=== PATIENT | female | born 1955 | race Caucasian/White ===

== ENCOUNTER 2016-06-28 21:20 | Emergency (ER) | payer OTHER ==
[2016-06-28 21:29] VITALS: BP 135/83; PULSE 83; TEMP 98; BMI 25.6
--- NOTE | 2016-06-28 21:31 | PDOC ---
Rapid Medical Evaluation Chief Complaint: Respiratory Time Seen by Provider: 06/28/16 21:30 Medical Evaluation: Allergies Allergy/AdvReac Type Severity Reaction Status Date / Time levofloxacin [From Levaquin] Allergy Mild Itching Verified 06/28/16 21:28 Vital Signs Temp Pulse Resp BP Pulse Ox 98 F 83 18 135/83 94 L 06/28/16 21:28 06/28/16 21:28 06/28/16 21:28 06/28/16 21:28 06/28/16 21:28 06/28/16 21:30 I have performed a brief in-person evaluation of this patient. The patient presents with a chief complaint of: copd exacerbation, back pain Pertinent physical exam findings: + wheezing diffusely I have ordered the following: cxr, cbc, cmp, troponin The patient will proceed to the ED for further evaluation.
[2016-06-28 21:56] LABS: BASOPHIL 0.7 % (0-2.0); EOSINOPHIL 2.4 % (0-4.5); MCH 29.9 pg (25.7-33.7); MCHC 33.8 g/dl (32.0-36.0); MEAN CELL VOLUME 88.5 fl (80-96); MEAN PLT VOLUME 7.5 fl (7.5-11.1); NEUTROPHILS 70.7 % (42.8-82.8); PLATELET COUNT 314 K/MM3 (134-434); RDW 18.2 % (11.6-15.6)
[2016-06-28] MEDS ORDERED: ALBUTEROL SO4 2.5/IPRATROPIUM 0.5 INH SOL 3 ML VIAL.NEB. NEB STA ×3 (22:27→23:26)
--- NOTE | 2016-06-28 22:27 | PDOC ---
History of Present Illness - General History Source: Patient Exam Limitations: No Limitations - History of Present Illness Initial Comments: 06/28/16 22:34 The patient is a 61 year old female with significant past medical history of multiple visits emergency department secondary to drug seeking behavior, COPD, asthma, hypertension, hyperlipidemia, CAD, hypothyroidism, renal colic, renal insufficiency, anemia, ovarian CA, anxiety, and depression who presents to the ED with copd exacerbation secondary to continuation of smoking. Patient reports having worsening SOB and right upper thoracic pain. The patient denies fever, chills, cough, diaphoresis, and chest pain. The patient denies abdominal pain, nausea, vomiting, and diarrhea. Allergies: levofloxacin Social History: Current smoker (PPD for 30+ years) Past Surgical History: B/L hip replacement PCP: Dr. Callie Landry <Mame Barahona - Last Filed: 06/28/16 22:34> - General History Source: Patient <Denis De Paz - Last Filed: 06/29/16 01:56> - General Chief Complaint: Respiratory Stated Complaint: SHORTNESS OF BREATH Time Seen by Provider: 06/28/16 21:30 Past History <Mame Barahona - Last Filed: 06/28/16 22:34> - Past Medical History Anemia: Yes Asthma: Yes Cancer: Yes (ovarian) Cardiac Disorders: Yes CVA: No COPD: Yes (chronic bronchitis) CHF: No Dementia: No Diabetes: No GI Disorders: Yes (bleeding ulcer) Disorders: Yes (KIDNEY STONE;) HTN: Yes Hypercholesterolemia: Yes Kidney Stones: Yes Liver Disease: No Psychiatric Problems: Yes (ANXIETY, DEPRESSION) Suicide Attempt (Hx): No Seizures: No Thyroid Disease: Yes (hypothyroid) - Surgical History Abdominal Surgery: No Appendectomy: No Cardiac Surgery: No Cholecystectomy: No Lung Surgery: No Neurologic Surgery: No Orthopedic Surgery: Yes (B/L hip replacement) - Immunization History Td Vaccination: Yes TDAP Vaccination: No Immunization Up to Date: Yes - Psycho/Social/Smoking Cessation Hx Anxiety: Yes Suicidal Ideation: No Smoking Status: Yes Smoking History: Current every day smoker Years of Tobacco Use: 30 Have you smoked in the past 12 months: Yes Number of Cigarettes Smoked Daily: 5 If you are a former smoker, when did you quit?: refused booklet 07/21/14 Cigars Per Day: 0 Information on smoking cessation initiated: Yes 'Breaking Loose' booklet given: 06/28/16 Hx Alcohol Use: No Drug/Substance Use Hx: No Substance Use Type: None Hx Substance Use Treatment: No <BaldevDenis - Last Filed: 06/29/16 01:56> - Past Medical History Allergies/Adverse Reactions: Allergies Allergy/AdvReac Type Severity Reaction Status Date / Time levofloxacin [From Levaquin] Allergy Mild Itching Verified 06/28/16 21:28 Home Medications: Ambulatory Orders Diltiazem [Cardizem -] 30 mg PO TID 01/14/16 Fluticasone/Salmeterol [Advair 250-50 Diskus] 1 puff PO BID 01/14/16 Simvastatin [Zocor -] 20 mg PO HS 01/14/16 Aspirin Coated [Ecotrin -] 81 mg PO DAILY tablet.ec 01/16/16 Albuterol Sulfate Inhaler - [Ventolin HFA Inhaler -] 2 inh PO Q4H PRN #2 inhaler MDD 6 03/28/16 Oxycodone HCl/Acetaminophen [Percocet 5-325 mg Tablet] 1 tab PO Q4H PRN #11 tablet MDD 4 03/28/16 Review of Systems - Review of Systems Able to Perform ROS?: Yes Comments:: 06/28/16 22:34 CONSTITUTIONAL: Absent: fever, chills, diaphoresis, generalized weakness, malaise, loss of appetite HEENT: Absent: rhinorrhea, nasal congestion, throat pain, throat swelling, difficulty swallowing, mouth swelling, ear pain, eye pain, visual Changes CARDIOVASCULAR: Absent: chest pain, syncope, palpitations, irregular heart rate, lightheadedness , peripheral edema RESPIRATORY: +SOB Absent: cough, orthopnea, wheezing, stridor, hemoptysis GASTROINTESTINAL: Absent: abdominal pain, abdominal distension, nausea, vomiting, diarrhea, constipation, melena, hematochezia GENITOURINARY: Absent: dysuria, frequency, urgency, hesitancy, hematuria, flank pain, genital pain MUSCULOSKELETAL: +right upper thoracic pain Absent: joint swelling SKIN: Absent: rash, itching, pallor NEUROLOGIC: Absent: headache, focal weakness or paresthesias, dizziness, unsteady gait, seizure, mental status changes, bladder or bowel incontinence PSYCHIATRIC: Absent: anxiety, depression, suicidal or homicidal ideation, hallucinations. <Mame Barahona - Last Filed: 06/28/16 22:34> *Physical Exam - Vital Signs Last Vital Signs Temp Pulse Resp BP Pulse Ox 98 F 83 18 135/83 94 L 06/28/16 21:28 06/28/16 21:28 06/28/16 21:28 06/28/16 21:28 06/28/16 21:28 - Physical Exam Comments: 06/28/16 22:34 GENERAL: Well developed, well nourished. Awake and alert. No acute distress. HEENT: Normocephalic, atraumatic. PERRLA, EOMI. No conjunctival pallor. Sclera are non- icteric. Moist mucous membranes. Oropharynx is clear. NECK: Supple. Full ROM. No JVD. Carotid pulses 2+ and symmetric, without bruits. No thyromegaly. No lymphadenopathy. CARDIOVASCULAR: Regular rate and rhythm. No murmurs, rubs, or gallops. Distal pulses are 2+ and symmetric. PULMONARY: Mild respiratory distress. Decreased breath sounds. Diffuse wheezing. No conversational dyspnea. ABDOMINAL: Soft. Non-tender. Non-distended. No rebound or guarding. No organomegaly. Normoactive bowel sounds. MUSCULOSKELETAL Normal range of motion at all joints. No bony deformities or tenderness. No CVA tenderness. EXTREMITIES: No cyanosis. No clubbing. No edema. No calf tenderness. SKIN: Warm and dry. Normal capillary refill. No rashes. No jaundice. NEUROLOGICAL: Alert, awake, appropriate. Cranial nerves 2-12 intact. Moving all extremities. No gross focal neurological deficits. PSYCHIATRIC: Cooperative. Good eye contact. Appropriate mood and affect. <Mame Barahona - Last Filed: 06/28/16 22:34> - Vital Signs Last Vital Signs Temp Pulse Resp BP Pulse Ox 98 F 83 18 135/83 94 L 06/28/16 21:28 06/28/16 21:28 06/28/16 21:28 06/28/16 21:28 06/28/16 21:28 <Denis De Paz - Last Filed: 06/29/16 01:56> Heart Score/ECG Review - ECG Impressions Comment:: 06/28/16 22:35 NSR @78bpm Septal infarct, age undetermined Abnormal ECG <Mame Barahona - Last Filed: 06/28/16 22:34> ED Treatment Course - LABORATORY CBC & Chemistry Diagram: 06/28/16 21:43 06/28/16 21:43 - ADDITIONAL ORDERS Additional order review: 06/28/16 21:43 RBC 4.17 D MCV 88.5 MCHC 33.8 RDW 18.2 H MPV 7.5 Neutrophils % 70.7 Lymphocytes % 19.3 D Monocytes % 6.9 Eosinophils % 2.4 D Basophils % 0.7 <Mame Barahona - Last Filed: 06/28/16 22:34> - LABORATORY CBC & Chemistry Diagram: 06/28/16 21:43 06/28/16 21:43 - ADDITIONAL ORDERS Additional order review: 06/28/16 21:43 RBC 4.17 D MCV 88.5 MCHC 33.8 RDW 18.2 H MPV 7.5 Neutrophils % 70.7 Lymphocytes % 19.3 D Monocytes % 6.9 Eosinophils % 2.4 D Basophils % 0.7 <Denis De Paz - Last Filed: 06/29/16 01:56> Medical Decision Making - Medical Decision Making 06/29/16 01:56 Dr. De Paz: The scribe's documentation has been prepared under my direction and personally reviewed by me in its entirery. I confirm that the note above accurately reflects all work, treatment, procedures, and medical decision making performed by me. <Denis De Paz - Last Filed: 06/29/16 01:56> *DC/Admit/Observation/Transfer - Attestations Scribe Attestion: 06/28/16 22:35 Documentation prepared by Mame Barahona, acting as medical office administrator for Denis De Paz MD <Mame Barahona - Last Filed: 06/28/16 22:34> - Discharge Dispostion Admit: No <Denis De Paz - Last Filed: 06/29/16 01:56> Diagnosis at time of Disposition: Asthma exacerbation - Discharge Dispostion Disposition: HOME Condition at time of disposition: Stable - Referrals Referrals: Callie Landry [Primary Care Provider] - - Patient Instructions Printed Discharge Instructions: DI for Chronic Bronchitis
[2016-06-28] MEDS ORDERED: predniSONE 20 MG TABLET (UD) PO ONE (22:28)
[2016-06-28] MEDS ORDERED: OXYCODONE/APAP 5/325MG COMBO TABLET PO ONE (22:28)
[2016-06-28 22:31] LABS: ALBUMIN 3.9 g/dl (3.4-5.0); ANION GAP 11 (8-16); BILIRUBIN,TOTAL 0.6 mg/dL (0.2-1.0); CALCIUM 9.1 mg/dL (8.5-10.1); CO2 23 mmol/L (21-32); CREATININE 3.3 mg/dL (0.55-1.02); GLUCOSE,RANDOM 96 mg/dL (74-106); SGOT/AST 14 U/L (15-37); SGPT/ALT 19 U/L (12-78)
[2016-06-28 22:33] LABS: ALK PHOS 157 U/L (45-117); TROPONIN I < 0.02 ng/ml (0.00-0.05)
[2016-06-29] MEDS ORDERED: OXYCODONE/APAP 5/325MG COMBO TABLET PO ONE (01:13)
[2016-06-29] MEDS ORDERED: ALBUTEROL SO4 2.5/IPRATROPIUM 0.5 INH SOL 3 ML VIAL.NEB. NEB STA (01:13)
--- NOTE | 2016-06-29 09:56 | EKG ---
Test Reason : Blood Pressure : / mmHG Vent. Rate : 078 BPM Atrial Rate : 078 BPM P-R Int : 184 ms QRS Dur : 078 ms QT Int : 388 ms P-R-T Axes : 048 016 092 degrees QTc Int : 442 ms NORMAL SINUS RHYTHM SEPTAL INFARCT (CITED ON OR BEFORE 13-JAN-2016) NONSPECIFIC T WAVE ABNORMALITY WHEN COMPARED WITH ECG OF 13-JAN-2016 07:47, NO SIGNIFICANT CHANGE WAS FOUND Confirmed by JAKY LU MD ([id number]) on 06/29/2016 9:56:09 AM Referred By: Confirmed By:JAKY LU MD
== END 2016-06-29 02:14 | disposition home or self-care (01) ==
LOC: JER 21:20
PROC: 3E0F7GC Introduction of Other Therapeutic Substance into Respiratory Tract, Via Natural or Artificial Opening (ICD-10-PCS; principal; 2016-06-28)
PROC: 3E0F7GC Introduction of Other Therapeutic Substance into Respiratory Tract, Via Natural or Artificial Opening (ICD-10-PCS; 2016-06-28)
PROC: 3E0F7GC Introduction of Other Therapeutic Substance into Respiratory Tract, Via Natural or Artificial Opening (ICD-10-PCS; 2016-06-28)
DX: J44.1 Chronic obstructive pulmonary disease with (acute) exacerbation (principal); F17.210 Nicotine dependence, cigarettes, uncomplicated; I25.10 Atherosclerotic heart disease of native coronary artery without angina pectoris; I10 Essential (primary) hypertension; E78.00 Pure hypercholesterolemia, unspecified; E78.5 Hyperlipidemia, unspecified; E03.9 Hypothyroidism, unspecified; F41.9 Anxiety disorder, unspecified
CPT/HCPCS: 36415; 71020-TC; 80053; 82550; 83605; 84484; 85025; 93005; 93010; 99282-25

== ENCOUNTER 2016-07-18 19:29 | Emergency (ER) | payer OTHER ==
[2016-07-18 19:53] VITALS: BP 111/77; PULSE 89; TEMP 98; BMI 23.8
[2016-07-18] MEDS ORDERED: KETOROLAC TROMETHAMINE 60 MG/2 ML VIAL IM ONE (20:16)
[2016-07-18] MEDS ORDERED: traMADol HCL 50 MG TABLET PO ONE (20:17)
--- NOTE | 2016-07-18 20:22 | PDOC ---
History of Present Illness - General Chief Complaint: Chronic pain Stated Complaint: BACK PAIN Time Seen by Provider: 07/18/16 20:10 History Source: Patient - History of Present Illness Occurred: reports: yesterday Pain Location: reports: back Past History - Past Medical History Allergies/Adverse Reactions: Allergies Allergy/AdvReac Type Severity Reaction Status Date / Time levofloxacin [From Levaquin] Allergy Mild Itching Verified 07/18/16 19:50 Home Medications: Ambulatory Orders Diltiazem [Cardizem -] 30 mg PO TID 01/14/16 Fluticasone/Salmeterol [Advair 250-50 Diskus] 1 puff PO BID 01/14/16 Simvastatin [Zocor -] 20 mg PO HS 01/14/16 Aspirin Coated [Ecotrin -] 81 mg PO DAILY tablet.ec 01/16/16 Albuterol Sulfate Inhaler - [Ventolin HFA Inhaler -] 2 inh PO Q4H PRN #2 inhaler MDD 6 03/28/16 Cyclobenzaprine HCl [Flexeril 10 mg] 10 mg PO TID PRN #9 tablet 07/18/16 Ibuprofen [Motrin -] 800 mg PO Q6H #30 tablet 07/18/16 Lidocaine 5% Patch [Lidoderm Patch -] 1 patch TP DAILY #30 patch 07/18/16 Anemia: Yes Asthma: Yes Cancer: Yes (ovarian) Cardiac Disorders: Yes CVA: No COPD: Yes (chronic bronchitis) CHF: No Dementia: No Diabetes: No GI Disorders: Yes (bleeding ulcer) Disorders: Yes (KIDNEY STONE;) HTN: Yes Hypercholesterolemia: Yes Kidney Stones: Yes Liver Disease: No Psychiatric Problems: Yes (ANXIETY, DEPRESSION) Suicide Attempt (Hx): No Seizures: No Thyroid Disease: Yes (hypothyroid) - Surgical History Abdominal Surgery: No Appendectomy: No Cardiac Surgery: No Cholecystectomy: No Lung Surgery: No Neurologic Surgery: No Orthopedic Surgery: Yes (B/L hip replacement) - Immunization History Td Vaccination: Yes TDAP Vaccination: No Immunization Up to Date: Yes - Psycho/Social/Smoking Cessation Hx Anxiety: Yes Suicidal Ideation: No Smoking Status: Yes Smoking History: Current every day smoker Years of Tobacco Use: 30 Have you smoked in the past 12 months: Yes Number of Cigarettes Smoked Daily: 5 If you are a former smoker, when did you quit?: refused booklet 07/21/14 Cigars Per Day: 0 Information on smoking cessation initiated: No 'Breaking Loose' booklet given: 06/28/16 Hx Alcohol Use: No Drug/Substance Use Hx: No Substance Use Type: None Hx Substance Use Treatment: No Trauma Specific PMHX - Complaint Specific PMHX Arthritis: Yes Back Injury: No Review of Systems - Review of Systems Constitutional: No: Chills, Fever ABD/GI: No: Nausea, Vomiting : Yes: Frequency. No: Burning, Dysuria, Flank Pain, Hematuria Musculoskeletal: Yes: Back Pain Neurological: No: Numbness, Tingling, Weakness *Physical Exam - Vital Signs Last Vital Signs Temp Pulse Resp BP Pulse Ox 98 F 89 16 111/77 95 07/18/16 19:52 07/18/16 19:52 07/18/16 19:52 07/18/16 19:52 07/18/16 19:52 - Physical Exam General Appearance: Yes: Appropriately Dressed, Moderate Distress HEENT: positive: Normal Voice Neck: positive: Supple Respiratory/Chest: negative: Respiratory Distress Gastrointestinal/Abdominal: positive: Soft. negative: Tender Musculoskeletal: positive: Vertebral Tenderness (to lower back diffusely). negative: CVA Tenderness Integumentary: positive: Dry, Warm Neurologic: positive: Fully Oriented, Alert, Normal Mood/Affect Medical Decision Making - Medical Decision Making 60-year-old female history of asthma, chronic back pain, herniated disc to lumbar spine on MRI as per pt, follows up with pain management at [facility], numerous ED visits for back pain, presents with worsening of her usual back pain since last night. Pain located to lower back, sharp in nature with an intensity of 10 out of 10 and does not radiate. No lower extremity weakness, saddle anesthesia or bowel or bladder incontinence. States she does not have any pain medication at home. Has been on Percocet in the past. Patient also complaining of ? urinary frequency times several days. No dysuria oherwise and no hematuria, nausea, vomiting, fever or chills. See exam Acute on chronic back pain Numerous ED visits for same Herniated disc on prior MRI F/u pain management at [facility] Ran out of pain meds No e/o cauda equina on exam -pain control -reassess ?urinary freq, no dysuria, flank pain, n/v/f/c and no e/o pyelo on exam -r/o uti 07/18/16 21:06 Pt reports improvement w/ meds. Will dc to f/u with pain management doc. +trace le on ua. Will hold off on abx and wait for ucx *DC/Admit/Observation/Transfer Diagnosis at time of Disposition: Low back pain - Discharge Dispostion Disposition: HOME Condition at time of disposition: Improved - Prescriptions Prescriptions: Cyclobenzaprine HCl [Flexeril 10 mg] 10 mg PO TID PRN #9 tablet PRN Reason: Back Pain Lidocaine 5% Patch [Lidoderm Patch -] 1 patch TP DAILY #30 patch Ibuprofen [Motrin -] 800 mg PO Q6H #30 tablet - Referrals Referrals: Callie Landry [Primary Care Provider] - - Patient Instructions Printed Discharge Instructions: Low Back Pain Additional Instructions: Take medications as directed and please follow-up with your pain management doctor at [facility]
[2016-07-18] MEDS ORDERED: KETOROLAC TROMETHAMINE 60 MG/2 ML VIAL ONE (20:26)
[2016-07-18] MEDS ORDERED: traMADol HCL 50 MG TABLET ONE (20:26)
[2016-07-18 20:54] LABS: URINE APPEARANCE CLEAR; URINE BILIRUBIN NEGATIVE (NEGATIVE); URINE BLOOD NEGATIVE (NEGATIVE); URINE COLOR STRAW; URINE GLUCOSE (UA) NEGATIVE (NEGATIVE); URINE KETONE NEGATIVE (NEGATIVE); URINE NITRITE NEGATIVE (NEGATIVE); URINE UROBILINOGEN NEGATIVE E.U./dl (0.2-1.0)
[2016-07-18 20:58] LABS: URINE LEUK ESTERASE TRACE (NEGATIVE); URINE PROTEIN 2+ (NEGATIVE)
[2016-07-18 20:59] LABS: URINE MUCUS RARE; URINE RBC 1 /hpf (0-3); URINE WBC 12 /hpf (3-5)
== END 2016-07-18 21:17 | disposition home or self-care (01) ==
LOC: JER 19:29 → JERFT 19:29
PROC: 3E0233Z Introduction of Anti-inflammatory into Muscle, Percutaneous Approach (ICD-10-PCS; principal; 2016-07-18)
DX: M54.5 Low back pain (principal); G89.29 Other chronic pain; I10 Essential (primary) hypertension; E78.00 Pure hypercholesterolemia, unspecified; E03.9 Hypothyroidism, unspecified; J45.909 Unspecified asthma, uncomplicated; J42 Unspecified chronic bronchitis; F17.210 Nicotine dependence, cigarettes, uncomplicated; F41.8 Other specified anxiety disorders
CPT/HCPCS: 81003; 81015; 87086; 99281-25

== ENCOUNTER 2016-08-29 10:08 | Emergency (ER) | payer OTHER ==
[2016-08-29 10:15] VITALS: BP 127/80; PULSE 87; TEMP 99.6; BMI 21.6
--- NOTE | 2016-08-29 11:35 | PDOC ---
History of Present Illness - General Chief Complaint: Back Pain Stated Complaint: BACK PAIN Time Seen by Provider: 08/29/16 10:31 History Source: Patient Exam Limitations: No Limitations - History of Present Illness Initial Comments: 08/29/16 11:35 She well-known to this emergency department comes in with home health attendant with complaints of chronic back pain. Patient is involved in a pain management program but does not remember name of physician, states has not seen him for some time and has run out of her pain medications. Patient states has used Percocet in the past. Is not taking any medications currently. Has not tried to alleviate this current exacerbation and did not contact her private physician' s. Denies fever, ear or throat pain, no cough or URI. Denies nausea vomiting diarrhea or constipation, denies urinary complaints. Denies any recent trauma or exercise changes. States this back pain is her classic chronic back pain without any changes or worsening. Severity: reports: mild, moderate Pain Location: reports: back Method of Injury: Yes: unknown Associated Symptoms (Fall): denies symptoms Past History - Travel Traveled outside of the country in the last 30 days: No Close contact w/someone who was outside of country & ill: No - Past Medical History Allergies/Adverse Reactions: Allergies Allergy/AdvReac Type Severity Reaction Status Date / Time levofloxacin [From Levaquin] Allergy Mild Itching Verified 08/29/16 10:13 Home Medications: Ambulatory Orders Diltiazem [Cardizem -] 30 mg PO TID 01/14/16 Fluticasone/Salmeterol [Advair 250-50 Diskus] 1 puff PO BID 01/14/16 Simvastatin [Zocor -] 20 mg PO HS 01/14/16 Aspirin Coated [Ecotrin -] 81 mg PO DAILY tablet.ec 01/16/16 Albuterol Sulfate Inhaler - [Ventolin HFA Inhaler -] 2 inh PO Q4H PRN #2 inhaler MDD 6 03/28/16 Cyclobenzaprine HCl [Flexeril 10 mg] 10 mg PO TID PRN #9 tablet 07/18/16 Ibuprofen [Motrin -] 800 mg PO Q6H #30 tablet 07/18/16 Lidocaine 5% Patch [Lidoderm Patch -] 1 patch TP DAILY #30 patch 07/18/16 Anemia: Yes Asthma: Yes Cancer: Yes (ovarian) Cardiac Disorders: Yes CVA: No COPD: Yes (chronic bronchitis) CHF: No Dementia: No Diabetes: No GI Disorders: Yes (bleeding ulcer) Disorders: Yes (KIDNEY STONE;) HTN: Yes Hypercholesterolemia: Yes Kidney Stones: Yes Liver Disease: No Psychiatric Problems: Yes (ANXIETY, DEPRESSION) Suicide Attempt (Hx): No Seizures: No Thyroid Disease: Yes (hypothyroid) - Surgical History Abdominal Surgery: No Appendectomy: No Cardiac Surgery: No Cholecystectomy: No Lung Surgery: No Neurologic Surgery: No Orthopedic Surgery: Yes (B/L hip replacement) - Immunization History Td Vaccination: Yes TDAP Vaccination: No Immunization Up to Date: Yes - Psycho/Social/Smoking Cessation Hx Anxiety: Yes Suicidal Ideation: No Smoking Status: Yes Smoking History: Current every day smoker Years of Tobacco Use: 30 Have you smoked in the past 12 months: Yes Number of Cigarettes Smoked Daily: 6 If you are a former smoker, when did you quit?: refused booklet 07/21/14 Cigars Per Day: 0 Information on smoking cessation initiated: No 'Breaking Loose' booklet given: 06/28/16 Hx Alcohol Use: No Drug/Substance Use Hx: No Substance Use Type: None Hx Substance Use Treatment: No Trauma Specific PMHX - Complaint Specific PMHX Arthritis: Yes Back Injury: No Review of Systems - Review of Systems Able to Perform ROS?: Yes Is the patient limited Mongolian proficient: Yes Constitutional: Yes: Symptoms Reported, See HPI, Malaise. No: Chills, Fever HEENTM: Yes: See HPI. No: Symptoms Reported Respiratory: Yes: Symptoms reported, See HPI. No: Cough Musculoskeletal: Yes: Symptoms Reported, See HPI, Back Pain, Muscle Weakness Neurological: Yes: Symptoms reported, See HPI. No: Numbness, Paresthesia All Other Systems: Reviewed and Negative *Physical Exam - Vital Signs Last Vital Signs Temp Pulse Resp BP Pulse Ox 99.6 F 87 20 127/80 95 08/29/16 10:13 08/29/16 10:13 08/29/16 10:13 08/29/16 10:13 08/29/16 10:13 - Physical Exam General Appearance: Yes: Appropriately Dressed, Apparent Distress, Mild Distress HEENT: positive: TEO, Normal ENT Inspection, TMs Normal, Pharynx Normal Neck: positive: Supple. negative: Tender, Lymphadenopathy (R), Lymphadenopathy (L) Gastrointestinal/Abdominal: positive: Normal Bowel Sounds, Soft. negative: Tender Musculoskeletal: positive: Decreased Range of Motion, Vertebral Tenderness ( lumbar spine. ). negative: CVA Tenderness, CVA Tenderness (R) Extremity: positive: Normal Inspection. 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 And understands no narcotic medications will be dispensed today. *DC/Admit/Observation/Transfer Diagnosis at time of Disposition: Chronic back pain Qualifiers: Back pain location: low back pain Back pain laterality: unspecified Sciatica presence: without sciatica Qualified Code(s): M54.5 - Low back pain - Discharge Dispostion Disposition: HOME Condition at time of disposition: Stable Admit: No - Referrals Referrals: Callie Landry [Primary Care Provider] - - Patient Instructions Printed Discharge Instructions: Managing Chronic Low Back Pain Additional Instructions: You need to be seen by her pain management physician for reevaluation, possible further testing, and treatment. Do not come to the emergency department for refills of pain medications as the pain management program forbids this
[2016-08-29 11:56] LABS: URINE APPEARANCE CLEAR; URINE BILIRUBIN NEGATIVE (NEGATIVE); URINE BLOOD NEGATIVE (NEGATIVE); URINE COLOR STRAW; URINE GLUCOSE (UA) 1+ (NEGATIVE); URINE KETONE NEGATIVE (NEGATIVE); URINE NITRITE NEGATIVE (NEGATIVE); URINE UROBILINOGEN NEGATIVE E.U./dl (0.2-1.0)
[2016-08-29 12:18] LABS: URINE LEUK ESTERASE TRACE (NEGATIVE); URINE PROTEIN 2+ (NEGATIVE)
[2016-08-29 12:29] LABS: URINE RBC <1 /hpf (0-3); URINE WBC 3 /hpf (3-5)
== END 2016-08-29 12:51 | disposition home or self-care (01) ==
LOC: JERFT 10:08
PROC: 3E0233Z Introduction of Anti-inflammatory into Muscle, Percutaneous Approach (ICD-10-PCS; principal; 2016-08-29)
DX: M54.5 Low back pain (principal); G89.29 Other chronic pain; D64.9 Anemia, unspecified; J45.909 Unspecified asthma, uncomplicated; J44.9 Chronic obstructive pulmonary disease, unspecified; I10 Essential (primary) hypertension; E78.00 Pure hypercholesterolemia, unspecified; E03.9 Hypothyroidism, unspecified; F41.8 Other specified anxiety disorders; F17.210 Nicotine dependence, cigarettes, uncomplicated
CPT/HCPCS: 81003; 81015; 96372; 99281-25

== ENCOUNTER → 2016-09-01 | Emergency (ER) | payer OTHER ==
[~2016-09-01] MED LIST: traMADol HCL 50 MG TABLET ONE; traMADol HCL 50 MG TABLET PO ONE
[2016-09-01 13:09] VITALS: TEMP 98.7; BMI 23.3
--- NOTE | 2016-09-01 13:20 | PDOC ---
History of Present Illness - General History Source: Patient, Family Exam Limitations: No Limitations - History of Present Illness Initial Comments: 09/01/16 13:26 The patient is a 61-year-old woman with a significant past medical history of chronic obstructive pulmonary disease, asthma (not dependent on home O2) hypertension, hypercholesterolemia, coronary artery disease, hypothyroidism, kidney stones, anemia, ovarian Ca, anxiety, depression who presents to the emergency department via EMS for further evaluation of shortness of breath. En route, EMS administered 3 Duoneb and steroids with significant improvement of her shortness of breath. As per patient, she reports endorsing an intermittent productive cough with yellow sputum, approximately 2 days ago. She states her symptoms worsen, as she feels short of breath. She feels as if this is another episode of COPD exacerbation, as she reports similar symptoms in the past. She denies any associated symptoms of fever, chills, generalized weakness, chest pain, lightheadedness, dizziness, palpitations, headaches,leg pain/swelling, nausea, vomiting, diarrhea. Allergies: Levofloxacin Past Surgical History: Bilateral hip replacement Social History: Current everyday cigarette smoker. No EtOH and recreational drug use. Primary Care Physician: Dr. Callie Landry <Ellie Crouch - Last Filed: 09/01/16 15:15> <Jose Tesfaye - Last Filed: 09/01/16 15:30> - General Chief Complaint: Shortness of Breath Stated Complaint: TROUBLE BREATHING Time Seen by Provider: 09/01/16 13:04 Past History <Ellie Crouch - Last Filed: 09/01/16 15:15> - Past Medical History Anemia: Yes Asthma: Yes Cancer: Yes (ovarian) Cardiac Disorders: Yes CVA: No COPD: Yes (chronic bronchitis) CHF: No Dementia: No Diabetes: No GI Disorders: Yes (bleeding ulcer) Disorders: Yes (KIDNEY STONE;) HTN: Yes Hypercholesterolemia: Yes Kidney Stones: Yes Liver Disease: No Psychiatric Problems: Yes (ANXIETY, DEPRESSION) Suicide Attempt (Hx): No Seizures: No Thyroid Disease: Yes (hypothyroid) - Surgical History Abdominal Surgery: No Appendectomy: No Cardiac Surgery: No Cholecystectomy: No Lung Surgery: No Neurologic Surgery: No Orthopedic Surgery: Yes (B/L hip replacement) - Immunization History Td Vaccination: Yes TDAP Vaccination: No Immunization Up to Date: Yes - Psycho/Social/Smoking Cessation Hx Anxiety: Yes Suicidal Ideation: No Smoking Status: Yes Smoking History: Current every day smoker Years of Tobacco Use: 30 Have you smoked in the past 12 months: Yes Number of Cigarettes Smoked Daily: 6 If you are a former smoker, when did you quit?: refused booklet 07/21/14 Cigars Per Day: 0 Information on smoking cessation initiated: Yes 'Breaking Loose' booklet given: 06/28/16 Hx Alcohol Use: No Drug/Substance Use Hx: No Substance Use Type: None Hx Substance Use Treatment: No <Jose Tesfaye - Last Filed: 09/01/16 15:30> - Past Medical History Allergies/Adverse Reactions: Allergies Allergy/AdvReac Type Severity Reaction Status Date / Time levofloxacin [From Levaquin] Allergy Mild Itching Verified 08/29/16 10:13 Home Medications: Ambulatory Orders Diltiazem [Cardizem -] 30 mg PO TID 01/14/16 Fluticasone/Salmeterol [Advair 250-50 Diskus] 1 puff PO BID 01/14/16 Simvastatin [Zocor -] 20 mg PO HS 01/14/16 Aspirin Coated [Ecotrin -] 81 mg PO DAILY tablet.ec 01/16/16 Albuterol Sulfate Inhaler - [Ventolin HFA Inhaler -] 2 inh PO Q4H PRN #2 inhaler MDD 6 03/28/16 Cyclobenzaprine HCl [Flexeril 10 mg] 10 mg PO TID PRN #9 tablet 07/18/16 Ibuprofen [Motrin -] 800 mg PO Q6H #30 tablet 07/18/16 Lidocaine 5% Patch [Lidoderm Patch -] 1 patch TP DAILY #30 patch 07/18/16 Prednisone [Deltasone -] 40 mg PO DAILY #8 tablet 09/01/16 Respiratory Specific PMHX - Complaint Specific PMHX Angina: No Bronchitis: Yes Pneumonia: Yes <Jose Tesfaye - Last Filed: 09/01/16 15:30> Review of Systems - Review of Systems Able to Perform ROS?: Yes Comments:: 09/01/16 13:26 CONSTITUTIONAL: No reported: Fever, Chills, Diaphoresis, Generalized Weakness, Malaise, Loss of Appetite HEENT: No reported: Rhinorrhea, Nasal Congestion, Throat Pain, Throat Swelling, Difficulty Swallowing, Mouth Swelling, Ear Pain, Eye Pain, Visual Changes CARDIOVASCULAR: No reported: Chest Pain, Syncope, Palpitations, Irregular Heart Rate, Lightheadedness, Peripheral Edema RESPIRATORY: Reported: Cough. Shortness of Breath. No reported: SOB with Exertion, Orthopnea , Wheezing, Stridor, Hemoptysis GASTROINTESTINAL: No reported: Abdominal pain, Abdominal Distension, Nausea, Vomiting, Diarrhea, Constipation, Melena, Hematochezia GENITOURINARY: No reported: Dysuria, Frequency, Urgency, Hesitancy, Flank Pain, Genital Pain MUSCULOSKELETAL: No reported: Myalgia, Arthralgia, Joint Swelling, Back pain, Neck Pain SKIN: No reported: Rash, Itching, Pallor HEMEATOLOGIC/IMMUNOLOGIC: No reported: Easy Bleeding, Easy Bruising, Lymphadenopathy, Frequent infections ENDOCRINE: No reported: Unexplained Weight Gain, Unexplained Weight Loss, Heat Intolerance , Cold Intolerance NEUROLOGIC: No reported: Headache, Focal Weakness, Paresthesias, Vertigo, Lightheadedness, Unsteady Gait, Seizure, Mental Status Changes, Incontinence PSYCHIATRIC: No reported: Anxiety, Depression <Ellie Crouch - Last Filed: 09/01/16 15:15> *Physical Exam - Vital Signs Last Vital Signs Temp Pulse Resp BP Pulse Ox 98.7 F 86 20 123/87 96 09/01/16 13:03 09/01/16 13:03 09/01/16 13:03 09/01/16 13:03 09/01/16 13:03 - Physical Exam Comments: 09/01/16 13:26 GENERAL: The patient is awake, alert, and fully oriented, Nontoxic - in no acute distress. HEAD: Normocephalic, atraumatic. EYES: extraocular movements intact, sclera anicteric, conjunctiva clear. ENT: Normal voice, Moist mucous membranes. NECK: Normal range of motion, supple LUNGS: Breath sounds equal, clear to auscultation bilaterally. No wheezes, no rhonchi, no rales. HEART: Regular rate and rhythm, without murmur, rub or gallop. ABDOMEN: Soft, nontender, normoactive bowel sounds. No guarding, no rebound.No CVA tenderness EXTREMITIES: Normal range of motion, no edema. no calf tenderness NEUROLOGICAL: No facial assymetry, Normal speech, PSYCH: Normal mood, normal affect. SKIN: Warm, Dry, normal turgor. <Ellie Crouch - Last Filed: 09/01/16 15:15> - Vital Signs Last Vital Signs Temp Pulse Resp BP Pulse Ox 98.7 F 86 20 123/87 96 09/01/16 13:03 09/01/16 13:03 09/01/16 13:03 09/01/16 13:03 09/01/16 13:03 <Jose Tesfaye - Last Filed: 09/01/16 15:30> ED Treatment Course - RADIOLOGY Radiograph Interpretation: 09/01/16 15:14 EXAM: RAD/CHEST PA LAT CHEST Interpreted by Dr. Forrest Balbuena IMPRESSION: Pneumonia 2 views reveal little change since 06/28/2016. There is no sign of infiltrate or failure. There is linear scarring at the right base with old right rib trauma and blunting of the left angle. The mediastinum is not widened. There is a previous kyphoplasty procedure for a partially compressed vertebral body. <Ellie Crouch - Last Filed: 09/01/16 15:15> Medical Decision Making - Medical Decision Making 09/01/16 13:29 61y F hx of copd/asthma, anemia, thyroid disease, and other medical problems presents to [facility] with complaining of worsening cough productive of yellowish sputum for the past 2 days, w/o fever/chills, hemoptysis, leg sewlling, orthopnea, cp and rec 3 combivents enrougte and dexamethasone. on exam pt wel lappearing in no distress with clear lungs. suspect viral syndrome exacerbating her copd will obtain xray to r/o pna will give tramadol for pts chronic back pain 09/01/16 15:28 pt feeling improved will admit the pt with pmd fu will give her rx for prednisone return precautions were discussed I discussed the physical exam findings, ancillary test results and final diagnoses with the patient. I answered all of the patient's questions. The patient was satisfied with the care received and felt comfortable with the discharge plan and treatment plan. The patient will call their primary care physician within 24 hours to arrange follow-up and will return to the Emergency Department with any new, persistent or worsening symptoms. <Jose Tesfaye - Last Filed: 05/13/17 15:30> *DC/Admit/Observation/Transfer - Attestations Scribe Attestion: 09/01/16 13:26 Documentation prepared by Ellie Crouch, acting as medical radiation therapist for Jose Tesfaye MD. <Ellie Crouch - Last Filed: 09/01/16 15:15> - Discharge Dispostion Admit: No <Jose Tesfaye - Last Filed: 09/01/16 15:30> Diagnosis at time of Disposition: Asthma exacerbation - Discharge Dispostion Disposition: HOME Condition at time of disposition: Improved - Referrals Referrals: Callie Landry [Primary Care Provider] - - Patient Instructions Printed Discharge Instructions: DI for Chronic Obstructive Pulmonary Disease Additional Instructions: Return to the emergency department immediately with ANY new, persistent or worsening symptoms. You MUST call and follow up with your doctor tomorrow for further evaluation of your symptoms. Results were discussed with you. Please make sure your doctor reviews the results of your emergency evaluation. If you had any xrays during your visit, it was read preliminarily by myself, a Radiologist will review it and if there are any additional findings we will call you.
[2016-09-01 15:54] VITALS: BP 126/76; PULSE 80
== END | disposition home or self-care (01) ==
LOC: JER 12:47
DX: J44.1 Chronic obstructive pulmonary disease with (acute) exacerbation (principal); J45.901 Unspecified asthma with (acute) exacerbation; I25.10 Atherosclerotic heart disease of native coronary artery without angina pectoris; I10 Essential (primary) hypertension; E03.9 Hypothyroidism, unspecified; D64.9 Anemia, unspecified; F41.8 Other specified anxiety disorders; Z87.442 Personal history of urinary calculi
CPT/HCPCS: 71020-TC; 99282-25

== ENCOUNTER 2016-10-08 23:47 | Emergency (ER) | payer OTHER ==
[2016-10-09 00:10] VITALS: BP 121/85; PULSE 81; TEMP 98.7; BMI 27.4
[2016-10-09] MEDS ORDERED: OXYCODONE/APAP 5/325MG COMBO TABLET PO ONE (01:30)
[2016-10-09] MEDS ORDERED: ALBUTEROL SO4 2.5/IPRATROPIUM 0.5 INH SOL 3 ML VIAL.NEB. NEB STA (01:30)
--- NOTE | 2016-10-09 01:30 | PDOC ---
History of Present Illness - General History Source: Patient Exam Limitations: No Limitations - History of Present Illness Initial Comments: 10/09/16 01:53 The patient is a 61 year old female with significant past medical history of multiple visits emergency department secondary to drug seeking behavior, COPD, asthma, hypertension, hyperlipidemia, CAD, hypothyroidism, renal colic, renal insufficiency, anemia, ovarian CA, anxiety, and depression who presents to the ED for chronic back pain. Patient also reports few days of slight dysuria, but no hematuria, urgency, or frequency. She also has complaints of diffuse body aches. The patient denies fever, chills, cough, SOB, chest pain, and palpitations. The patient denies abdominal pain, nausea, vomiting, and diarrhea. Allergies: levofloxacin Social History: Current smoker (PPD for 30+ years) Past Surgical History: B/L hip replacement PCP: Dr. Callie Landry <Mame Barahona - Last Filed: 10/09/16 01:53> - General History Source: Patient <Denis De Paz - Last Filed: 10/09/16 02:43> - General Chief Complaint: Back Pain Stated Complaint: BACK PAIN Time Seen by Provider: 10/09/16 01:28 Past History <Mame Barahona - Last Filed: 10/09/16 01:53> - Past Medical History Anemia: Yes Asthma: Yes Cancer: Yes (ovarian) Cardiac Disorders: Yes CVA: No COPD: Yes (chronic bronchitis) CHF: No Dementia: No Diabetes: No GI Disorders: Yes (bleeding ulcer) Disorders: Yes (KIDNEY STONE;) HTN: Yes Hypercholesterolemia: Yes Kidney Stones: Yes Liver Disease: No Psychiatric Problems: Yes (ANXIETY, DEPRESSION) Suicide Attempt (Hx): No Seizures: No Thyroid Disease: Yes (hypothyroid) - Surgical History Abdominal Surgery: No Appendectomy: No Cardiac Surgery: No Cholecystectomy: No Lung Surgery: No Neurologic Surgery: No Orthopedic Surgery: Yes (B/L hip replacement) - Immunization History Td Vaccination: Yes TDAP Vaccination: No Immunization Up to Date: Yes - Psycho/Social/Smoking Cessation Hx Anxiety: Yes Suicidal Ideation: No Smoking Status: Yes Smoking History: Current every day smoker Years of Tobacco Use: 30 Have you smoked in the past 12 months: Yes Number of Cigarettes Smoked Daily: 5 If you are a former smoker, when did you quit?: refused booklet 07/21/14 Cigars Per Day: 0 Information on smoking cessation initiated: Yes 'Breaking Loose' booklet given: 06/28/16 Hx Alcohol Use: No Drug/Substance Use Hx: No Substance Use Type: None Hx Substance Use Treatment: No <MachogiDenis - Last Filed: 10/09/16 02:43> - Past Medical History Allergies/Adverse Reactions: Allergies Allergy/AdvReac Type Severity Reaction Status Date / Time levofloxacin [From Levaquin] Allergy Mild Itching Verified 10/09/16 00:05 Home Medications: Ambulatory Orders Diltiazem [Cardizem -] 30 mg PO TID 01/14/16 Fluticasone/Salmeterol [Advair 250-50 Diskus] 1 puff PO BID 01/14/16 Simvastatin [Zocor -] 20 mg PO HS 01/14/16 Aspirin Coated [Ecotrin -] 81 mg PO DAILY tablet.ec 01/16/16 Albuterol Sulfate Inhaler - [Ventolin HFA Inhaler -] 2 inh PO Q4H PRN #2 inhaler MDD 6 03/28/16 Cyclobenzaprine HCl [Flexeril 10 mg] 10 mg PO TID PRN #9 tablet 07/18/16 Ibuprofen [Motrin -] 800 mg PO Q6H #30 tablet 07/18/16 Lidocaine 5% Patch [Lidoderm Patch -] 1 patch TP DAILY #30 patch 07/18/16 Prednisone [Deltasone -] 40 mg PO DAILY #8 tablet 09/01/16 Ibuprofen 800 mg PO TID #30 tablet 10/09/16 Oxycodone HCl/Acetaminophen [Percocet 5-325 mg Tablet] 1 - 2 tab PO Q6H #4 tablet MDD 4 10/09/16 Sulfamethoxazole/Trimethoprim [Bactrim Ds Tablet] 1 each PO BID #14 tablet 10/09 Review of Systems - Review of Systems Able to Perform ROS?: Yes Comments:: 10/09/16 01:53 CONSTITUTIONAL: Absent: fever, no chills, no fatigue EYES: Absent: visual changes ENT: Absent: ear pain, no sore throat CARDIOVASCULAR: Absent: chest pain, no palpitations RESPIRATORY: Absent: cough, no SOB GI: Absent: abdominal pain, no nausea, no vomiting, no constipation, no diarrhea GENITOURINARY: +dysuria Absent: no frequency, no hematuria MUSCULOSKELETAL: +back pain, diffuse body aches SKIN: Absent: rash NEURO: Absent: headache <JunMame - Last Filed: 10/09/16 01:53> *Physical Exam - Vital Signs Last Vital Signs Temp Pulse Resp BP Pulse Ox 98.7 F 81 14 121/85 97 10/09/16 00:05 10/09/16 00:05 10/09/16 00:05 10/09/16 00:05 10/09/16 00:05 - Physical Exam Comments: 10/09/16 01:54 GENERAL: Well-appearing, well-nourished. No apparent distress. HEENT: Normocephalic, atraumatic. PERRL, EOM intact. CARDIOVASCULAR: Normal S1, S2. Regular rate and rhythm. PULMONARY: Mild respiratory distress. Bilateral rhonchi and mild wheezing. ABDOMEN: Soft, non-distended, non-tender. EXTREMITIES: Normal ROM in all four extremities. No gross deformities. SKIN: Warm, dry. No rash NEUROLOGICAL: No focal neurological deficits. <JunMame - Last Filed: 10/09/16 01:53> - Vital Signs Last Vital Signs Temp Pulse Resp BP Pulse Ox 98.7 F 81 14 121/85 97 10/09/16 00:05 10/09/16 00:05 10/09/16 00:05 10/09/16 00:05 10/09/16 00:05 <Denis De Paz - Last Filed: 10/09/16 02:43> ED Treatment Course - Medications Given in the ED: ED Medications Discontinued Medications Generic Name Dose Route Start Last Admin Trade Name Freq PRN Reason Stop Dose Admin Albuterol/Ipratropium 1 amp 10/09/16 01:30 10/09/16 01:50 Duoneb - NEB 10/09/16 01:31 1 amp ONCE STA Administration Oxycodone/Acetaminophen 1 combo 10/09/16 01:30 10/09/16 01:37 Percocet 5/325 - PO 10/09/16 01:31 1 combo ONCE ONE Administration <Mame Barahona - Last Filed: 10/09/16 01:53> Medical Decision Making - Medical Decision Making 10/09/16 02:43 Dr. De Paz: The scribe's documentation has been prepared under my direction and personally reviewed by me in its entirery. I confirm that the note above accurately reflects all work, treatment, procedures, and medical decision making performed by me. <Denis De Paz - Last Filed: 10/09/16 02:43> *DC/Admit/Observation/Transfer - Attestations Scribe Attestion: 10/09/16 01:54 Documentation prepared by Mame Barahona, acting as medical billing coder for Denis De Paz MD/DO. <Mame Barahona - Last Filed: 10/09/16 01:53> - Discharge Dispostion Admit: No <Denis De Paz - Last Filed: 10/09/16 02:43> Diagnosis at time of Disposition: Chronic back pain Qualifiers: Back pain location: low back pain Back pain laterality: unspecified Sciatica presence: without sciatica Qualified Code(s): M54.5 - Low back pain; G89.29 - Other chronic pain UTI (urinary tract infection) Qualifiers: Urinary tract infection type: site unspecified Hematuria presence: without hematuria Qualified Code(s): N39.0 - Urinary tract infection, site not specified - Discharge Dispostion Disposition: HOME Condition at time of disposition: Stable - Prescriptions Prescriptions: Sulfamethoxazole/Trimethoprim [Bactrim Ds Tablet] 1 each PO BID #14 tablet Ibuprofen 800 mg PO TID #30 tablet Oxycodone HCl/Acetaminophen [Percocet 5-325 mg Tablet] 1 - 2 tab PO Q6H #4 tablet MDD 4 - Referrals Referrals: Callie Landry [Primary Care Provider] - - Patient Instructions Printed Discharge Instructions: DI for Urinary Tract Infection (UTI), DI for Low Back Pain
[2016-10-09 01:58] LABS: URINE APPEARANCE CLEAR; URINE BILIRUBIN NEGATIVE (NEGATIVE); URINE COLOR STRAW; URINE GLUCOSE (UA) NEGATIVE (NEGATIVE); URINE KETONE NEGATIVE (NEGATIVE); URINE NITRITE NEGATIVE (NEGATIVE); URINE UROBILINOGEN NEGATIVE E.U./dl (0.2-1.0)
[2016-10-09 02:21] LABS: URINE BLOOD 1+ (NEGATIVE); URINE LEUK ESTERASE 3+ (NEGATIVE); URINE PROTEIN 2+ (NEGATIVE)
[2016-10-09] MEDS ORDERED: SULFAMETHOXAZOLE/TRIMETHOPRIM 800MG/160MG D.S. TABLET PO ONE (02:35)
[2016-10-09] MEDS ORDERED: SULFAMETHOXAZOLE/TRIMETHOPRIM 800MG/160MG D.S. TABLET ONE (03:14)
== END 2016-10-09 04:30 | disposition home or self-care (01) ==
LOC: JER 23:47
PROC: 3E0F7GC Introduction of Other Therapeutic Substance into Respiratory Tract, Via Natural or Artificial Opening (ICD-10-PCS; principal; 2016-10-08)
DX: N39.0 Urinary tract infection, site not specified (principal); M54.5 Low back pain; G89.29 Other chronic pain; J44.9 Chronic obstructive pulmonary disease, unspecified; J45.909 Unspecified asthma, uncomplicated; I10 Essential (primary) hypertension; E78.5 Hyperlipidemia, unspecified; E03.9 Hypothyroidism, unspecified; I25.10 Atherosclerotic heart disease of native coronary artery without angina pectoris; Z85.43 Personal history of malignant neoplasm of ovary; F41.8 Other specified anxiety disorders
CPT/HCPCS: 81003; 81015; 87086; 99282-25

== ENCOUNTER 2016-10-13 01:00 | Emergency (ER) | payer OTHER ==
[2016-10-13 01:17] VITALS: BP 123/79; PULSE 83; TEMP 98.5; BMI 23.8
[2016-10-13] MEDS ORDERED: ALBUTEROL SO4 2.5/IPRATROPIUM 0.5 INH SOL 3 ML VIAL.NEB. NEB ONE ×2 (01:32→01:37)
[2016-10-13] MEDS: methylPREDNISolone NA SUCC 125 MG/2 ML VIAL IVPB ONE ×2 (01:35→01:43)
[2016-10-13] MEDS ORDERED: predniSONE 20 MG TABLET (UD) PO ONE (01:36)
--- NOTE | 2016-10-13 01:36 | PDOC ---
History of Present Illness - General History Source: Patient, Old Records Exam Limitations: No Limitations - History of Present Illness Initial Comments: 10/13/16 01:49 The patient is a 61 year old female with a significant past medical history of multiple visits emergency department secondary to drug seeking behavior, COPD, asthma, hypertension, hyperlipidemia, CAD, hypothyroidism, renal colic, renal insufficiency, anemia, ovarian CA, anxiety, and depression, who presents to the emergency department with of shortness of breath today. The patient notes that she is a current smoker and that she has been intubated in the past. The patient states that should would like to receive treatment for her current symptoms intravenously. <Omkar Jones - Last Filed: 10/13/16 01:51> <Paulina Downey - Last Filed: 10/13/16 04:24> - General Chief Complaint: Back Pain Stated Complaint: SHORTNESS OF BREATH, BACK PAIN Time Seen by Provider: 10/13/16 01:23 Past History <Omkar Jones - Last Filed: 10/13/16 01:51> - Past Medical History Anemia: Yes Asthma: Yes Cancer: Yes (ovarian) Cardiac Disorders: Yes CVA: No COPD: Yes (chronic bronchitis) CHF: No Dementia: No Diabetes: No GI Disorders: Yes (bleeding ulcer) Disorders: Yes (KIDNEY STONE;) HTN: Yes Hypercholesterolemia: Yes Kidney Stones: Yes Liver Disease: No Psychiatric Problems: Yes (ANXIETY, DEPRESSION) Suicide Attempt (Hx): No Seizures: No Thyroid Disease: Yes (hypothyroid) - Surgical History Abdominal Surgery: No Appendectomy: No Cardiac Surgery: No Cholecystectomy: No Lung Surgery: No Neurologic Surgery: No Orthopedic Surgery: Yes (B/L hip replacement) - Immunization History Td Vaccination: Yes TDAP Vaccination: No Immunization Up to Date: Yes - Psycho/Social/Smoking Cessation Hx Anxiety: Yes Suicidal Ideation: No Smoking Status: Yes Smoking History: Current some day smoker Years of Tobacco Use: 30 Have you smoked in the past 12 months: Yes Number of Cigarettes Smoked Daily: 6 If you are a former smoker, when did you quit?: refused booklet 07/21/14 Cigars Per Day: 0 Information on smoking cessation initiated: No 'Breaking Loose' booklet given: 06/28/16 Hx Alcohol Use: No Drug/Substance Use Hx: No Substance Use Type: None Hx Substance Use Treatment: No <Paulina Downey - Last Filed: 10/13/16 04:24> - Past Medical History Allergies/Adverse Reactions: Allergies Allergy/AdvReac Type Severity Reaction Status Date / Time levofloxacin [From Levaquin] Allergy Mild Itching Verified 10/09/16 00:05 Home Medications: Ambulatory Orders Diltiazem [Cardizem -] 30 mg PO TID 01/14/16 Fluticasone/Salmeterol [Advair 250-50 Diskus] 1 puff PO BID 01/14/16 Simvastatin [Zocor -] 20 mg PO HS 01/14/16 Aspirin Coated [Ecotrin -] 81 mg PO DAILY tablet.ec 01/16/16 Albuterol Sulfate Inhaler - [Ventolin HFA Inhaler -] 2 inh PO Q4H PRN #2 inhaler MDD 6 03/28/16 Cyclobenzaprine HCl [Flexeril 10 mg] 10 mg PO TID PRN #9 tablet 07/18/16 Ibuprofen [Motrin -] 800 mg PO Q6H #30 tablet 07/18/16 Lidocaine 5% Patch [Lidoderm Patch -] 1 patch TP DAILY #30 patch 07/18/16 Ibuprofen 800 mg PO TID #30 tablet 10/09/16 Oxycodone HCl/Acetaminophen [Percocet 5-325 mg Tablet] 1 - 2 tab PO Q6H #4 tablet MDD 4 10/09/16 Sulfamethoxazole/Trimethoprim [Bactrim Ds Tablet] 1 each PO BID #14 tablet 10/09 Prednisone [Deltasone -] 40 mg PO DAILY #8 tablet MDD 1 10/13/16 Review of Systems - Review of Systems Able to Perform ROS?: Yes Comments:: 10/13/16 01:49 GENERAL/CONSTITUTIONAL: No fever or chills. No weakness. HEAD, EYES, EARS, NOSE AND THROAT: No change in vision. No ear pain or discharge. No sore throat. GASTROINTESTINAL: No nausea, vomiting, diarrhea or constipation. GENITOURINARY: No dysuria, frequency, or change in urination. CARDIOVASCULAR: No chest pain or shortness of breath. RESPIRATORY: No cough, wheezing, or hemoptysis. MUSCULOSKELETAL: No joint or muscle swelling or pain. No neck or back pain. SKIN: No rash NEUROLOGIC: No headache, vertigo, loss of consciousness, or change in strength/ sensation. ENDOCRINE: No increased thirst. No abnormal weight change. HEMATOLOGIC/LYMPHATIC: No anemia, easy bleeding, or history of blood clots. ALLERGIC/IMMUNOLOGIC: No hives or skin allergy. <Omkar Jones - Last Filed: 10/13/16 01:51> *Physical Exam - Vital Signs Last Vital Signs Temp Pulse Resp BP Pulse Ox 98.5 F 83 20 123/79 98 10/13/16 01:14 10/13/16 01:14 10/13/16 01:14 10/13/16 01:14 10/13/16 01:14 - Physical Exam Comments: 10/13/16 01:49 GENERAL: Awake, alert, and fully oriented, in no acute distress HEAD: No signs of trauma EYES: PERRLA, EOMI, sclera anicteric, conjunctiva clear ENT: Auricles normal inspection, nares patent, Moist mucosa NECK: Normal ROM, supple, no lymphadenopathy, JVD, or masses LUNGS: (+) Breath sounds equal, clear to auscultation bilaterally. No crackles. Bilateral wheezing. Normal respiratory effort. HEART: Regular rate and rhythm, normal S1 and S2, no murmurs, rubs or gallops ABDOMEN: Soft, nontender, normoactive bowel sounds. No guarding, no rebound. No masses EXTREMITIES: Normal range of motion, no edema. No clubbing or cyanosis. No cords, erythema, or tenderness NEUROLOGICAL: Normal speech SKIN: Warm, Dry, normal turgor, no rashes or lesions noted. <Omkar Jones - Last Filed: 10/13/16 01:51> - Vital Signs Last Vital Signs Temp Pulse Resp BP Pulse Ox 98.5 F 83 20 123/79 98 10/13/16 01:14 10/13/16 01:14 10/13/16 01:14 10/13/16 01:14 10/13/16 01:14 <Paulina Downey - Last Filed: 10/13/16 04:24> ED Treatment Course - Medications Given in the ED: ED Medications Discontinued Medications Generic Name Dose Route Start Last Admin Trade Name Freq PRN Reason Stop Dose Admin Albuterol/Ipratropium 1 amp 10/13/16 01:32 10/13/16 01:35 Duoneb - NEB 10/13/16 01:33 1 amp ONCE ONE Administration Methylprednisolone Sodium Succinate 125 mg 10/13/16 01:31 10/13/16 01:43 Solu-Medrol - IVPB 10/13/16 01:32 Not Given ONCE ONE Prednisone 60 mg 10/13/16 01:36 10/13/16 01:43 Deltasone - PO 10/13/16 01:37 60 mg ONCE ONE Administration <Omkar Jones - Last Filed: 10/13/16 01:51> - RADIOLOGY Radiology Studies Ordered: Category Date Time Status CHEST PA & LAT [RAD] Stat Radiology 10/13/16 01:32 Ordered <Paulina Downey - Last Filed: 10/13/16 04:24> Medical Decision Making - Medical Decision Making 10/13/16 01:33 61 yo F with h/o HTN COPD CKD polysubstance abuse, depression ( still smoking ) chronic back pain wtih multiple ed visits for back pain, her today c/o wheezing. states was given a neb by EMS. back pain is worse with coughing. has not been on steroids for awhile. was seen in ed 3 days ago for back pain. no cp no f/c no leg swelling. no new weakness or numbnes. no other complaints. pt was also seen in [facility] ed 2 days ago. on exam awake alert. lung expiratory wheezes bilatrally. nml resp effort. heart RRR no mrg. abd soft nt nd. ext no edema wwp. skin no rash. nuero awake alert CN intact . sensation intact plan treat with duonebs, steroids, reassess. 10/13/16 04:19 pt feeling better, dc home with rx for steroids x 5 days. <Paulina Downey - Last Filed: 10/13/16 04:24> *DC/Admit/Observation/Transfer - Attestations Scribe Attestion: 10/13/16 01:50 Documentation prepared by Omkar Jones, acting as caregivers non medical for Paulina Downey MD. <Omkar Jones - Last Filed: 10/13/16 01:51> <Paulina Downey - Last Filed: 10/13/16 04:24> Diagnosis at time of Disposition: Acute exacerbation of COPD with asthma - Discharge Dispostion Disposition: HOME Condition at time of disposition: Improved - Prescriptions Prescriptions: Prednisone [Deltasone -] 40 mg PO DAILY #8 tablet MDD 1 - Referrals Referrals: Callie Landry [Primary Care Provider] - - Patient Instructions Printed Discharge Instructions: Chronic Obstructive Pulmonary Disease Additional Instructions: take prednisone 40 mg daily x 8days follow up with your regular doctor. return for any problems or concerns.
[2016-10-13] MEDS ORDERED: predniSONE 20 MG TABLET (UD) ONE (01:37)
[2016-10-13] MEDS ORDERED: OXYCODONE/APAP 5/325MG COMBO TABLET PO ONE (02:00)
== END 2016-10-13 04:24 | disposition home or self-care (01) ==
LOC: JER 01:00
PROC: 3E0F7GC Introduction of Other Therapeutic Substance into Respiratory Tract, Via Natural or Artificial Opening (ICD-10-PCS; principal; 2016-10-13)
PROC: 3E0333Z Introduction of Anti-inflammatory into Peripheral Vein, Percutaneous Approach (ICD-10-PCS; 2016-10-13)
DX: J44.1 Chronic obstructive pulmonary disease with (acute) exacerbation (principal); F17.210 Nicotine dependence, cigarettes, uncomplicated; I10 Essential (primary) hypertension; E78.5 Hyperlipidemia, unspecified; E78.00 Pure hypercholesterolemia, unspecified; E03.9 Hypothyroidism, unspecified; F41.8 Other specified anxiety disorders; Z85.43 Personal history of malignant neoplasm of ovary
CPT/HCPCS: 71020-TC; 94640; 96374; 99283-25

== ENCOUNTER 2016-10-13 21:12 | Emergency (ER) | payer OTHER ==
[2016-10-13 21:28] VITALS: BMI 22.1
[2016-10-13] MEDS ORDERED: ALBUTEROL SO4 2.5/IPRATROPIUM 0.5 INH SOL 3 ML VIAL.NEB. NEB ONE (21:38)
[2016-10-13] MEDS ORDERED: KETOROLAC TROMETHAMINE 60 MG/2 ML VIAL IM ONE (21:52)
--- NOTE | 2016-10-13 22:12 | PDOC ---
History of Present Illness - General Chief Complaint: Back Pain Stated Complaint: BACK PAIN Time Seen by Provider: 10/13/16 21:17 History Source: Patient Exam Limitations: No Limitations - History of Present Illness Initial Comments: 10/13/16 23:15 61-year-old female presents to the emergency department complaining of cough x4d and chronic back pain 6 months. Patient denies any fever, chills, nausea/ vomiting, neck pain, chest pain, shortness of breath, abdominal pains, urinary symptoms, extremity numbness or tingling sensation. Patient states she was seen in the emergency department last evening and was given Percocet which subsided her cough. Timing/Duration: 4-6 hours Associated Symptoms: reports: cough. denies: chest pain Past History - Past Medical History Allergies/Adverse Reactions: Allergies Allergy/AdvReac Type Severity Reaction Status Date / Time levofloxacin [From Levaquin] Allergy Mild Itching Verified 10/09/16 00:05 Home Medications: Ambulatory Orders Diltiazem [Cardizem -] 30 mg PO TID 01/14/16 Fluticasone/Salmeterol [Advair 250-50 Diskus] 1 puff PO BID 01/14/16 Simvastatin [Zocor -] 20 mg PO HS 01/14/16 Aspirin Coated [Ecotrin -] 81 mg PO DAILY tablet.ec 01/16/16 Albuterol Sulfate Inhaler - [Ventolin HFA Inhaler -] 2 inh PO Q4H PRN #2 inhaler MDD 6 03/28/16 Cyclobenzaprine HCl [Flexeril 10 mg] 10 mg PO TID PRN #9 tablet 07/18/16 Ibuprofen [Motrin -] 800 mg PO Q6H #30 tablet 07/18/16 Lidocaine 5% Patch [Lidoderm Patch -] 1 patch TP DAILY #30 patch 07/18/16 Ibuprofen 800 mg PO TID #30 tablet 10/09/16 Oxycodone HCl/Acetaminophen [Percocet 5-325 mg Tablet] 1 - 2 tab PO Q6H #4 tablet MDD 4 10/09/16 Sulfamethoxazole/Trimethoprim [Bactrim Ds Tablet] 1 each PO BID #14 tablet 10/09 Prednisone [Deltasone -] 40 mg PO DAILY #8 tablet MDD 1 10/13/16 Anemia: Yes Asthma: Yes Cancer: Yes (ovarian) Cardiac Disorders: Yes CVA: No COPD: Yes (chronic bronchitis) CHF: No Dementia: No Diabetes: No GI Disorders: Yes (bleeding ulcer) Disorders: Yes (KIDNEY STONE;) HTN: Yes Hypercholesterolemia: Yes Kidney Stones: Yes Liver Disease: No Psychiatric Problems: Yes (ANXIETY, DEPRESSION) Suicide Attempt (Hx): No Seizures: No Thyroid Disease: Yes (hypothyroid) - Surgical History Abdominal Surgery: No Appendectomy: No Cardiac Surgery: No Cholecystectomy: No Lung Surgery: No Neurologic Surgery: No Orthopedic Surgery: Yes (B/L hip replacement) - Immunization History Td Vaccination: Yes TDAP Vaccination: No Immunization Up to Date: Yes - Psycho/Social/Smoking Cessation Hx Anxiety: Yes Suicidal Ideation: No Smoking Status: Yes Smoking History: Current some day smoker Years of Tobacco Use: 30 Have you smoked in the past 12 months: Yes Number of Cigarettes Smoked Daily: 6 If you are a former smoker, when did you quit?: refused booklet 07/21/14 Cigars Per Day: 0 Information on smoking cessation initiated: No 'Breaking Loose' booklet given: 06/28/16 Hx Alcohol Use: No Drug/Substance Use Hx: No Substance Use Type: None Hx Substance Use Treatment: No Review of Systems - Review of Systems Able to Perform ROS?: Yes Comments:: 10/13/16 23:16 CONSTITUTIONAL: Absent: fever, chills, diaphoresis, generalized weakness, malaise, loss of appetite HEENT: Absent: rhinorrhea, nasal congestion, throat pain, throat swelling, difficulty swallowing, mouth swelling, ear pain, eye pain, visual Changes CARDIOVASCULAR: Absent: chest pain, loss of consciousness, palpitations, irregular heart rate, peripheral edema RESPIRATORY: +cough Absent: shortness of breath, dyspnea with exertion, orthopnea, wheezing, stridor, hemoptysis GASTROINTESTINAL: Absent: abdominal pain, abdominal distension, nausea, vomiting, diarrhea, constipation, melena, hematochezia GENITOURINARY: Absent: dysuria, frequency, urgency, hesitancy, hematuria, flank pain, genital pain MUSCULOSKELETAL: Absent: myalgia, arthralgia, joint swelling SKIN: Absent: rash, itching, pallor HEMATOLOGIC/IMMUNOLOGIC: Absent: easy bleeding, easy bruising, lymphadenopathy, frequent infections ENDOCRINE: Absent: unexplained weight gain, unexplained weight loss, heat intolerance, cold intolerance NEUROLOGIC: Absent: headache, focal weakness or paresthesias, dizziness, unsteady gait, seizure, mental status changes, bladder or bowel incontinence PSYCHIATRIC: Absent: anxiety, depression, suicidal or homicidal ideation, hallucinations. Is the patient limited Setswana proficient: No *Physical Exam - Vital Signs Last Vital Signs Temp Pulse Resp BP Pulse Ox 98.8 F 88 18 120/88 98 10/13/16 21:24 10/13/16 21:24 10/13/16 21:24 10/13/16 21:24 10/13/16 21:24 - Physical Exam Comments: 10/13/16 23:17 GENERAL: Well developed, well nourished. Awake and alert. No acute distress. HEENT: Normocephalic, atraumatic. PERRLA, EOMI. No conjunctival pallor. Sclera are non- icteric. Moist mucous membranes. Oropharynx is clear. NECK: Supple. Full ROM. No JVD. Carotid pulses 2+ and symmetric, without bruits. No thyromegaly. No lymphadenopathy. CARDIOVASCULAR: Regular rate and rhythm. No murmurs, rubs, or gallops. Distal pulses are 2+ and symmetric. PULMONARY: RLL mild exp wheezes No evidence of respiratory distress. Lungs clear to auscultation bilaterally exc RLL. No wheezing, rales or rhonchi. ABDOMINAL: Soft. Non-tender. Non-distended. No rebound or guarding. No organomegaly. Normoactive bowel sounds. MUSCULOSKELETAL Normal range of motion at all joints. No bony deformities or tenderness. No CVA tenderness. EXTREMITIES: No cyanosis. No clubbing. No edema. No calf tenderness. SKIN: Warm and dry. Normal capillary refill. No rashes. No jaundice. NEUROLOGICAL: Alert, awake, appropriate. Cranial nerves 2-12 intact. No deficits to light touch and temperature in face, upper extremities and lower extremities. No motor deficits in the in face, upper extremities and lower extremities. Normoreflexic in the upper and lower extremities. Normal speech. Toes are down- going bilaterally. Gait is normal without ataxia. PSYCHIATRIC: Cooperative. Good eye contact. Appropriate mood and affect. ED Treatment Course - Medications Given in the ED: ED Medications Discontinued Medications Generic Name Dose Route Start Last Admin Trade Name Freq PRN Reason Stop Dose Admin Albuterol/Ipratropium 1 amp 10/13/16 21:38 10/13/16 21:44 Duoneb - NEB 10/13/16 21:39 1 amp ONCE ONE Administration Ketorolac Tromethamine 60 mg 10/13/16 21:52 10/13/16 22:01 Toradol Injection - IM 10/13/16 21:53 60 mg ONCE ONE Administration *DC/Admit/Observation/Transfer Diagnosis at time of Disposition: Cough Asthma Qualifiers: Asthma severity: mild intermittent Asthma complication type: uncomplicated Qualified Code(s): J45.20 - Mild intermittent asthma, uncomplicated - Discharge Dispostion Disposition: HOME Condition at time of disposition: Stable Admit: No - Referrals Referrals: Dominik Dow MD [Staff Physician] - Callie Landry [Primary Care Provider] - Fredo Morse MD [Staff Physician] - - Patient Instructions Printed Discharge Instructions: Cough, Asthma -- Adult Additional Instructions: Rest Continue you asthma medication Continue your pain medication Follow up with your physician and/or the orthopedic surgeon listed on your discharge. Return to the ER for severe/persistent/worsening symptoms Progress Note - Progress Note Progress Note: 0145hrs: Pt yelling/cursing /screaming and insists on beinig d/c because I advised her that I will not order her Dilaudid 2mg q4h.
[2016-10-14 02:24] VITALS: BP 120/84; PULSE 78; TEMP 98.5
== END 2016-10-14 02:00 | disposition home or self-care (01) ==
LOC: JER 21:12
PROC: 3E0F7GC Introduction of Other Therapeutic Substance into Respiratory Tract, Via Natural or Artificial Opening (ICD-10-PCS; principal; 2016-10-13)
PROC: 3E0233Z Introduction of Anti-inflammatory into Muscle, Percutaneous Approach (ICD-10-PCS; 2016-10-13)
DX: J45.20 Mild intermittent asthma, uncomplicated (principal); I10 Essential (primary) hypertension; E78.00 Pure hypercholesterolemia, unspecified; E03.9 Hypothyroidism, unspecified; F41.8 Other specified anxiety disorders; D64.9 Anemia, unspecified; Z85.43 Personal history of malignant neoplasm of ovary
CPT/HCPCS: 94640; 96372; 99284-25

== ENCOUNTER 2016-10-26 13:15 | Emergency (ER) | payer OTHER ==
--- NOTE | 2016-10-26 13:29 | PDOC ---
Attending Attestation - Resident Resident Name: Guzman Stewart - HPI HPI: 10/27/16 08:03 Pt presents to the ED complaining of acute exacerbation of her chronic back pain. Denies neurologic complaints or bowel or bladder complaints. - Physicial Exam PE: 10/27/16 08:03 exam is unremarkable. Patient is ambulatory in the ED. - Medical Decision Making 10/27/16 08:04 patient presents to the ED complaining of acute exacerbation of her chronic back pain. Patient is a frequent visitor to the ED and is requesting prescribitions for opiates. no new symptoms. Pain improved with toradol and percoset in the the ED. Will discharge home.
[2016-10-26 13:34] VITALS: BMI 26.5
--- NOTE | 2016-10-26 14:02 | PDOC ---
History of Present Illness - General Chief Complaint: Pain Stated Complaint: WEAKNESS Time Seen by Provider: 10/26/16 13:18 History Source: Patient Exam Limitations: No Limitations - History of Present Illness Initial Comments: 10/26/16 13:53 Patient is a 56F with PMH of back pain, ovarian cancer, drug-seeking behavior, COPD and asthma here today complaining of back pain. She says the pain started a couple of hours ago but is consistent with her chronic back pain problems. The pain is located all over the back. She denies fever, chills, nausea and vomiting. She denies any focal motor weakness, problems with urination or defecation, or trauma. She also states that she's been short of breath, but that it's unchanged from her baseline. She states that she hasn't been taking her medications for the past several weeks. She denies chest pain, arm pain and abdominal pain. Past History - Past Medical History Allergies/Adverse Reactions: Allergies Allergy/AdvReac Type Severity Reaction Status Date / Time levofloxacin [From Levaquin] Allergy Mild Itching Verified 10/26/16 13:17 Home Medications: Ambulatory Orders Diltiazem [Cardizem -] 30 mg PO TID 01/14/16 Fluticasone/Salmeterol [Advair 250-50 Diskus] 1 puff PO BID 01/14/16 Simvastatin [Zocor -] 20 mg PO HS 01/14/16 Aspirin Coated [Ecotrin -] 81 mg PO DAILY tablet.ec 01/16/16 Albuterol Sulfate Inhaler - [Ventolin HFA Inhaler -] 2 inh PO Q4H PRN #2 inhaler MDD 6 03/28/16 Cyclobenzaprine HCl [Flexeril 10 mg] 10 mg PO TID PRN #9 tablet 07/18/16 Ibuprofen [Motrin -] 800 mg PO Q6H #30 tablet 07/18/16 Lidocaine 5% Patch [Lidoderm Patch -] 1 patch TP DAILY #30 patch 07/18/16 Ibuprofen 800 mg PO TID #30 tablet 10/09/16 Oxycodone HCl/Acetaminophen [Percocet 5-325 mg Tablet] 1 - 2 tab PO Q6H #4 tablet MDD 4 10/09/16 Prednisone [Deltasone -] 40 mg PO DAILY #8 tablet MDD 1 10/13/16 Anemia: Yes Asthma: Yes Cancer: Yes (ovarian) Cardiac Disorders: Yes CVA: No COPD: Yes (chronic bronchitis) CHF: No Dementia: No Diabetes: No GI Disorders: Yes (bleeding ulcer) Disorders: Yes (KIDNEY STONE;) HTN: Yes Hypercholesterolemia: Yes Kidney Stones: Yes Liver Disease: No Psychiatric Problems: Yes (ANXIETY, DEPRESSION) Suicide Attempt (Hx): No Seizures: No Thyroid Disease: Yes (hypothyroid) - Surgical History Abdominal Surgery: No Appendectomy: No Cardiac Surgery: No Cholecystectomy: No Lung Surgery: No Neurologic Surgery: No Orthopedic Surgery: Yes (B/L hip replacement) - Immunization History Td Vaccination: Yes TDAP Vaccination: No Immunization Up to Date: Yes - Psycho/Social/Smoking Cessation Hx Anxiety: Yes Suicidal Ideation: No Smoking Status: Yes Smoking History: Current every day smoker Years of Tobacco Use: 30 Have you smoked in the past 12 months: Yes Number of Cigarettes Smoked Daily: 5 If you are a former smoker, when did you quit?: refused booklet 07/21/14 Cigars Per Day: 0 Information on smoking cessation initiated: No 'Breaking Loose' booklet given: 06/28/16 Hx Alcohol Use: No Drug/Substance Use Hx: No Substance Use Type: None Hx Substance Use Treatment: No *Physical Exam - Vital Signs Last Vital Signs Temp Pulse Resp BP Pulse Ox 97.5 F L 82 18 129/84 96 10/26/16 13:32 10/26/16 13:32 10/26/16 13:32 10/26/16 13:32 10/26/16 13:32 - Physical Exam Comments: 10/26/16 14:11 Gen: awake and alert, well nourished, not in acute distress CV: RRR, no m/r/g Lungs: Diffuse wheezes in all lung wagner HEENT: Atraumatic, normocephalic Abdomen: Soft, nontender, normal bowel sounds Back: Diffusely tender along both the upper and lower spine, both along and parallel to spine. Negative straight leg test. Neuro: Alert and oriented, CN 2-12 intact, 5/5 strength in all extremities Medical Decision Making - Medical Decision Making 10/26/16 14:15 The patient is 61F with history of COPD, Asthma, and Back Pain here today complaining of back pain and shortness of breath. Differential for back pain includes: muscle strain or spasm, interverterbal disk degeneration, arthritis and drug seeking behavior. Differential for shortness of breath includes: COPD exacerbation, asthma exacerbation, and PNA. 10/26/16 15:41 CXR shows no evidence of acute cardiopulmonary disease. Given duonebs, toradol and 2 percocets. Pain has improved. Shortness of breath has improved. Plan to discharge to home. *DC/Admit/Observation/Transfer Diagnosis at time of Disposition: Back pain Qualifiers: Back pain location: back pain in unspecified location Chronicity: chronic Back pain laterality: midline Qualified Code(s): M54.9 - Dorsalgia, unspecified; G89.29 - Other chronic pain - Discharge Dispostion Disposition: HOME Condition at time of disposition: Improved Admit: No - Patient Instructions Printed Discharge Instructions: Managing Chronic Low Back Pain - Attestations Physician Attestion: 10/26/16 16:01 I, Dr. Roverto Arredondo, attest that this document has been prepared under my direction and personally reviewed by me in its entirety. I further attest, that it accurately reflects all work, treatment, procedures and medical decision -making performed by me.
[2016-10-26] MEDS ORDERED: ALBUTEROL SO4 2.5/IPRATROPIUM 0.5 INH SOL 3 ML VIAL.NEB. NEB ONE (14:24)
[2016-10-26] MEDS ORDERED: SODIUM CHLORIDE 500 ML IV STA (14:25)
[2016-10-26] MEDS ORDERED: KETOROLAC TROMETHAMINE 60 MG/2 ML VIAL IM ONE (14:31)
[2016-10-26] MEDS ORDERED: OXYCODONE/APAP 5/325MG COMBO TABLET PO ONE (15:37)
[2016-10-26 16:28] VITALS: BP 122/77; PULSE 78; TEMP 98.6
== END 2016-10-26 16:28 | disposition home or self-care (01) ==
LOC: JER 13:15
PROC: 3E0F7GC Introduction of Other Therapeutic Substance into Respiratory Tract, Via Natural or Artificial Opening (ICD-10-PCS; principal; 2016-10-26)
PROC: 3E0233Z Introduction of Anti-inflammatory into Muscle, Percutaneous Approach (ICD-10-PCS; 2016-10-26)
DX: M54.89 Other dorsalgia (principal); G89.29 Other chronic pain; J44.9 Chronic obstructive pulmonary disease, unspecified; J45.909 Unspecified asthma, uncomplicated; E78.00 Pure hypercholesterolemia, unspecified; Z85.43 Personal history of malignant neoplasm of ovary; Z76.5 Malingerer [conscious simulation]
CPT/HCPCS: 71010-TC; 94640; 96372; 99283-25

== ENCOUNTER 2016-11-05 18:47 | Emergency (ER) | payer OTHER ==
[2016-11-05 18:56] VITALS: BP 134/77; PULSE 86; TEMP 97; BMI 23.0
--- NOTE | 2016-11-05 20:36 | PDOC ---
History of Present Illness - General History Source: Patient Exam Limitations: No Limitations - History of Present Illness Initial Comments: 11/05/16 20:38 Patient is a 61 year old female with a significant past medical history of drug- seeking behavior, chronic back pain, degenerative disease of L1-S1, CHF, and ovarian ca who presents today with complaint of lower back that is chronic. Patient states that she saw her pain management doctor that did not do anything for her pain. <Camelia Rodriguez - Last Filed: 11/05/16 20:37> <Mirna Layne - Last Filed: 11/05/16 20:57> - General Chief Complaint: Chronic pain Stated Complaint: PAIN Time Seen by Provider: 11/05/16 20:05 Past History <Camelia Rodriguez - Last Filed: 11/05/16 20:37> - Past Medical History Anemia: Yes Asthma: Yes Cancer: Yes (ovarian) Cardiac Disorders: Yes CVA: No COPD: Yes CHF: No Dementia: No Diabetes: No GI Disorders: Yes (bleeding ulcer) Disorders: Yes (KIDNEY STONE;) HTN: Yes Hypercholesterolemia: Yes Kidney Stones: Yes Liver Disease: No Psychiatric Problems: Yes (ANXIETY, DEPRESSION) Suicide Attempt (Hx): No Seizures: No Thyroid Disease: Yes (hypothyroid) - Surgical History Abdominal Surgery: No Appendectomy: No Cardiac Surgery: No Cholecystectomy: No Lung Surgery: No Neurologic Surgery: No Orthopedic Surgery: Yes (B/L hip replacement (rt 2009; left 2012)) - Immunization History Td Vaccination: Yes TDAP Vaccination: No Immunization Up to Date: Yes - Psycho/Social/Smoking Cessation Hx Anxiety: Yes Suicidal Ideation: No Smoking Status: Yes Smoking History: Current every day smoker Years of Tobacco Use: 30 Have you smoked in the past 12 months: No Number of Cigarettes Smoked Daily: 20 If you are a former smoker, when did you quit?: refused booklet 07/21/14 Cigars Per Day: 20 Information on smoking cessation initiated: No 'Breaking Loose' booklet given: 06/28/16 Hx Alcohol Use: No Drug/Substance Use Hx: No Substance Use Type: None, Cocaine, Marijuana Hx Substance Use Treatment: Yes ([facility] 2012 - did not complete) <Mirna Layne - Last Filed: 11/05/16 20:57> - Past Medical History Allergies/Adverse Reactions: Allergies Allergy/AdvReac Type Severity Reaction Status Date / Time levofloxacin [From Levaquin] Allergy Mild Itching Verified 11/05/16 18:56 Home Medications: Ambulatory Orders Diltiazem [Cardizem -] 30 mg PO TID 01/14/16 Fluticasone/Salmeterol [Advair 250-50 Diskus] 1 puff PO BID 01/14/16 Simvastatin [Zocor -] 20 mg PO HS 01/14/16 Albuterol Sulfate Inhaler - [Ventolin HFA Inhaler -] 2 inh PO Q4H PRN #2 inhaler MDD 6 03/28/16 Oxycodone HCl/Acetaminophen [Percocet 5-325 mg Tablet] 1 - 2 tab PO Q6H #4 tablet MDD 4 10/09/16 Prednisone [Deltasone -] 40 mg PO DAILY #8 tablet MDD 1 10/13/16 Review of Systems - Review of Systems Able to Perform ROS?: Yes Comments:: 11/05/16 20:38 CONSTITUTIONAL: Absent: fever, no chills, no fatigue EYES: Absent: visual changes ENT: Absent: ear pain, no sore throat CARDIOVASCULAR: Absent: chest pain, no palpitations RESPIRATORY: Absent: cough, no SOB GI: Absent: abdominal pain, no nausea, no vomiting, no constipation, no diarrhea GENITOURINARY: Absent: dysuria, no frequency, no hematuria MUSCULOSKELETAL: Present: back pain Absent: no arthralgia, no myalgia SKIN: Absent: rash <Camelia Rodriguez - Last Filed: 11/05/16 20:37> *Physical Exam - Vital Signs Last Vital Signs Temp Pulse Resp BP Pulse Ox 97.0 F L 86 18 134/77 95 11/05/16 18:53 11/05/16 18:53 11/05/16 18:53 11/05/16 18:53 11/05/16 18:53 - Physical Exam Comments: 11/05/16 20:39 GENERAL: Well-appearing, well-nourished. No apparent distress. HEENT: Normocephalic, atraumatic. PERRL, EOM intact. CARDIOVASCULAR: Normal S1, S2. Regular rate and rhythm. PULMONARY: (+)coarse breath sounds. Clear to auscultation bilaterally. ABDOMEN: Soft, non-distended, non-tender. EXTREMITIES: Normal ROM in all four extremities. No gross deformities. MUSCULOSKELETAL: (+) diffuse spinal tenderness. No obvious deformities. SKIN: Warm, dry. No rash NEUROLOGICAL: No focal neurological deficits. <Camelia Rodriguez - Last Filed: 11/05/16 20:37> - Vital Signs Last Vital Signs Temp Pulse Resp BP Pulse Ox 97.0 F L 86 18 134/77 95 11/05/16 18:53 11/05/16 18:53 11/05/16 18:53 11/05/16 18:53 11/05/16 18:53 <Mirna Layne - Last Filed: 11/05/16 20:57> *DC/Admit/Observation/Transfer - Attestations Scribe Attestion: 11/05/16 20:39 Documentation prepared by NICK Villegas, acting as clinical specialist medical device for Mirna Layne NP. <Camelia Rodriguez - Last Filed: 11/05/16 20:37> <Mirna Layne - Last Filed: 11/05/16 20:57> Diagnosis at time of Disposition: Low back pain - Discharge Dispostion Disposition: HOME - Patient Instructions Printed Discharge Instructions: Low Back Pain Additional Instructions: follow up with your pain management as soon as possible.
[2016-11-05] MEDS ORDERED: traMADol HCL 50 MG TABLET PO ONE (20:37)
[2016-11-05] MEDS ORDERED: traMADol HCL 50 MG TABLET ONE (20:39)
== END 2016-11-05 21:18 | disposition home or self-care (01) ==
LOC: JERFT 18:47
DX: M54.5 Low back pain (principal); G89.29 Other chronic pain; Z76.5 Malingerer [conscious simulation]; I10 Essential (primary) hypertension; J44.9 Chronic obstructive pulmonary disease, unspecified; J45.909 Unspecified asthma, uncomplicated; F41.8 Other specified anxiety disorders; E78.00 Pure hypercholesterolemia, unspecified; E03.9 Hypothyroidism, unspecified; M51.37 Other intervertebral disc degeneration, lumbosacral region; F17.210 Nicotine dependence, cigarettes, uncomplicated
CPT/HCPCS: 99281-25

== ENCOUNTER 2017-01-07 11:20 | Emergency (ER) | payer OTHER ==
[2017-01-07 11:33] VITALS: BMI 27.4
[2017-01-07] MEDS ORDERED: traMADol HCL 50 MG TABLET PO ONE (12:51)
[2017-01-07] MEDS ORDERED: traMADol HCL 50 MG TABLET ONE (12:56)
--- NOTE | 2017-01-07 13:07 | PDOC ---
Attending Attestation - HPI HPI: 01/07/17 13:31 The patient is a 61 year old female, with a significant past medical history of chronic back pain, degenerative disease of L1-S1, COPD, well known to the ED who presents to the emergency department s/p fall with R elbow pain. Patient states she tripped and fell. Patient denies any head trauma, LOC, nausea or vomiting. Patient also complaints of L hip pain. - Physicial Exam PE: 01/07/17 13:40 GENERAL: Awake, alert, and fully oriented, in no acute distress HEAD: No signs of trauma EYES: PERRLA, EOMI, sclera anicteric, conjunctiva clear ENT: Auricles normal inspection, hearing grossly normal, nares patent, oropharynx clear without exudates. Moist mucosa NECK: Normal ROM, supple, no lymphadenopathy, JVD, or masses LUNGS: Breath sounds equal, clear to auscultation bilaterally. No wheezes, and no crackles HEART: Regular rate and rhythm, normal S1 and S2, no murmurs, rubs or gallops ABDOMEN: Soft, nontender, normoactive bowel sounds. No guarding, no rebound. No masses EXTREMITIES: Normal range of motion, no edema. No clubbing or cyanosis. No cords. Abrasion and 2x2 cmm ecchymosis to R elbow. Full ROM with no palpable tenderness.No gross abnormalities. 2+ radial pulses. Sensation intact throughout. Radial, ulnar nerves intact. L5 and S1 tenderness to palpation. No step off NEUROLOGICAL: Cranial nerves II through XII grossly intact. Normal speech, normal gait SKIN: Warm, Dry, normal turgor, no rashes or lesions noted. - Medical Decision Making 01/07/17 13:40 Documentation prepared by Mirtha Brown, acting as medical technician for Bandar Alonso MD <Mirtha Brown - Last Filed: 01/07/17 13:42> - Resident Resident Name: Mindy Puri - ED Attending Attestation I have performed the following: I have examined & evaluated the patient, The case was reviewed & discussed with the resident, I agree w/resident's findings & plan, Exceptions are as noted - Medical Decision Making 01/07/17 13:05 Vital Signs Temp Pulse Resp BP Pulse Ox 98 F 90 18 129/63 93 L 01/07/17 11:30 01/07/17 11:30 01/07/17 11:30 01/07/17 11:30 01/07/17 11:30 61 year old female with past medical history of chronic back pain, degenerative disease of L1-S1, COPD presents with mechanical fall. The patient states that she had tripped and fell. Denies head injuries or LOC. Complaining of right elbow pain and lower back pain. Will r/o fracture of right elbow and lumbar spine, though low suspicion. Likely musculoskeletal. Xrays of the right elbow and lumbar spine. Pain control. If workup unremarkable and pain improved, can d/c home. 01/07/17 15:19 Xrays reviewed. No acute findings. old compression fracture of lumbar spine. <Bandar Alonso - Last Filed: 01/07/17 15:19>
--- NOTE | 2017-01-07 13:15 | PDOC ---
History of Present Illness - General Chief Complaint: Injury Stated Complaint: INJURY TO RIGHT HAND Time Seen by Provider: 01/07/17 12:13 History Source: Patient Exam Limitations: No Limitations - History of Present Illness Initial Comments: 61yo F with PMH of asthma/COPD, chronic back pain, drug-seeking behavior, presents s/p fall. Pt c/o Right elbow pain and Left hip pain. Denies hitting head, (-) LOC. Pt tripped and fell in her dining room at 9am, prompting her to come to the ER. Left hip pain rated 8/10, originates at the sacrum and radiates around Left hip to Left groin. Pt noted walking around the ER asking for her pain medication. 01/07/17 13:10 Past History - Past Medical History Allergies/Adverse Reactions: Allergies Allergy/AdvReac Type Severity Reaction Status Date / Time levofloxacin [From Levaquin] Allergy Mild Itching Verified 01/07/17 11:30 Home Medications: Ambulatory Orders Diltiazem [Cardizem -] 30 mg PO TID 01/14/16 Fluticasone/Salmeterol [Advair 250-50 Diskus] 1 puff PO BID 01/14/16 Simvastatin [Zocor -] 20 mg PO HS 01/14/16 Albuterol Sulfate Inhaler - [Ventolin HFA Inhaler -] 2 inh PO Q4H PRN #2 inhaler MDD 6 03/28/16 Oxycodone HCl/Acetaminophen [Percocet 5-325 mg Tablet] 1 - 2 tab PO Q6H #4 tablet MDD 4 10/09/16 Prednisone [Deltasone -] 40 mg PO DAILY #8 tablet MDD 1 10/13/16 Tramadol HCl 50 mg PO Q6H PRN #8 tablet MDD 4 01/07/17 Anemia: Yes Asthma: Yes Cancer: Yes (ovarian) Cardiac Disorders: Yes CVA: No COPD: Yes CHF: No Dementia: No Diabetes: No GI Disorders: Yes (bleeding ulcer) Disorders: Yes (KIDNEY STONE;) HTN: Yes Hypercholesterolemia: Yes Kidney Stones: Yes Liver Disease: No Psychiatric Problems: Yes (ANXIETY, DEPRESSION) Seizures: No Thyroid Disease: Yes (hypothyroid) - Surgical History Abdominal Surgery: No Appendectomy: No Cardiac Surgery: No Cholecystectomy: No Lung Surgery: No Neurologic Surgery: No Orthopedic Surgery: Yes (B/L hip replacement (rt 2009; left 2012)) - Immunization History Td Vaccination: Yes TDAP Vaccination: No Immunization Up to Date: Yes - Suicide/Smoking/Psychosocial Hx Smoking Status: Yes Smoking History: Current every day smoker Years of Tobacco Use: 30 Have you smoked in the past 12 months: No Number of Cigarettes Smoked Daily: 20 If you are a former smoker, when did you quit?: refused booklet 07/21/14 Information on smoking cessation initiated: No 'Breaking Loose' booklet given: 06/28/16 Hx Alcohol Use: No Drug/Substance Use Hx: No Substance Use Type: None, Cocaine, Marijuana Hx Substance Use Treatment: Yes ([facility] 2012 - did not complete) Review of Systems - Review of Systems Able to Perform ROS?: Yes Is the patient limited Wolof proficient: No Constitutional: Yes: Chills. No: Diaphoresis, Fever HEENTM: No: Recent change in vision, Ear Pain, Nose Pain, Throat Pain Respiratory: No: Cough, Shortness of Breath, Stridor, Wheezing, Hemoptysis Cardiac (ROS): No: Chest Pain, Edema, Irregular Heart Rate, Lightheadedness, Palpitations, Syncope, Chest Tightness ABD/GI: No: Abdominal Distended, Constipated, Diarrhea, Nausea, Rectal Bleeding , Vomiting, Abdominal cramping : No: Burning, Dysuria, Hematuria Musculoskeletal: Yes: Back Pain (chronic), Joint Pain (Left hip and Right elbow) . No: Neck Pain Integumentary: Yes: Lesions (excoriation to Right elbow). No: Erythema, Rash Neurological: No: Headache, Numbness, Unsteady Gait, Dizziness Psychiatric: Yes: Anxiety (hx of), Depression (hx of) *Physical Exam - Vital Signs Last Vital Signs Temp Pulse Resp BP Pulse Ox 98 F 90 18 129/63 93 L 01/07/17 11:30 01/07/17 11:30 01/07/17 11:30 01/07/17 11:30 01/07/17 11:30 - Physical Exam General Appearance: Yes: Nourished, Appropriately Dressed, Mild Distress ( sucking on pacifier, chills/shivering) HEENT: positive: EOMI, Normal Voice, Other (moist mucous membranes). negative: Pale Conjunctivae, Scleral Icterus (R), Scleral Icterus (L), Nasal Congestion, Rhinorrhea Neck: positive: Trachea midline, Supple Respiratory/Chest: positive: Lungs Clear, Normal Breath Sounds. negative: Respiratory Distress, Accessory Muscle Use Cardiovascular: positive: Regular Rhythm, Regular Rate, S1, S2. negative: Murmur Gastrointestinal/Abdominal: positive: Soft. negative: Distended, Guarding, Rebound, Tenderness Musculoskeletal: positive: Other (Left hip pain: originates in sacrum and radiates around to Left groin, no crepitus noted. Right elbow: excoriation noted, no crepitus. Both areas tender to palpation.) Extremity: negative: Swelling, Calf Tenderness, Erythema Integumentary: positive: Normal Color, Dry, Warm Neurologic: positive: Fully Oriented, Alert, Normal Mood/Affect, Normal Response , Motor Strength 08/24 ED Treatment Course - RADIOLOGY Radiology Studies Ordered: Category Date Time Status ELBOW-RIGHT [RAD] Stat Radiology 01/07/17 12:49 Ordered PELVIS [RAD] Stat Radiology 01/07/17 12:49 Ordered SPINE-LUMBAR SACRAL [RAD] Stat Radiology 01/07/17 12:49 Ordered - Medications Given in the ED: ED Medications Discontinued Medications Generic Name Dose Route Start Last Admin Trade Name Freq PRN Reason Stop Dose Admin Tramadol HCl 50 mg 01/07/17 12:51 01/07/17 12:58 Ultram - PO 01/07/17 12:52 50 mg ONCE ONE Administration Medical Decision Making - Medical Decision Making 61yo F with PMH of asthma/COPD, chronic back pain, drug-seeking behavior, presents s/p fall. Pt c/o Right elbow and Left hip pain. No crepitus noted to either location on exam. Both elbow and hip tender to palpation. Excoriation noted to Right elbow. Pt noted walking around the ER asking for her pain medication. Right elbow xray - no fracture, dislocation or joint effusion Lumbosacral xray - no acute fracture. Compression deformity of L1 with cement consistent with kyphoplasty noted. Pelvis xray - no fracture Tramadol 50mg given for pain Pt can go home. Psych referral given for anxiety. 01/07/17 17:01 *DC/Admit/Observation/Transfer Diagnosis at time of Disposition: Fall, Chronic pain - Discharge Dispostion Disposition: HOME Condition at time of disposition: Improved Admit: No - Prescriptions Prescriptions: Tramadol HCl 50 mg PO Q6H PRN #8 tablet MDD 4 PRN Reason: Pain - Referrals Referrals: Sai Mai MD [Staff Physician] - - Patient Instructions Printed Discharge Instructions: DI for Chronic Pain -- Adult Additional Instructions: Please make an appointment to see a Psychiatrist to address your anxiety (the contact information for one is attached). Please follow-up with your Pain Management Doctor for your chronic pain. Please return to the hospital for any medical emergency such as chest pain, palpitations, difficulty breathing. Print Language: KINYARWANDA
[2017-01-07 15:24] VITALS: BP 122/65; PULSE 86; TEMP 97.8
== END 2017-01-07 15:21 | disposition home or self-care (01) ==
LOC: JER 11:20
DX: M54.5 Low back pain (principal); M25.552 Pain in left hip; M25.522 Pain in left elbow; W18.39XA Other fall on same level, initial encounter; Y93.89 Activity, other specified; Y92.038 Other place in apartment as the place of occurrence of the external cause; J44.9 Chronic obstructive pulmonary disease, unspecified; J45.909 Unspecified asthma, uncomplicated; I10 Essential (primary) hypertension; E78.00 Pure hypercholesterolemia, unspecified; E03.9 Hypothyroidism, unspecified; F41.8 Other specified anxiety disorders; Z85.43 Personal history of malignant neoplasm of ovary; Z87.442 Personal history of urinary calculi
CPT/HCPCS: 72100-TC; 72170-TC; 73070-TC-RT; 99282-25

== ENCOUNTER 2017-05-05 11:50 | Emergency (ER) | payer OTHER ==
--- NOTE | 2017-05-05 11:57 | PDOC ---
History of Present Illness - General History Source: Patient, Family, Old Records Exam Limitations: No Limitations - History of Present Illness Initial Comments: 05/05/17 13:35 The patient is a 62 year old female brought via EMS and presenting with her family, with a significant past medical history of polysubstance abuse, anxiety , depression, asthma, anemia, COPD, bleeding ulcer, kidney stones, HTN, HLD and thyroid disease, who presents to the emergency department with generalized weakness and shortness of breath for the past 2 days. She reports that she has been using her home nebulizer without any relief of her symptoms. She also reports a subjective fever and nausea during this time frame. She notes that she is experiencing some mild chest pain and sore throat only when she coughs. The patient denies headache and dizziness. Denies fever, chills, vomit, diarrhea and constipation. Denies dysuria, frequency, urgency and hematuria. Allergies: Levaquin Past surgical history: (B/L hip replacement (rt 2009; left 2012)) Social history: Alcohol use, cocaine use, marijuana use and tobacco use (20 cigarettes daily) <Denis Hughes - Last Filed: 05/05/17 13:35> <Jennifer No - Last Filed: 05/05/17 15:26> - General Stated Complaint: BACK PAIN Time Seen by Provider: 05/05/17 11:56 Past History <Denis Hughes - Last Filed: 05/05/17 13:35> - Past Medical History Anemia: Yes Asthma: Yes Cancer: Yes (ovarian) Cardiac Disorders: Yes CVA: No COPD: Yes CHF: No Dementia: No Diabetes: No GI Disorders: Yes (bleeding ulcer) Disorders: Yes (KIDNEY STONE;) HTN: Yes Hypercholesterolemia: Yes Kidney Stones: Yes Liver Disease: No Psychiatric Problems: Yes (ANXIETY, DEPRESSION) Seizures: No Thyroid Disease: Yes (hypothyroid) - Surgical History Abdominal Surgery: No Appendectomy: No Cardiac Surgery: No Cholecystectomy: No Lung Surgery: No Neurologic Surgery: No Orthopedic Surgery: Yes (B/L hip replacement (rt 2009; left 2013)) - Immunization History Td Vaccination: Yes TDAP Vaccination: No Immunization Up to Date: Yes - Suicide/Smoking/Psychosocial Hx Smoking Status: Yes Smoking History: Current every day smoker Years of Tobacco Use: 30 Have you smoked in the past 12 months: No Number of Cigarettes Smoked Daily: 20 If you are a former smoker, when did you quit?: refused booklet 07/21/14 Cigars Per Day: 20 'Breaking Loose' booklet given: 06/28/16 Hx Alcohol Use: No Drug/Substance Use Hx: No Substance Use Type: None, Cocaine, Marijuana Hx Substance Use Treatment: Yes ([facility] - did not complete) <Jennifer No - Last Filed: 05/05/17 15:26> - Past Medical History Allergies/Adverse Reactions: Allergies Allergy/AdvReac Type Severity Reaction Status Date / Time levofloxacin [From Levaquin] Allergy Mild Itching Verified 05/05/17 12:07 Home Medications: Ambulatory Orders Albuterol Sulfate Inhaler - [Ventolin HFA Inhaler -] 1 - 2 inh PO Q4H PRN #1 inhaler 05/05/17 Azithromycin [Zithromax 250mg Tablets -] 250 mg PO UTDICT #6 tab 05/05/17 Prednisone [Deltasone -] 40 mg PO DAILY #8 tablet 05/05/17 Review of Systems - Review of Systems Able to Perform ROS?: Yes Comments:: 05/05/17 13:35 GENERAL/CONSTITUTIONAL: (+) Generalized weakness and fever. No chills. HEAD, EYES, EARS, NOSE AND THROAT: (+) Sore throat. No change in vision. No ear pain or discharge. CARDIOVASCULAR: (+) chest pain and shortness of breath RESPIRATORY: (+) Cough. No wheezing, or hemoptysis. GASTROINTESTINAL: (+) Nausea. No vomiting, diarrhea or constipation. GENITOURINARY: No dysuria, frequency, or change in urination. MUSCULOSKELETAL: No joint or muscle swelling or pain. No neck or back pain. SKIN: No rash NEUROLOGIC: No headache, vertigo, loss of consciousness, or change in strength/ sensation. ENDOCRINE: No increased thirst. No abnormal weight change HEMATOLOGIC/LYMPHATIC: No anemia, easy bleeding, or history of blood clots. ALLERGIC/IMMUNOLOGIC: No hives or skin allergy. <Denis Hughes - Last Filed: 05/05/17 13:35> *Physical Exam - Vital Signs Last Vital Signs Temp Pulse Resp BP Pulse Ox 98.6 F 84 22 138/92 100 05/05/17 12:04 05/05/17 12:04 05/05/17 12:04 05/05/17 12:04 05/05/17 12:04 - Physical Exam Comments: 05/05/17 13:36 GENERAL: Awake, alert, and fully oriented, in no acute distress HEAD: No signs of trauma, normocephalic, atraumatic EYES: PERRLA, EOMI, sclera anicteric, conjunctiva clear ENT: Auricles normal inspection, hearing grossly normal, nares patent, oropharynx clear without exudates. Moist mucosa NECK: Normal ROM, supple, no lymphadenopathy, JVD, or masses LUNGS: (+) Wheezing bilaterally. Rocherous throughout. No distress, speaks full sentences. HEART: Regular rate and rhythm, normal S1 and S2, no murmurs, rubs or gallops, peripheral pulses normal and equal bilaterally. ABDOMEN: (+) Mild epigastric tenderness. Soft, normoactive bowel sounds. No guarding, no rebound. No masses EXTREMITIES : Normal inspection, Normal range of motion, no edema. No clubbing or cyanosis. NEUROLOGICAL: Cranial nerves II through XII grossly intact. Normal speech, normal gait, no focal sensorimotor deficits SKIN: Warm, Dry, normal turgor, no rashes or lesions noted. <Denis Hughes - Last Filed: 05/05/17 13:35> Heart Score/ECG Review - ECG Intrepretation Comment:: 05/05/17 12:58 sinus at 82, nl axis, nl interval, no acute st/t wave findings <Jennifer No - Last Filed: 05/05/17 15:26> ED Treatment Course - LABORATORY CBC & Chemistry Diagram: 05/05/17 12:50 05/05/17 12:50 - ADDITIONAL ORDERS Additional order review: Laboratory Results 05/05/17 05/05/17 12:50 12:50 PT with INR 12.20 H INR 1.08 PTT (Actin FS) 32.1 Sodium 141 Potassium 4.7 Chloride 111 H Carbon Dioxide 20 L Anion Gap 10 BUN 78 H Creatinine 3.2 H Creat Clearance w eGFR 14.78 Random Glucose 91 Calcium 8.6 Magnesium 2.4 Total Bilirubin 0.6 AST 20 ALT 29 D Alkaline Phosphatase 256 H Creatine Kinase 53 Troponin I < 0.02 Total Protein 7.3 Albumin 3.4 Lipase 300 01/14/18 12:50 Influenza Types A,B Antigen (HERMILA) - Preliminary Nasopharyngeal Swab - Preliminary 05/05/17 12:50 RBC 3.70 MCV 85.3 MCHC 32.5 RDW 19.3 H D MPV 7.0 L D Neutrophils % 60.4 Lymphocytes % 24.9 D Monocytes % 8.5 Eosinophils % 4.9 H D Basophils % 1.3 <Denis Hughes - Last Filed: 05/05/17 13:35> - LABORATORY CBC & Chemistry Diagram: 05/05/17 12:50 05/05/17 12:50 <Jennifer No - Last Filed: 05/05/17 15:26> Medical Decision Making - Medical Decision Making 05/05/17 12:40 a/p: 62yo female with cough/sob/subjective fevers -hx of copd - suspect URI and copd exacerbation vs pna vs mucopurulent bronchitis -will check labs, ekg, cxr -will medicate for COPD exacerbation -will monitor and reassess -pt with decreased po intake and generalized weakness - will treat nausea and will give ivf hydration 05/05/17 14:16 nausea improved still with wheezing and mild resp distress will add steroids and another duo neb x 2 05/05/17 14:17 po challenge given 05/05/17 15:17 pt states feeling better still with mild wheezing, but sob improved suspect copd exacerbation will treat for copd exacerbation no pna on xray pt tolerated PO intake stable for d/c to home <Jennifer No - Last Filed: 05/05/17 15:26> *DC/Admit/Observation/Transfer - Attestations Scribe Attestion: 05/05/17 13:36 Documentation prepared by Denis Hughes, acting as electromedical equipment technician for Jennifer No DO <Denis Hughes - Last Filed: 05/05/17 13:35> - Discharge Dispostion Admit: No - Attestations Physician Attestion: 05/05/17 15:26 I, Dr. Jennifer No, DO, attest that this document has been prepared under my direction and personally reviewed by me in its entirety. I further attest, that it accurately reflects all work, treatment, procedures and medical decision -making performed by me. <Linda Noen - Last Filed: 05/05/17 15:26> Diagnosis at time of Disposition: Acute exacerbation of COPD with asthma - Discharge Dispostion Disposition: HOME Condition at time of disposition: Stable - Prescriptions Prescriptions: Albuterol Sulfate Inhaler - [Ventolin HFA Inhaler -] 1 - 2 inh PO Q4H PRN #1 inhaler PRN Reason: Wheezing Azithromycin [Zithromax 250mg Tablets -] 250 mg PO UTDICT #6 tab Prednisone [Deltasone -] 40 mg PO DAILY #8 tablet - Referrals Referrals: Callie Landry [Primary Care Provider] - - Patient Instructions Printed Discharge Instructions: DI for Acute Bronchitis Additional Instructions: Please take all meds as prescribed. Please return to the ED if your symptoms worsen. Please make an appointment to see your PMD in 2 days. - Post Discharge Activity
[2017-05-05] MEDS ORDERED: ALBUTEROL SO4 2.5/IPRATROPIUM 0.5 INH SOL 3 ML VIAL.NEB. NEB ONE ×3 (12:06→14:16)
[2017-05-05] MEDS ORDERED: FAMOTIDINE 20 MG/50 ML IVPB 20 MG/50 ML MG IVPB ONE (12:06)
[2017-05-05] MEDS ORDERED: ONDANSETRON 4 MG/2 ML VIAL IVPUSH ONE (12:06)
[2017-05-05] MEDS ORDERED: SODIUM CHLORIDE 0.9% 1000 ML INFUS.BAG IV ONE (12:06)
[2017-05-05 12:07] VITALS: BP 138/92; PULSE 84; TEMP 98.6; BMI 23.8
[2017-05-05 13:02] LABS: BASO % 1.3 % (0-2.0); EOS % 4.9 % (0-4.5); HEMATOCRIT 31.5 % (32.4-45.2); HEMOGLOBIN 10.2 GM/dL (10.7-15.3); LYMPH % 24.9 % (8-40); MCH 27.7 pg (25.7-33.7); MCHC 32.5 g/dl (32.0-36.0); MEAN CELL VOLUME 85.3 fl (80-96); MONO % 8.5 % (3.8-10.2); NEUT % 60.4 % (42.8-82.8); PLATELET COUNT 375 K/MM3 (134-434); RDW 19.3 % (11.6-15.6); WHITE BLOOD COUNT 7.5 K/mm3 (4.0-10.0)
[2017-05-05 13:17] LABS: INR 1.08 (0.82-1.09); PROTHROMBIN TIME (PATIENT) 12.2 SEC (9.98-11.88)
[2017-05-05 13:20] LABS: ACTIVATED PTT 32.1 SECONDS (26.9-34.4)
[2017-05-05 13:22] LABS: ALBUMIN 3.4 g/dl (3.4-5.0); ANION GAP 10 (8-16); BLOOD UREA NITROGEN 78 mg/dL (7-18); CALCIUM 8.6 mg/dL (8.5-10.1); CHLORIDE 111 mmol/L (98-107); CO2 20 mmol/L (21-32); GLUCOSE,RANDOM 91 mg/dL (74-106); SGPT/ALT 29 U/L (12-78); SODIUM 141 mmol/L (136-145)
[2017-05-05 13:28] LABS: ALK PHOS 256 U/L (45-117); BILIRUBIN,TOTAL 0.6 mg/dL (0.2-1.0); CREATININE 3.2 mg/dL (0.55-1.02); TOT PROT 7.3 g/dl (6.4-8.2)
[2017-05-05 13:30] LABS: LIPASE 300 U/L (73-393); MAGNESIUM 2.4 mg/dL (1.8-2.4); POTASSIUM 4.7 mmol/L (3.5-5.1); SGOT/AST 20 U/L (15-37)
[2017-05-05] MEDS ORDERED: methylPREDNISolone NA SUCC 125 MG/2 ML VIAL IVPB ONE (14:16)
[2017-05-05] MEDS ORDERED: AZITHROMYCIN 250 MG TABLET PO ONE (15:26)
[2017-05-05] MEDS ORDERED: AZITHROMYCIN 500 MG TABLET ONE (15:40)
--- NOTE | 2017-05-06 11:24 | EKG ---
Test Reason : Blood Pressure : / mmHG Vent. Rate : 082 BPM Atrial Rate : 082 BPM P-R Int : 180 ms QRS Dur : 072 ms QT Int : 378 ms P-R-T Axes : 048 007 076 degrees QTc Int : 441 ms NORMAL SINUS RHYTHM NORMAL ECG WHEN COMPARED WITH ECG OF 28-JUN-2016 22:16, CRITERIA FOR SEPTAL INFARCT ARE NO LONGER PRESENT Confirmed by DEISI VILLAR MD ([id number]) on 05/06/2017 11:24:05 AM Referred By: Confirmed By:DEISI VILLAR MD
== END 2017-05-05 15:49 | disposition home or self-care (01) ==
LOC: JER 11:50
PROC: 3E033GC Introduction of Other Therapeutic Substance into Peripheral Vein, Percutaneous Approach (ICD-10-PCS; principal; 2017-05-05)
PROC: 3E033GC Introduction of Other Therapeutic Substance into Peripheral Vein, Percutaneous Approach (ICD-10-PCS; 2017-05-05)
PROC: 3E0333Z Introduction of Anti-inflammatory into Peripheral Vein, Percutaneous Approach (ICD-10-PCS; 2017-05-05)
PROC: 3E0F7GC Introduction of Other Therapeutic Substance into Respiratory Tract, Via Natural or Artificial Opening (ICD-10-PCS; 2017-05-05)
PROC: 3E0F7GC Introduction of Other Therapeutic Substance into Respiratory Tract, Via Natural or Artificial Opening (ICD-10-PCS; 2017-05-05)
PROC: 3E0F7GC Introduction of Other Therapeutic Substance into Respiratory Tract, Via Natural or Artificial Opening (ICD-10-PCS; 2017-05-05)
DX: J44.1 Chronic obstructive pulmonary disease with (acute) exacerbation (principal); J45.909 Unspecified asthma, uncomplicated; I10 Essential (primary) hypertension; E78.00 Pure hypercholesterolemia, unspecified; F41.8 Other specified anxiety disorders; F19.10 Other psychoactive substance abuse, uncomplicated
CPT/HCPCS: 36415; 71046-TC; 80053; 82550; 83690; 83735; 84484; 85025; 85610; 85730; 87804; 93005; 93010; 94640; 96365; 96375; 99284-25

== ENCOUNTER → 2017-05-25 | Emergency (ER) | payer OTHER ==
[~2017-05-25] MED LIST changes: +ACETAMINOPHEN 325 MG TABLET (FP) ONE; +ACETAMINOPHEN 325 MG TABLET (FP) PO ONE; +ALBUTEROL SO4 2.5/IPRATROPIUM 0.5 INH SOL 3 ML VIAL.NEB. NEB ONE; +CYCLOBENZAPRINE HCL 10 MG TABLET (FP) ONE; +CYCLOBENZAPRINE HCL 10 MG TABLET (FP) PO ONE; +KETOROLAC TROMETHAMINE 60 MG/2 ML VIAL IM ONE; +KETOROLAC TROMETHAMINE 60 MG/2 ML VIAL ONE; -traMADol HCL 50 MG TABLET ONE; -traMADol HCL 50 MG TABLET PO ONE
[2017-05-25 16:29] VITALS: BP 129/73; PULSE 96; BMI 23.0
--- NOTE | 2017-05-25 17:16 | PDOC ---
History of Present Illness - General History Source: Patient Exam Limitations: No Limitations - History of Present Illness Initial Comments: 05/25/17 17:42 The patient is a 62-year-old female with a significant past medical history of polysubstance abuse, anxiety, depression, anemia, asthma, COPD, bleeding ulcer, kidney stones, HTN, HLD, thyroid disease, chronic back pain, and degenerative disease of L1-S1. Patient presents to the emergency department with increasing weakness and diffuse non-radiating low back pain for 2 days. She reports the pain started at rest and she denies any acute trauma or exacerbating incident. She complains of associated chills, cough, nausea, and urinary frequency. The patient denies chest pain, shortness of breath, headache and dizziness. The patient denies fever, chills, vomit, diarrhea and constipation. Denies numbness/ tingling, loss of sensation, and incontinence. The patient denies dysuria, urgency and hematuria. Allergies: levaquin Past Surgical History: B/L hip replacement (R 2009, L 2012) Social History: alcohol, cocaine, marijuana, and tobacco use PCP: Callie Esparza <Leticia Pantoja - Last Filed: 05/25/17 17:42> <Jennifer No - Last Filed: 05/25/17 18:56> - General Chief Complaint: Weakness Stated Complaint: BACK PAIN Time Seen by Provider: 05/25/17 17:01 Past History <Leticia Pantoja - Last Filed: 05/25/17 17:42> - Past Medical History Anemia: Yes Asthma: Yes Cancer: Yes (ovarian) Cardiac Disorders: Yes CVA: No COPD: Yes CHF: No Dementia: No Diabetes: No GI Disorders: Yes (bleeding ulcer) Disorders: Yes (KIDNEY STONE;) HTN: Yes Hypercholesterolemia: Yes Kidney Stones: Yes Liver Disease: No Psychiatric Problems: Yes (ANXIETY, DEPRESSION) Seizures: No Thyroid Disease: Yes (hypothyroid) - Surgical History Abdominal Surgery: No Appendectomy: No Cardiac Surgery: No Cholecystectomy: No Lung Surgery: No Neurologic Surgery: No Orthopedic Surgery: Yes (B/L hip replacement (rt 2009; left 2012)) - Immunization History Td Vaccination: Yes TDAP Vaccination: No Immunization Up to Date: Yes - Suicide/Smoking/Psychosocial Hx Smoking Status: Yes Smoking History: Current every day smoker Years of Tobacco Use: 30 Have you smoked in the past 12 months: No Number of Cigarettes Smoked Daily: 20 If you are a former smoker, when did you quit?: refused booklet 07/21/14 Cigars Per Day: 20 Information on smoking cessation initiated: No 'Breaking Loose' booklet given: 06/28/16 Hx Alcohol Use: No Drug/Substance Use Hx: No Substance Use Type: None, Cocaine, Marijuana Hx Substance Use Treatment: Yes ([facility] 2012 - did not complete) <Jennifer No - Last Filed: 05/25/17 18:56> - Past Medical History Allergies/Adverse Reactions: Allergies Allergy/AdvReac Type Severity Reaction Status Date / Time levofloxacin [From Levaquin] Allergy Mild Itching Verified 05/25/17 16:24 Home Medications: Ambulatory Orders Albuterol Sulfate Inhaler - [Ventolin HFA Inhaler -] 1 - 2 inh PO Q4H PRN #1 inhaler 05/05/17 Azithromycin [Zithromax 250mg Tablets -] 250 mg PO UTDICT #6 tab 05/05/17 Prednisone [Deltasone -] 40 mg PO DAILY #8 tablet 05/05/17 Review of Systems - Review of Systems Able to Perform ROS?: Yes Comments:: 05/25/17 17:42 GENERAL/CONSTITUTIONAL: (+) Chills. No fever. (+) Weakness. HEAD, EYES, EARS, NOSE AND THROAT: No change in vision. No ear pain or discharge. No sore throat. CARDIOVASCULAR: No chest pain or shortness of breath. RESPIRATORY: (+) Cough. No wheezing, or hemoptysis. GASTROINTESTINAL: (+) Nausea. No vomiting, diarrhea or constipation. GENITOURINARY: No dysuria. (+) Frequency. MUSCULOSKELETAL: No joint or muscle swelling or pain. No neck pain. (+) Low back pain. SKIN: No rash NEUROLOGIC: No headache, vertigo, loss of consciousness, or change in strength/ sensation. ENDOCRINE: No increased thirst. No abnormal weight change. HEMATOLOGIC/LYMPHATIC: No anemia, easy bleeding, or history of blood clots. ALLERGIC/IMMUNOLOGIC: No hives or skin allergy. <Leticia Pantoja - Last Filed: 05/25/17 17:42> *Physical Exam - Vital Signs Last Vital Signs Temp Pulse Resp BP Pulse Ox 98.4 F 96 H 16 129/73 97 18 16:24 05/25/17 16:24 05/25/17 16:24 05/25/17 16:24 05/25/17 16:24 - Physical Exam Comments: 05/25/17 17:42 GENERAL: Awake, alert, and fully oriented, in no acute distress HEAD: No signs of trauma EYES: PERRLA, EOMI, sclera anicteric, conjunctiva clear ENT: Auricles normal inspection, hearing grossly normal, nares patent, oropharynx clear without exudates. Moist mucosa NECK: Normal ROM, supple, no lymphadenopathy, JVD, or masses LUNGS: (+) Wheezing bilaterally on exam. No respiratory distress, tolerating secretions, speaking in full sentences. No crackles HEART: Regular rate and rhythm, normal S1 and S2, no murmurs, rubs or gallops ABDOMEN: Soft, nontender, normoactive bowel sounds. No guarding, no rebound. No masses MUSCULOSKELETAL: (+) Bilateral SI joint tenderness. (+) Paraspinal L-spine tenderness. (+) Ambulating with a limp secondary to pain, requiring assistance with ambulation. (+) Bilateral CVA ttp. No cauda equina. EXTREMITIES: Normal range of motion, no edema. No clubbing or cyanosis. No cords, erythema, or tenderness NEUROLOGICAL: Cranial nerves II through XII grossly intact. Normal speech. SKIN: Warm, Dry, normal turgor, no rashes or lesions noted. <Pantoja,Leticia - Last Filed: 05/25/17 17:42> - Vital Signs Last Vital Signs Temp Pulse Resp BP Pulse Ox 98.4 F 96 H 16 129/73 97 05/25/17 16:24 05/25/17 16:24 05/25/17 16:24 05/25/17 16:24 05/25/17 16:24 <Jennifer No - Last Filed: 05/25/17 18:56> ED Treatment Course - RADIOLOGY Radiology Studies Ordered: Category Date Time Status CHEST PA & LAT [RAD] Stat Radiology 05/25/17 17:09 Ordered SPINE-LUMBAR SACRAL [RAD] Stat Radiology 05/25/17 17:09 Ordered SPINE-THORACIC [RAD] Stat Radiology 05/25/17 17:09 Ordered <Jennifer No - Last Filed: 05/25/17 18:56> Medical Decision Making - Medical Decision Making 05/25/17 17:12 a/p: 62yo female with low back pain x 2 days and urinary freq -did not try pain control at home for back pain -still smoking pain throughout entire back, pain in paraspinal lumbar region pain with ambulation will obtain ua/ucx will obtain drug screen - hx of polysubstance abuse will obtain xrays of back toradol, tylenol, flexeril for pain will monitor and reassess 05/25/17 18:55 pt has been signed out to the [facility] ED physician pending labs and imaging <Jennifer No - Last Filed: 05/25/17 18:56> *DC/Admit/Observation/Transfer - Attestations Scribe Attestion: 05/25/17 17:43 Documentation prepared by Leticia Pantoja, acting as medical supervisor for Jennifer No DO, MD/. <Leticia Pantoja - Last Filed: 05/25/17 17:42> - Discharge Dispostion Admit: No - Attestations Physician Attestion: 05/25/17 18:56 I, Dr. Jennifer No DO, attest that this document has been prepared under my direction and personally reviewed by me in its entirety. I further attest, that it accurately reflects all work, treatment, procedures and medical decision -making performed by me. <Jennifer No - Last Filed: 05/25/17 18:56> Diagnosis at time of Disposition: Low back pain, Thoracic back pain - Referrals Referrals: Callie Landry [Primary Care Provider] - - Patient Instructions - Post Discharge Activity
[2017-05-25 19:25] VITALS: TEMP 98.2
--- NOTE | 2017-05-25 23:13 | PDOC ---
*Physical Exam - Vital Signs Last Vital Signs Temp Pulse Resp BP Pulse Ox 98.2 F 96 H 16 129/73 97 05/25/17 19:25 05/25/17 16:24 05/25/17 16:24 05/25/17 16:24 05/25/17 16:24 ED Treatment Course - Medications Given in the ED: ED Medications Discontinued Medications Generic Name Dose Route Start Last Admin Trade Name Rip PRN Reason Stop Dose Admin Acetaminophen 975 mg 05/25/17 17:11 05/25/17 18:40 Tylenol - PO 05/25/17 17:12 975 mg ONCE ONE Administration Albuterol/Ipratropium 1 amp 05/25/17 17:11 05/25/17 17:50 Duoneb - NEB 05/25/17 17:12 1 amp ONCE ONE Administration Albuterol/Ipratropium 1 amp 05/25/17 17:11 05/25/17 17:50 Duoneb - NEB 05/25/17 17:12 1 amp ONCE ONE Administration Cyclobenzaprine HCl 10 mg 05/25/17 17:11 05/25/17 17:50 Flexeril - PO 05/25/17 17:12 10 mg ONCE ONE Administration Ketorolac Tromethamine 60 mg 05/25/17 17:11 05/25/17 17:50 Toradol Injection - IM 05/25/17 17:12 60 mg ONCE ONE Administration *DC/Admit/Observation/Transfer Diagnosis at time of Disposition: Low back pain, Thoracic back pain - Referrals Referrals: Callie Landry [Primary Care Provider] - - Patient Instructions - Post Discharge Activity
== END | disposition left against medical advice (07) ==
LOC: JER 16:21
PROC: 3E0F7GC Introduction of Other Therapeutic Substance into Respiratory Tract, Via Natural or Artificial Opening (ICD-10-PCS; principal; 2017-05-25)
PROC: 3E0F7GC Introduction of Other Therapeutic Substance into Respiratory Tract, Via Natural or Artificial Opening (ICD-10-PCS; 2017-05-25)
PROC: 3E0233Z Introduction of Anti-inflammatory into Muscle, Percutaneous Approach (ICD-10-PCS; 2017-05-25)
DX: M54.5 Low back pain (principal); M54.6 Pain in thoracic spine; M51.37 Other intervertebral disc degeneration, lumbosacral region; I10 Essential (primary) hypertension; E78.00 Pure hypercholesterolemia, unspecified; F41.8 Other specified anxiety disorders; I50.9 Heart failure, unspecified; F19.10 Other psychoactive substance abuse, uncomplicated; F17.210 Nicotine dependence, cigarettes, uncomplicated; J44.9 Chronic obstructive pulmonary disease, unspecified; J45.909 Unspecified asthma, uncomplicated
CPT/HCPCS: 71046-TC-FY; 72070-TC-FY; 72100-TC-FY; 94640; 96372; 99283-25

== ENCOUNTER 2017-06-03 12:54 | Emergency (ER) | payer OTHER ==
[2017-06-03 13:22] VITALS: TEMP 98; BMI 22.1
[2017-06-03] MEDS ORDERED: CYCLOBENZAPRINE HCL 5 MG TABLET PO ONE (15:30)
--- NOTE | 2017-06-03 15:55 | PDOC ---
History of Present Illness - General Chief Complaint: Nausea Stated Complaint: NAUSEA Time Seen by Provider: 06/03/17 13:52 - History of Present Illness Initial Comments: 06/03/17 15:50 The patient is a 62-year-old female with a significant past medical history of polysubstance abuse, anxiety, depression, anemia, asthma, COPD, bleeding ulcer, kidney stones, HTN, HLD, thyroid disease, chronic back pain, and degenerative disease of L1-S1. Patient presents to the emergency department with diffuse non- radiating low back pain 2 days. She denies any acute trauma or exacerbating incident. She reports the pain is diffuse to her lower back, bilaterally, with increased pain to her sacrum. The patient states she has not been hungry but denies N/V. The patient was here for similar symptoms about 9 days ago. Pt states that the pain today is the SAME pain she has had in the past. Denies any new pain, denies incontinence, denies saddle anesthesia. is still able to ambulate unassisted. Pt admits she is forgetful and does not take her medications. The patient denies chest pain, shortness of breath, headache and dizziness. The patient denies fever, chills, vomit, diarrhea and constipation. The patient denies numbness/tingling, loss of sensation, and incontinence. The patient denies dysuria, urgency and hematuria. Allergies: levaquin Past Surgical History: B/L hip replacement (R 2009, L 2012) Social History: alcohol, cocaine, marijuana, and tobacco use PCP: Callie Esparza Past History - Past Medical History Allergies/Adverse Reactions: Allergies Allergy/AdvReac Type Severity Reaction Status Date / Time levofloxacin [From Levaquin] Allergy Mild Itching Verified 06/03/17 13:12 Home Medications: Ambulatory Orders Albuterol Sulfate Inhaler - [Ventolin HFA Inhaler -] 1 - 2 inh PO Q4H PRN #1 inhaler 05/05/17 Anemia: Yes Asthma: Yes Cancer: Yes (ovarian) Cardiac Disorders: Yes CVA: No COPD: Yes CHF: No Dementia: No Diabetes: No GI Disorders: Yes (bleeding ulcer) Disorders: Yes (KIDNEY STONE;) HTN: Yes Hypercholesterolemia: Yes Kidney Stones: Yes Liver Disease: No Psychiatric Problems: Yes (ANXIETY, DEPRESSION) Seizures: No Thyroid Disease: Yes (hypothyroid) - Surgical History Abdominal Surgery: No Appendectomy: No Cardiac Surgery: No Cholecystectomy: No Lung Surgery: No Neurologic Surgery: No Orthopedic Surgery: Yes (B/L hip replacement (rt 2009; left 2012)) - Immunization History Td Vaccination: Yes TDAP Vaccination: No Immunization Up to Date: Yes - Suicide/Smoking/Psychosocial Hx Smoking Status: Yes Smoking History: Current every day smoker Years of Tobacco Use: 30 Have you smoked in the past 12 months: No Number of Cigarettes Smoked Daily: 20 If you are a former smoker, when did you quit?: refused booklet 07/21/14 Cigars Per Day: 20 Information on smoking cessation initiated: No 'Breaking Loose' booklet given: 06/28/16 Hx Alcohol Use: No Drug/Substance Use Hx: No Substance Use Type: None, Cocaine, Marijuana Hx Substance Use Treatment: Yes ([facility] 2012 - did not complete) Review of Systems - Review of Systems Comments:: 06/03/17 15:51 """GENERAL/CONSTITUTIONAL: No fever or chills. No weakness. HEAD, EYES, EARS, NOSE AND THROAT: No change in vision. No ear pain or discharge. No sore throat. CARDIOVASCULAR: No chest pain or shortness of breath. RESPIRATORY: No cough, wheezing, or hemoptysis. GASTROINTESTINAL: No vomiting, diarrhea or constipation. GENITOURINARY: No dysuria, frequency, or change in urination. MUSCULOSKELETAL: (+) lower back pain. No joint or muscle swelling. No neck pain. SKIN: No rash NEUROLOGIC: No headache, vertigo, loss of consciousness, or change in strength/ sensation. ENDOCRINE: No increased thirst. No abnormal weight change. HEMATOLOGIC/LYMPHATIC: No anemia, easy bleeding, or history of blood clots. ALLERGIC/IMMUNOLOGIC: No hives or skin allergy. """ *Physical Exam - Vital Signs Last Vital Signs Temp Pulse Resp BP Pulse Ox 98 F 88 16 140/89 98 06/03/17 13:20 06/03/17 13:20 06/03/17 13:20 06/03/17 13:20 06/03/17 13:20 - Physical Exam Comments: 06/03/17 15:54 """GENERAL: Awake, alert, and fully oriented, in no acute distress HEAD: No signs of trauma EYES: PERRLA, EOMI, sclera anicteric, conjunctiva clear ENT: Auricles normal inspection, hearing grossly normal, nares patent, oropharynx clear without exudates. NECK: Nontender, no stepoffs, Normal ROM, supple, no lymphadenopathy, JVD, or masses LUNGS: Clear lungs, Breath sounds equal, No crackles HEART: Regular rate and rhythm, normal S1 and S2, no murmurs rubs or gallops ABDOMEN: Soft, nontender, normoactive bowel sounds. No guarding, no rebound. No masses EXTREMITIES: Normal range of motion, no edema. No clubbing or cyanosis. No cords, erythema, or tenderness NEUROLOGICAL: Cranial nerves II through XII intact. 5/5 strength and sensation in all extremities, Normal speech, normal gait SKIN: Warm, Dry, normal turgor, no rashes or lesions noted. BACK: mild paraspinal lumbar TTP, no midline tenderness, no stepoffs "" " ED Treatment Course - Medications Given in the ED: ED Medications Discontinued Medications Generic Name Dose Route Start Last Admin Trade Name Rip PRN Reason Stop Dose Admin Cyclobenzaprine HCl 5 mg 06/03/17 15:30 06/03/17 15:20 Cyclobenzaprine Hcl PO 06/03/17 15:31 5 mg ONCE ONE Administration Medical Decision Making - Medical Decision Making 06/03/17 15:55 62 F with chronic LBP, no acute changes today. Pt has not been taking her prescribed medications. - Flexeril - F/u ortho, pain Pt is well appearing, with normal vitals. Clinically stable for DC at this time. I discussed the physical exam findings, ancillary test results and final diagnoses with the patient. I answered all of the patient's questions. The patient was satisfied with the care received and felt comfortable with the discharge plan and treatment plan. The patient agrees to follow up with the primary care physician within 24-72 hours. *DC/Admit/Observation/Transfer Diagnosis at time of Disposition: Chronic pain - Discharge Dispostion Disposition: HOME - Referrals Referrals: Tez Barragan MD [Staff Physician] - - Patient Instructions Printed Discharge Instructions: DI for Low Back Pain Additional Instructions: Take your medications as prescribed to treat your pain. Call the number provided to make an appointment with our orthopedics clinic. If you experience worsening pain, weakness, numbness, difficulty controlling your bowel or bladder, or any other concerning symptoms, return to the ER immediately. - Post Discharge Activity - Attestations Physician Attestion: 06/03/17 15:57 I, Dr. Nghia Khan MD, attest that this document has been prepared under my direction and personally reviewed by me in its entirety. I further attest, that it accurately reflects all work, treatment, procedures and medical decision -making performed by me.
[2017-06-03 16:38] VITALS: BP 133/89; PULSE 92
== END 2017-06-03 17:05 | disposition home or self-care (01) ==
LOC: JER 12:54
DX: M54.5 Low back pain (principal); G89.29 Other chronic pain; M51.37 Other intervertebral disc degeneration, lumbosacral region; D64.9 Anemia, unspecified; J44.9 Chronic obstructive pulmonary disease, unspecified; J45.909 Unspecified asthma, uncomplicated; I10 Essential (primary) hypertension; E78.00 Pure hypercholesterolemia, unspecified; E03.9 Hypothyroidism, unspecified; F41.8 Other specified anxiety disorders; E11.9 Type 2 diabetes mellitus without complications
CPT/HCPCS: 99283-25

== ENCOUNTER 2017-06-08 16:09 | Emergency (ER) | payer OTHER ==
[2017-06-08 16:32] VITALS: BP 140/74; PULSE 85; TEMP 98.1; BMI 23.0
[2017-06-08 17:38] LABS: EOS % 5.7 % (0-4.5); HEMATOCRIT 30.5 % (32.4-45.2); HEMOGLOBIN 10.5 GM/dL (10.7-15.3); LYMPH % 20.8 % (8-40); MCH 29.4 pg (25.7-33.7); MCHC 34.4 g/dl (32.0-36.0); MEAN CELL VOLUME 85.5 fl (80-96); MEAN PLT VOLUME 7.2 fl (7.5-11.1); NEUT % 61.5 % (42.8-82.8); PLATELET COUNT 403 K/MM3 (134-434); RBC 3.57 M/mm3 (3.60-5.2); WHITE BLOOD COUNT 7.3 K/mm3 (4.0-10.0)
[2017-06-08 17:39] LABS: URINE APPEARANCE CLEAR; URINE BILIRUBIN NEGATIVE (NEGATIVE); URINE BLOOD NEGATIVE (NEGATIVE); URINE COLOR STRAW; URINE GLUCOSE (UA) 1+ (NEGATIVE); URINE KETONE NEGATIVE (NEGATIVE); URINE NITRITE NEGATIVE (NEGATIVE); URINE UROBILINOGEN NEGATIVE mg/dL (0.2-1.0)
[2017-06-08 17:41] LABS: URINE LEUK ESTERASE 1+ (NEGATIVE); URINE PROTEIN 2+ (NEGATIVE)
[2017-06-08 17:42] LABS: EPI CELLS RARE /HPF (FEW); URINE MUCUS RARE
[2017-06-08 17:55] LABS: ALBUMIN 3.5 g/dl (3.4-5.0); ANION GAP 12 (8-16); BILIRUBIN,TOTAL 0.5 mg/dL (0.2-1.0); BLOOD UREA NITROGEN 75 mg/dL (7-18); CALCIUM 8.4 mg/dL (8.5-10.1); CHLORIDE 101 mmol/L (98-107); CO2 24 mmol/L (21-32); CREATININE 4.2 mg/dL (0.55-1.02); GLUCOSE,RANDOM 123 mg/dL (74-106); POTASSIUM 3.3 mmol/L (3.5-5.1); SGOT/AST 12 U/L (15-37); SGPT/ALT 14 U/L (12-78); SODIUM 137 mmol/L (136-145); TOT PROT 7.2 g/dl (6.4-8.2)
[2017-06-08 17:56] LABS: ALK PHOS 190 U/L (45-117)
--- NOTE | 2017-06-08 18:07 | PDOC ---
History of Present Illness - General History Source: Patient Exam Limitations: No Limitations - History of Present Illness Initial Comments: 06/08/17 18:07 The patient is a 62 year old female, well known to the ED, with history of hypertension, hyperlipidemia, COPD, kidney stones, ovarian CA, who presents to the ED complaining of several days of left lower back pain with LLQ pain and dysuria. She states her left lower back pain radiates down her LLE with associated LLE weakness. She also complains of epigastric pain with nausea and vomiting x 3 yesterday. She also complains of productive cough with white sputum and wheezing, consistent with her COPD. No fever. No bladder or bowel incontinence. <Melissa Calles - Last Filed: 06/08/17 18:07> <Debby Chaparro - Last Filed: 06/08/17 21:43> - General Chief Complaint: Urinary Problem Stated Complaint: BACK PAIN Time Seen by Provider: 06/08/17 16:41 Past History <Melissa Calles - Last Filed: 06/08/17 18:07> - Past Medical History Anemia: Yes Asthma: Yes Cancer: Yes (ovarian) Cardiac Disorders: Yes CVA: No COPD: Yes CHF: No DVT: No Dementia: No Diabetes: No GI Disorders: Yes (bleeding ulcer) Disorders: Yes (KIDNEY STONE;) HTN: Yes Hypercholesterolemia: Yes Kidney Stones: Yes Liver Disease: No Psychiatric Problems: Yes (ANXIETY, DEPRESSION) Seizures: No Thyroid Disease: Yes (hypothyroid) - Surgical History Abdominal Surgery: No Appendectomy: No Cardiac Surgery: No Cholecystectomy: No Lung Surgery: No Neurologic Surgery: No Orthopedic Surgery: Yes (B/L hip replacement (rt 2009; left 2012)) - Immunization History Td Vaccination: Yes TDAP Vaccination: No Immunization Up to Date: Yes - Suicide/Smoking/Psychosocial Hx Smoking Status: Yes Smoking History: Never smoked Years of Tobacco Use: 30 Have you smoked in the past 12 months: No Number of Cigarettes Smoked Daily: 20 If you are a former smoker, when did you quit?: refused booklet 07/21/14 Cigars Per Day: 20 Information on smoking cessation initiated: No 'Breaking Loose' booklet given: 06/28/16 Hx Alcohol Use: No Drug/Substance Use Hx: No Substance Use Type: None, Cocaine, Marijuana Hx Substance Use Treatment: Yes ([facility] 2012 - did not complete) <Debby Chaparro - Last Filed: 06/08/17 21:43> - Past Medical History Allergies/Adverse Reactions: Allergies Allergy/AdvReac Type Severity Reaction Status Date / Time levofloxacin [From Levaquin] Allergy Mild Itching Verified 06/08/17 16:27 Home Medications: Ambulatory Orders Albuterol Sulfate Inhaler - [Ventolin HFA Inhaler -] 1 - 2 inh PO Q4H PRN #1 inhaler 05/05/17 Albuterol Sulfate Inhaler - [Ventolin HFA Inhaler -] 2 inh PO Q4H #1 inh Azithromycin [Zithromax 250mg Tablets -] 250 mg PO UTDICT #6 tab 06/08/17 Cefpodoxime Proxetil [Vantin -] 200 mg PO Q12H 5 Days #20 tablet 06/08/17 Lidocaine 5% Patch [Lidoderm Patch -] 1 patch TP DAILY PRN #30 patch 06/08/17 Methocarbamol [Robaxin -] 500 mg PO TID PRN #21 tablet 06/08/17 Review of Systems - Review of Systems Able to Perform ROS?: Yes Comments:: 06/08/17 18:20 12 point ROS is as per HPI and otherwise negative. All Other Systems: Reviewed and Negative <Melissa Calles - Last Filed: 06/08/17 18:07> *Physical Exam - Vital Signs Last Vital Signs Temp Pulse Resp BP Pulse Ox 98.1 F 85 17 140/74 95 06/08/17 16:28 06/08/17 16:28 06/08/17 16:28 06/08/17 16:28 06/08/17 16:28 - Physical Exam Comments: 06/08/17 18:20 GENERAL: The patient is awake, alert, and appropriately interactive. EYES: The pupils are equal, round, and reactive to light, with clear, conjunctiva. NOSE: The nose is clear without discharge. EARS: The ear canals and tympanic membranes are normal. THROAT: The oropharynx is clear without erythema or exudates. Themucous membranes are moist. NECK: The neck is supple without adenopathy or meningismus. CHEST: The lungs are clear without crackles, or wheezes. HEART: Heart is regular rhythm, with normal S1 and S2, no murmurs. ABDOMEN: The abdomen is soft normal bowel sounds. There is mild epigastric tenderness, no rebound or guarding. There is LLQ tenderness to palpation. There is no organomegaly and no mass. BACK: Left flank and left mid back are tender to palpation. There is no midline spinal tenderness. EXTREMITIES: Extremities are normal NEURO: Cranial nerves II through XII grossly intact. Normalspeech. No focal neurological deficits. SKIN: Skin is unremarkable without rash or swelling. There is no bruising, and there are no other signs of injury. <Melissa Calles - Last Filed: 06/08/17 18:07> - Vital Signs Last Vital Signs Temp Pulse Resp BP Pulse Ox 98.1 F 85 17 140/74 95 06/08/17 16:28 06/08/17 16:28 06/08/17 16:28 06/08/17 16:28 06/08/17 16:28 <Debby Chaparro - Last Filed: 06/08/17 21:43> ED Treatment Course - LABORATORY CBC & Chemistry Diagram: 06/08/17 17:00 06/08/17 17:00 - ADDITIONAL ORDERS Additional order review: Laboratory Results 06/08/17 06/08/17 Unknown 17:00 Sodium 137 Potassium 3.3 L Chloride 101 Carbon Dioxide 24 Anion Gap 12 BUN 75 H Creatinine 4.2 H Creat Clearance w eGFR 10.80 Random Glucose 123 H Calcium 8.4 L Total Bilirubin 0.5 AST 12 L ALT 14 Alkaline Phosphatase 190 H Total Protein 7.2 Albumin 3.5 Urine Color Straw Urine Appearance Clear Urine pH 6.0 Ur Specific Mcintyre 1.012 Urine Protein 2+ H Urine Glucose (UA) 1+ H Urine Ketones Negative Urine Blood Negative Urine Nitrite Negative Urine Bilirubin Negative Urine Urobilinogen Negative Ur Leukocyte Esterase 1+ H D Urine WBC (Auto) 12 Urine RBC (Auto) 1 Ur Epithelial Cells Rare Urine Mucus Rare 06/08/17 17:00 RBC 3.57 L MCV 85.5 MCHC 34.4 RDW 18.0 H MPV 7.2 L Neutrophils % 61.5 Lymphocytes % 20.8 Monocytes % 11.0 H Eosinophils % 5.7 H Basophils % 1.0 <Melissa Calles - Last Filed: 06/08/17 18:07> - LABORATORY CBC & Chemistry Diagram: 06/08/17 17:00 06/08/17 17:00 - ADDITIONAL ORDERS Additional order review: Laboratory Results 06/08/17 06/08/17 Unknown 17:00 Sodium 137 Potassium 3.3 L Chloride 101 Carbon Dioxide 24 Anion Gap 12 BUN 75 H Creatinine 4.2 H Creat Clearance w eGFR 10.80 Random Glucose 123 H Calcium 8.4 L Total Bilirubin 0.5 AST 12 L ALT 14 Alkaline Phosphatase 190 H Total Protein 7.2 Albumin 3.5 Urine Color Straw Urine Appearance Clear Urine pH 6.0 Ur Specific Mcintyre 1.012 Urine Protein 2+ H Urine Glucose (UA) 1+ H Urine Ketones Negative Urine Blood Negative Urine Nitrite Negative Urine Bilirubin Negative Urine Urobilinogen Negative Ur Leukocyte Esterase 1+ H D Urine WBC (Auto) 12 Urine RBC (Auto) 1 Ur Epithelial Cells Rare Urine Mucus Rare 06/08/17 17:00 RBC 3.57 L MCV 85.5 MCHC 34.4 RDW 18.0 H MPV 7.2 L Neutrophils % 61.5 Lymphocytes % 20.8 Monocytes % 11.0 H Eosinophils % 5.7 H Basophils % 1.0 <Debby Chaparro - Last Filed: 06/08/17 21:43> Medical Decision Making - Medical Decision Making 06/08/17 18:29 Mr. Be is a 62-year-old female with multiple medical problems who presents to the emergency department due to a complaint of back pain. Patient has a history of chronic back pain, currently requesting narcotic pain medications. In addition, patient states she has dysuria, left lower quadrant pain. She denies fevers or chills. She reports nausea, vomiting She also notes a cough Differential diagnosis includes and is not limited to: Pyelonephritis, kidney stone, diverticulitis, small bowel junction unlikely, chronic back pain, Will do: Labs CT Chest x-ray Patient is requesting Toradol or morphine Normal saline Laboratory Tests 04/10/15 05/05/17 05/05/17 20:37 12:50 12:50 WBC 7.5 D Hgb 10.2 L D Hct 31.5 L D Plt Count 375 Sodium 141 Potassium 4.7 Chloride 111 H Carbon Dioxide 20 L Anion Gap 10 BUN 78 H Creatinine Random Glucose 91 Urine Nitrite Negative Ur Leukocyte Esterase 1+ H Urine RBC 1 Urine WBC 25 06/08/17 06/08/17 17:00 17:00 WBC 7.3 Hgb 10.5 L Hct 30.5 L Plt Count 403 Sodium 137 Potassium 3.3 L Chloride 101 Carbon Dioxide 24 Anion Gap 12 BUN Creatinine 4.2 H Random Glucose 123 H Urine Nitrite Ur Leukocyte Esterase Urine RBC Urine WBC Will do: Tylenol IV, Robaxin Will do CT Non contrast Will do CXR Will do Neb treatment Will re assess 06/08/17 21:31 CT: Areas of peribronchial thickening with patchy opacification in both lower lobes , fibrotic changes, linear atelectasis in the middle lobe. No gallbladder wall thickening or pericholecystic fluid. Pancreas unremarkable. No splenic masses. Bilateral thickening of the adrenal glands. No hydronephrosis, stones, masses. No evidence of inflammatory changes to the bowel. Appendix is identified, no evidence of appendicitis. No cystic masses of the ovary. Compression fracture of L1, postprocedural changes in the spine consistent with prior vertebroplasty and kyphoplasty. Will discharged home. Will give azithromycin for lung findings. Will give Robaxin and Lidoderm patches for pain. Will ask patient to follow up with her primary care physician as soon as possible. Patient is due to see a roof painter on Tuesdays (3 days from now) Urinalysis consistent with urinary tract infection Pt has no leukocytosis Can treat as an outpt Clinical impression: Lower back pain, initial presentation Urinary tract infection, initial presentation 06/08/17 21:42 <Debby Chaparro - Last Filed: 06/08/17 21:43> *DC/Admit/Observation/Transfer - Attestations Scribe Attestion: 06/08/17 18:26 Documentation prepared by Melissa Calles, acting as clinical specialist medical device for Debby Chaparro MD. <Melissa Calles - Last Filed: 06/08/17 18:07> - Discharge Dispostion Admit: No <Debby Chaparro - Last Filed: 06/08/17 21:43> Diagnosis at time of Disposition: UTI (urinary tract infection) Qualifiers: Urinary tract infection type: site unspecified Hematuria presence: without hematuria Qualified Code(s): N39.0 - Urinary tract infection, site not specified - Discharge Dispostion Disposition: HOME Condition at time of disposition: Stable - Referrals Referrals: Callie Landry [Primary Care Provider] - - Patient Instructions Printed Discharge Instructions: DI for Urinary Tract Infection (UTI), DI for Back Spasm, DI for Back Strain or Sprain Additional Instructions: Ms Matamoros, Thanks for coming in to the ER today Please take medications as prescribed Please be sure to follow up with your Primary Care physician as soon as possible Please keep your appointment with your roof painter Please monitor yourself for fevers or chills Please return to the ER for any other concerns or complaints - Post Discharge Activity
[2017-06-08] MEDS ORDERED: ACETAMINOPHEN 1000 MG/100 ML VIAL (NON FORMULARY) IVPB ONE (18:11)
[2017-06-08] MEDS ORDERED: METHOCARBAMOL 500 MG TABLET PO ONE (18:11)
[2017-06-08] MEDS ORDERED: SODIUM CHLORIDE 1,000 ML IV STA (18:12)
[2017-06-08] MEDS ORDERED: ONDANSETRON 4 MG/2 ML VIAL IVPUSH ONE (18:13)
[2017-06-08] MEDS ORDERED: ALBUTEROL SO4 2.5/IPRATROPIUM 0.5 INH SOL 3 ML VIAL.NEB. NEB ONE (18:15)
--- NOTE | 2017-06-09 09:46 | PDOC ---
Patient Follow-up (Call Back) - Post ED Follow - Up Condition at time of discharge: Stable Disposition at time of original discharge: HOME Reason for Call Back: Complaint/Condition F/U (Patient was prescribed Cipro for UTI however not covered by her insurance I have called in a prescription for Keflex)
== END 2017-06-08 22:36 | disposition home or self-care (01) ==
LOC: JER 16:09
PROC: 3E0F7GC Introduction of Other Therapeutic Substance into Respiratory Tract, Via Natural or Artificial Opening (ICD-10-PCS; principal; 2017-06-08)
PROC: 3E0337Z Introduction of Electrolytic and Water Balance Substance into Peripheral Vein, Percutaneous Approach (ICD-10-PCS; 2017-06-08)
PROC: 3E033GC Introduction of Other Therapeutic Substance into Peripheral Vein, Percutaneous Approach (ICD-10-PCS; 2017-06-08)
PROC: 3E033NZ Introduction of Analgesics, Hypnotics, Sedatives into Peripheral Vein, Percutaneous Approach (ICD-10-PCS; 2017-06-08)
DX: N39.0 Urinary tract infection, site not specified (principal); F41.8 Other specified anxiety disorders; J44.9 Chronic obstructive pulmonary disease, unspecified; J45.909 Unspecified asthma, uncomplicated; I10 Essential (primary) hypertension; E78.00 Pure hypercholesterolemia, unspecified; Z87.442 Personal history of urinary calculi
CPT/HCPCS: 36415; 71045-TC-FY; 74176-TC; 80053; 81003; 81015; 85025; 87040; 87086; 99285-25

== ENCOUNTER 2017-07-31 17:48 | Emergency (ER) | payer OTHER ==
--- NOTE | 2017-07-31 17:58 | PDOC ---
Rapid Medical Evaluation Chief Complaint: Chronic pain Time Seen by Provider: 07/31/17 17:57 Medical Evaluation: Allergies Allergy/AdvReac Type Severity Reaction Status Date / Time levofloxacin [From Levaquin] Allergy Mild Itching Verified 06/08/17 16:27 07/31/17 17:57 I have performed a brief in-person evaluation of this patient. The patient presents with a chief complaint of: back pain, "finished percocet" Pertinent physical exam findings: well appearing I have ordered the following: nothing The patient will proceed to the ED for further evaluation. Discharge Disposition - Diagnosis Chronic low back pain - Referrals - Patient Instructions - Post Discharge Activity
[2017-07-31 17:59] VITALS: BP 146/76; PULSE 88; TEMP 97.5; BMI 29.2
[2017-07-31] MEDS ORDERED: KETOROLAC TROMETHAMINE 30 MG/1 ML VIAL IM ONE (19:31)
--- NOTE | 2017-07-31 19:39 | PDOC ---
History of Present Illness - General Chief Complaint: Chronic pain Stated Complaint: PAIN Time Seen by Provider: 07/31/17 17:57 History Source: Patient - History of Present Illness Occurred: reports: yesterday Severity: reports: severe Pain Location: reports: back Past History - Past Medical History Allergies/Adverse Reactions: Allergies Allergy/AdvReac Type Severity Reaction Status Date / Time levofloxacin [From Levaquin] Allergy Mild Itching Verified 07/31/17 17:59 Home Medications: Ambulatory Orders Albuterol Sulfate Inhaler - [Ventolin HFA Inhaler -] 1 - 2 inh PO Q4H PRN #1 inhaler 05/05/17 Albuterol Sulfate Inhaler - [Ventolin HFA Inhaler -] 2 inh PO Q4H #1 inh Azithromycin [Zithromax 250mg Tablets -] 250 mg PO UTDICT #6 tab 06/08/17 Cefpodoxime Proxetil [Vantin -] 200 mg PO Q12H 5 Days #20 tablet 06/08/17 Lidocaine 5% Patch [Lidoderm Patch -] 1 patch TP DAILY PRN #30 patch 06/08/17 Methocarbamol [Robaxin -] 500 mg PO TID PRN #21 tablet 06/08/17 Ibuprofen [Motrin -] 2 tab PO Q6H #30 tablet 07/31/17 Lidocaine 5% Patch [Lidoderm Patch -] 1 patch TP DAILY #9 patch 07/31/17 Anemia: Yes Asthma: Yes Cancer: Yes (ovarian) Cardiac Disorders: Yes CVA: No COPD: Yes CHF: No DVT: No Dementia: No Diabetes: No GI Disorders: Yes (bleeding ulcer) Disorders: Yes (KIDNEY STONE;) HTN: Yes Hypercholesterolemia: Yes Kidney Stones: Yes Liver Disease: No Psychiatric Problems: Yes (ANXIETY, DEPRESSION) Seizures: No Thyroid Disease: Yes (hypothyroid) - Surgical History Abdominal Surgery: No Appendectomy: No Cardiac Surgery: No Cholecystectomy: No Lung Surgery: No Neurologic Surgery: No Orthopedic Surgery: Yes (B/L hip replacement (rt 2009; left 2012)) - Immunization History Td Vaccination: Yes TDAP Vaccination: No Immunization Up to Date: Yes - Suicide/Smoking/Psychosocial Hx Smoking Status: Yes Smoking History: Current every day smoker Years of Tobacco Use: 30 Have you smoked in the past 12 months: No Number of Cigarettes Smoked Daily: 20 If you are a former smoker, when did you quit?: refused booklet 07/21/14 Cigars Per Day: 20 Information on smoking cessation initiated: No 'Breaking Loose' booklet given: 06/28/16 Hx Alcohol Use: No Drug/Substance Use Hx: No Substance Use Type: None, Cocaine, Marijuana Hx Substance Use Treatment: Yes ([facility] 2013 - did not complete) Trauma Specific PMHX - Complaint Specific PMHX Arthritis: Yes (with osteoporosis) Back Injury: No Review of Systems - Review of Systems Constitutional: No: Chills, Fever ABD/GI: No: Nausea, Vomiting, Abdominal cramping : No: Dysuria, Flank Pain, Hematuria Musculoskeletal: Yes: Back Pain Neurological: No: Numbness, Tingling, Weakness *Physical Exam - Vital Signs Last Vital Signs Temp Pulse Resp BP Pulse Ox 97.5 F L 88 16 146/76 100 07/31/17 17:56 07/31/17 17:56 07/31/17 17:56 07/31/17 17:56 07/31/17 17:56 - Physical Exam General Appearance: Yes: Appropriately Dressed, Mild Distress HEENT: positive: Normal Voice Neck: positive: Supple Respiratory/Chest: negative: Respiratory Distress Musculoskeletal: negative: CVA Tenderness, Vertebral Tenderness Extremity: positive: Normal Inspection Integumentary: positive: Dry, Warm Neurologic: positive: Fully Oriented, Alert, Normal Mood/Affect, Motor Strength 5/5, Other (neg SLR b/l, able to ambulate) Medical Decision Making - Medical Decision Making 07/31/17 19:33 62 yo female, history of asthma, chronic back pain, herniated disc to lumbar spine on MRI as per patient, takes percocet, multiple ER visits for pain control though f/u with pain management in [place], here with her usual back pain since last night. Pain located to lower back, sharp in nature with an intensity of 10 out of 10 and does not radiate. No lower extremity weakness, saddle anesthesia or bowel or bladder incontinence. Denies dysuria, flank pain , nausea, vomiting, fever or chills. States she saw her pain doctor last week but for unclear reasons did not mention that she had run out of her percocet. Due for pain injection next week per patient See exam Acute on chronic back pain Herniated disc on MRI in past Ran out of percocet, due for injection next week No red flags today, i.e cauda equina -pain control in ED and anticipate dc w/ pain f/u *DC/Admit/Observation/Transfer Diagnosis at time of Disposition: Chronic low back pain Qualifiers: Back pain laterality: unspecified Sciatica presence: without sciatica Qualified Code(s): M54.5 - Low back pain - Discharge Dispostion Disposition: HOME Condition at time of disposition: Improved - Prescriptions Prescriptions: Ibuprofen [Motrin -] 2 tab PO Q6H #30 tablet Lidocaine 5% Patch [Lidoderm Patch -] 1 patch TP DAILY #9 patch - Referrals Referrals: Callie Landry [Primary Care Provider] - - Patient Instructions Additional Instructions: Take medication as directed and follow-up with your pain doctor as scheduled next week - Post Discharge Activity
[2017-07-31] MEDS ORDERED: KETOROLAC TROMETHAMINE 30 MG/1 ML VIAL ONE (19:41)
== END 2017-07-31 19:53 | disposition home or self-care (01) ==
LOC: JER 17:48 → JERFT 17:48
PROC: 3E0233Z Introduction of Anti-inflammatory into Muscle, Percutaneous Approach (ICD-10-PCS; principal; 2017-07-31)
DX: M54.5 Low back pain (principal); G89.29 Other chronic pain; J45.909 Unspecified asthma, uncomplicated; F41.8 Other specified anxiety disorders; E03.9 Hypothyroidism, unspecified; Z85.43 Personal history of malignant neoplasm of ovary
CPT/HCPCS: 99281-25

== ENCOUNTER 2017-09-16 14:38 | Emergency (ER) | payer OTHER ==
[2017-09-16 14:53] VITALS: BP 157/81; PULSE 67; TEMP 97.8; BMI 23.8
--- NOTE | 2017-09-16 15:04 | PDOC ---
History of Present Illness - General Chief Complaint: Back Pain Stated Complaint: PAIN - History of Present Illness Initial Comments: 62 yo female, history of asthma, chronic back pain (pain management in [place] ), herniated disc to lumbar spine on MRI who presents to the emergency department complaining of another episode of chronic back pain. Pt with extensive hx of chronic back pain, seen multiple times in ED for pain control, most recent in July 2017. Pt is seen by pain management physician in [place] and normally takes percocet for pain control. Pt states her pain began last night, primarily in L lumbar region, 10 out of 10, with no radiation, exacerbated by deep breathing and movement, similar to prior episodes of pain in past. Pt also endorses cough, chills and diffuse myalgias since yesterday. Pt denies any LE weakness/numbness, urinary/bowel incontinence, saddle anesthesia. Patient denies chest pain, shortness of breath, headache or dizziness. Denies fever, nausea, vomiting, diarrhea and constipation. Denies dysuria, frequency, urgency and hematuria. Allergies: Levaquin Past surgical history: BL hip replacements Social History: current smoker 1ppd, no alcohol, marijuana and cocaine use PMD: Dr. Venecia Landry Past History - Past Medical History Allergies/Adverse Reactions: Allergies Allergy/AdvReac Type Severity Reaction Status Date / Time levofloxacin [From Levaquin] Allergy Mild Itching Verified 09/16/17 14:49 Home Medications: Ambulatory Orders Albuterol Sulfate Inhaler - [Ventolin HFA Inhaler -] 1 - 2 inh PO Q4H PRN #1 inhaler 05/05/17 Albuterol Sulfate Inhaler - [Ventolin HFA Inhaler -] 2 inh PO Q4H #1 inh Azithromycin [Zithromax 250mg Tablets -] 250 mg PO UTDICT #6 tab 06/08/17 Cefpodoxime Proxetil [Vantin -] 200 mg PO Q12H 5 Days #20 tablet 06/08/17 Lidocaine 5% Patch [Lidoderm Patch -] 1 patch TP DAILY PRN #30 patch 06/08/17 Methocarbamol [Robaxin -] 500 mg PO TID PRN #21 tablet 06/08/17 Ibuprofen [Motrin -] 2 tab PO Q6H #30 tablet 07/31/17 Lidocaine 5% Patch [Lidoderm Patch -] 1 patch TP DAILY #9 patch 07/31/17 Acetaminophen [Tylenol -] 500 mg PO Q4H #100 tablet 09/16/17 Silver Sulfadiazine 1% Top Cr [Silvadene -] 1 applic TP DAILY #1 jar 09/16/17 Anemia: Yes Asthma: Yes Cancer: Yes (ovarian) Cardiac Disorders: Yes CVA: No COPD: Yes CHF: No DVT: No Dementia: No Diabetes: No GI Disorders: Yes (bleeding ulcer) Disorders: Yes (KIDNEY STONE;) HTN: Yes Hypercholesterolemia: Yes Kidney Stones: Yes Liver Disease: No Psychiatric Problems: Yes (ANXIETY, DEPRESSION) Seizures: No Thyroid Disease: Yes (hypothyroid) - Surgical History Abdominal Surgery: No Appendectomy: No Cardiac Surgery: No Cholecystectomy: No Lung Surgery: No Neurologic Surgery: No Orthopedic Surgery: Yes (B/L hip replacement (rt 2009; left 2012)) - Immunization History Td Vaccination: Yes TDAP Vaccination: No Immunization Up to Date: Yes - Suicide/Smoking/Psychosocial Hx Smoking Status: Yes Smoking History: Current every day smoker Years of Tobacco Use: 30 Have you smoked in the past 12 months: No Number of Cigarettes Smoked Daily: 8 If you are a former smoker, when did you quit?: refused booklet 07/21/14 Cigars Per Day: 20 Information on smoking cessation initiated: No 'Breaking Loose' booklet given: 06/28/16 Hx Alcohol Use: No Drug/Substance Use Hx: No Substance Use Type: None, Cocaine, Marijuana Hx Substance Use Treatment: Yes ([facility] - did not complete) Review of Systems - Review of Systems Comments:: GENERAL/CONSTITUTIONAL: No fever or chills. No weakness. HEAD, EYES, EARS, NOSE AND THROAT: No change in vision. No ear pain or discharge. No sore throat. CARDIOVASCULAR: No chest pain or shortness of breath RESPIRATORY: +cough; no wheezing, or hemoptysis. GASTROINTESTINAL: No nausea, vomiting, diarrhea or constipation. GENITOURINARY: No dysuria, frequency, or change in urination. MUSCULOSKELETAL: + back pain; No joint or muscle swelling or pain. No neck SKIN: No rash NEUROLOGIC: No headache, vertigo, loss of consciousness, or change in strength/ sensation. ENDOCRINE: No increased thirst. No abnormal weight change HEMATOLOGIC/LYMPHATIC: No anemia, easy bleeding, or history of blood clots. ALLERGIC/IMMUNOLOGIC: No hives or skin allergy. 09/16/17 15:47 *Physical Exam - Vital Signs Last Vital Signs Temp Pulse Resp BP Pulse Ox 97.8 F 67 18 157/81 97 09/16/17 14:49 09/16/17 14:49 09/16/17 14:49 09/16/17 14:49 09/16/17 14:49 - Physical Exam Comments: GENERAL: Elderly woman, Awake, alert, and fully oriented, in mild distress HEAD: No signs of trauma, normocephalic, atraumatic EYES: PERRLA, EOMI, sclera anicteric, conjunctiva clear ENT: Auricles normal inspection, hearing grossly normal, nares patent, oropharynx clear without exudates. Moist mucosa NECK: Normal ROM, supple, no lymphadenopathy, JVD, or masses LUNGS: BL upper airway congestion, diffuse rhonchi; No distress, speaks full sentences HEART: Regular rate and rhythm, normal S1 and S2, no murmurs, rubs or gallops, peripheral pulses normal and equal bilaterally. ABDOMEN: Soft, nontender, normoactive bowel sounds. No guarding, no rebound. No masses; L CVA tender and lower back pain EXTREMITIES : Normal inspection, Normal range of motion, no edema. No clubbing or cyanosis. NEUROLOGICAL: Cranial nerves II through XII grossly intact. Normal speech, normal gait, 5/5 strength, preserved sensation in LEs SKIN: Warm, Dry, normal turgor, no rashes or lesions noted 09/16/17 15:47 Medical Decision Making - Medical Decision Making 62 yo female, history of asthma, chronic back pain (pain management in [place] ), herniated disc to lumbar spine on MRI who presents to the emergency department complaining of another episode of chronic back pain. DDX includes exacerbation of chronic back pain, URI w/ diffuse myalgias, renal stone, LS strain. Plan: - CXR, flu swab, UA, percocet for pain control 09/16/17 16:21 CXR, flu swab negative; pain improved with PO percocet; will discharge home with silvadene cream for hand burn and extra strength tylenol rx for back pain; pt counseled to f/u with her pain management doctor SHOSHANA 05/28/18 18:06 *DC/Admit/Observation/Transfer Diagnosis at time of Disposition: Chronic back pain Qualifiers: Back pain location: low back pain Back pain laterality: unspecified Sciatica presence: without sciatica Qualified Code(s): M54.5 - Low back pain - Discharge Dispostion Disposition: HOME Condition at time of disposition: Good Decision to Admit order: No - Prescriptions Prescriptions: Acetaminophen [Tylenol -] 500 mg PO Q4H #100 tablet Silver Sulfadiazine 1% Top Cr [Silvadene -] 1 applic TP DAILY #1 jar - Referrals Referrals: Callie Landry [Primary Care Provider] - 1 week - Patient Instructions Printed Discharge Instructions: Managing Chronic Low Back Pain Additional Instructions: During your visit to the [facility] ED, you were evaluated for back pain and cough. You received chest xray, flu swab and standard lab tests, which were unremarkable. You are being discharged home with outpatient follow-up with your primary care provider and oil painter. Please take tylenol 650mg every four hours if you experience pain in your back. If you experience any of the following symptoms, please return to the ED: - Persistent fevers/chills >3 days - Loss of bowel or bladder function, worsening gait - Changes in vision, numbness/weakness in any extremities, or persistent dizziness/loss of consciousness - Any new or concerning symptoms - Post Discharge Activity
--- NOTE | 2017-09-16 16:43 | PDOC ---
Attending Attestation - Resident Resident Name: Adal Morel - ED Attending Attestation I have performed the following: I have examined & evaluated the patient, The case was reviewed & discussed with the resident, I agree w/resident's findings & plan, Exceptions are as noted - HPI HPI: 09/16/17 16:37 62 F with h/o asthma, chronic lower back pain 2/2 herniated disc in L spine, presenting to ED with back pain and cough. Pt states that this is exact same pain she has had in the past. Denies LE weakness or numbness, denies incontinence, denies saddle anesthesia. Pt still ambulatory with some assistance (baseline). Pt also complains of cough, chills, and myalgias. Patient denies chest pain, shortness of breath, headache or dizziness. Denies fever, nausea, vomiting, diarrhea and constipation. Denies dysuria, frequency, urgency and hematuria. Allergies: Levaquin Past surgical history: BL hip replacements Social History: current smoker 1ppd, no alcohol, marijuana and cocaine use PMD: Dr. Venecia Landry - Physicial Exam PE: 09/16/17 16:41 "GENERAL: Awake, alert, and fully oriented, in no acute distress. HEAD: No signs of trauma EYES: PERRLA, EOMI, sclera anicteric, conjunctiva clear ENT: Auricles normal inspection, hearing grossly normal, nares patent, oropharynx clear without exudates. Moist mucosa NECK: Nontender, no stepoffs, Normal ROM, supple, no lymphadenopathy, JVD, or masses LUNGS: Diffuse rhonchi HEART: Regular rate and rhythm, normal S1 and S2, no murmurs, rubs or gallops ABDOMEN: Soft, nontender, normoactive bowel sounds. No guarding, no rebound. No masses EXTREMITIES: Normal range of motion, no edema. No clubbing or cyanosis. No cords, erythema, or tenderness NEUROLOGICAL: Cranial nerves II through XII intact. 5/5 strength and sensation in all extremities, Normal speech, normal gait, normal cerebellar function SKIN: Warm, Dry, normal turgor, no rashes or lesions noted. - Medical Decision Making 09/16/17 16:42 62 F with chronic back pain presenting with back pain and cough. Pt's pain is consistent with her usual lower back pain. Pt with rhonchi on lung exam. Will r/ o PNA. - CXR - Percocet CXR clear Pt is well appearing, with normal vitals. Clinically stable for DC at this time. I discussed the physical exam findings, ancillary test results and final diagnoses with the patient. I answered all of the patient's questions. The patient was satisfied with the care received and felt comfortable with the discharge plan and treatment plan. The patient agrees to follow up with the primary care physician within 24-72 hours.
[2017-09-16 17:24] LABS: URINE APPEARANCE CLEAR; URINE BILIRUBIN NEGATIVE (<2.0 mg/dL); URINE COLOR STRAW; URINE GLUCOSE (UA) 2+ (NEGATIVE); URINE KETONE NEGATIVE (NEGATIVE); URINE NITRITE NEGATIVE (NEGATIVE); URINE UROBILINOGEN NEGATIVE mg/dL (0.2-1.0)
[2017-09-16 17:27] LABS: URINE LEUK ESTERASE 1+ (NEGATIVE); URINE PROTEIN 3+ (NEGATIVE)
[2017-09-16 17:29] LABS: EPI CELLS RARE /HPF (FEW)
== END 2017-09-16 18:05 | disposition home or self-care (01) ==
LOC: JER 14:38
DX: M54.5 Low back pain (principal); G89.29 Other chronic pain; D64.9 Anemia, unspecified; J45.909 Unspecified asthma, uncomplicated; I10 Essential (primary) hypertension; E78.00 Pure hypercholesterolemia, unspecified; E03.9 Hypothyroidism, unspecified; J44.9 Chronic obstructive pulmonary disease, unspecified; Z96.643 Presence of artificial hip joint, bilateral; F41.8 Other specified anxiety disorders; Z85.43 Personal history of malignant neoplasm of ovary
CPT/HCPCS: 71045-TC-FY; 81003; 81015; 87804; 99281-25

== ENCOUNTER 2017-09-17 00:05 | Emergency (ER) | payer OTHER ==
[2017-09-17 00:24] VITALS: BP 142/76; PULSE 92; TEMP 98; BMI 23.8
[2017-09-17] MEDS ORDERED: KETOROLAC TROMETHAMINE 30 MG/1 ML VIAL IM ONE (00:49)
[2017-09-17] MEDS ORDERED: CEPHALEXIN MONOHYDRATE 500 MG CAPSULE (UD) PO ONE (00:49)
[2017-09-17] MEDS ORDERED: CEPHALEXIN MONOHYDRATE 500 MG CAPSULE (UD) ONE (00:54)
[2017-09-17] MEDS ORDERED: KETOROLAC TROMETHAMINE 30 MG/1 ML VIAL ONE (00:54)
--- NOTE | 2017-09-17 01:16 | PDOC ---
History of Present Illness - General Chief Complaint: Back Pain Stated Complaint: BACK PAIN Time Seen by Provider: 09/17/17 00:43 - History of Present Illness Initial Comments: 09/17/17 01:13 62-year-old female with multiple visits to this ER for chronic back pain seen earlier today complaining of lower back pain. Patient is also noted to have blister status post burn to left index middle and ring finger. With surrounding erythema patient reports that she burned her fingers while she was cooking. Previous ER visit reviewed patient was given 1 tablet of Percocet for pain. Currently, Patient is requesting a shot for pain. Past History - Past Medical History Allergies/Adverse Reactions: Allergies Allergy/AdvReac Type Severity Reaction Status Date / Time levofloxacin [From [employer]] Allergy Mild Itching Verified 09/17/17 00:23 Home Medications: Ambulatory Orders Albuterol Sulfate Inhaler - [Ventolin HFA Inhaler -] 1 - 2 inh PO Q4H PRN #1 inhaler 05/05/17 Albuterol Sulfate Inhaler - [Ventolin HFA Inhaler -] 2 inh PO Q4H #1 inh Azithromycin [Zithromax 250mg Tablets -] 250 mg PO UTDICT #6 tab 06/08/17 Cefpodoxime Proxetil [Vantin -] 200 mg PO Q12H 5 Days #20 tablet 06/08/17 Lidocaine 5% Patch [Lidoderm Patch -] 1 patch TP DAILY PRN #30 patch 06/08/17 Methocarbamol [Robaxin -] 500 mg PO TID PRN #21 tablet 06/08/17 Ibuprofen [Motrin -] 2 tab PO Q6H #30 tablet 07/31/17 Lidocaine 5% Patch [Lidoderm Patch -] 1 patch TP DAILY #9 patch 07/31/17 Acetaminophen [Tylenol -] 500 mg PO Q4H #100 tablet 09/16/17 Silver Sulfadiazine 1% Top Cr [Silvadene -] 1 applic TP DAILY #1 jar 09/16/17 Cephalexin Monohydrate [Keflex -] 500 mg PO Q8H #21 capsule 09/17/17 Anemia: Yes Asthma: Yes Cancer: Yes (ovarian) Cardiac Disorders: Yes CVA: No COPD: Yes CHF: No DVT: No Dementia: No Diabetes: No GI Disorders: Yes (bleeding ulcer) Disorders: Yes (KIDNEY STONE;) HTN: Yes Hypercholesterolemia: Yes Kidney Stones: Yes Liver Disease: No Psychiatric Problems: Yes (ANXIETY, DEPRESSION) Seizures: No Thyroid Disease: Yes (hypothyroid) - Surgical History Abdominal Surgery: No Appendectomy: No Cardiac Surgery: No Cholecystectomy: No Lung Surgery: No Neurologic Surgery: No Orthopedic Surgery: Yes (B/L hip replacement (rt 2009; left 2012)) - Immunization History Td Vaccination: Yes TDAP Vaccination: No Immunization Up to Date: Yes - Suicide/Smoking/Psychosocial Hx Smoking Status: Yes Smoking History: Current every day smoker Years of Tobacco Use: 30 Have you smoked in the past 12 months: Yes Number of Cigarettes Smoked Daily: 8 If you are a former smoker, when did you quit?: refused booklet 07/21/14 Cigars Per Day: 20 Information on smoking cessation initiated: No 'Breaking Loose' booklet given: 06/28/16 Hx Alcohol Use: Yes Drug/Substance Use Hx: No Substance Use Type: None, Cocaine, Marijuana Hx Substance Use Treatment: Yes ([facility] 2012 - did not complete) *Physical Exam - Vital Signs Last Vital Signs Temp Pulse Resp BP Pulse Ox 98.0 F 92 H 18 142/76 97 09/17/17 00:18 09/17/17 00:18 09/17/17 00:18 09/17/17 00:18 09/17/17 00:18 - Physical Exam General Appearance: Yes: Appropriately Dressed Respiratory/Chest: positive: Lungs Clear, Normal Breath Sounds Cardiovascular: positive: Regular Rate Gastrointestinal/Abdominal: positive: Normal Bowel Sounds, Soft Extremity: positive: Normal Capillary Refill, Normal Inspection, Normal Range of Motion, Other (blisters and burn to right 2nd and 3rd digit) Integumentary: positive: Normal Color, Dry, Warm Neurologic: positive: Fully Oriented, Alert, Normal Mood/Affect ED Treatment Course - Medications Given in the ED: ED Medications Discontinued Medications Generic Name Dose Route Start Last Admin Trade Name Freq PRN Reason Stop Dose Admin Cephalexin HCl 500 mg 09/17/17 00:49 09/17/17 00:52 Keflex - PO 09/17/17 00:50 500 mg ONCE ONE Administration Ketorolac Tromethamine 30 mg 09/17/17 00:49 09/17/17 00:52 Toradol Injection - IM 09/17/17 00:50 30 mg ONCE ONE Administration Medical Decision Making - Medical Decision Making chronic back pain cellulitis of hand P: pain control cephalexin *DC/Admit/Observation/Transfer Diagnosis at time of Disposition: Cellulitis of hand Burn, hands, second degree Qualifiers: Encounter type: initial encounter Burn of hand location: multiple fingers excluding thumb Laterality: left Qualified Code(s): T23.232A - Burn of second degree of multiple left fingers (nail), not including thumb, initial encounter Back pain Qualifiers: Back pain location: low back pain Chronicity: chronic Back pain laterality: bilateral Sciatica presence: without sciatica Qualified Code(s): M54.5 - Low back pain - Discharge Dispostion Disposition: HOME Condition at time of disposition: Fair - Prescriptions Prescriptions: Cephalexin Monohydrate [Keflex -] 500 mg PO Q8H #21 capsule - Referrals - Patient Instructions Printed Discharge Instructions: Low Back Pain - Post Discharge Activity
== END 2017-09-17 01:16 | disposition home or self-care (01) ==
LOC: SUPCPDRO 00:05 → JER 00:05
PROC: 3E0233Z Introduction of Anti-inflammatory into Muscle, Percutaneous Approach (ICD-10-PCS; principal; 2017-09-17)
DX: T23.232A Burn of second degree of multiple left fingers (nail), not including thumb, initial encounter (principal); L03.114 Cellulitis of left upper limb; M54.5 Low back pain; G89.29 Other chronic pain; X19.XXXA Contact with other heat and hot substances, initial encounter; Y93.G3 Activity, cooking and baking; Y92.030 Kitchen in apartment as the place of occurrence of the external cause; Y99.8 Other external cause status; D64.9 Anemia, unspecified; J45.909 Unspecified asthma, uncomplicated; J44.9 Chronic obstructive pulmonary disease, unspecified; I10 Essential (primary) hypertension; F41.8 Other specified anxiety disorders; E03.9 Hypothyroidism, unspecified; E78.00 Pure hypercholesterolemia, unspecified; Z85.43 Personal history of malignant neoplasm of ovary; Z96.643 Presence of artificial hip joint, bilateral
CPT/HCPCS: 96372; 99281-25

== ENCOUNTER 2017-11-02 16:50 | Inpatient (IN) | payer OTHER ==
--- NOTE | 2017-11-02 17:41 | PDOC ---
History of Present Illness - General History Source: Patient Exam Limitations: No Limitations - History of Present Illness Initial Comments: 11/02/17 18:03 The patient is a 62 year old female with a significant PMH of asthma, anemia, chronic kidney disease,chronic back pain, herniated disc to lumbar spine on MRI as per patient, takes percocet, frequent ER visits for back pain exacerbation presenting with fatigue, productive cough, mild shortness of breath and chest pain over the past week. The patient states she had tried albuterol at home with no relief. The patient reports her chronic pain flared up this past week. Patient describes her back pain is localized in the lower back, nonradiating, with 9/10 in severity. Patient is requesting pain medications at this time. The patient is also complaining of subjective fevers and chills. Patient states she last had prednisone months ago. The patient denies headache and dizziness. Denies nausea, vomit, diarrhea and constipation. Denies dysuria, frequency, urgency and hematuria. Allergies: levofloxacin Social history: No reported alcohol use. Cannabis use. Current everyday smoker; ppd. <Dara Leon - Last Filed: 11/02/17 18:06> <Arnav Hand - Last Filed: 11/02/17 20:31> - General Chief Complaint: Weakness Stated Complaint: FATIGUE Time Seen by Provider: 11/02/17 17:10 Past History <Dara Leon - Last Filed: 11/02/17 18:06> - Past Medical History Anemia: Yes Asthma: Yes Cancer: Yes (ovarian) Cardiac Disorders: Yes CVA: No COPD: Yes CHF: No DVT: No Dementia: No Diabetes: No GI Disorders: Yes (bleeding ulcer) Disorders: Yes (KIDNEY STONE;) HTN: Yes Hypercholesterolemia: Yes Kidney Stones: Yes Liver Disease: No Psychiatric Problems: Yes (ANXIETY, DEPRESSION) Seizures: No Thyroid Disease: Yes (hypothyroid) - Surgical History Abdominal Surgery: No Appendectomy: No Cardiac Surgery: No Cholecystectomy: No Lung Surgery: No Neurologic Surgery: No Orthopedic Surgery: Yes (B/L hip replacement (rt 2009; left 2012)) - Immunization History Td Vaccination: Yes TDAP Vaccination: No Immunization Up to Date: Yes - Suicide/Smoking/Psychosocial Hx Smoking Status: Yes Smoking History: Current every day smoker Years of Tobacco Use: 30 Have you smoked in the past 12 months: No Number of Cigarettes Smoked Daily: 8 If you are a former smoker, when did you quit?: refused booklet 07/21/14 Cigars Per Day: 20 Information on smoking cessation initiated: No 'Breaking Loose' booklet given: 06/28/16 Hx Alcohol Use: No Drug/Substance Use Hx: No Substance Use Type: None, Cocaine, Marijuana Hx Substance Use Treatment: Yes ([facility] 2013 - did not complete) <Arnav Hand - Last Filed: 11/02/17 20:31> - Past Medical History Allergies/Adverse Reactions: Allergies Allergy/AdvReac Type Severity Reaction Status Date / Time levofloxacin [From [employer]] Allergy Mild Itching Verified 11/02/17 16:54 Home Medications: Ambulatory Orders Acetaminophen 500 mg PO Q4H PRN 11/02/17 Albuterol Sulfate Inhaler - [Ventolin Hfa Inhaler -] 1 - 2 inh PO Q4H PRN Albuterol Sulfate Inhaler - [Ventolin Hfa Inhaler -] 2 inh PO Q4H 11/02/17 Lidocaine 5% Patch [Lidoderm Patch -] 1 patch TP DAILY PRN 11/02/17 Methocarbamol [Robaxin -] 500 mg PO TID PRN 11/02/17 Silver Sulfadiazine 1% Top Cr [Silvadene -] 1 applic TP DAILY 11/02/17 Review of Systems - Review of Systems Constitutional: Yes: Chills. No: Fever Respiratory: Yes: Cough, Shortness of Breath Cardiac (ROS): No: Chest Pain ABD/GI: Yes: Poor Appetite. No: Constipated, Diarrhea, Nausea, Vomiting : No: Dysuria, Frequency Neurological: No: Headache All Other Systems: Reviewed and Negative <Arnav Hand - Last Filed: 11/02/17 20:31> *Physical Exam - Vital Signs Last Vital Signs Temp Pulse Resp BP Pulse Ox 98.4 F 108 H 20 111/70 100 11/02/17 16:52 11/02/17 16:52 11/02/17 16:52 11/02/17 16:52 11/02/17 16:52 - Physical Exam Comments: 11/02/17 18:03 GENERAL: The patient is awake, alert, and fully oriented. (+) Resting but speaking clearly. ENT: Ears normal, nares patent, oropharynx clear without exudates. (+) Dry mucous membranes. NECK: Normal range of motion, supple without lymphadenopathy, JVD, or masses. LUNGS: (+) Coarse breath sounds worse at both bases, otherwise symmetric. No prolonged expiration. No obvious wheezing. No crackles. HEART: Regular rate and rhythm, normal S1 and S2 without murmur or rub. ABDOMEN: Soft/nontender/nondistended. BS wnl. No guarding or rebound. No palpable masses. No hepatosplenomegaly. EXTREMITIES: Normal range of motion, no edema. No clubbing or cyanosis. No cords, erythema, or tenderness. NEUROLOGICAL: Cranial nerves II through XII grossly intact. Normal speech. PSYCH: Normal mood, normal affect. SKIN: Warm, Dry, normal turgor, no rashes or lesions noted. <Dara Leon - Last Filed: 11/02/17 18:06> - Vital Signs Last Vital Signs Temp Pulse Resp BP Pulse Ox 98.4 F 108 H 20 111/70 100 11/02/17 16:52 11/02/17 16:52 11/02/17 16:52 11/02/17 16:52 11/02/17 16:52 <Arnav Hand - Last Filed: 11/02/17 20:31> Heart Score/ECG Review #1 ECG reviewed & interpreted by me at: 17:57 General ECG Interpretation: Sinus Rhythm, Normal Rate (94), Normal Intervals ( qtc 440), No acute ischemic changes (nonspecific T wave flattening I/AVL, V4-6) <Arnav Hand - Last Filed: 11/02/17 20:31> ED Treatment Course - LABORATORY CBC & Chemistry Diagram: 11/02/17 18:40 11/02/17 18:40 <Arnav Hand - Last Filed: 11/02/17 20:31> Medical Decision Making - Medical Decision Making 11/02/17 17:59 62-year-old female with history of asthma, chronic back pain well known to this emergency department for frequent visits secondary to pain exacerbations presents now with 1 week of progressive productive cough with shortness of breath and chills, worsening generalized weakness. No localized chest pain, shortness of breath with exertion but no chest pain with exertion, chills but no measured fevers or night sweats, no focal lung pain. Has not been on steroids for several months, denies any GI complaints. Vital signs are within normal limits, O2 sat is 100% on room air. Afebrile. Asleep but arousable, dry mucosa and chronically generally weak. Course breath sounds bilaterally worse at the bases, otherwise symmetric and good air entry bilaterally without wheezing or prolonged expiration. Abdomen benign. No edema Neuro nonfocal 62-year-old female with history of asthma presents with more productive cough over the last week, shortness of breath. Question asthma exacerbation in the setting of viral URI/bronchitis, rule out pneumonia. Atypical for ACS, slightly dehydrated so we'll check electrolytes. Labs, EKG, chest x-ray Nebulizers, steroids iv fluids reassess 11/02/17 19:15 leukocytosis of 22k, hgb stable. Chem/CXR pending, EKG with some lateral nonspecific T wave changes, otherwise unchanged. Receiving nebs. Will treat empirically for CAP with ceftriaxone/azithro. 11/02/17 20:29 On my preliminary review, chest x-ray shows right middle and right lower lobe infiltrate, chemistries notable for acute renal insufficiency with creatinine of 4.9, baseline is 3, potassium 3.4. Troponin negative. Received antibiotics, will proceed with admission given her poor pulmonary history, leukocytosis, and generalized weakness. Accepted for observation med/ surg by Dr. Valenzuela, signout given to Dr. Delacruz. <Arnav Hand - Last Filed: 11/02/17 20:31> *DC/Admit/Observation/Transfer - Attestations Scribe Attestion: 11/02/17 18:06 Documentation prepared by Dara Leon, acting as medical surgical tech for Arnav Hand MD. <Dara Leon - Last Filed: 11/02/17 18:06> - Discharge Dispostion Decision to Admit order: Yes <Arnav Hand - Last Filed: 11/02/17 20:31> Diagnosis at time of Disposition: Acute exacerbation of COPD with asthma, Cough Pneumonia Qualifiers: Pneumonia type: due to unspecified organism Laterality: right Lung location: unspecified part of lung Qualified Code(s): J18.9 - Pneumonia, unspecified organism - Discharge Dispostion Condition at time of disposition: Fair
[2017-11-02] MEDS ORDERED: SODIUM CHLORIDE 500 ML IV ONE (17:46)
[2017-11-02] MEDS ORDERED: ALBUTEROL SO4 2.5/IPRATROPIUM 0.5 INH SOL 3 ML VIAL.NEB. NEB ONE (17:47)
[2017-11-02] MEDS ORDERED: methylPREDNISolone NA SUCC 125 MG/2 ML VIAL IVPUSH ONE (17:53)
[2017-11-02 18:47] LABS: HEMATOCRIT 32.8 % (32.4-45.2); HEMOGLOBIN 10.8 GM/dL (10.7-15.3); MCH 27.9 pg (25.7-33.7); MEAN CELL VOLUME 84.5 fl (80-96); MEAN PLT VOLUME 7.5 fl (7.5-11.1); PLATELET COUNT 494 K/MM3 (134-434); RBC 3.88 M/mm3 (3.60-5.2); RDW 16.7 % (11.6-15.6); WHITE BLOOD COUNT 22.1 K/mm3 (4.0-10.0)
[2017-11-02 19:10] LABS: ALBUMIN 2.7 g/dl (3.4-5.0); ANION GAP 16 (8-16); BILIRUBIN,TOTAL 0.4 mg/dL (0.2-1.0); BLOOD UREA NITROGEN 73 mg/dL (7-18); CALCIUM 8.8 mg/dL (8.5-10.1); CHLORIDE 97 mmol/L (98-107); CO2 21 mmol/L (21-32); CREATININE 4.9 mg/dL (0.55-1.02); GLUCOSE,RANDOM 119 mg/dL (74-106); MAGNESIUM 2.5 mg/dL (1.8-2.4); POTASSIUM 3.4 mmol/L (3.5-5.1); SGOT/AST 17 U/L (15-37); SGPT/ALT 20 U/L (12-78); SODIUM 134 mmol/L (136-145); TOT PROT 7.2 g/dl (6.4-8.2)
[2017-11-02 19:13] LABS: ALK PHOS 191 U/L (45-117)
[2017-11-02] MEDS ORDERED: CEFTRIAXONE 1,000 MG in DEXTROSE 5%-WATER - 50 ML IVPB ONE (19:14)
[2017-11-02] MEDS ORDERED: AZITHROMYCIN IVPB 500 MG in DEXTROSE 5%-WATER - 250 ML IVPB ONE (19:14)
[2017-11-02] MEDS ORDERED: POTASSIUM CHLORIDE TABS 20 MEQ TABLET.ER (FP) PO ONE ×2 (20:05→21:30)
[2017-11-02 20:26] LABS: INR 1.24 (0.82-1.09)
[2017-11-02] MEDS ORDERED: cefTRIAXone SODIUM 1 GM VIAL ONE ×2 (20:28→21:05)
[2017-11-02] MEDS ORDERED: AZITHROMYCIN IVPB 250 ML IVPB ONE (20:28)
[2017-11-02 20:37] LABS: ANISOCYTOSIS 1+; MACROCYTOSIS 1+
[2017-11-02 20:39] LABS: PLATELET ESTIMATE INCREASED
[2017-11-02] MEDS ORDERED: CEFTRIAXONE 2 GM-D5W BAG 2 GM/50 ML BAG IVPB SCH (21:00)
[2017-11-02] MEDS ORDERED: ACETAMINOPHEN 325 MG TABLET (FP) ONE (21:30)
[2017-11-02] MEDS: ACETAMINOPHEN 325 MG TABLET (FP) PO SCH (21:33)
[2017-11-02] MEDS: MELATONIN 5 MG TABLETS PO SCH (22:10)
--- NOTE | 2017-11-02 23:12 | PN ---
Teaching Attending Note Name of Resident: Forrest Delacruz ATTENDING PHYSICIAN STATEMENT I saw and evaluated the patient. Chart, data, imaging reviewed. I reviewed the resident's note and discussed the case with the resident. I agree with the resident's findings and plan as documented. SUBJECTIVE: 62 year old female with a significant PMH of asthma, anemia, chronic kidney disease,chronic back pain, herniated disc c/o shortness of breath and productive cough for the past several days. Also with some back pain which is b/ l and worse with coughing. Not hospitalized recently, no recent travels, no sick contacts. OBJECTIVE: Last Vital Signs Temp Pulse Resp BP Pulse Ox 98.7 F 84 20 95/54 94 L 11/02/17 22:47 11/02/17 22:49 11/02/17 22:47 11/02/17 22:47 11/02/17 22:49 general- nad, aaox3, appears chronically ill heent- moist oral mucosa chest -bibasilar crackles appreciated, b/l diffuse expiratory wheezing appreciated cv-s1+s2+ rrr chest -cta b/l abdomen- soft, nt, bs+ ext -no pedal edema Abnormal Lab Results 11/02/17 11/02/17 11/02/17 18:40 18:40 18:40 WBC 22.1 H RDW 16.7 H Plt Count 494 H D Neutrophils % (Manual) 90.0 H Lymphocytes % (Manual) 5.0 L PT with INR 14.00 H INR 1.24 H Sodium 134 L Potassium 3.4 L Chloride 97 L BUN 73 H Creatinine 4.9 H Random Glucose 119 H Magnesium 2.5 H Alkaline Phosphatase 191 H Albumin 2.7 L cxr -reviewed by me- b/l basilar infiltrates seen ASSESSMENT AND PLAN: 62yo woman with sepsis secondary to community acquired pneumonia and acute asthma/COPD exacerbation. #community acquired pneumonia -sputum culture -blood cultures x2 -urine legionella antigen -azithromycin 500mg IV daily -ceftriaxone 2g IV q24hrs -supplement oxygen via nasal cannula -ekg #Acute asthma/COPD exacerbation -duonebs q6hrs -methylprednisone 40mg IV 8hrs -peak flow monitoring -start LABA and ICS inpatient restart home medications for chronic medical problems heparin sc for dvt ppx
--- NOTE | 2017-11-03 03:00 | HP ---
CHIEF COMPLAINT: Shortness of breath, cough HISTORY OF PRESENT ILLNESS: 62 year old female with a significant PMH of asthma, anemia, chronic kidney disease,chronic back pain, presents for 1 week of shortness of breath, cough, and weakness. Patient states that her cough was initially productive of white sputum but later in the week changed to yellow sputum. She reports subjective fevers and chills but did not measure her temperature. Has not been around any sick contacts. Denies overt chest pain, but patient complains of lower back pain that is made worse when she coughs. She reports her back pain is chronic and is due to a disc herniation found on an MRI in the past. Patient reports being on percocet. Denies current fevers, chills, nausea, vomiting, diarrhea, abdominal pain. ER course was notable for: (1) WBC 22 (2) Hgb 10 (3) PAST MEDICAL HISTORY: asthma, anemia, CKD, chronic back pain PAST SURGICAL HISTORY: Social History: Smoking: Alcohol: Drugs: Family History: Allergies levofloxacin [From [employer]] Allergy (Mild, Verified 11/02/17 16:54) Itching HOME MEDICATIONS: Home Medications Medication Instructions Recorded Acetaminophen 500 mg PO Q4H PRN 11/02/17 Albuterol Sulfate Inhaler - 1 - 2 inh PO Q4H PRN 11/02/17 [Ventolin Hfa Inhaler -] Albuterol Sulfate Inhaler - 2 inh PO Q4H 11/02/17 [Ventolin Hfa Inhaler -] Lidocaine 5% Patch [Lidoderm Patch 1 patch TP DAILY PRN 11/02/17 -] Methocarbamol [Robaxin -] 500 mg PO TID PRN 11/02/17 Silver Sulfadiazine 1% Top Cr 1 applic TP DAILY 11/02/17 [Silvadene -] REVIEW OF SYSTEMS CONSTITUTIONAL: Absent: fever, chills, diaphoresis, generalized weakness, malaise, loss of appetite, weight change HEENT: Absent: rhinorrhea, nasal congestion, throat pain, throat swelling, difficulty swallowing, mouth swelling, ear pain, eye pain, visual changes CARDIOVASCULAR: Absent: chest pain, syncope, palpitations, irregular heart rate, lightheadedness , peripheral edema RESPIRATORY: cough, shortness of breath, wheezing Absent: dyspnea with exertion, orthopnea, stridor, hemoptysis GASTROINTESTINAL: Absent: abdominal pain, abdominal distension, nausea, vomiting, diarrhea, constipation, melena, hematochezia GENITOURINARY: Absent: dysuria, frequency, urgency, hesitancy, hematuria, flank pain, genital pain MUSCULOSKELETAL: back pain Absent: myalgia, arthralgia, joint swelling, neck pain SKIN: Absent: rash, itching, pallor HEMATOLOGIC/IMMUNOLOGIC: Absent: easy bleeding, easy bruising, lymphadenopathy, frequent infections ENDOCRINE: Absent: unexplained weight gain, unexplained weight loss, heat intolerance, cold intolerance NEUROLOGIC: Absent: headache, focal weakness or paresthesias, dizziness, unsteady gait, seizure, mental status changes, bladder or bowel incontinence PSYCHIATRIC: Absent: anxiety, depression, suicidal or homicidal ideation, hallucinations. PHYSICAL EXAMINATION Vital Signs - 24 hr 11/02/17 11/02/17 11/02/17 16:52 22:47 22:49 Temperature 98.4 F 98.7 F Pulse Rate 108 H 84 Pulse Rate [ 84 Left] Respiratory 20 20 Rate Blood Pressure 111/70 Blood Pressure 95/54 [Left Arm] O2 Sat by Pulse 100 91 L 94 L Oximetry (%) 11/03/17 00:52 Temperature 98.3 F Pulse Rate Pulse Rate [ 88 Left] Respiratory 22 Rate Blood Pressure Blood Pressure 110/69 [Left Arm] O2 Sat by Pulse 94 L Oximetry (%) GENERAL: A&Ox3, no acute distress EYES: PERRLA, EOMI ENT: Moist mucus membranes NECK: No JVD LUNGS: bilateral wheezes noted on exam HEART: tachycardic, no murmurs ABDOMEN: Soft, nontender, BS present MUSCULOSKELETAL: No CVA Tenderness EXTREMITIES: 2+ pulses, no edema. NEUROLOGICAL: Cranial nerves II-XII intact Laboratory Results - last 24 hr 11/02/17 11/02/17 11/02/17 18:40 18:40 18:40 WBC 22.1 H RBC 3.88 Hgb 10.8 Hct 32.8 MCV 84.5 MCH 27.9 MCHC 33.0 RDW 16.7 H Plt Count 494 H D MPV 7.5 Absolute Neuts (auto) 20.0 Neutrophils % No Result Required. Neutrophils % (Manual) 90.0 H Lymphocytes % No Result Required. Lymphocytes % (Manual) 5.0 L Monocytes % (Manual) 4 Eosinophils % (Manual) 1.0 Nucleated RBC % 0 Hypochromia 1+ Platelet Estimate Increased Platelet Comment No clumping noted Anisocytosis 1+ Macrocytosis 1+ PT with INR 14.00 H INR 1.24 H Sodium 134 L Potassium 3.4 L Chloride 97 L Carbon Dioxide 21 Anion Gap 16 BUN 73 H Creatinine 4.9 H Creat Clearance w eGFR 9.04 Random Glucose 119 H Calcium 8.8 Magnesium 2.5 H Total Bilirubin 0.4 AST 17 ALT 20 Alkaline Phosphatase 191 H Creatine Kinase 32 Troponin I < 0.02 Total Protein 7.2 Albumin 2.7 L ASSESSMENT/PLAN: 62 year old female with a significant PMH of asthma, anemia, chronic kidney disease,chronic back pain, presents for 1 week of shortness of breath, cough, and weakness and admitted for the treatment of sepsis 2/2 pneumonia. #Sepsis 2/2 Pneumonia: patient has elevated WBC and tachycardia as well as new RLL infiltrates on CXR -ED gave ceftriaxone/azithromycin -would continue rocephin 2gm daily and azithromycin 500mg daily -patient also likely has a component of asthma/COPD exacerbation due to diffuse wheezing bilaterally -add solumedrol 40mg daily and duonebs as needed #Chronic Back Pain: would confirm opiate dose in AM before restarting dosaging #Hypokalemia: -replete K with Kdur 40meq #Chronic Kidney Disease: -not on any medications #Hypertension: not on medications -monitor BP in AM #FEN no standing fluids replete potassium and recheck BMP in AM #Prophylaxis -early ambulation #Disposition: -admit obs Visit type - Emergency Visit Emergency Visit: Yes ED Registration Date: 11/02/17 Care time: The patient presented to the Emergency Department on the above date and was hospitalized for further evaluation of their emergent condition. - New Patient This patient is new to me today: Yes Date on this admission: 11/03/17 - Critical Care Critical Care patient: No Hospitalist Screening - Colonoscopy Questionnaire Colonoscopy Questionnaire: Colonoscopy Questionnaire - Patient: 50 - 75 years old and never had a screening colonoscopy: Unknown History of colon or rectal polyps, or CA: Unknown History of IBD, Crohn's disease or UC: Unknown History of abdominal radiation therapy as a child: Unknown - Relative: 1 with colon or rectal CA, or polyps at age 60 or younger: Unknown Colon or rectal CA diagnosed at age 45 or younger: Unknown Multiple relatives with colon or rectal CA: Unknown - Outcome: Screening Result: Negative Screen
[2017-11-03] MEDS: ACETAMINOPHEN 325 MG TABLET (FP) PO SCH ×4 (03:46→21:16)
[2017-11-03 08:02] LABS: HEMATOCRIT 28.5 % (32.4-45.2); HEMOGLOBIN 9.6 GM/dL (10.7-15.3); MCH 28.4 pg (25.7-33.7); MCHC 33.7 g/dl (32.0-36.0); MEAN CELL VOLUME 84.3 fl (80-96); MEAN PLT VOLUME 7.6 fl (7.5-11.1); PLATELET COUNT 446 K/MM3 (134-434); RBC 3.38 M/mm3 (3.60-5.2); RDW 16.2 % (11.6-15.6); WHITE BLOOD COUNT 12.1 K/mm3 (4.0-10.0)
[2017-11-03 08:18] LABS: ANION GAP 13 (8-16); BLOOD UREA NITROGEN 82 mg/dL (7-18); CHLORIDE 101 mmol/L (98-107); CO2 21 mmol/L (21-32); CREATININE 4.8 mg/dL (0.55-1.02); GLUCOSE,RANDOM 129 mg/dL (74-106); MAGNESIUM 2.6 mg/dL (1.8-2.4); PHOSPHOROUS 4.9 mg/dL (2.5-4.9); POTASSIUM 4.1 mmol/L (3.5-5.1); SODIUM 135 mmol/L (136-145)
[2017-11-03] MEDS: AZITHROMYCIN IVPB 500 MG in DEXTROSE 5%-WATER - 250 ML IVPB SCH (09:46)
[2017-11-03] MEDS ORDERED: methylPREDNISolone NA SUCC 40 MG/1 ML VIAL IVPUSH SCH (10:00)
[2017-11-03] MEDS: CEFTRIAXONE 2 GM in DEXTROSE 5%-WATER - 50 ML IVPB SCH (10:44)
[2017-11-03] MEDS ORDERED: SODIUM CHLORIDE 1,000 ML IV SCH (13:30)
--- NOTE | 2017-11-03 13:47 | PN ---
Progress Note (short form) - Note Progress Note: Subjective: no fever or chills, feels better, SOB is better . denies wheezing prior to admission . dos not know her home meds Objective: Vital Signs: Last Vital Signs Temp Pulse Resp BP Pulse Ox 98.4 F 80 16 109/58 94 L 11/03/17 09:00 11/03/17 09:00 11/03/17 09:00 11/03/17 09:00 11/03/17 03:17 Laboratory Results - last 24 hr 11/02/17 11/02/17 11/02/17 18:40 18:40 18:40 WBC 22.1 H RBC 3.88 Hgb 10.8 Hct 32.8 MCV 84.5 MCH 27.9 MCHC 33.0 RDW 16.7 H Plt Count 494 H D MPV 7.5 Absolute Neuts (auto) 20.0 Neutrophils % No Result Required. Neutrophils % (Manual) 90.0 H Lymphocytes % No Result Required. Lymphocytes % (Manual) 5.0 L Monocytes % (Manual) 4 Eosinophils % (Manual) 1.0 Nucleated RBC % 0 Hypochromia 1+ Platelet Estimate Increased Platelet Comment No clumping noted Anisocytosis 1+ Macrocytosis 1+ PT with INR 14.00 H INR 1.24 H Sodium 134 L Potassium 3.4 L Chloride 97 L Carbon Dioxide 21 Anion Gap 16 BUN 73 H Creatinine 4.9 H Creat Clearance w eGFR 9.04 Random Glucose 119 H Calcium 8.8 Phosphorus Magnesium 2.5 H Total Bilirubin 0.4 AST 17 ALT 20 Alkaline Phosphatase 191 H Creatine Kinase 32 Troponin I < 0.02 Total Protein 7.2 Albumin 2.7 L 11/03/17 11/03/17 06:15 06:15 WBC 12.1 H RBC 3.38 L Hgb 9.6 L Hct 28.5 L MCV 84.3 MCH 28.4 MCHC 33.7 RDW 16.2 H Plt Count 446 H MPV 7.6 Absolute Neuts (auto) Neutrophils % Neutrophils % (Manual) Lymphocytes % Lymphocytes % (Manual) Monocytes % (Manual) Eosinophils % (Manual) Nucleated RBC % Hypochromia Platelet Estimate Platelet Comment Anisocytosis Macrocytosis PT with INR INR Sodium 135 L Potassium 4.1 Chloride 101 Carbon Dioxide 21 Anion Gap 13 BUN 82 H Creatinine 4.8 H Creat Clearance w eGFR 9.25 Random Glucose 129 H Calcium 9.0 Phosphorus 4.9 Magnesium 2.6 H Total Bilirubin AST ALT Alkaline Phosphatase Creatine Kinase Troponin I Total Protein Albumin Physical Exam: NAD CV: RRR, no mRG Lungs: crackles L lung half way down and R base. minimal wheezing anteriorly Ext : no edema Abd: soft, ND, TTP in RUQ. no rebound tenderness or guarding Assessment/Plan: 62 y/o lady with h/o ASthma , CKD , and other medical problems who presented with cough, and SOBand was found to have sepsis due to PNA 1- Sepsis : 2/2 CAP. possibly bilateral - cont azithro and ceftriaxone - obtain EKG to evaluate QTC - follow sputum cx - legionela Ag neg 2- LUCIEN on CKD : BL 3.5-4.2 . now cr is higher ,. looks volume depleted on exam - start IVF 3- RUQ tenderness on exam. NL LFTS - check US 4- h/o ASthma , doubt it is active . dc steroids and observe . if wheezxing increases or condition worsens , then will resume - cont Nebs 5- mild hyponatremia : due to volume depletion ., IVF 6- DVT PX Visit type - Emergency Visit Emergency Visit: Yes ED Registration Date: 11/02/17 Care time: The patient presented to the Emergency Department on the above date and was hospitalized for further evaluation of their emergent condition. - New Patient This patient is new to me today: Yes Date on this admission: 11/03/17 - Critical Care Critical Care patient: No
--- NOTE | 2017-11-03 14:13 | EKG ---
Test Reason : Blood Pressure : / mmHG Vent. Rate : 080 BPM Atrial Rate : 080 BPM P-R Int : 180 ms QRS Dur : 080 ms QT Int : 362 ms P-R-T Axes : 056 014 -49 degrees QTc Int : 417 ms NORMAL SINUS RHYTHM NONSPECIFIC T WAVE ABNORMALITY ABNORMAL ECG WHEN COMPARED WITH ECG OF 02-NOV-2017 17:57, NO SIGNIFICANT CHANGE WAS FOUND Confirmed by Shane Rios ([id number]) on 11/03/2017 2:13:27 PM Referred By: Kimberly ROSS Confirmed By:Shane Rios
--- NOTE | 2017-11-03 14:16 | EKG ---
Test Reason : Blood Pressure : / mmHG Vent. Rate : 094 BPM Atrial Rate : 094 BPM P-R Int : 168 ms QRS Dur : 082 ms QT Int : 352 ms P-R-T Axes : 050 010 -33 degrees QTc Int : 440 ms NORMAL SINUS RHYTHM NONSPECIFIC ST AND T WAVE ABNORMALITY ABNORMAL ECG WHEN COMPARED WITH ECG OF 05-MAY-2017 12:48, NONSPECIFIC T WAVE ABNORMALITY NOW EVIDENT IN INFERIOR LEADS Confirmed by Shane Rios ([id number]) on 11/03/2017 2:16:41 PM Referred By: Confirmed By:Shane Rios
[2017-11-03] MEDS: METHOCARBAMOL 500 MG TABLET PO PRN ×2 (14:38→21:16)
[2017-11-03] MEDS: MELATONIN 5 MG TABLETS PO SCH (21:16)
[2017-11-04] MEDS: ALBUTEROL SO4 2.5/IPRATROPIUM 0.5 INH SOL 3 ML VIAL.NEB. NEB PRN ×5 (00:33→21:03)
[2017-11-04] MEDS: ACETAMINOPHEN 325 MG TABLET (FP) PO SCH ×4 (02:03→21:25)
[2017-11-04 08:54] LABS: BASO % 0.1 % (0-2.0); HEMOGLOBIN 10.1 GM/dL (10.7-15.3); LYMPH % 5.2 % (8-40); MCH 28.5 pg (25.7-33.7); MCHC 33.6 g/dl (32.0-36.0); MEAN CELL VOLUME 84.9 fl (80-96); MEAN PLT VOLUME 7.4 fl (7.5-11.1); MONO % 3.4 % (3.8-10.2); NEUT % 91.3 % (42.8-82.8); PLATELET COUNT 565 K/MM3 (134-434); RBC 3.53 M/mm3 (3.60-5.2); RDW 16.8 % (11.6-15.6); WHITE BLOOD COUNT 17.2 K/mm3 (4.0-10.0)
[2017-11-04 09:05] LABS: ANION GAP 13 (8-16); BLOOD UREA NITROGEN 101 mg/dL (7-18); CHLORIDE 103 mmol/L (98-107); CO2 21 mmol/L (21-32); CREATININE 5.1 mg/dL (0.55-1.02); GLUCOSE,RANDOM 97 mg/dL (74-106); POTASSIUM 3.7 mmol/L (3.5-5.1); SODIUM 137 mmol/L (136-145)
[2017-11-04] MEDS: CEFTRIAXONE 2 GM in DEXTROSE 5%-WATER - 50 ML IVPB SCH (09:14)
[2017-11-04] MEDS ORDERED: DEXTROSE 5%-WATER - 50 ML IVPB ONE (10:04)
[2017-11-04] MEDS: METHOCARBAMOL 500 MG TABLET PO PRN (10:14)
[2017-11-04] MEDS: AZITHROMYCIN IVPB 500 MG in DEXTROSE 5%-WATER - 250 ML IVPB SCH (10:14)
[2017-11-04] MEDS ORDERED: SODIUM CHLORIDE 1,000 ML IV SCH (10:27)
[2017-11-04 11:12] LABS: ANISOCYTOSIS 1+; MACROCYTOSIS 0; PLATELET ESTIMATE INCREASED
[2017-11-04] MEDS ORDERED: predniSONE 20 MG TABLET (UD) PO ONE (11:30)
[2017-11-04] MEDS: oxyCODONE HCL 5 MG TABLET PO PRN ×2 (11:40→18:54)
[2017-11-04] MEDS: PANTOPRAZOLE 40 MG TABLET (FP) PO SCH (11:40)
--- NOTE | 2017-11-04 13:16 | EKG ---
Test Reason : Blood Pressure : / mmHG Vent. Rate : 086 BPM Atrial Rate : 086 BPM P-R Int : 178 ms QRS Dur : 084 ms QT Int : 330 ms P-R-T Axes : 048 015 -38 degrees QTc Int : 394 ms NORMAL SINUS RHYTHM NONSPECIFIC T WAVE ABNORMALITY ABNORMAL ECG WHEN COMPARED WITH ECG OF 03-NOV-2017 13:51, NO SIGNIFICANT CHANGE WAS FOUND Confirmed by EVARISTO ZULUAGA MD ([id number]) on 11/04/2017 1:15:40 PM Referred By: PUNEET Confirmed By:EVARISTO ZULUAGA MD
--- NOTE | 2017-11-04 13:59 | PN ---
Physical Exam: SUBJECTIVE: 62 year old female with a significant PMH of asthma, anemia, chronic kidney disease,chronic back pain, presents for pneumonia. She complains of chronic back pain and increased coughing. She denies having any trouble urinating. OBJECTIVE: Vital Signs Period Temp Pulse Resp BP Sys/Bills Pulse Ox Last 24 Hr 97.9 F-98.5 F 83-93 18-18 113-124/65-72 95 GENERAL: The patient is awake, alert, and fully oriented, tenderness to palpation diffusely EYES: PERRL, extraocular movements intact ENT: moist mucous membranes. LUNGS: bilateral wheezing HEART: Regular rate and rhythm, S1, S2 ABDOMEN: Soft, nontender, nondistended, normoactive bowel sounds EXTREMITIES: 2+ pulses, warm, well-perfused, no edema. SKIN: Warm, dry, normal turgor, no rashes or lesions noted Laboratory Results - last 24 hr 11/04/17 11/04/17 11/04/17 08:15 08:15 10:45 WBC 17.2 H RBC 3.53 L Hgb 10.1 L Hct 30.0 L MCV 84.9 MCH 28.5 MCHC 33.6 RDW 16.8 H Plt Count 565 H D MPV 7.4 L Absolute Neuts (auto) 15.7 Neutrophils % 91.3 H D Neutrophils % (Manual) 93.0 H Band Neutrophils % 0.0 Lymphocytes % 5.2 L D Lymphocytes % (Manual) 4.0 L Monocytes % 3.4 L Monocytes % (Manual) 0 L D Eosinophils % 0.0 D Eosinophils % (Manual) 0.0 D Basophils % 0.1 Basophils % (Manual) 0.0 Myelocytes % (Man) 3 H Promyelocytes % (Man) 0 Blast Cells % (Manual) 0 Nucleated RBC % 0 Metamyelocytes 0 Hypochromia 0 Platelet Estimate Increased Polychromasia 1+ Poikilocytosis 1+ Anisocytosis 1+ Microcytosis 1+ Macrocytosis 0 Sodium 137 Potassium 3.7 Chloride 103 Carbon Dioxide 21 Anion Gap 13 BUN 101 H Creatinine 5.1 H Creat Clearance w eGFR 8.63 Random Glucose 97 Calcium 9.0 Creatine Kinase 27 Cancelled Troponin I < 0.02 Cancelled Active Medications Generic Name Dose Route Start Last Admin Trade Name Freq PRN Reason Stop Dose Admin Acetaminophen 650 mg 11/02/17 21:00 11/04/17 09:13 Tylenol - PO 650 mg Q6H JACKY Administration Acetaminophen 325 mg 11/04/17 11:22 Tylenol - PO Q6H PRN PAIN LEVEL 6-10 Albuterol/Ipratropium 1 amp 11/03/17 05:39 11/04/17 09:43 Duoneb - NEB 1 amp Q6H PRN Administration WHEEZING Azithromycin 500 mg/ Dextrose 250 mls @ 250 mls/hr 11/03/17 10:00 11/04/17 10 :14 IVPB 250 mls/hr DAILY JACKY Administration Ceftriaxone Sodium 2 gm/ 50 mls @ 100 mls/hr 11/03/17 10:00 11/04/17 09:14 Dextrose IVPB 100 mls/hr DAILY JACKY Administration Protocol Sodium Chloride 1,000 mls @ 100 mls/hr 11/04/17 10:27 Normal Saline - IV ASDIR JACKY Melatonin 10 mg 11/02/17 22:00 11/03/17 21:16 Melatonin PO 10 mg HS JACKY Administration Methocarbamol 500 mg 11/03/17 05:22 11/04/17 10:14 Robaxin - PO 500 mg TID PRN Administration PAIN Oxycodone HCl 5 mg 11/04/17 11:22 11/04/17 11:40 Roxicodone - PO 5 mg Q6H PRN Administration PAIN LEVEL 6-10 Pantoprazole Sodium 40 mg 11/04/17 11:30 11/04/17 11:40 Protonix - PO 40 mg DAILY JACKY Administration Prednisone 30 mg 11/05/17 10:51 Deltasone - PO 11/05/17 10:52 ONCE ONE ASSESSMENT/PLAN: 62 year old female with a significant PMH of asthma, anemia, chronic kidney disease,chronic back pain, presents for sepsis 2/2 to pneumonia. #sepsis 2/2 to pneumonia - ceftriaxone/rocephin (day 2) - CXR showed RLL infiltrates, f/u new CXR - WBC: 17.2 - abd US: gallbladder not identified, liver no masses, pancreas normal in size - nares + MRSA, BC no growth - f/u U/S kidney, f/u UA - f/u ekg - short course steroids, prednisone 40 mg (day 1), protonix 40 mg po #chronic back pain - acetaminophen as needed - Oxycodone 5 mg PO Q6H prn #LUCIEN on CKD - BUN: 101, Cr; 5.1 - continue fluids NS @ 100 #HTN - monitor BP Dispo: Visit type - Emergency Visit Emergency Visit: No - New Patient This patient is new to me today: Yes Date on this admission: 11/04/17 - Critical Care Critical Care patient: No
--- NOTE | 2017-11-04 15:27 | PN ---
Teaching Attending Note Name of Resident: Jo Ramos ATTENDING PHYSICIAN STATEMENT I saw and evaluated the patient. I reviewed the resident's note and discussed the case with the resident. I agree with the resident's findings and plan as documented. SUBJECTIVE: seen around 11 am More SOB today. has cough . has pain in all her body. including her back , abd , extremities, and epigastric area , and below her breasts. very anxious reports chest pain and points to her epigastric area which started 2 hours prior to her eval. OBJECTIVE: anxious. tearful CV: RRR, no MRG. NO JVD Lungs: bibasilar crackles , some wheezing Ext : no edema Abd: soft, ND, TTP in all quadrants . no rebound tenderness or guarding. MS: TTP over arms , legs, head, feet ,chest wall, hands and all the body Assessment/Plan: 62 y/o lady with h/o HTN, hyperlipidemia, hypothyroidism, stage 4 CKD, iron- deficiency anemia, depression, anxiety, chronic back pain and peripheral neuropathy, and other medical problems who presented with cough, and SOB and was found to have sepsis due to PNA 1- Sepsis : 2/2 CAP. leukocytosis is worse today likely due to the steroids she received on admission More SOB today - cont Abx day 2 - repeat cxray . ? congestion with linear atelectasis - BNP > 3000. last echo in 2015 shows Diastolic dysfunction. will dC IVF and give a dose of lasix - check Echo - follow sputum cx and blood cx. - due to wheezing , short course of prednisone started. 2- CP: likely MS in etiology, TTP over chest wall. - EKG with no acute ischemic changes - trop NL . - monitor 3- LUCIEN on CKD : BL 3.5-4.2 . Cr worse today - check renal US . - Urine electrolytes - will contto assess volume status. trial of lasix as above. if cont to worsens will consult renal 4- RUQ tenderness . generalized abd tenderness and all body tenderness . nl LFTs . no suspicion for cholecystitis 5- h/o Asthma - trial of sterois as above - Nebs DVT PX
[2017-11-04 16:34] LABS: URINE APPEARANCE CLEAR; URINE BILIRUBIN NEGATIVE (<2.0 mg/dL); URINE COLOR STRAW; URINE GLUCOSE (UA) 1+ (NEGATIVE); URINE KETONE NEGATIVE (NEGATIVE); URINE LEUK ESTERASE NEGATIVE (NEGATIVE); URINE NITRITE NEGATIVE (NEGATIVE); URINE UROBILINOGEN NEGATIVE mg/dL (0.2-1.0)
[2017-11-04 16:37] LABS: URINE PROTEIN 2+ (NEGATIVE)
[2017-11-04 16:45] LABS: URINE BACTERIA RARE /hpf (NONE SEEN)
[2017-11-04] MEDS ORDERED: FUROSEMIDE 40 MG/4 ML INJECTABLE VIAL IVPUSH ONE (18:28)
[2017-11-04] MEDS: ACETAMINOPHEN 325 MG TABLET (FP) PO PRN (18:54)
[2017-11-04] MEDS: ALPRAZolam 0.25 MG TABLET PO PRN (18:54)
[2017-11-04] MEDS: MELATONIN 5 MG TABLETS PO SCH (21:04)
[2017-11-04] MEDS ORDERED: MAG HYDROX/AL HYDROX/SIMETH 30 ML UNIT-DOSE CUP PO ONE (23:14)
[2017-11-05] MEDS: ACETAMINOPHEN 325 MG TABLET (FP) PO SCH ×4 (02:51→20:54)
[2017-11-05] MEDS ORDERED: guaiFENesin 200 MG/10 ML 10 ML UNIT-DOSE CUPS PO ONE (03:47)
[2017-11-05] MEDS: ALPRAZolam 0.25 MG TABLET PO PRN ×2 (05:26→14:46)
[2017-11-05] MEDS: ALBUTEROL SO4 2.5/IPRATROPIUM 0.5 INH SOL 3 ML VIAL.NEB. NEB SCH ×4 (07:35→20:00)
[2017-11-05 07:52] LABS: BASO % 0.2 % (0-2.0); HEMATOCRIT 25.8 % (32.4-45.2); HEMOGLOBIN 8.6 GM/dL (10.7-15.3); LYMPH % 6.4 % (8-40); MCH 28.2 pg (25.7-33.7); MCHC 33.3 g/dl (32.0-36.0); MEAN CELL VOLUME 84.9 fl (80-96); MEAN PLT VOLUME 6.9 fl (7.5-11.1); NEUT % 88.4 % (42.8-82.8); PLATELET COUNT 467 K/MM3 (134-434); RBC 3.04 M/mm3 (3.60-5.2); RDW 16.8 % (11.6-15.6)
[2017-11-05 08:31] LABS: ALBUMIN 2.4 g/dl (3.4-5.0); ANION GAP 12 (8-16); CALCIUM 8.7 mg/dL (8.5-10.1); CHLORIDE 103 mmol/L (98-107); CO2 22 mmol/L (21-32); CREATININE 4.8 mg/dL (0.55-1.02); GLUCOSE,RANDOM 106 mg/dL (74-106); POTASSIUM 3.6 mmol/L (3.5-5.1); SGOT/AST 12 U/L (15-37); SGPT/ALT 20 U/L (12-78); SODIUM 137 mmol/L (136-145)
[2017-11-05 08:34] LABS: ALK PHOS 130 U/L (45-117); BILIRUBIN,TOTAL 0.3 mg/dL (0.2-1.0); TOT PROT 6.1 g/dl (6.4-8.2)
[2017-11-05 08:44] LABS: BLOOD UREA NITROGEN 116 mg/dL (7-18)
[2017-11-05] MEDS ORDERED: DEXTROSE 5%-WATER - 50 ML IVPB ONE (08:53)
[2017-11-05] MEDS: CEFTRIAXONE 2 GM in DEXTROSE 5%-WATER - 50 ML IVPB SCH (09:06)
[2017-11-05] MEDS: oxyCODONE HCL 5 MG TABLET PO PRN ×2 (09:10→18:44)
[2017-11-05] MEDS: predniSONE 10 MG TABLET (UD) PO ONE ×2 (09:10→10:51)
[2017-11-05] MEDS: PANTOPRAZOLE 40 MG TABLET (FP) PO SCH (09:10)
[2017-11-05 09:32] LABS: PLATELET ESTIMATE INCREASED
[2017-11-05] MEDS: AZITHROMYCIN IVPB 500 MG in DEXTROSE 5%-WATER - 250 ML IVPB SCH (10:49)
--- NOTE | 2017-11-05 14:19 | PN ---
Physical Exam: SUBJECTIVE: 62 year old female with a significant PMH of asthma, anemia, chronic kidney disease,chronic back pain, presents for pneumonia. She complains of chronic back pain and increased coughing. She denies having any trouble urinating. OBJECTIVE: Vital Signs Period Temp Pulse Resp BP Sys/Bills Pulse Ox Last 24 Hr 97.5 F-98.2 F 80-94 18-20 112-135/70-78 96 GENERAL: The patient is awake, alert, and fully oriented, tenderness to palpation diffusely EYES: PERRL, extraocular movements intact ENT: moist mucous membranes. LUNGS: bilateral wheezing HEART: Regular rate and rhythm, S1, S2 ABDOMEN: Soft, nontender, nondistended, normoactive bowel sounds EXTREMITIES: 2+ pulses, warm, well-perfused, no edema. SKIN: Warm, dry, normal turgor, no rashes or lesions noted Laboratory Results - last 24 hr 11/04/17 11/04/17 11/04/17 15:15 16:00 16:00 WBC RBC Hgb Hct MCV MCH MCHC RDW Plt Count MPV Absolute Neuts (auto) Neutrophils % Neutrophils % (Manual) Band Neutrophils % Lymphocytes % Lymphocytes % (Manual) Monocytes % Monocytes % (Manual) Eosinophils % Eosinophils % (Manual) Basophils % Basophils % (Manual) Myelocytes % (Man) Promyelocytes % (Man) Blast Cells % (Manual) Nucleated RBC % Metamyelocytes Platelet Estimate Polychromasia Schistocytes Sodium Potassium Chloride Carbon Dioxide Anion Gap BUN Creatinine Creat Clearance w eGFR Random Glucose Calcium Total Bilirubin AST ALT Alkaline Phosphatase B-Natriuretic Peptide 3271.32 H Total Protein Albumin Urine Color Straw Urine Appearance Clear Urine pH 6.0 Ur Specific [place] 1.012 Urine Protein 2+ H Urine Glucose (UA) 1+ H Urine Ketones Negative Urine Blood Negative Urine Nitrite Negative Urine Bilirubin Negative Urine Urobilinogen Negative Ur Leukocyte Esterase Negative Urine WBC (Auto) 4 Urine RBC (Auto) None Urine Bacteria Rare Ur Random Sodium 39 Ur Random Potassium 23.7 Ur Random Chloride 38 Urine Creatinine 11/05/17 11/05/17 11/05/17 07:30 07:30 11:52 WBC 13.0 H RBC 3.04 L Hgb 8.6 L Hct 25.8 L MCV 84.9 MCH 28.2 MCHC 33.3 RDW 16.8 H Plt Count 467 H MPV 6.9 L Absolute Neuts (auto) 11.5 Neutrophils % 88.4 H Neutrophils % (Manual) 84.0 H Band Neutrophils % 0.0 Lymphocytes % 6.4 L D Lymphocytes % (Manual) 8.0 D Monocytes % 5.0 Monocytes % (Manual) 3 L D Eosinophils % 0.0 Eosinophils % (Manual) 0.0 Basophils % 0.2 Basophils % (Manual) 1.0 D Myelocytes % (Man) 1 D Promyelocytes % (Man) 1 D Blast Cells % (Manual) 0 Nucleated RBC % 0 Metamyelocytes 2 D Platelet Estimate Increased Polychromasia 0 Schistocytes 1+ Sodium 137 Potassium 3.6 Chloride 103 Carbon Dioxide 22 Anion Gap 12 BUN 116 H* Creatinine 4.8 H Creat Clearance w eGFR 9.25 Random Glucose 106 Calcium 8.7 Total Bilirubin 0.3 AST 12 L ALT 20 Alkaline Phosphatase 130 H D B-Natriuretic Peptide Total Protein 6.1 L Albumin 2.4 L Urine Color Urine Appearance Urine pH Ur Specific [place] Urine Protein Urine Glucose (UA) Urine Ketones Urine Blood Urine Nitrite Urine Bilirubin Urine Urobilinogen Ur Leukocyte Esterase Urine WBC (Auto) Urine RBC (Auto) Urine Bacteria Ur Random Sodium Ur Random Potassium Ur Random Chloride Urine Creatinine 18.8 L 11/05/17 11:52 WBC RBC Hgb Hct MCV MCH MCHC RDW Plt Count MPV Absolute Neuts (auto) Neutrophils % Neutrophils % (Manual) Band Neutrophils % Lymphocytes % Lymphocytes % (Manual) Monocytes % Monocytes % (Manual) Eosinophils % Eosinophils % (Manual) Basophils % Basophils % (Manual) Myelocytes % (Man) Promyelocytes % (Man) Blast Cells % (Manual) Nucleated RBC % Metamyelocytes Platelet Estimate Polychromasia Schistocytes Sodium Potassium Chloride Carbon Dioxide Anion Gap BUN Creatinine Creat Clearance w eGFR Random Glucose Calcium Total Bilirubin AST ALT Alkaline Phosphatase B-Natriuretic Peptide Total Protein Albumin Urine Color Urine Appearance Urine pH Ur Specific [place] Urine Protein 127 Urine Glucose (UA) Urine Ketones Urine Blood Urine Nitrite Urine Bilirubin Urine Urobilinogen Ur Leukocyte Esterase Urine WBC (Auto) Urine RBC (Auto) Urine Bacteria Ur Random Sodium Ur Random Potassium Ur Random Chloride Urine Creatinine Active Medications Generic Name Dose Route Start Last Admin Trade Name Freq PRN Reason Stop Dose Admin Acetaminophen 650 mg 11/02/17 21:00 11/05/17 09:08 Tylenol - PO 650 mg Q6H JACKY Administration Acetaminophen 325 mg 11/04/17 11:22 11/04/17 18:54 Tylenol - PO 325 mg Q6H PRN Administration PAIN LEVEL 6-10 Albuterol/Ipratropium 1 amp 11/03/17 05:39 11/04/17 21:03 Duoneb - NEB 1 amp Q6H PRN Administration WHEEZING Albuterol/Ipratropium 1 amp 11/05/17 08:00 11/05/17 11:29 Duoneb - NEB 1 amp RQID JACKY Administration Alprazolam 0.5 mg 11/04/17 17:22 11/05/17 05:26 Xanax - PO 0.5 mg Q8H PRN Administration ANXIETY Azithromycin 500 mg/ Dextrose 250 mls @ 250 mls/hr 11/03/17 10:00 11/05/17 10 :49 IVPB 250 mls/hr DAILY JACKY Administration Ceftriaxone Sodium 2 gm/ 50 mls @ 100 mls/hr 11/03/17 10:00 11/05/17 09:06 Dextrose IVPB 100 mls/hr DAILY JACKY Administration Protocol Melatonin 10 mg 11/02/17 22:00 11/04/17 21:04 Melatonin PO 10 mg HS JACKY Administration Methocarbamol 500 mg 11/03/17 05:22 11/04/17 10:14 Robaxin - PO 500 mg TID PRN Administration PAIN Oxycodone HCl 5 mg 11/04/17 11:22 11/05/17 09:10 Roxicodone - PO 5 mg Q6H PRN Administration PAIN LEVEL 6-10 Pantoprazole Sodium 40 mg 11/04/17 11:30 11/05/17 09:10 Protonix - PO 40 mg DAILY JACKY Administration ASSESSMENT/PLAN: 62 year old female with a significant PMH of asthma, anemia, chronic kidney disease,chronic back pain, presents for sepsis 2/2 to pneumonia. #sepsis 2/2 to pneumonia - ceftriaxone/azithromycin (day 3) - CXR showed RLL infiltrates, - CXR 11/05- ateletasis R base, congestion improved - WBC: 13 - abd US: gallbladder not identified, liver no masses, pancreas normal in size - nares + MRSA, BC no growth - f/u U/S kidney, f/u UA - f/u ekg - short course steroids, prednisone 30 mg (day 2), protonix 40 mg po #acute CHF exacerbation -BNP: 3271 - 40 mg IV push lasix one time dose - f/u echo #LUCIEN on CKD - BUN: 116, Cr; 1.3 - continue fluids NS @ 100 - consulted Dr. Coe #chronic back pain - acetaminophen as needed - Oxycodone 5 mg PO Q6H prn #Anxiety -Xanax .5 mg Q8H prn #HTN - monitor BP Dispo: f/u PT, monitor LUCIEN on CKD, possibly tomorrow Visit type - Emergency Visit Emergency Visit: No - New Patient This patient is new to me today: No - Critical Care Critical Care patient: No
--- NOTE | 2017-11-05 16:22 | CON.NEP ---
Consult Consult Specialty:: Nephrology Reason for Consultation:: rising BUN/Cr - History of Present Illness Chief Complaint: back pain History of Present Illness: patient is a 62 y/o female who presented to [facility] with complaints of productive cough,weakness and back pain for about one week. On chest xray, patient was noted to have a RLL infiltrate and atelectasis at the right lung base. She is currently complaining of cough, slight dyspnea, and back pain, but denies any chest pain, nausea or vomiting and is not having any trouble or pain on urination. Patient has a history of anemia, chronic back pain, and CKD. Her most recent BUN/Cr ratio from this am was 116/4.8 whereas back in 2016 her Cr was 3.3 in review of [facility], however, she has not seen a director content marketing in quite some time. 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 Cardio/Vascular: Yes: HTN, Hyperlipdemia Pulmonary: Yes: COPD Renal/: Yes: Renal Inusuff Psych: Yes: Anxiety, Depression Musculoskeletal: Yes: Chronic low back pain - Past Surgical History Past Surgical History: Yes: Joint Replacement (hip replacement) - Alcohol/Substance Use Hx Alcohol Use: No History of Substance Use: reports: Marijuana - Smoking History Smoking history: Current every day smoker Have you smoked in the past 12 months: No Aproximately how many cigarettes per day: 8 If you are a former smoker, when did you quit?: refused booklet 07/21/14 - Social History Usual Living Arrangement: With Child ADL: Independent Occupation: not working, SSI History of Recent Travel: No Home Medications - Allergies Allergies/Adverse Reactions: Allergies Allergy/AdvReac Type Severity Reaction Status Date / Time levofloxacin [From Levaquin] Allergy Mild Itching Verified 11/02/17 16:54 - Home Medications Home Medications: Ambulatory Orders Acetaminophen 500 mg PO Q4H PRN 11/02/17 Albuterol Sulfate Inhaler - [Ventolin Hfa Inhaler -] 1 - 2 inh PO Q4H PRN Albuterol Sulfate Inhaler - [Ventolin Hfa Inhaler -] 2 inh PO Q4H 11/02/17 Lidocaine 5% Patch [Lidoderm Patch -] 1 patch TP DAILY PRN 11/02/17 Methocarbamol [Robaxin -] 500 mg PO TID PRN 11/02/17 Silver Sulfadiazine 1% Top Cr [Silvadene -] 1 applic TP DAILY 11/02/17 Amlodipine Besylate 10 mg PO DAILY 11/04/17 Atorvastatin Ca [Lipitor] 10 mg PO DAILY 11/04/17 Cyproheptadine [Periactin -] 8 mg PO DAILY 11/04/17 Donepezil HCl 5 mg PO DAILY 11/04/17 Gabapentin 600 mg PO Q8H 11/04/17 Hydrochlorothiazide 12.5 mg PO DAILY 11/04/17 Omeprazole 40 mg PO DAILY 11/04/17 Paroxetine HCl 20 mg PO DAILY 11/04/17 Quetiapine Fumarate [Seroquel -] 25 mg PO DAILY 11/04/17 Tizanidine HCl 4 mg PO DAILY 11/04/17 Family Disease History - Family Disease History Family Disease History: CA: Father (Cancer, alive ), Mother (cervix. HTN, alive) , Other: Mother, Sister (alive), Son (23 yo old - alive - healthy) Review of Systems - Review of Systems Cardiovascular: denies: Chest Pain, Palpitations Respiratory: reports: Cough (productive) Gastrointestinal: reports: Nausea. denies: Abdominal Pain, Diarrhea, Vomiting Genitourinary: denies: Burning, Hematuria Musculoskeletal: reports: Back Pain (chronic) Neurological: denies: Headache Nephrology Consult - Height Height: 1.57 m - Weight Weight: 59.888 kg - BMI Body Mass Index (BMI): 24.1 - Lab Results CBC,BMP: CBC, BMP 11/05/17 07:30 11/05/17 07:30 Anion Gap: Anion Gap Anion Gap 12 (8-16) 11/05/17 07:30 - Physical Examination Vital Signs: Vital Signs Temperature 98.8 F 11/05/17 15:53 Pulse Rate 88 11/05/17 15:53 Respiratory Rate 20 11/05/17 15:53 Blood Pressure 132/88 11/05/17 15:53 O2 Sat by Pulse Oximetry (%) 96 11/05/17 09:00 Constitutional: Yes: Calm Cardiovascular: Yes: Regular Rate and Rhythm, S1, S2. No: Murmur Respiratory: Yes: CTA Bilaterally Gastrointestinal: Yes: Soft. No: Tenderness Musculoskeletal: Yes: Back Pain Edema: No (no LE edema ) Neurological: Yes: Alert Problem List - Problems (1) Acute on chronic renal failure Code(s): N17.9 - ACUTE KIDNEY FAILURE, UNSPECIFIED; N18.9 - CHRONIC KIDNEY DISEASE, UNSPECIFIED (2) Pneumonia Code(s): J18.9 - PNEUMONIA, UNSPECIFIED ORGANISM Qualifiers: Pneumonia type: due to unspecified organism Laterality: right Lung location: unspecified part of lung Qualified Code(s): J18.9 - Pneumonia, unspecified organism (3) Back pain Code(s): M54.9 - DORSALGIA, UNSPECIFIED Qualifiers: Back pain location: low back pain Chronicity: chronic Back pain laterality: bilateral Sciatica presence: without sciatica Qualified Code(s) : M54.5 - Low back pain; G89.29 - Other chronic pain (4) Anemia Code(s): D64.9 - ANEMIA, UNSPECIFIED Qualifiers: Anemia type: unspecified cause Assessment/Plan CKD:likely worsening of CKD or possibly LUCIEN on CKD -continue to monitor patients Cr and CMP - since urine had protein present; will check protein/Cr ratio -repeat U/A Anemia: -patients most recent Hgb was 8.6; continue to trend Hgb
--- NOTE | 2017-11-05 16:28 | PN ---
Teaching Attending Note Name of Resident: Jo Ramos ATTENDING PHYSICIAN STATEMENT I saw and evaluated the patient. I reviewed the resident's note and discussed the case with the resident. I agree with the resident's findings and plan as documented. SUBJECTIVE: feels much better . No fever or chills . breathing has improved after lasix yesterday OBJECTIVE: calm , NAD CV: RRR, no MRG. NO JVD Lungs:clear lungs today Ext: no edema Assessment/Plan: 62 y/o lady with h/o HTN, hyperlipidemia, hypothyroidism, stage 4 CKD, iron- deficiency anemia, depression, anxiety, chronic back pain and peripheral neuropathy, and other medical problems who presented with cough, and SOB and was found to have sepsis due to PNA 1- Sepsis : 2/2 CAP. improved . - cont Abx day 3/5 - repeat cxray today with improved congestion. -follow cultures 2-SOB : was given IVF, her resp status worsened, then improved with lasix. - also improved wheezing with steroids - cont steroids for Copd exacerbation - Nebs - echo 3- LUCIEN on CKD: given IVF which made renal function worse ( 4.9--> 5.1 ) . renal function improved with diuresis . ? prerenal from decreased cardiac out put - hold off any further IVF and diuretics . - see cr trend. - renal US pending - Urine has protein urea, will check Protein /cr ratio - renal cnsult HLOC
--- NOTE | 2017-11-05 16:45 | ECHO ---
Name: ROJAS, AWAIS Exam:Adult Echocardiogram Study Date: 11/05/2017 10:58 AM Reason For Study: CHF Height: 62 in Weight: 132 lb BSA: 1.6 m2 MMode/2D Measurements & Calculations IVSd: 1.2 cm Ao root diam: 2.9 cm LVIDd: 4.0 cm LA dimension: 3.6 cm LVIDs: 2.9 cm LVPWd: 1.3 cm EDV(Teich): 70.7 ml ESV(Teich): 32.3 ml Doppler Measurements & Calculations MV E max indio: 64.5 cm/sec AI P1/2t: 483.4 msec MV A max indio: 114.5 cm/sec MV E/A: 0.56 MV dec time: 0.24 sec AI max indio: 433.0 cm/sec TR max indio: 254.3 cm/sec AI max P.1 mmHg TR max P.9 mmHg AI dec slope: 262.4 cm/sec2 Med Peak E' [place]: 7.6 cm/sec Med E/e': 8.5 Lat Peak E' [place]: 9.0 cm/sec Lat E/e': 7.1 Left Ventricle The left ventricular size, thickness and function are normal. LVEF = 65%. The transmitral spectral Do ppler flow pattern is suggestive of impaired LV relaxation. Right Ventricle The right ventricle is normal in size and function. Atria Normal left and right atrial size and function. Mitral Valve The mitral valve is normal in structure and function. Tricuspid Valve The tricuspid valve is normal in structure and function. No tricuspid regurgitation. There was insuff icient TR detected to calculate RV systolic pressure. Aortic Valve There is mild aortic sclerosis.;. Mild aortic regurgitation. Pulmonic Valve The pulmonic valve is not well seen, but is grossly normal. Great Vessels The aortic root is not well visualized. Pericardium/Pleura There is no pericardial effusion. Interpretation Summary The left ventricular size, thickness and function are normal. LVEF = 65%. The right ventricle is normal in size and function. Normal left and right atrial size and function. The mitral valve is normal in structure and function. There is mild aortic sclerosis.; Mild aortic regurgitation. MD Brittny Stewart 11/05/2017 04:45 PM
--- NOTE | 2017-11-05 18:01 | PN ---
Teaching Attending Note Name of Resident: Sangita Rae (Nephrology) ATTENDING PHYSICIAN STATEMENT I saw and evaluated the patient. I reviewed the resident's note and discussed the case with the resident. I agree with the resident's findings and plan as documented. Nephrology Pt is a 62 year old female with pmhx of CKD, asthma, anemia, chronic back pain and herniated disks who presents to the ER with a productive cough. She was found to be in worsening renal failure. She has history of CKD and is known to me. She has poor outpt follow up and is not compliance. Her renal function has been progressively getting worse. She was given fluids then developed shortness of breath. She was later given lasix. She currently denies shortness of breath. She denies fevers or chills. pmhx ckd back pain anemia asthma ros back pain allergies levofloxacin family hx denies Current Medications Generic Name Dose Route Start Last Admin Trade Name Freq PRN Reason Stop Dose Admin Acetaminophen 650 mg 11/02/17 21:00 11/05/17 14:45 Tylenol - PO 650 mg Q6H JACKY Administration Acetaminophen 325 mg 11/04/17 11:22 11/04/17 18:54 Tylenol - PO 325 mg Q6H PRN Administration PAIN LEVEL 6-10 Albuterol/Ipratropium 1 amp 11/03/17 05:39 11/04/17 21:03 Duoneb - NEB 1 amp Q6H PRN Administration WHEEZING Albuterol/Ipratropium 1 amp 11/05/17 08:00 11/05/17 16:20 Duoneb - NEB 1 amp RQID JACKY Administration Alprazolam 0.5 mg 11/04/17 17:22 11/05/17 14:46 Xanax - PO 0.5 mg Q8H PRN Administration ANXIETY Azithromycin 500 mg/ Dextrose 250 mls @ 250 mls/hr 11/03/17 10:00 11/05/17 10 :49 IVPB 250 mls/hr DAILY JACKY Administration Ceftriaxone Sodium 2 gm/ 50 mls @ 100 mls/hr 11/03/17 10:00 11/05/17 09:06 Dextrose IVPB 100 mls/hr DAILY JACKY Administration Protocol Melatonin 10 mg 11/02/17 22:00 11/04/17 21:04 Melatonin PO 10 mg HS JACKY Administration Methocarbamol 500 mg 11/03/17 05:22 11/04/17 10:14 Robaxin - PO 500 mg TID PRN Administration PAIN Oxycodone HCl 5 mg 11/04/17 11:22 11/05/17 09:10 Roxicodone - PO 5 mg Q6H PRN Administration PAIN LEVEL 6-10 Pantoprazole Sodium 40 mg 11/04/17 11:30 11/05/17 09:10 Protonix - PO 40 mg DAILY JACKY Administration Prednisone 30 mg 11/06/17 08:00 Deltasone - PO 11/06/17 08:01 ONCE ONE Last Vital Signs Temp Pulse Resp BP Pulse Ox 98.7 F 94 H 20 126/59 96 11/05/17 17:06 11/05/17 17:06 11/05/17 17:06 11/05/17 17:06 11/05/17 09:00 Laboratory Tests 05/05/17 06/08/17 11/02/17 12:50 17:00 18:40 WBC BUN Creatinine 3.2 H 4.2 H 4.9 H Urine Protein Urine Glucose (UA) Urine Blood 11/04/17 11/04/17 11/05/17 08:15 16:00 07:30 WBC 17.2 H 13.0 H BUN Creatinine Urine Protein 2+ H Urine Glucose (UA) 1+ H Urine Blood Negative 11/05/17 07:30 WBC BUN 116 H* Creatinine 4.8 H Urine Protein Urine Glucose (UA) Urine Blood Laboratory Tests 01/13/16 01/13/16 06/28/16 07:44 09:00 21:43 Creat Clearance w eGFR 13.42 13.87 14.31 cxr reviewed cardio s1s2 pulm wheeze GI soft ext neg edema neuro awake and alert skin neg rash circ pos pulses back pain Impression 1. CKD with acute component 2. COPD 3. chronic back pain on opioids 4. anemia 5. anxiety 6. 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
[2017-11-05] MEDS: ACETAMINOPHEN 325 MG TABLET (FP) PO PRN (18:43)
[2017-11-05] MEDS: MELATONIN 5 MG TABLETS PO SCH (21:07)
[2017-11-05] MEDS: ALBUTEROL SO4 2.5/IPRATROPIUM 0.5 INH SOL 3 ML VIAL.NEB. NEB PRN (22:45)
[2017-11-06] MEDS: ALPRAZolam 0.25 MG TABLET PO PRN (02:55)
[2017-11-06] MEDS: ACETAMINOPHEN 325 MG TABLET (FP) PO SCH ×4 (02:55→22:01)
[2017-11-06] MEDS: oxyCODONE HCL 5 MG TABLET PO PRN ×3 (02:56→20:30)
[2017-11-06] MEDS: ALBUTEROL SO4 2.5/IPRATROPIUM 0.5 INH SOL 3 ML VIAL.NEB. NEB SCH ×4 (07:59→21:07)
[2017-11-06] MEDS ORDERED: predniSONE 10 MG TABLET (UD) PO ONE (08:00)
[2017-11-06 08:28] LABS: HEMATOCRIT 25.3 % (32.4-45.2); HEMOGLOBIN 8.8 GM/dL (10.7-15.3); MCH 29.5 pg (25.7-33.7); MCHC 34.8 g/dl (32.0-36.0); MEAN CELL VOLUME 84.6 fl (80-96); PLATELET COUNT 459 K/MM3 (134-434); RBC 2.98 M/mm3 (3.60-5.2)
[2017-11-06 08:52] LABS: CALCIUM 8.8 mg/dL (8.5-10.1); CHLORIDE 102 mmol/L (98-107); POTASSIUM 3.8 mmol/L (3.5-5.1); SODIUM 138 mmol/L (136-145)
[2017-11-06 08:56] LABS: ANION GAP 12 (8-16); CO2 24 mmol/L (21-32); CREATININE 4.2 mg/dL (0.55-1.02); GLUCOSE,RANDOM 118 mg/dL (74-106)
[2017-11-06 09:06] LABS: BLOOD UREA NITROGEN 124 mg/dL (7-18)
[2017-11-06] MEDS ORDERED: PT OWN MED DRAWER 7, Y5N ONE (09:45)
[2017-11-06] MEDS ORDERED: DEXTROSE 5%-WATER - 50 ML IVPB ONE (09:46)
[2017-11-06] MEDS: PANTOPRAZOLE 40 MG TABLET (FP) PO SCH (09:49)
[2017-11-06] MEDS: AZITHROMYCIN IVPB 500 MG in DEXTROSE 5%-WATER - 250 ML IVPB SCH (09:50)
[2017-11-06] MEDS: CEFTRIAXONE 2 GM in DEXTROSE 5%-WATER - 50 ML IVPB SCH (09:50)
--- NOTE | 2017-11-06 10:13 | PN ---
Progress Note, Physician Chief Complaint: i feel ok History of Present Illness: no acute events overnight. patient states her breathing is a little bit improved and her back pain feels a little better. she is feeling slightly nauseous, however, denies any vomiting or diarrhea. She had an echo performed yesterday which showed an EF of 65%, mild aortic regurgitation, but normal right ventricular and left ventricular function. Her renal ultrasound showed no evidence of any hydronephrosis or obstruction. - Current Medication List Current Medications: Active Medications Acetaminophen (Tylenol -) 650 mg PO Q6H JACKY Last Admin: 11/06/17 09:49 Dose: 650 mg Acetaminophen (Tylenol -) 325 mg PO Q6H PRN PRN Reason: PAIN LEVEL 6-10 Last Admin: 11/05/17 18:43 Dose: 325 mg Albuterol/Ipratropium (Duoneb -) 1 amp NEB Q6H PRN PRN Reason: WHEEZING Last Admin: 11/05/17 22:45 Dose: 1 amp Albuterol/Ipratropium (Duoneb -) 1 amp NEB RQID [facility] Last Admin: 11/06/17 07:59 Dose: 1 amp Alprazolam (Xanax -) 0.5 mg PO Q8H PRN PRN Reason: ANXIETY Last Admin: 11/06/17 02:55 Dose: 0.5 mg Azithromycin 500 mg/ Dextrose 250 mls @ 250 mls/hr IVPB DAILY [facility] Last Admin: 11/06/17 09:50 Dose: 250 mls/hr Ceftriaxone Sodium 2 gm/ (Dextrose) 50 mls @ 100 mls/hr IVPB DAILY [facility]; Protocol Last Admin: 11/06/17 09:50 Dose: 100 mls/hr Melatonin (Melatonin) 10 mg PO HS [facility] Last Admin: 11/05/17 21:07 Dose: 10 mg Methocarbamol (Robaxin -) 500 mg PO TID PRN PRN Reason: PAIN Last Admin: 11/04/17 10:14 Dose: 500 mg Oxycodone HCl (Roxicodone -) 5 mg PO Q6H PRN PRN Reason: PAIN LEVEL 6-10 Last Admin: 11/06/17 09:52 Dose: 5 mg Pantoprazole Sodium (Protonix -) 40 mg PO DAILY [facility] Last Admin: 11/06/17 09:49 Dose: 40 mg - Objective Vital Signs: Vital Signs Temperature 97.7 F 11/06/17 06:44 Pulse Rate 99 H 11/06/17 06:44 Respiratory Rate 20 11/06/17 06:44 Blood Pressure 125/79 11/06/17 06:44 O2 Sat by Pulse Oximetry (%) 96 11/05/17 21:00 Constitutional: Yes: No Distress Cardiovascular: Yes: Regular Rate and Rhythm, S1, S2 Respiratory: Yes: CTA Bilaterally Gastrointestinal: Yes: Normal Bowel Sounds, Soft. No: Tenderness Musculoskeletal: Yes: Back Pain Edema: No (no LE edema) Neurological: Yes: Alert, Oriented Labs: CBC, BMP 11/06/17 06:50 11/06/17 06:50 INR, PTT INR 1.24 (0.82-1.09) H 11/02/17 18:40 - ....Imaging Ultrasound: Report Reviewed Problem List - Problems (1) Acute on chronic renal failure Code(s): N17.9 - ACUTE KIDNEY FAILURE, UNSPECIFIED; N18.9 - CHRONIC KIDNEY DISEASE, UNSPECIFIED (2) Pneumonia Code(s): J18.9 - PNEUMONIA, UNSPECIFIED ORGANISM Qualifiers: Pneumonia type: due to unspecified organism Laterality: right Lung location: unspecified part of lung Qualified Code(s): J18.9 - Pneumonia, unspecified organism (3) Back pain Code(s): M54.9 - DORSALGIA, UNSPECIFIED Qualifiers: Back pain location: low back pain Chronicity: chronic Back pain laterality: bilateral Sciatica presence: without sciatica Qualified Code(s) : M54.5 - Low back pain; G89.29 - Other chronic pain (4) Anemia Code(s): D64.9 - ANEMIA, UNSPECIFIED Qualifiers: Anemia type: unspecified cause Assessment/Plan ESRD: -patients Cr is improving is now down to 4.2 from 4.8 yesterday however, BUN is rising likely secondary to steroid use and should improve once steroids are tapered -will give fluids; 1/2 NS @42cc/hr for 10 hours -trend CMP and fluid status
[2017-11-06] MEDS ORDERED: SODIUM CHLORIDE 0.45% 1,000 ML IV SCH (11:45)
--- NOTE | 2017-11-06 12:32 | PN ---
Teaching Attending Note Name of Resident: Sangita Rae (Nephrology) ATTENDING PHYSICIAN STATEMENT I saw and evaluated the patient. I reviewed the resident's note and discussed the case with the resident. I agree with the resident's findings and plan as documented. Renal Follow up Pt seen and examined at bedside. She is awake and alert. She denies shortness of breath. Current Medications Generic Name Dose Route Start Last Admin Trade Name Freq PRN Reason Stop Dose Admin Acetaminophen 650 mg 11/02/17 21:00 11/06/17 09:49 Tylenol - PO 650 mg Q6H JACKY Administration Acetaminophen 325 mg 11/04/17 11:22 11/05/17 18:43 Tylenol - PO 325 mg Q6H PRN Administration PAIN LEVEL 6-10 Albuterol/Ipratropium 1 amp 11/03/17 05:39 11/05/17 22:45 Duoneb - NEB 1 amp Q6H PRN Administration WHEEZING Albuterol/Ipratropium 1 amp 11/05/17 08:00 11/06/17 11:55 Duoneb - NEB 1 amp RQID JACKY Administration Alprazolam 0.5 mg 11/04/17 17:22 11/06/17 02:55 Xanax - PO 0.5 mg Q8H PRN Administration ANXIETY Azithromycin 500 mg/ Dextrose 250 mls @ 250 mls/hr 11/03/17 10:00 11/06/17 09 :50 IVPB 250 mls/hr DAILY JACKY Administration Ceftriaxone Sodium 2 gm/ 50 mls @ 100 mls/hr 11/03/17 10:00 11/06/17 09:50 Dextrose IVPB 100 mls/hr DAILY JACKY Administration Protocol Sodium Chloride 1,000 mls @ 42 mls/hr 11/06/17 11:45 1/2 Normal Saline IV 11/06/17 21:45 ASDIR JACKY Melatonin 10 mg 11/02/17 22:00 11/05/17 21:07 Melatonin PO 10 mg HS JACKY Administration Methocarbamol 500 mg 11/03/17 05:22 11/04/17 10:14 Robaxin - PO 500 mg TID PRN Administration PAIN Oxycodone HCl 5 mg 11/04/17 11:22 11/06/17 09:52 Roxicodone - PO 5 mg Q6H PRN Administration PAIN LEVEL 6-10 Pantoprazole Sodium 40 mg 11/04/17 11:30 11/06/17 09:49 Protonix - PO 40 mg DAILY JACKY Administration Last Vital Signs Temp Pulse Resp BP Pulse Ox 97.3 F L 96 H 18 112/59 96 11/06/17 10:00 11/06/17 10:00 11/06/17 10:00 11/06/17 10:00 11/06/17 09:00 cardio s1s2 pulm wheeze GI soft ext neg edema neuro awake and alert skin neg rash circ pos pulses back pain Impression 1. CKD with acute component 2. COPD 3. chronic back pain on opioids 4. anemia 5. anxiety 6. PNA 7. 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
--- NOTE | 2017-11-06 13:28 | PN ---
Physical Exam: SUBJECTIVE: 62 year old female with a significant PMH of asthma, anemia, chronic kidney disease,chronic back pain, presents for pneumonia. She complains of chronic back pain. She had no acute events overnight. OBJECTIVE: Vital Signs Period Temp Pulse Resp BP Sys/Bills Pulse Ox Last 24 Hr 97.3 F-98.8 F 88-99 18-20 112-132/59-88 96-96 GENERAL: The patient is awake, alert, and fully oriented, tenderness to palpation diffusely EYES: PERRL, extraocular movements intact ENT: moist mucous membranes. LUNGS: mild expiratory wheezes HEART: Regular rate and rhythm, S1, S2 ABDOMEN: Soft, nontender, nondistended, normoactive bowel sounds EXTREMITIES: 2+ pulses, warm, well-perfused, no edema. SKIN: Warm, dry, normal turgor, no rashes or lesions noted Laboratory Results - last 24 hr 11/06/17 11/06/17 06:50 06:50 WBC 11.0 H RBC 2.98 L Hgb 8.8 L Hct 25.3 L MCV 84.6 MCH 29.5 MCHC 34.8 RDW 17.0 H Plt Count 459 H MPV 7.0 L Sodium 138 Potassium 3.8 Chloride 102 Carbon Dioxide 24 Anion Gap 12 BUN 124 H* Creatinine 4.2 H Creat Clearance w eGFR 10.80 Random Glucose 118 H Calcium 8.8 Active Medications Generic Name Dose Route Start Last Admin Trade Name Freq PRN Reason Stop Dose Admin Acetaminophen 650 mg 11/02/17 21:00 11/06/17 09:49 Tylenol - PO 650 mg Q6H JACKY Administration Acetaminophen 325 mg 11/04/17 11:22 11/05/17 18:43 Tylenol - PO 325 mg Q6H PRN Administration PAIN LEVEL 6-10 Albuterol/Ipratropium 1 amp 11/03/17 05:39 11/05/17 22:45 Duoneb - NEB 1 amp Q6H PRN Administration WHEEZING Albuterol/Ipratropium 1 amp 11/05/17 08:00 11/06/17 11:55 Duoneb - NEB 1 amp RQID JACKY Administration Alprazolam 0.5 mg 11/04/17 17:22 11/06/17 02:55 Xanax - PO 0.5 mg Q8H PRN Administration ANXIETY Azithromycin 500 mg/ Dextrose 250 mls @ 250 mls/hr 11/03/17 10:00 11/06/17 09 :50 IVPB 250 mls/hr DAILY JACKY Administration Ceftriaxone Sodium 2 gm/ 50 mls @ 100 mls/hr 11/03/17 10:00 11/06/17 09:50 Dextrose IVPB 100 mls/hr DAILY JACKY Administration Protocol Sodium Chloride 1,000 mls @ 42 mls/hr 11/06/17 11:45 1/2 Normal Saline IV 11/06/17 21:45 ASDIR JACKY Melatonin 10 mg 11/02/17 22:00 11/05/17 21:07 Melatonin PO 10 mg HS JACKY Administration Methocarbamol 500 mg 11/03/17 05:22 11/04/17 10:14 Robaxin - PO 500 mg TID PRN Administration PAIN Oxycodone HCl 5 mg 11/04/17 11:22 11/06/17 09:52 Roxicodone - PO 5 mg Q6H PRN Administration PAIN LEVEL 6-10 Pantoprazole Sodium 40 mg 11/04/17 11:30 11/06/17 09:49 Protonix - PO 40 mg DAILY JACKY Administration ASSESSMENT/PLAN: 62 year old female with a significant PMH of asthma, anemia, chronic kidney disease,chronic back pain, presents for sepsis 2/2 to pneumonia. #sepsis 2/2 to pneumonia - ceftriaxone/azithromycin (day 4) - CXR showed RLL infiltrates, - CXR 11/05- ateletasis R base, congestion improved - WBC: 11 - abd US: gallbladder not identified, liver no masses, pancreas normal in size - nares + MRSA, BC no growth - f/u ekg - short course steroids, prednisone 30 mg (day 3), protonix 40 mg po #LUCIEN on CKD - BUN: 124, Cr; 4.2 - 1/2 NS @ 42 - consulted Dr. Coe - Renal US: no hydronephrosis, chronic bilateral renal disease - PT will need outpatient treatment for CKD #acute CHF exacerbation - BNP: 3271 - 40 mg IV push lasix one time dose - echo: LEVF: 65 %, normal size and function #chronic back pain - acetaminophen as needed - Oxycodone 5 mg PO Q6H prn #Anxiety -Xanax .5 mg Q8H prn #HTN - monitor BP Dispo: f/u PT, monitor LUCIEN on CKD, possibly tomorrow Visit type - Emergency Visit Emergency Visit: No - New Patient This patient is new to me today: No - Critical Care Critical Care patient: No
--- NOTE | 2017-11-06 15:42 | PN ---
Teaching Attending Note Name of Resident: Jo Ramos ATTENDING PHYSICIAN STATEMENT I saw and evaluated the patient. I reviewed the resident's note and discussed the case with the resident. I agree with the resident's findings and plan as documented. SUBJECTIVE: Patient is comfortbale, lyin gin bed with no acute distress. OBJECTIVE: Vital Signs Temperature 98.0 F 11/06/17 14:20 Pulse Rate 76 11/06/17 14:20 Respiratory Rate 16 11/06/17 14:20 Blood Pressure 144/70 11/06/17 14:20 O2 Sat by Pulse Oximetry (%) 96 11/06/17 09:00 CBCD WBC 11.0 K/mm3 (4.0-10.0) H 11/06/17 06:50 RBC 2.98 M/mm3 (3.60-5.2) L 11/06/17 06:50 Hgb 8.8 GM/dL (10.7-15.3) L 11/06/17 06:50 Hct 25.3 % (32.4-45.2) L 11/06/17 06:50 MCV 84.6 fl (80-96) 11/06/17 06:50 MCHC 34.8 g/dl (32.0-36.0) 11/06/17 06:50 RDW 17.0 % (11.6-15.6) H 11/06/17 06:50 Plt Count 459 K/MM3 (134-434) H 11/06/17 06:50 MPV 7.0 fl (7.5-11.1) L 11/06/17 06:50 CMP Sodium 138 mmol/L (136-145) 11/06/17 06:50 Potassium 3.8 mmol/L (3.5-5.1) 11/06/17 06:50 Chloride 102 mmol/L (98-107) 11/06/17 06:50 Carbon Dioxide 24 mmol/L (21-32) 11/06/17 06:50 Anion Gap 12 (8-16) 11/06/17 06:50 BUN 124 mg/dL (7-18) H* 11/06/17 06:50 Creatinine 4.2 mg/dL (0.55-1.02) H 11/06/17 06:50 Creat Clearance w eGFR 10.80 (>60) 11/06/17 06:50 Random Glucose 118 mg/dL (74-106) H 11/06/17 06:50 Calcium 8.8 mg/dL (8.5-10.1) 11/06/17 06:50 Total Bilirubin 0.3 mg/dL (0.2-1.0) 11/05/17 07:30 AST 12 U/L (15-37) L 11/05/17 07:30 ALT 20 U/L (12-78) 11/05/17 07:30 Alkaline Phosphatase 130 U/L (45-117) H D 11/05/17 07:30 Total Protein 6.1 g/dl (6.4-8.2) L 11/05/17 07:30 Albumin 2.4 g/dl (3.4-5.0) L 11/05/17 07:30 CARDIAC ENZYMES Creatine Kinase 27 IU/L (26-192) 11/04/17 08:15 Troponin I < 0.02 ng/ml (0.00-0.05) 11/04/17 08:15 Current Medications Generic Name Dose Route Start Last Admin Trade Name Freq PRN Reason Stop Dose Admin Acetaminophen 650 mg 11/02/17 21:00 11/06/17 09:49 Tylenol - PO 650 mg Q6H JACYK Administration Acetaminophen 325 mg 11/04/17 11:22 11/05/17 18:43 Tylenol - PO 325 mg Q6H PRN Administration PAIN LEVEL 6-10 Albuterol/Ipratropium 1 amp 11/03/17 05:39 11/05/17 22:45 Duoneb - NEB 1 amp Q6H PRN Administration WHEEZING Albuterol/Ipratropium 1 amp 11/05/17 08:00 11/06/17 11:55 Duoneb - NEB 1 amp RQID JACKY Administration Alprazolam 0.5 mg 11/04/17 17:22 11/06/17 02:55 Xanax - PO 0.5 mg Q8H PRN Administration ANXIETY Azithromycin 500 mg/ Dextrose 250 mls @ 250 mls/hr 11/03/17 10:00 11/06/17 09 :50 IVPB 250 mls/hr DAILY JACKY Administration Ceftriaxone Sodium 2 gm/ 50 mls @ 100 mls/hr 11/03/17 10:00 11/06/17 09:50 Dextrose IVPB 100 mls/hr DAILY JACKY Administration Protocol Sodium Chloride 1,000 mls @ 42 mls/hr 11/06/17 11:45 1/2 Normal Saline IV 11/06/17 21:45 ASDIR JACKY Melatonin 10 mg 11/02/17 22:00 11/05/17 21:07 Melatonin PO 10 mg HS JACKY Administration Methocarbamol 500 mg 11/03/17 05:22 11/04/17 10:14 Robaxin - PO 500 mg TID PRN Administration PAIN Oxycodone HCl 5 mg 11/04/17 11:22 11/06/17 09:52 Roxicodone - PO 5 mg Q6H PRN Administration PAIN LEVEL 6-10 Pantoprazole Sodium 40 mg 11/04/17 11:30 11/06/17 09:49 Protonix - PO 40 mg DAILY JACKY Administration Prednisone 20 mg 11/07/17 08:00 Deltasone - PO 11/07/17 08:01 ONCE ONE Home Medications Medication Instructions Recorded Acetaminophen 500 mg PO Q4H PRN 11/02/17 Albuterol Sulfate Inhaler - 1 - 2 inh PO Q4H PRN 11/02/17 [Ventolin Hfa Inhaler -] Albuterol Sulfate Inhaler - 2 inh PO Q4H 11/02/17 [Ventolin Hfa Inhaler -] Lidocaine 5% Patch [Lidoderm Patch 1 patch TP DAILY PRN 11/02/17 -] Methocarbamol [Robaxin -] 500 mg PO TID PRN 11/02/17 Silver Sulfadiazine 1% Top Cr 1 applic TP DAILY 11/02/17 [Silvadene -] Amlodipine Besylate 10 mg PO DAILY 11/04/17 Atorvastatin Ca [Lipitor] 10 mg PO DAILY 11/04/17 Cyproheptadine [Periactin -] 8 mg PO DAILY 11/04/17 Donepezil HCl 5 mg PO DAILY 11/04/17 Gabapentin 600 mg PO Q8H 11/04/17 Hydrochlorothiazide 12.5 mg PO DAILY 11/04/17 Omeprazole 40 mg PO DAILY 11/04/17 Paroxetine HCl 20 mg PO DAILY 11/04/17 Quetiapine Fumarate [Seroquel -] 25 mg PO DAILY 11/04/17 Tizanidine HCl 4 mg PO DAILY 11/04/17 PE: per resident's note Microbiology 11/02/17 20:14 Blood - Peripheral Venous Blood Culture - Preliminary NO GROWTH OBTAINED AFTER 96 HOURS, INCUBATION TO CONTINUE FOR 1 DAYS. 11/02/17 20:14 Blood - Peripheral Venous Blood Culture - Preliminary NO GROWTH OBTAINED AFTER 96 HOURS, INCUBATION TO CONTINUE FOR 1 DAYS. 11/03/17 11:00 Nares - Mrsa Screen - Right MRSA Screen - Final S Aureus 11/03/17 11:00 Nares - Mrsa Screen - Left MRSA Screen - Final S Aureus 11/03/17 07:26 Urine For Antigen Detection Legionella Antigen - Final 11/03/17 07:26 Urine For Antigen Detection Streptococcus pneumoniae Antigen (M - Final Renal ultrasound Clinical information given: evaluate lucien on ckd There is no hydronephrosis. As on a previous ultrasound study of 01/13/2016 the renal cortices bilaterally demonstrate increased echogenicity consistent with medical nephropathy. There is associated partial obscuration of the corticomedullary junction bilaterally. The right kidney small in size measuring 8 cm in length. The left kidney measures 9.4 cm. No obvious mass lesion or calculus is identified within the limitations of sonography. Incidental note is made of a 1.3 cm right renal cortical cyst. Impression: No obvious interval change is noted in comparison to a previous ultrasound study of 01/13/2016. There is no hydronephrosis. Findings the noted consistent with chronic bilateral medical renal disease. Reported By: Jean Paul Dodd MD 11/05/17 [id number] ASSESSMENT AND PLAN: Patient is a 62 y/o lady with h/o HTN, hyperlipidemia, hypothyroidism, stage 4 CKD, iron-deficiency anemia, depression, anxiety, chronic back pain and peripheral neuropathy, presented with cough, and SOB and was found to have sepsis due to PNA. # Sepsis : due to CAP. completed Abx day 5/5 of rocephin and zithromax , cultures as above # Acute COPD exacerbation improved wheezing on steroids and IV antibiotic # LUCIEN on CKD: given IVF which made renal function worse ( 4.9--> 5.1-->4.2 today ) . renal function improved with diuresis . hold off any further IVF and diuretics . follow protein to creatine ratio, renal ultrasound as above, nephro on the case DVT Px: Heparin
[2017-11-06] MEDS: ACETAMINOPHEN 325 MG TABLET (FP) PO PRN (20:31)
[2017-11-06] MEDS: MELATONIN 5 MG TABLETS PO SCH (22:00)
[2017-11-07] MEDS: ALPRAZolam 0.25 MG TABLET PO PRN ×2 (01:15→10:54)
[2017-11-07] MEDS: ACETAMINOPHEN 325 MG TABLET (FP) PO SCH ×4 (02:54→20:18)
[2017-11-07] MEDS: ACETAMINOPHEN 325 MG TABLET (FP) PO PRN ×3 (05:58→20:15)
[2017-11-07] MEDS: oxyCODONE HCL 5 MG TABLET PO PRN ×3 (06:02→20:14)
[2017-11-07 08:00] LABS: HEMATOCRIT 25.6 % (32.4-45.2); HEMOGLOBIN 8.8 GM/dL (10.7-15.3); MCHC 34.5 g/dl (32.0-36.0); MEAN CELL VOLUME 84.1 fl (80-96); PLATELET COUNT 474 K/MM3 (134-434); RBC 3.04 M/mm3 (3.60-5.2); RDW 16.9 % (11.6-15.6); WHITE BLOOD COUNT 13.6 K/mm3 (4.0-10.0)
[2017-11-07] MEDS: ALBUTEROL SO4 2.5/IPRATROPIUM 0.5 INH SOL 3 ML VIAL.NEB. NEB SCH ×4 (08:00→20:11)
[2017-11-07] MEDS ORDERED: predniSONE 20 MG TABLET (UD) PO ONE (08:00)
[2017-11-07 08:25] LABS: CHLORIDE 101 mmol/L (98-107); SODIUM 137 mmol/L (136-145)
[2017-11-07 08:29] LABS: ANION GAP 11 (8-16); CO2 25 mmol/L (21-32); CREATININE 3.9 mg/dL (0.55-1.02); GLUCOSE,RANDOM 97 mg/dL (74-106)
[2017-11-07] MEDS ORDERED: DEXTROSE 5%-WATER - 50 ML IVPB ONE (08:53)
[2017-11-07 08:54] LABS: BLOOD UREA NITROGEN 121 mg/dL (7-18)
[2017-11-07] MEDS: PANTOPRAZOLE 40 MG TABLET (FP) PO SCH (09:00)
[2017-11-07] MEDS: CEFTRIAXONE 2 GM in DEXTROSE 5%-WATER - 50 ML IVPB SCH (09:00)
--- NOTE | 2017-11-07 10:31 | PN ---
Progress Note, Physician History of Present Illness: no acute events overnight. patient states that shes is feeling better- her back pain is improving and her breathing is better. she denies any CP/N/V. appears a little less dry after having some gentle hydration. - Current Medication List Current Medications: Active Medications Acetaminophen (Tylenol -) 650 mg PO Q6H JACKY Last Admin: 11/07/17 09:01 Dose: Not Given Acetaminophen (Tylenol -) 325 mg PO Q6H PRN PRN Reason: PAIN LEVEL 6-10 Last Admin: 11/07/17 05:58 Dose: 325 mg Albuterol/Ipratropium (Duoneb -) 1 amp NEB Q6H PRN PRN Reason: WHEEZING Last Admin: 11/05/17 22:45 Dose: 1 amp Albuterol/Ipratropium (Duoneb -) 1 amp NEB RQID JACKY Last Admin: 11/07/17 08:00 Dose: Not Given Alprazolam (Xanax -) 0.5 mg PO Q8H PRN PRN Reason: ANXIETY Last Admin: 11/07/17 01:15 Dose: 0.5 mg Azithromycin 500 mg/ Dextrose 250 mls @ 250 mls/hr IVPB DAILY [facility] Last Admin: 11/06/17 09:50 Dose: 250 mls/hr Ceftriaxone Sodium 2 gm/ (Dextrose) 50 mls @ 100 mls/hr IVPB DAILY [facility]; Protocol Last Admin: 11/07/17 09:00 Dose: 100 mls/hr Sodium Chloride (1/2 Normal Saline) 1,000 mls @ 42 mls/hr IV ASDIR [facility] Melatonin (Melatonin) 10 mg PO HS [facility] Last Admin: 11/06/17 22:00 Dose: 10 mg Methocarbamol (Robaxin -) 500 mg PO TID PRN PRN Reason: PAIN Last Admin: 11/04/17 10:14 Dose: 500 mg Oxycodone HCl (Roxicodone -) 5 mg PO Q6H PRN PRN Reason: PAIN LEVEL 6-10 Last Admin: 11/07/17 06:02 Dose: 5 mg Pantoprazole Sodium (Protonix -) 40 mg PO DAILY [facility] Last Admin: 11/07/17 09:00 Dose: 40 mg - Objective Vital Signs: Vital Signs Temperature 97.5 F L 11/07/17 08:10 Pulse Rate 68 11/07/17 08:10 Respiratory Rate 16 11/07/17 08:10 Blood Pressure 127/68 11/07/17 08:10 O2 Sat by Pulse Oximetry (%) 96 11/06/17 21:00 Constitutional: Yes: No Distress Cardiovascular: Yes: Regular Rate and Rhythm. No: Murmur Respiratory: Yes: CTA Bilaterally Gastrointestinal: Yes: Normal Bowel Sounds, Soft. No: Tenderness Musculoskeletal: Yes: Back Pain Edema: No (no LE edema ) Labs: CBC, BMP 11/07/17 06:20 11/07/17 06:20 INR, PTT INR 1.24 (0.82-1.09) H 11/02/17 18:40 Problem List - Problems (1) Acute on chronic renal failure Code(s): N17.9 - ACUTE KIDNEY FAILURE, UNSPECIFIED; N18.9 - CHRONIC KIDNEY DISEASE, UNSPECIFIED (2) Pneumonia Code(s): J18.9 - PNEUMONIA, UNSPECIFIED ORGANISM Qualifiers: Pneumonia type: due to unspecified organism Laterality: right Lung location: unspecified part of lung Qualified Code(s): J18.9 - Pneumonia, unspecified organism (3) Back pain Code(s): M54.9 - DORSALGIA, UNSPECIFIED Qualifiers: Back pain location: low back pain Chronicity: chronic Back pain laterality: bilateral Sciatica presence: without sciatica Qualified Code(s) : M54.5 - Low back pain; G89.29 - Other chronic pain (4) Anemia Code(s): D64.9 - ANEMIA, UNSPECIFIED Qualifiers: Anemia type: unspecified cause Assessment/Plan patients Cr is improving down from 4.2 to 3.9 -elevated BUN likely secondary from steroid use: still elevated at 121 -continue monitoring CMP and fluid status -check fecal occult blood to rule out any bleed given elevated BUN
[2017-11-07] MEDS ORDERED: PT OWN MED DRAWER 7, Y5N ONE (10:45)
[2017-11-07] MEDS: AZITHROMYCIN IVPB 500 MG in DEXTROSE 5%-WATER - 250 ML IVPB SCH (10:54)
[2017-11-07] MEDS: SODIUM CHLORIDE 0.45% 1,000 ML IV SCH ×2 (11:05→18:20)
--- NOTE | 2017-11-07 15:13 | PN ---
Physical Exam: SUBJECTIVE: 62 year old female with a significant PMH of asthma, anemia, chronic kidney disease,chronic back pain, presents for pneumonia. She complains of chronic back pain. She had no acute events overnight. OBJECTIVE: Vital Signs Period Temp Pulse Resp BP Sys/Bills Pulse Ox Last 24 Hr 97.5 F-98 F 68-96 16-20 116-152/52-68 96-96 GENERAL: The patient is awake, alert, and fully oriented, tenderness to palpation diffusely EYES: PERRL, extraocular movements intact ENT: moist mucous membranes. LUNGS: mild expiratory wheezes HEART: Regular rate and rhythm, S1, S2 ABDOMEN: Soft, nontender, nondistended, normoactive bowel sounds EXTREMITIES: 2+ pulses, warm, well-perfused, no edema. SKIN: Warm, dry, normal turgor, no rashes or lesions noted Laboratory Results - last 24 hr 11/07/17 11/07/17 06:20 06:20 WBC 13.6 H RBC 3.04 L Hgb 8.8 L Hct 25.6 L MCV 84.1 MCH 29.0 MCHC 34.5 RDW 16.9 H Plt Count 474 H MPV 7.0 L Sodium 137 Potassium 4.0 Chloride 101 Carbon Dioxide 25 Anion Gap 11 BUN 121 H* Creatinine 3.9 H Creat Clearance w eGFR 11.76 Random Glucose 97 Calcium 9.0 Active Medications Generic Name Dose Route Start Last Admin Trade Name Freq PRN Reason Stop Dose Admin Acetaminophen 650 mg 11/02/17 21:00 11/07/17 09:01 Tylenol - PO Not Given Q6H JACKY Acetaminophen 325 mg 11/04/17 11:22 11/07/17 14:01 Tylenol - PO 325 mg Q6H PRN Administration PAIN LEVEL 6-10 Albuterol/Ipratropium 1 amp 11/03/17 05:39 11/05/17 22:45 Duoneb - NEB 1 amp Q6H PRN Administration WHEEZING Albuterol/Ipratropium 1 amp 11/05/17 08:00 11/07/17 12:00 Duoneb - NEB 1 amp RQID JACKY Administration Alprazolam 0.5 mg 11/04/17 17:22 11/07/17 10:54 Xanax - PO 0.5 mg Q8H PRN Administration ANXIETY Azithromycin 500 mg/ Dextrose 250 mls @ 250 mls/hr 11/03/17 10:00 11/07/17 10 :54 IVPB 250 mls/hr DAILY JACKY Administration Ceftriaxone Sodium 2 gm/ 50 mls @ 100 mls/hr 11/03/17 10:00 11/07/17 09:00 Dextrose IVPB 100 mls/hr DAILY JACKY Administration Protocol Sodium Chloride 1,000 mls @ 42 mls/hr 11/07/17 10:30 11/07/17 11:05 1/2 Normal Saline IV Not Given ASDIR JACKY Melatonin 10 mg 11/02/17 22:00 11/06/17 22:00 Melatonin PO 10 mg HS JACKY Administration Methocarbamol 500 mg 11/03/17 05:22 11/04/17 10:14 Robaxin - PO 500 mg TID PRN Administration PAIN Oxycodone HCl 5 mg 11/07/17 12:57 11/07/17 14:02 Roxicodone - PO 5 mg Q6H PRN Administration PAIN LEVEL 6-10 Pantoprazole Sodium 40 mg 11/04/17 11:30 11/07/17 09:00 Protonix - PO 40 mg DAILY JACKY Administration ASSESSMENT/PLAN: 62 year old female with a significant PMH of asthma, anemia, chronic kidney disease,chronic back pain, presents for sepsis 2/2 to pneumonia. #sepsis 2/2 to pneumonia - ceftriaxone/azithromycin (day 5) - CXR showed RLL infiltrates, - CXR 11/05- ateletasis R base, congestion improved - WBC: 13 - abd US: gallbladder not identified, liver no masses, pancreas normal in size - nares + MRSA, BC no growth - f/u ekg - short course steroids, prednisone 20 mg (day 4), protonix 40 mg po #LUCIEN on CKD - BUN: 121, Cr; 3.9 - 1/2 NS @ 42 - consulted Dr. Coe - Renal US: no hydronephrosis, chronic bilateral renal disease - PT will need outpatient treatment for CKD #acute CHF exacerbation - BNP: 3271 - 40 mg IV push lasix one time dose - echo: LEVF: 65 %, normal size and function #chronic back pain - acetaminophen as needed - Oxycodone 5 mg PO Q6H prn #Anxiety -Xanax .5 mg Q8H prn #HTN - monitor BP Dispo: f/u PT, monitor LUCIEN on CKD, D/C tomorrow Visit type - Emergency Visit Emergency Visit: No - New Patient This patient is new to me today: No - Critical Care Critical Care patient: No
--- NOTE | 2017-11-07 16:55 | PN ---
Teaching Attending Note Name of Resident: Sangita Rae (Nephrology) ATTENDING PHYSICIAN STATEMENT I saw and evaluated the patient. I reviewed the resident's note and discussed the case with the resident. I agree with the resident's findings and plan as documented. Renal Pt seen and examined at bedside. She is awake and alert. She denies shortness of breath. Current Medications Generic Name Dose Route Start Last Admin Trade Name Freq PRN Reason Stop Dose Admin Acetaminophen 650 mg 11/02/17 21:00 11/07/17 16:37 Tylenol - PO Not Given Q6H JACKY Acetaminophen 325 mg 11/04/17 11:22 11/07/17 14:01 Tylenol - PO 325 mg Q6H PRN Administration PAIN LEVEL 6-10 Albuterol/Ipratropium 1 amp 11/03/17 05:39 11/05/17 22:45 Duoneb - NEB 1 amp Q6H PRN Administration WHEEZING Albuterol/Ipratropium 1 amp 11/05/17 08:00 11/07/17 12:00 Duoneb - NEB 1 amp RQID JACKY Administration Alprazolam 0.5 mg 11/04/17 17:22 11/07/17 10:54 Xanax - PO 0.5 mg Q8H PRN Administration ANXIETY Heparin Sodium (Porcine) 5,000 unit 11/07/17 22:00 Heparin - SQ TID JACKY Azithromycin 500 mg/ Dextrose 250 mls @ 250 mls/hr 11/03/17 10:00 11/07/17 10 :54 IVPB 250 mls/hr DAILY JACKY Administration Ceftriaxone Sodium 2 gm/ 50 mls @ 100 mls/hr 11/03/17 10:00 11/07/17 09:00 Dextrose IVPB 100 mls/hr DAILY JACKY Administration Protocol Sodium Chloride 1,000 mls @ 42 mls/hr 11/07/17 10:30 11/07/17 11:05 1/2 Normal Saline IV Not Given ASDIR JACKY Melatonin 10 mg 11/02/17 22:00 11/06/17 22:00 Melatonin PO 10 mg HS JACKY Administration Methocarbamol 500 mg 11/03/17 05:22 11/04/17 10:14 Robaxin - PO 500 mg TID PRN Administration PAIN Oxycodone HCl 5 mg 11/07/17 12:57 11/07/17 14:02 Roxicodone - PO 5 mg Q6H PRN Administration PAIN LEVEL 6-10 Pantoprazole Sodium 40 mg 11/04/17 11:30 11/07/17 09:00 Protonix - PO 40 mg DAILY JACKY Administration Prednisone 10 mg 11/08/17 08:00 Deltasone - PO 11/08/17 08:01 ONCE ONE Laboratory Tests 11/07/17 06:20 BUN 121 H* Creatinine 3.9 H Last Vital Signs Temp Pulse Resp BP Pulse Ox 98.0 F 96 H 18 116/69 96 11/07/17 15:13 11/07/17 15:13 11/07/17 15:13 11/07/17 15:13 11/07/17 09:00 cardio s1s2 pulm wheeze GI soft ext neg edema neuro awake and alert skin neg rash circ pos pulses back pain Impression 1. CKD with acute component 2. COPD 3. chronic back pain on opioids 4. anemia 5. anxiety 6. PNA 7. chf diastolic Plan - renal function is improving - cont gentle hydration - repeat labs in am - steroid taper
--- NOTE | 2017-11-07 18:46 | PN ---
Teaching Attending Note Name of Resident: Jo Ramos ATTENDING PHYSICIAN STATEMENT I saw and evaluated the patient. I reviewed the resident's note and discussed the case with the resident. I agree with the resident's findings and plan as documented. SUBJECTIVE: Patient is comfortable with no acute distress. No shortness of breath. OBJECTIVE: Vital Signs Temperature 98 F 11/07/17 16:15 Pulse Rate 95 H 11/07/17 16:15 Respiratory Rate 18 11/07/17 16:15 Blood Pressure 130/73 11/07/17 16:15 O2 Sat by Pulse Oximetry (%) 96 11/07/17 09:00 CBCD WBC 13.6 K/mm3 (4.0-10.0) H 11/07/17 06:20 RBC 3.04 M/mm3 (3.60-5.2) L 11/07/17 06:20 Hgb 8.8 GM/dL (10.7-15.3) L 11/07/17 06:20 Hct 25.6 % (32.4-45.2) L 11/07/17 06:20 MCV 84.1 fl (80-96) 11/07/17 06:20 MCHC 34.5 g/dl (32.0-36.0) 11/07/17 06:20 RDW 16.9 % (11.6-15.6) H 11/07/17 06:20 Plt Count 474 K/MM3 (134-434) H 11/07/17 06:20 MPV 7.0 fl (7.5-11.1) L 11/07/17 06:20 CMP Sodium 137 mmol/L (136-145) 11/07/17 06:20 Potassium 4.0 mmol/L (3.5-5.1) 11/07/17 06:20 Chloride 101 mmol/L (98-107) 11/07/17 06:20 Carbon Dioxide 25 mmol/L (21-32) 11/07/17 06:20 Anion Gap 11 (8-16) 11/07/17 06:20 BUN 121 mg/dL (7-18) H* 11/07/17 06:20 Creatinine 3.9 mg/dL (0.55-1.02) H 11/07/17 06:20 Creat Clearance w eGFR 11.76 (>60) 11/07/17 06:20 Random Glucose 97 mg/dL (74-106) 11/07/17 06:20 Calcium 9.0 mg/dL (8.5-10.1) 11/07/17 06:20 Total Bilirubin 0.3 mg/dL (0.2-1.0) 11/05/17 07:30 AST 12 U/L (15-37) L 11/05/17 07:30 ALT 20 U/L (12-78) 11/05/17 07:30 Alkaline Phosphatase 130 U/L (45-117) H D 11/05/17 07:30 Total Protein 6.1 g/dl (6.4-8.2) L 11/05/17 07:30 Albumin 2.4 g/dl (3.4-5.0) L 11/05/17 07:30 CARDIAC ENZYMES Creatine Kinase 27 IU/L (26-192) 11/04/17 08:15 Troponin I < 0.02 ng/ml (0.00-0.05) 11/04/17 08:15 Current Medications Generic Name Dose Route Start Last Admin Trade Name Freq PRN Reason Stop Dose Admin Acetaminophen 650 mg 11/02/17 21:00 11/07/17 16:37 Tylenol - PO Not Given Q6H JACKY Acetaminophen 325 mg 11/04/17 11:22 11/07/17 14:01 Tylenol - PO 325 mg Q6H PRN Administration PAIN LEVEL 6-10 Albuterol/Ipratropium 1 amp 11/03/17 05:39 11/05/17 22:45 Duoneb - NEB 1 amp Q6H PRN Administration WHEEZING Albuterol/Ipratropium 1 amp 11/05/17 08:00 11/07/17 12:00 Duoneb - NEB 1 amp RQID JACKY Administration Heparin Sodium (Porcine) 5,000 unit 11/07/17 22:00 Heparin - SQ TID JACKY Azithromycin 500 mg/ Dextrose 250 mls @ 250 mls/hr 11/03/17 10:00 11/07/17 10 :54 IVPB 250 mls/hr DAILY JACKY Administration Ceftriaxone Sodium 2 gm/ 50 mls @ 100 mls/hr 11/03/17 10:00 11/07/17 09:00 Dextrose IVPB 100 mls/hr DAILY JACKY Administration Protocol Sodium Chloride 1,000 mls @ 42 mls/hr 11/07/17 10:30 11/07/17 18:20 1/2 Normal Saline IV 42 mls/hr ASDIR JACKY Administration Melatonin 10 mg 11/02/17 22:00 11/06/17 22:00 Melatonin PO 10 mg HS JACKY Administration Methocarbamol 500 mg 11/03/17 05:22 11/04/17 10:14 Robaxin - PO 500 mg TID PRN Administration PAIN Oxycodone HCl 5 mg 11/07/17 12:57 11/07/17 14:02 Roxicodone - PO 5 mg Q6H PRN Administration PAIN LEVEL 6-10 Pantoprazole Sodium 40 mg 11/04/17 11:30 11/07/17 09:00 Protonix - PO 40 mg DAILY JACKY Administration Prednisone 10 mg 11/08/17 08:00 Deltasone - PO 11/08/17 08:01 ONCE ONE Home Medications Medication Instructions Recorded Acetaminophen 500 mg PO Q4H PRN 11/02/17 Albuterol Sulfate Inhaler - 1 - 2 inh PO Q4H PRN 11/02/17 [Ventolin Hfa Inhaler -] Albuterol Sulfate Inhaler - 2 inh PO Q4H 11/02/17 [Ventolin Hfa Inhaler -] Lidocaine 5% Patch [Lidoderm Patch 1 patch TP DAILY PRN 11/02/17 -] Methocarbamol [Robaxin -] 500 mg PO TID PRN 11/02/17 Silver Sulfadiazine 1% Top Cr 1 applic TP DAILY 11/02/17 [Silvadene -] Amlodipine Besylate 10 mg PO DAILY 11/04/17 Atorvastatin Ca [Lipitor] 10 mg PO DAILY 11/04/17 Cyproheptadine [Periactin -] 8 mg PO DAILY 11/04/17 Donepezil HCl 5 mg PO DAILY 11/04/17 Gabapentin 600 mg PO Q8H 11/04/17 Hydrochlorothiazide 12.5 mg PO DAILY 11/04/17 Omeprazole 40 mg PO DAILY 11/04/17 Paroxetine HCl 20 mg PO DAILY 11/04/17 Quetiapine Fumarate [Seroquel -] 25 mg PO DAILY 11/04/17 Tizanidine HCl 4 mg PO DAILY 11/04/17 PE: per resident's note Microbiology 11/02/17 20:14 Blood - Peripheral Venous Blood Culture - Preliminary NO GROWTH OBTAINED AFTER 96 HOURS, INCUBATION TO CONTINUE FOR 1 DAYS. 11/02/17 20:14 Blood - Peripheral Venous Blood Culture - Preliminary NO GROWTH OBTAINED AFTER 96 HOURS, INCUBATION TO CONTINUE FOR 1 DAYS. 11/03/17 11:00 Nares - Mrsa Screen - Right MRSA Screen - Final S Aureus 11/03/17 11:00 Nares - Mrsa Screen - Left MRSA Screen - Final S Aureus 11/03/17 07:26 Urine For Antigen Detection Legionella Antigen - Final 11/03/17 07:26 Urine For Antigen Detection Streptococcus pneumoniae Antigen (M - Final Renal ultrasound Clinical information given: evaluate lucien on ckd There is no hydronephrosis. As on a previous ultrasound study of 01/13/2016 the renal cortices bilaterally demonstrate increased echogenicity consistent with medical nephropathy. There is associated partial obscuration of the corticomedullary junction bilaterally. The right kidney small in size measuring 8 cm in length. The left kidney measures 9.4 cm. No obvious mass lesion or calculus is identified within the limitations of sonography. Incidental note is made of a 1.3 cm right renal cortical cyst. Impression: No obvious interval change is noted in comparison to a previous ultrasound study of 01/13/2016. There is no hydronephrosis. Findings the noted consistent with chronic bilateral medical renal disease. Reported By: Jean Paul Dodd MD 11/05/17 [id number] ASSESSMENT AND PLAN: Patient is a 62 y/o lady with h/o HTN, hyperlipidemia, hypothyroidism, stage 4 CKD, iron-deficiency anemia, depression, anxiety, chronic back pain and peripheral neuropathy, presented with cough, and SOB and was found to have sepsis due to PNA. # Sepsis : due to CAP. On IV rocephin, last dose in am, completed zithromax , cultures as above. Elevated WBC due to steroids, last dose in am. # Acute COPD exacerbation improved on steroids and IV antibiotic # LUCIEN on CKD due to having BL medical renal disease : given IVF which made renal function worse ( 4.9--> 5.1-->4.2-->3.9 today improving ) . will continue IVF . follow protein to creatine ratio, renal ultrasound as above, nephro on the case, will repeat bun/cre in am DVT Px: Heparin
[2017-11-07] MEDS: MELATONIN 5 MG TABLETS PO SCH (22:01)
[2017-11-07] MEDS: HEPARIN NA (PORCINE) 5,000 UNITS/ML 1ML VIAL SQ SCH (22:02)
[2017-11-08] MEDS: ACETAMINOPHEN 325 MG TABLET (FP) PO PRN ×2 (03:07→15:36)
[2017-11-08] MEDS: oxyCODONE HCL 5 MG TABLET PO PRN ×3 (03:07→21:30)
[2017-11-08] MEDS: ACETAMINOPHEN 325 MG TABLET (FP) PO SCH ×4 (03:46→21:28)
[2017-11-08] MEDS: HEPARIN NA (PORCINE) 5,000 UNITS/ML 1ML VIAL SQ SCH ×3 (07:07→21:30)
[2017-11-08] MEDS: ALBUTEROL SO4 2.5/IPRATROPIUM 0.5 INH SOL 3 ML VIAL.NEB. NEB SCH ×4 (07:36→21:15)
[2017-11-08] MEDS ORDERED: predniSONE 10 MG TABLET (UD) PO ONE (08:00)
[2017-11-08 08:04] LABS: HEMATOCRIT 26.1 % (32.4-45.2); HEMOGLOBIN 8.8 GM/dL (10.7-15.3); MCH 28.4 pg (25.7-33.7); MCHC 33.7 g/dl (32.0-36.0); MEAN CELL VOLUME 84.4 fl (80-96); PLATELET COUNT 499 K/MM3 (134-434); RBC 3.09 M/mm3 (3.60-5.2); RDW 16.9 % (11.6-15.6)
[2017-11-08 08:37] LABS: ANION GAP 12 (8-16); CALCIUM 8.6 mg/dL (8.5-10.1); CHLORIDE 104 mmol/L (98-107); CO2 23 mmol/L (21-32); CREATININE 3.8 mg/dL (0.55-1.02); GLUCOSE,RANDOM 92 mg/dL (74-106); SODIUM 139 mmol/L (136-145)
[2017-11-08 08:40] LABS: POTASSIUM 4.4 mmol/L (3.5-5.1)
[2017-11-08] MEDS ORDERED: DEXTROSE 5%-WATER - 50 ML IVPB ONE (09:05)
[2017-11-08 09:08] LABS: BLOOD UREA NITROGEN 123 mg/dL (7-18)
[2017-11-08] MEDS: CEFTRIAXONE 2 GM in DEXTROSE 5%-WATER - 50 ML IVPB SCH (09:23)
[2017-11-08] MEDS: PANTOPRAZOLE 40 MG TABLET (FP) PO SCH (09:23)
[2017-11-08] MEDS ORDERED: LIDOCAINE 5% TOPICAL PATCH TP ONE (09:31)
--- NOTE | 2017-11-08 13:32 | PN ---
Teaching Attending Note Name of Resident: Jo Ramos ATTENDING PHYSICIAN STATEMENT I saw and evaluated the patient. I reviewed the resident's note and discussed the case with the resident. I agree with the resident's findings and plan as documented. SUBJECTIVE: Patient is c/o having lower of back pain OBJECTIVE: Vital Signs Temperature 98.0 F 11/08/17 09:00 Pulse Rate 96 H 11/08/17 09:00 Respiratory Rate 20 11/08/17 09:00 Blood Pressure 128/71 11/08/17 09:00 O2 Sat by Pulse Oximetry (%) 96 11/07/17 09:00 CBCD WBC 12.0 K/mm3 (4.0-10.0) H 11/08/17 06:20 RBC 3.09 M/mm3 (3.60-5.2) L 11/08/17 06:20 Hgb 8.8 GM/dL (10.7-15.3) L 11/08/17 06:20 Hct 26.1 % (32.4-45.2) L 11/08/17 06:20 MCV 84.4 fl (80-96) 11/08/17 06:20 MCHC 33.7 g/dl (32.0-36.0) 11/08/17 06:20 RDW 16.9 % (11.6-15.6) H 11/08/17 06:20 Plt Count 499 K/MM3 (134-434) H 11/08/17 06:20 MPV 7.0 fl (7.5-11.1) L 11/08/17 06:20 CMP Sodium 139 mmol/L (136-145) 11/08/17 06:20 Potassium 4.4 mmol/L (3.5-5.1) 11/08/17 06:20 Chloride 104 mmol/L (98-107) 11/08/17 06:20 Carbon Dioxide 23 mmol/L (21-32) 11/08/17 06:20 Anion Gap 12 (8-16) 11/08/17 06:20 BUN 123 mg/dL (7-18) H* 11/08/17 06:20 Creatinine 3.8 mg/dL (0.55-1.02) H 11/08/17 06:20 Creat Clearance w eGFR 12.12 (>60) 11/08/17 06:20 Random Glucose 92 mg/dL (74-106) 11/08/17 06:20 Calcium 8.6 mg/dL (8.5-10.1) 11/08/17 06:20 Total Bilirubin 0.3 mg/dL (0.2-1.0) 11/05/17 07:30 AST 12 U/L (15-37) L 11/05/17 07:30 ALT 20 U/L (12-78) 11/05/17 07:30 Alkaline Phosphatase 130 U/L (45-117) H D 11/05/17 07:30 Total Protein 6.1 g/dl (6.4-8.2) L 11/05/17 07:30 Albumin 2.4 g/dl (3.4-5.0) L 11/05/17 07:30 CARDIAC ENZYMES Creatine Kinase 27 IU/L (26-192) 11/04/17 08:15 Troponin I < 0.02 ng/ml (0.00-0.05) 11/04/17 08:15 Current Medications Generic Name Dose Route Start Last Admin Trade Name Freq PRN Reason Stop Dose Admin Acetaminophen 650 mg 11/02/17 21:00 11/08/17 09:24 Tylenol - PO Not Given Q6H JACKY Acetaminophen 325 mg 11/04/17 11:22 11/08/17 03:07 Tylenol - PO 325 mg Q6H PRN Administration PAIN LEVEL 6-10 Albuterol/Ipratropium 1 amp 11/03/17 05:39 11/05/17 22:45 Duoneb - NEB 1 amp Q6H PRN Administration WHEEZING Albuterol/Ipratropium 1 amp 11/05/17 08:00 11/08/17 11:59 Duoneb - NEB 1 amp RQID JACKY Administration Heparin Sodium (Porcine) 5,000 unit 11/07/17 22:00 11/08/17 07:07 Heparin - SQ 5,000 unit TID JACKY Administration Ceftriaxone Sodium 2 gm/ 50 mls @ 100 mls/hr 11/03/17 10:00 11/08/17 09:23 Dextrose IVPB 100 mls/hr DAILY JACKY Administration Protocol Sodium Chloride 1,000 mls @ 42 mls/hr 11/07/17 10:30 11/07/17 18:20 1/2 Normal Saline IV 42 mls/hr ASDIR JACKY Administration Melatonin 10 mg 11/02/17 22:00 11/07/17 22:01 Melatonin PO 10 mg HS JACKY Administration Methocarbamol 500 mg 11/03/17 05:22 11/04/17 10:14 Robaxin - PO 500 mg TID PRN Administration PAIN Miscellaneous 1 each 11/08/17 22:00 Lidoderm Patch Removal MC 11/08/17 22:01 ONCE ONE Oxycodone HCl 5 mg 11/07/17 12:57 11/08/17 03:07 Roxicodone - PO 5 mg Q6H PRN Administration PAIN LEVEL 6-10 Pantoprazole Sodium 40 mg 11/04/17 11:30 11/08/17 09:23 Protonix - PO 40 mg DAILY JACKY Administration Home Medications Medication Instructions Recorded Methocarbamol [Robaxin -] 500 mg PO TID PRN 11/02/17 Amlodipine Besylate 10 mg PO DAILY 11/04/17 Atorvastatin Ca [Lipitor] 10 mg PO DAILY 11/04/17 Cyproheptadine [Periactin -] 8 mg PO DAILY 11/04/17 Donepezil HCl 5 mg PO DAILY 11/04/17 Gabapentin 600 mg PO Q8H 11/04/17 Hydrochlorothiazide 12.5 mg PO DAILY 11/04/17 Omeprazole 40 mg PO DAILY 11/04/17 Paroxetine HCl 20 mg PO DAILY 11/04/17 Quetiapine Fumarate [Seroquel -] 25 mg PO DAILY 11/04/17 Tizanidine HCl 4 mg PO DAILY 11/04/17 PE: per resident's note Microbiology 11/02/17 20:14 Blood - Peripheral Venous Blood Culture - Preliminary NO GROWTH OBTAINED AFTER 96 HOURS, INCUBATION TO CONTINUE FOR 1 DAYS. 11/02/17 20:14 Blood - Peripheral Venous Blood Culture - Preliminary NO GROWTH OBTAINED AFTER 96 HOURS, INCUBATION TO CONTINUE FOR 1 DAYS. 11/03/17 11:00 Nares - Mrsa Screen - Right MRSA Screen - Final Mr S Aureus 11/03/17 11:00 Nares - Mrsa Screen - Left MRSA Screen - Final Mr S Aureus 11/03/17 07:26 Urine For Antigen Detection Legionella Antigen - Final 11/03/17 07:26 Urine For Antigen Detection Streptococcus pneumoniae Antigen (M - Final Renal ultrasound Clinical information given: evaluate lucien on ckd There is no hydronephrosis. As on a previous ultrasound study of 01/13/2016 the renal cortices bilaterally demonstrate increased echogenicity consistent with medical nephropathy. There is associated partial obscuration of the corticomedullary junction bilaterally. The right kidney small in size measuring 8 cm in length. The left kidney measures 9.4 cm. No obvious mass lesion or calculus is identified within the limitations of sonography. Incidental note is made of a 1.3 cm right renal cortical cyst. Impression: No obvious interval change is noted in comparison to a previous ultrasound study of 01/13/2016. There is no hydronephrosis. Findings the noted consistent with chronic bilateral medical renal disease. Reported By: Jean Paul Dodd MD 11/05/17 0708. ASSESSMENT AND PLAN: Patient is a 62 y/o lady with PMHx HTN, HLD, hypothyroidism, stage 4 CKD, iron- deficiency anemia, depression, anxiety, chronic back pain and peripheral neuropathy, presented with cough, and SOB and was found to have sepsis due to PNA. # Low back pain: dolores get MM w/u , Lidoderm patch, ordered, Oncology consult , Ct of low back and also ordered Skeletal survey. # s/p Sepsis : due to CAP. s/p IV rocephin completed the treatment. cultures as above. Elevated WBC due to steroids, completed the steroid. # s/p COPD exacerbation improved completed steroids and IV antibiotic. # LUCIEN on CKD due to having BL medical renal disease : given IVF which made renal function worse (4.9--> 5.1-->4.2-->3.9-->3.8 today improving) . will continue IVF . follow protein to creatine ratio, renal ultrasound as above, nephro on the case, will repeat bun/cre in am. DVT Px: Heparin
[2017-11-08] MEDS: SODIUM CHLORIDE 0.45% 1,000 ML IV SCH (14:47)
--- NOTE | 2017-11-08 14:48 | PN ---
Physical Exam: SUBJECTIVE: 62 year old female with a significant PMH of asthma, anemia, chronic kidney disease,chronic back pain, presents for pneumonia. She complains of chronic back pain. She had no acute events overnight. OBJECTIVE: Vital Signs Period Temp Pulse Resp BP Sys/Bills Pulse Ox Last 24 Hr 97.9 F-98.0 F 94-96 18-20 116-155/69-98 GENERAL: The patient is awake, alert, and fully oriented, tenderness to palpation diffusely EYES: PERRL, extraocular movements intact ENT: moist mucous membranes. LUNGS: mild expiratory wheezes HEART: Regular rate and rhythm, S1, S2 ABDOMEN: Soft, nontender, nondistended, normoactive bowel sounds EXTREMITIES: 2+ pulses, warm, well-perfused, no edema. SKIN: Warm, dry, normal turgor, no rashes or lesions noted Laboratory Results - last 24 hr 11/08/17 11/08/17 06:20 06:20 WBC 12.0 H RBC 3.09 L Hgb 8.8 L Hct 26.1 L MCV 84.4 MCH 28.4 MCHC 33.7 RDW 16.9 H Plt Count 499 H MPV 7.0 L Sodium 139 Potassium 4.4 Chloride 104 Carbon Dioxide 23 Anion Gap 12 BUN 123 H* Creatinine 3.8 H Creat Clearance w eGFR 12.12 Random Glucose 92 Calcium 8.6 Active Medications Generic Name Dose Route Start Last Admin Trade Name Freq PRN Reason Stop Dose Admin Acetaminophen 650 mg 11/02/17 21:00 11/08/17 09:24 Tylenol - PO Not Given Q6H JACKY Acetaminophen 325 mg 11/04/17 11:22 11/08/17 03:07 Tylenol - PO 325 mg Q6H PRN Administration PAIN LEVEL 6-10 Albuterol/Ipratropium 1 amp 11/03/17 05:39 11/05/17 22:45 Duoneb - NEB 1 amp Q6H PRN Administration WHEEZING Albuterol/Ipratropium 1 amp 11/05/17 08:00 11/08/17 11:59 Duoneb - NEB 1 amp RQID JACKY Administration Heparin Sodium (Porcine) 5,000 unit 11/07/17 22:00 11/08/17 07:07 Heparin - SQ 5,000 unit TID JACKY Administration Ceftriaxone Sodium 2 gm/ 50 mls @ 100 mls/hr 11/03/17 10:00 11/08/17 09:23 Dextrose IVPB 100 mls/hr DAILY JACKY Administration Protocol Sodium Chloride 1,000 mls @ 42 mls/hr 11/07/17 10:30 11/07/17 18:20 1/2 Normal Saline IV 42 mls/hr ASDIR JACKY Administration Melatonin 10 mg 11/02/17 22:00 11/07/17 22:01 Melatonin PO 10 mg HS JACKY Administration Methocarbamol 500 mg 11/03/17 05:22 11/04/17 10:14 Robaxin - PO 500 mg TID PRN Administration PAIN Miscellaneous 1 each 11/08/17 22:00 Lidoderm Patch Removal MC 11/08/17 22:01 ONCE ONE Oxycodone HCl 5 mg 11/07/17 12:57 11/08/17 03:07 Roxicodone - PO 5 mg Q6H PRN Administration PAIN LEVEL 6-10 Pantoprazole Sodium 40 mg 11/04/17 11:30 11/08/17 09:23 Protonix - PO 40 mg DAILY JACKY Administration ASSESSMENT/PLAN: 62 year old female with a significant PMH of asthma, anemia, chronic kidney disease,chronic back pain, presents for sepsis 2/2 to pneumonia. #sepsis 2/2 to pneumonia - ceftriaxone/azithromycin, finished course day 6 for community acquired pneumonia, symptomatically improved - CXR showed RLL infiltrates, - CXR 11/05- ateletasis R base, congestion improved - WBC: 12 - abd US: gallbladder not identified, liver no masses, pancreas normal in size - nares + MRSA, BC no growth - f/u ekg - short course steroids, prednisone 10 mg (Day 5, final dose), protonix 40 mg po #LUCIEN on CKD - BUN: 123, Cr; 3.8 - 1/2 NS @ 42 - consulted Dr. Coe - Renal US: no hydronephrosis, chronic bilateral renal disease - PT will need outpatient treatment for CKD #anemia, thrombocytopenia - consulted Dr. Dash - f/u bone survery - f/u SPEP, Immunoglobulin, immunofixation, serum and urine kappa and fito, - f/u bone survey scan - possible Multiple Myeloma - Hgb: 8.8 baseline ~10 #acute CHF exacerbation - BNP: 3271 - 40 mg IV push lasix one time dose - echo: LEVF: 65 %, normal size and function #chronic back pain - acetaminophen as needed - Oxycodone 5 mg PO Q6H prn - Lidoderm patch #Anxiety -Xanax .5 mg Q8H prn #HTN - monitor BP Dispo: f/u Dr. Dash, Visit type - Emergency Visit Emergency Visit: No - New Patient This patient is new to me today: No - Critical Care Critical Care patient: No
--- NOTE | 2017-11-08 15:31 | CONSULT ---
Consult Consult Specialty:: Hematology- Oncology Referred by:: Dr. 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 SPECIALIST: Yes: Peripheral Neuropathy Cardio/Vascular: Yes: HTN, Hyperlipdemia Pulmonary: Yes: COPD Gastrointestinal: Yes: Gastritis Renal/: Yes: Renal Inusuff ...LMP: 07/25/12 ...: No ...: 3 Psych: Yes: Anxiety, Depression Musculoskeletal: Yes: Chronic low back pain - Past Surgical History Past Surgical History: Yes: Joint Replacement (hip replacement) - Alcohol/Substance Use Hx Alcohol Use: No History of Substance Use: reports: Marijuana - Smoking History Smoking history: Current every day smoker Have you smoked in the past 12 months: Yes Aproximately how many cigarettes per day: 8 (began ssmoking as teenager) If you are a former smoker, when did you quit?: refused booklet 07/21/14 - Social History Usual Living Arrangement: With Child ADL: Independent Occupation: not working, SSI History of Recent Travel: No Home Medications - Allergies Allergies/Adverse Reactions: Allergies Allergy/AdvReac Type Severity Reaction Status Date / Time levofloxacin [From Levaquin] Allergy Mild Itching Verified 11/02/17 16:54 - Home Medications Home Medications: Ambulatory Orders Methocarbamol [Robaxin -] 500 mg PO TID PRN 11/02/17 Amlodipine Besylate 10 mg PO DAILY 11/04/17 Atorvastatin Ca [Lipitor] 10 mg PO DAILY 11/04/17 Cyproheptadine [Periactin -] 8 mg PO DAILY 11/04/17 Donepezil HCl 5 mg PO DAILY 11/04/17 Gabapentin 600 mg PO Q8H 11/04/17 Hydrochlorothiazide 12.5 mg PO DAILY 11/04/17 Omeprazole 40 mg PO DAILY 11/04/17 Paroxetine HCl 20 mg PO DAILY 11/04/17 Quetiapine Fumarate [Seroquel -] 25 mg PO DAILY 11/04/17 Tizanidine HCl 4 mg PO DAILY 11/04/17 Family Disease History - Family Disease History Family Disease History: Other: Father (alive), Mother (alivee), Sister (alive), Son (23 yo old - alive - healthy) Other Family History: maternal grandmother- cancer ?type Review of Systems - Review of Systems Constitutional: reports: Fever, Malaise Eyes: denies: Blurred Vision, Double Vision, Recent Change in Vision HENT: reports: Difficult Swallowing. denies: Epistaxis, Hearing Loss Neck: denies: Stiffness, Tenderness Cardiovascular: reports: Chest Pain, Palpitations, Shortness of Breath Respiratory: reports: SOB, SOB on Exertion Gastrointestinal: reports: Other (constipation states had colonoscopy in distant past) Genitourinary: reports: Other (nocturia states PAP in past unremarkable). denies: Dysuria, Frequency Breasts: reports: Other (states mammography in past- unremarkable) Neurological: reports: No Symptoms Endocrine: reports: No Symptoms Hematology/Lymphatic: reports: No Symptoms Psychiatric: reports: No Symptoms Physical Exam Vital Signs: Vital Signs Temperature 97.3 F L 11/08/17 14:38 Pulse Rate 92 H 11/08/17 14:38 Respiratory Rate 20 11/08/17 14:38 Blood Pressure 140/85 11/08/17 14:38 O2 Sat by Pulse Oximetry (%) 96 11/07/17 09:00 Constitutional: Yes: Moderate Distress Eyes: Yes: PERRL. No: Ptosis, Sclera Icterus HENT: Yes: Atraumatic, Normocephalic. No: Pharyngeal Erythema, Thrush, Tonsillar Exudate Neck: Yes: Supple, Trachea Midline. No: Lymphadenopathy, Tenderness, Thyromegaly Cardiovascular: Yes: Regular Rate and Rhythm Respiratory: Yes: Rhonchi Gastrointestinal: Yes: Normal Bowel Sounds, Soft. No: Hepatomegaly, Splenomegaly Renal/: No: CVA Tenderness - Left, CVA Tenderness - Right Breast(s): Yes: WNL, Left, Right Musculoskeletal: Yes: Back Pain Extremities: No: Calf Tenderness, Deformity Edema: No Integumentary: No: Bruising, Jaundice Neurological: Yes: WNL ...Motor Strength: WNL Psychiatric: Yes: WNL Labs: CBC, BMP 11/08/17 06:20 11/08/17 06:20 Imaging - Results Chest X-ray: Report Reviewed, Image Reviewed Problem List - Problems (1) Acute on chronic renal failure Assessment/Plan: ? worsened with recent infection, sepsis, and dehydration followed by renal Code(s): N17.9 - ACUTE KIDNEY FAILURE, UNSPECIFIED; N18.9 - CHRONIC KIDNEY DISEASE, UNSPECIFIED (2) Anemia Code(s): D64.9 - ANEMIA, UNSPECIFIED (3) Back pain Assessment/Plan: For skeletal survey-- r/o compression Code(s): M54.9 - DORSALGIA, UNSPECIFIED Qualifiers: Qualified Code(s): M54.5 - Low back pain; G89.29 - Other chronic pain (4) CKD (chronic kidney disease) stage 4, GFR 15-29 ml/min Code(s): N18.4 - CHRONIC KIDNEY DISEASE, STAGE 4 (SEVERE) (5) Pneumonia Code(s): J18.9 - PNEUMONIA, UNSPECIFIED ORGANISM Qualifiers: Qualified Code(s): J18.9 - Pneumonia, unspecified organism Assessment/Plan Reverse A/G ratio, back pain, anemia raises concern for dysproteinemia For protein studies . Leucocytosis, thrombocytosis left shift- Likely reactive. R/O underlying MPD Plan BCR-ABL by PCR AURELIA-2
--- NOTE | 2017-11-08 15:50 | PN ---
Progress Note, Physician History of Present Illness: Pt seen and examined at bedside. She denies shortness of breath. She is awake and alert. - Current Medication List Current Medications: Active Medications Acetaminophen (Tylenol -) 650 mg PO Q6H [facility] Last Admin: 11/08/17 15:05 Dose: Not Given Acetaminophen (Tylenol -) 325 mg PO Q6H PRN PRN Reason: PAIN LEVEL 6-10 Last Admin: 11/08/17 15:36 Dose: 325 mg Albuterol/Ipratropium (Duoneb -) 1 amp NEB Q6H PRN PRN Reason: WHEEZING Last Admin: 11/05/17 22:45 Dose: 1 amp Albuterol/Ipratropium (Duoneb -) 1 amp NEB RQID [facility] Last Admin: 11/08/17 11:59 Dose: 1 amp Heparin Sodium (Porcine) (Heparin -) 5,000 unit SQ TID [facility] Last Admin: 11/08/17 15:34 Dose: 5,000 unit Sodium Chloride (1/2 Normal Saline) 1,000 mls @ 42 mls/hr IV ASDIR [facility] Last Admin: 11/08/17 14:47 Dose: Not Given Melatonin (Melatonin) 10 mg PO HS [facility] Last Admin: 11/07/17 22:01 Dose: 10 mg Methocarbamol (Robaxin -) 500 mg PO TID PRN PRN Reason: PAIN Last Admin: 11/04/17 10:14 Dose: 500 mg Miscellaneous (Lidoderm Patch Removal) 1 each MC ONCE ONE Stop: 11/08/17 22:01 Oxycodone HCl (Roxicodone -) 5 mg PO Q6H PRN PRN Reason: PAIN LEVEL 6-10 Last Admin: 11/08/17 15:35 Dose: 5 mg Pantoprazole Sodium (Protonix -) 40 mg PO DAILY [facility] Last Admin: 11/08/17 09:23 Dose: 40 mg - Objective Vital Signs: Vital Signs Temperature 97.3 F L 11/08/17 14:38 Pulse Rate 92 H 11/08/17 14:38 Respiratory Rate 20 11/08/17 14:38 Blood Pressure 140/85 11/08/17 14:38 O2 Sat by Pulse Oximetry (%) 96 11/07/17 09:00 Constitutional: Yes: Calm Eyes: Yes: Conjunctiva Clear HENT: Yes: Atraumatic Neck: Yes: Supple Cardiovascular: Yes: S1, S2 Respiratory: Yes: CTA Bilaterally Gastrointestinal: Yes: Normal Bowel Sounds, Soft Genitourinary: Yes: WNL Musculoskeletal: Yes: WNL Edema: No Neurological: Yes: Oriented Psychiatric: Yes: Oriented Labs: CBC, BMP 11/08/17 06:20 11/08/17 06:20 INR, PTT INR 1.24 (0.82-1.09) H 11/02/17 18:40 Assessment/Plan Current Medications Generic Name Dose Route Start Last Admin Trade Name Freq PRN Reason Stop Dose Admin Acetaminophen 650 mg 11/02/17 21:00 11/08/17 15:05 Tylenol - PO Not Given Q6H JACKY Acetaminophen 325 mg 11/04/17 11:22 11/08/17 15:36 Tylenol - PO 325 mg Q6H PRN Administration PAIN LEVEL 6-10 Albuterol/Ipratropium 1 amp 11/03/17 05:39 11/05/17 22:45 Duoneb - NEB 1 amp Q6H PRN Administration WHEEZING Albuterol/Ipratropium 1 amp 11/05/17 08:00 11/08/17 11:59 Duoneb - NEB 1 amp RQID JACKY Administration Heparin Sodium (Porcine) 5,000 unit 11/07/17 22:00 11/08/17 15:34 Heparin - SQ 5,000 unit TID JACKY Administration Sodium Chloride 1,000 mls @ 42 mls/hr 11/07/17 10:30 11/08/17 14:47 1/2 Normal Saline IV Not Given ASDIR JACKY Melatonin 10 mg 11/02/17 22:00 11/07/17 22:01 Melatonin PO 10 mg HS JACKY Administration Methocarbamol 500 mg 11/03/17 05:22 11/04/17 10:14 Robaxin - PO 500 mg TID PRN Administration PAIN Miscellaneous 1 each 11/08/17 22:00 Lidoderm Patch Removal MC 11/08/17 22:01 ONCE ONE Oxycodone HCl 5 mg 11/07/17 12:57 11/08/17 15:35 Roxicodone - PO 5 mg Q6H PRN Administration PAIN LEVEL 6-10 Pantoprazole Sodium 40 mg 11/04/17 11:30 11/08/17 09:23 Protonix - PO 40 mg DAILY JACKY Administration Laboratory Tests 03/14/11 03/14/11 10/07/12 08:00 08:00 06:50 Serum LEISA Interpret Rheumatoid Factor < 10.0 Cold Agglutinins Negative 1:4 DARÍO Screen c-ANCA Proteinase 3 (PR3) p-ANCA Atypical p-ANCA Myeloperoxidase Ab Complement C3 144 Complement C4 53 H Free [place] LC, Quant Free Lambda LC, Quant Free [place]/Lambda Ratio 02/11/13 06/06/14 06/06/14 06:35 07:15 07:15 Serum LEISA Interpret Rheumatoid Factor Cold Agglutinins DARÍO Screen Negative c-ANCA <1:20 Proteinase 3 (PR3) <3.5 p-ANCA <1:20 Atypical p-ANCA <1:20 Myeloperoxidase Ab <9.0 Complement C3 Complement C4 Free [place] LC, Quant Free Lambda LC, Quant Free [place]/Lambda Ratio 11/08/17 15:15 Serum LEISA Interpret Rheumatoid Factor Cold Agglutinins DARÍO Screen c-ANCA Proteinase 3 (PR3) p-ANCA Atypical p-ANCA Myeloperoxidase Ab Complement C3 Complement C4 Free [place] LC, Quant Pending Free Lambda LC, Quant Pending Free [place]/Lambda Ratio Pending cardio s1s2 pulm wheeze GI soft ext neg edema neuro awake and alert skin neg rash circ pos pulses back pain Impression 1. CKD with acute component 2. COPD 3. chronic back pain on opioids 4. anemia 5. anxiety 6. PNA 7. chf diastolic Plan - follow spep - renal workup in progress - check light chains - oncology eval - cont gentle hydration - repeat labs in am
[2017-11-08] MEDS: MELATONIN 5 MG TABLETS PO SCH (21:31)
[2017-11-08] MEDS ORDERED: LIDOCAINE PATCH REMOVAL MC ONE (22:00)
[2017-11-09] MEDS: ACETAMINOPHEN 325 MG TABLET (FP) PO SCH ×4 (04:02→20:54)
[2017-11-09] MEDS: HEPARIN NA (PORCINE) 5,000 UNITS/ML 1ML VIAL SQ SCH ×3 (06:10→21:02)
[2017-11-09] MEDS: ALBUTEROL SO4 2.5/IPRATROPIUM 0.5 INH SOL 3 ML VIAL.NEB. NEB SCH ×4 (07:29→20:19)
--- NOTE | 2017-11-09 08:48 | PN ---
Progress Note (short form) - Note Progress Note: No new complains. Vital Signs Temperature 97.9 F 11/09/17 06:51 Pulse Rate 87 11/09/17 06:51 Respiratory Rate 20 11/09/17 06:51 Blood Pressure 154/88 11/09/17 06:51 O2 Sat by Pulse Oximetry (%) 98 11/08/17 21:00 GENERAL: The patient is awake, alert, and fully oriented, tenderness to palpation diffusely EYES: PERRL, extraocular movements intact ENT: moist mucous membranes. LUNGS: mild expiratory wheezes HEART: Regular rate and rhythm, S1, S2 ABDOMEN: Soft, nontender, nondistended, normoactive bowel sounds EXTREMITIES: 2+ pulses, warm, well-perfused, no edema. SKIN: Warm, dry, normal turgor, no rashes or lesions noted CBCD WBC 12.0 K/mm3 (4.0-10.0) H 11/08/17 06:20 RBC 3.09 M/mm3 (3.60-5.2) L 11/08/17 06:20 Hgb 8.8 GM/dL (10.7-15.3) L 11/08/17 06:20 Hct 26.1 % (32.4-45.2) L 11/08/17 06:20 MCV 84.4 fl (80-96) 11/08/17 06:20 MCHC 33.7 g/dl (32.0-36.0) 11/08/17 06:20 RDW 16.9 % (11.6-15.6) H 11/08/17 06:20 Plt Count 499 K/MM3 (134-434) H 11/08/17 06:20 MPV 7.0 fl (7.5-11.1) L 11/08/17 06:20 CMP Sodium 139 mmol/L (136-145) 11/08/17 06:20 Potassium 4.4 mmol/L (3.5-5.1) 11/08/17 06:20 Chloride 104 mmol/L (98-107) 11/08/17 06:20 Carbon Dioxide 23 mmol/L (21-32) 11/08/17 06:20 Anion Gap 12 (8-16) 11/08/17 06:20 BUN 123 mg/dL (7-18) H* 11/08/17 06:20 Creatinine 3.8 mg/dL (0.55-1.02) H 11/08/17 06:20 Creat Clearance w eGFR 12.12 (>60) 11/08/17 06:20 Random Glucose 92 mg/dL (74-106) 11/08/17 06:20 Calcium 8.6 mg/dL (8.5-10.1) 11/08/17 06:20 Total Bilirubin 0.3 mg/dL (0.2-1.0) 11/05/17 07:30 AST 12 U/L (15-37) L 11/05/17 07:30 ALT 20 U/L (12-78) 11/05/17 07:30 Alkaline Phosphatase 130 U/L (45-117) H D 11/05/17 07:30 Total Protein 6.1 g/dl (6.4-8.2) L 11/05/17 07:30 Albumin 2.4 g/dl (3.4-5.0) L 11/05/17 07:30 CARDIAC ENZYMES Creatine Kinase 27 IU/L (26-192) 11/04/17 08:15 Troponin I < 0.02 ng/ml (0.00-0.05) 11/04/17 08:15 Current Medications Generic Name Dose Route Start Last Admin Trade Name Freprisca PRN Reason Stop Dose Admin Acetaminophen 650 mg 11/02/17 21:00 11/09/17 04:02 Tylenol - PO Not Given Q6H JACKY Acetaminophen 325 mg 11/04/17 11:22 11/08/17 15:36 Tylenol - PO 325 mg Q6H PRN Administration PAIN LEVEL 6-10 Albuterol/Ipratropium 1 amp 11/03/17 05:39 11/05/17 22:45 Duoneb - NEB 1 amp Q6H PRN Administration WHEEZING Albuterol/Ipratropium 1 amp 11/05/17 08:00 11/09/17 07:29 Duoneb - NEB 1 amp RQID JACKY Administration Heparin Sodium (Porcine) 5,000 unit 11/07/17 22:00 11/09/17 06:10 Heparin - SQ 5,000 unit TID JACKY Administration Sodium Chloride 1,000 mls @ 42 mls/hr 11/07/17 10:30 11/08/17 14:47 1/2 Normal Saline IV Not Given ASDIR JACKY Melatonin 10 mg 11/02/17 22:00 11/08/17 21:31 Melatonin PO 10 mg HS JACKY Administration Methocarbamol 500 mg 11/03/17 05:22 11/04/17 10:14 Robaxin - PO 500 mg TID PRN Administration PAIN Oxycodone HCl 5 mg 11/07/17 12:57 11/08/17 21:30 Roxicodone - PO 5 mg Q6H PRN Administration PAIN LEVEL 6-10 Pantoprazole Sodium 40 mg 11/04/17 11:30 11/08/17 09:23 Protonix - PO 40 mg DAILY JACKY Administration Home Medications Medication Instructions Recorded Methocarbamol [Robaxin -] 500 mg PO TID PRN 11/02/17 Amlodipine Besylate 10 mg PO DAILY 11/04/17 Atorvastatin Ca [Lipitor] 10 mg PO DAILY 11/04/17 Cyproheptadine [Periactin -] 8 mg PO DAILY 11/04/17 Donepezil HCl 5 mg PO DAILY 11/04/17 Gabapentin 600 mg PO Q8H 11/04/17 Hydrochlorothiazide 12.5 mg PO DAILY 11/04/17 Omeprazole 40 mg PO DAILY 11/04/17 Paroxetine HCl 20 mg PO DAILY 11/04/17 Quetiapine Fumarate [Seroquel -] 25 mg PO DAILY 11/04/17 Tizanidine HCl 4 mg PO DAILY 11/04/17 Microbiology 11/02/17 20:14 Blood - Peripheral Venous Blood Culture - Preliminary NO GROWTH OBTAINED AFTER 96 HOURS, INCUBATION TO CONTINUE FOR 1 DAYS. 11/02/17 20:14 Blood - Peripheral Venous Blood Culture - Preliminary NO GROWTH OBTAINED AFTER 96 HOURS, INCUBATION TO CONTINUE FOR 1 DAYS. 11/03/17 11:00 Nares - Mrsa Screen - Right MRSA Screen - Final Mr S Aureus 11/03/17 11:00 Nares - Mrsa Screen - Left MRSA Screen - Final Mr S Aureus 11/03/17 07:26 Urine For Antigen Detection Legionella Antigen - Final 11/03/17 07:26 Urine For Antigen Detection Streptococcus pneumoniae Antigen (M - Final Renal ultrasound Clinical information given: evaluate lucien on ckd There is no hydronephrosis. As on a previous ultrasound study of 01/13/2016 the renal cortices bilaterally demonstrate increased echogenicity consistent with medical nephropathy. There is associated partial obscuration of the corticomedullary junction bilaterally. The right kidney small in size measuring 8 cm in length. The left kidney measures 9.4 cm. No obvious mass lesion or calculus is identified within the limitations of sonography. Incidental note is made of a 1.3 cm right renal cortical cyst. Impression: No obvious interval change is noted in comparison to a previous ultrasound study of 01/13/2016. There is no hydronephrosis. Findings the noted consistent with chronic bilateral medical renal disease. Reported By: Jean Paul Dodd MD 11/05/17 2012. ASSESSMENT AND PLAN: Patient is a 62 y/o lady with PMHx HTN, HLD, hypothyroidism, stage 4 CKD, iron- deficiency anemia, depression, anxiety, chronic back pain and peripheral neuropathy, presented with cough, and SOB and was found to have sepsis due to PNA. # Low back pain: MM w/u in process, Lidoderm patch, ordered, Oncology consult appreciated. Ct of low back is ordered Skeletal survey. # s/p Sepsis : due to CAP. s/p IV rocephin completed the treatment. cultures as above. Elevated WBC due to steroids, completed the steroid. # s/p COPD exacerbation improved completed steroids and IV antibiotic. # LUCIEN on CKD due to having BL medical renal disease : given IVF which made renal function worse (4.9--> 5.1-->4.2-->3.9-->3.8 today improving) . will continue IVF . follow protein to creatine ratio, renal ultrasound as above, nephro on the case, will repeat bun/cre in am. DVT Px: Heparin MM w/u is pending Visit type - Emergency Visit Emergency Visit: Yes ED Registration Date: 11/02/17 Care time: The patient presented to the Emergency Department on the above date and was hospitalized for further evaluation of their emergent condition. - New Patient This patient is new to me today: No - Critical Care Critical Care patient: No - Discharge Referral Referred to [facility] Med P.C.: No
[2017-11-09] MEDS: SODIUM CHLORIDE 0.45% 1,000 ML IV SCH (09:30)
[2017-11-09] MEDS: ACETAMINOPHEN 325 MG TABLET (FP) PO PRN ×2 (09:47→20:56)
[2017-11-09] MEDS: oxyCODONE HCL 5 MG TABLET PO PRN ×2 (09:47→20:56)
--- NOTE | 2017-11-09 09:47 | PN ---
Progress Note (short form) - Note Progress Note: RENAL Says she does not feel well, cant specify Last Vital Signs Temp Pulse Resp BP Pulse Ox 97.9 F 87 20 154/88 98 11/09/17 06:51 11/09/17 06:51 11/09/17 06:51 11/09/17 06:51 11/08/17 21:00 lying down comfortably lungs have some rhonchi cvs s1s2 rr abd soft ext no edema neuro a+ox3 CBC, BMP 11/08/17 06:20 11/08/17 06:20 Current Medications Generic Name Dose Route Start Last Admin Trade Name Freq PRN Reason Stop Dose Admin Acetaminophen 650 mg 11/02/17 21:00 11/09/17 04:02 Tylenol - PO Not Given Q6H JACKY Acetaminophen 325 mg 11/04/17 11:22 11/08/17 15:36 Tylenol - PO 325 mg Q6H PRN Administration PAIN LEVEL 6-10 Albuterol/Ipratropium 1 amp 11/03/17 05:39 11/05/17 22:45 Duoneb - NEB 1 amp Q6H PRN Administration WHEEZING Albuterol/Ipratropium 1 amp 11/05/17 08:00 11/09/17 07:29 Duoneb - NEB 1 amp RQID JACKY Administration Heparin Sodium (Porcine) 5,000 unit 11/07/17 22:00 11/09/17 06:10 Heparin - SQ 5,000 unit TID JACKY Administration Sodium Chloride 1,000 mls @ 42 mls/hr 11/07/17 10:30 11/09/17 09:30 1/2 Normal Saline IV Not Given ASDIR JACKY Melatonin 10 mg 11/02/17 22:00 11/08/17 21:31 Melatonin PO 10 mg HS JACKY Administration Methocarbamol 500 mg 11/03/17 05:22 11/04/17 10:14 Robaxin - PO 500 mg TID PRN Administration PAIN Oxycodone HCl 5 mg 11/07/17 12:57 11/08/17 21:30 Roxicodone - PO 5 mg Q6H PRN Administration PAIN LEVEL 6-10 Pantoprazole Sodium 40 mg 11/04/17 11:30 11/08/17 09:23 Protonix - PO 40 mg DAILY JACKY Administration Impression 1. CKD with acute component- seems to be improving- Had high PC out of proportion to urine protein. Therefore paraproteinemia is a possibility 2. COPD 3. chronic back pain on opioids 4. anemia 5. anxiety 6. PNA 7. chf diastolic Plan - follow spep - renal workup in progress - check light chains - oncology eval - cont cautious hydration - repeat labs in am MV
[2017-11-09] MEDS: PANTOPRAZOLE 40 MG TABLET (FP) PO SCH (09:48)
[2017-11-09 10:07] LABS: HEMATOCRIT 25.2 % (32.4-45.2); HEMOGLOBIN 8.5 GM/dL (10.7-15.3); MCH 28.6 pg (25.7-33.7); MCHC 33.8 g/dl (32.0-36.0); MEAN CELL VOLUME 84.6 fl (80-96); MEAN PLT VOLUME 7.1 fl (7.5-11.1); PLATELET COUNT 482 K/MM3 (134-434); RBC 2.98 M/mm3 (3.60-5.2); RDW 16.6 % (11.6-15.6); WHITE BLOOD COUNT 8.7 K/mm3 (4.0-10.0)
[2017-11-09 10:36] LABS: CALCIUM 8.7 mg/dL (8.5-10.1); CHLORIDE 106 mmol/L (98-107); POTASSIUM 4.3 mmol/L (3.5-5.1); SODIUM 140 mmol/L (136-145)
[2017-11-09 10:39] LABS: ANION GAP 11 (8-16); CO2 23 mmol/L (21-32); CREATININE 3.5 mg/dL (0.55-1.02); GLUCOSE,RANDOM 85 mg/dL (74-106)
[2017-11-09 11:53] LABS: BLOOD UREA NITROGEN 118 mg/dL (7-18)
[2017-11-09] MEDS: MELATONIN 5 MG TABLETS PO SCH (21:02)
[2017-11-10] MEDS: oxyCODONE HCL 5 MG TABLET PO PRN ×4 (02:47→23:41)
[2017-11-10] MEDS: ACETAMINOPHEN 325 MG TABLET (FP) PO PRN ×4 (02:47→23:41)
[2017-11-10] MEDS: ACETAMINOPHEN 325 MG TABLET (FP) PO SCH ×4 (02:48→21:03)
[2017-11-10] MEDS: ALBUTEROL SO4 2.5/IPRATROPIUM 0.5 INH SOL 3 ML VIAL.NEB. NEB PRN ×2 (04:00→07:40)
[2017-11-10] MEDS: HEPARIN NA (PORCINE) 5,000 UNITS/ML 1ML VIAL SQ SCH ×3 (06:53→21:03)
[2017-11-10] MEDS ORDERED: PT OWN MED DRAWER 7, Y5N ONE (09:54)
[2017-11-10] MEDS: PANTOPRAZOLE 40 MG TABLET (FP) PO SCH (10:00)
[2017-11-10] MEDS: SODIUM CHLORIDE 0.45% 1,000 ML IV SCH (10:01)
--- NOTE | 2017-11-10 11:19 | PN ---
<Forrest Delacruz - Last Filed: 11/10/17 11:22> Physical Exam: SUBJECTIVE: Patient seen and examined at bedside. No acute changes from yesterday. Mild cough continues. OBJECTIVE: Vital Signs Period Temp Pulse Resp BP Sys/Bills Pulse Ox Last 24 Hr 97.3 F-98.8 F 71-100 18-20 131-152/63-95 97 GENERAL: The patient is awake, alert, and fully oriented EYES: PERRL, extraocular movements intact ENT: moist mucous membranes. LUNGS: mild expiratory wheezes improved compared to prior evaluation. HEART: Regular rate and rhythm, S1, S2 ABDOMEN: Soft, nontender, nondistended, normoactive bowel sounds EXTREMITIES: 2+ pulses, warm, well-perfused, no edema. SKIN: Warm, dry, normal turgor, no rashes or lesions noted Laboratory Results - last 24 hr 11/09/17 09:25 Sodium 140 Potassium 4.3 Chloride 106 Carbon Dioxide 23 Anion Gap 11 BUN 118 H* Creatinine 3.5 H Creat Clearance w eGFR 13.32 Random Glucose 85 Calcium 8.7 Active Medications Generic Name Dose Route Start Last Admin Trade Name Freq PRN Reason Stop Dose Admin Acetaminophen 650 mg 11/02/17 21:00 11/10/17 10:00 Tylenol - PO Not Given Q6H JACKY Acetaminophen 325 mg 11/04/17 11:22 11/10/17 10:02 Tylenol - PO 325 mg Q6H PRN Administration PAIN LEVEL 6-10 Albuterol/Ipratropium 1 amp 11/03/17 05:39 11/10/17 07:40 Duoneb - NEB 1 amp Q6H PRN Administration WHEEZING Heparin Sodium (Porcine) 5,000 unit 11/07/17 22:00 11/10/17 06:53 Heparin - SQ 5,000 unit TID JACKY Administration Sodium Chloride 1,000 mls @ 42 mls/hr 11/07/17 10:30 11/10/17 10:01 1/2 Normal Saline IV 42 mls/hr ASDIR JACKY Administration Melatonin 10 mg 11/02/17 22:00 11/09/17 21:02 Melatonin PO 10 mg HS JACKY Administration Methocarbamol 500 mg 11/03/17 05:22 11/04/17 10:14 Robaxin - PO 500 mg TID PRN Administration PAIN Oxycodone HCl 5 mg 11/07/17 12:57 11/10/17 10:01 Roxicodone - PO 5 mg Q6H PRN Administration PAIN LEVEL 6-10 Pantoprazole Sodium 40 mg 11/04/17 11:30 11/10/17 10:00 Protonix - PO 40 mg DAILY JACKY Administration ASSESSMENT/PLAN: 62 year old female with a significant PMH of asthma, anemia, chronic kidney disease,chronic back pain, presents for sepsis 2/2 to pneumonia. #sepsis 2/2 to pneumonia - improving - finished abx, not currently on any new antibiotic regimen - abd US: gallbladder not identified, liver no masses, pancreas normal in size - nares + MRSA, BC no growth - continue protonix 40 mg po #LUCIEN on CKD - improving - continue 04/23 NS @ 42 - consulted Dr. Coe - Renal US: no hydronephrosis, chronic bilateral renal disease - PT will need outpatient treatment for CKD #anemia, thrombocytopenia - consulted Dr. Dash - f/u bone survey - f/u SPEP, Immunoglobulin, immunofixation, serum and urine kappa and fito, - f/u bone survey scan - possible Multiple Myeloma - will continue evaluation - Hgb: 8.8 baseline ~10 #acute CHF exacerbation - BNP: 3271 - improving - no need for standing lasix at this time - echo: LEVF: 65 %, normal size and function #chronic back pain - acetaminophen as needed - Oxycodone 5 mg PO Q6H prn - Lidoderm patch #Anxiety -Xanax .5 mg Q8H prn #HTN - monitor BP #Dispo: - continue to monitor on med surg - continue evaluation for multiple myeloma Visit type - Emergency Visit Emergency Visit: No - New Patient This patient is new to me today: No - Critical Care Critical Care patient: No <Donny Palm - Last Filed: 11/10/17 18:31> Physical Exam: Agree with the resident' s note. Will follow with the w/u. Vital Signs Temperature 97.7 F 11/10/17 16:20 Pulse Rate 90 11/10/17 16:20 Respiratory Rate 20 11/10/17 16:20 Blood Pressure 142/81 11/10/17 16:20 O2 Sat by Pulse Oximetry (%) 96 11/10/17 09:00 CBCD WBC 8.7 K/mm3 (4.0-10.0) 11/09/17 09:25 RBC 2.98 M/mm3 (3.60-5.2) L 11/09/17 09:25 Hgb 8.5 GM/dL (10.7-15.3) L 11/09/17 09:25 Hct 25.2 % (32.4-45.2) L 11/09/17 09:25 MCV 84.6 fl (80-96) 11/09/17 09:25 MCHC 33.8 g/dl (32.0-36.0) 11/09/17 09:25 RDW 16.6 % (11.6-15.6) H 11/09/17 09:25 Plt Count 482 K/MM3 (134-434) H 11/09/17 09:25 MPV 7.1 fl (7.5-11.1) L 11/09/17 09:25 CMP Sodium 140 mmol/L (136-145) 11/09/17 09:25 Potassium 4.3 mmol/L (3.5-5.1) 11/09/17 09:25 Chloride 106 mmol/L (98-107) 11/09/17 09:25 Carbon Dioxide 23 mmol/L (21-32) 11/09/17 09:25 Anion Gap 11 (8-16) 11/09/17 09:25 BUN 118 mg/dL (7-18) H* 11/09/17 09:25 Creatinine 3.5 mg/dL (0.55-1.02) H 11/09/17 09:25 Creat Clearance w eGFR 13.32 (>60) 11/09/17 09:25 Random Glucose 85 mg/dL (74-106) 11/09/17 09:25 Calcium 8.7 mg/dL (8.5-10.1) 11/09/17 09:25 Total Bilirubin 0.3 mg/dL (0.2-1.0) 11/05/17 07:30 AST 12 U/L (15-37) L 11/05/17 07:30 ALT 20 U/L (12-78) 11/05/17 07:30 Alkaline Phosphatase 130 U/L (45-117) H D 11/05/17 07:30 Total Protein 6.1 g/dl (6.4-8.2) L 11/05/17 07:30 Albumin 2.4 g/dl (3.4-5.0) L 11/05/17 07:30 CARDIAC ENZYMES Creatine Kinase 27 IU/L (26-192) 11/04/17 08:15 Troponin I < 0.02 ng/ml (0.00-0.05) 11/04/17 08:15 Current Medications Generic Name Dose Route Start Last Admin Trade Name Freq PRN Reason Stop Dose Admin Acetaminophen 650 mg 11/02/17 21:00 11/10/17 14:21 Tylenol - PO Not Given Q6H JACKY Acetaminophen 325 mg 11/04/17 11:22 11/10/17 17:35 Tylenol - PO 325 mg Q6H PRN Administration PAIN LEVEL 6-10 Albuterol/Ipratropium 1 amp 11/03/17 05:39 11/10/17 07:40 Duoneb - NEB 1 amp Q6H PRN Administration WHEEZING Heparin Sodium (Porcine) 5,000 unit 11/07/17 22:00 11/10/17 14:40 Heparin - SQ 5,000 unit TID JACKY Administration Sodium Chloride 1,000 mls @ 42 mls/hr 11/07/17 10:30 11/10/17 10:01 1/2 Normal Saline IV 42 mls/hr ASDIR JACKY Administration Melatonin 10 mg 11/02/17 22:00 11/09/17 21:02 Melatonin PO 10 mg HS JACKY Administration Methocarbamol 500 mg 11/03/17 05:22 11/04/17 10:14 Robaxin - PO 500 mg TID PRN Administration PAIN Oxycodone HCl 5 mg 11/07/17 12:57 11/10/17 17:33 Roxicodone - PO 5 mg Q6H PRN Administration PAIN LEVEL 6-10 Pantoprazole Sodium 40 mg 11/04/17 11:30 11/10/17 10:00 Protonix - PO 40 mg DAILY JACKY Administration Home Medications Medication Instructions Recorded Methocarbamol [Robaxin -] 500 mg PO TID PRN 11/02/17 Amlodipine Besylate 10 mg PO DAILY 11/04/17 Atorvastatin Ca [Lipitor] 10 mg PO DAILY 11/04/17 Cyproheptadine [Periactin -] 8 mg PO DAILY 11/04/17 Donepezil HCl 5 mg PO DAILY 11/04/17 Gabapentin 600 mg PO Q8H 11/04/17 Hydrochlorothiazide 12.5 mg PO DAILY 11/04/17 Omeprazole 40 mg PO DAILY 11/04/17 Paroxetine HCl 20 mg PO DAILY 11/04/17 Quetiapine Fumarate [Seroquel -] 25 mg PO DAILY 11/04/17 Tizanidine HCl 4 mg PO DAILY 11/04/17
--- NOTE | 2017-11-10 13:35 | PN ---
Progress Note (short form) - Note Progress Note: RENAL Says she feels better Last Vital Signs Temp Pulse Resp BP Pulse Ox 97.3 F L 98 H 20 152/95 97 11/10/17 06:41 11/10/17 06:41 11/10/17 06:41 11/10/17 06:41 11/09/17 22:00 lying down comfortably lungs have some rhonchi cvs s1s2 rr abd soft ext no edema neuro a+ox3 CBC, BMP 11/09/17 09:25 11/09/17 09:25 Current Medications Generic Name Dose Route Start Last Admin Trade Name Freq PRN Reason Stop Dose Admin Acetaminophen 650 mg 11/02/17 21:00 11/10/17 10:00 Tylenol - PO Not Given Q6H JACKY Acetaminophen 325 mg 11/04/17 11:22 11/10/17 10:02 Tylenol - PO 325 mg Q6H PRN Administration PAIN LEVEL 6-10 Albuterol/Ipratropium 1 amp 11/03/17 05:39 11/10/17 07:40 Duoneb - NEB 1 amp Q6H PRN Administration WHEEZING Heparin Sodium (Porcine) 5,000 unit 11/07/17 22:00 11/10/17 06:53 Heparin - SQ 5,000 unit TID JACKY Administration Sodium Chloride 1,000 mls @ 42 mls/hr 11/07/17 10:30 11/10/17 10:01 1/2 Normal Saline IV 42 mls/hr ASDIR JACKY Administration Melatonin 10 mg 11/02/17 22:00 11/09/17 21:02 Melatonin PO 10 mg HS JACKY Administration Methocarbamol 500 mg 11/03/17 05:22 11/04/17 10:14 Robaxin - PO 500 mg TID PRN Administration PAIN Oxycodone HCl 5 mg 11/07/17 12:57 11/10/17 10:01 Roxicodone - PO 5 mg Q6H PRN Administration PAIN LEVEL 6-10 Pantoprazole Sodium 40 mg 11/04/17 11:30 11/10/17 10:00 Protonix - PO 40 mg DAILY JACKY Administration Impression 1. CKD with acute component- improving- Had high PC out of proportion to urine protein. Therefore paraproteinemia is a possibility 2. COPD 3. chronic back pain on opioids 4. anemia 5. anxiety 6. PNA 7. chf diastolic Plan - follow spep - renal workup in progress - check light chains - oncology eval - cont cautious hydration - repeat labs in am MV
[2017-11-10] MEDS: MELATONIN 5 MG TABLETS PO SCH (21:02)
[2017-11-11 00:08] LABS: HBSAG SCREEN Negative (Negative); HEP B CORE AB, TOT Negative (Negative)
[2017-11-11 00:08] LABS: IGA IMMUNOGLOBULIN 392 mg/dL (87-352); IGG IMMUNOGLOBULIN 569 mg/dL (700-1600); IGM IMMUNOGLOBULIN 82 mg/dL (26-217)
[2017-11-11] MEDS: ALBUTEROL SO4 2.5/IPRATROPIUM 0.5 INH SOL 3 ML VIAL.NEB. NEB PRN ×4 (02:15→16:38)
[2017-11-11] MEDS: ACETAMINOPHEN 325 MG TABLET (FP) PO SCH ×3 (03:09→14:26)
[2017-11-11] MEDS: HEPARIN NA (PORCINE) 5,000 UNITS/ML 1ML VIAL SQ SCH ×3 (05:45→21:15)
--- NOTE | 2017-11-11 09:37 | PN ---
Progress Note, Physician History of Present Illness: no acute events overnight. patient is very anxious and wanting to leave the hospital. however, her breathing is better and her back pain seems to be a little bit improved. she denies any N/V/SOB/CP or problems urinating. Her BUN is still elevated at 118 but her Cr is improving and is down to 3.5 as of 11/09. Lumbar spine CT done on 11/08: no bony destructive changes were seen. - Current Medication List Current Medications: Active Medications Acetaminophen (Tylenol -) 650 mg PO Q6H [facility] Last Admin: 11/11/17 03:09 Dose: Not Given Acetaminophen (Tylenol -) 325 mg PO Q6H PRN PRN Reason: PAIN LEVEL 6-10 Last Admin: 11/10/17 23:41 Dose: 325 mg Albuterol/Ipratropium (Duoneb -) 1 amp NEB Q6H PRN PRN Reason: WHEEZING Last Admin: 11/11/17 02:15 Dose: 1 amp Heparin Sodium (Porcine) (Heparin -) 5,000 unit SQ TID [facility] Last Admin: 11/11/17 05:45 Dose: 5,000 unit Sodium Chloride (1/2 Normal Saline) 1,000 mls @ 42 mls/hr IV ASDIR [facility] Last Admin: 11/10/17 10:01 Dose: 42 mls/hr Melatonin (Melatonin) 10 mg PO HS [facility] Last Admin: 11/10/17 21:02 Dose: 10 mg Methocarbamol (Robaxin -) 500 mg PO TID PRN PRN Reason: PAIN Last Admin: 11/04/17 10:14 Dose: 500 mg Oxycodone HCl (Roxicodone -) 5 mg PO Q6H PRN PRN Reason: PAIN LEVEL 6-10 Last Admin: 11/10/17 23:41 Dose: 5 mg Pantoprazole Sodium (Protonix -) 40 mg PO DAILY [facility] Last Admin: 11/10/17 10:00 Dose: 40 mg - Objective Vital Signs: Vital Signs Temperature 98.1 F 11/11/17 09:31 Pulse Rate 85 11/11/17 09:31 Respiratory Rate 20 11/11/17 09:31 Blood Pressure 139/90 11/11/17 09:31 O2 Sat by Pulse Oximetry (%) 96 11/10/17 21:00 Constitutional: Yes: Anxious Cardiovascular: Yes: Regular Rate and Rhythm, S1, S2 Respiratory: Yes: CTA Bilaterally Gastrointestinal: Yes: Normal Bowel Sounds, Soft. No: Tenderness Musculoskeletal: Yes: Back Pain Edema: No (no LE edema) Labs: CBC, BMP 11/09/17 09:25 11/09/17 09:25 INR, PTT INR 1.24 (0.82-1.09) H 11/02/17 18:40 Problem List - Problems (1) Acute on chronic renal failure Code(s): N17.9 - ACUTE KIDNEY FAILURE, UNSPECIFIED; N18.9 - CHRONIC KIDNEY DISEASE, UNSPECIFIED (2) Pneumonia Code(s): J18.9 - PNEUMONIA, UNSPECIFIED ORGANISM Qualifiers: Pneumonia type: due to unspecified organism Laterality: right Lung location: unspecified part of lung Qualified Code(s): J18.9 - Pneumonia, unspecified organism (3) Back pain Code(s): M54.9 - DORSALGIA, UNSPECIFIED Qualifiers: Back pain location: low back pain Chronicity: chronic Back pain laterality: bilateral Sciatica presence: without sciatica Qualified Code(s) : M54.5 - Low back pain; G89.29 - Other chronic pain (4) Anemia Code(s): D64.9 - ANEMIA, UNSPECIFIED Qualifiers: Anemia type: unspecified cause Assessment/Plan patients Cr is improving and is now down to 3.5 -continue to monitor renal function -renal wokrup in progress -light chain studies and SPEP pending -continue fluids -Heme-Onc following
[2017-11-11 10:08] LABS: ANTIGLOMERULAR BASEMENT MEN.AB 2 units (0-20)
[2017-11-11] MEDS: PANTOPRAZOLE 40 MG TABLET (FP) PO SCH (11:18)
[2017-11-11] MEDS: oxyCODONE HCL 5 MG TABLET PO PRN ×2 (11:25→21:17)
[2017-11-11] MEDS: ACETAMINOPHEN 325 MG TABLET (FP) PO PRN (11:27)
[2017-11-11] MEDS: SODIUM CHLORIDE 0.45% 1,000 ML IV SCH ×2 (12:24→19:47)
[2017-11-11 12:44] LABS: ANION GAP 9 (8-16); CALCIUM 9.3 mg/dL (8.5-10.1); CHLORIDE 107 mmol/L (98-107); CO2 23 mmol/L (21-32); CREATININE 3.4 mg/dL (0.55-1.02); GLUCOSE,RANDOM 115 mg/dL (74-106); POTASSIUM 4.4 mmol/L (3.5-5.1); SODIUM 139 mmol/L (136-145)
[2017-11-11 12:46] LABS: BLOOD UREA NITROGEN 108 mg/dL (7-18)
--- NOTE | 2017-11-11 14:09 | PN ---
Physical Exam: SUBJECTIVE: 62 year old female with a significant PMH of asthma, anemia, chronic kidney disease,chronic back pain, presents for pneumonia. She complains of chronic back pain. She had no acute events overnight. OBJECTIVE: Vital Signs Period Temp Pulse Resp BP Sys/Bills Pulse Ox Last 24 Hr 97.6 F-98.7 F 78-90 18-20 128-145/75-90 96 GENERAL: The patient is awake, alert, and fully oriented, tenderness to palpation diffusely EYES: PERRL, extraocular movements intact ENT: moist mucous membranes. LUNGS: mild expiratory wheezes HEART: Regular rate and rhythm, S1, S2 ABDOMEN: Soft, nontender, nondistended, normoactive bowel sounds EXTREMITIES: 2+ pulses, warm, well-perfused, no edema. SKIN: Warm, dry, normal turgor, no rashes or lesions noted Laboratory Results - last 24 hr 11/08/17 11/09/17 11/11/17 15:15 09:25 11:55 Sodium 139 Potassium 4.4 Chloride 107 Carbon Dioxide 23 Anion Gap 9 BUN 108 H* Creatinine 3.4 H Creat Clearance w eGFR 13.78 Random Glucose 115 H Calcium 9.3 U Free [place] Light Ch Cancelled U Free Lambda Light Ch Cancelled U Free [place]/Lambda 24 Cancelled IgG 569 L IgA 392 H IgM 82 Glomerular Base Memb Ab 2 Hepatitis A Ab Total Negative Hep Bs Antigen Negative Hep Bs Antibody Non reactive Hep B Core Total Ab Negative HCV RNA PCR w/Genot Rflx Cancelled Active Medications Generic Name Dose Route Start Last Admin Trade Name Freq PRN Reason Stop Dose Admin Acetaminophen 650 mg 11/02/17 21:00 11/11/17 10:15 Tylenol - PO Not Given Q6H JACKY Acetaminophen 325 mg 11/04/17 11:22 11/11/17 11:27 Tylenol - PO 325 mg Q6H PRN Administration PAIN LEVEL 6-10 Albuterol/Ipratropium 1 amp 11/03/17 05:39 11/11/17 11:27 Duoneb - NEB 1 amp Q6H PRN Administration WHEEZING Heparin Sodium (Porcine) 5,000 unit 11/07/17 22:00 11/11/17 13:33 Heparin - SQ 5,000 unit TID JACKY Administration Sodium Chloride 1,000 mls @ 42 mls/hr 11/07/17 10:30 11/11/17 12:24 1/2 Normal Saline IV Not Given ASDIR JACKY Melatonin 10 mg 11/02/17 22:00 11/10/17 21:02 Melatonin PO 10 mg HS JACKY Administration Methocarbamol 500 mg 11/03/17 05:22 11/04/17 10:14 Robaxin - PO 500 mg TID PRN Administration PAIN Oxycodone HCl 5 mg 11/07/17 12:57 11/11/17 11:25 Roxicodone - PO 5 mg Q6H PRN Administration PAIN LEVEL 6-10 Pantoprazole Sodium 40 mg 11/04/17 11:30 11/11/17 11:18 Protonix - PO 40 mg DAILY JACKY Administration ASSESSMENT/PLAN: 62 year old female with a significant PMH of asthma, anemia, chronic kidney disease,chronic back pain, presents for sepsis 2/2 to pneumonia. #sepsis 2/2 to pneumonia - improving - finished abx, not currently on any new antibiotic regimen - abd US: gallbladder not identified, liver no masses, pancreas normal in size - nares + MRSA, BC no growth - continue protonix 40 mg po #LUCIEN on CKD - improving - continue 04/23 NS @ 42 - consulted Dr. Coe - Renal US: no hydronephrosis, chronic bilateral renal disease - PT will need outpatient treatment for CKD #chronic back pain - Consult neurosurgery, Dr. Olea - Lumbar CT spine: L1 vertebroplasty, L4-L5 bulging disc, central spinal stenosis - acetaminophen as needed - Oxycodone 5 mg PO Q6H prn - Lidoderm patch #anemia, thrombocytopenia - consulted Dr. Dash - Metastatic survey: no acute pathology, degenerative changes throughout - f/u SPEP, Immunoglobulin, immunofixation, serum and urine kappa and fito - IgA elevated :392 - f/u bone survey scan - possible Multiple Myeloma - will continue evaluation - Hgb: 8.8 baseline ~10 #acute CHF exacerbation - BNP: 3271 - improving - no need for standing lasix at this time - echo: LEVF: 65 %, normal size and function #Anxiety -Xanax .5 mg Q8H prn #HTN - monitor BP #Dispo: - continue to monitor on med surg - continue evaluation for multiple myeloma - f/u neurosurgery consult Visit type - Emergency Visit Emergency Visit: No - New Patient This patient is new to me today: No - Critical Care Critical Care patient: No
--- NOTE | 2017-11-11 14:18 | PN ---
Teaching Attending Note Name of Resident: Sangita Rae (Nephrology) ATTENDING PHYSICIAN STATEMENT I saw and evaluated the patient. I reviewed the resident's note and discussed the case with the resident. I agree with the resident's findings and plan as documented. Renal Follow Up Pt seen and examined at bedside. SHe denies shortness of breath. Current Medications Generic Name Dose Route Start Last Admin Trade Name Freq PRN Reason Stop Dose Admin Acetaminophen 650 mg 11/02/17 21:00 11/11/17 10:15 Tylenol - PO Not Given Q6H JACKY Acetaminophen 325 mg 11/04/17 11:22 11/11/17 11:27 Tylenol - PO 325 mg Q6H PRN Administration PAIN LEVEL 6-10 Albuterol/Ipratropium 1 amp 11/03/17 05:39 11/11/17 11:27 Duoneb - NEB 1 amp Q6H PRN Administration WHEEZING Heparin Sodium (Porcine) 5,000 unit 11/07/17 22:00 11/11/17 13:33 Heparin - SQ 5,000 unit TID JACKY Administration Sodium Chloride 1,000 mls @ 42 mls/hr 11/07/17 10:30 11/11/17 12:24 1/2 Normal Saline IV Not Given ASDIR JACKY Melatonin 10 mg 11/02/17 22:00 11/10/17 21:02 Melatonin PO 10 mg HS JACKY Administration Methocarbamol 500 mg 11/03/17 05:22 11/04/17 10:14 Robaxin - PO 500 mg TID PRN Administration PAIN Oxycodone HCl 5 mg 11/07/17 12:57 11/11/17 11:25 Roxicodone - PO 5 mg Q6H PRN Administration PAIN LEVEL 6-10 Pantoprazole Sodium 40 mg 11/04/17 11:30 11/11/17 11:18 Protonix - PO 40 mg DAILY JACKY Administration Last Vital Signs Temp Pulse Resp BP Pulse Ox 98.1 F 85 20 139/90 96 11/11/17 09:31 11/11/17 09:31 11/11/17 09:31 11/11/17 09:31 11/10/17 21:00 cardio s1s2 pulm wheeze GI soft ext neg edema neuro awake and alert skin neg rash circ pos pulses back pain Impression 1. CKD with acute component 2. COPD 3. chronic back pain on opioids 4. anemia 5. anxiety 6. PNA 7. chf diastolic Plan - renal workup in progress - renal function is improving - follow spep and light chains - pt admits to non compliance, she will likely not follow up
--- NOTE | 2017-11-11 16:33 | PN ---
Progress Note (short form) - Note Progress Note: NEUROSURGERY CONSULT DICTATED Chart reviewed Pt examined H/o asthma, anemia, chronic renal disease,chronic back pain s/p L1 vertebroplasty > 10 years ago, presented with 1 week h/o dyspnea, cough, and weakness. c/o fevers and chills. Lower back pain that is made worse when she coughs. She reports her back pain is chronic. Denies B/B incontinence, leg weakness or numbness. PE: General- decreased BS at B bases CN- intact; Motor- 5/5 except L IP 4/5 back pain limited; Sensation- intact LT/ vibration/proprioception; DTR- 2+ B Back- tender B LS junction CT LS Spine- Prior L1 vertebroplasty with sup endplate mild retropulsion,L3-4, L4-5, L5-S1 DDD and spondylosis and moderate to marked foramenal stenosis; no severe central stenosis Multilevel lumbar DDD with foramenal stenosis Pain likely worse with recent coughing/straining without new fracture No neurosurgical intervention recommended Trial of neurontin for pain Under chronic pain management by her physician in [facility] but desires to transfer her care up here 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
--- NOTE | 2017-11-11 19:06 | PN ---
Teaching Attending Note Name of Resident: Jo Ramos ATTENDING PHYSICIAN STATEMENT I saw and evaluated the patient. I reviewed the resident's note and discussed the case with the resident. I agree with the resident's findings and plan as documented. SUBJECTIVE: c/o having low back pain. Ct of Lspine reviewed. OBJECTIVE: Vital Signs Temperature 97.4 F L 11/11/17 14:19 Pulse Rate 91 H 11/11/17 14:19 Respiratory Rate 20 11/11/17 14:19 Blood Pressure 157/80 11/11/17 14:19 O2 Sat by Pulse Oximetry (%) 96 11/10/17 21:00 CBCD WBC 8.7 K/mm3 (4.0-10.0) 11/09/17 09:25 RBC 2.98 M/mm3 (3.60-5.2) L 11/09/17 09:25 Hgb 8.5 GM/dL (10.7-15.3) L 11/09/17 09:25 Hct 25.2 % (32.4-45.2) L 11/09/17 09:25 MCV 84.6 fl (80-96) 11/09/17 09:25 MCHC 33.8 g/dl (32.0-36.0) 11/09/17 09:25 RDW 16.6 % (11.6-15.6) H 11/09/17 09:25 Plt Count 482 K/MM3 (134-434) H 11/09/17 09:25 MPV 7.1 fl (7.5-11.1) L 11/09/17 09:25 CMP Sodium 139 mmol/L (136-145) 11/11/17 11:55 Potassium 4.4 mmol/L (3.5-5.1) 11/11/17 11:55 Chloride 107 mmol/L (98-107) 11/11/17 11:55 Carbon Dioxide 23 mmol/L (21-32) 11/11/17 11:55 Anion Gap 9 (8-16) 11/11/17 11:55 BUN 108 mg/dL (7-18) H* 11/11/17 11:55 Creatinine 3.4 mg/dL (0.55-1.02) H 11/11/17 11:55 Creat Clearance w eGFR 13.78 (>60) 11/11/17 11:55 Random Glucose 115 mg/dL (74-106) H 11/11/17 11:55 Calcium 9.3 mg/dL (8.5-10.1) 11/11/17 11:55 Total Bilirubin 0.3 mg/dL (0.2-1.0) 11/05/17 07:30 AST 12 U/L (15-37) L 11/05/17 07:30 ALT 20 U/L (12-78) 11/05/17 07:30 Alkaline Phosphatase 130 U/L (45-117) H D 11/05/17 07:30 Total Protein 6.1 g/dl (6.4-8.2) L 11/05/17 07:30 Albumin 2.4 g/dl (3.4-5.0) L 11/05/17 07:30 CARDIAC ENZYMES Creatine Kinase 27 IU/L (26-192) 11/04/17 08:15 Troponin I < 0.02 ng/ml (0.00-0.05) 11/04/17 08:15 Current Medications Generic Name Dose Route Start Last Admin Trade Name Freq PRN Reason Stop Dose Admin Acetaminophen 325 mg 11/04/17 11:22 11/11/17 11:27 Tylenol - PO 325 mg Q6H PRN Administration PAIN LEVEL 6-10 Albuterol/Ipratropium 1 amp 11/03/17 05:39 11/11/17 16:38 Duoneb - NEB 1 amp Q6H PRN Administration WHEEZING Alprazolam 0.5 mg 11/11/17 16:57 Xanax - PO Q8H PRN ANXIETY Gabapentin 100 mg 11/11/17 22:00 Neurontin - PO TID JACKY Heparin Sodium (Porcine) 5,000 unit 11/07/17 22:00 11/11/17 13:33 Heparin - SQ 5,000 unit TID JACKY Administration Sodium Chloride 1,000 mls @ 42 mls/hr 11/07/17 10:30 11/11/17 12:24 1/2 Normal Saline IV Not Given ASDIR JACKY Melatonin 10 mg 11/02/17 22:00 11/10/17 21:02 Melatonin PO 10 mg HS JACKY Administration Methocarbamol 500 mg 11/03/17 05:22 11/04/17 10:14 Robaxin - PO 500 mg TID PRN Administration PAIN Oxycodone HCl 5 mg 11/07/17 12:57 11/11/17 11:25 Roxicodone - PO 5 mg Q6H PRN Administration PAIN LEVEL 6-10 Pantoprazole Sodium 40 mg 11/04/17 11:30 11/11/17 11:18 Protonix - PO 40 mg DAILY JACKY Administration Home Medications Medication Instructions Recorded Methocarbamol [Robaxin -] 500 mg PO TID PRN 11/02/17 Amlodipine Besylate 10 mg PO DAILY 11/04/17 Atorvastatin Ca [Lipitor] 10 mg PO DAILY 11/04/17 Cyproheptadine [Periactin -] 8 mg PO DAILY 11/04/17 Donepezil HCl 5 mg PO DAILY 11/04/17 Gabapentin 600 mg PO Q8H 11/04/17 Hydrochlorothiazide 12.5 mg PO DAILY 11/04/17 Omeprazole 40 mg PO DAILY 11/04/17 Paroxetine HCl 20 mg PO DAILY 11/04/17 Quetiapine Fumarate [Seroquel -] 25 mg PO DAILY 11/04/17 Tizanidine HCl 4 mg PO DAILY 11/04/17 PE: per resident's note 11/02/17 20:14 Blood - Peripheral Venous Blood Culture - Preliminary NO GROWTH OBTAINED AFTER 96 HOURS, INCUBATION TO CONTINUE FOR 1 DAYS. 11/02/17 20:14 Blood - Peripheral Venous Blood Culture - Preliminary NO GROWTH OBTAINED AFTER 96 HOURS, INCUBATION TO CONTINUE FOR 1 DAYS. 11/03/17 11:00 Nares - Mrsa Screen - Right MRSA Screen - Final Mr S Aureus 11/03/17 11:00 Nares - Mrsa Screen - Left MRSA Screen - Final Mr S Aureus 11/03/17 07:26 Urine For Antigen Detection Legionella Antigen - Final 11/03/17 07:26 Urine For Antigen Detection Streptococcus pneumoniae Antigen (M - Final Renal ultrasound Clinical information given: evaluate lucien on ckd There is no hydronephrosis. As on a previous ultrasound study of 01/13/2016 the renal cortices bilaterally demonstrate increased echogenicity consistent with medical nephropathy. There is associated partial obscuration of the corticomedullary junction bilaterally. The right kidney small in size measuring 8 cm in length. The left kidney measures 9.4 cm. No obvious mass lesion or calculus is identified within the limitations of sonography. Incidental note is made of a 1.3 cm right renal cortical cyst. Impression: No obvious interval change is noted in comparison to a previous ultrasound study of 01/13/2016. There is no hydronephrosis. Findings the noted consistent with chronic bilateral medical renal disease. Reported By: Jean Paul Dodd MD 11/05/17 0615. ASSESSMENT AND PLAN: Patient is a 62 y/o lady with PMHx HTN, HLD, hypothyroidism, stage 4 CKD, iron- deficiency anemia, depression, anxiety, chronic back pain and peripheral neuropathy, presented with cough, and SOB and was found to have sepsis due to PNA. # Low back pain: MM w/u in process, Lidoderm patch, ordered, Oncology consult appreciated. Ct of low back reviewed .Skeletal survey pending.seen by neuro surgeon , no intervention is needed at this time. # s/p Sepsis : due to CAP. s/p IV rocephin completed the treatment. cultures as above. Elevated WBC due to steroids, completed the steroid. # s/p COPD exacerbation improved completed steroids and IV antibiotic. # LUCIEN on CKD due to having BL medical renal disease : given IVF which made renal function worse (4.9--> 5.1-->4.2-->3.9-->3.8--> 3.4 today improving) . will continue IVF . follow protein to creatine ratio, renal ultrasound as above , nephro on the case, will repeat bun/cre in am. DVT Px: Heparin
--- NOTE | 2017-11-11 21:11 | CONS ---
DATE OF CONSULTATION: 11/11/2017 CHIEF COMPLAINT: Exacerbated lower back pain over 1-plus-week duration. HISTORY OF PRESENT ILLNESS: The patient is a 62-year-old right-handed female with a history of anemia, asthma, chronic renal failure, and chronic lower back pain status post L1 vertebroplasty over 10 years ago, who presented to the hospital with 1- week history of increasing dyspnea, cough, and generalized weakness. She had some subjective fevers and chills. Her lower back pain has worsened for the past 10 days. She does have chronic lower back pain and remains under the care of pain management physician in [facility]. She stated that she would like to transfer her care to [place], where she lives. She currently has no bowel or bladder incontinence nor does she have any leg weakness or numbness. PAST MEDICAL HISTORY: Significant for L1 fracture status post L1 vertebroplasty , chronic renal failure, anemia, asthma, reflux. CURRENT MEDICATIONS: Include Protonix, melatonin, oxycodone, Robaxin, DuoNeb, subcutaneous heparin, Tylenol. ALLERGIES: LEVOFLOXACIN. SOCIAL HISTORY: She does not smoke or drink. She lives at home with her family. She does not work. REVIEW OF SYSTEMS: Otherwise negative for other major constitutional, head and neck, cardiovascular, pulmonary, gastrointestinal, genitourinary, endocrinological, neurological, and psychological problems except for the above. She has no history of systemic cancer. PHYSICAL EXAMINATION: Vital Signs: Temperature is 97.4. Blood pressure is 157/80 with pulse rate of 91. HEENT: Examination shows her to be normocephalic, atraumatic, anicteric. Neck: Supple with no carotid bruit. Coronary: Examination demonstrated regular rhythm. Lungs: Decreased breath sounds at the bases. Abdomen: Benign, with active bowel sounds. Extremities: Examination shows no signs of DVT. Neurologic: She is awake and alert, oriented x4. Cranial nerve examination is intact 2-12. Motor examination shows 5/5 strength except left iliopsoas which is 4/5, limited by her low back pain. Sensory examination is intact to light touch and vibratory sensation and proprioception. Deep tendon reflexes are 2+ throughout. There is no pathological long tract sign. LABORATORY: Examination shows initial white count of 17.2, and current white count is 8.7; hemoglobin is 8.5. INR is 1.24. Serum sodium is 139; potassium is 4.4. BUN is 108 and creatinine 3.4. Urinalysis shows 4 WBC and no RBCs. There is 2+ protein and 1+ glucose. A CT scan of the lumbar spine demonstrated L3-4, L4-5, and L5-S1 degenerative disk disease. There is evidence of [id number] foraminal stenosis on the right at L3-4 and marked at left L5-S1. There is [id number] bilateral L4-5 foraminal narrowing. There is chronic L1 fracture with superior endplate retropulsion which appears to be chronic in nature. There is evidence of a prior vertebroplasty with associated kyphosis over at L1. IMPRESSION: 1. Multi-level lumbar degenerative disk disease. 2. History of L1 posttraumatic fracture status post vertebroplasty over 10 years earlier. 3. Chronic obstructive pulmonary disease/asthma. 4. Chronic renal insufficiency. 5. Gastroesophageal reflux disease. RECOMMENDATIONS: The patient presents with lower back pain associated with her recent increase in coughing episodes. There are no signs of acute fracture on her lumbar spine CT scan. She does have multi-level lumbar degenerative disk disease with foraminal narrowing. The patient sees a pain management physician in [facility] and will likely see somebody in [place], whom she can see more frequently for chronic pain management. For that reason, I will recommend a baseline pain management consultation, so she can be followed up on an outpatient basis going forward. I took the liberty of putting her on gabapentin 100 mg p.o. t.i.d. for management of her chronic lower back pain. No neurosurgical intervention is recommended at this time. All the CT scan appearance is chronic in nature. If her symptoms persist we could consider an MRI though patient states that she could not tolerate a closed MRI, which is the only magnet the hospital has. All questions were answered at the bedside. AMEE ASENCIO M.D. [id number] RASHARD
[2017-11-11] MEDS: MELATONIN 5 MG TABLETS PO SCH (21:15)
[2017-11-11] MEDS: GABAPENTIN 100 MG CAPSULE (FP) PO SCH (21:16)
[2017-11-11] MEDS: ALPRAZolam 0.25 MG TABLET PO PRN (21:17)
--- NOTE | 2017-11-11 22:00 | PN ---
Progress Note (short form) - Note Progress Note: PAtient seen and examined c/o back pain, insomnia AFVSS Cor: RSR, No murmurs, No gallops Lungs: Clear to P&A Abd: Soft, Normal bowel sounds, No organomegaly Ext:No significant edema Labs/Meds reviewed A/P Impression 1. CKD with acute component 2. COPD 3. chronic back pain on opioids 4. anemia 5. anxiety 6. PNA 7. chf diastolic s/p L1 vertebroplasty CT LS Spine- Prior L1 vertebroplasty with sup endplate mild retropulsion,L3-4, L4-5, L5-S1 DDD and spondylosis and moderate to marked foramenal stenosis; no severe central stenosis Multilevel lumbar DDD with foraminal stenosis awaiting protein studies
[2017-11-12] MEDS: ALPRAZolam 0.25 MG TABLET PO PRN ×3 (04:28→21:35)
[2017-11-12] MEDS: oxyCODONE HCL 5 MG TABLET PO PRN ×3 (04:29→16:56)
[2017-11-12] MEDS: HEPARIN NA (PORCINE) 5,000 UNITS/ML 1ML VIAL SQ SCH ×3 (06:13→21:34)
[2017-11-12] MEDS: GABAPENTIN 100 MG CAPSULE (FP) PO SCH ×3 (06:13→21:35)
[2017-11-12] MEDS: ALBUTEROL SO4 2.5/IPRATROPIUM 0.5 INH SOL 3 ML VIAL.NEB. NEB PRN ×2 (07:45→20:35)
[2017-11-12 08:12] LABS: ANION GAP 13 (8-16); BLOOD UREA NITROGEN 96 mg/dL (7-18); CALCIUM 8.9 mg/dL (8.5-10.1); CHLORIDE 108 mmol/L (98-107); CO2 20 mmol/L (21-32); GLUCOSE,RANDOM 94 mg/dL (74-106); POTASSIUM 4.7 mmol/L (3.5-5.1); SODIUM 141 mmol/L (136-145)
[2017-11-12 08:14] LABS: CREATININE 3.3 mg/dL (0.55-1.02)
--- NOTE | 2017-11-12 09:51 | PN ---
Progress Note, Physician History of Present Illness: patient seen and examined at bedside. no acute events overnight. patient states she is feeling better and is very eager to leave. she is still having back pain , however, she denies any CP/SOB/N/V and she is not having any trouble urinating. her BUN/Cr continues to improve her most recent one from this am being 96/3.3. - Current Medication List Current Medications: Active Medications Acetaminophen (Tylenol -) 325 mg PO Q6H PRN PRN Reason: PAIN LEVEL 6-10 Last Admin: 11/11/17 11:27 Dose: 325 mg Albuterol/Ipratropium (Duoneb -) 1 amp NEB Q6H PRN PRN Reason: WHEEZING Last Admin: 11/11/17 16:38 Dose: 1 amp Alprazolam (Xanax -) 0.5 mg PO Q8H PRN PRN Reason: ANXIETY Last Admin: 11/12/17 04:28 Dose: 0.5 mg Gabapentin (Neurontin -) 100 mg PO TID [facility] Last Admin: 11/12/17 06:13 Dose: 100 mg Heparin Sodium (Porcine) (Heparin -) 5,000 unit SQ TID [facility] Last Admin: 11/12/17 06:13 Dose: 5,000 unit Sodium Chloride (1/2 Normal Saline) 1,000 mls @ 42 mls/hr IV ASDIR [facility] Last Admin: 11/11/17 19:47 Dose: 42 mls/hr Melatonin (Melatonin) 10 mg PO HS [facility] Last Admin: 11/11/17 21:15 Dose: 10 mg Methocarbamol (Robaxin -) 500 mg PO TID PRN PRN Reason: PAIN Last Admin: 11/04/17 10:14 Dose: 500 mg Pantoprazole Sodium (Protonix -) 40 mg PO DAILY [facility] Last Admin: 11/11/17 11:18 Dose: 40 mg - Objective Vital Signs: Vital Signs Temperature 98.1 F 11/12/17 06:55 Pulse Rate 86 11/12/17 06:55 Respiratory Rate 20 11/12/17 06:55 Blood Pressure 125/82 11/12/17 06:55 O2 Sat by Pulse Oximetry (%) 96 11/10/17 21:00 Constitutional: Yes: No Distress Cardiovascular: Yes: Regular Rate and Rhythm, S1, S2 Respiratory: Yes: CTA Bilaterally Gastrointestinal: Yes: Normal Bowel Sounds, Soft. No: Tenderness Musculoskeletal: Yes: Back Pain Edema: No (no LE edema) Neurological: Yes: Alert Psychiatric: Yes: Alert Labs: CBC, BMP 11/09/17 09:25 11/12/17 06:15 INR, PTT INR 1.24 (0.82-1.09) H 11/02/17 18:40 Problem List - Problems (1) Acute on chronic renal failure Code(s): N17.9 - ACUTE KIDNEY FAILURE, UNSPECIFIED; N18.9 - CHRONIC KIDNEY DISEASE, UNSPECIFIED (2) Pneumonia Code(s): J18.9 - PNEUMONIA, UNSPECIFIED ORGANISM Qualifiers: Pneumonia type: due to unspecified organism Laterality: right Lung location: unspecified part of lung Qualified Code(s): J18.9 - Pneumonia, unspecified organism (3) Back pain Code(s): M54.9 - DORSALGIA, UNSPECIFIED Qualifiers: Back pain location: low back pain Chronicity: chronic Back pain laterality: bilateral Sciatica presence: without sciatica Qualified Code(s) : M54.5 - Low back pain; G89.29 - Other chronic pain (4) Anemia Code(s): D64.9 - ANEMIA, UNSPECIFIED Qualifiers: Anemia type: unspecified cause Assessment/Plan -patients renal function is improving -workup is in progress -pending SPEP -pending light chain studies
[2017-11-12] MEDS: PANTOPRAZOLE 40 MG TABLET (FP) PO SCH (10:07)
[2017-11-12] MEDS: ACETAMINOPHEN 325 MG TABLET (FP) PO PRN ×2 (10:07→16:56)
[2017-11-12] MEDS: SODIUM CHLORIDE 0.45% 1,000 ML IV SCH (10:44)
--- NOTE | 2017-11-12 10:47 | PN ---
Progress Note (short form) - Note Progress Note: NEUROSURGERY Wants a salami sandwich Some LBP. Denies B/B incontinence, leg weakness or numbness. 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
[2017-11-12] MEDS ORDERED: NICOTINE 7 MG/24 HOURS TOPICAL PATCH TD ONE (13:15)
--- NOTE | 2017-11-12 14:54 | PN ---
Teaching Attending Note Name of Resident: Jo Ramos ATTENDING PHYSICIAN STATEMENT I saw and evaluated the patient. I reviewed the resident's note and discussed the case with the resident. I agree with the resident's findings and plan as documented. SUBJECTIVE: OBJECTIVE: Vital Signs Temperature 97.7 F 11/12/17 10:00 Pulse Rate 90 11/12/17 10:00 Respiratory Rate 16 11/12/17 10:00 Blood Pressure 118/87 11/12/17 10:00 O2 Sat by Pulse Oximetry (%) 96 11/10/17 21:00 CBCD WBC 8.7 K/mm3 (4.0-10.0) 11/09/17 09:25 RBC 2.98 M/mm3 (3.60-5.2) L 11/09/17 09:25 Hgb 8.5 GM/dL (10.7-15.3) L 11/09/17 09:25 Hct 25.2 % (32.4-45.2) L 11/09/17 09:25 MCV 84.6 fl (80-96) 11/09/17 09:25 MCHC 33.8 g/dl (32.0-36.0) 11/09/17 09:25 RDW 16.6 % (11.6-15.6) H 11/09/17 09:25 Plt Count 482 K/MM3 (134-434) H 11/09/17 09:25 MPV 7.1 fl (7.5-11.1) L 11/09/17 09:25 CMP Sodium 141 mmol/L (136-145) 11/12/17 06:15 Potassium 4.7 mmol/L (3.5-5.1) 11/12/17 06:15 Chloride 108 mmol/L (98-107) H 11/12/17 06:15 Carbon Dioxide 20 mmol/L (21-32) L 11/12/17 06:15 Anion Gap 13 (8-16) 11/12/17 06:15 BUN 96 mg/dL (7-18) H 11/12/17 06:15 Creatinine 3.3 mg/dL (0.55-1.02) H 11/12/17 06:15 Creat Clearance w eGFR 14.26 (>60) 11/12/17 06:15 Random Glucose 94 mg/dL (74-106) 11/12/17 06:15 Calcium 8.9 mg/dL (8.5-10.1) 11/12/17 06:15 Total Bilirubin 0.3 mg/dL (0.2-1.0) 11/05/17 07:30 AST 12 U/L (15-37) L 11/05/17 07:30 ALT 20 U/L (12-78) 11/05/17 07:30 Alkaline Phosphatase 130 U/L (45-117) H D 11/05/17 07:30 Total Protein 6.1 g/dl (6.4-8.2) L 11/05/17 07:30 Albumin 2.4 g/dl (3.4-5.0) L 11/05/17 07:30 CARDIAC ENZYMES Creatine Kinase 27 IU/L (26-192) 11/04/17 08:15 Troponin I < 0.02 ng/ml (0.00-0.05) 11/04/17 08:15 Current Medications Generic Name Dose Route Start Last Admin Trade Name Rip PRN Reason Stop Dose Admin Acetaminophen 325 mg 11/04/17 11:22 11/12/17 10:07 Tylenol - PO 325 mg Q6H PRN Administration PAIN LEVEL 6-10 Albuterol/Ipratropium 1 amp 11/03/17 05:39 11/11/17 16:38 Duoneb - NEB 1 amp Q6H PRN Administration WHEEZING Alprazolam 0.5 mg 11/11/17 16:57 11/12/17 12:17 Xanax - PO 0.5 mg Q8H PRN Administration ANXIETY Gabapentin 100 mg 11/11/17 22:00 11/12/17 14:02 Neurontin - PO 100 mg TID JACKY Administration Heparin Sodium (Porcine) 5,000 unit 11/07/17 22:00 11/12/17 14:02 Heparin - SQ 5,000 unit TID JACKY Administration Sodium Chloride 1,000 mls @ 42 mls/hr 11/07/17 10:30 11/12/17 10:44 1/2 Normal Saline IV Not Given ASDIR JACKY Melatonin 10 mg 11/02/17 22:00 11/11/17 21:15 Melatonin PO 10 mg HS JACKY Administration Methocarbamol 500 mg 11/03/17 05:22 11/04/17 10:14 Robaxin - PO 500 mg TID PRN Administration PAIN Oxycodone HCl 5 mg 11/12/17 10:39 11/12/17 10:44 Roxicodone - PO 5 mg Q6H PRN Administration PAIN LEVEL 6-10 Pantoprazole Sodium 40 mg 11/04/17 11:30 11/12/17 10:07 Protonix - PO 40 mg DAILY JACKY Administration Home Medications Medication Instructions Recorded RX: Methocarbamol [Robaxin -] 500 mg PO TID PRN 11/02/17 RX: Amlodipine Besylate 10 mg PO DAILY 11/04/17 RX: Atorvastatin Ca [Lipitor] 10 mg PO DAILY 11/04/17 RX: Cyproheptadine [Periactin -] 8 mg PO DAILY 11/04/17 RX: Donepezil HCl 5 mg PO DAILY 11/04/17 RX: Gabapentin 600 mg PO Q8H 11/04/17 RX: Hydrochlorothiazide 12.5 mg PO DAILY 11/04/17 RX: Omeprazole 40 mg PO DAILY 11/04/17 RX: Paroxetine HCl 20 mg PO DAILY 11/04/17 RX: Quetiapine Fumarate [Seroquel 25 mg PO DAILY 11/04/17 -] RX: Tizanidine HCl 4 mg PO DAILY 11/04/17 PE: per resident's note 11/02/17 20:14 Blood - Peripheral Venous Blood Culture - Preliminary NO GROWTH OBTAINED AFTER 96 HOURS, INCUBATION TO CONTINUE FOR 1 DAYS. 11/02/17 20:14 Blood - Peripheral Venous Blood Culture - Preliminary NO GROWTH OBTAINED AFTER 96 HOURS, INCUBATION TO CONTINUE FOR 1 DAYS. 11/03/17 11:00 Nares - Mrsa Screen - Right MRSA Screen - Final Mr S Aureus 11/03/17 11:00 Nares - Mrsa Screen - Left MRSA Screen - Final Mr S Aureus 11/03/17 07:26 Urine For Antigen Detection Legionella Antigen - Final 11/03/17 07:26 Urine For Antigen Detection Streptococcus pneumoniae Antigen (M - Final Renal ultrasound Clinical information given: evaluate lucien on ckd There is no hydronephrosis. As on a previous ultrasound study of 01/13/2016 the renal cortices bilaterally demonstrate increased echogenicity consistent with medical nephropathy. There is associated partial obscuration of the corticomedullary junction bilaterally. The right kidney small in size measuring 8 cm in length. The left kidney measures 9.4 cm. No obvious mass lesion or calculus is identified within the limitations of sonography. Incidental note is made of a 1.3 cm right renal cortical cyst. Impression: No obvious interval change is noted in comparison to a previous ultrasound study of 01/13/2016. There is no hydronephrosis. Findings the noted consistent with chronic bilateral medical renal disease. Reported By: Jean Paul Dodd MD 11/05/17 5037. Bone survey: Possible myeloma AP chest and RIBS: A single apical lordotic view reveals well expanded lung wagner with some platelike atelectasis or scarring at the bases, large heart, unfolded aorta and no sign of an acute process. Blastic or lytic changes are not seen. Skull: AP and lateral views of the skull reveal no sign of blastic changes. There are some faint lucencies seen which could represent small venous lakes. The orbits and sinuses appear intact. Cervical spine: AP and lateral views reveal degenerative changes with wedging. In the AP view, the trachea is midline. Blastic or lytic changes are not seen. In the lateral view is an element of straightening, vertebral wedging and slight posterior subluxation of L3 on L4 and L4 on L5. Thoracic spine: AP and lateral views reveal degenerative changes with wedging. There appears to be a kyphoplasty procedure. Pelvis and hips: Imaging reveals bilateral hip replacements, scoliosis and degenerative changes at L1. The prevertebral soft tissues and paraspinal soft tissues appear intact. Lumbar spine: AP and lateral views reveal degenerative changes with wedging. There is vacuum phenomena. There is aortic calcification. There are bilateral hip replacements. There is a kyphoplasty procedure at L1. Bilateral femurs: Imaging reveals bilateral hip replacements with no sign of loosening. There is no sign of a fracture on either side. Each knee shows arthritic changes. Right and left humerus: Each humerus appears intact with some arthritic changes by the shoulders. Overall impression: No acute pathology appreciated. Kyphoplasty procedure at L1. Degenerative changes scattered throughout. Bilateral hip replacements. Scoliosis. Basilar platelike atelectasis or scarring. Correlation recommended. Reported By: Forrest Balbuena MD 11/11/[address] scan of lumbosacral spine c-. . Direct axial images were obtained from T9- T10 through the upper sacrum. The study was supplemented with computer generated sagittal and coronal reconstruction images. The bootmaker hand images were reviewed. Findings. Demineralized osseous structures. Status post L1 vertebral body vertebroplasty with retropulsion of the superior posterior corner. Normal height the remaining vertebral bodies. L3-4, L4-L5, L5-S1. Vacuum phenomena. Loss of disc space height. Degenerative anterior osteophytes. L4-L5. Broad- based posterior disc protrusion. Anterolateral disc bulge. Central spinal canal stenosis, bilateral neural foraminal narrowing, right greater than the left. Disc osteophyte complex within the right neural foramen contacting the right L4 nerve. Facet joint arthropathy. No scoliosis observed on the coronal reconstruction images. L3-L4. Prominent right lateral degenerative osteophytes. Severe stenosis of the right neural foramen with effacement of the perineural epidural fat Bilateral lateral degenerative osteophytes at L4-L5. Left lateral degenerative osteophyte at L5-S1. L5-S1. Left facet joint arthropathy. Left lateral degenerative osteophytes. Severe stenosis of the left neural foramen with effacement of the perineural epidural fat. Symmetrical SI joints. Intact pedicles. No lytic or blastic lesions are seen within limitation of examination. Impression. Mild levoscoliosis of lumbosacral spine. Demineralized osseous structures. L1. Status post vertebroplasty, retropulsion of the superior posterior corner of L1. L4-L5. Broad-based posterior disc protrusion. Anterolateral disc bulge. Central spinal canal stenosis, bilateral neural foraminal narrowing, right greater than the left. Disc osteophyte complex within the right neural foramen contacting the right L4 nerve. Facet joint arthropathy. L5-S1. Left facet joint arthropathy. Left lateral degenerative osteophytes. Severe stenosis of the left neural foramen with effacement of the perineural epidural fat. L3-4 through L5-S1. Chronic degenerative discogenic disease with vacuum phenomena loss of intervertebral disc space height. Intact pedicles. No bony destructive changes are seen. Please refer to the CT of abdomen 11/03/2017 for additional findings. Reported By: Willam Villaseñor MD 11/11 0806 Laboratory Tests 11/08/17 11/08/17 11/09/17 15:15 15:15 09:25 IgG 569 L IgA 392 H Total Protein (LEISA) 6.5 Albumin (LEISA) 3.0 Albumin/Globulin (LEISA) 0.9 Swzkk-2-[id number] LEISA 0.3 [id number]-2-Vmhbjdmuc LEISA 1.4 H Gamma Globulins (LEISA) 0.8 ELISA M-Juan R Pending IEP IgG 573 L IEP IgA 381 H IEP IgM 83 DARÍO Screen Negative c-ANCA Pending Proteinase 3 (PR3) Pending p-ANCA Pending Atypical p-ANCA Pending Myeloperoxidase Ab Pending Double Strand DNA Ab <1 Glomerular Base Memb Ab 2 Surface [place]/Lambda Free [place] LC, Quant Pending Free Lambda LC, Quant Pending Free [place]/Lambda Ratio Pending 11/10/17 15:30 IgG IgA Total Protein (LEISA) Albumin (LEISA) Albumin/Globulin (LEISA) [id number]-[id number] LEISA Eybbo-1-Yydyxzzwg LEISA Gamma Globulins (LEISA) LEISA M-Juan R IEP IgG IEP IgA IEP IgM DARÍO Screen c-ANCA Proteinase 3 (PR3) p-ANCA Atypical p-ANCA Myeloperoxidase Ab Double Strand DNA Ab Glomerular Base Memb Ab Surface [place]/Lambda Pending Free [place] LC, Quant Free Lambda LC, Quant Free [place]/Lambda Ratio ASSESSMENT AND PLAN: Patient is a 62 y/o lady with PMHx HTN, HLD, hypothyroidism, stage 4 CKD, iron- deficiency anemia, depression, anxiety, chronic back pain and peripheral neuropathy, presented with cough, and SOB and was found to have sepsis due to PNA. # Low back pain with multilevel lumbar DDD with foramenal stenosis : MM w/u in process, Lidoderm patch, ordered, Oncology consult appreciated. Ct of low back reviewed .Skeletal survey as above . seen by neuro surgeon , no intervention is needed at this time. CT of Lspine: L1 vertebroplasty with sup endplate mild retropulsion, L3-4, L4-5 , L5-S1 DDD and spondylosis and moderate to marked foramenal stenosis; no severe central stenosis. # s/p Sepsis : due to CAP. s/p IV rocephin completed the treatment. cultures as above. Elevated WBC due to steroids, completed the steroid. # s/p COPD exacerbation improved completed steroids and IV antibiotic. # LUCIEN on CKD due to having BL medical renal disease : given IVF which made renal function worse (4.9--> 5.1-->4.2-->3.9-->3.8--> 3.4-->3.3 today improving ) . will continue IVF . follow protein to creatine ratio, renal ultrasound as above, nephro on the case, will repeat bun/cre in am. DVT Px: Heparin w/u is on process ,spep is pending. possible discharge in am
--- NOTE | 2017-11-12 15:40 | PN ---
Physical Exam: SUBJECTIVE: 62 year old female with a significant PMH of asthma, anemia, chronic kidney disease,chronic back pain, presents for pneumonia. She complains of chronic back pain. She had no acute events overnight. OBJECTIVE: Vital Signs Period Temp Pulse Resp BP Sys/Bills Pulse Ox Last 24 Hr 97.4 F-98.1 F 86-100 16-20 118-145/74-87 GENERAL: The patient is awake, alert, and fully oriented, tenderness to palpation diffusely EYES: PERRL, extraocular movements intact ENT: moist mucous membranes. LUNGS: mild expiratory wheezes HEART: Regular rate and rhythm, S1, S2 ABDOMEN: Soft, nontender, nondistended, normoactive bowel sounds EXTREMITIES: 2+ pulses, warm, well-perfused, no edema. SKIN: Warm, dry, normal turgor, no rashes or lesions noted Laboratory Results - last 24 hr 11/08/17 11/09/17 11/12/17 15:15 09:25 06:15 Sodium 141 Potassium 4.7 Chloride 108 H Carbon Dioxide 20 L Anion Gap 13 BUN 96 H Creatinine 3.3 H Creat Clearance w eGFR 14.26 Random Glucose 94 Calcium 8.9 Beta Globulins 1.0 LEISA & SPEP Interp Total Protein (LEISA) 6.5 Albumin (LEISA) 3.0 Albumin/Globulin (LEISA) 0.9 Pcffe-2-Bozbmiulw LEISA 0.3 Gbfbv-8-Hmfmjtbjy LEISA 1.4 H Gamma Globulins (LEISA) 0.8 LEISA M-Juan R Not observed LEISA Comments IEP IgG 573 L IEP IgA 381 H IEP IgM 83 DARÍO Screen Negative Double Strand DNA Ab <1 HCV RNA PCR w/Genot Rflx Cancelled Active Medications Generic Name Dose Route Start Last Admin Trade Name Freq PRN Reason Stop Dose Admin Acetaminophen 325 mg 11/04/17 11:22 11/12/17 10:07 Tylenol - PO 325 mg Q6H PRN Administration PAIN LEVEL 6-10 Albuterol/Ipratropium 1 amp 11/03/17 05:39 11/11/17 16:38 Duoneb - NEB 1 amp Q6H PRN Administration WHEEZING Alprazolam 0.5 mg 11/11/17 16:57 11/12/17 12:17 Xanax - PO 0.5 mg Q8H PRN Administration ANXIETY Gabapentin 100 mg 11/11/17 22:00 11/12/17 14:02 Neurontin - PO 100 mg TID JACKY Administration Heparin Sodium (Porcine) 5,000 unit 11/07/17 22:00 11/12/17 14:02 Heparin - SQ 5,000 unit TID JACKY Administration Sodium Chloride 1,000 mls @ 42 mls/hr 11/07/17 10:30 11/12/17 10:44 1/2 Normal Saline IV Not Given ASDIR JACKY Melatonin 10 mg 11/02/17 22:00 11/11/17 21:15 Melatonin PO 10 mg HS JACKY Administration Methocarbamol 500 mg 11/03/17 05:22 11/04/17 10:14 Robaxin - PO 500 mg TID PRN Administration PAIN Oxycodone HCl 5 mg 11/12/17 10:39 11/12/17 10:44 Roxicodone - PO 5 mg Q6H PRN Administration PAIN LEVEL 6-10 Pantoprazole Sodium 40 mg 11/04/17 11:30 11/12/17 10:07 Protonix - PO 40 mg DAILY JACKY Administration ASSESSMENT/PLAN: 62 year old female with a significant PMH of asthma, anemia, chronic kidney disease,chronic back pain, presents for sepsis 2/2 to pneumonia. #sepsis 2/2 to pneumonia - improving - finished abx, not currently on any new antibiotic regimen - abd US: gallbladder not identified, liver no masses, pancreas normal in size - nares + MRSA, BC no growth - continue protonix 40 mg po #LUCIEN on CKD - improving - continue 1/2 NS @ 42 - consulted Dr. Coe - Renal US: no hydronephrosis, chronic bilateral renal disease - PT will need outpatient treatment for CKD #chronic back pain - Consult neurosurgery, Dr. Olea - Lumbar CT spine: L1 vertebroplasty, L4-L5 bulging disc, central spinal stenosis - acetaminophen as needed - Oxycodone 5 mg PO Q6H prn - Lidoderm patch #anemia, thrombocytopenia - consulted Dr. Dash - Metastatic survey: no acute pathology, degenerative changes throughout - f/u SPEP, Immunoglobulin, immunofixation, serum and urine kappa and fito - IgA elevated :392 - f/u bone survey scan - possible Multiple Myeloma - will continue evaluation - Hgb: 8.8 baseline ~10 #acute CHF exacerbation - BNP: 3271 - improving - no need for standing lasix at this time - echo: LEVF: 65 %, normal size and function #Anxiety -Xanax .5 mg Q8H prn #HTN - monitor BP #nicotine dependence -7mg patch #Dispo: f/u SPEP results and then dispo Visit type - Emergency Visit Emergency Visit: No - New Patient This patient is new to me today: No - Critical Care Critical Care patient: No
--- NOTE | 2017-11-12 16:07 | PN ---
Teaching Attending Note Name of Resident: Sangita Rae (Nephrology) ATTENDING PHYSICIAN STATEMENT I saw and evaluated the patient. I reviewed the resident's note and discussed the case with the resident. I agree with the resident's findings and plan as documented. Renal Pt seen and examined. She has no complaints. She denies shortness of breath. Current Medications Generic Name Dose Route Start Last Admin Trade Name Freq PRN Reason Stop Dose Admin Acetaminophen 325 mg 11/04/17 11:22 11/12/17 10:07 Tylenol - PO 325 mg Q6H PRN Administration PAIN LEVEL 6-10 Albuterol/Ipratropium 1 amp 11/03/17 05:39 11/11/17 16:38 Duoneb - NEB 1 amp Q6H PRN Administration WHEEZING Alprazolam 0.5 mg 11/11/17 16:57 11/12/17 12:17 Xanax - PO 0.5 mg Q8H PRN Administration ANXIETY Gabapentin 100 mg 11/11/17 22:00 11/12/17 14:02 Neurontin - PO 100 mg TID JACKY Administration Heparin Sodium (Porcine) 5,000 unit 11/07/17 22:00 11/12/17 14:02 Heparin - SQ 5,000 unit TID JACKY Administration Sodium Chloride 1,000 mls @ 42 mls/hr 11/07/17 10:30 11/12/17 10:44 1/2 Normal Saline IV Not Given ASDIR JACKY Melatonin 10 mg 11/02/17 22:00 11/11/17 21:15 Melatonin PO 10 mg HS JACKY Administration Methocarbamol 500 mg 11/03/17 05:22 11/04/17 10:14 Robaxin - PO 500 mg TID PRN Administration PAIN Oxycodone HCl 5 mg 11/12/17 10:39 11/12/17 10:44 Roxicodone - PO 5 mg Q6H PRN Administration PAIN LEVEL 6-10 Pantoprazole Sodium 40 mg 11/04/17 11:30 11/12/17 10:07 Protonix - PO 40 mg DAILY JACKY Administration Last Vital Signs Temp Pulse Resp BP Pulse Ox 97.4 F L 100 H 18 122/74 96 11/12/17 14:56 11/12/17 14:56 11/12/17 14:56 11/12/17 14:56 11/10/17 21:00 cardio s1s2 pulm wheeze GI soft ext neg edema neuro awake and alert skin neg rash circ pos pulses back pain Impression 1. CKD with acute component 2. COPD 3. chronic back pain on opioids 4. anemia 5. anxiety 6. PNA 7. chf diastolic Plan - renal function is improving - cont current meds - follow light chains
[2017-11-12 16:50] LABS: ATYPICAL pANCA Negative titer (Neg:<1:20); C-ANCA Negative titer (Neg:<1:20); P-ANCA Negative titer (Neg:<1:20); PROTEINASE-3 ANTIBODY <3.5 U/mL (0.0-3.5)
--- NOTE | 2017-11-12 18:51 | PN ---
Progress Note (short form) - Note Progress Note: Patient seen and examined Complains of back pains States somewhat improved overall Last Vital Signs Temp Pulse Resp BP Pulse Ox 97.4 F L 100 H 18 122/74 96 11/12/17 14:56 11/12/17 14:56 11/12/17 14:56 11/12/17 14:56 11/10/17 21:00 HEENT: RYAN, EOM Intact Oropharynx: No thrush, No mucositis Cor: RSR, No murmurs, No gallops Lungs: Clear to P&A Abd: Soft, Normal bowel sounds, No organomegaly Ext:No significant edema Skin: No rashes, Integument intact CBC, BMP 11/09/17 09:25 11/12/17 06:15 Current Medications Generic Name Dose Route Start Last Admin Trade Name Freq PRN Reason Stop Dose Admin Acetaminophen 325 mg 11/04/17 11:22 11/12/17 16:56 Tylenol - PO 325 mg Q6H PRN Administration PAIN LEVEL 6-10 Albuterol/Ipratropium 1 amp 11/03/17 05:39 11/12/17 07:45 Duoneb - NEB 1 amp Q6H PRN Administration WHEEZING Alprazolam 0.5 mg 11/11/17 16:57 11/12/17 12:17 Xanax - PO 0.5 mg Q8H PRN Administration ANXIETY Gabapentin 100 mg 11/11/17 22:00 11/12/17 14:02 Neurontin - PO 100 mg TID JACKY Administration Heparin Sodium (Porcine) 5,000 unit 11/07/17 22:00 11/12/17 14:02 Heparin - SQ 5,000 unit TID JACKY Administration Sodium Chloride 1,000 mls @ 42 mls/hr 11/07/17 10:30 11/12/17 10:44 1/2 Normal Saline IV Not Given ASDIR JACKY Melatonin 10 mg 11/02/17 22:00 11/11/17 21:15 Melatonin PO 10 mg HS JACKY Administration Methocarbamol 500 mg 11/03/17 05:22 11/04/17 10:14 Robaxin - PO 500 mg TID PRN Administration PAIN Oxycodone HCl 5 mg 11/12/17 10:39 11/12/17 16:56 Roxicodone - PO 5 mg Q6H PRN Administration PAIN LEVEL 6-10 Pantoprazole Sodium 40 mg 11/04/17 11:30 11/12/17 10:07 Protonix - PO 40 mg DAILY JACKY Administration Impression: Back pain CKD/LUCIEN Anemia Lab data to date with skeletal survey for DJD - no lytic disease Quanatitative immunoglobulins- Elevated IgA with low IgG and normal IgM. Immunofixation - polyclonal gammopathy. Await free kappa/ free lambda light chain ratio and urine protein studies. Problem List - Problems (1) Acute on chronic renal failure Code(s): N17.9 - ACUTE KIDNEY FAILURE, UNSPECIFIED; N18.9 - CHRONIC KIDNEY DISEASE, UNSPECIFIED (2) Anemia Code(s): D64.9 - ANEMIA, UNSPECIFIED Qualifiers: Anemia type: unspecified cause (3) Back pain Code(s): M54.9 - DORSALGIA, UNSPECIFIED Qualifiers: Back pain location: low back pain Chronicity: chronic Back pain laterality: bilateral Sciatica presence: without sciatica Qualified Code(s) : M54.5 - Low back pain; G89.29 - Other chronic pain (4) CKD (chronic kidney disease) stage 4, GFR 15-29 ml/min Code(s): N18.4 - CHRONIC KIDNEY DISEASE, STAGE 4 (SEVERE) (5) Pneumonia Code(s): J18.9 - PNEUMONIA, UNSPECIFIED ORGANISM Qualifiers: Pneumonia type: due to unspecified organism Laterality: right Lung location: unspecified part of lung Qualified Code(s): J18.9 - Pneumonia, unspecified organism
[2017-11-12 19:58] LABS: ANION GAP 14 (8-16); BLOOD UREA NITROGEN 94 mg/dL (7-18); CALCIUM 8.7 mg/dL (8.5-10.1); CHLORIDE 108 mmol/L (98-107); CO2 18 mmol/L (21-32); CREATININE 3.3 mg/dL (0.55-1.02); GLUCOSE,RANDOM 102 mg/dL (74-106); SODIUM 140 mmol/L (136-145)
[2017-11-12] MEDS: MELATONIN 5 MG TABLETS PO SCH (21:35)
[2017-11-13 00:10] LABS: FREE KAPPA,SERUM 44.4 mg/L (3.3-19.4)
[2017-11-13 00:59] VITALS: TEMP 97.9
[2017-11-13] MEDS: ALBUTEROL SO4 2.5/IPRATROPIUM 0.5 INH SOL 3 ML VIAL.NEB. NEB PRN ×2 (01:30→07:48)
[2017-11-13] MEDS: GABAPENTIN 100 MG CAPSULE (FP) PO SCH (05:57)
[2017-11-13] MEDS: HEPARIN NA (PORCINE) 5,000 UNITS/ML 1ML VIAL SQ SCH ×2 (05:57→14:12)
[2017-11-13 06:07] LABS: KAPPA/LAMBDA RATIO, UR 6.21 (2.04-10.37)
--- NOTE | 2017-11-13 07:56 | PN ---
Progress Note (short form) - Note Progress Note: NEUROSURGERY Wants a salami sandwich Some LBP. Denies B/B incontinence, leg weakness or numbness. PE: Tmax 97.9, General- decreased BS at B bases CN- intact; Motor- 5/5 except L IP 4/5 back pain limited; Sensation- intact LT/ vibration/proprioception; DTR- 2+ B Back- tender B LS junction WBC 8.7, trending down CT LS Spine- Prior L1 vertebroplasty with sup endplate mild retropulsion, L3-4, L4-5, L5-S1 DDD and spondylosis and moderate to marked foramenal stenosis; no severe central stenosis Multilevel lumbar DDD with foramenal stenosis Oncology w/u in progress Given persistent LBP despite medications, would consider LS spine MRI, given recent pneumonia Increase neurontin
[2017-11-13] MEDS ORDERED: GABAPENTIN 300 MG CAPSULE (FP) PO SCH (08:01)
[2017-11-13] MEDS ORDERED: diazePAM 5 MG TABLET PO ONE (08:15)
[2017-11-13 09:09] LABS: ALBUMIN 2.5 g/dl (3.4-5.0); ALK PHOS 140 U/L (45-117); ANION GAP 9 (8-16); BILIRUBIN,TOTAL 0.2 mg/dL (0.2-1.0); BLOOD UREA NITROGEN 99 mg/dL (7-18); CALCIUM 8.8 mg/dL (8.5-10.1); CHLORIDE 108 mmol/L (98-107); CO2 22 mmol/L (21-32); CREATININE 3.2 mg/dL (0.55-1.02); GLUCOSE,RANDOM 96 mg/dL (74-106); POTASSIUM 4.8 mmol/L (3.5-5.1); SGOT/AST 20 U/L (15-37); SGPT/ALT 31 U/L (12-78); SODIUM 139 mmol/L (136-145); TOT PROT 5.8 g/dl (6.4-8.2)
--- NOTE | 2017-11-13 09:16 | PN ---
Progress Note, Physician History of Present Illness: patient seen and examined at beside. said her back pain is getting worse and she feels very short of breath at night. is requesting something stronger for her back pain as she doesnt feel its getting back. she denies any CP/N/V or trouble urinating. the kappa and lambda light cahin studies came back and both are elevated: free kappa light chain: 44.4, free lambda light chain: 31.9 and the ratio at 1.39 and her most recent Cr was 3.2 from this morning. - Current Medication List Current Medications: Active Medications Acetaminophen (Tylenol -) 325 mg PO Q6H PRN PRN Reason: PAIN LEVEL 6-10 Last Admin: 11/12/17 16:56 Dose: 325 mg Albuterol/Ipratropium (Duoneb -) 1 amp NEB Q6H PRN PRN Reason: WHEEZING Last Admin: 11/13/17 07:48 Dose: 1 amp Alprazolam (Xanax -) 0.5 mg PO Q8H PRN PRN Reason: ANXIETY Last Admin: 11/12/17 21:35 Dose: 0.5 mg Gabapentin (Neurontin -) 300 mg PO TID [facility] Heparin Sodium (Porcine) (Heparin -) 5,000 unit SQ TID [facility] Last Admin: 11/13/17 05:57 Dose: 5,000 unit Sodium Chloride (1/2 Normal Saline) 1,000 mls @ 42 mls/hr IV ASDIR [facility] Last Admin: 11/12/17 10:44 Dose: Not Given Melatonin (Melatonin) 10 mg PO HS [facility] Last Admin: 11/12/17 21:35 Dose: 10 mg Methocarbamol (Robaxin -) 500 mg PO TID PRN PRN Reason: PAIN Last Admin: 11/04/17 10:14 Dose: 500 mg Oxycodone HCl (Roxicodone -) 5 mg PO Q6H PRN PRN Reason: PAIN LEVEL 6-10 Last Admin: 11/12/17 16:56 Dose: 5 mg Pantoprazole Sodium (Protonix -) 40 mg PO DAILY [facility] Last Admin: 11/12/17 10:07 Dose: 40 mg - Objective Vital Signs: Vital Signs Temperature 97.9 F 11/12/17 22:00 Pulse Rate 98 H 11/13/17 06:50 Respiratory Rate 92 H 11/13/17 06:50 Blood Pressure 127/80 11/13/17 06:50 O2 Sat by Pulse Oximetry (%) 96 11/10/17 21:00 Constitutional: Yes: No Distress Cardiovascular: Yes: Regular Rate and Rhythm, S1, S2 Respiratory: Yes: CTA Bilaterally, Diminished (slightly diminished breath sounds ) Gastrointestinal: Yes: Normal Bowel Sounds, Soft. No: Tenderness Musculoskeletal: Yes: Back Pain Edema: No (no LE edema ) Neurological: Yes: Alert Labs: CBC, BMP 11/09/17 09:25 INR, PTT INR 1.24 (0.82-1.09) H 11/02/17 18:40 Problem List - Problems (1) Acute on chronic renal failure Code(s): N17.9 - ACUTE KIDNEY FAILURE, UNSPECIFIED; N18.9 - CHRONIC KIDNEY DISEASE, UNSPECIFIED (2) Pneumonia Code(s): J18.9 - PNEUMONIA, UNSPECIFIED ORGANISM Qualifiers: Pneumonia type: due to unspecified organism Laterality: right Lung location: unspecified part of lung Qualified Code(s): J18.9 - Pneumonia, unspecified organism (3) Back pain Code(s): M54.9 - DORSALGIA, UNSPECIFIED Qualifiers: Back pain location: low back pain Chronicity: chronic Back pain laterality: bilateral Sciatica presence: without sciatica Qualified Code(s) : M54.5 - Low back pain; G89.29 - Other chronic pain (4) Anemia Code(s): D64.9 - ANEMIA, UNSPECIFIED Qualifiers: Anemia type: unspecified cause Assessment/Plan patients renal function continues to improve but increased complaints of dyspnea -stop fluids -do not continue giving lasix
[2017-11-13] MEDS ORDERED: NICOTINE 7 MG/24 HOURS TOPICAL PATCH TD SCH (10:00)
[2017-11-13] MEDS: PANTOPRAZOLE 40 MG TABLET (FP) PO SCH (10:31)
[2017-11-13 11:36] VITALS: BMI 24.1
--- NOTE | 2017-11-13 13:10 | PN ---
Teaching Attending Note Name of Resident: Sangita Rae (Nephrology) ATTENDING PHYSICIAN STATEMENT I saw and evaluated the patient. I reviewed the resident's note and discussed the case with the resident. I agree with the resident's findings and plan as documented. Pt seen and examined at bedside. She says she had difficulty sleeping last night and felt short of breath. She feels better today. Current Medications Generic Name Dose Route Start Last Admin Trade Name Freq PRN Reason Stop Dose Admin Acetaminophen 325 mg 11/04/17 11:22 11/12/17 16:56 Tylenol - PO 325 mg Q6H PRN Administration PAIN LEVEL 6-10 Albuterol/Ipratropium 1 amp 11/03/17 05:39 11/13/17 07:48 Duoneb - NEB 1 amp Q6H PRN Administration WHEEZING Alprazolam 0.5 mg 11/11/17 16:57 11/12/17 21:35 Xanax - PO 0.5 mg Q8H PRN Administration ANXIETY Gabapentin 300 mg 11/13/17 08:01 Neurontin - PO TID JACKY Heparin Sodium (Porcine) 5,000 unit 11/07/17 22:00 11/13/17 05:57 Heparin - SQ 5,000 unit TID JACKY Administration Sodium Chloride 1,000 mls @ 42 mls/hr 11/07/17 10:30 11/12/17 10:44 1/2 Normal Saline IV Not Given ASDIR JACKY Melatonin 10 mg 11/02/17 22:00 11/12/17 21:35 Melatonin PO 10 mg HS JACKY Administration Methocarbamol 500 mg 11/03/17 05:22 11/04/17 10:14 Robaxin - PO 500 mg TID PRN Administration PAIN Oxycodone HCl 5 mg 11/12/17 10:39 11/12/17 16:56 Roxicodone - PO 5 mg Q6H PRN Administration PAIN LEVEL 6-10 Pantoprazole Sodium 40 mg 11/04/17 11:30 11/13/17 10:31 Protonix - PO 40 mg DAILY JACKY Administration Last Vital Signs Temp Pulse Resp BP Pulse Ox 97.9 F 98 H 92 H 127/80 96 11/12/17 22:00 11/13/17 06:50 11/13/17 06:50 11/13/17 06:50 07/22/18 21:00 Laboratory Tests 11/08/17 11/09/17 11/10/17 15:15 09:25 15:30 DARÍO Screen Negative Double Strand DNA Ab <1 Glomerular Base Memb Ab 2 Surface [place]/Lambda Laboratory Tests 11/08/17 15:15 Free [place] LC, Quant 44.4 H Free [place]ambda LC, Quant 31.9 H Free [place]/Lambda Ratio 1.39 cardio s1s2 pulm wheeze GI soft ext neg edema neuro awake and alert skin neg rash circ pos pulses back pain Impression 1. CKD with acute component 2. COPD 3. chronic back pain on opioids 4. anemia 5. anxiety 6. PNA 7. chf diastolic Plan - d/c fluids, (she takes them off most of the day) - renal function stabilizing - light chain ratio is normal - can see in office if she follows up - heme follow up - pt is poorly compliant as outpt, discussed importance of follow up with her
[2017-11-13 14:10] VITALS: BP 128/54; PULSE 91
[2017-11-13] MEDS: ALPRAZolam 0.25 MG TABLET PO PRN (14:12)
--- NOTE | 2017-11-13 14:16 | PN ---
Teaching Attending Note Name of Resident: Jo Ramos ATTENDING PHYSICIAN STATEMENT I saw and evaluated the patient. I reviewed the resident's note and discussed the case with the resident. I agree with the resident's findings and plan as documented. SUBJECTIVE: No fever or chills. has generalized pain. SOB is better . OBJECTIVE: calm , NAD CV: RRR, no MRG. NO JVD Lungs:bibasilar crackles Ext: no edema Abd: soft, bruises, TTP in all quadrants. ND. no rebound tenderness or guarding Assessment/Plan: 62 y/o lady with h/o HTN, hyperlipidemia, hypothyroidism, stage 4 CKD, iron- deficiency anemia, depression, anxiety, chronic back pain and peripheral neuropathy, and other medical problems who presented with cough, and SOB and was found to have sepsis due to PNA 1- Sepsis and PNA : resolved 2- Acute hypoxic resp failure : resolved. finished steroids 3- LUCIEN on CKD: stable cr. dc IVF as crackles today No M spike on SPEP, nl Gay/lamda. Neg skeletal survey. further w/u as out pt 4- BAck pain: CT scan reviewed. No surgical intervention as no significant stenosis per Ct scan. MRI pending to r/o epidural abscess or discitis given recent PNA. appreciate Dr. Olea input 5- failed PT. need rehab placement D/W Cm. NH placement , hopefully tomorrow pending MRI
--- NOTE | 2017-11-13 15:37 | DS ---
Physical Exam: SUBJECTIVE: 62 year old female with a significant PMH of asthma, anemia, chronic kidney disease,chronic back pain, presents for pneumonia. She complains of chronic back pain. She had no acute events overnight. OBJECTIVE: Vital Signs Period Temp Pulse Resp BP Sys/Bills Pulse Ox Last 24 Hr 97.9 F-97.9 F 91-98 18-92 121-128/54-80 PHYSICAL EXAM GENERAL: The patient is awake, alert, and fully oriented, tenderness to palpation diffusely EYES: PERRL, extraocular movements intact ENT: moist mucous membranes. LUNGS: mild expiratory wheezes HEART: Regular rate and rhythm, S1, S2 ABDOMEN: Soft, nontender, nondistended, normoactive bowel sounds EXTREMITIES: 2+ pulses, warm, well-perfused, no edema. SKIN: Warm, dry, normal turgor, no rashes or lesions noted LABS Laboratory Results - last 24 hr 11/08/17 11/09/17 11/10/17 15:15 09:25 15:30 Sodium Potassium Chloride Carbon Dioxide Anion Gap BUN Creatinine Creat Clearance w eGFR Random Glucose Calcium Total Bilirubin AST ALT Alkaline Phosphatase Total Protein Total Protein (PEP) 6.3 Albumin Albumin (PEP) 3.1 Globulin 3.2 Albumin/Globulin Ratio 1.0 Beta Globulins 1.0 U Free [place] Light Ch 131.00 H U Free Lambda Light Ch 21.10 H LEISA M-Juan R Not observed c-ANCA Negative Proteinase 3 (PR3) <3.5 p-ANCA Negative Atypical p-ANCA Negative Myeloperoxidase Ab <9.0 Surface [place]/Lambda 6.21 Free [place] LC, Quant 44.4 H Free Lambda LC, Quant 31.9 H Free [place]/Lambda Ratio 1.39 11/12/17 11/13/17 18:00 08:30 Sodium 140 139 Potassium 6.0 H 4.8 Chloride 108 H 108 H Carbon Dioxide 18 L 22 Anion Gap 14 9 BUN 94 H 99 H Creatinine 3.3 H 3.2 H Creat Clearance w eGFR 14.26 14.78 Random Glucose 102 96 Calcium 8.7 8.8 Total Bilirubin 0.2 AST 20 ALT 31 Alkaline Phosphatase 140 H D Total Protein 5.8 L Total Protein (PEP) Albumin 2.5 L Albumin (PEP) Globulin Albumin/Globulin Ratio Beta Globulins U Free [place] Light Ch U Free Lambda Light Ch LEISA M-Juan R c-ANCA Proteinase 3 (PR3) p-ANCA Atypical p-ANCA Myeloperoxidase Ab Surface [place]/Lambda Free [place] LC, Quant Free Lambda LC, Quant Free [place]/Lambda Ratio HOSPITAL COURSE: Date of Admission:11/02/17 62 year old female with a significant PMH of asthma, anemia, chronic kidney disease,chronic back pain, presented for complaints of SOB. Patient has a WBC count of 22.1 and a CXR showed possible infiltrates in the right lower lung field. Patient was started on ceftriaxone and azythromycin. Finished course of antibiotics for community acquired pneumonia. Patient was started on short course of steroids and finished 5 day course. Upon admission pts BUN was 73 and Cr 4.9. Patient was given NS and the next day her BUN/Cr had worsened. Patient had bilateral crackles and a CXR was suggestive of congestion. BNP 3271. Patient given one time dose of 40 mg lasix IV. Her crackles resolved and her shortness of breath improved. A echo was done and showed a LEVF: 65%, with normal ventricular size and function. Nephrology consult , Dr. Coe, expressed patients poor compliance outpatient and discussed with patient the need for her to follow up. NS @ 42 was given to patient, most days she refused fluids. The patients increase in BUN was attributed to the short course of steroids. Patient reports chronic back pain. In the setting of back pain, anemia and renal abnormalities, oncologist, Dr. Dash, was consulted for possible multiple myeloma. Bone scan showed no acute pathology and degenerative changes throughout. Immunology, protein electrophoresis, kappa/lambda ratios, and hepatitis serology were ordered. Patient had a high IgA but may be reactive to recent infection. Hepatitis panel negative. [place] and Lambda ratio within normal limits. Patient can continue to follow up with Dr. Dash as an outpatient. A CT spine of the lumbar spine was ordered and it showed L1 vertebroplasty, L4- L5 bulging discs and central spinal stenosis. Neurosurgery was consulted and no surgical intervention was recommended at this time. Patient started on neurontin to aid her chronic back pain. She will continue Neurontin 300 mg TID as an outpatient. Neurosurgeon, Dr. Calvin, wanted a MRI of spine to r/o possibility of abscess. Patient adamantly refused to get MRI done. Spoke with patient about necessity of this test but she continued to refuse. Patient given script to follow up as an outpatient for an open MRI and she will follow up with Dr. calvin for the results. Recommended pain specialist for future management, Dr. James. Patient unable to walk more than 15 feet. Patient will be discharged to [facility] for rehab. Abd US: study limited, galbladder not identified, liver normal, pancreas normal Renal US: right kidney small, no obvious mass or lesions, 1.3 cm right renal cortical cyst nares-positive for MRSA Date of Discharge: 11/13/17 Minutes to complete discharge: 45 Discharge Summary Reason For Visit: PNEUMONIA Current Active Problems Back pain (Chronic) CHF (congestive heart failure) (Chronic) CKD (chronic kidney disease) stage 4, GFR 15-29 ml/min (Chronic) Degenerative disc disease at L5-S1 level (Chronic) Condition: Improved - Instructions Diet, Activity, Other Instructions: You came to the hospital for shortness of breath and cough. This was because you had pneumonia. We gave you antibiotics which helped clear your pneumonia and it has resolved. Your shortness of breath was also caused by your heart failure. You were given lasix, a water pill, which removed the fluid from your lungs to help you breathe. We preformed an ECHO which looks at the function of your heart and it showed that your function is normal. You have chronic kidney disease and your kidneys were monitored by Dr. Coe during your stay here. It is very important that you follow up with him outpatient so that your kidney function does not worsen. Imaging (CT scan) of your back was done and it showed some herniation in your lower spine. Dr. Calvin evaluated you and you do not need surgery at this time. It is recommended that you have an open MRI of your lumbar spine done to follow up with any abnormalities in your spine. You have a referral for an open MRI so that you can schedule it as an outpatient. You should follow up with pain management, Dr. Medrano, to help treat your chronic back pain. You will continue to take the following medication to help your pain: Neurontin 300 mg by mouth three times a day You were also evaluated by Dr. Dash who is a oncologist, for possible multiple myeloma. Your labs were not suggestive of this disease at this time. You should follow up with Dr. Dash as an outpatient for further workup. You should continue to take your home medications as prescribed. You should follow up with your primary care physician within one week. If your symptoms worsen or you have any vomiting, diarrhea, chest pain, or headache you should return to the Emergency Department. Referrals: Catalino Lagos MD [Staff Physician] - 1 Week Som James MD [Staff Physician] - Roverto Calvin MD [Staff Physician] - 1 Week Jose Dash MD [Staff Physician] - Sofy Coe MD [Staff Physician] - 1 Week Disposition: [facility] F[facility]ILITY - Home Medications Comprehensive Discharge Medication List: Ambulatory Orders Methocarbamol [Robaxin -] 500 mg PO TID PRN 11/02/17 Amlodipine Besylate 10 mg PO DAILY 11/04/17 Atorvastatin Ca [Lipitor] 10 mg PO DAILY 11/04/17 Cyproheptadine [Periactin -] 8 mg PO DAILY 11/04/17 Donepezil HCl 5 mg PO DAILY 11/04/17 Hydrochlorothiazide 12.5 mg PO DAILY 11/04/17 Omeprazole 40 mg PO DAILY 11/04/17 Paroxetine HCl 20 mg PO DAILY 11/04/17 Quetiapine Fumarate [Seroquel -] 25 mg PO DAILY 11/04/17 Tizanidine HCl 4 mg PO DAILY 11/04/17 Gabapentin [Neurontin] 300 mg PO TID #42 capsule 11/13/17 Miscellaneous Medical Supply [Outpatient Order] 1 each ASDIR #1 misc This patient is new to me today: No Emergency Visit: No Critical Care patient: No - Discharge Referral Referred to [facility] Med P.C.: No
--- NOTE | 2017-11-14 09:40 | PATH ---
Surgical Pathology Report Patient Name: AWAIS ROJAS [facility]. Rec. #: [id number] /Age/Gender: 1955 (Age: 62) / F Account: [id number] Location: [facility] MED/SURG Taken: 11/11/2017 Received: 11/11/2017 Reported: 11/14/2017 Physicians: Jose Dash M.D. Specimen(s) Received 2 LAVENDER TOPS Clinical History Thrombocytosis Final Diagnosis JAK2 V617F MUTATION ANALYSIS BY PCR ([id number]) [facility] [place] showed the following: RESULTS: Only the Wild-type JAK2 sequence was detected. INTERPRETATION: Negative for JAK2 V617F mutation. See [facility] report for details ([id number]). Electronically Signed Awais Hughes M.D. Addendum Reported: 11/15/2017 Addendum Diagnosis BCR-ABL Gene Rearrangement (IS) Analysis performed and interpreted at [facility] [place] [place] ([id number]) shows the following: RESULTS: Negative BCR/ABL Major breakpoints (b2a2 and b3a2): Not Detected BCR/ABL Minor breakpoint (e1a2): Not Detected INTERPRETATION: No BCR-ABL translocation was detected in this sample. COMMENT: The BCR/ABL fusion gene, formed by rearrangement of the breakpoint cluster region (bcr) on chromosome 22 with the c-abl george-oncogene on chromosome 9, is present in vast majority of CML patients, and 35% of [place] chromosome-positive precursor B-ALL. The BCR/ABL rearrangement causes production of an abnormal tyrosine kinase molecule with increased activity. The major breakpoint cluster region (M-bcr), detected mainly in CML, has two junctional variants, b2a2 and b3a2. The M-bcr gives rise to the BCR/ABL1 chimeric protein p210, a deregulated tyrosine kinase. The minor breakpoint region (m-bcr), detected in a small minority of CML patients and in a majority of patients with [place] chromosome-positive precursor B-ALL, codes for the BCR/ABL1 chimeric protein p190. The quantification of BCR-ABL major breakpoints (b3a2 and b2a2) was compliant with the updated international recommendations, and contains an IS-MMR Calibrator to the International Scale (IS). The International Randomized Study of Interferon (IRIS) trial and follow up studies have demonstrated that achieving MMR, or a 3-log reduction in BCR-ABL1 expression from the standardized baseline level, is a randolph clinical outcome. See [facility] report ([id number]) for additional details. Awais Hughes M.D. Gross Description Received are 2 lavender top tubes of blood which are sent to [facility]. 11/11/201711/11/2017
== END 2017-11-13 17:02 | DRG 720 ==
LOC: JER 16:50 → JERBED 20:31 → OBSVTOIN 20:52 → J8W 11-03 03:08
PROVIDERS: ADMIT Internal Medicine; ATTEND Internal Medicine
DX: A41.9 Sepsis, unspecified organism (principal); J18.9 Pneumonia, unspecified organism; M54.9 Dorsalgia, unspecified; E87.6 Hypokalemia; M48.061 Spinal stenosis, lumbar region without neurogenic claudication; I13.0 Hypertensive heart and chronic kidney disease with heart failure and stage 1 through stage 4 chronic kidney disease, or unspecified chronic kidney disease; N18.4 Chronic kidney disease, stage 4 (severe); E78.5 Hyperlipidemia, unspecified; J96.01 Acute respiratory failure with hypoxia; N17.9 Acute kidney failure, unspecified; G62.9 Polyneuropathy, unspecified; F41.8 Other specified anxiety disorders; D64.9 Anemia, unspecified; F17.210 Nicotine dependence, cigarettes, uncomplicated; D72.829 Elevated white blood cell count, unspecified; D69.6 Thrombocytopenia, unspecified; J45.901 Unspecified asthma with (acute) exacerbation; E87.1 Hypo-osmolality and hyponatremia; J98.11 Atelectasis; M51.86 Other intervertebral disc disorders, lumbar region; N28.1 Cyst of kidney, acquired; I50.31 Acute diastolic (congestive) heart failure
CPT/HCPCS: 36415; 71045-TC-FY; 71046-TC-FY; 72131-TC; 76705-TC; 76775-TC; 77074-TC-FY; 80048; 80053; 81003; 81015; 82436; 82550; 82570; 82784; 83516; 83520; 83735; 83880; 83883; 84100; 84133; 84155; 84156; 84165; 84300; 84484; 85025; 85027; 85610; 86038; 86225; 86256; 86334; 86704; 86706; 86708; 87040; 87081; 87340; 87522; 87899; 88300-TC; 93005; 93010; 93306-TC; 94640; 97116-GP; 97161-GP; 99285-25; G0378; J1644; J7030; J7620

== ENCOUNTER 2017-11-15 19:50 | Emergency (ER) | payer OTHER ==
[2017-11-15 20:10] VITALS: BP 106/52; PULSE 86; TEMP 97.7; BMI 27.3
--- NOTE | 2017-11-15 20:18 | PDOC ---
History of Present Illness - General Chief Complaint: Revisit, Lab Variance Stated Complaint: ABNORMAL LABS Time Seen by Provider: 11/15/17 20:17 - History of Present Illness Initial Comments: 11/15/17 20:30 Ms. Matamoros is a 62 yo female w/ pmh of asthma, anemia, CKD, chronic bakc pain, herniated disc to lumbar spine, and recent admission 11/02-11/13 for pneumonia w/ subsequent discharge to rehab facility who presents for evaluation of noted elevated BUN on labs. Patient currently at baseline otherwise per daughter and has no new complaints. The patient denies chest pain, shortness of breath, headache and dizziness. Denies fever, chills, nausea, vomit, diarrhea and constipation. Denies dysuria, frequency, urgency and hematuria. Allergies: Levofloxacin Past History - Past Medical History Allergies/Adverse Reactions: Allergies Allergy/AdvReac Type Severity Reaction Status Date / Time levofloxacin [From Levaquin] Allergy Mild Itching Verified 11/15/17 20:09 Home Medications: Ambulatory Orders Methocarbamol [Robaxin -] 500 mg PO TID PRN 11/02/17 Amlodipine Besylate 10 mg PO DAILY 11/04/17 Atorvastatin Ca [Lipitor] 10 mg PO DAILY 11/04/17 Cyproheptadine [Periactin -] 8 mg PO DAILY 11/04/17 Donepezil HCl 5 mg PO DAILY 11/04/17 Hydrochlorothiazide 12.5 mg PO DAILY 11/04/17 Omeprazole 40 mg PO DAILY 11/04/17 Paroxetine HCl 20 mg PO DAILY 11/04/17 Quetiapine Fumarate [Seroquel -] 25 mg PO DAILY 11/04/17 Tizanidine HCl 4 mg PO DAILY 11/04/17 Gabapentin [Neurontin] 300 mg PO TID #42 capsule 11/13/17 Miscellaneous Medical Supply [Outpatient Order] 1 each ASDIR #1 misc Anemia: Yes Asthma: Yes Cancer: Yes (ovarian) Cardiac Disorders: Yes CVA: No COPD: Yes CHF: No DVT: No Dementia: No Diabetes: No GI Disorders: Yes (bleeding ulcer) Disorders: Yes (KIDNEY STONE;) HTN: Yes Hypercholesterolemia: Yes Kidney Stones: Yes Liver Disease: No Psychiatric Problems: Yes (ANXIETY, DEPRESSION) Seizures: No Thyroid Disease: Yes (hypothyroid) - Surgical History Abdominal Surgery: No Appendectomy: No Cardiac Surgery: No Cholecystectomy: No Lung Surgery: No Neurologic Surgery: No Orthopedic Surgery: Yes (B/L hip replacement (rt 2009; left 2012)) - Immunization History Td Vaccination: Yes TDAP Vaccination: No Immunization Up to Date: Yes - Suicide/Smoking/Psychosocial Hx Smoking Status: Yes Smoking History: Current some day smoker Years of Tobacco Use: 30 Have you smoked in the past 12 months: Yes Number of Cigarettes Smoked Daily: 8 (began ssmoking as teenager) If you are a former smoker, when did you quit?: refused booklet 07/21/14 Cigars Per Day: 20 Information on smoking cessation initiated: No 'Breaking Loose' booklet given: 06/28/16 Hx Alcohol Use: Yes Drug/Substance Use Hx: No Substance Use Type: Cocaine, Marijuana Hx Substance Use Treatment: Yes ([facility] 2012 - did not complete) Review of Systems - Review of Systems Comments:: 11/15/17 20:34 GENERAL/CONSTITUTIONAL: No fever or chills. No weakness. HEAD, EYES, EARS, NOSE AND THROAT: No change in vision. No ear pain or discharge. No sore throat. CARDIOVASCULAR: No chest pain or shortness of breath RESPIRATORY: No cough, wheezing, or hemoptysis. GASTROINTESTINAL: No nausea, vomiting, diarrhea or constipation. GENITOURINARY: No dysuria, frequency, or change in urination. MUSCULOSKELETAL: No joint or muscle swelling or pain. No neck or back pain. SKIN: No rash NEUROLOGIC: No headache, vertigo, loss of consciousness, or change in strength/ sensation. ENDOCRINE: No increased thirst. No abnormal weight change HEMATOLOGIC/LYMPHATIC: No anemia, easy bleeding, or history of blood clots. ALLERGIC/IMMUNOLOGIC: No hives or skin allergy. *Physical Exam - Vital Signs Last Vital Signs Temp Pulse Resp BP Pulse Ox 97.7 F 86 17 106/52 97 11/15/17 19:55 11/15/17 19:55 11/15/17 19:55 11/15/17 19:55 11/15/17 19:55 - Physical Exam Comments: 11/15/17 20:34 GENERAL: Awake, alert, and fully oriented, in no acute distress HEAD: No signs of trauma, normocephalic, atraumatic EYES: PERRLA, EOMI, sclera anicteric, conjunctiva clear ENT: Auricles normal inspection, hearing grossly normal, nares patent, oropharynx clear without exudates. Moist mucosa NECK: Normal ROM, supple, no lymphadenopathy, JVD, or masses LUNGS: No distress, speaks full sentences, clear to auscultation bilaterally HEART: Regular rate and rhythm, normal S1 and S2, no murmurs, rubs or gallops, peripheral pulses normal and equal bilaterally. ABDOMEN: Soft, nontender, normoactive bowel sounds. No guarding, no rebound. No masses EXTREMITIES: Normal inspection, Normal range of motion, no edema. No clubbing or cyanosis. NEUROLOGICAL: Cranial nerves II through XII grossly intact. Normal speech, normal gait, no focal sensorimotor deficits SKIN: Warm, Dry, normal turgor, no rashes or lesions noted. ED Treatment Course - LABORATORY CBC & Chemistry Diagram: 11/15/17 22:45 11/15/17 22:45 Medical Decision Making - Medical Decision Making 11/16/17 01:21 Ms. Matamoros is a 62 yo female w/ pmh as described who presents for evaluation of elevated BUN noted on SD labs. Patient evaluated and BUN found to be at patient' s baseline consistent w/ previous admission. Other labs as below. Potassium noted to be elevated to 5.4; EKG shows no signs of T-wave peaking or other concerning morphology, no concern for acute process at this time. Discharging back to SD for further outpatient evaluation. Laboratory Results - last 24 hr 11/15/17 11/15/17 22:45 22:45 WBC 10.2 H RBC 2.83 L Hgb 8.2 L Hct 24.8 L MCV 87.9 MCH 29.0 MCHC 33.0 RDW 18.1 H Plt Count 367 D MPV 8.0 D Absolute Neuts (auto) 8.0 Neutrophils % 78.7 Lymphocytes % 10.4 D Monocytes % 7.8 Eosinophils % 2.1 D Basophils % 1.0 D Nucleated RBC % 0 Sodium 141 Potassium 5.4 H Chloride 111 H Carbon Dioxide 20 L Anion Gap 10 BUN 101 H Creatinine 3.8 H Creat Clearance w eGFR 12.12 Random Glucose 104 Calcium 8.9 Total Bilirubin 0.3 AST 24 ALT 35 Alkaline Phosphatase 171 H D Total Protein 6.3 L Albumin 2.8 L *DC/Admit/Observation/Transfer Diagnosis at time of Disposition: Elevated BUN - Discharge Dispostion Disposition: HOME Condition at time of disposition: Fair - Referrals - Patient Instructions Additional Instructions: Please follow-up with primary care provider early next week for further evaluation. Return to ER if any fever, chills, change in mental status, or other concerning symptoms. - Post Discharge Activity
[2017-11-15 22:54] LABS: EOS % 2.1 % (0-4.5); HEMATOCRIT 24.8 % (32.4-45.2); HEMOGLOBIN 8.2 GM/dL (10.7-15.3); LYMPH % 10.4 % (8-40); MEAN CELL VOLUME 87.9 fl (80-96); MONO % 7.8 % (3.8-10.2); NEUT % 78.7 % (42.8-82.8); PLATELET COUNT 367 K/MM3 (134-434); RBC 2.83 M/mm3 (3.60-5.2); RDW 18.1 % (11.6-15.6); WHITE BLOOD COUNT 10.2 K/mm3 (4.0-10.0)
[2017-11-15 23:23] LABS: ALBUMIN 2.8 g/dl (3.4-5.0); ALK PHOS 171 U/L (45-117); ANION GAP 10 (8-16); BILIRUBIN,TOTAL 0.3 mg/dL (0.2-1.0); BLOOD UREA NITROGEN 101 mg/dL (7-18); CALCIUM 8.9 mg/dL (8.5-10.1); CHLORIDE 111 mmol/L (98-107); CO2 20 mmol/L (21-32); CREATININE 3.8 mg/dL (0.55-1.02); GLUCOSE,RANDOM 104 mg/dL (74-106); POTASSIUM 5.4 mmol/L (3.5-5.1); SGOT/AST 24 U/L (15-37); SGPT/ALT 35 U/L (12-78); SODIUM 141 mmol/L (136-145); TOT PROT 6.3 g/dl (6.4-8.2)
--- NOTE | 2017-11-16 01:29 | PDOC ---
Attending Attestation - Resident Resident Name: XochitlHal - ED Attending Attestation I have performed the following: I have examined & evaluated the patient, The case was reviewed & discussed with the resident, I agree w/resident's findings & plan, Exceptions are as noted - Medical Decision Making 11/16/17 01:29 A portion of this note was documented by scribe services under my direction. I have reviewed the details of the note, within reason, and agree with the documentation with the following case summary and management plan written by me. MDM: Saturnino 62 YOF p/w substance abuse, anxiety, depression, anemia, asthma, COPD , PUD, nephrolithiasis, HTN, HLD, hypothyroidism, chronic back pain and DJD presenting with abnormal BUN. otherwise no symptoms, abd pain, n/v, fevers or chills, dizziness, cp or sob. Vital signs wnl. EKG sinus rhythm at 89 bpm, normal intervals, nonischemic, no elevations and no Tented T waves or signs c/w hyperkalemia. Potassium 5.4, likely hemolyzed, no acute intervention warranted. Remainder of labs at baseline including anemia. No signs of infection, well appearing, doubt bleeding pathology as no sx and nontender abdomen exam. I discussed the physical exam findings, ancillary test results and final diagnoses with the patient. I answered all of the patient's questions. The patient was satisfied with the care received and felt comfortable with the discharge plan and treatment plan. The patient will return to the Emergency Department with any new, persistent or worsening symptoms. f/u PCP as outpatient. <Megan Sneed - Last Filed: 11/16/17 01:28> - HPI HPI: 11/16/17 01:29 Ms. Matamoros is a 62 year old female with past medical history of polysubstance abuse, anxiety, depression, anemia, asthma, COPD, bleeding ulcer, kidney stones , HTN, HLD, thyroid disease, chronic back pain, and degenerative disease of L1- S1 presents to the emergency department with abnormal lab result. The patient presents for evaluation for elevated BUN levels. The patient was recently discharged from hospital on 11/13/2017 after treatment for pneumonia. (+) Elevated BUN Allergies: Levofloxacin Social history: Current everyday smoker. Hx of cocaine and marijuana use. Reported use of alcohol. Surgical history: (B/L hip replacement (rt 2009; left 2012) PCP: Callie Esparza - Physicial Exam PE: 11/16/17 01:29 General: (+) sleeping. Well appearing, NAD. HEENT: NCAT, PERRL, EOMI, clear conjunctiva, anicteric, moist mucus membranes, clear oropharynx, no oral lesions.. Neck: neck supple, FROM Resp: CTAB, normal and even respirations, no respiratory distress CVS: RRR, no murmurs, 2+ peripheral pulses throughout, no peripheral edema Abdomen: (+) Old healing bruising on the abdomen. Obese. soft, NTND, no peritoneal signs. Back: nontender, normal inspection and ROM MSK: no edema, DRAKE x4, ROM intact. No clubbing or cyanosis. normal bulk and tone. Neuro: no focal neurologic deficits. alert Skin: warm and well perfused, cap refill <2 sec, normal color <Taniya Rivero - Last Filed: 11/16/17 01:30>
--- NOTE | 2017-11-18 10:43 | EKG ---
Test Reason : Blood Pressure : / mmHG Vent. Rate : 089 BPM Atrial Rate : 089 BPM P-R Int : 186 ms QRS Dur : 076 ms QT Int : 364 ms P-R-T Axes : 058 024 089 degrees QTc Int : 442 ms NORMAL SINUS RHYTHM SEPTAL INFARCT , AGE UNDETERMINED ABNORMAL ECG WHEN COMPARED WITH ECG OF 04-NOV-2017 10:49, T WAVE VARIATION Confirmed by JAIME ARMENTA MD ([id number]) on 11/18/2017 10:42:46 AM Referred By: Confirmed By:JAIME ARMENTA MD
== END 2017-11-16 02:25 ==
LOC: JER 19:50
DX: R94.4 Abnormal results of kidney function studies (principal); I12.9 Hypertensive chronic kidney disease with stage 1 through stage 4 chronic kidney disease, or unspecified chronic kidney disease; N18.9 Chronic kidney disease, unspecified; J45.909 Unspecified asthma, uncomplicated; D64.9 Anemia, unspecified; E03.9 Hypothyroidism, unspecified; F41.8 Other specified anxiety disorders; M54.5 Low back pain; G89.29 Other chronic pain; Z96.643 Presence of artificial hip joint, bilateral; Z85.43 Personal history of malignant neoplasm of ovary; Z87.01 Personal history of pneumonia (recurrent); Z88.8 Allergy status to other drugs, medicaments and biological substances
CPT/HCPCS: 36415; 80053; 85025; 93005; 93010; 99281-25

== ENCOUNTER 2017-11-25 11:27 | Emergency (ER) | payer OTHER ==
--- NOTE | 2017-11-25 12:06 | PDOC ---
History of Present Illness - General Chief Complaint: Nasal Bleeding Stated Complaint: Nasal Bleeding Time Seen by Provider: 11/25/17 12:05 - History of Present Illness Initial Comments: Jo Matamoros is a 62yo woman with a PMH of CKD, CHF, asthma, HTN, HLD, polysubstance abuse who presents today from a SNF with complaint of epistaxis. At the time she was examined, the bleeding had stopped. Ms Matamoros states that she does not normally get nosebleeds, but today she was just sitting at her f[facility] and her nose started bleeding "a lot" and would not stop, so she was sent to the ED. She denies taking any blood thinners currently. She denies any other unusual bruising or bleeding, fevers or chills, or bleeding to the point that she could not breath. She does complain of her chronic medical conditions including chronic cough and BLE edema but admits that these are not new. She has no other new complaints today. Past History - Past Medical History Allergies/Adverse Reactions: Allergies Allergy/AdvReac Type Severity Reaction Status Date / Time levofloxacin [From Levaquin] Allergy Mild Itching Verified 11/25/17 12:11 Home Medications: Ambulatory Orders Methocarbamol [Robaxin -] 500 mg PO TID PRN 11/02/17 Gabapentin [Neurontin] 300 mg PO TID #42 capsule 11/13/17 Acetaminophen 325 mg PO Q6H 11/19/17 Albuterol 2.5/Ipratropium 0.5 [Duoneb -] 1 neb IH QID 11/19/17 Alprazolam [Xanax] 0.5 mg PO TID 11/19/17 Heparin - 5,000 unit SQ TID 11/19/17 Melatonin 10 mg PO HS 11/19/17 Oxycodone HCl 5 mg PO QID 11/19/17 Pantoprazole Sodium 40 mg PO DAILY 11/19/17 Anemia: Yes Asthma: Yes Cancer: Yes (ovarian) Cardiac Disorders: Yes CVA: No COPD: Yes CHF: No DVT: No Dementia: No Diabetes: No GI Disorders: Yes (bleeding ulcer) Disorders: Yes (KIDNEY STONE;) HTN: Yes Hypercholesterolemia: Yes Kidney Stones: Yes Liver Disease: No Psychiatric Problems: Yes (ANXIETY, DEPRESSION) Seizures: No Thyroid Disease: Yes (hypothyroid) - Surgical History Abdominal Surgery: No Appendectomy: No Cardiac Surgery: No Cholecystectomy: No Lung Surgery: No Neurologic Surgery: No Orthopedic Surgery: Yes (B/L hip replacement (rt 2009; left 2012)) - Immunization History Td Vaccination: Yes TDAP Vaccination: No Immunization Up to Date: Yes - Suicide/Smoking/Psychosocial Hx Smoking Status: Yes Smoking History: Current some day smoker Years of Tobacco Use: 30 Have you smoked in the past 12 months: Yes Number of Cigarettes Smoked Daily: 4 If you are a former smoker, when did you quit?: refused booklet 07/21/14 Cigars Per Day: 20 'Breaking Loose' booklet given: 06/28/16 Hx Alcohol Use: No Drug/Substance Use Hx: No Substance Use Type: None Hx Substance Use Treatment: Yes ([facility] 2012 - did not complete) Review of Systems - Review of Systems Comments:: General: No fevers, no chills, no weight or appetite change, no malaise HEENT: No changes in vision, no changes in hearing, no congestion, no sore throat CV: No chest pain, no palpitations, +LE edema, +CHF Pulm: No SOB. +cough, +h/o asthma GI: No nausea or vomiting, no change in bowel habits, no melena : No frequency, no urgency, no dysuria. +CKD Musc: +BLE swelling, +chronic foot pain Skin: No rash, no lesions, no erythema Endo: No excessive thirst, no heat/cold intolerance Heme: No unusual bruising or bleeding, no swollen glands. See HPI Neuro: No syncope, no numbness/tingling, no focal weakness Vasc: No claudication Psych: No recent change in mood, no SI or HI. h/o anxiety, depression *Physical Exam - Physical Exam Comments: General: Comfortable, no acute distress HEENT: PERRL, EOMI, MMM, voice normal. Dried blood and irritation in right nare. No active bleeding. No blood noted around nose externally. Cards: RRR, no murmur appreciated Pulm: Comfortable on room air. No wheezing or crackles noted but loud upper airway noise Abd: Soft, nontender, nondistended Ext: Atraumatic. B/L pedal edema. Vasc: Extremities WWP. Neuro: A&Ox3, CN grossly intact, normal speech, motor/sensory grossly intact and symmetric Psych: Mood appropriate to situation Medical Decision Making - Medical Decision Making 11/25/17 12:38 Jo Matamoros is a 62yo woman with a PMH of CKD, CHF, asthma, HTN, HLD, polysubstance abuse who presents today from a SNF with complaint of epistaxis that had already stopped by the time she was seen in the ED. She has no additional new complaints but does note her chronic medical conditions. - Will monitor in the ED for return of bleeding - No intervention necessary for bleed that has already resolved - Will discharge back to SNF with return precautions for epistaxis. Seen and discussed with Dr Alonso. *DC/Admit/Observation/Transfer Diagnosis at time of Disposition: Anterior epistaxis - Discharge Dispostion Disposition: HOME Condition at time of disposition: Good Decision to Admit order: No - Referrals Referrals: Lisette White MD [Primary Care Provider] - - Patient Instructions Printed Discharge Instructions: DI for Nosebleed Additional Instructions: Discharge Instructions: - You were seen in the ED for a nosebleed - The bleeding stopped on its own without any need for intervention - Please return to the ED or see your doctor if you have a nose bleed that impacts your breathing or does not stop with 5-10 minutes of consistent nasal pressure. If you apply pressure, hold the soft part of your nose firmly for at least 5 minutes before releasing it. Do not release the pressure to check on the bleeding. Continue for 5 minutes without letting go. You should repeat this several times before seeking medical care. - Post Discharge Activity
--- NOTE | 2017-11-25 12:38 | PDOC ---
Attending Attestation - Resident Resident Name: BetovuKelsey - ED Attending Attestation I have performed the following: I have examined & evaluated the patient, The case was reviewed & discussed with the resident, I agree w/resident's findings & plan, Exceptions are as noted - HPI HPI: 11/25/17 12:35 62 year old female c/ hx of CKD, COPD, CHF, substance abuse p/w resolved epistaxis. The patient reported that she was sitting down and doing nothing in particular when she had a spontaneous R sided epistaxis. Pt was sent to the ED but the epistaxis resolved in the process. The patient denies any symptoms and feels well. Has no more bleeding. Does not take anticoagulants. Denies trauma to the nose. - Physicial Exam PE: 11/25/17 12:36 GENERAL: Awake, alert, and fully oriented, in no acute distress HEAD: No signs of trauma EYES: PERRLA, EOMI, sclera anicteric, conjunctiva clear ENT: Auricles normal inspection, hearing grossly normal, nares patent, Moist mucosa. Mild irritation to R medial septum, but no active bleeding. NECK: Normal ROM, supple EXTREMITIES: Normal range of motion, no edema. No clubbing or cyanosis. No cords, erythema, or tenderness NEUROLOGICAL: Cranial nerves II through XII grossly intact. Normal speech, normal gait SKIN: Warm, Dry, normal turgor, no rashes or lesions noted. - Medical Decision Making 11/25/17 12:37 Vital Signs Temp Pulse Resp BP Pulse Ox 98.4 F 88 16 133/85 94 L 11/25/17 11:27 11/25/17 11:27 11/25/17 11:27 11/25/17 11:27 11/25/17 11:27 Resolved epistaxis. Patient has been observed for approx 1 hour with no symptoms. Will discharge back to SNF. 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 The patient reports that she was at home just sitting down when her right nostril began to bleed. The patient denies any other symptoms. She denies any fever, chills, nausea, vomit, diarrhea ,constipation or urinary symptoms. The patient denies any chest pain, shortness of breath, headache and dizziness. The patient denies any other complaints PCP: Dr. Metz Documentation prepared by Veena Ornelas, acting as medical affairs director for Bandar Alonso MD. 11/25/17 12:52 <Veena Ornelas - Last Filed: 11/25/17 12:53>
[2017-11-25 12:46] VITALS: BP 133/85; PULSE 88; TEMP 98.4; BMI 29.2
== END 2017-11-25 14:28 | disposition home or self-care (01) ==
LOC: JER 11:27
DX: R04.0 Epistaxis (principal); I10 Essential (primary) hypertension; E78.5 Hyperlipidemia, unspecified; F19.10 Other psychoactive substance abuse, uncomplicated; I50.9 Heart failure, unspecified
CPT/HCPCS: 99281-25

== ENCOUNTER 2017-12-09 10:50 | Inpatient (IN) | payer OTHER ==
--- NOTE | 2017-12-09 12:03 | PDOC ---
History of Present Illness - General Chief Complaint: Nausea/Vomiting Stated Complaint: NAUSEA Time Seen by Provider: 12/09/17 12:01 History Source: Patient - History of Present Illness Initial Comments: The patient is a 62F with a history of chronic arthritic pain, CKD, and HTN who presents with 1 day of worsening LLQ abdominal pain that radiates towards her back that is associated with nausea and vomiting x3 yesterday. No emesis today. The patient reports she has not had pain like this before. She endorses chills. Denies fevers, chest pain, SOB, diarrhea, or changes in sensation. She denies sick contacts. Her PCP is at [facility] but she does not know his name 12/09/17 13:05 Past History - Past Medical History Allergies/Adverse Reactions: Allergies Allergy/AdvReac Type Severity Reaction Status Date / Time levofloxacin [From Levaquin] Allergy Mild Itching Verified 12/09/17 11:48 Home Medications: Ambulatory Orders Methocarbamol [Robaxin -] 500 mg PO TID PRN 11/02/17 Gabapentin [Neurontin] 300 mg PO TID #42 capsule 11/13/17 Acetaminophen 325 mg PO Q6H 11/19/17 Albuterol 2.5/Ipratropium 0.5 [Duoneb -] 1 neb IH QID 11/19/17 Alprazolam [Xanax] 0.5 mg PO TID PRN 11/19/17 Heparin - 5,000 unit SQ TID 11/19/17 Melatonin 10 mg PO HS 11/19/17 Oxycodone HCl 5 mg PO QID PRN 11/19/17 Pantoprazole Sodium 40 mg PO DAILY 11/19/17 Aspirin Coated [Ecotrin -] 325 mg PO DAILY 11/25/17 Anemia: Yes Asthma: Yes Cancer: Yes (ovarian) Cardiac Disorders: Yes CVA: No COPD: Yes CHF: No DVT: No Dementia: No Diabetes: No GI Disorders: Yes (bleeding ulcer) Disorders: Yes (KIDNEY STONE;) HTN: Yes Hypercholesterolemia: Yes Kidney Stones: Yes Liver Disease: No Psychiatric Problems: Yes (ANXIETY, DEPRESSION) Seizures: No Thyroid Disease: Yes (hypothyroid) - Surgical History Abdominal Surgery: No Appendectomy: No Cardiac Surgery: No Cholecystectomy: No Lung Surgery: No Neurologic Surgery: No Orthopedic Surgery: Yes (B/L hip replacement (rt 2009; left 2012)) - Immunization History Td Vaccination: Yes TDAP Vaccination: No Immunization Up to Date: Yes - Suicide/Smoking/Psychosocial Hx Smoking Status: Yes Smoking History: Current some day smoker Years of Tobacco Use: 30 Have you smoked in the past 12 months: Yes Number of Cigarettes Smoked Daily: 4 If you are a former smoker, when did you quit?: refused booklet 07/21/14 Cigars Per Day: 20 Information on smoking cessation initiated: No 'Breaking Loose' booklet given: 06/28/16 Hx Alcohol Use: No Drug/Substance Use Hx: No Substance Use Type: None Hx Substance Use Treatment: Yes ([facility] 2013 - did not complete) Review of Systems - Review of Systems Able to Perform ROS?: Yes Comments:: GENERAL/CONSTITUTIONAL: No fever or chills. No weakness HEAD, EYES, EARS, NOSE AND THROAT: No change in vision. No ear pain or discharge. No sore throat CARDIOVASCULAR: No chest pain or shortness of breath RESPIRATORY: No cough, wheezing, or hemoptysis GASTROINTESTINAL: per HPI GENITOURINARY: No dysuria, frequency, or change in urination. MUSCULOSKELETAL: +chronic back pain SKIN: No rash NEUROLOGIC: No headache, vertigo, loss of consciousness, or change in strength/ sensation ENDOCRINE: No increased thirst. No abnormal weight change HEMATOLOGIC/LYMPHATIC: No anemia, easy bleeding, or history of blood clots ALLERGIC/IMMUNOLOGIC: No hives or skin allergy 12/09/17 13:08 Is the patient limited Wallisian proficient: No *Physical Exam - Vital Signs Last Vital Signs Temp Pulse Resp BP Pulse Ox 97.5 F L 84 18 138/75 98 12/09/17 11:02 12/09/17 11:02 12/09/17 11:02 12/09/17 11:02 12/09/17 11:02 - Physical Exam Comments: GENERAL: Awake, alert, and fully oriented, in no acute distress HEAD: No signs of trauma, normocephalic, atraumatic EYES: PERRL, EOMI, sclera anicteric, conjunctiva clear ENT: Hearing grossly normal, nares patent, oropharynx clear without exudates. Moist mucosa NECK: Normal ROM, supple LUNGS: Mild diffuse b/l crackles; No distress, speaks full sentences, clear to auscultation bilaterally HEART:Regular rate and rhythm, normal S1 and S2, no murmurs appreciated, peripheral pulses normal and equal bilaterally ABDOMEN: Soft, mild diffuse TTP also with localized LLQ pain; with normoactive bowel sounds. No guarding, no rebound. No masses EXTREMITIES : Normal inspection, Normal range of motion, no edema. No clubbing or cyanosis NEUROLOGICAL: Cranial nerves II through XII grossly intact. Normal speech, no focal sensorimotor deficits SKIN: Warm, Dry 12/09/17 13:08 ED Treatment Course - LABORATORY CBC & Chemistry Diagram: 12/09/17 13:08 12/09/17 14:17 Medical Decision Making - Medical Decision Making The patient is a 62F with a history of HTN, chronic pain, and CKD who presents with LLQ abdominal pain and lower back pain associated with nausea for 1 day ED Course CMP, CBC, UA, UCx CT A&P non-con, CXR, ECG 12/09/17 13:08 CXR without acute pathology Patient with acute on chronic CKD/LUCIEN, Cr 5.4 Patient hyponatremic and hypochloremic, will give 1L NS Mild leukocytosis, otherwise no concern for infectious process 12/09/17 17:00 Plan for admission to acute on chronic CKD/LUCIEN and pain control Dispo: Admit under Dr. White 12/09/17 21:14 12/09/17 21:20 *DC/Admit/Observation/Transfer Diagnosis at time of Disposition: CKD (chronic kidney disease) stage 4, GFR 15-29 ml/min Abdominal pain Qualifiers: Abdominal location: left lower quadrant Qualified Code(s): R10.32 - Left lower quadrant pain - Discharge Dispostion Condition at time of disposition: Guarded Decision to Admit order: Yes - Referrals - Patient Instructions - Post Discharge Activity
--- NOTE | 2017-12-09 12:03 | PDOC ---
Attending Attestation - HPI HPI: 12/09/17 12:32 The patient is a 62 yo female with a past medical history of asthma, anemia, CKD, chronic back pain, L4,L5 herniated disc, and recent admission 11/02-11/13 for pneumonia w/ subsequent discharge to rehab facility who presents to the emergency department with one day of low back pain which wraps around from her bilateral lower abdominal regions, as well as, associated lesser pain all over . She also reports a few episodes of nausea and vomiting yesterday, but denies emesis today. The patient denies chest pain, shortness of breath, headache and dizziness. The patient denies fever, chills, diarrhea and constipation. The patient denies dysuria, frequency, urgency and hematuria. Allergies: levofloxacin Social history: No reported alcohol use. Cannabis use. Current everyday smoker; ppd. PCP - Dr. Lisette White - Physicial Exam PE: 12/09/17 12:33 GENERAL: Awake, alert, and fully oriented, in no acute distress HEAD: No signs of trauma EYES: PERRLA, EOMI, sclera anicteric, conjunctiva clear ENT: Auricles normal inspection, hearing grossly normal, nares patent, oropharynx clear without exudates. Moist mucosa NECK: Normal ROM, supple, no lymphadenopathy, JVD, or masses LUNGS: (+) diffuse crackles bilaterally. Good air entry. Breath sounds equal, No wheezes. HEART: Regular rate and rhythm, normal S1 and S2, no murmurs, rubs or gallops ABDOMEN: (+) diffuse abdominal tenderness with deep palpation. no rebound or guarding. Soft, nontender, normoactive bowel sounds. No masses EXTREMITIES: Normal range of motion, no edema. No clubbing or cyanosis. No cords, erythema, or tenderness NEUROLOGICAL: Cranial nerves II through XII grossly intact. Normal speech, SKIN: Warm, Dry, normal turgor, no rashes or lesions noted. - Medical Decision Making 12/09/17 12:34 Documentation prepared by Greta Almonte, acting as medical reception for Priya Akhtar MD, 12/09/17 15:30 Dr. White was called at this time to request admission of this patient.
[2017-12-09] MEDS ORDERED: ONDANSETRON 4 MG/2 ML VIAL IVPUSH ONE (12:28)
[2017-12-09] MEDS ORDERED: ACETAMINOPHEN 1000 MG/100 ML VIAL (NON FORMULARY) IVPB ONE (12:28)
[2017-12-09 13:37] LABS: HEMATOCRIT 33.9 % (32.4-45.2); HEMOGLOBIN 11.2 GM/dL (10.7-15.3); MCH 27.9 pg (25.7-33.7); MCHC 33.1 g/dl (32.0-36.0); MEAN CELL VOLUME 84.3 fl (80-96); PLATELET COUNT 497 K/MM3 (134-434); RBC 4.02 M/mm3 (3.60-5.2); RDW 17.9 % (11.6-15.6); WHITE BLOOD COUNT 11.1 K/mm3 (4.0-10.0)
[2017-12-09 14:47] LABS: ALBUMIN 3.7 g/dl (3.4-5.0); ANION GAP 16 (8-16); BLOOD UREA NITROGEN 82 mg/dL (7-18); CALCIUM 8.9 mg/dL (8.5-10.1); CHLORIDE 94 mmol/L (98-107); CO2 18 mmol/L (21-32); CREATININE 5.4 mg/dL (0.55-1.02); GLUCOSE,RANDOM 115 mg/dL (74-106); SGPT/ALT 15 U/L (12-78); SODIUM 128 mmol/L (136-145)
[2017-12-09 14:49] LABS: ALK PHOS 231 U/L (45-117); BILIRUBIN,TOTAL 0.6 mg/dL (0.2-1.0); TOT PROT 7.7 g/dl (6.4-8.2)
[2017-12-09 14:55] LABS: POTASSIUM 3.6 mmol/L (3.5-5.1); SGOT/AST 23 U/L (15-37)
[2017-12-09] MEDS ORDERED: SODIUM CHLORIDE 0.9% 500 ML INFUS.BAG IV ONE (16:20)
--- NOTE | 2017-12-09 16:36 | CONSULT ---
Consult Consult Specialty:: Nephrology Reason for Consultation:: CKD with LUCIEN - History of Present Illness Chief Complaint: low back pain History of Present Illness: Pt is a 62 year old female with pmhx of CKD, HTN, non compliance, and chronic back pain who presents to the ER with lower back pain that wraps around her back. She has not followed up with me since her last discharge. Her renal function has been worsening. She denies chest pain. She denies dysuria or hematuria. She denies shortness of breath. She did have a few episodes of vomiting yesterday. - History Source History Provided By: Patient, Medical Record - Past Medical History DYE WEIGHER: Yes: Peripheral Neuropathy Cardio/Vascular: Yes: HTN, Hyperlipdemia Pulmonary: Yes: COPD Gastrointestinal: Yes: Gastritis Renal/: Yes: Renal Inusuff ...LMP: 07/25/12 Psych: Yes: Anxiety, Depression Musculoskeletal: Yes: Chronic low back pain - Past Surgical History Past Surgical History: Yes: Joint Replacement (hip replacement) - Alcohol/Substance Use Hx Alcohol Use: No History of Substance Use: reports: Marijuana - Smoking History Smoking history: Current some day smoker Have you smoked in the past 12 months: Yes Aproximately how many cigarettes per day: 4 If you are a former smoker, when did you quit?: refused booklet 07/21/14 - Social History Usual Living Arrangement: With Child ADL: Independent Occupation: not working, SSI History of Recent Travel: No Home Medications - Allergies Allergies/Adverse Reactions: Allergies Allergy/AdvReac Type Severity Reaction Status Date / Time levofloxacin [From Levaquin] Allergy Mild Itching Verified 12/09/17 11:48 - Home Medications Home Medications: Ambulatory Orders Methocarbamol [Robaxin -] 500 mg PO TID PRN 11/02/17 Gabapentin [Neurontin] 300 mg PO TID #42 capsule 11/13/17 Acetaminophen 325 mg PO Q6H 11/19/17 Albuterol 2.5/Ipratropium 0.5 [Duoneb -] 1 neb IH QID 11/19/17 Alprazolam [Xanax] 0.5 mg PO TID PRN 11/19/17 Heparin - 5,000 unit SQ TID 11/19/17 Melatonin 10 mg PO HS 11/19/17 Oxycodone HCl 5 mg PO QID PRN 11/19/17 Pantoprazole Sodium 40 mg PO DAILY 11/19/17 Aspirin Coated [Ecotrin -] 325 mg PO DAILY 11/25/17 Family Disease History - Family Disease History Family Disease History: Other: Father (alive), Mother (alivee), Sister (alive), Son (23 yo old - alive - healthy) Review of Systems - Review of Systems Constitutional: reports: Malaise Eyes: reports: No Symptoms HENT: reports: No Symptoms Neck: reports: No Symptoms Cardiovascular: reports: No Symptoms Respiratory: reports: No Symptoms Gastrointestinal: reports: Vomiting Genitourinary: reports: No Symptoms Musculoskeletal: reports: Back Pain Neurological: reports: No Symptoms Endocrine: reports: No Symptoms Hematology/Lymphatic: reports: No Symptoms Psychiatric: reports: No Symptoms Physical Exam Vital Signs: Vital Signs Temperature 97.5 F L 12/09/17 11:02 Pulse Rate 84 12/09/17 11:02 Respiratory Rate 18 12/09/17 11:02 Blood Pressure 138/75 12/09/17 11:02 O2 Sat by Pulse Oximetry (%) 98 12/09/17 11:02 Constitutional: Yes: Calm Eyes: Yes: Conjunctiva Clear HENT: Yes: Atraumatic Neck: Yes: Supple Cardiovascular: Yes: S1, S2 Respiratory: Yes: CTA Bilaterally Gastrointestinal: Yes: Soft Renal/: Yes: WNL Musculoskeletal: Yes: WNL Edema: No Neurological: Yes: Oriented Psychiatric: Yes: Oriented Labs: CBC, BMP 12/09/17 13:08 12/09/17 14:17 Laboratory Tests 11/08/17 11/09/17 11/12/17 15:15 09:25 18:00 WBC Hgb Sodium Potassium BUN Creatinine 3.3 H Random Glucose [place] LC, Quant 44.4 H Free Lambda LC, Quant 31.9 H Free [place]/Lambda Ratio 1.39 Hep Bs Antigen Negative Hep Bs Antibody Non reactive Hep B Core Total Ab Negative 11/13/17 11/15/17 11/19/17 08:30 22:45 17:11 WBC Hgb Sodium Potassium BUN Creatinine 3.2 H 3.8 H 4.6 H Random Glucose [place] LC, Quant Free [place]ambda LC, Quant [place]/Lambda Ratio Hep Bs Antigen Hep Bs Antibody Hep B Core Total Ab 12/09/17 12/09/17 13:08 14:17 WBC 11.1 H Hgb 11.2 Sodium 128 L Potassium 3.6 BUN 82 H Creatinine 5.4 H Random Glucose 115 H [place] LC, Quant Free [place]ambda LC, Quant [place]/Lambda Ratio Hep Bs Antigen Hep Bs Antibody Hep B Core Total Ab Problem List - Problems (1) CKD (chronic kidney disease) Code(s): N18.9 - CHRONIC KIDNEY DISEASE, UNSPECIFIED Assessment/Plan Impression 1. CKD with acute component 2. COPD 3. chronic back pain on opioids 4. anemia 5. anxiety 6. PNA 7. chf diastolic 8. hyponatremia Plan - check renal ultrasound - start gently hydration - repeat labs in am - PO bicarb - no acute indication for HD - back pain workup per primary team Dr Coe
[2017-12-09] MEDS ORDERED: ONDANSETRON 4 MG/2 ML VIAL IVPUSH PRN (18:55)
[2017-12-09] MEDS: D5-1/2NS+20 MEQ KCL - 20 MEQ/1,000 ML INFUS.BAG IV SCH (20:00)
[2017-12-09] MEDS: ALBUTEROL SO4 2.5/IPRATROPIUM 0.5 INH SOL 3 ML VIAL.NEB. NEB SCH (20:30)
[2017-12-09] MEDS ORDERED: ALBUTEROL SO4 2.5/IPRATROPIUM 0.5 INH SOL 3 ML VIAL.NEB. NEB ONE (20:51)
[2017-12-09 20:53] LABS: URINE APPEARANCE CLEAR; URINE BILIRUBIN NEGATIVE (<2.0 mg/dL); URINE COLOR STRAW; URINE GLUCOSE (UA) 1+ (NEGATIVE); URINE KETONE NEGATIVE (NEGATIVE); URINE LEUK ESTERASE NEGATIVE (NEGATIVE); URINE NITRITE NEGATIVE (NEGATIVE); URINE UROBILINOGEN NEGATIVE mg/dL (0.2-1.0)
[2017-12-09 21:03] LABS: EPI CELLS RARE /HPF (FEW); URINE BACTERIA RARE /hpf (NONE SEEN); URINE MUCUS RARE; URINE PROTEIN 3+ (NEGATIVE)
[2017-12-09 21:32] LABS: AMYLASE 94 U/L (25-115)
[2017-12-09 21:33] LABS: LIPASE 468 U/L (73-393)
[2017-12-09] MEDS: MELATONIN 5 MG TABLETS PO SCH (22:30)
[2017-12-09] MEDS: HEPARIN NA (PORCINE) 5,000 UNITS/ML 1ML VIAL SQ SCH (22:30)
[2017-12-09] MEDS: PANTOPRAZOLE SODIUM 40 MG VIAL IVPUSH SCH (22:30)
[2017-12-09] MEDS: GABAPENTIN 300 MG CAPSULE (FP) PO SCH (22:30)
[2017-12-09] MEDS ORDERED: HEPARIN NA (PORCINE) 5,000 UNITS/ML 1ML VIAL ONE (23:31)
[2017-12-09] MEDS ORDERED: GABAPENTIN 100 MG CAPSULE (FP) ONE ×2 (23:31→23:51)
[2017-12-09] MEDS ORDERED: PANTOPRAZOLE SODIUM 40 MG/100 ML BAG IVPB ONE (23:31)
[2017-12-10] MEDS ORDERED: oxyCODONE HCL 5 MG TABLET ONE (05:30)
[2017-12-10] MEDS: oxyCODONE HCL 5 MG TABLET PO PRN (05:30)
[2017-12-10] MEDS: HEPARIN NA (PORCINE) 5,000 UNITS/ML 1ML VIAL SQ SCH ×2 (06:15→13:35)
[2017-12-10] MEDS: GABAPENTIN 300 MG CAPSULE (FP) PO SCH ×3 (06:15→23:59)
[2017-12-10] MEDS ORDERED: GABAPENTIN 100 MG CAPSULE (FP) ONE (06:26)
[2017-12-10] MEDS ORDERED: ALBUTEROL SO4 2.5/IPRATROPIUM 0.5 INH SOL 3 ML VIAL.NEB. NEB ONE (07:25)
[2017-12-10 07:34] LABS: BASO % 0.7 % (0-2.0); EOS % 2.1 % (0-4.5); HEMATOCRIT 29.3 % (32.4-45.2); HEMOGLOBIN 10.2 GM/dL (10.7-15.3); MCH 29.1 pg (25.7-33.7); MCHC 34.8 g/dl (32.0-36.0); MEAN CELL VOLUME 83.7 fl (80-96); MEAN PLT VOLUME 8.3 fl (7.5-11.1); MONO % 9.4 % (3.8-10.2); NEUT % 67.8 % (42.8-82.8); PLATELET COUNT 449 K/MM3 (134-434); RDW 17.3 % (11.6-15.6); WHITE BLOOD COUNT 9.3 K/mm3 (4.0-10.0)
[2017-12-10] MEDS: ALBUTEROL SO4 2.5/IPRATROPIUM 0.5 INH SOL 3 ML VIAL.NEB. NEB SCH ×4 (07:42→20:50)
[2017-12-10 08:10] LABS: ALBUMIN 3.2 g/dl (3.4-5.0); ANION GAP 14 (8-16); BILIRUBIN,TOTAL 0.5 mg/dL (0.2-1.0); BLOOD UREA NITROGEN 81 mg/dL (7-18); CALCIUM 8.9 mg/dL (8.5-10.1); CHLORIDE 102 mmol/L (98-107); CO2 20 mmol/L (21-32); CREATININE 5.8 mg/dL (0.55-1.02); GLUCOSE,RANDOM 113 mg/dL (74-106); SGOT/AST 13 U/L (15-37); SGPT/ALT 14 U/L (12-78); SODIUM 136 mmol/L (136-145); TOT PROT 6.8 g/dl (6.4-8.2)
[2017-12-10 08:11] LABS: ALK PHOS 190 U/L (45-117)
[2017-12-10 08:14] LABS: POTASSIUM 2.9 mmol/L (3.5-5.1)
--- NOTE | 2017-12-10 10:47 | HP ---
Admitting History and Physical - Primary Care Physician PCP: Lisette White - Admission Chief Complaint: Abdominal pain. Back pain. Vomiting History of Present Illness: The patient is a 62 yo female with a past medical history of asthma, anemia, CKD, chronic back pain, L4,L5 herniated disc, and recent admission 11/02-11/13 for pneumonia w/ subsequent discharge to rehab facility who presents to the emergency department with one day of low back pain which wraps around from her bilateral lower abdominal regions, as well as, associated lesser pain all over . She also reports a few episodes of nausea and vomiting yesterday, but denies emesis today. The patient denies chest pain, shortness of breath, headache and dizziness. The patient denies fever, chills, diarrhea and constipation. The patient denies dysuria, frequency, urgency and hematuria. NAD, Complaining of back pain, denies abdominal pain Mild nausea, no vomiting at this time AXOX 2, knows her name and and that she is at [facility] Walks with walker/cane at home History Source: Patient, Medical Record Limitations to Obtaining History: No Limitations - Past Medical History [employer]: Yes: Peripheral Neuropathy Cardiovascular: Yes: HTN, Hyperlipdemia Pulmonary: Yes: COPD Gastrointestinal: Yes: Gastritis Renal/: Yes: Renal Inusuff ...LMP: 07/25/12 Heme/Onc: Yes: Anemia Psych: Yes: Anxiety, Depression Musculoskeletal: Yes: Chronic low back pain - Past Surgical History Past Surgical History: Yes: Joint Replacement (hip replacement) - Smoking History Smoking history: Current some day smoker Have you smoked in the past 12 months: Yes Aproximately how many cigarettes per day: 4 If you are a former smoker, when did you quit?: refused booklet 07/21/14 - Alcohol/Substance Use Hx Alcohol Use: No History of Substance Use: reports: Marijuana - Social History ADL: Independent Occupation: not working, SSI History of Recent Travel: No Home Medications - Allergies Allergies/Adverse Reactions: Allergies Allergy/AdvReac Type Severity Reaction Status Date / Time levofloxacin [From Levaquin] Allergy Mild Itching Verified 12/09/17 11:48 - Home Medications Home Medications: Ambulatory Orders Methocarbamol [Robaxin -] 500 mg PO TID PRN 11/02/17 Gabapentin [Neurontin] 300 mg PO TID #42 capsule 11/13/17 Acetaminophen 325 mg PO Q6H 11/19/17 Albuterol 2.5/Ipratropium 0.5 [Duoneb -] 1 neb IH QID 11/19/17 Alprazolam [Xanax] 0.5 mg PO TID PRN 11/19/17 Heparin - 5,000 unit SQ TID 11/19/17 Melatonin 10 mg PO HS 11/19/17 Oxycodone HCl 5 mg PO QID PRN 11/19/17 Pantoprazole Sodium 40 mg PO DAILY 11/19/17 Aspirin Coated [Ecotrin -] 325 mg PO DAILY 11/25/17 Family Disease History - Family Disease History Family Disease History: Other: Father (alive), Mother (alivee), Sister (alive), Son (23 yo old - alive - healthy) Review of Systems - Review of Systems Constitutional: reports: No Symptoms Eyes: reports: No Symptoms HENT: reports: No Symptoms Neck: reports: No Symptoms Cardiovascular: reports: No Symptoms Respiratory: reports: No Symptoms Gastrointestinal: reports: No Symptoms Genitourinary: reports: No Symptoms Breasts: reports: No Symptoms Reported Musculoskeletal: reports: Back Pain Integumentary: reports: No Symptoms Neurological: reports: No Symptoms Endocrine: reports: No Symptoms Hematology/Lymphatic: reports: No Symptoms Psychiatric: reports: No Symptoms Physical Examination Vital Signs: Vital Signs Temperature 98.6 F 12/10/17 09:43 Pulse Rate 68 12/10/17 09:43 Respiratory Rate 18 12/10/17 09:43 Blood Pressure 122/77 12/10/17 09:43 O2 Sat by Pulse Oximetry (%) 98 12/10/17 09:43 Constitutional: Yes: Well Nourished, No Distress, Calm Cardiovascular: Yes: Regular Rate and Rhythm Respiratory: Yes: Regular Gastrointestinal: Yes: Normal Bowel Sounds, Soft, Tenderness (RLQ) Musculoskeletal: Yes: WNL Extremities: Yes: WNL Edema: No Peripheral Pulses WNL: Yes Neurological: Yes: Alert, Confusion Psychiatric: Yes: Alert Labs: CBC, BMP 12/10/17 06:50 12/10/17 06:50 Imaging - Results Cat Scan: Report Reviewed Problem List - Problems (1) Hypokalemia Assessment/Plan: -KCL 10 meq x 3 -Nephrology on board -D51/2 NS + KCL 20 meq @ 83 mls/hr -repeat labs in AM -UC pending Code(s): E87.6 - HYPOKALEMIA (2) Abdominal pain Assessment/Plan: -resolved -CT abd/pelvis reviewed -elevated lipase -Awaiting gI consult -RLQ pain only on palpation Code(s): R10.9 - UNSPECIFIED ABDOMINAL PAIN Qualifiers: Abdominal location: left lower quadrant Qualified Code(s): R10.32 - Left lower quadrant pain (3) CKD (chronic kidney disease) Assessment/Plan: -Nephrology consult -IVF -Monitor daily labs Code(s): N18.9 - CHRONIC KIDNEY DISEASE, UNSPECIFIED (4) Anemia Assessment/Plan: -hx of SATHISH,Thyroid disorder -recheck Iron, thyroid profile, B12,folate and stool OB Code(s): D64.9 - ANEMIA, UNSPECIFIED Qualifiers: Anemia type: unspecified cause (5) Anxiety and depression Assessment/Plan: -On Xanax -will start her on low dose cymbalta-to help with depression, anxiety and chronic pain Code(s): F41.8 - OTHER SPECIFIED ANXIETY DISORDERS (6) Back pain Code(s): M54.9 - DORSALGIA, UNSPECIFIED Qualifiers: Back pain location: low back pain Chronicity: chronic Back pain laterality: bilateral Sciatica presence: without sciatica Qualified Code(s) : M54.5 - Low back pain; G89.29 - Other chronic pain (7) Acute on chronic renal failure Assessment/Plan: -nephrology consult -IVF -Daily labs Code(s): N17.9 - ACUTE KIDNEY FAILURE, UNSPECIFIED; N18.9 - CHRONIC KIDNEY DISEASE, UNSPECIFIED Assessment/Plan see problem list DVT prophylaxis Physical therapy Dispo-likely SNF when ready
[2017-12-10] MEDS ORDERED: ONDANSETRON 4 MG/2 ML VIAL IVPB PRN (11:05)
[2017-12-10 11:54] LABS: LIPASE 578 U/L (73-393)
[2017-12-10] MEDS: D5-1/2NS+20 MEQ KCL - 20 MEQ/1,000 ML INFUS.BAG IV SCH (12:35)
[2017-12-10] MEDS: ASPIRIN 325 MG ENTERIC COATED TABLET (FP) PO SCH (12:37)
[2017-12-10] MEDS: PANTOPRAZOLE SODIUM 40 MG VIAL IVPUSH SCH (12:38)
[2017-12-10] MEDS: DULoxetine HCL 30 MG CAPSULE.DR (FP) PO SCH (12:38)
[2017-12-10] MEDS: KCL 10 MEQ IVPB 10 MEQ/100 ML INFUS.BAG IVPB SCH ×3 (12:44→14:54)
[2017-12-10 13:23] VITALS: BMI 24.1
--- NOTE | 2017-12-10 14:36 | CONSULT ---
Consult - text type - Consultation Consultation Note: NEUROSURGERY CONSULTATION Jo Matamoros is a 62 year old female who has a history of L1 compression fracture treated with percutaneous cement augmentation who presents with severe low back pain for one week. Her pain has a significant mechanical component and she feels that she cannot get up from bed although she is moving her legs well. There is no recent imaging. Prior CT shows significant osteopenia with L1 wedge fracture and cement. There is Lumbar degenerative scoliosis with lateral listhesis, coronal curvature and sclerosis of endplates. MRI from 2016 demonstrates the L1 compression fracture and multilevel degenerative disease. Given her severe pain and relative incapacitation with known significant spinal degenerative disease, imaging would be reasonable to develop a plan of care. Recommend MRI Lumbar (without contrast) Pain control with narcotics (consider Pain Management) Will follow
--- NOTE | 2017-12-10 20:21 | PN ---
Progress Note, Physician History of Present Illness: Pt seen and examined at bedside. She is awake and alert. She feels that the pain is improved. We discussed her renal failure and talked about dialysis. Her renal function is worsening and I encouraged at least fistula placement. She may need HD during this admission. - Current Medication List Current Medications: Active Medications Albuterol/Ipratropium (Duoneb -) 1 amp NEB RQID [facility] Last Admin: 12/10/17 15:32 Dose: 1 amp Alprazolam (Xanax -) 0.5 mg PO Q8H PRN PRN Reason: anxeity Aspirin (Ecotrin -) 325 mg PO DAILY [facility] Last Admin: 12/10/17 12:37 Dose: 325 mg Docusate Sodium (Colace -) 300 mg PO [facility] Duloxetine HCl (Cymbalta -) 30 mg PO DAILY [facility] Last Admin: 12/10/17 12:38 Dose: 30 mg Gabapentin (Neurontin -) 300 mg PO TID [facility] Last Admin: 12/10/17 13:35 Dose: 300 mg Heparin Sodium (Porcine) (Heparin -) 5,000 unit SQ TID [facility] Last Admin: 12/10/17 13:35 Dose: 5,000 unit Potassium Chloride/Dextrose/Sod Cl (D5-1/2ns+20 Meq Kcl -) 20 meq in 1,000 mls @ 83 mls/hr IV ASDIR [facility] Last Admin: 12/10/17 12:35 Dose: 83 mls/hr Melatonin (Melatonin) 10 mg PO HS [facility] Last Admin: 12/09/17 22:30 Dose: 10 mg Ondansetron HCl (Zofran Injection) 4 mg IVPB Q8H PRN PRN Reason: NAUSEA Oxycodone HCl (Roxicodone -) 5 mg PO Q6H PRN PRN Reason: PAIN 4-6 Last Admin: 12/10/17 05:30 Dose: 5 mg Pantoprazole Sodium (Protonix Iv) 40 mg IVPUSH BID [facility] Last Admin: 12/10/17 12:38 Dose: 40 mg - Objective Vital Signs: Vital Signs Temperature 97.8 F 12/10/17 16:20 Pulse Rate 88 12/10/17 16:20 Respiratory Rate 18 12/10/17 16:20 Blood Pressure 131/70 12/10/17 16:20 O2 Sat by Pulse Oximetry (%) 98 08/21/18 14:43 Constitutional: Yes: Calm Eyes: Yes: Conjunctiva Clear HENT: Yes: Atraumatic Neck: Yes: Supple Cardiovascular: Yes: S1, S2 Respiratory: Yes: CTA Bilaterally Gastrointestinal: Yes: Soft Genitourinary: Yes: WNL Musculoskeletal: Yes: Back Pain Edema: Yes Edema: LLE: Trace, RLE: Trace Neurological: Yes: Oriented Psychiatric: Yes: Oriented Labs: CBC, BMP 12/10/17 06:50 12/10/17 06:50 Problem List - Problems (1) CKD (chronic kidney disease) Code(s): N18.9 - CHRONIC KIDNEY DISEASE, UNSPECIFIED Assessment/Plan Current Medications Generic Name Dose Route Start Last Admin Trade Name Freq PRN Reason Stop Dose Admin Albuterol/Ipratropium 1 amp 12/09/17 20:00 12/10/17 15:32 Duoneb - NEB 1 amp RQID JACKY Administration Alprazolam 0.5 mg 12/09/17 18:54 Xanax - PO Q8H PRN anxeity Aspirin 325 mg 12/10/17 10:00 12/10/17 12:37 Ecotrin - PO 325 mg DAILY JACKY Administration Docusate Sodium 300 mg 12/10/17 22:00 Colace - PO HS JACKY Duloxetine HCl 30 mg 12/10/17 11:15 12/10/17 12:38 Cymbalta - PO 30 mg DAILY JACKY Administration Gabapentin 300 mg 12/09/17 22:00 12/10/17 13:35 Neurontin - PO 300 mg TID JACKY Administration Heparin Sodium (Porcine) 5,000 unit 12/09/17 22:00 12/10/17 13:35 Heparin - SQ 5,000 unit TID JACKY Administration Potassium Chloride/Dextrose/Sod Cl 20 meq in 1,000 mls @ 83 mls/hr 12/09/17 19 :00 12/10/17 12:35 D5-1/2ns+20 Meq Kcl - IV 83 mls/hr ASDIR JACKY Administration Melatonin 10 mg 12/09/17 22:00 12/09/17 22:30 Melatonin PO 10 mg HS JACKY Administration Ondansetron HCl 4 mg 12/10/17 11:05 Zofran Injection IVPB Q8H PRN NAUSEA Oxycodone HCl 5 mg 12/09/17 18:54 08/21/18 05:30 Roxicodone - PO 5 mg Q6H PRN Administration PAIN 4-6 Pantoprazole Sodium 40 mg 12/09/17 22:00 12/10/17 12:38 Protonix Iv IVPUSH 40 mg BID JACKY Administration Impression 1. CKD with acute component 2. COPD 3. chronic back pain on opioids 4. anemia 5. anxiety 6. PNA 7. chf diastolic 8. hyponatremia Plan - renal function is worse - hold IV fluids tonight and repeat labs in am - repeat potassium and check mag levels - potassium was already supplemented - discussed HD with pt, may need to start - place woodall and monitor urine output - avoid nsaids - titrate down the dose of gabapentin - back pain workup per primary team Dr Coe
[2017-12-10] MEDS: DOCUSATE SODIUM 100 MG CAPSULE (FP) PO SCH (23:58)
[2017-12-11] MEDS: HEPARIN NA (PORCINE) 5,000 UNITS/ML 1ML VIAL SQ SCH ×4 (00:01→22:15)
[2017-12-11] MEDS: oxyCODONE HCL 5 MG TABLET PO PRN ×3 (00:01→14:46)
[2017-12-11] MEDS: ALPRAZolam 0.25 MG TABLET PO PRN ×3 (00:02→22:14)
[2017-12-11] MEDS: GABAPENTIN 300 MG CAPSULE (FP) PO SCH (06:36)
[2017-12-11] MEDS: ALBUTEROL SO4 2.5/IPRATROPIUM 0.5 INH SOL 3 ML VIAL.NEB. NEB SCH ×4 (07:06→20:00)
[2017-12-11 07:22] LABS: BASO % 1.5 % (0-2.0); EOS % 3.8 % (0-4.5); HEMATOCRIT 26.1 % (32.4-45.2); LYMPH % 18.7 % (8-40); MCH 28.9 pg (25.7-33.7); MCHC 34.3 g/dl (32.0-36.0); MEAN CELL VOLUME 84.2 fl (80-96); MEAN PLT VOLUME 8.1 fl (7.5-11.1); MONO % 8.9 % (3.8-10.2); NEUT % 67.1 % (42.8-82.8); PLATELET COUNT 379 K/MM3 (134-434); RDW 17.7 % (11.6-15.6); WHITE BLOOD COUNT 9.8 K/mm3 (4.0-10.0)
[2017-12-11 08:07] LABS: SERUM IRON SATURATION 21 % (15-55); TOTAL IRON BINDING CAPACITY 359 ug/dL (250-450); UIBC 285 ug/dL (131-425)
[2017-12-11 08:12] LABS: MAGNESIUM 1.8 mg/dL (1.8-2.4)
[2017-12-11 08:26] LABS: PHOSPHOROUS 7.1 mg/dL (2.5-4.9)
[2017-12-11 08:42] LABS: CHLORIDE 101 mmol/L (98-107); SODIUM 135 mmol/L (136-145)
[2017-12-11 09:23] LABS: ALK PHOS 169 U/L (45-117); ANION GAP 14 MMOL/L (8-16); BILIRUBIN,TOTAL 0.3 mg/dL (0.2-1.0); BLOOD UREA NITROGEN 74 mg/dL (7-18); CALCIUM 8.3 mg/dL (8.5-10.1); CO2 20 mmol/L (21-32); CREATININE 5.5 mg/dL (0.55-1.02); GLUCOSE,RANDOM 103 mg/dL (74-106); SGOT/AST 10 U/L (15-37); SGPT/ALT 11 U/L (12-78); TOT PROT 6.2 g/dl (6.4-8.2)
[2017-12-11] MEDS: D5-1/2NS+20 MEQ KCL - 20 MEQ/1,000 ML INFUS.BAG IV SCH (09:38)
--- NOTE | 2017-12-11 09:44 | CONSULT ---
Consult - text type - Consultation Consultation Note: Neurology History of Present Illness: 62 yo female with a past medical history of asthma, anemia, CKD, chronic back pain, L4,L5 herniated disc, and recent admission 11/02-11/13 for pneumonia w/ subsequent discharge to rehab facility who presents to the emergency department with one day of low back pain which wraps around from her bilateral lower abdominal regions, as well as, associated lesser pain all over. Seen by Dr. Mcneal, NSGY, note reviewed. reportedly with MRI from 2016 [address] Ab/pelvis 1.8cm nodule, no stones, no hydronephrosis. Walks with walker/cane at home. Agree with repeat MRI. Diffcult to get history from her, doesn't know date, tangential in thought. Spoke to top case assembler who stated previously she was more cognitively intact. Nurse reported knowing her and that can sometimes wax and wane in mental status. 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 Cardiovascular: Yes: HTN, Hyperlipdemia Pulmonary: Yes: COPD Gastrointestinal: Yes: Gastritis Renal/: Yes: Renal Inusuff ...LMP: 07/25/12 Heme/Onc: Yes: Anemia Psych: Yes: Anxiety, Depression Musculoskeletal: Yes: Chronic low back pain - Past Surgical History Past Surgical History: Yes: Joint Replacement (hip replacement) - Smoking History Smoking history: Current some day smoker Have you smoked in the past 12 months: Yes Aproximately how many cigarettes per day: 4 If you are a former smoker, when did you quit?: refused booklet 07/21/14 - Alcohol/Substance Use Hx Alcohol Use: No History of Substance Use: reports: Marijuana - Social History ADL: Independent Occupation: not working, SSI History of Recent Travel: No Home Medications - Allergies Allergies/Adverse Reactions: Allergies Allergy/AdvReac Type Severity Reaction Status Date / Time levofloxacin [From Levaquin] Allergy Mild Itching Verified 12/09/17 11:48 - Home Medications Home Medications: Ambulatory Orders Methocarbamol [Robaxin -] 500 mg PO TID PRN 11/02/17 Gabapentin [Neurontin] 300 mg PO TID #42 capsule 11/13/17 Acetaminophen 325 mg PO Q6H 11/19/17 Albuterol 2.5/Ipratropium 0.5 [Duoneb -] 1 neb IH QID 11/19/17 Alprazolam [Xanax] 0.5 mg PO TID PRN 11/19/17 Heparin - 5,000 unit SQ TID 11/19/17 Melatonin 10 mg PO HS 11/19/17 Oxycodone HCl 5 mg PO QID PRN 11/19/17 Pantoprazole Sodium 40 mg PO DAILY 11/19/17 Aspirin Coated [Ecotrin -] 325 mg PO DAILY 11/25/17 Family Disease History - Family Disease History Family Disease History: Other: Father (alive), Mother (alivee), Sister (alive), Son (23 yo old - alive - healthy) Review of Systems - Review of Systems Constitutional: reports: No Symptoms Eyes: reports: No Symptoms HENT: reports: No Symptoms Neck: reports: No Symptoms Cardiovascular: reports: No Symptoms Respiratory: reports: No Symptoms Gastrointestinal: reports: No Symptoms Genitourinary: reports: No Symptoms Breasts: reports: No Symptoms Reported Musculoskeletal: reports: Back Pain Integumentary: reports: No Symptoms Neurological: reports: No Symptoms Endocrine: reports: No Symptoms Hematology/Lymphatic: reports: No Symptoms Psychiatric: reports: No Symptoms Physical Examination Vital Signs Period Temp Pulse Resp BP Sys/Bills Pulse Ox Last 24 Hr 97.3 F-98.6 F 68-88 18-20 110-132/62-81 95-98 Constitutional: Yes: Well Nourished, No Distress, Calm Cardiovascular: Yes: Regular Rate and Rhythm Respiratory: Yes: Regular Gastrointestinal: Yes: Normal Bowel Sounds, Soft, Tenderness (RLQ) Musculoskeletal: Yes: WNL Extremities: Yes: WNL Edema: No Peripheral Pulses WNL: Yes Neurological: CN intact, no slurred speech, no facial droop, moves lower ext 5-/ 5, UE 5/5, sensory slight dec to PP distally, gait deferred Psychiatric: Yes: Alert CBCD WBC 9.8 K/mm3 (4.0-10.0) 12/11/17 06:33 RBC 3.10 M/mm3 (3.60-5.2) L 12/11/17 06:33 Hgb 9.0 GM/dL (10.7-15.3) L 12/11/17 06:33 Hct 26.1 % (32.4-45.2) L 12/11/17 06:33 MCV 84.2 fl (80-96) 12/11/17 06:33 MCHC 34.3 g/dl (32.0-36.0) 12/11/17 06:33 RDW 17.7 % (11.6-15.6) H 12/11/17 06:33 Plt Count 379 K/MM3 (134-434) 12/11/17 06:33 MPV 8.1 fl (7.5-11.1) 12/11/17 06:33 CMP Sodium 136 mmol/L (136-145) 12/10/17 06:50 Potassium 2.9 mmol/L (3.5-5.1) L* 12/10/17 06:50 Chloride 102 mmol/L (98-107) 12/10/17 06:50 Carbon Dioxide 20 mmol/L (21-32) L 12/10/17 06:50 Anion Gap 14 (8-16) 12/10/17 06:50 BUN 81 mg/dL (7-18) H 12/10/17 06:50 Creatinine 5.8 mg/dL (0.55-1.02) H 12/10/17 06:50 Creat Clearance w eGFR 7.44 (>60) 12/10/17 06:50 Calcium 8.9 mg/dL (8.5-10.1) 12/10/17 06:50 Total Bilirubin 0.5 mg/dL (0.2-1.0) 12/10/17 06:50 AST 13 U/L (15-37) L 12/10/17 06:50 ALT 14 U/L (12-78) 12/10/17 06:50 Alkaline Phosphatase 190 U/L (45-117) H D 12/10/17 06:50 Total Protein 6.8 g/dl (6.4-8.2) 12/10/17 06:50 Albumin 3.2 g/dl (3.4-5.0) L 12/10/17 06:50 CT abd reviewed Plan: 62 yo female with a past medical history of asthma, anemia, CKD, chronic back pain, L4,L5 herniated disc, and recent admission 11/02-11/13 for pneumonia w/ subsequent discharge to rehab facility who presents to the emergency department with one day of low back pain which wraps around from her bilateral lower abdominal regions, as well as, associated lesser pain all over. Seen by Dr. Mcneal, NSGY, note reviewed. reportedly with MRI from 2016 with [address] Ab/pelvis 1.8cm nodule, no stones, no hydronephrosis. Walks with walker/cane at home. Agree with repeat MRI. Diffcult to get history from her, doesn't know date, tangential in thought. Spoke to top case assembler who stated previously she was more cognitively intact. Nurse reported knowing her and that can sometimes wax and wane in mental status. Will order CT head. Continue pain mgmt, PT as tolerated, follow up nsgy rec'd.
[2017-12-11 09:48] LABS: POTASSIUM 2.9 mmol/L (3.5-5.1)
[2017-12-11] MEDS ORDERED: POTASSIUM CHLORIDE TABS 10 MEQ TABLET.ER (FP) PO ONE (10:15)
[2017-12-11] MEDS: PANTOPRAZOLE SODIUM 40 MG VIAL IVPUSH SCH ×3 (10:18→22:17)
[2017-12-11] MEDS: ASPIRIN 325 MG ENTERIC COATED TABLET (FP) PO SCH (10:18)
[2017-12-11] MEDS: DULoxetine HCL 30 MG CAPSULE.DR (FP) PO SCH (10:18)
--- NOTE | 2017-12-11 12:48 | PN ---
Progress Note (short form) - Note Progress Note: Awaiting MRI of lumbar spine before establishing a surgical plan if warranted.
--- NOTE | 2017-12-11 13:08 | PN ---
Progress Note, Physician History of Present Illness: Pt seen and examined at bedside. She is awake and alert. She denies shortness of breath. She says that she forgot the answers to some of the questions that neurology asked her earlier. - Current Medication List Current Medications: Active Medications Albuterol/Ipratropium (Duoneb -) 1 amp NEB RQID [facility] Last Admin: 12/11/17 11:20 Dose: 1 amp Alprazolam (Xanax -) 0.5 mg PO Q8H PRN PRN Reason: anxeity Last Admin: 12/11/17 00:02 Dose: 0.5 mg Aspirin (Ecotrin -) 325 mg PO DAILY [facility] Last Admin: 12/11/17 10:18 Dose: 325 mg Docusate Sodium (Colace -) 300 mg PO HS [facility] Last Admin: 12/10/17 23:58 Dose: 300 mg Duloxetine HCl (Cymbalta -) 30 mg PO DAILY [facility] Last Admin: 12/11/17 10:18 Dose: 30 mg Gabapentin (Neurontin -) 300 mg PO TID [facility] Last Admin: 12/11/17 06:36 Dose: 300 mg Heparin Sodium (Porcine) (Heparin -) 5,000 unit SQ TID [facility] Last Admin: 12/11/17 06:35 Dose: 5,000 unit Melatonin (Melatonin) 10 mg PO HS [facility] Last Admin: 12/11/17 00:00 Dose: 10 mg Ondansetron HCl (Zofran Injection) 4 mg IVPB Q8H PRN PRN Reason: NAUSEA Oxycodone HCl (Roxicodone -) 5 mg PO Q6H PRN PRN Reason: PAIN 4-6 Last Admin: 12/11/17 06:36 Dose: 5 mg Pantoprazole Sodium (Protonix Iv) 40 mg IVPUSH BID [facility] Last Admin: 12/11/17 10:18 Dose: 40 mg - Objective Vital Signs: Vital Signs Temperature 98.5 F 12/11/17 04:00 Pulse Rate 80 12/11/17 04:00 Respiratory Rate 18 12/11/17 04:00 Blood Pressure 110/62 12/11/17 04:00 O2 Sat by Pulse Oximetry (%) 95 12/10/17 21:00 Constitutional: Yes: Calm Eyes: Yes: Conjunctiva Clear HENT: Yes: Atraumatic Cardiovascular: Yes: S1, S2 Respiratory: Yes: CTA Bilaterally Gastrointestinal: Yes: Normal Bowel Sounds, Soft Genitourinary: Yes: WNL Musculoskeletal: Yes: WNL Edema: Yes Edema: LLE: Trace, RLE: Trace Neurological: Yes: Oriented Psychiatric: Yes: Oriented Labs: CBC, BMP 12/11/17 06:33 12/11/17 06:33 Problem List - Problems (1) CKD (chronic kidney disease) Code(s): N18.9 - CHRONIC KIDNEY DISEASE, UNSPECIFIED Assessment/Plan Current Medications Generic Name Dose Route Start Last Admin Trade Name Freq PRN Reason Stop Dose Admin Albuterol/Ipratropium 1 amp 12/09/17 20:00 12/11/17 11:20 Duoneb - NEB 1 amp RQID JACKY Administration Alprazolam 0.5 mg 12/09/17 18:54 12/11/17 00:02 Xanax - PO 0.5 mg Q8H PRN Administration anxeity Aspirin 325 mg 12/10/17 10:00 12/11/17 10:18 Ecotrin - PO 325 mg DAILY JACKY Administration Docusate Sodium 300 mg 12/10/17 22:00 12/10/17 23:58 Colace - PO 300 mg HS JACKY Administration Duloxetine HCl 30 mg 12/10/17 11:15 12/11/17 10:18 Cymbalta - PO 30 mg DAILY JACKY Administration Gabapentin 300 mg 12/09/17 22:00 12/11/17 06:36 Neurontin - PO 300 mg TID JACKY Administration Heparin Sodium (Porcine) 5,000 unit 12/09/17 22:00 12/11/17 06:35 Heparin - SQ 5,000 unit TID JACKY Administration Melatonin 10 mg 12/09/17 22:00 12/11/17 00:00 Melatonin PO 10 mg HS JACKY Administration Ondansetron HCl 4 mg 12/10/17 11:05 Zofran Injection IVPB Q8H PRN NAUSEA Oxycodone HCl 5 mg 12/09/17 18:54 12/11/17 06:36 Roxicodone - PO 5 mg Q6H PRN Administration PAIN 4-6 Pantoprazole Sodium 40 mg 12/09/17 22:00 12/11/17 10:18 Protonix Iv IVPUSH 40 mg BID JACKY Administration Impression 1. CKD with acute component 2. COPD 3. chronic back pain on opioids 4. anemia 5. anxiety 6. PNA 7. chf diastolic 8. hyponatremia Plan - start phoslo - renal function improving - replace potassium - keep fluids on hold for now - avoid nsaids - titrate down the dose of gabapentin - back pain workup per primary team Dr Coe
[2017-12-11] MEDS ORDERED: POTASSIUM CHLORIDE TABS 20 MEQ TABLET.ER (FP) PO ONE (14:00)
[2017-12-11] MEDS ORDERED: PT OWN MED DRAWER 7, Y5N ONE ×2 (14:44→21:59)
[2017-12-11] MEDS: KCL 10 MEQ IVPB 10 MEQ/100 ML INFUS.BAG IVPB SCH ×2 (14:48→16:47)
--- NOTE | 2017-12-11 15:49 | CON.GI ---
Consult Consult Specialty:: GI Reason for Consultation:: abdominal pain - History of Present Illness History of Present Illness: Chart reviewed. Assesments an dconsultations noted. GI was consulted for abdoinal pain.The pt appears to be not a reliable historian. Most of the history from the chart. per initial intake: The patient is a 62 yo female with a past medical history of asthma, anemia, CKD, chronic back pain, L4,L5 herniated disc, and recent admission 11/02-11/13 for pneumonia w/ subsequent discharge to rehab facility who presents to the emergency department with one day of low back pain which wraps around from her bilateral lower abdominal regions, as well as, associated lesser pain all over. She also reports a few episodes of nausea and vomiting yesterday, but denies emesis today. The patient denies chest pain, shortness of breath, headache and dizziness. The patient denies fever, chills, diarrhea and constipation. The patient denies dysuria, frequency, urgency and hematuria. At the time of the encounter, the pr appeared comfortable, reported eating lunch w/o nausea, vomiting, or worsening abdominal pain. On exam, the abdomen was soft, the pt complained of generalized abdominal tenderness, w/o rebound, guarding, or rigidity. The pt reported no dysphagia, odynophagia, dyspepsia, acid reflux, blood in stool, or changes in stool caliper. Deneis ETOH recent URI , diarrhea, gastroenteritis. Blood work revealed elevated ALP,and mildly elevated lipase. Normocytic normochromnic anemia and renal insufficiency. CT A/P wo: Bilateral renal deformity and cortical thinning, likely scarring without evidence of hydronephrosis or gross renal stones. There may be a tiny subcentimeter right renal upper pole cyst. Significant left adrenal hyperplasia with suggestion of a 1.8 cm nodule again seen. Persistent mesenteric stranding is seen around the left adrenal gland, of uncertain etiology. Cannot rule out an infiltrative process. Correlation with MRI may be helpful for further evaluation. - History Source History Provided By: Patient, Medical Record, Caregiver - Past Medical History [employer]: Yes: Peripheral Neuropathy Cardio/Vascular: Yes: HTN, Hyperlipdemia Pulmonary: Yes: COPD Gastrointestinal: Yes: Gastritis Renal/: Yes: Renal Inusuff ...LMP: 07/25/12 ...: No Psych: Yes: Anxiety, Depression Musculoskeletal: Yes: Chronic low back pain - Past Surgical History Past Surgical History: Yes: Joint Replacement (hip replacement) - Alcohol/Substance Use Hx Alcohol Use: No History of Substance Use: reports: Marijuana - Smoking History Smoking history: Current some day smoker Have you smoked in the past 12 months: Yes Aproximately how many cigarettes per day: 4 If you are a former smoker, when did you quit?: refused booklet 07/21/14 - Social History Usual Living Arrangement: With Child ADL: Independent Occupation: not working, SSI History of Recent Travel: No Home Medications - Allergies Allergies/Adverse Reactions: Allergies Allergy/AdvReac Type Severity Reaction Status Date / Time levofloxacin [From Levaquin] Allergy Mild Itching Verified 12/09/17 11:48 - Home Medications Home Medications: Ambulatory Orders Methocarbamol [Robaxin -] 500 mg PO TID PRN 11/02/17 Gabapentin [Neurontin] 300 mg PO TID #42 capsule 11/13/17 Acetaminophen 325 mg PO Q6H 11/19/17 Albuterol 2.5/Ipratropium 0.5 [Duoneb -] 1 neb IH QID 11/19/17 Alprazolam [Xanax] 0.5 mg PO TID PRN 11/19/17 Heparin - 5,000 unit SQ TID 11/19/17 Melatonin 10 mg PO HS 11/19/17 Oxycodone HCl 5 mg PO QID PRN 11/19/17 Pantoprazole Sodium 40 mg PO DAILY 11/19/17 Aspirin Coated [Ecotrin -] 325 mg PO DAILY 11/25/17 Family Disease History - Family Disease History Family Disease History: Other: Father (alive), Mother (alivee), Sister (alive), Son (23 yo old - alive - healthy) Review of Systems Findings/Remarks: as per HPI, ED, H&P Physical Exam-GI Vital Signs: Vital Signs Temperature 98.5 F 12/11/17 04:00 Pulse Rate 80 12/11/17 04:00 Respiratory Rate 18 12/11/17 04:00 Blood Pressure 110/62 12/11/17 04:00 O2 Sat by Pulse Oximetry (%) 95 12/10/17 21:00 Constitutional: Yes: No Distress, Calm Eyes: No: Sclera Icterus HENT: Yes: Atraumatic Neck: Yes: Supple Cardiovascular: Yes: Regular Rate and Rhythm Respiratory: Yes: Regular Gastrointestinal Inspection: No: Ascites, Distention ...Auscultate: Yes: Normoactive Bowel Sounds ...Palpate: Yes: Soft, Tenderness (generalized). No: Firm/Rigid, Guarding, Mass , Tenderness, Epigastium, Tenderness, Rebound Neurological: Yes: Alert Labs: CBC, BMP 12/11/17 06:33 12/11/17 06:33 Laboratory Last Values WBC 9.8 K/mm3 (4.0-10.0) 12/11/17 06:33 RBC 3.10 M/mm3 (3.60-5.2) L 12/11/17 06:33 Hgb 9.0 GM/dL (10.7-15.3) L 12/11/17 06:33 Hct 26.1 % (32.4-45.2) L 12/11/17 06:33 MCV 84.2 fl (80-96) 12/11/17 06:33 MCH 28.9 pg (25.7-33.7) 12/11/17 06:33 MCHC 34.3 g/dl (32.0-36.0) 12/11/17 06:33 RDW 17.7 % (11.6-15.6) H 12/11/17 06:33 Plt Count 379 K/MM3 (134-434) 12/11/17 06:33 MPV 8.1 fl (7.5-11.1) 12/11/17 06:33 Absolute Neuts (auto) 6.6 K/mm3 (1.5-8.0) 12/11/17 06:33 Neutrophils % 67.1 % (42.8-82.8) 12/11/17 06:33 Lymphocytes % 18.7 % (8-40) 12/11/17 06:33 Monocytes % 8.9 % (3.8-10.2) 12/11/17 06:33 Eosinophils % 3.8 % (0-4.5) D 12/11/17 06:33 Basophils % 1.5 % (0-2.0) 12/11/17 06:33 Nucleated RBC % 0 % (0-0) 12/11/17 06:33 Sodium 135 mmol/L (136-145) L 12/11/17 06:33 Potassium 2.9 mmol/L (3.5-5.1) L* 12/11/17 06:33 Chloride 101 mmol/L (98-107) 12/11/17 06:33 Carbon Dioxide 20 mmol/L (21-32) L 12/11/17 06:33 Anion Gap 14 MMOL/L (8-16) 12/11/17 06:33 BUN 74 mg/dL (7-18) H 12/11/17 06:33 Creatinine 5.5 mg/dL (0.55-1.02) H 12/11/17 06:33 Creat Clearance w eGFR 7.91 (>60) 12/11/17 06:33 Random Glucose 103 mg/dL (74-106) 12/11/17 06:33 Hemoglobin A1c % 5.6 % (4.8-6.0) 12/10/17 11:06 Calcium 8.3 mg/dL (8.5-10.1) L 12/11/17 06:33 Phosphorus 7.1 mg/dL (2.5-4.9) H 12/11/17 06:33 Magnesium 1.8 mg/dL (1.8-2.4) 12/11/17 06:33 Iron 74 ug/dL (27-159) 12/10/17 11:06 TIBC 359 ug/dL (250-450) 12/10/17 11:06 Iron Saturation 21 % (15-55) 12/10/17 11:06 Ferritin 8.9 ng/ml (6.9-282.5) 12/10/17 11:06 Total Bilirubin 0.3 mg/dL (0.2-1.0) 12/11/17 06:33 AST 10 U/L (15-37) L 12/11/17 06:33 ALT 11 U/L (12-78) L 12/11/17 06:33 Alkaline Phosphatase 169 U/L (45-117) H D 12/11/17 06:33 Troponin I < 0.02 ng/ml (0.00-0.05) 12/09/17 14:17 Total Protein 6.2 g/dl (6.4-8.2) L 12/11/17 06:33 Albumin 3.0 g/dl (3.4-5.0) L 12/11/17 06:33 Triglycerides 89 mg/dL (35-160) 12/11/17 06:33 Cholesterol 137 mg/dL (50-200) 12/11/17 06:33 Total LDL Cholesterol 70 mg/dL (5-100) 12/11/17 06:33 HDL Cholesterol 58 mg/dL (40-60) 12/11/17 06:33 Total Amylase 94 U/L (25-115) 12/09/17 14:17 Lipase 578 U/L (73-393) H 12/10/17 11:06 Vitamin B12 1210 pg/ml (180-914) H 12/10/17 11:06 Serum Folate 6 ng/ml (3.1-17.5) 12/11/17 06:33 TSH 0.92 uIU/ml (0.358-3.74) 12/10/17 11:06 Free T4 1.13 ng/dl (0.76-1.46) 12/10/17 11:06 Urine Color Straw 12/09/17 20:30 Urine Appearance Clear 12/09/17 20:30 Urine pH 6.0 (5.0-8.0) 12/09/17 20:30 Ur Specific Halfway 1.010 (1.001-1.035) 12/09/17 20:30 Urine Protein 3+ (NEGATIVE) H 12/09/17 20:30 Urine Glucose (UA) 1+ (NEGATIVE) H 12/09/17 20:30 Urine Ketones Negative (NEGATIVE) 12/09/17 20:30 Urine Blood 1+ (NEGATIVE) H 12/09/17 20:30 Urine Nitrite Negative (NEGATIVE) 12/09/17 20:30 Urine Bilirubin Negative (<2.0 mg/dL) 12/09/17 20:30 Urine Urobilinogen Negative mg/dL (0.2-1.0) 12/09/17 20:30 Ur Leukocyte Esterase Negative (NEGATIVE) 12/09/17 20:30 Urine WBC (Auto) 13 /hpf (3-5) 12/09/17 20:30 Urine RBC (Auto) <1 /hpf (0-3) 12/09/17 20:30 Ur Epithelial Cells Rare /HPF (FEW) 12/09/17 20:30 Urine Bacteria Rare /hpf (NONE SEEN) 12/09/17 20:30 Urine Mucus Rare 12/09/17 20:30 Imaging - Results Cat Scan: Report Reviewed Problem List - Problems (1) Elevated lipase Code(s): R74.8 - ABNORMAL LEVELS OF OTHER SERUM ENZYMES (2) Alkaline phosphatase elevation Code(s): R74.8 - ABNORMAL LEVELS OF OTHER SERUM ENZYMES (3) Abdominal pain Code(s): R10.9 - UNSPECIFIED ABDOMINAL PAIN Qualifiers: Abdominal location: left lower quadrant Qualified Code(s): R10.32 - Left lower quadrant pain (4) CKD (chronic kidney disease) stage 4, GFR 15-29 ml/min Code(s): N18.4 - CHRONIC KIDNEY DISEASE, STAGE 4 (SEVERE) Assessment/Plan A 62F with chronic back pain radiating bilaterally around the back, to the abdomen. Chronic renal insuficiency. Anemia of chronic disease and elevated lipase with ALP. No reports of nausea, vomiting, stigmata of GI bleeding, diarrhea. Tolerated regular diet w/o postprandial events. The ALP and Lipase abnormality are likely related to the underlying renal disease. Recommend RUQ sonogram to rule out cholelithiais. Continue current care , diet and observe. Repeat CBC, CMP, direct bili in am.
[2017-12-11] MEDS ORDERED: KCL 10 MEQ IVPB 10 MEQ/100 ML INFUS.BAG IVPB SCH (16:30)
--- NOTE | 2017-12-11 17:18 | PN ---
Progress Note, Physician Chief Complaint: EVENTS NOTED AND REVIEWED CHRONIC BACK AND JOINT PAIN WITH NEURO SURGERY EVAL PENDING ON OPIOD NARCOTICS FOR PAIN CONTROL FOR MANY YEARS. C/O ABD PAIN, BEING EVALUATED BY GI - Current Medication List Current Medications: Active Medications Albuterol/Ipratropium (Duoneb -) 1 amp NEB RQID [facility] Last Admin: 12/11/17 15:38 Dose: Not Given Alprazolam (Xanax -) 0.5 mg PO Q8H PRN PRN Reason: anxeity Last Admin: 12/11/17 13:12 Dose: 0.5 mg Aspirin (Ecotrin -) 325 mg PO DAILY [facility] Last Admin: 12/11/17 10:18 Dose: 325 mg Docusate Sodium (Colace -) 300 mg PO [facility] Last Admin: 12/10/17 23:58 Dose: 300 mg Duloxetine HCl (Cymbalta -) 30 mg PO DAILY [facility] Last Admin: 12/11/17 10:18 Dose: 30 mg Gabapentin (Neurontin Oral Liquid -) 250 mg PO TID [facility] Heparin Sodium (Porcine) (Heparin -) 5,000 unit SQ TID [facility] Last Admin: 12/11/17 14:47 Dose: 5,000 unit Potassium Chloride (Potassium Chloride 10 Meq Premix Ivpb -) 10 meq in 100 mls @ 100 mls/hr IVPB Q60M [facility] Stop: 12/11/17 17:29 Last Admin: 12/11/17 16:49 Dose: 100 mls/hr Melatonin (Melatonin) 10 mg PO [facility] Last Admin: 12/11/17 00:00 Dose: 10 mg Ondansetron HCl (Zofran Injection) 4 mg IVPB Q8H PRN PRN Reason: NAUSEA Oxycodone HCl (Roxicodone -) 5 mg PO Q6H PRN PRN Reason: PAIN 4-6 Last Admin: 12/11/17 14:46 Dose: 5 mg Pantoprazole Sodium (Protonix Iv) 40 mg IVPUSH BID [facility] Last Admin: 12/11/17 10:18 Dose: 40 mg - Objective Vital Signs: Vital Signs Temperature 98 F 12/11/17 17:12 Pulse Rate 94 H 12/11/17 17:12 Respiratory Rate 20 12/11/17 17:12 Blood Pressure 146/80 12/11/17 17:12 O2 Sat by Pulse Oximetry (%) 95 12/10/17 21:00 Constitutional: Yes: Mild Distress Eyes: Yes: WNL HENT: Yes: WNL Neck: Yes: WNL Cardiovascular: Yes: WNL Respiratory: Yes: WNL Gastrointestinal: Yes: WNL Genitourinary: Yes: WNL Musculoskeletal: Yes: Back Pain, Muscle Pain Extremities: Yes: WNL Edema: No Peripheral Pulses WNL: Yes Integumentary: Yes: WNL Wound/Incision: Yes: Clean/Dry Neurological: Yes: Pre-Existing Deficit ...Motor Strength: LLE, RLE Psychiatric: Yes: Other Labs: CBC, BMP 12/11/17 06:33 12/11/17 06:33 Problem List - Problems (1) Abdominal pain Code(s): R10.9 - UNSPECIFIED ABDOMINAL PAIN Qualifiers: Abdominal location: left lower quadrant Qualified Code(s): R10.32 - Left lower quadrant pain (2) Hypokalemia Code(s): E87.6 - HYPOKALEMIA (3) Anxiety and depression Code(s): F41.8 - OTHER SPECIFIED ANXIETY DISORDERS (4) Back pain Code(s): M54.9 - DORSALGIA, UNSPECIFIED Qualifiers: Back pain location: low back pain Chronicity: chronic Back pain laterality: bilateral Sciatica presence: without sciatica Qualified Code(s) : M54.5 - Low back pain; G89.29 - Other chronic pain (5) H/O opioid abuse Code(s): Z87.898 - PERSONAL HISTORY OF OTHER SPECIFIED CONDITIONS (6) CKD (chronic kidney disease) Code(s): N18.9 - CHRONIC KIDNEY DISEASE, UNSPECIFIED Assessment/Plan REPLETE KCL RENAL EVAL GI WORKUP PENDING SONO ABD R/O CHOLITIASIS UNRELIABLE HISTORIAN WITH STRONG HX OF MALINGERING FOR OPIOD PAIN TX WILL CHECK SONO, REPLETE LYTES, CAN F/U OUTPATIENT WITH NEURO SURGERY
[2017-12-11] MEDS: GABAPENTIN 250 MG/5 ML ORAL SOLUTION, 470 ML BOTTLE PO SCH ×2 (17:49→22:16)
[2017-12-11 20:37] LABS: ANION GAP 15 MMOL/L (8-16); BLOOD UREA NITROGEN 67 mg/dL (7-18); CALCIUM 8.2 mg/dL (8.5-10.1); CHLORIDE 106 mmol/L (98-107); CO2 18 mmol/L (21-32); CREATININE 5.3 mg/dL (0.55-1.02); GLUCOSE,RANDOM 117 mg/dL (74-106); POTASSIUM 3.8 mmol/L (3.5-5.1); SODIUM 139 mmol/L (136-145)
[2017-12-11] MEDS: DOCUSATE SODIUM 100 MG CAPSULE (FP) PO SCH (22:14)
[2017-12-11] MEDS: MELATONIN 5 MG TABLETS PO SCH ×2 (22:14)
[2017-12-12] MEDS: HEPARIN NA (PORCINE) 5,000 UNITS/ML 1ML VIAL SQ SCH ×2 (06:52→14:01)
[2017-12-12] MEDS: GABAPENTIN 250 MG/5 ML ORAL SOLUTION, 470 ML BOTTLE PO SCH ×2 (06:54→14:09)
[2017-12-12] MEDS: ALBUTEROL SO4 2.5/IPRATROPIUM 0.5 INH SOL 3 ML VIAL.NEB. NEB SCH ×3 (07:15→15:53)
[2017-12-12 08:04] LABS: HEMATOCRIT 24.1 % (32.4-45.2); HEMOGLOBIN 8.3 GM/dL (10.7-15.3); MCHC 34.3 g/dl (32.0-36.0); MEAN CELL VOLUME 84.5 fl (80-96); MEAN PLT VOLUME 8.5 fl (7.5-11.1); PLATELET COUNT 368 K/MM3 (134-434); RBC 2.85 M/mm3 (3.60-5.2); WHITE BLOOD COUNT 11.1 K/mm3 (4.0-10.0)
[2017-12-12 08:26] LABS: ANION GAP 13 MMOL/L (8-16); BLOOD UREA NITROGEN 72 mg/dL (7-18); CALCIUM 8.6 mg/dL (8.5-10.1); CHLORIDE 107 mmol/L (98-107); CO2 22 mmol/L (21-32); GLUCOSE,RANDOM 91 mg/dL (74-106); MAGNESIUM 1.7 mg/dL (1.8-2.4); POTASSIUM 3.4 mmol/L (3.5-5.1); SODIUM 142 mmol/L (136-145)
--- NOTE | 2017-12-12 08:51 | DS ---
Physical Examination Vital Signs: Vital Signs Temperature 98.1 F 12/12/17 07:25 Pulse Rate 84 12/12/17 07:25 Respiratory Rate 20 12/12/17 07:25 Blood Pressure 132/76 12/12/17 07:25 O2 Sat by Pulse Oximetry (%) 98 12/11/17 21:00 Findings/Remarks: CLEARED BY NEUROSURGERY TO BE DISCHARGED Constitutional: Yes: No Distress Eyes: Yes: WNL HENT: Yes: WNL Neck: Yes: WNL Cardiovascular: Yes: WNL Respiratory: Yes: WNL Gastrointestinal: Yes: WNL Musculoskeletal: Yes: WNL Extremities: Yes: WNL Edema: No Peripheral Pulses WNL: Yes Wound/Incision: Yes: Clean/Dry Neurological: Yes: Pre-Existing Deficit ...Motor Strength: LLE, RLE Psychiatric: Yes: Other Labs: CBC, BMP 12/12/17 07:00 12/12/17 07:00 Discharge Summary Reason For Visit: ABDOMINAL PAIN; CHRONIC KIDNEY DISEASE Current Active Problems Abdominal pain (Acute) Alkaline phosphatase elevation (Acute) CKD (chronic kidney disease) (Acute) Elevated lipase (Acute) Hypokalemia (Acute) CKD (chronic kidney disease) stage 4, GFR 15-29 ml/min (Chronic) Procedures: Principal: MRI LSPINE Hospital Course: BACK PAIBN IS CHRONIC TREATED WITH ANALGESICS, NEUROSURGERY WOULD LIKE FOR HER TO HAVE AN OUTPATIENT EPIDURAL LUMBAR INJECTION, LSO BRACE ORDERED FOR SUPPORT. Condition: Fair - Instructions Diet, Activity, Other Instructions: OUTPATIENTPT AND PAIN MEDICINE F/U FOR EPIDURAL LUMBAR INJECTION Referrals: Lisette White MD [Primary Care Provider] - Disposition: HOME - Home Medications Comprehensive Discharge Medication List: Ambulatory Orders Methocarbamol [Robaxin -] 500 mg PO TID PRN 11/02/17 Gabapentin [Neurontin] 300 mg PO TID #42 capsule 11/13/17 Acetaminophen 325 mg PO Q6H 11/19/17 Albuterol 2.5/Ipratropium 0.5 [Duoneb -] 1 neb IH QID 11/19/17 Alprazolam [Xanax] 0.5 mg PO TID PRN 11/19/17 Heparin - 5,000 unit SQ TID 11/19/17 Melatonin 10 mg PO HS 11/19/17 Oxycodone HCl 5 mg PO QID PRN 11/19/17 Pantoprazole Sodium 40 mg PO DAILY 11/19/17 Aspirin Coated [Ecotrin -] 325 mg PO DAILY 11/25/17
[2017-12-12] MEDS ORDERED: POTASSIUM CHLORIDE TABS 20 MEQ TABLET.ER (FP) PO ONE (09:00)
[2017-12-12] MEDS ORDERED: POTASSIUM CHLORIDE TABS 10 MEQ TABLET.ER (FP) PO ONE (09:00)
--- NOTE | 2017-12-12 09:11 | PN ---
Progress Note (short form) - Note Progress Note: Neurology History of Present Illness: 62 yo female with a past medical history of asthma, anemia, CKD, chronic back pain, L4,L5 herniated disc, and recent admission 11/02-11/13 for pneumonia w/ subsequent discharge to rehab facility who presents to the emergency department with one day of low back pain which wraps around from her bilateral lower abdominal regions, as well as, associated lesser pain all over. Seen by Dr. Mcneal, NSGY, note reviewed. reportedly with MRI from [address] Ab/pelvis 1.8cm nodule, no stones, no hydronephrosis. Walks with walker/cane at home. Spoke to patient case manager who stated previously she was more cognitively intact. Nurse reported knowing her and that can sometimes wax and wane in mental status. CT head complted and without acute changes. MRI L spine reviewed and chronic L1 compression, s/p vertebroplasty, L4/L5 disc extrusion, no stenosis, no thecal sac deformity, L5/S1 mod L sided stenosis. Describes pain all over but is ambulating. Active Medications Albuterol/Ipratropium (Duoneb -) 1 amp NEB RQID [facility] Last Admin: 12/12/17 07:15 Dose: 1 amp Alprazolam (Xanax -) 0.5 mg PO Q8H PRN PRN Reason: anxeity Last Admin: 12/11/17 22:14 Dose: 0.5 mg Aspirin (Ecotrin -) 325 mg PO DAILY [facility] Last Admin: 12/11/17 10:18 Dose: 325 mg Docusate Sodium (Colace -) 300 mg PO [facility] Last Admin: 12/11/17 22:14 Dose: 300 mg Duloxetine HCl (Cymbalta -) 30 mg PO DAILY [facility] Last Admin: 12/11/17 10:18 Dose: 30 mg Gabapentin (Neurontin Oral Liquid -) 250 mg PO TID [facility] Last Admin: 12/12/17 06:54 Dose: 250 mg Heparin Sodium (Porcine) (Heparin -) 5,000 unit SQ TID [facility] Last Admin: 12/12/17 06:52 Dose: 5,000 unit Magnesium Oxide (Mag-Ox -) 400 mg PO BID [facility] Melatonin (Melatonin) 10 mg PO [facility] Last Admin: 12/11/17 22:14 Dose: 10 mg Ondansetron HCl (Zofran Injection) 4 mg IVPB Q8H PRN PRN Reason: NAUSEA Oxycodone HCl (Roxicodone -) 5 mg PO Q6H PRN PRN Reason: PAIN 4-6 Last Admin: 12/11/17 14:46 Dose: 5 mg Pantoprazole Sodium (Protonix Iv) 40 mg IVPUSH BID [facility] Last Admin: 12/11/17 22:17 Dose: 40 mg Physical Examination Vital Signs Temperature 98.1 F 12/12/17 07:25 Pulse Rate 84 12/12/17 07:25 Respiratory Rate 20 12/12/17 07:25 Blood Pressure 132/76 12/12/17 07:25 O2 Sat by Pulse Oximetry (%) 98 12/11/17 21:00 Constitutional: Yes: Well Nourished, No Distress, Calm Cardiovascular: Yes: Regular Rate and Rhythm Respiratory: Yes: Regular Gastrointestinal: Yes: Normal Bowel Sounds, Soft, Tenderness (RLQ) Musculoskeletal: Yes: WNL Extremities: Yes: WNL Edema: No Peripheral Pulses WNL: Yes Neurological: CN intact, no slurred speech, no facial droop, moves lower ext 5-/ 5, UE 5/5, sensory slight dec to PP distally, gait without ataxia Psychiatric: Yes: Alert CBCD WBC 11.1 K/mm3 (4.0-10.0) H 12/12/17 07:00 RBC 2.85 M/mm3 (3.60-5.2) L 12/12/17 07:00 Hgb 8.3 GM/dL (10.7-15.3) L 12/12/17 07:00 Hct 24.1 % (32.4-45.2) L 12/12/17 07:00 MCV 84.5 fl (80-96) 12/12/17 07:00 MCHC 34.3 g/dl (32.0-36.0) 12/12/17 07:00 RDW 18.0 % (11.6-15.6) H 12/12/17 07:00 Plt Count 368 K/MM3 (134-434) 12/12/17 07:00 MPV 8.5 fl (7.5-11.1) 12/12/17 07:00 CMP Sodium 142 mmol/L (136-145) 12/12/17 07:00 Potassium 3.4 mmol/L (3.5-5.1) L 12/12/17 07:00 Chloride 107 mmol/L (98-107) 12/12/17 07:00 Carbon Dioxide 22 mmol/L (21-32) 12/12/17 07:00 Anion Gap 13 MMOL/L (8-16) 12/12/17 07:00 BUN 72 mg/dL (7-18) H 12/12/17 07:00 Creatinine 5.0 mg/dL (0.55-1.02) H 12/12/17 07:00 Creat Clearance w eGFR 8.83 (>60) 12/12/17 07:00 Random Glucose 91 mg/dL (74-106) 12/12/17 07:00 Calcium 8.6 mg/dL (8.5-10.1) 12/12/17 07:00 Total Bilirubin 0.3 mg/dL (0.2-1.0) 12/11/17 06:33 AST 10 U/L (15-37) L 12/11/17 06:33 ALT 11 U/L (12-78) L 12/11/17 06:33 Alkaline Phosphatase 169 U/L (45-117) H D 12/11/17 06:33 Total Protein 6.2 g/dl (6.4-8.2) L 12/11/17 06:33 Albumin 3.0 g/dl (3.4-5.0) L 12/11/17 06:33 CARDIAC ENZYMES Troponin I < 0.02 ng/ml (0.00-0.05) 12/09/17 14:17 CT abd reviewed Plan: 62 yo female with a past medical history of asthma, anemia, CKD, chronic back pain, L4,L5 herniated disc, and recent admission 11/02-11/13 for pneumonia w/ subsequent discharge to rehab facility who presents to the emergency department with one day of low back pain which wraps around from her bilateral lower abdominal regions, as well as, associated lesser pain all over. Seen by Dr. Mcneal, NSGY, note reviewed. reportedly with MRI from 2016 with [address] fracture[address] Ab/pelvis 1.8cm nodule, no stones, no hydronephrosis. Walks with walker/cane at home. Agree with repeat MRI. Diffcult to get history from her, doesn't know date, tangential in thought. Spoke to patient case manager who stated previously she was more cognitively intact. CT head complted and without acute changes. MRI L spine reviewed and chronic L1 compression, s/p vertebroplasty, L4 /L5 disc extrusion, no stenosis, no thecal sac deformity, L5/S1 mod L sided stenosis. Describes pain all over but is ambulating. . Continue pain mgmt, PT as tolerated, follow up nsgy rec'd.
[2017-12-12] MEDS ORDERED: MAGNESIUM OXIDE 400 MG TABLET (FP) PO SCH (10:00)
[2017-12-12] MEDS: DULoxetine HCL 30 MG CAPSULE.DR (FP) PO SCH (10:05)
[2017-12-12] MEDS: ASPIRIN 325 MG ENTERIC COATED TABLET (FP) PO SCH (10:05)
[2017-12-12] MEDS: PANTOPRAZOLE SODIUM 40 MG VIAL IVPUSH SCH (10:06)
[2017-12-12] MEDS ORDERED: PT OWN MED DRAWER 7, Y5N ONE ×2 (13:56→18:23)
[2017-12-12] MEDS: oxyCODONE HCL 5 MG TABLET PO PRN (14:00)
[2017-12-12] MEDS: BACITRACIN 3.5 GM OPTHALMIC OINT TUBE OU SCH ×3 (14:01→18:32)
--- NOTE | 2017-12-12 14:42 | PN ---
Progress Note, Physician History of Present Illness: Pt seen and examined at bedside. SHe is awake and alert. She denies shortness of breath. - Current Medication List Current Medications: Active Medications Albuterol/Ipratropium (Duoneb -) 1 amp NEB RQID [facility] Last Admin: 12/12/17 11:11 Dose: 1 amp Alprazolam (Xanax -) 0.5 mg PO Q8H PRN PRN Reason: anxeity Last Admin: 12/11/17 22:14 Dose: 0.5 mg Aspirin (Ecotrin -) 325 mg PO DAILY [facility] Last Admin: 12/12/17 10:05 Dose: 325 mg Bacitracin (Bacitracin Ophthalmic Oint -) 1 applic OU Q4HPO [facility] Last Admin: 12/12/17 14:10 Dose: Not Given Docusate Sodium (Colace -) [address] [facility] Last Admin: 12/11/17 22:14 Dose: 300 mg Duloxetine HCl (Cymbalta -) 30 mg PO DAILY [facility] Last Admin: 12/12/17 10:05 Dose: 30 mg Gabapentin (Neurontin Oral Liquid -) 250 mg PO TID [facility] Last Admin: 12/12/17 14:09 Dose: 250 mg Heparin Sodium (Porcine) (Heparin -) 5,000 unit SQ TID [facility] Last Admin: 12/12/17 14:01 Dose: 5,000 unit Magnesium Oxide (Mag-Ox -) 400 mg PO BID [facility] Last Admin: 12/12/17 10:05 Dose: 400 mg Melatonin (Melatonin) [address] [facility] Last Admin: 12/11/17 22:14 Dose: 10 mg Ondansetron HCl (Zofran Injection) 4 mg IVPB Q8H PRN PRN Reason: NAUSEA Oxycodone HCl (Roxicodone -) 5 mg PO Q6H PRN PRN Reason: PAIN 4-6 Last Admin: 12/12/17 14:00 Dose: 5 mg Pantoprazole Sodium (Protonix Iv) 40 mg IVPUSH BID [facility] Last Admin: 12/12/17 10:06 Dose: 40 mg - Objective Vital Signs: Vital Signs Temperature 97.8 F 12/12/17 09:00 Pulse Rate 87 12/12/17 09:00 Respiratory Rate 20 12/12/17 09:00 Blood Pressure 122/63 12/12/17 09:00 O2 Sat by Pulse Oximetry (%) 98 12/11/17 21:00 Constitutional: Yes: Calm Eyes: Yes: Conjunctiva Clear HENT: Yes: Atraumatic Neck: Yes: Supple Cardiovascular: Yes: S1, S2 Respiratory: Yes: CTA Bilaterally Gastrointestinal: Yes: Soft Genitourinary: Yes: WNL Musculoskeletal: Yes: WNL Edema: No Neurological: Yes: Oriented Psychiatric: Yes: Oriented Labs: CBC, BMP 12/12/17 07:00 12/12/17 07:00 Problem List - Problems (1) CKD (chronic kidney disease) Code(s): N18.9 - CHRONIC KIDNEY DISEASE, UNSPECIFIED Assessment/Plan Current Medications Generic Name Dose Route Start Last Admin Trade Name Freq PRN Reason Stop Dose Admin Albuterol/Ipratropium 1 amp 12/09/17 20:00 12/12/17 11:11 Duoneb - NEB 1 amp RQID [facility] Administration Alprazolam 0.5 mg 12/09/17 18:54 12/11/17 22:14 Xanax - PO 0.5 mg Q8H PRN Administration anxeity Aspirin 325 mg 12/10/17 10:00 12/12/17 10:05 Ecotrin - PO 325 mg DAILY [facility] Administration Bacitracin 1 applic 12/12/17 11:45 12/12/17 14:10 Bacitracin Ophthalmic Oint - OU Not Given Q4HPO [facility] Docusate Sodium 300 mg 12/10/17 22:00 12/11/17 22:14 Colace - PO 300 mg HS [facility] Administration Duloxetine HCl 30 mg 12/10/17 11:15 12/12/17 10:05 Cymbalta - PO 30 mg DAILY [facility] Administration Gabapentin 250 mg 12/11/17 14:00 12/12/17 14:09 Neurontin Oral Liquid - PO 250 mg TID [facility] Administration Heparin Sodium (Porcine) 5,000 unit 12/09/17 22:00 12/12/17 14:01 Heparin - SQ 5,000 unit TID [facility] Administration Magnesium Oxide 400 mg 12/12/17 10:00 12/12/17 10:05 Mag-Ox - PO 400 mg BID [facility] Administration Melatonin 10 mg 12/09/17 22:00 12/11/17 22:14 Melatonin PO 10 mg HS [facility] Administration Ondansetron HCl 4 mg 12/10/17 11:05 Zofran Injection IVPB Q8H PRN NAUSEA Oxycodone HCl 5 mg 12/09/17 18:54 12/12/17 14:00 Roxicodone - PO 5 mg Q6H PRN Administration PAIN 4-6 Pantoprazole Sodium 40 mg 12/09/17 22:00 12/12/17 10:06 Protonix Iv IVPUSH 40 mg BID JACKY Administration Impression 1. CKD with acute component 2. COPD 3. chronic back pain on opioids 4. anemia 5. anxiety 6. PNA 7. chf diastolic 8. hyponatremia Plan - renal function is improving - recommend that pt get an AV fistula, spoke to her at length - volume status is stable - will need close outpt follow up - avoid nsaids - titrate down the dose of gabapentin Dr Coe
[2017-12-12 17:34] VITALS: BP 135/81; PULSE 100; TEMP 97.5
== END 2017-12-12 19:21 | disposition home or self-care (01) | DRG 460 ==
LOC: JER 10:50 → JERBED 16:43 → J8W 12-10 10:07
PROVIDERS: ADMIT Family Medicine; ATTEND Family Medicine
DX: N17.9 Acute kidney failure, unspecified (principal); I12.9 Hypertensive chronic kidney disease with stage 1 through stage 4 chronic kidney disease, or unspecified chronic kidney disease; N18.4 Chronic kidney disease, stage 4 (severe); R10.32 Left lower quadrant pain; E87.6 Hypokalemia; D64.9 Anemia, unspecified; F41.8 Other specified anxiety disorders; M54.9 Dorsalgia, unspecified; E87.1 Hypo-osmolality and hyponatremia; M51.26 Other intervertebral disc displacement, lumbar region; N28.1 Cyst of kidney, acquired; E27.8 Other specified disorders of adrenal gland; J44.9 Chronic obstructive pulmonary disease, unspecified; J18.9 Pneumonia, unspecified organism; R74.8 Abnormal levels of other serum enzymes
CPT/HCPCS: 36415; 70450-TC; 71046-TC-FY; 72148-TC; 74176-TC; 80048; 80053; 80061; 81003; 81015; 82150; 82607; 82728; 82746; 83036; 83540; 83550; 83690; 83721; 83735; 84100; 84439; 84443; 84484; 85025; 85027; 87086; 94640; 97116-GP; 97161-GP; 99285-25; J0131; J1644; J7620

== ENCOUNTER 2017-12-20 21:48 | Inpatient (IN) | payer OTHER ==
--- NOTE | 2017-12-20 22:04 | PDOC ---
History of Present Illness - General Stated Complaint: BACK PAIN Time Seen by Provider: 12/20/17 21:56 History Source: Patient Exam Limitations: No Limitations - History of Present Illness Initial Comments: This is a 62 YOF with h/o PNA (admitted 11/02-11/13 of 2017), UTI, gastritis, CKD , HTN, HLD, asthma, chronic back pain with L45 herniated disc, anxiety, depression, HTN who was BIBA c/o diffuse abdominal pain worse in the LLQ and associated with nausea and one episode of NBNB vomiting, onset 3 days ago, but acutely worsened tonight. EMS notes that she was wretching on their arrival to her residence, but vitals were stable en route and they did not administer any medications. The patient additionally notes chills, mild chest tightness, and mild headache. She denies measured fever, diarrhea, constipation, black or bloody stool, burning on urination, hematuria, vaginal bleeding or discharge, recent falls/injuries, or other symptoms. Past History - Past Medical History Allergies/Adverse Reactions: Allergies Allergy/AdvReac Type Severity Reaction Status Date / Time levofloxacin [From Levaquin] Allergy Mild Itching Verified 12/20/17 22:14 Home Medications: Ambulatory Orders Methocarbamol [Robaxin -] 500 mg PO TID PRN 11/02/17 Gabapentin [Neurontin] 300 mg PO TID #42 capsule 11/13/17 Acetaminophen 325 mg PO Q6H 11/19/17 Albuterol 2.5/Ipratropium 0.5 [Duoneb -] 1 neb IH QID 11/19/17 Alprazolam [Xanax] 0.5 mg PO TID PRN 11/19/17 Heparin - 5,000 unit SQ TID 11/19/17 Melatonin 10 mg PO HS 11/19/17 Oxycodone HCl 5 mg PO QID PRN 11/19/17 Pantoprazole Sodium 40 mg PO DAILY 11/19/17 Aspirin Coated [Ecotrin -] 325 mg PO DAILY 11/25/17 Docusate Sodium [Colace -] 300 mg PO HS #30 capsule 12/12/17 Duloxetine HCl [Cymbalta -] 30 mg PO DAILY #30 capsule. 12/12/17 Magnesium Oxide [Mag-Ox -] 400 mg PO BID #6 tablet 12/12/17 Azithromycin Ophth Soln [Azasite 1% Ophth Soln -] 2 drop OP TID 5 Days #1 bottle 12/13/17 Erythromycin 0.5% Eye Ointment [Erythromycin 0.5% Eye Ointment -] 1 applic TP BID 5 Days #1 tube 12/13/17 Anemia: Yes Asthma: Yes Cancer: Yes (ovarian) Cardiac Disorders: Yes CVA: No COPD: Yes CHF: No DVT: No Dementia: No Diabetes: No GI Disorders: Yes (bleeding ulcer) Disorders: Yes (KIDNEY STONE;) HTN: Yes Hypercholesterolemia: Yes Kidney Stones: Yes Liver Disease: No Psychiatric Problems: Yes (ANXIETY, DEPRESSION) Seizures: No Thyroid Disease: Yes (hypothyroid) - Surgical History Abdominal Surgery: No Appendectomy: No Cardiac Surgery: No Cholecystectomy: No Lung Surgery: No Neurologic Surgery: No Orthopedic Surgery: Yes (B/L hip replacement (rt 2009; left 2012)) - Immunization History Td Vaccination: Yes TDAP Vaccination: No Immunization Up to Date: Yes - Suicide/Smoking/Psychosocial Hx Smoking Status: Yes Smoking History: Current some day smoker Years of Tobacco Use: 30 Have you smoked in the past 12 months: Yes Number of Cigarettes Smoked Daily: 4 If you are a former smoker, when did you quit?: refused booklet 07/21/14 Cigars Per Day: 0 'Breaking Loose' booklet given: 06/28/16 Hx Alcohol Use: No Drug/Substance Use Hx: Yes Substance Use Type: Cocaine, Marijuana Hx Substance Use Treatment: Yes Review of Systems - Review of Systems Able to Perform ROS?: Yes Constitutional: Yes: Chills, Malaise. No: Unexplained wgt Loss HEENTM: No: Nose Congestion, Throat Pain Respiratory: Yes: Cough. No: Shortness of Breath Cardiac (ROS): Yes: Chest Tightness (mild). No: Palpitations ABD/GI: Yes: Nausea, Vomiting, Other (abdominal pain). No: Constipated, Diarrhea : No: Burning, Dysuria Musculoskeletal: No: Back Pain, Neck Pain Integumentary: No: Bruising, Rash Neurological: No: Headache, Numbness, Tingling, Weakness, Dizziness Endocrine: No: Unexplained Weight Gain, Unexplained Weight Loss *Physical Exam - Physical Exam General Appearance: Yes: Nourished, Appropriately Dressed, Mild Distress, Other (uncomfortable appearing adult female who has a very bizarre affect, twitching intermittently, confused but mother states this is per her baseline, patient does not know the year or month) HEENT: positive: EOMI, Normal Voice, Hearing Grossly Normal. negative: Scleral Icterus (R), Scleral Icterus (L), Nasal Congestion Neck: positive: Trachea midline, Supple. negative: Tender, Rigid Respiratory/Chest: positive: Lungs Clear, Normal Breath Sounds, Other ( occasional productive cough). negative: Respiratory Distress, Crackles, Rhonchi , Stridor, Wheezing Cardiovascular: positive: Regular Rhythm, Regular Rate, S1, S2. negative: Edema , Murmur Gastrointestinal/Abdominal: positive: Normal Bowel Sounds, Tender (mild diffuse a bit worse in the LLQ), Soft. negative: Organomegaly, Pulsatile Mass, Protuberent, Guarding Musculoskeletal: positive: Normal Inspection. negative: CVA Tenderness, Decreased Range of Motion, Vertebral Tenderness Extremity: positive: Normal Inspection, Normal Range of Motion, Other (cap refill is 3 seconds). negative: Tender, Cyanosis Integumentary: positive: Normal Color, Dry, Warm. negative: Erythema, Rash, Bruising Neurologic: positive: gluing crew leader II-XII NML intact (grossly), Alert, Normal Mood/Affect , Normal Response, Motor Strength 5/5, Confused, Disoriented. negative: Fully Oriented, Facial Droop, Numbness, Sensory Deficit Heart Score/ECG Review - ECG Intrepretation Comment:: Sinus rhythm rate 82 with normal axis, grossly normal QT (QT interval is ~1 box fewer than half the R-R interval), computer interp states QTc 521 which I disagree with, no ST-T changes ED Treatment Course - LABORATORY CBC & Chemistry Diagram: 12/22/17 05:30 12/22/17 05:30 Medical Decision Making - Medical Decision Making Adult female Pt p/w left-sided abdominal pain. Initial Vital Signs Temp Pulse Resp BP Pulse Ox 97.7 F 82 19 156/93 96 12/20/17 21:50 12/20/17 21:50 12/20/17 21:50 12/20/17 21:50 12/20/17 21:50 Rectal temp is 100.3. Exam: As noted in Physical Exam section. DDX IBNLT: diverticulitis wwo abscess or perforation, colitis, UTI/ pyelonephritis, ovarian torsion, PID, TOA, ovarian cyst, malignancy, hernia, AAA /AD, pancreatitis, appendicitis, gastritis, PUD, ACS, renal colic, SBO, bowel ischemia, bowel perforation, cholecystitis, musculoskeletal, constipation, etc. W/U ordered: CBCD CMP UA UCx CT Abdomen/Pelvis with IV and PO contrast TX ordered: IVF, Ofirmev, Zofran Patient is a very difficult stick. Patient's RN and charge account authorizer try for PIV and it cannot be placed. I try twice for a RUE US guided IV and it cannot be placed but BCx can be drawn. Dr. Downey is able to place a LUE PIV with US guidance, draws and flushes. 12/21/17 00:59 Repeat vitals BP 150/88, HR 84, Pulse ox 98% on RA Patient states still feels chills. Ofirmev and IVF running. Laboratory Tests 12/20/17 12/21/17 12/21/17 22:54 00:10 00:10 WBC 10.3 H RBC 3.81 Hgb 10.9 Hct 31.7 L D MCV 83.3 MCH 28.7 MCHC 34.5 RDW 16.9 H Plt Count 453 H D MPV 7.8 Absolute Neuts (auto) 7.9 Neutrophils % 76.3 Lymphocytes % 14.4 D Monocytes % 6.4 Eosinophils % 1.9 Basophils % 1.0 Nucleated RBC % 0 PT with INR INR Sodium 130 L Potassium 2.3 L* Chloride 94 L Carbon Dioxide 21 Anion Gap 15 BUN 57 H Creatinine 4.9 H Creat Clearance w eGFR 9.04 Random Glucose 95 Lactic Acid Calcium 9.0 Magnesium 2.0 Total Bilirubin 0.5 AST 13 L ALT 17 Alkaline Phosphatase 255 H D Troponin I Total Protein 7.8 Albumin 3.7 Lipase Urine Color Ltyellow Urine Appearance Clear Urine pH 6.0 Ur Specific [place] 1.011 Urine Protein 3+ H Urine Glucose (UA) 2+ H Urine Ketones Negative Urine Blood 1+ H Urine Nitrite Negative Urine Bilirubin Negative Urine Urobilinogen Negative Ur Leukocyte Esterase Negative Urine WBC (Auto) 7 Urine RBC (Auto) 3 Ur Epithelial Cells Rare Urine Mucus Rare 12/21/17 12/21/17 12/21/17 00:10 00:10 00:10 WBC RBC Hgb Hct MCV MCH MCHC RDW Plt Count MPV Absolute Neuts (auto) Neutrophils % Lymphocytes % Monocytes % Eosinophils % Basophils % Nucleated RBC % PT with INR 13.40 H INR 1.19 H Sodium Potassium Chloride Carbon Dioxide Anion Gap BUN Creatinine Creat Clearance w eGFR Random Glucose Lactic Acid 1.0 Calcium Magnesium Total Bilirubin AST ALT Alkaline Phosphatase Troponin I Total Protein Albumin Lipase 400 H Urine Color Urine Appearance Urine pH Ur Specific [place] Urine Protein Urine Glucose (UA) Urine Ketones Urine Blood Urine Nitrite Urine Bilirubin Urine Urobilinogen Ur Leukocyte Esterase Urine WBC (Auto) Urine RBC (Auto) Ur Epithelial Cells Urine Mucus 12/21/17 00:10 WBC RBC Hgb Hct MCV MCH MCHC RDW Plt Count MPV Absolute Neuts (auto) Neutrophils % Lymphocytes % Monocytes % Eosinophils % Basophils % Nucleated RBC % PT with INR INR Sodium Potassium Chloride Carbon Dioxide Anion Gap BUN Creatinine Creat Clearance w eGFR Random Glucose Lactic Acid Calcium Magnesium Total Bilirubin AST ALT Alkaline Phosphatase Troponin I 0.03 Total Protein Albumin Lipase Urine Color Urine Appearance Urine pH Ur Specific [place] Urine Protein Urine Glucose (UA) Urine Ketones Urine Blood Urine Nitrite Urine Bilirubin Urine Urobilinogen Ur Leukocyte Esterase Urine WBC (Auto) Urine RBC (Auto) Ur Epithelial Cells Urine Mucus 12/21/17 01:12 Lab called with result of potassium =2.3. 40 mg K-dur PO ordered. Placed empiric abx orders to cover for GI or PNA, Vancomycin/Zosyn. Ordered additional 1000cc IVF. Patient to get EKG then go to CT. 12/21/17 01:53 Patient's care endorsed to night team at the end of my shift pending CT and likely admission. *DC/Admit/Observation/Transfer Diagnosis at time of Disposition: Hypokalemia, Elevated lipase, Alkaline phosphatase elevation, Thrombocytosis, Chronic kidney disease, Abdominal pain, QT prolongation - Discharge Dispostion Condition at time of disposition: Guarded - Referrals - Patient Instructions - Post Discharge Activity
[2017-12-20] MEDS ORDERED: ONDANSETRON 4 MG/2 ML VIAL IVPUSH ONE (22:06)
[2017-12-20] MEDS ORDERED: SODIUM CHLORIDE 0.9% 500 ML INFUS.BAG IV ONE (22:07)
[2017-12-20] MEDS ORDERED: ACETAMINOPHEN 1000 MG/100 ML VIAL (NON FORMULARY) IVPB ONE (22:07)
[2017-12-20 23:04] LABS: URINE APPEARANCE CLEAR; URINE BILIRUBIN NEGATIVE (<2.0 mg/dL); URINE COLOR LTYELLOW; URINE GLUCOSE (UA) 2+ (NEGATIVE); URINE KETONE NEGATIVE (NEGATIVE); URINE LEUK ESTERASE NEGATIVE (NEGATIVE); URINE NITRITE NEGATIVE (NEGATIVE); URINE UROBILINOGEN NEGATIVE mg/dL (0.2-1.0)
[2017-12-20 23:08] LABS: URINE PROTEIN 3+ (NEGATIVE)
[2017-12-20 23:09] LABS: EPI CELLS RARE /HPF (FEW); URINE MUCUS RARE
--- NOTE | 2017-12-21 00:30 | PDOC ---
Attending Attestation - Resident Resident Name: Shy Rodriges - ED Attending Attestation I have performed the following: I have examined & evaluated the patient, The case was reviewed & discussed with the resident, I agree w/resident's findings & plan, Exceptions are as noted - Medical Decision Making 12/21/17 00:28 62 yo F with h/o copd, recenlty admitted 2 mo ago for pna, anemia, ckd, chronic pain , lumbar back disease here today c/o n/v and abd pain. pt states she lives at home with her son. has had cough productive of phlegm. emesis x 4 , multiple episodes of emesis en route. no f/c febrile in ed 100.2. differential: pna, copd, uti, diverticulitis, uti. <Paulina Downey - Last Filed: 12/21/17 00:27> - HPI HPI: 12/21/17 00:34 The patient is a 62 year old female with a significant past medical history of recent admission two months ago for pna, CKD, anemia, asthma, ovarian cancer, COPD, bleeding ulcer, kidney stone, HLD, hypothyroidism, lumbar back disease, and HTN who presents to the ER with diffuse abdominal pain for the past three days. Patient states the abdominal pain is worse in the left lower quadrant and is associated with nausea and multiple episodes of nonbloody, nonbilious vomit. The patient is also complaining of chills, cough productive of clear phlegm, and mild chest tightness but denies any other symptoms. The patient denies shortness of breath, headache, and dizziness. Denies fever, nausea, vomit, diarrhea, and constipation. Denies dysuria, frequency, urgency, and hematuria. Allergies: NKA Past surgical history: None reported. Social history: No reported alcohol, drug, or cigarette use. <Dara Leon - Last Filed: 12/21/17 00:34> - Resident Resident Name: Shy Rodriges - Physicial Exam PE: 12/22/17 02:51 agree with resident exam - Medical Decision Making 12/21/17 04:13 Patient Name: AWAIS ROJAS THIS IS A PRELIMINARY REPORT FROM [facility] DATE OF SERVICE: 2017-12-21 03:33:53 IMAGES: [id number] EXAM: CT abdomen without contrast and CT pelvis without contrast HISTORY: 62-year-old female with abdominal pain COMPARISON: None. FINDINGS: Mild bilateral basilar atelectasis scarring and pneumonia. Small pericardial effusion. Moderate 11.5 x 3.9 x 3.9 cm gallbladder distention. Lack of intravenous contrast limits this exam. Noncontrast evaluation liver pancreas spleen appears unremarkable. Moderate multifocal renal cortical atrophy and scarring. Nonspecific complex bilateral renal cortical cysts or masses. Bilateral adrenal nodules most likely due to benign adrenal adenomas. Moderate to severe calcified arteriosclerosis of the abdominal and pelvic vasculature. Small hiatal hernia. Lack of oral contrast in the stomach limits this exam. Mild nonspecific wall thickening of the duodenum most likely due to mild infectious or inflammatory duodenitis. Oral contrast is seen in the distal small bowel and colon. Appendix appears unremarkable. No appendicitis. Diverticulosis of the colon without diverticulitis. Bilateral total hip arthroplasties. Metal beam hardening streak artifacts obscure detail in the pelvis and the bladder and uterus are incompletely visualized. Mild nonspecific heterogeneous enlargement of the fundal uterine myometrium may be due to fibroids. Mild nonspecific bladder wall thickening of the anterior superior bladder wall may be due to infectious cystitis. Moderate left convex lumbar scoliosis. Bridging lower thoracic osteophytes. Chronic 50% CONFIDENTIALITY NOTICE: This information is intended only for the use of the recipient(s) named above. If you are not the intended recipient, or a person responsible for delivering it to the intended recipient, you are hereby notified that any disclosure, copying, distribution or use of any of the information contained in or attached to this transmission is STRICTLY PROHIBITED. If you have received this transmission in error, please immediately notify [facility] and destroy the original transmission and its attachments without saving them in any manner [address] [place] [address] [place] [address] Phone: [phone].[phone]) Fax: Email: [email or web address] Patient Information: : 1955 Name: BOB ERNANDEZ Sex: F Study Description: CT ABDOMEN AND PELVIS Modality: CT Location: [facility] Referring Physician: RUTH PITT superior endplate compression fracture of L1 with mild retropulsion of the posterior superior endplate fracture fragment and mild to moderate spinal canal stenosis with mild flattening and deformity of the ventral aspect of the conus. Moderate to severe multilevel degenerative disc disease and degenerative joint disease of the facets throughout the middle and lower lumbar levels with moderate multilevel spinal canal narrowing and moderate to severe multilevel neural foraminal narrowing throughout the middle and lower lumbar levels. IMPRESSION: Mild bilateral basilar atelectasis scarring and pneumonia. Mild nonspecific wall thickening of the duodenum most likely due to mild infectious or inflammatory duodenitis. Moderate gallbladder distention. If clinically indicated recommend correlation with Right Upper Quadrant Abdominal Ultrasound. Moderate multifocal renal cortical atrophy and scarring with nonspecific complex bilateral renal cortical cysts or masses. If there is a clinical concern for malignancy then follow-up outpatient MRI Kidneys With Contrast may be needed. Mild nonspecific heterogeneous enlargement of the fundal uterine myometrium may be due to fibroids. Mild nonspecific bladder wall thickening of the anterior superior bladder wall may be due to infectious cystitis. Moderate to severe multilevel degenerative disc disease and degenerative joint disease of the facets throughout the middle and lower lumbar levels with moderate multilevel spinal canal narrowing and moderate to severe multilevel neural foraminal narrowing throughout the middle and lower lumbar levels. Chronic 50% superior endplate compression fracture of L1 with mild retropulsion of the posterior superior endplate fracture fragment and mild to moderate spinal canal stenosis with mild flattening and deformity of the ventral aspect of the conus. If clinically indicated follow-up outpatient MRI lumbar spine may be needed. This CT exam was performed using one or more of the following dose reduction techniques: automated exposure control, adjustment of the mA and/or kV according to patient size, use of iterative reconstruction technique. THIS DOCUMENT HAS BEEN ELECTRONICALLY SIGNED <Madisyn Thao - Last Filed: 12/22/17 02:51>
[2017-12-21] MEDS ORDERED: SODIUM CHLORIDE 0.9% 500 ML INFUS.BAG IV ONE (00:39)
[2017-12-21 00:41] LABS: EOS % 1.9 % (0-4.5); HEMATOCRIT 31.7 % (32.4-45.2); HEMOGLOBIN 10.9 GM/dL (10.7-15.3); LYMPH % 14.4 % (8-40); MCH 28.7 pg (25.7-33.7); MCHC 34.5 g/dl (32.0-36.0); MEAN CELL VOLUME 83.3 fl (80-96); MEAN PLT VOLUME 7.8 fl (7.5-11.1); MONO % 6.4 % (3.8-10.2); NEUT % 76.3 % (42.8-82.8); PLATELET COUNT 453 K/MM3 (134-434); RBC 3.81 M/mm3 (3.60-5.2); RDW 16.9 % (11.6-15.6); WHITE BLOOD COUNT 10.3 K/mm3 (4.0-10.0)
[2017-12-21 00:54] LABS: INR 1.19 (0.83-1.09); PROTHROMBIN TIME (PATIENT) 13.4 SEC (9.7-13.0)
[2017-12-21 01:07] LABS: ALBUMIN 3.7 g/dl (3.4-5.0); ALK PHOS 255 U/L (45-117); ANION GAP 15 MMOL/L (8-16); BILIRUBIN,TOTAL 0.5 mg/dL (0.2-1.0); BLOOD UREA NITROGEN 57 mg/dL (7-18); CHLORIDE 94 mmol/L (98-107); CO2 21 mmol/L (21-32); CREATININE 4.9 mg/dL (0.55-1.02); GLUCOSE,RANDOM 95 mg/dL (74-106); SGOT/AST 13 U/L (15-37); SGPT/ALT 17 U/L (12-78); SODIUM 130 mmol/L (136-145); TOT PROT 7.8 g/dl (6.4-8.2)
[2017-12-21 01:08] LABS: POTASSIUM 2.3 mmol/L (3.5-5.1)
[2017-12-21] MEDS ORDERED: POTASSIUM CHLORIDE TABS 20 MEQ TABLET.ER (FP) PO ONE (01:10)
[2017-12-21] MEDS ORDERED: PIPERACILLIN/TAZOB 4.5 GM 4.5 GM in DEXTROSE 5%-WATER 100 ML IVPB ONE (01:10)
[2017-12-21] MEDS ORDERED: VANCOMYCIN 1,500 MG in DEXTROSE 5%-WATER - 500 ML IVPB ONE (01:10)
[2017-12-21] MEDS ORDERED: MAGNESIUM SULF 50% (8.12 MEQ/2 ML-1 GM VIAL) IVPB ONE (01:53)
--- NOTE | 2017-12-21 02:13 | PDOC ---
*Physical Exam - Vital Signs Last Vital Signs Temp Pulse Resp BP Pulse Ox 100.3 F H 86 22 156/91 97 12/20/17 22:00 12/20/17 22:00 12/20/17 22:00 12/20/17 22:00 12/20/17 22:00 <Eleno Manzano - Last Filed: 12/21/17 04:17> - Vital Signs Last Vital Signs Temp Pulse Resp BP Pulse Ox 100.3 F H 86 22 156/91 97 12/20/17 22:00 12/20/17 22:00 12/20/17 22:00 12/20/17 22:00 12/20/17 22:00 - Physical Exam Comments: 12/21/17 02:22 Appearance: comfortable. ambulates unassisted. HEENT: head is normocephalic, atraumatic. EOMI. PERRLA. Neck: supple. Full ROM. Heart: regular rhythm. no murmurs, rubs or gallops. No pericardial friction rub. Lungs: clear to auscultation bilaterally. no crackles, rhonchi or wheezing. no stridor. Abdomen: soft. tenderness to palpation of suprapubic area. normal bowel sounds. no rebound, guarding, masses. Extremities: Peripheral pulses intact and equal. No lower extremity edema. Neurological: Alert. Oriented x3. CN 2-12 grossly intact. Moves all four extremities. <Lena Page - Last Filed: 12/21/17 04:47> Heart Score/ECG Review - ECG Impressions Comment:: 12/21/17 02:47 EKG performed at 0232: Rate 82, regular rhythm, normal axis, no acute ST changes, prolonged QT, QTc 521. <Lena Page - Last Filed: 12/21/17 04:47> ED Treatment Course - LABORATORY CBC & Chemistry Diagram: 12/21/17 00:10 12/21/17 00:10 - ADDITIONAL ORDERS Additional order review: Laboratory Results 12/21/17 12/21/17 12/21/17 00:10 00:10 00:10 PT with INR 13.40 H INR 1.19 H Sodium Potassium Chloride Carbon Dioxide Anion Gap BUN Creatinine Creat Clearance w eGFR Random Glucose Lactic Acid Calcium Magnesium Total Bilirubin AST ALT Alkaline Phosphatase Troponin I 0.03 Total Protein Albumin Lipase Urine Color Urine Appearance Urine pH Ur Specific Dunellen Urine Protein Urine Glucose (UA) Urine Ketones Urine Blood Urine Nitrite Urine Bilirubin Urine Urobilinogen Ur Leukocyte Esterase Urine WBC (Auto) Urine RBC (Auto) Ur Epithelial Cells Urine Mucus Blood Type A POSITIVE Antibody Screen Negative 12/21/17 12/21/17 12/21/17 00:10 00:10 00:10 PT with INR INR Sodium 130 L Potassium 2.3 L* Chloride 94 L Carbon Dioxide 21 Anion Gap 15 BUN 57 H Creatinine 4.9 H Creat Clearance w eGFR 9.04 Random Glucose 95 Lactic Acid 1.0 Calcium 9.0 Magnesium 2.0 Total Bilirubin 0.5 AST 13 L ALT 17 Alkaline Phosphatase 255 H D Troponin I Total Protein 7.8 Albumin 3.7 Lipase 400 H Urine Color Urine Appearance Urine pH Ur Specific [place] Urine Protein Urine Glucose (UA) Urine Ketones Urine Blood Urine Nitrite Urine Bilirubin Urine Urobilinogen Ur Leukocyte Esterase Urine WBC (Auto) Urine RBC (Auto) Ur Epithelial Cells Urine Mucus Blood Type Antibody Screen 12/20/17 22:54 PT with INR INR Sodium Potassium Chloride Carbon Dioxide Anion Gap BUN Creatinine Creat Clearance w eGFR Random Glucose Lactic Acid Calcium Magnesium Total Bilirubin AST ALT Alkaline Phosphatase Troponin I Total Protein Albumin Lipase Urine Color Ltyellow Urine Appearance Clear Urine pH 6.0 Ur Specific Dunellen 1.011 Urine Protein 3+ H Urine Glucose (UA) 2+ H Urine Ketones Negative Urine Blood 1+ H Urine Nitrite Negative Urine Bilirubin Negative Urine Urobilinogen Negative Ur Leukocyte Esterase Negative Urine WBC (Auto) 7 Urine RBC (Auto) 3 Ur Epithelial Cells Rare Urine Mucus Rare Blood Type Antibody Screen 12/21/17 00:10 RBC 3.81 MCV 83.3 MCHC 34.5 RDW 16.9 H MPV 7.8 Neutrophils % 76.3 Lymphocytes % 14.4 D Monocytes % 6.4 Eosinophils % 1.9 Basophils % 1.0 - RADIOLOGY Radiograph Interpretation: 12/21/17 04:18 EXAM: CT abdomen without contrast and CT pelvis without contrast HISTORY: 62-year-old female with abdominal pain COMPARISON: None. FINDINGS: Mild bilateral basilar atelectasis scarring and pneumonia. Small pericardial effusion. Moderate 11.5 x 3.9 x 3.9 cm gallbladder distention. Lack of intravenous contrast limits this exam. Noncontrast evaluation liver pancreas spleen appears unremarkable. Moderate multifocal renal cortical atrophy and scarring. Nonspecific complex bilateral renal cortical cysts or masses. Bilateral adrenal nodules most likely due to benign adrenal adenomas. Moderate to severe calcified arteriosclerosis of the abdominal and pelvic vasculature. Small hiatal hernia. Lack of oral contrast in the stomach limits this exam. Mild nonspecific wall thickening of the duodenum most likely due to mild infectious or inflammatory duodenitis. Oral contrast is seen in the distal small bowel and colon. Appendix appears unremarkable. No appendicitis. Diverticulosis of the colon without diverticulitis. Bilateral total hip arthroplasties. Metal beam hardening streak artifacts obscure detail in the pelvis and the bladder and uterus are incompletely visualized. Mild nonspecific heterogeneous enlargement of the fundal uterine myometrium may be due to fibroids. Mild nonspecific bladder wall thickening of the anterior superior bladder wall may be due to infectious cystitis. Moderate left convex lumbar scoliosis. Bridging lower thoracic osteophytes. Chronic 50% superior endplate compression fracture of L1 with mild retropulsion of the posterior superior endplate fracture fragment and mild to moderate spinal canal stenosis with mild flattening and deformity of the ventral aspect of the conus. Moderate to severe multilevel degenerative disc disease and degenerative joint disease of the facets throughout the middle and lower lumbar levels with moderate multilevel spinal canal narrowing and moderate to severe multilevel neural foraminal narrowing throughout the middle and lower lumbar levels. IMPRESSION: Mild bilateral basilar atelectasis scarring and pneumonia. Mild nonspecific wall thickening of the duodenum most likely due to mild infectious or inflammatory duodenitis. Moderate gallbladder distention. If clinically indicated recommend correlation with Right Upper Quadrant Abdominal Ultrasound. Moderate multifocal renal cortical atrophy and scarring with nonspecific complex bilateral renal cortical cysts or masses. If there is a clinical concern for malignancy then follow-up outpatient MRI Kidneys With Contrast may be needed. Mild nonspecific heterogeneous enlargement of the fundal uterine myometrium may be due to fibroids. Mild nonspecific bladder wall thickening of the anterior superior bladder wall may be due to infectious cystitis. Moderate to severe multilevel degenerative disc disease and degenerative joint disease of the facets throughout the middle and lower lumbar levels with moderate multilevel spinal canal narrowing and moderate to severe multilevel neural foraminal narrowing throughout the middle and lower lumbar levels. Chronic 50% superior endplate compression fracture of L1 with mild retropulsion of the posterior superior endplate fracture fragment and mild to moderate spinal canal stenosis with mild flattening and deformity of the ventral aspect of the conus. If clinically indicated follow-up outpatient MRI lumbar spine may be needed. Mild nonspecific bladder wall thickening of the anterior superior bladder wall may be due to infectious cystitis. Moderate to severe multilevel degenerative disc disease and degenerative joint disease of the facets throughout the middle and lower lumbar levels with moderate multilevel spinal canal narrowing and moderate to severe multilevel neural foraminal narrowing throughout the middle and lower lumbar levels. Chronic 50% superior endplate compression fracture of L1 with mild retropulsion of the posterior superior endplate fracture fragment and mild to moderate spinal canal stenosis with mild flattening and deformity of the ventral aspect of the conus. If clinically indicated follow-up outpatient MRI lumbar spine may be needed Read by: Chiki Corona MD - Medications Given in the ED: ED Medications Discontinued Medications Generic Name Dose Route Start Last Admin Trade Name Freq PRN Reason Stop Dose Admin Acetaminophen 1,000 mg 12/20/17 22:07 12/20/17 22:10 Ofirmev Injection - IVPB 12/20/17 22:08 1,000 mg ONCE ONE Administration Vancomycin HCl 1,500 mg/ 500 mls @ 250 mls/hr 12/21/17 01:10 12/21/17 01:29 Dextrose IVPB 12/21/17 03:09 250 mls/hr ONCE ONE Administration Protocol Piperacillin Sod/Tazobactam 100 mls @ 200 mls/hr 12/21/17 01:10 12/21/17 01: 10 Sod 4.5 gm/ Dextrose IVPB 12/21/17 01:39 200 mls/hr ONCE ONE Administration Protocol Magnesium Sulfate 2 gm 12/21/17 01:53 12/21/17 01:55 Magnesium Sulfate IVPB 12/21/17 01:54 2 gm ONCE ONE Administration Ondansetron HCl 8 mg 12/20/17 22:06 12/20/17 22:10 Zofran Injection IVPUSH 12/20/17 22:07 8 mg NOW ONE Administration Potassium Chloride 40 meq 12/21/17 01:10 12/21/17 01:10 K-Dur - PO 12/21/17 01:11 40 meq ONCE ONE Administration Sodium Chloride 1,000 ml 12/20/17 22:07 12/20/17 22:10 Normal Saline - IV 12/20/17 22:08 1,000 ml ONCE ONE Administration Sodium Chloride 1,000 ml 12/21/17 00:39 12/21/17 01:46 Normal Saline - IV 12/21/17 00:40 1,000 ml ONCE ONE Administration <Eleno Manzano - Last Filed: 12/21/17 04:17> - LABORATORY CBC & Chemistry Diagram: 12/21/17 00:10 12/21/17 00:10 - ADDITIONAL ORDERS Additional order review: Laboratory Results 12/21/17 12/21/17 12/21/17 00:10 00:10 00:10 PT with INR 13.40 H INR 1.19 H Sodium Potassium Chloride Carbon Dioxide Anion Gap BUN Creatinine Creat Clearance w eGFR Random Glucose Lactic Acid Calcium Magnesium Total Bilirubin AST ALT Alkaline Phosphatase Troponin I 0.03 Total Protein Albumin Lipase 400 H Urine Color Urine Appearance Urine pH Ur Specific [place] Urine Protein Urine Glucose (UA) Urine Ketones Urine Blood Urine Nitrite Urine Bilirubin Urine Urobilinogen Ur Leukocyte Esterase Urine WBC (Auto) Urine RBC (Auto) Ur Epithelial Cells Urine Mucus 12/21/17 12/21/17 12/20/17 00:10 00:10 22:54 PT with INR INR Sodium 130 L Potassium 2.3 L* Chloride 94 L Carbon Dioxide 21 Anion Gap 15 BUN 57 H Creatinine 4.9 H Creat Clearance w eGFR 9.04 Random Glucose 95 Lactic Acid 1.0 Calcium 9.0 Magnesium 2.0 Total Bilirubin 0.5 AST 13 L ALT 17 Alkaline Phosphatase 255 H D Troponin I Total Protein 7.8 Albumin 3.7 Lipase Urine Color Ltyellow Urine Appearance Clear Urine pH 6.0 Ur Specific [place] 1.011 Urine Protein 3+ H Urine Glucose (UA) 2+ H Urine Ketones Negative Urine Blood 1+ H Urine Nitrite Negative Urine Bilirubin Negative Urine Urobilinogen Negative Ur Leukocyte Esterase Negative Urine WBC (Auto) 7 Urine RBC (Auto) 3 Ur Epithelial Cells Rare Urine Mucus Rare 12/21/17 00:10 RBC 3.81 MCV 83.3 MCHC 34.5 RDW 16.9 H MPV 7.8 Neutrophils % 76.3 Lymphocytes % 14.4 D Monocytes % 6.4 Eosinophils % 1.9 Basophils % 1.0 - Medications Given in the ED: ED Medications Discontinued Medications Generic Name Dose Route Start Last Admin Trade Name Freq PRN Reason Stop Dose Admin Acetaminophen 1,000 mg 12/20/17 22:07 12/20/17 22:10 Ofirmev Injection - IVPB 12/20/17 22:08 1,000 mg ONCE ONE Administration Piperacillin Sod/Tazobactam 100 mls @ 200 mls/hr 12/21/17 01:10 12/21/17 01: 10 Sod 4.5 gm/ Dextrose IVPB 12/21/17 01:39 200 mls/hr ONCE ONE Administration Protocol Ondansetron HCl 8 mg 12/20/17 22:06 12/20/17 22:10 Zofran Injection IVPUSH 12/20/17 22:07 8 mg NOW ONE Administration Potassium Chloride 40 meq 12/21/17 01:10 12/21/17 01:10 K-Dur - PO 12/21/17 01:11 40 meq ONCE ONE Administration Sodium Chloride 1,000 ml 12/20/17 22:07 12/20/17 22:10 Normal Saline - IV 12/20/17 22:08 1,000 ml ONCE ONE Administration Sodium Chloride 1,000 ml 12/21/17 00:39 12/21/17 01:46 Normal Saline - IV 12/21/17 00:40 1,000 ml ONCE ONE Administration <Lena Page - Last Filed: 12/21/17 04:47> Progress Note - Progress Note Progress Note: Pt was signed out to me by Dr. Rodriges. 62 year old female h/o PNA (admitted 11/02-11/13), UTI, gastritis, CKD, HTN, HLD, asthma, chronic back pain with L45 herniated disc, anxiety, depression , HTN, elevated lipase, elevated ALP who was BIBA c/o diffuse abdominal pain worse in the LLQ and associated with nausea and one episode of vomiting, onset 3 days ago, but acutely worsened tonight. EMS notes that she was wretching on their arrival to her residence, but vitals were stable en route and they did not administer any medications. Febrile 100.3 upon presentation. Tenderness diffusely, worse in LLQ. Leukocytosis - 10.3 Thrombocytosis - 453 Hypokalemia - 2.3 Kidney failure - Cr 4.9 ALP 255 Lipase 400 UA - 3+ protein, 2+ glucose, 1+ blood, no evidence of UTI. Troponin normal. Magnesium normal. Lactate normal. Potassium 40 PO given. EKG - NSR. Prolonged QT. CT Abdomen/Pelvis report: mild nonspecfic wall thickening of the duodenum most likely due to mild infectious or inflammatory duodenitis. Moderate gall bladder distension. Pt will be admitted for hypokalemia, EKG changes, duodenitis, abdominal pain. I spoke with the admitting team, who will assume care for the patient. Pt will be admitted to Dr. Green's service. <Lena Page - Last Filed: 12/21/17 04:47> *DC/Admit/Observation/Transfer - Attestations Scribe Attestion: 12/21/17 04:19 Documentation prepared by Eleno Manzano, acting as emergency medical tech for Madisyn Thao MD. <Eleno Manzano - Last Filed: 12/21/17 04:17> - Discharge Dispostion Decision to Admit order: Yes <Lena Page - Last Filed: 12/21/17 04:47> Diagnosis at time of Disposition: Hypokalemia, Elevated lipase, Alkaline phosphatase elevation, Thrombocytosis, Chronic kidney disease, Abdominal pain, QT prolongation - Discharge Dispostion Condition at time of disposition: Guarded
[2017-12-21] MEDS ORDERED: KCL 10 MEQ IVPB 10 MEQ/100 ML INFUS.BAG IVPB SCH (05:00)
--- NOTE | 2017-12-21 05:03 | HP ---
Admitting History and Physical - Primary Care Physician PCP: Lisette White - Admission Chief Complaint: Abdominal Pain, Back Pain, Nausea, Vomiting History of Present Illness: This is a 62 y/o woman with a significant medical history of: Asthma, COPD, Anemia, CKD, CHF, Chronic Back Pain (L4 L5 herniated discs). Who presents to the ED with right lower abdominal pain, back pain, with episodes of non-bilious , non-bloody vomiting x 1 day. Patient had a recent hospital admission 12/09- for back pain. Patient denies fever, chills, SOB, CP, palpitations, diarrhea , constipation, dysuria. 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: Peripheral Neuropathy Cardiovascular: Yes: HTN, Hyperlipdemia Pulmonary: Yes: COPD Gastrointestinal: Yes: Gastritis Renal/: Yes: Renal Inusuff ...LMP: 07/25/12 Heme/Onc: Yes: Anemia Psych: Yes: Anxiety, Depression Musculoskeletal: Yes: Chronic low back pain - Past Surgical History Past Surgical History: Yes: Joint Replacement (hip replacement) - Smoking History Smoking history: Current some day smoker Have you smoked in the past 12 months: Yes Aproximately how many cigarettes per day: 4 If you are a former smoker, when did you quit?: refused booklet 07/21/14 - Alcohol/Substance Use Hx Alcohol Use: No History of Substance Use: reports: Marijuana - Social History Usual Living Arrangement: Yes: Alone ADL: Independent Occupation: not working, SSI History of Recent Travel: No Home Medications - Allergies Allergies/Adverse Reactions: Allergies Allergy/AdvReac Type Severity Reaction Status Date / Time levofloxacin [From Levaquin] Allergy Mild Itching Verified 12/20/17 22:14 - Home Medications Home Medications: Ambulatory Orders Methocarbamol [Robaxin -] 500 mg PO TID PRN 11/02/17 Gabapentin [Neurontin] 300 mg PO TID #42 capsule 11/13/17 Acetaminophen 325 mg PO Q6H 11/19/17 Albuterol 2.5/Ipratropium 0.5 [Duoneb -] 1 neb IH QID 11/19/17 Alprazolam [Xanax] 0.5 mg PO TID PRN 11/19/17 Heparin - 5,000 unit SQ TID 11/19/17 Melatonin 10 mg PO HS 11/19/17 Oxycodone HCl 5 mg PO QID PRN 11/19/17 Pantoprazole Sodium 40 mg PO DAILY 11/19/17 Aspirin Coated [Ecotrin -] 325 mg PO DAILY 11/25/17 Docusate Sodium [Colace -] 300 mg PO HS #30 capsule 12/12/17 Duloxetine HCl [Cymbalta -] 30 mg PO DAILY #30 capsule.dr 12/12/17 Magnesium Oxide [Mag-Ox -] 400 mg PO BID #6 tablet 12/12/17 Azithromycin Ophth Soln [Azasite 1% Ophth Soln -] 2 drop OP TID 5 Days #1 bottle 12/13/17 Erythromycin 0.5% Eye Ointment [Erythromycin 0.5% Eye Ointment -] 1 applic TP BID 5 Days #1 tube 12/13/17 Family Disease History - Family Disease History Family Disease History: Other: Father (alive), Mother (alive), Sister (alive), Son (23 yo old - alive - healthy) Review of Systems - Review of Systems Constitutional: reports: No Symptoms Eyes: reports: No Symptoms HENT: reports: No Symptoms Neck: reports: No Symptoms Cardiovascular: reports: No Symptoms Respiratory: reports: No Symptoms Gastrointestinal: reports: Abdominal Pain, Nausea, Vomiting Genitourinary: reports: No Symptoms Breasts: reports: No Symptoms Reported Musculoskeletal: reports: Back Pain Integumentary: reports: No Symptoms Neurological: reports: No Symptoms Endocrine: reports: No Symptoms Hematology/Lymphatic: reports: No Symptoms Psychiatric: reports: No Symptoms Physical Examination Vital Signs: Vital Signs Temperature 100.3 F H 12/20/17 22:00 Pulse Rate 86 12/20/17 22:00 Respiratory Rate 22 12/20/17 22:00 Blood Pressure 156/91 12/20/17 22:00 O2 Sat by Pulse Oximetry (%) 97 12/20/17 22:00 Constitutional: Yes: Anxious Eyes: Yes: WNL, Conjunctiva Clear, EOM Intact, PERRL HENT: Yes: WNL, Atraumatic, Normocephalic Neck: Yes: WNL, Supple, Trachea Midline Cardiovascular: Yes: WNL, Regular Rate and Rhythm, S1, S2 Respiratory: Yes: Diminished (bases) Gastrointestinal: Yes: Soft, Hyperactive Bowel Sounds, Tenderness (right lower abdomen) ...Rectal Exam: Yes: Deferred Renal/: Yes: WNL Breast(s): Yes: WNL Musculoskeletal: Yes: Back Pain Extremities: Yes: WNL Edema: No Peripheral Pulses WNL: Yes Neurological: Yes: WNL, Alert, Oriented, Cran Nerves II-XII Intact ...Motor Strength: WNL Psychiatric: Yes: WNL, Alert, Oriented Labs: CBC, BMP 12/21/17 00:10 12/21/17 00:10 Laboratory Results - last 24 hr 12/20/17 12/21/17 12/21/17 22:54 00:10 00:10 WBC 10.3 H RBC 3.81 Hgb 10.9 Hct 31.7 L D MCV 83.3 MCH 28.7 MCHC 34.5 RDW 16.9 H Plt Count 453 H D MPV 7.8 Absolute Neuts (auto) 7.9 Neutrophils % 76.3 Lymphocytes % 14.4 D Monocytes % 6.4 Eosinophils % 1.9 Basophils % 1.0 Nucleated RBC % 0 PT with INR INR Sodium 130 L Potassium 2.3 L* Chloride 94 L Carbon Dioxide 21 Anion Gap 15 BUN 57 H Creatinine 4.9 H Creat Clearance w eGFR 9.04 Random Glucose 95 Lactic Acid Calcium 9.0 Magnesium 2.0 Total Bilirubin 0.5 AST 13 L ALT 17 Alkaline Phosphatase 255 H D Troponin I Total Protein 7.8 Albumin 3.7 Lipase Urine Color Ltyellow Urine Appearance Clear Urine pH 6.0 Ur Specific [place] 1.011 Urine Protein 3+ H Urine Glucose (UA) 2+ H Urine Ketones Negative Urine Blood 1+ H Urine Nitrite Negative Urine Bilirubin Negative Urine Urobilinogen Negative Ur Leukocyte Esterase Negative Urine WBC (Auto) 7 Urine RBC (Auto) 3 Ur Epithelial Cells Rare Urine Mucus Rare Blood Type Antibody Screen 12/21/17 12/21/17 12/21/17 00:10 00:10 00:10 WBC RBC Hgb Hct MCV MCH MCHC RDW Plt Count MPV Absolute Neuts (auto) Neutrophils % Lymphocytes % Monocytes % Eosinophils % Basophils % Nucleated RBC % PT with INR 13.40 H INR 1.19 H Sodium Potassium Chloride Carbon Dioxide Anion Gap BUN Creatinine Creat Clearance w eGFR Random Glucose Lactic Acid 1.0 Calcium Magnesium Total Bilirubin AST ALT Alkaline Phosphatase Troponin I Total Protein Albumin Lipase 400 H Urine Color Urine Appearance Urine pH Ur Specific [place] Urine Protein Urine Glucose (UA) Urine Ketones Urine Blood Urine Nitrite Urine Bilirubin Urine Urobilinogen Ur Leukocyte Esterase Urine WBC (Auto) Urine RBC (Auto) Ur Epithelial Cells Urine Mucus Blood Type Antibody Screen 12/21/17 12/21/17 00:10 00:10 WBC RBC Hgb Hct MCV MCH MCHC RDW Plt Count MPV Absolute Neuts (auto) Neutrophils % Lymphocytes % Monocytes % Eosinophils % Basophils % Nucleated RBC % PT with INR INR Sodium Potassium Chloride Carbon Dioxide Anion Gap BUN Creatinine Creat Clearance w eGFR Random Glucose Lactic Acid Calcium Magnesium Total Bilirubin AST ALT Alkaline Phosphatase Troponin I 0.03 Total Protein Albumin Lipase Urine Color Urine Appearance Urine pH Ur Specific [place] Urine Protein Urine Glucose (UA) Urine Ketones Urine Blood Urine Nitrite Urine Bilirubin Urine Urobilinogen Ur Leukocyte Esterase Urine WBC (Auto) Urine RBC (Auto) Ur Epithelial Cells Urine Mucus Blood Type A POSITIVE Antibody Screen Negative Imaging - Results Chest X-ray: Image Reviewed Cat Scan: Report Reviewed, Image Reviewed Problem List - Problems (1) Abdominal pain Code(s): R10.9 - UNSPECIFIED ABDOMINAL PAIN Qualifiers: Abdominal location: periumbilical Qualified Code(s): R10.33 - Periumbilical pain (2) Pneumonia Code(s): J18.9 - PNEUMONIA, UNSPECIFIED ORGANISM Qualifiers: Pneumonia type: due to unspecified organism Laterality: right Lung location: unspecified part of lung Qualified Code(s): J18.9 - Pneumonia, unspecified organism (3) Hypokalemia Code(s): E87.6 - HYPOKALEMIA (4) Alkaline phosphatase elevation Code(s): R74.8 - ABNORMAL LEVELS OF OTHER SERUM ENZYMES (5) Elevated lipase Code(s): R74.8 - ABNORMAL LEVELS OF OTHER SERUM ENZYMES (6) QT prolongation Code(s): R94.31 - ABNORMAL ELECTROCARDIOGRAM [ECG] [EKG] (7) Thrombocytosis Code(s): D47.3 - ESSENTIAL (HEMORRHAGIC) THROMBOCYTHEMIA (8) Acute on chronic renal failure Code(s): N17.9 - ACUTE KIDNEY FAILURE, UNSPECIFIED; N18.9 - CHRONIC KIDNEY DISEASE, UNSPECIFIED (9) Anemia Code(s): D64.9 - ANEMIA, UNSPECIFIED Qualifiers: Anemia type: unspecified cause (10) Anxiety and depression Code(s): F41.8 - OTHER SPECIFIED ANXIETY DISORDERS (11) Asthma Code(s): J45.909 - UNSPECIFIED ASTHMA, UNCOMPLICATED Qualifiers: Asthma severity: mild intermittent Asthma complication type: uncomplicated (12) Back pain Code(s): M54.9 - DORSALGIA, UNSPECIFIED Qualifiers: Back pain location: low back pain Chronicity: chronic Back pain laterality: bilateral Sciatica presence: without sciatica Qualified Code(s) : M54.5 - Low back pain; G89.29 - Other chronic pain (13) CHF (congestive heart failure) Code(s): I50.9 - HEART FAILURE, UNSPECIFIED (14) Hypertension Code(s): I10 - ESSENTIAL (PRIMARY) HYPERTENSION Qualifiers: Hypertension type: essential hypertension Qualified Code(s): I10 - Essential (primary) hypertension Assessment/Plan This is a 62 y/o woman Admitted to Telemetry for Severe Hypokalemia, Hyponatremia, Prolonged QT, Abdominal Pain, Chronic Back Pain, Nausea and Vomiting for elevation of their emergent condition. Problems: 1. Hypokalemia 2. Hyponatremia 3. Prolonged QT 4. Abdominal Pain 5. Chronic Back Pain on opioids 6. HCAP 7. CKD 8. Anxiety 9. Anemia 10. Thrombocytosis 11. Elevated Lipase Plan: 1. Cardiology: Electrolyte Abnormalities, Prolonged QT - Likely due to CKD vs medications - Admit to Tele - Cardiac monitoring for arrhythmias - Serial Enzymes - KCL 40meq po given in ED - Will order K -rider x1 - BMP this am - EKG- NSR with septal infarct age undetermined, +prolonged QT - Consider Cardiology consult if condition worsens - Avoid meds that cause QT prolongation 2. GI: Abdominal Pain, Elevated Lipase, Nausea and Vomiting - Likely secondary to gallstones - CTAP- reviewed - Appreciate GI consult - RUQ ultrasound in am - NPO - Gentle IVF - Monitor CMP - Monitor vitals 3. ID: HCAP - recent admission < 30 days ago - See CTAP - + Leukocytosis, T max 100.3, LA-wnl - Blood cultures-pending - Urine Legionella-pending - Vancomycin and Zosyn given in ED, will continue - Appreciate ID consult - Monitor CBC, vitals - Duoneb prn 4. Nephro: CKD - Cr 4.9, at baseline - Consider Nephrology consult - Monitor BMP - Avoid nephrotoxic agents 5. Heme: Anemia, Thrombocytosis - stable - Hgb 10.9 - Will transfuse Hgb if < 7.0 - Plts 453, likely due to anemia vs infection vs malignancy - f/u with Hematology outpatient - Monitor CBC 6. Musculoskeletal: Chronic Back Pain - stable - MRI done 12/11 showed chronic compression fx L1 - f/u with Ortho outpatient setting when d/c - Tylenol IV prn - Will resume Oxycodone, when able to tolerate PO 7. FEN - D51/2NS@42ml/hr - Replete Na, K, monitor lytes - NPO 8. DVT ppx - OOB - SCDs - Heparin SQ Code Status: Full Code Dispo: Requires Inpatient Care Visit type - Emergency Visit Emergency Visit: Yes ED Registration Date: 12/21/17 Care time: The patient presented to the Emergency Department on the above date and was hospitalized for further evaluation of their emergent condition. - New Patient This patient is new to me today: Yes Date on this admission: 12/21/17 - Critical Care Critical Care patient: No Hospitalist Screening - Colonoscopy Questionnaire Colonoscopy Questionnaire: Colonoscopy Questionnaire - Patient: 50 - 75 years old and never had a screening colonoscopy: No History of colon or rectal polyps, or CA: No History of IBD, Crohn's disease or UC: No History of abdominal radiation therapy as a child: No - Relative: 1 with colon or rectal CA, or polyps at age 60 or younger: No Colon or rectal CA diagnosed at age 45 or younger: No Multiple relatives with colon or rectal CA: No - Outcome: Screening Result: Negative Screen
[2017-12-21] MEDS ORDERED: DEXTROSE 5%-0.45% SALINE 1,000 ML IV SCH (05:30)
[2017-12-21] MEDS ORDERED: ACETAMINOPHEN 1000 MG/100 ML VIAL (NON FORMULARY) IVPB ONE (06:00)
[2017-12-21 08:19] LABS: BASO % 0.7 % (0-2.0); EOS % 3.9 % (0-4.5); HEMATOCRIT 29.1 % (32.4-45.2); HEMOGLOBIN 9.9 GM/dL (10.7-15.3); LYMPH % 18.9 % (8-40); MCH 28.6 pg (25.7-33.7); MCHC 34.1 g/dl (32.0-36.0); MEAN CELL VOLUME 83.7 fl (80-96); MEAN PLT VOLUME 7.5 fl (7.5-11.1); MONO % 8.6 % (3.8-10.2); NEUT % 67.9 % (42.8-82.8); PLATELET COUNT 373 K/MM3 (134-434); RBC 3.47 M/mm3 (3.60-5.2); RDW 17.2 % (11.6-15.6); WHITE BLOOD COUNT 9.2 K/mm3 (4.0-10.0)
[2017-12-21] MEDS ORDERED: ALBUTEROL SO4 2.5/IPRATROPIUM 0.5 INH SOL 3 ML VIAL.NEB. NEB PRN (08:19)
[2017-12-21 08:45] LABS: ANION GAP 16 MMOL/L (8-16); BLOOD UREA NITROGEN 51 mg/dL (7-18); CALCIUM 8.6 mg/dL (8.5-10.1); CHLORIDE 101 mmol/L (98-107); CO2 16 mmol/L (21-32); GLUCOSE,RANDOM 90 mg/dL (74-106); POTASSIUM 3.1 mmol/L (3.5-5.1); SODIUM 133 mmol/L (136-145)
[2017-12-21] MEDS ORDERED: GABAPENTIN 100 MG CAPSULE (FP) PO SCH (08:45)
[2017-12-21] MEDS ORDERED: ALPRAZolam 0.25 MG TABLET PO PRN (08:50)
[2017-12-21] MEDS ORDERED: traMADol HCL 50 MG TABLET PO PRN (08:51)
[2017-12-21] MEDS ORDERED: ACETAMINOPHEN 325 MG TABLET (FP) PO PRN (08:52)
[2017-12-21] MEDS ORDERED: D5-NS + 20 MEQ KCL - 20 MEQ/1,000 ML INFUS.BAG IV SCH ×2 (09:45→17:43)
--- NOTE | 2017-12-21 09:45 | PN ---
Progress Note, Physician Chief Complaint: hyponatremia hypokalemia abdominal pain Nausea/Vomiting LUCIEN - Current Medication List Current Medications: Active Medications Acetaminophen (Tylenol -) 650 mg PO Q6H PRN PRN Reason: PAIN OR FEVER Albuterol/Ipratropium (Duoneb -) 1 amp NEB RQID PRN PRN Reason: SHORT OF BREATH/WHEEZING Alprazolam (Xanax -) 0.5 mg PO Q8H PRN PRN Reason: ANXIETY Duloxetine HCl (Cymbalta -) 30 mg PO DAILY JACKY Gabapentin (Neurontin -) 300 mg PO TID JACKY Heparin Sodium (Porcine) (Heparin -) 5,000 unit SQ BID JACKY Dextrose/Sodium Chloride (Dextrose 5%-Normal Saline+20 Meq Kcl -) 20 meq in 1, 000 mls @ 75 mls/hr IV ASDIR JACKY Magnesium Oxide (Mag-Ox -) 400 mg PO BID JACKY Melatonin (Melatonin) 10 mg PO HS JACKY Oxycodone HCl (Roxicodone -) 5 mg PO Q6H PRN PRN Reason: PAIN LEVEL 7 - 10 Potassium Chloride (Potassium Chloride Oral Liquid) 40 meq PO ONCE ONE Stop: 12/21/17 09:39 Tramadol HCl (Ultram -) 50 mg PO Q8H PRN PRN Reason: PAIN LEVEL 4 - 6 - Objective Vital Signs: Vital Signs Temperature 99.9 F H 12/21/17 05:13 Pulse Rate 73 12/21/17 05:13 Respiratory Rate 20 12/21/17 05:13 Blood Pressure 136/74 12/21/17 05:13 O2 Sat by Pulse Oximetry (%) 98 12/21/17 05:13 Constitutional: Yes: Well Nourished, No Distress, Calm Cardiovascular: Yes: Regular Rate and Rhythm Respiratory: Yes: Regular Gastrointestinal: Yes: Normal Bowel Sounds, Soft Musculoskeletal: Yes: Back Pain Neurological: Yes: Alert, Oriented Psychiatric: Yes: Alert, Oriented Labs: CBC, BMP 12/21/17 07:40 12/21/17 07:40 INR, PTT INR 1.19 (0.83-1.09) H 12/21/17 00:10 Problem List - Problems (1) Hyponatremia Assessment/Plan: -improved -nephrology consult Code(s): E87.1 - HYPO-OSMOLALITY AND HYPONATREMIA (2) Abdominal pain Assessment/Plan: -improved -CT abd reviewed -GI consult Code(s): R10.9 - UNSPECIFIED ABDOMINAL PAIN (3) Alkaline phosphatase elevation Code(s): R74.8 - ABNORMAL LEVELS OF OTHER SERUM ENZYMES (4) CKD (chronic kidney disease) Assessment/Plan: -improvinf -IVF -Nephrology consult -monitor trend Code(s): N18.9 - CHRONIC KIDNEY DISEASE, UNSPECIFIED (5) Elevated lipase Code(s): R74.8 - ABNORMAL LEVELS OF OTHER SERUM ENZYMES (6) Hypokalemia Assessment/Plan: -improved -switch to D5NS+KCl 20 meq @ 75 cc/hr -KCl40 meq PO once -nephrology consult -monitor trend Code(s): E87.6 - HYPOKALEMIA Assessment/Plan see problem list
[2017-12-21] MEDS: DULoxetine HCL 30 MG CAPSULE.DR (FP) PO SCH (09:54)
[2017-12-21] MEDS: MAGNESIUM OXIDE 400 MG TABLET (FP) PO SCH ×2 (09:54→22:22)
[2017-12-21] MEDS: HEPARIN NA (PORCINE) 5,000 UNITS/ML 1ML VIAL SQ SCH ×2 (09:54→22:22)
[2017-12-21] MEDS: POTASSIUM CHLORIDE ORAL LIQUID 20 MEQ/15 ML PO ONE ×2 (09:56→11:40)
[2017-12-21 09:59] LABS: BILIRUBIN,DIRECT 0.2 mg/dL (0.0-0.2)
[2017-12-21] MEDS ORDERED: PANTOPRAZOLE SODIUM 40 MG in SODIUM CHLORIDE 100 ML IVPB SCH (10:00)
[2017-12-21 10:02] LABS: LIPASE 363 U/L (73-393)
--- NOTE | 2017-12-21 10:20 | CON.GI ---
Consult Consult Specialty:: GI Referred by:: Inocente Flores Reason for Consultation:: Vomiting, abdominal pain - History of Present Illness Chief Complaint: Vomiting, abdominal pain History of Present Illness: 62 y.o. woman admitted with complaint of vomiting and abdominal pain. Patient cannot give any coherent history. She even is unable to tell me what year it is , much less can she tell me what tests and procedures have been done in the past. When asked if she has ever had an endoscopy she answers "Yes", but cannot tell whether it was within the past year or twenty years ago -- simply says "I don't know." Similarly answers "I don't know" to most other questions I asked her. She says "I'm starving" and I observed her eating her clear liquid diet with gusto and without any vomiting. 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 Cardio/Vascular: Yes: HTN, Hyperlipdemia Pulmonary: Yes: COPD Gastrointestinal: Yes: Gastritis Renal/: Yes: Renal Inusuff ...LMP: 07/25/12 Psych: Yes: Anxiety, Depression Musculoskeletal: Yes: Chronic low back pain - Past Surgical History Past Surgical History: Yes: Joint Replacement (hip replacement) - Alcohol/Substance Use Hx Alcohol Use: No History of Substance Use: reports: Marijuana - Smoking History Smoking history: Current some day smoker Have you smoked in the past 12 months: Yes Aproximately how many cigarettes per day: 4 If you are a former smoker, when did you quit?: refused booklet 07/21/14 - Social History Usual Living Arrangement: With Child ADL: Independent Occupation: not working, SSI History of Recent Travel: No Home Medications - Allergies Allergies/Adverse Reactions: Allergies Allergy/AdvReac Type Severity Reaction Status Date / Time levofloxacin [From Levaquin] Allergy Mild Itching Verified 12/20/17 22:14 - Home Medications Home Medications: Ambulatory Orders Methocarbamol [Robaxin -] 500 mg PO TID PRN 11/02/17 Gabapentin [Neurontin] 300 mg PO TID #42 capsule 11/13/17 Acetaminophen 325 mg PO Q6H 11/19/17 Albuterol 2.5/Ipratropium 0.5 [Duoneb -] 1 neb IH QID 11/19/17 Alprazolam [Xanax] 0.5 mg PO TID PRN 11/19/17 Heparin - 5,000 unit SQ TID 11/19/17 Melatonin 10 mg PO HS 11/19/17 Oxycodone HCl 5 mg PO QID PRN 11/19/17 Pantoprazole Sodium 40 mg PO DAILY 11/19/17 Aspirin Coated [Ecotrin -] 325 mg PO DAILY 11/25/17 Docusate Sodium [Colace -] 300 mg PO HS #30 capsule 12/12/17 Duloxetine HCl [Cymbalta -] 30 mg PO DAILY #30 capsule. 12/12/17 Magnesium Oxide [Mag-Ox -] 400 mg PO BID #6 tablet 12/12/17 Azithromycin Ophth Soln [Azasite 1% Ophth Soln -] 2 drop OP TID 5 Days #1 bottle 12/13/17 Erythromycin 0.5% Eye Ointment [Erythromycin 0.5% Eye Ointment -] 1 applic TP BID 5 Days #1 tube 12/13/17 Family Disease History - Family Disease History Family Disease History: Other: Father (alive), Mother (alive), Sister (alive), Son (23 yo old - alive - healthy) Physical Exam-GI Vital Signs: Vital Signs Temperature 99.9 F H 12/21/17 05:13 Pulse Rate 73 12/21/17 05:13 Respiratory Rate 20 12/21/17 05:13 Blood Pressure 136/74 12/21/17 05:13 O2 Sat by Pulse Oximetry (%) 98 12/21/17 05:13 Labs: CBC, BMP 12/21/17 07:40 12/21/17 07:40 INR, PTT INR 1.19 (0.83-1.09) H 12/21/17 00:10 Imaging - Results Cat Scan: Report Reviewed, Image Reviewed Ultrasound: Report Reviewed, Image Reviewed Problem List - Problems (1) Abdominal pain Code(s): R10.9 - UNSPECIFIED ABDOMINAL PAIN Assessment/Plan Abdominal pain appears to have resolved. The distended gallbladder seen on sono and CT could be a simple consequence of use of narcotics as well as not eating. She is not jaundiced. Her alkaline phosphatase has been intermittently elevated in the past and may be a reflection of hydration and cardiac and renal disease. The lipase of 400 is insignificant in the context of her creatinine. No GI workup needed at present. She can be evaluated as an outpatient but her dementia is such that I question whether she can give consent to procedures.
[2017-12-21] MEDS: PANTOPRAZOLE SODIUM 40 MG VIAL IVPUSH SCH (11:39)
[2017-12-21 12:15] VITALS: BMI 22.8
--- NOTE | 2017-12-21 13:25 | PN ---
Progress Note (short form) - Note Progress Note: ID Consult dictated No clinical or radiographic evidence for pneumonia Observe off antibiotics
--- NOTE | 2017-12-21 13:45 | CONSULT ---
Consult Consult Specialty:: Nephrology Reason for Consultation:: CKD with LUCIEN - History of Present Illness Chief Complaint: abdominal pain and nausea History of Present Illness: Pt is a 62 year old female with pmhx of PNA, UTI, gastritis, CKD, HTN, asthma, HLD and chronic back pain who presents to the ER complaining of nausea and abdominal pain. She has also had several episodes of vomiting. She was found to have worsening of her renal function and I was called to evaluate her. She denies shortness of breath. She denies dysuria. She is opioid dependent. She is poorly compliant with outpt follow up. 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: Yes: Peripheral Neuropathy Cardio/Vascular: Yes: HTN, Hyperlipdemia Pulmonary: Yes: COPD Gastrointestinal: Yes: Gastritis Renal/: Yes: Renal Inusuff ...LMP: 07/25/12 Psych: Yes: Anxiety, Depression Musculoskeletal: Yes: Chronic low back pain - Past Surgical History Past Surgical History: Yes: Joint Replacement (hip replacement) - Alcohol/Substance Use Hx Alcohol Use: No History of Substance Use: reports: Marijuana - Smoking History Smoking history: Current some day smoker Have you smoked in the past 12 months: Yes Aproximately how many cigarettes per day: 4 If you are a former smoker, when did you quit?: refused booklet 07/21/14 - Social History Usual Living Arrangement: With Child ADL: Independent Occupation: not working, SSI History of Recent Travel: No Home Medications - Allergies Allergies/Adverse Reactions: Allergies Allergy/AdvReac Type Severity Reaction Status Date / Time levofloxacin [From Levaquin] Allergy Mild Itching Verified 12/20/17 22:14 - Home Medications Home Medications: Ambulatory Orders Methocarbamol [Robaxin -] 500 mg PO TID PRN 11/02/17 Gabapentin [Neurontin] 300 mg PO TID #42 capsule 11/13/17 Acetaminophen 325 mg PO Q6H 11/19/17 Albuterol 2.5/Ipratropium 0.5 [Duoneb -] 1 neb IH QID 11/19/17 Alprazolam [Xanax] 0.5 mg PO TID PRN 11/19/17 Heparin - 5,000 unit SQ TID 11/19/17 Melatonin 10 mg PO HS 11/19/17 Oxycodone HCl 5 mg PO QID PRN 11/19/17 Pantoprazole Sodium 40 mg PO DAILY 11/19/17 Aspirin Coated [Ecotrin -] 325 mg PO DAILY 11/25/17 Docusate Sodium [Colace -] 300 mg PO HS #30 capsule 12/12/17 Duloxetine HCl [Cymbalta -] 30 mg PO DAILY #30 capsule. 12/12/17 Magnesium Oxide [Mag-Ox -] 400 mg PO BID #6 tablet 12/12/17 Azithromycin Ophth Soln [Azasite 1% Ophth Soln -] 2 drop OP TID 5 Days #1 bottle 12/13/17 Erythromycin 0.5% Eye Ointment [Erythromycin 0.5% Eye Ointment -] 1 applic TP BID 5 Days #1 tube 12/13/17 Family Disease History - Family Disease History Family Disease History: Other: Father (alive), Mother (alive), Sister (alive), Son (23 yo old - alive - healthy) Review of Systems - Review of Systems Constitutional: reports: Malaise. denies: Chills, Fever Eyes: reports: No Symptoms HENT: reports: No Symptoms Neck: reports: No Symptoms Cardiovascular: reports: No Symptoms Respiratory: reports: No Symptoms Gastrointestinal: reports: Abdominal Pain, Vomiting Genitourinary: reports: No Symptoms Musculoskeletal: reports: Back Pain Neurological: reports: No Symptoms Endocrine: reports: No Symptoms Hematology/Lymphatic: reports: No Symptoms Psychiatric: reports: No Symptoms Physical Exam Vital Signs: Vital Signs Temperature 98.6 F 12/21/17 09:14 Pulse Rate 76 12/21/17 09:14 Respiratory Rate 20 12/21/17 09:14 Blood Pressure 130/70 12/21/17 09:14 O2 Sat by Pulse Oximetry (%) 98 12/21/17 09:14 Constitutional: Yes: Calm Eyes: Yes: Conjunctiva Clear HENT: Yes: Atraumatic Neck: Yes: Supple Cardiovascular: Yes: S1, S2 Respiratory: Yes: CTA Bilaterally Gastrointestinal: Yes: Soft Renal/: Yes: WNL Musculoskeletal: Yes: Back Pain Edema: No Neurological: Yes: Oriented Psychiatric: Yes: Oriented Labs: CBC, BMP 12/21/17 07:40 12/21/17 07:40 Laboratory Tests 12/09/17 12/21/17 12/21/17 20:30 00:10 07:40 BUN 57 H 51 H Creatinine 4.9 H 4.0 H Urine Protein 3+ H Urine Blood 1+ H Imaging - Results Chest X-ray: Report Reviewed Cat Scan: Report Reviewed Problem List - Problems (1) CKD (chronic kidney disease) Code(s): N18.9 - CHRONIC KIDNEY DISEASE, UNSPECIFIED (2) Elevated lipase Code(s): R74.8 - ABNORMAL LEVELS OF OTHER SERUM ENZYMES (3) Hypokalemia Code(s): E87.6 - HYPOKALEMIA Assessment/Plan Current Medications Generic Name Dose Route Start Last Admin Trade Name Freq PRN Reason Stop Dose Admin Acetaminophen 650 mg 12/21/17 08:52 Tylenol - PO Q6H PRN PAIN OR FEVER Albuterol/Ipratropium 1 amp 12/21/17 08:19 Duoneb - NEB RQID PRN SHORT OF BREATH/WHEEZING Alprazolam 0.5 mg 12/21/17 08:50 12/21/17 09:53 Xanax - PO 0.5 mg Q8H PRN Administration ANXIETY Duloxetine HCl 30 mg 12/21/17 10:00 12/21/17 09:54 Cymbalta - PO 30 mg DAILY JACKY Administration Gabapentin 300 mg 12/21/17 08:52 Neurontin - PO TID JACKY Heparin Sodium (Porcine) 5,000 unit 12/21/17 10:00 12/21/17 09:54 Heparin - SQ 5,000 unit BID JACKY Administration Dextrose/Sodium Chloride 20 meq in 1,000 mls @ 75 mls/hr 12/21/17 09:45 12/21 10:05 Dextrose 5%-Normal Saline+20 Meq Kcl - IV 75 mls/hr ASDIR JACKY Administration Magnesium Oxide 400 mg 12/21/17 10:00 12/21/17 09:54 Mag-Ox - PO 400 mg BID JACKY Administration Melatonin 10 mg 12/21/17 22:00 Melatonin PO HS JACKY Oxycodone HCl 5 mg 12/21/17 08:50 Roxicodone - PO Q6H PRN PAIN LEVEL 7 - 10 Pantoprazole Sodium 40 mg 12/21/17 10:00 12/21/17 11:39 Protonix Iv IVPUSH 40 mg DAILY JACKY Administration Tramadol HCl 50 mg 12/21/17 08:51 Ultram - PO Q8H PRN PAIN LEVEL 4 - 6 Impression 1. CKD with acute component 2. COPD 3. chronic back pain on opioids 4. anemia 5. anxiety 6. PNA 7. chf diastolic 8. hyponatremia 9. vomiting 10. possible complex renal cyst Plan - renal function is improving - replace potassium - cont fluids, decrease rate - repeat labs in am - no indication for acute HD - PO sodium bicarb - GI input appreciated - discussed preparation for HD, should get fistula placed soon
--- NOTE | 2017-12-21 13:49 | CONS ---
INFECTIOUS DISEASE CONSULTATION DATE OF CONSULTATION: 12/21/2017 This is a 62-year-old female evaluated for suspected pneumonia. She was readmitted to the hospital December 20, 2017, with complaints of left lower quadrant abdominal pain associated with nausea and vomiting. She also complained of cough productive of whitish sputum and chills. In the emergency room, she had a low-grade fever. She was hospitalized at [facility] from November 02 through November 13 and treated for pneumonia. At the present time, she has no complaints of chest pain or shortness of breath, has an occasional cough productive of whitish sputum. PAST MEDICAL HISTORY: Positive for hypertension, hyperlipidemia, chronic kidney disease, chronic low back pain, asthma, peptic ulcer disease, nephrolithiasis. PAST SURGICAL HISTORY: Status post bilateral total hip replacements. ALLERGIES: LEVAQUIN. MEDICATIONS: Robaxin, amlodipine, Lipitor, Periactin, hydrochlorothiazide, omeprazole, Paxil, Seroquel, Neurontin. SOCIAL HISTORY: Positive for tobacco use. LABORATORY DATA: White count 9.2, hematocrit 29.1, platelet count 373. BUN 51, creatinine 4.0. Blood and urine cultures are pending. Chest x-ray negative for acute infiltrate. CAT scan of the abdomen and pelvis shows no definite interval change compared to a CAT scan from December 09. There is mild bibasilar lung scarring associated with mild bronchiectasis as seen on previous CAT scans. Interval resolution of a right lower lobe infiltrate. PHYSICAL EXAMINATION: General: She is awake. She is in no acute distress. Breathing is non-labored. Vital Signs: Temperature 98.6, T-max 100.3; blood pressure 130/70; pulse 76, regular; respirations 20 per minute. Eyes: Sclerae are anicteric. Heart: Sounds S1, S2. Lungs: Crepitations at the bases bilaterally. Abdomen: Soft. No tenderness elicited. No mass, rebound, or rigidity. Extremities: Negative for edema. Negative Homans sign. IMPRESSION: No clinical or radiographic evidence for pneumonia. Would observe off antibiotic therapy. Thank you for the kind referral. JAKY JOHNSON M.D. [id number]
[2017-12-21] MEDS: GABAPENTIN 300 MG CAPSULE (FP) PO SCH ×2 (14:00→22:23)
--- NOTE | 2017-12-21 17:49 | PN ---
Progress Note (short form) - Note Progress Note: Pt states she is hungry and wants more food. Will advance diet. Will no longer follow unless recalled. Problem List - Problems (1) Abdominal pain Code(s): R10.9 - UNSPECIFIED ABDOMINAL PAIN
[2017-12-21] MEDS: oxyCODONE HCL 5 MG TABLET PO PRN (20:09)
--- NOTE | 2017-12-21 21:33 | CONSULT ---
Consult Consult Specialty:: General Surgery Referred by:: Lolita Flores Reason for Consultation:: distended gallbladder, abd pain - History of Present Illness Chief Complaint: lower abdominal pain, n/v (now resolved) History of Present Illness: 62yo F with multiple medical problems including HTN, COPD, CKD4, polysubstance abuse, anemia, hyperthyroidism, chronic back pain w/herniated disc(s), nephrolithiasis, PUD/GERD, and MAC pneumonia (2014), s/p tonsillectomy, EGD/ colonoscopies, L1 kyphoplasty, cystoscopy (vs bladder lift? 2013), no intraabdominal surgeries, and multiple previous admissions for chronic pain issues, COPD, and other conditions, admitted from ER with periumbilical and lower abdominal pain associated with N/V and subjective fever and chills for 1- 2 days. Initial wbc was 10.3, hydrated down to 9.2, and she was hypokalemic with acute on chronic CKD and hyponatremia that corrected with hydration. CT and US were done showing distended gallbladder with no stones, no s/s cholecystitis, no acute bowel or intraabdominal findings, and GI has also seen the patient. Her pain has resolved, and she has tolerated diet today with no further N/V. She still feels somewhat chilled, but has had no fevers. Surgery was asked to assess - she is seen and examined in bed, resting comfortably. Most of the history is obtained from her chart and [employer] review back to 2011 , as she is a poor historian, but she is pleasant and cooperative. She notes loose stools today, since oral contrast from CT scan. Antibiotics were given in ER, but not since. 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 No: O2 Dependent Gastrointestinal: Yes: Gastritis, GI Bleed (bleeding ulcer), Peptic Ulcer Disease Renal/: Yes: Renal Inusuff, Renal Calculi Reproductive: Yes: Postmenopausal, Other (?ovarian CA - pt denies) ...LMP: 07/25/12 Heme/Onc: Yes: Anemia Infectious Disease: Yes: MRSA Psych: Yes: Addictions, Anxiety, Depression Musculoskeletal: Yes: Chronic low back pain, Osteoarthritis Endocrine: Yes: Hyperthyroidism - Past Surgical History Past Surgical History: Yes: Colonoscopy, Joint Replacement (bilateral hip replacement), Tonsillectomy, Upper Endoscopy Additional Surgical History: L1 kyphoplasty; ?bladder lift vs cystoscopy 2013 ( Dr Kwasi Boykin) - she does not remember what he did - records are conflicting, may have been done at [facility] - Alcohol/Substance Use Hx Alcohol Use: Yes (occ/social) History of Substance Use: reports: Cocaine (last use 1 yr ago (snorted)), Marijuana (few times a month), Prescription (denies current use of opiates at home but historically has taken more than prescribed at times) - Smoking History Smoking history: Current every day smoker Have you smoked in the past 12 months: Yes Aproximately how many cigarettes per day: 10 (longtime heavy smoking hx) If you are a former smoker, when did you quit?: cut down few months ago from 1ppd, more before that - Social History Usual Living Arrangement: With Child (youngest son) ADL: Independent Occupation: not working, SSI History of Recent Travel: No Home Medications - Allergies Allergies/Adverse Reactions: Allergies Allergy/AdvReac Type Severity Reaction Status Date / Time levofloxacin [From Levaquin] Allergy Mild Itching Verified 12/20/17 22:14 - Home Medications Home Medications: Ambulatory Orders Methocarbamol [Robaxin -] 500 mg PO TID PRN 11/02/17 Gabapentin [Neurontin] 300 mg PO TID #42 capsule 11/13/17 Acetaminophen 325 mg PO Q6H 11/19/17 Albuterol 2.5/Ipratropium 0.5 [Duoneb -] 1 neb IH QID 11/19/17 Alprazolam [Xanax] 0.5 mg PO TID PRN 11/19/17 Heparin - 5,000 unit SQ TID 11/19/17 Melatonin 10 mg PO HS 11/19/17 Oxycodone HCl 5 mg PO QID PRN 11/19/17 Pantoprazole Sodium 40 mg PO DAILY 11/19/17 Aspirin Coated [Ecotrin -] 325 mg PO DAILY 11/25/17 Docusate Sodium [Colace -] 300 mg PO HS #30 capsule 12/12/17 Duloxetine HCl [Cymbalta -] 30 mg PO DAILY #30 capsule. 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 denies: SOB Gastrointestinal: reports: Abdominal Pain (with hpi), Nausea (with hpi), Vomiting (with hpi). denies: Constipation, Diarrhea Genitourinary: denies: Burning, Dysuria, Hematuria Musculoskeletal: reports: Back Pain (chronic), Joint Pain (knees) Integumentary: denies: Change in Color, Rash Neurological: reports: Unsteady Gait (walks with cane or walker at home). denies: Dizziness, Headache Psychiatric: reports: Anxiety, Depression Physical Exam Vital Signs: Vital Signs Temperature 98.5 F 12/21/17 17:00 Pulse Rate 84 12/21/17 17:00 Respiratory Rate 18 12/21/17 17:00 Blood Pressure 126/68 12/21/17 17:00 O2 Sat by Pulse Oximetry (%) 98 12/21/17 09:14 Constitutional: Yes: Well Nourished, No Distress, Calm Eyes: Yes: Conjunctiva Clear, EOM Intact HENT: Yes: Atraumatic, Normocephalic Neck: Yes: Supple, Trachea Midline Cardiovascular: Yes: Regular Rate and Rhythm Respiratory: Yes: Regular, Wheezes (mild expiratory bilat R>L) Gastrointestinal: Yes: Normal Bowel Sounds, Soft, Hernia (small umbilical palpable). No: Distention, Tenderness, Tenderness, Epigastrium ...Rectal Exam: Yes: Deferred Renal/: No: CVA Tenderness - Left, CVA Tenderness - Right Musculoskeletal: No: Joint Stiffness, Joint Swelling Extremities: No: Cool, Cyanosis Edema: No Peripheral Pulses WNL: Yes Integumentary: Yes: Body Piercing (old, dormant supraumbilical). No: Jaundice, Rash Neurological: Yes: Alert, Oriented (generally appropriate but poor historian) Psychiatric: Yes: Alert. No: Agitated Labs: CBC, BMP 12/21/17 07:40 12/21/17 07:40 CMP Sodium 133 mmol/L (136-145) L 12/21/17 07:40 Potassium 3.1 mmol/L (3.5-5.1) L 12/21/17 07:40 Chloride 101 mmol/L (98-107) 12/21/17 07:40 Carbon Dioxide 16 mmol/L (21-32) L 12/21/17 07:40 Anion Gap 16 MMOL/L (8-16) 12/21/17 07:40 BUN 51 mg/dL (7-18) H 12/21/17 07:40 Creatinine 4.0 mg/dL (0.55-1.02) H 12/21/17 07:40 Creat Clearance w eGFR 11.42 (>60) 12/21/17 07:40 Random Glucose 90 mg/dL (74-106) 12/21/17 07:40 Lactic Acid 1.0 mmol/L (0.0-2.0) 12/21/17 00:10 Calcium 8.6 mg/dL (8.5-10.1) 12/21/17 07:40 Magnesium 2.0 mg/dL (1.8-2.4) 12/21/17 00:10 Total Bilirubin 0.5 mg/dL (0.2-1.0) 12/21/17 00:10 Direct Bilirubin 0.2 mg/dL (0.0-0.2) 12/21/17 07:40 AST 13 U/L (15-37) L 12/21/17 00:10 ALT 17 U/L (12-78) 12/21/17 00:10 Alkaline Phosphatase 255 U/L (45-117) H D 12/21/17 00:10 Troponin I 0.04 ng/ml (0.00-0.05) 12/21/17 12:03 Total Protein 7.8 g/dl (6.4-8.2) 12/21/17 00:10 Albumin 3.7 g/dl (3.4-5.0) 12/21/17 00:10 Lipase 363 U/L (73-393) 12/21/17 07:40 INR, PTT INR 1.19 (0.83-1.09) H 12/21/17 00:10 Urine Test Results Urine Color Ltyellow 12/20/17 22:54 Urine Appearance Clear 12/20/17 22:54 Urine pH 6.0 (5.0-8.0) 12/20/17 22:54 Ur Specific [place] 1.011 (1.001-1.035) 12/20/17 22:54 Urine Protein 3+ (NEGATIVE) H 12/20/17 22:54 Urine Glucose (UA) 2+ (NEGATIVE) H 12/20/17 22:54 Urine Ketones Negative (NEGATIVE) 12/20/17 22:54 Urine Blood 1+ (NEGATIVE) H 12/20/17 22:54 Urine Nitrite Negative (NEGATIVE) 12/20/17 22:54 Urine Bilirubin Negative (<2.0 mg/dL) 12/20/17 22:54 Ur Leukocyte Esterase Negative (NEGATIVE) 12/20/17 22:54 Ur Epithelial Cells Rare /HPF (FEW) 12/20/17 22:54 Urine Mucus Rare 12/20/17 22:54 Imaging - Results Cat Scan: Report Reviewed (R renal upper pole cyst vs nodule noted), Image Reviewed (images reviewed - distended gallbladder, no signs cholecystitis, no stones visible, no obstruction, no free air or fluid, no diverticulitis or appendicitis) Ultrasound: Report Reviewed (no gallstones noted, cbd normal), Image Reviewed Problem List - Problems (1) Abdominal pain Assessment/Plan: periumbilical and lower abdominal pain, now resolved no gallstones present tolerating diet without nausea or vomiting no acute surgical issues identified, no intervention indicated Thank you for the opportunity to participate in the care of this patient. will sign off - please recall with questions or acute changes if needed Code(s): R10.9 - UNSPECIFIED ABDOMINAL PAIN Qualifiers: Abdominal location: periumbilical Qualified Code(s): R10.33 - Periumbilical pain (2) Hypokalemia Assessment/Plan: improving but still low - replete per nephrology, trend labs Code(s): E87.6 - HYPOKALEMIA (3) CKD (chronic kidney disease) stage 4, GFR 15-29 ml/min Assessment/Plan: nephrology consulted Code(s): N18.4 - CHRONIC KIDNEY DISEASE, STAGE 4 (SEVERE) (4) Hypertension Code(s): I10 - ESSENTIAL (PRIMARY) HYPERTENSION Qualifiers: Hypertension type: essential hypertension Qualified Code(s): I10 - Essential (primary) hypertension (5) Degenerative disc disease at L5-S1 level Code(s): M51.36 - OTHER INTERVERTEBRAL DISC DEGENERATION, LUMBAR REGION (6) Anxiety and depression Code(s): F41.8 - OTHER SPECIFIED ANXIETY DISORDERS (7) H/O opioid abuse Code(s): Z87.898 - PERSONAL HISTORY OF OTHER SPECIFIED CONDITIONS (8) Nicotine dependence Code(s): F17.200 - NICOTINE DEPENDENCE, UNSPECIFIED, UNCOMPLICATED Qualifiers: Nicotine product type: cigarettes Substance use status: uncomplicated Qualified Code(s): F17.210 - Nicotine dependence, cigarettes, uncomplicated (9) Cocaine abuse Assessment/Plan: pt denies using in last year Code(s): F14.10 - COCAINE ABUSE, UNCOMPLICATED (10) Marijuana abuse Code(s): F12.10 - CANNABIS ABUSE, UNCOMPLICATED (11) COPD (chronic obstructive pulmonary disease) Assessment/Plan: with h/o MAC in May 2014, unknown if treated continues to smoke defer to PMD and pulmonology Code(s): J44.9 - CHRONIC OBSTRUCTIVE PULMONARY DISEASE, UNSPECIFIED Qualifiers: COPD type: chronic bronchitis Chronic bronchitis type: unspecified Qualified Code(s): J42 - Unspecified chronic bronchitis (12) H/O Mycobacterium avium complex infection Code(s): Z86.19 - PERSONAL HISTORY OF OTHER INFECTIOUS AND PARASITIC DISEASES (13) Hyperthyroidism Assessment/Plan: history of HYPERthyroidism, not hypo not on meds for at least several years, TSH low normal in November consider rechecking thyroid function tests/panel Code(s): E05.90 - THYROTOXICOSIS, UNSP WITHOUT THYROTOXIC CRISIS OR STORM
[2017-12-21] MEDS: MELATONIN 5 MG TABLETS PO SCH (22:22)
[2017-12-22] MEDS: GABAPENTIN 300 MG CAPSULE (FP) PO SCH ×3 (06:20→21:23)
[2017-12-22 07:36] LABS: EOS % 11.4 % (0-4.5); HEMATOCRIT 25.3 % (32.4-45.2); HEMOGLOBIN 8.5 GM/dL (10.7-15.3); LYMPH % 11.9 % (8-40); MCH 28.3 pg (25.7-33.7); MCHC 33.5 g/dl (32.0-36.0); MEAN CELL VOLUME 84.7 fl (80-96); MEAN PLT VOLUME 7.7 fl (7.5-11.1); MONO % 6.3 % (3.8-10.2); NEUT % 69.4 % (42.8-82.8); PLATELET COUNT 350 K/MM3 (134-434); RBC 2.99 M/mm3 (3.60-5.2); RDW 17.3 % (11.6-15.6); WHITE BLOOD COUNT 7.9 K/mm3 (4.0-10.0)
[2017-12-22 09:03] LABS: ALBUMIN 2.7 g/dl (3.4-5.0); ALK PHOS 184 U/L (45-117); ANION GAP 12 MMOL/L (8-16); BILIRUBIN,TOTAL 0.4 mg/dL (0.2-1.0); BLOOD UREA NITROGEN 54 mg/dL (7-18); CHLORIDE 107 mmol/L (98-107); CO2 20 mmol/L (21-32); CREATININE 4.1 mg/dL (0.55-1.02); GLUCOSE,RANDOM 90 mg/dL (74-106); MAGNESIUM 2.1 mg/dL (1.8-2.4); PHOSPHOROUS 5.8 mg/dL (2.5-4.9); POTASSIUM 3.4 mmol/L (3.5-5.1); SGOT/AST 13 U/L (15-37); SGPT/ALT 10 U/L (12-78); SODIUM 139 mmol/L (136-145); TOT PROT 5.8 g/dl (6.4-8.2)
[2017-12-22] MEDS: DULoxetine HCL 30 MG CAPSULE.DR (FP) PO SCH (11:17)
[2017-12-22] MEDS: MAGNESIUM OXIDE 400 MG TABLET (FP) PO SCH ×2 (11:17→21:23)
[2017-12-22] MEDS: oxyCODONE HCL 5 MG TABLET PO PRN (11:17)
[2017-12-22] MEDS: PANTOPRAZOLE SODIUM 40 MG VIAL IVPUSH SCH (11:23)
[2017-12-22] MEDS: HEPARIN NA (PORCINE) 5,000 UNITS/ML 1ML VIAL SQ SCH ×2 (11:24→21:23)
--- NOTE | 2017-12-22 11:51 | PN ---
Progress Note, Physician Chief Complaint: hyponatremia hypokalemia abdominal pain Nausea/Vomiting LUCIEN History of Present Illness: NAD cleared as per GI no N/V/D or abdominal pain hypokalemia improved seen by nephrology - Current Medication List Current Medications: Active Medications Acetaminophen (Tylenol -) 650 mg PO Q6H PRN PRN Reason: PAIN OR FEVER Albuterol/Ipratropium (Duoneb -) 1 amp NEB RQID PRN PRN Reason: SHORT OF BREATH/WHEEZING Alprazolam (Xanax -) 0.5 mg PO Q8H PRN PRN Reason: ANXIETY Last Admin: 12/21/17 09:53 Dose: 0.5 mg Duloxetine HCl (Cymbalta -) 30 mg PO DAILY [facility] Last Admin: 12/22/17 11:17 Dose: 30 mg Gabapentin (Neurontin -) 300 mg PO TID [facility] Last Admin: 12/22/17 06:20 Dose: 300 mg Heparin Sodium (Porcine) (Heparin -) 5,000 unit SQ BID [facility] Last Admin: 12/22/17 11:24 Dose: 5,000 unit Dextrose/Sodium Chloride (Dextrose 5%-Normal Saline+20 Meq Kcl -) 20 meq in 1, 000 mls @ 50 mls/hr IV ASDIR [facility] Last Admin: 12/21/17 20:09 Dose: 50 mls/hr Magnesium Oxide (Mag-Ox -) 400 mg PO BID [facility] Last Admin: 12/22/17 11:17 Dose: 400 mg Melatonin (Melatonin) 10 mg PO HS [facility] Last Admin: 12/21/17 22:22 Dose: 10 mg Oxycodone HCl (Roxicodone -) 5 mg PO Q6H PRN PRN Reason: PAIN LEVEL 7 - 10 Last Admin: 12/22/17 11:17 Dose: 5 mg Pantoprazole Sodium (Protonix Iv) 40 mg IVPUSH DAILY [facility] Last Admin: 12/22/17 11:23 Dose: 40 mg Tramadol HCl (Ultram -) 50 mg PO Q8H PRN PRN Reason: PAIN LEVEL 4 - 6 - Objective Vital Signs: Vital Signs Temperature 97.5 F L 12/22/17 05:00 Pulse Rate 77 12/22/17 05:00 Respiratory Rate 18 12/22/17 05:00 Blood Pressure 129/67 12/22/17 05:00 O2 Sat by Pulse Oximetry (%) 97 12/21/17 21:00 Constitutional: Yes: Well Nourished, No Distress, Calm Cardiovascular: Yes: Regular Rate and Rhythm Respiratory: Yes: Regular Gastrointestinal: Yes: Normal Bowel Sounds, Soft Musculoskeletal: Yes: WNL Extremities: Yes: WNL Edema: No Peripheral Pulses WNL: Yes Neurological: Yes: Alert, Pre-Existing Deficit Psychiatric: Yes: Alert Labs: CBC, BMP 12/22/17 05:30 12/22/17 05:30 INR, PTT INR 1.19 (0.83-1.09) H 12/21/17 00:10 Problem List - Problems (1) Hyponatremia Assessment/Plan: -improved -nephrology consult Code(s): E87.1 - HYPO-OSMOLALITY AND HYPONATREMIA (2) Abdominal pain Assessment/Plan: -improved -CT abd reviewed -GI consult Code(s): R10.9 - UNSPECIFIED ABDOMINAL PAIN Qualifiers: Abdominal location: periumbilical Qualified Code(s): R10.33 - Periumbilical pain (3) Alkaline phosphatase elevation Code(s): R74.8 - ABNORMAL LEVELS OF OTHER SERUM ENZYMES (4) CKD (chronic kidney disease) Assessment/Plan: -improving -IVF -Nephrology consult -monitor trend Code(s): N18.9 - CHRONIC KIDNEY DISEASE, UNSPECIFIED (5) Elevated lipase Code(s): R74.8 - ABNORMAL LEVELS OF OTHER SERUM ENZYMES (6) Hypokalemia Assessment/Plan: -improved -D5NS+KCl 20 meq @ 75 cc/hr -KCl 40 Meq PO once -nephrology consult -monitor trend Code(s): E87.6 - HYPOKALEMIA (7) Anemia Assessment/Plan: -chronic -2/2 ckd? Code(s): D64.9 - ANEMIA, UNSPECIFIED Qualifiers: Anemia type: unspecified cause Assessment/Plan see problem list
[2017-12-22] MEDS ORDERED: POTASSIUM CHLORIDE TABS 20 MEQ TABLET.ER (FP) PO ONE (12:30)
--- NOTE | 2017-12-22 14:09 | PN ---
Progress Note, Physician History of Present Illness: Pt seen and examined at bedside. She is awake and alert. She feels better today. She feels pain is improving. - Current Medication List Current Medications: Active Medications Acetaminophen (Tylenol -) 650 mg PO Q6H PRN PRN Reason: PAIN OR FEVER Albuterol/Ipratropium (Duoneb -) 1 amp NEB RQID PRN PRN Reason: SHORT OF BREATH/WHEEZING Alprazolam (Xanax -) 0.5 mg PO Q8H PRN PRN Reason: ANXIETY Last Admin: 12/21/17 09:53 Dose: 0.5 mg Duloxetine HCl (Cymbalta -) 30 mg PO DAILY [facility] Last Admin: 12/22/17 11:17 Dose: 30 mg Gabapentin (Neurontin -) 300 mg PO TID [facility] Last Admin: 12/22/17 06:20 Dose: 300 mg Heparin Sodium (Porcine) (Heparin -) 5,000 unit SQ BID [facility] Last Admin: 12/22/17 11:24 Dose: 5,000 unit Dextrose/Sodium Chloride (Dextrose 5%-Normal Saline+20 Meq Kcl -) 20 meq in 1, 000 mls @ 50 mls/hr IV ASDIR [facility] Last Admin: 12/21/17 20:09 Dose: 50 mls/hr Magnesium Oxide (Mag-Ox -) 400 mg PO BID [facility] Last Admin: 12/22/17 11:17 Dose: 400 mg Melatonin (Melatonin) 10 mg PO HS [facility] Last Admin: 12/21/17 22:22 Dose: 10 mg Oxycodone HCl (Roxicodone -) 5 mg PO Q6H PRN PRN Reason: PAIN LEVEL 7 - 10 Last Admin: 12/22/17 11:17 Dose: 5 mg Pantoprazole Sodium (Protonix Iv) 40 mg IVPUSH DAILY [facility] Last Admin: 12/22/17 11:23 Dose: 40 mg Tramadol HCl (Ultram -) 50 mg PO Q8H PRN PRN Reason: PAIN LEVEL 4 - 6 - Objective Vital Signs: Vital Signs Temperature 97.8 F 12/22/17 10:00 Pulse Rate 86 12/22/17 10:00 Respiratory Rate 18 12/22/17 10:00 Blood Pressure 132/74 12/22/17 10:00 O2 Sat by Pulse Oximetry (%) 98 12/22/17 10:00 Constitutional: Yes: Calm Eyes: Yes: Conjunctiva Clear HENT: Yes: Atraumatic Neck: Yes: Supple Cardiovascular: Yes: S1, S2 Respiratory: Yes: CTA Bilaterally Gastrointestinal: Yes: Soft Musculoskeletal: Yes: WNL Extremities: Yes: WNL Edema: No Neurological: Yes: Oriented Psychiatric: Yes: Oriented Labs: CBC, BMP 12/22/17 05:30 12/22/17 05:30 INR, PTT INR 1.19 (0.83-1.09) H 12/21/17 00:10 Problem List - Problems (1) CKD (chronic kidney disease) Code(s): N18.9 - CHRONIC KIDNEY DISEASE, UNSPECIFIED (2) Elevated lipase Code(s): R74.8 - ABNORMAL LEVELS OF OTHER SERUM ENZYMES (3) Hypokalemia Code(s): E87.6 - HYPOKALEMIA Assessment/Plan Current Medications Generic Name Dose Route Start Last Admin Trade Name Freq PRN Reason Stop Dose Admin Acetaminophen 650 mg 12/21/17 08:52 Tylenol - PO Q6H PRN PAIN OR FEVER Albuterol/Ipratropium 1 amp 12/21/17 08:19 Duoneb - NEB RQID PRN SHORT OF BREATH/WHEEZING Alprazolam 0.5 mg 12/21/17 08:50 12/21/17 09:53 Xanax - PO 0.5 mg Q8H PRN Administration ANXIETY Duloxetine HCl 30 mg 12/21/17 10:00 12/22/17 11:17 Cymbalta - PO 30 mg DAILY [facility] Administration Gabapentin 300 mg 12/21/17 08:52 12/22/17 06:20 Neurontin - PO 300 mg TID [facility] Administration Heparin Sodium (Porcine) 5,000 unit 12/21/17 10:00 12/22/17 11:24 Heparin - SQ 5,000 unit BID [facility] Administration Dextrose/Sodium Chloride 20 meq in 1,000 mls @ 50 mls/hr 12/21/17 17:43 12/21 20:09 Dextrose 5%-Normal Saline+20 Meq Kcl - IV 50 mls/hr ASDIR [facility] Administration Magnesium Oxide 400 mg 12/21/17 10:00 12/22/17 11:17 Mag-Ox - PO 400 mg BID [facility] Administration Melatonin 10 mg 12/21/17 22:00 12/21/17 22:22 Melatonin PO 10 mg HS [facility] Administration Oxycodone HCl 5 mg 12/21/17 08:50 12/22/17 11:17 Roxicodone - PO 5 mg Q6H PRN Administration PAIN LEVEL 7 - 10 Pantoprazole Sodium 40 mg 12/21/17 10:00 12/22/17 11:23 Protonix Iv IVPUSH 40 mg DAILY [facility] Administration Tramadol HCl 50 mg 12/21/17 08:51 Ultram - PO Q8H PRN PAIN LEVEL 4 - 6 Impression 1. CKD with acute component 2. COPD 3. chronic back pain on opioids 4. anemia 5. anxiety 6. PNA 7. chf diastolic 8. hyponatremia 9. vomiting 10. possible complex renal cyst Plan - cont to monitor renal function - place fistula when stable - replace potassium - decrease fluids - will hold off po bicrab for now - will follow
[2017-12-22] MEDS ORDERED: D5-NS + 20 MEQ KCL - 20 MEQ/1,000 ML INFUS.BAG IV SCH (14:10)
[2017-12-22] MEDS: MELATONIN 5 MG TABLETS PO SCH (21:23)
[2017-12-23] MEDS: GABAPENTIN 300 MG CAPSULE (FP) PO SCH ×3 (05:46→21:55)
[2017-12-23 07:11] LABS: EOS % 11.4 % (0-4.5); HEMATOCRIT 24.3 % (32.4-45.2); HEMOGLOBIN 8.2 GM/dL (10.7-15.3); LYMPH % 19.9 % (8-40); MCH 28.8 pg (25.7-33.7); MCHC 33.7 g/dl (32.0-36.0); MEAN CELL VOLUME 85.3 fl (80-96); MEAN PLT VOLUME 7.6 fl (7.5-11.1); MONO % 5.7 % (3.8-10.2); PLATELET COUNT 321 K/MM3 (134-434); RBC 2.85 M/mm3 (3.60-5.2); RDW 18.4 % (11.6-15.6)
[2017-12-23 07:56] LABS: ALBUMIN 2.6 g/dl (3.4-5.0); ANION GAP 14 MMOL/L (8-16); BLOOD UREA NITROGEN 58 mg/dL (7-18); CALCIUM 8.2 mg/dL (8.5-10.1); CHLORIDE 109 mmol/L (98-107); CO2 19 mmol/L (21-32); CREATININE 3.9 mg/dL (0.55-1.02); GLUCOSE,RANDOM 110 mg/dL (74-106); POTASSIUM 3.5 mmol/L (3.5-5.1); SGOT/AST 11 U/L (15-37); SGPT/ALT 11 U/L (12-78); SODIUM 142 mmol/L (136-145)
[2017-12-23 07:57] LABS: ALK PHOS 172 U/L (45-117); BILIRUBIN,TOTAL 0.4 mg/dL (0.2-1.0); TOT PROT 5.6 g/dl (6.4-8.2)
[2017-12-23] MEDS: DULoxetine HCL 30 MG CAPSULE.DR (FP) PO SCH (10:25)
[2017-12-23] MEDS: PANTOPRAZOLE SODIUM 40 MG VIAL IVPUSH SCH (10:25)
[2017-12-23] MEDS: HEPARIN NA (PORCINE) 5,000 UNITS/ML 1ML VIAL SQ SCH ×2 (10:25→21:55)
[2017-12-23] MEDS: MAGNESIUM OXIDE 400 MG TABLET (FP) PO SCH ×2 (10:26→21:55)
--- NOTE | 2017-12-23 12:16 | PN ---
Progress Note, Physician History of Present Illness: Pt seen and examined at bedside. She is awake and alert. She denies shortness of breath. - Current Medication List Current Medications: Active Medications Acetaminophen (Tylenol -) 650 mg PO Q6H PRN PRN Reason: PAIN OR FEVER Albuterol/Ipratropium (Duoneb -) 1 amp NEB RQID PRN PRN Reason: SHORT OF BREATH/WHEEZING Alprazolam (Xanax -) 0.5 mg PO Q8H PRN PRN Reason: ANXIETY Last Admin: 12/21/17 09:53 Dose: 0.5 mg Duloxetine HCl (Cymbalta -) 30 mg PO DAILY [facility] Last Admin: 12/23/17 10:25 Dose: 30 mg Gabapentin (Neurontin -) 300 mg PO TID [facility] Last Admin: 12/23/17 05:46 Dose: 300 mg Heparin Sodium (Porcine) (Heparin -) 5,000 unit SQ BID [facility] Last Admin: 12/23/17 10:25 Dose: 5,000 unit Dextrose/Sodium Chloride (Dextrose 5%-Normal Saline+20 Meq Kcl -) 20 meq in 1, 000 mls @ 35 mls/hr IV ASDIR [facility] Last Admin: 12/22/17 14:50 Dose: 35 mls/hr Magnesium Oxide (Mag-Ox -) 400 mg PO BID [facility] Last Admin: 12/23/17 10:26 Dose: 400 mg Melatonin (Melatonin) 10 mg PO HS [facility] Last Admin: 12/22/17 21:23 Dose: 10 mg Oxycodone HCl (Roxicodone -) 5 mg PO Q6H PRN PRN Reason: PAIN LEVEL 7 - 10 Last Admin: 12/22/17 11:17 Dose: 5 mg Pantoprazole Sodium (Protonix Iv) 40 mg IVPUSH DAILY [facility] Last Admin: 12/23/17 10:25 Dose: 40 mg Tramadol HCl (Ultram -) 50 mg PO Q8H PRN PRN Reason: PAIN LEVEL 4 - 6 - Objective Vital Signs: Vital Signs Temperature 97.5 F L 12/23/17 06:00 Pulse Rate 79 12/23/17 06:00 Respiratory Rate 18 12/23/17 06:00 Blood Pressure 137/85 12/23/17 06:00 O2 Sat by Pulse Oximetry (%) 98 12/22/17 21:00 Constitutional: Yes: Calm Eyes: Yes: Conjunctiva Clear HENT: Yes: Atraumatic Neck: Yes: Supple Cardiovascular: Yes: S1, S2 Respiratory: Yes: CTA Bilaterally Gastrointestinal: Yes: Soft Genitourinary: Yes: WNL Musculoskeletal: Yes: WNL Edema: No Neurological: Yes: Oriented Psychiatric: Yes: Oriented Labs: CBC, BMP 12/23/17 05:30 12/23/17 05:30 INR, PTT INR 1.19 (0.83-1.09) H 12/21/17 00:10 Problem List - Problems (1) CKD (chronic kidney disease) Code(s): N18.9 - CHRONIC KIDNEY DISEASE, UNSPECIFIED (2) Elevated lipase Code(s): R74.8 - ABNORMAL LEVELS OF OTHER SERUM ENZYMES (3) Hypokalemia Code(s): E87.6 - HYPOKALEMIA Assessment/Plan Current Medications Generic Name Dose Route Start Last Admin Trade Name Freq PRN Reason Stop Dose Admin Acetaminophen 650 mg 12/21/17 08:52 Tylenol - PO Q6H PRN PAIN OR FEVER Albuterol/Ipratropium 1 amp 12/21/17 08:19 Duoneb - NEB RQID PRN SHORT OF BREATH/WHEEZING Alprazolam 0.5 mg 12/21/17 08:50 12/21/17 09:53 Xanax - PO 0.5 mg Q8H PRN Administration ANXIETY Duloxetine HCl 30 mg 12/21/17 10:00 12/23/17 10:25 Cymbalta - PO 30 mg DAILY [facility] Administration Gabapentin 300 mg 12/21/17 08:52 12/23/17 05:46 Neurontin - PO 300 mg TID [facility] Administration Heparin Sodium (Porcine) 5,000 unit 12/21/17 10:00 12/23/17 10:25 Heparin - SQ 5,000 unit BID [facility] Administration Dextrose/Sodium Chloride 20 meq in 1,000 mls @ 35 mls/hr 12/22/17 14:10 12/22 14:50 Dextrose 5%-Normal Saline+20 Meq Kcl - IV 35 mls/hr ASDIR [facility] Administration Magnesium Oxide 400 mg 12/21/17 10:00 12/23/17 10:26 Mag-Ox - PO 400 mg BID [facility] Administration Melatonin 10 mg 12/21/17 22:00 12/22/17 21:23 Melatonin PO 10 mg HS [facility] Administration Oxycodone HCl 5 mg 12/21/17 08:50 12/22/17 11:17 Roxicodone - PO 5 mg Q6H PRN Administration PAIN LEVEL 7 - 10 Pantoprazole Sodium 40 mg 12/21/17 10:00 12/23/17 10:25 Protonix Iv IVPUSH 40 mg DAILY [facility] Administration Tramadol HCl 50 mg 12/21/17 08:51 Ultram - PO Q8H PRN PAIN LEVEL 4 - 6 Impression 1. CKD with acute component 2. COPD 3. chronic back pain on opioids 4. anemia 5. anxiety 6. PNA 7. chf diastolic 8. hyponatremia 9. vomiting 10. possible complex renal cyst Plan - renal function is improving - vascular eval for fistula - repeat labs in am - can observe off of fluids - will follow
[2017-12-23] MEDS: oxyCODONE HCL 5 MG TABLET PO PRN (13:43)
--- NOTE | 2017-12-23 14:05 | EKG ---
Test Reason : Blood Pressure : / mmHG Vent. Rate : 082 BPM Atrial Rate : 082 BPM P-R Int : 196 ms QRS Dur : 090 ms QT Int : 446 ms P-R-T Axes : 057 -03 081 degrees QTc Int : 521 ms NORMAL SINUS RHYTHM SEPTAL INFARCT (CITED ON OR BEFORE 16-NOV-2017) PROLONGED QT ABNORMAL ECG WHEN COMPARED WITH ECG OF 19-NOV-2017 16:21, QT HAS LENGTHENED Confirmed by EVARISTO ZULUAGA MD ([id number]) on 12/23/2017 2:05:28 PM Referred By: Confirmed By:EVARISTO ZULUAGA MD
--- NOTE | 2017-12-23 20:30 | PN ---
Progress Note, Physician History of Present Illness: feels better tolerating diet - Current Medication List Current Medications: Active Medications Acetaminophen (Tylenol -) 650 mg PO Q6H PRN PRN Reason: PAIN OR FEVER Last Admin: 12/23/17 13:44 Dose: 325 mg Albuterol/Ipratropium (Duoneb -) 1 amp NEB RQID PRN PRN Reason: SHORT OF BREATH/WHEEZING Alprazolam (Xanax -) 0.5 mg PO Q8H PRN PRN Reason: ANXIETY Last Admin: 12/21/17 09:53 Dose: 0.5 mg Duloxetine HCl (Cymbalta -) 30 mg PO DAILY [facility] Last Admin: 12/23/17 10:25 Dose: 30 mg Gabapentin (Neurontin -) 300 mg PO TID [facility] Last Admin: 12/23/17 13:37 Dose: 300 mg Heparin Sodium (Porcine) (Heparin -) 5,000 unit SQ BID [facility] Last Admin: 12/23/17 10:25 Dose: 5,000 unit Magnesium Oxide (Mag-Ox -) 400 mg PO BID [facility] Last Admin: 12/23/17 10:26 Dose: 400 mg Melatonin (Melatonin) 10 mg PO HS [facility] Last Admin: 12/22/17 21:23 Dose: 10 mg Oxycodone HCl (Roxicodone -) 5 mg PO Q6H PRN PRN Reason: PAIN LEVEL 7 - 10 Last Admin: 12/23/17 13:43 Dose: 5 mg Pantoprazole Sodium (Protonix Iv) 40 mg IVPUSH DAILY [facility] Last Admin: 12/23/17 10:25 Dose: 40 mg Tramadol HCl (Ultram -) 50 mg PO Q8H PRN PRN Reason: PAIN LEVEL 4 - 6 - Objective Vital Signs: Vital Signs Temperature 97.6 F 12/23/17 17:25 Pulse Rate 78 12/23/17 17:25 Respiratory Rate 18 12/23/17 20:14 Blood Pressure 140/82 12/23/17 17:25 O2 Sat by Pulse Oximetry (%) 98 12/23/17 20:14 Cardiovascular: Yes: S1, S2 Respiratory: Yes: Regular, CTA Bilaterally Gastrointestinal: Yes: Normal Bowel Sounds, Soft. No: Tenderness Labs: CBC, BMP 12/23/17 05:30 12/23/17 05:30 INR, PTT INR 1.19 (0.83-1.09) H 12/21/17 00:10 Assessment/Plan - Problems (1) Hyponatremia Assessment/Plan: -improved -nephrology consult Code(s): E87.1 - HYPO-OSMOLALITY AND HYPONATREMIA (2) Abdominal pain Assessment/Plan: -improved -CT abd reviewed -GI consult Code(s): R10.9 - UNSPECIFIED ABDOMINAL PAIN Qualifiers: Abdominal location: periumbilical Qualified Code(s): R10.33 - Periumbilical pain (3) Alkaline phosphatase elevation Code(s): R74.8 - ABNORMAL LEVELS OF OTHER SERUM ENZYMES (4) CKD (chronic kidney disease) Assessment/Plan: -improving -IVF -Nephrology consult -monitor trend Code(s): N18.9 - CHRONIC KIDNEY DISEASE, UNSPECIFIED (5) Elevated lipase Code(s): R74.8 - ABNORMAL LEVELS OF OTHER SERUM ENZYMES (6) Hypokalemia Assessment/Plan: -improved -D5NS+KCl 20 meq @ 75 cc/hr -KCl 40 Meq PO once -nephrology consult -monitor trend Code(s): E87.6 - HYPOKALEMIA (7) Anemia Assessment/Plan: -chronic -2/2 ckd? Code(s): D64.9 - ANEMIA, UNSPECIFIED Qualifiers: Anemia type: unspecified cause
[2017-12-23] MEDS: MELATONIN 5 MG TABLETS PO SCH (21:55)
[2017-12-24] MEDS: GABAPENTIN 300 MG CAPSULE (FP) PO SCH ×2 (06:20→15:04)
[2017-12-24 06:54] LABS: BASO % 1.2 % (0-2.0); EOS % 10.1 % (0-4.5); HEMOGLOBIN 8.5 GM/dL (10.7-15.3); LYMPH % 23.2 % (8-40); MCH 28.8 pg (25.7-33.7); MCHC 33.8 g/dl (32.0-36.0); MEAN CELL VOLUME 85.2 fl (80-96); MEAN PLT VOLUME 7.8 fl (7.5-11.1); MONO % 5.9 % (3.8-10.2); NEUT % 59.6 % (42.8-82.8); PLATELET COUNT 350 K/MM3 (134-434); RBC 2.94 M/mm3 (3.60-5.2); RDW 18.3 % (11.6-15.6); WHITE BLOOD COUNT 8.2 K/mm3 (4.0-10.0)
[2017-12-24 07:17] LABS: CHLORIDE 106 mmol/L (98-107); SODIUM 140 mmol/L (136-145)
[2017-12-24 07:31] LABS: ALBUMIN 2.7 g/dl (3.4-5.0); ALK PHOS 187 U/L (45-117); ANION GAP 13 MMOL/L (8-16); BILIRUBIN,TOTAL 0.3 mg/dL (0.2-1.0); BLOOD UREA NITROGEN 62 mg/dL (7-18); CALCIUM 8.2 mg/dL (8.5-10.1); CO2 21 mmol/L (21-32); CREATININE 4.1 mg/dL (0.55-1.02); GLUCOSE,RANDOM 87 mg/dL (74-106); SGOT/AST 14 U/L (15-37); SGPT/ALT 11 U/L (12-78)
[2017-12-24] MEDS: DULoxetine HCL 30 MG CAPSULE.DR (FP) PO SCH (10:15)
[2017-12-24] MEDS: HEPARIN NA (PORCINE) 5,000 UNITS/ML 1ML VIAL SQ SCH (10:15)
[2017-12-24] MEDS: MAGNESIUM OXIDE 400 MG TABLET (FP) PO SCH (10:15)
[2017-12-24] MEDS: PANTOPRAZOLE SODIUM 40 MG VIAL IVPUSH SCH (10:15)
--- NOTE | 2017-12-24 11:08 | DS ---
Physical Examination Vital Signs: Vital Signs Temperature 98 F 12/24/17 09:00 Pulse Rate 78 12/24/17 09:00 Respiratory Rate 18 12/24/17 09:00 Blood Pressure 140/70 12/24/17 09:00 O2 Sat by Pulse Oximetry (%) 98 12/23/17 20:14 Findings/Remarks: Pt is a 62 year old female with pmhx of PNA, UTI, gastritis, CKD, HTN, asthma, HLD and chronic back pain who presents to the ER complaining of nausea and abdominal pain. She has also had several episodes of vomiting. She was found to have worsening of her renal function and I was called to evaluate her. She denies shortness of breath. She denies dysuria. She is opioid dependent. She is poorly compliant with outpt follow up. Constitutional: Yes: Well Nourished, No Distress, Calm Cardiovascular: Yes: Regular Rate and Rhythm Respiratory: Yes: Regular Gastrointestinal: Yes: Normal Bowel Sounds, Soft Musculoskeletal: Yes: WNL Extremities: Yes: WNL Edema: No Neurological: Yes: Alert, Oriented Psychiatric: Yes: Alert, Oriented Labs: CBC, BMP 12/24/17 05:30 12/24/17 05:30 Discharge Summary Reason For Visit: PROLONGED QT INTERVAL;ABDOMINAL PAIN;HYPOKALEMIA Current Active Problems Abdominal pain (Acute) Alkaline phosphatase elevation (Acute) CKD (chronic kidney disease) (Acute) COPD (chronic obstructive pulmonary disease) (Acute) Elevated lipase (Acute) H/O Mycobacterium avium complex infection (Acute) Hyperthyroidism (Acute) Hypokalemia (Acute) Hyponatremia (Acute) Marijuana abuse (Acute) QT prolongation (Acute) Thrombocytosis (Acute) Hospital Course: Microbiology 12/20/17 00:10 Blood - Peripheral Venous Blood Culture - Preliminary NO GROWTH OBTAINED AFTER 72 HOURS, INCUBATION TO CONTINUE FOR 2 DAYS. 12/20/17 00:10 Blood - Peripheral Venous Blood Culture - Preliminary NO GROWTH OBTAINED AFTER 72 HOURS, INCUBATION TO CONTINUE FOR 2 DAYS. 12/20/17 22:54 Urine - Urine Clean Catch Urine Culture - Final NO GROWTH OBTAINED Laboratory Results - last 24 hr 12/24/17 12/24/17 05:30 05:30 WBC 8.2 RBC 2.94 L Hgb 8.5 L Hct 25.0 L MCV 85.2 MCH 28.8 MCHC 33.8 RDW 18.3 H Plt Count 350 MPV 7.8 Absolute Neuts (auto) 4.9 Neutrophils % 59.6 Lymphocytes % 23.2 Monocytes % 5.9 Eosinophils % 10.1 H Basophils % 1.2 Nucleated RBC % 0 Sodium 140 Potassium 4.0 Chloride 106 Carbon Dioxide 21 Anion Gap 13 BUN 62 H Creatinine 4.1 H Creat Clearance w eGFR 11.10 Random Glucose 87 Calcium 8.2 L Total Bilirubin 0.3 AST 14 L ALT 11 L Alkaline Phosphatase 187 H D Total Protein 6.0 L Albumin 2.7 L Condition: Stable - Instructions Referrals: Marvin Johnson MD [Staff Physician] - Disposition: HOME - Home Medications Comprehensive Discharge Medication List: Ambulatory Orders Methocarbamol [Robaxin -] 500 mg PO TID PRN 11/02/17 Gabapentin [Neurontin] 300 mg PO TID #42 capsule 11/13/17 Acetaminophen 325 mg PO Q6H 11/19/17 Albuterol 2.5/Ipratropium 0.5 [Duoneb -] 1 neb IH QID 11/19/17 Alprazolam [Xanax] 0.5 mg PO TID PRN 11/19/17 Heparin - 5,000 unit SQ TID 11/19/17 Melatonin 10 mg PO HS 11/19/17 Oxycodone HCl 5 mg PO QID PRN 11/19/17 Pantoprazole Sodium 40 mg PO DAILY 11/19/17 Aspirin Coated [Ecotrin -] 325 mg PO DAILY 11/25/17 Docusate Sodium [Colace -] 300 mg PO HS #30 capsule 12/12/17 Duloxetine HCl [Cymbalta -] 30 mg PO DAILY #30 capsule. 12/12/17 Magnesium Oxide [Mag-Ox -] 400 mg PO BID #6 tablet 12/12/17 Azithromycin Ophth Soln [Azasite 1% Ophth Soln -] 2 drop OP TID 5 Days #1 bottle 12/13/17 Erythromycin 0.5% Eye Ointment [Erythromycin 0.5% Eye Ointment -] 1 applic TP BID 5 Days #1 tube 12/13/17
--- NOTE | 2017-12-24 12:43 | PN ---
Progress Note (short form) - Note Progress Note: PT seen today with Dr. Johnson for possible fistula formation as an outpatient versus in patient. She states that she is left handed. Will order vein mapping of right upper ext with precautions to RUE. If the patient stays can plan for fistula on of this week. Vital Signs Period Temp Pulse Resp BP Sys/Bills Pulse Ox Last 24 Hr 97.6 F-98.1 F 60-83 18-20 139-144/52-87 98 CBC, BMP 12/24/17 05:30 12/24/17 05:30 INR, PTT INR 1.19 (0.83-1.09) H 12/21/17 00:10 Problem List - Problems (1) Chronic kidney disease (CKD) Assessment/Plan: Pt seen today with Dr. Johnson Plan for possible fistula versus outpatient as per the medical and renal team Macario mapping ordered and limb preservation Code(s): N18.9 - CHRONIC KIDNEY DISEASE, UNSPECIFIED
--- NOTE | 2017-12-24 15:21 | PN ---
Progress Note, Physician History of Present Illness: Pt seen and examined at bedside. She appears comfortable. She denies shortness of breath. - Current Medication List Current Medications: Active Medications Acetaminophen (Tylenol -) 650 mg PO Q6H PRN PRN Reason: PAIN OR FEVER Last Admin: 12/23/17 13:44 Dose: 325 mg Albuterol/Ipratropium (Duoneb -) 1 amp NEB RQID PRN PRN Reason: SHORT OF BREATH/WHEEZING Alprazolam (Xanax -) 0.5 mg PO Q8H PRN PRN Reason: ANXIETY Last Admin: 12/21/17 09:53 Dose: 0.5 mg Duloxetine HCl (Cymbalta -) 30 mg PO DAILY [facility] Last Admin: 12/24/17 10:15 Dose: 30 mg Gabapentin (Neurontin -) 300 mg PO TID [facility] Last Admin: 12/24/17 15:04 Dose: 300 mg Heparin Sodium (Porcine) (Heparin -) 5,000 unit SQ BID [facility] Last Admin: 12/24/17 10:15 Dose: 5,000 unit Magnesium Oxide (Mag-Ox -) 400 mg PO BID [facility] Last Admin: 12/24/17 10:15 Dose: 400 mg Melatonin (Melatonin) 10 mg PO HS [facility] Last Admin: 12/23/17 21:55 Dose: 10 mg Oxycodone HCl (Roxicodone -) 5 mg PO Q6H PRN PRN Reason: PAIN LEVEL 7 - 10 Last Admin: 12/23/17 13:43 Dose: 5 mg Pantoprazole Sodium (Protonix Iv) 40 mg IVPUSH DAILY [facility] Last Admin: 12/24/17 10:15 Dose: 40 mg Tramadol HCl (Ultram -) 50 mg PO Q8H PRN PRN Reason: PAIN LEVEL 4 - 6 - Objective Vital Signs: Vital Signs Temperature 98 F 12/24/17 09:00 Pulse Rate 78 12/24/17 09:00 Respiratory Rate 18 12/24/17 09:00 Blood Pressure 140/70 12/24/17 09:00 O2 Sat by Pulse Oximetry (%) 98 12/23/17 20:14 Constitutional: Yes: Calm Eyes: Yes: Conjunctiva Clear HENT: Yes: Atraumatic Cardiovascular: Yes: S1, S2 Respiratory: Yes: CTA Bilaterally Gastrointestinal: Yes: Normal Bowel Sounds, Soft Genitourinary: Yes: WNL Musculoskeletal: Yes: WNL Edema: No Neurological: Yes: Oriented Psychiatric: Yes: Oriented Labs: CBC, BMP 12/24/17 05:30 12/24/17 05:30 INR, PTT INR 1.19 (0.83-1.09) H 12/21/17 00:10 Problem List - Problems (1) CKD (chronic kidney disease) Code(s): N18.9 - CHRONIC KIDNEY DISEASE, UNSPECIFIED (2) Elevated lipase Code(s): R74.8 - ABNORMAL LEVELS OF OTHER SERUM ENZYMES (3) Hypokalemia Code(s): E87.6 - HYPOKALEMIA Assessment/Plan Current Medications Generic Name Dose Route Start Last Admin Trade Name Freq PRN Reason Stop Dose Admin Acetaminophen 650 mg 12/21/17 08:52 12/23/17 13:44 Tylenol - PO 325 mg Q6H PRN Administration PAIN OR FEVER Albuterol/Ipratropium 1 amp 12/21/17 08:19 Duoneb - NEB RQID PRN SHORT OF BREATH/WHEEZING Alprazolam 0.5 mg 12/21/17 08:50 12/21/17 09:53 Xanax - PO 0.5 mg Q8H PRN Administration ANXIETY Duloxetine HCl 30 mg 12/21/17 10:00 12/24/17 10:15 Cymbalta - PO 30 mg DAILY [facility] Administration Gabapentin 300 mg 12/21/17 08:52 12/24/17 15:04 Neurontin - PO 300 mg TID [facility] Administration Heparin Sodium (Porcine) 5,000 unit 12/21/17 10:00 12/24/17 10:15 Heparin - SQ 5,000 unit BID [facility] Administration Magnesium Oxide 400 mg 12/21/17 10:00 12/24/17 10:15 Mag-Ox - PO 400 mg BID [facility] Administration Melatonin 10 mg 12/21/17 22:00 12/23/17 21:55 Melatonin PO 10 mg HS [facility] Administration Oxycodone HCl 5 mg 12/21/17 08:50 12/23/17 13:43 Roxicodone - PO 5 mg Q6H PRN Administration PAIN LEVEL 7 - 10 Pantoprazole Sodium 40 mg 12/21/17 10:00 12/24/17 10:15 Protonix Iv IVPUSH 40 mg DAILY [facility] Administration Tramadol HCl 50 mg 12/21/17 08:51 Ultram - PO Q8H PRN PAIN LEVEL 4 - 6 Impression 1. CKD with acute component 2. COPD 3. chronic back pain on opioids 4. anemia 5. anxiety 6. PNA 7. chf diastolic 8. hyponatremia 9. vomiting 10. possible complex renal cyst Plan - called pts son and left a voicemail twice today to discuss her renal care - vascular input appreciated - can keep off of fluids for now - renal function is stable however should prepare for HD - will follow
[2017-12-24 18:08] VITALS: BP 133/68; PULSE 86; TEMP 98.4
== END 2017-12-24 19:15 | disposition home or self-care (01) | DRG 460 ==
LOC: JER 21:48 → JERBED 12-21 04:14 → J4W 12-21 06:44
PROVIDERS: ADMIT Internal Medicine; ATTEND Family Medicine
DX: N17.9 Acute kidney failure, unspecified (principal); E87.1 Hypo-osmolality and hyponatremia; R10.33 Periumbilical pain; J44.9 Chronic obstructive pulmonary disease, unspecified; I13.0 Hypertensive heart and chronic kidney disease with heart failure and stage 1 through stage 4 chronic kidney disease, or unspecified chronic kidney disease; F11.20 Opioid dependence, uncomplicated; N28.1 Cyst of kidney, acquired; I50.32 Chronic diastolic (congestive) heart failure; N18.4 Chronic kidney disease, stage 4 (severe); I31.3 Pericardial effusion (noninflammatory); E78.5 Hyperlipidemia, unspecified; Z87.440 Personal history of urinary (tract) infections; K29.70 Gastritis, unspecified, without bleeding; M51.26 Other intervertebral disc displacement, lumbar region; F41.9 Anxiety disorder, unspecified; F32.9 Major depressive disorder, single episode, unspecified; E87.6 Hypokalemia; I45.81 Long QT syndrome; J98.11 Atelectasis; D47.3 Essential (hemorrhagic) thrombocythemia; K27.9 Peptic ulcer, site unspecified, unspecified as acute or chronic, without hemorrhage or perforation; K21.9 Gastro-esophageal reflux disease without esophagitis; M51.36 Other intervertebral disc degeneration, lumbar region; F17.210 Nicotine dependence, cigarettes, uncomplicated; D64.9 Anemia, unspecified; F12.10 Cannabis abuse, uncomplicated; R74.8 Abnormal levels of other serum enzymes; E05.90 Thyrotoxicosis, unspecified without thyrotoxic crisis or storm
CPT/HCPCS: 36415; 71045-TC-FY; 74176-TC; 76705-TC; 80048; 80053; 81003; 81015; 82248; 83605; 83690; 83735; 84100; 84484; 85025; 85610; 86850; 86900; 86901; 87040; 87086; 93005; 93010; 93930; 93971; 99283-25; J0131; J1644

== ENCOUNTER → 2017-12-26 | Day surgery (SDC) | payer OTHER ==
[2017-12-25 16:05] VITALS: BMI 22.8
== END | disposition home or self-care (01) ==
LOC: JASU-SURG 11:24
PROVIDERS: ATTEND Surgery Vascular Surgery
PROC: 3E033GC Introduction of Other Therapeutic Substance into Peripheral Vein, Percutaneous Approach (ICD-10-PCS; principal; 2017-12-26)
DX: Z53.8 Procedure and treatment not carried out for other reasons (principal)
CPT/HCPCS: 36415; 84132

== ENCOUNTER 2017-12-31 22:48 | Emergency (ER) | payer OTHER ==
[2017-12-31 23:15] VITALS: BP 112/60; PULSE 93; TEMP 97.9; BMI 23.0
--- NOTE | 2017-12-31 23:46 | PDOC ---
History of Present Illness - General History Source: Patient Exam Limitations: No Limitations - History of Present Illness Initial Comments: 01/01/18 00:05 The patient is a 62 year old female with a significant PMH of CKD, anemia, asthma, ovarian ca, COPD, bleeding ulcer, kidney stones hyperlipidemia, hypothyroidism, lumbar back disease, and hypertension who presents to the emergency department with abdominal pain since earlier today. The patient reports some associated vomiting and nausea with her abdominal pain. The patient was seen in the ED about [address] Prudencio Dill and [address] Feliciano with similar complaint. The patient reports having kidney problems. She denies any other symptoms. She denies any fever chills, diarrhea, constipation, or urinary symptoms. She denies any chest pain, shortness of breath, headache and dizziness. The patient denies any other complaints. <Veena Ornelas - Last Filed: 01/01/18 00:04> <Sharon Layne - Last Filed: 01/01/18 01:57> - General Chief Complaint: Pain, Acute Stated Complaint: ABDOMINAL PAIN Time Seen by Provider: 12/31/17 23:07 Past History <Veena Ornelas - Last Filed: 01/01/18 00:04> - Past Medical History Anemia: Yes Asthma: Yes Cancer: No Cardiac Disorders: Yes CVA: No COPD: Yes CHF: No DVT: No Dementia: No Diabetes: No GI Disorders: Yes (bleeding ulcer) Disorders: Yes (KIDNEY STONE;) HTN: Yes Hypercholesterolemia: Yes Kidney Stones: Yes Liver Disease: No Psychiatric Problems: Yes (ANXIETY, DEPRESSION) Seizures: No Thyroid Disease: Yes (hypothyroid) - Surgical History Abdominal Surgery: No Appendectomy: No Cardiac Surgery: No Cholecystectomy: No Lung Surgery: No Neurologic Surgery: No Orthopedic Surgery: Yes (B/L hip replacement (rt 2009; left 2012)) - Immunization History Td Vaccination: Yes TDAP Vaccination: No Immunization Up to Date: Yes - Suicide/Smoking/Psychosocial Hx Smoking Status: Yes Smoking History: Unknown if ever smoked Years of Tobacco Use: 30 Have you smoked in the past 12 months: No Number of Cigarettes Smoked Daily: 4 If you are a former smoker, when did you quit?: refused booklet 07/21/14 Cigars Per Day: 0 Information on smoking cessation initiated: No 'Breaking Loose' booklet given: 06/28/16 Hx Alcohol Use: No Drug/Substance Use Hx: No Substance Use Type: Cocaine, Marijuana Hx Substance Use Treatment: Yes <Sharon Layne - Last Filed: 01/01/18 01:57> - Past Medical History Allergies/Adverse Reactions: Allergies Allergy/AdvReac Type Severity Reaction Status Date / Time levofloxacin [From Levaquin] Allergy Mild Itching Verified 12/31/17 23:14 Home Medications: Ambulatory Orders Methocarbamol [Robaxin -] 500 mg PO TID PRN 11/02/17 Gabapentin [Neurontin] 300 mg PO TID #42 capsule 11/13/17 Acetaminophen 325 mg PO Q6H 11/19/17 Albuterol 2.5/Ipratropium 0.5 [Duoneb -] 1 neb IH QID 11/19/17 Alprazolam [Xanax] 0.5 mg PO TID PRN 11/19/17 Heparin - 5,000 unit SQ TID 11/19/17 Melatonin 10 mg PO HS 11/19/17 Oxycodone HCl 5 mg PO QID PRN 11/19/17 Pantoprazole Sodium 40 mg PO DAILY 11/19/17 Aspirin Coated [Ecotrin -] 325 mg PO DAILY 11/25/17 Docusate Sodium [Colace -] 300 mg PO HS #30 capsule 12/12/17 Duloxetine HCl [Cymbalta -] 30 mg PO DAILY #30 capsule. 12/12/17 Magnesium Oxide [Mag-Ox -] 400 mg PO BID #6 tablet 12/12/17 Azithromycin Ophth Soln [Azasite 1% Ophth Soln -] 2 drop OP TID 5 Days #1 bottle 12/13/17 Erythromycin 0.5% Eye Ointment [Erythromycin 0.5% Eye Ointment -] 1 applic TP BID 5 Days #1 tube 12/13/17 Amlodipine Besylate [Norvasc -] 10 mg PO DAILY 12/24/17 Atorvastatin Ca [Lipitor] 10 mg PO HS 12/24/17 Donepezil HCl [Aricept] 5 mg PO HS 12/24/17 Paroxetine HCl [Paxil -] 20 mg PO DAILY 12/24/17 Varenicline Tartrate [Chantix] 1 mg PO DAILY 12/24/17 Cephalexin Monohydrate [Keflex -] 250 mg PO BID #28 capsule 12/29/17 Review of Systems - Review of Systems Able to Perform ROS?: Yes Comments:: 01/01/18 00:05 CONSTITUTIONAL: Absent: fever, chills, diaphoresis, generalized weakness, malaise, loss of appetite HEENT: Absent: rhinorrhea, nasal congestion, throat pain, throat swelling, difficulty swallowing, mouth swelling, ear pain, eye pain, visual Changes CARDIOVASCULAR: Absent: chest pain, syncope, palpitations, irregular heart rate, lightheadedness , peripheral edema RESPIRATORY: Absent: cough, shortness of breath, dyspnea with exertion, orthopnea, wheezing, stridor, hemoptysis GASTROINTESTINAL:(+)abdominal pain, nausea, vomiting. Absent: abdominal distension, diarrhea, constipation, melena, hematochezia GENITOURINARY: Absent: dysuria, frequency, urgency, hesitancy, hematuria, flank pain, genital pain MUSCULOSKELETAL: Absent: myalgia, arthralgia, joint swelling SKIN: Absent: rash, itching, pallor HEMATOLOGIC/IMMUNOLOGIC: Absent: easy bleeding, easy bruising, lymphadenopathy, frequent infections ENDOCRINE: Absent: unexplained weight gain, unexplained weight loss, heat intolerance, cold intolerance NEUROLOGIC: Absent: headache, focal weakness or paresthesias, dizziness, unsteady gait, seizure, mental status changes, bladder or bowel incontinence PSYCHIATRIC: Absent: anxiety, depression, suicidal or homicidal ideation, hallucinations. <Veena Ornelas - Last Filed: 01/01/18 00:04> *Physical Exam - Vital Signs Last Vital Signs Temp Pulse Resp BP Pulse Ox 97.9 F 93 H 20 112/60 100 12/31/17 23:14 12/31/17 23:14 12/31/17 23:14 12/31/17 23:14 12/31/17 23:14 - Physical Exam Comments: 01/01/18 00:05 GENERAL: Well developed, well nourished. Awake and alert. No acute distress. HEENT: Normocephalic, atraumatic. PERRLA, EOMI. No conjunctival pallor. Sclera are non- icteric. Moist mucous membranes. Oropharynx is clear. NECK: Supple. Full ROM. No JVD. Carotid pulses 2+ and symmetric, without bruits. No thyromegaly. No lymphadenopathy. CARDIOVASCULAR: Regular rate and rhythm. No murmurs, rubs, or gallops. Distal pulses are 2+ and symmetric. PULMONARY: (+)scant scattered wheezing. No evidence of respiratory distress. No rales or rhonchi. ABDOMINAL: Soft. Non-tender. Non-distended. No rebound or guarding. No organomegaly. Normoactive bowel sounds. MUSCULOSKELETAL Normal range of motion at all joints. No bony deformities or tenderness. No CVA tenderness. EXTREMITIES: No cyanosis. No clubbing. No edema. No calf tenderness. SKIN: Warm and dry. Normal capillary refill. No rashes. No jaundice. No cellulitis NEUROLOGICAL: (+)poor historian Alert, awake, appropriate. Cranial nerves 2-12 intact. No deficits to light touch and temperature in face, upper extremities and lower extremities. No motor deficits in the in face, upper extremities and lower extremities. Normoreflexic in the upper and lower extremities. Normal speech. Toes are down- going bilaterally. Gait is normal without ataxia. PSYCHIATRIC: Cooperative. Good eye contact. Appropriate mood and affect. <Veena Ornelas - Last Filed: 01/01/18 00:04> - Vital Signs Last Vital Signs Temp Pulse Resp BP Pulse Ox 97.9 F 93 H 20 112/60 100 12/31/17 23:14 12/31/17 23:14 12/31/17 23:14 12/31/17 23:14 12/31/17 23:14 <Sharon Layne - Last Filed: 01/01/18 01:57> ED Treatment Course - LABORATORY CBC & Chemistry Diagram: 01/01/18 01:15 <Sharon Layne - Last Filed: 01/01/18 01:57> *DC/Admit/Observation/Transfer - Attestations Scribe Attestion: 01/01/18 00:05 Documentation prepared by Veena Ornelas, acting as medical legal investigator for Sharon Layne MD. <Veena Ornelas - Last Filed: 01/01/18 00:04> <Sharon Layne - Last Filed: 01/01/18 01:57> Diagnosis at time of Disposition: CKD (chronic kidney disease) Qualifiers: Chronic kidney disease stage: stage 4 (severe) Qualified Code(s): N18.4 - Chronic kidney disease, stage 4 (severe) Anemia Qualifiers: Anemia type: due to chronic kidney disease Chronic kidney disease stage: stage 4 (severe) Qualified Code(s): N18.4 - Chronic kidney disease, stage 4 (severe) Asthma Qualifiers: Asthma severity: mild Asthma persistence: unspecified Asthma complication type : uncomplicated Qualified Code(s): J45.909 - Unspecified asthma, uncomplicated Abdominal pain Qualifiers: Abdominal location: generalized Qualified Code(s): R10.84 - Generalized abdominal pain - Discharge Dispostion Disposition: HOME Condition at time of disposition: Fair - Referrals Referrals: Marvin Johnson MD [Staff Physician] - Sofy Coe MD [Staff Physician] - - Patient Instructions Printed Discharge Instructions: DI for Kidney Failure, DI for Chronic Pain -- Adult Additional Instructions: you need to follow up with the kidney doctor as soon as possible
[2018-01-01] MEDS ORDERED: ONDANSETRON *ODT* 4 MG TABLET SL ONE (00:03)
[2018-01-01] MEDS ORDERED: ONDANSETRON *ODT* 4 MG TABLET ONE ×2 (00:15→00:18)
[2018-01-01] MEDS ORDERED: ALBUTEROL SO4 2.5/IPRATROPIUM 0.5 INH SOL 3 ML VIAL.NEB. NEB ONE (00:15)
[2018-01-01 01:45] LABS: ALBUMIN 3.6 g/dl (3.4-5.0); ALK PHOS 291 U/L (45-117); ANION GAP 15 MMOL/L (8-16); BILIRUBIN,TOTAL 0.5 mg/dL (0.2-1.0); BLOOD UREA NITROGEN 71 mg/dL (7-18); CALCIUM 8.7 mg/dL (8.5-10.1); CHLORIDE 105 mmol/L (98-107); CO2 18 mmol/L (21-32); CREATININE 4.6 mg/dL (0.55-1.02); GLUCOSE,RANDOM 125 mg/dL (74-106); POTASSIUM 3.7 mmol/L (3.5-5.1); SGOT/AST 17 U/L (15-37); SGPT/ALT 16 U/L (12-78); SODIUM 138 mmol/L (136-145); TOT PROT 7.3 g/dl (6.4-8.2)
== END 2018-01-01 02:56 | disposition home or self-care (01) ==
LOC: JER 22:48
DX: R10.84 Generalized abdominal pain (principal); I12.9 Hypertensive chronic kidney disease with stage 1 through stage 4 chronic kidney disease, or unspecified chronic kidney disease; N18.9 Chronic kidney disease, unspecified; D64.9 Anemia, unspecified; J45.909 Unspecified asthma, uncomplicated; J44.9 Chronic obstructive pulmonary disease, unspecified; E78.5 Hyperlipidemia, unspecified; E03.9 Hypothyroidism, unspecified; F32.9 Major depressive disorder, single episode, unspecified; Z87.19 Personal history of other diseases of the digestive system; Z85.43 Personal history of malignant neoplasm of ovary; Z87.442 Personal history of urinary calculi; Z88.1 Allergy status to other antibiotic agents; F41.9 Anxiety disorder, unspecified
CPT/HCPCS: 36415; 80053; 99283-25; Q0162

== ENCOUNTER 2018-01-05 07:03 | Emergency (ER) | payer OTHER ==
[2018-01-05 07:20] VITALS: BMI 22.1
--- NOTE | 2018-01-05 07:52 | PDOC ---
History of Present Illness - General Chief Complaint: Pain Stated Complaint: BACK PAIN Time Seen by Provider: 01/05/18 07:52 - History of Present Illness Initial Comments: 62 year female with PMH of CKD, anemia, asthma, ovarian ca, COPD, bleeding ulcer , kidney stones hyperlipidemia, hypothyroidism, lumbar back disease, and hypertension presenting with bleeding from her left nostril suddenly this morning after waking up. After multiple rounds of question sas to the cause for the nasal bleeding, she continues to adamantly deny trauma or insuflation of substances into the nose. Of note, she has been cocaine positive multiple times in the past. Her only other complaint was back pain but she admits that it was the same back pain she has suffered chronically in the past. 01/05/18 07:53 Past History - Past Medical History Allergies/Adverse Reactions: Allergies Allergy/AdvReac Type Severity Reaction Status Date / Time levofloxacin [From Levaquin] Allergy Mild Itching Verified 01/05/18 07:17 Home Medications: Ambulatory Orders Methocarbamol [Robaxin -] 500 mg PO TID PRN 11/02/17 Gabapentin [Neurontin] 300 mg PO TID #42 capsule 11/13/17 Acetaminophen 325 mg PO Q6H 11/19/17 Albuterol 2.5/Ipratropium 0.5 [Duoneb -] 1 neb IH QID 11/19/17 Alprazolam [Xanax] 0.5 mg PO TID PRN 11/19/17 Heparin - 5,000 unit SQ TID 11/19/17 Melatonin 10 mg PO HS 11/19/17 Oxycodone HCl 5 mg PO QID PRN 11/19/17 Pantoprazole Sodium 40 mg PO DAILY 11/19/17 Aspirin Coated [Ecotrin -] 325 mg PO DAILY 11/25/17 Docusate Sodium [Colace -] 300 mg PO HS #30 capsule 12/12/17 Duloxetine HCl [Cymbalta -] 30 mg PO DAILY #30 capsule. 12/12/17 Magnesium Oxide [Mag-Ox -] 400 mg PO BID #6 tablet 12/12/17 Azithromycin Ophth Soln [Azasite 1% Ophth Soln -] 2 drop OP TID 5 Days #1 bottle 12/13/17 Erythromycin 0.5% Eye Ointment [Erythromycin 0.5% Eye Ointment -] 1 applic TP BID 5 Days #1 tube 12/13/17 Amlodipine Besylate [Norvasc -] 10 mg PO DAILY 12/24/17 Atorvastatin Ca [Lipitor] 10 mg PO HS 12/24/17 Donepezil HCl [Aricept] 5 mg PO HS 12/24/17 Paroxetine HCl [Paxil -] 20 mg PO DAILY 12/24/17 Varenicline Tartrate [Chantix] 1 mg PO DAILY 12/24/17 Cephalexin Monohydrate [Keflex -] 250 mg PO BID #28 capsule 12/29/17 Anemia: Yes Asthma: Yes Cancer: No Cardiac Disorders: Yes CVA: No COPD: Yes CHF: No DVT: No Dementia: No Diabetes: No GI Disorders: Yes (bleeding ulcer) Disorders: Yes (KIDNEY STONE;) HTN: Yes Hypercholesterolemia: Yes Kidney Stones: Yes Liver Disease: No Psychiatric Problems: Yes (ANXIETY, DEPRESSION) Seizures: No Thyroid Disease: Yes (hypothyroid) - Surgical History Abdominal Surgery: No Appendectomy: No Cardiac Surgery: No Cholecystectomy: No Lung Surgery: No Neurologic Surgery: No Orthopedic Surgery: Yes (B/L hip replacement (rt 2009; left 2012)) - Immunization History Td Vaccination: Yes TDAP Vaccination: No Immunization Up to Date: Yes - Suicide/Smoking/Psychosocial Hx Smoking Status: Yes Smoking History: Unknown if ever smoked Years of Tobacco Use: 30 Have you smoked in the past 12 months: No Number of Cigarettes Smoked Daily: 10 If you are a former smoker, when did you quit?: refused booklet 07/21/14 Cigars Per Day: 0 Information on smoking cessation initiated: No 'Breaking Loose' booklet given: 06/28/16 Hx Alcohol Use: No Drug/Substance Use Hx: No Substance Use Type: Cocaine, Marijuana Hx Substance Use Treatment: Yes Review of Systems - Review of Systems Constitutional: No: Chills, Fever, Loss of Appetite HEENTM: No: Tearing, Recent change in vision, Nose Congestion Respiratory: No: Orthopnea, Shortness of Breath Cardiac (ROS): No: Edema, Irregular Heart Rate ABD/GI: No: Diarrhea, Nausea, Vomiting : No: Discharge, Frequency Musculoskeletal: Yes: Back Pain, Joint Pain. No: Joint Swelling Integumentary: No: Lesions, Lumps Neurological: No: Headache, Numbness, Paresthesia Psychiatric: Yes: Anxiety Endocrine: No: Flushing Hematologic/Lymphatic: No: Anemia, Blood Clots *Physical Exam - Vital Signs Last Vital Signs Temp Pulse Resp BP Pulse Ox 98.3 F 89 18 142/82 01/05/18 07:13 01/05/18 07:13 01/05/18 07:13 01/05/18 07:13 - Physical Exam General Appearance: Yes: Nourished, Appropriately Dressed. No: Apparent Distress HEENT: positive: EOMI, TEO, Normal Voice. negative: Normal ENT Inspection ( Left nare with some blood at the tip.) Neck: positive: Trachea midline, Normal Thyroid, Supple. negative: Tender, Rigid Respiratory/Chest: positive: Lungs Clear. negative: Chest Tender, Respiratory Distress Cardiovascular: positive: Regular Rhythm, Regular Rate Gastrointestinal/Abdominal: positive: Normal Bowel Sounds, Flat, Soft. negative : Tender Lymphatic: negative: Adenopathy, Tenderness Musculoskeletal: positive: Normal Inspection. negative: CVA Tenderness Extremity: positive: Normal Capillary Refill, Normal Inspection. negative: Normal Range of Motion, Tender Integumentary: positive: Normal Color, Dry, Warm Neurologic: positive: Fully Oriented, Alert, Normal Mood/Affect, Normal Response , Motor Strength 5/5. negative: [employer] II-XII NML intact Medical Decision Making - Medical Decision Making 62 year old female with frequent visits here to the ED for various complaints presenting with epistaxis. No active bleeding seen but slight trickle from let nostril. Epistaxis resolved after external pressure with two tongue depressors taped together. VSS. I suspect this was due to digital trauma vs. illicit substance insuflation as she has been cocaine positive many times in the past. She would now like to go home via cab. Cab service called and patient given return precautions + follow up instructions. 01/05/18 08:44 *DC/Admit/Observation/Transfer Diagnosis at time of Disposition: Epistaxis - Discharge Dispostion Disposition: HOME Condition at time of disposition: Improved Decision to Admit order: No - Referrals Referrals: Callie Landry [Primary Care Provider] - - Patient Instructions Printed Discharge Instructions: DI for Nosebleed Additional Instructions: Please do not pick your nose. Please follow up with your primary care physician. Please return to the ED if you have any new or worsening symptoms. - Post Discharge Activity
--- NOTE | 2018-01-05 08:40 | PDOC ---
Attending Attestation - Resident Resident Name: Ki Hill - ED Attending Attestation I have performed the following: I have examined & evaluated the patient, The case was reviewed & discussed with the resident, I agree w/resident's findings & plan, Exceptions are as noted - HPI HPI: 01/05/18 08:44 62-year-old phenyl history of chronic kidney disease, anemia, asthma, brain cancer, COPD, bleeding ulcer, kidney stones, hyperlipidemia, hypothyroidism, chronic back pain, hypertension presents with spontaneous left epistaxis. Patient reported a brief episode which resolved with external pressure. Denies any lightheadedness or chest pain. Reports chronic lower back pain. - Physicial Exam PE: 01/05/18 08:44 GENERAL: Awake, alert, and fully oriented, in no acute distress HEAD: No signs of trauma EYES: EOMI, sclera anicteric, conjunctiva clear ENT: Auricles normal inspection, hearing grossly normal, nares patent, Moist mucosa. Dry blood in left nostril. No active bleeding. NECK: Normal ROM, supple, NEUROLOGICAL: Cranial nerves II through XII grossly intact. Normal speech - Medical Decision Making 01/05/18 08:45 Vital Signs Temp Pulse Resp BP Pulse Ox 98.3 F 89 18 142/82 01/05/18 07:13 01/05/18 07:13 01/05/18 07:13 01/05/18 07:13 Likely anterior epistaxis now resolved. Patient has been observed for over an hour with no recurrence of symptoms. Patient is clear for discharge home.
[2018-01-05 09:17] VITALS: BP 138/74; PULSE 78; TEMP 98
== END 2018-01-05 09:26 | disposition home or self-care (01) ==
LOC: JER 07:03
DX: R04.0 Epistaxis (principal); I10 Essential (primary) hypertension; E78.00 Pure hypercholesterolemia, unspecified; F41.8 Other specified anxiety disorders; E03.9 Hypothyroidism, unspecified; F99 Mental disorder, not otherwise specified; J45.909 Unspecified asthma, uncomplicated
CPT/HCPCS: 99282-25

== ENCOUNTER 2018-01-05 18:08 | Emergency (ER) | payer OTHER ==
[2018-01-05 18:14] VITALS: BP 111/75; PULSE 93; TEMP 98; BMI 22.1
--- NOTE | 2018-01-05 18:26 | PDOC ---
History of Present Illness - General Chief Complaint: Nasal Bleeding Stated Complaint: NASAL BLEEDING Time Seen by Provider: 01/05/18 18:18 History Source: Patient Exam Limitations: No Limitations - History of Present Illness Initial Comments: 01/05/18 18:27 62 yr female states nose bleed today stopped prior to arrival. no bleeding now. Past History - Past Medical History Allergies/Adverse Reactions: Allergies Allergy/AdvReac Type Severity Reaction Status Date / Time levofloxacin [From Levaquin] Allergy Mild Itching Verified 01/05/18 18:13 Home Medications: Ambulatory Orders Methocarbamol [Robaxin -] 500 mg PO TID PRN 11/02/17 Gabapentin [Neurontin] 300 mg PO TID #42 capsule 11/13/17 Acetaminophen 325 mg PO Q6H 11/19/17 Albuterol 2.5/Ipratropium 0.5 [Duoneb -] 1 neb IH QID 11/19/17 Alprazolam [Xanax] 0.5 mg PO TID PRN 11/19/17 Heparin - 5,000 unit SQ TID 11/19/17 Melatonin 10 mg PO HS 11/19/17 Oxycodone HCl 5 mg PO QID PRN 11/19/17 Pantoprazole Sodium 40 mg PO DAILY 11/19/17 Aspirin Coated [Ecotrin -] 325 mg PO DAILY 11/25/17 Docusate Sodium [Colace -] 300 mg PO HS #30 capsule 12/12/17 Duloxetine HCl [Cymbalta -] 30 mg PO DAILY #30 capsule. 12/12/17 Magnesium Oxide [Mag-Ox -] 400 mg PO BID #6 tablet 12/12/17 Azithromycin Ophth Soln [Azasite 1% Ophth Soln -] 2 drop OP TID 5 Days #1 bottle 12/13/17 Erythromycin 0.5% Eye Ointment [Erythromycin 0.5% Eye Ointment -] 1 applic TP BID 5 Days #1 tube 12/13/17 Amlodipine Besylate [Norvasc -] 10 mg PO DAILY 12/24/17 Atorvastatin Ca [Lipitor] 10 mg PO HS 12/24/17 Donepezil HCl [Aricept] 5 mg PO HS 12/24/17 Paroxetine HCl [Paxil -] 20 mg PO DAILY 12/24/17 Varenicline Tartrate [Chantix] 1 mg PO DAILY 12/24/17 Cephalexin Monohydrate [Keflex -] 250 mg PO BID #28 capsule 12/29/17 Sodium Chloride/Aloe Vera [[place] Saline Nasal Gel [place]] 22 ml NS TID PRN #1 bottle 01/05/18 Anemia: Yes Asthma: Yes Cancer: No Cardiac Disorders: Yes CVA: No COPD: Yes CHF: No DVT: No Dementia: No Diabetes: No GI Disorders: Yes (bleeding ulcer) Disorders: Yes (KIDNEY STONE;) HTN: Yes Hypercholesterolemia: Yes Kidney Stones: Yes Liver Disease: No Psychiatric Problems: Yes (ANXIETY, DEPRESSION) Seizures: No Thyroid Disease: Yes (hypothyroid) - Surgical History Abdominal Surgery: No Appendectomy: No Cardiac Surgery: No Cholecystectomy: No Lung Surgery: No Neurologic Surgery: No Orthopedic Surgery: Yes (B/L hip replacement (rt 2009; left 2012)) - Immunization History Td Vaccination: Yes TDAP Vaccination: No Immunization Up to Date: Yes - Suicide/Smoking/Psychosocial Hx Smoking Status: Yes Smoking History: Current every day smoker Years of Tobacco Use: 30 Have you smoked in the past 12 months: No Number of Cigarettes Smoked Daily: 4 If you are a former smoker, when did you quit?: refused booklet 07/21/14 Cigars Per Day: 0 Information on smoking cessation initiated: No 'Breaking Loose' booklet given: 06/28/16 Hx Alcohol Use: No Drug/Substance Use Hx: No Substance Use Type: Cocaine, Marijuana Hx Substance Use Treatment: Yes Review of Systems - Review of Systems Able to Perform ROS?: Yes Is the patient limited [place] proficient: No HEENTM: Yes: Symptoms Reported *Physical Exam - Vital Signs Last Vital Signs Temp Pulse Resp BP Pulse Ox 98 F 93 H 18 111/75 99 01/05/18 18:11 01/05/18 18:11 01/05/18 18:11 01/05/18 18:11 01/05/18 18:11 - Physical Exam General Appearance: Yes: Nourished, Appropriately Dressed HEENT: positive: EOMI, TEO, TMs Normal, Pharynx Normal, Other (neg nasal bleeding neg dried blood , neg swelling or drainage ) Medical Decision Making - Medical Decision Making 01/08/18 15:21 cc: c/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 *DC/Admit/Observation/Transfer Diagnosis at time of Disposition: Epistaxis - Discharge Dispostion Disposition: HOME Condition at time of disposition: Improved - Prescriptions Prescriptions: Sodium Chloride/Aloe Vera [[place] Saline Nasal Gel [place]] 22 ml NS TID PRN #1 bottle PRN Reason: nasal dryness - Referrals Referrals: Forrest Rossi MD [Staff Physician] - - Patient Instructions Additional Instructions: follow with the ENT doctor for follow up call tomorrow to make appointment use the saline spray as directed DO NOT PUT ANYTHING else in your nose but the spray as needed for dry nose - Post Discharge Activity
== END 2018-01-05 18:36 | disposition home or self-care (01) ==
LOC: JERFT 18:08
DX: R04.0 Epistaxis (principal); F17.210 Nicotine dependence, cigarettes, uncomplicated; E78.00 Pure hypercholesterolemia, unspecified; I10 Essential (primary) hypertension; F41.8 Other specified anxiety disorders; J45.909 Unspecified asthma, uncomplicated; Z87.442 Personal history of urinary calculi
CPT/HCPCS: 99281-25

== ENCOUNTER 2018-01-10 11:34 | Emergency (ER) | payer OTHER ==
[2018-01-10 11:59] VITALS: BP 111/70; PULSE 89; TEMP 98.8; BMI 21.2
--- NOTE | 2018-01-10 11:59 | PDOC ---
History of Present Illness - General Chief Complaint: Back Pain Stated Complaint: PAIN Time Seen by Provider: 01/10/18 11:56 - History of Present Illness Initial Comments: 01/10/18 11:56 Ms. Matamoros is a 62 yo female w/ pmh of CKD, anemia, asthma, prior CA, COPD, nephrolithiasis, HLD, HTN, chronic pain and well known to the department who presents for evaluation of 2 day history of exacerbation of her chronic back pain. Patient reports she has had pain like this before however elected not to take anything for it at home. Patient believes she needs "strong pain medication " for treatment. The patient denies chest pain, shortness of breath, headache and dizziness. Denies fever, chills, nausea, vomit, diarrhea and constipation. Denies dysuria, frequency, urgency and hematuria. Past History - Past Medical History Allergies/Adverse Reactions: Allergies Allergy/AdvReac Type Severity Reaction Status Date / Time levofloxacin [From Levaquin] Allergy Mild Itching Verified 01/10/18 11:59 Home Medications: Ambulatory Orders Methocarbamol [Robaxin -] 500 mg PO TID PRN 11/02/17 Gabapentin [Neurontin] 300 mg PO TID #42 capsule 11/13/17 Acetaminophen 325 mg PO Q6H 11/19/17 Albuterol 2.5/Ipratropium 0.5 [Duoneb -] 1 neb IH QID 11/19/17 Alprazolam [Xanax] 0.5 mg PO TID PRN 11/19/17 Heparin - 5,000 unit SQ TID 11/19/17 Melatonin 10 mg PO HS 11/19/17 Oxycodone HCl 5 mg PO QID PRN 11/19/17 Pantoprazole Sodium 40 mg PO DAILY 11/19/17 Aspirin Coated [Ecotrin -] 325 mg PO DAILY 11/25/17 Docusate Sodium [Colace -] 300 mg PO HS #30 capsule 12/12/17 Duloxetine HCl [Cymbalta -] 30 mg PO DAILY #30 capsule. 12/12/17 Magnesium Oxide [Mag-Ox -] 400 mg PO BID #6 tablet 12/12/17 Azithromycin Ophth Soln [Azasite 1% Ophth Soln -] 2 drop OP TID 5 Days #1 bottle 12/13/17 Erythromycin 0.5% Eye Ointment [Erythromycin 0.5% Eye Ointment -] 1 applic TP BID 5 Days #1 tube 12/13/17 Amlodipine Besylate [Norvasc -] 10 mg PO DAILY 12/24/17 Atorvastatin Ca [Lipitor] 10 mg PO HS 12/24/17 Donepezil HCl [Aricept] 5 mg PO HS 12/24/17 Paroxetine HCl [Paxil -] 20 mg PO DAILY 12/24/17 Varenicline Tartrate [Chantix] 1 mg PO DAILY 12/24/17 Cephalexin Monohydrate [Keflex -] 250 mg PO BID #28 capsule 12/29/17 Sodium Chloride/Aloe Vera [[place] Saline Nasal Gel [place]] 22 ml NS TID PRN #1 bottle 01/05/18 Anemia: Yes Asthma: Yes Cancer: No Cardiac Disorders: Yes CVA: No COPD: Yes CHF: No DVT: No Dementia: No Diabetes: No GI Disorders: Yes (bleeding ulcer) Disorders: Yes (KIDNEY STONE;) HTN: Yes Hypercholesterolemia: Yes Kidney Stones: Yes Liver Disease: No Psychiatric Problems: Yes (ANXIETY, DEPRESSION) Seizures: No Thyroid Disease: Yes (hypothyroid) - Surgical History Abdominal Surgery: No Appendectomy: No Cardiac Surgery: No Cholecystectomy: No Lung Surgery: No Neurologic Surgery: No Orthopedic Surgery: Yes (B/L hip replacement (rt 2009; left 2012)) - Immunization History Td Vaccination: Yes TDAP Vaccination: No Immunization Up to Date: Yes - Suicide/Smoking/Psychosocial Hx Smoking Status: Yes Smoking History: Current every day smoker Years of Tobacco Use: 30 Have you smoked in the past 12 months: No Number of Cigarettes Smoked Daily: 4 If you are a former smoker, when did you quit?: refused booklet 07/21/14 Cigars Per Day: 0 'Breaking Loose' booklet given: 06/28/16 Hx Alcohol Use: No Drug/Substance Use Hx: No Substance Use Type: Cocaine, Marijuana Hx Substance Use Treatment: Yes Review of Systems - Review of Systems Comments:: 01/10/18 11:58 GENERAL/CONSTITUTIONAL: No fever or chills. No weakness. HEAD, EYES, EARS, NOSE AND THROAT: No change in vision. No ear pain or discharge. No sore throat. CARDIOVASCULAR: No chest pain or shortness of breath RESPIRATORY: No cough, wheezing, or hemoptysis. GASTROINTESTINAL: No nausea, vomiting, diarrhea or constipation. GENITOURINARY: No dysuria, frequency, or change in urination. MUSCULOSKELETAL: +Diffuse low back pain, chronic onset, over 2 days SKIN: No rash NEUROLOGIC: No headache, vertigo, loss of consciousness, or change in strength/ sensation. ENDOCRINE: No increased thirst. No abnormal weight change HEMATOLOGIC/LYMPHATIC: No anemia, easy bleeding, or history of blood clots. ALLERGIC/IMMUNOLOGIC: No hives or skin allergy. *Physical Exam - Physical Exam Comments: 01/10/18 11:58 GENERAL: Awake, alert, and fully oriented, in no acute distress HEAD: No signs of trauma, normocephalic, atraumatic EYES: PERRLA, EOMI, sclera anicteric, conjunctiva clear ENT: Auricles normal inspection, hearing grossly normal, nares patent, oropharynx clear without exudates. Moist mucosa NECK: Normal ROM, supple, no lymphadenopathy, JVD, or masses LUNGS: No distress, speaks full sentences, clear to auscultation bilaterally HEART: Regular rate and rhythm, normal S1 and S2, no murmurs, rubs or gallops, peripheral pulses normal and equal bilaterally. ABDOMEN: +Patient has distractable TTP in all wagner. Soft, normoactive bowel sounds. No guarding, no rebound. No masses EXTREMITIES: +Distractable low back TTP in changing locations accross lower back. Normal inspection, Normal range of motion, no edema. No clubbing or cyanosis. NEUROLOGICAL: Cranial nerves II through XII grossly intact. Normal speech, normal gait, no focal sensorimotor deficits SKIN: Warm, Dry, normal turgor, no rashes or lesions noted. Medical Decision Making - Medical Decision Making 01/10/18 12:22 Ms. Matamoros is a 62 yo female w/ pmh as described who presents for exacerbation of chronic pain. Patient resting in bed comfortably at this time w/ unlabored breathing. Patient alert and oriented and no concern for acute process at this time. Toradol given for relief from pain and information for painter mirror given. Discharging patient to home. *DC/Admit/Observation/Transfer Diagnosis at time of Disposition: Acute exacerbation of chronic low back pain - Discharge Dispostion Disposition: HOME - Referrals Referrals: Som James MD [Staff Physician] - - Patient Instructions Printed Discharge Instructions: DI for Chronic Pain -- Adult Additional Instructions: You were evaluated today in the ER and found to have exacerbation of your chronic pain. We gave you an anti-inflammatory for assistance. We have also provided follow-up information with a painter mirror for further evaluation. Please follow-up on Saturday next week. You may take 975mg of tylenol orally every 8 hours for further pain control. Return to ER if any fevers, chills, increase in pain, or other concerning symptoms. - Post Discharge Activity
[2018-01-10] MEDS: KETOROLAC TROMETHAMINE 15 MG/ML VIAL IM ONE ×2 (12:15→12:25)
[2018-01-10] MEDS ORDERED: KETOROLAC TROMETHAMINE 15 MG/ML VIAL ONE (12:27)
--- NOTE | 2018-01-10 12:34 | PDOC ---
Attending Attestation - Resident Resident Name: Hal Leung - ED Attending Attestation I have performed the following: I have examined & evaluated the patient, The case was reviewed & discussed with the resident, I agree w/resident's findings & plan, Exceptions are as noted - HPI HPI: 01/10/18 12:30 62-year-old female with history of chronic kidney disease, anemia, asthma, COPD , nephrolithiasis, hypertension, hyperlipidemia, chronic back pain presents with acute on chronic back pain. The patient reports that she's been having this chronic lower back pain that is not new but occasionally flares up. Patient requesting a pain medication for the symptoms. Denies other symptoms. - Physicial Exam PE: 01/10/18 12:31 GENERAL: Awake, alert, and fully oriented, in no acute distress HEAD: No signs of trauma EYES: PERRLA, EOMI, sclera anicteric, conjunctiva clear ENT: Auricles normal inspection, hearing grossly normal, nares patent, Moist mucosa NECK: Normal ROM, supple EXTREMITIES: Normal range of motion, no edema. No clubbing or cyanosis. No cords, erythema, or tenderness NEUROLOGICAL: Cranial nerves II through XII grossly intact. Normal speech, SKIN: Warm, Dry, normal turgor, no rashes or lesions noted. - Medical Decision Making 01/10/18 12:33 Vital Signs Temp Pulse Resp BP Pulse Ox 98.8 F 89 16 111/70 100 01/10/18 11:34 01/10/18 11:34 01/10/18 11:34 01/10/18 11:34 01/10/18 12:00 This is acute on chronic back pain. After discussing with the patient, we believe that the patient would benefit from a painting technician. At this time, we have urged that narcotics for chronic back pain may be in the long run harmful to the patient. The patient verbalizes understands and agrees with plan for outpatient follow-up. We'll give her referral for painting technician.
== END 2018-01-10 14:00 | disposition home or self-care (01) ==
LOC: JER 11:34
PROC: 3E0233Z Introduction of Anti-inflammatory into Muscle, Percutaneous Approach (ICD-10-PCS; principal; 2018-01-10)
DX: M54.5 Low back pain (principal); F17.210 Nicotine dependence, cigarettes, uncomplicated; E03.9 Hypothyroidism, unspecified; F41.8 Other specified anxiety disorders; I10 Essential (primary) hypertension; E78.00 Pure hypercholesterolemia, unspecified
CPT/HCPCS: 96372; 99282-25

== ENCOUNTER 2018-01-12 06:12 | Emergency (ER) | payer OTHER ==
[2018-01-12 06:16] VITALS: BMI 22.8
--- NOTE | 2018-01-12 07:27 | PDOC ---
History of Present Illness - General Chief Complaint: Chronic pain Stated Complaint: LOWER BACK PAIN Time Seen by Provider: 01/12/18 07:15 History Source: Patient Exam Limitations: No Limitations - History of Present Illness Initial Comments: 01/12/18 07:16 This is a 62 YOF with h/o chronic back pain (s/p low back surgery "they placed a piece of cement"), CKD, anemia, asthma, prior CA, COPD, nephrolithiasis, HLD, HTN, who p/w exacerbation of her chronic low back pain radiating down both of her thighs in the front, unchanged from the character of her normal chronic back pain exacerbations. She has been seen in the department several times this month for the same (last visit was 01/10/18). She states she has not had an appointment with her back doctor for some time, but cannot remember exactly how long ago. She denies f/c/n/v/d/c, new n/t/w, urinary retention or incontinence, difficulty balancing or walking (other than secondary to pain), headache, neck pain, chest pain, SOB, abdominal pain, dysuria, hematuria, cough, sore throat, or other symptoms. She states she has not had her prescription for Percocet in months. Past History - Past Medical History Allergies/Adverse Reactions: Allergies Allergy/AdvReac Type Severity Reaction Status Date / Time levofloxacin [From Levaquin] Allergy Mild Itching Verified 01/12/18 06:47 Home Medications: Ambulatory Orders Albuterol 2.5/Ipratropium 0.5 [Duoneb -] 1 neb IH QID 11/19/17 Acetaminophen [Tylenol -] 1,000 mg PO Q6H PRN #100 tablet 01/12/18 Cephalexin [Keflex] 500 mg PO BID #14 capsule 01/12/18 Cephalexin [Keflex] 500 mg PO QID #40 capsule 01/12/18 Anemia: Yes Asthma: Yes Cancer: No Cardiac Disorders: Yes CVA: No COPD: Yes CHF: No DVT: No Dementia: No Diabetes: No GI Disorders: Yes (bleeding ulcer) Disorders: Yes (KIDNEY STONE;) HTN: Yes Hypercholesterolemia: Yes Kidney Stones: Yes Liver Disease: No Psychiatric Problems: Yes (ANXIETY, DEPRESSION) Seizures: No Thyroid Disease: Yes (hypothyroid) - Surgical History Abdominal Surgery: No Appendectomy: No Cardiac Surgery: No Cholecystectomy: No Lung Surgery: No Neurologic Surgery: No Orthopedic Surgery: Yes (B/L hip replacement (rt 2009; left 2012)) - Immunization History Td Vaccination: Yes TDAP Vaccination: No Immunization Up to Date: Yes - Suicide/Smoking/Psychosocial Hx Smoking Status: Yes Smoking History: Never smoked Years of Tobacco Use: 30 Have you smoked in the past 12 months: No Number of Cigarettes Smoked Daily: 4 If you are a former smoker, when did you quit?: refused booklet 07/21/14 Cigars Per Day: 0 Information on smoking cessation initiated: No 'Breaking Loose' booklet given: 06/28/16 Hx Alcohol Use: No Drug/Substance Use Hx: No Substance Use Type: None Hx Substance Use Treatment: Yes Review of Systems - Review of Systems Able to Perform ROS?: Yes Constitutional: No: Chills, Fever, Unexplained wgt Loss HEENTM: No: Nose Congestion, Throat Pain Respiratory: No: Cough, Shortness of Breath Cardiac (ROS): No: Chest Pain, Palpitations ABD/GI: No: Constipated, Diarrhea, Nausea, Vomiting : No: Burning, Dysuria Musculoskeletal: Yes: Back Pain. No: Neck Pain Integumentary: No: Bruising, Rash Neurological: No: Headache, Numbness, Tingling, Weakness, Dizziness Endocrine: No: Unexplained Weight Gain, Unexplained Weight Loss *Physical Exam - Vital Signs Last Vital Signs Temp Pulse Resp BP Pulse Ox 98.9 F 80 20 135/68 99 01/12/18 06:13 01/12/18 06:13 01/12/18 06:13 01/12/18 06:13 01/12/18 06:13 01/12/18 07:36 GENERAL: moderate distress and appears uncomfortable, sitting on edge of bed and crying, states in pain, nontoxic and well-appearing, nourished, A/Ox4, speaking in full sentences, answers questions appropriately HEENT: PERRLA, EOMI, moist mucous membranes, no posterior pharyngeal erythema, no tonsillar swelling or exudates, no cervical lymphadenopathy NECK: No midline ttp, no spinal stepoff or deformity, full ROM, supple CARDIOVASCULAR: Regular rate and rhythm, normal S1S2, MGR, radial and DP pulses 2+ and symmetric, capillary refill <2 seconds, extremities warm and well- perfused LUNGS/RESPIRATORY: No respiratory distress, normal and symmetric chest movements during respirations, lungs CTA bilaterally, equal breath sounds, no cyanosis, no nail clubbing GI/ABDOMEN: Normal symmetric appearance, normoactive bowel sounds, soft, no tenderness to palpation, no midline pulsatile masses, no palpated organomegaly BACK: Mild ttp diffusely along lumbar spine midline and paraspinous muscles without lumbar stepoff or deformity, no midline ttp or stepoff or deformity of thoracic spine EXTREMITIES: distal pulses 2+, warm and well-perfused, no LE edema SKIN: Warm and dry, no pallor, no jaundice, no bruising, no rash, no skin breakdown, no cuts, no lesions NEUROLOGICAL: GCS 15, CN II-XII grossly intact, ambulating with normal gait, moving all extremities, 5/5 strength proximally and distally including BLE, no facial droop, no decreased sensation Medical Decision Making - Medical Decision Making 01/12/18 07:31 Pt with h/o with chronic back pain p/w acute exacerbation of same chronic back pain. No new red flag symptoms (see HPI). Initial Vital Signs Temp Pulse Resp BP Pulse Ox 98.9 F 80 20 135/68 99 01/12/18 06:13 01/12/18 06:13 01/12/18 06:13 01/12/18 06:13 01/12/18 06:13 Exam: As noted in Physical Exam section. DDX IBNLT: DDD, DJD, osteophyte, compression fxr, other vertebral or spinous process fxr; much LL malignancy (i.e. multiple myeloma), spinal epidural abscess , epidural hematoma, meningitis, or other more concerning etiology. W/U ordered: Initially XR is ordered, but I subsequently review records more thoroughly and the patient does have recent imaging. TX ordered: Tylenol 975 mg as the patient has CKD. The patient has been given Toradol in the past (and recently). At times she requires admission for intractable pain and is given stronger medications on admissions. Will start with Tylenol and progress from there if needed. Patient also requesting breakfast tray and given one. 15 mg Toradol ordered as patient has received this before here in the ED. Also ordered is #1 Percocet. Ordered is UA to r/o UTI. 01/12/18 09:34 Reassessment: Patient standing in exam room in no distress after medications. Laboratory Tests 01/12/18 09:14 Urine Color Straw Urine Appearance Slcloudy Urine pH 6.0 Ur Specific Dawn 1.009 Urine Protein 3+ H Urine Glucose (UA) 2+ H Urine Ketones Negative Urine Blood Negative Urine Nitrite Negative Urine Bilirubin Negative Urine Urobilinogen Negative Ur Leukocyte Esterase 2+ H Urine WBC (Auto) 67 Urine RBC (Auto) 1 Ur Epithelial Cells Moderate Urine Bacteria Few Patient with UTI; no prior UA micro reports in our records. Will cover with empiric abx. Order placed for Keflrx and E-Rx is sent to pharmacy. Vital Signs Temperature 98.1 F 01/12/18 09:47 Pulse Rate 91 H 01/12/18 09:47 Respiratory Rate 17 01/12/18 09:47 Blood Pressure 156/86 01/12/18 09:47 O2 Sat by Pulse Oximetry (%) 98 01/12/18 09:47 The Pt has gotten significant relief of symptoms while in the ED. They are appropriate for discharge with close outpatient follow up. The Pt is comfortable with this plan and will follow up with their primary care provider in 1-3 days. They are counseled on importance of proactive pain management and neurosurgery follow up. Referral info given for neurosurgeon rehabilitation team lead. Specific return precautions are discussed and they will come back to the ER if necessary. *DC/Admit/Observation/Transfer Diagnosis at time of Disposition: Chronic low back pain Qualifiers: Back pain laterality: unspecified Sciatica presence: with sciatica Sciatica laterality: bilateral sciatica Qualified Code(s): M54.41 - Lumbago with sciatica , right side UTI (urinary tract infection) Qualifiers: Urinary tract infection type: acute cystitis Hematuria presence: without hematuria Qualified Code(s): N30.00 - Acute cystitis without hematuria - Discharge Dispostion Disposition: HOME Condition at time of disposition: Stable Decision to Admit order: No - Prescriptions Prescriptions: Acetaminophen [Tylenol -] 1,000 mg PO Q6H PRN #100 tablet PRN Reason: Pain Cephalexin [Keflex] 500 mg PO QID #40 capsule Cephalexin [Keflex] 500 mg PO BID #14 capsule - Referrals Referrals: Roverto Olea MD [Staff Physician] - - Patient Instructions Printed Discharge Instructions: Managing Chronic Low Back Pain Additional Instructions: YOU WERE SEEN IN THE ER FOR AN ACUTE FLARE-UP OF YOUR CHRONIC BACK PAIN. WE GAVE YOU AN INJECTION OF TORADOL WHICH HELPED WITH YOUR PAIN. WE ARE GIVING YOU REFERRAL INFORMATION FOR ONE OF OUR NEUROSURGEONS; PLEASE FOLLOW UP WITH THEM OR WITH YOUR OWN NEUROSURGEON. PLEASE ALSO FOLLOW UP WITH YOUR PRIMARY CARE PROVIDER IN 1-3 DAYS, AND DISCUSS CHANGING YOUR PAIN MANAGEMENT REGIMEN SO THAT YOU CAN GET ON TOP OF YOUR CHRONIC BACK PAIN BEFORE GETTING TO THE POINT WHERE YOU NEED TO COME TO THE ER. CALL THEIR CLINIC SOON POSSIBLE, TELL THEM YOU WERE SEEN IN THE ER FOR BACK PAIN, AND TELL THEM YOU NEED AN APPOINTMENT. IF YOU HAVE ANY NEW OR WORSENING SYMPTOMS PLEASE COME BACK TO THE ER AT ANY TIME (24 HOURS A DAY), ESPECIALLY FOR FEVER, NEW NUMBNESS, NEW TINGLING NEW WEAKNESS, NEW URINARY OR BOWEL INCONTINENCE OR RETENTION, OR OTHER NEW SYMPTOMS. IF YOU ARE HAVING SEVERE OR LIFE THREATENING SYMPTOMS, OR SYMPTOMS THAT MAKE IT UNSAFE TO DRIVE OR HAVE SOMEONE DRIVE YOU, PLEASE CALL 911. YOU ALSO HAVE A URINARY TRACT INFECTION AND YOU NEED TO TAKE ANTIOBIOTICS. PLEASE SWITCH BOX INSTALLER THE PRESCRIPTIONS WE ARE SENDING TO YOUR PHARMACY AND TAKE THE ENTIRE COURSE OF ANTIBIOTIC PRESCRIBED. TAKE THE TYLENOL YOU NEED IT FOR PAIN, FOLLOWING THE INSTRUCTIONS ON THE BOTTLE. Print Language: UKRAINIAN - Post Discharge Activity
[2018-01-12] MEDS ORDERED: ACETAMINOPHEN 325 MG TABLET (FP) ONE (07:38)
[2018-01-12] MEDS: ACETAMINOPHEN 500 MG TABLET (FP) PO ONE ×2 (07:38→07:52)
[2018-01-12] MEDS ORDERED: KETOROLAC TROMETHAMINE 15 MG/ML VIAL IM ONE (08:25)
[2018-01-12] MEDS ORDERED: KETOROLAC TROMETHAMINE 15 MG/ML VIAL ONE (08:27)
[2018-01-12 09:48] VITALS: BP 156/86; PULSE 91; TEMP 98.1
[2018-01-12 09:49] LABS: URINE APPEARANCE SLCLOUDY; URINE BILIRUBIN NEGATIVE (<2.0 mg/dL); URINE COLOR STRAW; URINE GLUCOSE (UA) 2+ (NEGATIVE); URINE KETONE NEGATIVE (NEGATIVE); URINE NITRITE NEGATIVE (NEGATIVE); URINE UROBILINOGEN NEGATIVE mg/dL (0.2-1.0)
[2018-01-12 09:51] LABS: URINE LEUK ESTERASE 2+ (NEGATIVE); URINE PROTEIN 3+ (NEGATIVE)
[2018-01-12 09:53] LABS: EPI CELLS MODERATE /HPF (FEW); URINE BACTERIA FEW /hpf (NONE SEEN)
[2018-01-12] MEDS ORDERED: CEPHALEXIN MONOHYDRATE 500 MG CAPSULE (UD) PO ONE (10:07)
[2018-01-12] MEDS ORDERED: CEPHALEXIN MONOHYDRATE 500 MG CAPSULE (UD) ONE (10:09)
--- NOTE | 2018-01-12 10:34 | PDOC ---
Attending Attestation - Resident Resident Name: Shy Rodriges - ED Attending Attestation I have performed the following: I have examined & evaluated the patient, The case was reviewed & discussed with the resident, I agree w/resident's findings & plan, Exceptions are as noted - HPI HPI: 01/12/18 10:24 62 yo F with h/o chronic compression fx, chronic low back pain ckd htn, hld, here with c/o worsening pain. pt has had recent mri of lumbar spine 11/2017. no f/c no urnary complaints. pain is worse with bending and walking. has seen pain management in the past, but not recently. no f/c no new numbness or tingling. - Physicial Exam PE: 01/12/18 10:34 awake alert lungs clear bilaterally heart rrr no mrg abd soft nt nd. no cva tenderess. lower paraspinal spasm and pain. lower ext strenth 5/5 bilaterally sensatio intact throughout. skin warm and dry nuero alert oriented x 3. - Medical Decision Making 01/12/18 10:35 plan likley chronic pain. no new nuero compromise. plan pain control ua r/o uti , reassess. pt given small dose of toradol IM ( per request only 15 h/o ckd), percocet. ua positive for uti. will dc on abx keflex. told to follow up with pain doctor
== END 2018-01-12 10:27 | disposition home or self-care (01) ==
LOC: JER 06:12
PROC: 3E0233Z Introduction of Anti-inflammatory into Muscle, Percutaneous Approach (ICD-10-PCS; principal; 2018-01-12)
DX: M54.41 Lumbago with sciatica, right side (principal); M54.42 Lumbago with sciatica, left side; N30.00 Acute cystitis without hematuria; I12.9 Hypertensive chronic kidney disease with stage 1 through stage 4 chronic kidney disease, or unspecified chronic kidney disease; N18.9 Chronic kidney disease, unspecified; J44.9 Chronic obstructive pulmonary disease, unspecified; J45.909 Unspecified asthma, uncomplicated; E78.5 Hyperlipidemia, unspecified; D64.9 Anemia, unspecified; E03.9 Hypothyroidism, unspecified; F41.9 Anxiety disorder, unspecified; Z96.643 Presence of artificial hip joint, bilateral
CPT/HCPCS: 72100-TC-FY; 81003; 81015; 96372; 99282-25

== ENCOUNTER 2018-01-14 14:53 | Emergency (ER) | payer OTHER ==
[2018-01-14 15:27] VITALS: BMI 23.8
--- NOTE | 2018-01-14 16:03 | PDOC ---
History of Present Illness - General History Source: Patient, Old Records Exam Limitations: No Limitations - History of Present Illness Initial Comments: 01/14/18 16:26 Patient is a 62 year old female with a significant past medical history of chronic back pain (s/p low back surgery "they placed a piece of cement"), CKD, anemia, asthma, prior CA, COPD, nephrolithiasis, HLD, HTN, who presents to the ED with complaints of left hip pain, s/p fall that occured yesterday afternoon. Patient reports walking yesterday when she tripped and fell, landing on her left side causing immediate pain to her left hip. She reports being able to get and walk shortly after incident with increased pain. Patient reports being able to bear weight to left leg but states pain gradually increased in intensity over time, prompting her to come into the ED for further evaluation. She reports experiencing associated symptoms of increased lower back pain and left ankle pain. Denies chest pain, Sob. Denies nausea,vomiting. Denies contact with sick individuals, out of state travelling. Denies loss of consciousness, head trauma. Denies any other symptoms. Allergies: Levofloxacin Social history: No alcohol. Current smoker. No illicit drugs. Surgical history: B/L hip replacem <Willam Schmidt - Last Filed: 01/14/18 16:26> <Arnav Hand - Last Filed: 01/14/18 16:48> - General Chief Complaint: Pain, Acute Stated Complaint: PAIN IN LEG Time Seen by Provider: 01/14/18 14:59 Past History <Willam Schmidt - Last Filed: 01/14/18 16:26> - Past Medical History Anemia: Yes Asthma: Yes Cancer: No Cardiac Disorders: Yes CVA: No COPD: Yes CHF: No DVT: No Dementia: No Diabetes: No GI Disorders: Yes (bleeding ulcer) Disorders: Yes (KIDNEY STONE;) HTN: Yes Hypercholesterolemia: Yes Kidney Stones: Yes Liver Disease: No Psychiatric Problems: Yes (ANXIETY, DEPRESSION) Seizures: No Thyroid Disease: Yes (hypothyroid) - Surgical History Abdominal Surgery: No Appendectomy: No Cardiac Surgery: No Cholecystectomy: No Lung Surgery: No Neurologic Surgery: No Orthopedic Surgery: Yes (B/L hip replacement (rt 2009; left 2012)) - Immunization History Td Vaccination: Yes TDAP Vaccination: No Immunization Up to Date: Yes - Suicide/Smoking/Psychosocial Hx Smoking Status: Yes Smoking History: Never smoked Years of Tobacco Use: 30 Have you smoked in the past 12 months: No Number of Cigarettes Smoked Daily: 4 If you are a former smoker, when did you quit?: refused booklet 07/21/14 Cigars Per Day: 0 Information on smoking cessation initiated: No 'Breaking Loose' booklet given: 06/28/16 Hx Alcohol Use: No Drug/Substance Use Hx: Yes Substance Use Type: Cocaine, Opiates Hx Substance Use Treatment: Yes <Arnav Hand - Last Filed: 01/14/18 16:48> - Past Medical History Allergies/Adverse Reactions: Allergies Allergy/AdvReac Type Severity Reaction Status Date / Time levofloxacin [From Levaquin] Allergy Mild Itching Verified 01/12/18 06:47 Home Medications: Ambulatory Orders Albuterol 2.5/Ipratropium 0.5 [Duoneb -] 1 neb IH QID 11/19/17 Acetaminophen [Tylenol -] 1,000 mg PO Q6H PRN #100 tablet 01/12/18 Cephalexin [Keflex] 500 mg PO QID #40 capsule 01/12/18 Review of Systems - Review of Systems Able to Perform ROS?: Yes <Willam Schmidt - Last Filed: 01/14/18 16:26> - Review of Systems Constitutional: No: Chills, Fever Respiratory: No: Shortness of Breath Cardiac (ROS): No: Chest Pain ABD/GI: No: Vomiting Musculoskeletal: Yes: See HPI Neurological: No: Headache All Other Systems: Reviewed and Negative <Arnav Hand - Last Filed: 01/14/18 16:48> *Physical Exam - Vital Signs Last Vital Signs Temp Pulse Resp BP Pulse Ox 97.8 F 76 20 128/67 100 01/14/18 14:57 01/14/18 14:57 01/14/18 14:57 01/14/18 14:57 01/14/18 14:57 - Physical Exam Comments: 01/14/18 16:26 GENERAL: Patient is alert and in no acute distress. Speech is clear and appropriate. HEAD: Atraumatic and nontender. HEENT: Pupils are equal round and reactive to light, extraocular movements are intact. The tympanic membranes are clear, no hemotympanum. No facial deformity/ tenderness, no septal hematoma. The oropharynx is clear. NECK: The trachea is midline, there is no stridor. There is no midline cervical spine tenderness, full range of motion of neck. CHEST: Nontender, no ecchymosis or abrasions. HEART: S1-S2, regular rate and rhythm. No murmurs. LUNGS: Clear to auscultation bilaterally. Symmetric chest rise. ABDOMEN: Soft/nontender/nondistended. Bowel sounds are normal. There is no abdominal or flank ecchymosis. BACK/PELVIS: There is no midline spine tenderness or step-off. Pelvis is stable and nontender. EXTREMITIES: +Tender to sensation on left hip and femur. +Full ROM over left knee and ankle with out deformity. +Healed incision scar on left hip. No soft tissue swelling or bruising. No obvious deformities. There is no extremity deformity or joint swelling. No focal deformity in the remaining joints or extremities. Throughout. 2+ distal pulses throughout. NEURO: Alert and oriented x3. Cranial nerves II through XII are intact. 5 out of 5 motor strength x4 extremities. Ebjsik-thrb-qgyfcw is intact. No pronator drift. Gait is stable. SKIN: No abrasions/hematomas/lacerations. PSYCH: Affect is appropriate. <Willam Schmidt - Last Filed: 01/14/18 16:26> - Vital Signs Last Vital Signs Temp Pulse Resp BP Pulse Ox 97.8 F 76 20 128/67 100 01/14/18 14:57 01/14/18 14:57 01/14/18 14:57 01/14/18 14:57 01/14/18 14:57 <Arnav Hand - Last Filed: 01/14/18 16:48> ED Treatment Course - Medications Given in the ED: ED Medications Discontinued Medications Generic Name Dose Route Start Last Admin Trade Name Freq PRN Reason Stop Dose Admin Oxycodone/Acetaminophen 1 combo 01/14/18 15:57 01/14/18 16:05 Percocet 5/325 - PO 01/14/18 15:58 1 combo ONCE ONE Administration <Willam Schmidt - Last Filed: 01/14/18 16:26> - RADIOLOGY Radiology Studies Ordered: Category Date Time Status FEMUR-LEFT [RAD] Stat Radiology 01/14/18 15:57 Ordered HIP & PELVIS-LEFT [RAD] Stat Radiology 01/14/18 15:57 Ordered <Arnav Hand - Last Filed: 01/14/18 16:48> Medical Decision Making - Medical Decision Making 01/14/18 16:03 62-year-old female with multiple medical problems including chronic pain syndrome/back pain well known to this institution and department last seen here for her chronic complaints on 01/12 presents now with new left hip/thigh pain status post mechanical fall yesterday. No head injury or loss of consciousness, no lightheadedness or syncope, has been able to bear weight on her left leg since the fall but presents for pain control. Vitals are normal Alert lying in stretcher complaining of left leg pain No obvious deformity or bruising, tenderness to palpation along the left pelvis/ buttock and left hip/thigh. Neurovascular intact distally, full range of motion at all joints with full strength but limited by pain, 62-year-old female with chronic back pain/lumbar radiculopathy presents with new left hip/thigh pain status post fall yesterday. Neurovascularly intact, rule out fracture. Left hip/pelvis/femur x-ray Pain control Reassess and disposition accordingly 01/14/18 16:47 on my prelim review of the L hip/femur and pelvis xray, no clear fx or dislocation. Pt received percocet but still unable to range L hip or weight bear 2/2 pain. additional percocet, check CT L hip, and reassess. Pt signout out to oncoming ED physician to f/u studies, reassess, and dispo accordingly. <Arnav Hand - Last Filed: 01/14/18 16:48> *DC/Admit/Observation/Transfer - Attestations Scribe Attestion: 01/14/18 16:27 Documentation prepared by Willam Schmidt, acting as medical billing and coding specialist for Arnav Hand MD. <Willam Schmidt - Last Filed: 01/14/18 16:26> <Arnav Hand - Last Filed: 01/14/18 16:48> Diagnosis at time of Disposition: Hip injury Qualifiers: Encounter type: initial encounter Laterality: left Qualified Code(s): S79.912A - Unspecified injury of left hip, initial encounter - Referrals Referrals: Syl Gonzalez MD [Primary Care Provider] - - Patient Instructions - Post Discharge Activity
--- NOTE | 2018-01-14 17:32 | PDOC ---
*Physical Exam - Vital Signs Last Vital Signs Temp Pulse Resp BP Pulse Ox 97.8 F 76 20 128/67 100 01/14/18 14:57 01/14/18 14:57 01/14/18 14:57 01/14/18 14:57 01/14/18 14:57 ED Treatment Course - Medications Given in the ED: ED Medications Discontinued Medications Generic Name Dose Route Start Last Admin Trade Name Freq PRN Reason Stop Dose Admin Oxycodone/Acetaminophen 1 combo 01/14/18 15:57 01/14/18 16:05 Percocet 5/325 - PO 01/14/18 15:58 1 combo ONCE ONE Administration Oxycodone/Acetaminophen 1 combo 01/14/18 16:46 01/14/18 16:55 Percocet 5/325 - PO 01/14/18 16:47 1 combo ONCE ONE Administration Medical Decision Making - Medical Decision Making 01/14/18 17:[address] White to follow the results of her ct scan of her hip 01/14/18 21:18 Patient had a CAT scan of the lower extremity and hip joint in her left leg. Status post bilateral hip replacement is beam hardening artifacts significantly limiting evaluation of the surrounding bone, mainly at the level of the hip joints acetabulum. No gross displaced fractures identified *DC/Admit/Observation/Transfer Diagnosis at time of Disposition: Hip injury Qualifiers: Encounter type: initial encounter Laterality: left Qualified Code(s): S79.912A - Unspecified injury of left hip, initial encounter - Discharge Dispostion Disposition: HOME Condition at time of disposition: Stable - Referrals Referrals: Syl Gonzalez MD [Primary Care Provider] - - Patient Instructions Printed Discharge Instructions: DI for Hip Pain Additional Instructions: please followup with your regular doctor - Post Discharge Activity
[2018-01-14 19:40] VITALS: TEMP 98
[2018-01-14 21:34] VITALS: BP 132/76; PULSE 82
== END 2018-01-14 21:50 | disposition home or self-care (01) ==
LOC: JER 14:53
DX: S79.812A Other specified injuries of left hip, initial encounter (principal); W01.0XXA Fall on same level from slipping, tripping and stumbling without subsequent striking against object, initial encounter; Y93.89 Activity, other specified; Y92.89 Other specified places as the place of occurrence of the external cause; Y99.8 Other external cause status; M54.5 Low back pain; G89.29 Other chronic pain; D64.9 Anemia, unspecified; I12.9 Hypertensive chronic kidney disease with stage 1 through stage 4 chronic kidney disease, or unspecified chronic kidney disease; N18.9 Chronic kidney disease, unspecified; J45.909 Unspecified asthma, uncomplicated; J44.9 Chronic obstructive pulmonary disease, unspecified; E78.00 Pure hypercholesterolemia, unspecified; E03.9 Hypothyroidism, unspecified; F41.8 Other specified anxiety disorders
CPT/HCPCS: 73523-TC-FY; 73552-TC-LT-FY; 73700-TC-RT; 99282-25

== ENCOUNTER 2018-01-15 10:15 | Emergency (ER) | payer OTHER ==
[2018-01-15 10:55] VITALS: BP 136/76; PULSE 83; TEMP 98.5; BMI 23.8
--- NOTE | 2018-01-15 11:18 | PDOC ---
History of Present Illness - General Chief Complaint: Back Pain Stated Complaint: BACK PAIN Time Seen by Provider: 01/15/18 11:16 History Source: Patient Exam Limitations: No Limitations - History of Present Illness Initial Comments: 01/15/18 11:34 Patient return to this emergency Department, well-known to this ER for multiple visits for same complaint of low back pain. Many years ago had a fall down stairs and suffered a Back injury including compression fractures. Has attended pain management and has used multiple medications for relief. States does not remember who her pain management doctor is, does not remember the medication she uses, states has nothing at home to help her. Lives with son, and has home health attendant who helps with her ADLs 5 hours a day. Patient denies fever, denies any changes in exercise or trauma, denies any problems with bowel or bladder. States is same pain without any worsened symptoms or neurologic deficits. Occurred: reports: just prior to arrival, this morning Severity: reports: mild Pain Location: reports: back Method of Injury: Yes: unknown (chronic ) Modifying Factors: improves with: None Loss of Consciousness: no loss of consciousness Associated Symptoms (Fall): denies symptoms Past History - Travel Traveled outside of the country in the last 30 days: No Close contact w/someone who was outside of country & ill: No - Past Medical History Allergies/Adverse Reactions: Allergies Allergy/AdvReac Type Severity Reaction Status Date / Time levofloxacin [From Levaquin] Allergy Mild Itching Verified 01/15/18 10:53 Home Medications: Ambulatory Orders Albuterol 2.5/Ipratropium 0.5 [Duoneb -] 1 neb IH QID 11/19/17 Acetaminophen [Tylenol -] 1,000 mg PO Q6H PRN #100 tablet 01/12/18 Cephalexin [Keflex] 500 mg PO QID #40 capsule 01/12/18 Anemia: Yes Asthma: Yes Cancer: No Cardiac Disorders: Yes CVA: No COPD: Yes CHF: No DVT: No Dementia: No Diabetes: No GI Disorders: Yes (bleeding ulcer) Disorders: Yes (KIDNEY STONE;) HTN: Yes Hypercholesterolemia: Yes Kidney Stones: Yes Liver Disease: No Psychiatric Problems: Yes (ANXIETY, DEPRESSION) Seizures: No Thyroid Disease: Yes (hypothyroid) - Surgical History Abdominal Surgery: No Appendectomy: No Cardiac Surgery: No Cholecystectomy: No Lung Surgery: No Neurologic Surgery: No Orthopedic Surgery: Yes (B/L hip replacement (rt 2009; left 2012)) - Immunization History Td Vaccination: Yes TDAP Vaccination: No Immunization Up to Date: Yes - Suicide/Smoking/Psychosocial Hx Smoking Status: Yes Smoking History: Current every day smoker Years of Tobacco Use: 30 Have you smoked in the past 12 months: No Number of Cigarettes Smoked Daily: 7 If you are a former smoker, when did you quit?: refused booklet 07/21/14 Cigars Per Day: 0 Information on smoking cessation initiated: Yes 'Breaking Loose' booklet given: 01/15/18 Hx Alcohol Use: No Drug/Substance Use Hx: No Substance Use Type: None Hx Substance Use Treatment: Yes Trauma Specific PMHX - Complaint Specific PMHX Arthritis: Yes (with osteoporosis) Back Injury: No Review of Systems - Review of Systems Able to Perform ROS?: Yes Is the patient limited [place] proficient: Yes Constitutional: Yes: Symptoms Reported, See HPI, Malaise. No: Chills, Fever, Loss of Appetite HEENTM: Yes: See HPI. No: Symptoms Reported Respiratory: Yes: See HPI. No: Cough Musculoskeletal: Yes: Symptoms Reported, See HPI, Back Pain, Muscle Pain. No: Joint Pain Integumentary: Yes: See HPI. No: Symptoms Reported, Bruising, Rash All Other Systems: Reviewed and Negative *Physical Exam - Vital Signs Last Vital Signs Temp Pulse Resp BP Pulse Ox 98.5 F 83 16 136/76 99 01/15/18 10:53 01/15/18 10:53 01/15/18 10:53 01/15/18 10:53 01/15/18 10:53 - Physical Exam General Appearance: Yes: Nourished, Appropriately Dressed, Apparent Distress, Mild Distress HEENT: positive: TEO, Normal ENT Inspection, Normal Voice, TMs Normal, Pharynx Normal Neck: positive: Supple. negative: Tender Respiratory/Chest: positive: Lungs Clear Musculoskeletal: positive: Decreased Range of Motion, Muscle Spasm (mild tenderness to low paravertebral muscle ). negative: Vertebral Tenderness Extremity: positive: Normal Capillary Refill, Normal Range of Motion Integumentary: positive: Dry, Warm, Pale Neurologic: positive: fruit stuffer II-XII NML intact, Fully Oriented, Alert, Normal Mood/ Affect Progress Note - Progress Note Progress Note: chronic back pain, consistent with all previous visits, no changes in neuro status. We'll treat with very small dose of Toradol per patient's request and encourage pain management follow-up. *DC/Admit/Observation/Transfer Diagnosis at time of Disposition: Chronic low back pain Qualifiers: Back pain laterality: unspecified Sciatica presence: without sciatica Qualified Code(s): M54.5 - Low back pain; G89.29 - Other chronic pain - Discharge Dispostion Disposition: HOME Condition at time of disposition: Stable Decision to Admit order: No - Referrals Referrals: Syl Gonzalez MD [Primary Care Provider] - Ivan Bo MD [Staff Physician] - - Patient Instructions Printed Discharge Instructions: DI for Low Back Pain Additional Instructions: Rest, no heavy lifting or exercise until pain is resolved Hot soaks to neck and low back as often as possible/hot showers or Jacuzzis No massage or therapy until spasm is gone If not significant improvement within 24 hours with medication and rest regime, followup with private physician for change in medications and /or therapy. Call Dr. Jacobs's office for appointment as soon as possible for chronic pain management - Post Discharge Activity Forms/Work/School Notes: Back to Work
[2018-01-15] MEDS ORDERED: KETOROLAC TROMETHAMINE 60 MG/2 ML VIAL IM ONE (11:36)
[2018-01-15] MEDS ORDERED: KETOROLAC TROMETHAMINE 15 MG/ML VIAL ONE (11:37)
== END 2018-01-15 12:02 | disposition home or self-care (01) ==
LOC: JERFT 10:15
PROC: 3E0233Z Introduction of Anti-inflammatory into Muscle, Percutaneous Approach (ICD-10-PCS; principal; 2018-01-15)
DX: M54.5 Low back pain (principal); G89.29 Other chronic pain; F17.210 Nicotine dependence, cigarettes, uncomplicated; E03.9 Hypothyroidism, unspecified; F41.8 Other specified anxiety disorders; E78.00 Pure hypercholesterolemia, unspecified; I10 Essential (primary) hypertension
CPT/HCPCS: 99281-25

== ENCOUNTER 2018-01-15 18:14 | Emergency (ER) | payer OTHER ==
[2018-01-15 18:34] VITALS: BP 129/76; PULSE 83; TEMP 99.2; BMI 23.0
[2018-01-15] MEDS ORDERED: ACETAMINOPHEN 500 MG TABLET (FP) PO ONE (19:13)
[2018-01-15] MEDS ORDERED: ACETAMINOPHEN 500 MG TABLET (FP) ONE (19:17)
--- NOTE | 2018-01-15 19:18 | PDOC ---
History of Present Illness - General Chief Complaint: Back Pain Stated Complaint: BACK PAIN Time Seen by Provider: 01/15/18 19:09 - History of Present Illness Initial Comments: 62-year-old female returns to the emergency room for ongoing lower back pain. She was seen earlier today given a shot of Toradol and told to follow-up with pain management she comes back to the emergency room. She complains of left posterior lateral leg radicular symptoms down to the level of her knee no loss of bowel bladder function or saddle paresthesia. 01/15/18 19:15 Past History - Past Medical History Allergies/Adverse Reactions: Allergies Allergy/AdvReac Type Severity Reaction Status Date / Time levofloxacin [From Levaquin] Allergy Mild Itching Verified 01/15/18 10:53 Anemia: Yes Asthma: Yes Cancer: No Cardiac Disorders: Yes CVA: No COPD: Yes CHF: No DVT: No Dementia: No Diabetes: No GI Disorders: Yes (bleeding ulcer) Disorders: Yes (KIDNEY STONE;) HTN: Yes Hypercholesterolemia: Yes Kidney Stones: Yes Liver Disease: No Psychiatric Problems: Yes (ANXIETY, DEPRESSION) Seizures: No Thyroid Disease: Yes (hypothyroid) - Surgical History Abdominal Surgery: No Appendectomy: No Cardiac Surgery: No Cholecystectomy: No Lung Surgery: No Neurologic Surgery: No Orthopedic Surgery: Yes (B/L hip replacement (rt 2009; left 2012)) - Immunization History Td Vaccination: Yes TDAP Vaccination: No Immunization Up to Date: Yes - Suicide/Smoking/Psychosocial Hx Smoking Status: Yes Smoking History: Current every day smoker Years of Tobacco Use: 30 Have you smoked in the past 12 months: No Number of Cigarettes Smoked Daily: 7 If you are a former smoker, when did you quit?: refused booklet 07/21/14 Cigars Per Day: 0 Information on smoking cessation initiated: Yes 'Breaking Loose' booklet given: 01/15/18 Hx Alcohol Use: No Drug/Substance Use Hx: No Substance Use Type: None Hx Substance Use Treatment: Yes Review of Systems - Review of Systems Musculoskeletal: Yes: See HPI, Back Pain All Other Systems: Reviewed and Negative *Physical Exam - Vital Signs Last Vital Signs Temp Pulse Resp BP Pulse Ox 99.2 F 83 18 129/76 99 01/15/18 18:32 01/15/18 18:32 01/15/18 18:32 01/15/18 18:32 01/15/18 18:32 - Physical Exam Comments: Bar spine skin color and temperature are normal range of motion is decreased. She has diffuse nonspecific tenderness that seems out of proportion to the examination. 5 out of 5 strength in bilateral lower extremities without gross sensorimotor deficits. She's neurovascular intact. 01/15/18 19:16 Medical Decision Making - Medical Decision Making 01/15/18 19:16 Patient with chronic renal failure treated with Toradol earlier today I will give her Tylenol for pain and have her follow-up with pain management *DC/Admit/Observation/Transfer Diagnosis at time of Disposition: Muscle spasm of back, Chronic low back pain - Discharge Dispostion Disposition: HOME Condition at time of disposition: Stable Decision to Admit order: No - Referrals Referrals: Syl Gonzalez MD [Primary Care Provider] - Nadine Larson MD [Non Staff, Medical] - Shayan Sen MD [Staff Physician] - Froylan Martins MD [Non Staff, Medical] - Som James MD [Staff Physician] - Deep Albrecht MD [Staff Physician] - Eren Humphrey MD [Non Staff, Medical] - Rosalva Thao MD [Non Staff, Medical] - Ruchi Null MD [Non Staff, Medical] - Bita Chiang MD [Non Staff, Medical] - Adeline Coreas MD [Non Staff, Medical] - Shelli Rogers MD, MD [Non Staff, Medical] - Meagan Rivas MD [Staff Physician] - Mame Bradley MD [Non Staff, Medical] - Irish Tomas MD [Non Staff, Medical] - Donald Zuniga MD [Non Staff, Medical] - Joni Hall MD [Staff Physician] - Chun Carney MD [Non Staff, Medical] - Travis Amaya [Non Staff, Medical] - Chester Pérez MD [Non Staff, Medical] - Melinda Ontiveros MD [Staff Physician] - Citlalli Trotter MD [Non Staff, Medical] - Sunshine Jackson MD [Non Staff, Medical] - Dominik Peña MD [Non Staff, Medical] - - Patient Instructions Printed Discharge Instructions: DI for Chronic Pain -- Adult Additional Instructions: Follow-up with pain management as directed return to the emergency room should symptoms go unresolved. He should follow-up with pain management once 2 days of given you a list of multiple doctors in the area - Post Discharge Activity
== END 2018-01-15 19:21 | disposition home or self-care (01) ==
LOC: JERFT 18:14 → JER 18:14 → JERFT 19:21
DX: M62.830 Muscle spasm of back (principal); M54.5 Low back pain; G89.29 Other chronic pain; I10 Essential (primary) hypertension; E78.00 Pure hypercholesterolemia, unspecified; F41.8 Other specified anxiety disorders; J45.909 Unspecified asthma, uncomplicated; E03.9 Hypothyroidism, unspecified; D64.9 Anemia, unspecified; Z87.19 Personal history of other diseases of the digestive system; Z96.643 Presence of artificial hip joint, bilateral
CPT/HCPCS: 99281-25

== ENCOUNTER 2018-01-31 17:51 | Emergency (ER) | payer OTHER ==
[2018-01-31 18:15] VITALS: BP 146/88; PULSE 93; TEMP 99.1; BMI 24.7
--- NOTE | 2018-01-31 18:16 | PDOC ---
Rapid Medical Evaluation Chief Complaint: Chronic pain Time Seen by Provider: 01/31/18 18:05 Medical Evaluation: Allergies Allergy/AdvReac Type Severity Reaction Status Date / Time levofloxacin [From Levaquin] Allergy Mild Itching Verified 01/31/18 18:11 01/31/18 18:12 62 year old female with lower back pain reports finishing flexeril now with pain. denies numbness or tingling . PE; patient alert ox3. A: back pain P: patient to the ER for further management of care. Discharge Disposition - Diagnosis Chronic low back pain Qualifiers: Back pain laterality: unspecified Sciatica presence: without sciatica Qualified Code(s): M54.5 - Low back pain; G89.29 - Other chronic pain - Referrals - Patient Instructions - Post Discharge Activity
[2018-01-31] MEDS ORDERED: KETOROLAC TROMETHAMINE 60 MG/2 ML VIAL IM ONE (18:39)
[2018-01-31] MEDS ORDERED: KETOROLAC TROMETHAMINE 30 MG/1 ML VIAL ONE (18:41)
--- NOTE | 2018-01-31 18:44 | PDOC ---
History of Present Illness - General Chief Complaint: Chronic pain Stated Complaint: BACK PAIN Time Seen by Provider: 01/31/18 18:05 History Source: Patient Exam Limitations: No Limitations - History of Present Illness Initial Comments: 01/31/18 18:40 Patient well known to this emergency Department comes in with complaints of acute on her chronic back, denies change in exercise, trauma,, fevers or any changes. States is same pain and has run out of her Flexeril. Is numbness or tingling to toes, denies any pain or problems with urine or bowels. ReQuests Toradol 01/31/18 18:41 01/31/18 18:49 Occurred: reports: yesterday Pain Location: reports: back Method of Injury: Yes: unknown Modifying Factors: improves with: None Loss of Consciousness: no loss of consciousness Associated Symptoms (Fall): muscle spasms Past History - Travel Traveled outside of the country in the last 30 days: No Close contact w/someone who was outside of country & ill: No - Past Medical History Allergies/Adverse Reactions: Allergies Allergy/AdvReac Type Severity Reaction Status Date / Time levofloxacin [From Levaquin] Allergy Mild Itching Verified 01/31/18 18:11 Home Medications: Ambulatory Orders Cyclobenzaprine HCl [Flexeril -] 10 mg PO HS #7 tablet 01/31/18 Anemia: Yes Asthma: Yes Cancer: No Cardiac Disorders: Yes CVA: No COPD: Yes CHF: No DVT: No Dementia: No Diabetes: No GI Disorders: Yes (bleeding ulcer) Disorders: Yes (KIDNEY STONE;) HTN: Yes Hypercholesterolemia: Yes Kidney Stones: Yes Liver Disease: No Psychiatric Problems: Yes (ANXIETY, DEPRESSION) Seizures: No Thyroid Disease: Yes (hypothyroid) - Surgical History Abdominal Surgery: No Appendectomy: No Cardiac Surgery: No Cholecystectomy: No Lung Surgery: No Neurologic Surgery: No Orthopedic Surgery: Yes (B/L hip replacement (rt 2009; left 2012)) - Immunization History Td Vaccination: Yes TDAP Vaccination: No Immunization Up to Date: Yes - Suicide/Smoking/Psychosocial Hx Smoking Status: Yes Smoking History: Current every day smoker Years of Tobacco Use: 30 Have you smoked in the past 12 months: No Number of Cigarettes Smoked Daily: 7 If you are a former smoker, when did you quit?: refused booklet 07/21/14 Cigars Per Day: 0 Information on smoking cessation initiated: No 'Breaking Loose' booklet given: 01/15/18 Hx Alcohol Use: No Drug/Substance Use Hx: No Substance Use Type: None Hx Substance Use Treatment: Yes Trauma Specific PMHX - Complaint Specific PMHX Arthritis: Yes (with osteoporosis) Back Injury: No Review of Systems - Review of Systems Able to Perform ROS?: Yes Is the patient limited Urdu proficient: Yes Constitutional: Yes: Symptoms Reported, See HPI, Malaise. No: Fever HEENTM: No: Symptoms Reported Respiratory: No: Symptoms reported Musculoskeletal: Yes: Symptoms Reported, See HPI, Back Pain Integumentary: No: Symptoms Reported Neurological: Yes: Symptoms reported, See HPI. No: Numbness, Paresthesia All Other Systems: Reviewed and Negative *Physical Exam - Vital Signs Last Vital Signs Temp Pulse Resp BP Pulse Ox 99.1 F 93 H 18 146/88 99 01/31/18 18:13 01/31/18 18:13 01/31/18 18:13 01/31/18 18:13 01/31/18 18:13 - Physical Exam General Appearance: Yes: Nourished, Appropriately Dressed, Apparent Distress HEENT: positive: TEO, Normal ENT Inspection, Normal Voice, TMs Normal, Pharynx Normal Neck: positive: Supple. negative: Tender, Lymphadenopathy (R), Lymphadenopathy (L) Respiratory/Chest: positive: Lungs Clear Gastrointestinal/Abdominal: positive: Soft. negative: Tender Musculoskeletal: positive: Normal Inspection, Decreased Range of Motion. negative: CVA Tenderness, Vertebral Tenderness Extremity: positive: Normal Capillary Refill, Normal Inspection, Normal Range of Motion Integumentary: positive: Normal Color, Dry, Warm Neurologic: positive: captain cannery tender II-XII NML intact, Fully Oriented, Alert, Normal Mood/ Affect, Normal Response, Motor Strength 5/5 Progress Note - Progress Note Progress Note: Chronic back pain, treated with Toradol *DC/Admit/Observation/Transfer Diagnosis at time of Disposition: Chronic low back pain Qualifiers: Back pain laterality: unspecified Sciatica presence: without sciatica Qualified Code(s): M54.5 - Low back pain - Discharge Dispostion Disposition: HOME Condition at time of disposition: Stable Decision to Admit order: No - Referrals - Patient Instructions Printed Discharge Instructions: DI for Chronic Pain -- Adult Additional Instructions: Rest, no heavy lifting or exercise until pain is resolved Hot soaks to neck and low back as often as possible/hot showers or Jacuzzis No massage or therapy until spasm is gone Continue Naprosyn 500 mg tablet, 1 tablet every 12 hours for the next 3 days then as needed for pain and swelling If not significant improvement within 24 hours with medication and rest regime, followup with private physician for change in medications and /or therapy. - Post Discharge Activity
== END 2018-01-31 19:05 | disposition home or self-care (01) ==
LOC: JERFT 17:51
PROC: 3E0233Z Introduction of Anti-inflammatory into Muscle, Percutaneous Approach (ICD-10-PCS; principal; 2018-01-31)
DX: M54.5 Low back pain (principal); G89.29 Other chronic pain; D64.9 Anemia, unspecified; J45.909 Unspecified asthma, uncomplicated; I10 Essential (primary) hypertension; J44.9 Chronic obstructive pulmonary disease, unspecified; E78.00 Pure hypercholesterolemia, unspecified; F41.8 Other specified anxiety disorders; F32.9 Major depressive disorder, single episode, unspecified; E03.9 Hypothyroidism, unspecified; Z96.653 Presence of artificial knee joint, bilateral
CPT/HCPCS: 96372; 99281-25

== ENCOUNTER 2018-02-06 22:30 | Emergency (ER) | payer OTHER ==
[2018-02-06 22:51] VITALS: BP 142/83; PULSE 93; TEMP 98; BMI 23.0
[2018-02-07] MEDS ORDERED: IBUPROFEN 400 MG TABLET (FP) PO ONE ×2 (04:25→04:45)
[2018-02-07] MEDS ORDERED: ALBUTEROL SO4 2.5/IPRATROPIUM 0.5 INH SOL 3 ML VIAL.NEB. NEB ONE ×2 (04:31→04:45)
--- NOTE | 2018-02-07 04:32 | PDOC ---
History of Present Illness - General History Source: Patient Exam Limitations: No Limitations - History of Present Illness Initial Comments: 02/07/18 04:22 The patient is a 62 year old female, with a significant past medical history of Asthma, COPD, Anemia, CKD, CHF, Chronic Back Pain (L4 L5 herniated discs) with multiple ED visits, bleeding ulcer, HTN, HLD, who presents to the emergency department with right great toe pain after "a book fell on it" today. Patient able to ambulate but has difficulty bending the toe due to swelling and pain. <Silvano Travis - Last Filed: 02/07/18 06:25> <Yanira Owen - Last Filed: 02/07/18 08:03> - General Chief Complaint: Pain Stated Complaint: BACK PAIN Time Seen by Provider: 02/07/18 02:28 Past History - Past Medical History Anemia: Yes Asthma: Yes Cancer: No Cardiac Disorders: Yes CVA: No COPD: Yes CHF: No DVT: No Dementia: No Diabetes: No GI Disorders: Yes (bleeding ulcer) Disorders: Yes (KIDNEY STONE;) HTN: Yes Hypercholesterolemia: Yes Kidney Stones: Yes Liver Disease: No Psychiatric Problems: Yes (ANXIETY, DEPRESSION) Seizures: No Thyroid Disease: Yes (hypothyroid) - Surgical History Abdominal Surgery: No Appendectomy: No Cardiac Surgery: No Cholecystectomy: No Lung Surgery: No Neurologic Surgery: No Orthopedic Surgery: Yes (B/L hip replacement (rt 2009; left 2012)) - Immunization History Td Vaccination: Yes TDAP Vaccination: No Immunization Up to Date: Yes - Suicide/Smoking/Psychosocial Hx Smoking Status: Yes Smoking History: Current every day smoker Years of Tobacco Use: 30 Have you smoked in the past 12 months: No Number of Cigarettes Smoked Daily: 7 If you are a former smoker, when did you quit?: refused booklet 07/21/14 Cigars Per Day: 0 Information on smoking cessation initiated: No 'Breaking Loose' booklet given: 01/15/18 Hx Alcohol Use: No Drug/Substance Use Hx: No Substance Use Type: None Hx Substance Use Treatment: Yes <Silvano Travis - Last Filed: 02/07/18 06:25> <Yanira Owen - Last Filed: 02/07/18 08:03> - Past Medical History Allergies/Adverse Reactions: Allergies Allergy/AdvReac Type Severity Reaction Status Date / Time levofloxacin [From Levaquin] Allergy Mild Itching Verified 02/06/18 22:51 Home Medications: Ambulatory Orders Cyclobenzaprine HCl [Flexeril -] 10 mg PO HS #7 tablet 01/31/18 Review of Systems - Review of Systems Constitutional: No: Chills, Fever Respiratory: Yes: Other (chest tightness). No: Wheezing, Productive cough Cardiac (ROS): No: Chest Pain <Silvano Travis - Last Filed: 02/07/18 06:25> *Physical Exam - Vital Signs Last Vital Signs Temp Pulse Resp BP Pulse Ox 98 F 93 H 18 142/83 98 02/06/18 22:48 02/06/18 22:48 02/06/18 22:48 02/06/18 22:48 02/06/18 22:48 <Silvano Travis - Last Filed: 02/07/18 06:25> - Vital Signs Last Vital Signs Temp Pulse Resp BP Pulse Ox 98 F 93 H 18 142/83 98 02/06/18 22:48 02/06/18 22:48 02/06/18 22:48 02/06/18 22:48 02/06/18 22:48 <Yanira Owen - Last Filed: 02/07/18 08:03> ED Treatment Course - RADIOLOGY Radiology Studies Ordered: Category Date Time Status FOOT-LEFT [RAD] Stat Radiology 02/07/18 03:44 Ordered <Silvano Travis - Last Filed: 02/07/18 06:25> - Medications Given in the ED: ED Medications Discontinued Medications Generic Name Dose Route Start Last Admin Trade Name Rip PRN Reason Stop Dose Admin Albuterol/Ipratropium 1 amp 02/07/18 04:31 02/07/18 04:52 Duoneb - NEB 02/07/18 04:32 1 amp ONCE ONE Administration Ibuprofen 800 mg 02/07/18 04:25 02/07/18 04:52 Motrin - PO 02/07/18 04:26 800 mg ONCE ONE Administration <Yanira Owen - Last Filed: 02/07/18 08:03> Medical Decision Making - Medical Decision Making 02/07/18 06:25 62 female with hx of chronic pain presents to ED after toe injury X ray to right foot pending. R/O fracture if negative send home with RICE and follow up with primary care doctor <Silvano Travis - Last Filed: 02/07/18 06:25> *DC/Admit/Observation/Transfer <Silvano Travis - Last Filed: 02/07/18 06:25> - Discharge Dispostion Decision to Admit order: No <Yanira Owen - Last Filed: 02/07/18 08:03> Diagnosis at time of Disposition: Toe pain Qualifiers: Laterality: unspecified laterality Qualified Code(s): M79.676 - Pain in unspecified toe(s) - Discharge Dispostion Disposition: HOME Condition at time of disposition: Stable
== END 2018-02-07 09:49 | disposition home or self-care (01) ==
LOC: JER 22:30
PROC: 3E0F7GC Introduction of Other Therapeutic Substance into Respiratory Tract, Via Natural or Artificial Opening (ICD-10-PCS; principal; 2018-02-06)
DX: M79.674 Pain in right toe(s) (principal); W20.8XXA Other cause of strike by thrown, projected or falling object, initial encounter; Y93.89 Activity, other specified; Y92.038 Other place in apartment as the place of occurrence of the external cause; Y99.8 Other external cause status; J45.909 Unspecified asthma, uncomplicated; J44.9 Chronic obstructive pulmonary disease, unspecified; I13.0 Hypertensive heart and chronic kidney disease with heart failure and stage 1 through stage 4 chronic kidney disease, or unspecified chronic kidney disease; F17.210 Nicotine dependence, cigarettes, uncomplicated; N18.9 Chronic kidney disease, unspecified; E78.00 Pure hypercholesterolemia, unspecified; E78.5 Hyperlipidemia, unspecified; F41.9 Anxiety disorder, unspecified; F32.9 Major depressive disorder, single episode, unspecified; Z96.643 Presence of artificial hip joint, bilateral
CPT/HCPCS: 73630-TC-RT-FY; 99281-25; J7620

== ENCOUNTER 2018-02-08 20:37 | Emergency (ER) | payer OTHER ==
[2018-02-08 20:44] VITALS: BP 146/83; PULSE 99; TEMP 99.2; BMI 23.0
[2018-02-08] MEDS ORDERED: KETOROLAC TROMETHAMINE 30 MG/1 ML VIAL IM ONE (21:51)
--- NOTE | 2018-02-08 21:51 | PDOC ---
History of Present Illness - General Chief Complaint: Nasal Bleeding Stated Complaint: BACK PAIN Time Seen by Provider: 02/08/18 20:45 History Source: Patient - History of Present Illness Severity: mild Past History - Past Medical History Allergies/Adverse Reactions: Allergies Allergy/AdvReac Type Severity Reaction Status Date / Time levofloxacin [From Levaquin] Allergy Mild Itching Verified 02/08/18 20:42 Home Medications: Ambulatory Orders Cyclobenzaprine HCl [Flexeril -] 10 mg PO HS #7 tablet 01/31/18 Ibuprofen [Motrin -] 400 mg PO QID #20 tablet 02/07/18 Anemia: Yes Asthma: Yes Cancer: No Cardiac Disorders: Yes CVA: No COPD: Yes CHF: No DVT: No Dementia: No Diabetes: No GI Disorders: Yes (bleeding ulcer) Disorders: Yes (KIDNEY STONE;) HTN: Yes Hypercholesterolemia: Yes Kidney Stones: Yes Liver Disease: No Psychiatric Problems: Yes (ANXIETY, DEPRESSION) Seizures: No Thyroid Disease: Yes (hypothyroid) - Surgical History Abdominal Surgery: No Appendectomy: No Cardiac Surgery: No Cholecystectomy: No Lung Surgery: No Neurologic Surgery: No Orthopedic Surgery: Yes (B/L hip replacement (rt 2009; left 2012)) - Immunization History Td Vaccination: Yes TDAP Vaccination: No Immunization Up to Date: Yes - Suicide/Smoking/Psychosocial Hx Smoking Status: Yes Smoking History: Current every day smoker Years of Tobacco Use: 30 Have you smoked in the past 12 months: No Number of Cigarettes Smoked Daily: 7 If you are a former smoker, when did you quit?: refused booklet 07/21/14 Cigars Per Day: 0 Information on smoking cessation initiated: No 'Breaking Loose' booklet given: 01/15/18 Hx Alcohol Use: No Drug/Substance Use Hx: No Substance Use Type: None Hx Substance Use Treatment: Yes Review of Systems - Review of Systems Constitutional: No: Chills, Fever, Malaise HEENTM: Yes: Nose Bleeding *Physical Exam - Vital Signs Last Vital Signs Temp Pulse Resp BP Pulse Ox 99.2 F 99 H 18 146/83 99 02/08/18 20:42 02/08/18 20:42 02/08/18 20:42 02/08/18 20:42 02/08/18 20:42 - Physical Exam General Appearance: Yes: Appropriately Dressed. No: Apparent Distress HEENT: positive: Normal Voice, TMs Normal, Pharynx Normal, Other (trace dried blood in R nares, no active bleed). negative: Scleral Icterus (R), Scleral Icterus (L) Neck: positive: Supple Respiratory/Chest: negative: Respiratory Distress Integumentary: positive: Dry, Warm Neurologic: positive: Fully Oriented, Alert, Normal Mood/Affect Medical Decision Making - Medical Decision Making 02/08/18 21:5 02/08/18 21:52 62-year-old female, history of asthma, COPD, anemia, chronic kidney disease, CHF , ache, back pain, hypertension and hyperlipidemia, here with complaint of epistaxis Patient states she started bleeding spontaneously from her right nares several hours ago that has since resolved. States bleeding lasted for 2 minutes and resolved on its own. No further bleeding. No history of trauma. No recent URI. No trauma or excessively heated apartment. Not on any blood thinners per pt. Since in ED, complaining of her lower back pain. No new symptoms. Of note, patient has had numerous ER visits for back pain See exam L epistaxis Resolved hr ago per pt No recent URI No trauma Not on blood thinners No sig BP elevation in ED Trace dried blood in L nares -dc w/ PMD f/u early next week *DC/Admit/Observation/Transfer Diagnosis at time of Disposition: Epistaxis - Discharge Dispostion Disposition: HOME Condition at time of disposition: Improved - Referrals - Patient Instructions Printed Discharge Instructions: Nosebleed Additional Instructions: If nose bleed re-occur, please place pressure on your nasal bridge for 10 minutes without interruption. Do this once or twice. If you're unable to stop the bleeding, return to ER immediately, otherwise follow-up with your primary care physician - Post Discharge Activity
[2018-02-08] MEDS ORDERED: ACETAMINOPHEN 325 MG TABLET (FP) ONE (21:55)
[2018-02-08] MEDS ORDERED: ACETAMINOPHEN 325 MG TABLET (FP) PO ONE (22:00)
== END 2018-02-08 22:04 | disposition home or self-care (01) ==
LOC: JERFT 20:37
DX: R04.0 Epistaxis (principal); M54.5 Low back pain; G89.29 Other chronic pain; D64.9 Anemia, unspecified; J44.9 Chronic obstructive pulmonary disease, unspecified; J45.909 Unspecified asthma, uncomplicated; I10 Essential (primary) hypertension; I50.9 Heart failure, unspecified; E78.00 Pure hypercholesterolemia, unspecified; F41.8 Other specified anxiety disorders; Z87.19 Personal history of other diseases of the digestive system; Z96.643 Presence of artificial hip joint, bilateral; E03.9 Hypothyroidism, unspecified
CPT/HCPCS: 99281-25

== ENCOUNTER 2018-02-13 22:08 | Emergency (ER) | payer OTHER ==
[~2018-02-13 22:08] MED LIST changes: -ACETAMINOPHEN 325 MG TABLET (FP) ONE; -ACETAMINOPHEN 325 MG TABLET (FP) PO ONE; -ALBUTEROL SO4 2.5/IPRATROPIUM 0.5 INH SOL 3 ML VIAL.NEB. NEB ONE; -CYCLOBENZAPRINE HCL 10 MG TABLET (FP) ONE; -CYCLOBENZAPRINE HCL 10 MG TABLET (FP) PO ONE; -KETOROLAC TROMETHAMINE 60 MG/2 ML VIAL IM ONE; -KETOROLAC TROMETHAMINE 60 MG/2 ML VIAL ONE; +LIDOCAINE PATCH REMOVAL MC SCH
[2018-02-13 22:17] VITALS: TEMP 98.5; BMI 23.8
--- NOTE | 2018-02-13 23:17 | PDOC ---
History of Present Illness - General Chief Complaint: Chronic pain Stated Complaint: Back PAIN Time Seen by Provider: 02/13/18 22:57 - History of Present Illness Initial Comments: 62yo F with PMH of chronic back pain, L4-L5 herniated disk, CHF, CKD, anemia, asthma, COPD, nephrolithiasis presenting with back pain. Has been seen in this ED for similar complaint multiple times. Denies recent trauma or fall. No saddle anesthesia or urinary or stool incontinence. She endorses lower back pain that radiates down her leg. Patient has not taken anything for her pain. Patient endorses shortness of breath which she associates with her asthma. No dysuria or hematuria. No fevers or chills. Past History - Past Medical History Allergies/Adverse Reactions: Allergies Allergy/AdvReac Type Severity Reaction Status Date / Time levofloxacin [From Levaquin] Allergy Mild Itching Verified 02/13/18 22:16 Home Medications: Ambulatory Orders Cyclobenzaprine HCl [Flexeril -] 10 mg PO HS #7 tablet 01/31/18 Ibuprofen [Motrin -] 400 mg PO QID #20 tablet 02/07/18 Cephalexin [Keflex] 500 mg PO TID #30 capsule 02/10/18 Anemia: Yes Asthma: Yes Cancer: No Cardiac Disorders: Yes CVA: No COPD: Yes CHF: No DVT: No Dementia: No Diabetes: No GI Disorders: Yes (bleeding ulcer) Disorders: Yes (KIDNEY STONE;) HTN: Yes Hypercholesterolemia: Yes Kidney Stones: Yes Liver Disease: No Psychiatric Problems: Yes (ANXIETY, DEPRESSION) Seizures: No Thyroid Disease: Yes (hypothyroid) - Surgical History Abdominal Surgery: No Appendectomy: No Cardiac Surgery: No Cholecystectomy: No Lung Surgery: No Neurologic Surgery: No Orthopedic Surgery: Yes (B/L hip replacement (rt 2009; left 2012)) - Immunization History Td Vaccination: Yes TDAP Vaccination: No Immunization Up to Date: Yes - Suicide/Smoking/Psychosocial Hx Smoking Status: Yes Smoking History: Current every day smoker Years of Tobacco Use: 30 Have you smoked in the past 12 months: Yes Number of Cigarettes Smoked Daily: 7 If you are a former smoker, when did you quit?: refused booklet 07/21/14 Cigars Per Day: 0 Information on smoking cessation initiated: Yes 'Breaking Loose' booklet given: 01/15/18 Hx Alcohol Use: No Drug/Substance Use Hx: No Substance Use Type: None Hx Substance Use Treatment: Yes Review of Systems - Review of Systems Comments:: Constitutional: no fever, no chills HEENT: no throat pain, no dysphagia Cardiovascular: no chest pain, no palpitations Respiratory: +cough, +shortness of breath Gastrointestinal: no abdominal pain, no nausea, no vomiting Genitourinary: no dysuria, no frequency Musculoskeletal: no myalgia, no arthralgia Skin: no rash, no itching Neurologic: no headache, no dizziness *Physical Exam - Vital Signs Last Vital Signs Temp Pulse Resp BP Pulse Ox 98.5 F 97 H 18 155/87 97 02/13/18 22:11 02/13/18 22:11 02/13/18 22:11 02/13/18 22:11 02/13/18 22:11 - Physical Exam Comments: General: Awake, alert, and fully oriented, in no acute distress Head: no signs of trauma Eyes: EOMI, sclera anicteric ENT: Moist mucus membranes Neck: Normal ROM, supple Lungs: Lungs clear, Normal breath sounds Cardio: Regular rhythm, S1 and S2 present Abdomen: Soft, nontender. No guarding, no rebound, no masses Extremities: Normal range of motion, Distal pulses present, Straight leg test positive on left Back: Tenderness to palpation all along back, most significant in sacral region ; no stepoffs or deformity; no overlying lesion or wound SKIN: Warm, Dry, normal turgor Neurologic: Cranial nerves II through XII grossly intact. Normal speech Medical Decision Making - Medical Decision Making 62yo F with PMH of chronic back pain, L4-L5 herniated disk, CHF, CKD, anemia, asthma, COPD, nephrolithiasis presenting with back pain. -DDX includes but not limited to acute on chronic back pain, nephrolithiasis, pyelonephritis, malingering -1000mg ofirmev, 500 robaxin, lidoderm patch -Will reassess 02/13/18 23:57 Patient signed out to Dr. Briggs 02/14/18 00:30 *DC/Admit/Observation/Transfer Diagnosis at time of Disposition: Chronic low back pain Qualifiers: Back pain laterality: unspecified Sciatica presence: unspecified whether sciatica present Qualified Code(s): M54.5 - Low back pain - Discharge Dispostion Disposition: HOME Condition at time of disposition: Stable - Referrals Referrals: [facility] [place] [facility] [place] [Provider Group] Ivan Bo MD [Staff Physician] - - Patient Instructions Printed Discharge Instructions: DI for Chronic Pain -- Adult Additional Instructions: You were seen in the Emergency Room today for evaluation of chronic pain. Please review the handout provided at discharge. Please follow up with your primary care physician. Return to the Emergency Department if you develop fevers, chest pain, or new/ concerning symptoms. - Post Discharge Activity
[2018-02-13] MEDS ORDERED: LIDOCAINE 5% TOPICAL PATCH TP ONE (23:48)
[2018-02-13] MEDS ORDERED: ACETAMINOPHEN 1000 MG/100 ML VIAL (NON FORMULARY) IVPB ONE (23:48)
[2018-02-13] MEDS ORDERED: METHOCARBAMOL 500 MG TABLET PO ONE (23:48)
--- NOTE | 2018-02-13 23:50 | PDOC ---
Attending Attestation - Resident Resident Name: Yanira Quiñones - ED Attending Attestation I have performed the following: I have examined & evaluated the patient, The case was reviewed & discussed with the resident, I agree w/resident's findings & plan, Exceptions are as noted - HPI HPI: 02/14/18 00:14 Ms Matamoros is a 62 yo F with multiple medical problems including asthma, COPD, Anemia, CKD, CHF, Chronic Back Pain (L4 L5 herniated discs) with multiple ED visits for her chronic back pain, HTN, HLD. She presents today for a recurrence of her back pain She did not take any pain medication for this Pt denies direct trauma, new leg weakness, incontinence, retention, sensory deficit Per chart review, renal recommends avoiding NSAIDS She denies recent dysuria, frequency, urgency or hematuria. - Physicial Exam PE: 02/14/18 00:17 On examination Pt is laying on stretcher, requesting cookies and milk RRR CTA no abd tenderness lower back tender pulp drier to palpation - Medical Decision Making 02/14/18 00:20 Labs from last admission approximately 3 weeks ago 02/14/18 03:49 Pt demanding more pain meds, Hospital admission and milk/cookies IV attempted, not successful Labs attempted with use of US, unsuccessful I have explained to her given her renal function, we should limit NSAIDS, will not treat chronic back pain with narcotic medications Pt offered Flexeril Pt will stay in the ER until the morning Will d/c in am Will ask pt to follow up with pain management as an alternative to repeat visits to the ER for chronic back pain
[2018-02-14] MEDS ORDERED: LIDOCAINE 5% TOPICAL PATCH ONE (00:25)
[2018-02-14] MEDS ORDERED: METHOCARBAMOL 500 MG TABLET ONE (00:25)
[2018-02-14] MEDS ORDERED: ACETAMINOPHEN INJECTION 100 ML IVPB ONE (00:25)
--- NOTE | 2018-02-14 03:44 | PDOC ---
*Physical Exam - Vital Signs Last Vital Signs Temp Pulse Resp BP Pulse Ox 98.5 F 97 H 18 155/87 97 02/13/18 22:11 02/13/18 22:11 02/13/18 22:11 02/13/18 22:11 02/13/18 22:11 ED Treatment Course - Medications Given in the ED: ED Medications Discontinued Medications Generic Name Dose Route Start Last Admin Trade Name Rip PRN Reason Stop Dose Admin Acetaminophen 1,000 mg 02/13/18 23:48 02/14/18 02:21 Ofirmev Injection - IVPB 02/13/18 23:49 Not Given ONCE ONE Lidocaine 1 patch 02/13/18 23:48 02/14/18 00:56 Lidoderm Patch - TP 02/13/18 23:49 1 patch ONCE ONE Administration Methocarbamol 500 mg 02/13/18 23:48 02/14/18 00:56 Robaxin - PO 02/13/18 23:49 500 mg ONCE ONE Administration Medical Decision Making - Medical Decision Making I have assumed care of the patient from Dr. Quiñones, who has discussed the clinical presentation, work-up, and ED course thus far. I have reviewed the patients medical record and ED course and agree with all aspects of care thus far. Patient's pain moderately improved after previous therapies For continued pain, will give Flexeril x1 Plan for D/C w/ PCP and pain f/u Discharge instructions and return precautions given Patient is in agreement and verbalized understanding Dispo: Home 02/14/18 06:25 *DC/Admit/Observation/Transfer Diagnosis at time of Disposition: Chronic low back pain Qualifiers: Back pain laterality: unspecified Sciatica presence: unspecified whether sciatica present Qualified Code(s): M54.5 - Low back pain - Discharge Dispostion Disposition: HOME Condition at time of disposition: Stable Decision to Admit order: No - Referrals Referrals: [facility] [place] [facility] at [place] [Provider Group] Ivan Bo MD [Staff Physician] - - Patient Instructions Printed Discharge Instructions: DI for Chronic Pain -- Adult Additional Instructions: You were seen in the Emergency Room today for evaluation of chronic pain. Please review the handout provided at discharge. Please follow up with your primary care physician. Return to the Emergency Department if you develop fevers, chest pain, or new/ concerning symptoms. - Post Discharge Activity
[2018-02-14] MEDS ORDERED: CYCLOBENZAPRINE HCL 10 MG TABLET (FP) PO ONE (03:49)
[2018-02-14] MEDS ORDERED: CYCLOBENZAPRINE HCL 10 MG TABLET (FP) ONE (03:51)
[2018-02-14 08:13] VITALS: BP 141/90; PULSE 101
== END 2018-02-14 08:33 | disposition home or self-care (01) ==
LOC: JER 22:08
DX: M51.26 Other intervertebral disc displacement, lumbar region (principal); M54.5 Low back pain; I13.0 Hypertensive heart and chronic kidney disease with heart failure and stage 1 through stage 4 chronic kidney disease, or unspecified chronic kidney disease; N18.9 Chronic kidney disease, unspecified; E78.00 Pure hypercholesterolemia, unspecified; E03.9 Hypothyroidism, unspecified; F41.8 Other specified anxiety disorders; F32.9 Major depressive disorder, single episode, unspecified; Z96.653 Presence of artificial knee joint, bilateral
CPT/HCPCS: 99281-25

== ENCOUNTER 2018-02-22 03:05 | Emergency (ER) | payer OTHER ==
[2018-02-22] MEDS ORDERED: KETOROLAC TROMETHAMINE 60 MG/2 ML VIAL IM ONE (03:38)
[2018-02-22] MEDS ORDERED: KETOROLAC TROMETHAMINE 60 MG/2 ML VIAL ONE (03:42)
--- NOTE | 2018-02-22 03:46 | PDOC ---
History of Present Illness - General History Source: Patient Exam Limitations: No Limitations - History of Present Illness Initial Comments: 02/22/18 03:41 The patient is a 62F with a PMH of asthma, COPD, Anemia, CKD, CHF, Chronic Back Pain (L4 L5 herniated discs) with multiple ED visits, HTN, HLD, who presents to the ER with complaints of back pain. The patient describes b/l paraspinal pressure, nonradiating, constant, for 1 day. She denies numbness, tingling, or weakness in her legs. She denies saddle anesthesia, bladder/bowel incontinence, IVDA, fevers, and chills. <Rip Howe - Last Filed: 02/22/18 04:14> <Madisyn Thao - Last Filed: 02/22/18 06:45> - General Stated Complaint: DIFFICULTY BREATHING Time Seen by Provider: 02/22/18 03:23 Past History - Past Medical History Anemia: Yes Asthma: Yes Cancer: No Cardiac Disorders: Yes CVA: No COPD: Yes CHF: No DVT: No Dementia: No Diabetes: No GI Disorders: Yes (bleeding ulcer) Disorders: Yes (KIDNEY STONE;) HTN: Yes Hypercholesterolemia: Yes Kidney Stones: Yes Liver Disease: No Psychiatric Problems: Yes (ANXIETY, DEPRESSION) Seizures: No Thyroid Disease: Yes (hypothyroid) - Surgical History Abdominal Surgery: No Appendectomy: No Cardiac Surgery: No Cholecystectomy: No Lung Surgery: No Neurologic Surgery: No Orthopedic Surgery: Yes (B/L hip replacement (rt 2009; left 2012)) - Immunization History Td Vaccination: Yes TDAP Vaccination: No Immunization Up to Date: Yes - Suicide/Smoking/Psychosocial Hx Smoking Status: Yes Smoking History: Current every day smoker Years of Tobacco Use: 30 Have you smoked in the past 12 months: Yes Number of Cigarettes Smoked Daily: 7 If you are a former smoker, when did you quit?: refused booklet 07/21/14 Cigars Per Day: 0 'Breaking Loose' booklet given: 01/15/18 Hx Alcohol Use: No Drug/Substance Use Hx: No Substance Use Type: None Hx Substance Use Treatment: Yes <Rip Howe - Last Filed: 02/22/18 04:14> <Madisyn Thao - Last Filed: 02/22/18 06:45> - Past Medical History Allergies/Adverse Reactions: Allergies Allergy/AdvReac Type Severity Reaction Status Date / Time levofloxacin [From Levaquin] Allergy Mild Itching Verified 02/22/18 03:47 Home Medications: Ambulatory Orders Cyclobenzaprine HCl [Flexeril -] 10 mg PO HS #7 tablet 01/31/18 Ibuprofen [Motrin -] 400 mg PO QID #20 tablet 02/07/18 Cephalexin [Keflex] 500 mg PO TID #30 capsule 02/10/18 Review of Systems - Review of Systems Able to Perform ROS?: Yes Comments:: 02/22/18 03:44 GENERAL/CONSTITUTIONAL: No fever or chills. No weakness. HEAD, EYES, EARS, NOSE AND THROAT: No change in vision. No ear pain or discharge. No sore throat. CARDIOVASCULAR: No chest pain, palpitations, or lightheadedness. RESPIRATORY: No cough, wheezing, shortness of breath, or hemoptysis. GASTROINTESTINAL: No nausea, vomiting, diarrhea, constipation, or abdominal pain. GENITOURINARY: No dysuria, frequency, hematuria, or change in urination. MUSCULOSKELETAL: Positive for back pain. No joint or muscle swelling or pain. No neck pain. SKIN: No rash or lesions. NEUROLOGIC: No headache, numbness, tingling, focal weakness, loss of consciousness, or change in strength/sensation. Is the patient limited Peruvian proficient: No <Rip Howe - Last Filed: 02/22/18 04:14> *Physical Exam - Physical Exam Comments: 02/22/18 03:44 GENERAL: Well developed, well nourished. Awake and alert. No acute distress. HEENT: Normocephalic, atraumatic. Hearing grossly normal. Moist mucous membranes. PERRLA, EOMI. No conjunctival pallor. Sclera are non-icteric. NECK: Supple. Full ROM. CARDIOVASCULAR: Regular rate and rhythm. No murmurs, rubs, or gallops. PULMONARY: No evidence of respiratory distress. Lungs clear to auscultation bilaterally. No wheezing, rales or rhonchi. ABDOMINAL: Soft. Non-tender. Non-distended. No rebound or guarding. GENITOURINARY: No CVA tenderness bilaterally. MUSCULOSKELETAL: TTP over R SI joint. Normal range of motion at all joints. No bony deformities or tenderness. EXTREMITIES: No cyanosis. No clubbing. No edema. No calf tenderness or swelling. SKIN: Warm and dry. Normal capillary refill. No rashes. No jaundice. NEUROLOGICAL: Alert, awake, appropriate. Cranial nerves 2-12 grossly intact. No deficits to light touch and temperature in face, upper extremities and lower extremities. 5/5 strength in deltoids, biceps, triceps, quadriceps, hamstrings, and gastrocnemius. Normal speech. Gait is normal without ataxia. PSYCHIATRIC: Cooperative. Good eye contact. Appropriate mood and affect. <Rip Howe - Last Filed: 02/22/18 04:14> - Vital Signs Last Vital Signs Temp Pulse Resp BP Pulse Ox 98.1 F 88 18 134/83 97 02/22/18 03:40 02/22/18 03:40 02/22/18 03:40 02/22/18 03:40 02/22/18 03:40 <Madisyn Thao - Last Filed: 02/22/18 06:45> ED Treatment Course - Medications Given in the ED: ED Medications Discontinued Medications Generic Name Dose Route Start Last Admin Trade Name Yosvanyq PRN Reason Stop Dose Admin Ketorolac Tromethamine 60 mg 02/22/18 03:38 02/22/18 03:48 Toradol Injection - IM 02/22/18 03:39 60 mg ONCE ONE Administration <Madisyn Thao - Last Filed: 02/22/18 06:45> Medical Decision Making - Medical Decision Making 02/22/18 03:46 The patient is a 62F with multiple medical problems, well known to our ER, who presents with acutely worsening back pain. The patient has no red flag signs. Will treat with toradol and reassess. 02/22/18 04:14 Pt states she feels better. WIll d/c with PCP f/u. <Rip Howe - Last Filed: 02/22/18 04:14> *DC/Admit/Observation/Transfer - Discharge Dispostion Decision to Admit order: No <Rip Howe - Last Filed: 02/22/18 04:14> <Madisyn Thao - Last Filed: 02/22/18 06:45> Diagnosis at time of Disposition: Back pain Qualifiers: Back pain location: low back pain Chronicity: chronic Back pain laterality: bilateral Sciatica presence: without sciatica Qualified Code(s): M54.5 - Low back pain - Discharge Dispostion Disposition: HOME Condition at time of disposition: Stable - Patient Instructions Printed Discharge Instructions: Back Pain (Alternative Therapy) Additional Instructions: Please follow up with your primary care physician in 2-3 days. Please return to the ER if you have any signs or symptoms of chest pain, shortness of breath, uncontrollable fever, chills, nausea, vomiting, numbness, tingling, or weakness in any part of your body, changes in vision, or slurred speech. Please take your medications as prescribed. Please return to the ER if symptoms persist, worsen, or new symptoms arise.
[2018-02-22 03:47] VITALS: BP 134/83; PULSE 88; TEMP 98.1; BMI 26.2
--- NOTE | 2018-02-22 04:16 | PDOC ---
Attending Attestation - Resident Resident Name: Rip Howe - ED Attending Attestation I have performed the following: I have examined & evaluated the patient, The case was reviewed & discussed with the resident, I agree w/resident's findings & plan - HPI HPI: 02/23/18 06:01 Pt comes with chronic back pain. - Physicial Exam PE: 02/23/18 06:01 Agree with resident exam - Medical Decision Making 02/23/18 06:02 Pt treated in the ER and she is feeling better and she will be sent home with analgesia.
== END 2018-02-22 07:04 | disposition home or self-care (01) ==
LOC: JER 03:05
DX: M62.830 Muscle spasm of back (principal); I10 Essential (primary) hypertension; E78.00 Pure hypercholesterolemia, unspecified; E03.9 Hypothyroidism, unspecified; J45.909 Unspecified asthma, uncomplicated; Z86.2 Personal history of diseases of the blood and blood-forming organs and certain disorders involving the immune mechanism; F41.9 Anxiety disorder, unspecified; Z96.643 Presence of artificial hip joint, bilateral
CPT/HCPCS: 99282-25

== ENCOUNTER 2018-02-23 01:25 | Emergency (ER) | payer OTHER ==
[2018-02-23 01:19] VITALS: BP 137/91; PULSE 91; TEMP 98; BMI 23.0
--- NOTE | 2018-02-23 04:03 | PDOC ---
History of Present Illness - General Chief Complaint: Asthma Stated Complaint: ASTHMA Time Seen by Provider: 02/23/18 03:53 History Source: Patient, Old Records Exam Limitations: No Limitations - History of Present Illness Initial Comments: 02/23/18 04:01 CHIEF COMPLAINT: Lower back pain HISTORY OF PRESENT ILLNESS: 62-year-old woman history of asthma, COPD, anemia, CAD, CHF, chronic back pain (herniated disks at L4-L5), hypertension, hyperlipidemia presents emergency Department with complaints of acute on chronic back pain. Patient states the pain is nonradiating is worse on the right compared to the left. She denies any numbness or tingling to her lower extremities, saddle anesthesia, incontinence of bladder or bowel, urinary retention, IV drug use, foot drop or history of cancer. REVIEW OF SYSTEMS: GENERAL: Afebrile, denies any weakness RESPIRATORY: No cough, wheezing, or hemoptysis. CARDIAC: No chest pain or shortness of breath MUSCULOSKELETAL: Pain to generalized lower back. No point tenderness. Pain worse on right than left. SKIN : No erythema, no bruising, no deformity. GI/: Denies any abdominal pain, no urinary difficulty, incontinence or urinary retention. RECTAL: Denies any difficulty this A.m. NEUROLOGICAL: Denies any numbness or tingling. No neurosensory deficits. PHYSICAL EXAM: GENERAL: The patient is awake, alert, and fully oriented, in no acute distress. RESPIRATORY: Lungs clear bilaterally, no rhonchi wheezes or crackles CARDIAC: S1-S2 audible, no murmur rub or gallop MUSCULOSKELETAL: Pain to generalized lower back, nonradiating, no tingling or sensory deficit. Less than 2 second cap refill, +2 pedal pulses. GI/: Abdomen soft, nontender, nondistended. No rebound tenderness. No masses palpable. MUSCULOSKELETAL: No spinal point tenderness. Normal reflexive and no deficits to sensation or strength. Right paraspinous muscle tenderness without spasm. RECTAL: Deferred patient with no neurological findings SKIN: Warm, Dry, normal turgor, no erythema, no edema no bruising. Past History - Past Medical History Allergies/Adverse Reactions: Allergies Allergy/AdvReac Type Severity Reaction Status Date / Time levofloxacin [From Levaquin] Allergy Mild Itching Verified 02/23/18 01:17 EST Home Medications: Ambulatory Orders Cyclobenzaprine HCl [Flexeril -] 10 mg PO HS #7 tablet 01/31/18 Ibuprofen [Motrin -] 400 mg PO QID #20 tablet 02/07/18 Cephalexin [Keflex] 500 mg PO TID #30 capsule 02/10/18 Anemia: Yes Asthma: Yes Cancer: No Cardiac Disorders: Yes CVA: No COPD: Yes CHF: No DVT: No Dementia: No Diabetes: No GI Disorders: Yes (bleeding ulcer) Disorders: Yes (KIDNEY STONE;) HTN: Yes Hypercholesterolemia: Yes Kidney Stones: Yes Liver Disease: No Psychiatric Problems: Yes (ANXIETY, DEPRESSION) Seizures: No Thyroid Disease: Yes (hypothyroid) - Surgical History Abdominal Surgery: No Appendectomy: No Cardiac Surgery: No Cholecystectomy: No Lung Surgery: No Neurologic Surgery: No Orthopedic Surgery: Yes (B/L hip replacement (rt 2009; left 2012)) - Immunization History Td Vaccination: Yes TDAP Vaccination: No Immunization Up to Date: Yes - Suicide/Smoking/Psychosocial Hx Smoking Status: Yes Smoking History: Unknown if ever smoked Years of Tobacco Use: 30 Have you smoked in the past 12 months: No Number of Cigarettes Smoked Daily: 7 If you are a former smoker, when did you quit?: refused booklet 07/21/14 Cigars Per Day: 0 Information on smoking cessation initiated: No 'Breaking Loose' booklet given: 01/15/18 Hx Alcohol Use: No Drug/Substance Use Hx: No Substance Use Type: None Hx Substance Use Treatment: Yes Trauma Specific PMHX - Complaint Specific PMHX Arthritis: Yes (with osteoporosis) Back Injury: No *Physical Exam - Vital Signs Last Vital Signs Temp Pulse Resp BP Pulse Ox 98.0 F 91 H 20 137/91 98 02/23/18 01:17 EST 02/23/18 01:17 EST 02/23/18 01:17 EST 02/23/18 01:17 EST 02/23/18 01:17 EST Medical Decision Making - Medical Decision Making 02/23/18 04:08 A/P: 62-year-old woman with acute on chronic back pain Naprosyn 500 mg orally now Reassess Likely discharge *DC/Admit/Observation/Transfer Diagnosis at time of Disposition: Chronic low back pain Qualifiers: Back pain laterality: right Sciatica presence: without sciatica Qualified Code( s): M54.5 - Low back pain; G89.29 - Other chronic pain - Discharge Dispostion Disposition: HOME Condition at time of disposition: Stable Decision to Admit order: No - Referrals - Patient Instructions Additional Instructions: Take Tylenol as needed for pain. Follow manufacturers instructions for appropriate dosage. Warm moist heat applied to your back may help alleviate pain. Return to emergency department for numbness or tingling to the foot, worsening pain, or any other concerns. Thank you very much for choosing us to provide your emergent healthcare needs. - Post Discharge Activity
[2018-02-23] MEDS ORDERED: NAPROXEN 500 MG TABLET (FP) PO ONE (04:08)
[2018-02-23] MEDS ORDERED: NAPROXEN 500 MG TABLET (FP) ONE (04:18)
== END 2018-02-23 05:03 | disposition home or self-care (01) ==
LOC: JER 01:25
DX: M54.5 Low back pain (principal); G89.29 Other chronic pain; I25.10 Atherosclerotic heart disease of native coronary artery without angina pectoris; I11.0 Hypertensive heart disease with heart failure; I50.9 Heart failure, unspecified; J45.909 Unspecified asthma, uncomplicated; J44.9 Chronic obstructive pulmonary disease, unspecified; F41.8 Other specified anxiety disorders; F32.9 Major depressive disorder, single episode, unspecified; Z96.643 Presence of artificial hip joint, bilateral; D64.9 Anemia, unspecified; E78.5 Hyperlipidemia, unspecified
CPT/HCPCS: 99281-25

== ENCOUNTER 2018-02-23 07:15 | Emergency (ER) | payer OTHER ==
[2018-02-23 07:28] VITALS: BP 144/95; PULSE 82; TEMP 98.3; BMI 23.8
--- NOTE | 2018-02-23 07:53 | PDOC ---
History of Present Illness - General Chief Complaint: Pain Stated Complaint: PAIN Time Seen by Provider: 02/23/18 07:53 History Source: Patient Exam Limitations: No Limitations - History of Present Illness Initial Comments: 62 yo F well known to this ED presents with low back pain. She was evaluated on prior shift, was waiting in waiting room for her medicaid cab, then asked to be triaged a second time. She is requesting percocet for pain stating that she ran out. She is asking for something for pain. No weakness, numbness. This is unchanged from her chronic pain. She does not reliably follow up with anyone for pain management. Past History - Past Medical History Allergies/Adverse Reactions: Allergies Allergy/AdvReac Type Severity Reaction Status Date / Time levofloxacin [From Levaquin] Allergy Mild Itching Verified 02/23/18 07:28 Home Medications: Ambulatory Orders Cyclobenzaprine HCl [Flexeril -] 10 mg PO HS #7 tablet 01/31/18 Ibuprofen [Motrin -] 400 mg PO QID #20 tablet 02/07/18 Ibuprofen [Motrin -] 400 mg PO QID PRN #28 tablet 02/23/18 Methocarbamol [Robaxin -] 500 mg PO BID PRN #14 tablet 02/23/18 Anemia: Yes Asthma: Yes Cancer: No Cardiac Disorders: Yes CVA: No COPD: Yes CHF: No DVT: No Dementia: No Diabetes: No GI Disorders: Yes (bleeding ulcer) Disorders: Yes (KIDNEY STONE;) HTN: Yes Hypercholesterolemia: Yes Kidney Stones: Yes Liver Disease: No Psychiatric Problems: Yes (ANXIETY, DEPRESSION) Seizures: No Thyroid Disease: Yes (hypothyroid) - Surgical History Abdominal Surgery: No Appendectomy: No Cardiac Surgery: No Cholecystectomy: No Lung Surgery: No Neurologic Surgery: No Orthopedic Surgery: Yes (B/L hip replacement (rt 2009; left 2012)) - Immunization History Td Vaccination: Yes TDAP Vaccination: No Immunization Up to Date: Yes - Suicide/Smoking/Psychosocial Hx Smoking Status: Yes Smoking History: Current every day smoker Years of Tobacco Use: 30 Have you smoked in the past 12 months: Yes Number of Cigarettes Smoked Daily: 7 If you are a former smoker, when did you quit?: refused booklet 07/21/14 Cigars Per Day: 0 Information on smoking cessation initiated: No 'Breaking Loose' booklet given: 01/15/18 Hx Alcohol Use: No Drug/Substance Use Hx: No Substance Use Type: None Hx Substance Use Treatment: Yes Review of Systems - Review of Systems Able to Perform ROS?: Yes Comments:: GENERAL/CONSTITUTIONAL: No fever or chills. No weakness. HEAD, EYES, EARS, NOSE AND THROAT: No change in vision. No ear pain or discharge. No sore throat. CARDIOVASCULAR: No chest pain or shortness of breath. RESPIRATORY: No cough, wheezing, or hemoptysis. GASTROINTESTINAL: No nausea, vomiting, diarrhea or constipation. GENITOURINARY: No dysuria, frequency, or change in urination. MUSCULOSKELETAL: No joint or muscle swelling or pain. No neck pain. +Back pain. SKIN: No rash NEUROLOGIC: No headache, vertigo, loss of consciousness, or change in strength/ sensation. ENDOCRINE: No increased thirst. No abnormal weight change. HEMATOLOGIC/LYMPHATIC: No anemia, easy bleeding, or history of blood clots. ALLERGIC/IMMUNOLOGIC: No hives or skin allergy. *Physical Exam - Vital Signs Last Vital Signs Temp Pulse Resp BP Pulse Ox 98.3 F 82 18 144/95 99 02/23/18 07:17 02/23/18 07:17 02/23/18 07:17 02/23/18 07:17 02/23/18 07:17 - Physical Exam Comments: GENERAL: Awake, alert, and fully oriented, in no acute distress HEAD: No signs of trauma EYES: PERRLA, EOMI, sclera anicteric, conjunctiva clear ENT: Auricles normal inspection, hearing grossly normal, nares patent, oropharynx clear without exudates. Moist mucosa NECK: Normal ROM, supple, no lymphadenopathy, JVD, or masses LUNGS: Breath sounds equal, clear to auscultation bilaterally. No wheezes, and no crackles HEART: Regular rate and rhythm, normal S1 and S2, no murmurs, rubs or gallops ABDOMEN: Soft, nontender, normoactive bowel sounds. No guarding, no rebound. No masses EXTREMITIES: Normal range of motion, no edema. No clubbing or cyanosis. No cords, erythema, or tenderness NEUROLOGICAL: Cranial nerves II through XII grossly intact. Normal speech, normal gait. Motor and sensation intact. SKIN: Warm, Dry, normal turgor, no rashes or lesions noted. *DC/Admit/Observation/Transfer Diagnosis at time of Disposition: Muscle spasm of back - Discharge Dispostion Disposition: HOME Condition at time of disposition: Stable Decision to Admit order: No - Prescriptions Prescriptions: Ibuprofen [Motrin -] 400 mg PO QID PRN #28 tablet PRN Reason: Pain Methocarbamol [Robaxin -] 500 mg PO BID PRN #14 tablet PRN Reason: Muscle Spasms - Referrals - Patient Instructions Printed Discharge Instructions: DI for Low Back Pain - Post Discharge Activity
[2018-02-23] MEDS ORDERED: METHOCARBAMOL 500 MG TABLET PO ONE (07:58)
== END 2018-02-23 08:37 | disposition home or self-care (01) ==
LOC: JER 07:15
DX: M62.830 Muscle spasm of back (principal); I10 Essential (primary) hypertension; E03.9 Hypothyroidism, unspecified; J45.909 Unspecified asthma, uncomplicated; J44.9 Chronic obstructive pulmonary disease, unspecified; F41.8 Other specified anxiety disorders; F32.9 Major depressive disorder, single episode, unspecified; Z86.2 Personal history of diseases of the blood and blood-forming organs and certain disorders involving the immune mechanism; Z96.643 Presence of artificial hip joint, bilateral; Z87.19 Personal history of other diseases of the digestive system; Z87.442 Personal history of urinary calculi
CPT/HCPCS: 99282-25

== ENCOUNTER 2018-02-26 21:59 | Emergency (ER) | payer OTHER ==
[2018-02-26 22:09] VITALS: TEMP 98.5; BMI 23.8
[2018-02-27] MEDS ORDERED: LIDOCAINE 5% TOPICAL PATCH TP ONE (02:32)
[2018-02-27] MEDS ORDERED: ACETAMINOPHEN 325 MG TABLET (FP) PO ONE (02:32)
[2018-02-27] MEDS ORDERED: METHOCARBAMOL 500 MG TABLET PO ONE (02:32)
[2018-02-27] MEDS ORDERED: METHOCARBAMOL 500 MG TABLET ONE (02:53)
[2018-02-27] MEDS ORDERED: ACETAMINOPHEN 325 MG TABLET (FP) ONE (02:53)
[2018-02-27] MEDS ORDERED: LIDOCAINE 5% TOPICAL PATCH ONE (02:53)
--- NOTE | 2018-02-27 03:15 | PDOC ---
History of Present Illness - General Chief Complaint: Pain Stated Complaint: PAIN Time Seen by Provider: 02/27/18 02:10 History Source: Patient Exam Limitations: No Limitations - History of Present Illness Initial Comments: 62 y/o F hx of asthma, COPD, anemia, CHF, CKD, HTN, HLD, PUD, chronic back pain (with L4-L5 herniated disc; recent lumbar MRI 11/2017 showed chronic compression fx of L1 as well) presents with acute on chronic back pain radiating down RLE x2-3 days. Patient with multiple visits to ED for similar complaints (last visit 02/23/18). Denies any falls. Patient states back pain feels similar to the past; only tried Tylenol and warm baths at home without much relief. Patient was discharged on Robaxin last time but patient is unable to recall this medication name and states she never got it. Denies fever, chills, sob, cp, abd pain, n/v/d, urinary complaints, saddle/groin paresthesia, bowel/bladder incontinence, weakness of extremities, numbness/tingling. Patient is able to walk using cane. 02/27/18 03:14 Past History - Past Medical History Allergies/Adverse Reactions: Allergies Allergy/AdvReac Type Severity Reaction Status Date / Time levofloxacin [From Levaquin] Allergy Mild Itching Verified 02/26/18 22:09 Home Medications: Ambulatory Orders Cyclobenzaprine HCl [Flexeril -] 10 mg PO HS #7 tablet 01/31/18 Ibuprofen [Motrin -] 400 mg PO QID #20 tablet 02/07/18 Ibuprofen [Motrin -] 400 mg PO QID PRN #28 tablet 02/23/18 Methocarbamol [Robaxin -] 500 mg PO BID PRN #14 tablet 02/23/18 Lidocaine 5% Patch [Lidoderm -] 1 patch TP DAILY #7 patch 02/27/18 Methocarbamol [Robaxin -] 500 mg PO BID #14 tablet 02/27/18 Anemia: Yes Asthma: Yes Cancer: No Cardiac Disorders: Yes CVA: No COPD: Yes CHF: No DVT: No Dementia: No Diabetes: No GI Disorders: Yes (bleeding ulcer) Disorders: Yes (KIDNEY STONE;) HTN: Yes Hypercholesterolemia: Yes Kidney Stones: Yes Liver Disease: No Psychiatric Problems: Yes (ANXIETY, DEPRESSION) Seizures: No Thyroid Disease: Yes (hypothyroid) - Surgical History Abdominal Surgery: No Appendectomy: No Cardiac Surgery: No Cholecystectomy: No Lung Surgery: No Neurologic Surgery: No Orthopedic Surgery: Yes (B/L hip replacement (rt 2009; left 2012)) - Immunization History Td Vaccination: Yes TDAP Vaccination: No Immunization Up to Date: Yes - Suicide/Smoking/Psychosocial Hx Smoking Status: Yes Smoking History: Current every day smoker Years of Tobacco Use: 30 Have you smoked in the past 12 months: Yes Number of Cigarettes Smoked Daily: 7 If you are a former smoker, when did you quit?: refused booklet 07/21/14 Cigars Per Day: 0 Information on smoking cessation initiated: No 'Breaking Loose' booklet given: 01/15/18 Hx Alcohol Use: No Drug/Substance Use Hx: No Substance Use Type: None Hx Substance Use Treatment: Yes Review of Systems - Review of Systems Comments:: See HPI 02/27/18 04:24 *Physical Exam - Vital Signs Last Vital Signs Temp Pulse Resp BP Pulse Ox 98.5 F 90 18 139/76 98 02/26/18 22:05 02/26/18 22:05 02/26/18 22:05 02/26/18 22:05 02/26/18 22:05 - Physical Exam General Appearance: No: Apparent Distress Neck: positive: Supple Respiratory/Chest: positive: Lungs Clear, Normal Breath Sounds. negative: Respiratory Distress Cardiovascular: positive: Regular Rhythm, Regular Rate, S1, S2. negative: Murmur Gastrointestinal/Abdominal: positive: Normal Bowel Sounds, Soft. negative: Tender, Distended, Guarding, Rebound Musculoskeletal: positive: Vertebral Tenderness, Other (+TTP along lumbar spine and paravertebral muscles). negative: CVA Tenderness Extremity: positive: Normal Inspection. negative: Pedal Edema, Calf Tenderness Neurologic: positive: diffuser operator II-XII NML intact, Fully Oriented, Alert, Normal Mood/ Affect, Motor Strength 5/5, Other (Negative SLR). negative: Numbness, Sensory Deficit ED Treatment Course - Medications Given in the ED: ED Medications Discontinued Medications Generic Name Dose Route Start Last Admin Trade Name Freq PRN Reason Stop Dose Admin Acetaminophen 650 mg 02/27/18 02:32 02/27/18 02:58 Tylenol - PO 02/27/18 02:33 650 mg ONCE ONE Administration Lidocaine 1 patch 02/27/18 02:32 02/27/18 02:58 Lidoderm Patch - TP 02/27/18 02:33 1 patch ONCE ONE Administration Methocarbamol 1,000 mg 02/27/18 02:32 02/27/18 02:58 Robaxin - PO 02/27/18 02:33 1,000 mg ONCE ONE Administration Medical Decision Making - Medical Decision Making 62 y/o F presents with acute on chronic back pain. PE reassuring with no red flags raised for cauda equina. Unlikely fracture given no recent fall/trauma. Could possibly be sciatic pain. Patient was given Tylenol (NSAIDs held due to hx of bleeding peptic ulcer), Robaxin and Lidocaine patch. She was reassessed and noted to be feeling a lot better. Rx for Robaxin and Lidocaine patch sent to pharmacy. Patient advised to f/u with her PCP. Return precautions discussed. 02/27/18 03:15 *DC/Admit/Observation/Transfer Diagnosis at time of Disposition: Acute exacerbation of chronic low back pain - Discharge Dispostion Disposition: HOME Condition at time of disposition: Improved Decision to Admit order: No - Prescriptions Prescriptions: Lidocaine 5% Patch [Lidoderm -] 1 patch TP DAILY #7 patch Methocarbamol [Robaxin -] 500 mg PO BID #14 tablet - Referrals - Patient Instructions Printed Discharge Instructions: Managing Chronic Low Back Pain, DI for Low Back Pain Additional Instructions: Thank you for choosing [facility]. It was a pleasure taking care of you. Likely your back pain could be from sciatica You may take Tylenol 650 mg every 4 hours by mouth as needed for mild to moderate pain. Do not take more than 4000 mg of Tylenol in 1 day. Use Robaxin as needed for muscle spasms. This medication can make you drowsy. Apply lidocaine patch as needed to help with pain Return to the Emergency Department if your symptoms worsen or persist, you have fever, shortness of breath, chest pain, severe abdominal pain, vomiting, dizziness, weakness of extremities (arms and/or legs), unable to walk, unable to control your bowel or bladder movements or other concerning symptoms. - Post Discharge Activity
--- NOTE | 2018-02-27 05:22 | PDOC ---
*Physical Exam - Vital Signs Last Vital Signs Temp Pulse Resp BP Pulse Ox 98.5 F 90 18 139/76 98 02/26/18 22:05 02/26/18 22:05 02/26/18 22:05 02/26/18 22:05 02/26/18 22:05 ED Treatment Course - Medications Given in the ED: ED Medications Discontinued Medications Generic Name Dose Route Start Last Admin Trade Name Rip PRN Reason Stop Dose Admin Acetaminophen 650 mg 02/27/18 02:32 02/27/18 02:58 Tylenol - PO 02/27/18 02:33 650 mg ONCE ONE Administration Lidocaine 1 patch 02/27/18 02:32 02/27/18 02:58 Lidoderm Patch - TP 02/27/18 02:33 1 patch ONCE ONE Administration Methocarbamol 1,000 mg 02/27/18 02:32 02/27/18 02:58 Robaxin - PO 02/27/18 02:33 1,000 mg ONCE ONE Administration Medical Decision Making - Medical Decision Making 02/27/18 05:21 62F with acute exacerbation of chronic back px, no concerning factors non-focal exam analgesia re-eval likely discharge *DC/Admit/Observation/Transfer Diagnosis at time of Disposition: Acute exacerbation of chronic low back pain - Discharge Dispostion Disposition: HOME Condition at time of disposition: Improved - Prescriptions Prescriptions: RX: Lidocaine 5% Patch [Lidoderm -] 1 patch TP DAILY #7 patch Methocarbamol [Robaxin -] 500 mg PO BID #14 tablet - Referrals - Patient Instructions Printed Discharge Instructions: Managing Chronic Low Back Pain, DI for Low Back Pain Additional Instructions: Thank you for choosing [facility]. It was a pleasure taking care of you. Likely your back pain could be from sciatica You may take Tylenol 650 mg every 4 hours by mouth as needed for mild to moderate pain. Do not take more than 4000 mg of Tylenol in 1 day. Use Robaxin as needed for muscle spasms. This medication can make you drowsy. Apply lidocaine patch as needed to help with pain Return to the Emergency Department if your symptoms worsen or persist, you have fever, shortness of breath, chest pain, severe abdominal pain, vomiting, dizziness, weakness of extremities (arms and/or legs), unable to walk, unable to control your bowel or bladder movements or other concerning symptoms. - Post Discharge Activity
[2018-02-27 07:12] VITALS: BP 110/78; PULSE 89
[2018-02-27] MEDS ORDERED: LIDOCAINE PATCH REMOVAL MC SCH (22:00)
== END 2018-02-27 07:11 | disposition home or self-care (01) ==
LOC: JER 21:59
DX: M54.5 Low back pain (principal); G89.29 Other chronic pain; I25.10 Atherosclerotic heart disease of native coronary artery without angina pectoris; I13.0 Hypertensive heart and chronic kidney disease with heart failure and stage 1 through stage 4 chronic kidney disease, or unspecified chronic kidney disease; N18.9 Chronic kidney disease, unspecified; I50.9 Heart failure, unspecified; J44.9 Chronic obstructive pulmonary disease, unspecified; D64.9 Anemia, unspecified; M51.26 Other intervertebral disc displacement, lumbar region; F41.8 Other specified anxiety disorders; E03.9 Hypothyroidism, unspecified; Z96.643 Presence of artificial hip joint, bilateral
CPT/HCPCS: 99281-25

== ENCOUNTER 2018-03-02 10:37 | Emergency (ER) | payer OTHER ==
[2018-03-02 10:53] VITALS: BP 145/83; PULSE 82; TEMP 98.4; BMI 22.8
[2018-03-02] MEDS ORDERED: ACETAMINOPHEN 325 MG TABLET (FP) PO ONE (11:18)
[2018-03-02] MEDS ORDERED: LIDOCAINE 5% TOPICAL PATCH TP ONE (11:18)
--- NOTE | 2018-03-02 11:19 | PDOC ---
History of Present Illness - General Chief Complaint: Back Pain Stated Complaint: BACK PAIN Time Seen by Provider: 03/02/18 11:05 History Source: Patient Exam Limitations: No Limitations - History of Present Illness Initial Comments: 03/02/18 11:19 62y F history of asthma, COPD, CHF, CAD, hypertension, lipidemia, PUD, chronic back pain ((with L4-L5 herniated disc; recent lumbar MRI 11/2017 showed chronic compression fx of L1) pw with acute on chronic back pain. She was cheer several days ago with a similar complaint as been no change patient notes some mild improvement with her muscle relaxants and Lidoderm however she states she is not using consistently. Denies any fever, chills, urinary bowel incontinence, saddle groin paresthesias, numbness tingling, weakness, dysuria/hematurai. States she has never followed up with any other specialists as the pain "has gotten better". Denies any chest pain, shortness of breath, upper back pain, headache, dizziness , palpitations Past History - Past Medical History Allergies/Adverse Reactions: Allergies Allergy/AdvReac Type Severity Reaction Status Date / Time levofloxacin [From Levaquin] Allergy Mild Itching Verified 03/02/18 10:53 Home Medications: Ambulatory Orders Cyclobenzaprine HCl [Flexeril -] 10 mg PO HS #7 tablet 01/31/18 Ibuprofen [Motrin -] 400 mg PO QID #20 tablet 02/07/18 Ibuprofen [Motrin -] 400 mg PO QID PRN #28 tablet 02/23/18 Methocarbamol [Robaxin -] 500 mg PO BID PRN #14 tablet 02/23/18 Methocarbamol [Robaxin -] 500 mg PO BID #14 tablet 02/27/18 Lidocaine 5% Patch [Lidoderm -] 1 patch TP DAILY #7 patch 03/02/18 Anemia: Yes Asthma: Yes Cancer: No Cardiac Disorders: Yes CVA: No COPD: Yes CHF: No DVT: No Dementia: No Diabetes: No GI Disorders: Yes (bleeding ulcer) Disorders: Yes (KIDNEY STONE;) HTN: Yes Hypercholesterolemia: Yes Kidney Stones: Yes Liver Disease: No Psychiatric Problems: Yes (ANXIETY, DEPRESSION) Seizures: No Thyroid Disease: Yes (hypothyroid) - Surgical History Abdominal Surgery: No Appendectomy: No Cardiac Surgery: No Cholecystectomy: No Lung Surgery: No Neurologic Surgery: No Orthopedic Surgery: Yes (B/L hip replacement (rt 2009; left 2012)) - Immunization History Td Vaccination: Yes TDAP Vaccination: No Immunization Up to Date: Yes - Suicide/Smoking/Psychosocial Hx Smoking Status: Yes Smoking History: Never smoked Years of Tobacco Use: 30 Have you smoked in the past 12 months: Yes Number of Cigarettes Smoked Daily: 7 If you are a former smoker, when did you quit?: refused booklet 07/21/14 Cigars Per Day: 0 Information on smoking cessation initiated: No 'Breaking Loose' booklet given: 01/15/18 Hx Alcohol Use: No Drug/Substance Use Hx: No Substance Use Type: None Hx Substance Use Treatment: Yes Trauma Specific PMHX - Complaint Specific PMHX Arthritis: Yes (with osteoporosis) Back Injury: No Review of Systems - Review of Systems Able to Perform ROS?: Yes Comments:: 03/02/18 11:21 Constitutional - no reported Fever, Chills, HEENT: no reported vision changes, sore throat Respiratory: no reported cough, sob, hemoptysis Cardiac: no reported chest pain, palpitations, light headedness, leg swelling Abd/GI: no reported abd pain, nausea, vomiting, blood per rectum, melena, diarrhea : no reported dysuria, frequency, discharge Musculskelatal - +back pain no reported , joint swelling skin - no reported bruising, erythema, rash neurological: no reported headache, numbness, focal weakness, tingling, ataxia, hematologic: no reported easy bruising, easy bleeding *Physical Exam - Vital Signs Last Vital Signs Temp Pulse Resp BP Pulse Ox 98.4 F 82 16 145/83 100 03/02/18 10:40 03/02/18 10:40 03/02/18 10:40 03/02/18 10:40 03/02/18 10:40 - Physical Exam Comments: 03/02/18 11:32 GENERAL: The patient is awake, alert, and fully oriented, Nontoxic - in no acute distress. HEAD: Normocephalic, atraumatic. HEART: Regular rate and rhythm, normal S1 and S2 without murmur, rub or gallop. ABDOMEN: Soft, nontender, normoactive bowel sounds. No guarding, no rebound. . No CVA tenderness EXTREMITIES: Normal range of motion, no edema. No clubbing or cyanosis. No cords, erythema, or tenderness. BACK: mild lumbar paraspinal tenderness, +hypertrophy of R lumbar parapsinal muscles NEUROLOGICAL: No facial assymetry, Normal speech, moving all 4 extremities spontaneously and symmetrically PSYCH: Normal mood, normal affect. SKIN: Warm, Dry, normal turgor, no rashes appreciated Medical Decision Making - Medical Decision Making 03/02/18 11:33 Acute on chronic back pain, no red flags for cauda equina or nerve impingement Will give Lidoderm patch and tylenol anticiptae dc with pmd fu 03/02/18 13:49 pt feeling better will dc with pmd fu return precutions were discussed I discussed the physical exam findings, ancillary test results and final diagnoses with the patient. I answered all of the patient's questions. The patient was satisfied with the care received and felt comfortable with the discharge plan and treatment plan. The patient will call their primary care physician within 24 hours to arrange follow-up and will return to the Emergency Department with any new, persistent or worsening symptoms. *DC/Admit/Observation/Transfer Diagnosis at time of Disposition: Back pain Qualifiers: Back pain location: low back pain Chronicity: chronic Back pain laterality: right Sciatica presence: without sciatica Qualified Code(s): M54.5 - Low back pain; G89.29 - Other chronic pain - Discharge Dispostion Disposition: HOME Condition at time of disposition: Improved Decision to Admit order: No - Prescriptions Prescriptions: Lidocaine 5% Patch [Lidoderm -] 1 patch TP DAILY #7 patch - Referrals [place] [facility] [place] [facility] [place] Group] - Patient Instructions Printed Discharge Instructions: DI for Low Back Pain Additional Instructions: Return to the emergency department immediately with ANY new, persistent or worsening symptoms including numbness, tingling, weakness, fevers or any other concerns. Take tylenol(650mg) every 6 hours for 2 days. Apply the lidoderm patches to your back for 12 hrs. Apply heat to your sore muscles. You MUST call and follow up with your doctor in 3-4 days for further evaluation of your symptoms. Your emergency department visit is not complete without a followup with your doctor for reevaluation.. Results were discussed with you. Please make sure your doctor reviews the results of your emergency evaluation. Print Language: FAROESE - Post Discharge Activity
[2018-03-02] MEDS ORDERED: ALBUTEROL SO4 2.5/IPRATROPIUM 0.5 INH SOL 3 ML VIAL.NEB. NEB ONE ×2 (12:46→13:16)
[2018-03-02] MEDS ORDERED: ACETAMINOPHEN 325 MG TABLET (FP) ONE (13:16)
[2018-03-02] MEDS ORDERED: LIDOCAINE 5% TOPICAL PATCH ONE (13:16)
[2018-03-02] MEDS ORDERED: LIDOCAINE PATCH REMOVAL MC SCH (22:00)
== END 2018-03-02 15:20 | disposition home or self-care (01) ==
LOC: JER 10:37
PROC: 3E0F7GC Introduction of Other Therapeutic Substance into Respiratory Tract, Via Natural or Artificial Opening (ICD-10-PCS; principal; 2018-03-02)
DX: M54.5 Low back pain (principal); I25.10 Atherosclerotic heart disease of native coronary artery without angina pectoris; I11.0 Hypertensive heart disease with heart failure; I50.9 Heart failure, unspecified; J45.909 Unspecified asthma, uncomplicated; J44.9 Chronic obstructive pulmonary disease, unspecified; E78.00 Pure hypercholesterolemia, unspecified; E03.9 Hypothyroidism, unspecified; F41.8 Other specified anxiety disorders; Z96.643 Presence of artificial hip joint, bilateral
CPT/HCPCS: 94640; 99281-25

== ENCOUNTER 2018-03-05 21:21 | Emergency (ER) | payer OTHER ==
[2018-03-05] MEDS ORDERED: ACETAMINOPHEN 500 MG TABLET (FP) PO ONE (21:28)
--- NOTE | 2018-03-05 21:29 | PDOC ---
Rapid Medical Evaluation Time Seen by Provider: 03/05/18 21:26 Medical Evaluation: Allergies Allergy/AdvReac Type Severity Reaction Status Date / Time levofloxacin [From Levaquin] Allergy Mild Itching Verified 03/02/18 10:53 03/05/18 21:27 I have performed a brief in-person evaluation of this patient. The patient presents with a chief complaint of: chronic back pain Pertinent physical exam findings: lower back tenderness I have ordered the following: Tylenol, urine The patient will proceed to the ED for further evaluation. Discharge Disposition - Diagnosis Chronic low back pain - Referrals - Patient Instructions - Post Discharge Activity
[2018-03-05 21:41] VITALS: BP 152/81; PULSE 91; TEMP 97.3; BMI 23.8
[2018-03-05] MEDS ORDERED: ACETAMINOPHEN 325 MG TABLET (FP) ONE (21:48)
--- NOTE | 2018-03-05 22:09 | PDOC ---
History of Present Illness - General Chief Complaint: Back Pain Stated Complaint: BACK PAIN Time Seen by Provider: 03/05/18 21:26 - History of Present Illness Initial Comments: 03/05/18 22:07 62-year-old female presents for evaluation of lower back pain which has been chronic for her there is no change in character no radicular symptoms no loss of bowel or bladder function Past History - Past Medical History Allergies/Adverse Reactions: Allergies Allergy/AdvReac Type Severity Reaction Status Date / Time levofloxacin [From Levaquin] Allergy Mild Itching Verified 03/05/18 21:34 Home Medications: Ambulatory Orders Cyclobenzaprine HCl [Flexeril -] 10 mg PO HS #7 tablet 01/31/18 Ibuprofen [Motrin -] 400 mg PO QID #20 tablet 02/07/18 Ibuprofen [Motrin -] 400 mg PO QID PRN #28 tablet 02/23/18 Methocarbamol [Robaxin -] 500 mg PO BID PRN #14 tablet 02/23/18 Methocarbamol [Robaxin -] 500 mg PO BID #14 tablet 02/27/18 Lidocaine 5% Patch [Lidoderm -] 1 patch TP DAILY #7 patch 03/02/18 Anemia: Yes Asthma: Yes Cancer: No Cardiac Disorders: Yes CVA: No COPD: Yes CHF: No DVT: No Dementia: No Diabetes: No GI Disorders: Yes (bleeding ulcer) Disorders: Yes (KIDNEY STONE;) HTN: Yes Hypercholesterolemia: Yes Kidney Stones: Yes Liver Disease: No Psychiatric Problems: Yes (ANXIETY, DEPRESSION) Seizures: No Thyroid Disease: Yes (hypothyroid) - Surgical History Abdominal Surgery: No Appendectomy: No Cardiac Surgery: No Cholecystectomy: No Lung Surgery: No Neurologic Surgery: No Orthopedic Surgery: Yes (B/L hip replacement (rt 2009; left 2012)) - Immunization History Td Vaccination: Yes TDAP Vaccination: No Immunization Up to Date: Yes - Suicide/Smoking/Psychosocial Hx Smoking Status: Yes Smoking History: Never smoked Years of Tobacco Use: 30 Have you smoked in the past 12 months: No Number of Cigarettes Smoked Daily: 7 If you are a former smoker, when did you quit?: refused booklet 07/21/14 Cigars Per Day: 0 Information on smoking cessation initiated: No 'Breaking Loose' booklet given: 01/15/18 Hx Alcohol Use: No Drug/Substance Use Hx: No Substance Use Type: None Hx Substance Use Treatment: Yes Review of Systems - Review of Systems Musculoskeletal: Yes: Back Pain *Physical Exam - Vital Signs Last Vital Signs Temp Pulse Resp BP Pulse Ox 97.3 F L 91 H 16 152/81 100 03/05/18 21:33 03/05/18 21:33 03/05/18 21:33 03/05/18 21:33 03/05/18 21:33 - Physical Exam Comments: 03/05/18 22:07 HEAD: NC/AT EYES: Conjuntiva clear CARDIAC: S1 S2 LUNGS: CTA Full and Equal breath sounds ABDOMEN: Soft NT ND MS: Full ROM in all joints without edema NEUROLOGIC: No gross sensory or motor deficits, NVID SKIN: Normal color and temperature no lesions or rashes There are no gross sensorimotor deficits in bilateral lower extremities 5 out of 5 strength ED Treatment Course - Medications Given in the ED: ED Medications Discontinued Medications Generic Name Dose Route Start Last Admin Trade Name Rip PRN Reason Stop Dose Admin Acetaminophen 975 mg 03/05/18 21:28 03/05/18 21:54 Tylenol - PO 03/05/18 21:29 975 mg ONCE ONE Administration *DC/Admit/Observation/Transfer Diagnosis at time of Disposition: Chronic low back pain - Discharge Dispostion Disposition: HOME Condition at time of disposition: Stable Decision to Admit order: No - Referrals Referrals: Josr Patricio MD [Staff Physician] - - Patient Instructions Printed Discharge Instructions: Low Back Pain Additional Instructions: Return to the emergency room should symptoms worsen or go unresolved. Follow-up with spine surgery in 2-3 days for further evaluation and treatment options. Male take Tylenol for pain at this point - Post Discharge Activity
== END 2018-03-05 22:16 | disposition home or self-care (01) ==
LOC: JERFT 21:21 → JER 21:21 → JERFT 22:16
DX: M54.5 Low back pain (principal); E03.9 Hypothyroidism, unspecified; F41.8 Other specified anxiety disorders; I10 Essential (primary) hypertension; J45.909 Unspecified asthma, uncomplicated
CPT/HCPCS: 99281-25

== ENCOUNTER 2018-03-08 11:24 | Emergency (ER) | payer OTHER ==
[2018-03-08 11:39] VITALS: BP 123/81; PULSE 88; TEMP 98.3; BMI 23.0
--- NOTE | 2018-03-08 11:50 | PDOC ---
History of Present Illness - General History Source: Patient Exam Limitations: No Limitations - History of Present Illness Initial Comments: 03/08/18 11:57 The patient is a 62 year old female, well known to the ED, with a significant PMH of chronic back pain (L4L5 herniated disc), asthma, COPD, anemia, CKD, CHF, ESRD, hypertension, and hyperlipidemia who presents to the emergency department with her chronic back pain. The patient was seen in the ED about 3 days ago with similar pain. She states that her pain today is slightly worsened as an 8.5 /10 in severity. She describes it as a sharp and midline and radiating to her sides. She states that it is worsened with bearing weight. The patient also reports some episodes of productive cought with sputum. She denies any other symptoms. She denies any fever, chills, nausea, vomiting, diarrhea, constipation or urinary symptoms . she denies any numbness, tingling, or loss of sensation. The patient denies any chest pain, shortness of breath, headache or dizziness. The patient denies any other complaints. <Veena Ornelas - Last Filed: 03/08/18 11:57> <Yanira Owen - Last Filed: 03/08/18 15:23> - General Chief Complaint: Back Pain Stated Complaint: BACK PAIN Time Seen by Provider: 03/08/18 11:45 Past History <Veena Ornelas - Last Filed: 03/08/18 11:57> - Past Medical History Anemia: Yes Asthma: Yes Cancer: No Cardiac Disorders: Yes CVA: No COPD: Yes CHF: No DVT: No Dementia: No Diabetes: No GI Disorders: Yes (bleeding ulcer) Disorders: Yes (KIDNEY STONE;) HTN: Yes Hypercholesterolemia: Yes Kidney Stones: Yes Liver Disease: No Psychiatric Problems: Yes (ANXIETY, DEPRESSION) Seizures: No Thyroid Disease: Yes (hypothyroid) - Surgical History Abdominal Surgery: No Appendectomy: No Cardiac Surgery: No Cholecystectomy: No Lung Surgery: No Neurologic Surgery: No Orthopedic Surgery: Yes (B/L hip replacement (rt 2009; left 2012)) - Immunization History Td Vaccination: Yes TDAP Vaccination: No Immunization Up to Date: Yes - Suicide/Smoking/Psychosocial Hx Smoking Status: Yes Smoking History: Current every day smoker Years of Tobacco Use: 30 Have you smoked in the past 12 months: Yes Number of Cigarettes Smoked Daily: 4 If you are a former smoker, when did you quit?: refused booklet 07/21/14 Cigars Per Day: 0 Information on smoking cessation initiated: Yes 'Breaking Loose' booklet given: 03/08/18 Hx Alcohol Use: No Drug/Substance Use Hx: No Substance Use Type: None Hx Substance Use Treatment: Yes <Yanira Owen - Last Filed: 03/08/18 15:23> - Past Medical History Allergies/Adverse Reactions: Allergies Allergy/AdvReac Type Severity Reaction Status Date / Time levofloxacin [From Levaquin] Allergy Mild Itching Verified 03/05/18 21:34 Home Medications: Ambulatory Orders Cyclobenzaprine HCl [Flexeril -] 10 mg PO HS #7 tablet 01/31/18 Ibuprofen [Motrin -] 400 mg PO QID PRN #28 tablet 02/23/18 Methocarbamol [Robaxin -] 500 mg PO BID PRN #14 tablet 02/23/18 Lidocaine 5% Patch [Lidoderm -] 1 patch TP DAILY #7 patch 03/02/18 Review of Systems - Review of Systems Able to Perform ROS?: Yes Comments:: 03/08/18 11:58 GENERAL/CONSTITUTIONAL: No fever or chills. No weakness. HEAD, EYES, EARS, NOSE AND THROAT: No change in vision. No ear pain or discharge. No sore throat. CARDIOVASCULAR: No chest pain or shortness of breath. RESPIRATORY: (+)cough. No wheezing, or hemoptysis. GASTROINTESTINAL: No nausea, vomiting, diarrhea or constipation. GENITOURINARY: No dysuria, frequency, or change in urination. MUSCULOSKELETAL: (+)back pain. No joint or muscle swelling or pain. No neck pain. SKIN: No rash NEUROLOGIC: No headache, vertigo, loss of consciousness, or change in strength/ sensation. ENDOCRINE: No increased thirst. No abnormal weight change. HEMATOLOGIC/LYMPHATIC: No anemia, easy bleeding, or history of blood clots. ALLERGIC/IMMUNOLOGIC: No hives or skin allergy. <Veena Ornelas - Last Filed: 03/08/18 11:57> *Physical Exam - Vital Signs Last Vital Signs Temp Pulse Resp BP Pulse Ox 98.3 F 88 18 123/81 98 03/08/18 11:24 03/08/18 11:24 03/08/18 11:24 03/08/18 11:24 03/08/18 11:24 <Veena Ornelas - Last Filed: 03/08/18 11:57> - Vital Signs Last Vital Signs Temp Pulse Resp BP Pulse Ox 98.3 F 88 18 123/81 98 03/08/18 11:24 03/08/18 11:24 18 11:24 03/08/18 11:24 03/08/18 11:24 - Physical Exam Comments: GENERAL: Awake, alert, and fully oriented, in no acute distress HEAD: No signs of trauma EYES: PERRLA, EOMI, sclera anicteric, conjunctiva clear ENT: Auricles normal inspection, hearing grossly normal, nares patent, oropharynx clear without exudates. Moist mucosa NECK: Normal ROM, supple, no lymphadenopathy, JVD, or masses LUNGS: Dec air entry B/L with rhonchi and exp wheezes. HEART: Regular rate and rhythm, normal S1 and S2, no murmurs, rubs or gallops ABDOMEN: Soft, nontender, normoactive bowel sounds. No guarding, no rebound. No masses EXTREMITIES: Normal range of motion, no edema. No clubbing or cyanosis. No cords, erythema, or tenderness NEUROLOGICAL: Cranial nerves II through XII grossly intact. Normal speech, normal gait. Normal motor and sensation. SKIN: Warm, Dry, normal turgor, no rashes or lesions noted. <Yanira Owen - Last Filed: 03/08/18 15:23> *DC/Admit/Observation/Transfer - Attestations Scribe Attestion: 03/08/18 11:59 Documentation prepared by Veena Ornelas, acting as medical technicians for Yanira Owen MD. <Veena Ornelas - Last Filed: 03/08/18 11:57> - Discharge Dispostion Decision to Admit order: No <Yanira Owen - Last Filed: 03/08/18 15:23> Diagnosis at time of Disposition: Chronic low back pain Qualifiers: Back pain laterality: unspecified Sciatica presence: without sciatica Qualified Code(s): M54.5 - Low back pain Asthma Qualifiers: Asthma severity: unspecified severity Asthma persistence: unspecified Asthma complication type: unspecified Qualified Code(s): J45.909 - Unspecified asthma, uncomplicated - Discharge Dispostion Disposition: HOME Condition at time of disposition: Stable - Referrals Referrals: Syl Gonzalez MD [Primary Care Provider] - - Patient Instructions Printed Discharge Instructions: DI for Chronic Obstructive Pulmonary Disease, DI for Low Back Pain - Post Discharge Activity
[2018-03-08] MEDS ORDERED: predniSONE 20 MG TABLET (UD) PO ONE (12:34)
[2018-03-08] MEDS ORDERED: ACETAMINOPHEN 500 MG TABLET (FP) PO ONE (12:34)
[2018-03-08] MEDS ORDERED: AZITHROMYCIN 500 MG TABLET PO ONE (12:34)
[2018-03-08] MEDS: ALBUTEROL SO4 2.5/IPRATROPIUM 0.5 INH SOL 3 ML VIAL.NEB. NEB SCH ×4 (12:45→15:00)
[2018-03-08] MEDS ORDERED: predniSONE 20 MG TABLET (UD) ONE (12:54)
[2018-03-08] MEDS ORDERED: ALBUTEROL SO4 2.5/IPRATROPIUM 0.5 INH SOL 3 ML VIAL.NEB. NEB ONE ×3 (12:54→15:49)
[2018-03-08] MEDS ORDERED: ACETAMINOPHEN 325 MG TABLET (FP) ONE (12:55)
[2018-03-08] MEDS ORDERED: AZITHROMYCIN 500 MG TABLET ONE (12:55)
== END 2018-03-08 16:18 | disposition home or self-care (01) ==
LOC: JER 11:24
PROC: 3E0F7GC Introduction of Other Therapeutic Substance into Respiratory Tract, Via Natural or Artificial Opening (ICD-10-PCS; principal; 2018-03-08)
DX: M54.5 Low back pain (principal); G89.29 Other chronic pain; J45.909 Unspecified asthma, uncomplicated; J44.9 Chronic obstructive pulmonary disease, unspecified; I10 Essential (primary) hypertension; I12.9 Hypertensive chronic kidney disease with stage 1 through stage 4 chronic kidney disease, or unspecified chronic kidney disease; N18.9 Chronic kidney disease, unspecified; E78.00 Pure hypercholesterolemia, unspecified; E03.9 Hypothyroidism, unspecified; F41.8 Other specified anxiety disorders; Z87.442 Personal history of urinary calculi; Z96.643 Presence of artificial hip joint, bilateral
CPT/HCPCS: 94640; 99282-25

== ENCOUNTER 2018-03-09 17:11 | Emergency (ER) | payer OTHER ==
[2018-03-09 17:22] VITALS: TEMP 98.9; BMI 23.0
--- NOTE | 2018-03-09 17:27 | PDOC ---
History of Present Illness - General Chief Complaint: Back Pain Stated Complaint: BACK PAIN Past History - Past Medical History Allergies/Adverse Reactions: Allergies Allergy/AdvReac Type Severity Reaction Status Date / Time levofloxacin [From Levaquin] Allergy Mild Itching Verified 03/09/18 17:22 Home Medications: Ambulatory Orders Cyclobenzaprine HCl [Flexeril -] 10 mg PO HS #7 tablet 01/31/18 Ibuprofen [Motrin -] 400 mg PO QID PRN #28 tablet 02/23/18 Methocarbamol [Robaxin -] 500 mg PO BID PRN #14 tablet 02/23/18 Lidocaine 5% Patch [Lidoderm -] 1 patch TP DAILY #7 patch 03/02/18 Anemia: Yes Asthma: Yes Cancer: No Cardiac Disorders: Yes CVA: No COPD: Yes CHF: No DVT: No Dementia: No Diabetes: No GI Disorders: Yes (bleeding ulcer) Disorders: Yes (KIDNEY STONE;) HTN: Yes Hypercholesterolemia: Yes Kidney Stones: Yes Liver Disease: No Psychiatric Problems: Yes (ANXIETY, DEPRESSION) Seizures: No Thyroid Disease: Yes (hypothyroid) - Surgical History Abdominal Surgery: No Appendectomy: No Cardiac Surgery: No Cholecystectomy: No Lung Surgery: No Neurologic Surgery: No Orthopedic Surgery: Yes (B/L hip replacement (rt 2009; left 2012)) - Immunization History Td Vaccination: Yes TDAP Vaccination: No Immunization Up to Date: Yes - Suicide/Smoking/Psychosocial Hx Smoking Status: Yes Smoking History: Current every day smoker Years of Tobacco Use: 30 Have you smoked in the past 12 months: Yes Number of Cigarettes Smoked Daily: 4 If you are a former smoker, when did you quit?: refused booklet 07/21/14 Cigars Per Day: 0 Information on smoking cessation initiated: No 'Breaking Loose' booklet given: 03/08/18 Hx Alcohol Use: No Drug/Substance Use Hx: No Substance Use Type: None Hx Substance Use Treatment: Yes *Physical Exam - Vital Signs Last Vital Signs Temp Pulse Resp BP Pulse Ox 98.9 F 91 H 18 134/72 99 03/09/18 17:15 03/09/18 17:15 03/09/18 17:15 03/09/18 17:15 03/09/18 17:15 *DC/Admit/Observation/Transfer Diagnosis at time of Disposition: Chronic back pain - Discharge Dispostion Disposition: HOME Condition at time of disposition: Stable - Referrals - Patient Instructions Printed Discharge Instructions: Managing Chronic Low Back Pain Additional Instructions: 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 Make appointment with Neurologist Dr. Vázquez. Come back to the ER for any new, worsening or concerning symptoms. - Post Discharge Activity
--- NOTE | 2018-03-09 19:22 | PDOC ---
History of Present Illness - General History Source: Patient - History of Present Illness Initial Comments: 03/09/18 19:17 62f with chronic back pain and COPD presenting to the ED for back pain. Patient seen in fast track for chronic back pain, refused care and asked to be seen in ER. Patient was seen yesterday for same symptoms and discharged with lido patches and muscle relaxers. 03/09/18 19:25 Denies incontinence, denies saddle anesthesia, denies trauma. <Guzman Stewart - Last Filed: 03/09/18 19:26> <Madisyn Thao - Last Filed: 03/10/18 02:00> - General Chief Complaint: Back Pain Stated Complaint: BACK PAIN Time Seen by Provider: 03/09/18 17:32 Attending Attestation - Resident Resident Name: Guzman Stewart - ED Attending Attestation I have performed the following: I have examined & evaluated the patient, The case was reviewed & discussed with the resident, I agree w/resident's findings & plan - HPI HPI: 03/10/18 01:59 Pt comes with chronic back pain. She is requesting narcotics. - Physicial Exam PE: 03/10/18 02:00 Agree with resident exam - Medical Decision Making 03/10/18 02:00 Home with OTC meds <Madisyn Thao - Last Filed: 03/10/18 02:00> Past History - Past Medical History Anemia: Yes Asthma: Yes Cancer: No Cardiac Disorders: Yes CVA: No COPD: Yes CHF: No DVT: No Dementia: No Diabetes: No GI Disorders: Yes (bleeding ulcer) Disorders: Yes (KIDNEY STONE;) HTN: Yes Hypercholesterolemia: Yes Kidney Stones: Yes Liver Disease: No Psychiatric Problems: Yes (ANXIETY, DEPRESSION) Seizures: No Thyroid Disease: Yes (hypothyroid) - Surgical History Abdominal Surgery: No Appendectomy: No Cardiac Surgery: No Cholecystectomy: No Lung Surgery: No Neurologic Surgery: No Orthopedic Surgery: Yes (B/L hip replacement (rt 2009; left 2012)) - Immunization History Td Vaccination: Yes TDAP Vaccination: No Immunization Up to Date: Yes - Suicide/Smoking/Psychosocial Hx Smoking Status: Yes Smoking History: Current every day smoker Years of Tobacco Use: 30 Have you smoked in the past 12 months: Yes Number of Cigarettes Smoked Daily: 4 If you are a former smoker, when did you quit?: refused booklet 07/21/14 Cigars Per Day: 0 Information on smoking cessation initiated: No 'Breaking Loose' booklet given: 03/08/18 Hx Alcohol Use: No Drug/Substance Use Hx: No Substance Use Type: None Hx Substance Use Treatment: Yes <Guzman Stewart - Last Filed: 03/09/18 19:26> <Madisyn Thao - Last Filed: 03/10/18 02:00> - Past Medical History Allergies/Adverse Reactions: Allergies Allergy/AdvReac Type Severity Reaction Status Date / Time levofloxacin [From Levaquin] Allergy Mild Itching Verified 03/09/18 17:22 Home Medications: Ambulatory Orders Cyclobenzaprine HCl [Flexeril -] 10 mg PO HS #7 tablet 01/31/18 Ibuprofen [Motrin -] 400 mg PO QID PRN #28 tablet 02/23/18 Methocarbamol [Robaxin -] 500 mg PO BID PRN #14 tablet 02/23/18 Lidocaine 5% Patch [Lidoderm -] 1 patch TP DAILY #7 patch 03/02/18 Trauma Specific PMHX - Complaint Specific PMHX Arthritis: Yes (with osteoporosis) Back Injury: No <Guzman Stewart - Last Filed: 03/09/18 19:26> *Physical Exam - Vital Signs Last Vital Signs Temp Pulse Resp BP Pulse Ox 98.9 F 91 H 18 134/72 99 03/09/18 17:15 03/09/18 17:15 03/09/18 17:15 03/09/18 17:15 03/09/18 17:15 - Physical Exam General Appearance: Yes: Nourished, Appropriately Dressed. No: Apparent Distress HEENT: positive: EOMI, Normal ENT Inspection Respiratory/Chest: positive: Crackles. negative: Respiratory Distress Cardiovascular: positive: Regular Rhythm, Regular Rate, S1, S2 Gastrointestinal/Abdominal: positive: Normal Bowel Sounds, Flat, Soft. negative : Tender Musculoskeletal: positive: Muscle Spasm, Other (no midline tenderness. ) Extremity: positive: Normal Capillary Refill, Normal Inspection, Normal Range of Motion Integumentary: positive: Normal Color, Dry, Warm Neurologic: positive: Fully Oriented, Alert, Normal Mood/Affect, Normal Response <Guzman Stewart - Last Filed: 03/09/18 19:26> - Vital Signs Last Vital Signs Temp Pulse Resp BP Pulse Ox 98.9 F 84 17 130/74 98 03/09/18 17:15 03/09/18 19:33 03/09/18 19:33 03/09/18 19:33 03/09/18 19:33 <Madisyn Thao - Last Filed: 03/10/18 02:00> Medical Decision Making - Medical Decision Making 03/09/18 19:26 Patient states she didn't chicken picker her prescription from yesterday's visit as she forgot they were sent. She was gently reminded of the pharmacy and it's location. Accepted to be discharged in order to obtain prescriptions. <Guzman Stewart - Last Filed: 03/09/18 19:26> *DC/Admit/Observation/Transfer - Discharge Dispostion Decision to Admit order: No <Guzman Stewart - Last Filed: 03/09/18 19:26> <Madisyn Thao - Last Filed: 03/10/18 02:00> Diagnosis at time of Disposition: Chronic back pain - Discharge Dispostion Disposition: HOME Condition at time of disposition: Stable - Patient Instructions Printed Discharge Instructions: Managing Chronic Low Back Pain Additional Instructions: supervisor safety deposit prescription at the pharmacy. Make appointment with Neurologist Dr. Vázquez. Come back to the ER for any new, worsening or concerning symptoms.
[2018-03-09 19:34] VITALS: BP 130/74; PULSE 84
== END 2018-03-09 19:34 | disposition home or self-care (01) ==
LOC: JERFT 17:11 → JER 17:11
DX: M54.5 Low back pain (principal); G89.29 Other chronic pain; M51.26 Other intervertebral disc displacement, lumbar region; J44.9 Chronic obstructive pulmonary disease, unspecified; J45.909 Unspecified asthma, uncomplicated; D64.9 Anemia, unspecified; I13.0 Hypertensive heart and chronic kidney disease with heart failure and stage 1 through stage 4 chronic kidney disease, or unspecified chronic kidney disease; N18.9 Chronic kidney disease, unspecified; I50.89 Other heart failure; E78.00 Pure hypercholesterolemia, unspecified; F41.8 Other specified anxiety disorders; F32.9 Major depressive disorder, single episode, unspecified; Z96.643 Presence of artificial hip joint, bilateral
CPT/HCPCS: 99282-25

== ENCOUNTER 2018-03-12 18:33 | Inpatient (IN) | payer OTHER ==
[2018-03-12] MEDS ORDERED: ACETAMINOPHEN 325 MG TABLET (FP) PO ONE (18:34)
--- NOTE | 2018-03-12 18:34 | PDOC ---
Rapid Medical Evaluation Time Seen by Provider: 03/12/18 18:33 Medical Evaluation: Allergies Allergy/AdvReac Type Severity Reaction Status Date / Time levofloxacin [From Levaquin] Allergy Mild Itching Verified 03/09/18 17:22 03/12/18 18:33 I have performed a brief in-person evaluation of this patient. The patient presents with a chief complaint of: chronic back pain Pertinent physical exam findings: paraspinous tenderness I have ordered the following: tylenol The patient will proceed to the ED for further evaluation. Discharge Disposition - Diagnosis Chronic low back pain - Referrals - Patient Instructions - Post Discharge Activity
--- NOTE | 2018-03-12 19:20 | PDOC ---
History of Present Illness - General Chief Complaint: Back Pain Stated Complaint: PAIN Time Seen by Provider: 03/12/18 18:33 Past History - Past Medical History Allergies/Adverse Reactions: Allergies Allergy/AdvReac Type Severity Reaction Status Date / Time levofloxacin [From Levaquin] Allergy Mild Itching Verified 03/12/18 18:36 Home Medications: Ambulatory Orders Cyclobenzaprine HCl [Flexeril -] 10 mg PO HS #7 tablet 01/31/18 Ibuprofen [Motrin -] 400 mg PO QID PRN #28 tablet 02/23/18 Methocarbamol [Robaxin -] 500 mg PO BID PRN #14 tablet 02/23/18 Lidocaine 5% Patch [Lidoderm -] 1 patch TP DAILY #7 patch 03/02/18 Anemia: Yes Asthma: Yes Cancer: No Cardiac Disorders: Yes CVA: No COPD: Yes CHF: No DVT: No Dementia: No Diabetes: No GI Disorders: Yes (bleeding ulcer) Disorders: Yes (KIDNEY STONE;) HTN: Yes Hypercholesterolemia: Yes Kidney Stones: Yes Liver Disease: No Psychiatric Problems: Yes (ANXIETY, DEPRESSION) Seizures: No Thyroid Disease: Yes (hypothyroid) - Surgical History Abdominal Surgery: No Appendectomy: No Cardiac Surgery: No Cholecystectomy: No Lung Surgery: No Neurologic Surgery: No Orthopedic Surgery: Yes (B/L hip replacement (rt 2009; left 2012)) - Immunization History Td Vaccination: Yes TDAP Vaccination: No Immunization Up to Date: Yes - Suicide/Smoking/Psychosocial Hx Smoking Status: Yes Smoking History: Current every day smoker Years of Tobacco Use: 30 Have you smoked in the past 12 months: Yes Number of Cigarettes Smoked Daily: 4 If you are a former smoker, when did you quit?: refused booklet 07/21/14 Cigars Per Day: 0 Information on smoking cessation initiated: Yes 'Breaking Loose' booklet given: 03/08/18 Hx Alcohol Use: No Drug/Substance Use Hx: No Substance Use Type: None Hx Substance Use Treatment: Yes *Physical Exam - Vital Signs Last Vital Signs Temp Pulse Resp BP Pulse Ox 98.3 F 98 H 18 140/88 98 03/12/18 18:34 03/12/18 18:34 03/12/18 18:34 03/12/18 18:34 03/12/18 18:34 ED Treatment Course - RADIOLOGY Radiology Studies Ordered: Category Date Time Status CHEST PA & LAT [RAD] Stat Radiology 03/12/18 19:13 Ordered *DC/Admit/Observation/Transfer Diagnosis at time of Disposition: Chronic low back pain - Referrals - Patient Instructions - Post Discharge Activity
--- NOTE | 2018-03-12 19:29 | PDOC ---
History of Present Illness - General Chief Complaint: Back Pain Stated Complaint: PAIN Time Seen by Provider: 03/12/18 18:33 - History of Present Illness Initial Comments: 62 year old female with past medical history significant for Asthma, COPD, Anemia, CKD, CHF, Chronic Back Pain (L4-L5 herniated discs) with multiple ED visits, Bleeding Ulcer, HTN, HLD presents to the emergency department with lower back pain consistent with her chronic back pain and a creatinine measured in outpatient labs to 6. She seems overall, very health illiterate and has very poor memory overall. Per ED staff, she was called in by Dr. Coe who received some outpatient labs which demonstrated a creatinine of 6. She does not personally recall when she saw him, when her labs were drawn or any other healthcare information. She denies any leg numbness/ tingling, bowel/ bladder incontinence, or decreased urine output. 03/12/18 19:27 Past History - Past Medical History Allergies/Adverse Reactions: Allergies Allergy/AdvReac Type Severity Reaction Status Date / Time levofloxacin [From Levaquin] Allergy Mild Itching Verified 03/12/18 18:36 Home Medications: Ambulatory Orders Cyclobenzaprine HCl [Flexeril -] 10 mg PO HS #7 tablet 01/31/18 Ibuprofen [Motrin -] 400 mg PO QID PRN #28 tablet 02/23/18 Methocarbamol [Robaxin -] 500 mg PO BID PRN #14 tablet 02/23/18 Lidocaine 5% Patch [Lidoderm -] 1 patch TP DAILY #7 patch 03/02/18 Anemia: Yes Asthma: Yes Cancer: No Cardiac Disorders: Yes CVA: No COPD: Yes CHF: No DVT: No Dementia: No Diabetes: No GI Disorders: Yes (bleeding ulcer) Disorders: Yes (KIDNEY STONE;) HTN: Yes Hypercholesterolemia: Yes Kidney Stones: Yes Liver Disease: No Psychiatric Problems: Yes (ANXIETY, DEPRESSION) Seizures: No Thyroid Disease: Yes (hypothyroid) - Surgical History Abdominal Surgery: No Appendectomy: No Cardiac Surgery: No Cholecystectomy: No Lung Surgery: No Neurologic Surgery: No Orthopedic Surgery: Yes (B/L hip replacement (rt 2009; left 2012)) - Immunization History Td Vaccination: Yes TDAP Vaccination: No Immunization Up to Date: Yes - Suicide/Smoking/Psychosocial Hx Smoking Status: Yes Smoking History: Current every day smoker Years of Tobacco Use: 30 Have you smoked in the past 12 months: Yes Number of Cigarettes Smoked Daily: 4 If you are a former smoker, when did you quit?: refused booklet 07/21/14 Cigars Per Day: 0 Information on smoking cessation initiated: Yes 'Breaking Loose' booklet given: 03/08/18 Hx Alcohol Use: No Drug/Substance Use Hx: No Substance Use Type: None Hx Substance Use Treatment: Yes Review of Systems - Review of Systems Constitutional: No: Chills, Diaphoresis, Fever, Loss of Appetite HEENTM: No: Eye Pain, Blurred Vision, Tearing Respiratory: No: Cough, Orthopnea, Shortness of Breath Cardiac (ROS): No: Chest Pain, Edema, Irregular Heart Rate ABD/GI: No: Diarrhea, Nausea, Vomiting : No: Dysuria, Discharge, Frequency Musculoskeletal: No: Back Pain, Gout, Joint Pain Integumentary: No: Lesions, Lumps, Pallor Neurological: No: Headache, Numbness Psychiatric: No: Anxiety, Frequent Crying Hematologic/Lymphatic: No: Anemia, Blood Clots *Physical Exam - Vital Signs Last Vital Signs Temp Pulse Resp BP Pulse Ox 98.3 F 98 H 18 140/88 98 03/12/18 18:34 03/12/18 18:34 03/12/18 18:34 03/12/18 18:34 03/12/18 18:34 - Physical Exam General Appearance: Yes: Nourished, Appropriately Dressed. No: Apparent Distress HEENT: positive: EOMI, TEO, Normal ENT Inspection, Normal Voice Neck: positive: Trachea midline, Normal Thyroid, Supple. negative: Tender, Rigid Respiratory/Chest: positive: Lungs Clear, Normal Breath Sounds. negative: Chest Tender, Respiratory Distress, Accessory Muscle Use Cardiovascular: positive: Regular Rhythm, Regular Rate Gastrointestinal/Abdominal: positive: Normal Bowel Sounds, Flat, Soft. negative : Tender Musculoskeletal: positive: Vertebral Tenderness (Sacral tenderness). negative: Normal Inspection, Decreased Range of Motion Extremity: positive: Normal Capillary Refill, Normal Inspection, Normal Range of Motion. negative: Tender Integumentary: positive: Normal Color, Dry, Warm Neurologic: positive: supervisor die casting II-XII NML intact, Alert, Normal Mood/Affect, Normal Response, Motor Strength 5/5. negative: Fully Oriented (AOx2, does not know year ut knows season/ holiday period.) ED Treatment Course - LABORATORY CBC & Chemistry Diagram: 03/12/18 20:00 03/12/18 20:00 - Medications Given in the ED: ED Medications Discontinued Medications Generic Name Dose Route Start Last Admin Trade Name Rip PRN Reason Stop Dose Admin Acetaminophen 650 mg 03/12/18 18:34 03/12/18 19:23 Tylenol - PO 03/12/18 18:35 650 mg ONCE ONE Administration Medical Decision Making - Medical Decision Making 62 year old female referred to our ED by Dr. Coe for AVF placement in the setting of worsening renal failure. Patient only complaining of back pain. Creatinine here elevated to 6.1. Preop labs sent and patient OK with admission. EKG Showing rate 85, IL interval 178, QRS 80, VNr466, normal axis, with possible biphasic t-wave in V1 that was completely inverted on 01/27/18 and overall similar. Spoke to Dr. Valenzuela and we will admit this patient for further workup. 03/12/18 20:58 *DC/Admit/Observation/Transfer Diagnosis at time of Disposition: Chronic low back pain Qualifiers: Back pain laterality: midline Sciatica presence: without sciatica Qualified Code(s): M54.5 - Low back pain; G89.29 - Other chronic pain Acute on chronic kidney failure Qualifiers: Acute renal failure type: unspecified Chronic kidney disease stage: stage 4 ( severe) Qualified Code(s): N17.9 - Acute kidney failure, unspecified; N18.4 - Chronic kidney disease, stage 4 (severe) - Discharge Dispostion Decision to Admit order: Yes - Referrals - Patient Instructions - Post Discharge Activity
[2018-03-12 19:50] LABS: URINE APPEARANCE CLEAR; URINE BILIRUBIN NEGATIVE (<2.0 mg/dL); URINE COLOR STRAW; URINE GLUCOSE (UA) 2+ (NEGATIVE); URINE KETONE NEGATIVE (NEGATIVE); URINE LEUK ESTERASE NEGATIVE (NEGATIVE); URINE NITRITE NEGATIVE (NEGATIVE); URINE PROTEIN 3+ (NEGATIVE); URINE UROBILINOGEN NEGATIVE mg/dL (0.2-1.0)
[2018-03-12 19:56] LABS: EPI CELLS RARE /HPF (FEW)
--- NOTE | 2018-03-12 20:06 | PDOC ---
Attending Attestation - HPI HPI: 03/12/18 20:36 The patient is a 62 year old female, with a significant past medical history of asthma, COPD, Anemia, CKD, CHF, Chronic Back Pain (L4 L5 herniated discs) with multiple ED visits, HTN, and HLD, who presents to the emergency department with , acute on chronic back pain and elevated creatinine of 6. Patient endorses that she has not been compliant with her lidocaine patches. As per Dr. Coe , renal, the patient is pending AV fistula implantation by Dr. Fry. Patient is a poor historian and is unaware of her last visit to Dr. Coe or when the labs were taken. Allergies: Levofloxacin. Social history: Half a pack for 40 years. Primary Care Physician: Dr. Jared White. Renal: Dr. Coe <Eleno Manzano - Last Filed: 03/12/18 20:36> - Resident Resident Name: SergioEloymadhuri - ED Attending Attestation I have performed the following: I have examined & evaluated the patient, The case was reviewed & discussed with the resident, I agree w/resident's findings & plan, Exceptions are as noted - Physicial Exam PE: 03/12/18 20:45 GENERAL: Well-appearing, well-nourished. No apparent distress. HEENT: Normocephalic, atraumatic. PERRL, EOM intact. CARDIOVASCULAR: Normal S1, S2. Regular rate and rhythm. PULMONARY: Clear to auscultation bilaterally. ABDOMEN: Soft, non-distended, non-tender. EXTREMITIES: Normal ROM in all four extremities. No gross deformities. SKIN: Warm, dry. No rash NEUROLOGICAL: No focal neurological deficits. - Medical Decision Making 03/12/18 20:47 Sent by her renal 2/2 Cr of 6.0 found on outside labs. Pt is at her baseline, no acute complaints. States that she is still having her back pain w/o complications but states that she has not tried the lido patches that were recommended during her last encounter with this institution. Will repeat labs, admit for worsening kidney function/LUCIEN <Juan Francisco Olea - Last Filed: 03/12/18 20:49> Attestations - Attestations 03/12/18 20:36 Documentation prepared by Nirvannie Goberdan, acting as senior medical transcriptionist for Juan Francisco Olea MD. <Eleno Manzano - Last Filed: 03/12/18 20:36>
[2018-03-12 20:07] LABS: BASO % 0.9 % (0-2.0); EOS % 7.3 % (0-4.5); HEMATOCRIT 26.4 % (32.4-45.2); HEMOGLOBIN 9.4 GM/dL (10.7-15.3); LYMPH % 14.7 % (8-40); MCH 30.3 pg (25.7-33.7); MCHC 35.7 g/dl (32.0-36.0); MEAN CELL VOLUME 84.8 fl (80-96); MEAN PLT VOLUME 7.2 fl (7.5-11.1); MONO % 6.2 % (3.8-10.2); NEUT % 70.9 % (42.8-82.8); PLATELET COUNT 437 K/MM3 (134-434); RBC 3.11 M/mm3 (3.60-5.2); RDW 19.3 % (11.6-15.6); WHITE BLOOD COUNT 9.1 K/mm3 (4.0-10.0)
[2018-03-12 20:36] LABS: INR 1.14 (0.83-1.09); PROTHROMBIN TIME (PATIENT) 13.5 SEC (9.7-13.0)
[2018-03-12 20:38] LABS: ALBUMIN 3.2 g/dl (3.4-5.0); ALK PHOS 274 U/L (45-117); ANION GAP 14 MMOL/L (8-16); BILIRUBIN,TOTAL 0.4 mg/dL (0.2-1); BLOOD UREA NITROGEN 72 mg/dL (7-18); CALCIUM 8.4 mg/dL (8.5-10.1); CHLORIDE 105 mmol/L (98-107); CO2 16 mmol/L (21-32); CREATININE 6.1 mg/dL (0.55-1.3); GLUCOSE,RANDOM 173 mg/dL (74-106); POTASSIUM 3.9 mmol/L (3.5-5.1); SGOT/AST 16 U/L (15-37); SGPT/ALT 19 U/L (13-61); SODIUM 136 mmol/L (136-145); TOT PROT 6.7 g/dl (6.4-8.2)
[2018-03-12 20:39] LABS: ACTIVATED PTT 33.2 SECONDS (25.2-36.5)
--- NOTE | 2018-03-12 22:57 | HP ---
CHIEF COMPLAINT: Back pain PCP: Christopher HISTORY OF PRESENT ILLNESS: 62 year old female, with a significant past medical history of asthma, COPD, Anemia, CKD, CHF, Chronic Back Pain (L4 L5 herniated discs), HTN sent to ER by her appliance assembler for creation of AV fistula. Patient c/o chronic back pain which is unchanged from her baseline. ER course was notable for: (1) CXR (2) tylenol (3) Recent Travel: no PAST MEDICAL HISTORY: asthma, COPD, Anemia, CKD, CHF, Chronic Back Pain (L4 L5 herniated discs), HLD, HTN PAST SURGICAL HISTORY: no Social History: Smoking: yes Alcohol: occasional Drugs: no Family History: no [facility] Allergy (Mild, Verified 03/12/18 18:36) Itching HOME MEDICATIONS: Home Medications Medication Instructions Recorded Cyclobenzaprine HCl [Flexeril -] 10 mg PO HS #7 tablet 01/31/18 Ibuprofen [Motrin -] 400 mg PO QID PRN #28 tablet 02/23/18 Methocarbamol [Robaxin -] 500 mg PO BID PRN #14 tablet 02/23/18 Lidocaine 5% Patch [Lidoderm -] 1 patch TP DAILY #7 patch 03/02/18 REVIEW OF SYSTEMS CONSTITUTIONAL: Absent: fever, chills, diaphoresis, generalized weakness, malaise, loss of appetite, weight change HEENT: Absent: rhinorrhea, nasal congestion, throat pain, throat swelling, difficulty swallowing, mouth swelling, ear pain, eye pain, visual changes CARDIOVASCULAR: Absent: chest pain, syncope, palpitations, irregular heart rate, lightheadedness , peripheral edema RESPIRATORY: Absent: cough, shortness of breath, dyspnea with exertion, orthopnea, wheezing, stridor, hemoptysis GASTROINTESTINAL: Absent: abdominal pain, abdominal distension, nausea, vomiting, diarrhea, constipation, melena, hematochezia GENITOURINARY: Absent: dysuria, frequency, urgency, hesitancy, hematuria, flank pain, genital pain MUSCULOSKELETAL: Absent: myalgia, arthralgia, joint swelling, neck pain Present- back pain SKIN: Absent: rash, itching, pallor HEMATOLOGIC/IMMUNOLOGIC: Absent: easy bleeding, easy bruising, lymphadenopathy, frequent infections ENDOCRINE: Absent: unexplained weight gain, unexplained weight loss, heat intolerance, cold intolerance NEUROLOGIC: Absent: headache, focal weakness or paresthesias, dizziness, unsteady gait, seizure, mental status changes, bladder or bowel incontinence PSYCHIATRIC: Absent: anxiety, depression, suicidal or homicidal ideation, hallucinations. PHYSICAL EXAMINATION Vital Signs - 24 hr 03/12/18 03/12/18 18:34 19:11 Temperature 98.3 F Pulse Rate 98 H Respiratory 18 Rate Blood Pressure 140/88 O2 Sat by Pulse 98 98 Oximetry (%) GENERAL: Awake, alert, not in acute distress, nontoxic HEAD: Normal with no signs of trauma. EYES: Pupils equal, round and reactive to light, extraocular movements intact, sclera anicteric, conjunctiva clear. No lid lag. EARS, NOSE, THROAT: Ears normal, nares patent, oropharynx clear without exudates. Moist mucous membranes. NECK: Normal range of motion, supple without lymphadenopathy, JVD, or masses. LUNGS: Breath sounds equal, clear to auscultation bilaterally. slight b/l expiratory wheezing appreciated HEART: Regular rate and rhythm, normal S1 and S2 without murmur, rub or gallop. ABDOMEN: Soft, nontender, not distended, normoactive bowel sounds, no guarding, no rebound, no masses. No hepatomegaly or splenomegaly. MUSCULOSKELETAL: Normal range of motion at all joints. No bony deformities or tenderness. No CVA tenderness. UPPER EXTREMITIES: 2+ pulses, warm, well-perfused. No cyanosis. No clubbing. No peripheral edema. LOWER EXTREMITIES: 2+ pulses, warm, well-perfused. No calf tenderness. No peripheral edema. NEUROLOGICAL: Cranial nerves II-XII intact. Normal speech. Normal gait. PSYCHIATRIC: Cooperative. Good eye contact. Appropriate mood and affect. SKIN: Warm, dry, normal turgor, no rashes or lesions noted, normal capillary refill. Laboratory Results - last 24 hr 03/12/18 03/12/18 03/12/18 19:40 20:00 20:00 WBC 9.1 RBC 3.11 L Hgb 9.4 L Hct 26.4 L MCV 84.8 MCH 30.3 MCHC 35.7 RDW 19.3 H Plt Count 437 H D MPV 7.2 L Absolute Neuts (auto) 6.5 Neutrophils % 70.9 Lymphocytes % 14.7 D Monocytes % 6.2 D Eosinophils % 7.3 H D Basophils % 0.9 D Nucleated RBC % 0 PT with INR 13.50 H INR 1.14 H PTT (Actin FS) 33.2 Sodium Potassium Chloride Carbon Dioxide Anion Gap BUN Creatinine Creat Clearance w eGFR Random Glucose Calcium Total Bilirubin AST ALT Alkaline Phosphatase Total Protein Albumin Urine Color Straw Urine Appearance Clear Urine pH 6.0 Ur Specific Helen 1.013 Urine Protein 3+ H Urine Glucose (UA) 2+ H Urine Ketones Negative Urine Blood Negative Urine Nitrite Negative Urine Bilirubin Negative Urine Urobilinogen Negative Ur Leukocyte Esterase Negative Urine WBC (Auto) 2 Urine RBC (Auto) 2 Ur Epithelial Cells Rare 03/12/18 20:00 WBC RBC Hgb Hct MCV MCH MCHC RDW Plt Count MPV Absolute Neuts (auto) Neutrophils % Lymphocytes % Monocytes % Eosinophils % Basophils % Nucleated RBC % PT with INR INR PTT (Actin FS) Sodium 136 Potassium 3.9 Chloride 105 Carbon Dioxide 16 L Anion Gap 14 BUN 72 H Creatinine 6.1 H Creat Clearance w eGFR 7.02 Random Glucose 173 H Calcium 8.4 L Total Bilirubin 0.4 AST 16 ALT 19 Alkaline Phosphatase 274 H Total Protein 6.7 Albumin 3.2 L Urine Color Urine Appearance Urine pH Ur Specific Helen Urine Protein Urine Glucose (UA) Urine Ketones Urine Blood Urine Nitrite Urine Bilirubin Urine Urobilinogen Ur Leukocyte Esterase Urine WBC (Auto) Urine RBC (Auto) Ur Epithelial Cells ASSESSMENT/PLAN: #CKD- off HD -admit to med/surg for AV fistula creation -vascular surgery consult -renal consult -type and screen -venous mapping of upper ext done previously #HTN -amlodipine 2.5mg po daily # asthma/COPD, -smoking cessation -advair 1 puff bid -duonebs q6hrs prn #Chronic Back Pain -stable -tylenol prn -robaxin, flexeril #dvt ppx - SCDs Visit type - Emergency Visit Emergency Visit: Yes ED Registration Date: 03/12/18 Care time: The patient presented to the Emergency Department on the above date and was hospitalized for further evaluation of their emergent condition. - New Patient This patient is new to me today: Yes Date on this admission: 03/13/18 - Critical Care Critical Care patient: No
[2018-03-12] MEDS ORDERED: ALBUTEROL SO4 2.5/IPRATROPIUM 0.5 INH SOL 3 ML VIAL.NEB. NEB PRN (23:48)
[2018-03-13] MEDS ORDERED: ZOLPIDEM TARTRATE 5 MG TABLET PO ONE ×2 (00:23→21:25)
[2018-03-13] MEDS ORDERED: ACETAMINOPHEN 325 MG TABLET (FP) PO ONE (00:30)
[2018-03-13] MEDS ORDERED: oxyCODONE HCL 5 MG TABLET PO ONE (00:30)
[2018-03-13 01:23] VITALS: BMI 23.6
[2018-03-13] MEDS: MORPHINE SULFATE 2 MG/ML VIAL IVPUSH PRN ×3 (03:55→20:38)
[2018-03-13 06:43] LABS: HEMATOCRIT 25.5 % (32.4-45.2); HEMOGLOBIN 8.7 GM/dL (10.7-15.3); MCH 29.2 pg (25.7-33.7); MEAN CELL VOLUME 85.7 fl (80-96); PLATELET COUNT 381 K/MM3 (134-434); RBC 2.97 M/mm3 (3.60-5.2); RDW 18.1 % (11.6-15.6); WHITE BLOOD COUNT 7.9 K/mm3 (4.0-10.0)
[2018-03-13 07:12] LABS: ANION GAP 11 MMOL/L (8-16); BLOOD UREA NITROGEN 77 mg/dL (7-18); CALCIUM 8.3 mg/dL (8.5-10.1); CHLORIDE 108 mmol/L (98-107); CO2 19 mmol/L (21-32); CREATININE 5.7 mg/dL (0.55-1.3); GLUCOSE,RANDOM 90 mg/dL (74-106); POTASSIUM 3.9 mmol/L (3.5-5.1); SODIUM 138 mmol/L (136-145)
[2018-03-13] MEDS: METHOCARBAMOL 500 MG TABLET PO SCH ×2 (10:36→22:53)
[2018-03-13] MEDS: amLODIPine BESYLATE 2.5 MG TABLET (FP) PO SCH (10:36)
[2018-03-13] MEDS: FLUTICASONE/SALMETEROL 100 MCG/50 MCG DISKUS IH SCH ×2 (10:37→22:53)
[2018-03-13] MEDS: CYCLOBENZAPRINE HCL 10 MG TABLET (FP) PO SCH (10:37)
--- NOTE | 2018-03-13 11:57 | CONSULT ---
Consult Consult Specialty:: Nephrology Reason for Consultation:: CKD - History of Present Illness Chief Complaint: I sent pt in for access to prepare for HD History of Present Illness: Pt is a 62 year old female with pmhx listed who I send in to the hospital for access for HD. She complains of weakness and generalized fatigue. She denies shortness of breath. She does have appeitite. She will need medical clearance before surgery. She denies fevers or chills. Case and plan discussed with Nadine at length who cares for her medical problems and works with dialysis. - Past Medical History [employer]: Yes: Peripheral Neuropathy Cardio/Vascular: Yes: HTN, Hyperlipdemia Pulmonary: Yes: COPD Gastrointestinal: Yes: Gastritis Renal/: Yes: Renal Inusuff ...LMP: 07/25/12 Infectious Disease: Yes: MRSA Psych: Yes: Anxiety, Depression Musculoskeletal: Yes: Chronic low back pain Endocrine: Yes: Hyperthyroidism - Past Surgical History Past Surgical History: Yes: Joint Replacement (hip replacement) - Alcohol/Substance Use Hx Alcohol Use: No History of Substance Use: reports: Marijuana - Smoking History Smoking history: Current every day smoker Have you smoked in the past 12 months: Yes Aproximately how many cigarettes per day: 4 If you are a former smoker, when did you quit?: refused booklet 07/21/14 - Social History Usual Living Arrangement: With Child (youngest son) ADL: Independent Occupation: not working, SSI History of Recent Travel: No Home Medications - Allergies Allergies/Adverse Reactions: Allergies Allergy/AdvReac Type Severity Reaction Status Date / Time levofloxacin [From Levaquin] Allergy Mild Itching Verified 03/12/18 18:36 - Home Medications Home Medications: Ambulatory Orders Cyclobenzaprine HCl [Flexeril -] 10 mg PO HS #7 tablet 01/31/18 Ibuprofen [Motrin -] 400 mg PO QID PRN #28 tablet 02/23/18 Methocarbamol [Robaxin -] 500 mg PO BID PRN #14 tablet 02/23/18 Lidocaine 5% Patch [Lidoderm -] 1 patch TP DAILY #7 patch 03/02/18 Family Disease History - Family Disease History Family Disease History: Other: Father (alive), Mother (alive), Sister (alive), Son (23 yo old - alive - healthy) Review of Systems - Review of Systems Constitutional: reports: Malaise Eyes: reports: No Symptoms HENT: reports: No Symptoms Neck: reports: No Symptoms Cardiovascular: reports: No Symptoms Respiratory: reports: No Symptoms Gastrointestinal: reports: No Symptoms Genitourinary: reports: No Symptoms Musculoskeletal: reports: Back Pain Integumentary: reports: No Symptoms Neurological: reports: No Symptoms Endocrine: reports: No Symptoms Hematology/Lymphatic: reports: No Symptoms Physical Exam Vital Signs: Vital Signs Temperature 98.3 F 03/13/18 06:19 Pulse Rate 86 03/13/18 06:19 Respiratory Rate 18 03/13/18 06:19 Blood Pressure 139/78 03/13/18 06:19 O2 Sat by Pulse Oximetry (%) 97 03/12/18 20:49 Constitutional: Yes: Calm Eyes: Yes: Conjunctiva Clear HENT: Yes: Atraumatic Cardiovascular: Yes: S1, S2 Respiratory: Yes: CTA Bilaterally Gastrointestinal: Yes: Normal Bowel Sounds, Soft Renal/: Yes: WNL Musculoskeletal: Yes: Back Pain Edema: No Neurological: Yes: Oriented Psychiatric: Yes: Oriented Labs: CBC, BMP 03/13/18 05:20 03/13/18 05:20 Laboratory Tests 03/12/18 03/12/18 03/13/18 20:00 20:00 05:20 Hgb 9.4 L 8.7 L Carbon Dioxide Creatinine 6.1 H 03/13/18 05:20 Hgb Carbon Dioxide 19 L Creatinine 5.7 H Imaging - Results Chest X-ray: Report Reviewed Problem List - Problems (1) Acute on chronic kidney failure Code(s): N17.9 - ACUTE KIDNEY FAILURE, UNSPECIFIED; N18.9 - CHRONIC KIDNEY DISEASE, UNSPECIFIED Qualifiers: Acute renal failure type: unspecified Chronic kidney disease stage: stage 4 (severe) Qualified Code(s): N17.9 - Acute kidney failure, unspecified; N18.4 - Chronic kidney disease, stage 4 (severe) Assessment/Plan Current Medications Generic Name Dose Route Start Last Admin Trade Name Freq PRN Reason Stop Dose Admin Albuterol/Ipratropium 1 amp 03/12/18 23:48 Duoneb - NEB Q6H PRN SHORTNESS OF BREATH Amlodipine Besylate 2.5 mg 03/13/18 10:00 03/13/18 10:36 Norvasc - PO 2.5 mg DAILY JACKY Administration Cyclobenzaprine HCl 10 mg 03/13/18 10:00 03/13/18 10:37 Flexeril - PO 10 mg DAILY JACKY Administration Methocarbamol 500 mg 03/13/18 10:00 03/13/18 10:36 Robaxin - PO 500 mg BID JACKY Administration Morphine Sulfate 2 mg 03/13/18 03:49 03/13/18 03:55 Morphine Sulfate IVPUSH 2 mg Q4H PRN Administration PAIN LEVEL 4 - 6 Fluticasone/Salmeterol 1 puff 03/13/18 10:00 03/13/18 10:37 Advair 100mcg/50mcg - IH 1 puff BID JACKY Administration Impression 1. CKD 2. COPD 3. chronic back pain on opioids 4. anemia 5. anxiety 6. hx of nsaid use 7. chf diastolic 8. possible complex renal cyst Plan - avoid nsaids - perop for OR - check iron studies - repeat hg in am - procrit for anemia - avoid nsaids - will follow
[2018-03-13] MEDS ORDERED: EPOETIN ALFA 10,000 UNIT/1 ML VIAL SQ ONE (12:59)
--- NOTE | 2018-03-13 13:26 | PN ---
Progress Note, Physician - Current Medication List Current Medications: Active Medications Albuterol/Ipratropium (Duoneb -) 1 amp NEB Q6H PRN PRN Reason: SHORTNESS OF BREATH Amlodipine Besylate (Norvasc -) 2.5 mg PO DAILY [facility] Last Admin: 03/13/18 10:36 Dose: 2.5 mg Cyclobenzaprine HCl (Flexeril -) 10 mg PO DAILY [facility] Last Admin: 03/13/18 10:37 Dose: 10 mg Epoetin Zachery (Epogen -) 10,000 unit SQ ONCE ONE Stop: 03/13/18 13:00 Methocarbamol (Robaxin -) 500 mg PO BID [facility] Last Admin: 03/13/18 10:36 Dose: 500 mg Morphine Sulfate (Morphine Sulfate) 2 mg IVPUSH Q4H PRN PRN Reason: PAIN LEVEL 4 - 6 Last Admin: 03/13/18 13:00 Dose: 2 mg Fluticasone/Salmeterol (Advair 100mcg/50mcg -) 1 puff IH BID [facility] Last Admin: 03/13/18 10:37 Dose: 1 puff - Objective Vital Signs: Vital Signs Temperature 98.3 F 03/13/18 06:19 Pulse Rate 86 03/13/18 06:19 Respiratory Rate 18 03/13/18 06:19 Blood Pressure 139/78 03/13/18 06:19 O2 Sat by Pulse Oximetry (%) 97 03/12/18 20:49 Labs: CBC, BMP 03/13/18 05:20 03/13/18 05:20 INR, PTT INR 1.14 (0.83-1.09) H 03/12/18 20:00 Problem List - Problems (1) Chronic kidney disease (CKD) Assessment/Plan: -admit to med/surg for AV fistula creation -vascular surgery consult -renal consult -cardio consult -type and screen -venous mapping of upper ext done previously Code(s): N18.9 - CHRONIC KIDNEY DISEASE, UNSPECIFIED Qualifiers: Chronic kidney disease stage: stage 4 (severe) Qualified Code(s): N18.4 - Chronic kidney disease, stage 4 (severe) (2) Chronic low back pain Assessment/Plan: -tylenol prn -robaxin, flexeril Code(s): M54.5 - LOW BACK PAIN; G89.29 - OTHER CHRONIC PAIN Qualifiers: Back pain laterality: midline Sciatica presence: without sciatica Qualified Code(s): M54.5 - Low back pain; G89.29 - Other chronic pain (3) COPD (chronic obstructive pulmonary disease) Assessment/Plan: -smoking cessation -advair 1 puff bid -duonebs q6hrs prn Code(s): J44.9 - CHRONIC OBSTRUCTIVE PULMONARY DISEASE, UNSPECIFIED Qualifiers: COPD type: chronic bronchitis Chronic bronchitis type: unspecified Qualified Code(s): J42 - Unspecified chronic bronchitis (4) Hyperthyroidism Code(s): E05.90 - THYROTOXICOSIS, UNSP WITHOUT THYROTOXIC CRISIS OR STORM (5) CHF (congestive heart failure) Assessment/Plan: -stable Code(s): I50.9 - HEART FAILURE, UNSPECIFIED (6) Hypertension Assessment/Plan: -amlodipine 2.5mg po daily Code(s): I10 - ESSENTIAL (PRIMARY) HYPERTENSION Qualifiers: Hypertension type: essential hypertension Qualified Code(s): I10 - Essential (primary) hypertension
[2018-03-13] MEDS ORDERED: diphenhydrAMINE HCL 25 MG CAPSULE (FP) PO PRN (19:41)
[2018-03-14] MEDS ORDERED: PT OWN MED DRAWER 7, Y5N ONE (09:30)
[2018-03-14] MEDS ORDERED: MIDAZOLAM HCL 2 MG/2 ML SINGLE DOSE VIAL ONE (09:42)
[2018-03-14] MEDS: FLUTICASONE/SALMETEROL 100 MCG/50 MCG DISKUS IH SCH (09:50)
[2018-03-14] MEDS: METHOCARBAMOL 500 MG TABLET PO SCH (09:51)
[2018-03-14] MEDS: amLODIPine BESYLATE 2.5 MG TABLET (FP) PO SCH (09:51)
[2018-03-14] MEDS: CYCLOBENZAPRINE HCL 10 MG TABLET (FP) PO SCH (09:51)
--- NOTE | 2018-03-14 10:01 | EKG ---
Test Reason : Blood Pressure : / mmHG Vent. Rate : 084 BPM Atrial Rate : 084 BPM P-R Int : 182 ms QRS Dur : 076 ms QT Int : 368 ms P-R-T Axes : 050 004 105 degrees QTc Int : 434 ms NORMAL SINUS RHYTHM NONSPECIFIC T WAVE ABNORMALITY ABNORMAL ECG WHEN COMPARED WITH ECG OF 12-MAR-2018 19:44, NO SIGNIFICANT CHANGE WAS FOUND Confirmed by JAKY LU MD ([id number]) on 03/14/2018 10:01:27 AM Referred By: EDILBERTO Confirmed By:JAKY LU MD
[2018-03-14] MEDS ORDERED: POVIDONE-IODINE OINTMENT 10% - 28.4 GM TUBE ONE (10:12)
[2018-03-14] MEDS ORDERED: LIDOCAINE HCL 1%, 10 MG/ML (20ML VIAL) ONE (10:12)
[2018-03-14] MEDS ORDERED: HEPARIN NA (PORCINE) 5,000 UNITS/ML 1ML VIAL ONE (10:12)
--- NOTE | 2018-03-14 10:14 | EKG ---
Test Reason : Blood Pressure : / mmHG Vent. Rate : 085 BPM Atrial Rate : 085 BPM P-R Int : 178 ms QRS Dur : 080 ms QT Int : 364 ms P-R-T Axes : 047 017 079 degrees QTc Int : 433 ms NORMAL SINUS RHYTHM SEPTAL INFARCT (CITED ON OR BEFORE 16-NOV-2017) ABNORMAL ECG Confirmed by JAKY LU MD ([id number]) on 03/14/2018 10:14:20 AM Referred By: Confirmed By:JAKY LU MD
[2018-03-14] MEDS ORDERED: PAPAVERINE HCL 30 MG/1 ML 10 ML VIAL NR ONE (10:31)
[2018-03-14] MEDS ORDERED: PROPOFOL 20 ML ONE ×3 (10:46→11:46)
[2018-03-14] MEDS ORDERED: ceFAZolin SODIUM 1 GM VIAL ONE (10:56)
[2018-03-14] MEDS ORDERED: ceFAZolin SODIUM 1 GM VIAL IVPB ONE (11:00)
--- NOTE | 2018-03-14 11:26 | PN ---
Progress Note, Physician - Current Medication List Current Medications: Active Medications Albuterol/Ipratropium (Duoneb -) 1 amp NEB Q6H PRN PRN Reason: SHORTNESS OF BREATH Amlodipine Besylate (Norvasc -) 2.5 mg PO DAILY [facility] Last Admin: 03/14/18 09:51 Dose: 2.5 mg Cyclobenzaprine HCl (Flexeril -) 10 mg PO DAILY [facility] Last Admin: 03/14/18 09:51 Dose: 10 mg Diphenhydramine HCl (Benadryl -) 25 mg PO Q12H PRN PRN Reason: ITCHING Last Admin: 03/13/18 20:54 Dose: 25 mg Methocarbamol (Robaxin -) 500 mg PO BID [facility] Last Admin: 03/14/18 09:51 Dose: 500 mg Morphine Sulfate (Morphine Sulfate) 2 mg IVPUSH Q4H PRN PRN Reason: PAIN LEVEL 4 - 6 Last Admin: 03/13/18 20:38 Dose: 2 mg Fluticasone/Salmeterol (Advair 100mcg/50mcg -) 1 puff IH BID [facility] Last Admin: 03/14/18 09:50 Dose: 1 puff - Objective Vital Signs: Vital Signs Temperature 97.8 F 03/14/18 09:00 Pulse Rate 89 03/14/18 09:00 Respiratory Rate 18 03/14/18 09:00 Blood Pressure 149/80 03/14/18 09:00 O2 Sat by Pulse Oximetry (%) 97 03/14/18 09:00 Cardiovascular: Yes: S1, S2 Respiratory: Yes: Regular, CTA Bilaterally Gastrointestinal: Yes: Normal Bowel Sounds, Soft. No: Tenderness Labs: CBC, BMP 03/13/18 05:20 03/13/18 05:20 INR, PTT INR 1.14 (0.83-1.09) H 03/12/18 20:00 Problem List - Problems (1) Chronic kidney disease (CKD) Assessment/Plan: -admit to med/surg for AV fistula creation -vascular surgery consult -renal consult -cardio consult -type and screen -ekg nsr -venous mapping of upper ext done previously -Patient medically optimized for procedure Code(s): N18.9 - CHRONIC KIDNEY DISEASE, UNSPECIFIED Qualifiers: Chronic kidney disease stage: stage 4 (severe) Qualified Code(s): N18.4 - Chronic kidney disease, stage 4 (severe) (2) Chronic low back pain Assessment/Plan: -tylenol prn -robaxin, flexeril Code(s): M54.5 - LOW BACK PAIN; G89.29 - OTHER CHRONIC PAIN Qualifiers: Back pain laterality: midline Sciatica presence: without sciatica Qualified Code(s): M54.5 - Low back pain; G89.29 - Other chronic pain (3) COPD (chronic obstructive pulmonary disease) Assessment/Plan: -smoking cessation -advair 1 puff bid -duonebs q6hrs prn Code(s): J44.9 - CHRONIC OBSTRUCTIVE PULMONARY DISEASE, UNSPECIFIED Qualifiers: COPD type: chronic bronchitis Chronic bronchitis type: unspecified Qualified Code(s): J42 - Unspecified chronic bronchitis (4) Hyperthyroidism Code(s): E05.90 - THYROTOXICOSIS, UNSP WITHOUT THYROTOXIC CRISIS OR STORM (5) CHF (congestive heart failure) Assessment/Plan: -stable Code(s): I50.9 - HEART FAILURE, UNSPECIFIED (6) Hypertension Assessment/Plan: -amlodipine 2.5mg po daily Code(s): I10 - ESSENTIAL (PRIMARY) HYPERTENSION Qualifiers: Hypertension type: essential hypertension Qualified Code(s): I10 - Essential (primary) hypertension
--- NOTE | 2018-03-14 12:43 | CONSULT ---
Consult Reason for Consultation:: 62 year old woman with CKD stage 5 who needs AV access for planned hemodialysis. SHe is left handed. Previous w/u showed no vein available for fistula. 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: Yes: Dementia, Peripheral Neuropathy Cardio/Vascular: Yes: HTN, Hyperlipdemia Pulmonary: Yes: COPD Gastrointestinal: Yes: Gastritis Renal/: Yes: Renal Inusuff ...LMP: 07/25/12 Infectious Disease: Yes: MRSA Psych: Yes: Anxiety, Depression Musculoskeletal: Yes: Chronic low back pain Endocrine: Yes: Hyperthyroidism - Past Surgical History Past Surgical History: Yes: Joint Replacement (hip replacement) - Alcohol/Substance Use Hx Alcohol Use: No History of Substance Use: reports: Marijuana - Smoking History Smoking history: Current every day smoker Have you smoked in the past 12 months: Yes Aproximately how many cigarettes per day: 4 If you are a former smoker, when did you quit?: refused booklet 07/21/14 - Social History Usual Living Arrangement: With Child (youngest son) ADL: Independent Occupation: not working, SSI History of Recent Travel: No Home Medications - Allergies Allergies/Adverse Reactions: Allergies Allergy/AdvReac Type Severity Reaction Status Date / Time levofloxacin [From Levaquin] Allergy Mild Itching Verified 03/12/18 18:36 - Home Medications Home Medications: Ambulatory Orders Cyclobenzaprine HCl [Flexeril -] 10 mg PO HS #7 tablet 01/31/18 Ibuprofen [Motrin -] 400 mg PO QID PRN #28 tablet 02/23/18 Methocarbamol [Robaxin -] 500 mg PO BID PRN #14 tablet 02/23/18 Lidocaine 5% Patch [Lidoderm -] 1 patch TP DAILY #7 patch 03/02/18 Family Disease History - Family Disease History Family Disease History: Other: Father (alive), Mother (alive), Sister (alive), Son (23 yo old - alive - healthy) Physical Exam Vital Signs: Vital Signs Temperature 97.8 F 03/14/18 09:00 Pulse Rate 89 03/14/18 09:00 Respiratory Rate 18 03/14/18 09:00 Blood Pressure 149/80 03/14/18 09:00 O2 Sat by Pulse Oximetry (%) 97 03/14/18 09:00 Constitutional: Yes: No Distress Eyes: Yes: Conjunctiva Clear HENT: Yes: WNL Neck: Yes: Supple Cardiovascular: Yes: Regular Rate and Rhythm Respiratory: Yes: WNL Gastrointestinal: Yes: Soft Extremities: Yes: Other (no edema. 2+ Right brachial and radial pulses) Labs: CBC, BMP 03/13/18 05:20 03/13/18 05:20 Problem List - Problems (1) Chronic kidney disease (CKD) Assessment/Plan: Will proceed with placement of AV graft right arm Code(s): N18.9 - CHRONIC KIDNEY DISEASE, UNSPECIFIED Qualifiers: Chronic kidney disease stage: stage 4 (severe) Qualified Code(s): N18.4 - Chronic kidney disease, stage 4 (severe)
--- NOTE | 2018-03-14 12:45 | OP ---
Operative Note - Note: Operative Date: 03/14/18 Pre-Operative Diagnosis: CKD Operation: Placement AV graft right arm Implants: 4-7 mm Propaten graft Post-Operative Diagnosis: Same as Pre-op Surgeon: Jr Fry Anesthesiologist/COOK JELLY: Tobias Rios Anesthesia: General Estimated Blood Loss (mls): 30
[2018-03-14] MEDS ORDERED: ALBUTEROL SO4 2.5/IPRATROPIUM 0.5 INH SOL 3 ML VIAL.NEB. NEB PRN (12:58)
[2018-03-14] MEDS ORDERED: MORPHINE SULFATE 2 MG/ML VIAL IVPUSH PRN (12:58)
[2018-03-14] MEDS: MORPHINE SULFATE 2 MG/ML VIAL IVPUSH PRN (12:58)
[2018-03-14] MEDS ORDERED: diphenhydrAMINE HCL 25 MG CAPSULE (FP) PO PRN (12:58)
[2018-03-14] MEDS ORDERED: morphine SULFATE 4 MG/ML VIAL ONE (13:01)
[2018-03-14] MEDS ORDERED: oxyCODONE HCL 5 MG TABLET PO PRN ×2 (13:10→13:11)
[2018-03-14] MEDS ORDERED: ACETAMINOPHEN 325 MG TABLET (FP) PO PRN ×2 (13:10→13:11)
--- NOTE | 2018-03-14 14:28 | OP ---
DATE OF OPERATION: 03/14/2018 SURGEON: Jr Reyna MD PROCEDURE: Placement arteriovenous graft, right arm. PREOPERATIVE DIAGNOSIS: Chronic renal disease. POSTOPERATIVE DIAGNOSIS: Chronic renal disease. ANESTHESIA: General. ANESTHESIOLOGIST: YARA Marvin OPERATIVE FINDINGS: The right axillary artery and vein were adequate size for placement of AV graft. OPERATIVE PROCEDURE: Following routine patient identification with side and site verification, general anesthesia was induced. The right arm and axilla were prepped with ChloraPrep. Xylocaine 1% was infiltrated in the axilla, and a longitudinal incision made. Subcutaneous tissues were divided using cautery for hemostasis. The axillary vein was identified, was mobilized form the surrounding tissues. Side branches were ligated with silk ties and divided. The vein was encircled with a vessel loop. The adjacent axillary artery was then exposed and dissected free and encircled with vessel loops. A counter incision was made in the skin on the anterior aspect of the arm proximal to the antecubital crease. A curved metal tunnel passed in the subcutaneous plane between the 2 incisions, and a 4-7 mm Propaten graft was passed through the tunnel with the small end lying next to the artery. The tunneler was then passed along the anterior aspect of the arm, and the remainder of the graft tunneled in a loop configuration. The artery was then occluded with vascular clamps and opened on exposed surface with a 6-mm arteriotomy. The small end of the graft was beveled and anastomosed to the side of the artery using running sutures of 6-0 Prolene. Prior to completion of the suture line, the artery was allowed to back-bleed and flush. The graft was occluded with a vascular clamp. Suture line was completed, and the artery was released. Bleeding from the suture line was controlled with Surgicel. The graft was pulled taut in its tunnel. The vein was occluded with bulldog clamp and vessel loop and opened with a longitudinal venotomy measuring approximately 12 mm. The end of the graft was beveled and anastomosed to the side of the vein with running suture of 6-0 Prolene. Prior to completion of the suture line, the vein was allowed to back-bleed and flush, and the graft was flushed. Suture line was completed, and all vessels were released. There was good flow through both anastomoses with a good pulse in the graft. Bleeding from the suture line was controlled with Surgicel. When hemostasis was adequate, the wounds were closed with interrupted suture of 3-0 Vicryl subcutaneous tissues and skin alla. Sterile dressings were applied, and the patient was taken to the recovery room in stable condition. JR REYNA M.D. [id number]
--- NOTE | 2018-03-14 14:54 | DS ---
Physical Examination Vital Signs: Vital Signs Temperature 98.0 F 03/14/18 13:33 Pulse Rate 76 03/14/18 13:33 Respiratory Rate 16 03/14/18 13:33 Blood Pressure 104/63 03/14/18 13:33 O2 Sat by Pulse Oximetry (%) 95 03/14/18 13:20 Labs: CBC, BMP 03/13/18 05:20 03/13/18 05:20 Discharge Summary Reason For Visit: BACK PAIN/END-STAGE RENAL DISEASE Current Active Problems Acute on chronic kidney failure (Acute) Chronic low back pain (Acute) Condition: Improved - Instructions Disposition: HOME - Home Medications Comprehensive Discharge Medication List: Ambulatory Orders Cyclobenzaprine HCl [Flexeril -] 10 mg PO HS #7 tablet 01/31/18 Ibuprofen [Motrin -] 400 mg PO QID PRN #28 tablet 02/23/18 Methocarbamol [Robaxin -] 500 mg PO BID PRN #14 tablet 02/23/18 Lidocaine 5% Patch [Lidoderm -] 1 patch TP DAILY #7 patch 03/02/18 Albuterol 2.5/Ipratropium 0.5 [Duoneb -] 1 amp NEB Q6H PRN amp 03/14/18 Salmeterol/Fluticasone [Advair 100Mcg/50Mcg -] 1 puff IH BID inhaler 03/14/18
[2018-03-14 15:22] VITALS: PULSE 81; TEMP 97.2
[2018-03-14 15:26] VITALS: BP 95/68
--- NOTE | 2018-03-14 16:20 | PN ---
Progress Note, Physician History of Present Illness: Pt seen and examined at bedside. She had the graft placed earlier today. She is awake and appears comfortable. She completed her dinner. Her family are bedside. - Objective Vital Signs: Vital Signs Temperature 97.2 F L 03/14/18 15:09 Pulse Rate 81 03/14/18 15:09 Respiratory Rate 20 03/14/18 15:09 Blood Pressure 95/68 03/14/18 15:09 O2 Sat by Pulse Oximetry (%) 95 03/14/18 13:20 Constitutional: Yes: Calm Eyes: Yes: Conjunctiva Clear HENT: Yes: Atraumatic Cardiovascular: Yes: S1, S2 Respiratory: Yes: CTA Bilaterally Gastrointestinal: Yes: Normal Bowel Sounds, Soft Genitourinary: Yes: WNL Extremities: Yes: Other (graft with thrill and bruit) Edema: No Neurological: Yes: Confusion Labs: CBC, BMP 03/13/18 05:20 03/13/18 05:20 INR, PTT INR 1.14 (0.83-1.09) H 03/12/18 20:00 Problem List - Problems (1) Acute on chronic kidney failure Code(s): N17.9 - ACUTE KIDNEY FAILURE, UNSPECIFIED; N18.9 - CHRONIC KIDNEY DISEASE, UNSPECIFIED Qualifiers: Acute renal failure type: unspecified Chronic kidney disease stage: stage 4 (severe) Qualified Code(s): N17.9 - Acute kidney failure, unspecified; N18.4 - Chronic kidney disease, stage 4 (severe) Assessment/Plan Current Medications Generic Name Dose Route Start Last Admin Trade Name Freq PRN Reason Stop Dose Admin Albuterol/Ipratropium 1 amp 03/12/18 23:48 Duoneb - NEB Q6H PRN SHORTNESS OF BREATH Amlodipine Besylate 2.5 mg 03/13/18 10:00 03/13/18 10:36 Norvasc - PO 2.5 mg DAILY JACYK Administration Cyclobenzaprine HCl 10 mg 03/13/18 10:00 03/13/18 10:37 Flexeril - PO 10 mg DAILY JACKY Administration Methocarbamol 500 mg 03/13/18 10:00 03/13/18 10:36 Robaxin - PO 500 mg BID JACKY Administration Morphine Sulfate 2 mg 03/13/18 03:49 03/13/18 03:55 Morphine Sulfate IVPUSH 2 mg Q4H PRN Administration PAIN LEVEL 4 - 6 Fluticasone/Salmeterol 1 puff 03/13/18 10:00 03/13/18 10:37 Advair 100mcg/50mcg - IH 1 puff BID JACKY Administration Impression 1. CKD 2. COPD 3. chronic back pain on opioids 4. anemia 5. anxiety 6. hx of nsaid use 7. chf diastolic 8. possible complex renal cyst Plan - pt had graft placed - will see in office next week for labs - family at bedside pt will go home with her daughter in law Nadine - will check iron studies - procrit for anemia - avoid nsaids - will follow
[2018-03-14] MEDS ORDERED: FLUTICASONE/SALMETEROL 100 MCG/50 MCG DISKUS IH SCH (22:00)
[2018-03-14] MEDS ORDERED: METHOCARBAMOL 500 MG TABLET PO SCH (22:00)
[2018-03-15] MEDS ORDERED: amLODIPine BESYLATE 2.5 MG TABLET (FP) PO SCH (10:00)
[2018-03-15] MEDS ORDERED: CYCLOBENZAPRINE HCL 10 MG TABLET (FP) PO SCH (10:00)
== END 2018-03-14 15:49 | disposition home or self-care (01) | DRG 173 ==
LOC: JER 18:33 → JERBED 20:49 → J7W 03-13 00:08
PROVIDERS: ADMIT Family Medicine; ATTEND Family Medicine
PROC: 03150ZD Bypass Right Axillary Artery to Upper Arm Vein, Open Approach (ICD-10-PCS; principal; 2018-03-14 09:30)
DX: I13.0 Hypertensive heart and chronic kidney disease with heart failure and stage 1 through stage 4 chronic kidney disease, or unspecified chronic kidney disease (principal); N17.9 Acute kidney failure, unspecified; N18.4 Chronic kidney disease, stage 4 (severe); I50.32 Chronic diastolic (congestive) heart failure; D64.9 Anemia, unspecified; M51.26 Other intervertebral disc displacement, lumbar region; J44.9 Chronic obstructive pulmonary disease, unspecified; E78.5 Hyperlipidemia, unspecified; F41.9 Anxiety disorder, unspecified; E05.90 Thyrotoxicosis, unspecified without thyrotoxic crisis or storm; F17.210 Nicotine dependence, cigarettes, uncomplicated
CPT/HCPCS: 36415; 71046-TC-FY; 80048; 80053; 81003; 81015; 85025; 85027; 85610; 85730; 86850; 86900; 86901; 93005; 93010; 94760; 99282-25; J0885; J1644

== ENCOUNTER 2018-04-18 19:53 | Emergency (ER) | payer OTHER ==
--- NOTE | 2018-04-18 20:33 | PDOC ---
Rapid Medical Evaluation Medical Evaluation: Allergies Allergy/AdvReac Type Severity Reaction Status Date / Time levofloxacin [From Levaquin] Allergy Mild Itching Verified 03/12/18 18:36 04/18/18 20:31 I have performed a brief in-person evaluation of this patient. The patient presents with a chief complaint of:abscess to right axila for one week Pertinent physical exam findings:fluctuant abscess to right axilary area I have ordered the following:nothing The patient will proceed to the ED for further evaluation.
[2018-04-18 20:35] VITALS: BP 126/76; PULSE 91; TEMP 98; BMI 21.2
[2018-04-18] MEDS ORDERED: ACETAMINOPHEN 500 MG TABLET (FP) PO ONE (21:04)
--- NOTE | 2018-04-18 21:05 | PDOC ---
History of Present Illness - General Chief Complaint: Abscess Boil Stated Complaint: right armpit pain Time Seen by Provider: 04/18/18 20:50 History Source: Patient Exam Limitations: No Limitations - History of Present Illness Initial Comments: 04/18/18 21:05 62-year-old female presents the emergency room for evaluation of right axillary abscess for the past 4 days unrelieved with warm soaks. Patient denies fever, chills or previous abscessed area. Patient denies history of MRSA. Timing/Duration: getting worse Severity: moderate Associated Symptoms: reports: denies symptoms Past History - Travel Traveled outside of the country in the last 30 days: No - Past Medical History Allergies/Adverse Reactions: Allergies Allergy/AdvReac Type Severity Reaction Status Date / Time levofloxacin [From Levaquin] Allergy Mild Itching Verified 03/12/18 18:36 Home Medications: Ambulatory Orders Cyclobenzaprine HCl [Flexeril -] 10 mg PO HS #7 tablet 01/31/18 Ibuprofen [Motrin -] 400 mg PO QID PRN #28 tablet 02/23/18 Methocarbamol [Robaxin -] 500 mg PO BID PRN #14 tablet 02/23/18 Lidocaine 5% Patch [Lidoderm -] 1 patch TP DAILY #7 patch 03/02/18 Albuterol 2.5/Ipratropium 0.5 [Duoneb -] 1 amp NEB Q6H PRN amp 03/14/18 Salmeterol/Fluticasone [Advair 100Mcg/50Mcg -] 1 puff IH BID inhaler 03/14/18 Sulfamethoxazole/Trimethoprim [Bactrim Ds -] 1 tab PO BID #14 tablet 04/18/18 Anemia: Yes Asthma: Yes Cancer: No Cardiac Disorders: Yes CVA: No COPD: Yes CHF: No DVT: No Dementia: No Diabetes: No GI Disorders: Yes (bleeding ulcer) Disorders: Yes (KIDNEY STONE;) HTN: Yes Hypercholesterolemia: Yes Kidney Stones: Yes Liver Disease: No Psychiatric Problems: Yes (ANXIETY, DEPRESSION) Seizures: No Thyroid Disease: Yes (hypothyroid) - Surgical History Abdominal Surgery: No Appendectomy: No Cardiac Surgery: No Cholecystectomy: No Lung Surgery: No Neurologic Surgery: No Orthopedic Surgery: Yes (B/L hip replacement (rt 2009; left 2012)) - Immunization History Td Vaccination: Yes TDAP Vaccination: No Immunization Up to Date: Yes - Suicide/Smoking/Psychosocial Hx Smoking Status: Yes Smoking History: Current every day smoker Years of Tobacco Use: 30 Have you smoked in the past 12 months: Yes Number of Cigarettes Smoked Daily: 6 If you are a former smoker, when did you quit?: refused booklet 07/21/14 Cigars Per Day: 0 Information on smoking cessation initiated: No 'Breaking Loose' booklet given: 03/08/18 Hx Alcohol Use: No Drug/Substance Use Hx: No Substance Use Type: None Hx Substance Use Treatment: Yes Patient Lives Alone: No Lives with/in: spouse/SO Review of Systems - Review of Systems Able to Perform ROS?: Yes Constitutional: No: Symptoms Reported Integumentary: Yes: Erythema, Lumps Neurological: No: Symptoms reported *Physical Exam - Vital Signs Last Vital Signs Temp Pulse Resp BP Pulse Ox 98 F 91 H 19 126/76 100 04/18/18 20:33 04/18/18 20:33 04/18/18 20:33 04/18/18 20:33 04/18/18 20:33 - Physical Exam General Appearance: Yes: Nourished, Appropriately Dressed. No: Apparent Distress Neck: positive: Supple. negative: Lymphadenopathy (R), Lymphadenopathy (L) Integumentary: positive: Other (Noted 2 x 1 fluctuant abscess to right axillary region. Surrounding skin intact.) Neurologic: positive: Motor Strength 5/5 (ambulatory with cane) Moderate Sedation - Procedure Monitoring Vital Signs: Procedure Monitoring Vital Signs Temperature 98 F 04/18/18 20:33 Pulse Rate 91 H 04/18/18 20:33 Respiratory Rate 19 04/18/18 20:33 Blood Pressure 126/76 04/18/18 20:33 O2 Sat by Pulse Oximetry (%) 100 04/18/18 20:33 Procedures - Incision and Drainage I&D Site: Right: Axilla Betadine cleansed: Yes Anesthesia: 1% Lidocaine Volume(ml): 1 Blade Size: 18-gauge Attempts: 1 Complications: none Dressing: Yes (dry sterile dressing) Medical Decision Making - Medical Decision Making 04/18/18 21:07 Patient with right axillary abscess. I&D performed without difficulty. Wound culture sent. Patient placed on Bactrim. Patient given supportive care instructions for discharge. *DC/Admit/Observation/Transfer Diagnosis at time of Disposition: Abscess - Discharge Dispostion Disposition: HOME Condition at time of disposition: Improved - Prescriptions Prescriptions: Sulfamethoxazole/Trimethoprim [Bactrim Ds -] 1 tab PO BID #14 tablet - Referrals - Patient Instructions Printed Discharge Instructions: DI for Incision and Drainage of a Skin Abscess Additional Instructions: PLease apply warm soaks 4 times a day for 15 minutes of constant heat . please take antibiotics as prescribed. wear loosefitting clothing to avoid friction irritation - Post Discharge Activity
[2018-04-18] MEDS ORDERED: ACETAMINOPHEN 325 MG TABLET (FP) ONE (21:06)
== END 2018-04-18 21:11 | disposition home or self-care (01) ==
LOC: JERFT 19:53 → JER 19:53 → JERFT 21:11
PROC: 0X940ZZ Drainage of Right Axilla, Open Approach (ICD-10-PCS; principal; 2018-04-18)
DX: L02.411 Cutaneous abscess of right axilla (principal); D64.9 Anemia, unspecified; J45.909 Unspecified asthma, uncomplicated; J44.9 Chronic obstructive pulmonary disease, unspecified; I10 Essential (primary) hypertension; E78.00 Pure hypercholesterolemia, unspecified; E03.9 Hypothyroidism, unspecified; F41.8 Other specified anxiety disorders; F32.9 Major depressive disorder, single episode, unspecified; Z96.643 Presence of artificial hip joint, bilateral; Z87.19 Personal history of other diseases of the digestive system; Z87.442 Personal history of urinary calculi
CPT/HCPCS: 87070; 87186; 87205; 99281-25

== ENCOUNTER 2018-04-25 13:28 | Inpatient (IN) | payer OTHER ==
--- NOTE | 2018-04-25 13:34 | PDOC ---
History of Present Illness - General Stated Complaint: WEAKNESS,DIZZINESS Time Seen by Provider: 04/25/18 13:34 History Source: Patient Exam Limitations: Other (pt very poor historian) - History of Present Illness Initial Comments: Pt is a 63 yo F, with PMH of HTN, HLD, CKD on HD (T/R/Sa), COPD, anemia, CHF, who is presenting to the ER for complaints of R arm abscess and pain. The pt was seen in the ER on 04/18 for the same complaint. Pt states she came to the ER today because the area is become more red and painful. The boil was drained on 04/18 and pt was prescribed Bactrim for 10 days. Pt is a very poor historian , but is accompanied by her mobile home laborer. The aide states the pt has not been taking tylenol or using warm compresses as she was prescribed, but she did take the full course of bactrim. Pt denies any fevers/chills, headache, vision changes, syncope, chest pain, palpitations, SOB, nausea/vomiting, abdominal pain , urinary symptoms, diarrhea/constipation, or leg swelling. 04/26/18 08:11 Past History - Travel Traveled outside of the country in the last 30 days: No Close contact w/someone who was outside of country & ill: No - Past Medical History Allergies/Adverse Reactions: Allergies Allergy/AdvReac Type Severity Reaction Status Date / Time levofloxacin [From Levaquin] Allergy Mild Itching Verified 03/12/18 18:36 Home Medications: Ambulatory Orders Cyclobenzaprine HCl [Flexeril -] 10 mg PO HS #7 tablet 01/31/18 Ibuprofen [Motrin -] 400 mg PO QID PRN #28 tablet 02/23/18 Methocarbamol [Robaxin -] 500 mg PO BID PRN #14 tablet 02/23/18 Lidocaine 5% Patch [Lidoderm -] 1 patch TP DAILY #7 patch 03/02/18 Albuterol 2.5/Ipratropium 0.5 [Duoneb -] 1 amp NEB Q6H PRN amp 03/14/18 Salmeterol/Fluticasone [Advair 100Mcg/50Mcg -] 1 puff IH BID inhaler 03/14/18 Sulfamethoxazole/Trimethoprim [Bactrim Ds -] 1 tab PO BID #14 tablet 04/18/18 Anemia: Yes Asthma: Yes Cancer: No Cardiac Disorders: Yes CVA: No COPD: Yes CHF: No DVT: No Dementia: No Diabetes: No GI Disorders: Yes (bleeding ulcer) Disorders: Yes (KIDNEY STONE;) HTN: Yes Hypercholesterolemia: Yes Kidney Stones: Yes Liver Disease: No Psychiatric Problems: Yes (ANXIETY, DEPRESSION) Seizures: No Thyroid Disease: Yes (hypothyroid) - Surgical History Abdominal Surgery: No Appendectomy: No Cardiac Surgery: No Cholecystectomy: No Lung Surgery: No Neurologic Surgery: No Orthopedic Surgery: Yes (B/L hip replacement (rt 2009; left 2012)) - Immunization History Td Vaccination: Yes TDAP Vaccination: No Immunization Up to Date: Yes - Suicide/Smoking/Psychosocial Hx Smoking Status: Yes Smoking History: Current every day smoker Years of Tobacco Use: 30 Have you smoked in the past 12 months: Yes Number of Cigarettes Smoked Daily: 6 If you are a former smoker, when did you quit?: refused booklet 07/21/14 Cigars Per Day: 0 'Breaking Loose' booklet given: 03/08/18 Hx Alcohol Use: No Drug/Substance Use Hx: No Substance Use Type: None Hx Substance Use Treatment: Yes Review of Systems - Review of Systems Able to Perform ROS?: Yes Is the patient limited Danish proficient: No Constitutional: Yes: Weight Stable. No: Chills, Diaphoresis, Fever, Loss of Appetite HEENTM: No: Recent change in vision, Nose Congestion, Hearing Loss, Throat Swelling Respiratory: No: Cough, Orthopnea, Shortness of Breath Cardiac (ROS): No: Chest Pain, Edema, Irregular Heart Rate, Lightheadedness, Palpitations, Syncope, Chest Tightness ABD/GI: No: Constipated, Diarrhea, Nausea, Poor Appetite, Poor Fluid Intake, Vomiting, Abdominal cramping : No: Burning, Flank Pain, Pain, Urgency Musculoskeletal: No: Back Pain, Joint Pain Integumentary: Yes: See HPI, Erythema, Lesions (small abscess under R axilla, which was recently drained and has refilled, causing pain). No: Rash Neurological: No: Headache, Paresthesia, Tingling, Weakness, Unsteady Gait, Ataxia, Dizziness Psychiatric: No: Change in Appetite Endocrine: No: Change in Weight Hematologic/Lymphatic: Yes: Anemia. No: Blood Clots, Easy Bleeding, Easy Bruising All Other Systems: Reviewed and Negative *Physical Exam - Physical Exam General Appearance: Yes: Nourished, Appropriately Dressed. No: Apparent Distress HEENT: positive: EOMI, TEO, Normal ENT Inspection, Normal Voice, Pharynx Normal , Hearing Grossly Normal. negative: Pharyngeal Erythema, Tonsillar Exudate, Tonsillar Erythema, Nasal Congestion Neck: positive: Trachea midline, Supple. negative: Tender, Rigid, Lymphadenopathy (R), Lymphadenopathy (L) Respiratory/Chest: positive: Rhonchi (coarse breath sounds b/l, pt not complaining of any SOB). negative: Chest Tender, Lungs Clear, Normal Breath Sounds, Respiratory Distress, Accessory Muscle Use Cardiovascular: positive: Regular Rhythm, Regular Rate, S1, S2. negative: Edema , JVD, Murmur Vascular Pulses: Carotid (R): 4+, Carotid (L): 4+ Gastrointestinal/Abdominal: positive: Normal Bowel Sounds, Flat, Soft. negative : Tender, Organomegaly, Pulsatile Mass, Distended, Guarding Rectal Exam: positive: deferred Lymphatic: negative: Adenopathy, Tenderness Musculoskeletal: positive: Normal Inspection. negative: CVA Tenderness Extremity: positive: Normal Capillary Refill, Normal Inspection, Normal Range of Motion, Pelvis Stable. negative: Tender Integumentary: positive: Dry, Warm, Other (Area of erythema surrounding ~1 cm soft collection under R axilla. Site is erythematous and warm without streaking. ). negative: Normal Color Neurologic: positive: fast food cook II-XII NML intact, Fully Oriented, Alert, Normal Response, Motor Strength 5/5. negative: Normal Mood/Affect (pt has odd responses and is poor historian.) ED Treatment Course - LABORATORY CBC & Chemistry Diagram: 04/25/18 14:42 04/25/18 14:42 Medical Decision Making - Medical Decision Making Pt was seen at bedside, also will be seen by attending Dr. Chaparro. Pt presenting with complaints of R arm pain due to an abscess. Pt was seen in the ER on 04/18 for the same complaint. Pt states she came to the ER today because the area is become more red and painful. The boil was drained on 04/18 and pt was prescribed Bactrim for 10 days. Pt is a very poor historian, but is accompanied by her mobile home laborer. The aide states the pt has not been taking tylenol or using warm compresses as she was prescribed, but she did take the full course of bactrim. Pt denies any fevers/chills, headache, vision changes, syncope, chest pain, palpitations, SOB, nausea/vomiting, abdominal pain, urinary symptoms, diarrhea/constipation, or leg swelling. PE showed ~1 cm boil under R arm near R axilla, mild erythema and mild warmth, with erythema extending towards the graft site. Posterior lung sounds coarse b/ l. Considering abscess with cellulitis versus localized boil with no surrounding infection. Ordered work-up including CBC, CMP, and blood cultures. Provided 1 g ofirmev for improvement of pain. Will continue to reassess pt and monitor for symptomatic improvement. Pt will most likely be admitted considering failed outpatient antibiotic treatment, and potential infection encroaching on AV graft site. 04/25/18 14:47 CBC shows anemia within pt baseline, no increased WBC. CMP within pt baseline, Cr improved from last visit (4.5) 04/25/18 15:32 Dr. Coe (renal) saw pt at bedside, will provide dialysis for pt tomorrow and agrees with plan for inpatient stay, considering failed outpatient management. Because area of erythema is encroaching the site of L AV graft, will call Dr. Ballard to discuss intervention. Pt failed outpatient treatment with Bactrim Started 1 g IV vancomycin. 04/25/18 16:24 Admitting team was contacted and accepted pt for inpatient admission for continued antibiotics. Sent pt for US of R arm to determine graft involvement per Dr. Ballard. When I left shift, pt was in US and had been comfortable with Tylenol administration. Pt tolerated PO intake in the department. 04/26/18 08:05 *DC/Admit/Observation/Transfer Diagnosis at time of Disposition: Abscess Cellulitis Qualifiers: Site of cellulitis: extremity Site of cellulitis of extremity: axilla Laterality: right Qualified Code(s): L03.111 - Cellulitis of right axilla - Discharge Dispostion Condition at time of disposition: Stable Decision to Admit order: Yes - Referrals - Patient Instructions - Post Discharge Activity
--- NOTE | 2018-04-25 14:09 | PDOC ---
Attending Attestation - HPI HPI: 04/25/18 15:34 The patient is a 62 year old female with a significant PMH of anemia, anxiety, asthma, COPD, depression, kidney stones, hypertension, hypercholesterolemia, and hypothyroidism who presents to the emergency department with right arm pain for several days. She states that she was recently seen in the ED for similar complaint by which she had an abscess that was drained . she states that she has not been compliant with her aftercare for it. It is noted that the patient had her dialysis treatment yesterday. She denies any other symptoms or complaints. Documentation prepared by Veena Ornelas, acting as administrative medical director for Debby Chaparro MD. <Veena Ornelas - Last Filed: 04/25/18 15:34> - Resident Resident Name: Matilde Velasco - ED Attending Attestation I have performed the following: I have examined & evaluated the patient, The case was reviewed & discussed with the resident, I agree w/resident's findings & plan, Exceptions are as noted - Physicial Exam PE: 04/25/18 14:22 On examination pt is awake and alert Answers questions appropriately RRR CTA RUE - graft in place, (+) thrill, (+) bruit No surrounding erythema No drainage moving all extremities - Medical Decision Making 04/25/18 15:12 Superficial collection near to pt graft Pt given tylenol for pain (pt requesting narcotic medications) Labs sent: Laboratory Tests 03/13/18 04/25/18 05:20 14:42 WBC 7.9 9.4 Hgb 8.7 L 8.6 L Hct 25.5 L 24.8 L Plt Count 381 329 Renal consulted - Dr Coe has seen this patient in the ER Aggres with admission Will call surgery given cellulitis and abscess are overlying AV graft Will give Vancomycin for cellulitis which has failed bactrim Clinical impression: cellulitis, initial presentation <Debby Chaparro - Last Filed: 04/26/18 11:36>
[2018-04-25] MEDS ORDERED: ACETAMINOPHEN 1000 MG/100 ML VIAL (NON FORMULARY) IVPB ONE (14:11)
[2018-04-25] MEDS ORDERED: ACETAMINOPHEN INJECTION 100 ML IVPB ONE (14:44)
[2018-04-25 14:48] LABS: BASO % 0.9 % (0-2.0); EOS % 2.7 % (0-4.5); HEMATOCRIT 24.8 % (32.4-45.2); HEMOGLOBIN 8.6 GM/dL (10.7-15.3); LYMPH % 10.8 % (8-40); MCHC 34.9 g/dl (32.0-36.0); MEAN CELL VOLUME 88.8 fl (80-96); MEAN PLT VOLUME 7.1 fl (7.5-11.1); MONO % 6.2 % (3.8-10.2); NEUT % 79.4 % (42.8-82.8); PLATELET COUNT 329 K/MM3 (134-434); RBC 2.79 M/mm3 (3.60-5.2); RDW 18.5 % (11.6-15.6); WHITE BLOOD COUNT 9.4 K/mm3 (4.0-10.0)
[2018-04-25 15:29] LABS: ALBUMIN 3.1 g/dl (3.4-5.0); ALK PHOS 280 U/L (45-117); ANION GAP 10 MMOL/L (8-16); BILIRUBIN,TOTAL 0.4 mg/dL (0.2-1); BLOOD UREA NITROGEN 22 mg/dL (7-18); CALCIUM 8.2 mg/dL (8.5-10.1); CHLORIDE 108 mmol/L (98-107); CO2 21 mmol/L (21-32); CREATININE 4.5 mg/dL (0.55-1.3); GLUCOSE,RANDOM 123 mg/dL (74-106); POTASSIUM 3.5 mmol/L (3.5-5.1); SGOT/AST 12 U/L (15-37); SGPT/ALT 12 U/L (13-61); SODIUM 139 mmol/L (136-145); TOT PROT 6.5 g/dl (6.4-8.2)
[2018-04-25] MEDS ORDERED: VANCOMYCIN 1,000 MG in DEXTROSE 5%-WATER - 250 ML IVPB ONE (16:11)
[2018-04-25] MEDS ORDERED: VANCOMYCIN 1 GRAM (PRE-DOCKED) 1,000 MG/250 ML BAG IVPB ONE (16:28)
--- NOTE | 2018-04-25 16:51 | CONSULT ---
Consult Consult Specialty:: Nephrology Reason for Consultation:: ESRD - History of Present Illness Chief Complaint: right arm pain History of Present Illness: Pt is a 62 year old female with pmhx of ESRD, anemia, anxiety, asthma, COPD, and depression who presents with right arm pain near her av graft. She has an area that is red and appears to have a collection under the skin. She denies fevers or chills. She is a poor historian. She recently had an abscess drained in the ER. I was not called and informed of this abscess. Pt last went to HD yesterday. She denies shortness of breath. - History Source History Provided By: Patient, Medical Record - Past Medical History SOCIAL SERVICE ASSISTANT: Yes: Dementia, Peripheral Neuropathy Cardio/Vascular: Yes: HTN, Hyperlipdemia Pulmonary: Yes: COPD Gastrointestinal: Yes: Gastritis Renal/: Yes: Renal Inusuff, Hemodialysis ...LMP: 07/25/12 Infectious Disease: Yes: MRSA Psych: Yes: Anxiety, Depression Musculoskeletal: Yes: Chronic low back pain Endocrine: Yes: Hyperthyroidism - Past Surgical History Past Surgical History: Yes: AV Fistula/Graft, Joint Replacement (hip replacement ) - Alcohol/Substance Use Hx Alcohol Use: No History of Substance Use: reports: Marijuana - Smoking History Smoking history: Current every day smoker Have you smoked in the past 12 months: Yes Aproximately how many cigarettes per day: 6 If you are a former smoker, when did you quit?: refused booklet 07/21/14 - Social History Usual Living Arrangement: With Child (youngest son) ADL: Independent Occupation: not working, SSI History of Recent Travel: No Home Medications - Allergies Allergies/Adverse Reactions: Allergies Allergy/AdvReac Type Severity Reaction Status Date / Time levofloxacin [From Levaquin] Allergy Mild Itching Verified 03/12/18 18:36 - Home Medications Home Medications: Ambulatory Orders Cyclobenzaprine HCl [Flexeril -] 10 mg PO HS #7 tablet 01/31/18 Ibuprofen [Motrin -] 400 mg PO QID PRN #28 tablet 02/23/18 Methocarbamol [Robaxin -] 500 mg PO BID PRN #14 tablet 02/23/18 Lidocaine 5% Patch [Lidoderm -] 1 patch TP DAILY #7 patch 03/02/18 Albuterol 2.5/Ipratropium 0.5 [Duoneb -] 1 amp NEB Q6H PRN amp 03/14/18 Salmeterol/Fluticasone [Advair 100Mcg/50Mcg -] 1 puff IH BID inhaler 03/14/18 Sulfamethoxazole/Trimethoprim [Bactrim Ds -] 1 tab PO BID #14 tablet 04/18/18 Family Disease History - Family Disease History Family Disease History: Other: Father (alive), Mother (alive), Sister (alive), Son (23 yo old - alive - healthy) Review of Systems - Review of Systems Constitutional: reports: Malaise. denies: Chills, Fever Eyes: reports: No Symptoms HENT: reports: No Symptoms Neck: reports: No Symptoms Cardiovascular: reports: No Symptoms Respiratory: reports: No Symptoms Gastrointestinal: reports: No Symptoms Genitourinary: reports: No Symptoms Musculoskeletal: reports: No Symptoms Integumentary: reports: No Symptoms Neurological: reports: No Symptoms Endocrine: reports: No Symptoms Hematology/Lymphatic: reports: No Symptoms Psychiatric: reports: No Symptoms Physical Exam Vital Signs: Vital Signs Temperature 98.3 F 04/25/18 13:30 Pulse Rate 88 04/25/18 13:30 Respiratory Rate 20 04/25/18 13:30 Blood Pressure 103/68 04/25/18 13:30 O2 Sat by Pulse Oximetry (%) 96 04/25/18 13:30 Constitutional: Yes: Calm Eyes: Yes: Conjunctiva Clear HENT: Yes: Atraumatic Neck: Yes: Supple Cardiovascular: Yes: S1, S2 Respiratory: Yes: CTA Bilaterally Gastrointestinal: Yes: Soft Renal/: Yes: WNL Musculoskeletal: Yes: WNL Extremities: Yes: Other (right arm abscess near armpit) Integumentary: Yes: Other (arm abscess) Neurological: Yes: Oriented Psychiatric: Yes: Oriented Labs: CBC, BMP 04/25/18 14:42 04/25/18 14:42 Problem List - Problems (1) Abscess Code(s): L02.91 - CUTANEOUS ABSCESS, UNSPECIFIED (2) ESRD (end stage renal disease) Code(s): N18.6 - END STAGE RENAL DISEASE Assessment/Plan Current Medications Generic Name Dose Route Start Last Admin Trade Name Freq PRN Reason Stop Dose Admin Vancomycin HCl 1,000 mg/ 250 mls @ 166.667 mls/hr 04/25/18 16:11 Dextrose IVPB 04/25/18 17:40 ONCE ONE Protocol Impression 1. ESRD 2. arm abscess 3. chronic back pain 4. anemia 5. anxiety 6. hx of nsaid use 7. chf diastolic 8. possible complex renal cyst 9. HLD 10. nephrolithiasis 11. copd Plan - HD in am - vascular eval - send cultures and start abx - ID eval - epogen for anemia - will follow Dr Coe
--- NOTE | 2018-04-25 18:25 | HP ---
CHIEF COMPLAINT: weakness, pain under right arm PCP: HISTORY OF PRESENT ILLNESS: Jo Matamoros is a 62 year old female with a significant PMH of anemia, anxiety, asthma, COPD, depression, kidney stones, hypertension, hypercholesterolemia, and hypothyroidism who presents to the emergency department with right arm pain for several days. She states that she was recently seen in the ED for similar complaint by which she had an abscess that was drained . was given Bactrim po. Had dialysis treatment yesterday. pt reports having chills at home, no temp checked at home, ER course was notable for: (1) erythematous abscess under right arm (2) Afebrile (3) no Leukocytes Recent Travel: PAST MEDICAL HISTORY:Anemia, Asthma, COPD, Depression, ESRD, hypothyroidism PAST SURGICAL HISTORY: AV fistula, Hip replacement Social History: Smoking:current smoker Alcohol:denies Drugs: marijuana Family History: Allergies levofloxacin [From Levaquin] Allergy (Mild, Verified 03/12/18 18:36) Itching HOME MEDICATIONS: Home Medications Medication Instructions Recorded Cyclobenzaprine HCl [Flexeril -] 10 mg PO HS #7 tablet 01/31/18 Ibuprofen [Motrin -] 400 mg PO QID PRN #28 tablet 02/23/18 Methocarbamol [Robaxin -] 500 mg PO BID PRN #14 tablet 02/23/18 Lidocaine 5% Patch [Lidoderm -] 1 patch TP DAILY #7 patch 03/02/18 Albuterol 2.5/Ipratropium 0.5 1 amp NEB Q6H PRN amp 03/14/18 [Duoneb -] Salmeterol/Fluticasone [Advair 1 puff IH BID inhaler 03/14/18 100Mcg/50Mcg -] Sulfamethoxazole/Trimethoprim 1 tab PO BID #14 tablet 04/18/18 [Bactrim Ds -] REVIEW OF SYSTEMS CONSTITUTIONAL: Absent: fever, chills, diaphoresis, generalized weakness, malaise, loss of appetite, weight change HEENT: Absent: rhinorrhea, nasal congestion, throat pain, throat swelling, difficulty swallowing, mouth swelling, ear pain, eye pain, visual changes CARDIOVASCULAR: Absent: chest pain, syncope, palpitations, irregular heart rate, lightheadedness , peripheral edema RESPIRATORY: Absent: cough, shortness of breath, dyspnea with exertion, orthopnea, wheezing, stridor, hemoptysis GASTROINTESTINAL: Absent: abdominal pain, abdominal distension, nausea, vomiting, diarrhea, constipation, melena, hematochezia GENITOURINARY: Absent: dysuria, frequency, urgency, hesitancy, hematuria, flank pain, genital pain MUSCULOSKELETAL: Absent: myalgia, arthralgia, joint swelling, back pain, neck pain SKIN: Right under arm abscess, redness, Absent: rash, itching, pallor HEMATOLOGIC/IMMUNOLOGIC: Absent: easy bleeding, easy bruising, lymphadenopathy, frequent infections ENDOCRINE: Absent: unexplained weight gain, unexplained weight loss, heat intolerance, cold intolerance NEUROLOGIC: Absent: headache, focal weakness or paresthesias, dizziness, unsteady gait, seizure, mental status changes, bladder or bowel incontinence PSYCHIATRIC: Absent: anxiety, depression, suicidal or homicidal ideation, hallucinations. PHYSICAL EXAMINATION Vital Signs - 24 hr 04/25/18 13:30 Temperature 98.3 F Pulse Rate 88 Respiratory 20 Rate Blood Pressure 103/68 O2 Sat by Pulse 96 Oximetry (%) GENERAL: Awake, alert, and fully oriented, in no acute distress. HEAD: Normal with no signs of trauma. EYES: Pupils equal, round and reactive to light, extraocular movements intact, sclera anicteric, conjunctiva clear. No lid lag. EARS, NOSE, THROAT: Ears normal, nares patent, oropharynx clear without exudates. Moist mucous membranes. NECK: Normal range of motion, supple without lymphadenopathy, JVD, or masses. LUNGS: coarse Breath sounds equal, No accessory muscle use. HEART: Regular rate and rhythm, normal S1 and S2 without murmur, rub or gallop. ABDOMEN: Soft, nontender, not distended, normoactive bowel sounds, no guarding, no rebound, no masses. No hepatomegaly or splenomegaly. MUSCULOSKELETAL: Normal range of motion at all joints. No bony deformities or tenderness. No CVA tenderness. UPPER EXTREMITIES: 2+ pulses, warm, well-perfused. No cyanosis. No clubbing. No peripheral edema. LOWER EXTREMITIES: 2+ pulses, warm, well-perfused. No calf tenderness. No peripheral edema. NEUROLOGICAL: Cranial nerves II-XII intact. Normal speech. Normal gait. PSYCHIATRIC: Cooperative. Good eye contact. Appropriate mood and affect. SKIN: right under arm abscess, redness, tender to touch Laboratory Results - last 24 hr 04/25/18 04/25/18 14:42 14:42 WBC 9.4 RBC 2.79 L Hgb 8.6 L Hct 24.8 L MCV 88.8 MCH 31.0 MCHC 34.9 RDW 18.5 H Plt Count 329 MPV 7.1 L Absolute Neuts (auto) 7.4 Neutrophils % 79.4 Lymphocytes % 10.8 D Monocytes % 6.2 Eosinophils % 2.7 Basophils % 0.9 Nucleated RBC % 0 Sodium 139 Potassium 3.5 Chloride 108 H Carbon Dioxide 21 Anion Gap 10 BUN 22 H Creatinine 4.5 H Creat Clearance w eGFR 9.97 Random Glucose 123 H Calcium 8.2 L Total Bilirubin 0.4 AST 12 L ALT 12 L Alkaline Phosphatase 280 H Total Protein 6.5 Albumin 3.1 L ASSESSMENT/PLAN: Jo Matamoros is a 62 yr old F, medical condition COPD, asthma, ESRD, anemia, depression chronic back pain admitted for Admitting Diagnosis Right under arm abscess Chronic Problems ESRD Anemia Chronic back pain Depression/Anxiety A/P: #Right arm Boil/abscess-failed outpt tx -given IV vanco, will cont -Blood cx pending -ID, vasc sx consult pending -pain mgt -US upper ext fluid collection lateral to AV graft #ESRD -seen by Renal -BUN/Cr 22/4.5 -HD in AM #Anemia, stable -procrit ordered by renal #COPD #Asthma -oxygen PRN -resume [employer] meds #Chronic back pain -on flexeril, robaxin #Depression, chronic #Anxiety -not on meds Dispo: pt requires inpatient treatment Full Code Visit type - Emergency Visit Emergency Visit: Yes ED Registration Date: 04/25/18 Care time: The patient presented to the Emergency Department on the above date and was hospitalized for further evaluation of their emergent condition. - New Patient This patient is new to me today: Yes Date on this admission: 04/25/18 - Critical Care Critical Care patient: No
[2018-04-25] MEDS ORDERED: METHOCARBAMOL 500 MG TABLET PO PRN (19:15)
[2018-04-26] MEDS: LIDOCAINE PATCH REMOVAL MC SCH ×2 (00:43→23:15)
[2018-04-26] MEDS: FLUTICASONE/SALMETEROL 100 MCG/50 MCG DISKUS IH SCH ×3 (00:43→22:23)
[2018-04-26] MEDS: HEPARIN NA (PORCINE) 5,000 UNITS/ML 1ML VIAL SQ SCH ×3 (00:43→22:19)
[2018-04-26] MEDS: CYCLOBENZAPRINE HCL 10 MG TABLET (FP) PO SCH ×2 (00:43→22:19)
[2018-04-26] MEDS: ALBUTEROL SO4 2.5/IPRATROPIUM 0.5 INH SOL 3 ML VIAL.NEB. NEB PRN ×2 (02:05→19:50)
[2018-04-26] MEDS ORDERED: MELATONIN 5 MG TABLETS PO ONE (02:53)
[2018-04-26 02:58] VITALS: BMI 23.3
[2018-04-26] MEDS: METHOCARBAMOL 500 MG TABLET PO PRN ×3 (04:44→16:47)
[2018-04-26] MEDS ORDERED: PT OWN MED DRAWER 7, Y5N ONE ×2 (06:04→16:43)
[2018-04-26 08:24] LABS: HEMATOCRIT 22.9 % (32.4-45.2); HEMOGLOBIN 7.3 GM/dL (10.7-15.3); MCH 28.9 pg (25.7-33.7); MCHC 31.8 g/dl (32.0-36.0); MEAN CELL VOLUME 90.8 fl (80-96); MEAN PLT VOLUME 7.4 fl (7.5-11.1); PLATELET COUNT 271 K/MM3 (134-434); RBC 2.53 M/mm3 (3.60-5.2); WHITE BLOOD COUNT 10.7 K/mm3 (4.0-10.0)
[2018-04-26] MEDS: LIDOCAINE 5% TOPICAL PATCH TP SCH (09:31)
[2018-04-26 09:48] LABS: ANION GAP 12 MMOL/L (8-16); BLOOD UREA NITROGEN 33 mg/dL (7-18); CHLORIDE 106 mmol/L (98-107); CO2 19 mmol/L (21-32); CREATININE 5.4 mg/dL (0.55-1.3); GLUCOSE,RANDOM 97 mg/dL (74-106); POTASSIUM 3.6 mmol/L (3.5-5.1); SODIUM 137 mmol/L (136-145)
[2018-04-26] MEDS ORDERED: LORazepam 2 MG/ML SDV VIAL IVPUSH ONE (10:36)
--- NOTE | 2018-04-26 11:41 | PN ---
Progress Note, Physician Chief Complaint: AWAKE ALERT SEEN IN HD EVENTS AND NOTES REVIEWED - Current Medication List Current Medications: Active Medications Albuterol/Ipratropium (Duoneb -) 1 amp NEB Q6H PRN PRN Reason: SHORTNESS OF BREATH Last Admin: 04/26/18 02:05 Dose: 1 amp Cyclobenzaprine HCl (Flexeril -) 10 mg PO HS [facility] Last Admin: 04/26/18 00:43 Dose: Not Given Epoetin Zachery (Epogen -) 6,000 unit IVPUSH ONCE ONE Stop: 04/26/18 16:52 Heparin Sodium (Porcine) (Heparin -) 5,000 unit SQ BID [facility] Last Admin: 04/26/18 09:32 Dose: 5,000 unit Sodium Chloride (Normal Saline -) 250 mls @ 3,000 mls/hr IV PRN PRN PRN Reason: Hypotension during Dialysis Stop: 04/26/18 16:51 Lidocaine (Lidoderm Patch -) 1 patch TP DAILY [facility] Last Admin: 04/26/18 09:31 Dose: 1 patch Methocarbamol (Robaxin -) 500 mg PO Q12H PRN PRN Reason: MUSCLE SPASMS Last Admin: 04/26/18 05:11 Dose: 500 mg Miscellaneous (Lidoderm Patch Removal) 1 each MC DAILY@2200 [facility] Last Admin: 04/26/18 00:43 Dose: Not Given Fluticasone/Salmeterol (Advair 100mcg/50mcg -) 1 puff IH BID [facility] Last Admin: 04/26/18 10:02 Dose: Not Given - Objective Vital Signs: Vital Signs Temperature 98.4 F 04/26/18 09:55 Pulse Rate 81 04/26/18 09:55 Respiratory Rate 18 04/26/18 09:55 Blood Pressure 119/63 04/26/18 09:55 O2 Sat by Pulse Oximetry (%) 97 04/26/18 00:30 Constitutional: Yes: No Distress Eyes: Yes: WNL HENT: Yes: WNL Neck: Yes: WNL Cardiovascular: Yes: WNL Respiratory: Yes: WNL Gastrointestinal: Yes: WNL Genitourinary: Yes: Other Musculoskeletal: Yes: Back Pain Edema: No Neurological: Yes: Pre-Existing Deficit Psychiatric: Yes: Agitated Labs: CBC, BMP 04/26/18 07:00 04/26/18 07:00 Problem List - Problems (1) ESRD (end stage renal disease) on dialysis Code(s): N18.6 - END STAGE RENAL DISEASE; Z99.2 - DEPENDENCE ON RENAL DIALYSIS (2) Acute exacerbation of chronic low back pain Code(s): M54.5 - LOW BACK PAIN; G89.29 - OTHER CHRONIC PAIN (3) Anxiety and depression Code(s): F41.8 - OTHER SPECIFIED ANXIETY DISORDERS (4) CKD (chronic kidney disease) stage 4, GFR 15-29 ml/min Code(s): N18.4 - CHRONIC KIDNEY DISEASE, STAGE 4 (SEVERE) (5) Degenerative disc disease at L5-S1 level Code(s): M51.36 - OTHER INTERVERTEBRAL DISC DEGENERATION, LUMBAR REGION (6) H/O opioid abuse Code(s): Z87.898 - PERSONAL HISTORY OF OTHER SPECIFIED CONDITIONS Assessment/Plan NEPHROLOGY F/U ACCESS FOR IV PER VASC SX PAIN CONTROL AVOID OPIODS XANAX HS PRN FOR ANXIETY D/W NURSING STAFF
[2018-04-26] MEDS ORDERED: EPOETIN ALFA 10,000 UNIT/1 ML VIAL IVPUSH ONE (12:00)
--- NOTE | 2018-04-26 12:37 | PN ---
Progress Note (short form) - Note Progress Note: 63 year old woman recently started on HD with a new right upper elvis AV graft developed a small tender area in the right axilla. She was seen in the ER on where an I&D was performed. Culture has grown MRSA. She was sent home and has continued to ccomplain of pain. No fever. On exam there is a small reddened area in the anterior aspect of the right axilla. No mass, no fluctuance, no visible drainage. The arm has no swelling. A Duplex showed no evidence for graft infection. Imp: Cutaneous infection not associated with AV graft. No need for additional drainage at this time. Rec: Topical Gentamicin to area. Warm compress. IV Vancomycin at dialysis.
[2018-04-26] MEDS ORDERED: SODIUM CHLORIDE 250 ML IV PRN (12:54)
--- NOTE | 2018-04-26 13:59 | PN ---
Progress Note (short form) - Note Progress Note: ID Consult dictated S/P I&D R axillary soft tissue abscess + wound c/s MRSA ESRD Obtain vancomycin random level Redose vancomycin 1gm x1 for level < 15 Contact precautions MRSA
--- NOTE | 2018-04-26 15:17 | PN ---
Progress Note (short form) - Note Progress Note: seen on dialysis Current Medications Albuterol/Ipratropium (Duoneb -) 1 amp NEB Q6H PRN PRN Reason: SHORTNESS OF BREATH Last Admin: 04/26/18 02:05 Dose: 1 amp Cyclobenzaprine HCl (Flexeril -) 10 mg PO HS [facility] Last Admin: 04/26/18 00:43 Dose: Not Given Gentamicin Sulfate (Garamycin 0.1% Ointment -) 1 applic TP BID [facility] Heparin Sodium (Porcine) (Heparin -) 5,000 unit SQ BID [facility] Last Admin: 04/26/18 09:32 Dose: 5,000 unit Lidocaine (Lidoderm Patch -) 1 patch TP DAILY [facility] Last Admin: 04/26/18 09:31 Dose: 1 patch Methocarbamol (Robaxin -) 500 mg PO Q12H PRN PRN Reason: MUSCLE SPASMS Last Admin: 04/26/18 05:11 Dose: 500 mg Miscellaneous (Lidoderm Patch Removal) 1 each MC DAILY@2200 [facility] Last Admin: 04/26/18 00:43 Dose: Not Given Fluticasone/Salmeterol (Advair 100mcg/50mcg -) 1 puff IH BID [facility] Last Admin: 04/26/18 10:02 Dose: Not Given Last Vital Signs Temp Pulse Resp BP Pulse Ox 98.9 F 112 H 18 128/83 97 04/26/18 14:58 04/26/18 14:58 04/26/18 14:58 04/26/18 14:58 04/26/18 00:30 CBC, BMP 04/26/18 07:00 04/26/18 07:00 stable on dialysis
[2018-04-26] MEDS ORDERED: EPOETIN ALFA 2,000 UNIT/1 ML VIAL IVPUSH ONE (16:51)
--- NOTE | 2018-04-26 17:36 | CONS ---
DATE OF CONSULTATION: 04/26/2018 HISTORY OF PRESENT ILLNESS: The patient is a 63-year-old female with a history of end-stage renal disease on hemodialysis, evaluated for soft tissue infection. The patient presented to the emergency room on April 18, 2018 with worsening swelling and erythema in the right axillary area. She was found to have a soft tissue abscess which was incised and drained. She was discharged with oral Bactrim. Cultures subsequently grew MRSA sensitive to Bactrim. The patient completed an approximately one-week course of the medication. Despite adherence to the antibiotic, she complained of worsening erythema, warmth and swelling of the right axillary area. She returned to the emergency room, where she was admitted. She was given a dose of vancomycin. The patient denies any purulent wound drainage. No associated fever or chills. She was seen in consultation by Vascular Surgery, whose opinion was that the AV graft present in the right upper extremity was not in danger from the nearby soft tissue infection. PAST MEDICAL HISTORY: Positive for end-stage renal disease on hemodialysis, COPD, hypertension, hyperlipidemia, asthma, peptic ulcer disease, nephrolithiasis. An AV graft is present in the right upper extremity with no erythema or evidence of infection. PAST SURGICAL HISTORY: Status post right total hip replacement. ALLERGIES: LEVAQUIN (itching). MEDICATIONS: Vancomycin, albuterol, Flexeril, melatonin, Robaxin. SOCIAL HISTORY: She resides in the community. She is a smoker. LABORATORY DATA: White count 10.7, hematocrit 22.9, platelet count 271, creatinine 5.4. Wound culture grew MRSA. Blood cultures are pending. PHYSICAL EXAMINATION: General: The patient is awake and alert. She is in no acute distress. The patient was seen during hemodialysis and the wound was examined after she completed hemodialysis. Vital Signs: Temperature 98.7, pulse 90 and regular, blood pressure 100/71, respiratory rate 18 per minute. HEENT:: Sclerae anicteric. Heart: Heart sounds S1, S2. Lungs: Clear. Abdomen: Soft and nontender. Trunk: On examination of the right axillary area, there was a 1 cm in diameter localized soft tissue swelling with erythema and a smaller rim of erythema around it. It is present in the right axilla. There is tenderness to palpation. There is no fluctuance or expressible pus. IMPRESSION: 1. Status post incision and drainage, right axillary skin abscess. 2. Positive wound culture for MRSA. 3. End-stage renal disease on hemodialysis. PLAN: 1. We will check her vancomycin trough level and re-dose her for a trough less than 15. 2. Continue local wound care. 3. Await blood culture results. Thank you for the kind referral. JAKY JOHNSON M.D. [id number]
[2018-04-26] MEDS ORDERED: ALPRAZolam 0.25 MG TABLET PO PRN (18:50)
[2018-04-26] MEDS ORDERED: ALBUTEROL SO4 8 GM HFA INHALER IH PRN (21:27)
[2018-04-26] MEDS: GENTAMICIN SO4 0.1% TOPICAL OINTMENT 15 GM/TUBE TUBE TP SCH (22:20)
[2018-04-27] MEDS: ALBUTEROL SO4 2.5/IPRATROPIUM 0.5 INH SOL 3 ML VIAL.NEB. NEB PRN ×3 (00:50→21:28)
[2018-04-27] MEDS ORDERED: guaiFENesin 200 MG/10 ML 10 ML UNIT-DOSE CUPS PO PRN (02:15)
[2018-04-27 07:09] LABS: HBSAG SCREEN Negative (Negative); HEP B CORE AB, TOT Negative (Negative)
[2018-04-27] MEDS: METHOCARBAMOL 500 MG TABLET PO PRN ×2 (10:16→21:52)
[2018-04-27] MEDS: HEPARIN NA (PORCINE) 5,000 UNITS/ML 1ML VIAL SQ SCH ×2 (10:17→21:47)
[2018-04-27] MEDS: FLUTICASONE/SALMETEROL 100 MCG/50 MCG DISKUS IH SCH ×2 (10:17→21:47)
[2018-04-27] MEDS: LIDOCAINE 5% TOPICAL PATCH TP SCH (10:17)
[2018-04-27] MEDS: GENTAMICIN SO4 0.1% TOPICAL OINTMENT 15 GM/TUBE TUBE TP SCH ×2 (10:18→21:50)
[2018-04-27] MEDS ORDERED: VANCOMYCIN 1 GRAM (PRE-DOCKED) 1,000 MG/250 ML BAG IVPB ONE (11:03)
--- NOTE | 2018-04-27 12:37 | PN ---
Progress Note, Physician Chief Complaint: AWAKE ALERT COUGHING - Current Medication List Current Medications: Active Medications Albuterol Sulfate (Ventolin Hfa Inhaler -) 2 puff IH Q6H PRN PRN Reason: SHORT OF BREATH/WHEEZING Albuterol/Ipratropium (Duoneb -) 1 amp NEB Q6H PRN PRN Reason: SHORTNESS OF BREATH Last Admin: 04/27/18 06:35 Dose: 1 amp Alprazolam (Xanax -) 1 mg PO HS PRN PRN Reason: ANXIETY Last Admin: 04/26/18 22:19 Dose: 1 mg Cyclobenzaprine HCl (Flexeril -) 10 mg PO HS [facility] Last Admin: 04/26/18 22:19 Dose: 10 mg Gentamicin Sulfate (Garamycin 0.1% Ointment -) 1 applic TP BID [facility] Last Admin: 04/27/18 10:18 Dose: 1 applic Guaifenesin (Robitussin -) 10 ml PO Q6H PRN PRN Reason: COUGH Last Admin: 04/27/18 02:56 Dose: 10 ml Heparin Sodium (Porcine) (Heparin -) 5,000 unit SQ BID [facility] Last Admin: 04/27/18 10:17 Dose: 5,000 unit Lidocaine (Lidoderm Patch -) 1 patch TP DAILY [facility] Last Admin: 04/27/18 10:17 Dose: 1 patch Methocarbamol (Robaxin -) 500 mg PO Q12H PRN PRN Reason: MUSCLE SPASMS Last Admin: 04/27/18 10:16 Dose: 500 mg Miscellaneous (Lidoderm Patch Removal) 1 each MC DAILY@2200 [facility] Last Admin: 04/26/18 23:15 Dose: 1 each Fluticasone/Salmeterol (Advair 100mcg/50mcg -) 1 puff IH BID [facility] Last Admin: 04/27/18 10:17 Dose: 1 puff - Objective Vital Signs: Vital Signs Temperature 98.1 F 04/27/18 07:07 Pulse Rate 93 H 04/27/18 07:07 Respiratory Rate 16 04/27/18 07:07 Blood Pressure 129/63 04/27/18 07:07 O2 Sat by Pulse Oximetry (%) 97 04/26/18 21:00 Constitutional: Yes: Mild Distress Eyes: Yes: WNL HENT: Yes: WNL Neck: Yes: WNL Cardiovascular: Yes: WNL Respiratory: Yes: Cough, Diminished Gastrointestinal: Yes: WNL Genitourinary: Yes: WNL Musculoskeletal: Yes: Back Pain Extremities: Yes: WNL Edema: No Peripheral Pulses WNL: Yes Integumentary: Yes: WNL Wound/Incision: Yes: Clean/Dry Neurological: Yes: Pre-Existing Deficit Psychiatric: Yes: Other Labs: CBC, BMP 04/26/18 07:00 04/26/18 07:00 Problem List - Problems (1) ESRD (end stage renal disease) on dialysis Code(s): N18.6 - END STAGE RENAL DISEASE; Z99.2 - DEPENDENCE ON RENAL DIALYSIS (2) Acute exacerbation of chronic low back pain Code(s): M54.5 - LOW BACK PAIN; G89.29 - OTHER CHRONIC PAIN (3) Anxiety and depression Code(s): F41.8 - OTHER SPECIFIED ANXIETY DISORDERS (4) CKD (chronic kidney disease) stage 4, GFR 15-29 ml/min Code(s): N18.4 - CHRONIC KIDNEY DISEASE, STAGE 4 (SEVERE) (5) Degenerative disc disease at L5-S1 level Code(s): M51.36 - OTHER INTERVERTEBRAL DISC DEGENERATION, LUMBAR REGION (6) H/O opioid abuse Code(s): Z87.898 - PERSONAL HISTORY OF OTHER SPECIFIED CONDITIONS Assessment/Plan NEPHROLOGY F/U CXR FOR COUGH NEBS COUGH SUPPRESSANT ACCESS FOR IV PER VASC SX PAIN CONTROL AVOID OPIODS XANAX Q12H PRN FOR ANXIETY D/W NURSING STAFF
[2018-04-27] MEDS: ALPRAZolam 0.25 MG TABLET PO PRN (14:14)
[2018-04-27] MEDS: guaiFENesin/CODEINE 5 ML UNIT-DOSE CUPS PO PRN ×2 (14:14→21:21)
[2018-04-27] MEDS: LIDOCAINE PATCH REMOVAL MC SCH (21:50)
[2018-04-27] MEDS ORDERED: PT OWN MED DRAWER 7, Y5N ONE (21:51)
--- NOTE | 2018-04-27 23:20 | PN ---
Progress Note (short form) - Note Progress Note: seen on dialysis Current Medications Albuterol Sulfate (Ventolin Hfa Inhaler -) 2 puff IH Q6H PRN PRN Reason: SHORT OF BREATH/WHEEZING Albuterol/Ipratropium (Duoneb -) 1 amp NEB Q6H PRN PRN Reason: SHORTNESS OF BREATH Last Admin: 04/27/18 21:28 Dose: 1 amp Alprazolam (Xanax -) 1 mg PO Q12H PRN PRN Reason: ANXIETY Last Admin: 04/27/18 14:14 Dose: 1 mg Cyclobenzaprine HCl (Flexeril -) 10 mg PO HS [facility] Last Admin: 04/26/18 22:19 Dose: 10 mg Gentamicin Sulfate (Garamycin 0.1% Ointment -) 1 applic TP BID [facility] Last Admin: 04/27/18 21:50 Dose: 1 applic Guaifenesin/Codeine Phosphate (Robitussin Ac -) 5 ml PO TID PRN PRN Reason: COUGH Last Admin: 04/27/18 21:21 Dose: 5 ml Heparin Sodium (Porcine) (Heparin -) 5,000 unit SQ BID [facility] Last Admin: 04/27/18 21:47 Dose: 5,000 unit Lidocaine (Lidoderm Patch -) 1 patch TP DAILY [facility] Last Admin: 04/27/18 10:17 Dose: 1 patch Methocarbamol (Robaxin -) 500 mg PO Q12H PRN PRN Reason: MUSCLE SPASMS Last Admin: 04/27/18 21:52 Dose: 500 mg Miscellaneous (Lidoderm Patch Removal) 1 each MC DAILY@2200 [facility] Last Admin: 04/27/18 21:50 Dose: 1 each Fluticasone/Salmeterol (Advair 100mcg/50mcg -) 1 puff IH BID [facility] Last Admin: 04/27/18 21:47 Dose: 1 puff Last Vital Signs Temp Pulse Resp BP Pulse Ox 97.3 F L 84 18 102/50 L 97 04/27/18 18:10 04/27/18 18:10 04/27/18 18:10 04/27/18 18:10 04/27/18 09:00 Lungs clear heart reg Abd soft notender ext no edea CBC, BMP 04/26/18 07:00 04/26/18 07:00 IMP- esrd abscess ear access Next HD
[2018-04-27] MEDS ORDERED: MELATONIN 5 MG TABLETS PO ONE (23:45)
[2018-04-28] MEDS: ALPRAZolam 0.25 MG TABLET PO PRN ×2 (02:57→14:32)
[2018-04-28] MEDS: BENZOCAINE/MENTH/CETYLPYRD CL 1 EACH LOZENGE MM PRN ×3 (03:59→14:38)
[2018-04-28] MEDS: METHOCARBAMOL 500 MG TABLET PO PRN ×2 (10:37→23:03)
[2018-04-28] MEDS: FLUTICASONE/SALMETEROL 100 MCG/50 MCG DISKUS IH SCH ×2 (10:37→21:59)
[2018-04-28] MEDS: guaiFENesin/CODEINE 5 ML UNIT-DOSE CUPS PO PRN ×3 (10:37→23:03)
[2018-04-28] MEDS: HEPARIN NA (PORCINE) 5,000 UNITS/ML 1ML VIAL SQ SCH ×2 (10:37→22:00)
[2018-04-28] MEDS: LIDOCAINE 5% TOPICAL PATCH TP SCH (10:38)
[2018-04-28] MEDS: GENTAMICIN SO4 0.1% TOPICAL OINTMENT 15 GM/TUBE TUBE TP SCH ×2 (10:39→22:00)
--- NOTE | 2018-04-28 12:51 | DS ---
Physical Examination Vital Signs: Vital Signs Temperature 98 F 04/28/18 05:58 Pulse Rate 92 H 04/28/18 05:58 Respiratory Rate 20 04/28/18 05:58 Blood Pressure 152/69 04/28/18 05:58 O2 Sat by Pulse Oximetry (%) 97 04/27/18 09:00 Constitutional: Yes: Calm Cardiovascular: Yes: Regular Rate and Rhythm, S1, S2 Respiratory: Yes: CTA Bilaterally Gastrointestinal: Yes: Normal Bowel Sounds, Soft Edema: No Neurological: Yes: Alert Labs: CBC, BMP 04/26/18 07:00 04/26/18 07:00 Discharge Summary Reason For Visit: CELLULITIS Current Active Problems Abscess (Acute) Cellulitis (Acute) ESRD (end stage renal disease) on dialysis (Acute) Hospital Course: HISTORY OF PRESENT ILLNESS: Jo Matamoros is a 62 year old female with a significant PMH of anemia, anxiety, asthma, COPD, depression, kidney stones, hypertension, hypercholesterolemia, and hypothyroidism who presents to the emergency department with right arm pain for several days. She states that she was recently seen in the ED for similar complaint by which she had an abscess that was drained . was given Bactrim po. Had dialysis treatment yesterday. pt reports having chills at home, no temp checked at home, ER course was notable for: (1) erythematous abscess under right arm (2) Afebrile (3) no Leukocytes hospital course: s/p I/D of abscess started on iv vancomycin on HD days to get 3 more doses blood cultures negative ESRD on HD per renal anemia epogen with HD cough cxr done no infiltrate left base granuloma seen repeat cxr in 6 weeks Condition: Stable - Instructions Diet, Activity, Other Instructions: 3 more dose of iv vancomycin with HD - Home Medications Comprehensive Discharge Medication List: Ambulatory Orders Cyclobenzaprine HCl [Flexeril -] 10 mg PO HS #7 tablet 01/31/18 Ibuprofen [Motrin -] 400 mg PO QID PRN #28 tablet 02/23/18 Methocarbamol [Robaxin -] 500 mg PO BID PRN #14 tablet 02/23/18 Lidocaine 5% Patch [Lidoderm -] 1 patch TP DAILY #7 patch 03/02/18 Albuterol 2.5/Ipratropium 0.5 [Duoneb -] 1 amp NEB Q6H PRN amp 03/14/18 Salmeterol/Fluticasone [Advair 100Mcg/50Mcg -] 1 puff IH BID inhaler 03/14/18 Sulfamethoxazole/Trimethoprim [Bactrim Ds -] 1 tab PO BID #14 tablet 04/18/18 Albuterol Sulfate Inhaler - [Ventolin HFA Inhaler -] 2 puff IH QID PRN 04/26/18
--- NOTE | 2018-04-28 12:54 | PN ---
Progress Note (short form) - Note Progress Note: HD in AM vancomycin dose in AM with HD pulm consult SNF placement
[2018-04-28 14:26] LABS: ALBUMIN 2.8 g/dl (3.4-5.0); ALK PHOS 245 U/L (45-117); ANION GAP 12 MMOL/L (8-16); BILIRUBIN,TOTAL 0.6 mg/dL (0.2-1); BLOOD UREA NITROGEN 57 mg/dL (7-18); CALCIUM 8.1 mg/dL (8.5-10.1); CHLORIDE 101 mmol/L (98-107); CO2 24 mmol/L (21-32); CREATININE 5.6 mg/dL (0.55-1.3); GLUCOSE,RANDOM 110 mg/dL (74-106); POTASSIUM 3.5 mmol/L (3.5-5.1); SGOT/AST 14 U/L (15-37); SGPT/ALT 17 U/L (13-61); SODIUM 137 mmol/L (136-145); TOT PROT 6.4 g/dl (6.4-8.2)
[2018-04-28 14:30] LABS: BASO % 0.9 % (0-2.0); EOS % 6.3 % (0-4.5); HEMATOCRIT 27.5 % (32.4-45.2); HEMOGLOBIN 8.8 GM/dL (10.7-15.3); LYMPH % 18.7 % (8-40); MCH 29.3 pg (25.7-33.7); MCHC 32.2 g/dl (32.0-36.0); MEAN PLT VOLUME 7.8 fl (7.5-11.1); MONO % 12.1 % (3.8-10.2); PLATELET COUNT 335 K/MM3 (134-434); RBC 3.02 M/mm3 (3.60-5.2); RDW 17.9 % (11.6-15.6)
--- NOTE | 2018-04-28 14:44 | PN ---
Progress Note, Physician History of Present Illness: C/O cough No dyspnea/ chest pain CXR no infiltrate No c/o R axillary pain No reported wound drainage No fever/ chills - Current Medication List Current Medications: Active Medications Albuterol Sulfate (Ventolin Hfa Inhaler -) 2 puff IH Q6H PRN PRN Reason: SHORT OF BREATH/WHEEZING Albuterol/Ipratropium (Duoneb -) 1 amp NEB Q6H PRN PRN Reason: SHORTNESS OF BREATH Last Admin: 04/27/18 21:28 Dose: 1 amp Alprazolam (Xanax -) 1 mg PO Q12H PRN PRN Reason: ANXIETY Last Admin: 04/28/18 02:57 Dose: 1 mg Benzocaine/Menthol (Cepacol Lozenge -) 1 each MM PRN PRN PRN Reason: SORE THROAT Last Admin: 04/28/18 10:49 Dose: 1 each Cyclobenzaprine HCl (Flexeril -) 10 mg PO HS [facility] Last Admin: 04/26/18 22:19 Dose: 10 mg Gentamicin Sulfate (Garamycin 0.1% Ointment -) 1 applic TP BID [facility] Last Admin: 04/28/18 10:39 Dose: 1 applic Guaifenesin/Codeine Phosphate (Robitussin Ac -) 5 ml PO TID PRN PRN Reason: COUGH Last Admin: 04/28/18 10:37 Dose: 5 ml Heparin Sodium (Porcine) (Heparin -) 5,000 unit SQ BID [facility] Last Admin: 04/28/18 10:37 Dose: 5,000 unit Lidocaine (Lidoderm Patch -) 1 patch TP DAILY [facility] Last Admin: 04/28/18 10:38 Dose: 1 patch Methocarbamol (Robaxin -) 500 mg PO Q12H PRN PRN Reason: MUSCLE SPASMS Last Admin: 04/28/18 10:37 Dose: 500 mg Miscellaneous (Lidoderm Patch Removal) 1 each MC DAILY@2200 [facility] Last Admin: 04/27/18 21:50 Dose: 1 each Fluticasone/Salmeterol (Advair 100mcg/50mcg -) 1 puff IH BID [facility] Last Admin: 04/28/18 10:37 Dose: 1 puff - Objective Vital Signs: Vital Signs Temperature 98 F 01/07/19 14:32 Pulse Rate 89 04/28/18 14:32 Respiratory Rate 20 04/28/18 14:32 Blood Pressure 120/68 04/28/18 14:32 O2 Sat by Pulse Oximetry (%) 97 04/27/18 09:00 Constitutional: Yes: No Distress Eyes: Yes: Conjunctiva Clear Cardiovascular: Yes: Regular Rate and Rhythm, S1, S2 Respiratory: Yes: CTA Bilaterally Gastrointestinal: Yes: Normal Bowel Sounds, Soft. No: Tenderness Integumentary: Yes: Other (1cm erythematous nodule R axilla Non-tender No expressible pus) Labs: CBC, BMP 04/28/18 13:30 Assessment/Plan S/P I&D R axillary ST abscess MRSA Not in proximity to R UE AVG ESRD Redose vancomycin at HD next 3 sessions Discussed with Renal Local wound care
--- NOTE | 2018-04-28 14:55 | PN ---
Progress Note, Physician History of Present Illness: Pt seen and examined at bedside. She denies fevers or chills. She complains of a cough. - Current Medication List Current Medications: Active Medications Albuterol Sulfate (Ventolin Hfa Inhaler -) 2 puff IH Q6H PRN PRN Reason: SHORT OF BREATH/WHEEZING Albuterol/Ipratropium (Duoneb -) 1 amp NEB Q6H PRN PRN Reason: SHORTNESS OF BREATH Last Admin: 04/27/18 21:28 Dose: 1 amp Alprazolam (Xanax -) 1 mg PO Q12H PRN PRN Reason: ANXIETY Last Admin: 04/28/18 14:32 Dose: 1 mg Benzocaine/Menthol (Cepacol Lozenge -) 1 each MM PRN PRN PRN Reason: SORE THROAT Last Admin: 04/28/18 14:38 Dose: 1 each Cyclobenzaprine HCl (Flexeril -) 10 mg PO HS [facility] Last Admin: 04/26/18 22:19 Dose: 10 mg Gentamicin Sulfate (Garamycin 0.1% Ointment -) 1 applic TP BID [facility] Last Admin: 04/28/18 10:39 Dose: 1 applic Guaifenesin/Codeine Phosphate (Robitussin Ac -) 5 ml PO TID PRN PRN Reason: COUGH Last Admin: 04/28/18 10:37 Dose: 5 ml Heparin Sodium (Porcine) (Heparin -) 5,000 unit SQ BID [facility] Last Admin: 04/28/18 10:37 Dose: 5,000 unit Lidocaine (Lidoderm Patch -) 1 patch TP DAILY [facility] Last Admin: 04/28/18 10:38 Dose: 1 patch Methocarbamol (Robaxin -) 500 mg PO Q12H PRN PRN Reason: MUSCLE SPASMS Last Admin: 04/28/18 10:37 Dose: 500 mg Miscellaneous (Lidoderm Patch Removal) 1 each MC DAILY@2200 [facility] Last Admin: 04/27/18 21:50 Dose: 1 each Fluticasone/Salmeterol (Advair 100mcg/50mcg -) 1 puff IH BID [facility] Last Admin: 04/28/18 10:37 Dose: 1 puff - Objective Vital Signs: Vital Signs Temperature 98 F 04/28/18 14:32 Pulse Rate 89 04/28/18 14:32 Respiratory Rate 20 04/28/18 14:32 Blood Pressure 120/68 04/28/18 14:32 O2 Sat by Pulse Oximetry (%) 97 04/27/18 09:00 Constitutional: Yes: Anxious Eyes: Yes: Conjunctiva Clear HENT: Yes: Atraumatic Cardiovascular: Yes: S1, S2 Respiratory: Yes: On Nasal O2 Gastrointestinal: Yes: Soft Genitourinary: Yes: WNL Musculoskeletal: Yes: WNL Edema: No Neurological: Yes: Confusion Labs: CBC, BMP 04/28/18 13:30 04/28/18 13:30 Problem List - Problems (1) Abscess Code(s): L02.91 - CUTANEOUS ABSCESS, UNSPECIFIED (2) ESRD (end stage renal disease) Code(s): N18.6 - END STAGE RENAL DISEASE Assessment/Plan Current Medications Generic Name Dose Route Start Last Admin Trade Name Freq PRN Reason Stop Dose Admin Albuterol Sulfate 2 puff 04/26/18 21:27 Ventolin Hfa Inhaler - IH Q6H PRN SHORT OF BREATH/WHEEZING Albuterol/Ipratropium 1 amp 04/25/18 19:15 04/27/18 21:28 Duoneb - NEB 1 amp Q6H PRN Administration SHORTNESS OF BREATH Alprazolam 1 mg 04/27/18 12:36 04/28/18 14:32 Xanax - PO 1 mg Q12H PRN Administration ANXIETY Benzocaine/Menthol 1 each 04/28/18 03:51 04/28/18 14:38 Cepacol Lozenge - MM 1 each PRN PRN Administration SORE THROAT Cyclobenzaprine HCl 10 mg 04/25/18 22:00 04/26/18 22:19 Flexeril - PO 10 mg HS [facility] Administration Gentamicin Sulfate 1 applic 04/26/18 22:00 04/28/18 10:39 Garamycin 0.1% Ointment - TP 1 applic BID [facility] Administration Guaifenesin/Codeine Phosphate 5 ml 04/27/18 12:37 04/28/18 10:37 Robitussin Ac - PO 5 ml TID PRN Administration COUGH Heparin Sodium (Porcine) 5,000 unit 04/25/18 22:00 04/28/18 10:37 Heparin - SQ 5,000 unit BID [facility] Administration Lidocaine 1 patch 04/26/18 10:00 04/28/18 10:38 Lidoderm Patch - TP 1 patch DAILY [facility] Administration Methocarbamol 500 mg 04/26/18 04:36 04/28/18 10:37 Robaxin - PO 500 mg Q12H PRN Administration MUSCLE SPASMS Miscellaneous 1 each 04/25/18 22:00 04/27/18 21:50 Lidoderm Patch Removal MC 1 each DAILY@2200 [facility] Administration Fluticasone/Salmeterol 1 puff 04/25/18 22:00 04/28/18 10:37 Advair 100mcg/50mcg - IH 1 puff BID [facility] Administration Impression 1. ESRD 2. arm abscess 3. chronic back pain 4. anemia 5. anxiety 6. hx of nsaid use 7. chf diastolic 8. possible complex renal cyst 9. HLD 10. nephrolithiasis 11. copd Plan - HD tomorrow - epogen for anemia - 3 more doses of vanco - discussed with ID - she has HD set up as outpt - will follow Dr Coe
[2018-04-28] MEDS ORDERED: SODIUM CHLORIDE 250 ML IV PRN (14:56)
[2018-04-28] MEDS: ALBUTEROL SO4 2.5/IPRATROPIUM 0.5 INH SOL 3 ML VIAL.NEB. NEB PRN ×2 (16:46→21:52)
[2018-04-28] MEDS: LIDOCAINE PATCH REMOVAL MC SCH (22:01)
[2018-04-29] MEDS: MELATONIN 5 MG TABLETS PO PRN ×2 (01:36→21:08)
[2018-04-29] MEDS: ALPRAZolam 0.25 MG TABLET PO PRN ×2 (02:30→14:32)
[2018-04-29] MEDS: ALBUTEROL SO4 2.5/IPRATROPIUM 0.5 INH SOL 3 ML VIAL.NEB. NEB PRN ×2 (04:50→22:23)
[2018-04-29] MEDS ORDERED: PT OWN MED DRAWER 7, Y5N ONE (09:12)
[2018-04-29] MEDS: FLUTICASONE/SALMETEROL 100 MCG/50 MCG DISKUS IH SCH ×2 (09:32→21:08)
[2018-04-29] MEDS: guaiFENesin/CODEINE 5 ML UNIT-DOSE CUPS PO PRN ×2 (09:32→21:17)
[2018-04-29] MEDS: HEPARIN NA (PORCINE) 5,000 UNITS/ML 1ML VIAL SQ SCH ×2 (09:35→21:09)
[2018-04-29] MEDS: LIDOCAINE 5% TOPICAL PATCH TP SCH (09:35)
[2018-04-29] MEDS: GENTAMICIN SO4 0.1% TOPICAL OINTMENT 15 GM/TUBE TUBE TP SCH ×2 (09:39→21:19)
[2018-04-29] MEDS: BENZOCAINE/MENTH/CETYLPYRD CL 1 EACH LOZENGE MM PRN ×2 (10:05→21:10)
[2018-04-29] MEDS: METHOCARBAMOL 500 MG TABLET PO PRN (11:15)
--- NOTE | 2018-04-29 11:38 | CON.PULM ---
Consult Consult Specialty:: PULM/CCM Referred by:: HAILEE Reason for Consultation:: SOB / cough - History of Present Illness Chief Complaint: right arm swelling and pain History of Present Illness: 62 F, COPD due to smoking, bronchiectasis, chronic bronchitis, previous extensive bilateral PNA, residual LISA lesion that was suspicious for CA, anemia , anxiety, asthma, depression, kidney stones, hypertension, hypercholesterolemia , ESRD on HD, and hypothyroidism. Admitted via the ER due to right arm pain for several days. Recent drainage of a right arm abscess. Reports some increase in her chronic cough with mild increase in the amount of yellow sputum. No hemoptysis. Patient did not have any follow up from her abnormal chest imaging from 12/2018 ( 1.4 cm LISA irregular nodularity). This was the site of a previous extensive PNA. CXR: No acute process - History Source History Provided By: Patient Limitations to Obtaining History: No Limitations - Past Medical History [employer]BST[employer] SETTER: Yes: Dementia, Peripheral Neuropathy Cardio/Vascular: Yes: HTN, Hyperlipdemia Pulmonary: Yes: Asthma, Bronchitis, COPD, Pneumonia. No: Pulmonary Embolus, Pulmonary Fibrosis, Sleep Apnea Gastrointestinal: Yes: Gastritis Renal/: Yes: Renal Inusuff, Hemodialysis ...LMP: 07/25/12 ...: No Infectious Disease: Yes: MRSA Psych: Yes: Anxiety, Depression Musculoskeletal: Yes: Chronic low back pain Endocrine: Yes: Hyperthyroidism - Past Surgical History Past Surgical History: Yes: AV Fistula/Graft, Joint Replacement (hip replacement ) - Alcohol/Substance Use Hx Alcohol Use: No History of Substance Use: reports: Marijuana - Smoking History Smoking history: Current every day smoker Have you smoked in the past 12 months: Yes Aproximately how many cigarettes per day: 6 If you are a former smoker, when did you quit?: refused booklet 07/21/14 - Social History Usual Living Arrangement: With Child (youngest son) ADL: Independent Occupation: not working, SSI History of Recent Travel: No Home Medications - Allergies Allergies/Adverse Reactions: Allergies Allergy/AdvReac Type Severity Reaction Status Date / Time levofloxacin [From Levaquin] Allergy Mild Itching Verified 03/12/18 18:36 - Home Medications Home Medications: Ambulatory Orders Cyclobenzaprine HCl [Flexeril -] 10 mg PO HS #7 tablet 01/31/18 Ibuprofen [Motrin -] 400 mg PO QID PRN #28 tablet 02/23/18 Methocarbamol [Robaxin -] 500 mg PO BID PRN #14 tablet 02/23/18 Lidocaine 5% Patch [Lidoderm -] 1 patch TP DAILY #7 patch 03/02/18 Albuterol 2.5/Ipratropium 0.5 [Duoneb -] 1 amp NEB Q6H PRN amp 03/14/18 Salmeterol/Fluticasone [Advair 100Mcg/50Mcg -] 1 puff IH BID inhaler 03/14/18 Sulfamethoxazole/Trimethoprim [Bactrim Ds -] 1 tab PO BID #14 tablet 04/18/18 Albuterol Sulfate Inhaler - [Ventolin HFA Inhaler -] 2 puff IH QID PRN 04/26/18 Family Disease History - Family Disease History Family Disease History: Other: Father (alive), Mother (alive), Sister (alive), Son (23 yo old - alive - healthy) Physical Exam Vital Sings: Vital Signs Temperature 98.2 F 04/29/18 09:35 Pulse Rate 91 H 04/29/18 09:35 Respiratory Rate 20 04/29/18 09:35 Blood Pressure 117/57 L 04/29/18 09:35 O2 Sat by Pulse Oximetry (%) 97 04/28/18 20:37 Constitutional: Yes: No Distress, Anxious Eyes: Yes: Conjunctiva Clear, EOM Intact HENT: Yes: Atraumatic, Normocephalic Neck: Yes: Supple, Trachea Midline Cardiovascular: Yes: Regular Rate and Rhythm Respiratory: Yes: Cough, Diminished, Rhonchi, Wheezes. No: Accessory Muscle Use , Rales, Tachypnea ...Inspection: Yes: WNL ...Clubbing: No Gastrointestinal: Yes: Normal Bowel Sounds, Soft Renal/: Yes: WNL Musculoskeletal: Yes: WNL Extremities: Yes: WNL Edema: No Peripheral Pulses WNL: Yes Integumentary: Yes: Erythema Neurological: Yes: Alert, Oriented ...Motor Strength: WNL Psychiatric: Yes: WNL, Alert, Oriented Labs: CBC, BMP 04/28/18 13:30 04/28/18 13:30 Imaging - Results Chest X-ray: Report Reviewed, Image Reviewed Problem List - Problems (1) Abscess Code(s): L02.91 - CUTANEOUS ABSCESS, UNSPECIFIED (2) Cellulitis Code(s): L03.90 - CELLULITIS, UNSPECIFIED Qualifiers: Site of cellulitis: extremity Site of cellulitis of extremity: axilla Laterality: right Qualified Code(s): L03.111 - Cellulitis of right axilla (3) ESRD (end stage renal disease) on dialysis Code(s): N18.6 - END STAGE RENAL DISEASE; Z99.2 - DEPENDENCE ON RENAL DIALYSIS (4) Anemia Code(s): D64.9 - ANEMIA, UNSPECIFIED (5) Bronchiectasis Code(s): J47.9 - BRONCHIECTASIS, UNCOMPLICATED (6) COPD with acute exacerbation Code(s): J44.1 - CHRONIC OBSTRUCTIVE PULMONARY DISEASE W (ACUTE) EXACERBATION (7) Chronic low back pain Code(s): M54.5 - LOW BACK PAIN; G89.29 - OTHER CHRONIC PAIN Qualifiers: Back pain laterality: midline Sciatica presence: without sciatica Qualified Code(s): M54.5 - Low back pain; G89.29 - Other chronic pain (8) ESRD (end stage renal disease) Code(s): N18.6 - END STAGE RENAL DISEASE (9) Emphysema lung Code(s): J43.9 - EMPHYSEMA, UNSPECIFIED (10) Hyperlipidemia Code(s): E78.5 - HYPERLIPIDEMIA, UNSPECIFIED (11) Lung nodule Code(s): R91.1 - SOLITARY PULMONARY NODULE (12) Muscle spasm of back Code(s): M62.830 - MUSCLE SPASM OF BACK (13) Anxiety and depression Code(s): F41.8 - OTHER SPECIFIED ANXIETY DISORDERS (14) Asthma Code(s): J45.909 - UNSPECIFIED ASTHMA, UNCOMPLICATED Qualifiers: Asthma severity: unspecified severity Asthma persistence: unspecified Asthma complication type: unspecified Qualified Code(s): J45.909 - Unspecified asthma, uncomplicated (15) Hypertension Code(s): I10 - ESSENTIAL (PRIMARY) HYPERTENSION Qualifiers: Hypertension type: essential hypertension Qualified Code(s): I10 - Essential (primary) hypertension (16) Cough Code(s): R05 - COUGH Assessment/Plan Prednisone 40mg OD x 5 days BD TX as ordered On D/C should be on LAMA/LABA/ICS Patient was to follow for PET imaging after her CT in 12/2017 and did not follow due to insurance issues: Advise PET imaging SHOSHANA ABX per ID No smoking Should have repeat PFTs once stable as an outpatient No Pulmonary contraindication for D/C planning Thank you. Dr Benavidez
--- NOTE | 2018-04-29 11:46 | PN ---
Progress Note, Physician Chief Complaint: sitting up in bed complaining of cough and pain in her chest wall muscles secondary to cough to go to HD today and get vancomycin dose - Current Medication List Current Medications: Active Medications Albuterol Sulfate (Ventolin Hfa Inhaler -) 2 puff IH Q6H PRN PRN Reason: SHORT OF BREATH/WHEEZING Albuterol/Ipratropium (Duoneb -) 1 amp NEB Q6H PRN PRN Reason: SHORTNESS OF BREATH Last Admin: 04/29/18 04:50 Dose: 1 amp Alprazolam (Xanax -) 1 mg PO Q12H PRN PRN Reason: ANXIETY Last Admin: 04/29/18 02:30 Dose: 1 mg Benzocaine/Menthol (Cepacol Lozenge -) 1 each MM PRN PRN PRN Reason: SORE THROAT Last Admin: 04/29/18 10:05 Dose: 1 each Cyclobenzaprine HCl (Flexeril -) 10 mg PO HS [facility] Last Admin: 04/26/18 22:19 Dose: 10 mg Epoetin Zachery (Procrit -) 8,000 unit IVPUSH ONCE ONE Stop: 04/29/18 14:57 Gentamicin Sulfate (Garamycin 0.1% Ointment -) 1 applic TP BID [facility] Last Admin: 04/29/18 09:39 Dose: 1 applic Guaifenesin/Codeine Phosphate (Robitussin Ac -) 5 ml PO TID PRN PRN Reason: COUGH Last Admin: 04/29/18 09:32 Dose: 5 ml Heparin Sodium (Porcine) (Heparin -) 5,000 unit SQ BID [facility] Last Admin: 04/29/18 09:35 Dose: 5,000 unit Heparin Sodium (Porcine) (Heparin -) 500 unit IVPUSH ONCE ONE Stop: 04/29/18 14:57 Sodium Chloride (Normal Saline -) 250 mls @ 3,000 mls/hr IV PRN PRN PRN Reason: Hypotension during Dialysis Stop: 04/29/18 14:56 Vancomycin HCl (Vancomycin (Pre-Docked)) 1,000 mg in 250 mls @ 200 mls/hr IVPB ONCE ONE; Protocol Stop: 04/29/18 16:10 Lidocaine (Lidoderm Patch -) 1 patch TP DAILY [facility] Last Admin: 04/29/18 09:35 Dose: 1 patch Melatonin (Melatonin) 5 mg PO HS PRN PRN Reason: INSOMNIA Last Admin: 04/29/18 01:36 Dose: 5 mg Methocarbamol (Robaxin -) 500 mg PO Q12H PRN PRN Reason: MUSCLE SPASMS Last Admin: 04/29/18 11:15 Dose: 500 mg Miscellaneous (Lidoderm Patch Removal) 1 each MC DAILY@2200 [facility] Last Admin: 04/28/18 22:01 Dose: 1 each Fluticasone/Salmeterol (Advair 100mcg/50mcg -) 1 puff IH BID [facility] Last Admin: 04/29/18 09:32 Dose: 1 puff - Objective Vital Signs: Vital Signs Temperature 98.2 F 04/29/18 09:35 Pulse Rate 91 H 04/29/18 09:35 Respiratory Rate 20 04/29/18 09:35 Blood Pressure 117/57 L 04/29/18 09:35 O2 Sat by Pulse Oximetry (%) 97 04/28/18 20:37 Constitutional: Yes: Anxious Cardiovascular: Yes: Regular Rate and Rhythm, S1, S2 Respiratory: Yes: Rhonchi Gastrointestinal: Yes: Normal Bowel Sounds, Soft Edema: No Labs: CBC, BMP 04/28/18 13:30 04/28/18 13:30 Assessment/Plan ESRD on HD- HD today, epogen with HD, s/p I&D of right axillary abscess- MRSA needs 2 more dose of vancomycin with HD after today dose cough:h/o of chronic lung disease needs PET scan as outpatient to evaluate apex of left lung prednisone 40mg po daily for 5 days bronchodilators. oral steroids,tussin syrup muscular pain secondary to cough robaxan insomnia melatonin awaiting placement at [facility]
[2018-04-29] MEDS ORDERED: LORazepam 2 MG/ML SDV VIAL IM ONE (12:45)
[2018-04-29] MEDS ORDERED: HEPARIN NA (PORCINE) 5,000 UNITS/ML 1ML VIAL IVPUSH ONE (14:00)
[2018-04-29 14:34] LABS: HEMATOCRIT 25.3 % (32.4-45.2); HEMOGLOBIN 8.1 GM/dL (10.7-15.3); MCH 29.2 pg (25.7-33.7); MCHC 32.1 g/dl (32.0-36.0); MEAN CELL VOLUME 91.1 fl (80-96); MEAN PLT VOLUME 7.8 fl (7.5-11.1); PLATELET COUNT 312 K/MM3 (134-434); RBC 2.78 M/mm3 (3.60-5.2); WHITE BLOOD COUNT 5.6 K/mm3 (4.0-10.0)
[2018-04-29] MEDS ORDERED: EPOETIN ALFA 10,000 UNIT/1 ML VIAL IVPUSH ONE (14:56)
[2018-04-29] MEDS ORDERED: VANCOMYCIN 1,000 MG in DEXTROSE 5%-WATER - 250 ML IVPB ONE (14:56)
[2018-04-29 15:09] LABS: ANION GAP 11 MMOL/L (8-16); BLOOD UREA NITROGEN 57 mg/dL (7-18); CALCIUM 8.4 mg/dL (8.5-10.1); CHLORIDE 103 mmol/L (98-107); CO2 24 mmol/L (21-32); CREATININE 4.8 mg/dL (0.55-1.3); GLUCOSE,RANDOM 116 mg/dL (74-106); POTASSIUM 3.7 mmol/L (3.5-5.1); SODIUM 138 mmol/L (136-145)
[2018-04-29] MEDS ORDERED: ACETAMINOPHEN 325 MG TABLET (FP) PO ONE (15:15)
[2018-04-29] MEDS ORDERED: oxyCODONE HCL 5 MG TABLET PO ONE (15:15)
--- NOTE | 2018-04-29 16:12 | PN ---
Progress Note, Physician History of Present Illness: Pt seen and examined at bedside. She is tolerating HD. SHe denies chest pain. She has a cough. - Current Medication List Current Medications: Active Medications Albuterol Sulfate (Ventolin Hfa Inhaler -) 2 puff IH Q6H PRN PRN Reason: SHORT OF BREATH/WHEEZING Albuterol/Ipratropium (Duoneb -) 1 amp NEB Q6H PRN PRN Reason: SHORTNESS OF BREATH Last Admin: 04/29/18 04:50 Dose: 1 amp Alprazolam (Xanax -) 1 mg PO Q12H PRN PRN Reason: ANXIETY Last Admin: 04/29/18 14:32 Dose: 1 mg Benzocaine/Menthol (Cepacol Lozenge -) 1 each MM PRN PRN PRN Reason: SORE THROAT Last Admin: 04/29/18 10:05 Dose: 1 each Cyclobenzaprine HCl (Flexeril -) 10 mg PO HS [facility] Last Admin: 04/26/18 22:19 Dose: 10 mg Gentamicin Sulfate (Garamycin 0.1% Ointment -) 1 applic TP BID [facility] Last Admin: 04/29/18 09:39 Dose: 1 applic Guaifenesin/Codeine Phosphate (Robitussin Ac -) 5 ml PO TID PRN PRN Reason: COUGH Last Admin: 04/29/18 09:32 Dose: 5 ml Heparin Sodium (Porcine) (Heparin -) 5,000 unit SQ BID [facility] Last Admin: 04/29/18 09:35 Dose: 5,000 unit Lidocaine (Lidoderm Patch -) 1 patch TP DAILY [facility] Last Admin: 04/29/18 09:35 Dose: 1 patch Melatonin (Melatonin) 5 mg PO HS PRN PRN Reason: INSOMNIA Last Admin: 04/29/18 01:36 Dose: 5 mg Methocarbamol (Robaxin -) 500 mg PO Q12H PRN PRN Reason: MUSCLE SPASMS Last Admin: 04/29/18 11:15 Dose: 500 mg Miscellaneous (Lidoderm Patch Removal) 1 each MC DAILY@2200 [facility] Last Admin: 04/28/18 22:01 Dose: 1 each Prednisone (Deltasone -) 40 mg PO DAILY [facility] Stop: 05/03/18 10:01 Fluticasone/Salmeterol (Advair 100mcg/50mcg -) 1 puff IH BID [facility] Last Admin: 04/29/18 09:32 Dose: 1 puff - Objective Vital Signs: Vital Signs Temperature 98.4 F 04/29/18 13:20 Pulse Rate 59 L 04/29/18 16:00 Respiratory Rate 18 04/29/18 16:00 Blood Pressure 110/70 04/29/18 16:00 O2 Sat by Pulse Oximetry (%) 96 04/29/18 09:35 Constitutional: Yes: Calm Eyes: Yes: Conjunctiva Clear HENT: Yes: Atraumatic Neck: Yes: Supple Cardiovascular: Yes: S1, S2 Respiratory: Yes: On Nasal O2 Gastrointestinal: Yes: Soft Genitourinary: Yes: WNL Musculoskeletal: Yes: WNL Edema: No Neurological: Yes: Confusion Labs: CBC, BMP 04/29/18 14:15 04/29/18 14:15 Problem List - Problems (1) Abscess Code(s): L02.91 - CUTANEOUS ABSCESS, UNSPECIFIED (2) ESRD (end stage renal disease) Code(s): N18.6 - END STAGE RENAL DISEASE Assessment/Plan Current Medications Generic Name Dose Route Start Last Admin Trade Name Freq PRN Reason Stop Dose Admin Albuterol Sulfate 2 puff 04/26/18 21:27 Ventolin Hfa Inhaler - IH Q6H PRN SHORT OF BREATH/WHEEZING Albuterol/Ipratropium 1 amp 04/25/18 19:15 04/29/18 04:50 Duoneb - NEB 1 amp Q6H PRN Administration SHORTNESS OF BREATH Alprazolam 1 mg 04/27/18 12:36 04/29/18 14:32 Xanax - PO 1 mg Q12H PRN Administration ANXIETY Benzocaine/Menthol 1 each 04/28/18 03:51 04/29/18 10:05 Cepacol Lozenge - MM 1 each PRN PRN Administration SORE THROAT Cyclobenzaprine HCl 10 mg 04/25/18 22:00 04/26/18 22:19 Flexeril - PO 10 mg HS [facility] Administration Gentamicin Sulfate 1 applic 04/26/18 22:00 04/29/18 09:39 Garamycin 0.1% Ointment - TP 1 applic BID [facility] Administration Guaifenesin/Codeine Phosphate 5 ml 04/27/18 12:37 04/29/18 09:32 Robitussin Ac - PO 5 ml TID PRN Administration COUGH Heparin Sodium (Porcine) 5,000 unit 04/25/18 22:00 04/29/18 09:35 Heparin - SQ 5,000 unit BID [facility] Administration Lidocaine 1 patch 04/26/18 10:00 04/29/18 09:35 Lidoderm Patch - TP 1 patch DAILY [facility] Administration Melatonin 5 mg 04/29/18 01:14 04/29/18 01:36 Melatonin PO 5 mg HS PRN Administration INSOMNIA Methocarbamol 500 mg 04/26/18 04:36 04/29/18 11:15 Robaxin - PO 500 mg Q12H PRN Administration MUSCLE SPASMS Miscellaneous 1 each 04/25/18 22:00 04/28/18 22:01 Lidoderm Patch Removal MC 1 each DAILY@2200 [facility] Administration Prednisone 40 mg 04/29/18 12:00 Deltasone - PO 05/03/18 10:01 DAILY [facility] Fluticasone/Salmeterol 1 puff 04/25/18 22:00 04/29/18 09:32 Advair 100mcg/50mcg - IH 1 puff BID [facility] Administration Impression 1. ESRD 2. arm abscess 3. chronic back pain 4. anemia 5. anxiety 6. hx of nsaid use 7. chf diastolic 8. possible complex renal cyst 9. HLD 10. nephrolithiasis 11. copd Plan - HD today - pt to get 2 more doses of vanco - epogen for anemia - she has HD set up as outpt - will follow Dr Coe
[2018-04-29] MEDS: predniSONE 20 MG TABLET (UD) PO SCH (17:11)
[2018-04-29] MEDS: LIDOCAINE PATCH REMOVAL MC SCH (21:56)
[2018-04-30] MEDS: ALPRAZolam 0.25 MG TABLET PO PRN ×2 (02:20→15:53)
[2018-04-30] MEDS: ALBUTEROL SO4 2.5/IPRATROPIUM 0.5 INH SOL 3 ML VIAL.NEB. NEB PRN ×3 (03:00→21:55)
[2018-04-30] MEDS ORDERED: oxyCODONE HCL 5 MG TABLET PO ONE ×3 (07:23→23:00)
[2018-04-30] MEDS: HEPARIN NA (PORCINE) 5,000 UNITS/ML 1ML VIAL SQ SCH ×2 (09:53→23:09)
[2018-04-30] MEDS: predniSONE 20 MG TABLET (UD) PO SCH (09:53)
[2018-04-30] MEDS: FLUTICASONE/SALMETEROL 100 MCG/50 MCG DISKUS IH SCH ×2 (09:53→23:09)
[2018-04-30] MEDS: LIDOCAINE 5% TOPICAL PATCH TP SCH (09:53)
[2018-04-30] MEDS: GENTAMICIN SO4 0.1% TOPICAL OINTMENT 15 GM/TUBE TUBE TP SCH ×2 (10:05→23:09)
--- NOTE | 2018-04-30 12:39 | PN ---
Progress Note, Physician History of Present Illness: Pt seen and examined at bedside. She is awake and alert. She denies shortness of breath. - Current Medication List Current Medications: Active Medications Albuterol Sulfate (Ventolin Hfa Inhaler -) 2 puff IH Q6H PRN PRN Reason: SHORT OF BREATH/WHEEZING Albuterol/Ipratropium (Duoneb -) 1 amp NEB Q6H PRN PRN Reason: SHORTNESS OF BREATH Last Admin: 04/30/18 10:56 Dose: 1 amp Alprazolam (Xanax -) 1 mg PO Q12H PRN PRN Reason: ANXIETY Last Admin: 04/30/18 02:20 Dose: 1 mg Benzocaine/Menthol (Cepacol Lozenge -) 1 each MM PRN PRN PRN Reason: SORE THROAT Last Admin: 04/29/18 21:10 Dose: 1 each Cyclobenzaprine HCl (Flexeril -) 10 mg PO HS [facility] Last Admin: 04/26/18 22:19 Dose: 10 mg Gentamicin Sulfate (Garamycin 0.1% Ointment -) 1 applic TP BID [facility] Last Admin: 04/30/18 10:05 Dose: 1 applic Heparin Sodium (Porcine) (Heparin -) 5,000 unit SQ BID [facility] Last Admin: 04/30/18 09:53 Dose: 5,000 unit Lidocaine (Lidoderm Patch -) 1 patch TP DAILY [facility] Last Admin: 04/30/18 09:53 Dose: 1 patch Melatonin (Melatonin) 5 mg PO HS PRN PRN Reason: INSOMNIA Last Admin: 04/29/18 21:08 Dose: 5 mg Methocarbamol (Robaxin -) 500 mg PO Q12H PRN PRN Reason: MUSCLE SPASMS Last Admin: 04/29/18 11:15 Dose: 500 mg Miscellaneous (Lidoderm Patch Removal) 1 each MC DAILY@2200 [facility] Last Admin: 04/29/18 21:56 Dose: 1 each Prednisone (Deltasone -) 40 mg PO DAILY [facility] Stop: 05/03/18 10:01 Last Admin: 04/30/18 09:53 Dose: 40 mg Fluticasone/Salmeterol (Advair 100mcg/50mcg -) 1 puff IH BID [facility] Last Admin: 04/30/18 09:53 Dose: 1 puff - Objective Vital Signs: Vital Signs Temperature 98.1 F 04/30/18 09:30 Pulse Rate 101 H 04/30/18 09:30 Respiratory Rate 20 04/30/18 09:30 Blood Pressure 134/83 04/30/18 09:30 O2 Sat by Pulse Oximetry (%) 96 04/29/18 21:00 Constitutional: Yes: Calm Eyes: Yes: Conjunctiva Clear HENT: Yes: Atraumatic Cardiovascular: Yes: S1, S2 Respiratory: Yes: Wheezes Gastrointestinal: Yes: Soft Genitourinary: Yes: WNL Musculoskeletal: Yes: WNL Edema: No Neurological: Yes: Confusion Labs: CBC, BMP 04/29/18 14:15 04/29/18 14:15 Problem List - Problems (1) Abscess Code(s): L02.91 - CUTANEOUS ABSCESS, UNSPECIFIED (2) ESRD (end stage renal disease) Code(s): N18.6 - END STAGE RENAL DISEASE Assessment/Plan Current Medications Generic Name Dose Route Start Last Admin Trade Name Freq PRN Reason Stop Dose Admin Albuterol Sulfate 2 puff 04/26/18 21:27 Ventolin Hfa Inhaler - IH Q6H PRN SHORT OF BREATH/WHEEZING Albuterol/Ipratropium 1 amp 04/25/18 19:15 04/30/18 10:56 Duoneb - NEB 1 amp Q6H PRN Administration SHORTNESS OF BREATH Alprazolam 1 mg 04/27/18 12:36 04/30/18 02:20 Xanax - PO 1 mg Q12H PRN Administration ANXIETY Benzocaine/Menthol 1 each 04/28/18 03:51 04/29/18 21:10 Cepacol Lozenge - MM 1 each PRN PRN Administration SORE THROAT Cyclobenzaprine HCl 10 mg 04/25/18 22:00 04/26/18 22:19 Flexeril - PO 10 mg HS [facility] Administration Gentamicin Sulfate 1 applic 04/26/18 22:00 04/30/18 10:05 Garamycin 0.1% Ointment - TP 1 applic BID [facility] Administration Heparin Sodium (Porcine) 5,000 unit 04/25/18 22:00 04/30/18 09:53 Heparin - SQ 5,000 unit BID [facility] Administration Lidocaine 1 patch 04/26/18 10:00 04/30/18 09:53 Lidoderm Patch - TP 1 patch DAILY [facility] Administration Melatonin 5 mg 04/29/18 01:14 04/29/18 21:08 Melatonin PO 5 mg HS PRN Administration INSOMNIA Methocarbamol 500 mg 04/26/18 04:36 04/29/18 11:15 Robaxin - PO 500 mg Q12H PRN Administration MUSCLE SPASMS Miscellaneous 1 each 04/25/18 22:00 04/29/18 21:56 Lidoderm Patch Removal MC 1 each DAILY@2200 [facility] Administration Prednisone 40 mg 04/29/18 12:00 04/30/18 09:53 Deltasone - PO 05/03/18 10:01 40 mg DAILY [facility] Administration Fluticasone/Salmeterol 1 puff 04/25/18 22:00 04/30/18 09:53 Advair 100mcg/50mcg - IH 1 puff BID [facility] Administration Impression 1. ESRD 2. arm abscess 3. chronic back pain 4. anemia 5. anxiety 6. hx of nsaid use 7. chf diastolic 8. possible complex renal cyst 9. HLD 10. nephrolithiasis 11. copd Plan - HD in am - 2 more doses of vanco, will give a dose tomorrow with HD - epogen for anemia - she has HD set up as outpt - will follow Dr Coe
--- NOTE | 2018-04-30 14:49 | PN ---
Progress Note (short form) - Note Progress Note: PULMONARY Reports increased shortness of breath and wheezing. Vital Signs Period Temp Pulse Resp BP Sys/Bills Pulse Ox Last 24 Hr 97.7 F-98.7 F 59-101 18-20 100-134/52-83 96-96 Gen: NAD at rest Heart: RRR Lung: scattered rhonchi, wheezes Abd: soft, nontender Ext: no edema CBC, BMP 04/29/18 14:15 04/29/18 14:15 Active Medications Albuterol Sulfate (Ventolin Hfa Inhaler -) 2 puff IH Q6H PRN PRN Reason: SHORT OF BREATH/WHEEZING Albuterol/Ipratropium (Duoneb -) 1 amp NEB Q6H PRN PRN Reason: SHORTNESS OF BREATH Last Admin: 04/30/18 10:56 Dose: 1 amp Alprazolam (Xanax -) 1 mg PO Q12H PRN PRN Reason: ANXIETY Last Admin: 04/30/18 02:20 Dose: 1 mg Benzocaine/Menthol (Cepacol Lozenge -) 1 each MM PRN PRN PRN Reason: SORE THROAT Last Admin: 04/29/18 21:10 Dose: 1 each Cyclobenzaprine HCl (Flexeril -) 10 mg PO HS [facility] Last Admin: 04/26/18 22:19 Dose: 10 mg Epoetin Zachery (Epogen -) 8,000 unit IVPUSH ONCE ONE Stop: 05/01/18 12:40 Gentamicin Sulfate (Garamycin 0.1% Ointment -) 1 applic TP BID [facility] Last Admin: 04/30/18 10:05 Dose: 1 applic Heparin Sodium (Porcine) (Heparin -) 5,000 unit SQ BID [facility] Last Admin: 04/30/18 09:53 Dose: 5,000 unit Heparin Sodium (Porcine) (Heparin -) 500 unit IVPUSH ONCE ONE Stop: 05/01/18 12:40 Sodium Chloride (Normal Saline -) 250 mls @ 3,000 mls/hr IV PRN PRN PRN Reason: Hypotension during Dialysis Stop: 05/01/18 12:39 Vancomycin HCl (Vancomycin 1 Gm Premix -) 200 mls @ 200 mls/hr IVPB ONCE ONE; Protocol Stop: 05/01/18 13:38 Lidocaine (Lidoderm Patch -) 1 patch TP DAILY [facility] Last Admin: 04/30/18 09:53 Dose: 1 patch Melatonin (Melatonin) 5 mg PO HS PRN PRN Reason: INSOMNIA Last Admin: 04/29/18 21:08 Dose: 5 mg Methocarbamol (Robaxin -) 500 mg PO Q12H PRN PRN Reason: MUSCLE SPASMS Last Admin: 04/29/18 11:15 Dose: 500 mg Miscellaneous (Lidoderm Patch Removal) 1 each MC DAILY@2200 [facility] Last Admin: 04/29/18 21:56 Dose: 1 each Prednisone (Deltasone -) 40 mg PO DAILY [facility] Stop: 05/03/18 10:01 Last Admin: 04/30/18 09:53 Dose: 40 mg Fluticasone/Salmeterol (Advair 100mcg/50mcg -) 1 puff IH BID [facility] Last Admin: 04/30/18 09:53 Dose: 1 puff A/P Acute COPD Exacerbation Abnormal CT chest/Pleural Thickening ESRD on HD LV Diastolic Dysfunction Arm Abscess - will change steroids to IV while inpatient - inhaled bronchodilators - O2 as needed - HD per renal - DVT prophylaxis
--- NOTE | 2018-04-30 14:52 | PN ---
Progress Note, Physician Chief Complaint: Acute COPD Exacerbation Abnormal CT chest/Pleural Thickening ESRD on HD LV Diastolic Dysfunction Arm Abscess History of Present Illness: NAD Awaiting SNF placement - Current Medication List Current Medications: Active Medications Albuterol Sulfate (Ventolin Hfa Inhaler -) 2 puff IH Q6H PRN PRN Reason: SHORT OF BREATH/WHEEZING Albuterol/Ipratropium (Duoneb -) 1 amp NEB Q6H PRN PRN Reason: SHORTNESS OF BREATH Last Admin: 04/30/18 10:56 Dose: 1 amp Alprazolam (Xanax -) 1 mg PO Q12H PRN PRN Reason: ANXIETY Last Admin: 04/30/18 02:20 Dose: 1 mg Benzocaine/Menthol (Cepacol Lozenge -) 1 each MM PRN PRN PRN Reason: SORE THROAT Last Admin: 04/29/18 21:10 Dose: 1 each Cyclobenzaprine HCl (Flexeril -) 10 mg PO HS [facility] Last Admin: 04/26/18 22:19 Dose: 10 mg Epoetin Zachery (Epogen -) 8,000 unit IVPUSH ONCE ONE Stop: 05/01/18 12:40 Gentamicin Sulfate (Garamycin 0.1% Ointment -) 1 applic TP BID [facility] Last Admin: 04/30/18 10:05 Dose: 1 applic Heparin Sodium (Porcine) (Heparin -) 5,000 unit SQ BID [facility] Last Admin: 04/30/18 09:53 Dose: 5,000 unit Heparin Sodium (Porcine) (Heparin -) 500 unit IVPUSH ONCE ONE Stop: 05/01/18 12:40 Sodium Chloride (Normal Saline -) 250 mls @ 3,000 mls/hr IV PRN PRN PRN Reason: Hypotension during Dialysis Stop: 05/01/18 12:39 Vancomycin HCl (Vancomycin 1 Gm Premix -) 200 mls @ 200 mls/hr IVPB ONCE ONE; Protocol Stop: 05/01/18 13:38 Lidocaine (Lidoderm Patch -) 1 patch TP DAILY [facility] Last Admin: 04/30/18 09:53 Dose: 1 patch Melatonin (Melatonin) 5 mg PO HS PRN PRN Reason: INSOMNIA Last Admin: 04/29/18 21:08 Dose: 5 mg Methocarbamol (Robaxin -) 500 mg PO Q12H PRN PRN Reason: MUSCLE SPASMS Last Admin: 04/29/18 11:15 Dose: 500 mg Methylprednisolone Sodium Succinate (Solu-Medrol -) 40 mg IVPUSH Q8H-IV [facility] Miscellaneous (Lidoderm Patch Removal) 1 each MC DAILY@2200 [facility] Last Admin: 04/29/18 21:56 Dose: 1 each Fluticasone/Salmeterol (Advair 100mcg/50mcg -) 1 puff IH BID [facility] Last Admin: 04/30/18 09:53 Dose: 1 puff - Objective Vital Signs: Vital Signs Temperature 98.7 F 04/30/18 14:02 Pulse Rate 80 04/30/18 14:02 Respiratory Rate 20 04/30/18 14:02 Blood Pressure 100/69 04/30/18 14:02 O2 Sat by Pulse Oximetry (%) 96 04/30/18 09:00 Constitutional: Yes: Well Nourished, No Distress, Calm Cardiovascular: Yes: Regular Rate and Rhythm Respiratory: Yes: Regular Gastrointestinal: Yes: Normal Bowel Sounds, Soft Musculoskeletal: Yes: WNL Extremities: Yes: WNL Edema: No Labs: CBC, BMP 04/29/18 14:15 04/29/18 14:15 Problem List - Problems (1) Abscess Assessment/Plan: -BC negative -Seen by ID -Receiving Vanco IV -afebrile -no leukocytosis Code(s): L02.91 - CUTANEOUS ABSCESS, UNSPECIFIED (2) ESRD (end stage renal disease) on dialysis Assessment/Plan: -On HD TThSa -Nephrology on board Code(s): N18.6 - END STAGE RENAL DISEASE; Z99.2 - DEPENDENCE ON RENAL DIALYSIS (3) COPD (chronic obstructive pulmonary disease) Assessment/Plan: -seen by pulmonary -bronchodilators -Robitussin and cepacol for cough Code(s): J44.9 - CHRONIC OBSTRUCTIVE PULMONARY DISEASE, UNSPECIFIED Qualifiers: COPD type: chronic bronchitis Chronic bronchitis type: unspecified Qualified Code(s): J42 - Unspecified chronic bronchitis (4) Anemia Assessment/Plan: -2/2 to CKD -Stable and monitor trend Code(s): D64.9 - ANEMIA, UNSPECIFIED (5) Chronic low back pain Assessment/Plan: -methocarbamol -lidocaine patches -cyclobenzaprine -oxycodone -physical therapy Code(s): M54.5 - LOW BACK PAIN; G89.29 - OTHER CHRONIC PAIN Qualifiers: Back pain laterality: midline Sciatica presence: without sciatica Qualified Code(s): M54.5 - Low back pain; G89.29 - Other chronic pain Assessment/Plan see problem list
[2018-04-30] MEDS: methylPREDNISolone NA SUCC 40 MG/1 ML VIAL IVPUSH SCH ×2 (15:53→18:48)
[2018-04-30] MEDS: guaiFENesin/CODEINE 5 ML UNIT-DOSE CUPS PO PRN (18:48)
[2018-04-30] MEDS ORDERED: PT OWN MED DRAWER 7, Y5N ONE (22:21)
[2018-04-30] MEDS ORDERED: ACETAMINOPHEN 325 MG TABLET (FP) PO ONE ×2 (22:50→23:00)
[2018-04-30] MEDS: MELATONIN 5 MG TABLETS PO PRN (23:09)
[2018-04-30] MEDS: CYCLOBENZAPRINE HCL 10 MG TABLET (FP) PO SCH (23:09)
[2018-04-30] MEDS: LIDOCAINE PATCH REMOVAL MC SCH (23:10)
[2018-05-01 00:09] LABS: URINE APPEARANCE CLEAR; URINE BILIRUBIN NEGATIVE (<2.0 mg/dL); URINE COLOR STRAW; URINE GLUCOSE (UA) 2+ (NEGATIVE); URINE KETONE NEGATIVE (NEGATIVE); URINE LEUK ESTERASE NEGATIVE (NEGATIVE); URINE NITRITE NEGATIVE (NEGATIVE); URINE PROTEIN 2+ (NEGATIVE); URINE UROBILINOGEN NEGATIVE mg/dL (0.2-1.0)
[2018-05-01 00:19] LABS: EPI CELLS RARE /HPF (FEW)
[2018-05-01] MEDS: BENZOCAINE/MENTH/CETYLPYRD CL 1 EACH LOZENGE MM PRN (03:10)
[2018-05-01] MEDS: methylPREDNISolone NA SUCC 40 MG/1 ML VIAL IVPUSH SCH ×3 (03:11→17:05)
[2018-05-01] MEDS: ALBUTEROL SO4 2.5/IPRATROPIUM 0.5 INH SOL 3 ML VIAL.NEB. NEB PRN ×3 (03:22→20:05)
[2018-05-01] MEDS: ALPRAZolam 0.25 MG TABLET PO PRN ×2 (03:42→14:14)
[2018-05-01] MEDS ORDERED: PT OWN MED DRAWER 7, Y5N ONE (05:54)
[2018-05-01] MEDS: METHOCARBAMOL 500 MG TABLET PO PRN (05:56)
[2018-05-01] MEDS: FLUTICASONE/SALMETEROL 100 MCG/50 MCG DISKUS IH SCH ×2 (09:21→22:35)
[2018-05-01] MEDS: HEPARIN NA (PORCINE) 5,000 UNITS/ML 1ML VIAL SQ SCH ×2 (09:21→22:34)
[2018-05-01] MEDS: LIDOCAINE 5% TOPICAL PATCH TP SCH (09:25)
[2018-05-01] MEDS: GENTAMICIN SO4 0.1% TOPICAL OINTMENT 15 GM/TUBE TUBE TP SCH ×2 (09:27→22:35)
--- NOTE | 2018-05-01 09:38 | PN ---
Progress Note (short form) - Note Progress Note: Feels better on IV Medrol. Less cough and SOB. Intake & Output 04/28/18 04/29/18 04/30/18 05/01/18 23:59 23:59 23:59 23:59 Intake Total 1930 985 1708 300 Balance 2101 795 8594 300 Last Vital Signs Temp Pulse Resp BP Pulse Ox 97.8 F 99 H 18 129/74 94 L 05/01/18 08:26 05/01/18 08:26 05/01/18 08:26 05/01/18 08:26 04/30/18 21:00 Active Medications Albuterol Sulfate (Ventolin Hfa Inhaler -) 2 puff IH Q6H PRN PRN Reason: SHORT OF BREATH/WHEEZING Albuterol/Ipratropium (Duoneb -) 1 amp NEB Q6H PRN PRN Reason: SHORTNESS OF BREATH Last Admin: 05/01/18 08:05 Dose: 1 amp Alprazolam (Xanax -) 1 mg PO Q12H PRN PRN Reason: ANXIETY Last Admin: 05/01/18 03:42 Dose: 1 mg Benzocaine/Menthol (Cepacol Lozenge -) 1 each MM PRN PRN PRN Reason: SORE THROAT Last Admin: 05/01/18 03:10 Dose: 1 each Cyclobenzaprine HCl (Flexeril -) 10 mg PO HS [facility] Last Admin: 04/30/18 23:09 Dose: 10 mg Epoetin Zachery (Epogen -) 8,000 unit IVPUSH ONCE ONE Stop: 05/01/18 12:40 Gentamicin Sulfate (Garamycin 0.1% Ointment -) 1 applic TP BID [facility] Last Admin: 05/01/18 09:27 Dose: 1 applic Guaifenesin/Codeine Phosphate (Robitussin Ac -) 5 ml PO TID PRN PRN Reason: COUGH Last Admin: 04/30/18 18:48 Dose: 5 ml Heparin Sodium (Porcine) (Heparin -) 5,000 unit SQ BID [facility] Last Admin: 05/01/18 09:21 Dose: 5,000 unit Heparin Sodium (Porcine) (Heparin -) 500 unit IVPUSH ONCE ONE Stop: 05/01/18 12:40 Sodium Chloride (Normal Saline -) 250 mls @ 3,000 mls/hr IV PRN PRN PRN Reason: Hypotension during Dialysis Stop: 05/01/18 12:39 Vancomycin HCl (Vancomycin 1 Gm Premix -) 200 mls @ 200 mls/hr IVPB ONCE ONE; Protocol Stop: 05/01/18 13:38 Lidocaine (Lidoderm Patch -) 1 patch TP DAILY [facility] Last Admin: 05/01/18 09:25 Dose: 1 patch Melatonin (Melatonin) 5 mg PO HS PRN PRN Reason: INSOMNIA Last Admin: 04/30/18 23:09 Dose: 5 mg Methocarbamol (Robaxin -) 500 mg PO Q12H PRN PRN Reason: MUSCLE SPASMS Last Admin: 05/01/18 05:56 Dose: 500 mg Methylprednisolone Sodium Succinate (Solu-Medrol -) 40 mg IVPUSH Q8H-IV [facility] Last Admin: 05/01/18 09:25 Dose: 40 mg Miscellaneous (Lidoderm Patch Removal) 1 each MC DAILY@2200 [facility] Last Admin: 04/30/18 23:10 Dose: 1 each Fluticasone/Salmeterol (Advair 100mcg/50mcg -) 1 puff IH BID [facility] Last Admin: 05/01/18 09:21 Dose: 1 puff Constitutional: Yes: No Distress, Anxious Eyes: Yes: Conjunctiva Clear, EOM Intact HENT: Yes: Atraumatic, Normocephalic Neck: Yes: Supple, Trachea Midline Cardiovascular: Yes: Regular Rate and Rhythm Respiratory: Yes: Cough, Diminished, Rhonchi, Wheezes. No: Accessory Muscle Use , Rales, Tachypnea ...Inspection: Yes: WNL ...Clubbing: No Gastrointestinal: Yes: Normal Bowel Sounds, Soft Renal/: Yes: WNL Musculoskeletal: Yes: WNL Extremities: Yes: WNL Edema: No Peripheral Pulses WNL: Yes Integumentary: Yes: Erythema Neurological: Yes: Alert, Oriented ...Motor Strength: WNL Psychiatric: Yes: WNL, Alert, Oriented Labs: Laboratory Results - last 24 hr 04/30/18 23:45 Urine Color Straw Urine Appearance Clear Urine pH 8.0 D Ur Specific [place] 1.008 L Urine Protein 2+ H Urine Glucose (UA) 2+ H Urine Ketones Negative Urine Blood Negative Urine Nitrite Negative Urine Bilirubin Negative Urine Urobilinogen Negative Ur Leukocyte Esterase Negative Urine WBC (Auto) 3 Urine RBC (Auto) None Ur Epithelial Cells Rare Problem List - Problems (1) Abscess Code(s): L02.91 - CUTANEOUS ABSCESS, UNSPECIFIED (2) Cellulitis Code(s): L03.90 - CELLULITIS, UNSPECIFIED Qualifiers: Site of cellulitis: extremity Site of cellulitis of extremity: axilla Laterality: right Qualified Code(s): L03.111 - Cellulitis of right axilla (3) ESRD (end stage renal disease) on dialysis Code(s): N18.6 - END STAGE RENAL DISEASE; Z99.2 - DEPENDENCE ON RENAL DIALYSIS (4) Anemia Code(s): D64.9 - ANEMIA, UNSPECIFIED (5) Bronchiectasis Code(s): J47.9 - BRONCHIECTASIS, UNCOMPLICATED (6) COPD with acute exacerbation Code(s): J44.1 - CHRONIC OBSTRUCTIVE PULMONARY DISEASE W (ACUTE) EXACERBATION (7) Chronic low back pain Code(s): M54.5 - LOW BACK PAIN; G89.29 - OTHER CHRONIC PAIN Qualifiers: Back pain laterality: midline Sciatica presence: without sciatica Qualified Code(s): M54.5 - Low back pain; G89.29 - Other chronic pain (8) ESRD (end stage renal disease) Code(s): N18.6 - END STAGE RENAL DISEASE (9) Emphysema lung Code(s): J43.9 - EMPHYSEMA, UNSPECIFIED (10) Hyperlipidemia Code(s): E78.5 - HYPERLIPIDEMIA, UNSPECIFIED (11) Lung nodule Code(s): R91.1 - SOLITARY PULMONARY NODULE (12) Muscle spasm of back Code(s): M62.830 - MUSCLE SPASM OF BACK (13) Anxiety and depression Code(s): F41.8 - OTHER SPECIFIED ANXIETY DISORDERS (14) Asthma Code(s): J45.909 - UNSPECIFIED ASTHMA, UNCOMPLICATED Qualifiers: Asthma severity: unspecified severity Asthma persistence: unspecified Asthma complication type: unspecified Qualified Code(s): J45.909 - Unspecified asthma, uncomplicated (15) Hypertension Code(s): I10 - ESSENTIAL (PRIMARY) HYPERTENSION Qualifiers: Hypertension type: essential hypertension Qualified Code(s): I10 - Essential (primary) hypertension (16) Cough Code(s): R05 - COUGH Assessment/Plan Can likely change to Prednisone 40mg OD x 5 days in the AM (05/02/2018) BD TX as ordered On D/C should be on LAMA/LABA/ICS Patient was to follow for PET imaging after her CT in 12/2017 and did not follow due to insurance issues: Advise PET imaging SHOSHANA ABX per ID No smoking Should have repeat PFTs once stable as an outpatient No Pulmonary contraindication for D/C planning Dr Benavidez Problem List - Problems (1) Abscess Code(s): L02.91 - CUTANEOUS ABSCESS, UNSPECIFIED (2) Cellulitis Code(s): L03.90 - CELLULITIS, UNSPECIFIED Qualifiers: Site of cellulitis: extremity Site of cellulitis of extremity: axilla Laterality: right Qualified Code(s): L03.111 - Cellulitis of right axilla (3) ESRD (end stage renal disease) on dialysis Code(s): N18.6 - END STAGE RENAL DISEASE; Z99.2 - DEPENDENCE ON RENAL DIALYSIS (4) Anemia Code(s): D64.9 - ANEMIA, UNSPECIFIED (5) Bronchiectasis Code(s): J47.9 - BRONCHIECTASIS, UNCOMPLICATED (6) COPD with acute exacerbation Code(s): J44.1 - CHRONIC OBSTRUCTIVE PULMONARY DISEASE W (ACUTE) EXACERBATION (7) Chronic low back pain Code(s): M54.5 - LOW BACK PAIN; G89.29 - OTHER CHRONIC PAIN Qualifiers: Back pain laterality: midline Sciatica presence: without sciatica Qualified Code(s): M54.5 - Low back pain; G89.29 - Other chronic pain (8) ESRD (end stage renal disease) Code(s): N18.6 - END STAGE RENAL DISEASE (9) Emphysema lung Code(s): J43.9 - EMPHYSEMA, UNSPECIFIED (10) Hyperlipidemia Code(s): E78.5 - HYPERLIPIDEMIA, UNSPECIFIED (11) Lung nodule Code(s): R91.1 - SOLITARY PULMONARY NODULE (12) Muscle spasm of back Code(s): M62.830 - MUSCLE SPASM OF BACK (13) Anxiety and depression Code(s): F41.8 - OTHER SPECIFIED ANXIETY DISORDERS (14) Asthma Code(s): J45.909 - UNSPECIFIED ASTHMA, UNCOMPLICATED Qualifiers: Asthma severity: unspecified severity Asthma persistence: unspecified Asthma complication type: unspecified Qualified Code(s): J45.909 - Unspecified asthma, uncomplicated (15) Hypertension Code(s): I10 - ESSENTIAL (PRIMARY) HYPERTENSION Qualifiers: Hypertension type: essential hypertension Qualified Code(s): I10 - Essential (primary) hypertension (16) Cough Code(s): R05 - COUGH
[2018-05-01] MEDS: guaiFENesin/CODEINE 5 ML UNIT-DOSE CUPS PO PRN (10:45)
[2018-05-01] MEDS ORDERED: SODIUM CHLORIDE 250 ML IV PRN (10:53)
--- NOTE | 2018-05-01 10:55 | PN ---
Progress Note, Physician Chief Complaint: Acute COPD Exacerbation Abnormal CT chest/Pleural Thickening ESRD on HD LV Diastolic Dysfunction Arm Abscess History of Present Illness: NAD Awaiting SNF placement S/P I&D R axillary ST abscess MRSA - Current Medication List Current Medications: Active Medications Albuterol Sulfate (Ventolin Hfa Inhaler -) 2 puff IH Q6H PRN PRN Reason: SHORT OF BREATH/WHEEZING Albuterol/Ipratropium (Duoneb -) 1 amp NEB Q6H PRN PRN Reason: SHORTNESS OF BREATH Last Admin: 05/01/18 08:05 Dose: 1 amp Alprazolam (Xanax -) 1 mg PO Q12H PRN PRN Reason: ANXIETY Last Admin: 05/01/18 03:42 Dose: 1 mg Benzocaine/Menthol (Cepacol Lozenge -) 1 each MM PRN PRN PRN Reason: SORE THROAT Last Admin: 05/01/18 03:10 Dose: 1 each Cyclobenzaprine HCl (Flexeril -) 10 mg PO HS [facility] Last Admin: 04/30/18 23:09 Dose: 10 mg Epoetin Zachery (Procrit -) 8,000 unit IVPUSH ONCE ONE Stop: 05/01/18 11:31 Gentamicin Sulfate (Garamycin 0.1% Ointment -) 1 applic TP BID [facility] Last Admin: 05/01/18 09:27 Dose: 1 applic Guaifenesin/Codeine Phosphate (Robitussin Ac -) 5 ml PO TID PRN PRN Reason: COUGH Last Admin: 05/01/18 10:45 Dose: 5 ml Heparin Sodium (Porcine) (Heparin -) 5,000 unit SQ BID [facility] Last Admin: 05/01/18 09:21 Dose: 5,000 unit Heparin Sodium (Porcine) (Heparin -) 500 unit IVPUSH ONCE ONE Stop: 05/01/18 11:01 Vancomycin HCl (Vancomycin 1 Gm Premix -) 1 gm in 200 mls @ 200 mls/hr IVPB ONCE ONE; Protocol Stop: 05/01/18 12:29 Lidocaine (Lidoderm Patch -) 1 patch TP DAILY [facility] Last Admin: 05/01/18 09:25 Dose: 1 patch Melatonin (Melatonin) 5 mg PO HS PRN PRN Reason: INSOMNIA Last Admin: 04/30/18 23:09 Dose: 5 mg Methocarbamol (Robaxin -) 500 mg PO Q12H PRN PRN Reason: MUSCLE SPASMS Last Admin: 05/01/18 05:56 Dose: 500 mg Methylprednisolone Sodium Succinate (Solu-Medrol -) 40 mg IVPUSH Q8H-IV [facility] Last Admin: 05/01/18 09:25 Dose: 40 mg Miscellaneous (Lidoderm Patch Removal) 1 each [facility] DAILY@2200 [facility] Last Admin: 04/30/18 23:10 Dose: 1 each Fluticasone/Salmeterol (Advair 100mcg/50mcg -) 1 puff IH BID [facility] Last Admin: 05/01/18 09:21 Dose: 1 puff - Objective Vital Signs: Vital Signs Temperature 97.8 F 05/01/18 08:26 Pulse Rate 99 H 05/01/18 08:26 Respiratory Rate 18 05/01/18 08:26 Blood Pressure 129/74 05/01/18 08:26 O2 Sat by Pulse Oximetry (%) 94 L 04/30/18 21:00 Constitutional: Yes: Well Nourished, No Distress, Calm Cardiovascular: Yes: Regular Rate and Rhythm Respiratory: Yes: Regular Gastrointestinal: Yes: Normal Bowel Sounds, Soft Labs: CBC, BMP 04/29/18 14:15 04/29/18 14:15 Problem List - Problems (1) Abscess Assessment/Plan: -BC negative -Seen by ID -Receiving Vanco IV -afebrile -no leukocytosis Code(s): L02.91 - CUTANEOUS ABSCESS, UNSPECIFIED (2) ESRD (end stage renal disease) on dialysis Assessment/Plan: -On HD TThSa -Nephrology on board Code(s): N18.6 - END STAGE RENAL DISEASE; Z99.2 - DEPENDENCE ON RENAL DIALYSIS (3) Anemia Assessment/Plan: -2/2 to CKD -Stable and monitor trend Code(s): D64.9 - ANEMIA, UNSPECIFIED (4) COPD (chronic obstructive pulmonary disease) Assessment/Plan: -seen by pulmonary -bronchodilators -Robitussin and cepacol for cough Code(s): J44.9 - CHRONIC OBSTRUCTIVE PULMONARY DISEASE, UNSPECIFIED Qualifiers: COPD type: chronic bronchitis Chronic bronchitis type: unspecified Qualified Code(s): J42 - Unspecified chronic bronchitis (5) Chronic low back pain Assessment/Plan: -methocarbamol -lidocaine patches -cyclobenzaprine -oxycodone -physical therapy Code(s): M54.5 - LOW BACK PAIN; G89.29 - OTHER CHRONIC PAIN Qualifiers: Back pain laterality: midline Sciatica presence: without sciatica Qualified Code(s): M54.5 - Low back pain; G89.29 - Other chronic pain Assessment/Plan see problem list
[2018-05-01] MEDS ORDERED: HEPARIN NA (PORCINE) 5,000 UNITS/ML 1ML VIAL IVPUSH ONE (11:00)
[2018-05-01] MEDS ORDERED: VANCOMYCIN 1 GM PREMIX - 1 GM/200 ML BAG IVPB ONE (11:30)
[2018-05-01] MEDS ORDERED: EPOETIN ALFA 10,000 UNIT/1 ML VIAL IVPUSH ONE (11:30)
[2018-05-01 11:56] LABS: HEMATOCRIT 24.4 % (32.4-45.2); HEMOGLOBIN 8.3 GM/dL (10.7-15.3); MCH 30.8 pg (25.7-33.7); MEAN CELL VOLUME 90.5 fl (80-96); MEAN PLT VOLUME 7.8 fl (7.5-11.1); PLATELET COUNT 354 K/MM3 (134-434); RBC 2.69 M/mm3 (3.60-5.2); RDW 17.7 % (11.6-15.6); WHITE BLOOD COUNT 6.1 K/mm3 (4.0-10.0)
[2018-05-01 12:11] LABS: ANION GAP 13 MMOL/L (8-16); BLOOD UREA NITROGEN 81 mg/dL (7-18); CALCIUM 8.4 mg/dL (8.5-10.1); CHLORIDE 99 mmol/L (98-107); CO2 21 mmol/L (21-32); CREATININE 5.4 mg/dL (0.55-1.3); GLUCOSE,RANDOM 137 mg/dL (74-106); POTASSIUM 4.1 mmol/L (3.5-5.1); SODIUM 134 mmol/L (136-145)
--- NOTE | 2018-05-01 15:09 | PN ---
Progress Note, Physician History of Present Illness: Pt seen and examined at bedside. She is tolerating HD today. - Current Medication List Current Medications: Active Medications Albuterol Sulfate (Ventolin Hfa Inhaler -) 2 puff IH Q6H PRN PRN Reason: SHORT OF BREATH/WHEEZING Albuterol/Ipratropium (Duoneb -) 1 amp NEB Q6H PRN PRN Reason: SHORTNESS OF BREATH Last Admin: 05/01/18 08:05 Dose: 1 amp Alprazolam (Xanax -) 1 mg PO Q12H PRN PRN Reason: ANXIETY Last Admin: 05/01/18 14:14 Dose: 1 mg Benzocaine/Menthol (Cepacol Lozenge -) 1 each MM PRN PRN PRN Reason: SORE THROAT Last Admin: 05/01/18 03:10 Dose: 1 each Cyclobenzaprine HCl (Flexeril -) 10 mg PO HS [facility] Last Admin: 04/30/18 23:09 Dose: 10 mg Gentamicin Sulfate (Garamycin 0.1% Ointment -) 1 applic TP BID [facility] Last Admin: 05/01/18 09:27 Dose: 1 applic Guaifenesin/Codeine Phosphate (Robitussin Ac -) 5 ml PO TID PRN PRN Reason: COUGH Last Admin: 05/01/18 10:45 Dose: 5 ml Heparin Sodium (Porcine) (Heparin -) 5,000 unit SQ BID [facility] Last Admin: 05/01/18 09:21 Dose: 5,000 unit Lidocaine (Lidoderm Patch -) 1 patch TP DAILY [facility] Last Admin: 05/01/18 09:25 Dose: 1 patch Melatonin (Melatonin) 5 mg PO HS PRN PRN Reason: INSOMNIA Last Admin: 04/30/18 23:09 Dose: 5 mg Methocarbamol (Robaxin -) 500 mg PO Q12H PRN PRN Reason: MUSCLE SPASMS Last Admin: 05/01/18 05:56 Dose: 500 mg Methylprednisolone Sodium Succinate (Solu-Medrol -) 40 mg IVPUSH Q8H-IV [facility] Last Admin: 05/01/18 09:25 Dose: 40 mg Miscellaneous (Lidoderm Patch Removal) 1 each [facility] DAILY@2200 [facility] Last Admin: 04/30/18 23:10 Dose: 1 each Fluticasone/Salmeterol (Advair 100mcg/50mcg -) 1 puff IH BID [facility] Last Admin: 05/01/18 09:21 Dose: 1 puff - Objective Vital Signs: Vital Signs Temperature 97.5 F L 05/01/18 14:00 Pulse Rate 108 H 05/01/18 14:10 Respiratory Rate 20 05/01/18 14:10 Blood Pressure 133/70 05/01/18 14:10 O2 Sat by Pulse Oximetry (%) 93 L 05/01/18 09:00 Constitutional: Yes: Calm Eyes: Yes: Conjunctiva Clear HENT: Yes: Atraumatic Cardiovascular: Yes: S1, S2 Respiratory: Yes: CTA Bilaterally Gastrointestinal: Yes: Normal Bowel Sounds, Soft Genitourinary: Yes: WNL Musculoskeletal: Yes: WNL Edema: No Neurological: Yes: Confusion Labs: CBC, BMP 05/01/18 11:29 05/01/18 11:29 Problem List - Problems (1) Abscess Code(s): L02.91 - CUTANEOUS ABSCESS, UNSPECIFIED (2) ESRD (end stage renal disease) Code(s): N18.6 - END STAGE RENAL DISEASE Assessment/Plan Current Medications Generic Name Dose Route Start Last Admin Trade Name Freq PRN Reason Stop Dose Admin Albuterol Sulfate 2 puff 04/26/18 21:27 Ventolin Hfa Inhaler - IH Q6H PRN SHORT OF BREATH/WHEEZING Albuterol/Ipratropium 1 amp 04/25/18 19:15 05/01/18 08:05 Duoneb - NEB 1 amp Q6H PRN Administration SHORTNESS OF BREATH Alprazolam 1 mg 04/30/18 18:00 05/01/18 14:14 Xanax - PO 1 mg Q12H PRN Administration ANXIETY Benzocaine/Menthol 1 each 04/28/18 03:51 05/01/18 03:10 Cepacol Lozenge - MM 1 each PRN PRN Administration SORE THROAT Cyclobenzaprine HCl 10 mg 04/25/18 22:00 04/30/18 23:09 Flexeril - PO 10 mg HS [facility] Administration Gentamicin Sulfate 1 applic 04/26/18 22:00 05/01/18 09:27 Garamycin 0.1% Ointment - TP 1 applic BID [facility] Administration Guaifenesin/Codeine Phosphate 5 ml 04/30/18 18:19 05/01/18 10:45 Robitussin Ac - PO 5 ml TID PRN Administration COUGH Heparin Sodium (Porcine) 5,000 unit 04/25/18 22:00 05/01/18 09:21 Heparin - SQ 5,000 unit BID [facility] Administration Lidocaine 1 patch 04/26/18 10:00 05/01/18 09:25 Lidoderm Patch - TP 1 patch DAILY [facility] Administration Melatonin 5 mg 04/29/18 01:14 04/30/18 23:09 Melatonin PO 5 mg HS PRN Administration INSOMNIA Methocarbamol 500 mg 04/26/18 04:36 05/01/18 05:56 Robaxin - PO 500 mg Q12H PRN Administration MUSCLE SPASMS Methylprednisolone Sodium Succinate 40 mg 04/30/18 15:00 05/01/18 09:25 Solu-Medrol - IVPUSH 40 mg Q8H-IV [facility] Administration Miscellaneous 1 each 04/25/18 22:00 04/30/18 23:10 Lidoderm Patch Removal MC 1 each DAILY@2200 [facility] Administration Fluticasone/Salmeterol 1 puff 04/25/18 22:00 05/01/18 09:21 Advair 100mcg/50mcg - IH 1 puff BID [facility] Administration Impression 1. ESRD 2. arm abscess 3. chronic back pain 4. anemia 5. anxiety 6. hx of nsaid use 7. chf diastolic 8. possible complex renal cyst 9. HLD 10. nephrolithiasis 11. copd Plan - HD today - pt will need one more dose of Vanco, can get in HD on Saturday as outpt - discussed with family today - epogen for anemia - she has HD set up as outpt - will follow Dr Coe
[2018-05-01] MEDS: CYCLOBENZAPRINE HCL 10 MG TABLET (FP) PO SCH (22:31)
[2018-05-01] MEDS: MELATONIN 5 MG TABLETS PO PRN (22:31)
[2018-05-01] MEDS: LIDOCAINE PATCH REMOVAL MC SCH (22:35)
[2018-05-01] MEDS ORDERED: oxyCODONE HCL 5 MG TABLET PO ONE (23:26)
[2018-05-02] MEDS ORDERED: oxyCODONE HCL 5 MG TABLET PO ONE ×2 (00:15→09:00)
[2018-05-02] MEDS: guaiFENesin/CODEINE 5 ML UNIT-DOSE CUPS PO PRN (00:33)
[2018-05-02] MEDS ORDERED: oxyCODONE HCL 5 MG TABLET ONE (00:44)
[2018-05-02] MEDS: methylPREDNISolone NA SUCC 40 MG/1 ML VIAL IVPUSH SCH ×2 (02:03→10:53)
[2018-05-02] MEDS: ALPRAZolam 0.25 MG TABLET PO PRN ×2 (02:34→15:25)
[2018-05-02] MEDS: ALBUTEROL SO4 2.5/IPRATROPIUM 0.5 INH SOL 3 ML VIAL.NEB. NEB PRN ×2 (05:51→11:40)
[2018-05-02] MEDS: LIDOCAINE 5% TOPICAL PATCH TP SCH (09:15)
[2018-05-02] MEDS: FLUTICASONE/SALMETEROL 100 MCG/50 MCG DISKUS IH SCH (09:15)
[2018-05-02] MEDS: METHOCARBAMOL 500 MG TABLET PO PRN (09:48)
[2018-05-02] MEDS: HEPARIN NA (PORCINE) 5,000 UNITS/ML 1ML VIAL SQ SCH (09:48)
[2018-05-02] MEDS: GENTAMICIN SO4 0.1% TOPICAL OINTMENT 15 GM/TUBE TUBE TP SCH (11:43)
[2018-05-02] MEDS ORDERED: SODIUM CHLORIDE 250 ML IV PRN (11:56)
--- NOTE | 2018-05-02 11:56 | PN ---
Progress Note, Physician History of Present Illness: Pt seen and examined at bedside. She is awake and alert. She denies shortness of breath. - Current Medication List Current Medications: Active Medications Albuterol Sulfate (Ventolin Hfa Inhaler -) 2 puff IH Q6H PRN PRN Reason: SHORT OF BREATH/WHEEZING Albuterol/Ipratropium (Duoneb -) 1 amp NEB Q6H PRN PRN Reason: SHORTNESS OF BREATH Last Admin: 05/02/18 11:40 Dose: 1 amp Alprazolam (Xanax -) 1 mg PO Q12H PRN PRN Reason: ANXIETY Last Admin: 05/02/18 02:34 Dose: 1 mg Benzocaine/Menthol (Cepacol Lozenge -) 1 each MM PRN PRN PRN Reason: SORE THROAT Last Admin: 05/01/18 03:10 Dose: 1 each Cyclobenzaprine HCl (Flexeril -) 10 mg PO HS [facility] Last Admin: 05/01/18 22:31 Dose: 10 mg Gentamicin Sulfate (Garamycin 0.1% Ointment -) 1 applic TP BID [facility] Last Admin: 05/02/18 11:43 Dose: 1 applic Guaifenesin/Codeine Phosphate (Robitussin Ac -) 5 ml PO TID PRN PRN Reason: COUGH Last Admin: 05/02/18 00:33 Dose: 5 ml Heparin Sodium (Porcine) (Heparin -) 5,000 unit SQ BID [facility] Last Admin: 05/02/18 09:48 Dose: 5,000 unit Lidocaine (Lidoderm Patch -) 1 patch TP DAILY [facility] Last Admin: 05/02/18 09:15 Dose: 1 patch Melatonin (Melatonin) 5 mg PO HS PRN PRN Reason: INSOMNIA Last Admin: 05/01/18 22:31 Dose: 5 mg Methocarbamol (Robaxin -) 500 mg PO Q12H PRN PRN Reason: MUSCLE SPASMS Last Admin: 05/02/18 09:48 Dose: 500 mg Methylprednisolone Sodium Succinate (Solu-Medrol -) 40 mg IVPUSH Q8H-IV [facility] Last Admin: 05/02/18 10:53 Dose: 40 mg Miscellaneous (Lidoderm Patch Removal) 1 each MC DAILY@2200 [facility] Last Admin: 05/01/18 22:35 Dose: 1 each Fluticasone/Salmeterol (Advair 100mcg/50mcg -) 1 puff IH BID [facility] Last Admin: 05/02/18 09:15 Dose: 1 puff - Objective Vital Signs: Vital Signs Temperature 107 F H 05/02/18 06:00 Pulse Rate 107 H 05/02/18 06:00 Respiratory Rate 20 05/02/18 09:00 Blood Pressure 127/83 05/02/18 06:00 O2 Sat by Pulse Oximetry (%) 96 05/02/18 09:00 Constitutional: Yes: Calm Eyes: Yes: Conjunctiva Clear HENT: Yes: Atraumatic Cardiovascular: Yes: S1, S2 Respiratory: Yes: CTA Bilaterally Gastrointestinal: Yes: Soft Musculoskeletal: Yes: WNL Edema: No Neurological: Yes: Oriented Labs: CBC, BMP 05/01/18 11:29 05/01/18 11:29 Problem List - Problems (1) Abscess Code(s): L02.91 - CUTANEOUS ABSCESS, UNSPECIFIED (2) ESRD (end stage renal disease) Code(s): N18.6 - END STAGE RENAL DISEASE Assessment/Plan Current Medications Generic Name Dose Route Start Last Admin Trade Name Freq PRN Reason Stop Dose Admin Albuterol Sulfate 2 puff 04/26/18 21:27 Ventolin Hfa Inhaler - IH Q6H PRN SHORT OF BREATH/WHEEZING Albuterol/Ipratropium 1 amp 04/25/18 19:15 05/02/18 11:40 Duoneb - NEB 1 amp Q6H PRN Administration SHORTNESS OF BREATH Alprazolam 1 mg 04/30/18 18:00 05/02/18 02:34 Xanax - PO 1 mg Q12H PRN Administration ANXIETY Benzocaine/Menthol 1 each 04/28/18 03:51 05/01/18 03:10 Cepacol Lozenge - MM 1 each PRN PRN Administration SORE THROAT Cyclobenzaprine HCl 10 mg 04/25/18 22:00 05/01/18 22:31 Flexeril - PO 10 mg HS [facility] Administration Gentamicin Sulfate 1 applic 04/26/18 22:00 05/02/18 11:43 Garamycin 0.1% Ointment - TP 1 applic BID [facility] Administration Guaifenesin/Codeine Phosphate 5 ml 04/30/18 18:19 05/02/18 00:33 Robitussin Ac - PO 5 ml TID PRN Administration COUGH Heparin Sodium (Porcine) 5,000 unit 04/25/18 22:00 05/02/18 09:48 Heparin - SQ 5,000 unit BID [facility] Administration Lidocaine 1 patch 04/26/18 10:00 05/02/18 09:15 Lidoderm Patch - TP 1 patch DAILY [facility] Administration Melatonin 5 mg 04/29/18 01:14 05/01/18 22:31 Melatonin PO 5 mg HS PRN Administration INSOMNIA Methocarbamol 500 mg 04/26/18 04:36 05/02/18 09:48 Robaxin - PO 500 mg Q12H PRN Administration MUSCLE SPASMS Methylprednisolone Sodium Succinate 40 mg 04/30/18 15:00 05/02/18 10:53 Solu-Medrol - IVPUSH 40 mg Q8H-IV [facility] Administration Miscellaneous 1 each 04/25/18 22:00 05/01/18 22:35 Lidoderm Patch Removal MC 1 each DAILY@2200 [facility] Administration Fluticasone/Salmeterol 1 puff 04/25/18 22:00 05/02/18 09:15 Advair 100mcg/50mcg - IH 1 puff BID [facility] Administration Impression 1. ESRD 2. arm abscess 3. chronic back pain 4. anemia 5. anxiety 6. hx of nsaid use 7. chf diastolic 8. possible complex renal cyst 9. HLD 10. nephrolithiasis 11. copd Plan - pt being discharged today - HD set up as outpt - needs one more dose of vanco with HD - discussed plan with family - will follow Dr Coe
[2018-05-02] MEDS ORDERED: oxyCODONE HCL 5 MG TABLET PO PRN (12:03)
--- NOTE | 2018-05-02 13:42 | DS ---
Physical Examination Vital Signs: Vital Signs Temperature 107 F H 05/02/18 06:00 Pulse Rate 107 H 05/02/18 06:00 Respiratory Rate 20 05/02/18 09:00 Blood Pressure 127/83 05/02/18 06:00 O2 Sat by Pulse Oximetry (%) 96 05/02/18 09:00 Findings/Remarks: Jo Matamoros is a 62 year old female with a significant PMH of anemia, anxiety, asthma, COPD, depression, kidney stones, hypertension, hypercholesterolemia, and hypothyroidism who presents to the emergency department with right arm pain for several days. She states that she was recently seen in the ED for similar complaint by which she had an abscess that was drained . was given Bactrim po. Had dialysis treatment yesterday. pt reports having chills at home, no temp checked at home, Constitutional: Yes: Well Nourished, No Distress, Calm Cardiovascular: Yes: Regular Rate and Rhythm Respiratory: Yes: Regular Gastrointestinal: Yes: Normal Bowel Sounds, Soft Musculoskeletal: Yes: Muscle Weakness Peripheral Pulses WNL: Yes Neurological: Yes: Alert, Pre-Existing Deficit Psychiatric: Yes: Alert, Agitated Labs: CBC, BMP 05/01/18 11:29 05/01/18 11:29 Discharge Summary Reason For Visit: CELLULITIS Current Active Problems Abscess (Acute) Cellulitis (Acute) ESRD (end stage renal disease) on dialysis (Acute) Hospital Course: Laboratory Last Values WBC 6.1 K/mm3 (4.0-10.0) 05/01/18 11:29 RBC 2.69 M/mm3 (3.60-5.2) L 05/01/18 11:29 Hgb 8.3 GM/dL (10.7-15.3) L 05/01/18 11:29 Hct 24.4 % (32.4-45.2) L 05/01/18 11:29 MCV 90.5 fl (80-96) 05/01/18 11:29 MCH 30.8 pg (25.7-33.7) 05/01/18 11: MCHC 34.0 g/dl (32.0-36.0) 05/01/18 11:29 RDW 17.7 % (11.6-15.6) H 05/01/18 11:29 Plt Count 354 K/MM3 (134-434) 05/01/18 11:29 MPV 7.8 fl (7.5-11.1) 05/01/18 11:29 Absolute Neuts (auto) 4.3 K/mm3 (1.5-8.0) 04/28/18 13:30 Neutrophils % 62.0 % (42.8-82.8) D 04/28/18 13:30 Lymphocytes % 18.7 % (8-40) D 04/28/18 13:30 Monocytes % 12.1 % (3.8-10.2) H D 04/28/18 13:30 Eosinophils % 6.3 % (0-4.5) H D 04/28/18 13:30 Basophils % 0.9 % (0-2.0) 04/28/18 13:30 Nucleated RBC % 0 % (0-0) 04/28/18 13:30 Sodium 134 mmol/L (136-145) L 05/01/18 11:29 Potassium 4.1 mmol/L (3.5-5.1) 05/01/18 11:29 Chloride 99 mmol/L (98-107) 05/01/18 11:29 Carbon Dioxide 21 mmol/L (21-32) 05/01/18 11:29 Anion Gap 13 MMOL/L (8-16) 05/01/18 11:29 BUN 81 mg/dL (7-18) H 05/01/18 11:29 Creatinine 5.4 mg/dL (0.55-1.3) H 05/01/18 11:29 Creat Clearance w eGFR 8.05 (>60) 05/01/18 11:29 Random Glucose 137 mg/dL (74-106) H 05/01/18 11:29 Calcium 8.4 mg/dL (8.5-10.1) L 05/01/18 11:29 Total Bilirubin 0.6 mg/dL (0.2-1) 04/28/18 13:30 AST 14 U/L (15-37) L 04/28/18 13:30 ALT 17 U/L (13-61) 04/28/18 13:30 Alkaline Phosphatase 245 U/L (45-117) H 04/28/18 13:30 Total Protein 6.4 g/dl (6.4-8.2) 04/28/18 13:30 Albumin 2.8 g/dl (3.4-5.0) L 04/28/18 13:30 Urine Color Straw 04/30/18 23:45 Urine Appearance Clear 04/30/18 23:45 Urine pH 8.0 (5.0-8.0) D 04/30/18 23:45 Ur Specific [place] 1.008 (1.010-1.035) L 04/30/18 23:45 Urine Protein 2+ (NEGATIVE) H 04/30/18 23:45 Urine Glucose (UA) 2+ (NEGATIVE) H 04/30/18 23:45 Urine Ketones Negative (NEGATIVE) 04/30/18 23:45 Urine Blood Negative (NEGATIVE) 04/30/18 23:45 Urine Nitrite Negative (NEGATIVE) 04/30/18 23:45 Urine Bilirubin Negative (<2.0 mg/dL) 04/30/18 23:45 Urine Urobilinogen Negative mg/dL (0.2-1.0) 04/30/18 23:45 Ur Leukocyte Esterase Negative (NEGATIVE) 04/30/18 23:45 Urine WBC (Auto) 3 /hpf (3-5) 04/30/18 23:45 Urine RBC (Auto) None /hpf (0-3) 04/30/18 23:45 Ur Epithelial Cells Rare /HPF (FEW) 04/30/18 23:45 Random Vancomycin 12.2 ug/ml (18-26) L 04/26/18 15:00 Hepatitis A Ab Total Negative (Negative) 04/26/18 11:00 Hep Bs Antigen Negative (Negative) 04/26/18 11:00 Hep Bs Antibody Non reactive (.) 04/26/18 11:00 Hep B Core Total Ab Negative (Negative) 04/26/18 11:00 Hep C Ab Diagnostic <0.1 s/co ratio (0.0-0.9) 04/26/18 11:00 Blood Type A POSITIVE 04/26/18 11:00 Antibody Screen Negative 04/26/18 11:00 Crossmatch See Detail 04/26/18 11:00 Microbiology 04/30/18 23:45 Urine - Urine Clean Catch Urine Culture - Final 04/25/18 16:10 Blood - Peripheral Venous Blood Culture - Final NO GROWTH AFTER 5 DAYS INCUBATION 04/25/18 16:39 Blood - Peripheral Venous Blood Culture - Final NO GROWTH AFTER 5 DAYS INCUBATION Condition: Stable - Instructions Diet, Activity, Other Instructions: 1 more dose of iv vancomycin with HD prednisone 40mg po daily for 4 days for cough PET scan as outpatient to evaluate left pleural apical region nodule Disposition: SNF FACILITY - Home Medications Comprehensive Discharge Medication List: Ambulatory Orders Ibuprofen [Motrin -] 400 mg PO QID PRN #28 tablet 02/23/18 Methocarbamol [Robaxin -] 500 mg PO BID PRN #14 tablet 02/23/18 Lidocaine 5% Patch [Lidoderm -] 1 patch TP DAILY #7 patch 03/02/18 Albuterol 2.5/Ipratropium 0.5 [Duoneb -] 1 amp NEB Q6H PRN amp 03/14/18 Salmeterol/Fluticasone [Advair 100Mcg/50Mcg -] 1 puff IH BID inhaler 03/14/18 Sulfamethoxazole/Trimethoprim [Bactrim Ds -] 1 tab PO BID #14 tablet 04/18/18 Albuterol Sulfate Inhaler - [Ventolin HFA Inhaler -] 2 puff IH QID PRN 04/26/18 Guaifenesin AC [Robitussin AC -] 5 ml PO TID PRN #60 liquid MDD 15 ml 04/29/18 Melatonin 5 mg PO HS PRN tab 04/29/18 predniSONE [Deltasone -] 40 mg PO DAILY #10 tablet MDD 2 04/29/18
[2018-05-02 15:17] VITALS: BP 142/83; PULSE 116; TEMP 98.8
[2018-05-03] MEDS ORDERED: HEPARIN NA (PORCINE) 5,000 UNITS/ML 1ML VIAL IVPUSH ONE (11:56)
[2018-05-03] MEDS ORDERED: EPOETIN ALFA 2,000 UNIT/1 ML VIAL IVPUSH ONE (11:56)
[2018-05-03] MEDS ORDERED: VANCOMYCIN 1 GM PREMIX - 200 ML IVPB ONE (11:56)
== END 2018-05-02 15:37 | DRG 140 ==
LOC: JER 13:28 → JERBED 16:35 → J7W 04-26 00:29
PROVIDERS: ADMIT Internal Medicine; ATTEND Family Medicine
PROC: 5A1D70Z Performance of Urinary Filtration, Intermittent, Less than 6 Hours Per Day (ICD-10-PCS; principal; 2018-04-26)
DX: J44.1 Chronic obstructive pulmonary disease with (acute) exacerbation (principal); I13.2 Hypertensive heart and chronic kidney disease with heart failure and with stage 5 chronic kidney disease, or end stage renal disease; I50.32 Chronic diastolic (congestive) heart failure; N18.6 End stage renal disease; N28.1 Cyst of kidney, acquired; N20.0 Calculus of kidney; B95.62 Methicillin resistant Staphylococcus aureus infection as the cause of diseases classified elsewhere; L02.411 Cutaneous abscess of right axilla; D63.1 Anemia in chronic kidney disease; Z99.2 Dependence on renal dialysis; E78.5 Hyperlipidemia, unspecified; F17.210 Nicotine dependence, cigarettes, uncomplicated; E03.9 Hypothyroidism, unspecified; F32.9 Major depressive disorder, single episode, unspecified; M54.9 Dorsalgia, unspecified; D64.9 Anemia, unspecified; Z96.643 Presence of artificial hip joint, bilateral; M54.5 Low back pain; F12.10 Cannabis abuse, uncomplicated; M51.36 Other intervertebral disc degeneration, lumbar region; F41.8 Other specified anxiety disorders; G47.00 Insomnia, unspecified
CPT/HCPCS: 36415; 36430; 36511; 71045-TC-FY; 80048; 80053; 81003; 81015; 85025; 85027; 86704; 86706; 86708; 86803; 86850; 86900; 86901; 86922; 87040; 87086; 87340; 93971; 94640; 97116-GP; 97161-GP; 99284-25; G0480; J0131; J0885; J1644; P9038; P9058

== ENCOUNTER 2018-05-02 18:26 | Inpatient (IN) | payer OTHER ==
--- NOTE | 2018-05-02 18:36 | PDOC ---
Rapid Medical Evaluation Time Seen by Provider: 05/02/18 18:32 Medical Evaluation: Allergies Allergy/AdvReac Type Severity Reaction Status Date / Time levofloxacin [From Levaquin] Allergy Mild Itching Verified 03/12/18 18:36 05/02/18 18:32 Pt c/o: left [facility] after verbal dispute with staff. Pt states was sent back to [facility] for eval of severe back pain, on HD, last hd 05/01. Pt on brief exam: vss Pt ordered for: none Pt to proceed to the ED Discharge Disposition - Diagnosis Chronic low back pain - Referrals - Patient Instructions - Post Discharge Activity
[2018-05-02 18:38] VITALS: BMI 22.4
--- NOTE | 2018-05-02 23:32 | PDOC ---
History of Present Illness - General Chief Complaint: Pain, Acute Stated Complaint: PAIN Time Seen by Provider: 05/02/18 18:32 - History of Present Illness Initial Comments: 05/03/18 00:14 The patient is a 63 year old female with a history of HTN, HLD, CAD, COPD, Kidney stones, Chronic back pain who presents for evaluation of cough and shortness of breath. The patient was recently discharged from the hospital today after being treated for a right arm abscess and sent to [facility]. Per the [facility], the patient arrived and was informed that she could not smoke at the [facility] nor leave to go smoke and the patient refused admission and requested to be sent back to the hospital for proper placement. The patient currently complains of worsening shortness of breath and non- productive cough. She otherwise denies fevers, chills, chest pain, nausea, vomiting, or changes with urination or bowel movements. Past History - Past Medical History Allergies/Adverse Reactions: Allergies Allergy/AdvReac Type Severity Reaction Status Date / Time levofloxacin [From Levaquin] Allergy Mild Itching Verified 05/02/18 18:38 Home Medications: Ambulatory Orders Ibuprofen [Motrin -] 400 mg PO QID PRN #28 tablet 02/23/18 Methocarbamol [Robaxin -] 500 mg PO BID PRN #14 tablet 02/23/18 Lidocaine 5% Patch [Lidoderm -] 1 patch TP DAILY #7 patch 03/02/18 Albuterol 2.5/Ipratropium 0.5 [Duoneb -] 1 amp NEB Q6H PRN amp 03/14/18 Salmeterol/Fluticasone [Advair 100Mcg/50Mcg -] 1 puff IH BID inhaler 03/14/18 Sulfamethoxazole/Trimethoprim [Bactrim Ds -] 1 tab PO BID #14 tablet 04/18/18 Albuterol Sulfate Inhaler - [Ventolin HFA Inhaler -] 2 puff IH QID PRN 04/26/18 Guaifenesin AC [Robitussin AC -] 5 ml PO TID PRN #60 liquid MDD 15 ml 04/29/18 Melatonin 5 mg PO HS PRN tab 04/29/18 predniSONE [Deltasone -] 40 mg PO DAILY #10 tablet MDD 2 04/29/18 Anemia: Yes Asthma: Yes Cancer: No Cardiac Disorders: Yes CVA: No COPD: Yes CHF: No DVT: No Dementia: No Diabetes: No GI Disorders: Yes (bleeding ulcer) Disorders: Yes (KIDNEY STONE;) HTN: Yes Hypercholesterolemia: Yes Kidney Stones: Yes Liver Disease: No Psychiatric Problems: Yes (ANXIETY, DEPRESSION) Seizures: No Thyroid Disease: Yes (hypothyroid) - Surgical History Abdominal Surgery: No Appendectomy: No Cardiac Surgery: No Cholecystectomy: No Lung Surgery: No Neurologic Surgery: No Orthopedic Surgery: Yes (B/L hip replacement (rt 2009; left 2012)) - Immunization History Td Vaccination: Yes TDAP Vaccination: No Immunization Up to Date: Yes - Suicide/Smoking/Psychosocial Hx Smoking Status: Yes Smoking History: Current every day smoker Years of Tobacco Use: 30 Have you smoked in the past 12 months: No Number of Cigarettes Smoked Daily: 6 If you are a former smoker, when did you quit?: refused booklet 07/21/14 Cigars Per Day: 0 Information on smoking cessation initiated: No 'Breaking Loose' booklet given: 03/08/18 Hx Alcohol Use: No Drug/Substance Use Hx: No Substance Use Type: None Hx Substance Use Treatment: Yes Review of Systems - Review of Systems Comments:: 05/03/18 00:17 Constitutional: No fevers, chills, fatigue, malaise HEENT: No Rhinorrhea, nasal congestion, visual changes Cardiovascular: No chest pain, syncope, palpitations, lightheadedness Respiratory: SOB, Cough. No Hemoptysis, Gastrointestinal: No Nausea, Vomiting, Constipation, Diarrhea, Melena Genitourinary: No Dysuria, Frequency, Urgency, Hesitancy, Hematuria, Flank pain Musculoskeletal: Back pain. No Myalgia, arthralgia Skin: No rashes, itching, bruising, pallor Neurologic: No Headache, Dizziness, Numbness, Weakness, or Tingling Psychiatric: No Hallucinations. No SI or HI *Physical Exam - Vital Signs Last Vital Signs Temp Pulse Resp BP Pulse Ox 98.3 F 113 H 22 H 130/73 94 L 05/02/18 18:35 05/02/18 18:35 05/02/18 18:35 05/02/18 18:35 05/02/18 18:35 - Physical Exam Comments: 05/03/18 00:18 General Appearance: Nourished. No Apparent Distress HEENT: No Pharyngeal Erythema, Tonsillar Exudate, Tonsillar Erythema Neck: No Cervical Lymphadenopathy Respiratory/Chest: Course breath sound bilaterally with expiratory wheezing. Cardiovascular: Regular Rhythm, Regular Rate. No Murmur, Gallops, Rubs Gastrointestinal/Abdominal: Normal Bowel Sounds, Soft. No Guarding, Rebound, Tenderness Musculoskeletal: No CVA Tenderness Extremity: Normal Capillary Refill Integumentary: Normal Color, Dry, Warm Neurologic: Fully Oriented, Alert, Normal Mood/Affect, Normal Response, Moderate Sedation - Procedure Monitoring Vital Signs: Procedure Monitoring Vital Signs Temperature 98.3 F 05/02/18 18:35 Pulse Rate 113 H 05/02/18 18:35 Respiratory Rate 22 H 05/02/18 18:35 Blood Pressure 130/73 05/02/18 18:35 O2 Sat by Pulse Oximetry (%) 94 L 05/02/18 18:35 Medical Decision Making - Medical Decision Making 05/03/18 00:19 The patient is a 63 year old female with a history of HTN, HLD, CAD, COPD, Kidney stones, Chronic back pain who presents for evaluation of cough and shortness of breath. Given the patient's history and physical exam, we will obtain an ekg, and chest plain film. The patient had recent lab results 1 day ago and we do not believe further lab work up is needed at this time. We will treat with duonebs and decadron and continue to monitor and reassess while here in the ED. *DC/Admit/Observation/Transfer Diagnosis at time of Disposition: Chronic low back pain Qualifiers: Back pain laterality: unspecified Sciatica presence: unspecified whether sciatica present Qualified Code(s): M54.5 - Low back pain; G89.29 - Other chronic pain COPD (chronic obstructive pulmonary disease) Qualifiers: COPD type: unspecified COPD Qualified Code(s): J44.9 - Chronic obstructive pulmonary disease, unspecified - Discharge Dispostion Condition at time of disposition: Stable Decision to Admit order: Yes - Referrals Referrals: Lisette White MD [Primary Care Provider] - - Patient Instructions - Post Discharge Activity
[2018-05-02] MEDS ORDERED: DEXAMETHASONE SOD PHOSPHATE 10 MG/1 ML VIAL IM ONE (23:49)
[2018-05-02] MEDS ORDERED: ALBUTEROL SO4 2.5/IPRATROPIUM 0.5 INH SOL 3 ML VIAL.NEB. NEB ONE (23:49)
[2018-05-02] MEDS ORDERED: VARENICLINE TARTRATE 1 MG TAB PO ONE (23:50)
--- NOTE | 2018-05-02 23:57 | PDOC ---
Attending Attestation - HPI HPI: 05/02/18 23:57 The patient is a 63 year old female, with a significant PMH of anemia, anxiety, asthma, COPD, depression, kidney stones, hypertension, hypercholesterolemia, and hypothyroidism, who presents to the emergency department complaining of chronic back pain, non productive cough and shortness of breath. The patient states she was discharged from [facility] earlier today to a longterm. However, the patient states she was told to leave the longterm as she was out of district so she decided to come back to the ER. The patient denies chest pain, headache and dizziness. Denies fever, chills, nausea, vomit, diarrhea and constipation. Denies dysuria, frequency, urgency and hematuria. Allergies: levofloxacin Documentation prepared by Pillo Kwong, acting as medical claims examiner for Madisyn Thao MD. - Physicial Exam PE: 05/02/18 23:58 GENERAL: Awake, alert, and fully oriented, in no acute distress HEAD: No signs of trauma EYES: PERRLA, EOMI, sclera anicteric, conjunctiva clear ENT: Auricles normal inspection, hearing grossly normal, nares patent, oropharynx clear without exudates. Moist mucosa NECK: Normal ROM, supple, no lymphadenopathy, JVD, or masses LUNGS: (+) Coarse breath sounds bilaterally. HEART: (+) Tachycardia. Regular rhythm, normal S1 and S2, no murmurs, rubs or gallops ABDOMEN: Soft, nontender, normoactive bowel sounds. No guarding, no rebound. No masses EXTREMITIES: Normal range of motion, no edema. No clubbing or cyanosis. No cords, erythema, or tenderness NEUROLOGICAL: Cranial nerves II through XII grossly intact. Normal speech SKIN: Warm, Dry, normal turgor, no rashes or lesions noted. <Pillo Kwong - Last Filed: 05/02/18 23:57> - Resident Resident Name: Kevin Smith - ED Attending Attestation I have performed the following: I have examined & evaluated the patient, The case was reviewed & discussed with the resident, I agree w/resident's findings & plan - Medical Decision Making 05/04/18 06:10 Pt will be admitted, as she walked out of her longterm. She will be admitted , as we cannot send her back to the [place], she is refusing to go home. She also cannot be sent home at this time, as she states that she cannot walk up the stairs to her home. <Madisyn Thao - Last Filed: 05/04/18 06:12> Heart Score/ECG Review - ECG Intrepretation Rhythm: Regular Rhythm - [place]: Normal - P and [place] Prominent R with upright T in V1 (true posterior ID): No Delta Wave(s) Present: No WPW: No - QRS Poor R Wave Progression: No Q Wave Present: No - ST and T Early Repolarization: No Non Specific ST-T Wave changes: No Flattened T Waves: No Prolonged Q-T Interval: No <Madisyn Thao - Last Filed: 05/04/18 06:12>
[2018-05-03] MEDS ORDERED: ACETAMINOPHEN 500 MG TABLET (FP) PO ONE (02:09)
[2018-05-03] MEDS ORDERED: ALBUTEROL SO4 2.5/IPRATROPIUM 0.5 INH SOL 3 ML VIAL.NEB. NEB ONE ×2 (02:09→03:02)
[2018-05-03] MEDS ORDERED: LIDOCAINE 5% TOPICAL PATCH TP ONE (02:17)
[2018-05-03] MEDS ORDERED: KETOROLAC TROMETHAMINE 30 MG/1 ML VIAL IM ONE (02:17)
--- NOTE | 2018-05-03 02:22 | HP ---
CHIEF COMPLAINT: Sent back from NH/SOB PCP: Dr. White HISTORY OF PRESENT ILLNESS: Patient seen and examined; please refer to DCs for further information was just discharged earlier. She presents being [facility] after she was informed she was not allowed to smoke there; she told the ER she was SOB when she arrived. Is on a 5 day burst of prednisone for COPD exacerbation per pulmonary medicine. Seen here by Dr. Benavidez and Dr. Marie during last admit where they were recommended to be placed on LABA/LAMA/ICS with close followup for PET scan due to a L-apical pleural nodule seen on 12/2017 CT scan. She was scheduled to get an additional dose of vanco with HD (she sees Dr. Coe for Nephro when she is here). Please refer to recent DCs/etc. for further historical information as she was just discharged. Given nebs and decadron in the ER. Recent Travel: None PAST MEDICAL HISTORY: Reviewed; ESRD, HTN, Hypothyroidism, Arm abscess on vanco , tobacco abuse, COPD, Anemia, Asthma, D-CHF, CComplex renal cyst, L-pleural apical nodule, nephrolithiasis PAST SURGICAL HISTORY: Reviewed; as per chart Social History: Smoking: current smoker Alcohol: Denies Drugs: Denies Family History: Asked and noncontributory Allergies levofloxacin [From Levaquin] Allergy (Mild, Verified 05/02/18 18:38) Itching HOME MEDICATIONS: Home Medications Medication Instructions Recorded Ibuprofen [Motrin -] 400 mg PO QID PRN #28 tablet 02/23/18 Methocarbamol [Robaxin -] 500 mg PO BID PRN #14 tablet 02/23/18 Lidocaine 5% Patch [Lidoderm -] 1 patch TP DAILY #7 patch 03/02/18 Albuterol 2.5/Ipratropium 0.5 1 amp NEB Q6H PRN amp 03/14/18 [Duoneb -] Salmeterol/Fluticasone [Advair 1 puff IH BID inhaler 03/14/18 100Mcg/50Mcg -] Sulfamethoxazole/Trimethoprim 1 tab PO BID #14 tablet 04/18/18 [Bactrim Ds -] Albuterol Sulfate Inhaler - 2 puff IH QID PRN 04/26/18 [Ventolin HFA Inhaler -] Guaifenesin AC [Robitussin AC -] 5 ml PO TID PRN #60 liquid MDD 15 04/29/18 ml Melatonin 5 mg PO HS PRN tab 04/29/18 predniSONE [Deltasone -] 40 mg PO DAILY #10 tablet MDD 2 04/29/18 REVIEW OF SYSTEMS 10 sys ROS done and negative aside from HPI PHYSICAL EXAMINATION Vital Signs - 24 hr 05/02/18 05/03/18 18:35 01:32 Temperature 98.3 F 98.0 F Pulse Rate 113 H Pulse Rate [ 107 H Right Radial] Respiratory 22 H Rate Blood Pressure 130/73 Blood Pressure 150/76 [Left Arm] O2 Sat by Pulse 94 L 94 L Oximetry (%) GENERAL: Awake, alert, and fully oriented, in no acute distress. HEAD: Normal with no signs of trauma. EYES: Pupils equal, round and reactive to light, extraocular movements intact EARS, NOSE, THROAT: Ears normal, nares patent, oropharynx clear without exudates. Moist mucous membranes. NECK: Normal range of motion, supple without lymphadenopathy, JVD, or masses. LUNGS: Breath sounds equal, scattered mild wheezes with somewhat prolonged expiratory phase HEART: Regular rate and rhythm, normal S1 and S2 without murmur, rub or gallop. ABDOMEN: Soft, nontender, not distended, normoactive bowel sounds MUSCULOSKELETAL: Normal range of motion at all joints NEUROLOGICAL: Cranial nerves II-XII intact. Normal speech. Normal gait. PSYCHIATRIC: Cooperative. Good eye contact. Appropriate mood and affect. SKIN: Warm, dry, normal turgor, no rashes or lesions noted, normal capillary refill. CXR pending Labs pending; were not repeated in ER as recent labs on 05/01 ASSESSMENT/PLAN: Patient [place] back from [place] after being told they cannot smoke there complaining of SOB 1) Acute SOB -Saturating well on RA; monitoring -Was seen by pulm last admit -Continue symbicort, duonebsx1 day then back to handheld, with PRN albuterol nebs. Increased prednisone from 40 to 60; can complete the burst. As she is known to the service will have pulmonary clear her. -She should stop abusing tobacco 2) Sinus Tachycardia -Monitor on telemetry overnight; can likely DC in AM. Checking K and Mg. Checking EKG. Could be from albuterol. -Low suspicion for PE 3) Social Issues -Please see ER documentation for further information on issues with NH -Needs to see case management/social work in the AM 4) ESRD on HD -Consulting nephro to see her for dialysis -Monitor K, Mg, BMP 5) Arm abscess -1x more dose vancomycin with HD -Consulting pharmacy for dosing; can coordinate with nephrology 6) Tobacco abuse -Counseled to quit 7) D-CHF -Checking BNP but this will be very unreliable given ESRD -Fluid removal with HD; on RA. Continue home meds once entered 8) Anxiety -Continue home meds 9) L-pleural Apical Nodule -Per pulmonary she needs a PET scan SHOSHANA 10) Hx Nephrolithiasis -No current sx FENA -PO fluids -BMP Mg Phos monitor -Renal Diet -As tolerated Full Code
[2018-05-03] MEDS ORDERED: ALBUTEROL SO4 8 GM HFA INHALER IH PRN (04:47)
[2018-05-03] MEDS ORDERED: ALBUTEROL SO4 2.5/IPRATROPIUM 0.5 INH SOL 3 ML VIAL.NEB. NEB PRN (04:47)
[2018-05-03] MEDS: IBUPROFEN 400 MG TABLET (FP) PO PRN ×2 (06:03→23:08)
[2018-05-03] MEDS: MELATONIN 5 MG TABLETS PO PRN ×2 (06:03→20:55)
[2018-05-03] MEDS: guaiFENesin/CODEINE 5 ML UNIT-DOSE CUPS PO PRN ×2 (06:09→20:56)
[2018-05-03] MEDS: METHOCARBAMOL 500 MG TABLET PO PRN ×2 (06:09→20:56)
[2018-05-03] MEDS ORDERED: ALBUTEROL SO4 2.5/IPRATROPIUM 0.5 INH SOL 3 ML VIAL.NEB. NEB SCH (07:00)
--- NOTE | 2018-05-03 08:37 | EKG ---
Test Reason : Blood Pressure : / mmHG Vent. Rate : 109 BPM Atrial Rate : 109 BPM P-R Int : 164 ms QRS Dur : 080 ms QT Int : 338 ms P-R-T Axes : 042 -04 038 degrees QTc Int : 455 ms SINUS TACHYCARDIA OTHERWISE NORMAL ECG WHEN COMPARED WITH ECG OF 13-MAR-2018 15:38, NONSPECIFIC T WAVE ABNORMALITY NO LONGER EVIDENT IN ANTEROLATERAL LEADS Confirmed by JOÃO BURGESS, MAXX ([id number]) on 05/03/2018 8:37:28 AM Referred By: Confirmed By:MAXX MOYER MD
[2018-05-03] MEDS ORDERED: FLUTICASONE/SALMETEROL 100 MCG/50 MCG DISKUS IH SCH (10:00)
[2018-05-03] MEDS ORDERED: LIDOCAINE 5% TOPICAL PATCH TP SCH (10:00)
[2018-05-03] MEDS: HEPARIN NA (PORCINE) 5,000 UNITS/ML 1ML VIAL SQ SCH ×2 (12:08→22:00)
[2018-05-03] MEDS: predniSONE 20 MG TABLET (UD) PO SCH (12:08)
[2018-05-03] MEDS: LIDOCAINE 5% TOPICAL PATCH TP SCH (12:08)
[2018-05-03] MEDS ORDERED: ACETAMINOPHEN 1000 MG/100 ML VIAL (NON FORMULARY) IVPB ONE (12:38)
--- NOTE | 2018-05-03 13:07 | PN ---
Progress Note, Physician - Current Medication List Current Medications: Active Medications Albuterol Sulfate (Ventolin 0.083% Nebulizer Soln -) 1 amp NEB Q8H PRN PRN Reason: SHORT OF BREATH/WHEEZING Albuterol/Ipratropium (Duoneb -) 1 amp NEB RQID [facility] Guaifenesin/Codeine Phosphate (Robitussin Ac -) 5 ml PO Q8H PRN PRN Reason: COUGH Last Admin: 05/03/18 06:09 Dose: 5 ml Heparin Sodium (Porcine) (Heparin -) 5,000 unit SQ BID [facility] Last Admin: 05/03/18 12:08 Dose: 5,000 unit Ibuprofen (Motrin -) 400 mg PO Q6H PRN PRN Reason: PAIN LEVEL 6-10 Last Admin: 05/03/18 06:03 Dose: 400 mg Lidocaine (Lidoderm Patch -) 1 patch TP DAILY [facility] Last Admin: 05/03/18 12:08 Dose: 1 patch Melatonin (Melatonin) 5 mg PO HS PRN PRN Reason: INSOMNIA Last Admin: 05/03/18 06:03 Dose: 5 mg Methocarbamol (Robaxin -) 500 mg PO Q12H PRN PRN Reason: MUSCLE SPASMS Last Admin: 05/03/18 06:09 Dose: 500 mg Miscellaneous (Lidoderm Patch Removal) 1 each DAILY@2200 [facility] Prednisone (Deltasone -) 60 mg PO DAILY [facility] Last Admin: 05/03/18 12:08 Dose: 60 mg Fluticasone/Salmeterol (Advair 100mcg/50mcg -) 1 puff IH BID [facility] Last Admin: 05/03/18 12:09 Dose: Not Given - Objective Vital Signs: Vital Signs Temperature 97.5 F L 05/03/18 10:00 Pulse Rate 102 H 05/03/18 10:00 Respiratory Rate 18 05/03/18 10:00 Blood Pressure 114/57 L 05/03/18 10:00 O2 Sat by Pulse Oximetry (%) 95 05/03/18 06:40 Problem List - Problems (1) COPD (chronic obstructive pulmonary disease) Assessment/Plan: -Saturating well on RA; monitoring -Was seen by pulm last admit -Continue symbicort, -duonebs. -prednisone from 60 -She should stop abusing tobacco -Pulm consult Code(s): J44.9 - CHRONIC OBSTRUCTIVE PULMONARY DISEASE, UNSPECIFIED Qualifiers: COPD type: unspecified COPD Qualified Code(s): J44.9 - Chronic obstructive pulmonary disease, unspecified (2) Chronic low back pain Code(s): M54.5 - LOW BACK PAIN; G89.29 - OTHER CHRONIC PAIN Qualifiers: Back pain laterality: unspecified Sciatica presence: unspecified whether sciatica present Qualified Code(s): M54.5 - Low back pain; G89.29 - Other chronic pain (3) ESRD (end stage renal disease) on dialysis Assessment/Plan: -Consulting nephro to see her for dialysis -Monitor K, Mg, BMP Code(s): N18.6 - END STAGE RENAL DISEASE; Z99.2 - DEPENDENCE ON RENAL DIALYSIS (4) Discharge planning issues Assessment/Plan: - Social Issues -Please see ER documentation for further information on issues with NH -Needs to see case management/social work in the AM -Psych Code(s): Z02.9 - ENCOUNTER FOR ADMINISTRATIVE EXAMINATIONS, UNSPECIFIED (5) Abscess Assessment/Plan: -Arm abscess -1x more dose vancomycin with HD Code(s): L02.91 - CUTANEOUS ABSCESS, UNSPECIFIED (6) Lung nodule Assessment/Plan: -Per pulmonary she needs a PET scan Outpatient Code(s): R91.1 - SOLITARY PULMONARY NODULE
--- NOTE | 2018-05-03 13:29 | CON.PSY ---
Psychiatry Consult Chief Complaint: Patient refused admission to a Home because t5hey refused to Have her smoke. - Previous Psychiatric Treatment Outpatient: None Inpatient: None - Previous Substance Abuse Treatment Outpatient: None Inpatient: None - Current Medications Current Medications: Active Medications Albuterol Sulfate (Ventolin 0.083% Nebulizer Soln -) 1 amp NEB Q8H PRN PRN Reason: SHORT OF BREATH/WHEEZING Albuterol/Ipratropium (Duoneb -) 1 amp NEB RQID [facility] Guaifenesin/Codeine Phosphate (Robitussin Ac -) 5 ml PO Q8H PRN PRN Reason: COUGH Last Admin: 05/03/18 06:09 Dose: 5 ml Heparin Sodium (Porcine) (Heparin -) 5,000 unit SQ BID [facility] Last Admin: 05/03/18 12:08 Dose: 5,000 unit Ibuprofen (Motrin -) 400 mg PO Q6H PRN PRN Reason: PAIN LEVEL 6-10 Last Admin: 05/03/18 06:03 Dose: 400 mg Lidocaine (Lidoderm Patch -) 1 patch TP DAILY [facility] Last Admin: 05/03/18 12:08 Dose: 1 patch Melatonin (Melatonin) 5 mg PO HS PRN PRN Reason: INSOMNIA Last Admin: 05/03/18 06:03 Dose: 5 mg Methocarbamol (Robaxin -) 500 mg PO Q12H PRN PRN Reason: MUSCLE SPASMS Last Admin: 05/03/18 06:09 Dose: 500 mg Miscellaneous (Lidoderm Patch Removal) 1 each MC DAILY@2200 [facility] Prednisone (Deltasone -) 60 mg PO DAILY [facility] Last Admin: 05/03/18 12:08 Dose: 60 mg Fluticasone/Salmeterol (Advair 100mcg/50mcg -) 1 puff IH BID [facility] Last Admin: 05/03/18 12:09 Dose: Not Given - Allergies Allergies: Allergies Allergy/AdvReac Type Severity Reaction Status Date / Time levofloxacin [From Levaquin] Allergy Mild Itching Verified 05/02/18 18:38 - Current Living Status Usual Living Arrangement: Alone - Current Mental Status Evaluation Appearance: Well Groomed Attitude: Cooperative - Affect Affect: Full Range Appropriateness: Appropriate to Content - Mood Mood: Euthymic - Speech/Language Expressive: Coherent - Psychomotor Activity Psychomotor Activity: Normal - Thought Process Thought Process: Intact - Thought Content Hallucinations: Absent Delusions: Absent - Self Perception Self Perception: No Impairment - Cognition Attention: Alert Orientation: Time Memory, Immediate Recall: Intact Memory, Short Term: 3/3 Memory, Remote with Promptin/3 - Concentration Serial Sevens Intact: No Simple Calculations Intact: No - Abstraction Proverb Interpretation: Intact Judgement: Intact - Insight Insight: Intact - Impulse Control Impulse Control: Good Control - Suicidal Ideation Suicidal Ideation: No - Homicidal Ideation Homicidal Ideation: No Assessment/Plan 1) No acute Mental illness.
--- NOTE | 2018-05-03 14:39 | CON.NEP ---
Consult Consult Specialty:: nephrology - History of Present Illness Chief Complaint: did not want ot stay at her rehab unit History of Present Illness: Pt has esrd, mrsa, htn, copd,pulmonary nodule etc. Was discharged and came back because she did not want to be at the rehab facility she went to. She needs hd today so nephrologuy is called. She has no new complaints though she is asking for percocet for back pain. 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 No: Pulmonary Embolus, Pulmonary Fibrosis, Sleep Apnea Gastrointestinal: Yes: Gastritis Renal/: Yes: Renal Inusuff, Hemodialysis ...LMP: 07/25/12 Infectious Disease: Yes: MRSA Psych: Yes: Anxiety, Depression Musculoskeletal: Yes: Chronic low back pain Endocrine: Yes: Hyperthyroidism - Past Surgical History Past Surgical History: Yes: AV Fistula/Graft, Joint Replacement (hip replacement ) - Alcohol/Substance Use Hx Alcohol Use: No History of Substance Use: reports: Marijuana - Smoking History Smoking history: Current every day smoker Have you smoked in the past 12 months: No Aproximately how many cigarettes per day: 6 If you are a former smoker, when did you quit?: refused booklet 07/21/14 - Social History Usual Living Arrangement: Alone ADL: Independent Occupation: not working, SSI History of Recent Travel: No Home Medications - Allergies Allergies/Adverse Reactions: Allergies Allergy/AdvReac Type Severity Reaction Status Date / Time levofloxacin [From Levaquin] Allergy Mild Itching Verified 05/02/18 18:38 - Home Medications Home Medications: Ambulatory Orders Ibuprofen [Motrin -] 400 mg PO QID PRN #28 tablet 02/23/18 Methocarbamol [Robaxin -] 500 mg PO BID PRN #14 tablet 02/23/18 Lidocaine 5% Patch [Lidoderm -] 1 patch TP DAILY #7 patch 03/02/18 Albuterol 2.5/Ipratropium 0.5 [Duoneb -] 1 amp NEB Q6H PRN amp 03/14/18 Salmeterol/Fluticasone [Advair 100Mcg/50Mcg -] 1 puff IH BID inhaler 03/14/18 Sulfamethoxazole/Trimethoprim [Bactrim Ds -] 1 tab PO BID #14 tablet 04/18/18 Albuterol Sulfate Inhaler - [Ventolin HFA Inhaler -] 2 puff IH QID PRN 04/26/18 Guaifenesin AC [Robitussin AC -] 5 ml PO TID PRN #60 liquid MDD 15 ml 04/29/18 Melatonin 5 mg PO HS PRN tab 04/29/18 predniSONE [Deltasone -] 40 mg PO DAILY #10 tablet MDD 2 04/29/18 Family Disease History - Family Disease History Family Disease History: Other: Father (alive), Mother (alive), Sister (alive), Son (23 yo old - alive - healthy) Review of Systems - Review of Systems Constitutional: reports: No Symptoms Eyes: reports: No Symptoms HENT: reports: No Symptoms Neck: reports: No Symptoms Cardiovascular: reports: No Symptoms Respiratory: reports: No Symptoms Gastrointestinal: reports: Abdominal Pain Genitourinary: reports: No Symptoms Musculoskeletal: reports: Back Pain Integumentary: reports: No Symptoms Neurological: reports: No Symptoms Endocrine: reports: No Symptoms Hematology/Lymphatic: reports: No Symptoms Psychiatric: reports: No Symptoms Nephrology Consult - Height Height: 5 ft 2 in - Weight Weight: 123 lb - BMI Body Mass Index (BMI): 22.4 - Physical Examination Vital Signs: Vital Signs Temperature 97 F L 05/03/18 13:43 Pulse Rate 106 H 05/03/18 13:43 Respiratory Rate 18 05/03/18 13:43 Blood Pressure 143/86 05/03/18 13:43 O2 Sat by Pulse Oximetry (%) 95 05/03/18 06:40 Constitutional: Yes: Well Nourished, No Distress, Calm Eyes: Yes: Conjunctiva Clear, EOM Intact HENT: Yes: Atraumatic, Normocephalic Neck: Yes: Supple, Trachea Midline Cardiovascular: Yes: Regular Rate and Rhythm Respiratory: Yes: Regular, CTA Bilaterally Gastrointestinal: Yes: Normal Bowel Sounds, Soft, Tenderness Renal/: Yes: WNL Access for Hemodialysis: AV Graft Extremities: Yes: WNL, Other (avg with thrill and bruit) Edema: No Wound/Incision: Yes: Well Approximated Neurological: Yes: Alert, Oriented Psychiatric: Yes: Alert, Oriented Assessment/Plan IMPRESSION ESRD HTN Chronic pain PLAN will make arrangements for hd later today can have blood drawn during hd MV
[2018-05-03] MEDS ORDERED: EPOETIN ALFA 10,000 UNIT/1 ML VIAL SQ ONE (14:45)
--- NOTE | 2018-05-03 16:07 | PN ---
Progress Note (short form) - Note Progress Note: PULMONARY CONSULTATION DICTATED 05/03/18 IMP COPD EXACERBATION LISA NODULE CHF ESRD ON HD HTN ARM ABSCESS BACK PAIN TOBACCO ABUSE PLAN PREDNISONE INHALED BRONCHODILATORS O2 ABX CHEST CT HD PER RENAL SMOKING CESSATION COUNSELED DR CHILDS Problem List - Problems (1) COPD (chronic obstructive pulmonary disease) Code(s): J44.9 - CHRONIC OBSTRUCTIVE PULMONARY DISEASE, UNSPECIFIED Qualifiers: COPD type: unspecified COPD Qualified Code(s): J44.9 - Chronic obstructive pulmonary disease, unspecified (2) Chronic low back pain Code(s): M54.5 - LOW BACK PAIN; G89.29 - OTHER CHRONIC PAIN Qualifiers: Back pain laterality: unspecified Sciatica presence: unspecified whether sciatica present Qualified Code(s): M54.5 - Low back pain; G89.29 - Other chronic pain (3) Abscess Code(s): L02.91 - CUTANEOUS ABSCESS, UNSPECIFIED (4) Anemia Code(s): D64.9 - ANEMIA, UNSPECIFIED (5) CKD (chronic kidney disease) Code(s): N18.9 - CHRONIC KIDNEY DISEASE, UNSPECIFIED (6) COPD with acute exacerbation Code(s): J44.1 - CHRONIC OBSTRUCTIVE PULMONARY DISEASE W (ACUTE) EXACERBATION (7) ESRD (end stage renal disease) on dialysis Code(s): N18.6 - END STAGE RENAL DISEASE; Z99.2 - DEPENDENCE ON RENAL DIALYSIS (8) Emphysema lung Code(s): J43.9 - EMPHYSEMA, UNSPECIFIED (9) Lung nodule Code(s): R91.1 - SOLITARY PULMONARY NODULE (10) Anemia Code(s): D64.9 - ANEMIA, UNSPECIFIED Qualifiers: Anemia type: due to chronic kidney disease Chronic kidney disease stage: stage 4 (severe) Qualified Code(s): N18.4 - Chronic kidney disease, stage 4 ( severe); D63.1 - Anemia in chronic kidney disease (11) CHF (congestive heart failure) Code(s): I50.9 - HEART FAILURE, UNSPECIFIED (12) Nicotine dependence Code(s): F17.200 - NICOTINE DEPENDENCE, UNSPECIFIED, UNCOMPLICATED Qualifiers: Nicotine product type: cigarettes Substance use status: uncomplicated Qualified Code(s): F17.210 - Nicotine dependence, cigarettes, uncomplicated
--- NOTE | 2018-05-03 16:33 | CONS ---
DATE OF CONSULTATION: 05/03/2018 REFERRING PHYSICIAN: Lisette White MD HISTORY: The patient is a 63-year-old female known to me from previous hospitalization with extensive past medical history of COPD, asthma, anemia, diastolic heart failure, chronic kidney disease on hemodialysis, hypertension, hypothyroidism, arm abscess on vancomycin, longstanding history of tobacco use, currently still smoking approximately 6-7 cigarettes a day, left apical nodule, nephrolithiasis admitted to [facility] with increasing shortness of breath. The patient was discharged on May 02. She went to the retirement and was sent back to [facility] as she was not able to smoke there. She also was complaining of increasing shortness of breath. The patient was admitted as above. Patient was discharged home on antibiotics as well as inhaled bronchodilators. The patient denies any chest pain, nausea, vomiting, or diaphoresis. PAST MEDICAL HISTORY: Again includes end-stage renal disease on hemodialysis, hypertension, hypothyroidism, COPD, tobacco abuse, anemia, diastolic heart failure, complex renal cyst, left apical pleural nodule. SOCIAL HISTORY: Positive smoker. No occupational exposures. CURRENT MEDICATIONS: Include Lidoderm, prednisone, Advair, heparin, Robitussin AC, albuterol, DuoNeb, Robaxin, Procrit, Motrin, and melatonin. REVIEW OF SYSTEMS: Positive for mild shortness of breath, positive cough. No chest pain, no palpitations, no fever, no chills, no hemoptysis, no abdominal pain. PHYSICAL EXAMINATION: General: The patient is a well-developed, well-nourished female awake and alert in no acute distress. Vital Signs: She is afebrile. Blood pressure 143/86, respiratory rate 18, O2 saturation 95% on room air. HEENT: Normocephalic and atraumatic. Neck: Supple. Heart: Regular with S1, S2. Chest: Scattered bilateral wheezes. Abdomen: Soft. Bowel sounds are positive. Extremities: No cyanosis or edema. LABORATORIES: Pending. On May 01: WBC 8.3, hemoglobin 24.4. Chemistries recent 81 BUN, creatinine 5.5. That was on May 01. Chest x-ray on May 03: Atelectasis at the bases, elevated left hemidiaphragm, mild congestion. Chest CT on January 18, 2018, emphysematous change, irregular pleural thickening, and nodularity in the left apex. IMPRESSION: 1. Chronic obstructive pulmonary disease, mild exacerbation. 2. End-stage renal disease on hemodialysis. 3. Hypertension. 4. Chronic pain. 5. Tobacco abuse. 6. Left apical nodule. PLAN: Prednisone, inhaled bronchodilators, supplemental O2, obtain follow up chest CT, PET scan as an outpatient, monitor peak flow. HD as per Renal Trey [id number] MTDD
[2018-05-03] MEDS: ACETAMINOPHEN 500 MG TABLET (FP) PO PRN (17:18)
[2018-05-03] MEDS: LIDOCAINE PATCH REMOVAL MC SCH (21:01)
[2018-05-03] MEDS: ALBUTEROL SO4 0.083% IH SOL 2.5 MG/3 ML VIAL.NEB. NEB PRN (22:10)
[2018-05-04] MEDS ORDERED: oxyCODONE HCL 5 MG TABLET PO ONE ×3 (00:53→22:32)
[2018-05-04] MEDS: ALBUTEROL SO4 0.083% IH SOL 2.5 MG/3 ML VIAL.NEB. NEB PRN ×2 (05:10→11:43)
[2018-05-04] MEDS: guaiFENesin/CODEINE 5 ML UNIT-DOSE CUPS PO PRN (08:19)
[2018-05-04] MEDS: ACETAMINOPHEN 500 MG TABLET (FP) PO PRN (08:19)
--- NOTE | 2018-05-04 08:40 | EKG ---
Test Reason : Blood Pressure : / mmHG Vent. Rate : 100 BPM Atrial Rate : 100 BPM P-R Int : 158 ms QRS Dur : 080 ms QT Int : 338 ms P-R-T Axes : 041 -06 039 degrees QTc Int : 436 ms NORMAL SINUS RHYTHM NORMAL ECG WHEN COMPARED WITH ECG OF 03-MAY-2018 01:23, NO SIGNIFICANT CHANGE WAS FOUND Confirmed by MAXX MOYER MD ([id number]) on 05/04/2018 8:40:18 AM Referred By: Swapna ARMIJO Confirmed By:MAXX MOYER MD
[2018-05-04] MEDS ORDERED: LIDOCAINE 2.5%/PRILOCAINE 2.5% (5 Gram/TUBE) TP PRN (09:20)
--- NOTE | 2018-05-04 09:20 | PN ---
Progress Note, Physician - Current Medication List Current Medications: Active Medications Acetaminophen (Tylenol -) 1,000 mg PO Q8H PRN PRN Reason: PAIN LEVEL 6-10 Last Admin: 05/04/18 08:19 Dose: 1,000 mg Albuterol Sulfate (Ventolin 0.083% Nebulizer Soln -) 1 amp NEB Q8H PRN PRN Reason: SHORT OF BREATH/WHEEZING Last Admin: 05/04/18 05:10 Dose: 1 amp Budesonide/Formoterol Fumarate (Symbicort 160/4.5mcg -) 2 puff IH BID [facility] Epoetin Zachery (Procrit -) 5,000 unit SQ ONCE ONE Stop: 05/03/18 14:46 Guaifenesin/Codeine Phosphate (Robitussin Ac -) 5 ml PO Q8H PRN PRN Reason: COUGH Last Admin: 05/04/18 08:19 Dose: 5 ml Heparin Sodium (Porcine) (Heparin -) 5,000 unit SQ BID [facility] Last Admin: 05/03/18 22:00 Dose: Not Given Sodium Chloride (Normal Saline -) 250 mls @ 3,000 mls/hr IV PRN PRN PRN Reason: Hypotension during Dialysis Stop: 05/04/18 14:45 Ibuprofen (Motrin -) 400 mg PO Q6H PRN PRN Reason: PAIN LEVEL 6-10 Last Admin: 05/03/18 23:08 Dose: 400 mg Lidocaine (Lidoderm Patch -) 1 patch TP DAILY [facility] Last Admin: 05/03/18 12:08 Dose: 1 patch Melatonin (Melatonin) 5 mg PO HS PRN PRN Reason: INSOMNIA Last Admin: 05/03/18 20:55 Dose: 5 mg Methocarbamol (Robaxin -) 500 mg PO Q12H PRN PRN Reason: MUSCLE SPASMS Last Admin: 05/03/18 20:56 Dose: 500 mg Miscellaneous (Lidoderm Patch Removal) 1 each MC DAILY@2200 [facility] Last Admin: 05/03/18 21:01 Dose: Not Given Prednisone (Deltasone -) 60 mg PO DAILY [facility] Last Admin: 05/03/18 12:08 Dose: 60 mg - Objective Vital Signs: Vital Signs Temperature 98.1 F 05/04/18 05:00 Pulse Rate 96 H 05/04/18 05:00 Respiratory Rate 20 05/04/18 05:00 Blood Pressure 148/99 05/04/18 05:00 O2 Sat by Pulse Oximetry (%) 95 05/03/18 21:00 Cardiovascular: Yes: Regular Rate and Rhythm Respiratory: Yes: Regular, CTA Bilaterally Gastrointestinal: Yes: Normal Bowel Sounds, Soft Problem List - Problems (1) COPD (chronic obstructive pulmonary disease) Assessment/Plan: -Saturating well on RA; monitoring -Was seen by pulm last admit -Continue symbicort, -duonebs. -prednisone from 60 -She should stop abusing tobacco -Pulm consult Code(s): J44.9 - CHRONIC OBSTRUCTIVE PULMONARY DISEASE, UNSPECIFIED Qualifiers: COPD type: unspecified COPD Qualified Code(s): J44.9 - Chronic obstructive pulmonary disease, unspecified (2) Chronic low back pain Code(s): M54.5 - LOW BACK PAIN; G89.29 - OTHER CHRONIC PAIN Qualifiers: Back pain laterality: unspecified Sciatica presence: unspecified whether sciatica present Qualified Code(s): M54.5 - Low back pain; G89.29 - Other chronic pain (3) ESRD (end stage renal disease) on dialysis Assessment/Plan: -Consulting nephro to see her for dialysis -Monitor K, Mg, BMP Code(s): N18.6 - END STAGE RENAL DISEASE; Z99.2 - DEPENDENCE ON RENAL DIALYSIS (4) Discharge planning issues Assessment/Plan: - Social Issues -Please see ER documentation for further information on issues with NH -Needs to see case management/social work in the AM -Psych Code(s): Z02.9 - ENCOUNTER FOR ADMINISTRATIVE EXAMINATIONS, UNSPECIFIED (5) Abscess Assessment/Plan: -Arm abscess -1x more dose vancomycin with HD Code(s): L02.91 - CUTANEOUS ABSCESS, UNSPECIFIED (6) Lung nodule Assessment/Plan: -Per pulmonary she needs a PET scan Outpatient Code(s): R91.1 - SOLITARY PULMONARY NODULE
[2018-05-04] MEDS ORDERED: PT OWN MED DRAWER 7, Y5N ONE ×2 (09:54→11:25)
[2018-05-04] MEDS: BUDESONIDE/FORMETEROL FUMARATE 160/4.5 mcg INHALER IH SCH ×2 (10:02→22:40)
[2018-05-04] MEDS: predniSONE 20 MG TABLET (UD) PO SCH (10:02)
[2018-05-04] MEDS: HEPARIN NA (PORCINE) 5,000 UNITS/ML 1ML VIAL SQ SCH ×2 (10:03→22:41)
[2018-05-04] MEDS: LIDOCAINE 5% TOPICAL PATCH TP SCH (10:03)
--- NOTE | 2018-05-04 10:26 | PN ---
Progress Note (short form) - Note Progress Note: RENAL complains of back pain and is asking for percocet she appears well however Last Vital Signs Temp Pulse Resp BP Pulse Ox 98.1 F 96 H 20 148/99 95 05/04/18 05:00 05/04/18 05:00 05/04/18 05:00 05/04/18 05:00 05/03/18 21:00 lungs has some rhonchi at left base cvs s1s2 rr abd soft ext no edema neuro a+ox3 Current Medications Generic Name Dose Route Start Last Admin Trade Name Freq PRN Reason Stop Dose Admin Acetaminophen 1,000 mg 05/03/18 17:03 05/04/18 08:19 Tylenol - PO 1,000 mg Q8H PRN Administration PAIN LEVEL 6-10 Albuterol Sulfate 1 amp 05/03/18 02:32 05/04/18 05:10 Ventolin 0.083% Nebulizer Soln - NEB 1 amp Q8H PRN Administration SHORT OF BREATH/WHEEZING Budesonide/Formoterol Fumarate 2 puff 05/03/18 22:00 05/04/18 10:02 Symbicort 160/4.5mcg - IH 2 puff BID [facility] Administration Epoetin Zachery 5,000 unit 05/03/18 14:45 Procrit - SQ 05/03/18 14:46 ONCE ONE Guaifenesin/Codeine Phosphate 5 ml 05/03/18 04:47 05/04/18 08:19 Robitussin Ac - PO 5 ml Q8H PRN Administration COUGH Heparin Sodium (Porcine) 5,000 unit 05/03/18 10:00 05/04/18 10:03 Heparin - SQ 5,000 unit BID [facility] Administration Sodium Chloride 250 mls @ 3,000 mls/hr 05/03/18 14:45 Normal Saline - IV 05/04/18 14:45 PRN PRN Hypotension during Dialysis Ibuprofen 400 mg 05/03/18 04:47 05/03/18 23:08 Motrin - PO 400 mg Q6H PRN Administration PAIN LEVEL 6-10 Lidocaine 1 patch 05/03/18 10:00 05/04/18 10:03 Lidoderm Patch - TP 1 patch DAILY [facility] Administration Lidocaine/Prilocaine 1 applic 05/04/18 09:20 Emla - TP DAILY PRN PAIN Melatonin 5 mg 05/03/18 04:47 05/03/18 20:55 Melatonin PO 5 mg HS PRN Administration INSOMNIA Methocarbamol 500 mg 05/03/18 04:47 05/03/18 20:56 Robaxin - PO 500 mg Q12H PRN Administration MUSCLE SPASMS Miscellaneous 1 each 05/03/18 22:00 05/03/18 21:01 Lidoderm Patch Removal MC Not Given DAILY@2200 [facility] Prednisone 60 mg 05/03/18 10:00 05/04/18 10:02 Deltasone - PO 60 mg DAILY [facility] Administration IMPRESSION esrd back pain PLAN awaiting HD today, could not get it yesterday due to number of emergencies continue analgesics would limit opiaites will get blood work done with hd will need rehab MV
[2018-05-04 10:31] LABS: ALBUMIN 3.4 g/dl (3.4-5.0); ALK PHOS 213 U/L (45-117); ANION GAP 18 MMOL/L (8-16); BILIRUBIN,TOTAL 0.8 mg/dL (0.2-1); CALCIUM 7.2 mg/dL (8.5-10.1); CHLORIDE 101 mmol/L (98-107); CO2 15 mmol/L (21-32); CREATININE 5.1 mg/dL (0.55-1.3); GLUCOSE,RANDOM 86 mg/dL (74-106); SGOT/AST 43 U/L (15-37); SGPT/ALT 80 U/L (13-61); SODIUM 134 mmol/L (136-145); TOT PROT 6.5 g/dl (6.4-8.2)
[2018-05-04 10:35] LABS: BLOOD UREA NITROGEN 130 mg/dL (7-18)
[2018-05-04] MEDS: METHOCARBAMOL 500 MG TABLET PO PRN (11:29)
--- NOTE | 2018-05-04 13:07 | PN ---
Progress Note, Physician History of Present Illness: pulmonary alert,less congested - Current Medication List Current Medications: Active Medications Acetaminophen (Tylenol -) 1,000 mg PO Q8H PRN PRN Reason: PAIN LEVEL 6-10 Last Admin: 05/04/18 08:19 Dose: 1,000 mg Albuterol Sulfate (Ventolin 0.083% Nebulizer Soln -) 1 amp NEB Q8H PRN PRN Reason: SHORT OF BREATH/WHEEZING Last Admin: 05/04/18 11:43 Dose: 1 amp Budesonide/Formoterol Fumarate (Symbicort 160/4.5mcg -) 2 puff IH BID [facility] Last Admin: 05/04/18 10:02 Dose: 2 puff Epoetin Zachery (Procrit -) 5,000 unit SQ ONCE ONE Stop: 05/03/18 14:46 Guaifenesin/Codeine Phosphate (Robitussin Ac -) 5 ml PO Q8H PRN PRN Reason: COUGH Last Admin: 05/04/18 08:19 Dose: 5 ml Heparin Sodium (Porcine) (Heparin -) 5,000 unit SQ BID [facility] Last Admin: 05/04/18 10:03 Dose: 5,000 unit Sodium Chloride (Normal Saline -) 250 mls @ 3,000 mls/hr IV PRN PRN PRN Reason: Hypotension during Dialysis Stop: 05/04/18 14:45 Ibuprofen (Motrin -) 400 mg PO Q6H PRN PRN Reason: PAIN LEVEL 6-10 Last Admin: 05/03/18 23:08 Dose: 400 mg Lidocaine (Lidoderm Patch -) 1 patch TP DAILY [facility] Last Admin: 05/04/18 10:03 Dose: 1 patch Lidocaine/Prilocaine (Emla -) 1 applic TP DAILY PRN PRN Reason: PAIN Last Admin: 05/04/18 12:34 Dose: 1 applic Melatonin (Melatonin) 5 mg PO HS PRN PRN Reason: INSOMNIA Last Admin: 05/03/18 20:55 Dose: 5 mg Methocarbamol (Robaxin -) 500 mg PO Q12H PRN PRN Reason: MUSCLE SPASMS Last Admin: 05/04/18 11:29 Dose: 500 mg Miscellaneous (Lidoderm Patch Removal) 1 each MC DAILY@2200 [facility] Last Admin: 05/03/18 21:01 Dose: Not Given Prednisone (Deltasone -) 60 mg PO DAILY [facility] Last Admin: 05/04/18 10:02 Dose: 60 mg - Objective Vital Signs: Vital Signs Temperature 97.9 F 05/04/18 08:05 Pulse Rate 99 H 05/04/18 08:05 Respiratory Rate 20 05/04/18 08:05 Blood Pressure 163/91 05/04/18 08:05 O2 Sat by Pulse Oximetry (%) 95 05/03/18 21:00 Constitutional: Yes: Well Nourished, Calm Eyes: Yes: WNL HENT: Yes: WNL Neck: Yes: WNL Cardiovascular: Yes: Regular Rate and Rhythm, S1, S2 Respiratory: Yes: Wheezes (scattered esther wheezes) Gastrointestinal: Yes: Normal Bowel Sounds, Soft Extremities: Yes: WNL Edema: No Labs: CBC, BMP 05/04/18 08:30 Problem List - Problems (1) COPD (chronic obstructive pulmonary disease) Code(s): J44.9 - CHRONIC OBSTRUCTIVE PULMONARY DISEASE, UNSPECIFIED Qualifiers: COPD type: unspecified COPD Qualified Code(s): J44.9 - Chronic obstructive pulmonary disease, unspecified (2) Chronic low back pain Code(s): M54.5 - LOW BACK PAIN; G89.29 - OTHER CHRONIC PAIN Qualifiers: Back pain laterality: unspecified Sciatica presence: unspecified whether sciatica present Qualified Code(s): M54.5 - Low back pain; G89.29 - Other chronic pain (3) Abscess Code(s): L02.91 - CUTANEOUS ABSCESS, UNSPECIFIED (4) Anemia Code(s): D64.9 - ANEMIA, UNSPECIFIED (5) CKD (chronic kidney disease) Code(s): N18.9 - CHRONIC KIDNEY DISEASE, UNSPECIFIED (6) COPD with acute exacerbation Code(s): J44.1 - CHRONIC OBSTRUCTIVE PULMONARY DISEASE W (ACUTE) EXACERBATION (7) ESRD (end stage renal disease) on dialysis Code(s): N18.6 - END STAGE RENAL DISEASE; Z99.2 - DEPENDENCE ON RENAL DIALYSIS (8) Emphysema lung Code(s): J43.9 - EMPHYSEMA, UNSPECIFIED (9) Lung nodule Code(s): R91.1 - SOLITARY PULMONARY NODULE (10) Anemia Code(s): D64.9 - ANEMIA, UNSPECIFIED Qualifiers: Anemia type: due to chronic kidney disease Chronic kidney disease stage: stage 4 (severe) Qualified Code(s): N18.4 - Chronic kidney disease, stage 4 ( severe); D63.1 - Anemia in chronic kidney disease (11) CHF (congestive heart failure) Code(s): I50.9 - HEART FAILURE, UNSPECIFIED (12) Nicotine dependence Code(s): F17.200 - NICOTINE DEPENDENCE, UNSPECIFIED, UNCOMPLICATED Qualifiers: Nicotine product type: cigarettes Substance use status: uncomplicated Qualified Code(s): F17.210 - Nicotine dependence, cigarettes, uncomplicated Assessment/Plan IMP COPD EXACERBATION LISA NODULE CHF ESRD ON HD HTN ARM ABSCESS BACK PAIN TOBACCO ABUSE PLAN PREDNISONE same dose INHALED BRONCHODILATORS O2 ABX CHEST CT HD PER RENAL SMOKING CESSATION COUNSELED DR CHILDS Problem List - Problems (1) COPD (chronic obstructive pulmonary disease) Code(s): J44.9 - CHRONIC OBSTRUCTIVE PULMONARY DISEASE, UNSPECIFIED Qualifiers: COPD type: unspecified COPD Qualified Code(s): J44.9 - Chronic obstructive pulmonary disease, unspecified (2) Chronic low back pain Code(s): M54.5 - LOW BACK PAIN; G89.29 - OTHER CHRONIC PAIN Qualifiers: Back pain laterality: unspecified Sciatica presence: unspecified whether sciatica present Qualified Code(s): M54.5 - Low back pain; G89.29 - Other chronic pain (3) Abscess Code(s): L02.91 - CUTANEOUS ABSCESS, UNSPECIFIED (4) Anemia Code(s): D64.9 - ANEMIA, UNSPECIFIED (5) CKD (chronic kidney disease) Code(s): N18.9 - CHRONIC KIDNEY DISEASE, UNSPECIFIED (6) COPD with acute exacerbation Code(s): J44.1 - CHRONIC OBSTRUCTIVE PULMONARY DISEASE W (ACUTE) EXACERBATION (7) ESRD (end stage renal disease) on dialysis Code(s): N18.6 - END STAGE RENAL DISEASE; Z99.2 - DEPENDENCE ON RENAL DIALYSIS (8) Emphysema lung Code(s): J43.9 - EMPHYSEMA, UNSPECIFIED (9) Lung nodule Code(s): R91.1 - SOLITARY PULMONARY NODULE (10) Anemia Code(s): D64.9 - ANEMIA, UNSPECIFIED Qualifiers: Anemia type: due to chronic kidney disease Chronic kidney disease stage: stage 4 (severe) Qualified Code(s): N18.4 - Chronic kidney disease, stage 4 ( severe); D63.1 - Anemia in chronic kidney disease (11) CHF (congestive heart failure) Code(s): I50.9 - HEART FAILURE, UNSPECIFIED (12) Nicotine dependence Code(s): F17.200 - NICOTINE DEPENDENCE, UNSPECIFIED, UNCOMPLICATED Qualifiers: Nicotine product type: cigarettes Substance use status: uncomplicated Qualified Code(s): F17.210 - Nicotine dependence, cigarettes, uncomplicated
[2018-05-04] MEDS ORDERED: SODIUM CHLORIDE 250 ML IV PRN (13:30)
[2018-05-04] MEDS ORDERED: EPOETIN ALFA 3,000 UNIT, EPOETIN ALFA 2,000 UNIT IVPUSH ONE (13:30)
[2018-05-04 13:48] LABS: BASO % 0.4 % (0-2.0); HEMATOCRIT 23.6 % (32.4-45.2); LYMPH % 4.7 % (8-40); MCH 30.2 pg (25.7-33.7); MCHC 33.8 g/dl (32.0-36.0); MEAN CELL VOLUME 89.3 fl (80-96); MEAN PLT VOLUME 7.9 fl (7.5-11.1); MONO % 4.5 % (3.8-10.2); NEUT % 90.4 % (42.8-82.8); PLATELET COUNT 318 K/MM3 (134-434); RBC 2.64 M/mm3 (3.60-5.2); RDW 17.2 % (11.6-15.6); WHITE BLOOD COUNT 6.4 K/mm3 (4.0-10.0)
[2018-05-04 14:13] LABS: ANION GAP 13 MMOL/L (8-16); BLOOD UREA NITROGEN 98 mg/dL (7-18); CALCIUM 7.5 mg/dL (8.5-10.1); CHLORIDE 101 mmol/L (98-107); CO2 21 mmol/L (21-32); CREATININE 3.7 mg/dL (0.55-1.3); GLUCOSE,RANDOM 138 mg/dL (74-106); MAGNESIUM 1.9 mg/dL (1.8-2.4); PHOSPHOROUS 5.8 mg/dL (2.5-4.9); POTASSIUM 3.6 mmol/L (3.5-5.1); SODIUM 136 mmol/L (136-145)
[2018-05-04 14:59] LABS: ACANTHOCYTES 0; ANISOCYTOSIS 0; HELMET CELLS 0; HOWELL-JOLLY BODIES 0; MACROCYTOSIS 0; OVALOCYTE 0; PLATELET ESTIMATE NORMAL; ROULEAU 0; SICKELED CELLS 0; TARGET CELLS 0; TEAR DROP CELLS 0; TOXIC GRANULATION 0
[2018-05-04] MEDS ORDERED: ACETAMINOPHEN 325 MG TABLET (FP) PO ONE (15:45)
[2018-05-04] MEDS: MELATONIN 5 MG TABLETS PO PRN (22:43)
[2018-05-04] MEDS: LIDOCAINE PATCH REMOVAL MC SCH (22:45)
[2018-05-05] MEDS: guaiFENesin/CODEINE 5 ML UNIT-DOSE CUPS PO PRN (01:23)
[2018-05-05] MEDS: ALBUTEROL SO4 0.083% IH SOL 2.5 MG/3 ML VIAL.NEB. NEB PRN ×3 (07:20→22:36)
[2018-05-05] MEDS: BUDESONIDE/FORMETEROL FUMARATE 160/4.5 mcg INHALER IH SCH ×3 (09:01→21:41)
[2018-05-05] MEDS ORDERED: NICOTINE 14 MG/24 HOURS TOPICAL PATCH TD SCH (10:45)
--- NOTE | 2018-05-05 10:45 | DS ---
Physical Examination Vital Signs: Vital Signs Temperature 97.9 F 05/05/18 06:53 Pulse Rate 94 H 05/05/18 06:53 Respiratory Rate 20 05/05/18 06:53 Blood Pressure 139/87 05/05/18 06:53 O2 Sat by Pulse Oximetry (%) 95 05/04/18 21:00 Findings/Remarks: Patient seen and examined; please refer to DCs for further information was just discharged earlier. She presents being sent back from detention after she was informed she was not allowed to smoke there; she told the ER she was SOB when she arrived. Is on a 5 day burst of prednisone for COPD exacerbation per pulmonary medicine. Seen here by Dr. Benavidez and Dr. Marie during last admit where they were recommended to be placed on LABA/LAMA/ICS with close followup for PET scan due to a L-apical pleural nodule seen on 12/2017 CT scan. She was scheduled to get an additional dose of vanco with HD (she sees Dr. Coe for Nephro when she is here). Please refer to recent DCs/etc. for further historical information as she was just discharged. Given nebs and decadron in the ER. Constitutional: Yes: Well Nourished, No Distress, Anxious Cardiovascular: Yes: Regular Rate and Rhythm Respiratory: Yes: Regular Gastrointestinal: Yes: Normal Bowel Sounds, Soft Musculoskeletal: Yes: WNL Extremities: Yes: WNL Edema: No Peripheral Pulses WNL: Yes Neurological: Yes: Alert Labs: CBC, BMP 05/04/18 13:30 05/04/18 13:30 Discharge Summary Reason For Visit: CHRONIC OBSTRUCTIVE PULMONARY DISEASE WITH ACUTE E Current Active Problems COPD (chronic obstructive pulmonary disease) (Acute) Chronic low back pain (Acute) Discharge planning issues (Acute) Hospital Course: Pt started on CHANTIX, she agrees to sign the no smoking agreement. Condition: Stable - Instructions Referrals: Lisette White MD [Primary Care Provider] - Disposition: RETIREMENT FACILITY - Home Medications Comprehensive Discharge Medication List: Ambulatory Orders Ibuprofen [Motrin -] 400 mg PO QID PRN #28 tablet 02/23/18 Methocarbamol [Robaxin -] 500 mg PO BID PRN #14 tablet 02/23/18 Lidocaine 5% Patch [Lidoderm -] 1 patch TP DAILY #7 patch 03/02/18 Albuterol 2.5/Ipratropium 0.5 [Duoneb -] 1 amp NEB Q6H PRN amp 03/14/18 Salmeterol/Fluticasone [Advair 100Mcg/50Mcg -] 1 puff IH BID inhaler 03/14/18 Sulfamethoxazole/Trimethoprim [Bactrim DS -] 1 tab PO BID #14 tablet 04/18/18 Albuterol Sulfate Inhaler - [Ventolin HFA Inhaler -] 2 puff IH QID PRN 04/26/18 Guaifenesin AC [Robitussin AC -] 5 ml PO TID PRN #60 liquid MDD 15 ml 04/29/18 Melatonin 5 mg PO HS PRN tab 04/29/18 predniSONE [Deltasone -] 40 mg PO DAILY #10 tablet MDD 2 04/29/18 Nicotine [Nicotine Patch 14mg/24 hr] 1 each TD DAILY #30 patch.td24 05/05/18
[2018-05-05] MEDS: HEPARIN NA (PORCINE) 5,000 UNITS/ML 1ML VIAL SQ SCH ×2 (11:06→21:37)
[2018-05-05] MEDS: predniSONE 20 MG TABLET (UD) PO SCH (11:07)
[2018-05-05] MEDS: oxyCODONE HCL 5 MG TABLET PO PRN ×3 (11:07→23:02)
[2018-05-05] MEDS: LIDOCAINE 5% TOPICAL PATCH TP SCH (11:07)
--- NOTE | 2018-05-05 11:35 | PN ---
Progress Note (short form) - Note Progress Note: PULMONARY Still some shortness of breath and chest congestion. Vital Signs Period Temp Pulse Resp BP Sys/Bills Pulse Ox Last 24 Hr 97.5 F-97.9 F 58-107 18-20 121-171/73-102 95 Gen: NAD at rest Heart: RRR Lung: scattered rhonchi Abd: soft, nontender Ext: no edema CBC, BMP 05/04/18 13:30 05/04/18 13:30 Active Medications Acetaminophen (Tylenol -) 1,000 mg PO Q8H PRN PRN Reason: PAIN LEVEL 6-10 Last Admin: 05/04/18 08:19 Dose: 1,000 mg Albuterol Sulfate (Ventolin 0.083% Nebulizer Soln -) 1 amp NEB Q8H PRN PRN Reason: SHORT OF BREATH/WHEEZING Last Admin: 05/05/18 07:20 Dose: 1 amp Budesonide/Formoterol Fumarate (Symbicort 160/4.5mcg -) 2 puff IH BID [facility] Last Admin: 05/05/18 11:06 Dose: 2 puff Guaifenesin/Codeine Phosphate (Robitussin Ac -) 5 ml PO Q8H PRN PRN Reason: COUGH Last Admin: 05/05/18 01:23 Dose: 5 ml Heparin Sodium (Porcine) (Heparin -) 5,000 unit SQ BID [facility] Last Admin: 05/05/18 11:06 Dose: 5,000 unit Ibuprofen (Motrin -) 400 mg PO Q6H PRN PRN Reason: PAIN LEVEL 6-10 Last Admin: 05/03/18 23:08 Dose: 400 mg Lidocaine (Lidoderm Patch -) 1 patch TP DAILY [facility] Last Admin: 05/05/18 11:07 Dose: 1 patch Lidocaine/Prilocaine (Emla -) 1 applic TP DAILY PRN PRN Reason: PAIN Last Admin: 05/04/18 12:34 Dose: 1 applic Melatonin (Melatonin) 5 mg PO HS PRN PRN Reason: INSOMNIA Last Admin: 05/04/18 22:43 Dose: 5 mg Methocarbamol (Robaxin -) 500 mg PO Q12H PRN PRN Reason: MUSCLE SPASMS Last Admin: 05/04/18 11:29 Dose: 500 mg Miscellaneous (Lidoderm Patch Removal) 1 each MC DAILY@2200 [facility] Last Admin: 05/04/18 22:45 Dose: Not Given Nicotine (Nicoderm Patch -) 14 mg TD DAILY [facility] Last Admin: 05/05/18 11:07 Dose: 14 mg Oxycodone HCl (Roxicodone -) 5 mg PO Q6H PRN PRN Reason: PAIN LEVEL 6-10 Last Admin: 05/05/18 11:07 Dose: 5 mg Prednisone (Deltasone -) 60 mg PO DAILY [facility] Last Admin: 05/05/18 11:07 Dose: 60 mg A/P Acute COPD Exacerbation Lung Nodule/Pleural Thickening LV Diastolic Dysfunction ESRD on HD HTN Smoker - prednisone taper - inhaled bronchodilators - O2 as needed - HD per renal - DVT prophylaxis - d/c planning
[2018-05-05] MEDS ORDERED: PT OWN MED DRAWER 7, Y5N ONE ×2 (14:26→17:05)
[2018-05-05] MEDS: ACETAMINOPHEN 500 MG TABLET (FP) PO PRN ×2 (14:44→21:41)
--- NOTE | 2018-05-05 17:32 | PN ---
Progress Note, Physician History of Present Illness: Pt seen and examined at bedside. She denies shortness of breath. - Current Medication List Current Medications: Active Medications Acetaminophen (Tylenol -) 1,000 mg PO Q8H PRN PRN Reason: PAIN LEVEL 6-10 Last Admin: 05/05/18 14:44 Dose: 1,000 mg Albuterol Sulfate (Ventolin 0.083% Nebulizer Soln -) 1 amp NEB Q8H PRN PRN Reason: SHORT OF BREATH/WHEEZING Last Admin: 05/05/18 14:16 Dose: 1 amp Budesonide/Formoterol Fumarate (Symbicort 160/4.5mcg -) 2 puff IH BID [facility] Last Admin: 05/05/18 11:06 Dose: 2 puff Guaifenesin/Codeine Phosphate (Robitussin Ac -) 5 ml PO Q8H PRN PRN Reason: COUGH Last Admin: 05/05/18 01:23 Dose: 5 ml Heparin Sodium (Porcine) (Heparin -) 5,000 unit SQ BID [facility] Last Admin: 05/05/18 11:06 Dose: 5,000 unit Ibuprofen (Motrin -) 400 mg PO Q6H PRN PRN Reason: PAIN LEVEL 6-10 Last Admin: 05/03/18 23:08 Dose: 400 mg Lidocaine (Lidoderm Patch -) 1 patch TP DAILY [facility] Last Admin: 05/05/18 11:07 Dose: 1 patch Lidocaine/Prilocaine (Emla -) 1 applic TP DAILY PRN PRN Reason: PAIN Last Admin: 05/04/18 12:34 Dose: 1 applic Melatonin (Melatonin) 5 mg PO HS PRN PRN Reason: INSOMNIA Last Admin: 05/04/18 22:43 Dose: 5 mg Methocarbamol (Robaxin -) 500 mg PO Q12H PRN PRN Reason: MUSCLE SPASMS Last Admin: 05/04/18 11:29 Dose: 500 mg Miscellaneous (Lidoderm Patch Removal) 1 each MC DAILY@2200 [facility] Last Admin: 05/04/18 22:45 Dose: Not Given Oxycodone HCl (Roxicodone -) 5 mg PO Q6H PRN PRN Reason: PAIN LEVEL 6-10 Last Admin: 05/05/18 17:08 Dose: 5 mg Prednisone (Deltasone -) 60 mg PO DAILY [facility] Last Admin: 05/05/18 11:07 Dose: 60 mg Varenicline (Chantix -) 0.5 mg PO DAILY [facility] - Objective Vital Signs: Vital Signs Temperature 97.3 F L 05/05/18 10:00 Pulse Rate 99 H 05/05/18 10:00 Respiratory Rate 18 05/05/18 10:00 Blood Pressure 131/80 05/05/18 10:00 O2 Sat by Pulse Oximetry (%) 95 05/05/18 09:00 Constitutional: Yes: Calm Eyes: Yes: Conjunctiva Clear HENT: Yes: Atraumatic Neck: Yes: Supple Cardiovascular: Yes: S1, S2 Respiratory: Yes: CTA Bilaterally Gastrointestinal: Yes: Soft Genitourinary: Yes: WNL Musculoskeletal: Yes: WNL Edema: No Neurological: Yes: Oriented Labs: CBC, BMP 05/04/18 13:30 05/04/18 13:30 Assessment/Plan Current Medications Generic Name Dose Route Start Last Admin Trade Name Freq PRN Reason Stop Dose Admin Acetaminophen 1,000 mg 05/03/18 17:03 05/05/18 14:44 Tylenol - PO 1,000 mg Q8H PRN Administration PAIN LEVEL 6-10 Albuterol Sulfate 1 amp 05/03/18 02:32 05/05/18 14:16 Ventolin 0.083% Nebulizer Soln - NEB 1 amp Q8H PRN Administration SHORT OF BREATH/WHEEZING Budesonide/Formoterol Fumarate 2 puff 05/03/18 22:00 05/05/18 11:06 Symbicort 160/4.5mcg - IH 2 puff BID [facility] Administration Guaifenesin/Codeine Phosphate 5 ml 05/03/18 04:47 05/05/18 01:23 Robitussin Ac - PO 5 ml Q8H PRN Administration COUGH Heparin Sodium (Porcine) 5,000 unit 05/03/18 10:00 05/05/18 11:06 Heparin - SQ 5,000 unit BID [facility] Administration Ibuprofen 400 mg 05/03/18 04:47 05/03/18 23:08 Motrin - PO 400 mg Q6H PRN Administration PAIN LEVEL 6-10 Lidocaine 1 patch 05/03/18 10:00 05/05/18 11:07 Lidoderm Patch - TP 1 patch DAILY [facility] Administration Lidocaine/Prilocaine 1 applic 05/04/18 09:20 05/04/18 12:34 Emla - TP 1 applic DAILY PRN Administration PAIN Melatonin 5 mg 05/03/18 04:47 05/04/18 22:43 Melatonin PO 5 mg HS PRN Administration INSOMNIA Methocarbamol 500 mg 05/03/18 04:47 05/04/18 11:29 Robaxin - PO 500 mg Q12H PRN Administration MUSCLE SPASMS Miscellaneous 1 each 05/03/18 22:00 05/04/18 22:45 Lidoderm Patch Removal MC Not Given DAILY@2200 [facility] Oxycodone HCl 5 mg 05/05/18 10:43 05/05/18 17:08 Roxicodone - PO 5 mg Q6H PRN Administration PAIN LEVEL 6-10 Prednisone 60 mg 05/03/18 10:00 05/05/18 11:07 Deltasone - PO 60 mg DAILY [facility] Administration Varenicline 0.5 mg 05/05/18 14:00 Chantix - PO DAILY [facility] Impression 1. ESRD 2. arm abscess 3. chronic back pain 4. anemia 5. anxiety 6. hx of nsaid use 7. chf diastolic 8. possible complex renal cyst 9. HLD 10. nephrolithiasis 11. copd Plan - HD tomorrow - epogen for anemia - smoking cesstion - will follow
[2018-05-05] MEDS: VARENICLINE TARTRATE 0.5 MG TAB PO SCH (17:53)
[2018-05-05] MEDS: LIDOCAINE PATCH REMOVAL MC SCH (21:42)
[2018-05-06] MEDS: guaiFENesin/CODEINE 5 ML UNIT-DOSE CUPS PO PRN (00:37)
[2018-05-06] MEDS: oxyCODONE HCL 5 MG TABLET PO PRN ×2 (05:24→19:00)
[2018-05-06] MEDS: ALBUTEROL SO4 0.083% IH SOL 2.5 MG/3 ML VIAL.NEB. NEB PRN ×3 (05:46→11:23)
[2018-05-06] MEDS ORDERED: PT OWN MED DRAWER 7, Y5N ONE ×3 (06:21→12:53)
[2018-05-06] MEDS: HEPARIN NA (PORCINE) 5,000 UNITS/ML 1ML VIAL SQ SCH (09:32)
[2018-05-06] MEDS: LIDOCAINE 5% TOPICAL PATCH TP SCH (09:34)
[2018-05-06] MEDS: VARENICLINE TARTRATE 0.5 MG TAB PO SCH (09:34)
[2018-05-06] MEDS: predniSONE 20 MG TABLET (UD) PO SCH (09:34)
[2018-05-06] MEDS: BUDESONIDE/FORMETEROL FUMARATE 160/4.5 mcg INHALER IH SCH (09:35)
[2018-05-06] MEDS ORDERED: predniSONE 20 MG TABLET (UD) PO SCH (10:04)
--- NOTE | 2018-05-06 10:16 | PN ---
Progress Note, Physician Chief Complaint: ESRD History of Present Illness: NAD refused to quit smoking started on chantix refused by 15 other rehabs, accepted by [facility], where pt refuses to go Son aware plan for pt to go home - Current Medication List Current Medications: Active Medications Acetaminophen (Tylenol -) 1,000 mg PO Q8H PRN PRN Reason: PAIN LEVEL 6-10 Last Admin: 05/05/18 21:41 Dose: 1,000 mg Albuterol Sulfate (Ventolin 0.083% Nebulizer Soln -) 1 amp NEB Q8H PRN PRN Reason: SHORT OF BREATH/WHEEZING Last Admin: 05/06/18 08:43 Dose: 1 amp Budesonide/Formoterol Fumarate (Symbicort 160/4.5mcg -) 2 puff IH BID [facility] Last Admin: 05/06/18 09:35 Dose: 2 puff Epoetin Zachery (Procrit -) 8,000 unit IVPUSH ONCE ONE Stop: 05/06/18 17:34 Guaifenesin/Codeine Phosphate (Robitussin Ac -) 5 ml PO Q8H PRN PRN Reason: COUGH Last Admin: 05/06/18 00:37 Dose: 5 ml Heparin Sodium (Porcine) (Heparin -) 5,000 unit SQ BID [facility] Last Admin: 05/06/18 09:32 Dose: Not Given Sodium Chloride (Normal Saline -) 250 mls @ 3,000 mls/hr IV PRN PRN PRN Reason: Hypotension during Dialysis Stop: 05/06/18 17:34 Ibuprofen (Motrin -) 400 mg PO Q6H PRN PRN Reason: PAIN LEVEL 6-10 Last Admin: 05/03/18 23:08 Dose: 400 mg Lidocaine (Lidoderm Patch -) 1 patch TP DAILY [facility] Last Admin: 05/06/18 09:34 Dose: 1 patch Lidocaine/Prilocaine (Emla -) 1 applic TP DAILY PRN PRN Reason: PAIN Last Admin: 05/04/18 12:34 Dose: 1 applic Melatonin (Melatonin) 5 mg PO HS PRN PRN Reason: INSOMNIA Last Admin: 05/04/18 22:43 Dose: 5 mg Methocarbamol (Robaxin -) 500 mg PO Q12H PRN PRN Reason: MUSCLE SPASMS Last Admin: 05/04/18 11:29 Dose: 500 mg Miscellaneous (Lidoderm Patch Removal) 1 each MC DAILY@2200 [facility] Last Admin: 05/05/18 21:42 Dose: Not Given Oxycodone HCl (Roxicodone -) 5 mg PO Q6H PRN PRN Reason: PAIN LEVEL 6-10 Last Admin: 05/06/18 05:24 Dose: 5 mg Prednisone (Deltasone -) 40 mg PO DAILY [facility] Varenicline (Chantix -) 0.5 mg PO DAILY [facility] Last Admin: 05/06/18 09:34 Dose: 0.5 mg - Objective Vital Signs: Vital Signs Temperature 98.2 F 05/06/18 06:36 Pulse Rate 94 H 05/06/18 06:36 Respiratory Rate 20 05/06/18 06:36 Blood Pressure 155/85 05/06/18 06:36 O2 Sat by Pulse Oximetry (%) 95 05/05/18 21:50 Constitutional: Yes: Well Nourished, No Distress, Calm Cardiovascular: Yes: Regular Rate and Rhythm Respiratory: Yes: Regular Gastrointestinal: Yes: Normal Bowel Sounds, Soft Musculoskeletal: Yes: WNL Extremities: Yes: WNL Edema: No Peripheral Pulses WNL: Yes Neurological: Yes: Alert, Oriented Psychiatric: Yes: Alert, Oriented Labs: CBC, BMP 05/04/18 13:30 05/04/18 13:30 Problem List - Problems (1) Smoker unmotivated to quit Assessment/Plan: -refused nicotine patches -wants, chantix, started yesterday Code(s): F17.200 - NICOTINE DEPENDENCE, UNSPECIFIED, UNCOMPLICATED (2) COPD (chronic obstructive pulmonary disease) Assessment/Plan: -on Symbicort and proair-resume upon discharge Code(s): J44.9 - CHRONIC OBSTRUCTIVE PULMONARY DISEASE, UNSPECIFIED Qualifiers: COPD type: unspecified COPD Qualified Code(s): J44.9 - Chronic obstructive pulmonary disease, unspecified (3) Chronic back pain Assessment/Plan: -On Oxycodone 5 mg Q4H PRN Code(s): M54.9 - DORSALGIA, UNSPECIFIED; G89.29 - OTHER CHRONIC PAIN (4) ESRD (end stage renal disease) on dialysis Assessment/Plan: -On Dialysis [facility] -Nephrology on board Code(s): N18.6 - END STAGE RENAL DISEASE; Z99.2 - DEPENDENCE ON RENAL DIALYSIS (5) Anxiety and depression Assessment/Plan: -resume cymbalta -seen by Psychiatry Code(s): F41.8 - OTHER SPECIFIED ANXIETY DISORDERS (6) Nicotine dependence Code(s): F17.200 - NICOTINE DEPENDENCE, UNSPECIFIED, UNCOMPLICATED Qualifiers: Nicotine product type: cigarettes Substance use status: uncomplicated Qualified Code(s): F17.210 - Nicotine dependence, cigarettes, uncomplicated Assessment/Plan see problem list Physical therapy D/C home with VNS
--- NOTE | 2018-05-06 10:44 | PN ---
Progress Note, Physician History of Present Illness: PULMONARY ALERT,FEELING BETTER,LESS CONGESTED - Current Medication List Current Medications: Active Medications Acetaminophen (Tylenol -) 1,000 mg PO Q8H PRN PRN Reason: PAIN LEVEL 6-10 Last Admin: 05/05/18 21:41 Dose: 1,000 mg Albuterol Sulfate (Ventolin 0.083% Nebulizer Soln -) 1 amp NEB Q8H PRN PRN Reason: SHORT OF BREATH/WHEEZING Last Admin: 05/06/18 08:43 Dose: 1 amp Budesonide/Formoterol Fumarate (Symbicort 160/4.5mcg -) 2 puff IH BID [facility] Last Admin: 05/06/18 09:35 Dose: 2 puff Epoetin Zachery (Procrit -) 8,000 unit IVPUSH ONCE ONE Stop: 05/06/18 17:34 Guaifenesin/Codeine Phosphate (Robitussin Ac -) 5 ml PO Q8H PRN PRN Reason: COUGH Last Admin: 05/06/18 00:37 Dose: 5 ml Heparin Sodium (Porcine) (Heparin -) 5,000 unit SQ BID [facility] Last Admin: 05/06/18 09:32 Dose: Not Given Sodium Chloride (Normal Saline -) 250 mls @ 3,000 mls/hr IV PRN PRN PRN Reason: Hypotension during Dialysis Stop: 05/06/18 17:34 Ibuprofen (Motrin -) 400 mg PO Q6H PRN PRN Reason: PAIN LEVEL 6-10 Last Admin: 05/03/18 23:08 Dose: 400 mg Lidocaine (Lidoderm Patch -) 1 patch TP DAILY [facility] Last Admin: 05/06/18 09:34 Dose: 1 patch Lidocaine/Prilocaine (Emla -) 1 applic TP DAILY PRN PRN Reason: PAIN Last Admin: 05/04/18 12:34 Dose: 1 applic Melatonin (Melatonin) 5 mg PO HS PRN PRN Reason: INSOMNIA Last Admin: 05/04/18 22:43 Dose: 5 mg Methocarbamol (Robaxin -) 500 mg PO Q12H PRN PRN Reason: MUSCLE SPASMS Last Admin: 05/04/18 11:29 Dose: 500 mg Miscellaneous (Lidoderm Patch Removal) 1 each MC DAILY@2200 [facility] Last Admin: 05/05/18 21:42 Dose: Not Given Oxycodone HCl (Roxicodone -) 5 mg PO Q6H PRN PRN Reason: PAIN LEVEL 6-10 Last Admin: 05/06/18 05:24 Dose: 5 mg Prednisone (Deltasone -) 40 mg PO DAILY [facility] Varenicline (Chantix -) 0.5 mg PO DAILY [facility] Last Admin: 05/06/18 09:34 Dose: 0.5 mg - Objective Vital Signs: Vital Signs Temperature 98.2 F 05/06/18 06:36 Pulse Rate 94 H 05/06/18 06:36 Respiratory Rate 20 05/06/18 06:36 Blood Pressure 155/85 05/06/18 06:36 O2 Sat by Pulse Oximetry (%) 95 05/05/18 21:50 Constitutional: Yes: Well Nourished, Calm Eyes: Yes: WNL HENT: Yes: WNL Neck: Yes: WNL Cardiovascular: Yes: Regular Rate and Rhythm, S1, S2 Respiratory: Yes: Wheezes (SCATTERED LIONEL WHEEZES) Gastrointestinal: Yes: Normal Bowel Sounds, Soft Extremities: Yes: WNL Edema: No Labs: CBC, BMP 05/04/18 13:30 05/04/18 13:30 Problem List - Problems (1) COPD (chronic obstructive pulmonary disease) Code(s): J44.9 - CHRONIC OBSTRUCTIVE PULMONARY DISEASE, UNSPECIFIED Qualifiers: COPD type: unspecified COPD Qualified Code(s): J44.9 - Chronic obstructive pulmonary disease, unspecified (2) Chronic low back pain Code(s): M54.5 - LOW BACK PAIN; G89.29 - OTHER CHRONIC PAIN Qualifiers: Back pain laterality: unspecified Sciatica presence: unspecified whether sciatica present Qualified Code(s): M54.5 - Low back pain; G89.29 - Other chronic pain (3) Abscess Code(s): L02.91 - CUTANEOUS ABSCESS, UNSPECIFIED (4) Anemia Code(s): D64.9 - ANEMIA, UNSPECIFIED (5) CKD (chronic kidney disease) Code(s): N18.9 - CHRONIC KIDNEY DISEASE, UNSPECIFIED (6) COPD with acute exacerbation Code(s): J44.1 - CHRONIC OBSTRUCTIVE PULMONARY DISEASE W (ACUTE) EXACERBATION (7) ESRD (end stage renal disease) on dialysis Code(s): N18.6 - END STAGE RENAL DISEASE; Z99.2 - DEPENDENCE ON RENAL DIALYSIS (8) Emphysema lung Code(s): J43.9 - EMPHYSEMA, UNSPECIFIED (9) Lung nodule Code(s): R91.1 - SOLITARY PULMONARY NODULE (10) Anemia Code(s): D64.9 - ANEMIA, UNSPECIFIED Qualifiers: Anemia type: due to chronic kidney disease Chronic kidney disease stage: stage 4 (severe) Qualified Code(s): N18.4 - Chronic kidney disease, stage 4 ( severe); D63.1 - Anemia in chronic kidney disease (11) CHF (congestive heart failure) Code(s): I50.9 - HEART FAILURE, UNSPECIFIED (12) Nicotine dependence Code(s): F17.200 - NICOTINE DEPENDENCE, UNSPECIFIED, UNCOMPLICATED Qualifiers: Nicotine product type: cigarettes Substance use status: uncomplicated Qualified Code(s): F17.210 - Nicotine dependence, cigarettes, uncomplicated Assessment/Plan IMP COPD EXACERBATION LISA NODULE CHF ESRD ON HD HTN ARM ABSCESS BACK PAIN TOBACCO ABUSE PLAN PREDNISONE same dose INHALED BRONCHODILATORS O2 ABX HD PER RENAL SMOKING CESSATION COUNSELED DR CHILDS Problem List - Problems (1) COPD (chronic obstructive pulmonary disease) Code(s): J44.9 - CHRONIC OBSTRUCTIVE PULMONARY DISEASE, UNSPECIFIED Qualifiers: COPD type: unspecified COPD Qualified Code(s): J44.9 - Chronic obstructive pulmonary disease, unspecified (2) Chronic low back pain Code(s): M54.5 - LOW BACK PAIN; G89.29 - OTHER CHRONIC PAIN Qualifiers: Back pain laterality: unspecified Sciatica presence: unspecified whether sciatica present Qualified Code(s): M54.5 - Low back pain; G89.29 - Other chronic pain (3) Abscess Code(s): L02.91 - CUTANEOUS ABSCESS, UNSPECIFIED (4) Anemia Code(s): D64.9 - ANEMIA, UNSPECIFIED (5) CKD (chronic kidney disease) Code(s): N18.9 - CHRONIC KIDNEY DISEASE, UNSPECIFIED (6) COPD with acute exacerbation Code(s): J44.1 - CHRONIC OBSTRUCTIVE PULMONARY DISEASE W (ACUTE) EXACERBATION (7) ESRD (end stage renal disease) on dialysis Code(s): N18.6 - END STAGE RENAL DISEASE; Z99.2 - DEPENDENCE ON RENAL DIALYSIS (8) Emphysema lung Code(s): J43.9 - EMPHYSEMA, UNSPECIFIED (9) Lung nodule Code(s): R91.1 - SOLITARY PULMONARY NODULE (10) Anemia Code(s): D64.9 - ANEMIA, UNSPECIFIED Qualifiers: Anemia type: due to chronic kidney disease Chronic kidney disease stage: stage 4 (severe) Qualified Code(s): N18.4 - Chronic kidney disease, stage 4 ( severe); D63.1 - Anemia in chronic kidney disease (11) CHF (congestive heart failure) Code(s): I50.9 - HEART FAILURE, UNSPECIFIED (12) Nicotine dependence Code(s): F17.200 - NICOTINE DEPENDENCE, UNSPECIFIED, UNCOMPLICATED Qualifiers: Nicotine product type: cigarettes Substance use status: uncomplicated Qualified Code(s): F17.210 - Nicotine dependence, cigarettes, uncomplicated
--- NOTE | 2018-05-06 13:56 | PN ---
Progress Note, Physician History of Present Illness: Pt seen and examined at bedside. She is awake and appears comfortable. - Current Medication List Current Medications: Active Medications Acetaminophen (Tylenol -) 1,000 mg PO Q8H PRN PRN Reason: PAIN LEVEL 6-10 Last Admin: 05/05/18 21:41 Dose: 1,000 mg Albuterol Sulfate (Ventolin 0.083% Nebulizer Soln -) 1 amp NEB Q8H PRN PRN Reason: SHORT OF BREATH/WHEEZING Last Admin: 05/06/18 11:23 Dose: 1 amp Budesonide/Formoterol Fumarate (Symbicort 160/4.5mcg -) 2 puff IH BID [facility] Last Admin: 05/06/18 09:35 Dose: 2 puff Epoetin Zachery (Procrit -) 8,000 unit IVPUSH ONCE ONE Stop: 05/06/18 17:34 Guaifenesin/Codeine Phosphate (Robitussin Ac -) 5 ml PO Q8H PRN PRN Reason: COUGH Last Admin: 05/06/18 00:37 Dose: 5 ml Heparin Sodium (Porcine) (Heparin -) 5,000 unit SQ BID [facility] Last Admin: 05/06/18 09:32 Dose: Not Given Sodium Chloride (Normal Saline -) 250 mls @ 3,000 mls/hr IV PRN PRN PRN Reason: Hypotension during Dialysis Stop: 05/06/18 17:34 Ibuprofen (Motrin -) 400 mg PO Q6H PRN PRN Reason: PAIN LEVEL 6-10 Last Admin: 05/03/18 23:08 Dose: 400 mg Lidocaine (Lidoderm Patch -) 1 patch TP DAILY [facility] Last Admin: 05/06/18 09:34 Dose: 1 patch Lidocaine/Prilocaine (Emla -) 1 applic TP DAILY PRN PRN Reason: PAIN Last Admin: 05/04/18 12:34 Dose: 1 applic Melatonin (Melatonin) 5 mg PO HS PRN PRN Reason: INSOMNIA Last Admin: 05/04/18 22:43 Dose: 5 mg Methocarbamol (Robaxin -) 500 mg PO Q12H PRN PRN Reason: MUSCLE SPASMS Last Admin: 05/04/18 11:29 Dose: 500 mg Miscellaneous (Lidoderm Patch Removal) 1 each MC DAILY@2200 [facility] Last Admin: 05/05/18 21:42 Dose: Not Given Oxycodone HCl (Roxicodone -) 5 mg PO Q6H PRN PRN Reason: PAIN LEVEL 6-10 Last Admin: 05/06/18 05:24 Dose: 5 mg Prednisone (Deltasone -) 40 mg PO DAILY [facility] Varenicline (Chantix -) 0.5 mg PO DAILY [facility] Last Admin: 05/06/18 09:34 Dose: 0.5 mg - Objective Vital Signs: Vital Signs Temperature 98.0 F 05/06/18 10:00 Pulse Rate 102 H 05/06/18 10:00 Respiratory Rate 18 05/06/18 10:00 Blood Pressure 130/78 05/06/18 10:00 O2 Sat by Pulse Oximetry (%) 95 05/05/18 21:50 Constitutional: Yes: Calm Eyes: Yes: Conjunctiva Clear HENT: Yes: Atraumatic Cardiovascular: Yes: S1, S2 Respiratory: Yes: On Nasal O2, Wheezes Gastrointestinal: Yes: Normal Bowel Sounds, Soft Genitourinary: Yes: WNL Musculoskeletal: Yes: WNL Edema: No Neurological: Yes: Oriented Psychiatric: Yes: Oriented Labs: CBC, BMP 05/04/18 13:30 05/04/18 13:30 Problem List - Problems (1) ESRD (end stage renal disease) Code(s): N18.6 - END STAGE RENAL DISEASE Assessment/Plan Current Medications Generic Name Dose Route Start Last Admin Trade Name Freq PRN Reason Stop Dose Admin Acetaminophen 1,000 mg 05/03/18 17:03 05/05/18 21:41 Tylenol - PO 1,000 mg Q8H PRN Administration PAIN LEVEL 6-10 Albuterol Sulfate 1 amp 05/03/18 02:32 05/06/18 11:23 Ventolin 0.083% Nebulizer Soln - NEB 1 amp Q8H PRN Administration SHORT OF BREATH/WHEEZING Budesonide/Formoterol Fumarate 2 puff 05/03/18 22:00 05/06/18 09:35 Symbicort 160/4.5mcg - IH 2 puff BID [facility] Administration Epoetin Zachery 8,000 unit 05/06/18 17:33 Procrit - IVPUSH 05/06/18 17:34 ONCE ONE Guaifenesin/Codeine Phosphate 5 ml 05/03/18 04:47 05/06/18 00:37 Robitussin Ac - PO 5 ml Q8H PRN Administration COUGH Heparin Sodium (Porcine) 5,000 unit 05/03/18 10:00 05/06/18 09:32 Heparin - SQ Not Given BID [facility] Sodium Chloride 250 mls @ 3,000 mls/hr 05/05/18 17:33 Normal Saline - IV 05/06/18 17:34 PRN PRN Hypotension during Dialysis Ibuprofen 400 mg 05/03/18 04:47 05/03/18 23:08 Motrin - PO 400 mg Q6H PRN Administration PAIN LEVEL 6-10 Lidocaine 1 patch 05/03/18 10:00 05/06/18 09:34 Lidoderm Patch - TP 1 patch DAILY [facility] Administration Lidocaine/Prilocaine 1 applic 05/04/18 09:20 05/04/18 12:34 Emla - TP 1 applic DAILY PRN Administration PAIN Melatonin 5 mg 05/03/18 04:47 05/04/18 22:43 Melatonin PO 5 mg HS PRN Administration INSOMNIA Methocarbamol 500 mg 05/03/18 04:47 05/04/18 11:29 Robaxin - PO 500 mg Q12H PRN Administration MUSCLE SPASMS Miscellaneous 1 each 05/03/18 22:00 05/05/18 21:42 Lidoderm Patch Removal MC Not Given DAILY@2200 [facility] Oxycodone HCl 5 mg 05/05/18 10:43 05/06/18 05:24 Roxicodone - PO 5 mg Q6H PRN Administration PAIN LEVEL 6-10 Prednisone 40 mg 05/06/18 10:04 Deltasone - PO DAILY [facility] Varenicline 0.5 mg 05/05/18 14:00 05/06/18 09:34 Chantix - PO 0.5 mg DAILY [facility] Administration Impression 1. ESRD 2. arm abscess 3. chronic back pain 4. anemia 5. anxiety 6. hx of nsaid use 7. chf diastolic 8. possible complex renal cyst 9. HLD 10. nephrolithiasis 11. copd Plan - HD today - d/c motrin - epogen for anemia - smoking cesstion - pt has HD set up as outpt - will follow
[2018-05-06] MEDS ORDERED: SODIUM CHLORIDE 250 ML IV PRN (14:09)
[2018-05-06] MEDS ORDERED: EPOETIN ALFA 10,000 UNIT/1 ML VIAL IVPUSH ONE (14:15)
[2018-05-06 14:40] LABS: HEMATOCRIT 22.7 % (32.4-45.2); HEMOGLOBIN 7.6 GM/dL (10.7-15.3); MCH 30.1 pg (25.7-33.7); MCHC 33.3 g/dl (32.0-36.0); MEAN CELL VOLUME 90.2 fl (80-96); MEAN PLT VOLUME 8.4 fl (7.5-11.1); PLATELET COUNT 358 K/MM3 (134-434); RBC 2.52 M/mm3 (3.60-5.2); RDW 17.3 % (11.6-15.6); WHITE BLOOD COUNT 8.7 K/mm3 (4.0-10.0)
[2018-05-06 15:31] LABS: ANION GAP 11 MMOL/L (8-16); BLOOD UREA NITROGEN 88 mg/dL (7-18); CALCIUM 7.7 mg/dL (8.5-10.1); CHLORIDE 99 mmol/L (98-107); CO2 25 mmol/L (21-32); CREATININE 3.8 mg/dL (0.55-1.3); GLUCOSE,RANDOM 128 mg/dL (74-106); POTASSIUM 3.9 mmol/L (3.5-5.1); SODIUM 135 mmol/L (136-145)
[2018-05-06 15:39] VITALS: TEMP 97.1
[2018-05-06 18:39] VITALS: BP 141/91; PULSE 104
== END 2018-05-06 19:07 | disposition home or self-care (01) | DRG 140 ==
LOC: JER 18:26 → JERBED 05-03 02:05 → OBSVTOIN 05-03 02:30 → J8W 05-03 14:19
PROVIDERS: ADMIT Internal Medicine; ATTEND Family Medicine
PROC: 3E0F7GC Introduction of Other Therapeutic Substance into Respiratory Tract, Via Natural or Artificial Opening (ICD-10-PCS; principal; 2018-05-03)
PROC: 5A1D70Z Performance of Urinary Filtration, Intermittent, Less than 6 Hours Per Day (ICD-10-PCS; 2018-05-03)
DX: J44.1 Chronic obstructive pulmonary disease with (acute) exacerbation (principal); I13.2 Hypertensive heart and chronic kidney disease with heart failure and with stage 5 chronic kidney disease, or end stage renal disease; I50.32 Chronic diastolic (congestive) heart failure; N18.6 End stage renal disease; N28.1 Cyst of kidney, acquired; G62.9 Polyneuropathy, unspecified; F03.90 Unspecified dementia, unspecified severity, without behavioral disturbance, psychotic disturbance, mood disturbance, and anxiety; Z99.2 Dependence on renal dialysis; D64.9 Anemia, unspecified; F17.210 Nicotine dependence, cigarettes, uncomplicated; M54.5 Low back pain; I25.10 Atherosclerotic heart disease of native coronary artery without angina pectoris; E78.5 Hyperlipidemia, unspecified; E03.9 Hypothyroidism, unspecified; F32.9 Major depressive disorder, single episode, unspecified; F41.9 Anxiety disorder, unspecified; Z96.653 Presence of artificial knee joint, bilateral; R91.1 Solitary pulmonary nodule; L02.419 Cutaneous abscess of limb, unspecified
CPT/HCPCS: 36415; 71045-TC-FY; 71046-TC-FY; 71250-TC; 80048; 80053; 82962; 83735; 84100; 85025; 85027; 93005; 93010; 94640; 99284-25; G0378; J0131; J0885; J1100; J1644

== ENCOUNTER 2018-05-08 10:10 | Inpatient (IN) | payer OTHER ==
[2018-05-08] MEDS ORDERED: ACETAMINOPHEN 325 MG TABLET (FP) PO ONE (10:53)
[2018-05-08] MEDS ORDERED: ACETAMINOPHEN 325 MG TABLET (FP) ONE (11:13)
--- NOTE | 2018-05-08 11:56 | PDOC ---
History of Present Illness - General Chief Complaint: Shortness of Breath Stated Complaint: RESPIRATORY DISTRESS Time Seen by Provider: 05/08/18 10:29 History Source: Patient Exam Limitations: No Limitations - History of Present Illness Initial Comments: 05/08/18 13:24 63 YOF with h/o COPD on 3L O2, asthma, CHF-diastolic heart failure, HLD, HTN, ESRD on HD, anemia, chronic back pain, kidney stones, anxiety, presenting with shortness of breath, productive cough and wheezing since last night.. poorly compliant with her medications. Missed her HD today Recently admitted for COPD exacerbation. She has been on steroids recently, not completed course yet. Denies any chest pain. No sick contacts or travel. No new changes in medications. Allergies: levaquin Past Medical History: COPD, asthma, HTN, ESRD on HD Social history: Lives with family. +smoker, on chantix. No alcohol. No illicit drugs. Surgical history: B/L hip replacement (rt 2009; left 2012) PMD: Dr Christopher MCCORMACK Constitutional: +subjective fevers, +body aches.+diaphoretic, + tired HEENT: no headache. + dizziness. No congestion. No visual/hearing disturbances. CVS: no cp or syncope. Resp: + sob. + wheezing. + productive cough with blood-tinged sputum. Gastrointestinal: no abdominal pain, nausea or vomiting. Genitourinary: no urinary sx, hematuria. MUSCULOSKELETAL: No joint pain and swelling. No neck or back pain. SKIN: no redness or skin changes, no discharge, no rash. No wounds. Hematologic: no easy bruising/bleeding. NEUROLOGIC: No headache, dizziness, LOC or altered mental status. No weakness, numbness or tingling. Allergic/Immunologic: no allergies All other systems reviewed and negative, or as documented in HPI. PE: General: Well appearing, awake and alert, NAD. HEENT: NCAT, PERRL, EOMI, clear conjunctiva, anicteric, moist mucous membranes , clear oropharynx, no oral lesions.. Neck: neck supple, FROM; no JVD Resp: bilateral wheezing diffusely, normal and even respirations, speaking full sentences CVS: RRR, no murmurs, 2+ peripheral pulses throughout, no peripheral edema Abdomen: soft, NTND, no peritoneal signs. +ecchymosis along lower abdomen, but nontender. Back: nontender, normal inspection and ROM MSK: no edema, DRAKE x4, ROM intact. No clubbing or cyanosis. normal bulk and tone. RUE AV fistula with palp thrill, nontender, no fluctuance or erythema. Extremities: RUE fistula with palpable thrill. Trace pedal edema. No calf tenderness Neuro: alert, oriented appropriately; no focal neurologic deficits Skin: warm and well perfused, cap refill <2 sec, normal color Past History - Past Medical History Allergies/Adverse Reactions: Allergies Allergy/AdvReac Type Severity Reaction Status Date / Time [facility] Allergy Mild Itching Verified 05/08/18 11:31 Home Medications: Ambulatory Orders Ibuprofen [Motrin -] 400 mg PO QID PRN #28 tablet 02/23/18 Methocarbamol [Robaxin -] 500 mg PO BID PRN #14 tablet 02/23/18 Lidocaine 5% Patch [Lidoderm -] 1 patch TP DAILY #7 patch 03/02/18 Albuterol 2.5/Ipratropium 0.5 [Duoneb -] 1 amp NEB Q6H PRN amp 03/14/18 Albuterol Sulfate Inhaler - [Ventolin HFA Inhaler -] 2 puff IH QID PRN 04/26/18 Guaifenesin AC [Robitussin AC -] 5 ml PO TID PRN #60 liquid MDD 15 ml 04/29/18 Melatonin 5 mg PO HS PRN tab 04/29/18 predniSONE [Deltasone -] 40 mg PO DAILY #10 tablet MDD 2 04/29/18 Atorvastatin Ca [Lipitor] 10 mg PO DAILY 05/05/18 Duloxetine HCl [Cymbalta] 30 mg PO DAILY 05/05/18 Gabapentin [Neurontin -] 300 mg PO TID 05/05/18 Nicotine [Nicotine Patch 14mg/24 hr] 1 each TD DAILY #30 patch.td24 05/05/18 Acetaminophen [Tylenol .Extra-Strength -] 1,000 mg PO Q8H PRN tablet 05/06/18 Amlodipine Besylate [Norvasc -] 2.5 mg PO DAILY #15 tablet 05/06/18 Budesonide/Formeterol Fumarate [SYMBICORT 160/4.5mcg -] 2 puff IH BID #1 inhaler 05/06/18 Varenicline Tartrate [Chantix -] 0.5 mg PO DAILY #30 tab 05/06/18 oxyCODONE HCL [Roxicodone -] 5 mg PO Q6H PRN #20 tablet MDD 4 05/06/18 predniSONE [Deltasone -] 40 mg PO DAILY #32 tablet 05/06/18 Anemia: Yes Asthma: Yes Cancer: No Cardiac Disorders: Yes CVA: No COPD: Yes CHF: No DVT: No Dementia: No Diabetes: No GI Disorders: Yes (bleeding ulcer) Disorders: Yes (KIDNEY STONE;) HTN: Yes Hypercholesterolemia: Yes Kidney Stones: Yes Liver Disease: No Psychiatric Problems: Yes (ANXIETY, DEPRESSION) Seizures: No Thyroid Disease: Yes (hypothyroid) - Surgical History Abdominal Surgery: No Appendectomy: No Cardiac Surgery: No Cholecystectomy: No Lung Surgery: No Neurologic Surgery: No Orthopedic Surgery: Yes (B/L hip replacement (rt 2009; left 2012)) - Immunization History Td Vaccination: Yes TDAP Vaccination: No Immunization Up to Date: Yes - Suicide/Smoking/Psychosocial Hx Smoking Status: Yes Smoking History: Never smoked Years of Tobacco Use: 30 Have you smoked in the past 12 months: No Number of Cigarettes Smoked Daily: 6 If you are a former smoker, when did you quit?: refused booklet 07/21/14 Cigars Per Day: 0 Information on smoking cessation initiated: No 'Breaking Loose' booklet given: 03/08/18 Hx Alcohol Use: No Drug/Substance Use Hx: No Substance Use Type: None Hx Substance Use Treatment: Yes Respiratory Specific PMHX - Complaint Specific PMHX Angina: No Bronchitis: Yes Pneumonia: Yes *Physical Exam - Vital Signs Last Vital Signs Temp Pulse Resp BP Pulse Ox 98.3 F 101 H 18 143/73 93 L 05/08/18 10:51 05/08/18 10:51 05/08/18 10:51 05/08/18 10:51 05/08/18 10:51 Moderate Sedation - Procedure Monitoring Vital Signs: Procedure Monitoring Vital Signs Temperature 98.3 F 05/08/18 10:51 Pulse Rate 101 H 05/08/18 10:51 Respiratory Rate 18 05/08/18 10:51 Blood Pressure 143/73 05/08/18 10:51 O2 Sat by Pulse Oximetry (%) 93 L 05/08/18 10:51 ED Treatment Course - LABORATORY CBC & Chemistry Diagram: 05/08/18 11:30 05/08/18 11:30 - RADIOLOGY Radiology Studies Ordered: Category Date Time Status CHEST X-RAY PORTABLE* [RAD] Stat Radiology 05/08/18 10:52 Completed - Medications Given in the ED: ED Medications Discontinued Medications Generic Name Dose Route Start Last Admin Trade Name Freq PRN Reason Stop Dose Admin Acetaminophen 975 mg 05/08/18 10:53 05/08/18 11:15 Tylenol - PO 05/08/18 10:54 975 mg ONCE ONE Administration Medical Decision Making - Medical Decision Making 05/08/18 12:45 See HPI for details DDx SOB: ACS, NSTEMI, angina, PE, CHF, pulmonary edema, pleurisy, pneumonia, viral syndrome. effusion. anemia, electrolyte/metabolic derangements. COPD exacerbation. Considered but clinically doubt based on HPI and PE: PE/dissection Vital signs reviewed, mild tachy. no fever, no hypoxia. on home O2 regimen Prior notes reviewed, including admissions, discharges and consultations. laboratory results and imaging reviewed, basic labs and lytes wnl, notable for chronic baseline anemia, no acute change; mild leukocytosis likely from steroid use. CXR_no acute pathology Cardiac panel_+trop 0.09, highest (always neg). EKG normal sinus rhythm, no interval abnormalities, narrow QRS, ST and T wave segments and morphology normal. Nonspecific T wave abnormalities ED course: duonebs x3, PO prednisone. ASA x1 for +trop Inpatient Nephro and cards cs, for +trop, NSTEMI/ENDY and HD today (missed dose) spoke wwith Dr Zheng, admit tele to r/o ACS, HD and copd tx. however due to noncompliance, Dr Marie declined admission and requests hospitalist team management due to poor compliance and no longer to see. admit to Dr Cruz for management as discussed 05/08/18 13:25 05/08/18 13:30 *DC/Admit/Observation/Transfer Diagnosis at time of Disposition: COPD exacerbation, NSTEMI (non-ST elevated myocardial infarction), ESRD on dialysis - Discharge Dispostion Condition at time of disposition: Guarded Decision to Admit order: Yes Decision to Admit order Date/Time: 05/08/18 12:54 Decision to Admit Order Category Date Time Status Decision to Admit to Hospital Routine Admission 05/08/18 12:52 Active - Referrals - Patient Instructions - Post Discharge Activity - Attestations Physician Attestion: 05/08/18 12:44 I, Megan Sneed MD, attest that this document has been prepared under my direction and personally reviewed by me in its entirety. I further attest, that it accurately reflects all work, treatment, procedures and medical decision -making performed by me.
[2018-05-08 12:07] LABS: BASO % 0.5 % (0-2.0); EOS % 3.8 % (0-4.5); HEMATOCRIT 24.8 % (32.4-45.2); HEMOGLOBIN 8.1 GM/dL (10.7-15.3); MCH 29.5 pg (25.7-33.7); MCHC 32.8 g/dl (32.0-36.0); MEAN CELL VOLUME 90.1 fl (80-96); MEAN PLT VOLUME 7.9 fl (7.5-11.1); MONO % 7.1 % (3.8-10.2); NEUT % 77.6 % (42.8-82.8); PLATELET COUNT 406 K/MM3 (134-434); RBC 2.76 M/mm3 (3.60-5.2); RDW 17.7 % (11.6-15.6); WHITE BLOOD COUNT 11.4 K/mm3 (4.0-10.0)
[2018-05-08 12:34] LABS: INR 1.13 (0.83-1.09); PROTHROMBIN TIME (PATIENT) 13.4 SEC (9.7-13.0)
[2018-05-08] MEDS ORDERED: MAGNESIUM SULF 50% (8.12 MEQ/2 ML-1 GM VIAL) IVPB ONE (12:37)
[2018-05-08 12:41] LABS: ALBUMIN 3.3 g/dl (3.4-5.0); ALK PHOS 203 U/L (45-117); ANION GAP 12 MMOL/L (8-16); BILIRUBIN,TOTAL 0.6 mg/dL (0.2-1); BLOOD UREA NITROGEN 69 mg/dL (7-18); CALCIUM 8.4 mg/dL (8.5-10.1); CHLORIDE 101 mmol/L (98-107); CO2 24 mmol/L (21-32); GLUCOSE,RANDOM 103 mg/dL (74-106); SGOT/AST 22 U/L (15-37); SGPT/ALT 47 U/L (13-61); SODIUM 136 mmol/L (136-145); TOT PROT 6.2 g/dl (6.4-8.2)
[2018-05-08] MEDS: ALBUTEROL SO4 2.5/IPRATROPIUM 0.5 INH SOL 3 ML VIAL.NEB. NEB SCH ×4 (13:04→15:59)
[2018-05-08] MEDS ORDERED: MAGNESIUM 1GM/D5W - 2 GM/200 ML IVPB IVPB ONE (13:04)
[2018-05-08] MEDS ORDERED: ALBUTEROL SO4 2.5/IPRATROPIUM 0.5 INH SOL 3 ML VIAL.NEB. NEB ONE (13:05)
--- NOTE | 2018-05-08 14:38 | EKG ---
Test Reason : Blood Pressure : / mmHG Vent. Rate : 090 BPM Atrial Rate : 090 BPM P-R Int : 150 ms QRS Dur : 078 ms QT Int : 358 ms P-R-T Axes : 046 -19 052 degrees QTc Int : 437 ms SINUS RHYTHM WITH MARKED SINUS ARRHYTHMIA MINIMAL VOLTAGE CRITERIA FOR LVH, MAY BE NORMAL VARIANT ANTERIOR INFARCT , AGE UNDETERMINED ABNORMAL ECG WHEN COMPARED WITH ECG OF 03-MAY-2018 15:49, NO SIGNIFICANT CHANGE WAS FOUND Confirmed by SCAR PATTERSON MD ([id number]) on 05/08/2018 2:37:50 PM Referred By: Confirmed By:SCAR PATTERSON MD
[2018-05-08] MEDS ORDERED: ALBUTEROL SO4 0.083% IH SOL 2.5 MG/3 ML VIAL.NEB. NEB ONE (15:53)
[2018-05-08] MEDS ORDERED: SODIUM CHLORIDE 250 ML IV PRN (16:04)
[2018-05-08] MEDS ORDERED: EPOETIN ALFA 10,000 UNIT/1 ML VIAL IVPUSH ONE (16:04)
--- NOTE | 2018-05-08 16:11 | CONSULT ---
Consult Consult Specialty:: Nephrology Reason for Consultation:: ESRD - History of Present Illness Chief Complaint: cough and wheeze History of Present Illness: Pt is a 63 year old female with pmhx of esrd and anemia who presents with wheeze. She was discharged. She is also complaining of cough. She missed her HD session today. She denies chest pain. 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 No: Pulmonary Embolus, Pulmonary Fibrosis, Sleep Apnea Gastrointestinal: Yes: Gastritis Renal/: Yes: Renal Inusuff, Hemodialysis ...LMP: 07/25/12 Infectious Disease: Yes: MRSA Psych: Yes: Anxiety, Depression Musculoskeletal: Yes: Chronic low back pain Endocrine: Yes: Hyperthyroidism - Past Surgical History Past Surgical History: Yes: AV Fistula/Graft, Joint Replacement (hip replacement ) - Alcohol/Substance Use Hx Alcohol Use: No History of Substance Use: reports: Marijuana - Smoking History Smoking history: Never smoked Have you smoked in the past 12 months: No Aproximately how many cigarettes per day: 6 If you are a former smoker, when did you quit?: refused booklet 07/21/14 - Social History Usual Living Arrangement: Alone ADL: Independent Occupation: not working, SSI History of Recent Travel: No Home Medications - Allergies Allergies/Adverse Reactions: Allergies Allergy/AdvReac Type Severity Reaction Status Date / Time levofloxacin [From Levaquin] Allergy Mild Itching Verified 05/08/18 11:31 - Home Medications Home Medications: Ambulatory Orders Ibuprofen [Motrin -] 400 mg PO QID PRN #28 tablet 02/23/18 Methocarbamol [Robaxin -] 500 mg PO BID PRN #14 tablet 02/23/18 Lidocaine 5% Patch [Lidoderm -] 1 patch TP DAILY #7 patch 03/02/18 Albuterol 2.5/Ipratropium 0.5 [Duoneb -] 1 amp NEB Q6H PRN amp 03/14/18 Albuterol Sulfate Inhaler - [Ventolin HFA Inhaler -] 2 puff IH QID PRN 04/26/18 Guaifenesin AC [Robitussin AC -] 5 ml PO TID PRN #60 liquid MDD 15 ml 04/29/18 Melatonin 5 mg PO HS PRN tab 04/29/18 predniSONE [Deltasone -] 40 mg PO DAILY #10 tablet MDD 2 04/29/18 Atorvastatin Ca [Lipitor] 10 mg PO DAILY 05/05/18 Duloxetine HCl [Cymbalta] 30 mg PO DAILY 05/05/18 Gabapentin [Neurontin -] 300 mg PO TID 05/05/18 Nicotine [Nicotine Patch 14mg/24 hr] 1 each TD DAILY #30 patch.td24 05/05/18 Acetaminophen [Tylenol .Extra-Strength -] 1,000 mg PO Q8H PRN tablet 05/06/18 Amlodipine Besylate [Norvasc -] 2.5 mg PO DAILY #15 tablet 05/06/18 Budesonide/Formeterol Fumarate [SYMBICORT 160/4.5mcg -] 2 puff IH BID #1 inhaler 05/06/18 Varenicline Tartrate [Chantix -] 0.5 mg PO DAILY #30 tab 05/06/18 oxyCODONE HCL [Roxicodone -] 5 mg PO Q6H PRN #20 tablet MDD 4 05/06/18 predniSONE [Deltasone -] 40 mg PO DAILY #32 tablet 05/06/18 Family Disease History - Family Disease History Family Disease History: Other: Father (alive), Mother (alive), Sister (alive), Son (23 yo old - alive - healthy) Review of Systems - Review of Systems Constitutional: reports: Malaise. denies: Chills, Fever Eyes: reports: No Symptoms HENT: reports: No Symptoms Neck: reports: No Symptoms Cardiovascular: reports: Edema Respiratory: reports: Wheezing Gastrointestinal: reports: No Symptoms Genitourinary: reports: No Symptoms Musculoskeletal: reports: No Symptoms Integumentary: reports: No Symptoms Neurological: reports: No Symptoms Endocrine: reports: No Symptoms Hematology/Lymphatic: reports: No Symptoms Physical Exam Vital Signs: Vital Signs Temperature 98.3 F 05/08/18 10:51 Pulse Rate 101 H 05/08/18 10:51 Respiratory Rate 18 05/08/18 10:51 Blood Pressure 143/73 05/08/18 10:51 O2 Sat by Pulse Oximetry (%) 93 L 05/08/18 10:51 Constitutional: Yes: Calm Eyes: Yes: Conjunctiva Clear HENT: Yes: Atraumatic Neck: Yes: Supple Cardiovascular: Yes: S1, S2 Respiratory: Yes: Wheezes Gastrointestinal: Yes: Soft Musculoskeletal: Yes: WNL Edema: Yes Edema: LLE: 1+, RLE: 1+ Neurological: Yes: Oriented Labs: CBC, BMP 05/08/18 11:30 05/08/18 11:30 Imaging - Results Chest X-ray: Report Reviewed Problem List - Problems (1) COPD exacerbation Code(s): J44.1 - CHRONIC OBSTRUCTIVE PULMONARY DISEASE W (ACUTE) EXACERBATION (2) ESRD (end stage renal disease) on dialysis Code(s): N18.6 - END STAGE RENAL DISEASE; Z99.2 - DEPENDENCE ON RENAL DIALYSIS Assessment/Plan Current Medications Generic Name Dose Route Start Last Admin Trade Name Freq PRN Reason Stop Dose Admin Epoetin Zachery 10,000 unit 05/08/18 16:04 Epogen - IVPUSH 05/08/18 16:05 ONCE ONE Sodium Chloride 250 mls @ 3,000 mls/hr 05/08/18 16:04 Normal Saline - IV 05/09/18 16:04 PRN PRN Hypotension during Dialysis Prednisone 50 mg 05/09/18 10:00 Deltasone - PO 05/09/18 10:01 ONCE ONE Impression 1. ESRD 2. wheezing 3. chronic back pain 4. anemia 5. anxiety 6. hx of nsaid use 7. chf diastolic 8. possible complex renal cyst 9. HLD 10. nephrolithiasis 11. copd Plan - will arrange for HD today - cont steroids - rsp treatments - epogen for anemia - will follow
[2018-05-08] MEDS ORDERED: ACETAMINOPHEN 1000 MG/100 ML VIAL (NON FORMULARY) IVPB ONE (16:15)
[2018-05-08] MEDS ORDERED: ACETAMINOPHEN INJECTION 100 ML IVPB ONE (16:17)
[2018-05-08] MEDS ORDERED: oxyCODONE HCL 5 MG TABLET PO ONE ×2 (16:29→19:51)
[2018-05-08] MEDS ORDERED: oxyCODONE HCL 5 MG TABLET ONE (16:32)
--- NOTE | 2018-05-08 20:24 | HP ---
CHIEF COMPLAINT:shortness of breath PCP:DR Marie HISTORY OF PRESENT ILLNESS: 63 y/o female with PMH of COPD on home 02 3L, asthma, CHF, HLD, HTN, ESRD on HD , chronic back pain, asthma presents to the ED with worsening shortness of breath associated with cough and increased thick yellow/green sputum for the past few days. Of note she was recently hospitalized for another COPD exacerbation. She has had multiple admissions in the past for COPD exacerbations. Of note, she also missed her scheduled HD session. She denies any sick contacts at home, any recent travel . She usually sleeps with 3 pillows at night and can only walk a few blocks before getting dyspneic. ER course was notable for: (1)wbc 11.4, troponin 0.09 (given aspirin X1) (2)given 4 rounds of duonebs, prednisone 50 X1 (3) CXR no new infiltrates; mild bibasilar changes Recent Travel: none PAST MEDICAL HISTORY: see above PAST SURGICAL HISTORY: b/L hip replacements; gong for cataract surgery next month Social History: Smokin pack year smoking history Alcohol:denies Drugs: denies Family History:denies Allergies NKDA levofloxacin [From Levaquin] Allergy (Mild, Verified 05/08/18 11:31) Itching HOME MEDICATIONS: Home Medications Medication Instructions Recorded Ibuprofen [Motrin -] 400 mg PO QID PRN #28 tablet 02/23/18 Methocarbamol [Robaxin -] 500 mg PO BID PRN #14 tablet 02/23/18 Lidocaine 5% Patch [Lidoderm -] 1 patch TP DAILY #7 patch 03/02/18 Albuterol 2.5/Ipratropium 0.5 1 amp NEB Q6H PRN amp 03/14/18 [Duoneb -] Albuterol Sulfate Inhaler - 2 puff IH QID PRN 04/26/18 [Ventolin HFA Inhaler -] Guaifenesin AC [Robitussin AC -] 5 ml PO TID PRN #60 liquid MDD 15 04/29/18 ml Melatonin 5 mg PO HS PRN tab 04/29/18 predniSONE [Deltasone -] 40 mg PO DAILY #10 tablet MDD 2 04/29/18 Atorvastatin Ca [Lipitor] 10 mg PO DAILY 05/05/18 Duloxetine HCl [Cymbalta] 30 mg PO DAILY 05/05/18 Gabapentin [Neurontin -] 300 mg PO TID 05/05/18 Nicotine [Nicotine Patch 14mg/24 1 each TD DAILY #30 patch.td24 05/05/18 hr] Acetaminophen [Tylenol 1,000 mg PO Q8H PRN tablet 05/06/18 .Extra-Strength -] Amlodipine Besylate [Norvasc -] 2.5 mg PO DAILY #15 tablet 05/06/18 Budesonide/Formeterol Fumarate 2 puff IH BID #1 inhaler 05/06/18 [SYMBICORT 160/4.5mcg -] Varenicline Tartrate [Chantix -] 0.5 mg PO DAILY #30 tab 05/06/18 oxyCODONE HCL [Roxicodone -] 5 mg PO Q6H PRN #20 tablet MDD 4 05/06/18 predniSONE [Deltasone -] 40 mg PO DAILY #32 tablet 05/06/18 REVIEW OF SYSTEMS CONSTITUTIONAL: Absent: fever, chills, diaphoresis, generalized weakness, malaise, loss of appetite, weight change HEENT: Absent: rhinorrhea, nasal congestion, throat pain, throat swelling, difficulty swallowing, mouth swelling, ear pain, eye pain, visual changes CARDIOVASCULAR: Present: palpitations Absent: chest pain, syncope, , irregular heart rate, lightheadedness, peripheral edema RESPIRATORY: Present: cough, shortness of breath, dyspnea with exertion Absent: orthopnea, wheezing, stridor, hemoptysis GASTROINTESTINAL: Absent: abdominal pain, abdominal distension, nausea, vomiting, diarrhea, constipation, melena, hematochezia GENITOURINARY: Absent: dysuria, frequency, urgency, hesitancy, hematuria, flank pain, genital pain MUSCULOSKELETAL: Present: myalgia Absent: arthralgia, joint swelling, back pain, neck pain SKIN: Absent: rash, itching, pallor HEMATOLOGIC/IMMUNOLOGIC: Absent: easy bleeding, easy bruising, lymphadenopathy, frequent infections ENDOCRINE: Absent: unexplained weight gain, unexplained weight loss, heat intolerance, cold intolerance NEUROLOGIC: Absent: headache, focal weakness or paresthesias, dizziness, unsteady gait, seizure, mental status changes, bladder or bowel incontinence PSYCHIATRIC: Present: anxiety Absent: depression, suicidal or homicidal ideation, hallucinations. PHYSICAL EXAMINATION Vital Signs - 24 hr 05/08/18 05/08/18 05/08/18 10:10 10:51 15:30 Temperature 98.5 F 98.3 F Pulse Rate 120 H Pulse Rate [ 101 H 92 H Apical] Respiratory 18 18 16 Rate Blood Pressure 143/73 Blood Pressure 143/73 124/86 [Left Arm] O2 Sat by Pulse 95 93 L 96 Oximetry (%) 05/08/18 05/08/18 05/08/18 17:30 17:45 18:15 Temperature 98 F Pulse Rate 92 H 80 99 H Pulse Rate [ Apical] Respiratory 18 18 18 Rate Blood Pressure 143/73 134/69 136/71 Blood Pressure [Left Arm] O2 Sat by Pulse Oximetry (%) 05/08/18 05/08/18 05/08/18 18:43 19:15 19:45 Temperature Pulse Rate 102 H 86 113 H Pulse Rate [ Apical] Respiratory 18 18 18 Rate Blood Pressure 137/74 124/53 L 114/58 L Blood Pressure [Left Arm] O2 Sat by Pulse Oximetry (%) 05/08/18 20:15 Temperature Pulse Rate 100 H Pulse Rate [ Apical] Respiratory 18 Rate Blood Pressure 124/81 Blood Pressure [Left Arm] O2 Sat by Pulse Oximetry (%) GENERAL: Awake, alert, and fully oriented, in no acute distress.. EYES: EOMI; PEERLA, no scleral icterus NECK: no JVD, no lymphadenopathy. LUNGS:wheezing and rhonchi B/L; decreased air entry HEART: Regular rate and rhythm, normal S1 and S2 without murmur, rub or gallop. ABDOMEN: Soft, nontender, not distended, normoactive bowel sounds, no guarding, no rebound, no masses. No hepatomegaly or splenomegaly. MUSCULOSKELETAL: Normal range of motion at all joints. No bony deformities or tenderness. No CVA tenderness. EXTREMITIES: warm; well-perfused; no clubbing/cyanosis trace edema. NEUROLOGICAL: Cranial nerves II-XII intact. Normal speech. Normal gait. PSYCHIATRIC: Cooperative. Good eye contact. Appropriate mood and affect. SKIN: Warm, dry, normal turgor, no rashes or lesions noted, normal capillary refill. Laboratory Results - last 24 hr 05/08/18 05/08/18 05/08/18 11:30 11:30 11:30 WBC 11.4 H RBC 2.76 L Hgb 8.1 L Hct 24.8 L MCV 90.1 MCH 29.5 MCHC 32.8 RDW 17.7 H Plt Count 406 MPV 7.9 Absolute Neuts (auto) 8.8 H Neutrophils % 77.6 Lymphocytes % 11.0 D Monocytes % 7.1 symEosinophils % 3.8 D Basophils % 0.5 Nucleated RBC % 0 PT with INR 13.40 H INR 1.13 H Sodium 136 Potassium 4.0 Chloride 101 Carbon Dioxide 24 Anion Gap 12 BUN 69 H Creatinine 4.0 H Creat Clearance w eGFR 11.38 Random Glucose 103 Calcium 8.4 L Magnesium 2.0 Total Bilirubin 0.6 AST 22 ALT 47 Alkaline Phosphatase 203 H Troponin I 0.09 H Total Protein 6.2 L Albumin 3.3 L ASSESSMENT/PLAN: 63 y/o female with PMH of COPD on home 02, CHF, HTN, HLD, ESRD on HD, chronic back pain presents to the ED with worsening shortness of breath and cough with increased sputum , having also missed scheduled HD. # COPD Exacerbation -duonebs standing and PRN -albuterol PRN -solumedrol 40 q8H -azithromycin -monitor o2 saturations -maintain sp02 above 90 #ESRD patient received HD today -Dr. Gilbert consulted -monitor electrolytes and urine output -patient received epogen today for anemia 2/2 chronic disease #elevated troponin likely 2/2 demand ischemia as patient not having chest pain and no EKG changes -received ASA X1 -trend troponins #HTN -c/w amlodipine and HCTZ #HLD -c/w lipitor 40 daily #Chronic pain -c/w gabapentin 300 TID #Smoking -c/w chantix F/E/N not on fluids monitor electrolytes renal diet Problem List - Problem (1) COPD exacerbation Code(s): J44.1 - CHRONIC OBSTRUCTIVE PULMONARY DISEASE W (ACUTE) EXACERBATION (2) ESRD (end stage renal disease) on dialysis Code(s): N18.6 - END STAGE RENAL DISEASE; Z99.2 - DEPENDENCE ON RENAL DIALYSIS Visit type - Emergency Visit Emergency Visit: Yes ED Registration Date: 05/08/18 Care time: The patient presented to the Emergency Department on the above date and was hospitalized for further evaluation of their emergent condition. - New Patient This patient is new to me today: Yes Date on this admission: 05/08/18 - Critical Care Critical Care patient: No
[2018-05-08] MEDS ORDERED: AZITHROMYCIN 250 MG TABLET PO ONE (20:53)
--- NOTE | 2018-05-08 22:03 | PN ---
Teaching Attending Note Name of Resident: Sangita Rae ATTENDING PHYSICIAN STATEMENT I saw and evaluated the patient. I reviewed the resident's note and discussed the case with the resident. I agree with the resident's findings and plan as documented. SUBJECTIVE: This is a 63 year old woman with a history of chronic hypoxic respiratory failure, COPD, chronic diastolic heart failure, HTN, hyperlipidemia , hypothyroidism, ESRD, GERD, depression, anxiety, iron deficiency anemia, peripheral neuropathy, ovarian cancer, chronic back pain who comes to the ED complaining of shortness of breath and productive cough. She had been admitted on 05/03 for COPD exacerbation. She was treated with Symbicort, Prednisone, albuterol nebs. She was going to be discharged to short term rehab but she refused the one facility which accepted her. So she was discharged home on . She says that she did not feel better at that time, and since returning home , she feels that she has been worsening. She also missed HD today. OBJECTIVE: Vital Signs Period Temp Pulse Resp BP Sys/Bills Pulse Ox Last 24 Hr 98 F-98.5 F 80-120 16-18 114-143/53-86 93-96 HEART: S1S2, RRR LUNGS: Bilateral rhonchi and expiratory wheezes ABDOMEN: Soft, non-tender, non-distended, normal BS EXTREMITIES: No edema Laboratory Tests 05/08/18 05/08/18 05/08/18 11:30 11:30 11:30 WBC 11.4 H RBC 2.76 L Hgb 8.1 L Hct 24.8 L MCV 90.1 MCH 29.5 MCHC 32.8 RDW 17.7 H Plt Count 406 MPV 7.9 Absolute Neuts (auto) 8.8 H Neutrophils % 77.6 Lymphocytes % 11.0 D Monocytes % 7.1 Eosinophils % 3.8 D Basophils % 0.5 Nucleated RBC % 0 PT with INR 13.40 H INR 1.13 H Sodium 136 Potassium 4.0 Chloride 101 Carbon Dioxide 24 Anion Gap 12 BUN 69 H Creatinine 4.0 H Creat Clearance w eGFR 11.38 Random Glucose 103 Calcium 8.4 L Magnesium 2.0 Total Bilirubin 0.6 AST 22 ALT 47 Alkaline Phosphatase 203 H Troponin I 0.09 H Total Protein 6.2 L Albumin 3.3 L 05/08/18 19:20 WBC RBC Hgb Hct MCV MCH MCHC RDW Plt Count MPV Absolute Neuts (auto) Neutrophils % Lymphocytes % Monocytes % Eosinophils % Basophils % Nucleated RBC % PT with INR INR Sodium Potassium Chloride Carbon Dioxide Anion Gap BUN Creatinine Creat Clearance w eGFR Random Glucose Calcium Magnesium Total Bilirubin AST ALT Alkaline Phosphatase Troponin I 0.07 H Total Protein Albumin Home Medications Medication Instructions Recorded Ibuprofen [Motrin -] 400 mg PO QID PRN #28 tablet 02/23/18 Methocarbamol [Robaxin -] 500 mg PO BID PRN #14 tablet 02/23/18 Lidocaine 5% Patch [Lidoderm -] 1 patch TP DAILY #7 patch 03/02/18 Albuterol 2.5/Ipratropium 0.5 1 amp NEB Q6H PRN amp 03/14/18 [Duoneb -] Albuterol Sulfate Inhaler - 2 puff IH QID PRN 04/26/18 [Ventolin HFA Inhaler -] Guaifenesin AC [Robitussin AC -] 5 ml PO TID PRN #60 liquid MDD 15 04/29/18 ml Melatonin 5 mg PO HS PRN tab 04/29/18 predniSONE [Deltasone -] 40 mg PO DAILY #10 tablet MDD 2 04/29/18 Atorvastatin Ca [Lipitor] 10 mg PO DAILY 05/05/18 Duloxetine HCl [Cymbalta] 30 mg PO DAILY 05/05/18 Gabapentin [Neurontin -] 300 mg PO TID 05/05/18 Nicotine [Nicotine Patch 14mg/24 1 each TD DAILY #30 patch.td24 05/05/18 hr] Acetaminophen [Tylenol 1,000 mg PO Q8H PRN tablet 05/06/18 .Extra-Strength -] Amlodipine Besylate [Norvasc -] 2.5 mg PO DAILY #15 tablet 05/06/18 Budesonide/Formeterol Fumarate 2 puff IH BID #1 inhaler 05/06/18 [SYMBICORT 160/4.5mcg -] Varenicline Tartrate [Chantix -] 0.5 mg PO DAILY #30 tab 05/06/18 oxyCODONE HCL [Roxicodone -] 5 mg PO Q6H PRN #20 tablet MDD 4 05/06/18 predniSONE [Deltasone -] 40 mg PO DAILY #32 tablet 05/06/18 ASSESSMENT AND PLAN: This is a 63 year old woman with a history of chronic hypoxic respiratory failure, COPD, chronic diastolic heart failure, HTN, hyperlipidemia, hypothyroidism, ESRD, GERD, depression, anxiety, iron deficiency anemia, peripheral neuropathy, ovarian cancer, chronic back pain who presented to the ED with shortness of breath and productive cough, two days after she was discharged from the hospital where she was treated for COPD exacerbation. 1. Acute exacerbation of COPD - Failed treatment with oral Prednisone - Continue Symbicort - Start SoluMedrol, Zithromax, DuoNeb, albuterol nebs as needed 2. Elevated troponin, likely demand ischemia - Monitor on telemetry - Monitor troponin 3. Chronic hypoxic respiratory failure - Oxygen to maintain saturation >90% 4. Chronic diastolic heart failure - No evidence of acute heart failure 5. HTN - Continue Norvasc, HCTZ 6. Hyperlipidemia - Continue Lipitor 7. Hypothyroidism - On no medications - Last available TSH was 0.92 from 11/2017 - Check TSH 8. ESRD - HD as per nephrology 9. GERD 10. Depression with anxiety - Continue Cymbalta 11. Anemia secondary to iron deficiency and CKD - Hemoglobin is stable - Epogen with HD 12. Peripheral neuropathy - Continue Neurontin 13. Chronic back pain - Continue Neurontin, Cymbalta, Lidoderm patch, oxycodone as needed 14. Nicotine dependence - Continue Chantix
[2018-05-08] MEDS: HEPARIN NA (PORCINE) 5,000 UNITS/ML 1ML VIAL SQ SCH (22:11)
[2018-05-08] MEDS: GABAPENTIN 300 MG CAPSULE (FP) PO SCH (22:11)
[2018-05-08] MEDS: methylPREDNISolone NA SUCC 40 MG/1 ML VIAL IVPUSH SCH (22:12)
[2018-05-08] MEDS: BUDESONIDE/FORMETEROL FUMARATE 160/4.5 mcg INHALER IH SCH (22:17)
[2018-05-08] MEDS: MELATONIN 5 MG TABLETS PO PRN (22:24)
[2018-05-08] MEDS: LIDOCAINE PATCH REMOVAL MC SCH (22:40)
[2018-05-09 00:52] VITALS: BMI 24.7
[2018-05-09] MEDS: methylPREDNISolone NA SUCC 40 MG/1 ML VIAL IVPUSH SCH ×3 (02:18→18:12)
[2018-05-09] MEDS: guaiFENesin/D-METHORPHAN HB 10 ML UNIT-DOSE CUPS PO PRN (02:18)
[2018-05-09] MEDS: GABAPENTIN 300 MG CAPSULE (FP) PO SCH ×3 (06:33→21:18)
[2018-05-09] MEDS: HEPARIN NA (PORCINE) 5,000 UNITS/ML 1ML VIAL SQ SCH ×3 (06:33→21:18)
[2018-05-09] MEDS: oxyCODONE HCL 5 MG TABLET PO PRN ×3 (06:35→22:07)
[2018-05-09 07:55] LABS: HEMATOCRIT 24.2 % (32.4-45.2); HEMOGLOBIN 8.2 GM/dL (10.7-15.3); MCH 30.6 pg (25.7-33.7); MCHC 33.9 g/dl (32.0-36.0); MEAN CELL VOLUME 90.1 fl (80-96); MEAN PLT VOLUME 8.1 fl (7.5-11.1); PLATELET COUNT 357 K/MM3 (134-434); RBC 2.69 M/mm3 (3.60-5.2); RDW 17.6 % (11.6-15.6)
[2018-05-09 08:36] LABS: ALBUMIN 3.1 g/dl (3.4-5.0); ALK PHOS 209 U/L (45-117); ANION GAP 10 MMOL/L (8-16); BILIRUBIN,TOTAL 0.6 mg/dL (0.2-1); BLOOD UREA NITROGEN 29 mg/dL (7-18); CALCIUM 8.3 mg/dL (8.5-10.1); CHLORIDE 100 mmol/L (98-107); CO2 29 mmol/L (21-32); CREATININE 2.4 mg/dL (0.55-1.3); GLUCOSE,RANDOM 156 mg/dL (74-106); PHOSPHOROUS 4.9 mg/dL (2.5-4.9); POTASSIUM 3.6 mmol/L (3.5-5.1); SGOT/AST 13 U/L (15-37); SGPT/ALT 40 U/L (13-61); SODIUM 139 mmol/L (136-145); TOT PROT 6.2 g/dl (6.4-8.2)
[2018-05-09] MEDS: ALBUTEROL SO4 2.5/IPRATROPIUM 0.5 INH SOL 3 ML VIAL.NEB. NEB SCH ×4 (08:43→22:15)
[2018-05-09] MEDS ORDERED: PT OWN MED DRAWER 7, Y5N ONE (09:22)
[2018-05-09] MEDS ORDERED: predniSONE 20 MG TABLET (UD) PO ONE (10:00)
[2018-05-09] MEDS ORDERED: LIDOCAINE 5% TOPICAL PATCH TP SCH (10:00)
[2018-05-09] MEDS: HYDROCHLOROTHIAZIDE 12.5 MG CAPSULE (FP) PO SCH (10:11)
[2018-05-09] MEDS: amLODIPine BESYLATE 2.5 MG TABLET (FP) PO SCH (10:11)
[2018-05-09] MEDS: VARENICLINE TARTRATE 0.5 MG TAB PO SCH (10:11)
[2018-05-09] MEDS: BUDESONIDE/FORMETEROL FUMARATE 160/4.5 mcg INHALER IH SCH ×2 (10:12→21:22)
[2018-05-09] MEDS: AZITHROMYCIN 250 MG TABLET PO SCH (10:12)
[2018-05-09] MEDS ORDERED: LORazepam 1 MG TABLET PO ONE (10:46)
[2018-05-09] MEDS: ACETAMINOPHEN 325 MG TABLET (FP) PO PRN ×3 (11:36→22:08)
--- NOTE | 2018-05-09 11:50 | PN ---
Progress Note (short form) - Note Progress Note: PULMONARY CONSULTATION DICTATED 05/09/18 IMP ASTHMA/COPD EXACERBATION ESRD ON HD DIASTOLIC HF HTN HLD ANXIETY RENAL STONES ANEMIA NON-COMPLIANCE TOBACCO ABUSE HEMOPTYSIS LUNG NODULE PLAN IV STEROIDS INHALED BRONCHODILATORS O2 ABX MONITOR PEAK FLOW HD PER RENAL COMPLIANCE WITH MEDS SMOKING CESSATION COUNSELED PET SCAN OUTPATIENT DR CHILDS Problem List - Problems (1) COPD exacerbation Code(s): J44.1 - CHRONIC OBSTRUCTIVE PULMONARY DISEASE W (ACUTE) EXACERBATION (2) ESRD (end stage renal disease) on dialysis Code(s): N18.6 - END STAGE RENAL DISEASE; Z99.2 - DEPENDENCE ON RENAL DIALYSIS (3) Anemia Code(s): D64.9 - ANEMIA, UNSPECIFIED (4) ESRD (end stage renal disease) Code(s): N18.6 - END STAGE RENAL DISEASE (5) Emphysema lung Code(s): J43.9 - EMPHYSEMA, UNSPECIFIED (6) Hemoptysis Code(s): R04.2 - HEMOPTYSIS (7) Hyperlipidemia Code(s): E78.5 - HYPERLIPIDEMIA, UNSPECIFIED (8) Hyperthyroidism Code(s): E05.90 - THYROTOXICOSIS, UNSP WITHOUT THYROTOXIC CRISIS OR STORM (9) Smoker unmotivated to quit Code(s): F17.200 - NICOTINE DEPENDENCE, UNSPECIFIED, UNCOMPLICATED (10) Anxiety and depression Code(s): F41.8 - OTHER SPECIFIED ANXIETY DISORDERS (11) Back pain Code(s): M54.9 - DORSALGIA, UNSPECIFIED Qualifiers: Back pain location: low back pain Chronicity: chronic Back pain laterality: right Sciatica presence: without sciatica Qualified Code(s): M54.5 - Low back pain; G89.29 - Other chronic pain (12) CHF (congestive heart failure) Code(s): I50.9 - HEART FAILURE, UNSPECIFIED (13) Nicotine dependence Code(s): F17.200 - NICOTINE DEPENDENCE, UNSPECIFIED, UNCOMPLICATED Qualifiers: Nicotine product type: cigarettes Substance use status: uncomplicated Qualified Code(s): F17.210 - Nicotine dependence, cigarettes, uncomplicated
--- NOTE | 2018-05-09 12:46 | CONS ---
DATE OF CONSULTATION: 05/09/2018 PULMONARY CONSULTATION REFERRING PHYSICIAN: Froylan Asencio MD Patient is a 63-year-old female known to me in previous hospitalization with advanced COPD on home O2, asthma, diastolic heart failure, hypertension, end-stage renal disease on hemodialysis, hypertension, anemia, chronic back pain, renal stones, anxiety, admitted to [facility] on May 08 with increased shortness of breath, cough, sputum production. Patient was recently admitted on May 03 to May 08 for COPD exacerbation. She was discharged home on p.o. prednisone for which she has not completed the course and presented back to the emergency room with complaints. Patient denies any fever, chills, nausea, vomiting, or diaphoresis. On admission, she was placed on IV steroids and inhaled bronchodilators. She has a history of tobacco use and still smoking a few cigarettes a day. There is no history of recent travel. There is no history of respiratory failure in the past or ventilatory support. PAST MEDICAL HISTORY: Includes COPD, asthma, on O2 at 3 L, diastolic heart failure, hypertension, hyperlipidemia, end-stage renal disease on hemodialysis, anemia, chronic back pain, kidney stones, anxiety. REVIEW OF SYSTEMS: Positive for cough. Positive blood-tinged sputum. Positive shortness of breath. Positive wheezing. No chest pain. No palpitation. No nausea. No vomiting. No lower extremity edema. CURRENT MEDICATIONS: Include Lidoderm, Symbicort 160/4.5, Solu-Medrol 40 , Tylenol, Zithromax, heparin, Neurontin, Robitussin, Chantix, albuterol, and DuoNeb, Norvasc, sodium chloride, Lipitor, Roxicodone, melatonin, hydrochlorothiazide. PHYSICAL EXAMINATION: General: Patient is a well-developed, well-nourished female, awake, alert, in no acute distress. Vital Signs: She is afebrile, blood pressure is 148/70, respiratory rate is 20, and O2 saturation is 96% on 2 L, heart rate is 94. HEENT: Exam is normocephalic, atraumatic. Neck: Supple. Heart: Regular, S1, S2. Chest: Bilateral rhonchi and wheezes. Abdomen: Soft. Bowel sounds positive. Extremities: No cyanosis or edema. LABORATORIES: WBC is 9.0, hemoglobin 8.2, hematocrit 24.2, platelet count 357,000. Chemistry: BUN 29, creatinine 2.4. Chest x-ray: No infiltrates and no effusions. IMPRESSION: 1. Chronic obstructive pulmonary disease with acute exacerbation. 2. End-stage renal disease on hemodialysis. 3. Diabetes mellitus. 4. Diastolic heart failure. 5. Anxiety. 7. Anemia. 8. Chronic back pain. 9. Kidney stones. 10. Hypertension. 11. Hyperlipidemia. PLAN: IV steroids. Inhaled bronchodilators. Supplement O2. Chest PT. Antibiotics. Monitor peak flow. Hemodialysis as per Renal. JERRELL CHILDS M.D. [id number]
--- NOTE | 2018-05-09 12:51 | PN ---
Teaching Attending Note Name of Resident: Uvaldo Alba ATTENDING PHYSICIAN STATEMENT I saw and evaluated the patient. I reviewed the resident's note and discussed the case with the resident. I agree with the resident's findings and plan as documented. SUBJECTIVE: Tearful, hysterical, yelling, cursing. OBJECTIVE: Comfortable between episodes of hystrerical crying and yelling and cursing. AAO X 3. Afebrile, Hemodynamically Stable. Last Vital Signs Temp Pulse Resp BP Pulse Ox 98 F 94 H 20 148/70 96 05/09/18 06:00 05/09/18 06:00 05/09/18 08:30 05/09/18 06:00 05/09/18 08:30 Head - Atraumatic, Normocephalic. HEART: S1,S2, RRR LUNGS: Bilateral polyphonic expiratory wheezes ABDOMEN: Soft, non-tender, normal Bowel Sounds. EXTREMITIES: No edema, no calf tenderness Laboratory Results - last 24 hr 05/08/18 05/09/18 05/09/18 19:20 02:30 06:45 WBC 9.0 RBC 2.69 L Hgb 8.2 L Hct 24.2 L MCV 90.1 MCH 30.6 MCHC 33.9 RDW 17.6 H Plt Count 357 MPV 8.1 Retic Count Sodium Potassium Chloride Carbon Dioxide Anion Gap BUN Creatinine Creat Clearance w eGFR Random Glucose Calcium Phosphorus Magnesium Total Bilirubin AST ALT Alkaline Phosphatase Troponin I 0.07 H 0.05 Total Protein Albumin TSH 05/09/18 05/09/18 06:45 06:45 WBC RBC Hgb Hct MCV MCH MCHC RDW Plt Count MPV Retic Count 3.68 H D Sodium 139 Potassium 3.6 Chloride 100 Carbon Dioxide 29 Anion Gap 10 BUN 29 H Creatinine 2.4 H Creat Clearance w eGFR 20.52 Random Glucose 156 H Calcium 8.3 L Phosphorus 4.9 Magnesium 2.0 Total Bilirubin 0.6 AST 13 L ALT 40 Alkaline Phosphatase 209 H Troponin I Total Protein 6.2 L Albumin 3.1 L TSH 1.65 Current Medications Generic Name Dose Route Start Last Admin Trade Name Freq PRN Reason Stop Dose Admin Acetaminophen 650 mg 05/09/18 10:47 05/09/18 11:36 Tylenol - PO 650 mg Q6H PRN Administration PAIN 1-3 Albuterol Sulfate 1 amp 05/09/18 07:58 Ventolin 0.042trength) - NEB Q4H PRN SHORT OF BREATH/WHEEZING Albuterol/Ipratropium 1 amp 05/09/18 08:00 05/09/18 12:10 Duoneb - NEB 1 amp RQID JACKY Administration Amlodipine Besylate 2.5 mg 05/09/18 10:00 05/09/18 10:11 Norvasc - PO 2.5 mg DAILY JACKY Administration Atorvastatin Calcium 10 mg 05/09/18 22:00 Lipitor - PO HS JACKY Azithromycin 250 mg 05/09/18 10:00 05/09/18 10:12 Zithromax - PO 250 mg DAILY JACKY Administration Budesonide/Formoterol Fumarate 2 puff 05/08/18 22:00 05/09/18 10:12 Symbicort 160/4.5mcg - IH 2 puff BID JACKY Administration Gabapentin 300 mg 05/08/18 22:00 05/09/18 06:33 Neurontin - PO 300 mg TID JACKY Administration Guaifenesin 10 ml 05/09/18 01:21 05/09/18 02:18 Robitussin Dm - PO 10 ml Q8H PRN Administration COUGH Heparin Sodium (Porcine) 5,000 unit 05/08/18 22:00 05/09/18 06:33 Heparin - SQ 5,000 unit TID JACKY Administration Hydrochlorothiazide 12.5 mg 05/09/18 10:00 05/09/18 10:11 Hctz - PO 12.5 mg DAILY JACKY Administration Sodium Chloride 250 mls @ 3,000 mls/hr 05/08/18 16:04 Normal Saline - IV 05/09/18 16:04 PRN PRN Hypotension during Dialysis Melatonin 5 mg 05/08/18 20:25 05/08/18 22:24 Melatonin PO 5 mg HS PRN Administration INSOMNIA Methylprednisolone Sodium Succinate 40 mg 05/08/18 21:15 05/09/18 10:11 Solu-Medrol - IVPUSH 40 mg Q8H-IV JACKY Administration Miscellaneous 1 each 05/08/18 22:00 05/08/18 22:40 Lidoderm Patch Removal MC Not Given DAILY@2200 JACKY Oxycodone HCl 5 mg 05/09/18 06:22 05/09/18 06:35 Roxicodone - PO 5 mg Q6H PRN Administration PAIN LEVEL 4 - 6 Varenicline 0.5 mg 05/09/18 10:00 05/09/18 10:11 Chantix - PO 0.5 mg DAILY JACKY Administration Home Medications Medication Instructions Recorded Ibuprofen [Motrin -] 400 mg PO QID PRN #28 tablet 02/23/18 Methocarbamol [Robaxin -] 500 mg PO BID PRN #14 tablet 02/23/18 Lidocaine 5% Patch [Lidoderm -] 1 patch TP DAILY #7 patch 03/02/18 Albuterol 2.5/Ipratropium 0.5 1 amp NEB Q6H PRN amp 03/14/18 [Duoneb -] Albuterol Sulfate Inhaler - 2 puff IH QID PRN 04/26/18 [Ventolin HFA Inhaler -] Guaifenesin AC [Robitussin AC -] 5 ml PO TID PRN #60 liquid MDD 15 04/29/18 ml Melatonin 5 mg PO HS PRN tab 04/29/18 predniSONE [Deltasone -] 40 mg PO DAILY #10 tablet MDD 2 04/29/18 Atorvastatin Ca [Lipitor] 10 mg PO DAILY 05/05/18 Duloxetine HCl [Cymbalta] 30 mg PO DAILY 05/05/18 Gabapentin [Neurontin -] 300 mg PO TID 05/05/18 Nicotine [Nicotine Patch 14mg/24 1 each TD DAILY #30 patch.td24 05/05/18 hr] Acetaminophen [Tylenol 1,000 mg PO Q8H PRN tablet 05/06/18 .Extra-Strength -] Amlodipine Besylate [Norvasc -] 2.5 mg PO DAILY #15 tablet 05/06/18 Budesonide/Formeterol Fumarate 2 puff IH BID #1 inhaler 05/06/18 [SYMBICORT 160/4.5mcg -] Varenicline Tartrate [Chantix -] 0.5 mg PO DAILY #30 tab 05/06/18 oxyCODONE HCL [Roxicodone -] 5 mg PO Q6H PRN #20 tablet MDD 4 05/06/18 predniSONE [Deltasone -] 40 mg PO DAILY #32 tablet 05/06/18 ASSESSMENT AND PLAN: 63 year old female with history of chronic hypoxic respiratory failure sec to COPD, chronic diastolic heart failure, HTN, hyperlipidemia, hypothyroidism, ESRD , GERD, depression, anxiety, iron deficiency anemia, peripheral neuropathy, ovarian cancer, chronic back pain who presented with shortness of breath and productive cough. She had been admitted on 05/03 for COPD exacerbation and was treated with Symbicort, Prednisone, albuterol nebs. She was going to be discharged to short term rehab but she refused the one facility which accepted her. 1. Acute on Chronic Respiratory Failure sec to Acute Exacerbation of COPD Failed treatment with oral Prednisone Continue Symbicort Continue IV SoluMedrol, Zithromax, DuoNeb, albuterol nebs as needed 2. Elevated troponin, likely demand ischemia TnI max 0.09 ?reduced renal clearance vs demand ischemia. No chest pain. Cardiology consulted. 3. Chronic diastolic heart failure - no evidence of acute decompensation. 4. HTN - Continue Norvasc, HCTZ 5. Anxiety, Impulsivity, Beligerence - HIstory of Anxiety/Depression - on Cymbalta. Will give 1 X Ativan and consult Psych. 6. Hyperlipidemia - Continue Lipitor 7. Hypothyroidism reported Not on medications - TSH 1.6 8. ESRD on HD - as per Nephrology 9. GERD - will start PPI. 10. Anemia secondary to iron deficiency and CKD H/H stable. Epogen with HD 11. Peripheral neuropathy - Continue Neurontin 12. Chronic back pain - Continue Neurontin, Cymbalta, Lidoderm patch, oxycodone as needed 13. Nicotine dependence - Continue Chantix DVT Px - Heparin SQ
--- NOTE | 2018-05-09 13:01 | PN ---
Progress Note, Physician History of Present Illness: Pt seen and examined at bedside. She is awake and alert. She tolerated HD last night. She complains of wheezing. - Current Medication List Current Medications: Active Medications Acetaminophen (Tylenol -) 650 mg PO Q6H PRN PRN Reason: PAIN 1-3 Last Admin: 05/09/18 11:36 Dose: 650 mg Albuterol Sulfate (Ventolin 0.042trength) -) 1 amp NEB Q4H PRN PRN Reason: SHORT OF BREATH/WHEEZING Albuterol/Ipratropium (Duoneb -) 1 amp NEB RQID [facility] Last Admin: 05/09/18 12:10 Dose: 1 amp Amlodipine Besylate (Norvasc -) 2.5 mg PO DAILY [facility] Last Admin: 05/09/18 10:11 Dose: 2.5 mg Atorvastatin Calcium (Lipitor -) 10 mg PO HS [facility] Azithromycin (Zithromax -) 250 mg PO DAILY [facility] Last Admin: 05/09/18 10:12 Dose: 250 mg Budesonide/Formoterol Fumarate (Symbicort 160/4.5mcg -) 2 puff IH BID [facility] Last Admin: 05/09/18 10:12 Dose: 2 puff Gabapentin (Neurontin -) 300 mg PO TID [facility] Last Admin: 05/09/18 06:33 Dose: 300 mg Guaifenesin (Robitussin Dm -) 10 ml PO Q8H PRN PRN Reason: COUGH Last Admin: 05/09/18 02:18 Dose: 10 ml Heparin Sodium (Porcine) (Heparin -) 5,000 unit SQ TID [facility] Last Admin: 05/09/18 06:33 Dose: 5,000 unit Hydrochlorothiazide (Hctz -) 12.5 mg PO DAILY [facility] Last Admin: 05/09/18 10:11 Dose: 12.5 mg Sodium Chloride (Normal Saline -) 250 mls @ 3,000 mls/hr IV PRN PRN PRN Reason: Hypotension during Dialysis Stop: 05/09/18 16:04 Melatonin (Melatonin) 5 mg PO HS PRN PRN Reason: INSOMNIA Last Admin: 05/08/18 22:24 Dose: 5 mg Methylprednisolone Sodium Succinate (Solu-Medrol -) 40 mg IVPUSH Q8H-IV JACKY Last Admin: 05/09/18 10:11 Dose: 40 mg Miscellaneous (Lidoderm Patch Removal) 1 each MC DAILY@2200 [facility] Last Admin: 05/08/18 22:40 Dose: Not Given Oxycodone HCl (Roxicodone -) 5 mg PO Q6H PRN PRN Reason: PAIN LEVEL 4 - 6 Last Admin: 05/09/18 06:35 Dose: 5 mg Varenicline (Chantix -) 0.5 mg PO DAILY [facility] Last Admin: 05/09/18 10:11 Dose: 0.5 mg - Objective Vital Signs: Vital Signs Temperature 98 F 05/09/18 06:00 Pulse Rate 94 H 05/09/18 06:00 Respiratory Rate 20 05/09/18 08:30 Blood Pressure 148/70 05/09/18 06:00 O2 Sat by Pulse Oximetry (%) 96 05/09/18 08:30 Constitutional: Yes: Calm Eyes: Yes: Conjunctiva Clear Cardiovascular: Yes: S1, S2 Respiratory: Yes: On Nasal O2, Wheezes Gastrointestinal: Yes: Soft Genitourinary: Yes: WNL Musculoskeletal: Yes: WNL Edema: No Neurological: Yes: Oriented Psychiatric: Yes: Oriented Labs: CBC, BMP 05/09/18 06:45 05/09/18 06:45 INR, PTT INR 1.13 (0.83-1.09) H 05/08/18 11:30 Problem List - Problems (1) COPD exacerbation Code(s): J44.1 - CHRONIC OBSTRUCTIVE PULMONARY DISEASE W (ACUTE) EXACERBATION (2) ESRD (end stage renal disease) on dialysis Code(s): N18.6 - END STAGE RENAL DISEASE; Z99.2 - DEPENDENCE ON RENAL DIALYSIS Assessment/Plan Current Medications Generic Name Dose Route Start Last Admin Trade Name Freq PRN Reason Stop Dose Admin Acetaminophen 650 mg 05/09/18 10:47 05/09/18 11:36 Tylenol - PO 650 mg Q6H PRN Administration PAIN 1-3 Albuterol Sulfate 1 amp 05/09/18 07:58 Ventolin 0.042trength) - NEB Q4H PRN SHORT OF BREATH/WHEEZING Albuterol/Ipratropium 1 amp 05/09/18 08:00 05/09/18 12:10 Duoneb - NEB 1 amp RQID JACKY Administration Amlodipine Besylate 2.5 mg 05/09/18 10:00 05/09/18 10:11 Norvasc - PO 2.5 mg DAILY JACKY Administration Atorvastatin Calcium 10 mg 05/09/18 22:00 Lipitor - PO HS JACKY Azithromycin 250 mg 05/09/18 10:00 05/09/18 10:12 Zithromax - PO 250 mg DAILY JACKY Administration Budesonide/Formoterol Fumarate 2 puff 05/08/18 22:00 05/09/18 10:12 Symbicort 160/4.5mcg - IH 2 puff BID JACKY Administration Gabapentin 300 mg 05/08/18 22:00 05/09/18 06:33 Neurontin - PO 300 mg TID JACKY Administration Guaifenesin 10 ml 05/09/18 01:21 05/09/18 02:18 Robitussin Dm - PO 10 ml Q8H PRN Administration COUGH Heparin Sodium (Porcine) 5,000 unit 05/08/18 22:00 05/09/18 06:33 Heparin - SQ 5,000 unit TID JACKY Administration Hydrochlorothiazide 12.5 mg 05/09/18 10:00 05/09/18 10:11 Hctz - PO 12.5 mg DAILY JACKY Administration Sodium Chloride 250 mls @ 3,000 mls/hr 05/08/18 16:04 Normal Saline - IV 05/09/18 16:04 PRN PRN Hypotension during Dialysis Melatonin 5 mg 05/08/18 20:25 05/08/18 22:24 Melatonin PO 5 mg HS PRN Administration INSOMNIA Methylprednisolone Sodium Succinate 40 mg 05/08/18 21:15 05/09/18 10:11 Solu-Medrol - IVPUSH 40 mg Q8H-IV JACKY Administration Miscellaneous 1 each 05/08/18 22:00 05/08/18 22:40 Lidoderm Patch Removal MC Not Given DAILY@2200 JACKY Oxycodone HCl 5 mg 05/09/18 06:22 05/09/18 06:35 Roxicodone - PO 5 mg Q6H PRN Administration PAIN LEVEL 4 - 6 Varenicline 0.5 mg 05/09/18 10:00 05/09/18 10:11 Chantix - PO 0.5 mg DAILY JACKY Administration Impression 1. ESRD 2. wheezing 3. chronic back pain 4. anemia 5. anxiety 6. hx of nsaid use 7. chf diastolic 8. possible complex renal cyst 9. HLD 10. nephrolithiasis 11. copd Plan - HD in am - d/c thiazide - monitor b - cont steroids - discussed with pulmonary - epogen for anemia - will follow
--- NOTE | 2018-05-09 13:48 | PN ---
Physical Exam: SUBJECTIVE: Patient seen and examined this AM. She states she is SOB though SOB at baseline and requires 3L Home O2. Also complaining of pain all over specifically in her right arm where she received dialysis yesterday. OBJECTIVE: Vital Signs Period Temp Pulse Resp BP Sys/Bills Pulse Ox Last 24 Hr 98 F-98.1 F 80-113 16-20 114-152/53-86 95-96 GENERAL: A&O, moderate distress, anxious on exam HEAD: Normocephalic, atraumatic. EYES: no scleral icterus EARS, NOSE, THROAT: oropharynx clear without exudates. Moist mucous membranes. LUNGS: course breath sounds and wheezes throughout HEART: Regular rate and rhythm, normal S1 and S2 without murmur ABDOMEN: Soft, nontender to palpation, normoactive bowel sounds MUSCULOSKELETAL: Tenderness to palpation somewhat diffusely according to patient. worst in right shoulder and upper arm. Decreased ROM right shoulder limited due to pain EXTREMITIES: warm, well-perfused. No peripheral edema. NEUROLOGICAL: Cranial nerves II-XII grossly intact. Normal speech. PSYCHIATRIC: Very anxious and tearful on exam, has a pacifier hanging around her neck Laboratory Results - last 24 hr 05/08/18 05/09/18 05/09/18 19:20 02:30 06:45 WBC 9.0 RBC 2.69 L Hgb 8.2 L Hct 24.2 L MCV 90.1 MCH 30.6 MCHC 33.9 RDW 17.6 H Plt Count 357 MPV 8.1 Retic Count Sodium Potassium Chloride Carbon Dioxide Anion Gap BUN Creatinine Creat Clearance w eGFR Random Glucose Calcium Phosphorus Magnesium Total Bilirubin AST ALT Alkaline Phosphatase Troponin I 0.07 H 0.05 Total Protein Albumin TSH 05/09/18 05/09/18 06:45 06:45 WBC RBC Hgb Hct MCV MCH MCHC RDW Plt Count MPV Retic Count 3.68 H D Sodium 139 Potassium 3.6 Chloride 100 Carbon Dioxide 29 Anion Gap 10 BUN 29 H Creatinine 2.4 H Creat Clearance w eGFR 20.52 Random Glucose 156 H Calcium 8.3 L Phosphorus 4.9 Magnesium 2.0 Total Bilirubin 0.6 AST 13 L ALT 40 Alkaline Phosphatase 209 H Troponin I Total Protein 6.2 L Albumin 3.1 L TSH 1.65 Active Medications Generic Name Dose Route Start Last Admin Trade Name Freq PRN Reason Stop Dose Admin Acetaminophen 650 mg 05/09/18 10:47 05/09/18 11:36 Tylenol - PO 650 mg Q6H PRN Administration PAIN 1-3 Albuterol Sulfate 1 amp 05/09/18 07:58 Ventolin 0.042trength) - NEB Q4H PRN SHORT OF BREATH/WHEEZING Albuterol/Ipratropium 1 amp 05/09/18 08:00 05/09/18 12:10 Duoneb - NEB 1 amp RQID JACKY Administration Amlodipine Besylate 2.5 mg 05/09/18 10:00 05/09/18 10:11 Norvasc - PO 2.5 mg DAILY JACKY Administration Atorvastatin Calcium 10 mg 05/09/18 22:00 Lipitor - PO HS JACKY Azithromycin 250 mg 05/09/18 10:00 05/09/18 10:12 Zithromax - PO 250 mg DAILY JACKY Administration Budesonide/Formoterol Fumarate 2 puff 05/08/18 22:00 05/09/18 10:12 Symbicort 160/4.5mcg - IH 2 puff BID JACKY Administration Epoetin Zachery 10,000 unit 05/10/18 13:01 Epogen - IVPUSH 05/10/18 13:02 ONCE ONE Gabapentin 300 mg 05/08/18 22:00 05/09/18 06:33 Neurontin - PO 300 mg TID JACKY Administration Guaifenesin 10 ml 05/09/18 01:21 05/09/18 02:18 Robitussin Dm - PO 10 ml Q8H PRN Administration COUGH Heparin Sodium (Porcine) 5,000 unit 05/08/18 22:00 05/09/18 06:33 Heparin - SQ 5,000 unit TID JACKY Administration Hydrochlorothiazide 12.5 mg 05/09/18 10:00 05/09/18 10:11 Hctz - PO 12.5 mg DAILY JACKY Administration Sodium Chloride 250 mls @ 3,000 mls/hr 05/08/18 16:04 Normal Saline - IV 05/09/18 16:04 PRN PRN Hypotension during Dialysis Sodium Chloride 250 mls @ 3,000 mls/hr 05/09/18 13:01 Normal Saline - IV 05/10/18 13:02 PRN PRN Hypotension during Dialysis Melatonin 5 mg 05/08/18 20:25 05/08/18 22:24 Melatonin PO 5 mg HS PRN Administration INSOMNIA Methylprednisolone Sodium Succinate 40 mg 05/08/18 21:15 05/09/18 10:11 Solu-Medrol - IVPUSH 40 mg Q8H-IV JACKY Administration Miscellaneous 1 each 05/08/18 22:00 05/08/18 22:40 Lidoderm Patch Removal MC Not Given DAILY@2200 JACKY Oxycodone HCl 5 mg 05/09/18 06:22 05/09/18 06:35 Roxicodone - PO 5 mg Q6H PRN Administration PAIN LEVEL 4 - 6 Varenicline 0.5 mg 05/09/18 10:00 05/09/18 10:11 Chantix - PO 0.5 mg DAILY JACKY Administration ASSESSMENT/PLAN: 63 year old female with history of chronic hypoxic respiratory failure sec to COPD, chronic diastolic heart failure, HTN, hyperlipidemia, hypothyroidism, ESRD , GERD, depression, anxiety, peripheral neuropathy, ovarian cancer, chronic back pain admitted with complaint of SOB and cough, and missed dialysis. Acute on Chronic Respiratory Failure likely secondary to acute COPD exacerbation -On 3L home O2 -Pulmonology consult appreciated -Symbicort -DuoNebs RQID -SoluMedrol 40 mg IV Q8 Chronic Diastolic Heart Failure -Stable, not in acute signs of volume overload HTN -HCTZ 12.5 mg PO Daily -Norvasc 2.5 mg PO Daily HLD -Lipitor 10 mg PO HS ESRD -HD on T,,S -Nephrology Consult appreciated -Missed dialysis prior to admission, was dialyzed upon admission, further HD as per nephrology -Monitor electrolytes GERD -Protonix 40 mg PO Daily Depression/Anxiety -Cymbalta -Pt could benefit greatly from outpatient psych follow up -Ativan 1 mg PO Q8 PRN anxiety -Will consult psychiatry Anemia -Likely secondary to ESRD -H/H stable -s/p Epogen as per nephrology DVT Prophylaxis -Heparin 5000 units SQ TID FEN -Fluids: None -Electrolytes: No electrolyte abnormalities, BMP in AM -Nutrition: Renal Diet Disposition Telemetry Visit type - Emergency Visit Emergency Visit: Yes ED Registration Date: 05/08/18 Care time: The patient presented to the Emergency Department on the above date and was hospitalized for further evaluation of their emergent condition. - New Patient This patient is new to me today: Yes Date on this admission: 05/09/18 - Critical Care Critical Care patient: No
[2018-05-09] MEDS: PANTOPRAZOLE 40 MG TABLET (FP) PO SCH (14:15)
--- NOTE | 2018-05-09 17:32 | CON.PSY ---
Psychiatry Consult Chief Complaint: 63 year old with COPD and otjhetr chronic medical conditions seen for anxirty, agitation an d Hysterical behaviour. Patient was given Ativan and Percicet. patient known to me from previous admissions. can be demanding and manipulative and med seeking. Symptoms: reports: Irritability, Conduct Problems, Oppositionalism - Previous Psychiatric Treatment Outpatient: None Inpatient: None - Previous Substance Abuse Treatment Outpatient: None Inpatient: None - Reason for Previous Treatment Reason for Previous Treatment: Major Depression - Current Medications Current Medications: Active Medications Acetaminophen (Tylenol -) 650 mg PO Q6H PRN PRN Reason: PAIN 1-3 Last Admin: 05/09/18 16:30 Dose: 650 mg Albuterol Sulfate (Ventolin 0.042trength) -) 1 amp NEB Q4H PRN PRN Reason: SHORT OF BREATH/WHEEZING Albuterol/Ipratropium (Duoneb -) 1 amp NEB RQID [facility] Last Admin: 05/09/18 16:11 Dose: 1 amp Amlodipine Besylate (Norvasc -) 2.5 mg PO DAILY [facility] Last Admin: 05/09/18 10:11 Dose: 2.5 mg Atorvastatin Calcium (Lipitor -) 10 mg PO HS [facility] Azithromycin (Zithromax -) 250 mg PO DAILY [facility] Last Admin: 05/09/18 10:12 Dose: 250 mg Budesonide/Formoterol Fumarate (Symbicort 160/4.5mcg -) 2 puff IH BID [facility] Last Admin: 05/09/18 10:12 Dose: 2 puff Epoetin Zachery (Epogen -) 10,000 unit IVPUSH ONCE ONE Stop: 05/10/18 13:02 Gabapentin (Neurontin -) 300 mg PO TID [facility] Last Admin: 05/09/18 14:15 Dose: 300 mg Guaifenesin (Robitussin Dm -) 10 ml PO Q8H PRN PRN Reason: COUGH Last Admin: 05/09/18 02:18 Dose: 10 ml Heparin Sodium (Porcine) (Heparin -) 5,000 unit SQ TID [facility] Last Admin: 05/09/18 14:15 Dose: 5,000 unit Hydrochlorothiazide (Hctz -) 12.5 mg PO DAILY [facility] Last Admin: 05/09/18 10:11 Dose: 12.5 mg Sodium Chloride (Normal Saline -) 250 mls @ 3,000 mls/hr IV PRN PRN PRN Reason: Hypotension during Dialysis Stop: 05/10/18 13:02 Melatonin (Melatonin) 5 mg PO HS PRN PRN Reason: INSOMNIA Last Admin: 05/08/18 22:24 Dose: 5 mg Methylprednisolone Sodium Succinate (Solu-Medrol -) 40 mg IVPUSH Q8H-IV JACKY Last Admin: 05/09/18 10:11 Dose: 40 mg Miscellaneous (Lidoderm Patch Removal) 1 each MC DAILY@2200 [facility] Last Admin: 05/08/18 22:40 Dose: Not Given Oxycodone HCl (Roxicodone -) 5 mg PO Q6H PRN PRN Reason: PAIN LEVEL 4 - 6 Last Admin: 05/09/18 16:30 Dose: 5 mg Pantoprazole Sodium (Protonix -) 40 mg PO DAILY [facility] Last Admin: 05/09/18 14:15 Dose: 40 mg Varenicline (Chantix -) 0.5 mg PO DAILY [facility] Last Admin: 05/09/18 10:11 Dose: 0.5 mg - Allergies Allergies: Allergies Allergy/AdvReac Type Severity Reaction Status Date / Time levofloxacin [From Levaquin] Allergy Mild Itching Verified 05/08/18 11:31 - Current Living Status Usual Living Arrangement: With Significant Other - Current Mental Status Evaluation Appearance: Disheveled Attitude: Uncooperative - Affect Affect: Constrictive Appropriateness: Not Appropriate - Mood Mood: Irritable - Speech/Language Expressive: Coherent - Psychomotor Activity Psychomotor Activity: Hyperactive - Thought Process Thought Process: Intact - Thought Content Hallucinations: Absent Delusions: Absent - Self Perception Self Perception: No Impairment - Cognition Attention: Alert Orientation: Time Memory, Immediate Recall: Intact Memory, Short Term: 2/3 Memory, Remote with Promptin/3 - Concentration Serial Sevens Intact: No Simple Calculations Intact: Yes - Abstraction Proverb Interpretation: Intact Judgement: Minimally Impaired - Insight Insight: Intact - Impulse Control Impulse Control: Minimally Impaired - Suicidal Ideation Suicidal Ideation: No - Homicidal Ideation Homicidal Ideation: No Assessment/Plan 1) continue with Cymbalta but will incresae to 30mg po od.
[2018-05-09] MEDS: ATORVASTATIN CA 10 MG TABLET (FP) PO SCH (21:18)
[2018-05-09] MEDS: MELATONIN 5 MG TABLETS PO PRN (22:07)
[2018-05-09] MEDS: LIDOCAINE PATCH REMOVAL MC SCH (22:10)
[2018-05-10] MEDS: methylPREDNISolone NA SUCC 40 MG/1 ML VIAL IVPUSH SCH ×3 (01:23→17:36)
[2018-05-10] MEDS: ALBUTEROL SO4 0.042% IH SOL 1.25 MG/3 ML VIAL.NEB NEB PRN (02:45)
[2018-05-10] MEDS: oxyCODONE HCL 5 MG TABLET PO PRN ×3 (04:19→19:45)
[2018-05-10] MEDS: ACETAMINOPHEN 325 MG TABLET (FP) PO PRN ×2 (04:20→11:42)
[2018-05-10] MEDS: HEPARIN NA (PORCINE) 5,000 UNITS/ML 1ML VIAL SQ SCH ×3 (05:51→22:51)
[2018-05-10] MEDS: GABAPENTIN 300 MG CAPSULE (FP) PO SCH ×3 (05:51→22:51)
[2018-05-10] MEDS ORDERED: SODIUM CHLORIDE 250 ML IV PRN (06:56)
[2018-05-10 08:23] LABS: HEMOGLOBIN 7.4 GM/dL (10.7-15.3); MCH 30.2 pg (25.7-33.7); MCHC 33.4 g/dl (32.0-36.0); MEAN CELL VOLUME 90.4 fl (80-96); MEAN PLT VOLUME 7.9 fl (7.5-11.1); PLATELET COUNT 329 K/MM3 (134-434); RBC 2.44 M/mm3 (3.60-5.2); RDW 17.5 % (11.6-15.6); WHITE BLOOD COUNT 6.2 K/mm3 (4.0-10.0)
[2018-05-10] MEDS: ALBUTEROL SO4 2.5/IPRATROPIUM 0.5 INH SOL 3 ML VIAL.NEB. NEB SCH ×4 (08:35→20:35)
[2018-05-10 08:55] LABS: ANION GAP 10 MMOL/L (8-16); BLOOD UREA NITROGEN 52 mg/dL (7-18); CHLORIDE 102 mmol/L (98-107); CO2 28 mmol/L (21-32); CREATININE 3.4 mg/dL (0.55-1.3); GLUCOSE,RANDOM 145 mg/dL (74-106); POTASSIUM 3.3 mmol/L (3.5-5.1); SODIUM 140 mmol/L (136-145)
[2018-05-10] MEDS ORDERED: EPOETIN ALFA 10,000 UNIT/1 ML VIAL IVPUSH ONE (09:00)
[2018-05-10 09:18] LABS: CALCIUM 6.8 mg/dL (8.5-10.1)
--- NOTE | 2018-05-10 09:48 | PN ---
Teaching Attending Note Name of Resident: Uvaldo Alba ATTENDING PHYSICIAN STATEMENT I saw and evaluated the patient. I reviewed the resident's note and discussed the case with the resident. I agree with the resident's findings and plan as documented. SUBJECTIVE: Sleeping peacefully during HD OBJECTIVE: Afebrile, Hemodynamically Stable. Last Vital Signs Temp Pulse Resp BP Pulse Ox 98.2 F 86 18 127/74 97 05/10/18 07:20 05/10/18 07:30 05/10/18 08:35 05/10/18 07:30 05/10/18 08:35 Head - Atraumatic, Normocephalic. HEART: S1,S2, RRR LUNGS: Bilateral wheeze significantly improved. ABDOMEN: Soft, non-tender, normal Bowel Sounds. EXTREMITIES: No edema, no calf tenderness Laboratory Results - last 24 hr 05/10/18 05/10/18 07:30 07:30 WBC 6.2 RBC 2.44 L Hgb 7.4 L Hct 22.0 L MCV 90.4 MCH 30.2 MCHC 33.4 RDW 17.5 H Plt Count 329 MPV 7.9 Sodium 140 Potassium 3.3 L Chloride 102 Carbon Dioxide 28 Anion Gap 10 BUN 52 H Creatinine 3.4 H Creat Clearance w eGFR 13.73 Random Glucose 145 H Calcium 6.8 L* Current Medications Generic Name Dose Route Start Last Admin Trade Name Freq PRN Reason Stop Dose Admin Acetaminophen 650 mg 05/09/18 10:47 05/10/18 04:20 Tylenol - PO 650 mg Q6H PRN Administration PAIN 1-3 Albuterol Sulfate 1 amp 05/09/18 07:58 05/10/18 02:45 Ventolin 0.042trength) - NEB 1 amp Q4H PRN Administration SHORT OF BREATH/WHEEZING Albuterol/Ipratropium 1 amp 05/09/18 08:00 05/09/18 22:15 Duoneb - NEB 1 amp RQID JACKY Administration Amlodipine Besylate 2.5 mg 05/09/18 10:00 05/09/18 10:11 Norvasc - PO 2.5 mg DAILY JACKY Administration Atorvastatin Calcium 10 mg 05/09/18 22:00 05/09/18 21:18 Lipitor - PO 10 mg HS JACKY Administration Azithromycin 250 mg 05/09/18 10:00 05/09/18 10:12 Zithromax - PO 250 mg DAILY JACKY Administration Budesonide/Formoterol Fumarate 2 puff 05/08/18 22:00 05/09/18 21:22 Symbicort 160/4.5mcg - IH 2 puff BID JACKY Administration Duloxetine HCl 30 mg 05/10/18 10:00 Cymbalta - PO DAILY JACKY Gabapentin 300 mg 05/08/18 22:00 05/10/18 05:51 Neurontin - PO 300 mg TID JACKY Administration Guaifenesin 10 ml 05/09/18 01:21 05/09/18 02:18 Robitussin Dm - PO 10 ml Q8H PRN Administration COUGH Heparin Sodium (Porcine) 5,000 unit 05/08/18 22:00 05/10/18 05:51 Heparin - SQ 5,000 unit TID JACKY Administration Hydrochlorothiazide 12.5 mg 05/09/18 10:00 05/09/18 10:11 Hctz - PO 12.5 mg DAILY JACKY Administration Sodium Chloride 250 mls @ 3,000 mls/hr 05/10/18 06:56 Normal Saline - IV 05/10/18 18:00 PRN PRN Hypotension during Dialysis Melatonin 5 mg 05/08/18 20:25 05/09/18 22:07 Melatonin PO 5 mg HS PRN Administration INSOMNIA Methylprednisolone Sodium Succinate 40 mg 05/08/18 21:15 05/10/18 01:23 Solu-Medrol - IVPUSH 40 mg Q8H-IV JACKY Administration Oxycodone HCl 5 mg 05/09/18 06:22 05/10/18 04:19 Roxicodone - PO 5 mg Q6H PRN Administration PAIN LEVEL 4 - 6 Pantoprazole Sodium 40 mg 05/09/18 13:15 05/09/18 14:15 Protonix - PO 40 mg DAILY JACKY Administration Varenicline 0.5 mg 05/09/18 10:00 05/09/18 10:11 Chantix - PO 0.5 mg DAILY JACKY Administration ASSESSMENT AND PLAN: 63 year old female with history of chronic hypoxic respiratory failure sec to COPD, chronic diastolic heart failure, HTN, hyperlipidemia, hypothyroidism, ESRD , GERD, depression, anxiety, iron deficiency anemia, peripheral neuropathy, ovarian cancer, chronic back pain who presented with shortness of breath and productive cough. She had been admitted on 05/03 for COPD exacerbation and was treated with Symbicort, Prednisone, albuterol nebs. She was going to be discharged to short term rehab but she refused the one facility which accepted her. 1. Acute on Chronic Respiratory Failure sec to Acute Exacerbation of COPD Failed treatment with oral Prednisone Continue Symbicort Clnically improved on IV SoluMedrol, Zithromax, DuoNeb, albuterol nebs as needed. Medically stable for transition to oral Pred and discharge once Pulm is in agreement. 2. Elevated troponin, likely demand ischemia TnI max 0.09 ?reduced renal clearance vs demand ischemia. No chest pain. Cardiology follow up as an out-patient. 3. Chronic diastolic heart failure - no evidence of acute decompensation. 4. HTN - Continue Norvasc, HCTZ 5. Anxiety, Impulsivity, Beligerence - HIstory of Anxiety/Depression - on Cymbalta. Required Ativan 1mg 05/09/18. Psych consulted and increase Cymbalta dose to 30mg. 6. Hyperlipidemia - Continue Lipitor 7. Hypothyroidism reported Not on medications - TSH 1.6 8. ESRD on HD - receiving HD 05/10/18 9. GERD - started on PPI. 10. Anemia secondary to iron deficiency and CKD H/H 7.08/11. Epogen with HD as per Nephrology 11. Peripheral neuropathy - Continue Neurontin 12. Chronic back pain - Continue Neurontin, Cymbalta, Lidoderm patch, oxycodone as needed 13. Nicotine dependence - Continue Chantix DVT Px - Heparin SQ
--- NOTE | 2018-05-10 10:11 | PN ---
Physical Exam: SUBJECTIVE: Patient seen and examined this AM. She states she is feeling a little better today than yesterday but expresses anxiety about discharge and claims she has no one to care for her at home. As I was leaving she was exclaiming "father" loudly yelling about receiving communion this morning. OBJECTIVE: Vital Signs Period Temp Pulse Resp BP Sys/Bills Pulse Ox Last 24 Hr 97.8 F-99.1 F 84-104 18-22 120-145/62-84 97-97 GENERAL: A&O, moderate distress, anxious on exam HEAD: Normocephalic, atraumatic. EYES: no scleral icterus EARS, NOSE, THROAT: oropharynx clear without exudates. Moist mucous membranes. LUNGS: course breath sounds and wheezes throughout HEART: Regular rate and rhythm, normal S1 and S2 without murmur ABDOMEN: Soft, nontender to palpation, normoactive bowel sounds MUSCULOSKELETAL: Tenderness to palpation somewhat diffusely according to patient. worst in right shoulder and upper arm. Decreased ROM right shoulder limited due to pain EXTREMITIES: warm, well-perfused. No peripheral edema. NEUROLOGICAL: Cranial nerves II-XII grossly intact. Normal speech. PSYCHIATRIC: Very anxious and tearful on exam, has a pacifier hanging around her neck Laboratory Results - last 24 hr 05/10/18 05/10/18 07:30 07:30 WBC 6.2 RBC 2.44 L Hgb 7.4 L Hct 22.0 L MCV 90.4 MCH 30.2 MCHC 33.4 RDW 17.5 H Plt Count 329 MPV 7.9 Sodium 140 Potassium 3.3 L Chloride 102 Carbon Dioxide 28 Anion Gap 10 BUN 52 H Creatinine 3.4 H Creat Clearance w eGFR 13.73 Random Glucose 145 H Calcium 6.8 L* Active Medications Generic Name Dose Route Start Last Admin Trade Name Freq PRN Reason Stop Dose Admin Acetaminophen 650 mg 05/09/18 10:47 05/10/18 04:20 Tylenol - PO 650 mg Q6H PRN Administration PAIN 1-3 Albuterol Sulfate 1 amp 05/09/18 07:58 05/10/18 02:45 Ventolin 0.042trength) - NEB 1 amp Q4H PRN Administration SHORT OF BREATH/WHEEZING Albuterol/Ipratropium 1 amp 05/09/18 08:00 05/09/18 22:15 Duoneb - NEB 1 amp RQID JACKY Administration Amlodipine Besylate 2.5 mg 05/09/18 10:00 05/09/18 10:11 Norvasc - PO 2.5 mg DAILY JACKY Administration Atorvastatin Calcium 10 mg 05/09/18 22:00 05/09/18 21:18 Lipitor - PO 10 mg HS JACKY Administration Azithromycin 250 mg 05/09/18 10:00 05/09/18 10:12 Zithromax - PO 250 mg DAILY JACKY Administration Budesonide/Formoterol Fumarate 2 puff 05/08/18 22:00 05/09/18 21:22 Symbicort 160/4.5mcg - IH 2 puff BID JACKY Administration Duloxetine HCl 30 mg 05/10/18 10:00 Cymbalta - PO DAILY JACKY Gabapentin 300 mg 05/08/18 22:00 05/10/18 05:51 Neurontin - PO 300 mg TID JACKY Administration Guaifenesin 10 ml 05/09/18 01:21 05/09/18 02:18 Robitussin Dm - PO 10 ml Q8H PRN Administration COUGH Heparin Sodium (Porcine) 5,000 unit 05/08/18 22:00 05/10/18 05:51 Heparin - SQ 5,000 unit TID JACKY Administration Hydrochlorothiazide 12.5 mg 05/09/18 10:00 05/09/18 10:11 Hctz - PO 12.5 mg DAILY JACKY Administration Sodium Chloride 250 mls @ 3,000 mls/hr 05/10/18 06:56 Normal Saline - IV 05/10/18 18:00 PRN PRN Hypotension during Dialysis Melatonin 5 mg 05/08/18 20:25 05/09/18 22:07 Melatonin PO 5 mg HS PRN Administration INSOMNIA Methylprednisolone Sodium Succinate 40 mg 05/08/18 21:15 05/10/18 01:23 Solu-Medrol - IVPUSH 40 mg Q8H-IV JACKY Administration Oxycodone HCl 5 mg 05/09/18 06:22 05/10/18 04:19 Roxicodone - PO 5 mg Q6H PRN Administration PAIN LEVEL 4 - 6 Pantoprazole Sodium 40 mg 05/09/18 13:15 05/09/18 14:15 Protonix - PO 40 mg DAILY JACKY Administration Varenicline 0.5 mg 05/09/18 10:00 05/09/18 10:11 Chantix - PO 0.5 mg DAILY JACKY Administration ASSESSMENT/PLAN: 63 year old female with history of chronic hypoxic respiratory failure sec to COPD, chronic diastolic heart failure, HTN, hyperlipidemia, hypothyroidism, ESRD , GERD, depression, anxiety, peripheral neuropathy, ovarian cancer, chronic back pain admitted with complaint of SOB and cough, and missed dialysis. Acute on Chronic Respiratory Failure likely secondary to acute COPD exacerbation -On 3L home O2 -Pulmonology consult appreciated -Symbicort -DuoNebs RQID -SoluMedrol 40 mg IV Q8, will wean as per pulm recommendations Depression/Anxiety -Cymbalta increased to 30 mg PO Daily -Pt could benefit greatly from outpatient psych follow up -Ativan 1 mg PO Q8 PRN anxiety -Psychiatry consult appreciated Chronic Diastolic Heart Failure -Stable, not in acute signs of volume overload HTN -HCTZ 12.5 mg PO Daily -Norvasc 2.5 mg PO Daily HLD -Lipitor 10 mg PO HS ESRD -HD on ,,S -Nephrology Consult appreciated -Missed dialysis prior to admission, was dialyzed upon admission, further HD as per nephrology -Monitor electrolytes GERD -Protonix 40 mg PO Daily Anemia -Likely secondary to ESRD -H/H stable -s/p Epogen as per nephrology DVT Prophylaxis -Heparin 5000 units SQ TID FEN -Fluids: None -Electrolytes: HypoCalcemic today, albumin pending, will monitor, BMP in AM -Nutrition: Renal Diet Disposition Telemetry Visit type - Emergency Visit Emergency Visit: Yes ED Registration Date: 05/08/18 Care time: The patient presented to the Emergency Department on the above date and was hospitalized for further evaluation of their emergent condition. - New Patient This patient is new to me today: No - Critical Care Critical Care patient: No
[2018-05-10 11:01] LABS: ALBUMIN 3.1 g/dl (3.4-5.0)
[2018-05-10] MEDS: VARENICLINE TARTRATE 0.5 MG TAB PO SCH (11:41)
[2018-05-10] MEDS: amLODIPine BESYLATE 2.5 MG TABLET (FP) PO SCH (11:42)
[2018-05-10] MEDS: DULoxetine HCL 30 MG CAPSULE.DR (FP) PO SCH (11:42)
[2018-05-10] MEDS: PANTOPRAZOLE 40 MG TABLET (FP) PO SCH (11:42)
[2018-05-10] MEDS: HYDROCHLOROTHIAZIDE 12.5 MG CAPSULE (FP) PO SCH (11:42)
[2018-05-10] MEDS: AZITHROMYCIN 250 MG TABLET PO SCH (11:42)
[2018-05-10] MEDS: BUDESONIDE/FORMETEROL FUMARATE 160/4.5 mcg INHALER IH SCH ×2 (11:43→22:52)
--- NOTE | 2018-05-10 13:34 | DS ---
Physical Exam: SUBJECTIVE: Patient seen and examined this AM. She states she is feeling a little better today than yesterday but expresses anxiety about discharge and claims she has no one to care for her at home. As I was leaving she was exclaiming "father" loudly yelling about receiving communion this morning. OBJECTIVE: Vital Signs Period Temp Pulse Resp BP Sys/Bills Pulse Ox Last 24 Hr 97.8 F-99.1 F 79-104 18-22 120-145/60-90 97-97 PHYSICAL EXAM GENERAL: A&O, moderate distress, anxious on exam HEAD: Normocephalic, atraumatic. EYES: no scleral icterus EARS, NOSE, THROAT: oropharynx clear without exudates. Moist mucous membranes. LUNGS: course breath sounds and wheezes throughout, upon return on rounds pt sleeping and breath sounds greatly improved from when awake HEART: Regular rate and rhythm, normal S1 and S2 without murmur ABDOMEN: Soft, nontender to palpation, normoactive bowel sounds MUSCULOSKELETAL: Tenderness to palpation somewhat diffusely according to patient. worst in right shoulder and upper arm. Decreased ROM right shoulder limited due to pain EXTREMITIES: warm, well-perfused. No peripheral edema. NEUROLOGICAL: Cranial nerves II-XII grossly intact. Normal speech. PSYCHIATRIC: Very anxious and tearful on exam, has a pacifier hanging around her neck LABS Laboratory Results - last 24 hr 05/10/18 05/10/18 05/10/18 07:30 07:30 10:00 WBC 6.2 RBC 2.44 L Hgb 7.4 L Hct 22.0 L MCV 90.4 MCH 30.2 MCHC 33.4 RDW 17.5 H Plt Count 329 MPV 7.9 Sodium 140 Potassium 3.3 L Chloride 102 Carbon Dioxide 28 Anion Gap 10 BUN 52 H Creatinine 3.4 H Creat Clearance w eGFR 13.73 Random Glucose 145 H Calcium 6.8 L* Albumin 3.1 L Blood Type A POSITIVE Antibody Screen Negative Crossmatch See Detail HOSPITAL COURSE: Date of Admission:05/08/18 Date of Discharge: 05/10/18 HPI on Admission: 63 y/o female with PMH of COPD on home 02 3L, asthma, CHF, HLD, HTN, ESRD on HD , chronic back pain, asthma presents to the ED with worsening shortness of breath associated with cough and increased thick yellow/green sputum for the past few days. Of note she was recently hospitalized for another COPD exacerbation. She has had multiple admissions in the past for COPD exacerbations. Of note, she also missed her scheduled HD session. She denies any sick contacts at home, any recent travel . She usually sleeps with 3 pillows at night and can only walk a few blocks before getting dyspneic. Hospital Course: She was given dialysis and seen by a linemarker who gave Procrit for her anemia. She was found to still be anemic and was given one unit of blood in addition to the procrit. She was seen by a newspaper delivery driver who recommended IV steroids for 24-48. She was also seen by a psychiatrist who recommended Cymbalta to be dosed at 30 mg per day which was her home dose. She was deemed medically safe for discharge with close follow up by her primary care, pulmonology, and nephrology. She was discharged with 40 mg PO Prednisone daily until she can be seen by pulmonology outpatient for further management. Minutes to complete discharge: 35 Discharge Summary Reason For Visit: CHRONIC OBSTRUCTIVE PULMONARY DISEASE Current Active Problems COPD exacerbation (Acute) ESRD (end stage renal disease) on dialysis (Acute) NSTEMI (non-ST elevated myocardial infarction) (Acute) Condition: Stable - Instructions Diet, Activity, Other Instructions: You were admitted because you missed dialysis and were having some difficulty breathing. You were given dialysis and seen by a linemarker (kidney doctor) who gave you a medication called Procrit to help with your anemia caused by your kidney failure. You were found to be anemic and were given one unit of blood in addition to the procrit. You were seen by a newspaper delivery driver who recommended IV steroids for 24-48 hours until your breathing improved. You were also seen by a psychiatrist who recommended your Cymbalta dose continue at 30 mg per day. You are being discharged with 6 days of Prednisone 40 mg by mouth daily. This will give guarantee you have enough until you can follow up with the newspaper delivery driver this week. You should resume all of your other home medications as they are prescribed prior to admission to the hospital. You should follow up with your primary care physician within a few days of discharge from the hospital to verify that you are continuing to improve. You should have routine blood work drawn to make sure that your hemoglobin levels are stable and improving following the Procrit and blood that was given. You should follow up with a newspaper delivery driver THIS WEEK to further manage your significant lung disease. Again, it is very important that you follow up with the newspaper delivery driver. You should also follow up with a Padder Cushion within 1 week of discharge so that they can further manage the complications of your kidney failure including your anemia. If you have severe difficulty breathing, mental status changes, or any other concerning symptoms, you should be evaluated by your doctor or return to the emergency department. Referrals: Jean Paul León MD [Staff Physician] - Sofy Coe MD [Staff Physician] - Lisette White MD [Staff Physician] - Disposition: HOME - Home Medications Comprehensive Discharge Medication List: Ambulatory Orders Ibuprofen [Motrin -] 400 mg PO QID PRN #28 tablet 02/23/18 Methocarbamol [Robaxin -] 500 mg PO BID PRN #14 tablet 02/23/18 Lidocaine 5% Patch [Lidoderm -] 1 patch TP DAILY #7 patch 03/02/18 Albuterol 2.5/Ipratropium 0.5 [Duoneb -] 1 amp NEB Q6H PRN amp 03/14/18 Albuterol Sulfate Inhaler - [Ventolin HFA Inhaler -] 2 puff IH QID PRN 04/26/18 Guaifenesin AC [Robitussin AC -] 5 ml PO TID PRN #60 liquid MDD 15 ml 04/29/18 Melatonin 5 mg PO HS PRN tab 04/29/18 Atorvastatin Ca [Lipitor] 10 mg PO DAILY 05/05/18 Duloxetine HCl [Cymbalta] 30 mg PO DAILY 05/05/18 Gabapentin [Neurontin -] 300 mg PO TID 05/05/18 Nicotine [Nicotine Patch 14mg/24 hr] 1 each TD DAILY #30 patch.td24 05/05/18 Amlodipine Besylate [Norvasc -] 2.5 mg PO DAILY #15 tablet 05/06/18 Budesonide/Formeterol Fumarate [SYMBICORT 160/4.5mcg -] 2 puff IH BID #1 inhaler 05/06/18 Varenicline Tartrate [Chantix -] 0.5 mg PO DAILY #30 tab 05/06/18 oxyCODONE HCL [Roxicodone -] 5 mg PO Q6H PRN #20 tablet MDD 4 05/06/18 predniSONE [Deltasone -] 40 mg PO DAILY #12 tablet 05/10/18 This patient is new to me today: No Emergency Visit: Yes ED Registration Date: 05/08/18 Care time: The patient presented to the Emergency Department on the above date and was hospitalized for further evaluation of their emergent condition. Critical Care patient: No - Discharge Referral Referred to [facility] No
--- NOTE | 2018-05-10 13:39 | PN ---
Progress Note, Physician History of Present Illness: Pt seen and examined at bedside. She is awake and alert. She tolerating HD. - Current Medication List Current Medications: Active Medications Acetaminophen (Tylenol -) 650 mg PO Q6H PRN PRN Reason: PAIN 1-3 Last Admin: 05/10/18 11:42 Dose: 650 mg Albuterol Sulfate (Ventolin 0.042trength) -) 1 amp NEB Q4H PRN PRN Reason: SHORT OF BREATH/WHEEZING Last Admin: 05/10/18 02:45 Dose: 1 amp Albuterol/Ipratropium (Duoneb -) 1 amp NEB RQID [facility] Last Admin: 05/10/18 13:09 Dose: 1 amp Amlodipine Besylate (Norvasc -) 2.5 mg PO DAILY [facility] Last Admin: 05/10/18 11:42 Dose: 2.5 mg Atorvastatin Calcium (Lipitor -) 10 mg PO HS [facility] Last Admin: 05/09/18 21:18 Dose: 10 mg Azithromycin (Zithromax -) 250 mg PO DAILY [facility] Last Admin: 05/10/18 11:42 Dose: 250 mg Budesonide/Formoterol Fumarate (Symbicort 160/4.5mcg -) 2 puff IH BID [facility] Last Admin: 05/10/18 11:43 Dose: Not Given Duloxetine HCl (Cymbalta -) 30 mg PO DAILY [facility] Last Admin: 05/10/18 11:42 Dose: 30 mg Gabapentin (Neurontin -) 300 mg PO TID [facility] Last Admin: 05/10/18 05:51 Dose: 300 mg Guaifenesin (Robitussin Dm -) 10 ml PO Q8H PRN PRN Reason: COUGH Last Admin: 05/09/18 02:18 Dose: 10 ml Heparin Sodium (Porcine) (Heparin -) 5,000 unit SQ TID [facility] Last Admin: 05/10/18 05:51 Dose: 5,000 unit Hydrochlorothiazide (Hctz -) 12.5 mg PO DAILY [facility] Last Admin: 05/10/18 11:42 Dose: 12.5 mg Sodium Chloride (Normal Saline -) 250 mls @ 3,000 mls/hr IV PRN PRN PRN Reason: Hypotension during Dialysis Stop: 05/10/18 18:00 Melatonin (Melatonin) 5 mg PO HS PRN PRN Reason: INSOMNIA Last Admin: 05/09/18 22:07 Dose: 5 mg Methylprednisolone Sodium Succinate (Solu-Medrol -) 40 mg IVPUSH Q8H-IV JACKY Last Admin: 05/10/18 11:42 Dose: 40 mg Oxycodone HCl (Roxicodone -) 5 mg PO Q6H PRN PRN Reason: PAIN LEVEL 4 - 6 Last Admin: 05/10/18 11:42 Dose: 5 mg Pantoprazole Sodium (Protonix -) 40 mg PO DAILY [facility] Last Admin: 05/10/18 11:42 Dose: 40 mg Varenicline (Chantix -) 0.5 mg PO DAILY [facility] Last Admin: 05/10/18 11:41 Dose: 0.5 mg - Objective Vital Signs: Vital Signs Temperature 98.2 F 05/10/18 07:20 Pulse Rate 79 05/10/18 11:29 Respiratory Rate 20 05/10/18 11:29 Blood Pressure 138/74 05/10/18 11:29 O2 Sat by Pulse Oximetry (%) 97 05/10/18 08:35 Constitutional: Yes: Calm Eyes: Yes: Conjunctiva Clear HENT: Yes: Atraumatic Cardiovascular: Yes: S1, S2 Respiratory: Yes: Wheezes Gastrointestinal: Yes: Soft Genitourinary: Yes: WNL Musculoskeletal: Yes: WNL Edema: No Neurological: Yes: Oriented Labs: CBC, BMP 05/10/18 07:30 05/10/18 07:30 INR, PTT INR 1.13 (0.83-1.09) H 05/08/18 11:30 Problem List - Problems (1) COPD exacerbation Code(s): J44.1 - CHRONIC OBSTRUCTIVE PULMONARY DISEASE W (ACUTE) EXACERBATION (2) ESRD (end stage renal disease) on dialysis Code(s): N18.6 - END STAGE RENAL DISEASE; Z99.2 - DEPENDENCE ON RENAL DIALYSIS Assessment/Plan Current Medications Generic Name Dose Route Start Last Admin Trade Name Freq PRN Reason Stop Dose Admin Acetaminophen 650 mg 05/09/18 10:47 05/10/18 11:42 Tylenol - PO 650 mg Q6H PRN Administration PAIN 1-3 Albuterol Sulfate 1 amp 05/09/18 07:58 05/10/18 02:45 Ventolin 0.042trength) - NEB 1 amp Q4H PRN Administration SHORT OF BREATH/WHEEZING Albuterol/Ipratropium 1 amp 05/09/18 08:00 05/10/18 13:09 Duoneb - NEB 1 amp RQID JACKY Administration Amlodipine Besylate 2.5 mg 05/09/18 10:00 05/10/18 11:42 Norvasc - PO 2.5 mg DAILY JACKY Administration Atorvastatin Calcium 10 mg 05/09/18 22:00 05/09/18 21:18 Lipitor - PO 10 mg HS JACKY Administration Azithromycin 250 mg 05/09/18 10:00 05/10/18 11:42 Zithromax - PO 250 mg DAILY JACKY Administration Budesonide/Formoterol Fumarate 2 puff 05/08/18 22:00 05/10/18 11:43 Symbicort 160/4.5mcg - IH Not Given BID JACKY Duloxetine HCl 30 mg 05/10/18 10:00 05/10/18 11:42 Cymbalta - PO 30 mg DAILY JACKY Administration Gabapentin 300 mg 05/08/18 22:00 05/10/18 05:51 Neurontin - PO 300 mg TID JACKY Administration Guaifenesin 10 ml 05/09/18 01:21 05/09/18 02:18 Robitussin Dm - PO 10 ml Q8H PRN Administration COUGH Heparin Sodium (Porcine) 5,000 unit 05/08/18 22:00 05/10/18 05:51 Heparin - SQ 5,000 unit TID JACKY Administration Hydrochlorothiazide 12.5 mg 05/09/18 10:00 05/10/18 11:42 Hctz - PO 12.5 mg DAILY JACKY Administration Sodium Chloride 250 mls @ 3,000 mls/hr 05/10/18 06:56 Normal Saline - IV 05/10/18 18:00 PRN PRN Hypotension during Dialysis Melatonin 5 mg 05/08/18 20:25 05/09/18 22:07 Melatonin PO 5 mg HS PRN Administration INSOMNIA Methylprednisolone Sodium Succinate 40 mg 05/08/18 21:15 05/10/18 11:42 Solu-Medrol - IVPUSH 40 mg Q8H-IV JACKY Administration Oxycodone HCl 5 mg 05/09/18 06:22 05/10/18 11:42 Roxicodone - PO 5 mg Q6H PRN Administration PAIN LEVEL 4 - 6 Pantoprazole Sodium 40 mg 05/09/18 13:15 05/10/18 11:42 Protonix - PO 40 mg DAILY JACKY Administration Varenicline 0.5 mg 05/09/18 10:00 05/10/18 11:41 Chantix - PO 0.5 mg DAILY JACKY Administration Impression 1. ESRD 2. wheezing 3. chronic back pain 4. anemia 5. anxiety 6. hx of nsaid use 7. chf diastolic 8. possible complex renal cyst 9. HLD 10. nephrolithiasis 11. copd Plan - HD today - epogen for anemia - prbc transfusion - pt has HD set up as outpt - steroids per pulmonary - will follow
--- NOTE | 2018-05-10 15:23 | PN ---
Progress Note (short form) - Note Progress Note: PULMONARY Breathing about the same. Vital Signs Period Temp Pulse Resp BP Sys/Bills Pulse Ox Last 24 Hr 97.8 F-99.2 F 79-104 18-22 120-145/60-90 97-97 Gen: NAD at rest Heart: RRR Lung: scattered rhonchi Abd: soft, nontender Ext: no edema CBC, BMP 05/10/18 07:30 05/10/18 07:30 Active Medications Acetaminophen (Tylenol -) 650 mg PO Q6H PRN PRN Reason: PAIN 1-3 Last Admin: 05/10/18 11:42 Dose: 650 mg Albuterol Sulfate (Ventolin 0.042trength) -) 1 amp NEB Q4H PRN PRN Reason: SHORT OF BREATH/WHEEZING Last Admin: 05/10/18 02:45 Dose: 1 amp Albuterol/Ipratropium (Duoneb -) 1 amp NEB RQID [facility] Last Admin: 05/10/18 13:09 Dose: 1 amp Amlodipine Besylate (Norvasc -) 2.5 mg PO DAILY [facility] Last Admin: 05/10/18 11:42 Dose: 2.5 mg Atorvastatin Calcium (Lipitor -) 10 mg PO HS [facility] Last Admin: 05/09/18 21:18 Dose: 10 mg Azithromycin (Zithromax -) 250 mg PO DAILY [facility] Last Admin: 05/10/18 11:42 Dose: 250 mg Budesonide/Formoterol Fumarate (Symbicort 160/4.5mcg -) 2 puff IH BID [facility] Last Admin: 05/10/18 11:43 Dose: Not Given Duloxetine HCl (Cymbalta -) 30 mg PO DAILY [facility] Last Admin: 05/10/18 11:42 Dose: 30 mg Gabapentin (Neurontin -) 300 mg PO TID [facility] Last Admin: 05/10/18 14:43 Dose: 300 mg Guaifenesin (Robitussin Dm -) 10 ml PO Q8H PRN PRN Reason: COUGH Last Admin: 05/09/18 02:18 Dose: 10 ml Heparin Sodium (Porcine) (Heparin -) 5,000 unit SQ TID [facility] Last Admin: 05/10/18 14:43 Dose: Not Given Hydrochlorothiazide (Hctz -) 12.5 mg PO DAILY [facility] Last Admin: 05/10/18 11:42 Dose: 12.5 mg Sodium Chloride (Normal Saline -) 250 mls @ 3,000 mls/hr IV PRN PRN PRN Reason: Hypotension during Dialysis Stop: 05/10/18 18:00 Melatonin (Melatonin) 5 mg PO HS PRN PRN Reason: INSOMNIA Last Admin: 05/09/18 22:07 Dose: 5 mg Methylprednisolone Sodium Succinate (Solu-Medrol -) 40 mg IVPUSH Q8H-IV [facility]ACKY Last Admin: 05/10/18 11:42 Dose: 40 mg Oxycodone HCl (Roxicodone -) 5 mg PO Q6H PRN PRN Reason: PAIN LEVEL 4 - 6 Last Admin: 05/10/18 11:42 Dose: 5 mg Pantoprazole Sodium (Protonix -) 40 mg PO DAILY [facility] Last Admin: 05/10/18 11:42 Dose: 40 mg Varenicline (Chantix -) 0.5 mg PO DAILY [facility] Last Admin: 05/10/18 11:41 Dose: 0.5 mg A/P Acute COPD Exacerbation LV Diastolic Dysfunction ESRD on HD HTN Hyperlipidemia Lung Nodule Smoker - can change steroids to PO and taper as outpt - inhaled bronchodilators - smoking cessation - HD per renal - DVT prophylaxis - PET scan as outpt
[2018-05-10] MEDS: guaiFENesin/D-METHORPHAN HB 10 ML UNIT-DOSE CUPS PO PRN (19:45)
[2018-05-10] MEDS: MELATONIN 5 MG TABLETS PO PRN (19:45)
[2018-05-10 22:03] LABS: HEMATOCRIT 27.6 % (32.4-45.2); HEMOGLOBIN 9.3 GM/dL (10.7-15.3); MCH 30.4 pg (25.7-33.7); MCHC 33.5 g/dl (32.0-36.0); MEAN CELL VOLUME 90.6 fl (80-96); MEAN PLT VOLUME 8.1 fl (7.5-11.1); PLATELET COUNT 344 K/MM3 (134-434); RBC 3.04 M/mm3 (3.60-5.2); RDW 17.6 % (11.6-15.6); WHITE BLOOD COUNT 13.6 K/mm3 (4.0-10.0)
[2018-05-10 22:33] LABS: ALBUMIN 3.2 g/dl (3.4-5.0); ALK PHOS 207 U/L (45-117); ANION GAP 13 MMOL/L (8-16); BILIRUBIN,TOTAL 1.8 mg/dL (0.2-1); BLOOD UREA NITROGEN 41 mg/dL (7-18); CALCIUM 7.3 mg/dL (8.5-10.1); CHLORIDE 101 mmol/L (98-107); CO2 26 mmol/L (21-32); CREATININE 2.7 mg/dL (0.55-1.3); GLUCOSE,RANDOM 145 mg/dL (74-106); POTASSIUM 3.5 mmol/L (3.5-5.1); SGOT/AST 15 U/L (15-37); SGPT/ALT 34 U/L (13-61); SODIUM 139 mmol/L (136-145); TOT PROT 6.4 g/dl (6.4-8.2)
[2018-05-10] MEDS: ATORVASTATIN CA 10 MG TABLET (FP) PO SCH (22:51)
[2018-05-11] MEDS: methylPREDNISolone NA SUCC 40 MG/1 ML VIAL IVPUSH SCH ×2 (01:03→10:08)
[2018-05-11] MEDS: oxyCODONE HCL 5 MG TABLET PO PRN ×3 (01:29→13:56)
[2018-05-11] MEDS: ACETAMINOPHEN 325 MG TABLET (FP) PO PRN ×3 (01:29→13:56)
[2018-05-11] MEDS: ALBUTEROL SO4 0.042% IH SOL 1.25 MG/3 ML VIAL.NEB NEB PRN (02:58)
[2018-05-11] MEDS: guaiFENesin/D-METHORPHAN HB 10 ML UNIT-DOSE CUPS PO PRN (05:37)
[2018-05-11] MEDS: GABAPENTIN 300 MG CAPSULE (FP) PO SCH ×2 (06:15→13:54)
[2018-05-11] MEDS: HEPARIN NA (PORCINE) 5,000 UNITS/ML 1ML VIAL SQ SCH ×2 (06:15→13:54)
[2018-05-11] MEDS: ALBUTEROL SO4 2.5/IPRATROPIUM 0.5 INH SOL 3 ML VIAL.NEB. NEB SCH (08:45)
[2018-05-11 09:49] LABS: ALBUMIN 3.3 g/dl (3.4-5.0); BILIRUBIN,DIRECT 0.2 mg/dL (0.0-0.2); BILIRUBIN,TOTAL 0.7 mg/dL (0.2-1); TOT PROT 6.6 g/dl (6.4-8.2)
[2018-05-11] MEDS: AZITHROMYCIN 250 MG TABLET PO SCH (10:08)
[2018-05-11] MEDS: PANTOPRAZOLE 40 MG TABLET (FP) PO SCH (10:08)
[2018-05-11] MEDS: DULoxetine HCL 30 MG CAPSULE.DR (FP) PO SCH (10:08)
[2018-05-11] MEDS: amLODIPine BESYLATE 2.5 MG TABLET (FP) PO SCH (10:08)
[2018-05-11] MEDS: HYDROCHLOROTHIAZIDE 12.5 MG CAPSULE (FP) PO SCH (10:08)
[2018-05-11] MEDS: BUDESONIDE/FORMETEROL FUMARATE 160/4.5 mcg INHALER IH SCH (10:09)
[2018-05-11] MEDS: VARENICLINE TARTRATE 0.5 MG TAB PO SCH (10:11)
[2018-05-11] MEDS ORDERED: PT OWN MED DRAWER 7, Y5N ONE (10:11)
[2018-05-11 15:39] VITALS: BP 140/66; PULSE 102; TEMP 98.4
--- NOTE | 2018-05-11 15:56 | DS ---
Physical Exam: SUBJECTIVE: Still displaying oppositional and belligerent behavior. Dyspnea much improved. OBJECTIVE: Afebrile, Hemodynamically Stable. Last Vital Signs Temp Pulse Resp BP Pulse Ox 98.4 F 102 H 20 140/66 95 05/11/18 14:15 05/11/18 14:15 05/11/18 14:15 05/11/18 14:15 05/11/18 07:43 Head - Atraumatic, Normocephalic. HEART: S1,S2, RRR LUNGS: ocassional bilateral wheeze. [place] air entry ABDOMEN: Soft, non-tender, normal Bowel Sounds. EXTREMITIES: No edema, no calf tenderness Neuro: AAO x 3. Tone/Power normal all 4 extremities. Laboratory Results - last 24 hr 05/10/18 05/10/18 05/11/18 21:50 21:50 09:00 WBC 13.6 H RBC 3.04 L Hgb 9.3 L Hct 27.6 L D MCV 90.6 MCH 30.4 MCHC 33.5 RDW 17.6 H Plt Count 344 MPV 8.1 Sodium 139 Potassium 3.5 Chloride 101 Carbon Dioxide 26 Anion Gap 13 BUN 41 H Creatinine 2.7 H Creat Clearance w eGFR 17.92 Random Glucose 145 H Calcium 7.3 L Total Bilirubin 1.8 H 0.7 Direct Bilirubin 0.2 AST 15 18 ALT 34 37 Alkaline Phosphatase 207 H 223 H Total Protein 6.4 6.6 Albumin 3.2 L 3.3 L Current Medications Generic Name Dose Route Start Last Admin Trade Name Freq PRN Reason Stop Dose Admin Acetaminophen 650 mg 05/09/18 10:47 05/11/18 13:56 Tylenol - PO 650 mg Q6H PRN Administration PAIN 1-3 Albuterol Sulfate 1 amp 05/09/18 07:58 05/11/18 02:58 Ventolin 0.042trength) - NEB 1 amp Q4H PRN Administration SHORT OF BREATH/WHEEZING Albuterol/Ipratropium 1 amp 05/09/18 08:00 05/11/18 08:45 Duoneb - NEB 1 amp RQID JACKY Administration Amlodipine Besylate 2.5 mg 05/09/18 10:00 05/11/18 10:08 Norvasc - PO 2.5 mg DAILY JACKY Administration Atorvastatin Calcium 10 mg 05/09/18 22:00 05/10/18 22:51 Lipitor - PO 10 mg HS JACKY Administration Azithromycin 250 mg 05/09/18 10:00 05/11/18 10:08 Zithromax - PO 250 mg DAILY JACKY Administration Budesonide/Formoterol Fumarate 2 puff 05/08/18 22:00 05/11/18 10:09 Symbicort 160/4.5mcg - IH 2 puff BID JACKY Administration Duloxetine HCl 30 mg 05/10/18 10:00 05/11/18 10:08 Cymbalta - PO 30 mg DAILY JACKY Administration Gabapentin 300 mg 05/08/18 22:00 05/11/18 13:54 Neurontin - PO 300 mg TID JACKY Administration Guaifenesin 10 ml 05/09/18 01:21 05/11/18 05:37 Robitussin Dm - PO 10 ml Q8H PRN Administration COUGH Heparin Sodium (Porcine) 5,000 unit 05/08/18 22:00 05/11/18 13:54 Heparin - SQ 5,000 unit TID JACKY Administration Hydrochlorothiazide 12.5 mg 05/09/18 10:00 05/11/18 10:08 Hctz - PO 12.5 mg DAILY [facility]ACK[facility] Administration Melatonin 5 mg 05/08/18 20:25 05/10/18 19:45 Melatonin PO 5 mg HS PRN Administration INSOMNIA Methylprednisolone Sodium Succinate 40 mg 05/08/18 21:15 05/11/18 10:08 Solu-Medrol - IVPUSH 40 mg Q8H-IV JACKY Administration Oxycodone HCl 5 mg 05/09/18 06:22 05/11/18 13:56 Roxicodone - PO 5 mg Q6H PRN Administration PAIN LEVEL 4 - 6 Pantoprazole Sodium 40 mg 05/09/18 13:15 05/11/18 10:08 Protonix - PO 40 mg DAILY [facility]ACK[facility] Administration Varenicline 0.5 mg 05/09/18 10:00 05/11/18 10:11 Chantix - PO 0.5 mg DAILY JACKY Administration Date of Admission:05/08/18 Date of Discharge: 05/11/18 Minutes to complete discharge: 45 Discharge Summary Reason For Visit: CHRONIC OBSTRUCTIVE PULMONARY DISEASE Current Active Problems COPD exacerbation (Acute) ESRD (end stage renal disease) on dialysis (Acute) NSTEMI (non-ST elevated myocardial infarction) (Acute) Hospital Course: 63 year old female with history of chronic hypoxic respiratory failure sec to COPD, chronic diastolic heart failure, HTN, hyperlipidemia, hypothyroidism, ESRD , GERD, depression, anxiety, iron deficiency anemia, peripheral neuropathy, ovarian cancer, chronic back pain who presented with shortness of breath and productive cough. She had been admitted on 05/03 for COPD exacerbation and was treated with Symbicort, Prednisone, albuterol nebs. She again was treated on this admission for the same with IV Solumedrol, now much improved and medically stable for discharge. 1. Acute on Chronic Respiratory Failure sec to Acute Exacerbation of COPD Failed treatment with oral Prednisone Continue Symbicort Clinically improved on IV SoluMedrol, Zithromax, DuoNeb, albuterol nebs as needed - will discharge on Prednisone 40mg, 2 additional days of Zithromax and Pulm follow up. Patient has home O2 and will continue O2 and Nebs on discharge. 2. Elevated troponin, likely demand ischemia TnI max 0.09 ?reduced renal clearance vs demand ischemia. No chest pain. Cardiology follow up as an out-patient. 3. Chronic diastolic heart failure - no evidence of acute decompensation. 4. HTN - Continue Norvasc, HCTZ 5. Anxiety, Impulsivity, Beligerence - HIstory of Anxiety/Depression - on Cymbalta. Required Ativan 1mg 05/09/18. Psych consulted and increase Cymbalta dose to 30mg. 6. Hyperlipidemia - Continue Lipitor 7. Hypothyroidism reported Not on medications - TSH 1.6 8. ESRD on HD - receiving HD 05/10/18 - for HD 05/12/18 9. GERD - continue PPI while on steroid. 10. Anemia secondary to iron deficiency and CKD H/H 7.08/11. Epogen with HD as per Nephrology 11. Peripheral neuropathy - Continue Neurontin 12. Chronic back pain - Continue Neurontin, Cymbalta, Lidoderm patch, oxycodone as needed 13. Nicotine dependence - Continue Chantix Medically optimized for discharge on above regimen with Pulm follow up. Condition: Good - Instructions Diet, Activity, Other Instructions: You were admitted because you missed dialysis and were having some difficulty breathing. You were given dialysis and seen by a maori physiotherapist (kidney doctor) who gave you a medication called Procrit to help with your anemia caused by your kidney failure. You were found to be anemic and were given one unit of blood in addition to the procrit. You were seen by a separator inserter who recommended IV steroids for 24-48 hours until your breathing improved. You were also seen by a psychiatrist who recommended your Cymbalta dose continue at 30 mg per day. You are being discharged with 6 days of Prednisone 40 mg by mouth daily. This will give guarantee you have enough until you can follow up with the separator inserter this week. You should resume all of your other home medications as they are prescribed prior to admission to the hospital. You should follow up with your primary care physician within a few days of discharge from the hospital to verify that you are continuing to improve. You should have routine blood work drawn to make sure that your hemoglobin levels are stable and improving following the Procrit and blood that was given. You should follow up with a separator inserter THIS WEEK to further manage your significant lung disease. Again, it is very important that you follow up with the separator inserter. You should also follow up with a Presiding Steward within 1 week of discharge so that they can further manage the complications of your kidney failure including your anemia. If you have severe difficulty breathing, mental status changes, or any other concerning symptoms, you should be evaluated by your doctor or return to the emergency department. Referrals: Lisette White MD [Staff Physician] - Jean Paul León MD [Staff Physician] - Sofy Coe MD [Staff Physician] - Disposition: HOME - Home Medications Comprehensive Discharge Medication List: Ambulatory Orders Ibuprofen [Motrin -] 400 mg PO QID PRN #28 tablet 02/23/18 Methocarbamol [Robaxin -] 500 mg PO BID PRN #14 tablet 02/23/18 Lidocaine 5% Patch [Lidoderm -] 1 patch TP DAILY #7 patch 03/02/18 Albuterol 2.5/Ipratropium 0.5 [Duoneb -] 1 amp NEB Q6H PRN amp 03/14/18 Albuterol Sulfate Inhaler - [Ventolin HFA Inhaler -] 2 puff IH QID PRN 04/26/18 Guaifenesin AC [Robitussin AC -] 5 ml PO TID PRN #60 liquid MDD 15 ml 04/29/18 Melatonin 5 mg PO HS PRN tab 04/29/18 Atorvastatin Ca [Lipitor] 10 mg PO DAILY 05/05/18 Duloxetine HCl [Cymbalta] 30 mg PO DAILY 05/05/18 Gabapentin [Neurontin -] 300 mg PO TID 05/05/18 Nicotine [Nicotine Patch 14mg/24 hr] 1 each TD DAILY #30 patch.td24 05/05/18 Amlodipine Besylate [Norvasc -] 2.5 mg PO DAILY #15 tablet 05/06/18 Budesonide/Formeterol Fumarate [SYMBICORT 160/4.5mcg -] 2 puff IH BID #1 inhaler 05/06/18 Varenicline Tartrate [Chantix -] 0.5 mg PO DAILY #30 tab 05/06/18 oxyCODONE HCL [Roxicodone -] 5 mg PO Q6H PRN #20 tablet MDD 4 05/06/18 predniSONE [Deltasone -] 40 mg PO DAILY #12 tablet 05/10/18 This patient is new to me today: No Emergency Visit: Yes ED Registration Date: 05/08/18 Care time: The patient presented to the Emergency Department on the above date and was hospitalized for further evaluation of their emergent condition. Critical Care patient: No - Discharge Referral Referred to [facility] Med P.C.: No
[2018-05-11] MEDS ORDERED: predniSONE 20 MG TABLET (UD) PO ONE (16:01)
--- NOTE | 2018-05-11 17:36 | PN ---
Progress Note, Physician History of Present Illness: Pt seen and examined at bedside. She is awake and alert. She says that she feels well. - Objective Vital Signs: Vital Signs Temperature 98.4 F 05/11/18 14:15 Pulse Rate 102 H 05/11/18 14:15 Respiratory Rate 05/11/18 14:15 Blood Pressure 140/66 05/11/18 14:15 O2 Sat by Pulse Oximetry (%) 95 05/11/18 07:43 Constitutional: Yes: Calm Eyes: Yes: Conjunctiva Clear HENT: Yes: Atraumatic Cardiovascular: Yes: S1, S2 Respiratory: Yes: Wheezes Gastrointestinal: Yes: Soft Musculoskeletal: Yes: WNL Edema: No Neurological: Yes: Oriented Psychiatric: Yes: Oriented Labs: CBC, BMP 05/10/18 21:50 05/10/18 21:50 INR, PTT INR 1.13 (0.83-1.09) H 05/08/18 11:30 Problem List - Problems (1) COPD exacerbation Code(s): J44.1 - CHRONIC OBSTRUCTIVE PULMONARY DISEASE W (ACUTE) EXACERBATION (2) ESRD (end stage renal disease) on dialysis Code(s): N18.6 - END STAGE RENAL DISEASE; Z99.2 - DEPENDENCE ON RENAL DIALYSIS Assessment/Plan Impression 1. ESRD 2. wheezing 3. chronic back pain 4. anemia 5. anxiety 6. hx of nsaid use 7. chf diastolic 8. possible complex renal cyst 9. HLD 10. nephrolithiasis 11. copd Plan - pt has HD set up as outpt on Saturday - steroids with taper - will see as outpt - hg is improved - steroids per pulmonary - will follow
== END 2018-05-11 16:59 | disposition home or self-care (01) | DRG 133 ==
LOC: JER 10:10 → JERBED 12:52 → J4W 21:52
PROVIDERS: ADMIT Internal Medicine
PROC: 5A1D70Z Performance of Urinary Filtration, Intermittent, Less than 6 Hours Per Day (ICD-10-PCS; principal; 2018-05-08)
PROC: 5A1D70Z Performance of Urinary Filtration, Intermittent, Less than 6 Hours Per Day (ICD-10-PCS; 2018-05-10)
DX: J96.21 Acute and chronic respiratory failure with hypoxia (principal); J44.1 Chronic obstructive pulmonary disease with (acute) exacerbation; E78.5 Hyperlipidemia, unspecified; F03.90 Unspecified dementia, unspecified severity, without behavioral disturbance, psychotic disturbance, mood disturbance, and anxiety; G62.89 Other specified polyneuropathies; K29.60 Other gastritis without bleeding; F41.8 Other specified anxiety disorders; M54.5 Low back pain; N28.1 Cyst of kidney, acquired; N20.0 Calculus of kidney; G89.29 Other chronic pain; E03.9 Hypothyroidism, unspecified; K21.9 Gastro-esophageal reflux disease without esophagitis; I24.8 Other forms of acute ischemic heart disease; D50.9 Iron deficiency anemia, unspecified; R91.1 Solitary pulmonary nodule; D63.8 Anemia in other chronic diseases classified elsewhere; I13.2 Hypertensive heart and chronic kidney disease with heart failure and with stage 5 chronic kidney disease, or end stage renal disease; N18.6 End stage renal disease; I50.32 Chronic diastolic (congestive) heart failure; Z99.2 Dependence on renal dialysis; Z85.43 Personal history of malignant neoplasm of ovary; Z87.891 Personal history of nicotine dependence; Z99.81 Dependence on supplemental oxygen; Z96.643 Presence of artificial hip joint, bilateral; Z91.14 Patient's other noncompliance with medication regimen
CPT/HCPCS: 36415; 36430; 71045-TC-FY; 80048; 80053; 80076; 82040; 83735; 84100; 84443; 84484; 85025; 85027; 85044; 85610; 86850; 86900; 86901; 86922; 93005; 93010; 94640; 99283-25; J0131; J0885; J1644; P9038; P9058

== ENCOUNTER 2018-05-13 08:19 | Inpatient (IN) | payer OTHER ==
[2018-05-13] MEDS ORDERED: ACETAMINOPHEN 1000 MG/100 ML VIAL (NON FORMULARY) IVPB ONE (09:55)
[2018-05-13] MEDS ORDERED: oxyCODONE HCL 5 MG TABLET PO ONE (09:55)
[2018-05-13] MEDS ORDERED: ALBUTEROL SO4 2.5/IPRATROPIUM 0.5 INH SOL 3 ML VIAL.NEB. NEB ONE ×3 (10:06→16:07)
[2018-05-13] MEDS ORDERED: predniSONE 20 MG TABLET (UD) PO ONE (10:06)
[2018-05-13] MEDS ORDERED: predniSONE 20 MG TABLET (UD) ONE ×2 (10:30→10:32)
[2018-05-13] MEDS ORDERED: ACETAMINOPHEN INJECTION 100 ML IVPB ONE (10:31)
[2018-05-13] MEDS ORDERED: oxyCODONE HCL 5 MG TABLET ONE ×2 (10:31→17:45)
--- NOTE | 2018-05-13 10:38 | PDOC ---
History of Present Illness - General Chief Complaint: Injury Stated Complaint: FALL Time Seen by Provider: 05/13/18 09:05 History Source: Patient - History of Present Illness Initial Comments: Patient is a 63 y/o F w/ extensive PMHx including COPD on 3L home O2, CHF, ESRD on HD (scheduled for today), MDD, HLD, HTN, recently hospitalized for COPD exacerbation and discharged on 05/10 on home ABx and a PO steroid taper, presents w/ CC 2 falls from bed causing trauma to the head, face, neck, and shoulder all on the right side. Patient states her son was able to pick her up and get her back into bed after the first fall. She was unable to get off the floor after the second fall and called EMS. She is highly tangential, emotive, and demonstrative and unable to provide a clear timeline or description of the circumstances surrounding the falls. She endorses severe pain of the head, face , neck, and shoulder. She is non-ambulatory for unclear reasons involving weakness and deconditioning and is wheelchair-reliant at baseline. In addition to the above, she states that she produces urine and has new onset burning dysuria. The patient is unable to differentiate her current respiratory status from both baseline and during recent COPD exacerbation but endorses SOB, pleuritic pain, and productive cough. She further endorses both generalized weakness and new onset weakness and numbness/tingling of the proximal LLE most pronounced on the anterior aspect. She denies changes in GI status. ROS is otherwise joseph-positive. Tachycardic on presentation. 05/13/18 10:52 Past History - Travel Traveled outside of the country in the last 30 days: No Close contact w/someone who was outside of country & ill: No - Past Medical History Allergies/Adverse Reactions: Allergies Allergy/AdvReac Type Severity Reaction Status Date / Time levofloxacin [From Levaquin] Allergy Mild Itching Verified 05/13/18 08:25 Home Medications: Ambulatory Orders Ibuprofen [Motrin -] 400 mg PO QID PRN #28 tablet 02/23/18 Methocarbamol [Robaxin -] 500 mg PO BID PRN #14 tablet 02/23/18 Lidocaine 5% Patch [Lidoderm -] 1 patch TP DAILY #7 patch 03/02/18 Albuterol 2.5/Ipratropium 0.5 [Duoneb -] 1 amp NEB Q6H PRN amp 03/14/18 Albuterol Sulfate Inhaler - [Ventolin HFA Inhaler -] 2 puff IH QID PRN 04/26/18 Guaifenesin AC [Robitussin AC -] 5 ml PO TID PRN #60 liquid MDD 15 ml 04/29/18 Melatonin 5 mg PO HS PRN tab 04/29/18 Atorvastatin Ca [Lipitor] 10 mg PO DAILY 05/05/18 Duloxetine HCl [Cymbalta] 30 mg PO DAILY 05/05/18 Gabapentin [Neurontin -] 300 mg PO TID 05/05/18 Nicotine [Nicotine Patch 14mg/24 hr] 1 each TD DAILY #30 patch.td24 05/05/18 Amlodipine Besylate [Norvasc -] 2.5 mg PO DAILY #15 tablet 05/06/18 Budesonide/Formeterol Fumarate [SYMBICORT 160/4.5mcg -] 2 puff IH BID #1 inhaler 05/06/18 Varenicline Tartrate [Chantix -] 0.5 mg PO DAILY #30 tab 05/06/18 oxyCODONE HCL [Roxicodone -] 5 mg PO Q6H PRN #20 tablet MDD 4 05/06/18 predniSONE [Deltasone -] 40 mg PO DAILY #12 tablet 05/10/18 Albuterol 2.5/Ipratropium 0.5 [Duoneb -] 1 amp NEB RQID 14 Days #56 amp Azithromycin [Zithromax 250mg Tablets -] 250 mg PO DAILY 2 Days #2 tablet Duloxetine HCl [Cymbalta -] 30 mg PO DAILY 30 Days #30 capsule. 05/11/18 Nebulizer [Aeroneb Go Nebulizer] 1 each MC [id number] 1 Days #1 each 05/11/18 Anemia: Yes Asthma: Yes Cancer: No Cardiac Disorders: Yes CVA: No COPD: Yes CHF: No DVT: No Dementia: No Diabetes: No GI Disorders: Yes (bleeding ulcer) Disorders: Yes (KIDNEY STONE;) HTN: Yes Hypercholesterolemia: Yes Kidney Stones: Yes Liver Disease: No Psychiatric Problems: Yes (ANXIETY, DEPRESSION) Seizures: No Thyroid Disease: Yes (hypothyroid) - Surgical History Abdominal Surgery: No Appendectomy: No Cardiac Surgery: No Cholecystectomy: No Lung Surgery: No Neurologic Surgery: No Orthopedic Surgery: Yes (B/L hip replacement (rt 2009; left 2012)) - Immunization History Td Vaccination: Yes TDAP Vaccination: No Immunization Up to Date: Yes - Suicide/Smoking/Psychosocial Hx Smoking Status: Yes Smoking History: Never smoked Years of Tobacco Use: 30 Have you smoked in the past 12 months: No Number of Cigarettes Smoked Daily: 6 If you are a former smoker, when did you quit?: refused booklet 07/21/14 Cigars Per Day: 0 'Breaking Loose' booklet given: 03/08/18 Hx Alcohol Use: No Drug/Substance Use Hx: No Substance Use Type: None Hx Substance Use Treatment: Yes Review of Systems - Review of Systems Comments:: As per HPI 05/13/18 10:39 *Physical Exam - Vital Signs Last Vital Signs Temp Pulse Resp BP Pulse Ox 104 H 20 157/83 98 05/13/18 08:25 05/13/18 08:25 05/13/18 08:25 05/13/18 08:25 - Physical Exam Comments: Gen: A&Ox3, in distress HEENT: normocephalic, ecchymoses along right forehead and lower face between cheek and mandible, right side of the head/face is diffusely tender to palpation , EOMI, PERRLA, MMM, no oropharyngeal exudates Neck: supple, non-rigid, ecchymoses along right anterior neck, tender to palpation on right side, no LAD, no JVD CV: tachycardic, no m/r/g Resp: coarse breathing, diffuse rhonchi, scant wheezing Abd: +bs, soft, NT, ND Ext: 2+ pulses, wwp, right shoulder markedly TTP, mild TTP in proximal LLE, AV fistula in RUE w/ thrills, no LE edema MSK: endorses focal tenderness of all spinal levels from T5 to S1 Neuro: [place] II-XII intact b/l, motor strength 5/5 in UE b/l, reduced strength of proximal LE b/l and minimal effort to comply with exam, 5/5 dorsi and plantarflexion strength b/l, patient affirms sensory deficit of anterior proximal LLE Psych: anxious, agitated, emotive, demonstrative 05/13/18 10:39 Moderate Sedation - Procedure Monitoring Vital Signs: Procedure Monitoring Vital Signs Temperature Pulse Rate 104 H 05/13/18 08:25 Respiratory Rate 20 05/13/18 08:25 Blood Pressure 157/83 05/13/18 08:25 O2 Sat by Pulse Oximetry (%) 98 05/13/18 08:25 ED Treatment Course - LABORATORY CBC & Chemistry Diagram: 05/13/18 10:25 05/13/18 10:25 - RADIOLOGY Radiology Studies Ordered: Category Date Time Status CERVICAL SPINE CT W/O CONTR [CT] Stat CT Scan 05/13/18 09:[address] W/O CONTRAST [CT] Stat CT Scan 05/13/18 09:[address] WITHOUT CONTRAST [CT] Stat CT Scan 05/13/18 09:[address] W/O CONTRAST [CT] Stat CT Scan 05/13/18 09:[address] WITHOUT CONTRAST [CT] Stat CT Scan 05/13/18 09:[address] W/O CONTRAST [CT] Stat CT Scan 05/13/18 09:56 Ordered CHEST X-RAY PORTABLE* [RAD] Stat Radiology 05/13/18 09:59 Ordered SHOULDER-RIGHT [RAD] Stat Radiology 05/13/18 09:56 Ordered Medical Decision Making - Medical Decision Making For chief complaint of traumatic fall, given the findings of tenderness of the head, face, neck, thoracic and lumbar spine, thigh, and shoulder, ordered the following: non-contrast CT of head, facial bones, c-spine, t-spine, l-spine, pelvis; shoulder XR. Etiology of the fall is unknown, possibilities include mechanical, metabolic, infectious, CVA/TIA. Given tachycardia, possible respiratory exacerbation, and complaint of dysuria, full sepsis w/u additionally ordered. Pain treated with home dose oxycodone and IV acetaminophen , empiric respiratory treatment with duonebs and prednisone per previously scheduled taper (40mg PO). 05/13/18 10:45 WBC 16.1 noted. Timeline of steroid exposure since d/c is unclear. 05/13/18 11:09 Renal status d/w Dr. Coe who will see the patient. 05/13/18 11:11 BMP c/w ESRD noted. Lactate negative. 05/13/18 11:41 Troponin positive to 0.13. Will trend. 05/13/18 12:31 No acute bony pathology on shoulder XR. Mild atelectatic changes on CXR since . 05/13/18 12:43 EKG reassuring, SR w/ PACs. 05/13/18 13:19 HCT shows interval development since November of 0.4cm L internal capsule hypodensity, possibly representing infarct of unknown chronicity. T-spine and L- spine CTs show no acute pathology. 05/13/18 13:[address] negative for acute pathology. 05/13/18 13:[address] negative for acute pathology. 05/13/18 13:[address] findings d/w Dr. Coe. Will postpone HD pending neurology evaluation. D/w Dr. Cowan, placed consult and ordered Brain MRI at his request. 05/13/18 14:[address] C-[address] is negative for acute pathology. D/w Dr. Marie. Per Dr. Marie, this patient has refused office f/u and with agreement of Dr. Cruz hospital care is transferred to [facility]. Placed microblog to [facility] for admission. 05/13/18 14:18 *DC/Admit/Observation/Transfer Diagnosis at time of Disposition: ESRD (end stage renal disease) on dialysis Fall Qualifiers: Encounter type: initial encounter Qualified Code(s): W19.XXXA - Unspecified fall, initial encounter Stroke Qualifiers: CVA mechanism: unspecified Qualified Code(s): I63.9 - Cerebral infarction, unspecified - Discharge Dispostion Condition at time of disposition: Guarded Decision to Admit order: Yes - Referrals - Patient Instructions - Post Discharge Activity
[2018-05-13 10:58] LABS: BASO % 0.3 % (0-2.0); HEMATOCRIT 26.2 % (32.4-45.2); HEMOGLOBIN 8.6 GM/dL (10.7-15.3); LYMPH % 4.4 % (8-40); MCH 29.6 pg (25.7-33.7); MCHC 32.9 g/dl (32.0-36.0); MONO % 7.5 % (3.8-10.2); NEUT % 87.8 % (42.8-82.8); PLATELET COUNT 296 K/MM3 (134-434); RBC 2.91 M/mm3 (3.60-5.2); RDW 17.1 % (11.6-15.6); WHITE BLOOD COUNT 16.1 K/mm3 (4.0-10.0)
[2018-05-13 11:18] LABS: ALBUMIN 3.3 g/dl (3.4-5.0); ALK PHOS 222 U/L (45-117); ANION GAP 18 MMOL/L (8-16); BILIRUBIN,TOTAL 0.6 mg/dL (0.2-1); CALCIUM 7.1 mg/dL (8.5-10.1); CHLORIDE 98 mmol/L (98-107); CO2 22 mmol/L (21-32); GLUCOSE,RANDOM 95 mg/dL (74-106); POTASSIUM 3.6 mmol/L (3.5-5.1); SGOT/AST 18 U/L (15-37); SGPT/ALT 38 U/L (13-61); SODIUM 137 mmol/L (136-145); TOT PROT 6.2 g/dl (6.4-8.2)
[2018-05-13 11:22] LABS: BLOOD UREA NITROGEN 123 mg/dL (7-18)
[2018-05-13 11:23] LABS: INR 1.08 (0.83-1.09); PROTHROMBIN TIME (PATIENT) 12.8 SEC (9.7-13.0)
[2018-05-13 11:26] LABS: ACTIVATED PTT 27.3 SECONDS (25.2-36.5)
--- NOTE | 2018-05-13 12:06 | PDOC ---
Attending Attestation - Resident Resident Name: Kevin Fox - ED Attending Attestation I have performed the following: I have examined & evaluated the patient, The case was reviewed & discussed with the resident, I agree w/resident's findings & plan, Exceptions are as noted - HPI HPI: 05/13/18 12:00 The patient is a 63 year old female, with a significant past medical history of COPD on 3L O2, asthma, CHF-diastolic heart failure, HLD, HTN, ESRD on HD, anemia , chronic back pain, kidney stones, anxiety, who presents to the emergency department via EMS s/p fall out of bed with complaint of right neck, right back , right shoulder and head pain. Pt states she fell out of bed twice. She does not recall why she fell. Does not know if she lost consciousness. The patient denies chest pain, shortness of breath, and dizziness. Denies fever, chills, nausea, vomit, diarrhea and constipation. Denies dysuria, frequency, urgency and hematuria. Allergies: levaquin Past Medical History: COPD, asthma, HTN, ESRD on HD Social history: Lives with family. +smoker, on chantix. No alcohol. No illicit drugs. Surgical history: B/L hip replacement (rt 2009; left 2012) PMD: Dr White - Physicial Exam PE: 05/13/18 12:06 GENERAL: Awake, alert, and fully oriented, in no acute distress. HEAD: mild ecchymosis to forehead EYES: PERRLA, EOMI, sclera anicteric, conjunctiva clear ENT: Auricles normal inspection, hearing grossly normal, nares patent, oropharynx clear without exudates. Moist mucosa NECK: Nontender, no stepoffs, Normal ROM, supple, no lymphadenopathy, JVD, or masses LUNGS: Breath sounds equal, clear to auscultation bilaterally. No wheezes, and no crackles HEART: Regular rate and rhythm, normal S1 and S2, no murmurs, rubs or gallops ABDOMEN: Soft, nontender, normoactive bowel sounds. No guarding, no rebound. No masses EXTREMITIES: Normal range of motion, no edema. No clubbing or cyanosis. No cords, erythema, or tenderness NEUROLOGICAL: Cranial nerves II through XII intact. 5/5 strength and sensation in all extremities, Normal speech, normal gait, normal cerebellar function SKIN: Warm, Dry, normal turgor, no rashes or lesions noted. - Critical Care Time Total Critical Care Time: 45 Critical Care Statement: The care of this patient involved high complexity decision making to prevent further life threatening deterioration of the patient 's condition and/or to evaluate & treat vital organ system(s) failure or risk of failure. - Medical Decision Making 05/13/18 12:06 63 F with multiple falls this morning. Unclear what the etiology of the falls was. Possible syncope. Pt with mild abrasions and ecchymosis to head. Pt is also due for HD today. - Labs - CT head/c-spine - Renal c/s for HD today CT shows possible infarct Neuro consulted Pt admitted to hospitalist
[2018-05-13 12:24] LABS: MAGNESIUM 1.9 mg/dL (1.8-2.4)
[2018-05-13 13:27] LABS: ANISOCYTOSIS 2+; MACROCYTOSIS 0; PLATELET ESTIMATE NORMAL; TEAR DROP CELLS 1+
--- NOTE | 2018-05-13 13:52 | CONSULT ---
Consult Consult Specialty:: Nephrology Reason for Consultation:: ESRD - History of Present Illness Chief Complaint: pt fell out of bed and banged her head History of Present Illness: Pt is a 63 year old female with pmhx of ESRD who presented after falling and hitting her head. She is awake and alert. She complains of right shoulder pain. - History Source History Provided By: Patient, Medical Record - Past Medical History [employer]: Yes: Dementia, Peripheral Neuropathy Cardio/Vascular: Yes: HTN, Hyperlipdemia Pulmonary: Yes: Asthma, Bronchitis, COPD, Pneumonia. No: Pulmonary Embolus, Pulmonary Fibrosis, Sleep Apnea Gastrointestinal: Yes: Gastritis Renal/: Yes: Renal Inusuff, Hemodialysis ...LMP: 07/25/12 Infectious Disease: Yes: MRSA Psych: Yes: Anxiety, Depression Musculoskeletal: Yes: Chronic low back pain Endocrine: Yes: Hyperthyroidism - Past Surgical History Past Surgical History: Yes: AV Fistula/Graft, Joint Replacement (hip replacement ) - Alcohol/Substance Use Hx Alcohol Use: No History of Substance Use: reports: Marijuana - Smoking History Smoking history: Never smoked Have you smoked in the past 12 months: No Aproximately how many cigarettes per day: 6 If you are a former smoker, when did you quit?: refused booklet 07/21/14 - Social History Usual Living Arrangement: With Significant Other ADL: Independent Occupation: not working, SSI History of Recent Travel: No Home Medications - Allergies Allergies/Adverse Reactions: Allergies Allergy/AdvReac Type Severity Reaction Status Date / Time levofloxacin [From Levaquin] Allergy Mild Itching Verified 05/13/18 08:25 - Home Medications Home Medications: Ambulatory Orders Ibuprofen [Motrin -] 400 mg PO QID PRN #28 tablet 02/23/18 Methocarbamol [Robaxin -] 500 mg PO BID PRN #14 tablet 02/23/18 Lidocaine 5% Patch [Lidoderm -] 1 patch TP DAILY #7 patch 03/02/18 Albuterol 2.5/Ipratropium 0.5 [Duoneb -] 1 amp NEB Q6H PRN amp 03/14/18 Albuterol Sulfate Inhaler - [Ventolin HFA Inhaler -] 2 puff IH QID PRN 04/26/18 Guaifenesin AC [Robitussin AC -] 5 ml PO TID PRN #60 liquid MDD 15 ml 04/29/18 Melatonin 5 mg PO HS PRN tab 04/29/18 Atorvastatin Ca [Lipitor] 10 mg PO DAILY 05/05/18 Duloxetine HCl [Cymbalta] 30 mg PO DAILY 05/05/18 Gabapentin [Neurontin -] 300 mg PO TID 05/05/18 Nicotine [Nicotine Patch 14mg/24 hr] 1 each TD DAILY #30 patch.td24 05/05/18 Amlodipine Besylate [Norvasc -] 2.5 mg PO DAILY #15 tablet 05/06/18 Budesonide/Formeterol Fumarate [SYMBICORT 160/4.5mcg -] 2 puff IH BID #1 inhaler 05/06/18 Varenicline Tartrate [Chantix -] 0.5 mg PO DAILY #30 tab 05/06/18 oxyCODONE HCL [Roxicodone -] 5 mg PO Q6H PRN #20 tablet MDD 4 05/06/18 predniSONE [Deltasone -] 40 mg PO DAILY #12 tablet 05/10/18 Albuterol 2.5/Ipratropium 0.5 [Duoneb -] 1 amp NEB RQID 14 Days #56 amp Azithromycin [Zithromax 250mg Tablets -] 250 mg PO DAILY 2 Days #2 tablet Duloxetine HCl [Cymbalta -] 30 mg PO DAILY 30 Days #30 capsule. 05/11/18 Nebulizer [Aeroneb Go Nebulizer] 1 each MC 1XPACU 1 Days #1 each 05/11/18 Family Disease History - Family Disease History Family Disease History: Other: Father (alive), Mother (alive), Sister (alive), Son (23 yo old - alive - healthy) Review of Systems - Review of Systems Constitutional: reports: Malaise Eyes: reports: No Symptoms HENT: reports: No Symptoms Neck: reports: No Symptoms Cardiovascular: reports: No Symptoms Respiratory: reports: No Symptoms Gastrointestinal: reports: No Symptoms Genitourinary: reports: No Symptoms Musculoskeletal: reports: Extremity Pain, Joint Pain Neurological: reports: No Symptoms Physical Exam Vital Signs: Vital Signs Temperature 98.9 F 05/13/18 13:10 Pulse Rate 104 H 05/13/18 08:25 Respiratory Rate 20 05/13/18 08:25 Blood Pressure 157/83 05/13/18 08:25 O2 Sat by Pulse Oximetry (%) 98 05/13/18 08:25 Constitutional: Yes: Calm Eyes: Yes: Conjunctiva Clear Cardiovascular: Yes: S1, S2 Respiratory: Yes: CTA Bilaterally Gastrointestinal: Yes: Soft Renal/: Yes: WNL Musculoskeletal: Yes: Back Pain, Joint Stiffness Edema: No Neurological: Yes: Oriented Labs: CBC, BMP 05/13/18 10:25 05/13/18 10:25 Imaging - Results Chest X-ray: Report Reviewed Cat Scan: Report Reviewed Assessment/Plan Impression 1. ESRD 2. s/p fall 3. chronic back pain 4. anemia 5. anxiety 6. hx of nsaid use 7. chf diastolic 8. possible complex renal cyst 9. HLD 10. nephrolithiasis 11. copd 12. left internal capsule infarct Plan - neurology evaluation for ct finding - will hold off HD until neuro evaluates pt - cont workup for fall - repeat labs in am
[2018-05-13] MEDS ORDERED: CALCIUM GLUCONATE 10% - 1,000 MG/10 ML VIAL IVPUSH ONE (14:56)
[2018-05-13] MEDS ORDERED: ALBUTEROL SO4 8 GM HFA INHALER IH PRN (15:38)
--- NOTE | 2018-05-13 15:41 | HP ---
CHIEF COMPLAINT: Mechanical Fall PCP: Dr. Marie HISTORY OF PRESENT ILLNESS: 63yo F with extensive past medical history including ESRD (T/T/S), COPD ( 3LNC home), MDD, and anxiety who presents today s/p mechanical falls. Pt reports falling twice today while trying to get out of bed. Normally she is wheelchair bound, but is able to transport (as reported by her). Today she fell and hit her face, head, neck and R shoulder. She reports after the first fall her son picked her up and placed her back to bed and then she promptly fell again. Pt denies any LOC or incontinence. Of note, pt's history is very scattered and will endorse most ROS. Pt does not increased R shoulder pain and a change of LLE proximal sensation changes which are different from her prior admission/discharge about 2 days ago. During her prior admission she was diagnosed with COPD exacerbation and was discharged on a prednisone pulse dose (40mg qDaily for 6 days) and Zithromax (2 more doses). She reports completing her regiment, however the pt's story is unreliable towards taking her prednisone. PAST MEDICAL HISTORY: COPD on home 02 3L CHF HLD HTN ESRD (T/T/S) Chronic back pain MDD Anxiety PAST SURGICAL HISTORY: B/L hip replacements Cataract surgery next month Social History: Smokin pack year smoking history Alcohol:denies Drugs: denies Allergies levofloxacin [From Levaquin] Allergy (Mild, Verified 05/13/18 08:25) Itching HOME MEDICATIONS: Home Medications Medication Instructions Recorded Ibuprofen [Motrin -] 400 mg PO QID PRN #28 tablet 02/23/18 Methocarbamol [Robaxin -] 500 mg PO BID PRN #14 tablet 02/23/18 Lidocaine 5% Patch [Lidoderm -] 1 patch TP DAILY #7 patch 03/02/18 Albuterol 2.5/Ipratropium 0.5 1 amp NEB Q6H PRN amp 03/14/18 [Duoneb -] Albuterol Sulfate Inhaler - 2 puff IH QID PRN 04/26/18 [Ventolin HFA Inhaler -] Guaifenesin AC [Robitussin AC -] 5 ml PO TID PRN #60 liquid MDD 15 04/29/18 ml Melatonin 5 mg PO HS PRN tab 04/29/18 Atorvastatin Ca [Lipitor] 10 mg PO DAILY 05/05/18 Duloxetine HCl [Cymbalta] 30 mg PO DAILY 05/05/18 Gabapentin [Neurontin -] 300 mg PO TID 05/05/18 Nicotine [Nicotine Patch 14mg/24 1 each TD DAILY #30 patch.td24 05/05/18 hr] Amlodipine Besylate [Norvasc -] 2.5 mg PO DAILY #15 tablet 05/06/18 Budesonide/Formeterol Fumarate 2 puff IH BID #1 inhaler 05/06/18 [SYMBICORT 160/4.5mcg -] Varenicline Tartrate [Chantix -] 0.5 mg PO DAILY #30 tab 05/06/18 oxyCODONE HCL [Roxicodone -] 5 mg PO Q6H PRN #20 tablet MDD 4 05/06/18 predniSONE [Deltasone -] 40 mg PO DAILY #12 tablet 05/10/18 Albuterol 2.5/Ipratropium 0.5 1 amp NEB RQID 14 Days #56 amp 05/11/18 [Duoneb -] Azithromycin [Zithromax 250mg 250 mg PO DAILY 2 Days #2 tablet 05/11/18 Tablets -] Duloxetine HCl [Cymbalta -] 30 mg PO DAILY 30 Days #30 05/11/18 capsule.dr Nebulizer [Aeroneb Go Nebulizer] 1 each 1XPACU 1 Days #1 each 05/11/18 REVIEW OF SYSTEMS As per HPI PHYSICAL EXAMINATION Vital Signs 05/13/18 05/13/18 08:25 13:10 Temperature 98.9 F Pulse Rate 104 H Respiratory 20 Rate Blood Pressure 157/83 O2 Sat by Pulse 98 Oximetry (%) GENERAL: Awake, alert, and fully oriented, sitting in bed with pacifier intact HEENT: NC, ecchymotic regions of R forehead and R lower face below zygomatic arch and above mandible, structurally intact although TTP, no deformity of nasal structures, EOMi, CHANDLER , MMM, NECK: Soft, ecchymotic area of R neck, structurally intact, no true TTP with C- spine spinous processes, trachea midline, no JVD LUNGS: Coarse breath sounds throughout due to upper airway transmission, minimal end-expiratory wheezing. No accessory muscle use. HEART: Tachycardic with regular rhythm, normal S1 and S2 without murmur ABDOMEN: Soft, NT/ND, normoactive bowel sounds, no guarding. MUSCULOSKELETAL: ? tenderness to lumbar spine with palpation EXTREMITIES: 1+ DP pulses symmetrically, no ecchymotic regions, No peripheral edema. NEUROLOGICAL: Limited exam due to pt compliance. director dance II-XII intact. Strength 5/ 5 in upper extremity regions. Strength 3/5 with hip flexion b/l, 5/5 with dorsal /plantar flexion. Sensation diminished in LLE anteromedial region. Normal speech PSYCHIATRIC: Manipulative, anxious, emotive SKIN: Warm, no rashes, lesions as above exam. Laboratory Results - last 24 hr 05/13/18 05/13/18 05/13/18 10:25 10:25 10:25 WBC 16.1 H RBC 2.91 L Hgb 8.6 L Hct 26.2 L MCV 90.0 MCH 29.6 MCHC 32.9 RDW 17.1 H Plt Count 296 MPV 8.0 Absolute Neuts (auto) 14.1 H Neutrophils % 87.8 H Neutrophils % (Manual) 89.1 H Band Neutrophils % 0.0 Lymphocytes % 4.4 L D Lymphocytes % (Manual) 3.0 L D Monocytes % 7.5 Monocytes % (Manual) 8 D Eosinophils % 0.0 D Eosinophils % (Manual) 0.0 Basophils % 0.3 Basophils % (Manual) 0.0 Myelocytes % (Man) 0 D Promyelocytes % (Man) 0 Blast Cells % (Manual) 0 Nucleated RBC % 0 Metamyelocytes 0 D Hypochromia 0 Platelet Estimate Normal Polychromasia 1+ Poikilocytosis 1+ Anisocytosis 2+ Microcytosis 2+ Macrocytosis 0 Tear Drop Cells 1+ Schistocytes 1+ PT with INR 12.80 INR 1.08 PTT (Actin FS) 27.3 Sodium 137 Potassium 3.6 Chloride 98 Carbon Dioxide 22 Anion Gap 18 H BUN 123 H* Creatinine 5.0 H Creat Clearance w eGFR 8.80 Random Glucose 95 Lactic Acid Calcium 7.1 L Magnesium 1.9 Total Bilirubin 0.6 AST 18 ALT 38 Alkaline Phosphatase 222 H Troponin I 0.13 H Total Protein 6.2 L Albumin 3.3 L 05/13/18 10:25 WBC RBC Hgb Hct MCV MCH MCHC RDW Plt Count MPV Absolute Neuts (auto) Neutrophils % Neutrophils % (Manual) Band Neutrophils % Lymphocytes % Lymphocytes % (Manual) Monocytes % Monocytes % (Manual) Eosinophils % Eosinophils % (Manual) Basophils % Basophils % (Manual) Myelocytes % (Man) Promyelocytes % (Man) Blast Cells % (Manual) Nucleated RBC % Metamyelocytes Hypochromia Platelet Estimate Polychromasia Poikilocytosis Anisocytosis Microcytosis Macrocytosis Tear Drop Cells Schistocytes PT with INR INR PTT (Actin FS) Sodium Potassium Chloride Carbon Dioxide Anion Gap BUN Creatinine Creat Clearance w eGFR Random Glucose Lactic Acid 0.7 Calcium Magnesium Total Bilirubin AST ALT Alkaline Phosphatase Troponin I Total Protein Albumin ASSESSMENT/PLAN: L internal capsule hypodensity Mechanical falls Uremia Elevated Troponins Hypocalcemia Leukocytosis ESRD (T/T/S) Anemia of chronic disease COPD MDD Anxiety HTN HLD --Ct head reviewed; no correlative neuro deficits --Neurology consulted --Monitor BP --MRI head (may have to give minimal benzo for agitation) --Missed dialysis today with uremia --Nephrology consulted and deferred dialysis until workup of new CT head finding --Monitor for signs of encephalopathy --Epogen per Nephrology with dialysis --Multiple CT spine and facial bones reviewed; no acute pathology --Fall precautions maintained --Leukocytosis likely related to recent steroid use; monitor for now and monitor fever trends --Completed Zithromax dose after discharge --Continue Prednisone pulse dose from last discharge (Prednisone 40mg PO for another 4 days) --Will sign out about possible taper dose to primary team --continue home 3LNC oxygen; maintain SpO2 >90% --Elevated troponins likely due to demand and decreased clearance of troponin I --Trend if decreasing can stop trending without active signs of chest pain --ECG noted: PAC's present with NSR; unchanged from prior ECG --Can continue home medication as per previous discharge 2 days prior --Includes Cymbalta 30mg as recommended per psychiatry -- FEN: Fluids: Minimized due to ESRD Electrolyte abnormalities: Hypocalcemia (corrected Ca: 7.66; replete) Nutrition: Renal diet PPX: DVT - Heparin SQ due to ESRD GI - Not indicated Dispo: Med-surg Case discussed with Dr. Anthony Colón, DO - IM PGY-2 Visit type - Emergency Visit Emergency Visit: Yes ED Registration Date: 05/13/18 Care time: The patient presented to the Emergency Department on the above date and was hospitalized for further evaluation of their emergent condition. - New Patient This patient is new to me today: Yes Date on this admission: 05/13/18 - Critical Care Critical Care patient: No
[2018-05-13] MEDS ORDERED: CALCIUM GLUCONATE 10% - 1,000 MG/10 ML VIAL ONE (16:07)
[2018-05-13] MEDS: ALBUTEROL SO4 2.5/IPRATROPIUM 0.5 INH SOL 3 ML VIAL.NEB. NEB SCH ×2 (16:07→21:40)
--- NOTE | 2018-05-13 16:44 | PN ---
Teaching Attending Note Name of Resident: Forrest Colón ATTENDING PHYSICIAN STATEMENT I saw and evaluated the patient. I reviewed the resident's note and discussed the case with the resident. I agree with the resident's findings and plan as documented. SUBJECTIVE: This is a 63 year old woman with a history of chronic hypoxic respiratory failure, COPD, chronic diastolic heart failure, HTN, hyperlipidemia , hypothyroidism, ESRD, GERD, depression, anxiety, iron deficiency anemia, peripheral neuropathy, ovarian cancer, chronic back pain who comes to the ED after falling from bed twice. The first time, her son picked her up off the floor and got her back into bed. The second time, she was able to get up on her own and get back into bed. She had landed on her right side and she is complaining of pain in the right side of her head, face, and neck, and in her right shoulder. She also reports burning with urination. She had been treated here 04/25-05/02 for MRSA abscess of right axilla, 05/03-05/06 or COPD exacerbation, and again 05/08-05/11 for COPD exacerbation. Head CT shows subtle 0.4 cm left internal capsule hypodensity, new since 11/2017. OBJECTIVE: Vital Signs Period Temp Pulse Resp BP Sys/Bills Pulse Ox Last 24 Hr 98.9 F 104 20 157/83 98 HEART: S1S2, tachycardic LUNGS: Few expiratory wheezes ABDOMEN: Soft, non-tender, non-distended, normal BS EXTREMITIES: No edema SKIN: Ecchymoses of right forehead, right face, right neck Laboratory Tests 05/13/18 05/13/18 05/13/18 10:25 10:25 10:25 WBC 16.1 H RBC 2.91 L Hgb 8.6 L Hct 26.2 L MCV 90.0 MCH 29.6 MCHC 32.9 RDW 17.1 H Plt Count 296 MPV 8.0 Absolute Neuts (auto) 14.1 H Neutrophils % 87.8 H Neutrophils % (Manual) 89.1 H Band Neutrophils % 0.0 Lymphocytes % 4.4 L D Lymphocytes % (Manual) 3.0 L D Monocytes % 7.5 Monocytes % (Manual) 8 D Eosinophils % 0.0 D Eosinophils % (Manual) 0.0 Basophils % 0.3 Basophils % (Manual) 0.0 Myelocytes % (Man) 0 D Promyelocytes % (Man) 0 Blast Cells % (Manual) 0 Nucleated RBC % 0 Metamyelocytes 0 D Hypochromia 0 Platelet Estimate Normal Polychromasia 1+ Poikilocytosis 1+ Anisocytosis 2+ Microcytosis 2+ Macrocytosis 0 Tear Drop Cells 1+ Schistocytes 1+ PT with INR 12.80 INR 1.08 PTT (Actin FS) 27.3 Sodium 137 Potassium 3.6 Chloride 98 Carbon Dioxide 22 Anion Gap 18 H BUN 123 H* Creatinine 5.0 H Creat Clearance w eGFR 8.80 Random Glucose 95 Lactic Acid Calcium 7.1 L Magnesium 1.9 Total Bilirubin 0.6 AST 18 ALT 38 Alkaline Phosphatase 222 H Troponin I 0.13 H Total Protein 6.2 L Albumin 3.3 L 05/13/18 10:25 WBC RBC Hgb Hct MCV MCH MCHC RDW Plt Count MPV Absolute Neuts (auto) Neutrophils % Neutrophils % (Manual) Band Neutrophils % Lymphocytes % Lymphocytes % (Manual) Monocytes % Monocytes % (Manual) Eosinophils % Eosinophils % (Manual) Basophils % Basophils % (Manual) Myelocytes % (Man) Promyelocytes % (Man) Blast Cells % (Manual) Nucleated RBC % Metamyelocytes Hypochromia Platelet Estimate Polychromasia Poikilocytosis Anisocytosis Microcytosis Macrocytosis Tear Drop Cells Schistocytes PT with INR INR PTT (Actin FS) Sodium Potassium Chloride Carbon Dioxide Anion Gap BUN Creatinine Creat Clearance w eGFR Random Glucose Lactic Acid 0.7 Calcium Magnesium Total Bilirubin AST ALT Alkaline Phosphatase Troponin I Total Protein Albumin Home Medications Medication Instructions Recorded Ibuprofen [Motrin -] 400 mg PO QID PRN #28 tablet 02/23/18 Methocarbamol [Robaxin -] 500 mg PO BID PRN #14 tablet 02/23/18 Lidocaine 5% Patch [Lidoderm -] 1 patch TP DAILY #7 patch 03/02/18 Albuterol 2.5/Ipratropium 0.5 1 amp NEB Q6H PRN amp 03/14/18 [Duoneb -] Albuterol Sulfate Inhaler - 2 puff IH QID PRN 04/26/18 [Ventolin HFA Inhaler -] Guaifenesin AC [Robitussin AC -] 5 ml PO TID PRN #60 liquid MDD 15 04/29/18 ml Melatonin 5 mg PO HS PRN tab 04/29/18 Atorvastatin Ca [Lipitor] 10 mg PO DAILY 05/05/18 Duloxetine HCl [Cymbalta] 30 mg PO DAILY 05/05/18 Gabapentin [Neurontin -] 300 mg PO TID 05/05/18 Nicotine [Nicotine Patch 14mg/24 1 each TD DAILY #30 patch.td24 05/05/18 hr] Amlodipine Besylate [Norvasc -] 2.5 mg PO DAILY #15 tablet 05/06/18 Budesonide/Formeterol Fumarate 2 puff IH BID #1 inhaler 05/06/18 [SYMBICORT 160/4.5mcg -] Varenicline Tartrate [Chantix -] 0.5 mg PO DAILY #30 tab 05/06/18 oxyCODONE HCL [Roxicodone -] 5 mg PO Q6H PRN #20 tablet MDD 4 05/06/18 predniSONE [Deltasone -] 40 mg PO DAILY #12 tablet 05/10/18 Albuterol 2.5/Ipratropium 0.5 1 amp NEB RQID 14 Days #56 amp 05/11/18 [Duoneb -] Azithromycin [Zithromax 250mg 250 mg PO DAILY 2 Days #2 tablet 05/11/18 Tablets -] Duloxetine HCl [Cymbalta -] 30 mg PO DAILY 30 Days #30 05/11/18 capsule. Nebulizer [Aeroneb Go Nebulizer] 1 each MC 1XPACU 1 Days #1 each 05/11/18 ASSESSMENT AND PLAN: This is a 63 year old woman with a history of chronic hypoxic respiratory failure, COPD, chronic diastolic heart failure, HTN, hyperlipidemia, hypothyroidism, ESRD, GERD, depression, anxiety, iron deficiency anemia, peripheral neuropathy, ovarian cancer, chronic back pain who comes to the ED after falling from bed twice. She was found to have a hypodensity in the left internal capsule on CT. 1. Possible left internal capsule CVA - Unlikely acute - MRI of brain 2. s/p fall with trauma to head, face, neck, and right shoulder 3. Chronic hypoxic respiratory failure secondary to COPD - Continue Symbicort - DuoNeb as needed - Complete Prednisone taper for recent COPD exacerbation - Oxygen to maintain saturation >90% 4. Chronic diastolic heart failure - No evidence of acute heart failure 5. HTN - Continue Norvasc 6. Hyperlipidemia - Continue Lipitor 7. Hypothyroidism - TSH was normal (1.65 on 05/09/18) on no medication 8. ESRD - HD as per nephrology 9. GERD 10. Depression with anxiety - Continue Cymbalta 11. Anemia secondary to iron deficiency and CKD 12. Peripheral neuropathy - Continue Neurontin 13. Chronic back pain - Continue Neurontin, Cymbalta, Lidoderm patch, oxycodone as needed 14. Nicotine dependence - Continue Chantix
[2018-05-13] MEDS: SODIUM CHLORIDE 1,000 ML IV SCH (16:46)
[2018-05-13 16:58] LABS: VENOUS PC02 33.7 mmHg (38-52); VENOUS PH 7.36 (7.32-7.42)
[2018-05-13 17:08] LABS: INR 1.08 (0.83-1.09); PROTHROMBIN TIME (PATIENT) 12.8 SEC (9.7-13.0)
[2018-05-13 17:19] LABS: CHOLESTEROL 269 mg/dL (50-200); HDL CHOLESTEROL 116 mg/dL (40-60); TRIGLYCERIDES 91 mg/dL (0-150)
[2018-05-13] MEDS ORDERED: LORazepam 1 MG TABLET PO ONE (17:40)
[2018-05-13] MEDS ORDERED: LORazepam 0.5 MG TABLET ONE ×2 (17:42→18:54)
[2018-05-13] MEDS ORDERED: LORazepam 1 MG TABLET PO STA (18:48)
[2018-05-13] MEDS ORDERED: BUDESONIDE/FORMETEROL FUMARATE 160/4.5 mcg INHALER IH SCH (22:00)
[2018-05-13] MEDS: HEPARIN NA (PORCINE) 5,000 UNITS/ML 1ML VIAL SQ SCH (22:23)
[2018-05-13] MEDS: GABAPENTIN 300 MG CAPSULE (FP) PO SCH (22:23)
[2018-05-13 23:33] VITALS: BMI 24.0
[2018-05-14] MEDS: HEPARIN NA (PORCINE) 5,000 UNITS/ML 1ML VIAL SQ SCH ×3 (06:02→21:39)
[2018-05-14] MEDS: GABAPENTIN 300 MG CAPSULE (FP) PO SCH ×4 (06:02→21:39)
[2018-05-14] MEDS: oxyCODONE HCL 5 MG TABLET PO PRN ×3 (06:24→22:55)
[2018-05-14 06:46] LABS: HEMATOCRIT 26.5 % (32.4-45.2); HEMOGLOBIN 8.5 GM/dL (10.7-15.3); MCH 29.5 pg (25.7-33.7); MCHC 32.2 g/dl (32.0-36.0); MEAN CELL VOLUME 91.5 fl (80-96); MEAN PLT VOLUME 8.8 fl (7.5-11.1); PLATELET COUNT 274 K/MM3 (134-434); RBC 2.89 M/mm3 (3.60-5.2); RDW 17.8 % (11.6-15.6); WHITE BLOOD COUNT 17.3 K/mm3 (4.0-10.0)
[2018-05-14] MEDS ORDERED: SODIUM CHLORIDE 250 ML IV PRN (07:15)
[2018-05-14 08:01] LABS: ANION GAP 20 MMOL/L (8-16); CHLORIDE 100 mmol/L (98-107); CO2 17 mmol/L (21-32); CREATININE 5.3 mg/dL (0.55-1.3); GLUCOSE,RANDOM 73 mg/dL (74-106); POTASSIUM 4.2 mmol/L (3.5-5.1); SODIUM 137 mmol/L (136-145)
[2018-05-14 08:02] LABS: ALBUMIN 3.3 g/dl (3.4-5.0); ALK PHOS 207 U/L (45-117); BILIRUBIN,TOTAL 0.5 mg/dL (0.2-1); SGOT/AST 28 U/L (15-37); SGPT/ALT 37 U/L (13-61); TOT PROT 6.2 g/dl (6.4-8.2)
[2018-05-14] MEDS: ALBUTEROL SO4 2.5/IPRATROPIUM 0.5 INH SOL 3 ML VIAL.NEB. NEB SCH ×4 (08:34→21:03)
[2018-05-14 09:00] LABS: BLOOD UREA NITROGEN 137 mg/dL (7-18); CALCIUM 6.9 mg/dL (8.5-10.1); PHOSPHOROUS > 9.0 mg/dL (2.5-4.9)
[2018-05-14 09:41] LABS: MAGNESIUM 2.2 mg/dL (1.8-2.4)
[2018-05-14 09:59] LABS: URINE APPEARANCE CLEAR; URINE BILIRUBIN NEGATIVE (<2.0 mg/dL); URINE COLOR STRAW; URINE GLUCOSE (UA) 1+ (NEGATIVE); URINE KETONE NEGATIVE (NEGATIVE); URINE LEUK ESTERASE TRACE (NEGATIVE); URINE NITRITE NEGATIVE (NEGATIVE); URINE PROTEIN 3+ (NEGATIVE); URINE UROBILINOGEN NEGATIVE mg/dL (0.2-1.0)
[2018-05-14] MEDS ORDERED: EPOETIN ALFA 10,000 UNIT/1 ML VIAL IVPUSH ONE (10:00)
--- NOTE | 2018-05-14 10:43 | PN ---
Progress Note, Physician History of Present Illness: Pt seen and examined at bedside. She is due for HD today. - Current Medication List Current Medications: Active Medications Albuterol Sulfate (Ventolin Hfa Inhaler -) 2 puff IH Q4H PRN PRN Reason: SHORT OF BREATH/WHEEZING Albuterol/Ipratropium (Duoneb -) 1 amp NEB RQID [facility] Last Admin: 05/14/18 08:34 Dose: 1 amp Amlodipine Besylate (Norvasc -) 2.5 mg PO DAILY [facility] Atorvastatin Calcium (Lipitor -) 10 mg PO HS [facility] Duloxetine HCl (Cymbalta -) 30 mg PO DAILY [facility] Gabapentin (Neurontin -) 300 mg PO TID [facility] Last Admin: 05/14/18 06:24 Dose: 300 mg Guaifenesin/Codeine Phosphate (Robitussin Ac -) 5 ml PO TID PRN PRN Reason: COUGH Heparin Sodium (Porcine) (Heparin -) 5,000 unit SQ TID [facility] Last Admin: 05/14/18 06:02 Dose: 5,000 unit Sodium Chloride (Normal Saline -) 1,000 mls @ 42 mls/hr IV ASDIR [facility] Last Admin: 05/13/18 16:46 Dose: 42 mls/hr Sodium Chloride (Normal Saline -) 250 mls @ 3,000 mls/hr IV PRN PRN PRN Reason: Hypotension during Dialysis Stop: 05/15/18 07:16 Melatonin (Melatonin) 5 mg PO HS PRN PRN Reason: INSOMNIA Methocarbamol (Robaxin -) 500 mg PO BID PRN PRN Reason: MUSCLE SPASMS Oxycodone HCl (Roxicodone -) 5 mg PO Q6H PRN PRN Reason: PAIN LEVEL 6-10 Last Admin: 05/14/18 06:24 Dose: 5 mg Prednisone (Deltasone -) 40 mg PO DAILY [facility] Stop: 05/18/18 09:59 Varenicline (Chantix -) 0.5 mg PO DAILY [facility] - Objective Vital Signs: Vital Signs Temperature 97.8 F 05/14/18 01:59 Pulse Rate 76 05/14/18 01:59 Respiratory Rate 18 05/14/18 01:59 Blood Pressure 157/76 05/14/18 01:59 O2 Sat by Pulse Oximetry (%) 96 05/13/18 20:30 Constitutional: Yes: Anxious Eyes: Yes: Conjunctiva Clear HENT: Yes: Atraumatic Neck: Yes: Supple Cardiovascular: Yes: S1, S2 Respiratory: Yes: Wheezes Gastrointestinal: Yes: Soft Genitourinary: Yes: WNL Musculoskeletal: Yes: Other (shoulder pain) Edema: No Neurological: Yes: Oriented Labs: CBC, BMP 05/14/18 05:30 05/14/18 05:30 INR, PTT INR 1.08 (0.83-1.09) 05/13/18 16:30 Assessment/Plan Current Medications Generic Name Dose Route Start Last Admin Trade Name Freq PRN Reason Stop Dose Admin Albuterol Sulfate 2 puff 05/13/18 15:38 Ventolin Hfa Inhaler - IH Q4H PRN SHORT OF BREATH/WHEEZING Albuterol/Ipratropium 1 amp 05/13/18 16:00 05/14/18 08:34 Duoneb - NEB 1 amp RQID JACKY Administration Amlodipine Besylate 2.5 mg 05/14/18 10:00 Norvasc - PO DAILY JACKY Atorvastatin Calcium 10 mg 05/14/18 22:00 Lipitor - PO HS JACKY Duloxetine HCl 30 mg 05/14/18 10:00 Cymbalta - PO DAILY JACKY Gabapentin 300 mg 05/13/18 22:00 05/14/18 06:24 Neurontin - PO 300 mg TID JACKY Administration Guaifenesin/Codeine Phosphate 5 ml 05/13/18 15:38 Robitussin Ac - PO TID PRN COUGH Heparin Sodium (Porcine) 5,000 unit 05/13/18 22:00 05/14/18 06:02 Heparin - SQ 5,000 unit TID JACKY Administration Sodium Chloride 1,000 mls @ 42 mls/hr 05/13/18 14:00 05/13/18 16:46 Normal Saline - IV 42 mls/hr ASDIR JACKY Administration Sodium Chloride 250 mls @ 3,000 mls/hr 05/14/18 07:15 Normal Saline - IV 05/15/18 07:16 PRN PRN Hypotension during Dialysis Melatonin 5 mg 05/13/18 15:38 Melatonin PO HS PRN INSOMNIA Methocarbamol 500 mg 05/13/18 15:38 Robaxin - PO BID PRN MUSCLE SPASMS Oxycodone HCl 5 mg 05/13/18 15:38 05/14/18 06:24 Roxicodone - PO 5 mg Q6H PRN Administration PAIN LEVEL 6-10 Prednisone 40 mg 05/14/18 10:00 Deltasone - PO 05/18/18 09:59 DAILY JACKY Varenicline 0.5 mg 05/14/18 10:00 Chantix - PO DAILY JACKY Impression 1. ESRD 2. s/p fall 3. chronic back pain 4. anemia 5. anxiety 6. hx of nsaid use 7. chf diastolic 8. possible complex renal cyst 9. HLD 10. nephrolithiasis 11. copd 12. left internal capsule infarct Plan - HD today - start phoslo - renal diet - compliance is a problem
[2018-05-14] MEDS ORDERED: CALCIUM 500MG/VIT-D 200 UNITS COMBO TABLET (FP) PO ONE (10:45)
[2018-05-14] MEDS ORDERED: PT OWN MED DRAWER 7, Y5N ONE ×2 (11:12→15:26)
[2018-05-14 11:27] LABS: EPI CELLS RARE /HPF (FEW)
[2018-05-14] MEDS: VARENICLINE TARTRATE 0.5 MG TAB PO SCH ×2 (12:00→22:55)
--- NOTE | 2018-05-14 13:19 | EKG ---
Test Reason : Blood Pressure : / mmHG Vent. Rate : 093 BPM Atrial Rate : 093 BPM P-R Int : 154 ms QRS Dur : 080 ms QT Int : 336 ms P-R-T Axes : 046 -03 053 degrees QTc Int : 417 ms SINUS RHYTHM WITH PREMATURE ATRIAL COMPLEXES POSSIBLE LEFT ATRIAL ENLARGEMENT LEFT VENTRICULAR HYPERTROPHY ABNORMAL ECG WHEN COMPARED WITH ECG OF 08-MAY-2018 11:33, PREMATURE ATRIAL COMPLEXES ARE NOW PRESENT Confirmed by JOÃO BURGESS, MAXX ([id number]) on 05/14/2018 1:18:51 PM Referred By: Confirmed By:MAXX MOYER MD
--- NOTE | 2018-05-14 13:56 | PN ---
Teaching Attending Note Name of Resident: Uvaldo Alba ATTENDING PHYSICIAN STATEMENT I saw and evaluated the patient. I reviewed the resident's note and discussed the case with the resident. I agree with the resident's findings and plan as documented. SUBJECTIVE: Patient seen while on HD. Lethargic. OBJECTIVE: Vital Signs Period Temp Pulse Resp BP Sys/Bills Pulse Ox Last 24 Hr 97.8 F-98.2 F 60-102 18-18 137-173/76-102 95-96 HEART: S1S2, RRR LUNGS: Clear ABDOMEN: Soft, non-distended, normal BS EXTREMITIES: No edema Laboratory Results - last 24 hr 05/13/18 05/13/18 05/13/18 10:00 16:30 16:30 WBC RBC Hgb Hct MCV MCH MCHC RDW Plt Count MPV PT with INR INR VBG pH 7.36 POC VBG pCO2 33.7 L POC VBG pO2 172.0 H* D Mixed VBG HCO3 18.4 L Sodium Potassium Chloride Carbon Dioxide Anion Gap BUN Creatinine Creat Clearance w eGFR Random Glucose Lactic Acid 1.1 Calcium Phosphorus Magnesium Total Bilirubin AST ALT Alkaline Phosphatase Troponin I 0.11 H Total Protein Albumin Triglycerides Cholesterol Total LDL Cholesterol HDL Cholesterol Urine Color Urine Appearance Urine pH Ur Specific [place] Urine Protein Urine Glucose (UA) Urine Ketones Urine Blood Urine Nitrite Urine Bilirubin Urine Urobilinogen Ur Leukocyte Esterase Urine WBC (Auto) Urine RBC (Auto) Ur Epithelial Cells Blood Type Antibody Screen 05/13/18 05/13/18 05/13/18 16:30 16:30 16:30 WBC RBC Hgb Hct MCV MCH MCHC RDW Plt Count MPV PT with INR 12.80 INR 1.08 VBG pH POC VBG pCO2 POC VBG pO2 Mixed VBG HCO3 Sodium Potassium Chloride Carbon Dioxide Anion Gap BUN Creatinine Creat Clearance w eGFR Random Glucose Lactic Acid Calcium Phosphorus Magnesium Total Bilirubin AST ALT Alkaline Phosphatase Troponin I Total Protein Albumin Triglycerides 91 Cholesterol 269 H Total LDL Cholesterol 100 HDL Cholesterol 116 H Urine Color Urine Appearance Urine pH Ur Specific [place] Urine Protein Urine Glucose (UA) Urine Ketones Urine Blood Urine Nitrite Urine Bilirubin Urine Urobilinogen Ur Leukocyte Esterase Urine WBC (Auto) Urine RBC (Auto) Ur Epithelial Cells Blood Type A POSITIVE Antibody Screen Negative 05/14/18 05/14/18 05/14/18 05:30 05:30 08:00 WBC 17.3 H RBC 2.89 L Hgb 8.5 L Hct 26.5 L MCV 91.5 MCH 29.5 MCHC 32.2 RDW 17.8 H Plt Count 274 MPV 8.8 PT with INR INR VBG pH POC VBG pCO2 POC VBG pO2 Mixed VBG HCO3 Sodium 137 Potassium 4.2 Chloride 100 Carbon Dioxide 17 L Anion Gap 20 H BUN 137 H* Creatinine 5.3 H Creat Clearance w eGFR 8.23 Random Glucose 73 L Lactic Acid Calcium 6.9 L* Phosphorus > 9.0 H* Magnesium 2.2 Total Bilirubin 0.5 AST 28 ALT 37 Alkaline Phosphatase 207 H Troponin I Total Protein 6.2 L Albumin 3.3 L Triglycerides Cholesterol Total LDL Cholesterol HDL Cholesterol Urine Color Straw Urine Appearance Clear Urine pH 7.0 Ur Specific [place] 1.011 Urine Protein 3+ H Urine Glucose (UA) 1+ H Urine Ketones Negative Urine Blood 1+ H Urine Nitrite Negative Urine Bilirubin Negative Urine Urobilinogen Negative Ur Leukocyte Esterase Trace Urine WBC (Auto) 10 Urine RBC (Auto) 5 Ur Epithelial Cells Rare Blood Type Antibody Screen Current Medications Generic Name Dose Route Start Last Admin Trade Name Freq PRN Reason Stop Dose Admin Albuterol Sulfate 2 puff 05/13/18 15:38 Ventolin Hfa Inhaler - IH Q4H PRN SHORT OF BREATH/WHEEZING Albuterol/Ipratropium 1 amp 05/13/18 16:00 05/14/18 11:54 Duoneb - NEB 1 amp RQID JACKY Administration Amlodipine Besylate 2.5 mg 05/14/18 10:00 Norvasc - PO DAILY [facility] Atorvastatin Calcium 10 mg 05/14/18 22:00 Lipitor - PO HS [facility] Calcium Acetate 1,334 mg 05/14/18 12:00 Phoslo - PO TIDCM JACKY Duloxetine HCl 30 mg 05/14/18 10:00 Cymbalta - PO DAILY JACKY Gabapentin 300 mg 05/13/18 22:00 05/14/18 06:24 Neurontin - PO 300 mg TID JACKY Administration Guaifenesin/Codeine Phosphate 5 ml 05/13/18 15:38 Robitussin Ac - PO TID PRN COUGH Heparin Sodium (Porcine) 5,000 unit 05/13/18 22:00 05/14/18 06:02 Heparin - SQ 5,000 unit TID [facility] Administration Sodium Chloride 1,000 mls @ 42 mls/hr 05/13/18 14:00 05/13/18 16:46 Normal Saline - IV 42 mls/hr ASDIR JACKY Administration Sodium Chloride 250 mls @ 3,000 mls/hr 05/14/18 07:15 Normal Saline - IV 05/15/18 07:16 PRN PRN Hypotension during Dialysis Melatonin 5 mg 05/13/18 15:38 Melatonin PO HS PRN INSOMNIA Methocarbamol 500 mg 05/13/18 15:38 Robaxin - PO BID PRN MUSCLE SPASMS Oxycodone HCl 5 mg 05/13/18 15:38 05/14/18 13:03 Roxicodone - PO 5 mg Q6H PRN Administration PAIN LEVEL 6-10 Prednisone 40 mg 05/14/18 10:00 Deltasone - PO 05/18/18 09:59 DAILY JACKY Varenicline 0.5 mg 05/14/18 10:00 Chantix - PO DAILY JACKY ASSESSMENT AND PLAN: This is a 63 year old woman with a history of chronic hypoxic respiratory failure, COPD, chronic diastolic heart failure, HTN, hyperlipidemia, hypothyroidism, ESRD, GERD, depression, anxiety, iron deficiency anemia, peripheral neuropathy, ovarian cancer, chronic back pain who presented to the ED after falling from bed twice. 1. s/p fall with trauma to head, face, neck, and right shoulder - MRI of brain shows moderate atrophy; moderate to marked chronic periventricular microvascular ischemic changes; likely chronic hemorrhagic lacunar infarcts in left basal ganglia and medial left occipital lobe 2. Chronic hypoxic respiratory failure secondary to COPD - Continue DuoNeb, albuterol as needed - Complete Prednisone taper for recent COPD exacerbation - Oxygen to maintain saturation >90% 3. Chronic diastolic heart failure - No evidence of acute heart failure 4. HTN - Continue Norvasc 5. Hyperlipidemia - Continue Lipitor 6. Hypothyroidism - TSH was normal (1.65 on 05/09/18) on no medication 7. ESRD - HD as per nephrology 8. Hyperphosphatemia - Continue PhosLo 9. GERD 10. Depression with anxiety - Continue Cymbalta 11. Anemia secondary to iron deficiency and CKD 12. Peripheral neuropathy - Continue Neurontin 13. Chronic back pain - Continue Neurontin, Cymbalta, Lidoderm patch, oxycodone as needed 14. Nicotine dependence - Continue Chantix
[2018-05-14] MEDS: amLODIPine BESYLATE 2.5 MG TABLET (FP) PO SCH (15:17)
[2018-05-14] MEDS: predniSONE 20 MG TABLET (UD) PO SCH (15:17)
[2018-05-14] MEDS: DULoxetine HCL 30 MG CAPSULE.DR (FP) PO SCH (15:17)
[2018-05-14] MEDS: CALCIUM ACETATE 667 MG CAPSULE (FP) PO SCH ×2 (15:17→17:46)
[2018-05-14] MEDS: SODIUM CHLORIDE 1,000 ML IV SCH (15:18)
--- NOTE | 2018-05-14 16:35 | CONSULT ---
Consult - text type - Consultation Consultation Note: NEUROLOGY CONSULT APPRECIATED: This 63 yo LH female is wheelchair bound and lives at home with her son. 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 PMHX includes COPD on 3L home O2, CHF, ESRD on HD (scheduled for today), MDD, HLD, HTN, nicotine dependence. Recently discharged from hospital 05/10 for COPD exacerbation on home ABx and steroid taper. Medications include: Methocarbamol, Duoneb, Atorvastatin, Cymbalta 30 mg qd, gabapentin 300 mg tid, amlodipine, symbicort, oxycodone 5 mg q6H prn, prednisone 40 mg, azithromycin, Atorvastatin She is here s/p fall out of bed in the middle of the night. She notes progressive decline in her walking since a fall 7 years ago requiring surgery to her right hip. She reports when walking, a sensation of "leaning over" and tendency to be unbalanced and reports she has fallen frequently at home. She also reports ongoing "pain all over her body" that prevents her from sleeping, and awakens her with "whole body jumping." She notes her dreams can be vivid or violent, and occasionally during the day can see "guadalupe" that aren't really there. She notes sensation of "food being stuck" in her throat during meals. Family history is significant for both her parents with "balance problems." She describes tremors "her whole life" which increase on prednisone MRI of brain (reviewed): Moderate diffuse atrophy, extensive periventricular microvascular changes. R Basal ganglia lacune. in Facial bone CT: negative for fracture Cervical, thoracic, lumbar CT (reviewed): s/p vertebroplasty L1, diffuse DJD Xrays of R shoulder, Pelvis CT: unremarkable, s/p BL hip replacement WBC 17.3K 10 urine WBC's KRIS: various ecchymotic areas noted to R neck, R forearm and scattered throughout body. AV fistula RUE. (-) carotid bruits neck is supple, normal mechanics of neck, paraspinals and upper extremities (-) [facility] Neuro Exam: MS/speech: Pressured circumferential, fluent. Crying. Ox April Oriented to name and [facility]. CN II-XII: Full wagner and EOM's. No facial . Gag normal Motor: No Rest tremor. + Course sustention tremor and Myoclonic jerks. No cogwheeling. Mild shoulder abduction (4=/50 and moderate hip flexion weakness (4/5 o R and 4-/5 on left). Distal strength is normal. Brisk reflexes except decreased L KJ. Toes downgoing Sensory: Normal to vibration. Coordination: No FTN dystaxia. Gait: Patient partially Daya's out of chair. Sl wide-based. Waddling and shuffling. Impression: 1. Proximal weakness suggesting early steroid myopathy as possible cause of recent worsening of gait 2. Chronic essential tremor increased by steroids and 3. Possible Toxic-Metabolic Encephalopathy (R/O UTI/Urosepsis or other occult infection). 4. Depression with early psychotic features. Suggest: ID consult, blood cultures and w/u of infection. Pulmonary consultation (Dr. León) for Prednisone taper Resume HD as per Dr. Coe Check TSH,, B12, RPR, Ammonia level PT with walker as tolerated, OOB to chair as tolerated Thank you very much, Josr Cowan MD
--- NOTE | 2018-05-14 17:00 | PN ---
Physical Exam: SUBJECTIVE: Patient seen and examined this AM. pt well known to me from previous admission. She states she is still having pain and is asking for her home dose of oxycodone which she verbalizes is 5 mg. States she fell at home and is having right shoulder and arm pain. OBJECTIVE: Vital Signs Period Temp Pulse Resp BP Sys/Bills Pulse Ox Last 24 Hr 97.8 F-98.2 F 60-112 18-18 137-173/76-102 94-96 GENERAL: A&O, moderate distress, anxious on exam HEAD: Normocephalic, atraumatic. EYES: no scleral icterus EARS, NOSE, THROAT: oropharynx clear without exudates. Moist mucous membranes. LUNGS: course breath sounds and wheezes throughout, upon return on rounds pt sleeping and breath sounds greatly improved from when awake HEART: Regular rate and rhythm, normal S1 and S2 without murmur ABDOMEN: Soft, nontender to palpation, normoactive bowel sounds MUSCULOSKELETAL: Tenderness to palpation somewhat diffusely according to patient. worst in right shoulder and upper arm. Decreased ROM right shoulder limited due to pain EXTREMITIES: warm, well-perfused. No peripheral edema. NEUROLOGICAL: Cranial nerves II-XII grossly intact. Normal speech. PSYCHIATRIC: Very anxious and tearful on exam, has a pacifier hanging around her neck Laboratory Results - last 24 hr 05/13/18 05/13/18 05/13/18 10:00 16:30 16:30 WBC RBC Hgb Hct MCV MCH MCHC RDW Plt Count MPV PT with INR INR VBG pH 7.36 POC VBG pCO2 33.7 L POC VBG pO2 172.0 H* D Mixed VBG HCO3 18.4 L Sodium Potassium Chloride Carbon Dioxide Anion Gap BUN Creatinine Creat Clearance w eGFR Random Glucose Lactic Acid 1.1 Calcium Phosphorus Magnesium Total Bilirubin AST ALT Alkaline Phosphatase Troponin I 0.11 H Total Protein Albumin Triglycerides Cholesterol Total LDL Cholesterol HDL Cholesterol Urine Color Urine Appearance Urine pH Ur Specific [place] Urine Protein Urine Glucose (UA) Urine Ketones Urine Blood Urine Nitrite Urine Bilirubin Urine Urobilinogen Ur Leukocyte Esterase Urine WBC (Auto) Urine RBC (Auto) Ur Epithelial Cells Blood Type Antibody Screen 05/13/18 05/13/18 05/13/18 16:30 16:30 16:30 WBC RBC Hgb Hct MCV MCH MCHC RDW Plt Count MPV PT with INR 12.80 INR 1.08 VBG pH POC VBG pCO2 POC VBG pO2 Mixed VBG HCO3 Sodium Potassium Chloride Carbon Dioxide Anion Gap BUN Creatinine Creat Clearance w eGFR Random Glucose Lactic Acid Calcium Phosphorus Magnesium Total Bilirubin AST ALT Alkaline Phosphatase Troponin I Total Protein Albumin Triglycerides 91 Cholesterol 269 H Total LDL Cholesterol 100 HDL Cholesterol 116 H Urine Color Urine Appearance Urine pH Ur Specific [place] Urine Protein Urine Glucose (UA) Urine Ketones Urine Blood Urine Nitrite Urine Bilirubin Urine Urobilinogen Ur Leukocyte Esterase Urine WBC (Auto) Urine RBC (Auto) Ur Epithelial Cells Blood Type A POSITIVE Antibody Screen Negative 05/14/18 05/14/18 05/14/18 05:30 05:30 08:00 WBC 17.3 H RBC 2.89 L Hgb 8.5 L Hct 26.5 L MCV 91.5 MCH 29.5 MCHC 32.2 RDW 17.8 H Plt Count 274 MPV 8.8 PT with INR INR VBG pH POC VBG pCO2 POC VBG pO2 Mixed VBG HCO3 Sodium 137 Potassium 4.2 Chloride 100 Carbon Dioxide 17 L Anion Gap 20 H BUN 137 H* Creatinine 5.3 H Creat Clearance w eGFR 8.23 Random Glucose 73 L Lactic Acid Calcium 6.9 L* Phosphorus > 9.0 H* Magnesium 2.2 Total Bilirubin 0.5 AST 28 ALT 37 Alkaline Phosphatase 207 H Troponin I Total Protein 6.2 L Albumin 3.3 L Triglycerides Cholesterol Total LDL Cholesterol HDL Cholesterol Urine Color Straw Urine Appearance Clear Urine pH 7.0 Ur Specific [place] 1.011 Urine Protein 3+ H Urine Glucose (UA) 1+ H Urine Ketones Negative Urine Blood 1+ H Urine Nitrite Negative Urine Bilirubin Negative Urine Urobilinogen Negative Ur Leukocyte Esterase Trace Urine WBC (Auto) 10 Urine RBC (Auto) 5 Ur Epithelial Cells Rare Blood Type Antibody Screen Active Medications Generic Name Dose Route Start Last Admin Trade Name Freq PRN Reason Stop Dose Admin Albuterol Sulfate 2 puff 05/13/18 15:38 Ventolin Hfa Inhaler - IH Q4H PRN SHORT OF BREATH/WHEEZING Albuterol/Ipratropium 1 amp 05/13/18 16:00 05/14/18 15:38 Duoneb - NEB 1 amp RQID JACKY Administration Amlodipine Besylate 2.5 mg 05/14/18 10:00 05/14/18 15:17 Norvasc - PO 2.5 mg DAILY JACKY Administration Atorvastatin Calcium 10 mg 05/14/18 22:00 Lipitor - PO HS JACKY Calcium Acetate 1,334 mg 05/14/18 12:00 05/14/18 15:17 Phoslo - PO 1,334 mg TIDCM JACKY Administration Duloxetine HCl 30 mg 05/14/18 10:00 05/14/18 15:17 Cymbalta - PO 30 mg DAILY JACKY Administration Gabapentin 300 mg 05/13/18 22:00 05/14/18 15:18 Neurontin - PO 300 mg TID JACKY Administration Guaifenesin/Codeine Phosphate 5 ml 05/13/18 15:38 Robitussin Ac - PO TID PRN COUGH Heparin Sodium (Porcine) 5,000 unit 05/13/18 22:00 05/14/18 15:18 Heparin - SQ Not Given TID JACKY Sodium Chloride 1,000 mls @ 42 mls/hr 05/13/18 14:00 05/14/18 15:18 Normal Saline - IV 42 mls/hr ASDIR JACKY Administration Sodium Chloride 250 mls @ 3,000 mls/hr 05/14/18 07:15 Normal Saline - IV 05/15/18 07:16 PRN PRN Hypotension during Dialysis Melatonin 5 mg 05/13/18 15:38 Melatonin PO HS PRN INSOMNIA Methocarbamol 500 mg 05/13/18 15:38 Robaxin - PO BID PRN MUSCLE SPASMS Oxycodone HCl 5 mg 05/13/18 15:38 05/14/18 13:03 Roxicodone - PO 5 mg Q6H PRN Administration PAIN LEVEL 6-10 Prednisone 40 mg 05/14/18 10:00 05/14/18 15:17 Deltasone - PO 05/18/18 09:59 40 mg DAILY JACKY Administration Varenicline 0.5 mg 05/14/18 10:00 Chantix - PO DAILY JACKY ASSESSMENT/PLAN: 63 year old female with history of chronic hypoxic respiratory failure sec to COPD, chronic diastolic heart failure, HTN, hyperlipidemia, hypothyroidism, ESRD , GERD, depression, anxiety, peripheral neuropathy, ovarian cancer, chronic back pain admitted with complaint of SOB and cough, and missed dialysis. Mechanical falls, r/o CVA vs TIA -CT head noted with Left internal capsule hypodense region concerning for infarct -Neurology consult appreciated -MRI without any concerns for acute ischemic changes -CTA neck without any hemodynamically significant pathology -Could possibly d/c in AM pending neurology recommendations and approval Acute on Chronic Respiratory Failure likely secondary to acute COPD exacerbation - resolved from previous admission -On 3L home O2 -Symbicort -DuoNebs RQID -Continue prednisone from previous admission for 2 more days Depression/Anxiety -Cymbalta 30 mg PO Daily -Pt could benefit greatly from outpatient psych follow up Chronic Diastolic Heart Failure -Stable, not in acute signs of volume overload HTN -Norvasc 2.5 mg PO Daily HLD -Lipitor 10 mg PO HS ESRD -HD on ,,S -Nephrology Consult appreciated -HD as per nephrology -Monitor electrolytes GERD -Protonix 40 mg PO Daily Anemia -Likely secondary to ESRD -H/H stable DVT Prophylaxis -Heparin 5000 units SQ TID FEN -Fluids: None -Electrolytes: Monitor and replete cuatiously with ESRD, phoslo as per nephrology, BMP in AM -Nutrition: Renal Diet Disposition Telemetry Visit type - Emergency Visit Emergency Visit: Yes ED Registration Date: 05/13/18 Care time: The patient presented to the Emergency Department on the above date and was hospitalized for further evaluation of their emergent condition. - New Patient This patient is new to me today: Yes Date on this admission: 05/14/18 - Critical Care Critical Care patient: No
[2018-05-14] MEDS: MELATONIN 5 MG TABLETS PO PRN (21:39)
[2018-05-14] MEDS: guaiFENesin/CODEINE 5 ML UNIT-DOSE CUPS PO PRN (21:39)
[2018-05-14] MEDS: ATORVASTATIN CA 10 MG TABLET (FP) PO SCH (21:39)
[2018-05-15] MEDS: HEPARIN NA (PORCINE) 5,000 UNITS/ML 1ML VIAL SQ SCH ×3 (05:50→22:31)
[2018-05-15] MEDS: oxyCODONE HCL 5 MG TABLET PO PRN ×3 (05:51→18:44)
[2018-05-15] MEDS: GABAPENTIN 300 MG CAPSULE (FP) PO SCH ×3 (05:51→22:31)
[2018-05-15 07:54] LABS: HEMATOCRIT 25.9 % (32.4-45.2); HEMOGLOBIN 8.6 GM/dL (10.7-15.3); MCH 29.8 pg (25.7-33.7); MCHC 33.1 g/dl (32.0-36.0); MEAN CELL VOLUME 90.1 fl (80-96); MEAN PLT VOLUME 8.2 fl (7.5-11.1); PLATELET COUNT 240 K/MM3 (134-434); RBC 2.87 M/mm3 (3.60-5.2); RDW 17.2 % (11.6-15.6); RETICULOCYTES 3.34 % (0.5-1.5); WHITE BLOOD COUNT 11.6 K/mm3 (4.0-10.0)
[2018-05-15] MEDS: ALBUTEROL SO4 2.5/IPRATROPIUM 0.5 INH SOL 3 ML VIAL.NEB. NEB SCH ×4 (08:29→20:49)
[2018-05-15 08:41] LABS: ANION GAP 12 MMOL/L (8-16); BLOOD UREA NITROGEN 57 mg/dL (7-18); CALCIUM 8.2 mg/dL (8.5-10.1); CHLORIDE 100 mmol/L (98-107); CO2 28 mmol/L (21-32); CREATININE 3.1 mg/dL (0.55-1.3); GLUCOSE,RANDOM 128 mg/dL (74-106); PHOSPHOROUS 5.9 mg/dL (2.5-4.9); POTASSIUM 3.3 mmol/L (3.5-5.1); SODIUM 140 mmol/L (136-145)
[2018-05-15] MEDS ORDERED: PT OWN MED DRAWER 7, Y5N ONE (09:18)
[2018-05-15] MEDS: amLODIPine BESYLATE 2.5 MG TABLET (FP) PO SCH (09:44)
[2018-05-15] MEDS: DULoxetine HCL 30 MG CAPSULE.DR (FP) PO SCH (09:44)
[2018-05-15] MEDS: CALCIUM ACETATE 667 MG CAPSULE (FP) PO SCH ×3 (09:44→18:44)
[2018-05-15] MEDS: predniSONE 20 MG TABLET (UD) PO SCH (09:44)
[2018-05-15] MEDS: VARENICLINE TARTRATE 0.5 MG TAB PO SCH (09:45)
[2018-05-15 11:35] LABS: ERYTHROCYTE SEDIMENTATION RATE 28 mm/hr (0-30)
--- NOTE | 2018-05-15 13:36 | PN ---
Teaching Attending Note Name of Resident: Uvaldo Alba ATTENDING PHYSICIAN STATEMENT I saw and evaluated the patient. I reviewed the resident's note and discussed the case with the resident. I agree with the resident's findings and plan as documented. SUBJECTIVE: Patient very sleepy. She complains of pain, SOB, fatigue, painful urination, weakness. OBJECTIVE: Vital Signs Period Temp Pulse Resp BP Sys/Bills Pulse Ox Last 24 Hr 97.8 F-98.4 F 101-115 18-22 140-161/67-90 HEART: S1S2, RRR LUNGS: Clear ABDOMEN: Soft, non-distended, non-tender, normal BS EXTREMITIES: No edema Laboratory Results - last 24 hr 05/15/18 05/15/18 05/15/18 06:56 06:56 06:56 WBC 11.6 H RBC 2.87 L Hgb 8.6 L Hct 25.9 L MCV 90.1 MCH 29.8 MCHC 33.1 RDW 17.2 H Plt Count 240 MPV 8.2 ESR 28 Retic Count 3.34 H Sodium 140 Potassium 3.3 L Chloride 100 Carbon Dioxide 28 Anion Gap 12 BUN 57 H Creatinine 3.1 H Creat Clearance w eGFR 15.28 Random Glucose 128 H Lactic Acid Calcium 8.2 L Phosphorus 5.9 H Magnesium 2.0 Ferritin 27.0 Ammonia C-Reactive Protein 2.9 H Vitamin B12 759 TSH 0.22 L 05/15/18 05/15/18 06:56 09:45 WBC RBC Hgb Hct MCV MCH MCHC RDW Plt Count MPV ESR Retic Count Sodium Potassium Chloride Carbon Dioxide Anion Gap BUN Creatinine Creat Clearance w eGFR Random Glucose Lactic Acid 1.4 Calcium Phosphorus Magnesium Ferritin Ammonia 17.20 C-Reactive Protein Vitamin B12 TSH Current Medications Generic Name Dose Route Start Last Admin Trade Name Freq PRN Reason Stop Dose Admin Albuterol Sulfate 2 puff 05/13/18 15:38 Ventolin Hfa Inhaler - IH Q4H PRN SHORT OF BREATH/WHEEZING Albuterol/Ipratropium 1 amp 05/13/18 16:00 05/15/18 11:46 Duoneb - NEB 1 amp RQID JACKY Administration Amlodipine Besylate 2.5 mg 05/14/18 10:00 05/15/18 09:44 Norvasc - PO 2.5 mg DAILY JACKY Administration Atorvastatin Calcium 10 mg 05/14/18 22:00 05/14/18 21:39 Lipitor - PO 10 mg HS JACKY Administration Calcium Acetate 1,334 mg 05/14/18 12:00 05/15/18 12:23 Phoslo - PO 1,334 mg TIDCM JACKY Administration Duloxetine HCl 30 mg 05/14/18 10:00 05/15/18 09:44 Cymbalta - PO 30 mg DAILY JACKY Administration Gabapentin 300 mg 05/13/18 22:00 05/15/18 05:51 Neurontin - PO 300 mg TID JACKY Administration Guaifenesin/Codeine Phosphate 5 ml 05/13/18 15:38 05/14/18 21:39 Robitussin Ac - PO 5 ml TID PRN Administration COUGH Heparin Sodium (Porcine) 5,000 unit 05/13/18 22:00 05/15/18 05:50 Heparin - SQ 5,000 unit TID JACKY Administration Sodium Chloride 1,000 mls @ 42 mls/hr 05/13/18 14:00 05/14/18 15:18 Normal Saline - IV 42 mls/hr ASDIR JACKY Administration Melatonin 5 mg 05/13/18 15:38 05/14/18 21:39 Melatonin PO 5 mg HS PRN Administration INSOMNIA Methocarbamol 500 mg 05/13/18 15:38 Robaxin - PO BID PRN MUSCLE SPASMS Oxycodone HCl 5 mg 05/13/18 15:38 05/15/18 12:23 Roxicodone - PO 5 mg Q6H PRN Administration PAIN LEVEL 6-10 Varenicline 0.5 mg 05/14/18 10:00 05/15/18 09:45 Chantix - PO 0.5 mg DAILY JACKY Administration ASSESSMENT AND PLAN: This is a 63 year old woman with a history of chronic hypoxic respiratory failure, COPD, chronic diastolic heart failure, HTN, hyperlipidemia, hypothyroidism, ESRD, GERD, depression, anxiety, iron deficiency anemia, peripheral neuropathy, ovarian cancer, chronic back pain who presented to the ED after falling from bed twice. 1. s/p fall with trauma to head, face, neck, and right shoulder - MRI of brain shows moderate atrophy; moderate to marked chronic periventricular microvascular ischemic changes; likely chronic hemorrhagic lacunar infarcts in left basal ganglia and medial left occipital lobe 2. Possible steroid myopathy - Prednisone has been discontinued - Continue PT 3. Possible acute toxic metabolic encephalopathy secondary to sepsis and UTI - Urine culture growing group D Strep or Enterococcus and Staph - Patient was recently treated with vancomycin for MRSA abscess of right axilla - TSH was normal on 05/09, but low now; B12 and ammonia are normal - Check RPR - ID consult 4. Chronic hypoxic respiratory failure secondary to COPD - Continue DuoNeb, albuterol as needed - Completed course of Prednisone - Continue oxygen to maintain saturation >90% 5. Chronic diastolic heart failure - No evidence of acute heart failure 6. HTN - Continue Norvasc 7. Hyperlipidemia - Continue Lipitor 8. Hypothyroidism - TSH was normal (1.65 on 05/09/18) and low (0.22 today) - on no medication 9. ESRD - HD as per nephrology 10. Hyperphosphatemia - Continue PhosLo 11. GERD 12. Depression with anxiety and psychosis - Continue Cymbalta 13. Anemia secondary to iron deficiency and CKD 14. Peripheral neuropathy - Continue Neurontin 15. Chronic back pain - Continue Neurontin, Cymbalta, Lidoderm patch, oxycodone as needed 16. Nicotine dependence - Continue Chantix
[2018-05-15] MEDS ORDERED: AMPICILLIN NA/SULBACTAM NA 1.5 GM in SODIUM CHLORIDE 100 ML IVPB ONE (14:39)
--- NOTE | 2018-05-15 14:44 | PN ---
Physical Exam: SUBJECTIVE: Patient seen and examined this AM. States she has been having some stopping and starting of her urine stream and endorses some burning during those episodes. OBJECTIVE: Vital Signs Period Temp Pulse Resp BP Sys/Bills Pulse Ox Last 24 Hr 97.8 F-98.4 F 101-115 18-22 140-161/67-90 GENERAL: A&O, moderate distress, anxious on exam HEAD: Normocephalic, atraumatic. EYES: no scleral icterus EARS, NOSE, THROAT: oropharynx clear without exudates. Moist mucous membranes. LUNGS: course breath sounds and wheezes throughout, examined during sleeping and breath sounds greatly improved from when awake HEART: Regular rate and rhythm, normal S1 and S2 without murmur ABDOMEN: Soft, nontender to palpation, normoactive bowel sounds MUSCULOSKELETAL: Tenderness to palpation somewhat diffusely according to patient. worst in right shoulder and upper arm. Decreased ROM right shoulder limited due to pain EXTREMITIES: warm, well-perfused. No peripheral edema. NEUROLOGICAL: Cranial nerves II-XII grossly intact. Normal speech. PSYCHIATRIC: Very anxious and tearful on exam, has a pacifier hanging around her neck Laboratory Results - last 24 hr 05/15/18 05/15/18 05/15/18 06:56 06:56 06:56 WBC 11.6 H RBC 2.87 L Hgb 8.6 L Hct 25.9 L MCV 90.1 MCH 29.8 MCHC 33.1 RDW 17.2 H Plt Count 240 MPV 8.2 ESR 28 Retic Count 3.34 H Sodium 140 Potassium 3.3 L Chloride 100 Carbon Dioxide 28 Anion Gap 12 BUN 57 H Creatinine 3.1 H Creat Clearance w eGFR 15.28 Random Glucose 128 H Lactic Acid Calcium 8.2 L Phosphorus 5.9 H Magnesium 2.0 Ferritin 27.0 Ammonia C-Reactive Protein 2.9 H Vitamin B12 759 TSH 0.22 L 05/15/18 05/15/18 06:56 09:45 WBC RBC Hgb Hct MCV MCH MCHC RDW Plt Count MPV ESR Retic Count Sodium Potassium Chloride Carbon Dioxide Anion Gap BUN Creatinine Creat Clearance w eGFR Random Glucose Lactic Acid 1.4 Calcium Phosphorus Magnesium Ferritin Ammonia 17.20 C-Reactive Protein Vitamin B12 TSH Active Medications Generic Name Dose Route Start Last Admin Trade Name Freq PRN Reason Stop Dose Admin Albuterol Sulfate 2 puff 05/13/18 15:38 Ventolin Hfa Inhaler - IH Q4H PRN SHORT OF BREATH/WHEEZING Albuterol/Ipratropium 1 amp 05/13/18 16:00 05/15/18 11:46 Duoneb - NEB 1 amp RQID JACKY Administration Amlodipine Besylate 2.5 mg 05/14/18 10:00 05/15/18 09:44 Norvasc - PO 2.5 mg DAILY JACKY Administration Atorvastatin Calcium 10 mg 05/14/18 22:00 05/14/18 21:39 Lipitor - PO 10 mg HS JACKY Administration Calcium Acetate 1,334 mg 05/14/18 12:00 05/15/18 12:23 Phoslo - PO 1,334 mg TIDCM JACKY Administration Duloxetine HCl 30 mg 05/14/18 10:00 05/15/18 09:44 Cymbalta - PO 30 mg DAILY JACKY Administration Gabapentin 300 mg 05/13/18 22:00 05/15/18 05:51 Neurontin - PO 300 mg TID JACKY Administration Guaifenesin/Codeine Phosphate 5 ml 05/13/18 15:38 05/14/18 21:39 Robitussin Ac - PO 5 ml TID PRN Administration COUGH Heparin Sodium (Porcine) 5,000 unit 05/13/18 22:00 05/15/18 05:50 Heparin - SQ 5,000 unit TID JACKY Administration Sodium Chloride 1,000 mls @ 42 mls/hr 05/13/18 14:00 05/14/18 15:18 Normal Saline - IV 42 mls/hr ASDIR JACKY Administration Ampicillin Sodium/Sulbactam 100 mls @ 200 mls/hr 05/15/18 14:39 Sodium 1.5 gm/ Sodium Chloride IVPB 05/15/18 15:08 ONCE ONE Melatonin 5 mg 05/13/18 15:38 05/14/18 21:39 Melatonin PO 5 mg HS PRN Administration INSOMNIA Methocarbamol 500 mg 05/13/18 15:38 Robaxin - PO BID PRN MUSCLE SPASMS Oxycodone HCl 5 mg 05/13/18 15:38 05/15/18 12:23 Roxicodone - PO 5 mg Q6H PRN Administration PAIN LEVEL 6-10 Varenicline 0.5 mg 05/14/18 10:00 05/15/18 09:45 Chantix - PO 0.5 mg DAILY JACKY Administration ASSESSMENT/PLAN: 63 year old female with history of chronic hypoxic respiratory failure sec to COPD, chronic diastolic heart failure, HTN, hyperlipidemia, hypothyroidism, ESRD , GERD, depression, anxiety, peripheral neuropathy, ovarian cancer, chronic back pain admitted with complaint of SOB and cough, and missed dialysis. UTI -Could have contributed to falls at home -Urine cultures positive with Group D/Enterococcus and Staph species, pt symptomatic -Pending sensitivities -ID consulted -Unasyn one time dose now Mechanical falls, r/o CVA vs TIA -CT head noted with Left internal capsule hypodense region concerning for infarct -Neurology consult appreciated -MRI without any concerns for acute ischemic changes -CTA neck without any hemodynamically significant pathology -Physical Therapy eval -Pt could possibly require short term inpatient rehab facility Acute on Chronic Respiratory Failure likely secondary to acute COPD exacerbation - resolved from previous admission -On 3L home O2 -Symbicort -DuoNebs RQID -Continue prednisone from previous admission for 2 more days Depression/Anxiety -Cymbalta 30 mg PO Daily -Pt could benefit greatly from outpatient psych follow up Chronic Diastolic Heart Failure -Stable, not in acute signs of volume overload HTN -Norvasc 2.5 mg PO Daily HLD -Lipitor 10 mg PO HS ESRD -HD on ,,S -Nephrology Consult appreciated -HD as per nephrology -Monitor electrolytes GERD -Protonix 40 mg PO Daily Anemia -Likely secondary to ESRD -H/H stable DVT Prophylaxis -Heparin 5000 units SQ TID FEN -Fluids: None -Electrolytes: Monitor and replete cuatiously with ESRD, phoslo as per nephrology, BMP in AM -Nutrition: Renal Diet Disposition Telemetry Visit type - Emergency Visit Emergency Visit: Yes ED Registration Date: 05/15/18 Care time: The patient presented to the Emergency Department on the above date and was hospitalized for further evaluation of their emergent condition. - New Patient This patient is new to me today: No - Critical Care Critical Care patient: No
[2018-05-15] MEDS ORDERED: AMPICILLIN NA/SULBACTAM NA 1.5 GM VIAL ONE (16:19)
[2018-05-15] MEDS ORDERED: SODIUM CHLORIDE 100 ML IVPB ONE (16:20)
[2018-05-15] MEDS: SODIUM CHLORIDE 1,000 ML IV SCH (16:42)
--- NOTE | 2018-05-15 18:45 | PN ---
Progress Note, Physician History of Present Illness: Pt seen and examined at bedside. She complains of generalized aches and pains. - Current Medication List Current Medications: Active Medications Albuterol Sulfate (Ventolin Hfa Inhaler -) 2 puff IH Q4H PRN PRN Reason: SHORT OF BREATH/WHEEZING Albuterol/Ipratropium (Duoneb -) [address] [facility] Last Admin: 05/15/18 16:21 Dose: 1 amp Amlodipine Besylate (Norvasc -) 2.[address] [facility] Last Admin: 05/15/18 09:44 Dose: 2.5 mg Atorvastatin Calcium (Lipitor -) [address] [facility] Last Admin: 05/14/18 21:39 Dose: 10 mg Calcium Acetate (Phoslo -) 1,[address] [facility] Last Admin: 05/15/18 12:23 Dose: 1,334 mg Duloxetine HCl (Cymbalta -) [address] [facility] Last Admin: 05/15/18 09:44 Dose: 30 mg Gabapentin (Neurontin -) [address] [facility] Last Admin: 05/15/18 15:00 Dose: 300 mg Guaifenesin/Codeine Phosphate (Robitussin Ac -) 5 ml PO TID PRN PRN Reason: COUGH Last Admin: 05/14/18 21:39 Dose: 5 ml Heparin Sodium (Porcine) (Heparin -) 5,[address] [facility] Last Admin: 05/15/18 16:42 Dose: 5,000 unit Sodium Chloride (Normal Saline -) 1,000 mls @ 42 mls/hr IV ASDIR [facility] Last Admin: 05/15/18 16:42 Dose: 42 mls/hr Melatonin (Melatonin) 5 mg PO HS PRN PRN Reason: INSOMNIA Last Admin: 05/14/18 21:39 Dose: 5 mg Methocarbamol (Robaxin -) 500 mg PO BID PRN PRN Reason: MUSCLE SPASMS Oxycodone HCl (Roxicodone -) 5 mg PO Q6H PRN PRN Reason: PAIN LEVEL 6-10 Last Admin: 05/15/18 12:23 Dose: 5 mg Varenicline (Chantix -) 0.[address] [facility] Last Admin: 05/15/18 09:45 Dose: 0.5 mg - Objective Vital Signs: Vital Signs Temperature 99.0 F 05/15/18 15:07 Pulse Rate 110 H 05/15/18 15:07 Respiratory Rate 20 05/15/18 15:07 Blood Pressure 152/83 05/15/18 15:07 O2 Sat by Pulse Oximetry (%) 96 05/15/18 09:00 Constitutional: Yes: Anxious Eyes: Yes: Conjunctiva Clear Cardiovascular: Yes: S1, S2 Respiratory: Yes: Wheezes Gastrointestinal: Yes: Normal Bowel Sounds, Soft Genitourinary: Yes: WNL Musculoskeletal: Yes: WNL Edema: No Neurological: Yes: Oriented Psychiatric: Yes: Oriented Labs: CBC, BMP 05/15/18 06:56 05/15/18 06:56 INR, PTT INR 1.08 (0.83-1.09) 05/13/18 16:30 Assessment/Plan Current Medications Generic Name Dose Route Start Last Admin Trade Name Freq PRN Reason Stop Dose Admin Albuterol Sulfate 2 puff 05/13/18 15:38 Ventolin Hfa Inhaler - IH Q4H PRN SHORT OF BREATH/WHEEZING Albuterol/Ipratropium 1 amp 05/13/18 16:00 05/15/18 16:21 Duoneb - NEB 1 amp RQID JACKY Administration Amlodipine Besylate 2.5 mg 05/14/18 10:00 05/15/18 09:44 Norvasc - PO 2.5 mg DAILY JACKY Administration Atorvastatin Calcium 10 mg 05/14/18 22:00 05/14/18 21:39 Lipitor - PO 10 mg HS JACKY Administration Calcium Acetate 1,334 mg 05/14/18 12:00 05/15/18 12:23 Phoslo - PO 1,334 mg TIDCM JACKY Administration Duloxetine HCl 30 mg 05/14/18 10:00 05/15/18 09:44 Cymbalta - PO 30 mg DAILY JACKY Administration Gabapentin 300 mg 05/13/18 22:00 05/15/18 15:00 Neurontin - PO 300 mg TID JACKY Administration Guaifenesin/Codeine Phosphate 5 ml 05/13/18 15:38 05/14/18 21:39 Robitussin Ac - PO 5 ml TID PRN Administration COUGH Heparin Sodium (Porcine) 5,000 unit 05/13/18 22:00 05/15/18 16:42 Heparin - SQ 5,000 unit TID JACKY Administration Sodium Chloride 1,000 mls @ 42 mls/hr 05/13/18 14:00 05/15/18 16:42 Normal Saline - IV 42 mls/hr ASDIR JACKY Administration Melatonin 5 mg 05/13/18 15:38 05/14/18 21:39 Melatonin PO 5 mg HS PRN Administration INSOMNIA Methocarbamol 500 mg 05/13/18 15:38 Robaxin - PO BID PRN MUSCLE SPASMS Oxycodone HCl 5 mg 05/13/18 15:38 05/15/18 12:23 Roxicodone - PO 5 mg Q6H PRN Administration PAIN LEVEL 6-10 Varenicline 0.5 mg 05/14/18 10:00 05/15/18 09:45 Chantix - PO 0.5 mg DAILY JACKY Administration Impression 1. ESRD 2. s/p fall 3. chronic back pain 4. anemia 5. anxiety 6. hx of nsaid use 7. chf diastolic 8. possible complex renal cyst 9. HLD 10. nephrolithiasis 11. copd 12. left internal capsule infarct Plan - renal diet - cont phoslo - taper steroids - compliance is a problem - cont HD as scheduled
[2018-05-15] MEDS: guaiFENesin/CODEINE 5 ML UNIT-DOSE CUPS PO PRN (22:31)
[2018-05-15] MEDS: ATORVASTATIN CA 10 MG TABLET (FP) PO SCH (22:31)
[2018-05-15] MEDS: MELATONIN 5 MG TABLETS PO PRN (22:31)
[2018-05-16] MEDS: HEPARIN NA (PORCINE) 5,000 UNITS/ML 1ML VIAL SQ SCH ×3 (06:44→21:55)
[2018-05-16] MEDS: GABAPENTIN 300 MG CAPSULE (FP) PO SCH ×4 (06:45→21:55)
[2018-05-16] MEDS: oxyCODONE HCL 5 MG TABLET PO PRN ×3 (06:45→19:03)
[2018-05-16] MEDS ORDERED: AMPICILLIN NA/SULBACTAM NA 1.5 GM in SODIUM CHLORIDE 100 ML IVPB SCH (07:30)
[2018-05-16] MEDS: ALBUTEROL SO4 2.5/IPRATROPIUM 0.5 INH SOL 3 ML VIAL.NEB. NEB SCH ×4 (07:35→21:50)
[2018-05-16] MEDS ORDERED: ACETAMINOPHEN 325 MG TABLET (FP) ONE (08:07)
[2018-05-16 08:35] LABS: BASO % 0.9 % (0-2.0); EOS % 0.8 % (0-4.5); HEMATOCRIT 24.7 % (32.4-45.2); HEMOGLOBIN 8.2 GM/dL (10.7-15.3); LYMPH % 9.3 % (8-40); MCH 29.9 pg (25.7-33.7); MCHC 33.2 g/dl (32.0-36.0); MEAN CELL VOLUME 90.2 fl (80-96); MEAN PLT VOLUME 8.4 fl (7.5-11.1); MONO % 7.6 % (3.8-10.2); NEUT % 81.4 % (42.8-82.8); PLATELET COUNT 220 K/MM3 (134-434); RBC 2.74 M/mm3 (3.60-5.2); RDW 17.5 % (11.6-15.6); WHITE BLOOD COUNT 12.7 K/mm3 (4.0-10.0)
[2018-05-16] MEDS: CALCIUM ACETATE 667 MG CAPSULE (FP) PO SCH ×3 (08:41→17:15)
[2018-05-16 09:10] LABS: ANION GAP 12 MMOL/L (8-16); BLOOD UREA NITROGEN 87 mg/dL (7-18); CALCIUM 7.4 mg/dL (8.5-10.1); CHLORIDE 99 mmol/L (98-107); CO2 24 mmol/L (21-32); GLUCOSE,RANDOM 93 mg/dL (74-106); MAGNESIUM 1.8 mg/dL (1.8-2.4); PHOSPHOROUS 5.9 mg/dL (2.5-4.9); POTASSIUM 3.4 mmol/L (3.5-5.1); SODIUM 136 mmol/L (136-145)
[2018-05-16] MEDS: amLODIPine BESYLATE 2.5 MG TABLET (FP) PO SCH (09:34)
[2018-05-16] MEDS: BUDESONIDE/FORMETEROL FUMARATE 160/4.5 mcg INHALER IH SCH ×2 (09:34→21:56)
[2018-05-16] MEDS: VARENICLINE TARTRATE 0.5 MG TAB PO SCH (09:34)
[2018-05-16] MEDS: DULoxetine HCL 30 MG CAPSULE.DR (FP) PO SCH (09:34)
[2018-05-16] MEDS ORDERED: BUDESONIDE/FORMETEROL FUMARATE 160/4.5 mcg INHALER IH SCH (10:00)
--- NOTE | 2018-05-16 10:38 | CON.PSY ---
Psychiatry Consult Chief Complaint: 63 year old female chris a history of many chronic medical conditions and depression . Patient seen for Psych eval. Have seen this patient brefore. I need a battery operated Oxygen Tank. I have ton stay at my [facility]. I am not more depressed at t5hiis time. I feel anxious and suck on the Pacifier but I am not crazy. Symptoms: reports: Depressed Mood, Anxiety - Previous Psychiatric Treatment Outpatient: None, More than 6 mos ago Inpatient: None - Previous Substance Abuse Treatment Outpatient: None - Reason for Previous Treatment Reason for Previous Treatment: Major Depression, Anxiety or Panic Disorder - Current Medications Current Medications: Active Medications Albuterol Sulfate (Ventolin Hfa Inhaler -) 2 puff IH Q4H PRN PRN Reason: SHORT OF BREATH/WHEEZING Albuterol/Ipratropium (Duoneb -) 1 amp NEB RQID [facility] Last Admin: 05/15/18 20:49 Dose: 1 amp Amlodipine Besylate (Norvasc -) 2.5 mg PO DAILY [facility] Last Admin: 05/16/18 09:34 Dose: 2.5 mg Atorvastatin Calcium (Lipitor -) 10 mg PO HS [facility] Last Admin: 05/15/18 22:31 Dose: 10 mg Budesonide/Formoterol Fumarate (Symbicort 160/4.5mcg -) 2 puff IH BID [facility] Last Admin: 05/16/18 09:34 Dose: 2 puff Calcium Acetate (Phoslo -) 1,334 mg PO TIDCM [facility] Last Admin: 05/16/18 08:41 Dose: 1,334 mg Duloxetine HCl (Cymbalta -) 30 mg PO DAILY [facility] Last Admin: 05/16/18 09:34 Dose: 30 mg Gabapentin (Neurontin -) 300 mg PO TID [facility] Last Admin: 05/16/18 06:45 Dose: 300 mg Guaifenesin/Codeine Phosphate (Robitussin Ac -) 5 ml PO TID PRN PRN Reason: COUGH Last Admin: 05/15/18 22:31 Dose: 5 ml Heparin Sodium (Porcine) (Heparin -) 5,000 unit SQ TID [facility] Last Admin: 05/16/18 06:44 Dose: 5,000 unit Sodium Chloride (Normal Saline -) 1,000 mls @ 42 mls/hr IV ASDIR [facility] Last Admin: 05/15/18 16:42 Dose: 42 mls/hr Ampicillin Sodium/Sulbactam (Sodium 1.5 gm/ Sodium Chloride) 100 mls @ 200 mls/ hr IVPB Q8H-IV JACKY Melatonin (Melatonin) 5 mg PO HS PRN PRN Reason: INSOMNIA Last Admin: 05/15/18 22:31 Dose: 5 mg Methocarbamol (Robaxin -) 500 mg PO BID PRN PRN Reason: MUSCLE SPASMS Oxycodone HCl (Roxicodone -) 5 mg PO Q6H PRN PRN Reason: PAIN LEVEL 6-10 Last Admin: 05/16/18 06:45 Dose: 5 mg Varenicline (Chantix -) 0.5 mg PO DAILY JACKY Last Admin: 05/16/18 09:34 Dose: 0.5 mg - Allergies Allergies: Allergies Allergy/AdvReac Type Severity Reaction Status Date / Time levofloxacin [From Levaquin] Allergy Mild Itching Verified 05/13/18 08:25 - Current Living Status Usual Living Arrangement: With Child - Current Mental Status Evaluation Appearance: Well Groomed Attitude: Cooperative - Affect Affect: Constrictive Appropriateness: Appropriate to Content - Mood Mood: Anxious - Speech/Language Expressive: Coherent - Psychomotor Activity Psychomotor Activity: Slowed - Thought Process Thought Process: Intact - Thought Content Hallucinations: Absent Delusions: Absent - Self Perception Self Perception: No Impairment - Cognition Attention: Alert Orientation: Time Memory, Immediate Recall: Intact Memory, Short Term: 2/3 Memory, Remote with Promptin/3 - Concentration Serial Sevens Intact: No Simple Calculations Intact: Yes - Abstraction Proverb Interpretation: Intact Judgement: Minimally Impaired - Insight Insight: Intact - Impulse Control Impulse Control: Good Control - Suicidal Ideation Suicidal Ideation: No - Homicidal Ideation Homicidal Ideation: No Assessment/Plan 1) continue with Cymbalta and Nuerontin as prescribed.
--- NOTE | 2018-05-16 11:19 | PN ---
Physical Exam: SUBJECTIVE: Patient seen and examined this AM. She states that she is feeling better and says that she could go home if she could get her portable oxygen tank. OBJECTIVE: Vital Signs Period Temp Pulse Resp BP Sys/Bills Pulse Ox Last 24 Hr 98.2 F-99.0 F 99-110 19-20 152-161/77-92 94-95 GENERAL: A&O, moderate distress, anxious on exam HEAD: Normocephalic, atraumatic. EYES: no scleral icterus EARS, NOSE, THROAT: oropharynx clear without exudates. Moist mucous membranes. LUNGS: course breath sounds and wheezes throughout, examined during sleeping and breath sounds greatly improved from when awake HEART: Regular rate and rhythm, normal S1 and S2 without murmur ABDOMEN: Soft, nontender to palpation, normoactive bowel sounds MUSCULOSKELETAL: Tenderness to palpation somewhat diffusely according to patient. worst in right shoulder and upper arm. Decreased ROM right shoulder limited due to pain EXTREMITIES: warm, well-perfused. No peripheral edema. NEUROLOGICAL: Cranial nerves II-XII grossly intact. Normal speech. PSYCHIATRIC: Very anxious and tearful on exam, has a pacifier hanging around her neck Laboratory Results - last 24 hr 05/15/18 05/15/18 05/16/18 06:56 06:56 07:55 WBC 12.7 H RBC 2.74 L Hgb 8.2 L Hct 24.7 L MCV 90.2 MCH 29.9 MCHC 33.2 RDW 17.5 H Plt Count 220 MPV 8.4 Absolute Neuts (auto) 10.3 H Neutrophils % 81.4 Lymphocytes % 9.3 D Monocytes % 7.6 Eosinophils % 0.8 D Basophils % 0.9 Nucleated RBC % 0 ESR 28 Sodium Potassium Chloride Carbon Dioxide Anion Gap BUN Creatinine Creat Clearance w eGFR Random Glucose Calcium Phosphorus Magnesium Iron 32 TIBC 313 Iron Saturation 10 L Transferrin 237 Free T3 1.9 L 05/16/18 07:55 WBC RBC Hgb Hct MCV MCH MCHC RDW Plt Count MPV Absolute Neuts (auto) Neutrophils % Lymphocytes % Monocytes % Eosinophils % Basophils % Nucleated RBC % ESR Sodium 136 Potassium 3.4 L Chloride 99 Carbon Dioxide 24 Anion Gap 12 BUN 87 H Creatinine 4.0 H Creat Clearance w eGFR 11.38 Random Glucose 93 Calcium 7.4 L Phosphorus 5.9 H Magnesium 1.8 Iron TIBC Iron Saturation Transferrin Free T3 Active Medications Generic Name Dose Route Start Last Admin Trade Name Freq PRN Reason Stop Dose Admin Albuterol Sulfate 2 puff 05/13/18 15:38 Ventolin Hfa Inhaler - IH Q4H PRN SHORT OF BREATH/WHEEZING Albuterol/Ipratropium 1 amp 05/13/18 16:00 05/16/18 07:35 Duoneb - NEB 1 amp RQID JACKY Administration Amlodipine Besylate 2.5 mg 05/14/18 10:00 05/16/18 09:34 Norvasc - PO 2.5 mg DAILY JACKY Administration Atorvastatin Calcium 10 mg 05/14/18 22:00 05/15/18 22:31 Lipitor - PO 10 mg HS JACKY Administration Budesonide/Formoterol Fumarate 2 puff 05/16/18 10:00 05/16/18 09:34 Symbicort 160/4.5mcg - IH 2 puff BID JACKY Administration Calcium Acetate 1,334 mg 05/14/18 12:00 05/16/18 08:41 Phoslo - PO 1,334 mg TIDCM JACKY Administration Duloxetine HCl 30 mg 05/14/18 10:00 05/16/18 09:34 Cymbalta - PO 30 mg DAILY JACKY Administration Gabapentin 300 mg 05/13/18 22:00 05/16/18 06:45 Neurontin - PO 300 mg TID JACKY Administration Guaifenesin/Codeine Phosphate 5 ml 05/13/18 15:38 05/15/18 22:31 Robitussin Ac - PO 5 ml TID PRN Administration COUGH Heparin Sodium (Porcine) 5,000 unit 05/13/18 22:00 05/16/18 06:44 Heparin - SQ 5,000 unit TID JACKY Administration Sodium Chloride 1,000 mls @ 42 mls/hr 05/13/18 14:00 05/15/18 16:42 Normal Saline - IV 42 mls/hr ASDIR JACKY Administration Ampicillin Sodium/Sulbactam 100 mls @ 200 mls/hr 05/16/18 07:30 Sodium 1.5 gm/ Sodium Chloride IVPB Q8H-IV JACKY Melatonin 5 mg 05/13/18 15:38 05/15/18 22:31 Melatonin PO 5 mg HS PRN Administration INSOMNIA Methocarbamol 500 mg 05/13/18 15:38 Robaxin - PO BID PRN MUSCLE SPASMS Oxycodone HCl 5 mg 05/13/18 15:38 05/16/18 06:45 Roxicodone - PO 5 mg Q6H PRN Administration PAIN LEVEL 6-10 Varenicline 0.5 mg 05/14/18 10:00 05/16/18 09:34 Chantix - PO 0.5 mg DAILY JACKY Administration ASSESSMENT/PLAN: 63 year old female with history of chronic hypoxic respiratory failure sec to COPD, chronic diastolic heart failure, HTN, hyperlipidemia, hypothyroidism, ESRD , GERD, depression, anxiety, peripheral neuropathy, ovarian cancer, chronic back pain admitted with complaint of SOB and cough, and missed dialysis. UTI -Could have contributed to falls at home -Urine cultures positive with VRE and Staph epi, pt symptomatic -Pending sensitivities -ID consulted -Unasyn one time dose given yesterday, will discuss with ID for further recs Mechanical falls, r/o CVA vs TIA -CT head noted with Left internal capsule hypodense region concerning for infarct -Neurology consult appreciated -MRI without any concerns for acute ischemic changes -CTA neck without any hemodynamically significant pathology -Physical Therapy eval -Pt could possibly require short term inpatient rehab facility Acute on Chronic Respiratory Failure likely secondary to acute COPD exacerbation - resolved from previous admission -On 3L home O2 -Symbicort -DuoNebs RQID -DC prednisone yesterday Depression/Anxiety -Cymbalta 30 mg PO Daily -Pt could benefit greatly from outpatient psych follow up -Seen by psych here, continue cymbalta and neurontin Chronic Diastolic Heart Failure -Stable, not in acute signs of volume overload HTN -Norvasc 2.5 mg PO Daily HLD -Lipitor 10 mg PO HS ESRD -HD on T,,S -Nephrology Consult appreciated -HD as per nephrology -Monitor electrolytes GERD -Protonix 40 mg PO Daily Anemia -Likely secondary to ESRD -H/H stable DVT Prophylaxis -Heparin 5000 units SQ TID FEN -Fluids: None -Electrolytes: Monitor and replete cuatiously with ESRD, phoslo as per nephrology, BMP in AM -Nutrition: Renal Diet Disposition Telemetry Visit type - Emergency Visit Emergency Visit: Yes ED Registration Date: 05/15/18 Care time: The patient presented to the Emergency Department on the above date and was hospitalized for further evaluation of their emergent condition. - New Patient This patient is new to me today: No - Critical Care Critical Care patient: No
--- NOTE | 2018-05-16 12:29 | PN ---
Progress Note, Physician History of Present Illness: Pt seen and examined at bedside. She is awake and alert. She denies shortness of breath. - Current Medication List Current Medications: Active Medications Albuterol Sulfate (Ventolin Hfa Inhaler -) 2 puff IH Q4H PRN PRN Reason: SHORT OF BREATH/WHEEZING Albuterol/Ipratropium (Duoneb -) 1 amp NEB RQID [facility] Last Admin: 05/16/18 11:42 Dose: 1 amp Amlodipine Besylate (Norvasc -) 2.5 mg PO DAILY [facility] Last Admin: 05/16/18 09:34 Dose: 2.5 mg Atorvastatin Calcium (Lipitor -) 10 mg PO HS [facility] Last Admin: 05/15/18 22:31 Dose: 10 mg Budesonide/Formoterol Fumarate (Symbicort 160/4.5mcg -) 2 puff IH BID [facility] Last Admin: 05/16/18 09:34 Dose: 2 puff Calcium Acetate (Phoslo -) 1,334 mg PO TIDCM [facility] Last Admin: 05/16/18 11:33 Dose: 1,334 mg Duloxetine HCl (Cymbalta -) 30 mg PO DAILY [facility] Last Admin: 05/16/18 09:34 Dose: 30 mg Gabapentin (Neurontin -) 300 mg PO TID [facility] Last Admin: 05/16/18 06:45 Dose: 300 mg Guaifenesin/Codeine Phosphate (Robitussin Ac -) 5 ml PO TID PRN PRN Reason: COUGH Last Admin: 05/15/18 22:31 Dose: 5 ml Heparin Sodium (Porcine) (Heparin -) 5,000 unit SQ TID [facility] Last Admin: 05/16/18 06:44 Dose: 5,000 unit Sodium Chloride (Normal Saline -) 1,000 mls @ 42 mls/hr IV ASDIR [facility] Last Admin: 05/15/18 16:42 Dose: 42 mls/hr Ampicillin Sodium/Sulbactam (Sodium 1.5 gm/ Sodium Chloride) 100 mls @ 200 mls/ hr IVPB Q8H-IV [facility] Melatonin (Melatonin) 5 mg PO HS PRN PRN Reason: INSOMNIA Last Admin: 05/15/18 22:31 Dose: 5 mg Methocarbamol (Robaxin -) 500 mg PO BID PRN PRN Reason: MUSCLE SPASMS Oxycodone HCl (Roxicodone -) 5 mg PO Q6H PRN PRN Reason: PAIN LEVEL 6-10 Last Admin: 05/16/18 06:45 Dose: 5 mg Varenicline (Chantix -) 0.5 mg PO DAILY JACKY Last Admin: 05/16/18 09:34 Dose: 0.5 mg - Objective Vital Signs: Vital Signs Temperature 98.4 F 05/16/18 10:00 Pulse Rate 104 H 05/16/18 10:00 Respiratory Rate 20 05/16/18 10:00 Blood Pressure 158/90 05/16/18 10:00 O2 Sat by Pulse Oximetry (%) 95 05/16/18 10:00 Constitutional: Yes: Anxious Eyes: Yes: Conjunctiva Clear Cardiovascular: Yes: S1, S2 Respiratory: Yes: Wheezes Gastrointestinal: Yes: Normal Bowel Sounds, Soft Genitourinary: Yes: WNL Musculoskeletal: Yes: WNL Edema: Yes Edema: LLE: Trace, RLE: Trace Neurological: Yes: Oriented Psychiatric: Yes: Oriented Labs: CBC, BMP 05/16/18 07:55 05/16/18 07:55 INR, PTT INR 1.08 (0.83-1.09) 05/13/18 16:30 Assessment/Plan Current Medications Generic Name Dose Route Start Last Admin Trade Name Freq PRN Reason Stop Dose Admin Albuterol Sulfate 2 puff 05/13/18 15:38 Ventolin Hfa Inhaler - IH Q4H PRN SHORT OF BREATH/WHEEZING Albuterol/Ipratropium 1 amp 05/13/18 16:00 05/16/18 11:42 Duoneb - NEB 1 amp RQID JACKY Administration Amlodipine Besylate 2.5 mg 05/14/18 10:00 05/16/18 09:34 Norvasc - PO 2.5 mg DAILY JACKY Administration Atorvastatin Calcium 10 mg 05/14/18 22:00 05/15/18 22:31 Lipitor - PO 10 mg HS JACKY Administration Budesonide/Formoterol Fumarate 2 puff 05/16/18 10:00 05/16/18 09:34 Symbicort 160/4.5mcg - IH 2 puff BID JACKY Administration Calcium Acetate 1,334 mg 05/14/18 12:00 05/16/18 11:33 Phoslo - PO 1,334 mg TIDCM JACKY Administration Duloxetine HCl 30 mg 05/14/18 10:00 05/16/18 09:34 Cymbalta - PO 30 mg DAILY JACKY Administration Gabapentin 300 mg 05/13/18 22:00 05/16/18 06:45 Neurontin - PO 300 mg TID JACKY Administration Guaifenesin/Codeine Phosphate 5 ml 05/13/18 15:38 05/15/18 22:31 Robitussin Ac - PO 5 ml TID PRN Administration COUGH Heparin Sodium (Porcine) 5,000 unit 05/13/18 22:00 05/16/18 06:44 Heparin - SQ 5,000 unit TID JACKY Administration Sodium Chloride 1,000 mls @ 42 mls/hr 05/13/18 14:00 05/15/18 16:42 Normal Saline - IV 42 mls/hr ASDIR JACKY Administration Ampicillin Sodium/Sulbactam 100 mls @ 200 mls/hr 05/16/18 07:30 Sodium 1.5 gm/ Sodium Chloride IVPB Q8H-IV JACKY Melatonin 5 mg 05/13/18 15:38 05/15/18 22:31 Melatonin PO 5 mg HS PRN Administration INSOMNIA Methocarbamol 500 mg 05/13/18 15:38 Robaxin - PO BID PRN MUSCLE SPASMS Oxycodone HCl 5 mg 05/13/18 15:38 05/16/18 06:45 Roxicodone - PO 5 mg Q6H PRN Administration PAIN LEVEL 6-10 Varenicline 0.5 mg 05/14/18 10:00 05/16/18 09:34 Chantix - PO 0.5 mg DAILY JACKY Administration Impression 1. ESRD 2. s/p fall 3. chronic back pain 4. anemia 5. anxiety 6. hx of nsaid use 7. chf diastolic 8. possible complex renal cyst 9. HLD 10. nephrolithiasis 11. copd 12. left internal capsule infarct Plan - HD today - renal diet - psych input appreciated - next HD on Saturday, will see on Saturday - cont phoslo - taper steroids - compliance is a problem
[2018-05-16 13:19] LABS: ANISOCYTOSIS 2+; MACROCYTOSIS 0; OVALOCYTE 2+; PLATELET ESTIMATE NORMAL; TEAR DROP CELLS 1+
[2018-05-16] MEDS ORDERED: SODIUM CHLORIDE 250 ML IV PRN (13:35)
[2018-05-16] MEDS ORDERED: EPOETIN ALFA 10,000 UNIT/1 ML VIAL IVPUSH ONE (13:45)
[2018-05-16] MEDS: SODIUM CHLORIDE 1,000 ML IV SCH (14:55)
--- NOTE | 2018-05-16 15:52 | PN ---
Teaching Attending Note Name of Resident: Uvaldo Alba ATTENDING PHYSICIAN STATEMENT I saw and evaluated the patient. I reviewed the resident's note and discussed the case with the resident. I agree with the resident's findings and plan as documented. SUBJECTIVE: Patient has no complaints. OBJECTIVE: Vital Signs Period Temp Pulse Resp BP Sys/Bills Pulse Ox Last 24 Hr 97.7 F-98.4 F 86-120 18-20 130-161/70-100 94-95 HEART: S1S2, RRR LUNGS: Clear ABDOMEN: Soft, non-distended, non-tender, normal BS EXTREMITIES: No edema Laboratory Results - last 24 hr 05/15/18 05/15/18 05/16/18 06:56 06:56 07:55 WBC 12.7 H RBC 2.74 L Hgb 8.2 L Hct 24.7 L MCV 90.2 MCH 29.9 MCHC 33.2 RDW 17.5 H Plt Count 220 MPV 8.4 Absolute Neuts (auto) 10.3 H Neutrophils % 81.4 Neutrophils % (Manual) 87.0 H Band Neutrophils % 0.0 Lymphocytes % 9.3 D Lymphocytes % (Manual) 9.0 D Monocytes % 7.6 Monocytes % (Manual) 4 Eosinophils % 0.8 D Eosinophils % (Manual) 0.0 Basophils % 0.9 Basophils % (Manual) 0.0 Myelocytes % (Man) 0 Promyelocytes % (Man) 0 Blast Cells % (Manual) 0 Nucleated RBC % 0 Metamyelocytes 0 Hypochromia 0 Platelet Estimate Normal Polychromasia 1+ Poikilocytosis 1+ Anisocytosis 2+ Microcytosis 1+ Macrocytosis 0 Tear Drop Cells 1+ Ovalocytes 2+ Jolie Cells 2+ Sodium Potassium Chloride Carbon Dioxide Anion Gap BUN Creatinine Creat Clearance w eGFR Random Glucose Calcium Phosphorus Magnesium Iron 32 TIBC 313 Iron Saturation 10 L Transferrin 237 Free T3 1.9 L RPR Titer Nonreactive 05/16/18 07:55 WBC RBC Hgb Hct MCV MCH MCHC RDW Plt Count MPV Absolute Neuts (auto) Neutrophils % Neutrophils % (Manual) Band Neutrophils % Lymphocytes % Lymphocytes % (Manual) Monocytes % Monocytes % (Manual) Eosinophils % Eosinophils % (Manual) Basophils % Basophils % (Manual) Myelocytes % (Man) Promyelocytes % (Man) Blast Cells % (Manual) Nucleated RBC % Metamyelocytes Hypochromia Platelet Estimate Polychromasia Poikilocytosis Anisocytosis Microcytosis Macrocytosis Tear Drop Cells Ovalocytes [place] Cells Sodium 136 Potassium 3.4 L Chloride 99 Carbon Dioxide 24 Anion Gap 12 BUN 87 H Creatinine 4.0 H Creat Clearance w eGFR 11.38 Random Glucose 93 Calcium 7.4 L Phosphorus 5.9 H Magnesium 1.8 Iron TIBC Iron Saturation Transferrin Free T3 RPR Titer Current Medications Generic Name Dose Route Start Last Admin Trade Name Freq PRN Reason Stop Dose Admin Albuterol Sulfate 2 puff 05/13/18 15:38 Ventolin Hfa Inhaler - IH Q4H PRN SHORT OF BREATH/WHEEZING Albuterol/Ipratropium 1 amp 05/13/18 16:00 05/16/18 15:50 Duoneb - NEB 1 amp RQID JACKY Administration Amlodipine Besylate 2.5 mg 05/14/18 10:00 05/16/18 09:34 Norvasc - PO 2.5 mg DAILY JACKY Administration Atorvastatin Calcium 10 mg 05/14/18 22:00 05/15/18 22:31 Lipitor - PO 10 mg HS JACKY Administration Budesonide/Formoterol Fumarate 2 puff 05/16/18 10:00 05/16/18 09:34 Symbicort 160/4.5mcg - IH 2 puff BID JACKY Administration Calcium Acetate 1,334 mg 05/14/18 12:00 05/16/18 11:33 Phoslo - PO 1,334 mg TIDCM JACKY Administration Duloxetine HCl 30 mg 05/14/18 10:00 05/16/18 09:34 Cymbalta - PO 30 mg DAILY JACKY Administration Gabapentin 300 mg 05/13/18 22:00 05/16/18 14:54 Neurontin - PO Not Given TID JACKY Guaifenesin/Codeine Phosphate 5 ml 05/13/18 15:38 05/15/18 22:31 Robitussin Ac - PO 5 ml TID PRN Administration COUGH Heparin Sodium (Porcine) 5,000 unit 05/13/18 22:00 05/16/18 14:55 Heparin - SQ Not Given TID JACKY Sodium Chloride 1,000 mls @ 42 mls/hr 05/13/18 14:00 05/16/18 14:55 Normal Saline - IV Not Given ASDIR JACKY Sodium Chloride 250 mls @ 3,000 mls/hr 05/16/18 13:35 Normal Saline - IV 05/17/18 13:34 PRN PRN Hypotension during Dialysis Melatonin 5 mg 05/13/18 15:38 05/15/18 22:31 Melatonin PO 5 mg HS PRN Administration INSOMNIA Methocarbamol 500 mg 05/13/18 15:38 Robaxin - PO BID PRN MUSCLE SPASMS Oxycodone HCl 5 mg 05/13/18 15:38 05/16/18 12:37 Roxicodone - PO 5 mg Q6H PRN Administration PAIN LEVEL 6-10 Varenicline 0.5 mg 05/14/18 10:00 05/16/18 09:34 Chantix - PO 0.5 mg DAILY JACKY Administration ASSESSMENT AND PLAN: This is a 63 year old woman with a history of chronic hypoxic respiratory failure, COPD, chronic diastolic heart failure, HTN, hyperlipidemia, hypothyroidism, ESRD, GERD, depression, anxiety, iron deficiency anemia, peripheral neuropathy, ovarian cancer, chronic back pain who presented to the ED after falling from bed twice. 1. s/p fall with trauma to head, face, neck, and right shoulder - MRI of brain shows moderate atrophy; moderate to marked chronic periventricular microvascular ischemic changes; likely chronic hemorrhagic lacunar infarcts in left basal ganglia and medial left occipital lobe 2. Possible steroid myopathy - Prednisone has been discontinued - Physical therapy 3. Possible acute toxic metabolic encephalopathy secondary to sepsis and UTI - Urine culture growing VRE and Staph epi - Patient was recently treated with vancomycin for MRSA abscess of right axilla - TSH was normal on 05/09, but low now; B12 and ammonia are normal; RPR is non -reactive - ID recommending observing off antibiotics at this time 4. Chronic hypoxic respiratory failure secondary to COPD - Continue DuoNeb, albuterol as needed - Completed course of Prednisone - Continue oxygen to maintain saturation >90% 5. Chronic diastolic heart failure - No evidence of acute heart failure 6. HTN - Continue Norvasc 7. Hyperlipidemia - Continue Lipitor 8. Hypothyroidism - TSH was normal (1.65 on 05/09/18) and low (0.22 today) - On no medication - Would recheck TFTs as outpatient after she has been off steroids 9. ESRD - HD as per nephrology 10. Hyperphosphatemia - Continue PhosLo 11. GERD 12. Depression with anxiety and psychosis - Continue Cymbalta 13. Anemia secondary to iron deficiency and CKD 14. Peripheral neuropathy - Continue Neurontin 15. Chronic back pain - Continue Neurontin, Cymbalta, Lidoderm patch, oxycodone as needed 16. Nicotine dependence - Continue Chantix
[2018-05-16] MEDS: ATORVASTATIN CA 10 MG TABLET (FP) PO SCH (21:56)
[2018-05-16] MEDS: guaiFENesin/CODEINE 5 ML UNIT-DOSE CUPS PO PRN (21:56)
[2018-05-17] MEDS: oxyCODONE HCL 5 MG TABLET PO PRN ×3 (00:54→19:29)
[2018-05-17] MEDS: GABAPENTIN 300 MG CAPSULE (FP) PO SCH ×3 (06:14→21:48)
[2018-05-17] MEDS: HEPARIN NA (PORCINE) 5,000 UNITS/ML 1ML VIAL SQ SCH ×3 (06:14→21:49)
[2018-05-17 07:24] LABS: HEMATOCRIT 26.5 % (32.4-45.2); HEMOGLOBIN 8.9 GM/dL (10.7-15.3); MCH 30.6 pg (25.7-33.7); MCHC 33.4 g/dl (32.0-36.0); MEAN CELL VOLUME 91.6 fl (80-96); MEAN PLT VOLUME 8.9 fl (7.5-11.1); PLATELET COUNT 218 K/MM3 (134-434); RBC 2.89 M/mm3 (3.60-5.2); RDW 17.5 % (11.6-15.6); WHITE BLOOD COUNT 11.6 K/mm3 (4.0-10.0)
[2018-05-17] MEDS: ALBUTEROL SO4 2.5/IPRATROPIUM 0.5 INH SOL 3 ML VIAL.NEB. NEB SCH ×4 (07:44→20:49)
[2018-05-17 07:48] LABS: ANION GAP 12 MMOL/L (8-16); BLOOD UREA NITROGEN 57 mg/dL (7-18); CALCIUM 8.2 mg/dL (8.5-10.1); CHLORIDE 101 mmol/L (98-107); CO2 27 mmol/L (21-32); CREATININE 2.9 mg/dL (0.55-1.3); GLUCOSE,RANDOM 100 mg/dL (74-106); MAGNESIUM 1.5 mg/dL (1.8-2.4); PHOSPHOROUS 3.6 mg/dL (2.5-4.9); SODIUM 140 mmol/L (136-145)
[2018-05-17] MEDS: CALCIUM ACETATE 667 MG CAPSULE (FP) PO SCH ×3 (08:05→17:56)
[2018-05-17] MEDS: DULoxetine HCL 30 MG CAPSULE.DR (FP) PO SCH (09:22)
[2018-05-17] MEDS: amLODIPine BESYLATE 2.5 MG TABLET (FP) PO SCH (09:22)
[2018-05-17] MEDS: BUDESONIDE/FORMETEROL FUMARATE 160/4.5 mcg INHALER IH SCH ×2 (09:23→21:53)
[2018-05-17] MEDS: VARENICLINE TARTRATE 0.5 MG TAB PO SCH (12:44)
--- NOTE | 2018-05-17 13:30 | PN ---
Progress Note (short form) - Note Progress Note: ID CONSULT DICTATED + URINE C/S VRE, SCN C/W CONTAMINATION NO TREATMENT ADVISED
[2018-05-17] MEDS: guaiFENesin/CODEINE 5 ML UNIT-DOSE CUPS PO PRN ×2 (14:00→21:49)
--- NOTE | 2018-05-17 14:06 | CONS ---
DATE OF CONSULTATION: DATE OF DICTATION: 05/17/2018 HISTORY OF PRESENT ILLNESS: The patient is a 63-year-old female with history of end-stage renal disease on hemodialysis evaluated for positive urine culture. The patient was admitted to the hospital on May 15, 2018, after a fall. She was admitted to the telemetry unit, seen in consultation by Neurology. Her urinalysis was sent on admission and had 10 white cells. Urine culture grew 60,000 to 70,000 colonies of VRE and coagulation negative staph. Patient complains of polyuria. She did have some dysuria. However, it is not symptomatic at the present time. She denies any suprapubic or flank pain. She has been afebrile with a slightly elevated white blood cell count. PAST MEDICAL HISTORY: Positive for end-stage renal disease, COPD, CHF, hyperlipidemia, hypertension, history of MRSA, soft tissue infection right axilla. ALLERGIES: To LEVAQUIN (pruritus). MEDICATIONS: Include Symbicort, heparin, Neurontin, Cymbalta, Ventolin, Robaxin, Norvasc, Lipitor. PAST SURGICAL HISTORY: Status post AV graft, right upper extremity, right total knee replacement. LABORATORY DATA: White count 11.6. Creatinine 2.9. Urinalysis 10 white cells. Blood cultures negative. PHYSICAL EXAMINATION: General: She is awake and alert, in no acute distress. Vital signs: Temperature 98, blood pressure 134/72, pulse 72, respirations 22 per minute. HEENT: Sclerae anicteric. Heart: Heart sounds S1, S2. Lungs: Clear. Abdomen: Soft. No suprapubic or flank tenderness. Extremities: Negative for edema. IMPRESSION: Positive urine culture for vancomycin-resistant enterococci and staph coagulase negative in low colony count consistent with contamination. No treatment is advised. Contact precautions for VRE. Should patient develop increased urinary tract symptoms, would obtain repeat urinalysis and culture via catheterization JAKY JOHNSON M.D. [id number]
[2018-05-17] MEDS: SODIUM CHLORIDE 1,000 ML IV SCH (15:00)
--- NOTE | 2018-05-17 15:32 | PN ---
Physical Exam: SUBJECTIVE: Patient seen and examined. She is ambulating in the room. OBJECTIVE: Vital Signs Period Temp Pulse Resp BP Sys/Bills Pulse Ox Last 24 Hr 97.2 F-98.0 F 90-117 18-24 134-170/72-90 94-96 GENERAL: The patient is awake, alert, and fully oriented, in no acute distress. LUNGS: Breath sounds equal, scattered rhonchi, no wheezes, no crackles, no accessory muscle use. HEART: Regular rate and rhythm, S1, S2 without murmur, rub or gallop. ABDOMEN: Soft, nontender, nondistended, normoactive bowel sounds, no guarding, no rebound, no hepatosplenomegaly, no masses. EXTREMITIES: 2+ pulses, warm, well-perfused, no edema. Laboratory Results - last 24 hr 05/17/18 05/17/18 05:30 05:30 WBC 11.6 H RBC 2.89 L Hgb 8.9 L Hct 26.5 L MCV 91.6 MCH 30.6 MCHC 33.4 RDW 17.5 H Plt Count 218 MPV 8.9 Sodium 140 Potassium 4.0 Chloride 101 Carbon Dioxide 27 Anion Gap 12 BUN 57 H Creatinine 2.9 H Creat Clearance w eGFR 16.50 Random Glucose 100 Calcium 8.2 L Phosphorus 3.6 Magnesium 1.5 L Active Medications Generic Name Dose Route Start Last Admin Trade Name Freq PRN Reason Stop Dose Admin Albuterol Sulfate 2 puff 05/13/18 15:38 Ventolin Hfa Inhaler - IH Q4H PRN SHORT OF BREATH/WHEEZING Albuterol/Ipratropium 1 amp 05/13/18 16:00 05/17/18 11:32 Duoneb - NEB 1 amp RQID JACKY Administration Amlodipine Besylate 2.5 mg 05/14/18 10:00 05/17/18 09:22 Norvasc - PO 2.5 mg DAILY JACKY Administration Atorvastatin Calcium 10 mg 05/14/18 22:00 05/16/18 21:56 Lipitor - PO 10 mg HS JACKY Administration Budesonide/Formoterol Fumarate 2 puff 05/16/18 10:00 05/17/18 09:23 Symbicort 160/4.5mcg - IH 2 puff BID JACKY Administration Calcium Acetate 1,334 mg 05/14/18 12:00 05/17/18 12:44 Phoslo - PO 1,334 mg TIDCM JACKY Administration Duloxetine HCl 30 mg 05/14/18 10:00 05/17/18 09:22 Cymbalta - PO 30 mg DAILY JACKY Administration Gabapentin 300 mg 05/13/18 22:00 05/17/18 14:00 Neurontin - PO 300 mg TID JACKY Administration Guaifenesin/Codeine Phosphate 5 ml 05/13/18 15:38 05/17/18 14:00 Robitussin Ac - PO 5 ml TID PRN Administration COUGH Heparin Sodium (Porcine) 5,000 unit 05/13/18 22:00 05/17/18 14:00 Heparin - SQ 5,000 unit TID JACKY Administration Sodium Chloride 1,000 mls @ 42 mls/hr 05/13/18 14:00 05/16/18 14:55 Normal Saline - IV Not Given ASDIR JACKY Melatonin 5 mg 05/13/18 15:38 05/15/18 22:31 Melatonin PO 5 mg HS PRN Administration INSOMNIA Methocarbamol 500 mg 05/13/18 15:38 Robaxin - PO BID PRN MUSCLE SPASMS Oxycodone HCl 5 mg 05/13/18 15:38 05/17/18 06:52 Roxicodone - PO 5 mg Q6H PRN Administration PAIN LEVEL 6-10 Varenicline 0.5 mg 05/14/18 10:00 05/17/18 12:44 Chantix - PO 0.5 mg DAILY JACKY Administration ASSESSMENT/PLAN: This is a 63 year old woman with a history of chronic hypoxic respiratory failure, COPD, chronic diastolic heart failure, HTN, hyperlipidemia, hypothyroidism, ESRD, GERD, depression, anxiety, iron deficiency anemia, peripheral neuropathy, ovarian cancer, chronic back pain who presented to the ED after falling from bed twice. 1. s/p fall with trauma to head, face, neck, and right shoulder - MRI of brain shows moderate atrophy; moderate to marked chronic periventricular microvascular ischemic changes; likely chronic hemorrhagic lacunar infarcts in left basal ganglia and medial left occipital lobe 2. Possible steroid myopathy - Prednisone has been discontinued - Physical therapy 3. Possible acute toxic metabolic encephalopathy secondary to sepsis and UTI - Urine culture growing VRE and Staph epi, thought to be contaminants - Patient was recently treated with vancomycin for MRSA abscess of right axilla - TSH was normal on 05/09, but low now; B12 and ammonia are normal; RPR is non -reactive 4. Chronic hypoxic respiratory failure secondary to COPD - Continue DuoNeb, albuterol as needed - Completed course of Prednisone - Continue oxygen to maintain saturation >90% 5. Chronic diastolic heart failure - No evidence of acute heart failure 6. HTN - Continue Norvasc 7. Hyperlipidemia - Continue Lipitor 8. Hypothyroidism - TSH was normal (1.65 on 05/09/18) and low (0.22 today) - On no medication - Would recheck TFTs as outpatient after she has been off steroids 9. ESRD - HD as per nephrology 10. Hyperphosphatemia - Continue PhosLo 11. GERD 12. Depression with anxiety and psychosis - Continue Cymbalta 13. Anemia secondary to iron deficiency and CKD 14. Peripheral neuropathy - Continue Neurontin 15. Chronic back pain - Continue Neurontin, Cymbalta, Lidoderm patch, oxycodone as needed 16. Nicotine dependence - Continue Chantix 17. Disposition - Continue PT - ambulated 25 feet with close contact guard of 2 today - Short term rehab recommended, but she has been refusing Visit type - Emergency Visit Emergency Visit: Yes ED Registration Date: 05/15/18 Care time: The patient presented to the Emergency Department on the above date and was hospitalized for further evaluation of their emergent condition. - New Patient This patient is new to me today: No - Critical Care Critical Care patient: No - Discharge Referral Referred to [facility] No
[2018-05-17] MEDS: ATORVASTATIN CA 10 MG TABLET (FP) PO SCH (21:48)
[2018-05-17] MEDS: MELATONIN 5 MG TABLETS PO PRN (21:48)
[2018-05-18] MEDS: oxyCODONE HCL 5 MG TABLET PO PRN ×4 (01:16→19:42)
[2018-05-18] MEDS: GABAPENTIN 300 MG CAPSULE (FP) PO SCH ×3 (06:42→22:52)
[2018-05-18] MEDS: HEPARIN NA (PORCINE) 5,000 UNITS/ML 1ML VIAL SQ SCH ×3 (06:43→22:52)
[2018-05-18 06:59] LABS: BASO % 0.1 % (0-2.0); EOS % 3.5 % (0-4.5); HEMATOCRIT 25.6 % (32.4-45.2); HEMOGLOBIN 8.6 GM/dL (10.7-15.3); MCH 30.4 pg (25.7-33.7); MCHC 33.4 g/dl (32.0-36.0); MONO % 5.7 % (3.8-10.2); NEUT % 80.7 % (42.8-82.8); PLATELET COUNT 210 K/MM3 (134-434); RBC 2.82 M/mm3 (3.60-5.2); RDW 17.2 % (11.6-15.6); WHITE BLOOD COUNT 11.3 K/mm3 (4.0-10.0)
[2018-05-18 07:14] LABS: ANION GAP 11 MMOL/L (8-16); BLOOD UREA NITROGEN 85 mg/dL (7-18); CHLORIDE 99 mmol/L (98-107); CO2 26 mmol/L (21-32); CREATININE 4.1 mg/dL (0.55-1.3); GLUCOSE,RANDOM 82 mg/dL (74-106); MAGNESIUM 1.7 mg/dL (1.8-2.4); POTASSIUM 3.9 mmol/L (3.5-5.1); SODIUM 136 mmol/L (136-145)
[2018-05-18] MEDS: ALBUTEROL SO4 2.5/IPRATROPIUM 0.5 INH SOL 3 ML VIAL.NEB. NEB SCH ×3 (08:22→21:15)
[2018-05-18] MEDS ORDERED: PT OWN MED DRAWER 7, Y5N ONE ×2 (08:50→09:23)
--- NOTE | 2018-05-18 09:51 | PN ---
Physical Exam: SUBJECTIVE: Patient seen and examined this AM. She states she is able to get up and around as needed but states she is still having weakness and pain all over. OBJECTIVE: Vital Signs Period Temp Pulse Resp BP Sys/Bills Pulse Ox Last 24 Hr 97.9 F-99 F 102-117 19-22 134-156/72-84 96-96 GENERAL: A&O, no acute distress, anxious on exam HEAD: Normocephalic, atraumatic. EARS, NOSE, THROAT: oropharynx clear without exudates. Moist mucous membranes. LUNGS: course breath sounds and wheezes throughout, examined previously during sleeping and breath sounds greatly improved from when awake HEART: Regular rate and rhythm, normal S1 and S2 without murmur ABDOMEN: Soft, nontender to palpation, normoactive bowel sounds MUSCULOSKELETAL: Tenderness to palpation somewhat diffusely according to patient. worst in right shoulder and upper arm. Decreased ROM right shoulder limited due to pain. PSYCHIATRIC: Very anxious and tearful on exam, has a pacifier hanging around her neck Laboratory Results - last 24 hr 05/18/18 05/18/18 05:30 05:30 WBC 11.3 H RBC 2.82 L Hgb 8.6 L Hct 25.6 L MCV 91.0 MCH 30.4 MCHC 33.4 RDW 17.2 H Plt Count 210 MPV 9.0 Absolute Neuts (auto) 9.1 H Neutrophils % 80.7 Lymphocytes % 10.0 Monocytes % 5.7 Eosinophils % 3.5 D Basophils % 0.1 Nucleated RBC % 0 Sodium 136 Potassium 3.9 Chloride 99 Carbon Dioxide 26 Anion Gap 11 BUN 85 H Creatinine 4.1 H Creat Clearance w eGFR 11.06 Random Glucose 82 Calcium 8.0 L Magnesium 1.7 L Active Medications Generic Name Dose Route Start Last Admin Trade Name Freq PRN Reason Stop Dose Admin Albuterol Sulfate 2 puff 05/13/18 15:38 Ventolin Hfa Inhaler - IH Q4H PRN SHORT OF BREATH/WHEEZING Albuterol/Ipratropium 1 amp 05/13/18 16:00 05/18/18 08:22 Duoneb - NEB 1 amp RQID JACKY Administration Amlodipine Besylate 2.5 mg 05/14/18 10:00 05/17/18 09:22 Norvasc - PO 2.5 mg DAILY JACKY Administration Atorvastatin Calcium 10 mg 05/14/18 22:00 05/17/18 21:48 Lipitor - PO 10 mg HS JACKY Administration Budesonide/Formoterol Fumarate 2 puff 05/16/18 10:00 05/17/18 21:53 Symbicort 160/4.5mcg - IH 2 puff BID JACKY Administration Calcium Acetate 1,334 mg 05/14/18 12:00 05/17/18 17:56 Phoslo - PO 1,334 mg TIDCM JACKY Administration Duloxetine HCl 30 mg 05/14/18 10:00 05/17/18 09:22 Cymbalta - PO 30 mg DAILY JACKY Administration Gabapentin 300 mg 05/13/18 22:00 05/18/18 06:42 Neurontin - PO 300 mg TID JACKY Administration Guaifenesin/Codeine Phosphate 5 ml 05/13/18 15:38 05/17/18 21:49 Robitussin Ac - PO 5 ml TID PRN Administration COUGH Heparin Sodium (Porcine) 5,000 unit 05/13/18 22:00 05/18/18 06:43 Heparin - SQ 5,000 unit TID JACKY Administration Sodium Chloride 1,000 mls @ 42 mls/hr 05/13/18 14:00 05/17/18 15:00 Normal Saline - IV Not Given ASDIR JACKY Melatonin 5 mg 05/13/18 15:38 05/17/18 21:48 Melatonin PO 5 mg HS PRN Administration INSOMNIA Methocarbamol 500 mg 05/13/18 15:38 Robaxin - PO BID PRN MUSCLE SPASMS Oxycodone HCl 5 mg 05/13/18 15:38 05/18/18 06:42 Roxicodone - PO 5 mg Q6H PRN Administration PAIN LEVEL 6-10 Varenicline 0.5 mg 05/14/18 10:00 05/17/18 12:44 Chantix - PO 0.5 mg DAILY JACKY Administration ASSESSMENT/PLAN: 63 year old female with history of chronic hypoxic respiratory failure sec to COPD, chronic diastolic heart failure, HTN, hyperlipidemia, hypothyroidism, ESRD , GERD, depression, anxiety, peripheral neuropathy, ovarian cancer, chronic back pain admitted with complaint of SOB and cough, and missed dialysis. UTI -Could have contributed to falls at home -Urine cultures positive with VRE and Staph epi, pt symptomatic -Pending sensitivities -ID consult appreciated -Monitor of Abx for now Mechanical falls, r/o CVA vs TIA -CT head noted with Left internal capsule hypodense region concerning for infarct -Neurology consult appreciated -MRI without any concerns for acute ischemic changes -CTA neck without any hemodynamically significant pathology -Physical Therapy eval -Pt could possibly require short term inpatient rehab facility Acute on Chronic Respiratory Failure likely secondary to acute COPD exacerbation - resolved from previous admission -On 3L home O2 -Symbicort -DuoNebs RQID Depression/Anxiety -Cymbalta 30 mg PO Daily -Pt could benefit greatly from outpatient psych follow up -Seen by psych here, continue cymbalta and neurontin Chronic Diastolic Heart Failure -Stable, not in acute signs of volume overload HTN -Norvasc 2.5 mg PO Daily HLD -Lipitor 10 mg PO HS ESRD -HD on ,,S -Nephrology Consult appreciated -HD as per nephrology -Monitor electrolytes GERD -Protonix 40 mg PO Daily Anemia -Likely secondary to ESRD -H/H stable DVT Prophylaxis -Heparin 5000 units SQ TID FEN -Fluids: None -Electrolytes: Monitor and replete cuatiously with ESRD, phoslo as per nephrology, BMP in AM -Nutrition: Renal Diet Disposition D/C tele, stable for transfer to med/surg floor Visit type - Emergency Visit Emergency Visit: Yes ED Registration Date: 05/15/18 Care time: The patient presented to the Emergency Department on the above date and was hospitalized for further evaluation of their emergent condition. - New Patient This patient is new to me today: No - Critical Care Critical Care patient: No
[2018-05-18] MEDS: DULoxetine HCL 30 MG CAPSULE.DR (FP) PO SCH (09:56)
[2018-05-18] MEDS: CALCIUM ACETATE 667 MG CAPSULE (FP) PO SCH ×3 (09:56→18:11)
[2018-05-18] MEDS: BUDESONIDE/FORMETEROL FUMARATE 160/4.5 mcg INHALER IH SCH ×2 (09:57→22:53)
[2018-05-18] MEDS: VARENICLINE TARTRATE 0.5 MG TAB PO SCH (09:57)
[2018-05-18] MEDS: amLODIPine BESYLATE 2.5 MG TABLET (FP) PO SCH (09:57)
[2018-05-18] MEDS: SODIUM CHLORIDE 1,000 ML IV SCH (13:30)
--- NOTE | 2018-05-18 16:50 | PN ---
Teaching Attending Note Name of Resident: Uvaldo Alba ATTENDING PHYSICIAN STATEMENT I saw and evaluated the patient. I reviewed the resident's note and discussed the case with the resident. I agree with the resident's findings and plan as documented. SUBJECTIVE: Patient complains of weakness. OBJECTIVE: Vital Signs Period Temp Pulse Resp BP Sys/Bills Pulse Ox Last 24 Hr 97.8 F-99 F 101-107 18-20 146-158/72-92 92-96 HEART: S1S2, tachycardic LUNGS: Bilateral rhonchi ABDOMEN: Soft, non-tender, non-distended, normal BS EXTREMITIES: No edema Laboratory Results - last 24 hr 05/18/18 05/18/18 05:30 05:30 WBC 11.3 H RBC 2.82 L Hgb 8.6 L Hct 25.6 L MCV 91.0 MCH 30.4 MCHC 33.4 RDW 17.2 H Plt Count 210 MPV 9.0 Absolute Neuts (auto) 9.1 H Neutrophils % 80.7 Lymphocytes % 10.0 Monocytes % 5.7 Eosinophils % 3.5 D Basophils % 0.1 Nucleated RBC % 0 Sodium 136 Potassium 3.9 Chloride 99 Carbon Dioxide 26 Anion Gap 11 BUN 85 H Creatinine 4.1 H Creat Clearance w eGFR 11.06 Random Glucose 82 Calcium 8.0 L Magnesium 1.7 L Current Medications Generic Name Dose Route Start Last Admin Trade Name Freq PRN Reason Stop Dose Admin Albuterol Sulfate 2 puff 05/13/18 15:38 Ventolin Hfa Inhaler - IH Q4H PRN SHORT OF BREATH/WHEEZING Albuterol/Ipratropium 1 amp 05/18/18 20:00 Duoneb - NEB RQID JACKY Amlodipine Besylate 2.5 mg 05/14/18 10:00 05/18/18 09:57 Norvasc - PO 2.5 mg DAILY JACKY Administration Atorvastatin Calcium 10 mg 05/14/18 22:00 05/17/18 21:48 Lipitor - PO 10 mg HS JACKY Administration Budesonide/Formoterol Fumarate 2 puff 05/16/18 10:00 05/18/18 09:57 Symbicort 160/4.5mcg - IH 2 puff BID JACKY Administration Calcium Acetate 1,334 mg 05/14/18 12:00 05/18/18 13:29 Phoslo - PO 1,334 mg TIDCM JACKY Administration Duloxetine HCl 30 mg 05/14/18 10:00 05/18/18 09:56 Cymbalta - PO 30 mg DAILY JACKY Administration Gabapentin 300 mg 05/13/18 22:00 05/18/18 13:30 Neurontin - PO 300 mg TID JACKY Administration Guaifenesin/Codeine Phosphate 5 ml 05/13/18 15:38 05/17/18 21:49 Robitussin Ac - PO 5 ml TID PRN Administration COUGH Heparin Sodium (Porcine) 5,000 unit 05/13/18 22:00 05/18/18 13:30 Heparin - SQ 5,000 unit TID JACKY Administration Sodium Chloride 1,000 mls @ 42 mls/hr 05/13/18 14:00 05/18/18 13:30 Normal Saline - IV Not Given ASDIR JACKY Melatonin 5 mg 05/13/18 15:38 05/17/18 21:48 Melatonin PO 5 mg HS PRN Administration INSOMNIA Methocarbamol 500 mg 05/13/18 15:38 Robaxin - PO BID PRN MUSCLE SPASMS Oxycodone HCl 5 mg 05/13/18 15:38 05/18/18 13:29 Roxicodone - PO 5 mg Q6H PRN Administration PAIN LEVEL 6-10 Varenicline 0.5 mg 05/14/18 10:00 05/18/18 09:57 Chantix - PO 0.5 mg DAILY JACKY Administration ASSESSMENT AND PLAN: This is a 63 year old woman with a history of chronic hypoxic respiratory failure, COPD, chronic diastolic heart failure, HTN, hyperlipidemia, hypothyroidism, ESRD, GERD, depression, anxiety, iron deficiency anemia, peripheral neuropathy, ovarian cancer, chronic back pain who presented to the ED after falling from bed twice. 1. s/p fall with trauma to head, face, neck, and right shoulder - MRI of brain shows moderate atrophy; moderate to marked chronic periventricular microvascular ischemic changes; likely chronic hemorrhagic lacunar infarcts in left basal ganglia and medial left occipital lobe 2. Possible steroid myopathy - Prednisone has been discontinued - Continue physical therapy 3. Possible acute toxic metabolic encephalopathy secondary to sepsis and UTI - Urine culture growing VRE and Staph epi, thought to be contaminants - Patient was recently treated with vancomycin for MRSA abscess of right axilla - TSH was normal on 05/09, but low now; B12 and ammonia are normal; RPR is non -reactive 4. Chronic hypoxic respiratory failure secondary to COPD - Continue DuoNeb, albuterol as needed - Completed course of Prednisone - Continue oxygen to maintain saturation >90% 5. Chronic diastolic heart failure - No evidence of acute heart failure 6. HTN - Continue Norvasc 7. Hyperlipidemia - Continue Lipitor 8. Hypothyroidism - TSH was normal (1.65 on 05/09/18) and low (0.22 today) - On no medication - Would recheck TFTs as outpatient after she has been off steroids 9. ESRD - HD as per nephrology 10. Hyperphosphatemia - Continue PhosLo 11. GERD 12. Depression with anxiety and psychosis - Continue Cymbalta 13. Anemia secondary to iron deficiency and CKD 14. Peripheral neuropathy - Continue Neurontin 15. Chronic back pain - Continue Neurontin, Cymbalta, Lidoderm patch, oxycodone as needed 16. Nicotine dependence - Continue Chantix 17. Disposition - Continue PT - ambulated 25 feet with close contact guard of 2 yesterday - Short term rehab recommended, but she has been refusing
[2018-05-18] MEDS: ATORVASTATIN CA 10 MG TABLET (FP) PO SCH (22:52)
[2018-05-18] MEDS: MELATONIN 5 MG TABLETS PO PRN (22:52)
[2018-05-18] MEDS: guaiFENesin/CODEINE 5 ML UNIT-DOSE CUPS PO PRN (22:53)
[2018-05-19] MEDS: oxyCODONE HCL 5 MG TABLET PO PRN ×4 (02:29→20:12)
[2018-05-19] MEDS: GABAPENTIN 300 MG CAPSULE (FP) PO SCH ×3 (05:23→21:11)
[2018-05-19] MEDS: guaiFENesin/CODEINE 5 ML UNIT-DOSE CUPS PO PRN (05:23)
[2018-05-19] MEDS: HEPARIN NA (PORCINE) 5,000 UNITS/ML 1ML VIAL SQ SCH ×3 (05:23→21:11)
[2018-05-19 06:42] LABS: HEMATOCRIT 24.4 % (32.4-45.2); HEMOGLOBIN 8.2 GM/dL (10.7-15.3); MCH 30.7 pg (25.7-33.7); MCHC 33.8 g/dl (32.0-36.0); MEAN CELL VOLUME 90.7 fl (80-96); MEAN PLT VOLUME 8.7 fl (7.5-11.1); PLATELET COUNT 209 K/MM3 (134-434); RBC 2.69 M/mm3 (3.60-5.2); RDW 17.3 % (11.6-15.6); WHITE BLOOD COUNT 10.9 K/mm3 (4.0-10.0)
[2018-05-19] MEDS: ALBUTEROL SO4 2.5/IPRATROPIUM 0.5 INH SOL 3 ML VIAL.NEB. NEB SCH ×4 (07:15→20:53)
[2018-05-19 07:36] LABS: ANION GAP 14 MMOL/L (8-16); BLOOD UREA NITROGEN 101 mg/dL (7-18); CHLORIDE 99 mmol/L (98-107); CO2 23 mmol/L (21-32); CREATININE 4.7 mg/dL (0.55-1.3); GLUCOSE,RANDOM 84 mg/dL (74-106); MAGNESIUM 1.7 mg/dL (1.8-2.4); PHOSPHOROUS 5.9 mg/dL (2.5-4.9); POTASSIUM 4.1 mmol/L (3.5-5.1); SODIUM 136 mmol/L (136-145)
[2018-05-19] MEDS: CALCIUM ACETATE 667 MG CAPSULE (FP) PO SCH ×3 (08:09→18:08)
[2018-05-19] MEDS ORDERED: MAGNESIUM SULF 50% (8.12 MEQ/2 ML-1 GM VIAL) IVPB ONE (08:28)
--- NOTE | 2018-05-19 08:32 | PN ---
Teaching Attending Note Name of Resident: Uvaldo Alba ATTENDING PHYSICIAN STATEMENT I saw and evaluated the patient. I reviewed the resident's note and discussed the case with the resident. I agree with the resident's findings and plan as documented. SUBJECTIVE: Patient c/o cough , SOB OBJECTIVE: Vital Signs Period Temp Pulse Resp BP Sys/Bills Pulse Ox Last 24 Hr 97.8 F-98.6 F 93-105 18-19 132-158/74-92 92-94 Middle aged sick looking F c/o chest congestion and expectoration HEENT: Mm moist, mild anemia, PERRLA EOMI NECK:No JVd No Bruit CHEST: Er Basal crepts diffuse wheezs CVS: S1S2 R no m/g/r ABD: Obese, non tender Bs + EXT: Trace leila afeet, no calf tenderness, Pulses + [employer]: AOx3 non focal. LAB: CBC, BMP 05/19/18 05:30 05/19/18 05:30 ASSESSMENT AND PLAN:63 year old woman with a history of chronic hypoxic respiratory failure, COPD, chronic diastolic heart failure, HTN, hyperlipidemia , hypothyroidism, ESRD, GERD, depression, anxiety, iron deficiency anemia, peripheral neuropathy, ovarian cancer, chronic back pain who presented to the ED after falling from bed twice. MEDS: Active Medications Albuterol Sulfate (Ventolin Hfa Inhaler -) 2 puff IH Q4H PRN PRN Reason: SHORT OF BREATH/WHEEZING Albuterol/Ipratropium (Duoneb -) 1 amp NEB RQID [facility] Last Admin: 05/19/18 07:15 Dose: 1 amp Amlodipine Besylate (Norvasc -) 2.5 mg PO DAILY [facility] Last Admin: 05/18/18 09:57 Dose: 2.5 mg Atorvastatin Calcium (Lipitor -) 10 mg PO HS [facility] Last Admin: 05/18/18 22:52 Dose: 10 mg Budesonide/Formoterol Fumarate (Symbicort 160/4.5mcg -) 2 puff IH BID [facility] Last Admin: 05/18/18 22:53 Dose: 2 puff Calcium Acetate (Phoslo -) 1,334 mg PO TIDCM [facility] Last Admin: 05/19/18 08:09 Dose: 1,334 mg Duloxetine HCl (Cymbalta -) 30 mg PO DAILY [facility] Last Admin: 05/18/18 09:56 Dose: 30 mg Gabapentin (Neurontin -) 300 mg PO TID [facility] Last Admin: 05/19/18 05:23 Dose: 300 mg Guaifenesin/Codeine Phosphate (Robitussin Ac -) 5 ml PO TID PRN PRN Reason: COUGH Last Admin: 05/19/18 05:23 Dose: 5 ml Heparin Sodium (Porcine) (Heparin -) 5,000 unit SQ TID [facility] Last Admin: 05/19/18 05:23 Dose: 5,000 unit Magnesium Sulfate (Magnesium Sulfate) 2 gm IVPB ONCE ONE Stop: 05/19/18 08:29 Melatonin (Melatonin) 5 mg PO HS PRN PRN Reason: INSOMNIA Last Admin: 05/18/18 22:52 Dose: 5 mg Methocarbamol (Robaxin -) 500 mg PO BID PRN PRN Reason: MUSCLE SPASMS Oxycodone HCl (Roxicodone -) 5 mg PO Q6H PRN PRN Reason: PAIN LEVEL 6-10 Last Admin: 05/19/18 08:09 Dose: 5 mg Varenicline (Chantix -) 0.5 mg PO DAILY [facility] Last Admin: 05/18/18 09:57 Dose: 0.5 mg PLan; Patient chest is congested Rt Ll signs +, rpt CXR after HD if + consider HCAP coverage aand ID input Juhi discuss with [facility] service and confirm Home O2 arrangement before DC Rest cont current management.
[2018-05-19] MEDS ORDERED: PT OWN MED DRAWER 7, Y5N ONE ×2 (09:24→21:07)
[2018-05-19] MEDS ORDERED: EPOETIN ALFA 10,000 UNIT/1 ML VIAL IVPUSH ONE (09:45)
[2018-05-19] MEDS: amLODIPine BESYLATE 2.5 MG TABLET (FP) PO SCH (13:56)
[2018-05-19] MEDS: DULoxetine HCL 30 MG CAPSULE.DR (FP) PO SCH (13:56)
[2018-05-19] MEDS: VARENICLINE TARTRATE 0.5 MG TAB PO SCH (13:57)
[2018-05-19] MEDS: BUDESONIDE/FORMETEROL FUMARATE 160/4.5 mcg INHALER IH SCH ×2 (13:58→21:20)
[2018-05-19] MEDS ORDERED: MAGNESIUM SULF 50% (8.12 MEQ/2 ML-1 GM VIAL) ONE (15:25)
--- NOTE | 2018-05-19 16:26 | PN ---
Physical Exam: SUBJECTIVE: Patient seen and examined this AM. Pt states she is in pain all over. States she cannot go home until she gets portable O2 at home. Discussed with patient and telephonic case manager present that patient has been informed in the past how to go about process of receiving and that patient has home O2 already in place at home. OBJECTIVE: Vital Signs Period Temp Pulse Resp BP Sys/Bills Pulse Ox Last 24 Hr 98.4 F-98.6 F 90-100 18-19 128-158/70-88 93-98 GENERAL: A&O, no acute distress, anxious on exam HEAD: Normocephalic, atraumatic. EARS, NOSE, THROAT: oropharynx clear without exudates. Moist mucous membranes. LUNGS: course breath sounds and wheezes throughout, examined previously during sleeping and breath sounds greatly improved from when awake HEART: Regular rate and rhythm, normal S1 and S2 without murmur ABDOMEN: Soft, nontender to palpation, normoactive bowel sounds MUSCULOSKELETAL: Tenderness to palpation somewhat diffusely according to patient. worst in right shoulder and upper arm. Decreased ROM right shoulder limited due to pain. PSYCHIATRIC: Very anxious and tearful on exam, has a pacifier hanging around her neck Laboratory Results - last 24 hr 05/19/18 05/19/18 05:30 05:30 WBC 10.9 H RBC 2.69 L Hgb 8.2 L Hct 24.4 L MCV 90.7 MCH 30.7 MCHC 33.8 RDW 17.3 H Plt Count 209 MPV 8.7 Sodium 136 Potassium 4.1 Chloride 99 Carbon Dioxide 23 Anion Gap 14 BUN 101 H Creatinine 4.7 H Creat Clearance w eGFR 9.45 Random Glucose 84 Calcium 8.0 L Phosphorus 5.9 H Magnesium 1.7 L Active Medications Generic Name Dose Route Start Last Admin Trade Name Freq PRN Reason Stop Dose Admin Albuterol Sulfate 2 puff 05/13/18 15:38 Ventolin Hfa Inhaler - IH Q4H PRN SHORT OF BREATH/WHEEZING Albuterol/Ipratropium 1 amp 05/18/18 20:00 05/19/18 16:16 Duoneb - NEB 1 amp RQID JACKY Administration Amlodipine Besylate 2.5 mg 05/14/18 10:00 05/19/18 13:56 Norvasc - PO 2.5 mg DAILY JACKY Administration Atorvastatin Calcium 10 mg 05/14/18 22:00 05/18/18 22:52 Lipitor - PO 10 mg HS JACKY Administration Budesonide/Formoterol Fumarate 2 puff 05/16/18 10:00 05/19/18 13:58 Symbicort 160/4.5mcg - IH 2 puff BID JACKY Administration Calcium Acetate 1,334 mg 05/14/18 12:00 05/19/18 12:00 Phoslo - PO Not Given TIDCM JACKY Duloxetine HCl 30 mg 05/14/18 10:00 05/19/18 13:56 Cymbalta - PO 30 mg DAILY JACKY Administration Gabapentin 300 mg 05/13/18 22:00 05/19/18 13:56 Neurontin - PO 300 mg TID JACKY Administration Guaifenesin/Codeine Phosphate 5 ml 05/13/18 15:38 05/19/18 05:23 Robitussin Ac - PO 5 ml TID PRN Administration COUGH Heparin Sodium (Porcine) 5,000 unit 05/13/18 22:00 05/19/18 14:12 Heparin - SQ Not Given TID JACKY Melatonin 5 mg 05/13/18 15:38 05/18/18 22:52 Melatonin PO 5 mg HS PRN Administration INSOMNIA Methocarbamol 500 mg 05/13/18 15:38 Robaxin - PO BID PRN MUSCLE SPASMS Oxycodone HCl 5 mg 05/13/18 15:38 05/19/18 13:57 Roxicodone - PO 5 mg Q6H PRN Administration PAIN LEVEL 6-10 Varenicline 0.5 mg 05/14/18 10:00 05/19/18 13:57 Chantix - PO 0.5 mg DAILY JACKY Administration ASSESSMENT/PLAN: 63 year old female with history of chronic hypoxic respiratory failure sec to COPD, chronic diastolic heart failure, HTN, hyperlipidemia, hypothyroidism, ESRD , GERD, depression, anxiety, peripheral neuropathy, ovarian cancer, chronic back pain admitted with complaint of SOB and cough, and missed dialysis. UTI -Urine cultures positive with VRE and Staph epi -ID consult appreciated, likely contaminate/colonizer in pt with ESRD -Monitor of Abx for now Mechanical falls, r/o CVA vs TIA -CT head noted with Left internal capsule hypodense region concerning for infarct -Neurology consult appreciated -MRI without any concerns for acute ischemic changes -CTA neck without any hemodynamically significant pathology -Awaiting Physical Therapy eval for dc planning -Pt could possibly require short term inpatient rehab facility Acute on Chronic Respiratory Failure likely secondary to acute COPD exacerbation - resolved from previous admission -On 3L home O2 -Symbicort -DuoNebs RQID Depression/Anxiety -Cymbalta 30 mg PO Daily -Pt could benefit greatly from outpatient psych follow up -Seen by psych here, continue cymbalta and neurontin Chronic Diastolic Heart Failure -Stable, not in acute signs of volume overload HTN -Norvasc 2.5 mg PO Daily HLD -Lipitor 10 mg PO HS ESRD -HD on ,,S -Nephrology Consult appreciated -HD as per nephrology -Monitor electrolytes GERD -Protonix 40 mg PO Daily Anemia -Likely secondary to ESRD -H/H stable DVT Prophylaxis -Heparin 5000 units SQ TID FEN -Fluids: None -Electrolytes: Monitor and replete cuatiously with ESRD, phoslo as per nephrology, BMP in AM -Nutrition: Renal Diet Disposition D/C tele, stable for discharge pending PT eval and recs/placement vs home Visit type - Emergency Visit Emergency Visit: Yes ED Registration Date: 05/15/18 Care time: The patient presented to the Emergency Department on the above date and was hospitalized for further evaluation of their emergent condition. - New Patient This patient is new to me today: No - Critical Care Critical Care patient: No
--- NOTE | 2018-05-19 16:41 | PN ---
Progress Note, Physician History of Present Illness: Pt seen and examined at bedside. She tolerated HD today. - Current Medication List Current Medications: Active Medications Albuterol Sulfate (Ventolin Hfa Inhaler -) 2 puff IH Q4H PRN PRN Reason: SHORT OF BREATH/WHEEZING Albuterol/Ipratropium (Duoneb -) 1 amp NEB RQID [facility] Last Admin: 05/19/18 16:16 Dose: 1 amp Amlodipine Besylate (Norvasc -) 2.5 mg PO DAILY [facility] Last Admin: 05/19/18 13:56 Dose: 2.5 mg Atorvastatin Calcium (Lipitor -) 10 mg PO HS [facility] Last Admin: 05/18/18 22:52 Dose: 10 mg Budesonide/Formoterol Fumarate (Symbicort 160/4.5mcg -) 2 puff IH BID [facility] Last Admin: 05/19/18 13:58 Dose: 2 puff Calcium Acetate (Phoslo -) 1,334 mg PO TIDCM [facility] Last Admin: 05/19/18 12:00 Dose: Not Given Duloxetine HCl (Cymbalta -) 30 mg PO DAILY [facility] Last Admin: 05/19/18 13:56 Dose: 30 mg Gabapentin (Neurontin -) 300 mg PO TID [facility] Last Admin: 05/19/18 13:56 Dose: 300 mg Guaifenesin/Codeine Phosphate (Robitussin Ac -) 5 ml PO TID PRN PRN Reason: COUGH Last Admin: 05/19/18 05:23 Dose: 5 ml Heparin Sodium (Porcine) (Heparin -) 5,000 unit SQ TID [facility] Last Admin: 05/19/18 14:12 Dose: Not Given Melatonin (Melatonin) 5 mg PO HS PRN PRN Reason: INSOMNIA Last Admin: 05/18/18 22:52 Dose: 5 mg Methocarbamol (Robaxin -) 500 mg PO BID PRN PRN Reason: MUSCLE SPASMS Oxycodone HCl (Roxicodone -) 5 mg PO Q6H PRN PRN Reason: PAIN LEVEL 6-10 Last Admin: 05/19/18 13:57 Dose: 5 mg Varenicline (Chantix -) 0.5 mg PO DAILY [facility] Last Admin: 05/19/18 13:57 Dose: 0.5 mg - Objective Vital Signs: Vital Signs Temperature 98.4 F 05/19/18 14:05 Pulse Rate 92 H 05/19/18 14:05 Respiratory Rate 18 05/19/18 14:05 Blood Pressure 145/80 05/19/18 14:05 O2 Sat by Pulse Oximetry (%) 98 05/19/18 10:00 Constitutional: Yes: Anxious Eyes: Yes: Conjunctiva Clear Cardiovascular: Yes: S1, S2 Respiratory: Yes: CTA Bilaterally Gastrointestinal: Yes: Normal Bowel Sounds, Soft Genitourinary: Yes: WNL Musculoskeletal: Yes: WNL Edema: No Neurological: Yes: Oriented Psychiatric: Yes: Oriented Labs: CBC, BMP 05/19/18 05:30 05/19/18 05:30 INR, PTT INR 1.08 (0.83-1.09) 05/13/18 16:30 Problem List - Problems (1) ESRD (end stage renal disease) on dialysis Code(s): N18.6 - END STAGE RENAL DISEASE; Z99.2 - DEPENDENCE ON RENAL DIALYSIS Assessment/Plan Current Medications Generic Name Dose Route Start Last Admin Trade Name Freq PRN Reason Stop Dose Admin Albuterol Sulfate 2 puff 05/13/18 15:38 Ventolin Hfa Inhaler - IH Q4H PRN SHORT OF BREATH/WHEEZING Albuterol/Ipratropium 1 amp 05/18/18 20:00 05/19/18 16:16 Duoneb - NEB 1 amp RQID JACKY Administration Amlodipine Besylate 2.5 mg 05/14/18 10:00 05/19/18 13:56 Norvasc - PO 2.5 mg DAILY JACKY Administration Atorvastatin Calcium 10 mg 05/14/18 22:00 05/18/18 22:52 Lipitor - PO 10 mg HS JACKY Administration Budesonide/Formoterol Fumarate 2 puff 05/16/18 10:00 05/19/18 13:58 Symbicort 160/4.5mcg - IH 2 puff BID JACKY Administration Calcium Acetate 1,334 mg 05/14/18 12:00 05/19/18 12:00 Phoslo - PO Not Given TIDCM JACKY Duloxetine HCl 30 mg 05/14/18 10:00 05/19/18 13:56 Cymbalta - PO 30 mg DAILY JACKY Administration Gabapentin 300 mg 05/13/18 22:00 05/19/18 13:56 Neurontin - PO 300 mg TID JACKY Administration Guaifenesin/Codeine Phosphate 5 ml 05/13/18 15:38 05/19/18 05:23 Robitussin Ac - PO 5 ml TID PRN Administration COUGH Heparin Sodium (Porcine) 5,000 unit 05/13/18 22:00 05/19/18 14:12 Heparin - SQ Not Given TID JACKY Melatonin 5 mg 05/13/18 15:38 05/18/18 22:52 Melatonin PO 5 mg HS PRN Administration INSOMNIA Methocarbamol 500 mg 05/13/18 15:38 Robaxin - PO BID PRN MUSCLE SPASMS Oxycodone HCl 5 mg 05/13/18 15:38 05/19/18 13:57 Roxicodone - PO 5 mg Q6H PRN Administration PAIN LEVEL 6-10 Varenicline 0.5 mg 05/14/18 10:00 05/19/18 13:57 Chantix - PO 0.5 mg DAILY JACKY Administration Impression 1. ESRD 2. s/p fall 3. chronic back pain 4. anemia 5. anxiety 6. hx of nsaid use 7. chf diastolic 8. possible complex renal cyst 9. HLD 10. nephrolithiasis 11. copd 12. left internal capsule infarct Plan - pt tolerated HD today - behavior remains a problem - she is refusing rehab - cont phoslo
[2018-05-19] MEDS: ATORVASTATIN CA 10 MG TABLET (FP) PO SCH (21:11)
[2018-05-19] MEDS: METHOCARBAMOL 500 MG TABLET PO PRN (21:12)
[2018-05-19] MEDS: MELATONIN 5 MG TABLETS PO PRN (22:40)
[2018-05-20] MEDS: oxyCODONE HCL 5 MG TABLET PO PRN ×3 (02:11→13:58)
[2018-05-20] MEDS: GABAPENTIN 300 MG CAPSULE (FP) PO SCH ×2 (06:04→14:19)
[2018-05-20] MEDS: HEPARIN NA (PORCINE) 5,000 UNITS/ML 1ML VIAL SQ SCH ×2 (06:04→14:20)
[2018-05-20] MEDS: CALCIUM ACETATE 667 MG CAPSULE (FP) PO SCH ×3 (08:26→18:30)
[2018-05-20] MEDS: ALBUTEROL SO4 2.5/IPRATROPIUM 0.5 INH SOL 3 ML VIAL.NEB. NEB SCH ×3 (09:11→15:55)
[2018-05-20] MEDS: BUDESONIDE/FORMETEROL FUMARATE 160/4.5 mcg INHALER IH SCH (10:00)
[2018-05-20] MEDS: METHOCARBAMOL 500 MG TABLET PO PRN ×2 (10:55→14:00)
[2018-05-20] MEDS: DULoxetine HCL 30 MG CAPSULE.DR (FP) PO SCH (10:55)
[2018-05-20] MEDS: amLODIPine BESYLATE 2.5 MG TABLET (FP) PO SCH (10:55)
[2018-05-20] MEDS: VARENICLINE TARTRATE 0.5 MG TAB PO SCH (11:00)
[2018-05-20] MEDS ORDERED: SODIUM CHLORIDE 250 ML IV PRN (12:07)
--- NOTE | 2018-05-20 12:07 | DS ---
Physical Exam: SUBJECTIVE: Patient seen and examined this AM. She agrees to short term rehab placement. OBJECTIVE: Vital Signs Period Temp Pulse Resp BP Sys/Bills Pulse Ox Last 24 Hr 98.1 F-98.6 F 90-108 18-18 118-145/53-80 98-98 PHYSICAL EXAM GENERAL: A&O, no acute distress, anxious on exam HEAD: Normocephalic, atraumatic. EARS, NOSE, THROAT: oropharynx clear without exudates. Moist mucous membranes. LUNGS: course breath sounds and wheezes throughout, examined previously during sleeping and breath sounds greatly improved from when awake HEART: Regular rate and rhythm, normal S1 and S2 without murmur ABDOMEN: Soft, nontender to palpation, normoactive bowel sounds MUSCULOSKELETAL: Tenderness to palpation somewhat diffusely according to patient. worst in right shoulder and upper arm. Decreased ROM right shoulder limited due to pain. PSYCHIATRIC: Very anxious and tearful on exam, has a pacifier hanging around her neck LABS HOSPITAL COURSE: Date of Admission:05/15/18 Date of Discharge: 05/20/18 HPI on Admission: 63yo F with extensive past medical history including ESRD (T/T/S), COPD (3LNC home), MDD, and anxiety who presents today s/p mechanical falls. Pt reports falling twice today while trying to get out of bed. Normally she is wheelchair bound, but is able to transport (as reported by her). Today she fell and hit her face, head, neck and R shoulder. She reports after the first fall her son picked her up and placed her back to bed and then she promptly fell again. Pt denies any LOC or incontinence. Of note, pt's history is very scattered and will endorse most ROS. Pt does not increased R shoulder pain and a change of LLE proximal sensation changes which are different from her prior admission/discharge about 2 days ago. During her prior admission she was diagnosed with COPD exacerbation and was discharged on a prednisone pulse dose (40mg qDaily for 6 days) and Zithromax (2 more doses). She reports completing her regiment, however the pt's story is unreliable towards taking her prednisone. Hospital Course: CT head was performed which revealed a hypodense region in the Left internal capsule. She was seen by Neurology who recommended MRI which revealed only chronic changes. Neuro also recommended discontinuation of steroids which could have contributed to her tremor and possibly her fall. She was seen by physical therapy who recommended short term rehab placement. She requires continued use of her 3 L home O2 Minutes to complete discharge: 35 Discharge Summary Reason For Visit: CVA Current Active Problems ESRD (end stage renal disease) on dialysis (Acute) Fall (Acute) Stroke (Acute) Condition: Stable - Instructions Diet, Activity, Other Instructions: You were admitted following multiple falls. Numerous imaging studies were performed which were all negative for any acute fractures or bleeding. The CT scan of your head was concerning for a possible stroke, so you were seen by a neurologist who recommended an MRI study of the brain. The MRI did not show any findings concerning for a new stroke. At this point you are medically safe for discharge to go home. You should continue all of your home medications as they are prescribed. You should follow up with your primary doctor within one week of discharge. You should follow up with pulmonology this week as you have not yet followed up since recent discharge. You should follow up with a neurologist within 2 weeks of discharge from the hospital. You could benefit from regular follow up with a psychiatrist as an outpatient in the office. If you have any new onset weakness, difficulty breathing or any other concerning symptoms, you should follow up with your primary doctor in the office or return to the emergency department. Referrals: Jean Paul León MD [Staff Physician] - Josr Cowan MD [Staff Physician] - Rocio Marie MD [Staff Physician] - - Home Medications Comprehensive Discharge Medication List: Ambulatory Orders Ibuprofen [Motrin -] 400 mg PO QID PRN #28 tablet 02/23/18 Methocarbamol [Robaxin -] 500 mg PO BID PRN #14 tablet 02/23/18 Lidocaine 5% Patch [Lidoderm -] 1 patch TP DAILY #7 patch 03/02/18 Albuterol 2.5/Ipratropium 0.5 [Duoneb -] 1 amp NEB Q6H PRN amp 03/14/18 Albuterol Sulfate Inhaler - [Ventolin HFA Inhaler -] 2 puff IH QID PRN 04/26/18 Guaifenesin AC [Robitussin AC -] 5 ml PO TID PRN #60 liquid MDD 15 ml 04/29/18 Melatonin 5 mg PO HS PRN tab 04/29/18 Atorvastatin Ca [Lipitor] 10 mg PO DAILY 05/05/18 Duloxetine HCl [Cymbalta] 30 mg PO DAILY 05/05/18 Gabapentin [Neurontin -] 300 mg PO TID 05/05/18 Nicotine [Nicotine Patch 14mg/24 hr] 1 each TD DAILY #30 patch.td24 05/05/18 Amlodipine Besylate [Norvasc -] 2.5 mg PO DAILY #15 tablet 05/06/18 Budesonide/Formeterol Fumarate [SYMBICORT 160/4.5mcg -] 2 puff IH BID #1 inhaler 05/06/18 Varenicline Tartrate [Chantix -] 0.5 mg PO DAILY #30 tab 05/06/18 oxyCODONE HCL [Roxicodone -] 5 mg PO Q6H PRN #20 tablet MDD 4 05/06/18 Albuterol 2.5/Ipratropium 0.5 [Duoneb -] 1 amp NEB RQID 14 Days #56 amp Nebulizer [Aeroneb Go Nebulizer] 1 each MC 1XPACU 1 Days #1 each 05/11/18 This patient is new to me today: No Emergency Visit: Yes ED Registration Date: 05/15/18 Care time: The patient presented to the Emergency Department on the above date and was hospitalized for further evaluation of their emergent condition. Critical Care patient: No - Discharge Referral Referred to [facility] No
--- NOTE | 2018-05-20 12:07 | PN ---
Progress Note, Physician History of Present Illness: Pt seen and examined at bedside. She is awake and alert. She agrees to go to a rehab center with on site HD. - Current Medication List Current Medications: Active Medications Albuterol Sulfate (Ventolin Hfa Inhaler -) 2 puff IH Q4H PRN PRN Reason: SHORT OF BREATH/WHEEZING Albuterol/Ipratropium (Duoneb -) 1 amp NEB RQID [facility] Last Admin: 05/20/18 11:46 Dose: 1 amp Amlodipine Besylate (Norvasc -) 2.5 mg PO DAILY [facility] Last Admin: 05/20/18 10:55 Dose: 2.5 mg Atorvastatin Calcium (Lipitor -) 10 mg PO HS [facility] Last Admin: 05/19/18 21:11 Dose: 10 mg Budesonide/Formoterol Fumarate (Symbicort 160/4.5mcg -) 2 puff IH BID [facility] Last Admin: 05/19/18 21:20 Dose: 2 puff Calcium Acetate (Phoslo -) 1,334 mg PO TIDCM [facility] Last Admin: 05/20/18 08:26 Dose: 1,334 mg Duloxetine HCl (Cymbalta -) 30 mg PO DAILY [facility] Last Admin: 05/20/18 10:55 Dose: 30 mg Gabapentin (Neurontin -) 300 mg PO TID [facility] Last Admin: 05/20/18 06:04 Dose: 300 mg Guaifenesin/Codeine Phosphate (Robitussin Ac -) 5 ml PO TID PRN PRN Reason: COUGH Last Admin: 05/19/18 05:23 Dose: 5 ml Heparin Sodium (Porcine) (Heparin -) 5,000 unit SQ TID [facility] Last Admin: 05/20/18 06:04 Dose: 5,000 unit Melatonin (Melatonin) 5 mg PO HS PRN PRN Reason: INSOMNIA Last Admin: 05/19/18 22:40 Dose: 5 mg Methocarbamol (Robaxin -) 500 mg PO BID PRN PRN Reason: MUSCLE SPASMS Last Admin: 05/20/18 10:55 Dose: 500 mg Oxycodone HCl (Roxicodone -) 5 mg PO Q6H PRN PRN Reason: PAIN LEVEL 6-10 Last Admin: 05/20/18 08:26 Dose: 5 mg Varenicline (Chantix -) 0.5 mg PO DAILY [facility] Last Admin: 05/19/18 13:57 Dose: 0.5 mg - Objective Vital Signs: Vital Signs Temperature 98.1 F 05/20/18 06:09 Pulse Rate 101 H 05/20/18 06:09 Respiratory Rate 18 05/20/18 06:09 Blood Pressure 142/53 L 05/20/18 06:09 O2 Sat by Pulse Oximetry (%) 98 05/19/18 22:00 Constitutional: Yes: Calm Eyes: Yes: Conjunctiva Clear HENT: Yes: Atraumatic Cardiovascular: Yes: S1, S2 Respiratory: Yes: Wheezes Gastrointestinal: Yes: Soft Genitourinary: Yes: WNL Musculoskeletal: Yes: WNL Edema: No Neurological: Yes: Oriented Labs: CBC, BMP 05/19/18 05:30 05/19/18 05:30 INR, PTT INR 1.08 (0.83-1.09) 05/13/18 16:30 Problem List - Problems (1) ESRD (end stage renal disease) on dialysis Code(s): N18.6 - END STAGE RENAL DISEASE; Z99.2 - DEPENDENCE ON RENAL DIALYSIS Assessment/Plan Current Medications Generic Name Dose Route Start Last Admin Trade Name Freq PRN Reason Stop Dose Admin Albuterol Sulfate 2 puff 05/13/18 15:38 Ventolin Hfa Inhaler - IH Q4H PRN SHORT OF BREATH/WHEEZING Albuterol/Ipratropium 1 amp 05/18/18 20:00 05/20/18 11:46 Duoneb - NEB 1 amp RQID JACKY Administration Amlodipine Besylate 2.5 mg 05/14/18 10:00 05/20/18 10:55 Norvasc - PO 2.5 mg DAILY JACKY Administration Atorvastatin Calcium 10 mg 05/14/18 22:00 05/19/18 21:11 Lipitor - PO 10 mg HS JACKY Administration Budesonide/Formoterol Fumarate 2 puff 05/16/18 10:00 05/19/18 21:20 Symbicort 160/4.5mcg - IH 2 puff BID JACKY Administration Calcium Acetate 1,334 mg 05/14/18 12:00 05/20/18 08:26 Phoslo - PO 1,334 mg TIDCM JACKY Administration Duloxetine HCl 30 mg 05/14/18 10:00 05/20/18 10:55 Cymbalta - PO 30 mg DAILY JACKY Administration Gabapentin 300 mg 05/13/18 22:00 05/20/18 06:04 Neurontin - PO 300 mg TID JACKY Administration Guaifenesin/Codeine Phosphate 5 ml 05/13/18 15:38 05/19/18 05:23 Robitussin Ac - PO 5 ml TID PRN Administration COUGH Heparin Sodium (Porcine) 5,000 unit 05/13/18 22:00 05/20/18 06:04 Heparin - SQ 5,000 unit TID JACKY Administration Melatonin 5 mg 05/13/18 15:38 05/19/18 22:40 Melatonin PO 5 mg HS PRN Administration INSOMNIA Methocarbamol 500 mg 05/13/18 15:38 05/20/18 10:55 Robaxin - PO 500 mg BID PRN Administration MUSCLE SPASMS Oxycodone HCl 5 mg 05/13/18 15:38 05/20/18 08:26 Roxicodone - PO 5 mg Q6H PRN Administration PAIN LEVEL 6-10 Varenicline 0.5 mg 05/14/18 10:00 05/19/18 13:57 Chantix - PO 0.5 mg DAILY JACKY Administration Impression 1. ESRD 2. s/p fall 3. chronic back pain 4. anemia 5. anxiety 6. hx of nsaid use 7. chf diastolic 8. possible complex renal cyst 9. HLD 10. nephrolithiasis 11. copd 12. left internal capsule infarct Plan - will arrange for HD tomorrow - pt agrees to go to rehab with onsite HD - renal diet - cont phoslo, phos improving - discussed with medical team
--- NOTE | 2018-05-20 13:56 | PN ---
Teaching Attending Note Name of Resident: Uvaldo Alba ATTENDING PHYSICIAN STATEMENT I saw and evaluated the patient. I reviewed the resident's note and discussed the case with the resident. I agree with the resident's findings and plan as documented. SUBJECTIVE: Feels okay - no SOB. Complains of Left thigh pain since her fall OBJECTIVE: Afebrile, Hemodynamically Stable. Last Vital Signs Temp Pulse Resp BP Pulse Ox 98.1 F 101 H 18 142/53 L 98 05/20/18 06:09 05/20/18 06:09 05/20/18 06:09 05/20/18 06:09 05/20/18 10:00 HEENT - Atraumatic, Normocephalic. Heart - S1, S2, RRR Lungs - bibasal crackles, no wheeze. Abdomen - Soft, non-tender. Bowel Sounds normal. Extremities - No calf tenderness. Neuro - AAOx 3. Tone/Power normal. Current Medications Generic Name Dose Route Start Last Admin Trade Name Freq PRN Reason Stop Dose Admin Albuterol Sulfate 2 puff 05/13/18 15:38 Ventolin Hfa Inhaler - IH Q4H PRN SHORT OF BREATH/WHEEZING Albuterol/Ipratropium 1 amp 05/18/18 20:00 05/20/18 11:46 Duoneb - NEB 1 amp RQID JACKY Administration Amlodipine Besylate 2.5 mg 05/14/18 10:00 05/20/18 10:55 Norvasc - PO 2.5 mg DAILY JACKY Administration Atorvastatin Calcium 10 mg 05/14/18 22:00 05/19/18 21:11 Lipitor - PO 10 mg HS JACKY Administration Budesonide/Formoterol Fumarate 2 puff 05/16/18 10:00 05/19/18 21:20 Symbicort 160/4.5mcg - IH 2 puff BID JACKY Administration Calcium Acetate 1,334 mg 05/14/18 12:00 05/20/18 08:26 Phoslo - PO 1,334 mg TIDCM JACKY Administration Duloxetine HCl 30 mg 05/14/18 10:00 05/20/18 10:55 Cymbalta - PO 30 mg DAILY JACKY Administration Epoetin Zachery 10,000 unit 05/21/18 12:07 Procrit - IVPUSH 05/21/18 12:08 ONCE ONE Gabapentin 300 mg 05/13/18 22:00 05/20/18 06:04 Neurontin - PO 300 mg TID JACKY Administration Guaifenesin/Codeine Phosphate 5 ml 05/13/18 15:38 05/19/18 05:23 Robitussin Ac - PO 5 ml TID PRN Administration COUGH Heparin Sodium (Porcine) 5,000 unit 05/13/18 22:00 05/20/18 06:04 Heparin - SQ 5,000 unit TID JACKY Administration Heparin Sodium (Porcine) 1,000 unit 05/21/18 12:07 Heparin - IVPUSH 05/21/18 12:08 ONCE ONE Sodium Chloride 250 mls @ 3,000 mls/hr 05/20/18 12:07 Normal Saline - IV 05/21/18 12:08 PRN PRN Hypotension during Dialysis Melatonin 5 mg 05/13/18 15:38 05/19/18 22:40 Melatonin PO 5 mg HS PRN Administration INSOMNIA Methocarbamol 500 mg 05/13/18 15:38 05/20/18 10:55 Robaxin - PO 500 mg BID PRN Administration MUSCLE SPASMS Oxycodone HCl 5 mg 05/13/18 15:38 05/20/18 08:26 Roxicodone - PO 5 mg Q6H PRN Administration PAIN LEVEL 6-10 Varenicline 0.5 mg 05/14/18 10:00 05/19/18 13:57 Chantix - PO 0.5 mg DAILY JACKY Administration ASSESSMENT/PLAN 63 year old female with history of chronic hypoxic respiratory failure sec to COPD, chronic diastolic heart failure, HTN, hyperlipidemia, hypothyroidism, ESRD , GERD, depression, anxiety, iron deficiency anemia, peripheral neuropathy, ovarian cancer, chronic back pain, recent admission for COPDE who re-presented after having falls at home. 1. Ambulatory Dysfunction/Falls Unclear etiology Weakness sec to ?Steroid myopathy Has been off steroids for 5 days with no adverse effect. Patient has agreed for [facility] for ongoing Rehab - will await CM. VRE in Urine - thought to be colonizer - not treated with Abx. 2. Chronic Respiratory Failure sec to Acute Exacerbation of COPD Doing well off steroid - no sign of COPD exac or adrenal insufficiency. Continue Symbicort, DuoNeb prn Continue supplemental O2 at 2L via NC. For Pulmonary appt soon as patient has recurrent admissions for COPD exac. 3. Elevated troponin on last admission, likely demand ischemia TnI max 0.09 ?reduced renal clearance vs demand ischemia. Never had chest pain. Cardiology follow up as an out-patient. 4. Chronic diastolic heart failure - no evidence of acute decompensation. 5. HTN - Continue Norvasc, HCTZ 6. Anxiety/Depression - Psych recommends continuing Cymbalta and Neurontin. 7. Hyperlipidemia - Continue Lipitor 8. Hypothyroidism reported Not on medications - TSH 1.6 on previous admission, currently 0.22. Free T4 awaited - for out-patient follow up. 9. ESRD on HD - to continue on discharge. 10. Anemia secondary to iron deficiency and CKD Epogen with HD as per Nephrology Feritin/Iron Sat low. Will start Ferrous Sulfate For out-patient investigation - GI referral by PCP. 11. Peripheral neuropathy - Continue Neurontin 12. Chronic back pain - Continue Neurontin, Cymbalta, Lidoderm patch, oxycodone as needed 13. Nicotine dependence - Continue Chantix Medically stable for discharge to SNF/Rehab
[2018-05-20] MEDS ORDERED: oxyCODONE HCL 5 MG TABLET PO PRN (14:19)
[2018-05-20 20:45] VITALS: BP 145/76; PULSE 96; TEMP 98
[2018-05-20] MEDS ORDERED: FERROUS SO4 325 MG TABLET (FP) PO SCH (22:00)
[2018-05-21] MEDS ORDERED: EPOETIN ALFA 10,000 UNIT/1 ML VIAL IVPUSH ONE (12:07)
[2018-05-21] MEDS ORDERED: HEPARIN NA (PORCINE) 5,000 UNITS/ML 1ML VIAL IVPUSH ONE (12:07)
== END 2018-05-20 18:55 | DRG 720 ==
LOC: JER 08:19 → JERFT 08:19 → JERBED 14:50 → UNDOADMOB 14:50 → INTOOBSV 14:50 → JERBED 15:33 → J4W 20:39 → JERBED 20:39 → OBSVTOIN 05-15 13:44
PROVIDERS: ADMIT Internal Medicine
PROC: 5A1D70Z Performance of Urinary Filtration, Intermittent, Less than 6 Hours Per Day (ICD-10-PCS; principal; 2018-05-19)
DX: A41.89 Other specified sepsis (principal); N39.0 Urinary tract infection, site not specified; I50.32 Chronic diastolic (congestive) heart failure; I13.2 Hypertensive heart and chronic kidney disease with heart failure and with stage 5 chronic kidney disease, or end stage renal disease; N18.6 End stage renal disease; E78.5 Hyperlipidemia, unspecified; E03.9 Hypothyroidism, unspecified; J96.11 Chronic respiratory failure with hypoxia; G93.41 Metabolic encephalopathy; G72.0 Drug-induced myopathy; F41.8 Other specified anxiety disorders; D50.9 Iron deficiency anemia, unspecified; D63.1 Anemia in chronic kidney disease; G62.9 Polyneuropathy, unspecified; M54.9 Dorsalgia, unspecified; K21.9 Gastro-esophageal reflux disease without esophagitis; Z99.2 Dependence on renal dialysis; J44.9 Chronic obstructive pulmonary disease, unspecified; E83.39 Other disorders of phosphorus metabolism
CPT/HCPCS: 36415; 70450-TC; 70486-TC; 70551-TC; 71045-TC-FY; 72125-TC; 72128-TC; 72131-TC; 72192-TC; 73030-TC-RT-FY; 80048; 80053; 81003; 81015; 82140; 82465; 82607; 82728; 82803; 83540; 83550; 83605; 83718; 83721; 83735; 84100; 84439; 84443; 84466; 84478; 84481; 84484; 85025; 85027; 85044; 85610; 85651; 85730; 86140; 86593; 86850; 86900; 86901; 87040; 87086; 87186; 93005; 93010; 94640; 97116-GP; 97161-GP; 99285-25; G0378; J0131; J0885; J1644; J7030

== ENCOUNTER → 2018-06-08 | Emergency (ER) | payer OTHER | END | disposition left against medical advice (07) | LOC: JER 04:34 | DX: Z53.8 Procedure and treatment not carried out for other reasons (principal) ==

== ENCOUNTER 2018-06-26 15:13 | Observation (INO) | payer OTHER ==
[2018-06-26] MEDS ORDERED: ACETAMINOPHEN 1000 MG/100 ML VIAL (NON FORMULARY) IVPB ONE (15:52)
--- NOTE | 2018-06-26 16:08 | PDOC ---
Attending Attestation - HPI HPI: 06/26/18 17:49 The patient is a 63 year old female with ESRD, CHF, HTN, HLD, COPD (on 3L O2), Asthma, Anemia, and chronic back pain presents to the ER with back pain. Patient denies any recent falls. Patient denies pain anywhere else. Patient denies any paresthesis, bladder or bowel incontinence. Patient states she has been noncompliant to her dialysis for at least past week. Patient has also ran out of her medications a few weeks ago. Patient denies any numbness/tingling/weakness, chest pain, shortness of breath, abdominal pain, N/V/D, fever, chills, dysuria, hematuria, or frequency. Allergies: levofloxacin Surgeries: None reported Social: Denies toxic habits. - Physicial Exam PE: 06/26/18 18:20 ADULT PHYSICAL EXAM Constitutional: Awake, alert, oriented. No acute distress. Cardiovascular: Regular rate. Regular rhythm. S1, S2 regular. Distal pulses are 2+ and symmetric. Pulmonary/Chest: No evidence of respiratory distress. Clear to auscultation bilaterally No wheezing, rales or rhonchi. Abdominal: Soft and non-distended. There is no tenderness. No rebound, guarding or rigidity. No organomegaly. No palpable masses. Good bowel sounds. Musculoskeletal: No edema. Full range of motion in all extremities. No calf tenderness. Radial/pedal pulses are intact and 2+ bilaterally Back: No midline, C, T, or L tenderness. (+) Paraspinal tenderness throughout. No paresthesias. Skin: Skin is warm and dry. No petechiae. No purpura. Neurological: Alert and oriented to person, place, and time. Cranial nerves II -XII are grossly intact. Normal speech. Strength is grossly symmetric. No sensory deficits. Psychiatric: Good eye contact. Normal interaction, affect and behavior. <Dara Leon - Last Filed: 06/26/18 18:20> - Resident Resident Name: Vee Rascon - ED Attending Attestation I have performed the following: I have examined & evaluated the patient, The case was reviewed & discussed with the resident, I agree w/resident's findings & plan, Exceptions are as noted - Medical Decision Making 06/26/18 16:08 I, Dr. Jennifer No, DO, attest that this document has been prepared under my direction and personally reviewed by me in its entirety. I further attest, that it accurately reflects all work, treatment, procedures and medical decision -making performed by me. 06/26/18 17:46 a/p: 63yo female with chronic back pain -pt states ran out of her meds for the last few weeks -states she also has not gone to HD for the last week -pt denies f/c, no cp/sob, no abd pain. no n/v/d. denies dysuria -states her back hurts, no paresthesias, no radiation of the pain. -pt denies falls or new injury -pt with FROM of the back, able to sit up in the bed and lean forward, able to ambulate -will send labs given pt missed hd, will obtain xrays of thoracic and lumbar spine -will medicate for pain -ekg -ua -will monitor and reassess 06/26/18 19:17 pt with UTI vre in prior culture sensitive to amp/sulbactam 06/26/18 20:[address] Engel who accepts pt to service <Jennifer No - Last Filed: 06/26/18 20:29> Heart Score/ECG Review - ECG Intrepretation Comment:: 06/26/18 17:45 sinus at 76, nl axis, q waves septally that are age indeterminate, no acute st/ t wave findings <Jennifer No - Last Filed: 06/26/18 20:29>
--- NOTE | 2018-06-26 16:33 | PDOC ---
History of Present Illness - General Chief Complaint: Weakness Stated Complaint: SICK Time Seen by Provider: 06/26/18 15:37 History Source: Patient Exam Limitations: Other (Pt appears to be altered) - History of Present Illness Initial Comments: 06/26/18 16:02 Pt is a 63yo F with PMH of ESRD on HD (T,Th,S?), CHF, HTN, HLD, COPD (on 3L O2) , Asthma, Anemia, Chronic Back Pain presenting to ED for back pain and generalized weakness. Pt states the pain is in her lower back where it normally is. States nothing helps her. She had been going to pain management stopped going (could not explain why). Pt is denying numbness/tingling, unilateral weakness, chest pain, sob, abdominal pain, n/v/d, urinary symptoms, urinary incontinence, bowel incontinence, bloody stools, fevers, chills, sore throat. She states the last time she went to dialysis was sometime last week. PMD: Cynthia? PMH: see hpi PSH: hip replacement Meds: see med rec Allergies: levaquin Past History - Past Medical History Allergies/Adverse Reactions: Allergies Allergy/AdvReac Type Severity Reaction Status Date / Time levofloxacin [From Levaquin] Allergy Mild Itching Verified 06/26/18 15:35 Home Medications: Ambulatory Orders Methocarbamol [Robaxin -] 500 mg PO BID PRN #14 tablet 02/23/18 Albuterol 2.5/Ipratropium 0.5 [Duoneb -] 1 amp NEB Q6H PRN amp 03/14/18 Albuterol Sulfate Inhaler - [Ventolin HFA Inhaler -] 2 puff IH QID PRN 04/26/18 Melatonin 5 mg PO HS PRN tab 04/29/18 Atorvastatin Ca [Lipitor] 10 mg PO DAILY 05/05/18 Duloxetine HCl [Cymbalta] 30 mg PO DAILY 05/05/18 Gabapentin [Neurontin -] 200 mg PO ASDIR 05/05/18 Nicotine [Nicotine Patch 14mg/24 hr] 1 each TD DAILY #30 patch.td24 05/05/18 Amlodipine Besylate [Norvasc -] 2.5 mg PO DAILY #15 tablet 05/06/18 Budesonide/Formeterol Fumarate [SYMBICORT 160/4.5mcg -] 2 puff IH BID #1 inhaler 05/06/18 Varenicline Tartrate [Chantix -] 0.5 mg PO DAILY #30 tab 05/06/18 Codeine Phosphate/Guaifenesin [Virtussin AC Liquid] 5 ml PO TID PRN 06/26/18 Docusate Sodium [Colace] 100 mg PO DAILY 06/26/18 Furosemide [Lasix] 20 mg PO DAILY 06/26/18 Lidocaine 4% Topical [Xylocaine 4% Topical] 1 applic MM DAILY 06/26/18 Mag Hydrox/Al Hydrox/Simeth [Mylanta Oral Suspension -] 30 ml PO PRN 06/26/18 Oxycodone HCl/Acetaminophen [Percocet 5-325 mg Tablet] 1 tab PO Q8H PRN Anemia: Yes Asthma: Yes Cancer: No Cardiac Disorders: Yes CVA: No COPD: Yes CHF: No DVT: No Dementia: No Diabetes: No Dialysis: Yes GI Disorders: Yes (bleeding ulcer) Disorders: Yes (KIDNEY STONE;) HTN: Yes Hypercholesterolemia: Yes Kidney Stones: Yes Liver Disease: No Psychiatric Problems: Yes (ANXIETY, DEPRESSION) Seizures: No Thyroid Disease: Yes (hypothyroid) Other medical history: Rt arm AV Shunt - Surgical History Abdominal Surgery: No Appendectomy: No Cardiac Surgery: No Cholecystectomy: No Lung Surgery: No Neurologic Surgery: No Orthopedic Surgery: Yes (B/L hip replacement (rt 2009; left 2012)) - Immunization History Td Vaccination: Yes TDAP Vaccination: No Immunization Up to Date: Yes - Suicide/Smoking/Psychosocial Hx Smoking Status: Yes Smoking History: Former smoker Years of Tobacco Use: 30 Have you smoked in the past 12 months: No Number of Cigarettes Smoked Daily: 6 If you are a former smoker, when did you quit?: refused booklet 07/21/14 Cigars Per Day: 0 Information on smoking cessation initiated: No 'Breaking Loose' booklet given: 03/08/18 Hx Alcohol Use: No Drug/Substance Use Hx: No Substance Use Type: None Hx Substance Use Treatment: Yes Review of Systems - Review of Systems Constitutional: No: Chills, Fever HEENTM: No: Symptoms Reported Respiratory: No: Cough, Shortness of Breath, Hemoptysis Cardiac (ROS): No: Chest Pain, Lightheadedness, Palpitations, Syncope ABD/GI: No: Constipated, Diarrhea, Nausea, Rectal Bleeding, Vomiting, Abdominal cramping : No: Burning, Dysuria, Discharge Musculoskeletal: Yes: Back Pain. No: Joint Pain, Muscle Pain Neurological: No: Headache, Numbness, Tingling, Tremors *Physical Exam - Vital Signs Last Vital Signs Temp Pulse Resp BP Pulse Ox 97.5 F L 77 17 157/85 96 06/26/18 15:29 06/26/18 15:29 06/26/18 15:29 06/26/18 15:29 06/26/18 15:29 - Physical Exam General Appearance: Yes: Nourished, Appropriately Dressed, Mild Distress HEENT: positive: EOMI, TEO. negative: Pale Conjunctivae, Scleral Icterus (R), Scleral Icterus (L) Neck: positive: Trachea midline, Supple. negative: Lymphadenopathy (R), Lymphadenopathy (L) Respiratory/Chest: positive: Lungs Clear, Normal Breath Sounds. negative: Crackles, Rales, Rhonchi, Stridor, Wheezing Cardiovascular: positive: Regular Rhythm, Regular Rate, S1, S2. negative: Edema , JVD, Murmur Vascular Pulses: Carotid (R): 2+, Carotid (L): 2+, Dorsalis-Pedis (R): 2+, Doralis-Pedis (L): 2+ Gastrointestinal/Abdominal: positive: Normal Bowel Sounds, Tender (diffuse tenderness), Soft. negative: Distended, Mass, Hepatomegaly Musculoskeletal: positive: Muscle Spasm. negative: CVA Tenderness Extremity: positive: Normal Capillary Refill, Normal Inspection, Normal Range of Motion, Pelvis Stable. 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 NML intact, Fully Oriented (AOx2), Alert, Normal Mood/Affect, Normal Response, Motor Strength 5/5 Moderate Sedation - Procedure Monitoring Vital Signs: Procedure Monitoring Vital Signs Temperature 97.5 F L 06/26/18 15:29 Pulse Rate 77 06/26/18 15:29 Respiratory Rate 17 06/26/18 15:29 Blood Pressure 157/85 06/26/18 15:29 O2 Sat by Pulse Oximetry (%) 96 06/26/18 15:29 ED Treatment Course - LABORATORY CBC & Chemistry Diagram: 06/26/18 16:20 06/26/18 16:20 - RADIOLOGY Radiology Studies Ordered: Category Date Time Status ABDOMEN & PELVIS CT W/O CONTR [CT] Stat CT Scan 06/26/18 15:49 Ordered Medical Decision Making - Medical Decision Making 06/26/18 16:34 Pt is a 63yo F with PMH of ESRD on HD (T,Th,S?), CHF, HTN, HLD, COPD (on 3L O2) , Asthma, Anemia, Chronic Back Pain presenting to ED for back pain and generalized weakness. Pt states the pain is in her lower back where it normally is. States nothing helps her. She had been going to pain management stopped going (could not explain why). Pt is denying numbness/tingling, unilateral weakness, chest pain, sob, abdominal pain, n/v/d, urinary symptoms, urinary incontinence, bowel incontinence, bloody stools, fevers, chills, sore throat. She states the last time she went to dialysis was sometime last week. Vitals: wnl, afebrile PE: diffuse abdominal tenderness, R lower back tenderness. normal strength. AOx1. Has pacifier in mouth Ddx includes but not limited to: electrolyte abnormality, colitis, mesenteric ischemia, pyelonephritis, uti, metabolic derrangements -low suspicions for cord compression given chronicity of pain, no saddle anesthesia, no recent injuries, no bowel/bladder incontinence. Most likely chronic back pain. More concerned about pt missing dialysis and diffuse abdominal tenderness -cbc, cmp, lactate, lipase, cardiac prof, coags -ekg, CTAP -IV Tylenol 06/27/18 00:[address] No's exam, pt not tender. I reexamined, not tender. CTAP cancelled. -robaxin, cymbalta, neurontin, lidoderm patch. Labs wnl. No white count, electrolytes wnl. UA positive for UTi. pt found to have UTI. rocephin ordered. Previous cultures show susceptibility to Unasyn/ Ampicillin. Will give Unasyn. Pt admitted for UTI and chronic back pain. Spoke to Dr. Coe who is familiar with pt. Will see her for dialysis. 06/27/18 00:54 *DC/Admit/Observation/Transfer Diagnosis at time of Disposition: Muscle spasm of back, Missed dialysis UTI (urinary tract infection) Qualifiers: Urinary tract infection type: site unspecified Hematuria presence: with hematuria Qualified Code(s): N39.0 - Urinary tract infection, site not specified - Discharge Dispostion Condition at time of disposition: Good Decision to Admit order: Yes - Referrals - Patient Instructions - Post Discharge Activity
[2018-06-26 16:43] LABS: BASO % 1.5 % (0-2.0); EOS % 5.8 % (0-4.5); HEMOGLOBIN 9.3 GM/dL (10.7-15.3); LYMPH % 19.8 % (8-40); MCH 29.8 pg (25.7-33.7); MCHC 33.2 g/dl (32.0-36.0); MEAN CELL VOLUME 89.7 fl (80-96); MEAN PLT VOLUME 7.5 fl (7.5-11.1); MONO % 6.9 % (3.8-10.2); PLATELET COUNT 392 K/MM3 (134-434); RBC 3.12 M/mm3 (3.60-5.2); RDW 17.1 % (11.6-15.6); WHITE BLOOD COUNT 7.6 K/mm3 (4.0-10.0)
[2018-06-26] MEDS ORDERED: ACETAMINOPHEN INJECTION 100 ML IVPB ONE (16:54)
[2018-06-26 17:03] LABS: INR 1.15 (0.83-1.09); PROTHROMBIN TIME (PATIENT) 13.6 SEC (9.7-13.0)
[2018-06-26] MEDS ORDERED: METHOCARBAMOL 500 MG TABLET PO ONE (17:17)
[2018-06-26 17:21] LABS: ALBUMIN 3.2 g/dl (3.4-5.0); ALK PHOS 297 U/L (45-117); ANION GAP 14 MMOL/L (8-16); BILIRUBIN,TOTAL 0.4 mg/dL (0.2-1); BLOOD UREA NITROGEN 81 mg/dL (7-18); CALCIUM 8.9 mg/dL (8.5-10.1); CHLORIDE 102 mmol/L (98-107); CO2 18 mmol/L (21-32); CREATININE 6.8 mg/dL (0.55-1.3); GLUCOSE,RANDOM 94 mg/dL (74-106); MAGNESIUM 2.6 mg/dL (1.8-2.4); SGOT/AST 7 U/L (15-37); SGPT/ALT 8 U/L (13-61); SODIUM 134 mmol/L (136-145); TOT PROT 6.7 g/dl (6.4-8.2)
[2018-06-26 17:34] LABS: URINE APPEARANCE SLCLOUDY; URINE BILIRUBIN NEGATIVE (<2.0 mg/dL); URINE COLOR STRAW; URINE GLUCOSE (UA) 2+ (NEGATIVE); URINE KETONE NEGATIVE (NEGATIVE); URINE LEUK ESTERASE 2+ (NEGATIVE); URINE NITRITE NEGATIVE (NEGATIVE); URINE PROTEIN 3+ (NEGATIVE); URINE UROBILINOGEN NEGATIVE mg/dL (0.2-1.0)
[2018-06-26] MEDS ORDERED: LIDOCAINE 5% TOPICAL PATCH TP ONE (17:44)
[2018-06-26] MEDS ORDERED: GABAPENTIN 100 MG CAPSULE (FP) PO ONE (17:44)
[2018-06-26] MEDS ORDERED: METHOCARBAMOL 500 MG TABLET ONE (17:44)
[2018-06-26] MEDS ORDERED: DULoxetine HCL 30 MG CAPSULE.DR (FP) PO ONE ×2 (17:44→17:57)
[2018-06-26 17:52] LABS: EPI CELLS FEW /HPF (FEW); URINE BACTERIA RARE /hpf (NONE SEEN)
[2018-06-26] MEDS ORDERED: GABAPENTIN 100 MG CAPSULE (FP) ONE (17:56)
[2018-06-26] MEDS ORDERED: LIDOCAINE 5% TOPICAL PATCH ONE (17:57)
[2018-06-26] MEDS ORDERED: CEFTRIAXONE 1 GM in DEXTROSE 5%-WATER - 100 ML IVPB ONE (18:58)
[2018-06-26] MEDS ORDERED: CEFTRIAXONE 1 GM/50 ML BAG ONE (19:11)
[2018-06-26] MEDS ORDERED: AMPICILLIN NA/SULBACTAM NA 3 GM in SODIUM CHLORIDE 100 ML IVPB ONE (19:18)
--- NOTE | 2018-06-26 21:12 | PN ---
Teaching Attending Note Name of Resident: Elly Babb ATTENDING PHYSICIAN STATEMENT I saw and evaluated the patient. I reviewed the resident's note and discussed the case with the resident. I agree with the resident's findings and plan as documented. SUBJECTIVE: Seen and examined; please refer to resident note for further historical information. Briefly, she presents to the ER for worsening lower back pain, running out of her home meds 'weeks ago' and missing HD for the past week ( though she was at [facility] rehab). On 3L at baseline but satting well here on RA. Her electrolytes are wnl. She is not appearing fluid overloaded. There was concern she had UTI; review of her chart shows that she was seen by Dr. Benton recently for concern of VRE in her urine-was NOT treated as he was concerned that it represented contamination. At the time trace +LE and 10 WBC; now has 15 WBC and 2+LE but is completely asx with no white count, no fever. Her back pain in chronic and not related to UTIs. She is a very poor historian and insists that she has been without meds or dialysis for weeks at [facility] and tells me that she refuses to go back there. Her button sewer was contacted by the ER. We will consult ID to see her in the morning; appreciate their expert input. AVF intact. 10 sys ROS done and negative aside from HPI PMH, PSH, Family hx, Social hx reviewed Medication list reviewed; pending reconciliation OBJECTIVE: VS, labs, imaging reviewed NAD, AAO, resting comfortably in bed NC AT EOMI PERRLA RRR s1/2 no mgr Lungs CTAB, w/ sym exp NT ND +BS CN2-12 wnl, no fnd Normal mood, appropriate behavior ASSESSMENT AND PLAN: Patient presents with acute on chronic lower back pain and concern for UTI; she is afebrile and hemodynamically stable without any WBC elevation. To be seen by her button sewer and ID specialist 1) Acute on Chronic Back Pain -No red flag symptoms, just hurts more than usual. Has been there for some time which makes relation to the concern for UTI much less likely. -PRN management and continue home meds; obtain PT evaluation. There was no recent injury. Would be inclined to purusue imaging as outpatient. When I saw her she was resting comfortably in bed with her pacifier. 2) ?UTI -Given unasyn by the ER; will hold off on further abx as: 1) afebrile 2) no wbc 3) stable hemodynamics 4) UA very similar to the time that ID did not wish to treat her and 5) completely asx. We will defer further abx to Dr. Benton given overall clinical stability. etc. Followup culture. 3) ESRD -Monitor QD BMP; defer management to nephrology service. she states she missed HD for one week; normal electrolytes and doesn't appear fluid overloaded. 4) Overall Deconditioning; hx Ambulatory Dysfunction/Falls Unclear etiology; denies improving greatly at rehab and refuses to go back to [facility] and had issues with other rehabs given her hx tobacco abuse; there was concern last admission that VRE in Urine could be causing this but thought to be colonizer - not treated with Abx. -Overall, her clinical picture is that of someone at extreme risk for readmissions who presents with difficulty with placement. Involve CM, SW. 5) Chronic Respiratory Failure sec to Acute Exacerbation of COPD -No exacerbation. Continue Symbicort, DuoNeb prn. Continue supplemental O2 at 2L via NC. -Needs OP PFTs and close OP followup with pulmonary; has seen Dr. León 6) Chronic diastolic heart failure -Currently no evidence of acute decompensation. 7) HTN -Continue Norvasc, HCTZ 8) Anxiety/Depression -On last admit Psych recommends continuing Cymbalta and Neurontin. 9) Hyperlipidemia -Continue Lipitor 10) Hypothyroidism reported Not on medications - TSH 1.6 on previous admission, then was 0.22. Free T4 wnl 11) Chronic Anemia 2/2 iron deficiency and CKD Epogen with HD as per Nephrology, continue Ferrous Sulfate -Dy Yousef recommended OP GI referral on DC last time; she should ensure this is scheduled when she leaves 12) Peripheral neuropathy/Chronic back pain -Continue Neurontin, Cymbalta, Lidoderm patch, oxycodone as needed 13) Nicotine dependence -Continue Chantix, NRT
--- NOTE | 2018-06-26 21:15 | HP ---
CHIEF COMPLAINT: back pain PCP: None HISTORY OF PRESENT ILLNESS: 52F w/ PMHx ESRD, CHF, HTN, HLD, COPD, asthma, anemia, chronic low back pain, VRE in urine that was not treated, [facility] with bilateral low back pain of two days duration which she has not taken anything for. She says she has missed one week of dialysis (Sat//Sat ) schedule- she did not give reason as to why, and has been non-compliant with her medications for "weeks" due to running out. She says she lives at home in an apartment with her son, she ambulates with a cane due to balance difficulty. Today she complains of back pain which she localizes to her low back bilaterally , pain in legs, constipation. She denies chest pain, SOB, diarrhea, dysuria, hematuria, frequency, abdominal pain. Pt was admitted for U/A positive for WBC 2 + LE, 15 WBC, ER course was notable for: (1) VS stable, Na 134, BUN/Cr 81/6.8, Mag 2.6, AST/ALT 7/8, Alk P 297 (2) Unasyn 3gm IVPB, Rocephin 1gm given, Neurontin 200mg, Cymbalta 30, Lidoderm patch (3) Recent Travel: Denies PAST MEDICAL HISTORY: ESRD CHF HTN HLD COPD Asthma Chronic low back pain Hx of VRE UTI PAST SURGICAL HISTORY: B/l hip replacements Social History: Smokin pack year smoking history Alcohol: Denies Drugs: Denies Family History: Denies Allergies levofloxacin [From Levaquin] Allergy (Mild, Verified 06/26/18 15:35) Itching HOME MEDICATIONS: Home Medications Medication Instructions Recorded Methocarbamol [Robaxin -] 500 mg PO BID PRN #14 tablet 02/23/18 Albuterol 2.5/Ipratropium 0.5 1 amp NEB Q6H PRN amp 03/14/18 [Duoneb -] Albuterol Sulfate Inhaler - 2 puff IH QID PRN 04/26/18 [Ventolin HFA Inhaler -] Melatonin 5 mg PO HS PRN tab 04/29/18 Atorvastatin Ca [Lipitor] 10 mg PO DAILY 05/05/18 Duloxetine HCl [Cymbalta] 30 mg PO DAILY 05/05/18 Gabapentin [Neurontin -] 200 mg PO ASDIR 05/05/18 Nicotine [Nicotine Patch 14mg/24 1 each TD DAILY #30 patch.td24 05/05/18 hr] Amlodipine Besylate [Norvasc -] 2.5 mg PO DAILY #15 tablet 05/06/18 Budesonide/Formeterol Fumarate 2 puff IH BID #1 inhaler 05/06/18 [SYMBICORT 160/4.5mcg -] Varenicline Tartrate [Chantix -] 0.5 mg PO DAILY #30 tab 05/06/18 Codeine Phosphate/Guaifenesin 5 ml PO TID PRN 06/26/18 [Virtussin AC Liquid] Docusate Sodium [Colace] 100 mg PO DAILY 06/26/18 Furosemide [Lasix] 20 mg PO DAILY 06/26/18 Lidocaine 4% Topical [Xylocaine 4% 1 applic MM DAILY 06/26/18 Topical] Mag Hydrox/Al Hydrox/Simeth 30 ml PO PRN 06/26/18 [Mylanta Oral Suspension -] Oxycodone HCl/Acetaminophen 1 tab PO Q8H PRN 06/26/18 [Percocet 5-325 mg Tablet] REVIEW OF SYSTEMS As per HPI PHYSICAL EXAMINATION Vital Signs - 24 hr 06/26/18 06/26/18 15:29 19:23 Temperature 97.5 F L 98.9 F Pulse Rate 77 Pulse Rate [ 84 Right Radial] Respiratory 17 18 Rate Blood Pressure 157/85 Blood Pressure 145/78 [Left Arm] O2 Sat by Pulse 96 96 Oximetry (%) GENERAL: AAOx3. NAD. HEENT: AT/NC. EOMI. TEO. Moist mucus membranes. NECK: Normal range of motion, supple without lymphadenopathy, JVD, or masses. LUNGS: CTA B/L. Mild crackles in R base. Symmetric chest rise. HEART: RRR. Normal, S1 S2. No murmurs noted. ABDOMEN: Soft, NT/ND. Mild TTP b/l upper abdomen, no masses, rebound, guarding. MUSCULOSKELETAL: Normal range of motion at all joints. No bony deformities or tenderness. No CVA tenderness. UPPER EXTREMITIES: 2+ pulses, warm, well-perfused. No cyanosis. No clubbing. No peripheral edema. LOWER EXTREMITIES: 2+ pulses, warm, well-perfused. No calf tenderness. No peripheral edema. NEUROLOGICAL: Normal speech. No focal neurological deficits. Laboratory Results - last 24 hr 06/26/18 06/26/18 06/26/18 16:20 16:20 16:20 WBC 7.6 RBC 3.12 L Hgb 9.3 L Hct 28.0 L MCV 89.7 MCH 29.8 MCHC 33.2 RDW 17.1 H Plt Count 392 D MPV 7.5 D Absolute Neuts (auto) 5.0 Neutrophils % 66.0 Lymphocytes % 19.8 D Monocytes % 6.9 Eosinophils % 5.8 H Basophils % 1.5 D Nucleated RBC % 0 PT with INR INR PTT (Actin FS) 37.7 H Sodium Potassium Chloride Carbon Dioxide Anion Gap BUN Creatinine Creat Clearance w eGFR Random Glucose Lactic Acid Calcium Magnesium Total Bilirubin AST ALT Alkaline Phosphatase Creatine Kinase 31 Troponin I 0.02 Total Protein Albumin Lipase 186 Urine Color Urine Appearance Urine pH Ur Specific [place] Urine Protein Urine Glucose (UA) Urine Ketones Urine Blood Urine Nitrite Urine Bilirubin Urine Urobilinogen Ur Leukocyte Esterase Urine WBC (Auto) Urine RBC (Auto) Ur Epithelial Cells Urine Bacteria 06/26/18 06/26/18 06/26/18 16:20 16:20 16:20 WBC RBC Hgb Hct MCV MCH MCHC RDW Plt Count MPV Absolute Neuts (auto) Neutrophils % Lymphocytes % Monocytes % Eosinophils % Basophils % Nucleated RBC % PT with INR 13.60 H INR 1.15 H PTT (Actin FS) Sodium 134 L Potassium 4.0 Chloride 102 Carbon Dioxide 18 L Anion Gap 14 BUN 81 H Creatinine 6.8 H Creat Clearance w eGFR 6.17 Random Glucose 94 Lactic Acid Calcium 8.9 Magnesium 2.6 H Total Bilirubin 0.4 AST 7 L ALT 8 L Alkaline Phosphatase 297 H Creatine Kinase Troponin I Total Protein 6.7 Albumin 3.2 L Lipase Urine Color Straw Urine Appearance Slcloudy Urine pH 7.0 Ur Specific [place] 1.008 L Urine Protein 3+ H Urine Glucose (UA) 2+ H Urine Ketones Negative Urine Blood Negative Urine Nitrite Negative Urine Bilirubin Negative Urine Urobilinogen Negative Ur Leukocyte Esterase 2+ H Urine WBC (Auto) 15 Urine RBC (Auto) 1 Ur Epithelial Cells Few Urine Bacteria Rare 06/26/18 16:20 WBC RBC Hgb Hct MCV MCH MCHC RDW Plt Count MPV Absolute Neuts (auto) Neutrophils % Lymphocytes % Monocytes % Eosinophils % Basophils % Nucleated RBC % PT with INR INR PTT (Actin FS) Sodium Potassium Chloride Carbon Dioxide Anion Gap BUN Creatinine Creat Clearance w eGFR Random Glucose Lactic Acid 0.7 Calcium Magnesium Total Bilirubin AST ALT Alkaline Phosphatase Creatine Kinase Troponin I Total Protein Albumin Lipase Urine Color Urine Appearance Urine pH Ur Specific [place] Urine Protein Urine Glucose (UA) Urine Ketones Urine Blood Urine Nitrite Urine Bilirubin Urine Urobilinogen Ur Leukocyte Esterase Urine WBC (Auto) Urine RBC (Auto) Ur Epithelial Cells Urine Bacteria CONSULTS: Nephro- Dr. Coe ID- Dr. Benton ASSESSMENT/PLAN: 52F w/ PMHx ESRD, CHF, HTN, HLD, COPD, asthma, anemia, chronic low back pain, VRE in urine that was not treated, presented to the ED from [email or web address] with bilateral low back pain. #Acute on Chronic Back Pain -Well known to have back pain, but no concerning issues found on H&P. -Pain control PRN -PT eval #? UTI -Unasyn given x1 dose in the ED -Pt is currently afebrile, no white count, not complaining of any hematuria, dysuria; likely not acutely infected at this time. During previous admission , UCx showed VRE faecaelis (C/S: Ampicillin, Cipro, Dapto, Levofloxacin, Linezolid, Nitrofurantoin, PCN) -Pt was last seen here and evaluated by ID who recommended pt to be off abx -Will hold off abx for now; consult ID and await recs #ESRD; BUN/Cr 81/6.8 -Pt states she had not been to her HD sessions x1 week. Electrolytes are normal and pt does not appear overloaded at this time. -Nephro consult -Monitor BMP #Chronic CHF w/ preserved EF -no acute exacerbation #Chronic Respiratory Failure Cont home meds: Symbicort, Duonebs PRN #HTN Cont home med: Amlodipine 2.5 PO QD #Anxiety/Depression Cont home meds: Cymbalta 30 QD, Neurontin 200 PO #HLD Cont home med: Atorvastatin 10 PO QD #Hypothyroidism -Not currently on meds #Chronic Anemia 2/2 SATHISH and CKD -Epogen w/ HD per nephrology #Peripheral Neuropathy Cont home meds: Neurontin, Cymbalta, Lidoderm patch, Oxycodone PRN #Prophylaxis -SQH #FEN -PO hydration -recheck lytes in AM -Sodium-controlled diet dispo -admit to med-surg inpt -full code Visit type - Emergency Visit Emergency Visit: Yes ED Registration Date: 06/26/18 Care time: The patient presented to the Emergency Department on the above date and was hospitalized for further evaluation of their emergent condition. - New Patient This patient is new to me today: Yes Date on this admission: 06/27/18 - Critical Care Critical Care patient: No
[2018-06-26] MEDS ORDERED: LIDOCAINE PATCH REMOVAL MC SCH (22:00)
[2018-06-27 02:07] VITALS: BMI 22.3
[2018-06-27] MEDS ORDERED: ALBUTEROL SO4 2.5/IPRATROPIUM 0.5 INH SOL 3 ML VIAL.NEB. NEB PRN (03:21)
[2018-06-27] MEDS ORDERED: ALBUTEROL SO4 8 GM HFA INHALER IH PRN (03:21)
[2018-06-27] MEDS ORDERED: MELATONIN 5 MG TABLETS PO PRN (03:21)
[2018-06-27] MEDS ORDERED: METHOCARBAMOL 500 MG TABLET PO PRN (03:21)
[2018-06-27] MEDS ORDERED: MAG HYDROX/AL HYDROX/SIMETH 30 ML UNIT-DOSE CUP PO SCH (03:30)
[2018-06-27] MEDS ORDERED: GABAPENTIN 300 MG CAPSULE (FP) PO SCH (03:30)
[2018-06-27] MEDS: HEPARIN NA (PORCINE) 5,000 UNITS/ML 1ML VIAL SQ SCH ×2 (05:16→13:00)
[2018-06-27] MEDS ORDERED: MAG HYDROX/AL HYDROX/SIMETH 30 ML UNIT-DOSE CUP PO PRN (05:21)
[2018-06-27 07:17] LABS: BASO % 0.8 % (0-2.0); EOS % 6.4 % (0-4.5); HEMATOCRIT 26.2 % (32.4-45.2); MCH 30.4 pg (25.7-33.7); MCHC 34.2 g/dl (32.0-36.0); MEAN CELL VOLUME 88.8 fl (80-96); MEAN PLT VOLUME 7.4 fl (7.5-11.1); MONO % 8.5 % (3.8-10.2); NEUT % 63.3 % (42.8-82.8); PLATELET COUNT 365 K/MM3 (134-434); RBC 2.95 M/mm3 (3.60-5.2); RDW 17.1 % (11.6-15.6); WHITE BLOOD COUNT 6.8 K/mm3 (4.0-10.0)
[2018-06-27 08:11] LABS: ALBUMIN 3.1 g/dl (3.4-5.0); ALK PHOS 276 U/L (45-117); ANION GAP 14 MMOL/L (8-16); BILIRUBIN,TOTAL 0.6 mg/dL (0.2-1); BLOOD UREA NITROGEN 83 mg/dL (7-18); CALCIUM 8.4 mg/dL (8.5-10.1); CHLORIDE 104 mmol/L (98-107); CO2 18 mmol/L (21-32); CREATININE 6.5 mg/dL (0.55-1.3); GLUCOSE,RANDOM 103 mg/dL (74-106); POTASSIUM 3.7 mmol/L (3.5-5.1); SGOT/AST 8 U/L (15-37); SGPT/ALT 8 U/L (13-61); SODIUM 136 mmol/L (136-145); TOT PROT 6.4 g/dl (6.4-8.2)
[2018-06-27] MEDS ORDERED: LIDOCAINE 2.5%/PRILOCAINE 2.5% (5 Gram/TUBE) TP ONE (09:30)
[2018-06-27] MEDS ORDERED: SODIUM CHLORIDE 250 ML IV PRN (09:35)
[2018-06-27] MEDS ORDERED: EPOETIN ALFA 2,000 UNIT/1 ML VIAL IVPUSH ONE (09:45)
[2018-06-27] MEDS ORDERED: DULoxetine HCL 30 MG CAPSULE.DR (FP) PO SCH (10:00)
[2018-06-27] MEDS ORDERED: BUDESONIDE/FORMETEROL FUMARATE 160/4.5 mcg INHALER IH SCH (10:00)
[2018-06-27] MEDS ORDERED: NICOTINE 14 MG/24 HOURS TOPICAL PATCH TD SCH (10:00)
[2018-06-27] MEDS ORDERED: VARENICLINE TARTRATE 0.5 MG TAB PO SCH (10:00)
[2018-06-27] MEDS ORDERED: amLODIPine BESYLATE 5 MG TABLET (FP) PO SCH (10:00)
[2018-06-27] MEDS ORDERED: DOCUSATE SODIUM 100 MG CAPSULE (FP) PO SCH (10:00)
--- NOTE | 2018-06-27 11:47 | PN ---
Progress Note (short form) - Note Progress Note: ID CONSULT DICTATED HX ASYMPTOMATIC BACTERURIA ESRD OBSERVE OFF ANTIBIOTICS CONTACT PRECAUTIONS
--- NOTE | 2018-06-27 12:21 | CONS ---
DATE OF CONSULTATION: DATE OF DICTATION: 06/27/2018 HISTORY: A 63-year-old female with a history of end-stage renal disease on hemodialysis, history of asymptomatic bacteriuria now evaluated for possible urinary tract infection. She was admitted to the hospital on June 26, 2018 for acute exacerbation of chronic low back pain. She was noted to have 15 white cells in the urine. The patient is awake and responsive. She denies any urinary tract symptoms. She denies any dysuria or hematuria. No complaints of suprapubic or flank pain. No fever or chills. PAST MEDICAL HISTORY: Positive for end-stage renal disease on hemodialysis, congestive heart failure, hypertension, hyperlipidemia, COPD, history of chronic low back pain. ALLERGIES: LEVAQUIN. LABORATORY DATA: White count 6.8, creatinine 6.5. Urinalysis 15 white cells. Previous urine cultures positive for VRE and coagulase-negative staphylococcus. History of MRSA colonization of the respiratory tract. PHYSICAL EXAMINATION: General: She is awake but lethargic. She is seen on hemodialysis. Not acutely toxic appearing in no acute distress. Vital Signs: Stable. Afebrile. HEENT: Sclerae anicteric. Heart: Sounds S1, S2. Lungs: Clear. Abdomen: Soft. No suprapubic or flank tenderness. Extremities: Negative for edema. IMPRESSION: 1. End-stage renal disease on hemodialysis. 2. History of asymptomatic bacteriuria. 3. 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 PLAN: Patient without urinary tract complaints. She is afebrile with a normal white blood cell count. No evidence of systemic infection. Observe off antibiotic therapy. Contact precautions for VRE and MRSA. Thank you for the kind referral. JAKY JOHNSON M.D. [id number]
--- NOTE | 2018-06-27 12:57 | CONSULT ---
Consult Consult Specialty:: Nephrology Reason for Consultation:: ESRD - History of Present Illness Chief Complaint: sent in for missing HD History of Present Illness: Pt is a 63 year old female with pmhx of ESRD, CHF, HTN, HLD, COPD, asthma and anemia who presents to the ER with back pain. SHe has misses several HD sessions. She denies shortness of breath. She denies fevers or chills. She is awake and able to give some history. She also says that she ran out of some of her meds. She denies chest pain or palpitations. 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 No: Pulmonary Embolus, Pulmonary Fibrosis, Sleep Apnea Gastrointestinal: Yes: Gastritis Renal/: Yes: Renal Inusuff, Hemodialysis ...LMP: 07/25/12 ...: No Infectious Disease: Yes: MRSA Psych: Yes: Anxiety, Depression Musculoskeletal: Yes: Chronic low back pain Endocrine: Yes: Hyperthyroidism - Past Surgical History Past Surgical History: Yes: AV Fistula/Graft, Joint Replacement (hip replacement ) - Alcohol/Substance Use Hx Alcohol Use: No History of Substance Use: reports: Marijuana - Smoking History Smoking history: Former smoker Have you smoked in the past 12 months: No Aproximately how many cigarettes per day: 6 If you are a former smoker, when did you quit?: refused booklet 07/21/14 - Social History Usual Living Arrangement: With Child ADL: Independent Occupation: not working, SSI History of Recent Travel: No Home Medications - Allergies Allergies/Adverse Reactions: Allergies Allergy/AdvReac Type Severity Reaction Status Date / Time levofloxacin [From Levaquin] Allergy Mild Itching Verified 06/26/18 15:35 - Home Medications Home Medications: Ambulatory Orders Methocarbamol [Robaxin -] 500 mg PO BID PRN #14 tablet 02/23/18 Albuterol 2.5/Ipratropium 0.5 [Duoneb -] 1 amp NEB Q6H PRN amp 03/14/18 Melatonin 5 mg PO HS PRN tab 04/29/18 Atorvastatin Ca [Lipitor] 10 mg PO DAILY 05/05/18 Duloxetine HCl [Cymbalta] 30 mg PO DAILY 05/05/18 Nicotine [Nicotine Patch 14mg/24 hr] 1 each TD DAILY #30 patch.td24 05/05/18 Amlodipine Besylate [Norvasc -] 2.5 mg PO DAILY #15 tablet 05/06/18 Budesonide/Formeterol Fumarate [SYMBICORT 160/4.5mcg -] 2 puff IH BID #1 inhaler 05/06/18 Varenicline Tartrate [Chantix -] 0.5 mg PO DAILY #30 tab 05/06/18 Docusate Sodium [Colace] 100 mg PO DAILY 06/26/18 Furosemide [Lasix] 20 mg PO DAILY 06/26/18 Mag Hydrox/Al Hydrox/Simeth [Mylanta Oral Suspension -] 30 ml PO PRN 06/26/18 Oxycodone HCl/Acetaminophen [Percocet 5-325 mg Tablet] 1 tab PO Q8H PRN Gabapentin [Neurontin -] 200 mg PO TID 30 Days #90 capsule 06/27/18 Family Disease History - Family Disease History Family Disease History: Other: Father (alive), Mother (alive), Sister (alive), Son (23 yo old - alive - healthy) Review of Systems - Review of Systems Constitutional: reports: Malaise. denies: Chills Eyes: reports: No Symptoms HENT: reports: No Symptoms Neck: reports: No Symptoms Cardiovascular: reports: No Symptoms Respiratory: reports: No Symptoms Gastrointestinal: reports: No Symptoms Genitourinary: reports: No Symptoms Musculoskeletal: reports: Back Pain Integumentary: reports: No Symptoms Neurological: reports: No Symptoms Endocrine: reports: No Symptoms Hematology/Lymphatic: reports: No Symptoms Psychiatric: reports: No Symptoms Physical Exam Vital Signs: Vital Signs Temperature 98.2 F 06/27/18 10:30 Pulse Rate 91 H 06/27/18 12:40 Respiratory Rate 18 06/27/18 12:40 Blood Pressure 136/64 06/27/18 12:40 O2 Sat by Pulse Oximetry (%) 98 06/27/18 05:55 Constitutional: Yes: Anxious Eyes: Yes: Conjunctiva Clear HENT: Yes: Atraumatic Neck: Yes: Supple Cardiovascular: Yes: S1, S2 Respiratory: Yes: CTA Bilaterally Gastrointestinal: Yes: Soft Renal/: Yes: WNL Musculoskeletal: Yes: Back Pain Edema: No Neurological: Yes: Oriented Psychiatric: Yes: Oriented Labs: CBC, BMP 06/27/18 06:45 06/27/18 06:45 Laboratory Tests 05/19/18 05:30 Phosphorus 5.9 H Assessment/Plan Current Medications Generic Name Dose Route Start Last Admin Trade Name Freq PRN Reason Stop Dose Admin Acetaminophen 325 mg 06/27/18 10:12 Tylenol - PO Q4H PRN PAIN Al Hydroxide/Mg Hydroxide 30 ml 06/27/18 05:21 Mylanta Oral Suspension - PO DAILY PRN CONSTIPATION Albuterol/Ipratropium 1 amp 06/27/18 03:21 Duoneb - NEB Q6H PRN SHORTNESS OF BREATH Amlodipine Besylate 2.5 mg 06/27/18 10:00 06/27/18 10:10 Norvasc - PO 2.5 mg DAILY JACKY Administration Atorvastatin Calcium 10 mg 06/27/18 22:00 Lipitor - PO HS JACKY Budesonide/Formoterol Fumarate 2 puff 06/27/18 10:00 06/27/18 10:07 Symbicort 160/4.5mcg - IH 2 inh BID JACKY Administration Docusate Sodium 100 mg 06/27/18 10:00 06/27/18 10:08 Colace - PO 100 mg DAILY JACKY Administration Duloxetine HCl 30 mg 06/27/18 10:00 06/27/18 10:08 Cymbalta - PO 30 mg DAILY JACKY Administration Gabapentin 200 mg 06/27/18 14:00 Neurontin - PO TID JACKY Heparin Sodium (Porcine) 5,000 unit 06/27/18 06:00 06/27/18 05:16 Heparin - SQ 5,000 unit TID JACKY Administration Sodium Chloride 250 mls @ 3,000 mls/hr 06/27/18 09:35 Normal Saline - IV 06/28/18 09:34 PRN PRN Hypotension during Dialysis Protocol Melatonin 5 mg 06/27/18 03:21 06/27/18 05:16 Melatonin PO 5 mg HS PRN Administration INSOMNIA Methocarbamol 500 mg 06/27/18 03:21 Robaxin - PO BID PRN MUSCLE SPASMS Miscellaneous 1 each 06/26/18 22:00 06/26/18 23:01 Lidoderm Patch Removal MC 1 each DAILY@2200 JACKY Administration Nicotine 1 mg 06/27/18 10:00 06/27/18 10:09 Nicoderm Patch - TD 1 mg DAILY JACKY Administration Varenicline 0.5 mg 06/27/18 10:00 Chantix - PO DAILY JACKY Impression 1. ESRD 2. hx CVA 3. chronic back pain 4. anemia 5. anxiety 6. hx of nsaid use 7. chf diastolic 8. possible complex renal cyst 9. HLD 10. nephrolithiasis 11. copd Plan - HD today - renal diet - discussed compliance - has hd set up as outpt
[2018-06-27] MEDS: ACETAMINOPHEN 325 MG TABLET (FP) PO PRN ×2 (12:58→17:17)
[2018-06-27] MEDS ORDERED: GABAPENTIN 100 MG CAPSULE (FP) PO SCH (14:00)
--- NOTE | 2018-06-27 14:25 | EKG ---
Test Reason : Blood Pressure : / mmHG Vent. Rate : 076 BPM Atrial Rate : 076 BPM P-R Int : 192 ms QRS Dur : 088 ms QT Int : 392 ms P-R-T Axes : 063 010 066 degrees QTc Int : 441 ms NORMAL SINUS RHYTHM SEPTAL INFARCT , AGE UNDETERMINED ABNORMAL ECG WHEN COMPARED WITH ECG OF 13-MAY-2018 13:13, PREMATURE ATRIAL COMPLEXES ARE NO LONGER PRESENT Confirmed by JAKY LU MD ([id number]) on 06/27/2018 2:25:03 PM Referred By: Confirmed By:JAKY LU MD
--- NOTE | 2018-06-27 14:58 | PN ---
Teaching Attending Note Name of Resident: Sangita Rae ATTENDING PHYSICIAN STATEMENT I saw and evaluated the patient. I reviewed the resident's note and discussed the case with the resident. I agree with the resident's findings and plan as documented. SUBJECTIVE: No fever or chills. Reports lower back pain that is chronic but increased in intensity . no fall . no weakness, numbness or tingling in LE . has no incontinence . OBJECTIVE: NAD , pacifier in mouth CV : RRR, no MRG Lungs: CTAB Ext : no edema or erythema. strength 5/5 in LE , proximally and distally. sensation to light touch NL. knee jerk 2+ b/l MS: TTP over the whole spine and paraspinal muscles. also over the upper extremities. no erythema or edema is noted over spine A/P : 63 y/o lady with h/o chronic back pain, chronic resp failure, ESRD on HD TTS, HLP, HTN, depression, iron def anemia, peripheral neuropathy, ovarian cancer , COPD , recurrent falls who presented with worsening lower back pain. 1- Lower back pain: chronic . Nl neuro exam, no red flags for infection or cauda equina. has tenderness all over the spine and paraspinal muscles and in proximal extremities. ? fibromyalgia . - increase neurontin to 200 TID ( from 200 daily ) - cont lyrica - tylenol PRN - refer to Dr. Mcneal after dc . - CT of L, T spine reviewed form 05/10. 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 ID concur . even if urine cx is positive , will not treat 3- ESRD: claims she mised Hd while in [facility] x 1 week . can't get details form [facility]. - received HD today - d/w renal, to continue her routine Schedule TTS 4- chronic normocytic anemia: stable at base line 5- hepatitis panel was done on admission. needs to be followed after dc dispo :Dc back to [facility] today
--- NOTE | 2018-06-27 15:58 | DS ---
Physical Exam: SUBJECTIVE: Patient seen and examined at bedside patient states that she is in a lot of pain in her back howver denies any urinary symptoms no numbness/ tingling weakness of the extremities denies any CP/SOB/N.V OBJECTIVE: Vital Signs Period Temp Pulse Resp BP Sys/Bills Pulse Ox Last 24 Hr 97.7 F-98.9 F 78-96 18-20 124-156/62-87 96-98 PHYSICAL EXAM GENERAL: The patient is awake, alert, and fully oriented, in no acute distress. EYES: PEERLA; EOMI; no scleral icterus NECK:no JVD; no lymphadenopathy LUNGS:CTA B/L; no rales, rhonchi or wheezing HEART: Regular rate and rhythm, S1, S2 without murmur, rub or gallop. ABDOMEN: Soft, nontender, nondistended, normoactive bowel sounds, no guarding, no rebound, no hepatosplenomegaly, no masses. EXTREMITIES: 2+ pulses, warm, well-perfused, no edema. PSYCH: Normal mood, normal affect. SKIN: Warm, dry, normal turgor, no rashes or lesions noted. LABS Laboratory Results - last 24 hr 06/26/18 06/26/18 06/26/18 16:20 16:20 16:20 WBC 7.6 RBC 3.12 L Hgb 9.3 L Hct 28.0 L MCV 89.7 MCH 29.8 MCHC 33.2 RDW 17.1 H Plt Count 392 D MPV 7.5 D Absolute Neuts (auto) 5.0 Neutrophils % 66.0 Lymphocytes % 19.8 D Monocytes % 6.9 Eosinophils % 5.8 H Basophils % 1.5 D Nucleated RBC % 0 PT with INR INR PTT (Actin FS) 37.7 H Sodium Potassium Chloride Carbon Dioxide Anion Gap BUN Creatinine Creat Clearance w eGFR Random Glucose Lactic Acid Calcium Magnesium Total Bilirubin AST ALT Alkaline Phosphatase Creatine Kinase 31 Troponin I 0.02 Total Protein Albumin Lipase 186 Urine Color Urine Appearance Urine pH Ur Specific Enigma Urine Protein Urine Glucose (UA) Urine Ketones Urine Blood Urine Nitrite Urine Bilirubin Urine Urobilinogen Ur Leukocyte Esterase Urine WBC (Auto) Urine RBC (Auto) Ur Epithelial Cells Urine Bacteria 06/26/18 06/26/18 06/26/18 16:20 16:20 16:20 WBC RBC Hgb Hct MCV MCH MCHC RDW Plt Count MPV Absolute Neuts (auto) Neutrophils % Lymphocytes % Monocytes % Eosinophils % Basophils % Nucleated RBC % PT with INR 13.60 H INR 1.15 H PTT (Actin FS) Sodium 134 L Potassium 4.0 Chloride 102 Carbon Dioxide 18 L Anion Gap 14 BUN 81 H Creatinine 6.8 H Creat Clearance w eGFR 6.17 Random Glucose 94 Lactic Acid Calcium 8.9 Magnesium 2.6 H Total Bilirubin 0.4 AST 7 L ALT 8 L Alkaline Phosphatase 297 H Creatine Kinase Troponin I Total Protein 6.7 Albumin 3.2 L Lipase Urine Color Straw Urine Appearance Slcloudy Urine pH 7.0 Ur Specific Enigma 1.008 L Urine Protein 3+ H Urine Glucose (UA) 2+ H Urine Ketones Negative Urine Blood Negative Urine Nitrite Negative Urine Bilirubin Negative Urine Urobilinogen Negative Ur Leukocyte Esterase 2+ H Urine WBC (Auto) 15 Urine RBC (Auto) 1 Ur Epithelial Cells Few Urine Bacteria Rare 06/26/18 06/27/18 06/27/18 16:20 06:45 06:45 WBC 6.8 RBC 2.95 L Hgb 9.0 L Hct 26.2 L MCV 88.8 MCH 30.4 MCHC 34.2 RDW 17.1 H Plt Count 365 MPV 7.4 L Absolute Neuts (auto) 4.3 Neutrophils % 63.3 Lymphocytes % 21.0 Monocytes % 8.5 Eosinophils % 6.4 H Basophils % 0.8 Nucleated RBC % 0 PT with INR INR PTT (Actin FS) Sodium 136 Potassium 3.7 Chloride 104 Carbon Dioxide 18 L Anion Gap 14 BUN 83 H Creatinine 6.5 H Creat Clearance w eGFR 6.50 Random Glucose 103 Lactic Acid 0.7 Calcium 8.4 L Magnesium Total Bilirubin 0.6 AST 8 L ALT 8 L Alkaline Phosphatase 276 H Creatine Kinase Troponin I Total Protein 6.4 Albumin 3.1 L Lipase Urine Color Urine Appearance Urine pH Ur Specific Enigma Urine Protein Urine Glucose (UA) Urine Ketones Urine Blood Urine Nitrite Urine Bilirubin Urine Urobilinogen Ur Leukocyte Esterase Urine WBC (Auto) Urine RBC (Auto) Ur Epithelial Cells Urine Bacteria U/A: 2+ leuk esterase; 15 WBC HOSPITAL COURSE: Date of Admission:06/26/18 62 y.o PMH of ESRD, CHF, HTN, HLD asthma, anemia, chronic low back pain, previous VRE UTI on last admission (likely c/w contamination and was told to monitor off abx as per ID) presented to the ED from [facility] with bilateral low back pain. patient chronically has low back pain but for the past few days patient states her back has been worse its all over however she denies any numbness/tingling weakness in the lower extremity no bowel or bladder incontinence. on arrival to the ED patients vitals and labs were stable she was given neurontin 300 and cymbalta. she was given unsayn for the U/A however patient is not having symptoms and she was seen again by ID who said to monitor off abx. She had also stated that she missed dialysis so she received a dialysis session here and then was d/c'd back to [facility] to resume her normal / / dialysis schedule. she was also given a refrral to see dr. martino the neurosurgeon for her chronic back pain in addition to a increase in her neurontin dose Date of Discharge: 06/27/18 Minutes to complete discharge: 39 Discharge Summary Reason For Visit: UTI,CHRONIC BACK PAIN Current Active Problems Missed dialysis (Acute) Muscle spasm of back (Acute) Condition: Improved - Instructions Diet, Activity, Other Instructions: You came to the emergency room with complaints of worsening back pain over the last couple of days. In addition you received a dialysis session while you were here since you had missed. You will be resuming your normal tu/thurs/sat schedule Please resume all of your home medications in addition: we are increasing your neurontin to 200mg three times a day Please follow up with Dr. Lagos in resident's clinic after your discharge from rehab Please follow up with Dr Coe within one week We are also referring you to a neurosurgeon, Dr. Martino, to help with your back pain- please see him within a week or two *if you begin to experience any numbness/tingling, weakness, chest pain, shortness of breath, please return to the emergency room immediately hepatitis antibodies are still pending and need to be followed in few days . Referrals: Catalino Lagos MD [Staff Physician] - Darius Martino MD, FAANS [Staff Physician] - 1 Week Sofy Coe MD [Staff Physician] - 1 Week Disposition: [facility] - Home Medications Comprehensive Discharge Medication List: Ambulatory Orders Albuterol 2.5/Ipratropium 0.5 [Duoneb -] 1 amp NEB Q6H PRN amp 03/14/18 Melatonin 5 mg PO HS PRN tab 04/29/18 Atorvastatin Ca [Lipitor] 10 mg PO DAILY 05/05/18 Duloxetine HCl [Cymbalta] 30 mg PO DAILY 05/05/18 Amlodipine Besylate [Norvasc -] 2.5 mg PO DAILY #15 tablet 05/06/18 Budesonide/Formeterol Fumarate [SYMBICORT 160/4.5mcg -] 2 puff IH BID #1 inhaler 05/06/18 Varenicline Tartrate [Chantix -] 0.5 mg PO DAILY #30 tab 05/06/18 Docusate Sodium [Colace] 100 mg PO DAILY 06/26/18 Furosemide [Lasix] 20 mg PO DAILY 06/26/18 Mag Hydrox/Al Hydrox/Simeth [Mylanta Oral Suspension -] 30 ml PO PRN 06/26/18 Gabapentin [Neurontin -] 200 mg PO TID 30 Days #90 capsule 06/27/18 Problem List - Problems (1) Missed dialysis Code(s): TRA1769 - (2) Muscle spasm of back Code(s): M62.830 - MUSCLE SPASM OF BACK This patient is new to me today: Yes Date on this admission: 06/27/18 Emergency Visit: Yes ED Registration Date: 06/26/18 Care time: The patient presented to the Emergency Department on the above date and was hospitalized for further evaluation of their emergent condition. Critical Care patient: No - Discharge Referral Referred to [facility] No
[2018-06-27 17:54] VITALS: BP 143/67; PULSE 88; TEMP 97.7
[2018-06-27] MEDS ORDERED: ATORVASTATIN CA 10 MG TABLET (FP) PO SCH (22:00)
[2018-06-28 06:05] LABS: HBSAG SCREEN Negative (Negative); HEP B CORE AB, TOT Negative (Negative)
== END 2018-06-27 21:00 ==
LOC: JER 15:13 → JERBED 19:17 → INTOOBSV 19:17 → J7W 06-27 01:20
PROVIDERS: ADMIT Internal Medicine; ATTEND Internal Medicine
PROC: 3E03329 Introduction of Other Anti-infective into Peripheral Vein, Percutaneous Approach (ICD-10-PCS; principal; 2018-06-26)
PROC: 3E0337Z Introduction of Electrolytic and Water Balance Substance into Peripheral Vein, Percutaneous Approach (ICD-10-PCS; 2018-06-26)
PROC: 3E033GC Introduction of Other Therapeutic Substance into Peripheral Vein, Percutaneous Approach (ICD-10-PCS; 2018-06-26)
PROC: 3E013GC Introduction of Other Therapeutic Substance into Subcutaneous Tissue, Percutaneous Approach (ICD-10-PCS; 2018-06-26)
PROC: 3E0F7GC Introduction of Other Therapeutic Substance into Respiratory Tract, Via Natural or Artificial Opening (ICD-10-PCS; 2018-06-26)
DX: M54.5 Low back pain (principal); G89.29 Other chronic pain; M62.830 Muscle spasm of back; I12.0 Hypertensive chronic kidney disease with stage 5 chronic kidney disease or end stage renal disease; N18.6 End stage renal disease; Z99.2 Dependence on renal dialysis; Z91.15 Patient's noncompliance with renal dialysis; I11.0 Hypertensive heart disease with heart failure; E78.5 Hyperlipidemia, unspecified; I50.32 Chronic diastolic (congestive) heart failure; J44.9 Chronic obstructive pulmonary disease, unspecified; D50.8 Other iron deficiency anemias; E03.9 Hypothyroidism, unspecified; F32.9 Major depressive disorder, single episode, unspecified; F41.9 Anxiety disorder, unspecified; G62.9 Polyneuropathy, unspecified; F17.200 Nicotine dependence, unspecified, uncomplicated; Z96.643 Presence of artificial hip joint, bilateral; Z88.1 Allergy status to other antibiotic agents; Z99.81 Dependence on supplemental oxygen; Z86.73 Personal history of transient ischemic attack (TIA), and cerebral infarction without residual deficits
CPT/HCPCS: 36415; 80053; 81003; 81015; 82550; 83605; 83690; 83735; 84484; 85025; 85610; 85730; 86704; 86706; 86708; 86803; 87086; 87340; 93005; 93010; 94640; 96365; 96372; 96375; 97116-GP; 97161-GP; 99283-25; G0378; J0131; J0885; J1644

== ENCOUNTER 2018-07-01 17:54 | Observation (INO) | payer OTHER ==
[2018-07-01 18:09] VITALS: BMI 56.4
--- NOTE | 2018-07-01 19:31 | PDOC ---
Attending Attestation - HPI HPI: 07/01/18 21:07 Patient is a 63 year old female with a PMH of COPD, CHF, ESRD (T,Th,S), HLD, HTN who presents to the ER with substernal, pleuritic chest pain and associated shortness of breath today. Patient denies any history of blood clots. Patient denies recent illness. Denies recent travel. Patient denies fevers, chills, nausea, vomiting or leg swelling. Allergies: levofloxacin Social Hx: None reported. Surgeries: bilateral hip replacement (right 2009; left 2012) - Physicial Exam PE: 07/01/18 21:07 Agrees with resident's exam. <Dara Leon - Last Filed: 07/01/18 21:11> - Resident Resident Name: Roverto Arredondo - ED Attending Attestation I have performed the following: I have examined & evaluated the patient, The case was reviewed & discussed with the resident, I agree w/resident's findings & plan - Medical Decision Making 07/01/18 21:24 63-year-old female with multiple pain complaints and significant past medical history complaining currently of chest pain EKG shows a normal sinus rhythm at 86 bpm with no acute ST elevations Rhythm strip shows a sinus rhythm at 85-90 bpm Plan for serial enzymes and observation <Sri Rankin - Last Filed: 07/01/18 21:25>
[2018-07-01] MEDS ORDERED: ACETAMINOPHEN 1000 MG/100 ML VIAL (NON FORMULARY) IVPB ONE (19:37)
[2018-07-01] MEDS ORDERED: FAMOTIDINE 20 MG/50 ML IVPB 20 MG/50 ML MG IVPB ONE ×2 (19:37→20:09)
[2018-07-01] MEDS ORDERED: ACETAMINOPHEN INJECTION 100 ML IVPB ONE (20:08)
[2018-07-01 20:23] LABS: BASO % 0.9 % (0-2.0); EOS % 4.7 % (0-4.5); HEMOGLOBIN 8.6 GM/dL (10.7-15.3); LYMPH % 20.2 % (8-40); MCH 30.2 pg (25.7-33.7); MCHC 34.4 g/dl (32.0-36.0); MEAN CELL VOLUME 87.9 fl (80-96); MEAN PLT VOLUME 7.3 fl (7.5-11.1); MONO % 9.3 % (3.8-10.2); NEUT % 64.9 % (42.8-82.8); PLATELET COUNT 346 K/MM3 (134-434); RBC 2.84 M/mm3 (3.60-5.2); RDW 17.3 % (11.6-15.6); WHITE BLOOD COUNT 7.4 K/mm3 (4.0-10.0)
--- NOTE | 2018-07-01 20:31 | PDOC ---
History of Present Illness - General Chief Complaint: Chest Pain Stated Complaint: CHEST PAIN Time Seen by Provider: 07/01/18 19:28 History Source: Patient Exam Limitations: No Limitations - History of Present Illness Initial Comments: 07/01/18 20:25 Patient is a 63F with history of COPD, CHF, ESRD (TThS), HLD, HTN here today complaining of chest pain that onset three hours prior to arrival. Patient complains of associated shortness of breath and epigastric pain. Patient describes the pain as a substernal pain that is worse with inspiration and palpation. Denies fevers, chills, nausea, vomiting. Denies leg pain, leg swelling, recent travel and history of blood clots. Denies cough. Past History - Past Medical History Allergies/Adverse Reactions: Allergies Allergy/AdvReac Type Severity Reaction Status Date / Time levofloxacin [From Levaquin] Allergy Mild Itching Verified 07/01/18 18:09 Home Medications: Ambulatory Orders Albuterol 2.5/Ipratropium 0.5 [Duoneb -] 1 amp NEB Q6H PRN amp 03/14/18 Melatonin 5 mg PO HS PRN tab 04/29/18 Atorvastatin Ca [Lipitor] 10 mg PO DAILY 05/05/18 Duloxetine HCl [Cymbalta] 30 mg PO DAILY 05/05/18 Amlodipine Besylate [Norvasc -] 2.5 mg PO DAILY #15 tablet 05/06/18 Budesonide/Formeterol Fumarate [SYMBICORT 160/4.5mcg -] 2 puff IH BID #1 inhaler 05/06/18 Varenicline Tartrate [Chantix -] 0.5 mg PO DAILY #30 tab 05/06/18 Docusate Sodium [Colace] 100 mg PO DAILY 06/26/18 Furosemide [Lasix] 20 mg PO DAILY 06/26/18 Mag Hydrox/Al Hydrox/Simeth [Mylanta Oral Suspension -] 30 ml PO PRN 06/26/18 Gabapentin [Neurontin -] 200 mg PO TID 30 Days #90 capsule 06/27/18 Anemia: Yes Asthma: Yes Cancer: No Cardiac Disorders: Yes CVA: No COPD: Yes CHF: No DVT: No Dementia: No Diabetes: No Dialysis: Yes GI Disorders: Yes (bleeding ulcer) Disorders: Yes (KIDNEY STONE;) HTN: Yes Hypercholesterolemia: Yes Kidney Stones: Yes Liver Disease: No Psychiatric Problems: Yes (ANXIETY, DEPRESSION) Seizures: No Thyroid Disease: Yes (hypothyroid) - Surgical History Abdominal Surgery: No Appendectomy: No Cardiac Surgery: No Cholecystectomy: No Lung Surgery: No Neurologic Surgery: No Orthopedic Surgery: Yes (B/L hip replacement (rt 2009; left 2012)) - Immunization History Td Vaccination: Yes TDAP Vaccination: No Immunization Up to Date: Yes - Suicide/Smoking/Psychosocial Hx Smoking Status: Yes Smoking History: Never smoked Years of Tobacco Use: 30 Have you smoked in the past 12 months: No Number of Cigarettes Smoked Daily: 6 If you are a former smoker, when did you quit?: refused booklet 07/21/14 Cigars Per Day: 0 Information on smoking cessation initiated: No 'Breaking Loose' booklet given: 03/08/18 Hx Alcohol Use: No Drug/Substance Use Hx: No Substance Use Type: None Hx Substance Use Treatment: Yes Review of Systems - Review of Systems Able to Perform ROS?: Yes Comments:: 07/01/18 20:27 GENERAL/CONSTITUTIONAL: No fever or chills. No weakness. HEAD, EYES, EARS, NOSE AND THROAT: No change in vision. No sore throat. CARDIOVASCULAR: +chest pain +shortness of breath RESPIRATORY: No cough, wheezing, or hemoptysis. GASTROINTESTINAL: No nausea, vomiting, diarrhea or constipation. GENITOURINARY: No dysuria, frequency, or change in urination. MUSCULOSKELETAL: No joint or muscle swelling or pain. No neck pain + chronic back pain. SKIN: No rash NEUROLOGIC: No headache, vertigo, loss of consciousness, or change in strength/ sensation. ENDOCRINE: No increased thirst. No abnormal weight change HEMATOLOGIC/LYMPHATIC: No anemia, easy bleeding, or history of blood clots. ALLERGIC/IMMUNOLOGIC: No hives or skin allergy. *Physical Exam - Vital Signs Last Vital Signs Temp Pulse Resp BP Pulse Ox 98.2 F 98 H 16 144/80 100 07/01/18 18:07 07/01/18 18:07 07/01/18 18:07 07/01/18 18:07 07/01/18 18:07 - Physical Exam Comments: 07/01/18 20:29 GENERAL: Awake, alert, and fully oriented, in no acute distress HEAD: No signs of trauma, normocephalic, atraumatic EYES: PERRLA, EOMI, sclera anicteric, conjunctiva clear ENT: Auricles normal inspection, hearing grossly normal, nares patent, oropharynx clear without exudates. Moist mucosa NECK: Normal ROM, supple, no lymphadenopathy, JVD, or masses LUNGS: No distress, speaks full sentences, clear to auscultation bilaterally HEART: Regular rate and rhythm, normal S1 and S2, no murmurs, rubs or gallops, peripheral pulses normal and equal bilaterally. +severe pain with mild palpation of sternum ABDOMEN: Soft, nontender, normoactive bowel sounds. No guarding, no rebound. No masses EXTREMITIES: Normal range of motion, no edema. No clubbing or cyanosis. NEUROLOGICAL: Cranial nerves II through XII grossly intact. Normal speech, no focal sensorimotor deficits SKIN: Warm, Dry, normal turgor, no rashes or lesions noted. Moderate Sedation - Procedure Monitoring Vital Signs: Procedure Monitoring Vital Signs Temperature 98.2 F 07/01/18 18:07 Pulse Rate 98 H 07/01/18 18:07 Respiratory Rate 16 07/01/18 18:07 Blood Pressure 144/80 07/01/18 18:07 O2 Sat by Pulse Oximetry (%) 100 07/01/18 18:07 ED Treatment Course - LABORATORY CBC & Chemistry Diagram: 07/01/18 20:01 07/01/18 20:01 - ADDITIONAL ORDERS Additional order review: 07/01/18 20:01 RBC 2.84 L MCV 87.9 MCHC 34.4 RDW 17.3 H MPV 7.3 L Neutrophils % 64.9 Lymphocytes % 20.2 Monocytes % 9.3 Eosinophils % 4.7 H Basophils % 0.9 - RADIOLOGY Radiology Studies Ordered: Category Date Time Status CHEST X-RAY PORTABLE* [RAD] Stat Radiology 07/01/18 19:37 Taken - Medications Given in the ED: ED Medications Discontinued Medications Generic Name Dose Route Start Last Admin Trade Name Freq PRN Reason Stop Dose Admin Famotidine/Sodium Chloride 20 mg in 50 mls @ 100 mls/hr 07/01/18 19:37 20:24 Pepcid 20 Mg Premixed Ivpb - IVPB 07/01/18 20:06 100 mls/hr ONCE ONE Administration Medical Decision Making - Medical Decision Making 07/01/18 20:31 Patient is 63F with history of COPD, CHF, ESRD, HLD, HTN here today with chest pain. Atypical chest pain, patient is now demanding opiates, refused. EKG shows NSR with rate of 86. No st elevations/depressions. Normal axis. Normal intervals. No significant t wave abnormalities. Do not suspect PE or dissection at this time. Patient does have multiple co-morbidities and will require observation. 07/01/18 22:42 CBC shows anemia at baseline. CMP shows normal K, ESRD. Trop <0.05. Case d/w Dr Aceves. Accepted to tele obs. *DC/Admit/Observation/Transfer Diagnosis at time of Disposition: Chest pain - Discharge Dispostion Condition at time of disposition: Stable Decision to Admit order: Yes - Referrals - Patient Instructions - Post Discharge Activity
[2018-07-01 20:41] LABS: INR 1.13 (0.83-1.09); PROTHROMBIN TIME (PATIENT) 13.3 SEC (9.7-13.0)
[2018-07-01 21:24] LABS: ALBUMIN 3.2 g/dl (3.4-5.0); ALK PHOS 264 U/L (45-117); ANION GAP 11 MMOL/L (8-16); BILIRUBIN,TOTAL 0.4 mg/dL (0.2-1); BLOOD UREA NITROGEN 27 mg/dL (7-18); CALCIUM 8.9 mg/dL (8.5-10.1); CHLORIDE 99 mmol/L (98-107); CO2 24 mmol/L (21-32); CREATININE 3.4 mg/dL (0.55-1.3); GLUCOSE,RANDOM 94 mg/dL (74-106); LIPASE 361 U/L (73-393); MAGNESIUM 2.3 mg/dL (1.8-2.4); POTASSIUM 3.3 mmol/L (3.5-5.1); SGOT/AST 15 U/L (15-37); SGPT/ALT 12 U/L (13-61); SODIUM 134 mmol/L (136-145); TOT PROT 6.8 g/dl (6.4-8.2)
--- NOTE | 2018-07-01 21:32 | PN ---
Teaching Attending Note ATTENDING PHYSICIAN STATEMENT I saw and evaluated the patient. I reviewed the resident's note and discussed the case with the resident. I agree with the resident's findings and plan as documented. SUBJECTIVE: Seen and examined; please refer to resident note for further historical information. Briefly, this is a patient of Dr. Perea that has been admitted multiple times to the hospitalist service for various issues over the past several months. She comes in today complaining of atypical chest pain. She has been seen here by Dr. Lutz int he past; 01/2018 echo shows a normal LVEF with potential Diastolic Dysfunction and was difficult to visualize the R-heart so couldn't comment on wma's there, etc. She is documented as requesting opiates in the ER. No documented history of CAD but multiple risks evident so admission requested. Consulting her CV and monitoring on tele 10 sys ROS done and negative aside from HPI PMH, PSH, Family Hx, Social Hx reviewed Medications reviewed; continue all home meds OBJECTIVE: VS, labs, imaging reviewed NAD, AAO, resting comfortably in bed NC AT EOMI PERRLA RRR s1/2 no mgr Lungs CTAB, w/ sym exp No rashes or abbrasions CN2-12 wnl, no fnd Normal mood, appropriate behavior EKG reviewed CXR reviewed ASSESSMENT AND PLAN: Patient presents with atypical chest pain; will r/o ACS and consult her CV to see her. She has multiple repeat admissions. 1) Chest Pain in Adult -Atypical in nature but with risk factors; she was also documented by ER as requesting opiates. Would avoid opiates and offer PRN nitro first at least should the pain recur. -Monitor on telemetry, trend troponin. Consult her CV. Will hold off on echo as was recent (noted that it didn't visualize the wall motion on the R-side but given presentation will defer ordering repeat to the subspecialty services). Appreciate expert opinion. -Continue home meds 2) Overall Deconditioning; hx Ambulatory Dysfunction/Falls -PT when inpatient; continue at facility 3) Chronic Respiratory Failure sec to Acute Exacerbation of COPD -No exacerbation. Continue Symbicort, DuoNeb prn. Continue supplemental O2 at 2L via NC. -Needs OP PFTs and close OP followup with pulmonary; has seen Dr. León 4) Diastolic Dysfunction -Currently no evidence of acute decompensation. 5) HTN -Continue Norvasc, HCTZ 6) Anxiety/Depression -On last admit Psych recommends continuing Cymbalta and Neurontin. 7) Hyperlipidemia -Continue Lipitor 8) Hypothyroidism reported Not on medications - TSH 1.6 on previous admission, then was 0.22. Free T4 wnl 9) Chronic Anemia 2/2 iron deficiency and CKD Epogen with HD as per Nephrology, continue Ferrous Sulfate -Victor Manuel Yousef recommended OP GI referral on DC last time; she should ensure this is scheduled when she leaves 10) Peripheral neuropathy/Chronic back pain -Continue Neurontin, Cymbalta, Lidoderm patch, oxycodone as needed 11) Nicotine dependence -Continue Chantix, NRT
--- NOTE | 2018-07-02 01:41 | HP ---
CHIEF COMPLAINT: chest pain PCP: HISTORY OF PRESENT ILLNESS: Pt. is a 63 y.o. F presenting with chest pain, lower back pain, chills, left lower extremity pain. Pt. state" it hurts ll over. " Pt. states that the pain started spontaneously this afternoon and describes it as throbbing. Pt. states that deep breaths and palpitations make the pain worse. Pt. denies burning sensation, denies worsening with or without food. Pt. was recently discharged ~1 week ago for UTI? and low back pain. Pt. states that she urinates 9-10 times per day. Pt. requesting morphine for pain. Pt. denies seeing Dr. Mcneal for lower back pain. Pt. does not recall when her last EGD or colonoscopy was. ER course was notable for: (1)Troponin, EKG (2)CXR, CBC, CMP (3) Recent Travel: No PAST MEDICAL HISTORY: COPD, CHF, ESRD( TThS), HLD, HTN, Hx. of bleeding ulcer, Hx of DVTs? PAST SURGICAL HISTORY: Tonsillectomy, x 1 Social History: Smoking: Smokes 5 cigs/day for 25 years Alcohol: denies Drugs: Denies Family History: Allergies levofloxacin [From Levaquin] Allergy (Mild, Verified 07/01/18 18:09) Itching HOME MEDICATIONS: Home Medications Medication Instructions Recorded Albuterol 2.5/Ipratropium 0.5 1 amp NEB Q6H PRN amp 03/14/18 [Duoneb -] Melatonin 5 mg PO HS PRN tab 04/29/18 Atorvastatin Ca [Lipitor] 10 mg PO DAILY 05/05/18 Duloxetine HCl [Cymbalta] 30 mg PO DAILY 05/05/18 Amlodipine Besylate [Norvasc -] 2.5 mg PO DAILY #15 tablet 05/06/18 Budesonide/Formeterol Fumarate 2 puff IH BID #1 inhaler 05/06/18 [SYMBICORT 160/4.5mcg -] Varenicline Tartrate [Chantix -] 0.5 mg PO DAILY #30 tab 05/06/18 Docusate Sodium [Colace] 100 mg PO DAILY 06/26/18 Furosemide [Lasix] 20 mg PO DAILY 06/26/18 Mag Hydrox/Al Hydrox/Simeth 30 ml PO PRN 06/26/18 [Mylanta Oral Suspension -] Gabapentin [Neurontin -] 200 mg PO TID 30 Days #90 capsule 06/27/18 REVIEW OF SYSTEMS CONSTITUTIONAL: fever, chills, diaphoresis, Absent: generalized weakness, malaise, loss of appetite, weight change HEENT: Absent: rhinorrhea, nasal congestion, throat pain, throat swelling, difficulty swallowing, mouth swelling, ear pain, eye pain, visual changes CARDIOVASCULAR: chest pain, palpitations Absent: syncope,, irregular heart rate, lightheadedness, peripheral edema RESPIRATORY: shortness of breath Absent: cough, dyspnea with exertion, orthopnea, wheezing, stridor, hemoptysis GASTROINTESTINAL: Absent: abdominal pain, abdominal distension, nausea, vomiting, diarrhea, constipation, melena, hematochezia GENITOURINARY: frequency, urgency Absent: dysuria, hesitancy, hematuria, flank pain, genital pain MUSCULOSKELETAL: back pain Absent: myalgia, arthralgia, joint swelling, , neck pain SKIN: Absent: rash, itching, pallor HEMATOLOGIC/IMMUNOLOGIC: Absent: easy bleeding, easy bruising, lymphadenopathy, frequent infections ENDOCRINE: Absent: unexplained weight gain, unexplained weight loss, heat intolerance, cold intolerance NEUROLOGIC: unsteady gait Absent: headache, focal weakness or paresthesias, dizziness, seizure, mental status changes, bladder or bowel incontinence PSYCHIATRIC: Absent: anxiety, depression, suicidal or homicidal ideation, hallucinations. PHYSICAL EXAMINATION Vital Signs - 24 hr 07/01/18 18:07 Temperature 98.2 F Pulse Rate 98 H Respiratory 16 Rate Blood Pressure 144/80 O2 Sat by Pulse 100 Oximetry (%) GENERAL: Awake, alert and oriented to person and place HEAD: Normal with no signs of trauma. EYES: Pupils equal, round and reactive to light, cloudy iris in left eye, extraocular movements intact, sclera anicteric EARS, NOSE, THROAT: Ears normal, nares patent, oropharynx clear without exudates. Moist mucous membranes. NECK: Normal range of motion, supple without lymphadenopathy, JVD, or masses. LUNGS: Decresed coarse BS, wheezing, mild crackles, No accessory muscle use. HEART: Regular rate and rhythm, normal S1 and S2 without murmur ABDOMEN: Soft, Epigastric tenderness, RUQ +LUQ tenderness, not distended, normoactive bowel sounds, no guarding, no rebound MUSCULOSKELETAL: Normal range of motion at all joints. No bony deformities or tenderness. No CVA tenderness. UPPER EXTREMITIES: 2+ pulses, warm, well-perfused. No cyanosis. No clubbing. No peripheral edema. LOWER EXTREMITIES: 2+ pulses, warm, well-perfused. No calf tenderness. No peripheral edema. NEUROLOGICAL: Cranial nerves II-XII intact. Normal speech. Normal gait. PSYCHIATRIC: Cooperative. Good eye contact. Appropriate mood and affect. SKIN: Warm, dry, normal turgor, no rashes or lesions noted, normal capillary refill. Laboratory Results - last 24 hr 07/01/18 07/01/18 07/01/18 20:01 20:01 20:01 WBC 7.4 RBC 2.84 L Hgb 8.6 L Hct 25.0 L MCV 87.9 MCH 30.2 MCHC 34.4 RDW 17.3 H Plt Count 346 MPV 7.3 L Absolute Neuts (auto) 4.8 Neutrophils % 64.9 Lymphocytes % 20.2 Monocytes % 9.3 Eosinophils % 4.7 H Basophils % 0.9 Nucleated RBC % 0 PT with INR 13.30 H INR 1.13 H Sodium 134 L Potassium 3.3 L Chloride 99 Carbon Dioxide 24 Anion Gap 11 BUN 27 H Creatinine 3.4 H Creat Clearance w eGFR 13.73 Random Glucose 94 Calcium 8.9 Magnesium 2.3 Total Bilirubin 0.4 AST 15 ALT 12 L Alkaline Phosphatase 264 H Creatine Kinase 66 Troponin I 0.04 Total Protein 6.8 Albumin 3.2 L Lipase 361 ASSESSMENT/PLAN: Pt. is a 63 y.o. F w/ PMHx. of COPD, CHF, ESRD( TThS), HLD, HTN, Hx. of bleeding ulcer, Hx of DVTs? presents with chest pain that started this afternoon. #R/o ACS Chest pain reproducible on palpation and with inspiration EKG appreciated, no changes trend troponin, Neg x [address] Adler(Cardiology) IV Tylenol #R/o PE D-dimer elevated to 1900s LE duplex negative for DVT No EKG changes consider consult w/ Dr. León--> CT Scan not done b/c elevated Cr. Low- suspicion for PE, may consider V/Q scan #FEN encourage PO intake monitor electrolytes, replete as needed Na restricted Diet #DVT Ppx. SCDs Visit type - Emergency Visit Emergency Visit: Yes ED Registration Date: 07/01/18 Care time: The patient presented to the Emergency Department on the above date and was hospitalized for further evaluation of their emergent condition. - New Patient This patient is new to me today: Yes Date on this admission: 07/02/18 - Critical Care Critical Care patient: No
[2018-07-02] MEDS ORDERED: MELATONIN 5 MG TABLETS PO PRN (01:48)
[2018-07-02] MEDS ORDERED: ALBUTEROL SO4 2.5/IPRATROPIUM 0.5 INH SOL 3 ML VIAL.NEB. NEB PRN (01:48)
[2018-07-02] MEDS ORDERED: MAG HYDROX/AL HYDROX/SIMETH 30 ML UNIT-DOSE CUP PO PRN (02:00)
[2018-07-02 04:59] LABS: URINE APPEARANCE SLCLOUDY; URINE BILIRUBIN NEGATIVE (<2.0 mg/dL); URINE COLOR STRAW; URINE GLUCOSE (UA) 2+ (NEGATIVE); URINE KETONE NEGATIVE (NEGATIVE); URINE LEUK ESTERASE 1+ (NEGATIVE); URINE NITRITE NEGATIVE (NEGATIVE); URINE PROTEIN 3+ (NEGATIVE); URINE UROBILINOGEN NEGATIVE mg/dL (0.2-1.0)
[2018-07-02 05:09] LABS: EPI CELLS FEW /HPF (FEW); URINE BACTERIA RARE /hpf (NONE SEEN)
[2018-07-02] MEDS ORDERED: ACETAMINOPHEN 1000 MG/100 ML VIAL (NON FORMULARY) IVPB ONE (05:54)
[2018-07-02] MEDS: GABAPENTIN 100 MG CAPSULE (FP) PO SCH ×2 (06:49→13:56)
[2018-07-02 07:53] LABS: HEMOGLOBIN 8.8 GM/dL (10.7-15.3); MCH 29.7 pg (25.7-33.7); MCHC 33.8 g/dl (32.0-36.0); MEAN PLT VOLUME 7.2 fl (7.5-11.1); NEUT % 57.4 % (42.8-82.8); PLATELET COUNT 347 K/MM3 (134-434); RBC 2.95 M/mm3 (3.60-5.2); RDW 17.7 % (11.6-15.6); WHITE BLOOD COUNT 6.9 K/mm3 (4.0-10.0)
[2018-07-02 07:54] LABS: EOS % 5.2 % (0-4.5); LYMPH % 26.6 % (8-40); MONO % 9.8 % (3.8-10.2)
[2018-07-02 08:11] LABS: ANION GAP 9 MMOL/L (8-16); BLOOD UREA NITROGEN 36 mg/dL (7-18); CALCIUM 8.8 mg/dL (8.5-10.1); CHLORIDE 103 mmol/L (98-107); CO2 23 mmol/L (21-32); GLUCOSE,RANDOM 88 mg/dL (74-106); MAGNESIUM 2.5 mg/dL (1.8-2.4); PHOSPHOROUS 4.9 mg/dL (2.5-4.9); POTASSIUM 3.7 mmol/L (3.5-5.1); SODIUM 135 mmol/L (136-145)
--- NOTE | 2018-07-02 08:33 | PN ---
Teaching Attending Note Name of Resident: Sangita Rae ATTENDING PHYSICIAN STATEMENT I saw and evaluated the patient. I reviewed the resident's note and discussed the case with the resident. I agree with the resident's findings and plan as documented. SUBJECTIVE: Patient is feeling better. No further chest pain noted. OBJECTIVE: Vital Signs Temperature 98.8 F 07/02/18 06:11 Pulse Rate 81 07/02/18 06:11 Respiratory Rate 16 07/02/18 06:11 Blood Pressure 151/100 07/02/18 06:11 O2 Sat by Pulse Oximetry (%) 97 07/02/18 06:11 Initial Vital Signs Temp Pulse Resp BP Pulse Ox 98.2 F 98 H 16 144/80 100 07/01/18 18:07 07/01/18 18:07 07/01/18 18:07 07/01/18 18:07 07/01/18 18:07 GENERAL: Awake, alert and oriented to person and place HEAD: Normal with no signs of trauma. EYES: Pupils equal, round and reactive to light, extraocular movements intact, sclera anicteric EARS, NOSE, THROAT: Ears normal, oropharynx clear without exudates. Moist mucous membranes. NECK: Normal range of motion, supple without lymphadenopathy, JVD, or masses. LUNGS: decreased BS BL, wheezing, mild crackles, No accessory muscle use. HEART: Regular rate and rhythm, normal S1 and S2 without murmur ABDOMEN: Soft, NT,NR,ND,normoactive bowel sounds, no guarding, no rebound MUSCULOSKELETAL: Normal range of motion at all joints. No bony deformities or tenderness. No CVA tenderness. EXTREMITIES: 2+ pulses, warm, well-perfused. No cyanosis. No clubbing. No peripheral edema. NEUROLOGICAL: Cranial nerves II-XII intact. Normal speech. Normal gait. PSYCHIATRIC: Cooperative. Good eye contact. Appropriate mood and affect. SKIN: Warm, dry, normal turgor, no rashes or lesions noted, normal capillary refill. CBCD WBC 6.9 K/mm3 (4.0-10.0) 07/02/18 07:20 RBC 2.95 M/mm3 (3.60-5.2) L 07/02/18 07:20 Hgb 8.8 GM/dL (10.7-15.3) L 07/02/18 07:20 Hct 26.0 % (32.4-45.2) L 07/02/18 07:20 MCV 88.0 fl (80-96) 07/02/18 07:20 MCHC 33.8 g/dl (32.0-36.0) 07/02/18 07:20 RDW 17.7 % (11.6-15.6) H 07/02/18 07:20 Plt Count 347 K/MM3 (134-434) 07/02/18 07:20 MPV 7.2 fl (7.5-11.1) L 07/02/18 07:20 CMP Sodium 135 mmol/L (136-145) L 07/02/18 07:20 Potassium 3.7 mmol/L (3.5-5.1) 07/02/18 07:20 Chloride 103 mmol/L (98-107) 07/02/18 07:20 Carbon Dioxide 23 mmol/L (21-32) 07/02/18 07:20 Anion Gap 9 MMOL/L (8-16) 07/02/18 07:20 BUN 36 mg/dL (7-18) H 07/02/18 07:20 Creatinine 4.0 mg/dL (0.55-1.3) H 07/02/18 07:20 Creat Clearance w eGFR 11.38 (>60) 07/02/18 07:20 Random Glucose 88 mg/dL (74-106) 07/02/18 07:20 Calcium 8.8 mg/dL (8.5-10.1) 07/02/18 07:20 Total Bilirubin 0.4 mg/dL (0.2-1) 07/01/18 20:01 AST 15 U/L (15-37) 07/01/18 20:01 ALT 12 U/L (13-61) L 07/01/18 20:01 Alkaline Phosphatase 264 U/L (45-117) H 07/01/18 20:01 Total Protein 6.8 g/dl (6.4-8.2) 07/01/18 20:01 Albumin 3.2 g/dl (3.4-5.0) L 07/01/18 20:01 CARDIAC ENZYMES Creatine Kinase 66 U/L (26-192) 07/01/18 20:01 Troponin I 0.03 ng/ml (0.00-0.05) 07/02/18 07:20 Current Medications Generic Name Dose Route Start Last Admin Trade Name Freq PRN Reason Stop Dose Admin Al Hydroxide/Mg Hydroxide 30 ml 07/02/18 02:00 Mylanta Oral Suspension - PO Q6H PRN INDIGESTION Albuterol/Ipratropium 1 amp 07/02/18 01:48 Duoneb - NEB Q6H PRN SHORTNESS OF BREATH Amlodipine Besylate 2.5 mg 07/02/18 10:00 Norvasc - PO DAILY [facility] Atorvastatin Calcium 10 mg 07/02/18 10:00 Lipitor - PO DAILY [facility] Budesonide/Formoterol Fumarate 2 puff 07/02/18 10:00 Symbicort 160/4.5mcg - IH BID [facility] Docusate Sodium 100 mg 07/02/18 10:00 Colace - PO DAILY [facility] Duloxetine HCl 30 mg 07/02/18 10:00 Cymbalta - PO DAILY [facility] Furosemide 20 mg 07/02/18 10:00 Lasix - PO DAILY [facility] Gabapentin 200 mg 07/02/18 06:00 07/02/18 06:49 Neurontin - PO 200 mg TID [facility] Administration Melatonin 5 mg 07/02/18 01:48 Melatonin PO HS PRN INSOMNIA Varenicline 0.5 mg 07/02/18 10:00 Chantix - PO DAILY [facility] Home Medications Medication Instructions Recorded Albuterol 2.5/Ipratropium 0.5 1 amp NEB Q6H PRN amp 03/14/18 [Duoneb -] Melatonin 5 mg PO HS PRN tab 04/29/18 Atorvastatin Ca [Lipitor] 10 mg PO DAILY 05/05/18 Duloxetine HCl [Cymbalta] 30 mg PO DAILY 05/05/18 Budesonide/Formeterol Fumarate 2 puff IH BID #1 inhaler 05/06/18 [SYMBICORT 160/4.5mcg -] Varenicline Tartrate [Chantix -] 0.5 mg PO DAILY #30 tab 05/06/18 Docusate Sodium [Colace] 100 mg PO DAILY 06/26/18 Furosemide [Lasix] 20 mg PO DAILY 06/26/18 Gabapentin [Neurontin -] 200 mg PO TID 30 Days #90 capsule 06/27/18 Amlodipine Besylate [Norvasc -] 5 mg PO BID #60 tablet 07/02/18 ASSESSMENT AND PLAN: Patient presents with atypical chest pain; will r/o ACS and consult her CV to see her. She has multiple repeat admissions. # Acute Chest Pain :Atypical in nature , 2 sets of troponin is negative, cardio on the case. #Acute on chronic Respiratory Failure sec to COPD. continue Symbicort, DuoNeb prn. close follow up with pulmonary, f/u with Dr. León # Hx of Diastolic Dysfunction :stable , continue lasix, # HTN continue Norvasc , dose is changed since the blood pressure is not controlled to 5mg bid. # Anxiety/Depression continue Cymbalta and Neurontin. # Hyperlipidemia continue Lipitor # Chronic Anemia due to CKD ,epogen with HD as per Nephrology. # Peripheral neuropathy/Chronic back pain continue Neurontin, Cymbalta, Lidoderm patch, oxycodone as needed # Nicotine dependence continue Chantix, NRT # Overall Deconditioning; hx Ambulatory Dysfunction/Falls continue rehab. at facility Discharge the patient to rehab.
--- NOTE | 2018-07-02 08:43 | PN ---
Physical Exam: SUBJECTIVE: Patient seen and examined OBJECTIVE: Vital Signs Period Temp Pulse Resp BP Sys/Bills Pulse Ox Last 24 Hr 98.2 F-99.1 F 81-98 15-22 144-151/77-100 97-100 GENERAL: The patient is awake, alert, and fully oriented, in no acute distress. HEAD: Normal with no signs of trauma. EYES: PERRL, extraocular movements intact, sclera anicteric, conjunctiva clear. No ptosis. ENT: Ears normal, nares patent, oropharynx clear without exudates, moist mucous membranes. NECK: Trachea midline, full range of motion, supple. LUNGS: Breath sounds equal, clear to auscultation bilaterally, no wheezes, no crackles, no accessory muscle use. HEART: Regular rate and rhythm, S1, S2 without murmur, rub or gallop. ABDOMEN: Soft, nontender, nondistended, normoactive bowel sounds, no guarding, no rebound, no hepatosplenomegaly, no masses. EXTREMITIES: 2+ pulses, warm, well-perfused, no edema. NEUROLOGICAL: Cranial nerves II through XII grossly intact. Normal speech, gait not observed. PSYCH: Normal mood, normal affect. SKIN: Warm, dry, normal turgor, no rashes or lesions noted Laboratory Results - last 24 hr 07/01/18 07/01/18 07/01/18 20:01 20:01 20:01 WBC 7.4 RBC 2.84 L Hgb 8.6 L Hct 25.0 L MCV 87.9 MCH 30.2 MCHC 34.4 RDW 17.3 H Plt Count 346 MPV 7.3 L Absolute Neuts (auto) 4.8 Neutrophils % 64.9 Lymphocytes % 20.2 Monocytes % 9.3 Eosinophils % 4.7 H Basophils % 0.9 Nucleated RBC % 0 PT with INR 13.30 H INR 1.13 H D-Dimer Sodium 134 L Potassium 3.3 L Chloride 99 Carbon Dioxide 24 Anion Gap 11 BUN 27 H Creatinine 3.4 H Creat Clearance w eGFR 13.73 Random Glucose 94 Calcium 8.9 Phosphorus Magnesium 2.3 Total Bilirubin 0.4 AST 15 ALT 12 L Alkaline Phosphatase 264 H Creatine Kinase 66 Troponin I 0.04 Total Protein 6.8 Albumin 3.2 L Lipase 361 Urine Color Urine Appearance Urine pH Ur Specific [place] Urine Protein Urine Glucose (UA) Urine Ketones Urine Blood Urine Nitrite Urine Bilirubin Urine Urobilinogen Ur Leukocyte Esterase Urine WBC (Auto) Urine RBC (Auto) Ur Epithelial Cells Urine Bacteria 07/02/18 07/02/18 07/02/18 03:50 04:30 07:20 WBC 6.9 RBC 2.95 L Hgb 8.8 L Hct 26.0 L MCV 88.0 MCH 29.7 MCHC 33.8 RDW 17.7 H Plt Count 347 MPV 7.2 L Absolute Neuts (auto) 3.9 Neutrophils % 57.4 Lymphocytes % 26.6 D Monocytes % 9.8 Eosinophils % 5.2 H Basophils % 1.0 Nucleated RBC % 0 PT with INR INR D-Dimer 1909 H Sodium Potassium Chloride Carbon Dioxide Anion Gap BUN Creatinine Creat Clearance w eGFR Random Glucose Calcium Phosphorus Magnesium Total Bilirubin AST ALT Alkaline Phosphatase Creatine Kinase Troponin I Total Protein Albumin Lipase Urine Color Straw Urine Appearance Slcloudy Urine pH 9.0 H D Ur Specific [place] 1.007 L Urine Protein 3+ H Urine Glucose (UA) 2+ H Urine Ketones Negative Urine Blood Negative Urine Nitrite Negative Urine Bilirubin Negative Urine Urobilinogen Negative Ur Leukocyte Esterase 1+ H Urine WBC (Auto) 24 Urine RBC (Auto) <1 Ur Epithelial Cells Few Urine Bacteria Rare 07/02/18 07:20 WBC RBC Hgb Hct MCV MCH MCHC RDW Plt Count MPV Absolute Neuts (auto) Neutrophils % Lymphocytes % Monocytes % Eosinophils % Basophils % Nucleated RBC % PT with INR INR D-Dimer Sodium 135 L Potassium 3.7 Chloride 103 Carbon Dioxide 23 Anion Gap 9 BUN 36 H Creatinine 4.0 H Creat Clearance w eGFR 11.38 Random Glucose 88 Calcium 8.8 Phosphorus 4.9 Magnesium 2.5 H Total Bilirubin AST ALT Alkaline Phosphatase Creatine Kinase Troponin I 0.03 Total Protein Albumin Lipase Urine Color Urine Appearance Urine pH Ur Specific [place] Urine Protein Urine Glucose (UA) Urine Ketones Urine Blood Urine Nitrite Urine Bilirubin Urine Urobilinogen Ur Leukocyte Esterase Urine WBC (Auto) Urine RBC (Auto) Ur Epithelial Cells Urine Bacteria Active Medications Generic Name Dose Route Start Last Admin Trade Name Freq PRN Reason Stop Dose Admin Acetaminophen 650 mg 07/02/18 08:40 Tylenol - PO Q4H PRN PAIN Al Hydroxide/Mg Hydroxide 30 ml 07/02/18 02:00 Mylanta Oral Suspension - PO Q6H PRN INDIGESTION Albuterol/Ipratropium 1 amp 07/02/18 01:48 Duoneb - NEB Q6H PRN SHORTNESS OF BREATH Amlodipine Besylate 2.5 mg 07/02/18 10:00 Norvasc - PO DAILY [facility] Atorvastatin Calcium 10 mg 07/02/18 10:00 Lipitor - PO DAILY [facility] Budesonide/Formoterol Fumarate 2 puff 07/02/18 10:00 Symbicort 160/4.5mcg - IH BID [facility] Docusate Sodium 100 mg 07/02/18 10:00 Colace - PO DAILY [facility] Duloxetine HCl 30 mg 07/02/18 10:00 Cymbalta - PO DAILY [facility] Furosemide 20 mg 07/02/18 10:00 Lasix - PO DAILY [facility] Gabapentin 200 mg 07/02/18 06:00 07/02/18 06:49 Neurontin - PO 200 mg TID [facility] Administration Lidocaine 1 patch 07/02/18 10:00 Lidoderm Patch - TP DAILY [facility] Melatonin 5 mg 07/02/18 01:48 Melatonin PO HS PRN INSOMNIA Miscellaneous 1 each 07/02/18 22:00 Lidoderm Patch Removal MC DAILY@2200 [facility] Varenicline 0.5 mg 07/02/18 10:00 Chantix - PO DAILY [facility] ASSESSMENT/PLAN: 52F w/ PMHx ESRD, CHF, HTN, HLD, COPD, asthma, anemia, chronic low back pain, VRE in urine that was not treated, presented to the ED from [facility] with chest pain. #Acute on Chronic Back Pain -Well known to have back pain, but no concerning issues found on H&P. -Pain control PRN -PT eval #? UTI -Unasyn given x1 dose in the ED -Pt is currently afebrile, no white count, not complaining of any hematuria, dysuria; likely not acutely infected at this time. During previous admission , UCx showed VRE faecaelis (C/S: Ampicillin, Cipro, Dapto, Levofloxacin, Linezolid, Nitrofurantoin, PCN) -Pt was last seen here and evaluated by ID who recommended pt to be off abx -Will hold off abx for now; consult ID and await recs #ESRD; BUN/Cr 81/6.8 -Pt states she had not been to her HD sessions x1 week. Electrolytes are normal and pt does not appear overloaded at this time. -Nephro consult -Monitor BMP #Chronic CHF w/ preserved EF -no acute exacerbation #Chronic Respiratory Failure Cont home meds: Symbicort, Duonebs PRN #HTN Cont home med: Amlodipine 2.5 PO QD #Anxiety/Depression Cont home meds: Cymbalta 30 QD, Neurontin 200 PO #HLD Cont home med: Atorvastatin 10 PO QD #Hypothyroidism -Not currently on meds #Chronic Anemia 2/2 SATHISH and CKD -Epogen w/ HD per nephrology #Peripheral Neuropathy Cont home meds: Neurontin, Cymbalta, Lidoderm patch, Oxycodone PRN #Prophylaxis -SQH #FEN -PO hydration -recheck lytes in AM -Sodium-controlled diet dispo -admit to med-surg inpt -full code
[2018-07-02] MEDS ORDERED: oxyCODONE HCL 5 MG TABLET PO ONE ×2 (09:11→13:35)
[2018-07-02] MEDS: ACETAMINOPHEN 325 MG TABLET (FP) PO PRN ×2 (09:55→13:56)
[2018-07-02] MEDS ORDERED: PANTOPRAZOLE 20 MG TABLET (FP) PO SCH (10:00)
[2018-07-02] MEDS ORDERED: FUROSEMIDE 20 MG TABLET (FP) PO SCH (10:00)
[2018-07-02] MEDS ORDERED: ATORVASTATIN CA 10 MG TABLET (FP) PO SCH (10:00)
[2018-07-02] MEDS ORDERED: amLODIPine BESYLATE 2.5 MG TABLET (FP) PO SCH (10:00)
[2018-07-02] MEDS ORDERED: LIDOCAINE 5% TOPICAL PATCH TP SCH (10:00)
[2018-07-02] MEDS ORDERED: DULoxetine HCL 30 MG CAPSULE.DR (FP) PO SCH (10:00)
[2018-07-02] MEDS ORDERED: BUDESONIDE/FORMETEROL FUMARATE 160/4.5 mcg INHALER IH SCH (10:00)
[2018-07-02] MEDS ORDERED: VARENICLINE TARTRATE 0.5 MG TAB PO SCH (10:00)
[2018-07-02] MEDS ORDERED: DOCUSATE SODIUM 100 MG CAPSULE (FP) PO SCH (10:00)
[2018-07-02] MEDS ORDERED: PT OWN MED DRAWER 7, Y5N ONE (10:03)
--- NOTE | 2018-07-02 11:09 | EKG ---
Test Reason : Blood Pressure : / mmHG Vent. Rate : 086 BPM Atrial Rate : 086 BPM P-R Int : 184 ms QRS Dur : 084 ms QT Int : 376 ms P-R-T Axes : 044 -09 066 degrees QTc Int : 449 ms NORMAL SINUS RHYTHM WITH SINUS ARRHYTHMIA NORMAL ECG WHEN COMPARED WITH ECG OF 26-JUN-2018 17:20, CRITERIA FOR SEPTAL INFARCT ARE NO LONGER PRESENT Confirmed by JOÃO BURGESS, MAXX ([id number] on 07/02/2018 11:08:51 AM Referred By: Confirmed By:MAXX MOYER MD
--- NOTE | 2018-07-02 13:26 | CON.CARD ---
Consult Consult Specialty:: Cardiology Referred by:: Dr. Engel Reason for Consultation:: Chest pain - History of Present Illness Chief Complaint: Chest pain History of Present Illness: 63 year-old woman, smoker with a PMHx of HTN, HLD, CHF, COPD, ESRD on HD, asthma , PUD, GI bleeding, recent UTI and chronic back pain admitted 07/01/2018 with chest pain. The patient has been experiencing lower chest, bilateral rib cage pain for 2-3 day. The pain is worse with inspiration and palpation with severe local tenderness. She has chronic low back pain and VIVAR with limited exercise tolerance. But she has no SOB at rest, palpitation, syncope, near syncope, edema , orthopnea or PND. Her ECG is normal without ischemic changes. Troponin is within normal range. Echocardiogram 01/23/2018: TDS, grossly normal LV. LVEF = 55-60%. - History Source History Provided By: Patient, Medical Record Limitations to Obtaining History: No Limitations - Past Medical History FILLER SHREDDER: Yes: Dementia, Peripheral Neuropathy Cardio/Vascular: Yes: HTN, Hyperlipdemia Pulmonary: Yes: Asthma, Bronchitis, COPD, Pneumonia. No: Pulmonary Embolus, Pulmonary Fibrosis, Sleep Apnea Gastrointestinal: Yes: Gastritis Renal/: Yes: Renal Inusuff, Hemodialysis ...LMP: 07/25/12 Infectious Disease: Yes: MRSA Psych: Yes: Anxiety, Depression Musculoskeletal: Yes: Chronic low back pain Endocrine: Yes: Hyperthyroidism - Past Surgical History Past Surgical History: Yes: AV Fistula/Graft, Joint Replacement (hip replacement ) - Alcohol/Substance Use Hx Alcohol Use: No History of Substance Use: reports: Marijuana - Smoking History Smoking history: Former smoker Have you smoked in the past 12 months: No Aproximately how many cigarettes per day: 6 If you are a former smoker, when did you quit?: refused booklet 07/21/14 - Social History Usual Living Arrangement: With Child ADL: Independent Occupation: not working, SSI History of Recent Travel: No Home Medications - Allergies Allergies/Adverse Reactions: Allergies Allergy/AdvReac Type Severity Reaction Status Date / Time levofloxacin [From Levaquin] Allergy Mild Itching Verified 07/01/18 18:09 - Home Medications Home Medications: Ambulatory Orders Albuterol 2.5/Ipratropium 0.5 [Duoneb -] 1 amp NEB Q6H PRN amp 03/14/18 Melatonin 5 mg PO HS PRN tab 04/29/18 Atorvastatin Ca [Lipitor] 10 mg PO DAILY 05/05/18 Duloxetine HCl [Cymbalta] 30 mg PO DAILY 05/05/18 Budesonide/Formeterol Fumarate [SYMBICORT 160/4.5mcg -] 2 puff IH BID #1 inhaler 05/06/18 Varenicline Tartrate [Chantix -] 0.5 mg PO DAILY #30 tab 05/06/18 Docusate Sodium [Colace] 100 mg PO DAILY 06/26/18 Furosemide [Lasix] 20 mg PO DAILY 06/26/18 Gabapentin [Neurontin -] 200 mg PO TID 30 Days #90 capsule 06/27/18 Amlodipine Besylate [Norvasc -] 5 mg PO BID #60 tablet 07/02/18 Family Disease History - Family Disease History Family Disease History: Other: Father (alive), Mother (alive), Sister (alive), Son (23 yo old - alive - healthy) Review of Systems - Review of Systems Cardiovascular: reports: Chest Pain Respiratory: reports: SOB, SOB on Exertion Vital Signs: Vital Signs Temperature 98.8 F 07/02/18 06:11 Pulse Rate 81 07/02/18 06:11 Respiratory Rate 16 07/02/18 06:11 Blood Pressure 151/100 07/02/18 06:11 O2 Sat by Pulse Oximetry (%) 97 07/02/18 06:11 General: Well developed. Well nourished. No acute distress. Head: Normocephalic. Atraumatic, Eyes: PERRLA, EOMI. Sclerae anicteric. Conjunctivae clear. Neck: Supple. No JVD. No bruits. Heart: Normal S1, S2: Regular rhythm and rate. No murmur. No gallop or rub. Lungs: Symmetrical air entry. Clear to auscultation. No crackles. No wheezing or rhonchi. Abdomen: Soft. Bowel sound positive. Non tender. No masses. Extremities: No edema. No clubbing or cyanosis. PD 2+, equal bilaterally. Neuro: Intact, no focal findings. AAO X3. - Other Data Labs, Other Data: CBC, BMP 07/02/18 07:20 07/02/18 07:20 INR, PTT INR 1.13 (0.83-1.09) H 07/01/18 20:01 Troponin, BNP 07/01/18 07/02/18 20:01 07:20 Troponin I 0.04 0.03 Troponin, BNP 07/01/18 07/02/18 20:01 07:20 Troponin I 0.04 0.03 Assessment/Plan 63 year-old woman, smoker with a PMHx of HTN, HLD, CHF, COPD, ESRD on HD, asthma , PUD, GI bleeding, recent UTI and chronic back pain admitted 07/01/2018 with chest pain. The patient has been experiencing lower chest, bilateral rib cage pain for 2-3 day. The pain is worse with inspiration and palpation with severe local tenderness. She has chronic low back pain and VIVAR with limited exercise tolerance. But she has no SOB at rest, palpitation, syncope, near syncope, edema , orthopnea or PND. Her ECG is normal without ischemic changes. Troponin is within normal range. Echocardiogram 01/23/2018: TDS, grossly normal LV. LVEF = 55-60%. 1) Atypical chest pain, likely non-cardiac origin. Normal troponin. No ECG changes of ischemia. But the patient has multiple risk factors of CAD. She should have out-pt cardiac follow up with Dr. Lucero for her cardiac care. 2) HTN: BP is elevated. May increase Norvasc to 10 mg daily for BP control. Please call us for reconsult as needed.
[2018-07-02 14:34] VITALS: PULSE 80; TEMP 98.6
[2018-07-02 17:24] VITALS: BP 140/70
--- NOTE | 2018-07-02 18:05 | DS ---
Physical Exam: SUBJECTIVE: Patient seen and examined OBJECTIVE: Vital Signs Period Temp Pulse Resp BP Sys/Bills Pulse Ox Last 24 Hr 98.2 F-99.1 F 80-98 15-22 140-153/70-100 97-100 PHYSICAL EXAM GENERAL: The patient is awake, alert, and fully oriented, in no acute distress. HEAD: Normal with no signs of trauma. EYES: PERRL, extraocular movements intact, sclera anicteric, conjunctiva clear. ENT: Ears normal, nares patent, oropharynx clear without exudates, moist mucous membranes. NECK: Trachea midline, full range of motion, supple. LUNGS: Breath sounds equal, clear to auscultation bilaterally, no wheezes, no crackles, no accessory muscle use. HEART: Regular rate and rhythm, S1, S2 without murmur, rub or gallop. ABDOMEN: Soft, nontender, nondistended, normoactive bowel sounds, no guarding, no rebound, no hepatosplenomegaly, no masses. EXTREMITIES: 2+ pulses, warm, well-perfused, no edema. NEUROLOGICAL: Cranial nerves II through XII grossly intact. Normal speech, gait not observed. PSYCH: Normal mood, normal affect. SKIN: Warm, dry, normal turgor, no rashes or lesions noted. LABS Laboratory Results - last 24 hr 07/01/18 07/01/18 07/01/18 20:01 20:01 20:01 WBC 7.4 RBC 2.84 L Hgb 8.6 L Hct 25.0 L MCV 87.9 MCH 30.2 MCHC 34.4 RDW 17.3 H Plt Count 346 MPV 7.3 L Absolute Neuts (auto) 4.8 Neutrophils % 64.9 Lymphocytes % 20.2 Monocytes % 9.3 Eosinophils % 4.7 H Basophils % 0.9 Nucleated RBC % 0 PT with INR 13.30 H INR 1.13 H D-Dimer Sodium 134 L Potassium 3.3 L Chloride 99 Carbon Dioxide 24 Anion Gap 11 BUN 27 H Creatinine 3.4 H Creat Clearance w eGFR 13.73 Random Glucose 94 Calcium 8.9 Phosphorus Magnesium 2.3 Total Bilirubin 0.4 AST 15 ALT 12 L Alkaline Phosphatase 264 H Creatine Kinase 66 Troponin I 0.04 Total Protein 6.8 Albumin 3.2 L Lipase 361 Urine Color Urine Appearance Urine pH Ur Specific [place] Urine Protein Urine Glucose (UA) Urine Ketones Urine Blood Urine Nitrite Urine Bilirubin Urine Urobilinogen Ur Leukocyte Esterase Urine WBC (Auto) Urine RBC (Auto) Ur Epithelial Cells Urine Bacteria 07/02/18 07/02/18 07/02/18 03:50 04:30 07:20 WBC 6.9 RBC 2.95 L Hgb 8.8 L Hct 26.0 L MCV 88.0 MCH 29.7 MCHC 33.8 RDW 17.7 H Plt Count 347 MPV 7.2 L Absolute Neuts (auto) 3.9 Neutrophils % 57.4 Lymphocytes % 26.6 D Monocytes % 9.8 Eosinophils % 5.2 H Basophils % 1.0 Nucleated RBC % 0 PT with INR INR D-Dimer 1909 H Sodium Potassium Chloride Carbon Dioxide Anion Gap BUN Creatinine Creat Clearance w eGFR Random Glucose Calcium Phosphorus Magnesium Total Bilirubin AST ALT Alkaline Phosphatase Creatine Kinase Troponin I Total Protein Albumin Lipase Urine Color Straw Urine Appearance Slcloudy Urine pH 9.0 H D Ur Specific [place] 1.007 L Urine Protein 3+ H Urine Glucose (UA) 2+ H Urine Ketones Negative Urine Blood Negative Urine Nitrite Negative Urine Bilirubin Negative Urine Urobilinogen Negative Ur Leukocyte Esterase 1+ H Urine WBC (Auto) 24 Urine RBC (Auto) <1 Ur Epithelial Cells Few Urine Bacteria Rare 07/02/18 07:20 WBC RBC Hgb Hct MCV MCH MCHC RDW Plt Count MPV Absolute Neuts (auto) Neutrophils % Lymphocytes % Monocytes % Eosinophils % Basophils % Nucleated RBC % PT with INR INR D-Dimer Sodium 135 L Potassium 3.7 Chloride 103 Carbon Dioxide 23 Anion Gap 9 BUN 36 H Creatinine 4.0 H Creat Clearance w eGFR 11.38 Random Glucose 88 Calcium 8.8 Phosphorus 4.9 Magnesium 2.5 H Total Bilirubin AST ALT Alkaline Phosphatase Creatine Kinase Troponin I 0.03 Total Protein Albumin Lipase Urine Color Urine Appearance Urine pH Ur Specific [place] Urine Protein Urine Glucose (UA) Urine Ketones Urine Blood Urine Nitrite Urine Bilirubin Urine Urobilinogen Ur Leukocyte Esterase Urine WBC (Auto) Urine RBC (Auto) Ur Epithelial Cells Urine Bacteria HOSPITAL COURSE: Date of Admission:07/01/18 Pt. is a 63 y.o. F presenting with chest pain, lower back pain, chills, left lower extremity pain. Pt. state" it hurts ll over." Pt. states that the pain started spontaneously this afternoon and describes it as throbbing. Pt. states that deep breaths and palpitations make the pain worse. Pt. denies burning sensation, denies worsening with or without food. Pt. was recently discharged ~ 1 week ago for UTI? and low back pain. she did not take anything for the pain she described it more as a burning pain; with GERD like symptoms non radiating; reproducible in epigastric region. EKG normal; vitals normal; trops negative times three- she was seen by cardiology who deemed her cleared from cardiac standpoint. she was stbale for dc with follow up to see skein inspector. Date of Discharge: 07/02/18 Minutes to complete discharge: 39 Discharge Summary Reason For Visit: CHEST PAIN Condition: Stable - Instructions Diet, Activity, Other Instructions: You came to the emergency room with complaints of chest pain for a few days. We monitored you on a cardiac floor and had a skein inspector come and evaluate you and everything was normal. You were stable enough to be discharged back to the snf. We are making some changes to your medications We are increasing your Norvasc dose from 2.5 mg to 5mg to be taken twice a day We are discontinuing your Hydrochlorthiazide medication Please follow up with Dr. White within one week We are referring you to the skein inspector that saw you, Dr. Mart, please see him within one week Please follow up with Dr. Martino, the neurosurgeon for your chronic back pain Please resume your normal hemodialysis schedule every //sat *if you begin to experience any chest pain, shortness of breath, nausea/ vomiting please return to the emergency room immediately Referrals: Lisette White MD [Primary Care Provider] - 1 Week Darius Martino MD, FAANS [Staff Physician] - 1 Week Terry Mart MD [Staff Physician] - 1 Week Sofy Coe MD [Staff Physician] - 1 Week Disposition: [facility] - Home Medications Comprehensive Discharge Medication List: Ambulatory Orders Albuterol 2.5/Ipratropium 0.5 [Duoneb -] 1 amp NEB Q6H PRN amp 03/14/18 Melatonin 5 mg PO HS PRN tab 04/29/18 Atorvastatin Ca [Lipitor] 10 mg PO DAILY 05/05/18 Duloxetine HCl [Cymbalta] 30 mg PO DAILY 05/05/18 Budesonide/Formeterol Fumarate [SYMBICORT 160/4.5mcg -] 2 puff IH BID #1 inhaler 05/06/18 Varenicline Tartrate [Chantix -] 0.5 mg PO DAILY #30 tab 05/06/18 Docusate Sodium [Colace] 100 mg PO DAILY 06/26/18 Furosemide [Lasix] 20 mg PO DAILY 06/26/18 Gabapentin [Neurontin -] 200 mg PO TID 30 Days #90 capsule 06/27/18 Amlodipine Besylate [Norvasc -] 5 mg PO BID #60 tablet 07/02/18 Problem List - Problems (1) Chest pain Code(s): R07.9 - CHEST PAIN, UNSPECIFIED This patient is new to me today: Yes Date on this admission: 07/02/18 Emergency Visit: Yes ED Registration Date: 07/01/18 Care time: The patient presented to the Emergency Department on the above date and was hospitalized for further evaluation of their emergent condition. Critical Care patient: No - Discharge Referral Referred to [facility] Med [facility].: No
[2018-07-02] MEDS ORDERED: LIDOCAINE PATCH REMOVAL MC SCH (22:00)
== END 2018-07-02 20:05 ==
LOC: JER 17:54 → JERBED 21:48 → J2W 07-02 05:21
PROVIDERS: ADMIT Internal Medicine; ATTEND Internal Medicine
PROC: 3E033NZ Introduction of Analgesics, Hypnotics, Sedatives into Peripheral Vein, Percutaneous Approach (ICD-10-PCS; principal; 2018-07-01)
PROC: 3E033GC Introduction of Other Therapeutic Substance into Peripheral Vein, Percutaneous Approach (ICD-10-PCS; 2018-07-01)
PROC: 3E013GC Introduction of Other Therapeutic Substance into Subcutaneous Tissue, Percutaneous Approach (ICD-10-PCS; 2018-07-01)
DX: R07.89 Other chest pain (principal); I12.0 Hypertensive chronic kidney disease with stage 5 chronic kidney disease or end stage renal disease; N18.6 End stage renal disease; Z99.2 Dependence on renal dialysis; I11.0 Hypertensive heart disease with heart failure; E78.5 Hyperlipidemia, unspecified; I50.9 Heart failure, unspecified; J44.9 Chronic obstructive pulmonary disease, unspecified; D64.9 Anemia, unspecified; E03.9 Hypothyroidism, unspecified; G62.9 Polyneuropathy, unspecified; M54.5 Low back pain; G89.29 Other chronic pain; F17.210 Nicotine dependence, cigarettes, uncomplicated; Z87.440 Personal history of urinary (tract) infections; Z88.1 Allergy status to other antibiotic agents
CPT/HCPCS: 36415; 71045-TC-FY; 80048; 80053; 81003; 81015; 82550; 83690; 83735; 84100; 84484; 85025; 85379; 85610; 93005; 93010; 93970-TC; 96365; 96375; 96376; 99283-25; G0378; J0131

== ENCOUNTER 2018-07-06 05:43 | Emergency (ER) | payer OTHER ==
[2018-07-06] MEDS ORDERED: ASPIRIN 81 MG CHEWABLE TABLETS PO ONE (05:50)
[2018-07-06 06:07] VITALS: BMI 23.0
--- NOTE | 2018-07-06 06:08 | PDOC ---
History of Present Illness - General Chief Complaint: Chest Pain Stated Complaint: CHEST PAIN Time Seen by Provider: 07/06/18 05:59 History Source: Patient Exam Limitations: No Limitations - History of Present Illness Initial Comments: 07/06/18 06:08 Best Contact: PCP: Yashira Vyas Pmhx: Asthma/no recent admission or history of intubation Pshx: Tonsillectomy as a child Allergies: NO KNOWN DRUG ALLERGIES FH: Denies Social Hx: Cigarettes/ 5 to a cigarettes a day for the past 20 years Alcohol/denies Drugs/denies 63-year-old female presents to the emergency department complaining of left sided substernal chest pain described as 5/10 sharp intermittent nonradiating discomfort for the past 5 hours without fever, chills, nausea/vomiting, headache , dizziness, lightheadedness, facial pain, earache, rhinorrhea, nasal congestion , sore throat, neck pain/stiffness, shortness of breath, flank pains, urinary symptoms, extremity numbness or tingling sensation, weakness. Patient states she 's had a nonproductive cough for approximately one week without fever. Patient also states she's had mid back and low back pain for approximately 8 hours. The pain is exacerbated on movement and alleviated at rest. Patient denies bladder or bowel dysfunction. Patient states she has chronic chest pains. She's had numerous workup which were negative. Past History - Past Medical History Allergies/Adverse Reactions: Allergies Allergy/AdvReac Type Severity Reaction Status Date / Time levofloxacin [From Levaquin] Allergy Mild Itching Verified 07/01/18 18:09 Home Medications: Ambulatory Orders Albuterol 2.5/Ipratropium 0.5 [Duoneb -] 1 amp NEB Q6H PRN amp 03/14/18 Melatonin 5 mg PO HS PRN tab 04/29/18 Atorvastatin Ca [Lipitor] 10 mg PO DAILY 05/05/18 Duloxetine HCl [Cymbalta] 30 mg PO DAILY 05/05/18 Budesonide/Formeterol Fumarate [SYMBICORT 160/4.5mcg -] 2 puff IH BID #1 inhaler 05/06/18 Varenicline Tartrate [Chantix -] 0.5 mg PO DAILY #30 tab 05/06/18 Docusate Sodium [Colace] 100 mg PO DAILY 06/26/18 Furosemide [Lasix] 20 mg PO DAILY 06/26/18 Gabapentin [Neurontin -] 200 mg PO TID 30 Days #90 capsule 06/27/18 Amlodipine Besylate [Norvasc -] 5 mg PO BID #60 tablet 07/02/18 Anemia: Yes Asthma: Yes Cancer: No Cardiac Disorders: Yes CVA: No COPD: Yes CHF: No DVT: No Dementia: No Diabetes: No Dialysis: Yes GI Disorders: Yes (bleeding ulcer) Disorders: Yes (KIDNEY STONE;) HTN: Yes Hypercholesterolemia: Yes Kidney Stones: Yes Liver Disease: No Psychiatric Problems: Yes (ANXIETY, DEPRESSION) Seizures: No Thyroid Disease: Yes (hypothyroid) - Surgical History Abdominal Surgery: No Appendectomy: No Cardiac Surgery: No Cholecystectomy: No Lung Surgery: No Neurologic Surgery: No Orthopedic Surgery: Yes (B/L hip replacement (rt 2009; left 2012)) - Immunization History Td Vaccination: Yes TDAP Vaccination: No Immunization Up to Date: Yes - Suicide/Smoking/Psychosocial Hx Smoking Status: Yes Smoking History: Never smoked Years of Tobacco Use: 30 Have you smoked in the past 12 months: No Number of Cigarettes Smoked Daily: 6 If you are a former smoker, when did you quit?: refused booklet 07/21/14 Cigars Per Day: 0 Information on smoking cessation initiated: No 'Breaking Loose' booklet given: 03/08/18 Hx Alcohol Use: No Drug/Substance Use Hx: No Substance Use Type: None Hx Substance Use Treatment: Yes Cardiac Specific PMH - Complaint Specific PMHX Angina: No Pacemaker: No Review of Systems - Review of Systems Able to Perform ROS?: Yes Comments:: 07/06/18 06:08 CONSTITUTIONAL: Absent: fever, chills, diaphoresis, generalized weakness, malaise, loss of appetite HEENT: Absent: rhinorrhea, nasal congestion, throat pain, throat swelling, difficulty swallowing, mouth swelling, ear pain, eye pain, visual Changes CARDIOVASCULAR: +chest pain Absent: loss of consciousness, palpitations, irregular heart rate, peripheral edema RESPIRATORY: +cough/non productive Absent: shortness of breath, dyspnea with exertion, orthopnea, wheezing, stridor , hemoptysis GASTROINTESTINAL: Absent: abdominal pain, abdominal distension, nausea, vomiting, diarrhea, constipation, melena, hematochezia GENITOURINARY: Absent: dysuria, frequency, urgency, hesitancy, hematuria, flank pain, genital pain MUSCULOSKELETAL: Absent: myalgia, arthralgia, joint swelling SKIN: Absent: rash, itching, pallor HEMATOLOGIC/IMMUNOLOGIC: Absent: easy bleeding, easy bruising, lymphadenopathy, frequent infections ENDOCRINE: Absent: unexplained weight gain, unexplained weight loss, heat intolerance, cold intolerance NEUROLOGIC: Absent: headache, focal weakness or paresthesias, dizziness, unsteady gait, seizure, mental status changes, bladder or bowel incontinence PSYCHIATRIC: Absent: anxiety, depression, suicidal or homicidal ideation, hallucinations. Is the patient limited Omani proficient: No *Physical Exam - Vital Signs Last Vital Signs Temp Pulse Resp BP Pulse Ox 97.6 F 85 20 147/75 98 07/06/18 06:06 07/06/18 06:06 07/06/18 06:06 07/06/18 06:06 07/06/18 06:06 - Physical Exam Comments: 07/06/18 06:08 GENERAL: Well developed, well nourished. Awake and alert. No acute distress. HEENT: Normocephalic, atraumatic. PERRLA, EOMI. No conjunctival pallor. Sclera are non- icteric. Moist mucous membranes. Oropharynx is clear. NECK: Supple. Full ROM. No JVD. Carotid pulses 2+ and symmetric, without bruits. No thyromegaly. No lymphadenopathy. CARDIOVASCULAR: Regular rate and rhythm. No murmurs, rubs, or gallops. Distal pulses are 2+ and symmetric. PULMONARY: No evidence of respiratory distress. Lungs clear to auscultation bilaterally. No wheezing, rales or rhonchi. ABDOMINAL: Soft. Non-tender. Non-distended. No rebound or guarding. No organomegaly. Normoactive bowel sounds. MUSCULOSKELETAL Normal range of motion at all joints. No bony deformities or tenderness. No CVA tenderness. EXTREMITIES: No cyanosis. No clubbing. No edema. No calf tenderness. SKIN: Warm and dry. Normal capillary refill. No rashes. No jaundice. NEUROLOGICAL: Alert, awake, appropriate. Cranial nerves 2-12 intact. No deficits to light touch and temperature in face, upper extremities and lower extremities. No motor deficits in the in face, upper extremities and lower extremities. Normoreflexic in the upper and lower extremities. Normal speech. Toes are down- going bilaterally. Gait is normal without ataxia. PSYCHIATRIC: Cooperative. Good eye contact. Appropriate mood and affect. Moderate Sedation - Procedure Monitoring Vital Signs: Procedure Monitoring Vital Signs Temperature 97.6 F 07/06/18 06:06 Pulse Rate 85 07/06/18 06:06 Respiratory Rate 20 07/06/18 06:06 Blood Pressure 147/75 07/06/18 06:06 O2 Sat by Pulse Oximetry (%) 98 07/06/18 06:06 ED Treatment Course - RADIOLOGY Radiology Studies Ordered: Category Date Time Status CHEST PA & LAT [RAD] Stat Radiology 07/06/18 05:50 Ordered SPINE- LUMBAR W/OB [RAD] Stat Radiology 07/06/18 06:41 Ordered SPINE-THORACIC [RAD] Stat Radiology 07/06/18 06:41 Ordered Radiograph Interpretation: 07/06/18 06:46 CXR: T Spine: LS spine *DC/Admit/Observation/Transfer - Referrals Referrals: Jeanmarie Travis MD [Primary Care Provider] - - Patient Instructions - Post Discharge Activity
[2018-07-06] MEDS ORDERED: morphine CARPU-JECT 2 MG/1 ML DISP.SYRIN IVPUSH ONE (06:47)
[2018-07-06] MEDS ORDERED: ONDANSETRON 4 MG/2 ML VIAL IVPUSH ONE (06:47)
[2018-07-06 06:48] LABS: EOS % 5.6 % (0-4.5); HEMATOCRIT 22.8 % (32.4-45.2); HEMOGLOBIN 7.8 GM/dL (10.7-15.3); LYMPH % 25.3 % (8-40); MCH 30.1 pg (25.7-33.7); MCHC 34.2 g/dl (32.0-36.0); MEAN CELL VOLUME 88.2 fl (80-96); MEAN PLT VOLUME 7.2 fl (7.5-11.1); MONO % 9.7 % (3.8-10.2); NEUT % 58.4 % (42.8-82.8); PLATELET COUNT 314 K/MM3 (134-434); RBC 2.58 M/mm3 (3.60-5.2); RDW 17.2 % (11.6-15.6); WHITE BLOOD COUNT 6.9 K/mm3 (4.0-10.0)
[2018-07-06 07:07] LABS: INR 1.08 (0.83-1.09); PROTHROMBIN TIME (PATIENT) 12.7 SEC (9.7-13.0)
[2018-07-06 07:32] LABS: ALK PHOS 255 U/L (45-117); ANION GAP 10 MMOL/L (8-16); BILIRUBIN,TOTAL 0.4 mg/dL (0.2-1); BLOOD UREA NITROGEN 70 mg/dL (7-18); CALCIUM 8.5 mg/dL (8.5-10.1); CHLORIDE 104 mmol/L (98-107); CO2 23 mmol/L (21-32); CREATININE 5.1 mg/dL (0.55-1.3); GLUCOSE,RANDOM 92 mg/dL (74-106); MAGNESIUM 2.6 mg/dL (1.8-2.4); POTASSIUM 3.6 mmol/L (3.5-5.1); SGOT/AST 19 U/L (15-37); SGPT/ALT 19 U/L (13-61); SODIUM 136 mmol/L (136-145); TOT PROT 6.2 g/dl (6.4-8.2)
--- NOTE | 2018-07-06 07:48 | PDOC ---
*Physical Exam - Vital Signs Last Vital Signs Temp Pulse Resp BP Pulse Ox 97.6 F 85 20 147/75 98 07/06/18 06:06 07/06/18 06:06 07/06/18 06:06 07/06/18 06:06 07/06/18 06:06 - Physical Exam General Appearance: Yes: Appropriately Dressed. No: Apparent Distress HEENT: positive: Normal Voice Neck: positive: Supple Respiratory/Chest: positive: Lungs Clear, Normal Breath Sounds. negative: Respiratory Distress Cardiovascular: positive: Regular Rate, S1, S2 Gastrointestinal/Abdominal: positive: Soft. negative: Tender Integumentary: positive: Dry, Warm Neurologic: positive: Fully Oriented, Alert, Normal Mood/Affect ED Treatment Course - LABORATORY CBC & Chemistry Diagram: 07/06/18 06:10 07/06/18 06:10 - ADDITIONAL ORDERS Additional order review: Laboratory Results 07/06/18 07/06/18 06:10 06:10 PT with INR 12.70 INR 1.08 Sodium 136 Potassium 3.6 Chloride 104 Carbon Dioxide 23 Anion Gap 10 BUN 70 H Creatinine 5.1 H Creat Clearance w eGFR 8.60 Random Glucose 92 Calcium 8.5 Magnesium 2.6 H Total Bilirubin 0.4 AST 19 ALT 19 Alkaline Phosphatase 255 H Creatine Kinase 37 Troponin I 0.03 Total Protein 6.2 L Albumin 3.0 L 07/06/18 06:10 RBC 2.58 L MCV 88.2 MCHC 34.2 RDW 17.2 H MPV 7.2 L Neutrophils % 58.4 Lymphocytes % 25.3 Monocytes % 9.7 Eosinophils % 5.6 H Basophils % 1.0 Medical Decision Making - Medical Decision Making 07/06/18 07:48 Pt signed out to me at 7 AM 63 yo F, smoker with a PMHx of anxiety, depression, HTN, HLD, CHF, COPD on oxygen, ESRD on HD, anemia, asthma, PUD, GIB UTI, chronic back pain and chest pain, here w/ L sided CP that stated 5 hrs prior to presentation. Patient has had multiple ER visits for same and was admitted last week for chest pain with negative workup and cleared from a cardiac standpoint to follow-up with Dr. Lucero for her cardiac care, which patient has not yet done. Echo recently normal. S/p negative stress test 2012. Pt unclear if she has had a more recent one. Pt stable here w/ unremarkable EKG this visit w/ first trop pending. Per prior team, patient can be discharged from ED if serial troponin negative 07/06/18 08:23 On reassessment now, patient denies chest pain, but complaining of a dry cough. Of note, chest x-ray read as unremarkable. Initial troponin negative. Hemoglobin 7.8 near pt's baseline of ~ 8. Per records, anemia thought to be due to iron deficiency and CKD. Patient on HD T/R/S, last dialyzed yesterday. Per records, usually gets epogen w/ dialysis and on iron pills. No SOB, weakness or dizziness at this time. Pt now requesting food. 2nd trop due at 10am. 07/06/18 11:46 Serial trop neg. Pt w/ no CP at this time. Stable for dc w/ strict instruction to follow up with cardiology *DC/Admit/Observation/Transfer Diagnosis at time of Disposition: Chest pain Qualifiers: Chest pain type: unspecified Qualified Code(s): R07.9 - Chest pain, unspecified - Discharge Dispostion Disposition: HOME Condition at time of disposition: Improved - Referrals Referrals: Jeanmarie Travis MD [Primary Care Provider] - Rafy Lucero MD [Staff Physician] - - Patient Instructions Printed Discharge Instructions: DI for Atypical Chest Pain Additional Instructions: Please follow up with Dr. Lucero of cardiology next week - Post Discharge Activity
[2018-07-06] MEDS ORDERED: guaiFENesin/CODEINE 10 ML UNIT-DOSE CUPS PO ONE (08:27)
[2018-07-06] MEDS ORDERED: ASPIRIN 81 MG CHEWABLE TABLETS ONE (08:32)
[2018-07-06] MEDS ORDERED: MORPHINE SULFATE 2 MG/ML VIAL ONE (08:32)
[2018-07-06] MEDS ORDERED: ONDANSETRON 4 MG/2 ML VIAL ONE (08:33)
[2018-07-06] MEDS ORDERED: guaiFENesin/CODEINE 5 ML UNIT-DOSE CUPS PO ONE (08:39)
--- NOTE | 2018-07-06 11:04 | EKG ---
Test Reason : Blood Pressure : / mmHG Vent. Rate : 080 BPM Atrial Rate : 080 BPM P-R Int : 178 ms QRS Dur : 084 ms QT Int : 398 ms P-R-T Axes : 059 011 070 degrees QTc Int : 459 ms NORMAL SINUS RHYTHM SEPTAL INFARCT , AGE UNDETERMINED ABNORMAL ECG WHEN COMPARED WITH ECG OF 01-JUL-2018 18:29, SEPTAL INFARCT IS NOW PRESENT Confirmed by MD GEORGINA, KIKI ([id number]) on 07/06/2018 11:03:56 AM Referred By: Confirmed By:KIKI ERICKSON MD
[2018-07-06] MEDS ORDERED: guaiFENesin 200 MG/10 ML 10 ML UNIT-DOSE CUPS PO ONE (15:50)
[2018-07-06] MEDS ORDERED: guaiFENesin 200 MG/10 ML 10 ML UNIT-DOSE CUPS ONE (16:15)
[2018-07-06 16:26] VITALS: BP 141/76; PULSE 16; TEMP 98.4
== END 2018-07-06 16:25 ==
LOC: JER 05:43
PROC: 3E033NZ Introduction of Analgesics, Hypnotics, Sedatives into Peripheral Vein, Percutaneous Approach (ICD-10-PCS; principal; 2018-07-06)
PROC: 3E033GC Introduction of Other Therapeutic Substance into Peripheral Vein, Percutaneous Approach (ICD-10-PCS; 2018-07-06)
DX: R07.9 Chest pain, unspecified (principal); I25.10 Atherosclerotic heart disease of native coronary artery without angina pectoris; I13.2 Hypertensive heart and chronic kidney disease with heart failure and with stage 5 chronic kidney disease, or end stage renal disease; N18.6 End stage renal disease; I50.9 Heart failure, unspecified; Z99.2 Dependence on renal dialysis; D64.9 Anemia, unspecified; J44.9 Chronic obstructive pulmonary disease, unspecified; Z99.81 Dependence on supplemental oxygen; F41.8 Other specified anxiety disorders; F32.9 Major depressive disorder, single episode, unspecified; Z87.19 Personal history of other diseases of the digestive system; M54.89 Other dorsalgia; G89.29 Other chronic pain
CPT/HCPCS: 36415; 71046-TC-FY; 72070-TC-FY; 72100-TC-FY; 80053; 82550; 83735; 84484; 85025; 85610; 87804; 93005; 93010; 96374; 96375; 99282-25

== ENCOUNTER 2018-08-09 14:17 | Inpatient (IN) | payer OTHER ==
[2018-08-09] MEDS ORDERED: ACETAMINOPHEN 1000 MG/100 ML VIAL (NON FORMULARY) IVPB ONE (15:28)
--- NOTE | 2018-08-09 15:34 | PDOC ---
Documentation entered by Anastacia Crouch SCRIBE, acting as scribe for Yanira Owen MD. Yanira Owen MD: This documentation has been prepared by the kevanibe, Anastacia Crouch SCRIBE, under my direction and personally reviewed by me in its entirety. I confirm that the documentation accurately reflects all work, treatment, procedures, and medical decision making performed by me. Attending Attestation - Resident Resident Name: Yanira Quiñones - ED Attending Attestation I have performed the following: I have examined & evaluated the patient, The case was reviewed & discussed with the resident, I agree w/resident's findings & plan, Exceptions are as noted - HPI HPI: 08/09/18 15:25 Patient is a 63 year old female, well known to the ED, with past medical history of hypertension, hyperlipidemia, COPD (on O2 PRN), CKD (on dialysis TTS ) who presents to the ED with complaints of back pain and shortness of breath. Reports back pain is chronic but today at noon became much worse with 9/10 in severity and has not taken anything for her pain. Denies any focal neurological deficits. She also reports shortness of breath requiring her to use her O2 at home more often. She reports an associated pleuritic chest pain and non- productive cough. Denies any fever, chills, NVD, or urinary complaints. She adds she did not go to dialysis today. - Physicial Exam PE: GENERAL: Awake, alert, and fully oriented, in no acute distress HEAD: No signs of trauma EYES: PERRLA, EOMI, sclera anicteric, conjunctiva clear ENT: Auricles normal inspection, hearing grossly normal, nares patent, oropharynx clear without exudates. Moist mucosa NECK: Normal ROM, supple, no lymphadenopathy, JVD, or masses LUNGS: Breath sounds equal, clear to auscultation bilaterally. No wheezes, and no crackles HEART: Regular rate and rhythm, normal S1 and S2, no murmurs, rubs or gallops ABDOMEN: Soft, nontender, normoactive bowel sounds. No guarding, no rebound. No masses EXTREMITIES: Normal range of motion, no edema. No clubbing or cyanosis. No cords, erythema, or tenderness NEUROLOGICAL: Cranial nerves II through XII grossly intact. Normal speech. Motor and sensation intact SKIN: Warm, Dry, normal turgor, no rashes or lesions noted. - Medical Decision Making Pt well-known to this ED, presenting with exacerbation of chronic back pain. She missed HD today for the same, had 30 min on , and 1 hour on Saturday. Poor adherence with outpatient treatment regimen. Will check labs including cardiac profile, CXR, and EKG. Will d/w renal based on CMP results.
--- NOTE | 2018-08-09 15:49 | PDOC ---
History of Present Illness - General Chief Complaint: Chest Pain Stated Complaint: CHEST PAIN Time Seen by Provider: 08/09/18 14:31 - History of Present Illness Initial Comments: 63yo F with PMH of ESRD on dialysis TuThSat, COPD, CHF, HTN, HLD, Asthma, chronic back pain coming from [facility] presenting with back pain and shortness of breath. Patient says she has had a cough for the past two days which is nonproductive. She endorses chest pain whenever she cough. The chest pain is nonradiating, but it palpable and pleuritic. Patient reports a smoking history. No personal or immediate family history of MD. No hemoptysis, no recent surgical history, no recent immobilization, no hormone use, no history of DVT or PE. Patient states her shortness of breath may be worse because her back pain is keeping her from taking a full breath. The back pain is rated 10/ 10 and present all along her back, most focal to the lumbar area in a band-like distribution. Patient denies saddle anesthesia, urinary/stool incontinence, no focal neurologic deficits, or unexpected weight loss. She has not taken anything at home for pain. No fevers, but endorses chills. Past History - Past Medical History Allergies/Adverse Reactions: Allergies Allergy/AdvReac Type Severity Reaction Status Date / Time levofloxacin [From Levaquin] Allergy Mild Itching Verified 08/09/18 14:25 Home Medications: Ambulatory Orders Acetaminophen [Tylenol] 650 mg PO QID 08/09/18 Albuterol Sulfate Inhaler - [Ventolin Hfa Inhaler -] 1 - 2 inh PO Q4H 08/09/18 Amlodipine Besylate [Norvasc -] 10 mg PO DAILY 08/09/18 Apixaban [Eliquis] 2.5 mg PO BID 08/09/18 Atorvastatin Ca [Lipitor] 20 mg PO HS 08/09/18 Calcium Carbonate/Simethicone [Maalox Advanced Tab Chew] 1 each PO BID 08/09/18 Docusate Sodium [Colace] 300 mg PO DAILY 08/09/18 Duloxetine HCl [Cymbalta -] 60 mg PO DAILY 08/09/18 Fluticasone/Salmeterol [Advair 250-50 Diskus] 1 each IH BID 08/09/18 Gabapentin [Neurontin] 200 mg PO DAILY 08/09/18 Lorazepam [Ativan] 1 mg PO DAILY 08/09/18 Melatonin 5 mg PO HS 08/09/18 Menthol [Bengay Ultra Strength] 1 each TP DAILY PRN 08/09/18 Metoprolol Tartrate [Lopressor -] 25 mg PO BID 08/09/18 Nicotine [Nicotine Patch 7 mg/24 hr] 1 each TD DAILY 08/09/18 Sennosides [Senna] 8.6 mg PO HS 08/09/18 Anemia: Yes Asthma: Yes Cancer: No Cardiac Disorders: Yes CVA: No COPD: Yes CHF: No DVT: No Dementia: No Diabetes: No Dialysis: Yes GI Disorders: Yes (bleeding ulcer) Disorders: Yes (KIDNEY STONE;) HTN: Yes Hypercholesterolemia: Yes Kidney Stones: Yes Liver Disease: No Psychiatric Problems: Yes (ANXIETY, DEPRESSION) Seizures: No Thyroid Disease: Yes (hypothyroid) - Surgical History Abdominal Surgery: No Appendectomy: No Cardiac Surgery: No Cholecystectomy: No Lung Surgery: No Neurologic Surgery: No Orthopedic Surgery: Yes (B/L hip replacement (rt 2009; left 2012)) - Immunization History Td Vaccination: Yes TDAP Vaccination: No Immunization Up to Date: Yes - Suicide/Smoking/Psychosocial Hx Smoking Status: Yes Smoking History: Unknown if ever smoked Years of Tobacco Use: 30 Have you smoked in the past 12 months: No Number of Cigarettes Smoked Daily: 6 If you are a former smoker, when did you quit?: refused booklet 07/21/14 Cigars Per Day: 0 'Breaking Loose' booklet given: 03/08/18 Hx Alcohol Use: No Drug/Substance Use Hx: No Substance Use Type: None Hx Substance Use Treatment: Yes Review of Systems - Review of Systems Comments:: Constitutional: no fever, +chills HEENT: no throat pain, no dysphagia Cardiovascular: +chest pain, no palpitations Respiratory: +cough, +shortness of breath Gastrointestinal: no abdominal pain, no nausea Genitourinary: no dysuria, no frequency Musculoskeletal: no myalgia, +back pain Skin: no rash, no itching Neurologic: no headache, no weakness *Physical Exam - Vital Signs Last Vital Signs Temp Pulse Resp BP Pulse Ox 98.8 F 80 18 142/60 93 L 08/09/18 14:20 08/09/18 14:20 08/09/18 14:20 08/09/18 14:20 08/09/18 14:20 - Physical Exam Comments: General: Awake, alert, and fully oriented, in no acute distress Head: No signs of trauma Eyes: EOMI, sclera anicteric ENT: Moist mucus membranes Neck: Normal ROM, supple Lungs: Lungs clear, Normal breath sounds Cardio: Regular rhythm, S1 and S2 present Abdomen: Soft, nontender. No guarding, no rebound, no masses Extremities: Normal range of motion, Distal pulses present SKIN: Warm, Dry, normal turgor Neurologic: Cranial nerves II through XII grossly intact. Normal speech. Equal strength in all four extremities Back: Tender to palpation all along the back but especially in lumbar area, midline and also overlying bilateral flanks, no step-offs/deformities/fluctuance ; no overlying wound or lesion; positive straight leg test bilaterally ED Treatment Course - LABORATORY CBC & Chemistry Diagram: 08/09/18 15:34 08/09/18 15:34 - RADIOLOGY Radiology Studies Ordered: Category Date Time Status CHEST X-RAY PORTABLE* [RAD] Stat Radiology 08/09/18 15:12 Ordered Medical Decision Making - Medical Decision Making 63yo F with PMH of ESRD on dialysis TuThSat, COPD, CHF, HTN, HLD, Asthma, chronic back pain coming from [facility] presenting with back pain and shortness of breath. DDX including but not limited to PNA, ACS, PE, COPD exacerbation, Viral syndrome DDX including but not limited to sciatica, cauda equina, spinal stenosis, epidural abscess 1g Ofirmev Cardiac workup EKG: rate 80, QTc 431, NSR, Normal ECG Given patient's exam with clear lungs and no fever, low suspicion for pneumonia. Patient without PE risk factors. Back pain is likely due to exacerbation of her chronic back pain, possibly due to exercise performed during rehab. No back pain red flags so will defer advanced imaging at this time. CBC WBC 7.8 K/mm3 (4.0-10.0) 08/09/18 15:34 RBC 2.76 M/mm3 (3.60-5.2) L 08/09/18 15:34 Hgb 7.6 GM/dL (10.7-15.3) L 08/09/18 15:34 Hct 23.5 % (32.4-45.2) L 08/09/18 15:34 MCV 84.9 fl (80-96) 08/09/18 15:34 MCH 27.6 pg (25.7-33.7) 08/09/18 15:34 MCHC 32.5 g/dl (32.0-36.0) 08/09/18 15:34 RDW 16.6 % (11.6-15.6) H 08/09/18 15:34 Plt Count 380 K/MM3 (134-434) D 08/09/18 15:34 MPV 7.4 fl (7.5-11.1) L 08/09/18 15:34 Absolute Neuts (auto) 4.6 K/mm3 (1.5-8.0) 08/09/18 15:34 Neutrophils % 59.2 % (42.8-82.8) 08/09/18 15:34 Lymphocytes % 19.3 % (8-40) D 08/09/18 15:34 Monocytes % 10.7 % (3.8-10.2) H 08/09/18 15:34 Eosinophils % 10.6 % (0-4.5) H D 08/09/18 15:34 Basophils % 0.2 % (0-2.0) 08/09/18 15:34 Nucleated RBC % 0 % (0-0) 08/09/18 15:34 No anemia Hgb at patient's baseline CMP Sodium 138 mmol/L (136-145) 08/09/18 15:34 Potassium 4.8 mmol/L (3.5-5.1) 08/09/18 15:34 Chloride 106 mmol/L (98-107) 08/09/18 15:34 Carbon Dioxide 22 mmol/L (21-32) 08/09/18 15:34 Anion Gap 9 MMOL/L (8-16) 08/09/18 15:34 BUN 63 mg/dL (7-18) H 08/09/18 15:34 Creatinine 6.3 mg/dL (0.55-1.3) H 08/09/18 15:34 Creat Clearance w eGFR 6.74 (>60) 08/09/18 15:34 Random Glucose 92 mg/dL (74-106) 08/09/18 15:34 Calcium 8.6 mg/dL (8.5-10.1) 08/09/18 15:34 Total Bilirubin 0.4 mg/dL (0.2-1) 08/09/18 15:34 AST 15 U/L (15-37) 08/09/18 15:34 ALT 12 U/L (13-61) L 08/09/18 15:34 Alkaline Phosphatase 251 U/L (45-117) H 08/09/18 15:34 Creatine Kinase 43 U/L (26-192) 08/09/18 15:34 Troponin I < 0.02 ng/ml (0.00-0.05) 08/09/18 15:34 Total Protein 6.5 g/dl (6.4-8.2) 08/09/18 15:34 Albumin 2.8 g/dl (3.4-5.0) L 08/09/18 15:34 Electrolytes at patient's baseline Tpn undetectable K=4.8 Patient does not appear fluid overloaded. Called [facility]. Patient did not have dialysis today. She only had 20 minutes on and 1 hour on Saturday. They are unable to accomodate patient for dialysis before her next scheduled session on Saturday. Dr. Owen contacted Dr. Coe who thinks patient cannot wait to make it to dialysis until next week Plan to admit for dialysis 08/09/18 17:16 Dr. Owen discussed case with Dr. Saulo Guzman who accepted patient for admission. 08/09/18 17:49 *DC/Admit/Observation/Transfer Diagnosis at time of Disposition: Missed dialysis - Discharge Dispostion Condition at time of disposition: Guarded Decision to Admit order: Yes - Referrals - Patient Instructions - Post Discharge Activity
[2018-08-09 15:51] LABS: BASO % 0.2 % (0-2.0); EOS % 10.6 % (0-4.5); HEMATOCRIT 23.5 % (32.4-45.2); HEMOGLOBIN 7.6 GM/dL (10.7-15.3); LYMPH % 19.3 % (8-40); MCH 27.6 pg (25.7-33.7); MCHC 32.5 g/dl (32.0-36.0); MEAN CELL VOLUME 84.9 fl (80-96); MEAN PLT VOLUME 7.4 fl (7.5-11.1); MONO % 10.7 % (3.8-10.2); NEUT % 59.2 % (42.8-82.8); PLATELET COUNT 380 K/MM3 (134-434); RBC 2.76 M/mm3 (3.60-5.2); RDW 16.6 % (11.6-15.6); WHITE BLOOD COUNT 7.8 K/mm3 (4.0-10.0)
[2018-08-09 16:29] LABS: ALBUMIN 2.8 g/dl (3.4-5.0); ALK PHOS 251 U/L (45-117); ANION GAP 9 MMOL/L (8-16); BILIRUBIN,TOTAL 0.4 mg/dL (0.2-1); BLOOD UREA NITROGEN 63 mg/dL (7-18); CALCIUM 8.6 mg/dL (8.5-10.1); CHLORIDE 106 mmol/L (98-107); CO2 22 mmol/L (21-32); CREATININE 6.3 mg/dL (0.55-1.3); GLUCOSE,RANDOM 92 mg/dL (74-106); POTASSIUM 4.8 mmol/L (3.5-5.1); SGOT/AST 15 U/L (15-37); SGPT/ALT 12 U/L (13-61); SODIUM 138 mmol/L (136-145); TOT PROT 6.5 g/dl (6.4-8.2)
[2018-08-09] MEDS ORDERED: LIDOCAINE 5% TOPICAL PATCH TP ONE (19:07)
[2018-08-09] MEDS: FLUTICASONE/SALMETEROL 100 MCG/50 MCG DISKUS IH SCH (21:05)
[2018-08-09] MEDS: LORazepam 1 MG TABLET PO PRN (21:06)
[2018-08-09] MEDS: MELATONIN 5 MG TABLETS PO PRN (21:06)
--- NOTE | 2018-08-09 21:46 | HP ---
Admitting History and Physical - Primary Care Physician PCP: Dr. Marie - Admission Chief Complaint: Missed dialysis due to back pain History of Present Illness: 63 yo F with pmhx of COPD, CHF, HLD, HTN, GIB- ulcers, ESRD on dialysis Sat/Sat/ Sat via RUE AVF for past 5 months who was sent to ED from her SNF/rehab facility where pt has been residing and receiving on site dialysis after she reported having too much pain to tolerate dialysis. Per reports from SNF pt previously had abbreviated dialysis sessions on both Saturday and this week. Upon questioning pt she is unclear about duration of dialysis and does not recall if she completed the full sessions. At present she reports having pain in her lower back but denies any fever, chills, N/V/D, chest pain, palpitations, SOB, orthopnea, PND or cough. Patient reports she continues to void up to 5 times a day. 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 No: Pulmonary Embolus, Pulmonary Fibrosis, Sleep Apnea Gastrointestinal: Yes: Gastritis Renal/: Yes: Renal Inusuff, Hemodialysis ...LMP: 07/25/12 Heme/Onc: Yes: Other (history ovarian cancer) Infectious Disease: Yes: MRSA Psych: Yes: Anxiety, Depression Musculoskeletal: Yes: Chronic low back pain Endocrine: Yes: Hyperthyroidism Additional Past Medical History: COPD, CHF, HLD, HTN, GIB- ulcers, ESRD on dialysis T/T/S - Past Surgical History Past Surgical History: Yes: AV Fistula/Graft, Joint Replacement (hip replacement ) Additional Past Surgical History: s/p tonsillectomy, , AVF creation in RUE - Advance Directives Advance Directives: Yes: MOLST - Smoking History Smoking history: Former smoker (hx of tobacco smoking now on nictone patch) Have you smoked in the past 12 months: Yes Aproximately how many cigarettes per day: 6 If you are a former smoker, when did you quit?: refused booklet 07/21/14 - Alcohol/Substance Use History of Substance Use: reports: Marijuana - Social History ADL: Independent Occupation: not working, SSI History of Recent Travel: No Other Social History: Pt currently residing at in rehab/SNF where she receives onsite HD Home Medications - Allergies Allergies/Adverse Reactions: Allergies Allergy/AdvReac Type Severity Reaction Status Date / Time levofloxacin [From Levaquin] Allergy Mild Itching Verified 08/09/18 14:25 - Home Medications Home Medications: Ambulatory Orders Acetaminophen [Tylenol] 650 mg PO QID 08/09/18 Albuterol Sulfate Inhaler - [Ventolin Hfa Inhaler -] 1 - 2 inh PO Q4H 08/09/18 Amlodipine Besylate [Norvasc -] 10 mg PO DAILY 08/09/18 Apixaban [Eliquis] 2.5 mg PO BID 08/09/18 Atorvastatin Ca [Lipitor] 20 mg PO HS 08/09/18 Calcium Carbonate/Simethicone [Maalox Advanced Tab Chew] 1 each PO BID 08/09/18 Docusate Sodium [Colace] 300 mg PO DAILY 08/09/18 Duloxetine HCl [Cymbalta -] 60 mg PO DAILY 08/09/18 Fluticasone/Salmeterol [Advair 250-50 Diskus] 1 each IH BID 08/09/18 Gabapentin [Neurontin] 200 mg PO DAILY 08/09/18 Lorazepam [Ativan] 1 mg PO DAILY 08/09/18 Melatonin 5 mg PO HS 08/09/18 Menthol [Bengay Ultra Strength] 1 each TP DAILY PRN 08/09/18 Metoprolol Tartrate [Lopressor -] 25 mg PO BID 08/09/18 Nicotine [Nicotine Patch 7 mg/24 hr] 1 each TD DAILY 08/09/18 Sennosides [Senna] 8.6 mg PO HS 08/09/18 Family Disease History - Family Disease History Family Disease History: Other: Father (alive), Mother (alive), Sister (alive), Son (23 yo old - alive - healthy) Other Family History: Pt unable to provide fam hx Review of Systems - Review of Systems Constitutional: reports: No Symptoms Eyes: reports: No Symptoms HENT: reports: No Symptoms Neck: reports: No Symptoms Cardiovascular: reports: No Symptoms Respiratory: reports: No Symptoms Gastrointestinal: reports: No Symptoms Genitourinary: reports: No Symptoms Breasts: reports: No Symptoms Reported Musculoskeletal: reports: Back Pain Physical Examination Vital Signs: Vital Signs Temperature 97.9 F 08/09/18 20:20 Pulse Rate 83 08/09/18 20:20 Respiratory Rate 20 08/09/18 20:20 Blood Pressure 148/76 08/09/18 20:20 O2 Sat by Pulse Oximetry (%) 95 08/09/18 20:20 Findings/Remarks: Gen: Elderly woman in no distress, seated in stretcher, eating ice chips, AAOx3 HEENT: EOMI, MMM, no scleral pallor or icterus, clear oropharynx Neck: No JVD, no cervical LAD CVS: NRRR, S1 &S2nrml, no murmurs, rubs Resp: CTA b/l no wheezes, rales, rhonchi Abd: Soft, NT, ND, normoactive BS Ext: warm, well perfused, no cyanosis, 2+ radial & DP pulses b/l, RUE AVF in place w/palpable thrill no audible bruits Labs: CBC, BMP 08/09/18 15:34 08/09/18 15:34 Problem List - Problems (1) DVT prophylaxis Assessment/Plan: - resume apixiban 2.5mg BID as per home Code(s): [id number] - (2) Missed dialysis Assessment/Plan: - Nephrology consulted to arrange for in hospital dialysis & pt may be able to be discharged back to rehab/SNF post HD session. Code(s): ERT8815 - (3) COPD (chronic obstructive pulmonary disease) Assessment/Plan: c/w nebs & Advair BID monitor O2 sat Code(s): J44.9 - CHRONIC OBSTRUCTIVE PULMONARY DISEASE, UNSPECIFIED Qualifiers: COPD type: unspecified COPD Qualified Code(s): J44.9 - Chronic obstructive pulmonary disease, unspecified (4) Chronic low back pain Assessment/Plan: prescribed tylenol 650mg q6hPRN for abd pain & lidocaine patch for low back pain c/w gabapentin 100mg daily given reduced eGFR; c/w cymbalta 60mg daily given ESRD avoid NSAIDs & oxycodone/oxycontin- given impaired clearance Code(s): M54.5 - LOW BACK PAIN; G89.29 - OTHER CHRONIC PAIN Qualifiers: Back pain laterality: unspecified Sciatica presence: unspecified whether sciatica present Qualified Code(s): M54.5 - Low back pain; G89.29 - Other chronic pain (5) ESRD (end stage renal disease) on dialysis Assessment/Plan: - pt due for dialysis today, Renal consulted to coordinate for dialysis given missed session today and reported previous abbreviated sessions earlier in the week - maintain on renal diet - c/w amlodipine & metoprolol daily - c/w atorvastatin 20mg qHS -check CBC, Iron, Ferritin studies for CKD Anemia - Check Vit D25oh, PTH, calc & phos - monitor I/O's Code(s): N18.6 - END STAGE RENAL DISEASE; Z99.2 - DEPENDENCE ON RENAL DIALYSIS (6) Smoker unmotivated to quit Assessment/Plan: - resume 7mg nicotine patch Code(s): F17.200 - NICOTINE DEPENDENCE, UNSPECIFIED, UNCOMPLICATED
[2018-08-09] MEDS ORDERED: GABAPENTIN 100 MG CAPSULE (FP) PO ONE (22:20)
[2018-08-09] MEDS: APIXABAN 2.5 MG TABLET PO SCH (22:37)
[2018-08-09] MEDS: ACETAMINOPHEN 325 MG TABLET (FP) PO PRN (22:49)
[2018-08-10] MEDS: ACETAMINOPHEN 325 MG TABLET (FP) PO PRN ×3 (05:48→20:39)
[2018-08-10] MEDS: ALBUTEROL SO4 8 GM HFA INHALER IH PRN (05:51)
[2018-08-10] MEDS ORDERED: HEPARIN NA (PORCINE) 5,000 UNITS/ML 1ML VIAL SQ SCH (06:00)
[2018-08-10] MEDS ORDERED: LIDOCAINE PATCH REMOVAL MC ONE (07:00)
[2018-08-10] MEDS ORDERED: PT OWN MED DRAWER 7, Y5N ONE ×2 (07:07→14:23)
[2018-08-10] MEDS: LORazepam 1 MG TABLET PO PRN (07:30)
--- NOTE | 2018-08-10 07:55 | CON.NEP ---
Consult Consult Specialty:: nephrology Reason for Consultation:: esrd - History of Present Illness Chief Complaint: chest pain History of Present Illness: 63 yo F with pmhx of COPD, CHF, HLD, HTN, GIB- ulcers, ESRD on dialysis Sat/Sat/ Sat via RUE AVG for past 5 months who was sent to ED from her SNF/rehab facility where pt has been residing and receiving on site dialysis after she reported having too much pain to tolerate dialysis. Per reports from SNF pt previously had abbreviated dialysis sessions on both Saturday and this week. Upon questioning pt she is unclear about duration of dialysis and does not recall if she completed the full sessions. At present she reports having pain in her lower back but denies any fever, chills, N/V/D, chest pain, palpitations, SOB, orthopnea, PND or cough. 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 No: Pulmonary Embolus, Pulmonary Fibrosis, Sleep Apnea Gastrointestinal: Yes: Gastritis Renal/: Yes: Renal Inusuff, Hemodialysis ...LMP: 07/25/12 Infectious Disease: Yes: MRSA Psych: Yes: Anxiety, Depression Musculoskeletal: Yes: Chronic low back pain Endocrine: Yes: Hyperthyroidism - Past Surgical History Past Surgical History: Yes: AV Fistula/Graft, Joint Replacement (hip replacement ) - Alcohol/Substance Use Hx Alcohol Use: No History of Substance Use: reports: Marijuana - Smoking History Smoking history: Former smoker (hx of tobacco smoking now on nictone patch) Have you smoked in the past 12 months: Yes Aproximately how many cigarettes per day: 6 If you are a former smoker, when did you quit?: refused booklet 07/21/14 - Social History Usual Living Arrangement: With Child ADL: Independent Occupation: not working, SSI History of Recent Travel: No Home Medications - Allergies Allergies/Adverse Reactions: Allergies Allergy/AdvReac Type Severity Reaction Status Date / Time levofloxacin [From Levaquin] Allergy Mild Itching Verified 08/09/18 14:25 - Home Medications Home Medications: Ambulatory Orders Acetaminophen [Tylenol] 650 mg PO QID 08/09/18 Albuterol Sulfate Inhaler - [Ventolin Hfa Inhaler -] 1 - 2 inh PO Q4H 08/09/18 Amlodipine Besylate [Norvasc -] 10 mg PO DAILY 08/09/18 Apixaban [Eliquis] 2.5 mg PO BID 08/09/18 Atorvastatin Ca [Lipitor] 20 mg PO HS 08/09/18 Calcium Carbonate/Simethicone [Maalox Advanced Tab Chew] 1 each PO BID 08/09/18 Docusate Sodium [Colace] 300 mg PO DAILY 08/09/18 Duloxetine HCl [Cymbalta -] 60 mg PO DAILY 08/09/18 Fluticasone/Salmeterol [Advair 250-50 Diskus] 1 each IH BID 08/09/18 Gabapentin [Neurontin] 200 mg PO DAILY 08/09/18 Lorazepam [Ativan] 1 mg PO DAILY 08/09/18 Melatonin 5 mg PO HS 08/09/18 Menthol [Bengay Ultra Strength] 1 each TP DAILY PRN 08/09/18 Metoprolol Tartrate [Lopressor -] 25 mg PO BID 08/09/18 Nicotine [Nicotine Patch 7 mg/24 hr] 1 each TD DAILY 08/09/18 Sennosides [Senna] 8.6 mg PO HS 08/09/18 Family Disease History - Family Disease History Family Disease History: Other: Father (alive), Mother (alive), Sister (alive), Son (23 yo old - alive - healthy) Other Family History: Pt unable to provide fam hx Review of Systems - Review of Systems Constitutional: reports: No Symptoms Eyes: reports: No Symptoms HENT: reports: No Symptoms Neck: reports: No Symptoms Cardiovascular: reports: Chest Pain Respiratory: reports: No Symptoms Gastrointestinal: reports: No Symptoms Genitourinary: reports: No Symptoms Breasts: reports: No Symptoms Reported Musculoskeletal: reports: Back Pain Integumentary: reports: No Symptoms Neurological: reports: No Symptoms Endocrine: reports: No Symptoms Hematology/Lymphatic: reports: No Symptoms Psychiatric: reports: No Symptoms Nephrology Consult - Height Height: 5 ft 3 in - Weight Weight: 142 lb 2 oz - BMI Body Mass Index (BMI): 25.2 - Lab Results CBC,BMP: CBC, BMP 08/09/18 15:34 08/09/18 15:34 Anion Gap: Anion Gap Anion Gap 9 MMOL/L (8-16) 08/09/18 15:34 - Imaging Chest X-ray: Report Reviewed - Physical Examination Vital Signs: Vital Signs Temperature 98.1 F 08/10/18 05:34 Pulse Rate 84 08/10/18 05:34 Respiratory Rate 20 08/10/18 05:34 Blood Pressure 160/79 08/10/18 05:34 O2 Sat by Pulse Oximetry (%) 95 08/09/18 21:00 Constitutional: Yes: Well Nourished, No Distress, Anxious Eyes: Yes: Conjunctiva Clear HENT: Yes: Atraumatic, Normocephalic Neck: Yes: Supple, Trachea Midline Cardiovascular: Yes: Regular Rate and Rhythm Respiratory: Yes: Regular, CTA Bilaterally Gastrointestinal: Yes: Normal Bowel Sounds, Soft, Tenderness (ruq) Renal/: No: Bladder Distention, CVA Tenderness - Right Access for Hemodialysis: AV Graft Musculoskeletal: Yes: WNL Extremities: Yes: WNL Edema: No Integumentary: Yes: WNL Neurological: Yes: Alert, Oriented Psychiatric: Yes: Alert Assessment/Plan IMPRESSION esrd anxiety disorder anemia htn PLAN she appears stable will order dialysis for tomorrow biliary tract sono especially in view of high alq phos and RUQ tendernes MV
[2018-08-10] MEDS ORDERED: EPOETIN ALFA 2,000 UNIT/1 ML VIAL SQ ONE ×2 (07:59→11:00)
[2018-08-10] MEDS ORDERED: SODIUM CHLORIDE 250 ML IV PRN (07:59)
[2018-08-10 09:01] LABS: HEMATOCRIT 22.1 % (32.4-45.2); HEMOGLOBIN 7.2 GM/dL (10.7-15.3); MCH 27.7 pg (25.7-33.7); MCHC 32.5 g/dl (32.0-36.0); MEAN CELL VOLUME 85.4 fl (80-96); MEAN PLT VOLUME 7.6 fl (7.5-11.1); PLATELET COUNT 384 K/MM3 (134-434); RBC 2.58 M/mm3 (3.60-5.2); RDW 16.8 % (11.6-15.6); WHITE BLOOD COUNT 9.2 K/mm3 (4.0-10.0)
[2018-08-10 09:11] LABS: ANION GAP 13 MMOL/L (8-16); BLOOD UREA NITROGEN 77 mg/dL (7-18); CALCIUM 9.1 mg/dL (8.5-10.1); CHLORIDE 106 mmol/L (98-107); CO2 16 mmol/L (21-32); CREATININE 6.8 mg/dL (0.55-1.3); GLUCOSE,RANDOM 91 mg/dL (74-106); PHOSPHOROUS 6.3 mg/dL (2.5-4.9); POTASSIUM 4.8 mmol/L (3.5-5.1); SODIUM 135 mmol/L (136-145)
--- NOTE | 2018-08-10 11:36 | PN ---
Progress Note (short form) - Note Progress Note: pt seen/ examined in dialysis anxious Vital Signs Temp 98.0 F 08/10/18 10:20 Pulse 84 08/10/18 11:25 Resp 18 08/10/18 11:25 BP 155/65 08/10/18 11:25 Pulse Ox 95 08/10/18 08:18 Intake & Output 08/09/18 08/09/18 08/10/18 11:59 23:59 11:59 Weight 136 lb 142 lb 2 oz Other: Voiding Method Toilet Toilet # Unmeasured Voids Void 4 Height 5 ft 3 in 5 ft 3 in Body Mass Index (BMI) 24.0 25.2 Weight Measurement Method Built in Bedscale Built in Bedscale Weight Measurement Method Est/Stated by Patient Active Medications Acetaminophen (Tylenol -) 650 mg PO Q4H PRN PRN Reason: PAIN LEVEL 4 - 6 Last Admin: 08/10/18 05:48 Dose: 650 mg Albuterol Sulfate (Ventolin Hfa Inhaler -) 2 puff IH Q4H PRN PRN Reason: SHORT OF BREATH/WHEEZING Last Admin: 08/10/18 05:51 Dose: 2 puff Amlodipine Besylate (Norvasc -) 10 mg PO DAILY [facility] Apixaban (Eliquis -) 2.5 mg PO BID [facility] Last Admin: 08/09/18 22:37 Dose: 2.5 mg Atorvastatin Calcium (Lipitor -) 20 mg PO HS [facility] Duloxetine HCl (Cymbalta -) 60 mg PO DAILY [facility] Sodium Chloride (Normal Saline -) 250 mls @ 3,000 mls/hr IV PRN PRN PRN Reason: Hypotension during Dialysis Stop: 08/11/18 07:59 Lorazepam (Ativan -) 1 mg PO DAILY PRN PRN Reason: ANXIETY Stop: 08/10/18 20:20 Last Admin: 08/10/18 07:30 Dose: 1 mg Melatonin (Melatonin) 5 mg PO HS PRN PRN Reason: INSOMNIA Last Admin: 08/09/18 21:06 Dose: 5 mg Metoprolol Succinate (Toprol Xl -) 25 mg PO DAILY [facility] Nicotine (Nicoderm Patch -) 7 mg TD DAILY [facility] Fluticasone/Salmeterol (Advair 100mcg/50mcg -) 1 puff IH BID [facility] Last Admin: 08/09/18 21:05 Dose: Not Given Senna (Senna -) 1 tab PO BID [facility] CBC, BMP 08/10/18 06:30 08/10/18 06:30 Physical Exam. Awake/ anxious s1 s2 RRR Lungs decreased breath sounds at bases Abd- soft, obese, ext- no edema Neuro- awake PLAN Discussed compliance stressed smoking cessation anemia -- monitor will follow Problem List - Problems (1) Smoker unmotivated to quit Code(s): F17.200 - NICOTINE DEPENDENCE, UNSPECIFIED, UNCOMPLICATED (2) Missed dialysis Code(s): GYY5154 - (3) Anemia Code(s): D64.9 - ANEMIA, UNSPECIFIED (4) COPD (chronic obstructive pulmonary disease) Code(s): J44.9 - CHRONIC OBSTRUCTIVE PULMONARY DISEASE, UNSPECIFIED Qualifiers: COPD type: unspecified COPD Qualified Code(s): J44.9 - Chronic obstructive pulmonary disease, unspecified (5) ESRD (end stage renal disease) on dialysis Code(s): N18.6 - END STAGE RENAL DISEASE; Z99.2 - DEPENDENCE ON RENAL DIALYSIS
--- NOTE | 2018-08-10 13:00 | EKG ---
Test Reason : Blood Pressure : / mmHG Vent. Rate : 080 BPM Atrial Rate : 080 BPM P-R Int : 198 ms QRS Dur : 078 ms QT Int : 374 ms P-R-T Axes : 045 024 069 degrees QTc Int : 431 ms NORMAL SINUS RHYTHM NORMAL ECG Confirmed by MD DYLON, SHOAIB ([id number]) on 08/10/2018 12:59:47 PM Referred By: Confirmed By:SHOAIB OSBORNE MD
[2018-08-10] MEDS: NICOTINE 7 MG/24 HOURS TOPICAL PATCH TD SCH (14:29)
[2018-08-10] MEDS: FLUTICASONE/SALMETEROL 100 MCG/50 MCG DISKUS IH SCH ×2 (14:29→21:22)
[2018-08-10] MEDS: amLODIPine BESYLATE 10 MG TABLET (FP) PO SCH (14:30)
[2018-08-10] MEDS: DULoxetine HCL 30 MG CAPSULE.DR (FP) PO SCH (14:30)
[2018-08-10] MEDS: metoPROLOL SUCCINATE 25 MG TAB.SR.24H (FP) PO SCH (14:30)
[2018-08-10] MEDS: SENNOSIDES 8.6MG TABLET (FP) PO SCH ×2 (14:30→21:22)
[2018-08-10] MEDS: APIXABAN 2.5 MG TABLET PO SCH ×2 (14:30→21:22)
[2018-08-10] MEDS ORDERED: LORazepam 1 MG TABLET PO ONE (18:30)
[2018-08-10] MEDS: MELATONIN 5 MG TABLETS PO PRN (20:39)
[2018-08-10] MEDS: ATORVASTATIN CA 20 MG TABLET (FP) PO SCH (21:22)
[2018-08-11] MEDS ORDERED: PT OWN MED DRAWER 7, Y5N ONE (09:34)
[2018-08-11] MEDS: amLODIPine BESYLATE 10 MG TABLET (FP) PO SCH (09:36)
[2018-08-11] MEDS: metoPROLOL SUCCINATE 25 MG TAB.SR.24H (FP) PO SCH (09:36)
[2018-08-11] MEDS: FLUTICASONE/SALMETEROL 100 MCG/50 MCG DISKUS IH SCH ×2 (09:36→21:14)
[2018-08-11] MEDS: SENNOSIDES 8.6MG TABLET (FP) PO SCH ×2 (09:36→21:14)
[2018-08-11] MEDS: APIXABAN 2.5 MG TABLET PO SCH (09:37)
[2018-08-11] MEDS: NICOTINE 7 MG/24 HOURS TOPICAL PATCH TD SCH (09:37)
[2018-08-11] MEDS: DULoxetine HCL 30 MG CAPSULE.DR (FP) PO SCH (09:37)
--- NOTE | 2018-08-11 10:01 | PN ---
Progress Note (short form) - Note Progress Note: pt seen/ examined had dialysis yesterday feels much better dont want to go back to [facility]-- wants to go home Vital Signs Temp 98 F 08/11/18 05:23 Pulse 85 08/11/18 05:23 Resp 18 08/11/18 05:23 BP 150/76 08/11/18 05:23 Pulse Ox 95 08/10/18 22:48 Intake & Output 08/10/18 08/10/18 08/11/18 11:59 23:59 11:59 Intake Total 400 Balance 400 Weight 142 lb 2 oz 132 lb Intake: Oral 400 Other: Voiding Method Toilet Toilet # Unmeasured Voids Void 1 1 2 Bowel Movement No No # Bowel Movements 0 Height 5 ft 3 in Body Mass Index (BMI) 25.2 Weight Measurement Method Built in Bedscale Built in Bedscale Active Medications Acetaminophen (Tylenol -) 650 mg PO Q4H PRN PRN Reason: PAIN LEVEL 4 - 6 Last Admin: 08/10/18 20:39 Dose: 650 mg Albuterol Sulfate (Ventolin Hfa Inhaler -) 2 puff IH Q4H PRN PRN Reason: SHORT OF BREATH/WHEEZING Last Admin: 08/10/18 05:51 Dose: 2 puff Amlodipine Besylate (Norvasc -) 10 mg PO DAILY [facility] Last Admin: 08/11/18 09:36 Dose: 10 mg Apixaban (Eliquis -) 2.5 mg PO BID [facility] Last Admin: 08/11/18 09:37 Dose: 2.5 mg Atorvastatin Calcium (Lipitor -) 20 mg PO HS [facility] Last Admin: 08/10/18 21:22 Dose: 20 mg Duloxetine HCl (Cymbalta -) 60 mg PO DAILY [facility] Last Admin: 08/11/18 09:37 Dose: 60 mg Melatonin (Melatonin) 5 mg PO HS PRN PRN Reason: INSOMNIA Last Admin: 08/10/18 20:39 Dose: 5 mg Metoprolol Succinate (Toprol Xl -) 25 mg PO DAILY [facility] Last Admin: 08/11/18 09:36 Dose: 25 mg Nicotine (Nicoderm Patch -) 7 mg TD DAILY [facility] Last Admin: 08/11/18 09:37 Dose: 7 mg Fluticasone/Salmeterol (Advair 100mcg/50mcg -) 1 puff IH BID [facility] Last Admin: 08/11/18 09:36 Dose: 1 puff Senna (Senna -) 1 tab PO BID [facility] Last Admin: 08/11/18 09:36 Dose: 1 tab CBC, BMP 08/10/18 06:30 08/10/18 06:30 Physical Exam. Awake/ comfortable. s1 s2 RRR Lungs decreased breath sounds-- better Abd- soft, obese, NT No edema Neuro- awake PLAN Clinically better compliance issues smoking cessation anemia will consult gi will follow
--- NOTE | 2018-08-11 10:51 | CONSULT ---
Consultation: GI consult REQUESTING PROVIDER: Dr Camacho Stevenson CONSULT REQUEST: We have been asked to medically evaluate this patient for ( Anemia ). HISTORY OF PRESENT ILLNESS: 63 yo F with pmhx of COPD, CHF, HLD, HTN, GIB- ulcers, ESRD on dialysis Sat/Sat/ Sat via [facility] AVF for past 5 months who was sent to ED from her SNF/rehab facility where pt has been residing and receiving on site dialysis after she reported having too much pain to tolerate dialysis. Per reports from SNF pt previously had abbreviated dialysis sessions on both Saturday and this week. Upon questioning pt she is unclear about duration of dialysis and does not recall if she completed the full sessions. At present she reports having pain in her lower back but denies any fever, chills, N/V/D, chest pain, palpitations, SOB, orthopnea, PND or cough. Patient reports she continues to void up to 5 times a day. Pt denies any dizziness, or light headedness when she get out of bed , she denies nay headache , palpitation , sob denies any fatigue pt reports she like to eat ice chipps but denies any other eating habits like eating muddy pt denies any blood in the stool or urine ,denies nay hematemesis , pt does not know how long she has been taking Eliquis BID pt denies any ibuprofen or NSAIDS recent use pt denies any abdominal pain pt has ahistory of upper GI bleed in the past , she reports little amount , Last Endoscopy from [facility] in 2013 with no source of bleeding or ulcers but Colonoscopy in 2014 showed some polyps 5mm and 7 mm in transverse and sigmoid colon REVIEW OF SYSTEMS: CONSTITUTIONAL: Absent: fever, chills, diaphoresis, generalized weakness, malaise, loss of appetite, weight change HEENT: Absent: rhinorrhea, nasal congestion, throat pain, throat swelling, difficulty swallowing, mouth swelling, ear pain, eye pain, visual changes CARDIOVASCULAR: Absent: chest pain, syncope, palpitations, irregular heart rate, lightheadedness , peripheral edema RESPIRATORY: Absent: cough, shortness of breath, dyspnea with exertion, orthopnea, wheezing, stridor, hemoptysis GASTROINTESTINAL: Absent: abdominal pain, abdominal distension, nausea, vomiting, diarrhea, constipation, melena, hematochezia GENITOURINARY: Absent: dysuria, frequency, urgency, hesitancy, hematuria, flank pain, genital pain MUSCULOSKELETAL: Absent: myalgia, arthralgia, joint swelling, back pain, neck pain SKIN: Absent: rash, itching, pallor HEMATOLOGIC/IMMUNOLOGIC: Absent: easy bleeding, easy bruising, lymphadenopathy, frequent infections ENDOCRINE: Absent: unexplained weight gain, unexplained weight loss, heat intolerance, cold intolerance NEUROLOGIC: Absent: headache, focal weakness or paresthesias, dizziness, unsteady gait, seizure, mental status changes, bladder or bowel incontinence PSYCHIATRIC: Absent: anxiety, depression, suicidal or homicidal ideation, hallucinations. PHYSICAL EXAMINATION Vital Signs - 24 hr 08/10/18 08/10/18 08/10/18 10:55 11:25 11:55 Temperature Pulse Rate 83 84 82 Respiratory 18 18 18 Rate Blood Pressure 148/67 155/65 147/66 O2 Sat by Pulse Oximetry (%) 08/10/18 08/10/18 08/10/18 12:25 12:55 13:25 Temperature Pulse Rate 80 84 80 Respiratory 18 18 18 Rate Blood Pressure 144/71 165/85 156/69 O2 Sat by Pulse Oximetry (%) 08/10/18 08/10/18 08/10/18 13:46 14:35 22:48 Temperature 98.4 F Pulse Rate 89 101 H Respiratory 18 18 Rate Blood Pressure 139/63 142/80 O2 Sat by Pulse 95 Oximetry (%) 08/11/18 08/11/18 08/11/18 05:23 09:00 10:00 Temperature 98 F 98.4 F Pulse Rate 85 80 Respiratory 18 20 Rate Blood Pressure 150/76 141/71 O2 Sat by Pulse 95 Oximetry (%) GENERAL: alert oriented , poor historian in NAD HEAD: NC/AT EYES: EOMI, Conjunctiva clear, sclera anicteric ENT: moist mucous membrane NECK: Supple, no JVD LUNGS: CTA B/L, no crackles no wheezing no accessory muscle use. HEART: RRR,, normal s1, s2,holosystolic murmur no /R/G ABDOMEN: Soft, ND, NT, +BS 4 Q, no CVA Tenderness LOWER EXTREMITIES: no edema, +2DP pulse, NEUROLOGICAL: No focal deficit. Normal speech. gait not observed. PSYCHIATRIC: poor historian . Appropriate mood and affect. SKIN: Warm, dry, DIMITRIS : normal sphincter tone with no tags or external hemorrhoids , brown stool , no blood or dark stool , Laboratory Results - last 24 hr 08/10/18 08/10/18 08/10/18 06:30 14:28 16:21 POC Glucometer 77 112 Iron 37 TIBC 320 Iron Saturation 12 L Active Medications Generic Name Dose Route Start Last Admin Trade Name Freq PRN Reason Stop Dose Admin Acetaminophen 650 mg 08/09/18 18:55 08/10/18 20:39 Tylenol - PO 650 mg Q4H PRN Administration PAIN LEVEL 4 - 6 Albuterol Sulfate 2 puff 08/09/18 20:22 08/10/18 05:51 Ventolin Hfa Inhaler - IH 2 puff Q4H PRN Administration SHORT OF BREATH/WHEEZING Amlodipine Besylate 10 mg 08/10/18 10:00 08/11/18 09:36 Norvasc - PO 10 mg DAILY [facility] Administration Apixaban 2.5 mg 08/09/18 22:30 08/11/18 09:37 Eliquis - PO 2.5 mg BID [facility] Administration Atorvastatin Calcium 20 mg 08/10/18 22:00 08/10/18 21:22 Lipitor - PO 20 mg HS [facility] Administration Duloxetine HCl 60 mg 08/10/18 10:00 08/11/18 09:37 Cymbalta - PO 60 mg DAILY [facility] Administration Melatonin 5 mg 08/09/18 20:20 08/10/18 20:39 Melatonin PO 5 mg HS PRN Administration INSOMNIA Metoprolol Succinate 25 mg 08/10/18 10:00 08/11/18 09:36 Toprol Xl - PO 25 mg DAILY [facility] Administration Nicotine 7 mg 08/10/18 10:00 08/11/18 09:37 Nicoderm Patch - TD 7 mg DAILY [facility] Administration Fluticasone/Salmeterol 1 puff 08/09/18 22:00 08/11/18 09:36 Advair 100mcg/50mcg - IH 1 puff BID [facility] Administration Senna 1 tab 08/10/18 10:00 08/11/18 09:36 Senna - PO 1 tab BID [facility] Administration CBC, BMP 08/10/18 06:30 08/10/18 06:30 ASSESSMENT/PLAN: # Anmeia * normochronic normocytic anemia like due to ESRD vs iron deficiency anemia due to GI bleed vs internal hemorrhoids can not R/o malignancy * Base line 8, today H/H 7.2 /22.1 will repeat around 6 pm * Irone 37, , TIBC 320, Ferriitn 11, Iron sat 12 , goes with iron deficiency anemia * B12 , folic acid, Haptoglobin and reticulocytes * Occult blood negative * repeat H/H in am * pt is on eliquis , consider hold 4 days before scoping * Avoid NSAIDS and oxycodone as pt is at risk of bleeding * PTT, PT , INR * consider epogen with HD * pt will need Colonoscopy/endoscopy to R.O any source of bleed and malignancy * pt need to hold eliquis 4 days before scope (possible on Saturday ) * # ALP was elevated 250 * Liver US with no intrahepatic or extrahepatic changes , normal CBD no cholelithiasis or choledocholithisis . pt denies any abdominal pain in my present . Dispo: We will continue to follow the patient. Thank you for this consultative opportunity. Note : spoken with Dr Clark the PCP and agree with holding the Eliquis and start on heparin drip as she will have colonoscopy on Saturday and Hold heparin Saturday Morning before the procedure NPO after med night night Bowel prep with Golytley and Dulocolax 20 mg starting 4 pm on clear liquid diet Starting Morning Visit type - Emergency Visit Emergency Visit: Yes ED Registration Date: 08/09/18 Care time: The patient presented to the Emergency Department on the above date and was hospitalized for further evaluation of their emergent condition. - New Patient This patient is new to me today: Yes Date on this admission: 08/11/18 - Critical Care Critical Care patient: No
[2018-08-11] MEDS: ACETAMINOPHEN 325 MG TABLET (FP) PO PRN ×2 (11:51→21:04)
--- NOTE | 2018-08-11 12:36 | PN ---
Progress Note, Physician History of Present Illness: Pt seen and examined at bedside. She tolerated HD yesterday. - Current Medication List Current Medications: Active Medications Acetaminophen (Tylenol -) 650 mg PO Q4H PRN PRN Reason: PAIN LEVEL 4 - 6 Last Admin: 08/11/18 11:51 Dose: 650 mg Albuterol Sulfate (Ventolin Hfa Inhaler -) 2 puff IH Q4H PRN PRN Reason: SHORT OF BREATH/WHEEZING Last Admin: 08/10/18 05:51 Dose: 2 puff Amlodipine Besylate (Norvasc -) 10 mg PO DAILY [facility] Last Admin: 08/11/18 09:36 Dose: 10 mg Apixaban (Eliquis -) 2.5 mg PO BID [facility] Last Admin: 08/11/18 09:37 Dose: 2.5 mg Atorvastatin Calcium (Lipitor -) 20 mg PO HS [facility] Last Admin: 08/10/18 21:22 Dose: 20 mg Duloxetine HCl (Cymbalta -) 60 mg PO DAILY [facility] Last Admin: 08/11/18 09:37 Dose: 60 mg Melatonin (Melatonin) 5 mg PO HS PRN PRN Reason: INSOMNIA Last Admin: 08/10/18 20:39 Dose: 5 mg Metoprolol Succinate (Toprol Xl -) 25 mg PO DAILY [facility] Last Admin: 08/11/18 09:36 Dose: 25 mg Nicotine (Nicoderm Patch -) 7 mg TD DAILY [facility] Last Admin: 08/11/18 09:37 Dose: 7 mg Fluticasone/Salmeterol (Advair 100mcg/50mcg -) 1 puff IH BID [facility] Last Admin: 08/11/18 09:36 Dose: 1 puff Senna (Senna -) 1 tab PO BID [facility] Last Admin: 08/11/18 09:36 Dose: 1 tab - Objective Vital Signs: Vital Signs Temperature 98.4 F 08/11/18 10:00 Pulse Rate 80 08/11/18 10:00 Respiratory Rate 20 08/11/18 10:00 Blood Pressure 141/71 08/11/18 10:00 O2 Sat by Pulse Oximetry (%) 95 08/11/18 09:00 Constitutional: Yes: Calm Eyes: Yes: Conjunctiva Clear HENT: Yes: Atraumatic Cardiovascular: Yes: S1, S2 Respiratory: Yes: CTA Bilaterally Gastrointestinal: Yes: Soft Genitourinary: Yes: WNL Musculoskeletal: Yes: Back Pain Edema: No Neurological: Yes: Oriented Psychiatric: Yes: Oriented Labs: CBC, BMP 08/10/18 06:30 08/10/18 06:30 Assessment/Plan Current Medications Generic Name Dose Route Start Last Admin Trade Name Freq PRN Reason Stop Dose Admin Acetaminophen 650 mg 08/09/18 18:55 08/11/18 11:51 Tylenol - PO 650 mg Q4H PRN Administration PAIN LEVEL 4 - 6 Albuterol Sulfate 2 puff 08/09/18 20:22 08/10/18 05:51 Ventolin Hfa Inhaler - IH 2 puff Q4H PRN Administration SHORT OF BREATH/WHEEZING Amlodipine Besylate 10 mg 08/10/18 10:00 08/11/18 09:36 Norvasc - PO 10 mg DAILY [facility] Administration Apixaban 2.5 mg 08/09/18 22:30 08/11/18 09:37 Eliquis - PO 2.5 mg BID [facility] Administration Atorvastatin Calcium 20 mg 08/10/18 22:00 08/10/18 21:22 Lipitor - PO 20 mg HS [facility] Administration Duloxetine HCl 60 mg 08/10/18 10:00 08/11/18 09:37 Cymbalta - PO 60 mg DAILY [facility] Administration Melatonin 5 mg 08/09/18 20:20 08/10/18 20:39 Melatonin PO 5 mg HS PRN Administration INSOMNIA Metoprolol Succinate 25 mg 08/10/18 10:00 08/11/18 09:36 Toprol Xl - PO 25 mg DAILY [facility] Administration Nicotine 7 mg 08/10/18 10:00 08/11/18 09:37 Nicoderm Patch - TD 7 mg DAILY [facility] Administration Fluticasone/Salmeterol 1 puff 08/09/18 22:00 08/11/18 09:36 Advair 100mcg/50mcg - IH 1 puff BID [facility] Administration Senna 1 tab 08/10/18 10:00 08/11/18 09:36 Senna - PO 1 tab BID [facility] Administration Impression 1. ESRD 2. non compliance with HD schedule 3. chronic back pain 4. anemia 5. anxiety 6. hx of nsaid use 7. chf diastolic 8. possible complex renal cyst 9. HLD 10. nephrolithiasis 11. copd 12. left internal capsule infarct Plan - HD tomorrow - discussed compliance - epogen for anemia - renal diet
[2018-08-11 14:12] LABS: HBSAG SCREEN Negative (Negative); HEP B CORE AB, TOT Negative (Negative)
--- NOTE | 2018-08-11 15:29 | CON.GI ---
Consult Consult Specialty:: GI Referred by:: Medicine Reason for Consultation:: anemia - History of Present Illness Chief Complaint: back pain History of Present Illness: 63F with h/o COPD, CHF, HTN, HL, ? h/o PUD, ESRD on HD, DVT on Eliquis (unknown duration) sent from HD for back pain with HD. GI consulted for anemia. Patient reported diffuse mild abdominal pain for the last month that comes and goes. US unrevealing. Denies rectal bleeding. Regular bm. Denies N/V. No recent NSAID use. Had endoscopies 2010, 2013 - retained food contents, otherwise unremarkable Colonoscopy 2013 with fair prep, 2-3 sub-cm polyp removed, no follow up interval described. On review of labs, baseline hgb 8 range over the last year. Iron studies with % sat of 12, ferritin of 11. FOBT negative. - Past Medical History [employer]: Yes: Peripheral Neuropathy Cardio/Vascular: Yes: HTN, Hyperlipdemia Pulmonary: Yes: Asthma, Bronchitis, COPD, Pneumonia. No: Pulmonary Embolus, Pulmonary Fibrosis, Sleep Apnea Gastrointestinal: Yes: Gastritis Renal/: Yes: Renal Inusuff, Hemodialysis ...LMP: 07/25/12 Infectious Disease: Yes: MRSA Psych: Yes: Anxiety, Depression Musculoskeletal: Yes: Chronic low back pain Endocrine: Yes: Hyperthyroidism - Past Surgical History Past Surgical History: Yes: AV Fistula/Graft, Joint Replacement (hip replacement ) - Alcohol/Substance Use Hx Alcohol Use: No History of Substance Use: reports: Marijuana - Smoking History Smoking history: Former smoker (hx of tobacco smoking now on nictone patch) Have you smoked in the past 12 months: Yes Aproximately how many cigarettes per day: 6 If you are a former smoker, when did you quit?: refused booklet 07/21/14 - Social History Usual Living Arrangement: With Child ADL: Independent Occupation: not working, SSI History of Recent Travel: No Home Medications - Allergies Allergies/Adverse Reactions: Allergies Allergy/AdvReac Type Severity Reaction Status Date / Time levofloxacin [From Levaquin] Allergy Mild Itching Verified 08/09/18 14:25 - Home Medications Home Medications: Ambulatory Orders Acetaminophen [Tylenol] 650 mg PO QID 08/09/18 Albuterol Sulfate Inhaler - [Ventolin Hfa Inhaler -] 1 - 2 inh PO Q4H 08/09/18 Amlodipine Besylate [Norvasc -] 10 mg PO DAILY 08/09/18 Apixaban [Eliquis] 2.5 mg PO BID 08/09/18 Atorvastatin Ca [Lipitor] 20 mg PO HS 08/09/18 Calcium Carbonate/Simethicone [Maalox Advanced Tab Chew] 1 each PO BID 08/09/18 Docusate Sodium [Colace] 300 mg PO DAILY 08/09/18 Duloxetine HCl [Cymbalta -] 60 mg PO DAILY 08/09/18 Fluticasone/Salmeterol [Advair 250-50 Diskus] 1 each IH BID 08/09/18 Gabapentin [Neurontin] 200 mg PO DAILY 08/09/18 Lorazepam [Ativan] 1 mg PO DAILY 08/09/18 Melatonin 5 mg PO HS 08/09/18 Menthol [Bengay Ultra Strength] 1 each TP DAILY PRN 08/09/18 Metoprolol Tartrate [Lopressor -] 25 mg PO BID 08/09/18 Nicotine [Nicotine Patch 7 mg/24 hr] 1 each TD DAILY 08/09/18 Sennosides [Senna] 8.6 mg PO HS 08/09/18 Family Disease History - Family Disease History Family Disease History: Other: Father (alive), Mother (alive), Sister (alive), Son (23 yo old - alive - healthy) Other Family History: Pt unable to provide fam hx Review of Systems - Review of Systems Constitutional: reports: No Symptoms Eyes: reports: No Symptoms HENT: reports: No Symptoms Neck: reports: No Symptoms Cardiovascular: reports: No Symptoms Respiratory: reports: No Symptoms Gastrointestinal: reports: Abdominal Pain. denies: Constipation, Diarrhea, Melena, Nausea, Rectal Bleeding, Vomiting Genitourinary: reports: No Symptoms Musculoskeletal: reports: No Symptoms Integumentary: reports: No Symptoms Neurological: reports: No Symptoms Hematology/Lymphatic: reports: No Symptoms Psychiatric: reports: No Symptoms Physical Exam-GI Vital Signs: Vital Signs Temperature 98.4 F 08/11/18 10:00 Pulse Rate 80 08/11/18 10:00 Respiratory Rate 20 08/11/18 10:00 Blood Pressure 141/71 08/11/18 10:00 O2 Sat by Pulse Oximetry (%) 95 08/11/18 09:00 Constitutional: Yes: Well Nourished, No Distress, Calm Eyes: Yes: WNL, Conjunctiva Clear HENT: Yes: Atraumatic, Normocephalic Cardiovascular: Yes: Regular Rate and Rhythm, Murmur (CAMPOS) Respiratory: Yes: Regular, CTA Bilaterally ...Palpate: Yes: Soft, Tenderness (diffuse ttp with voluntary guarding) ...Rectal Exam: Yes: Deferred Musculoskeletal: Yes: Back Pain Neurological: Yes: Alert, Oriented Labs: CBC, BMP 08/10/18 06:30 08/10/18 06:30 % sat 12 Ferritin 11 Imaging - Results Ultrasound: Report Reviewed (unremarkable) Assessment/Plan Anemia with a component of iron deficiency, without localizing features. Despite guaiac negative, concern for occult blood loss. Differential includes neoplasm (h/o unexplained DVT) vs ectasia (h/o ESRD on HD). Would plan for colonoscopy +/- EGD to further assess. As patient is on Eliquis, this needs to be held for 4 days. Will plan tentatively for Saturday. In the interim, if anticoagulation is desired, favor unfractionated heparin. Patient would then need clear liquids on , NPO after MN for procedure(s ) on Saturday, and bowel prep on night, and to hold AC in early am on Saturday.
[2018-08-11] MEDS: LORazepam 1 MG TABLET PO PRN (15:42)
[2018-08-11] MEDS ORDERED: HEPARIN NA (PORCINE) 5,000 UNITS/ML 1ML VIAL IVPUSH PRN (15:48)
[2018-08-11] MEDS: HEPARIN - 25,000 UNIT in SODIUM CHLORIDE 495 ML IV SCH (17:13)
[2018-08-11] MEDS: MELATONIN 5 MG TABLETS PO PRN (20:56)
[2018-08-11] MEDS: ATORVASTATIN CA 20 MG TABLET (FP) PO SCH (21:14)
[2018-08-12] MEDS: ACETAMINOPHEN 325 MG TABLET (FP) PO PRN ×2 (04:24→14:09)
[2018-08-12] MEDS: LORazepam 1 MG TABLET PO PRN (04:32)
[2018-08-12] MEDS ORDERED: SODIUM CHLORIDE 250 ML IV PRN (11:47)
[2018-08-12] MEDS ORDERED: EPOETIN ALFA 2,000 UNIT/1 ML VIAL IVPUSH ONE (12:00)
[2018-08-12 12:29] LABS: HEMATOCRIT 20.9 % (32.4-45.2); MCH 27.7 pg (25.7-33.7); MCHC 33.6 g/dl (32.0-36.0); MEAN CELL VOLUME 82.4 fl (80-96); MEAN PLT VOLUME 7.5 fl (7.5-11.1); PLATELET COUNT 396 K/MM3 (134-434); RBC 2.54 M/mm3 (3.60-5.2); RDW 16.6 % (11.6-15.6); WHITE BLOOD COUNT 6.5 K/mm3 (4.0-10.0)
[2018-08-12 12:39] LABS: INR 1.25 (0.83-1.09); PROTHROMBIN TIME (PATIENT) 14.8 SEC (9.7-13.0)
[2018-08-12 12:42] LABS: ACTIVATED PTT 42.7 SECONDS (25.2-36.5)
--- NOTE | 2018-08-12 13:16 | PN ---
Progress Note (short form) - Note Progress Note: pt examined in dialysis no complaints Vital Signs - 24 hr 08/11/18 08/11/18 08/12/18 20:33 21:00 03:43 Temperature 98.3 F 98.5 F Pulse Rate 89 76 Respiratory 20 20 Rate Blood Pressure 126/63 148/67 O2 Sat by Pulse 96 Oximetry (%) 08/12/18 08/12/18 08/12/18 09:38 09:39 10:30 Temperature 98.0 F Pulse Rate 83 77 Respiratory 17 18 Rate Blood Pressure 144/70 142/77 O2 Sat by Pulse 98 Oximetry (%) 08/12/18 08/12/18 08/12/18 10:50 11:20 11:50 Temperature Pulse Rate 79 96 H 82 Respiratory 18 18 18 Rate Blood Pressure 138/69 147/82 136/80 O2 Sat by Pulse Oximetry (%) 08/12/18 08/12/18 12:20 12:50 Temperature Pulse Rate 90 90 Respiratory 18 18 Rate Blood Pressure 122/53 L 130/61 O2 Sat by Pulse Oximetry (%) Current Medications Generic Name Dose Route Start Last Admin Trade Name Freq PRN Reason Stop Dose Admin Acetaminophen 650 mg 08/09/18 18:55 08/12/18 04:24 Tylenol - PO 650 mg Q4H PRN Administration PAIN LEVEL 4 - 6 Albuterol Sulfate 2 puff 08/09/18 20:22 08/10/18 05:51 Ventolin Hfa Inhaler - IH 2 puff Q4H PRN Administration SHORT OF BREATH/WHEEZING Amlodipine Besylate 10 mg 08/10/18 10:00 08/11/18 09:36 Norvasc - PO 10 mg DAILY JACKY Administration Atorvastatin Calcium 20 mg 08/10/18 22:00 08/11/18 21:14 Lipitor - PO 20 mg HS JACKY Administration Bisacodyl 20 mg 08/14/18 16:00 Dulcolax - PO 08/14/18 16:01 ONCE ONE Duloxetine HCl 60 mg 08/10/18 10:00 08/11/18 09:37 Cymbalta - PO 60 mg DAILY JACKY Administration Heparin Sodium (Porcine) 1,000 unit 08/11/18 15:48 Heparin - IVPUSH PRN PRN Heparin Heparin Sodium (Porcine) 5,000 unit 08/11/18 15:48 Heparin - IVPUSH PRN PRN Heparin Heparin Sodium (Porcine) 25, 500 mls @ 16 mls/hr 08/11/18 16:00 08/11/18 17: 13 000 unit/ Sodium Chloride IV 800 unit/hr TITR JACKY 16 mls/hr Administration Protocol 800 UNIT/HR Lorazepam 1 mg 08/11/18 15:34 08/12/18 04:32 Ativan - PO 1 mg BID PRN Administration ANXIETY Melatonin 5 mg 08/09/18 20:20 08/11/18 20:56 Melatonin PO 5 mg HS PRN Administration INSOMNIA Metoprolol Succinate 25 mg 08/10/18 10:00 08/11/18 09:36 Toprol Xl - PO 25 mg DAILY JACKY Administration Nicotine 7 mg 08/10/18 10:00 08/11/18 09:37 Nicoderm Patch - TD 7 mg DAILY JACKY Administration Polyethylene Glycol/Electrolytes 4,000 ml 08/14/18 16:00 Golytely Solution - PO 08/14/18 16:01 ONCE ONE Fluticasone/Salmeterol 1 puff 08/09/18 22:00 08/11/18 21:14 Advair 100mcg/50mcg - IH 1 puff BID JACKY Administration Senna 1 tab 08/10/18 10:00 08/11/18 21:14 Senna - PO 1 tab BID JACKY Administration Laboratory Results - last 24 hr 08/10/18 08/10/18 08/10/18 06:30 10:40 10:40 WBC RBC Hgb Hct MCV MCH MCHC RDW Plt Count MPV Retic Count PT with INR INR PTT (Actin FS) POC Glucometer Calcium 8.9 Vitamin B12 Serum Folate PTH Intact 647 H PTH Intact Intraop 0 m Hepatitis A Ab Total Negative Hep Bs Antigen Negative Hep Bs Antibody Non reactive Hep B Core Total Ab Negative Hep C Ab Diagnostic <0.1 08/11/18 08/11/18 08/11/18 16:33 18:40 18:40 WBC RBC Hgb Hct MCV MCH MCHC RDW Plt Count MPV Retic Count 2.37 H D PT with INR INR PTT (Actin FS) POC Glucometer 111 Calcium Vitamin B12 Serum Folate 13 PTH Intact PTH Intact Intraop 0 m Hepatitis A Ab Total Hep Bs Antigen Hep Bs Antibody Hep B Core Total Ab Hep C Ab Diagnostic 08/11/18 08/12/18 08/12/18 23:01 06:02 11:20 WBC RBC Hgb Hct MCV MCH MCHC RDW Plt Count MPV Retic Count PT with INR 14.80 H INR 1.25 H PTT (Actin FS) 42.7 H POC Glucometer 106 101 Calcium Vitamin B12 Serum Folate PTH Intact PTH Intact Intraop 0 m Hepatitis A Ab Total Hep Bs Antigen Hep Bs Antibody Hep B Core Total Ab Hep C Ab Diagnostic 08/12/18 08/12/18 08/12/18 11:20 11:20 11:20 WBC 6.5 RBC 2.54 L Hgb 7.0 L Hct 20.9 L MCV 82.4 MCH 27.7 MCHC 33.6 RDW 16.6 H Plt Count 396 MPV 7.5 Retic Count 2.45 H PT with INR INR PTT (Actin FS) POC Glucometer Calcium Vitamin B12 Cancelled Serum Folate Cancelled PTH Intact PTH Intact Intraop 0 m Hepatitis A Ab Total Hep Bs Antigen Hep Bs Antibody Hep B Core Total Ab Hep C Ab Diagnostic Physical Exam. Awake/ comfortable. s1 s2 RRR Lungs decreased breath sounds-- better Abd- soft, obese, NT No edema Neuro- awake PLAN HD per renal will need PRBC continue Heparin GTT Endoscopy on Saturday -- Colonoscopy and EGD unsure why pt is on anticoagulation Problem List - Problems (1) Anemia Code(s): D64.9 - ANEMIA, UNSPECIFIED (2) ESRD (end stage renal disease) on dialysis Code(s): N18.6 - END STAGE RENAL DISEASE; Z99.2 - DEPENDENCE ON RENAL DIALYSIS (3) Hyperthyroidism Code(s): E05.90 - THYROTOXICOSIS, UNSP WITHOUT THYROTOXIC CRISIS OR STORM
[2018-08-12 13:24] LABS: BLOOD UREA NITROGEN 44 mg/dL (7-18); CREATININE 4.1 mg/dL (0.55-1.3); GLUCOSE,RANDOM 125 mg/dL (74-106); SODIUM 137 mmol/L (136-145)
[2018-08-12 13:25] LABS: ANION GAP 9 MMOL/L (8-16); CALCIUM 8.5 mg/dL (8.5-10.1); CHLORIDE 101 mmol/L (98-107); CO2 26 mmol/L (21-32); POTASSIUM 3.5 mmol/L (3.5-5.1)
[2018-08-12] MEDS: FLUTICASONE/SALMETEROL 100 MCG/50 MCG DISKUS IH SCH ×2 (14:06→22:55)
[2018-08-12] MEDS: HEPARIN NA (PORCINE) 5,000 UNITS/ML 1ML VIAL IVPUSH PRN ×2 (14:08→22:20)
[2018-08-12] MEDS: amLODIPine BESYLATE 10 MG TABLET (FP) PO SCH (14:08)
[2018-08-12] MEDS: SENNOSIDES 8.6MG TABLET (FP) PO SCH ×2 (14:08→23:42)
[2018-08-12] MEDS: DULoxetine HCL 30 MG CAPSULE.DR (FP) PO SCH (14:08)
[2018-08-12] MEDS: NICOTINE 7 MG/24 HOURS TOPICAL PATCH TD SCH (14:09)
[2018-08-12] MEDS: metoPROLOL SUCCINATE 25 MG TAB.SR.24H (FP) PO SCH (14:09)
--- NOTE | 2018-08-12 14:34 | PN.GI ---
GI Progress Note Subjective: Patient found crying, stating that she misses her son and wants to go home - Objective Vital Signs: Vital Signs Temperature 98.2 F 08/12/18 14:05 Pulse Rate 90 08/12/18 14:05 Respiratory Rate 18 08/12/18 14:05 Blood Pressure 135/70 08/12/18 14:05 O2 Sat by Pulse Oximetry (%) 98 08/12/18 09:39 Constitutional: Calm Eyes: No: Sclera Icterus Cardiovascular: Yes: Regular Rate and Rhythm, Murmur (Systolic) Respiratory: Yes: CTA Bilaterally Gastrointestinal Inspection: Yes: Scars (pelvic). No: Hernia ...Auscultate: Yes: Normoactive Bowel Sounds ...Palpate: Yes: Soft, Tenderness. No: Hepatomegaly, Splenomegaly ...Percussion: No: Tympanitic Edema: No (No LE edema) Neurological: Yes: Alert Labs: CBC, BMP 08/12/18 11:20 08/12/18 11:20 INR, PTT INR 1.25 (0.83-1.09) H 08/12/18 11:20 Problem List - Problems (1) Anemia Assessment/Plan: Likely multifactorial Low ferritin Stopped crying and is now agreeable for EGD/Colon fri Clear liquids on NPO after midnight saturday Hold heparin drip 5 am saturday morning Monitor CBC. Consider 1 U PRBC transfusion Code(s): D64.9 - ANEMIA, UNSPECIFIED
--- NOTE | 2018-08-12 14:59 | EKG ---
Test Reason : Blood Pressure : / mmHG Vent. Rate : 083 BPM Atrial Rate : 083 BPM P-R Int : 172 ms QRS Dur : 084 ms QT Int : 440 ms P-R-T Axes : 003 -08 072 degrees QTc Int : 517 ms NORMAL SINUS RHYTHM POSSIBLE LEFT ATRIAL ENLARGEMENT NONSPECIFIC ST ABNORMALITY PROLONGED QT ABNORMAL ECG WHEN COMPARED WITH ECG OF 09-AUG-2018 14:27, QT HAS LENGTHENED Confirmed by MD Radames, Kevin ([id number]) on 08/12/2018 2:59:09 PM Referred By: CARMELO HARTLEY Confirmed By:Kevin Crum MD
--- NOTE | 2018-08-12 15:30 | PN ---
Progress Note, Physician History of Present Illness: Pt seen and examined at bedside. She denies shortness of breath. - Current Medication List Current Medications: Active Medications Acetaminophen (Tylenol -) 650 mg PO Q4H PRN PRN Reason: PAIN LEVEL 4 - 6 Last Admin: 08/12/18 14:09 Dose: 650 mg Albuterol Sulfate (Ventolin Hfa Inhaler -) 2 puff IH Q4H PRN PRN Reason: SHORT OF BREATH/WHEEZING Last Admin: 08/10/18 05:51 Dose: 2 puff Amlodipine Besylate (Norvasc -) 10 mg PO DAILY JACKY Last Admin: 08/12/18 14:08 Dose: 10 mg Atorvastatin Calcium (Lipitor -) 20 mg PO HS JACKY Last Admin: 08/11/18 21:14 Dose: 20 mg Bisacodyl (Dulcolax -) 20 mg PO ONCE ONE Stop: 08/14/18 16:01 Duloxetine HCl (Cymbalta -) 60 mg PO DAILY [facility] Last Admin: 08/12/18 14:08 Dose: 60 mg Heparin Sodium (Porcine) (Heparin -) 1,000 unit IVPUSH PRN PRN PRN Reason: Heparin Last Admin: 08/12/18 14:08 Dose: 1,000 unit Heparin Sodium (Porcine) (Heparin -) 5,000 unit IVPUSH PRN PRN PRN Reason: Heparin Heparin Sodium (Porcine) 25, (000 unit/ Sodium Chloride) 500 mls @ 16 mls/hr IV TITR JACKY; Protocol Last Titration: 08/12/18 14:08 Dose: 900 unit/hr, 18 mls/hr Lorazepam (Ativan -) 1 mg PO BID PRN PRN Reason: ANXIETY Last Admin: 08/12/18 04:32 Dose: 1 mg Melatonin (Melatonin) 5 mg PO HS PRN PRN Reason: INSOMNIA Last Admin: 08/11/18 20:56 Dose: 5 mg Metoprolol Succinate (Toprol Xl -) 25 mg PO DAILY [facility] Last Admin: 08/12/18 14:09 Dose: 25 mg Nicotine (Nicoderm Patch -) 7 mg TD DAILY JACKY Last Admin: 08/12/18 14:09 Dose: 7 mg Polyethylene Glycol/Electrolytes (Golytely Solution -) 4,000 ml PO ONCE ONE Stop: 08/14/18 16:01 Fluticasone/Salmeterol (Advair 100mcg/50mcg -) 1 puff IH BID [facility] Last Admin: 08/12/18 14:06 Dose: 1 puff Senna (Senna -) 1 tab PO BID JACKY Last Admin: 08/12/18 14:08 Dose: 1 tab - Objective Vital Signs: Vital Signs Temperature 98.2 F 08/12/18 14:05 Pulse Rate 90 08/12/18 14:05 Respiratory Rate 18 08/12/18 14:05 Blood Pressure 135/70 08/12/18 14:05 O2 Sat by Pulse Oximetry (%) 98 08/12/18 09:39 Constitutional: Yes: Calm Eyes: Yes: Conjunctiva Clear HENT: Yes: Atraumatic Cardiovascular: Yes: S1, S2 Respiratory: Yes: CTA Bilaterally Gastrointestinal: Yes: Soft Genitourinary: Yes: WNL Musculoskeletal: Yes: WNL Edema: No Neurological: Yes: Oriented Psychiatric: Yes: Oriented Labs: CBC, BMP 08/12/18 11:20 08/12/18 11:20 INR, PTT INR 1.25 (0.83-1.09) H 08/12/18 11:20 Assessment/Plan Current Medications Generic Name Dose Route Start Last Admin Trade Name Freq PRN Reason Stop Dose Admin Acetaminophen 650 mg 08/09/18 18:55 08/12/18 14:09 Tylenol - PO 650 mg Q4H PRN Administration PAIN LEVEL 4 - 6 Albuterol Sulfate 2 puff 08/09/18 20:22 08/10/18 05:51 Ventolin Hfa Inhaler - IH 2 puff Q4H PRN Administration SHORT OF BREATH/WHEEZING Amlodipine Besylate 10 mg 08/10/18 10:00 08/12/18 14:08 Norvasc - PO 10 mg DAILY JACKY Administration Atorvastatin Calcium 20 mg 08/10/18 22:00 08/11/18 21:14 Lipitor - PO 20 mg HS JACKY Administration Bisacodyl 20 mg 08/14/18 16:00 Dulcolax - PO 08/14/18 16:01 ONCE ONE Duloxetine HCl 60 mg 08/10/18 10:00 08/12/18 14:08 Cymbalta - PO 60 mg DAILY JACKY Administration Heparin Sodium (Porcine) 1,000 unit 08/11/18 15:48 08/12/18 14:08 Heparin - IVPUSH 1,000 unit PRN PRN Administration Heparin Heparin Sodium (Porcine) 5,000 unit 08/11/18 15:48 Heparin - IVPUSH PRN PRN Heparin Heparin Sodium (Porcine) 25, 500 mls @ 16 mls/hr 08/11/18 16:00 08/12/18 14: 08 000 unit/ Sodium Chloride IV 900 unit/hr TITR JACKY 18 mls/hr Titration Protocol 800 UNIT/HR Lorazepam 1 mg 08/11/18 15:34 08/12/18 04:32 Ativan - PO 1 mg BID PRN Administration ANXIETY Melatonin 5 mg 08/09/18 20:20 08/11/18 20:56 Melatonin PO 5 mg HS PRN Administration INSOMNIA Metoprolol Succinate 25 mg 08/10/18 10:00 08/12/18 14:09 Toprol Xl - PO 25 mg DAILY JACKY Administration Nicotine 7 mg 08/10/18 10:00 08/12/18 14:09 Nicoderm Patch - TD 7 mg DAILY JACKY Administration Polyethylene Glycol/Electrolytes 4,000 ml 08/14/18 16:00 Golytely Solution - PO 08/14/18 16:01 ONCE ONE Fluticasone/Salmeterol 1 puff 08/09/18 22:00 08/12/18 14:06 Advair 100mcg/50mcg - IH 1 puff BID JACKY Administration Senna 1 tab 08/10/18 10:00 08/12/18 14:08 Senna - PO 1 tab BID JACKY Administration Impression 1. ESRD 2. non compliance with HD schedule 3. chronic back pain 4. anemia 5. anxiety 6. hx of nsaid use 7. chf diastolic 8. possible complex renal cyst 9. HLD 10. nephrolithiasis 11. copd 12. left internal capsule infarct Plan - HD today - pt did get epogen - can transfuse if she allows for another access - can dialyze again tomorrow if she needs to get blood products - discussed with medical team - will order labs for am
--- NOTE | 2018-08-12 15:44 | CON.PULM ---
Consult Consult Specialty:: PULM/CCM Referred by:: HAILEE Reason for Consultation:: Abnormal Chest CT & COPD - History of Present Illness History of Present Illness: 63 F, well known to our service due to multiple admissions. Known COPD due to smoking (likely GOLD stage 3), CHF, HTN, HPL, (+) PUD, ESRD on HD, DVT on Eliquis, and medical non-compliance. Admitted via the ER due to worsening back pain during HD. At present denies CP or SOB. Has baseline chronic bronchitis symptoms. No specific increase in symptomatology at this time. Patient was advised follow up on abnormal CT Chest from 12/2017. In addition to chronic changes related to her COPD, there was an irregular 14 mm nodular density in the LISA. Patient does not recall if she had PET imaging performed as an outpatient. No fever or chills. No hemoptysis or night sweats. 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 No: Pulmonary Embolus, Pulmonary Fibrosis, Sleep Apnea Gastrointestinal: Yes: Gastritis Renal/: Yes: Renal Inusuff, Hemodialysis ...LMP: 07/25/12 Infectious Disease: Yes: MRSA Psych: Yes: Anxiety, Depression Musculoskeletal: Yes: Chronic low back pain Endocrine: Yes: Hyperthyroidism - Past Surgical History Past Surgical History: Yes: AV Fistula/Graft, Joint Replacement (hip replacement ) - Alcohol/Substance Use Hx Alcohol Use: No History of Substance Use: reports: Marijuana - Smoking History Smoking history: Former smoker (hx of tobacco smoking now on nictone patch) Have you smoked in the past 12 months: Yes Aproximately how many cigarettes per day: 6 If you are a former smoker, when did you quit?: refused booklet 07/21/14 - Social History Usual Living Arrangement: With Child ADL: Independent Occupation: not working, SSI History of Recent Travel: No Home Medications - Allergies Allergies/Adverse Reactions: Allergies Allergy/AdvReac Type Severity Reaction Status Date / Time levofloxacin [From Levaquin] Allergy Mild Itching Verified 08/09/18 14:25 - Home Medications Home Medications: Ambulatory Orders Acetaminophen [Tylenol] 650 mg PO QID 08/09/18 Albuterol Sulfate Inhaler - [Ventolin Hfa Inhaler -] 1 - 2 inh PO Q4H 08/09/18 Amlodipine Besylate [Norvasc -] 10 mg PO DAILY 08/09/18 Apixaban [Eliquis] 2.5 mg PO BID 08/09/18 Atorvastatin Ca [Lipitor] 20 mg PO HS 08/09/18 Calcium Carbonate/Simethicone [Maalox Advanced Tab Chew] 1 each PO BID 08/09/18 Docusate Sodium [Colace] 300 mg PO DAILY 08/09/18 Duloxetine HCl [Cymbalta -] 60 mg PO DAILY 08/09/18 Fluticasone/Salmeterol [Advair 250-50 Diskus] 1 each IH BID 08/09/18 Gabapentin [Neurontin] 200 mg PO DAILY 08/09/18 Lorazepam [Ativan] 1 mg PO DAILY 08/09/18 Melatonin 5 mg PO HS 08/09/18 Menthol [Bengay Ultra Strength] 1 each TP DAILY PRN 08/09/18 Metoprolol Tartrate [Lopressor -] 25 mg PO BID 08/09/18 Nicotine [Nicotine Patch 7 mg/24 hr] 1 each TD DAILY 08/09/18 Sennosides [Senna] 8.6 mg PO HS 08/09/18 Family Disease History - Family Disease History Family Disease History: Other: Father (alive), Mother (alive), Sister (alive), Son (23 yo old - alive - healthy) Other Family History: Pt unable to provide fam hx Review of Systems - Review of Systems Constitutional: reports: Malaise. denies: Chills, Fever, Night Sweats, Unintentional Wgt. Loss Eyes: reports: No Symptoms HENT: reports: No Symptoms Neck: reports: No Symptoms Cardiovascular: denies: Chest Pain, Edema, Palpitations, Shortness of Breath Respiratory: reports: Cough. denies: Hemoptysis, Orthopnea, PND, Snoring, SOB, SOB on Exertion, Wheezing Gastrointestinal: reports: No Symptoms Genitourinary: reports: No Symptoms Breasts: reports: No Symptoms Reported Musculoskeletal: reports: Back Pain, Muscle Cramps Integumentary: reports: No Symptoms Neurological: reports: No Symptoms Endocrine: reports: No Symptoms Hematology/Lymphatic: reports: No Symptoms Psychiatric: reports: No Symptoms Physical Exam Vital Sings: Vital Signs Temperature 98.2 F 08/12/18 14:05 Pulse Rate 90 08/12/18 14:05 Respiratory Rate 18 08/12/18 14:05 Blood Pressure 135/70 08/12/18 14:05 O2 Sat by Pulse Oximetry (%) 98 08/12/18 09:39 Constitutional: Yes: No Distress, Thin Eyes: Yes: Conjunctiva Clear HENT: Yes: Atraumatic, Normocephalic Neck: Yes: Supple, Trachea Midline Cardiovascular: Yes: Regular Rate and Rhythm Respiratory: Yes: Diminished, On Nasal O2, Rhonchi. No: Accessory Muscle Use, Rales, SOB, SOB on Exertion, Stridor, Tachypnea, Wheezes ...Inspection: Yes: WNL ...Clubbing: No Gastrointestinal: Yes: Normal Bowel Sounds, Soft Renal/: Yes: WNL Breast(s): Yes: WNL Musculoskeletal: Yes: WNL Extremities: Yes: WNL Edema: No Peripheral Pulses WNL: Yes Integumentary: Yes: WNL Neurological: Yes: WNL, Alert, Oriented ...Motor Strength: WNL Psychiatric: Yes: WNL, Alert, Oriented Labs: CBC, BMP 08/12/18 11:20 08/12/18 11:20 Imaging - Results Cat Scan: Report Reviewed, Image Reviewed Assessment/Plan COPD, currently not in AE 14 mm LISA nodule density Medical non-compliance ESRD on HD Chronic back pain Anemia Anxiety Diastolic CHF HLD Nephrolithiasis Non contrast CT in AM Should have PET imaging as an outpatient if not already performed O2 as needed BD TX PRN Normal transfusion thresholds No smoking HD per Renal There would be no Pulmonary contraindication for anesthesia or endoscopic evaluation Will follow Thank you Dr Benavidez
--- NOTE | 2018-08-12 15:48 | CON.CARD ---
Consult Consult Specialty:: Cardiology Reason for Consultation:: Chest Pain. AFIB. Long QTc - History of Present Illness Chief Complaint: Chest Pain History of Present Illness: This is a 63 year old female with a PMH of ESRD on HD, COPD, dCHF, HTN, and GI bleeding. She received a RUE fistula about 5 months ago and was sent from her rehap facility with on site dialysis to the ED for back pain and some SOB. Presently she has atypical, reproducible chest pain. Found to be anemic with a hematocrit of 22.1%. MRSA positive. She was recently was hospitalized at [facility] for new onset AFIB and was started on Eliquis, amiodarone, and metoprolol. EKG NSR at 83 BPM with normal axis, QTc 517 ms, and NSSTTW changes. - Past Medical History [employer]: Yes: Peripheral Neuropathy Cardio/Vascular: Yes: HTN, Hyperlipdemia Pulmonary: Yes: Asthma, Bronchitis, COPD, Pneumonia. No: Pulmonary Embolus, Pulmonary Fibrosis, Sleep Apnea Gastrointestinal: Yes: Gastritis Renal/: Yes: Renal Inusuff, Hemodialysis ...LMP: 07/25/12 Infectious Disease: Yes: MRSA Psych: Yes: Anxiety, Depression Musculoskeletal: Yes: Chronic low back pain Endocrine: Yes: Hyperthyroidism - Past Surgical History Past Surgical History: Yes: AV Fistula/Graft, Joint Replacement (hip replacement ) - Alcohol/Substance Use Hx Alcohol Use: No History of Substance Use: reports: Marijuana - Smoking History Smoking history: Former smoker (hx of tobacco smoking now on nictone patch) Have you smoked in the past 12 months: Yes Aproximately how many cigarettes per day: 6 If you are a former smoker, when did you quit?: refused booklet 07/21/14 - Social History Usual Living Arrangement: With Child ADL: Independent Occupation: not working, SSI History of Recent Travel: No Home Medications - Allergies Allergies/Adverse Reactions: Allergies Allergy/AdvReac Type Severity Reaction Status Date / Time levofloxacin [From Levaquin] Allergy Mild Itching Verified 08/09/18 14:25 - Home Medications Home Medications: Ambulatory Orders Acetaminophen [Tylenol] 650 mg PO QID 08/09/18 Albuterol Sulfate Inhaler - [Ventolin Hfa Inhaler -] 1 - 2 inh PO Q4H 08/09/18 Amlodipine Besylate [Norvasc -] 10 mg PO DAILY 08/09/18 Apixaban [Eliquis] 2.5 mg PO BID 08/09/18 Atorvastatin Ca [Lipitor] 20 mg PO HS 08/09/18 Calcium Carbonate/Simethicone [Maalox Advanced Tab Chew] 1 each PO BID 08/09/18 Docusate Sodium [Colace] 300 mg PO DAILY 08/09/18 Duloxetine HCl [Cymbalta -] 60 mg PO DAILY 08/09/18 Fluticasone/Salmeterol [Advair 250-50 Diskus] 1 each IH BID 08/09/18 Gabapentin [Neurontin] 200 mg PO DAILY 08/09/18 Lorazepam [Ativan] 1 mg PO DAILY 08/09/18 Melatonin 5 mg PO HS 08/09/18 Menthol [Bengay Ultra Strength] 1 each TP DAILY PRN 08/09/18 Metoprolol Tartrate [Lopressor -] 25 mg PO BID 08/09/18 Nicotine [Nicotine Patch 7 mg/24 hr] 1 each TD DAILY 08/09/18 Sennosides [Senna] 8.6 mg PO HS 08/09/18 Family Disease History - Family Disease History Family Disease History: Other: Father (alive), Mother (alive), Sister (alive), Son (23 yo old - alive - healthy) Other Family History: Pt unable to provide fam hx Vital Signs: Vital Signs Temperature 98.2 F 08/12/18 14:05 Pulse Rate 90 08/12/18 14:05 Respiratory Rate 18 08/12/18 14:05 Blood Pressure 135/70 08/12/18 14:05 O2 Sat by Pulse Oximetry (%) 98 08/12/18 09:39 Constitutional: Yes: No Distress, Pallor, Thin Neck: Yes: WNL Respiratory: Yes: CTA Bilaterally Gastrointestinal: Yes: Soft Cardiovascular: Yes: Regular Rate and Rhythm Heart Sounds: Yes: S1, S2 (No MRHG) Extremities: Yes: WNL Neurological: Yes: Alert, Oriented - Other Data Labs, Other Data: CBC, BMP 08/12/18 11:20 08/12/18 11:20 INR, PTT INR 1.25 (0.83-1.09) H 08/12/18 11:20 Assessment/Plan 63 year old female with a PMH of ESRD on HD, COPD, dCHF, HTN, and GI bleeding. She received a RUE fistula about 5 months ago and was sent from her rehap facility with on site dialysis to the ED for back pain and some SOB. Presently she has atypical, reproducible chest pain. Found to be anemic with a hematocrit of 22.1%. MRSA positive. She was recently was hospitalized at [facility] for new onset AFIB and was started on Eliquis, amiodarone, and metoprolol. EKG NSR at 83 BPM with normal axis, QTc 517 ms, and NSSTTW changes. AFIB Now in NSR Would hold Eliquis untill GI work up is completed Would continue Amiodarone 200 mg PO daily for rhythm control (was started on amio at [facility]) Continue Metoprol XL 25 mg PO daily Chest pain Atypical, reproducible Troponin negative No acute EKG changes Likely non cardiac, no further evaluation needed at this time HTN/HLD Continue atorvastatin/amlodipine
[2018-08-12] MEDS: ATORVASTATIN CA 20 MG TABLET (FP) PO SCH (23:42)
[2018-08-12] MEDS: MELATONIN 5 MG TABLETS PO PRN (23:42)
[2018-08-13] MEDS: ACETAMINOPHEN 325 MG TABLET (FP) PO PRN ×4 (02:09→21:39)
[2018-08-13 07:22] LABS: BASO % 1.4 % (0-2.0); EOS % 9.2 % (0-4.5); HEMATOCRIT 21.6 % (32.4-45.2); HEMOGLOBIN 7.2 GM/dL (10.7-15.3); LYMPH % 24.8 % (8-40); MCH 27.7 pg (25.7-33.7); MCHC 33.6 g/dl (32.0-36.0); MEAN CELL VOLUME 82.5 fl (80-96); MEAN PLT VOLUME 7.3 fl (7.5-11.1); MONO % 11.3 % (3.8-10.2); NEUT % 53.3 % (42.8-82.8); PLATELET COUNT 413 K/MM3 (134-434); RBC 2.61 M/mm3 (3.60-5.2); RDW 16.4 % (11.6-15.6); WHITE BLOOD COUNT 6.6 K/mm3 (4.0-10.0)
[2018-08-13 07:47] LABS: ALBUMIN 2.8 g/dl (3.4-5.0); ALK PHOS 211 U/L (45-117); ANION GAP 12 MMOL/L (8-16); BILIRUBIN,TOTAL 0.4 mg/dL (0.2-1); BLOOD UREA NITROGEN 33 mg/dL (7-18); CHLORIDE 99 mmol/L (98-107); CO2 24 mmol/L (21-32); CREATININE 3.9 mg/dL (0.55-1.3); GLUCOSE,RANDOM 94 mg/dL (74-106); POTASSIUM 3.1 mmol/L (3.5-5.1); SGOT/AST 11 U/L (15-37); SGPT/ALT 13 U/L (13-61); SODIUM 135 mmol/L (136-145); TOT PROT 6.6 g/dl (6.4-8.2)
[2018-08-13] MEDS ORDERED: POTASSIUM CHLORIDE TABS 20 MEQ TABLET.ER (FP) PO ONE (08:45)
[2018-08-13] MEDS: SENNOSIDES 8.6MG TABLET (FP) PO SCH ×2 (10:29→21:39)
[2018-08-13] MEDS: amLODIPine BESYLATE 10 MG TABLET (FP) PO SCH (10:29)
[2018-08-13] MEDS: DULoxetine HCL 30 MG CAPSULE.DR (FP) PO SCH (10:29)
[2018-08-13] MEDS: metoPROLOL SUCCINATE 25 MG TAB.SR.24H (FP) PO SCH (10:29)
[2018-08-13] MEDS: FLUTICASONE/SALMETEROL 100 MCG/50 MCG DISKUS IH SCH ×2 (10:34→21:42)
[2018-08-13] MEDS ORDERED: PT OWN MED DRAWER 7, Y5N ONE (10:35)
[2018-08-13] MEDS: NICOTINE 7 MG/24 HOURS TOPICAL PATCH TD SCH (10:36)
--- NOTE | 2018-08-13 11:48 | PN ---
Progress Note, Physician History of Present Illness: Pt seen and examined at bedside. She is awake and alert. She does not have access. Will dialyze and give blood. - Current Medication List Current Medications: Active Medications Acetaminophen (Tylenol -) 650 mg PO Q4H PRN PRN Reason: PAIN LEVEL 4 - 6 Last Admin: 08/13/18 06:50 Dose: 650 mg Albuterol Sulfate (Ventolin Hfa Inhaler -) 2 puff IH Q4H PRN PRN Reason: SHORT OF BREATH/WHEEZING Last Admin: 08/10/18 05:51 Dose: 2 puff Amlodipine Besylate (Norvasc -) 10 mg PO DAILY JACKY Last Admin: 08/13/18 10:29 Dose: 10 mg Atorvastatin Calcium (Lipitor -) 20 mg PO HS [facility] Last Admin: 08/12/18 23:42 Dose: 20 mg Bisacodyl (Dulcolax -) 20 mg PO ONCE ONE Stop: 08/14/18 16:01 Duloxetine HCl (Cymbalta -) 60 mg PO DAILY JACKY Last Admin: 08/13/18 10:29 Dose: 60 mg Epoetin Zachery (Epogen -) 8,000 unit IVPUSH ONCE ONE Stop: 08/13/18 08:36 Heparin Sodium (Porcine) (Heparin -) 1,000 unit IVPUSH PRN PRN PRN Reason: Heparin Last Admin: 08/12/18 22:20 Dose: 1,000 unit Heparin Sodium (Porcine) (Heparin -) 5,000 unit IVPUSH PRN PRN PRN Reason: Heparin Heparin Sodium (Porcine) 25, (000 unit/ Sodium Chloride) 500 mls @ 16 mls/hr IV TITR JACKY; Protocol Last Titration: 08/12/18 14:08 Dose: 900 unit/hr, 18 mls/hr Sodium Chloride (Normal Saline -) 250 mls @ 3,000 mls/hr IV PRN PRN PRN Reason: Hypotension during Dialysis Stop: 08/14/18 08:35 Lorazepam (Ativan -) 1 mg PO BID PRN PRN Reason: ANXIETY Last Admin: 08/12/18 04:32 Dose: 1 mg Melatonin (Melatonin) 5 mg PO HS PRN PRN Reason: INSOMNIA Last Admin: 08/12/18 23:42 Dose: 5 mg Metoprolol Succinate (Toprol Xl -) 25 mg PO DAILY JACKY Last Admin: 08/13/18 10:29 Dose: 25 mg Nicotine (Nicoderm Patch -) 7 mg TD DAILY [facility] Last Admin: 08/13/18 10:36 Dose: 7 mg Polyethylene Glycol/Electrolytes (Golytely Solution -) 4,000 ml PO ONCE ONE Stop: 08/14/18 16:01 Fluticasone/Salmeterol (Advair 100mcg/50mcg -) 1 puff IH BID [facility] Last Admin: 08/13/18 10:34 Dose: 1 puff Senna (Senna -) 1 tab PO BID [facility] Last Admin: 08/13/18 10:29 Dose: 1 tab - Objective Vital Signs: Vital Signs Temperature 98.8 F 08/13/18 05:55 Pulse Rate 85 08/13/18 05:55 Respiratory Rate 20 08/13/18 05:55 Blood Pressure 153/82 08/13/18 05:55 O2 Sat by Pulse Oximetry (%) 98 08/12/18 21:00 Constitutional: Yes: Calm Eyes: Yes: Conjunctiva Clear HENT: Yes: Atraumatic Neck: Yes: Supple Cardiovascular: Yes: S1, S2 Respiratory: Yes: CTA Bilaterally Gastrointestinal: Yes: Soft Genitourinary: Yes: WNL Musculoskeletal: Yes: WNL Edema: No Neurological: Yes: Oriented Psychiatric: Yes: Oriented Labs: CBC, BMP 08/13/18 06:10 08/13/18 06:10 INR, PTT INR 1.25 (0.83-1.09) H 08/12/18 11:20 Assessment/Plan Current Medications Generic Name Dose Route Start Last Admin Trade Name Freq PRN Reason Stop Dose Admin Acetaminophen 650 mg 08/09/18 18:55 08/13/18 06:50 Tylenol - PO 650 mg Q4H PRN Administration PAIN LEVEL 4 - 6 Albuterol Sulfate 2 puff 08/09/18 20:22 08/10/18 05:51 Ventolin Hfa Inhaler - IH 2 puff Q4H PRN Administration SHORT OF BREATH/WHEEZING Amlodipine Besylate 10 mg 08/10/18 10:00 08/13/18 10:29 Norvasc - PO 10 mg DAILY JACKY Administration Atorvastatin Calcium 20 mg 08/10/18 22:00 08/12/18 23:42 Lipitor - PO 20 mg HS JACKY Administration Bisacodyl 20 mg 04/25/19 16:00 Dulcolax - PO 08/14/18 16:01 ONCE ONE Duloxetine HCl 60 mg 08/10/18 10:00 08/13/18 10:29 Cymbalta - PO 60 mg DAILY JACKY Administration Epoetin Zachery 8,000 unit 08/13/18 08:35 Epogen - IVPUSH 08/13/18 08:36 ONCE ONE Heparin Sodium (Porcine) 1,000 unit 08/11/18 15:48 08/12/18 22:20 Heparin - IVPUSH 1,000 unit PRN PRN Administration Heparin Heparin Sodium (Porcine) 5,000 unit 08/11/18 15:48 Heparin - IVPUSH PRN PRN Heparin Heparin Sodium (Porcine) 25, 500 mls @ 16 mls/hr 08/11/18 16:00 08/12/18 14: 08 000 unit/ Sodium Chloride IV 900 unit/hr TITR JACKY 18 mls/hr Titration Protocol 800 UNIT/HR Sodium Chloride 250 mls @ 3,000 mls/hr 08/13/18 08:35 Normal Saline - IV 08/14/18 08:35 PRN PRN Hypotension during Dialysis Lorazepam 1 mg 08/11/18 15:34 08/12/18 04:32 Ativan - PO 1 mg BID PRN Administration ANXIETY Melatonin 5 mg 08/09/18 20:20 08/12/18 23:42 Melatonin PO 5 mg HS PRN Administration INSOMNIA Metoprolol Succinate 25 mg 08/10/18 10:00 08/13/18 10:29 Toprol Xl - PO 25 mg DAILY JACKY Administration Nicotine 7 mg 08/10/18 10:00 08/13/18 10:36 Nicoderm Patch - TD 7 mg DAILY JACKY Administration Polyethylene Glycol/Electrolytes 4,000 ml 08/14/18 16:00 Golytely Solution - PO 08/14/18 16:01 ONCE ONE Fluticasone/Salmeterol 1 puff 08/09/18 22:00 08/13/18 10:34 Advair 100mcg/50mcg - IH 1 puff BID JACKY Administration Senna 1 tab 08/10/18 10:00 08/13/18 10:29 Senna - PO 1 tab BID JACKY Administration Impression 1. ESRD 2. non compliance with HD schedule 3. chronic back pain 4. anemia 5. anxiety 6. hx of nsaid use 7. chf diastolic 8. possible complex renal cyst 9. HLD 10. nephrolithiasis 11. copd 12. left internal capsule infarct Plan - will dialyze today to give blood - discussed with medical team - kristina palmer - GI workup in progress
--- NOTE | 2018-08-13 12:25 | PN ---
Progress Note (short form) - Note Progress Note: pt examined no complaints Vital Signs - 24 hr 08/12/18 08/12/18 08/12/18 12:20 12:50 13:20 Temperature Pulse Rate 90 90 92 H Respiratory 18 18 18 Rate Blood Pressure 122/53 L 130/61 107/55 L O2 Sat by Pulse Oximetry (%) 08/12/18 08/12/18 08/12/18 13:30 14:05 19:51 Temperature 98.2 F 98.6 F Pulse Rate 82 90 81 Respiratory 18 18 19 Rate Blood Pressure 124/62 135/70 123/63 O2 Sat by Pulse Oximetry (%) 08/12/18 08/13/18 08/13/18 21:00 05:55 10:00 Temperature 98.8 F 98.5 F Pulse Rate 85 91 H Respiratory 20 20 Rate Blood Pressure 153/82 135/53 L O2 Sat by Pulse 98 98 Oximetry (%) Current Medications Generic Name Dose Route Start Last Admin Trade Name Freq PRN Reason Stop Dose Admin Acetaminophen 650 mg 08/09/18 18:55 08/13/18 06:50 Tylenol - PO 650 mg Q4H PRN Administration PAIN LEVEL 4 - 6 Albuterol Sulfate 2 puff 08/09/18 20:22 08/10/18 05:51 Ventolin Hfa Inhaler - IH 2 puff Q4H PRN Administration SHORT OF BREATH/WHEEZING Amiodarone HCl 200 mg 08/13/18 12:15 Cordarone - PO DAILY [facility] Amlodipine Besylate 10 mg 08/10/18 10:00 08/13/18 10:29 Norvasc - PO 10 mg DAILY JACKY Administration Atorvastatin Calcium 20 mg 08/10/18 22:00 08/12/18 23:42 Lipitor - PO 20 mg HS JACKY Administration Bisacodyl 20 mg 08/14/18 16:00 Dulcolax - PO 08/14/18 16:01 ONCE ONE Duloxetine HCl 60 mg 08/10/18 10:00 08/13/18 10:29 Cymbalta - PO 60 mg DAILY JACKY Administration Epoetin Zachery 8,000 unit 08/13/18 08:35 Epogen - IVPUSH 08/13/18 08:36 ONCE ONE Heparin Sodium (Porcine) 1,000 unit 08/11/18 15:48 08/12/18 22:20 Heparin - IVPUSH 1,000 unit PRN PRN Administration Heparin Heparin Sodium (Porcine) 5,000 unit 08/11/18 15:48 Heparin - IVPUSH PRN PRN Heparin Heparin Sodium (Porcine) 25, 500 mls @ 16 mls/hr 08/11/18 16:00 08/12/18 14: 08 000 unit/ Sodium Chloride IV 900 unit/hr TITR JACKY 18 mls/hr Titration Protocol 800 UNIT/HR Sodium Chloride 250 mls @ 3,000 mls/hr 08/13/18 08:35 Normal Saline - IV 08/14/18 08:35 PRN PRN Hypotension during Dialysis Lorazepam 1 mg 08/11/18 15:34 08/12/18 04:32 Ativan - PO 1 mg BID PRN Administration ANXIETY Melatonin 5 mg 08/09/18 20:20 08/12/18 23:42 Melatonin PO 5 mg HS PRN Administration INSOMNIA Metoprolol Succinate 25 mg 08/10/18 10:00 08/13/18 10:29 Toprol Xl - PO 25 mg DAILY JACKY Administration Nicotine 7 mg 08/10/18 10:00 08/13/18 10:36 Nicoderm Patch - TD 7 mg DAILY JACKY Administration Polyethylene Glycol/Electrolytes 4,000 ml 08/14/18 16:00 Golytely Solution - PO 08/14/18 16:01 ONCE ONE Fluticasone/Salmeterol 1 puff 08/09/18 22:00 08/13/18 10:34 Advair 100mcg/50mcg - IH 1 puff BID JACKY Administration Senna 1 tab 08/10/18 10:00 08/13/18 10:29 Senna - PO 1 tab BID JACKY Administration Laboratory Results - last 24 hr 08/11/18 08/12/18 08/12/18 18:40 11:20 11:20 WBC RBC Hgb Hct MCV MCH MCHC RDW Plt Count MPV Absolute Neuts (auto) Neutrophils % Lymphocytes % Monocytes % Eosinophils % Basophils % Nucleated RBC % Retic Count Haptoglobin 233 H 231 H PT with INR 14.80 H INR 1.25 H PTT (Actin FS) 42.7 H Sodium Potassium Chloride Carbon Dioxide Anion Gap BUN Creatinine Creat Clearance w eGFR Random Glucose Calcium Total Bilirubin AST ALT Alkaline Phosphatase Total Protein Albumin Vitamin B12 Serum Folate Blood Type Antibody Screen Crossmatch 04/08/12/18 08/12/18 11:20 11:20 11:20 WBC 6.5 RBC 2.54 L Hgb 7.0 L Hct 20.9 L MCV 82.4 MCH 27.7 MCHC 33.6 RDW 16.6 H Plt Count 396 MPV 7.5 Absolute Neuts (auto) Neutrophils % Lymphocytes % Monocytes % Eosinophils % Basophils % Nucleated RBC % Retic Count 2.45 H Haptoglobin PT with INR INR PTT (Actin FS) Sodium 137 Potassium 3.5 Chloride 101 Carbon Dioxide 26 Anion Gap 9 BUN 44 H Creatinine 4.1 H Creat Clearance w eGFR 11.06 Random Glucose 125 H Calcium 8.5 Total Bilirubin AST ALT Alkaline Phosphatase Total Protein Albumin Vitamin B12 572 Serum Folate 15 Blood Type Antibody Screen Crossmatch 08/12/18 08/13/18 08/13/18 21:00 06:10 06:10 WBC 6.6 RBC 2.61 L Hgb 7.2 L Hct 21.6 L MCV 82.5 MCH 27.7 MCHC 33.6 RDW 16.4 H Plt Count 413 MPV 7.3 L Absolute Neuts (auto) 3.5 Neutrophils % 53.3 Lymphocytes % 24.8 D Monocytes % 11.3 H Eosinophils % 9.2 H Basophils % 1.4 D Nucleated RBC % 0 Retic Count Haptoglobin PT with INR INR PTT (Actin FS) 41.0 H 54.4 H Sodium Potassium Chloride Carbon Dioxide Anion Gap BUN Creatinine Creat Clearance w eGFR Random Glucose Calcium Total Bilirubin AST ALT Alkaline Phosphatase Total Protein Albumin Vitamin B12 Serum Folate Blood Type Antibody Screen Crossmatch 08/13/18 08/13/18 06:10 09:35 WBC RBC Hgb Hct MCV MCH MCHC RDW Plt Count MPV Absolute Neuts (auto) Neutrophils % Lymphocytes % Monocytes % Eosinophils % Basophils % Nucleated RBC % Retic Count Haptoglobin PT with INR INR PTT (Actin FS) Sodium 135 L Potassium 3.1 L Chloride 99 Carbon Dioxide 24 Anion Gap 12 BUN 33 H Creatinine 3.9 H Creat Clearance w eGFR 11.72 Random Glucose 94 Calcium 9.0 Total Bilirubin 0.4 AST 11 L ALT 13 Alkaline Phosphatase 211 H Total Protein 6.6 Albumin 2.8 L Vitamin B12 Serum Folate Blood Type A POSITIVE Antibody Screen Negative Crossmatch See Detail Physical Exam. Awake/ comfortable. s1 s2 RRR Lungs decreased breath sounds-- better Abd- soft, obese, NT No edema Neuro- awake PLAN Pulmonary and Cardiology eval noted for ct chest today for dialysis today-- will need PRBC-- spoke with Renal For GI work up on Saturday Start Amiodarone continue with heparin GTT Problem List - Problems (1) Anemia Code(s): D64.9 - ANEMIA, UNSPECIFIED (2) ESRD (end stage renal disease) on dialysis Code(s): N18.6 - END STAGE RENAL DISEASE; Z99.2 - DEPENDENCE ON RENAL DIALYSIS (3) Hyperthyroidism Code(s): E05.90 - THYROTOXICOSIS, UNSP WITHOUT THYROTOXIC CRISIS OR STORM
[2018-08-13] MEDS ORDERED: SODIUM CHLORIDE 250 ML IV PRN (14:53)
[2018-08-13] MEDS ORDERED: EPOETIN ALFA 10,000 UNIT/1 ML VIAL IVPUSH ONE (15:00)
--- NOTE | 2018-08-13 15:13 | PN ---
Progress Note, Physician Chief Complaint: Undergoing dialysis Wants to go home History of Present Illness: This is a 63 year old female with a PMH of ESRD on HD, COPD, dCHF, HTN, and GI bleeding. She received a RUE fistula about 5 months ago and was sent from her rehap facility with on site dialysis to the ED for back pain and some SOB. Presently she has atypical, reproducible chest pain. Found to be anemic with a hematocrit of 22.1%. MRSA positive. She was recently was hospitalized at [facility] for new onset AFIB and was started on Eliquis, amiodarone, and metoprolol. EKG NSR at 83 BPM with normal axis, QTc 517 ms, and NSSTTW changes. - Current Medication List Current Medications: Active Medications Acetaminophen (Tylenol -) 650 mg PO Q4H PRN PRN Reason: PAIN LEVEL 4 - 6 Last Admin: 08/13/18 06:50 Dose: 650 mg Albuterol Sulfate (Ventolin Hfa Inhaler -) 2 puff IH Q4H PRN PRN Reason: SHORT OF BREATH/WHEEZING Last Admin: 08/10/18 05:51 Dose: 2 puff Amiodarone HCl (Cordarone -) 200 mg PO DAILY JACKY Amlodipine Besylate (Norvasc -) 10 mg PO DAILY JACKY Last Admin: 08/13/18 10:29 Dose: 10 mg Atorvastatin Calcium (Lipitor -) 20 mg PO HS JACKY Last Admin: 08/12/18 23:42 Dose: 20 mg Bisacodyl (Dulcolax -) 20 mg PO ONCE ONE Stop: 08/14/18 16:01 Duloxetine HCl (Cymbalta -) 60 mg PO DAILY JACKY Last Admin: 08/13/18 10:29 Dose: 60 mg Heparin Sodium (Porcine) (Heparin -) 1,000 unit IVPUSH PRN PRN PRN Reason: Heparin Last Admin: 08/12/18 22:20 Dose: 1,000 unit Heparin Sodium (Porcine) (Heparin -) 5,000 unit IVPUSH PRN PRN PRN Reason: Heparin Heparin Sodium (Porcine) 25, (000 unit/ Sodium Chloride) 500 mls @ 16 mls/hr IV TITR JACKY; Protocol Last Titration: 08/12/18 14:08 Dose: 900 unit/hr, 18 mls/hr Sodium Chloride (Normal Saline -) 250 mls @ 3,000 mls/hr IV PRN PRN PRN Reason: Hypotension during Dialysis Stop: 08/13/18 22:00 Lorazepam (Ativan -) 1 mg PO BID PRN PRN Reason: ANXIETY Last Admin: 08/12/18 04:32 Dose: 1 mg Melatonin (Melatonin) 5 mg PO HS PRN PRN Reason: INSOMNIA Last Admin: 08/12/18 23:42 Dose: 5 mg Metoprolol Succinate (Toprol Xl -) 25 mg PO DAILY [facility] Last Admin: 08/13/18 10:29 Dose: 25 mg Nicotine (Nicoderm Patch -) 7 mg TD DAILY [facility] Last Admin: 08/13/18 10:36 Dose: 7 mg Polyethylene Glycol/Electrolytes (Golytely Solution -) 4,000 ml PO ONCE ONE Stop: 08/14/18 16:01 Fluticasone/Salmeterol (Advair 100mcg/50mcg -) 1 puff IH BID [facility] Last Admin: 08/13/18 10:34 Dose: 1 puff Senna (Senna -) 1 tab PO BID [facility] Last Admin: 08/13/18 10:29 Dose: 1 tab - Objective Vital Signs: Vital Signs Temperature 98.5 F 08/13/18 10:00 Pulse Rate 91 H 08/13/18 10:00 Respiratory Rate 20 08/13/18 10:00 Blood Pressure 135/53 L 08/13/18 10:00 O2 Sat by Pulse Oximetry (%) 98 08/13/18 10:00 Constitutional: Yes: No Distress HENT: Yes: WNL, Rhinnorhea Neck: Yes: WNL Cardiovascular: Yes: Regular Rate and Rhythm, S1, S2 (No MRHG) Respiratory: Yes: CTA Bilaterally Gastrointestinal: Yes: Soft Extremities: Yes: WNL Edema: No Neurological: Yes: Alert, Oriented Labs: CBC, BMP 08/13/18 06:10 08/13/18 06:10 INR, PTT INR 1.25 (0.83-1.09) H 08/12/18 11:20 Assessment/Plan 63 year old female with a PMH of ESRD on HD, COPD, dCHF, HTN, and GI bleeding. She received a RUE fistula about 5 months ago and was sent from her rehap facility with on site dialysis to the ED for back pain and some SOB. Presently she has atypical, reproducible chest pain. Found to be anemic with a hematocrit of 22.1%. MRSA positive. She was recently was hospitalized at [facility] for new onset AFIB and was started on Eliquis, amiodarone, and metoprolol. EKG NSR at 83 BPM with normal axis, QTc 517 ms, and NSSTTW changes. AFIB Now in NSR Would hold Eliquis untill GI work up is completed Continue Amiodarone 200 mg PO daily for rhythm control Continue Metoprol XL 25 mg PO daily Chest pain Atypical, reproducible Troponin negative No acute EKG changes Likely non cardiac, no further evaluation needed at this time HTN/HLD Continue atorvastatin/amlodipine
[2018-08-13] MEDS: AMIODARONE HCL 200 MG TABLET (FP) PO SCH (15:45)
[2018-08-13] MEDS: LORazepam 1 MG TABLET PO PRN ×2 (15:46→21:40)
[2018-08-13] MEDS: HEPARIN - 25,000 UNIT in SODIUM CHLORIDE 495 ML IV SCH ×2 (20:30→20:31)
[2018-08-13] MEDS: MELATONIN 5 MG TABLETS PO PRN (21:39)
[2018-08-13] MEDS: ATORVASTATIN CA 20 MG TABLET (FP) PO SCH (21:39)
[2018-08-14 08:09] LABS: HEMATOCRIT 32.2 % (32.4-45.2); MCH 28.5 pg (25.7-33.7); MCHC 34.1 g/dl (32.0-36.0); MEAN CELL VOLUME 83.5 fl (80-96); PLATELET COUNT 387 K/MM3 (134-434); RBC 3.85 M/mm3 (3.60-5.2); RDW 15.3 % (11.6-15.6); WHITE BLOOD COUNT 8.3 K/mm3 (4.0-10.0)
[2018-08-14] MEDS: SENNOSIDES 8.6MG TABLET (FP) PO SCH ×2 (10:31→22:06)
[2018-08-14] MEDS: amLODIPine BESYLATE 10 MG TABLET (FP) PO SCH (10:31)
[2018-08-14] MEDS: metoPROLOL SUCCINATE 25 MG TAB.SR.24H (FP) PO SCH (10:31)
[2018-08-14] MEDS: NICOTINE 7 MG/24 HOURS TOPICAL PATCH TD SCH (10:31)
[2018-08-14] MEDS: AMIODARONE HCL 200 MG TABLET (FP) PO SCH (10:31)
[2018-08-14] MEDS: DULoxetine HCL 30 MG CAPSULE.DR (FP) PO SCH (10:31)
[2018-08-14] MEDS: FLUTICASONE/SALMETEROL 100 MCG/50 MCG DISKUS IH SCH ×2 (10:33→22:06)
[2018-08-14] MEDS: LORazepam 1 MG TABLET PO PRN ×2 (10:42→22:07)
--- NOTE | 2018-08-14 11:10 | PN ---
Progress Note (short form) - Note Progress Note: PULMONARY Denies shortness of breath or chest pain. c/o "kidney pain" Vital Signs Period Temp Pulse Resp BP Sys/Bills Pulse Ox Last 24 Hr 97.8 F-98.6 F 81-89 18-20 136-169/64-88 94 Gen: NAD at rest Heart: RRR Lung: decreased breath sounds at the bases Abd: soft, nontender Ext: no edema CBC, BMP 08/14/18 07:10 08/13/18 06:10 Active Medications Acetaminophen (Tylenol -) 650 mg PO Q4H PRN PRN Reason: PAIN LEVEL 4 - 6 Last Admin: 08/13/18 21:39 Dose: 650 mg Albuterol Sulfate (Ventolin Hfa Inhaler -) 2 puff IH Q4H PRN PRN Reason: SHORT OF BREATH/WHEEZING Last Admin: 08/10/18 05:51 Dose: 2 puff Amiodarone HCl (Cordarone -) 200 mg PO DAILY JACKY Last Admin: 08/14/18 10:31 Dose: 200 mg Amlodipine Besylate (Norvasc -) 10 mg PO DAILY JACKY Last Admin: 08/14/18 10:31 Dose: 10 mg Atorvastatin Calcium (Lipitor -) 20 mg PO HS JACKY Last Admin: 08/13/18 21:39 Dose: 20 mg Bisacodyl (Dulcolax -) 20 mg PO ONCE ONE Stop: 08/14/18 16:01 Duloxetine HCl (Cymbalta -) 60 mg PO DAILY JACKY Last Admin: 08/14/18 10:31 Dose: 60 mg Heparin Sodium (Porcine) (Heparin -) 1,000 unit IVPUSH PRN PRN PRN Reason: Heparin Last Admin: 08/12/18 22:20 Dose: 1,000 unit Heparin Sodium (Porcine) (Heparin -) 5,000 unit IVPUSH PRN PRN PRN Reason: Heparin Heparin Sodium (Porcine) 25, (000 unit/ Sodium Chloride) 500 mls @ 16 mls/hr IV TITR JACKY; Protocol Last Admin: 08/13/18 20:31 Dose: Not Given Lorazepam (Ativan -) 1 mg PO BID PRN PRN Reason: ANXIETY Last Admin: 08/14/18 10:42 Dose: 1 mg Melatonin (Melatonin) 5 mg PO HS PRN PRN Reason: INSOMNIA Last Admin: 08/13/18 21:39 Dose: 5 mg Metoprolol Succinate (Toprol Xl -) 25 mg PO DAILY [facility] Last Admin: 08/14/18 10:31 Dose: 25 mg Nicotine (Nicoderm Patch -) 7 mg TD DAILY [facility] Last Admin: 08/14/18 10:31 Dose: 7 mg Polyethylene Glycol/Electrolytes (Golytely Solution -) 4,000 ml PO ONCE ONE Stop: 08/14/18 16:01 Fluticasone/Salmeterol (Advair 100mcg/50mcg -) 1 puff IH BID [facility] Last Admin: 08/14/18 10:33 Dose: 1 puff Senna (Senna -) 1 tab PO BID JACKY Last Admin: 08/14/18 10:31 Dose: 1 tab A/P Anemia COPD Lung Nodule ESRD on HD LV Diastolic Dysfunction Paroxysmal Atrial Fibrillation Anxiety Hyperlipidemia Smoker - monitor H/H - transfuse as needed - HD per renal - inhaled bronchodilators - will need outpt PET scan to further characterize lung nodule, stressed to her importance of f/u - smoking cessation discussed - no pulmonary contraindications for endoscopy/colonoscopy
--- NOTE | 2018-08-14 12:33 | PN ---
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 about 1 week ago Vital Signs - 24 hr 08/13/18 08/13/18 08/13/18 13:15 13:20 13:50 Temperature 97.8 F Pulse Rate 81 83 81 Respiratory 18 18 18 Rate Blood Pressure 142/67 136/67 138/66 O2 Sat by Pulse Oximetry (%) 08/13/18 08/13/18 08/13/18 14:20 14:50 15:20 Temperature Pulse Rate 82 82 82 Respiratory 18 18 18 Rate Blood Pressure 141/64 155/78 148/87 O2 Sat by Pulse Oximetry (%) 08/13/18 08/13/18 08/13/18 15:31 21:00 21:03 Temperature 98.6 F Pulse Rate 81 85 Respiratory 18 19 20 Rate Blood Pressure 143/77 140/69 O2 Sat by Pulse 94 L Oximetry (%) 08/13/18 08/14/18 08/14/18 21:43 05:55 11:00 Temperature 98.1 F 98.4 F Pulse Rate 89 88 87 Respiratory 19 20 20 Rate Blood Pressure 169/88 142/72 164/77 O2 Sat by Pulse Oximetry (%) Current Medications Generic Name Dose Route Start Last Admin Trade Name Freq PRN Reason Stop Dose Admin Acetaminophen 650 mg 08/09/18 18:55 08/13/18 21:39 Tylenol - PO 650 mg Q4H PRN Administration PAIN LEVEL 4 - 6 Albuterol Sulfate 2 puff 08/09/18 20:22 08/10/18 05:51 Ventolin Hfa Inhaler - IH 2 puff Q4H PRN Administration SHORT OF BREATH/WHEEZING Amiodarone HCl 200 mg 08/13/18 12:15 08/14/18 10:31 Cordarone - PO 200 mg DAILY JACKY Administration Amlodipine Besylate 10 mg 08/10/18 10:00 08/14/18 10:31 Norvasc - PO 10 mg DAILY JACKY Administration Atorvastatin Calcium 20 mg 08/10/18 22:00 08/13/18 21:39 Lipitor - PO 20 mg HS JACKY Administration Bisacodyl 20 mg 08/14/18 16:00 Dulcolax - PO 08/14/18 16:01 ONCE ONE Duloxetine HCl 60 mg 08/10/18 10:00 08/14/18 10:31 Cymbalta - PO 60 mg DAILY JACKY Administration Gabapentin 200 mg 08/14/18 14:00 Neurontin - PO TID JACKY Heparin Sodium (Porcine) 1,000 unit 08/11/18 15:48 08/12/18 22:20 Heparin - IVPUSH 1,000 unit PRN PRN Administration Heparin Heparin Sodium (Porcine) 5,000 unit 08/11/18 15:48 Heparin - IVPUSH PRN PRN Heparin Heparin Sodium (Porcine) 25, 500 mls @ 16 mls/hr 08/11/18 16:00 08/13/18 20: 31 000 unit/ Sodium Chloride IV Not Given TITR [facility] Protocol 800 UNIT/HR Lorazepam 1 mg 08/11/18 15:34 08/14/18 10:42 Ativan - PO 1 mg BID PRN Administration ANXIETY Melatonin 5 mg 08/09/18 20:20 08/13/18 21:39 Melatonin PO 5 mg HS PRN Administration INSOMNIA Metoprolol Succinate 25 mg 08/10/18 10:00 08/14/18 10:31 Toprol Xl - PO 25 mg DAILY JACKY Administration Nicotine 7 mg 08/10/18 10:00 08/14/18 10:31 Nicoderm Patch - TD 7 mg DAILY JACKY Administration Polyethylene Glycol/Electrolytes 4,000 ml 08/14/18 16:00 Golytely Solution - PO 08/14/18 16:01 ONCE ONE Fluticasone/Salmeterol 1 puff 08/09/18 22:00 08/14/18 10:33 Advair 100mcg/50mcg - IH 1 puff BID JACKY Administration Senna 1 tab 08/10/18 10:00 08/14/18 10:31 Senna - PO 1 tab BID JACKY Administration Laboratory Results - last 24 hr 08/13/18 08/14/18 08/14/18 09:35 07:10 07:10 WBC 8.3 RBC 3.85 Hgb 11.0 Hct 32.2 L D MCV 83.5 MCH 28.5 MCHC 34.1 RDW 15.3 Plt Count 387 MPV 7.0 L PTT (Actin FS) 52.8 H Blood Type A POSITIVE Antibody Screen Negative Crossmatch See Detail Physical Exam. Awake/ comfortable. s1 s2 RRR Lungs decreased breath sounds-- better Abd- soft, obese, NT No edema Neuro- awake PLAN Pulmonary and Cardiology eval noted for ct chest today -- pending s/p 2 units PRBC yesterday For GI work up on Saturday -- may dc to [facility] afterwards if no issues add gabapentin for neuropathy continue Ativan no opioids Problem List - Problems (1) Anemia Code(s): D64.9 - ANEMIA, UNSPECIFIED (2) ESRD (end stage renal disease) on dialysis Code(s): N18.6 - END STAGE RENAL DISEASE; Z99.2 - DEPENDENCE ON RENAL DIALYSIS (3) Hyperthyroidism Code(s): E05.90 - THYROTOXICOSIS, UNSP WITHOUT THYROTOXIC CRISIS OR STORM
[2018-08-14] MEDS: GABAPENTIN 100 MG CAPSULE (FP) PO SCH ×2 (14:14→21:43)
--- NOTE | 2018-08-14 14:21 | PN ---
Progress Note, Physician History of Present Illness: Pt seen and examined at bedside. She is awake and alert. - Current Medication List Current Medications: Active Medications Acetaminophen (Tylenol -) 650 mg PO Q4H PRN PRN Reason: PAIN LEVEL 4 - 6 Last Admin: 08/13/18 21:39 Dose: 650 mg Albuterol Sulfate (Ventolin Hfa Inhaler -) 2 puff IH Q4H PRN PRN Reason: SHORT OF BREATH/WHEEZING Last Admin: 08/10/18 05:51 Dose: 2 puff Amiodarone HCl (Cordarone -) 200 mg PO DAILY [facility] Last Admin: 08/14/18 10:31 Dose: 200 mg Amlodipine Besylate (Norvasc -) 10 mg PO DAILY [facility] Last Admin: 08/14/18 10:31 Dose: 10 mg Atorvastatin Calcium (Lipitor -) 20 mg PO HS [facility] Last Admin: 08/13/18 21:39 Dose: 20 mg Bisacodyl (Dulcolax -) 20 mg PO ONCE ONE Stop: 08/14/18 16:01 Duloxetine HCl (Cymbalta -) 60 mg PO DAILY [facility] Last Admin: 08/14/18 10:31 Dose: 60 mg Gabapentin (Neurontin -) 200 mg PO TID [facility] Last Admin: 08/14/18 14:14 Dose: 200 mg Heparin Sodium (Porcine) (Heparin -) 1,000 unit IVPUSH PRN PRN PRN Reason: Heparin Last Admin: 08/12/18 22:20 Dose: 1,000 unit Heparin Sodium (Porcine) (Heparin -) 5,000 unit IVPUSH PRN PRN PRN Reason: Heparin Heparin Sodium (Porcine) 25, (000 unit/ Sodium Chloride) 500 mls @ 16 mls/hr IV TITR [facility]; Protocol Last Admin: 08/13/18 20:31 Dose: Not Given Lorazepam (Ativan -) 1 mg PO BID PRN PRN Reason: ANXIETY Last Admin: 08/14/18 10:42 Dose: 1 mg Melatonin (Melatonin) 5 mg PO HS PRN PRN Reason: INSOMNIA Last Admin: 08/13/18 21:39 Dose: 5 mg Metoprolol Succinate (Toprol Xl -) 25 mg PO DAILY [facility] Last Admin: 08/14/18 10:31 Dose: 25 mg Nicotine (Nicoderm Patch -) 7 mg TD DAILY [facility] Last Admin: 08/14/18 10:31 Dose: 7 mg Polyethylene Glycol/Electrolytes (Golytely Solution -) 4,000 ml PO ONCE ONE Stop: 08/14/18 16:01 Fluticasone/Salmeterol (Advair 100mcg/50mcg -) 1 puff IH BID [facility] Last Admin: 08/14/18 10:33 Dose: 1 puff Senna (Senna -) 1 tab PO BID [facility] Last Admin: 08/14/18 10:31 Dose: 1 tab - Objective Vital Signs: Vital Signs Temperature 98.4 F 08/14/18 05:55 Pulse Rate 87 08/14/18 11:00 Respiratory Rate 20 08/14/18 11:00 Blood Pressure 164/77 08/14/18 11:00 O2 Sat by Pulse Oximetry (%) 94 L 08/13/18 21:00 Constitutional: Yes: Calm Eyes: Yes: Conjunctiva Clear HENT: Yes: Atraumatic Neck: Yes: Supple Cardiovascular: Yes: S1, S2 Respiratory: Yes: CTA Bilaterally Gastrointestinal: Yes: Soft Genitourinary: Yes: WNL Edema: No Neurological: Yes: Oriented Psychiatric: Yes: Oriented Labs: CBC, BMP 08/14/18 07:10 08/13/18 06:10 INR, PTT INR 1.25 (0.83-1.09) H 08/12/18 11:20 Assessment/Plan Current Medications Generic Name Dose Route Start Last Admin Trade Name Freq PRN Reason Stop Dose Admin Acetaminophen 650 mg 08/09/18 18:55 08/13/18 21:39 Tylenol - PO 650 mg Q4H PRN Administration PAIN LEVEL 4 - 6 Albuterol Sulfate 2 puff 08/09/18 20:22 08/10/18 05:51 Ventolin Hfa Inhaler - IH 2 puff Q4H PRN Administration SHORT OF BREATH/WHEEZING Amiodarone HCl 200 mg 08/13/18 12:15 08/14/18 10:31 Cordarone - PO 200 mg DAILY [facility] Administration Amlodipine Besylate 10 mg 08/10/18 10:00 08/14/18 10:31 Norvasc - PO 10 mg DAILY [facility] Administration Atorvastatin Calcium 20 mg 08/10/18 22:00 08/13/18 21:39 Lipitor - PO 20 mg HS [facility] Administration Bisacodyl 20 mg 08/14/18 16:00 Dulcolax - PO 08/14/18 16:01 ONCE ONE Duloxetine HCl 60 mg 08/10/18 10:00 08/14/18 10:31 Cymbalta - PO 60 mg DAILY [facility] Administration Gabapentin 200 mg 08/14/18 14:00 08/14/18 14:14 Neurontin - PO 200 mg TID [facility] Administration Heparin Sodium (Porcine) 1,000 unit 08/11/18 15:48 08/12/18 22:20 Heparin - IVPUSH 1,000 unit PRN PRN Administration Heparin Heparin Sodium (Porcine) 5,000 unit 08/11/18 15:48 Heparin - IVPUSH PRN PRN Heparin Heparin Sodium (Porcine) 25, 500 mls @ 16 mls/hr 08/11/18 16:00 08/13/18 20: 31 000 unit/ Sodium Chloride IV Not Given TITR [facility] Protocol 800 UNIT/HR Lorazepam 1 mg 08/11/18 15:34 08/14/18 10:42 Ativan - PO 1 mg BID PRN Administration ANXIETY Melatonin 5 mg 08/09/18 20:20 08/13/18 21:39 Melatonin PO 5 mg HS PRN Administration INSOMNIA Metoprolol Succinate 25 mg 08/10/18 10:00 08/14/18 10:31 Toprol Xl - PO 25 mg DAILY [facility] Administration Nicotine 7 mg 08/10/18 10:00 08/14/18 10:31 Nicoderm Patch - TD 7 mg DAILY [facility] Administration Polyethylene Glycol/Electrolytes 4,000 ml 08/14/18 16:00 Golytely Solution - PO 08/14/18 16:01 ONCE ONE Fluticasone/Salmeterol 1 puff 08/09/18 22:00 08/14/18 10:33 Advair 100mcg/50mcg - IH 1 puff BID [facility] Administration Senna 1 tab 08/10/18 10:00 08/14/18 10:31 Senna - PO 1 tab BID [facility] Administration Impression 1. ESRD 2. non compliance with HD schedule 3. chronic back pain 4. anemia 5. anxiety 6. hx of nsaid use 7. chf diastolic 8. possible complex renal cyst 9. HLD 10. nephrolithiasis 11. copd 12. left internal capsule infarct Plan - check labs in am - endoscopy tomorrow - cont epogen - GI workup in progress
[2018-08-14] MEDS ORDERED: PEG 3350/NA SULF BICARB CL/KCL 4000 ML SOLN.RECON PO ONE ×2 (15:00→16:00)
[2018-08-14] MEDS ORDERED: BISACODYL 5 MG TABLET.DR (FP) PO ONE (16:00)
[2018-08-14] MEDS: ATORVASTATIN CA 20 MG TABLET (FP) PO SCH (21:44)
[2018-08-14] MEDS: HEPARIN - 25,000 UNIT in SODIUM CHLORIDE 495 ML IV SCH (22:04)
[2018-08-14] MEDS: MELATONIN 5 MG TABLETS PO PRN (22:07)
--- NOTE | 2018-08-15 05:10 | HOSP ---
Subjective - Review of Symptoms Musculoskeletal: Yes: Other (pain to right hip and knee) Physical Examination Vital Signs: Vital Signs Temperature 98.2 F 08/15/18 04:05 Pulse Rate 83 08/15/18 04:05 Respiratory Rate 19 08/15/18 04:05 Blood Pressure 132/72 08/15/18 04:05 O2 Sat by Pulse Oximetry (%) 94 L 08/13/18 21:00 Constitutional: Yes: Anxious Eyes: Yes: WNL HENT: Yes: WNL Neck: Yes: WNL Cardiovascular: Yes: WNL Respiratory: Yes: WNL Gastrointestinal: Yes: WNL ...Rectal Exam: Yes: Deferred Musculoskeletal: Yes: Other (severe right hip and right knee pain with no bleeding, right knee with abrasion) Labs: CBC, BMP 08/14/18 07:10 08/13/18 06:10 Hospitalist Encounter Assessment: Episodic Note: 08/15@5am Called by RN patient fell to the floor. No syncopy. Chart reviewed. Patient was seen and examined at bedside. She was found on the floor with IV heparin gtt infusing. She reports she was asleep and fell to the floor. She denied hitting her head. Vital signs were stable. On exam she was oriented with no confusion or hypoxia noted. She reported severe pain to her right hip and knee. She was agitated due to her severe pain to right hip and knee when getting her into bed. There was no active bleeding. Small bruise noted to right shoulder. Assessment/Plan Severe Right hip and knee pain -check stat right hip and knee xray. -check CT scan of head to exclude bleed. -one dose of percocet 5/325mg once for severe pain to right hip and knee. -Continue with safety measures-bed alarm, rail up X4. Incident form signed.
[2018-08-15] MEDS: GABAPENTIN 100 MG CAPSULE (FP) PO SCH ×3 (05:17→21:15)
[2018-08-15 08:18] LABS: BASO % 1.2 % (0-2.0); EOS % 4.9 % (0-4.5); HEMATOCRIT 29.8 % (32.4-45.2); HEMOGLOBIN 10.2 GM/dL (10.7-15.3); LYMPH % 12.9 % (8-40); MCH 28.5 pg (25.7-33.7); MCHC 34.1 g/dl (32.0-36.0); MEAN CELL VOLUME 83.5 fl (80-96); MEAN PLT VOLUME 7.3 fl (7.5-11.1); PLATELET COUNT 357 K/MM3 (134-434); RBC 3.56 M/mm3 (3.60-5.2); RDW 16.2 % (11.6-15.6); WHITE BLOOD COUNT 8.9 K/mm3 (4.0-10.0)
[2018-08-15 08:32] LABS: ANION GAP 16 MMOL/L (8-16); BLOOD UREA NITROGEN 38 mg/dL (7-18); CALCIUM 9.4 mg/dL (8.5-10.1); CHLORIDE 89 mmol/L (98-107); CO2 21 mmol/L (21-32); CREATININE 4.6 mg/dL (0.55-1.3); GLUCOSE,RANDOM 101 mg/dL (74-106); POTASSIUM 3.4 mmol/L (3.5-5.1); SODIUM 125 mmol/L (136-145)
[2018-08-15] MEDS: SENNOSIDES 8.6MG TABLET (FP) PO SCH ×2 (10:30→21:15)
[2018-08-15] MEDS: amLODIPine BESYLATE 10 MG TABLET (FP) PO SCH (10:30)
[2018-08-15] MEDS: DULoxetine HCL 30 MG CAPSULE.DR (FP) PO SCH (10:30)
[2018-08-15] MEDS: metoPROLOL SUCCINATE 25 MG TAB.SR.24H (FP) PO SCH (10:30)
[2018-08-15] MEDS: AMIODARONE HCL 200 MG TABLET (FP) PO SCH (10:30)
--- NOTE | 2018-08-15 10:45 | PN ---
Progress Note (short form) - Note Progress Note: pt seen/ examined chart reviewed events noted comfortable for endo today -- Discussed with Dr. Dueñas today Vital Signs Temp 98 F 08/15/18 10:00 Pulse 86 08/15/18 10:00 Resp 20 08/15/18 10:00 BP 145/66 08/15/18 10:00 Pulse Ox 94 L 08/14/18 21:00 Intake & Output 08/14/18 08/14/18 08/15/18 11:59 23:59 11:59 Intake Total 220 1360 200 Balance 220 1360 200 Weight 135 lb 5 oz 134 lb 4 oz Intake: IV 220 160 200 Heparin - 25,000 Unit In 220 160 200 Normal Saline - 495 ml @ 800 UNIT/HR 16 mls/hr IV TITR [facility] Rx#:[id number] Oral 1200 Other: Voiding Method Toilet Toilet # Unmeasured Voids Void 5 3 Bowel Movement Yes Yes # Bowel Movements 3 Weight Measurement Method Built in [facility] Active Medications Acetaminophen (Tylenol -) 650 mg PO Q4H PRN PRN Reason: PAIN LEVEL 4 - 6 Last Admin: 08/13/18 21:39 Dose: 650 mg Albuterol Sulfate (Ventolin Hfa Inhaler -) 2 puff IH Q4H PRN PRN Reason: SHORT OF BREATH/WHEEZING Last Admin: 08/10/18 05:51 Dose: 2 puff Amiodarone HCl (Cordarone -) 200 mg PO DAILY [facility] Last Admin: 08/14/18 10:31 Dose: 200 mg Amlodipine Besylate (Norvasc -) 10 mg PO DAILY [facility] Last Admin: 08/14/18 10:31 Dose: 10 mg Atorvastatin Calcium (Lipitor -) 20 mg PO HS [facility] Last Admin: 08/14/18 21:44 Dose: 20 mg Duloxetine HCl (Cymbalta -) 60 mg PO DAILY [facility] Last Admin: 08/14/18 10:31 Dose: 60 mg Gabapentin (Neurontin -) 200 mg PO TID [facility] Last Admin: 08/15/18 05:17 Dose: 200 mg Heparin Sodium (Porcine) (Heparin -) 1,000 unit IVPUSH PRN PRN PRN Reason: Heparin Last Admin: 08/12/18 22:20 Dose: 1,000 unit Heparin Sodium (Porcine) (Heparin -) 5,000 unit IVPUSH PRN PRN PRN Reason: Heparin Lorazepam (Ativan -) 1 mg PO BID PRN PRN Reason: ANXIETY Last Admin: 08/14/18 22:07 Dose: 1 mg Melatonin (Melatonin) 5 mg PO HS PRN PRN Reason: INSOMNIA Last Admin: 08/14/18 22:07 Dose: 5 mg Metoprolol Succinate (Toprol Xl -) 25 mg PO DAILY [facility] Last Admin: 08/14/18 10:31 Dose: 25 mg Nicotine (Nicoderm Patch -) 7 mg TD DAILY [facility] Last Admin: 08/14/18 10:31 Dose: 7 mg Fluticasone/Salmeterol (Advair 100mcg/50mcg -) 1 puff IH BID [facility] Last Admin: 08/14/18 22:06 Dose: 1 puff Senna (Senna -) 1 tab PO BID [facility] Last Admin: 08/14/18 22:06 Dose: 1 tab CBC, BMP 08/15/18 07:15 08/15/18 07:15 Physical Exam. Awake/ comfortable. s1 s2 RRR Lungs decreased breath sounds-- better Abd- soft, obese, NT No edema Neuro- awake PLAN stable For GI work up today-- may dc to CT afterwards if no issues add gabapentin for neuropathy continue Ativan no opioids will follow
[2018-08-15] MEDS ORDERED: ACETAMINOPHEN 325 MG TABLET (FP) PO ONE (11:15)
[2018-08-15] MEDS ORDERED: oxyCODONE HCL 5 MG TABLET PO ONE (11:15)
--- NOTE | 2018-08-15 11:35 | PN ---
Progress Note (short form) - Note Progress Note: Initially was advised by nurse this morning that Ms. Matamoros was non-compliant with bowel prep yesterday and only drank half prep. I advised a tap water enema. I then was advised that she had fallen this morning. She is complaining of left hip pain and wants analgesia. I am canceling procedures today as the patient was partially compliant with bowel prep and is still complaining of pain on the hip should would be laying on for endoscopic evaluation. Advise: Advance diet Management of A/C per primary team Work-up of hip pain per primary team If clinical status permits, can attempt reprep on saturday for EGD/Colon Saturday Patient's nurse aware Problem List - Problems (1) Anemia Code(s): D64.9 - ANEMIA, UNSPECIFIED
--- NOTE | 2018-08-15 12:55 | PN ---
Progress Note (short form) - Note Progress Note: PULMONARY Resting comfortably vss/afebrile Gen: NAD at rest Heart: RRR Lung: decreased breath sounds at the bases Abd: soft, nontender Ext: no edema Active Medications reviewed Anemia COPD Lung Nodule ESRD on HD LV Diastolic Dysfunction Paroxysmal Atrial Fibrillation Anxiety Hyperlipidemia Smoker - monitor H/H - transfuse as needed - HD per renal - inhaled bronchodilators - will need outpt PET scan to further characterize lung nodule, stressed to her importance of f/u - smoking cessation discussed - no pulmonary contraindications for endoscopy/colonoscopy Tejinder WAKEFIELD MD
[2018-08-15] MEDS ORDERED: SODIUM CHLORIDE 250 ML IV PRN (14:35)
--- NOTE | 2018-08-15 14:35 | PN ---
Progress Note, Physician History of Present Illness: Pt seen and examined at bedside. She did not complete her prep and scope was cancelled. She had a fall last night. She denies shortness of breath. - Current Medication List Current Medications: Active Medications Acetaminophen (Tylenol -) 650 mg PO Q4H PRN PRN Reason: PAIN LEVEL 4 - 6 Last Admin: 08/13/18 21:39 Dose: 650 mg Albuterol Sulfate (Ventolin Hfa Inhaler -) 2 puff IH Q4H PRN PRN Reason: SHORT OF BREATH/WHEEZING Last Admin: 08/10/18 05:51 Dose: 2 puff Amiodarone HCl (Cordarone -) 200 mg PO DAILY [facility] Last Admin: 08/15/18 10:30 Dose: 200 mg Amlodipine Besylate (Norvasc -) 10 mg PO DAILY [facility] Last Admin: 08/15/18 10:30 Dose: 10 mg Atorvastatin Calcium (Lipitor -) 20 mg PO HS [facility] Last Admin: 08/14/18 21:44 Dose: 20 mg Duloxetine HCl (Cymbalta -) 60 mg PO DAILY [facility] Last Admin: 08/15/18 10:30 Dose: 60 mg Gabapentin (Neurontin -) 200 mg PO TID [facility] Last Admin: 08/15/18 05:17 Dose: 200 mg Heparin Sodium (Porcine) (Heparin -) 1,000 unit IVPUSH PRN PRN PRN Reason: Heparin Last Admin: 08/12/18 22:20 Dose: 1,000 unit Heparin Sodium (Porcine) (Heparin -) 5,000 unit IVPUSH PRN PRN PRN Reason: Heparin Lorazepam (Ativan -) 1 mg PO BID PRN PRN Reason: ANXIETY Last Admin: 08/14/18 22:07 Dose: 1 mg Melatonin (Melatonin) 5 mg PO HS PRN PRN Reason: INSOMNIA Last Admin: 08/14/18 22:07 Dose: 5 mg Metoprolol Succinate (Toprol Xl -) 25 mg PO DAILY [facility] Last Admin: 08/15/18 10:30 Dose: 25 mg Nicotine (Nicoderm Patch -) 7 mg TD DAILY [facility] Last Admin: 08/14/18 10:31 Dose: 7 mg Fluticasone/Salmeterol (Advair 100mcg/50mcg -) 1 puff IH BID [facility] Last Admin: 08/14/18 22:06 Dose: 1 puff Senna (Senna -) 1 tab PO BID [facility] Last Admin: 08/15/18 10:30 Dose: 1 tab - Objective Vital Signs: Vital Signs Temperature 97.4 F L 08/15/18 14:00 Pulse Rate 81 08/15/18 14:00 Respiratory Rate 18 08/15/18 14:00 Blood Pressure 146/74 08/15/18 14:00 O2 Sat by Pulse Oximetry (%) 90 L 08/15/18 09:00 Constitutional: Yes: Calm Eyes: Yes: Conjunctiva Clear HENT: Yes: Atraumatic Neck: Yes: Supple Cardiovascular: Yes: S1, S2 Respiratory: Yes: CTA Bilaterally Gastrointestinal: Yes: Soft Genitourinary: Yes: WNL Musculoskeletal: Yes: WNL Edema: No Neurological: Yes: Oriented Psychiatric: Yes: Agitated Labs: CBC, BMP 08/15/18 07:15 08/15/18 07:15 INR, PTT INR 1.25 (0.83-1.09) H 08/12/18 11:20 Assessment/Plan Current Medications Generic Name Dose Route Start Last Admin Trade Name Freq PRN Reason Stop Dose Admin Acetaminophen 650 mg 08/09/18 18:55 08/13/18 21:39 Tylenol - PO 650 mg Q4H PRN Administration PAIN LEVEL 4 - 6 Albuterol Sulfate 2 puff 08/09/18 20:22 08/10/18 05:51 Ventolin Hfa Inhaler - IH 2 puff Q4H PRN Administration SHORT OF BREATH/WHEEZING Amiodarone HCl 200 mg 08/13/18 12:15 08/15/18 10:30 Cordarone - PO 200 mg DAILY [facility] Administration Amlodipine Besylate 10 mg 08/10/18 10:00 08/15/18 10:30 Norvasc - PO 10 mg DAILY [facility] Administration Atorvastatin Calcium 20 mg 08/10/18 22:00 08/14/18 21:44 Lipitor - PO 20 mg HS [facility] Administration Duloxetine HCl 60 mg 08/10/18 10:00 08/15/18 10:30 Cymbalta - PO 60 mg DAILY [facility] Administration Gabapentin 200 mg 08/14/18 14:00 08/15/18 05:17 Neurontin - PO 200 mg TID [facility] Administration Heparin Sodium (Porcine) 1,000 unit 08/11/18 15:48 08/12/18 22:20 Heparin - IVPUSH 1,000 unit PRN PRN Administration Heparin Heparin Sodium (Porcine) 5,000 unit 08/11/18 15:48 Heparin - IVPUSH PRN PRN Heparin Lorazepam 1 mg 08/11/18 15:34 08/14/18 22:07 Ativan - PO 1 mg BID PRN Administration ANXIETY Melatonin 5 mg 08/09/18 20:20 08/14/18 22:07 Melatonin PO 5 mg HS PRN Administration INSOMNIA Metoprolol Succinate 25 mg 08/10/18 10:00 08/15/18 10:30 Toprol Xl - PO 25 mg DAILY [facility] Administration Nicotine 7 mg 08/10/18 10:00 08/14/18 10:31 Nicoderm Patch - TD 7 mg DAILY [facility] Administration Fluticasone/Salmeterol 1 puff 08/09/18 22:00 08/14/18 22:06 Advair 100mcg/50mcg - IH 1 puff BID [facility] Administration Senna 1 tab 08/10/18 10:00 08/15/18 10:30 Senna - PO 1 tab BID [facility] Administration Impression 1. ESRD 2. non compliance with HD schedule 3. chronic back pain 4. anemia 5. anxiety 6. hx of nsaid use 7. chf diastolic 8. possible complex renal cyst 9. HLD 10. nephrolithiasis 11. 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 hyponatremia Plan - will arrange for HD today, pt agrees to HD but does not want full treatment - sodium is low this morning, will adjust dialysis treatment - GI workup in progress - will give epogen
[2018-08-15] MEDS ORDERED: EPOETIN ALFA 2,000 UNIT/1 ML VIAL IVPUSH ONE (15:15)
[2018-08-15] MEDS ORDERED: HEPARIN - 25,000 UNIT in SODIUM CHLORIDE 495 ML IV SCH (15:30)
[2018-08-15] MEDS: FLUTICASONE/SALMETEROL 100 MCG/50 MCG DISKUS IH SCH ×2 (17:46→21:16)
[2018-08-15] MEDS: NICOTINE 7 MG/24 HOURS TOPICAL PATCH TD SCH (17:46)
[2018-08-15] MEDS: HEPARIN - 25,000 UNIT in SODIUM CHLORIDE 495 ML IV SCH (19:00)
[2018-08-15] MEDS: ACETAMINOPHEN 325 MG TABLET (FP) PO PRN (20:49)
[2018-08-15] MEDS: ATORVASTATIN CA 20 MG TABLET (FP) PO SCH (21:16)
[2018-08-15] MEDS: LORazepam 1 MG TABLET PO PRN (21:16)
[2018-08-15] MEDS: MELATONIN 5 MG TABLETS PO PRN (21:19)
[2018-08-16] MEDS: ACETAMINOPHEN 325 MG TABLET (FP) PO PRN ×4 (02:27→20:58)
[2018-08-16] MEDS: GABAPENTIN 100 MG CAPSULE (FP) PO SCH ×3 (06:20→21:01)
--- NOTE | 2018-08-16 07:28 | PN.GI ---
GI Progress Note Subjective: fell last night now with lower extremity discomfort ; denies abd pain / n/v/ d/ c - Objective Vital Signs: Vital Signs Temperature 98.5 F 08/16/18 03:55 Pulse Rate 83 08/16/18 03:55 Respiratory Rate 18 08/16/18 03:55 Blood Pressure 134/82 08/16/18 03:55 O2 Sat by Pulse Oximetry (%) 96 08/15/18 21:00 Constitutional: Well Nourished, No Distress, Calm Eyes: Yes: WNL Neck: Yes: WNL Cardiovascular: Yes: WNL Respiratory: Yes: WNL Gastrointestinal Inspection: Yes: WNL ...Auscultate: Yes: Normoactive Bowel Sounds Musculoskeletal: Yes: WNL Extremities: Yes: WNL Labs: CBC, BMP 08/15/18 07:15 08/15/18 07:15 INR, PTT INR 1.25 (0.83-1.09) H 08/12/18 11:20 Problem List - Problems (1) Anemia Assessment/Plan: fall work up as per primary medical team did not complete prep for colonoscopy ; will plan to prep again Saturday for egd/ colonoscopy Saturday clear liquid diet on Saturday monitor h/h daily Code(s): D64.9 - ANEMIA, UNSPECIFIED
[2018-08-16 08:40] LABS: BASO % 0.6 % (0-2.0); EOS % 2.5 % (0-4.5); HEMATOCRIT 31.8 % (32.4-45.2); HEMOGLOBIN 10.8 GM/dL (10.7-15.3); LYMPH % 11.8 % (8-40); MCH 28.7 pg (25.7-33.7); MCHC 33.9 g/dl (32.0-36.0); MEAN CELL VOLUME 84.8 fl (80-96); MEAN PLT VOLUME 7.3 fl (7.5-11.1); NEUT % 78.1 % (42.8-82.8); PLATELET COUNT 324 K/MM3 (134-434); RBC 3.75 M/mm3 (3.60-5.2); RDW 16.2 % (11.6-15.6)
[2018-08-16 09:15] LABS: ANION GAP 13 MMOL/L (8-16); BLOOD UREA NITROGEN 25 mg/dL (7-18); CALCIUM 8.5 mg/dL (8.5-10.1); CHLORIDE 94 mmol/L (98-107); CO2 23 mmol/L (21-32); CREATININE 3.8 mg/dL (0.55-1.3); GLUCOSE,RANDOM 84 mg/dL (74-106); POTASSIUM 3.3 mmol/L (3.5-5.1); SODIUM 130 mmol/L (136-145)
[2018-08-16] MEDS: metoPROLOL SUCCINATE 25 MG TAB.SR.24H (FP) PO SCH (09:30)
[2018-08-16] MEDS: DULoxetine HCL 30 MG CAPSULE.DR (FP) PO SCH (09:30)
[2018-08-16] MEDS: AMIODARONE HCL 200 MG TABLET (FP) PO SCH (09:31)
[2018-08-16] MEDS: amLODIPine BESYLATE 10 MG TABLET (FP) PO SCH (09:31)
[2018-08-16] MEDS: NICOTINE 7 MG/24 HOURS TOPICAL PATCH TD SCH (09:31)
[2018-08-16] MEDS: SENNOSIDES 8.6MG TABLET (FP) PO SCH ×2 (09:31→21:01)
[2018-08-16] MEDS: FLUTICASONE/SALMETEROL 100 MCG/50 MCG DISKUS IH SCH (09:33)
--- NOTE | 2018-08-16 11:48 | PN ---
Progress Note (short form) - Note Progress Note: pt examined no distress unable to get colonoscopy due to incomplete prep Vital Signs - 24 hr 08/15/18 08/15/18 08/15/18 14:00 14:39 14:50 Temperature 97.4 F L 98 F 98 F Pulse Rate 81 86 90 Respiratory 18 18 18 Rate Blood Pressure 146/74 126/60 138/69 O2 Sat by Pulse Oximetry (%) 08/15/18 08/15/18 08/15/18 15:00 15:25 15:55 Temperature Pulse Rate 78 82 82 Respiratory 18 18 18 Rate Blood Pressure 136/67 111/54 L 111/59 L O2 Sat by Pulse Oximetry (%) 08/15/18 08/15/18 08/15/18 16:25 16:55 17:25 Temperature Pulse Rate 84 80 78 Respiratory 18 18 18 Rate Blood Pressure 124/70 105/62 122/77 O2 Sat by Pulse Oximetry (%) 08/15/18 08/15/18 08/15/18 17:30 18:00 21:00 Temperature 98.4 F Pulse Rate 88 82 Respiratory 20 Rate Blood Pressure 136/61 126/73 O2 Sat by Pulse 96 Oximetry (%) 08/15/18 08/16/18 08/16/18 22:00 00:20 03:55 Temperature 98.5 F 98.6 F 98.5 F Pulse Rate 89 85 83 Respiratory 18 18 18 Rate Blood Pressure 137/65 139/74 134/82 O2 Sat by Pulse Oximetry (%) 08/16/18 06:00 Temperature 98.4 F Pulse Rate 82 Respiratory 18 Rate Blood Pressure 135/91 O2 Sat by Pulse Oximetry (%) Current Medications Generic Name Dose Route Start Last Admin Trade Name Freq PRN Reason Stop Dose Admin Acetaminophen 650 mg 08/09/18 18:55 08/16/18 06:19 Tylenol - PO 650 mg Q4H PRN Administration PAIN LEVEL 4 - 6 Albuterol Sulfate 2 puff 08/09/18 20:22 08/10/18 05:51 Ventolin Hfa Inhaler - IH 2 puff Q4H PRN Administration SHORT OF BREATH/WHEEZING Amiodarone HCl 200 mg 08/13/18 12:15 08/16/18 09:31 Cordarone - PO 200 mg DAILY [facility] Administration Amlodipine Besylate 10 mg 08/10/18 10:00 08/16/18 09:31 Norvasc - PO 10 mg DAILY [facility] Administration Atorvastatin Calcium 20 mg 08/10/18 22:00 08/15/18 21:16 Lipitor - PO 20 mg HS [facility] Administration Duloxetine HCl 60 mg 08/10/18 10:00 08/16/18 09:30 Cymbalta - PO 60 mg DAILY [facility] Administration Gabapentin 200 mg 08/14/18 14:00 08/16/18 06:20 Neurontin - PO 200 mg TID [facility] Administration Heparin Sodium (Porcine) 1,000 unit 08/11/18 15:48 08/12/18 22:20 Heparin - IVPUSH 1,000 unit PRN PRN Administration Heparin Heparin Sodium (Porcine) 5,000 unit 08/11/18 15:48 08/16/18 02:27 Heparin - IVPUSH 5,000 unit PRN PRN Administration Heparin Sodium Chloride 250 mls @ 3,000 mls/hr 08/15/18 14:35 Normal Saline - IV 08/16/18 14:35 PRN PRN Hypotension during Dialysis Heparin Sodium (Porcine) 25, 500 mls @ 20 mls/hr 08/15/18 19:00 08/16/18 02: 24 000 unit/ Sodium Chloride IV 1,150 unit/hr TITR [facility] 23 mls/hr Titration Protocol 1,000 UNIT/HR Lorazepam 1 mg 08/11/18 15:34 08/15/18 21:16 Ativan - PO 1 mg BID PRN Administration ANXIETY Melatonin 5 mg 08/09/18 20:20 08/15/18 21:19 Melatonin PO 5 mg HS PRN Administration INSOMNIA Metoprolol Succinate 25 mg 08/10/18 10:00 08/16/18 09:30 Toprol Xl - PO 25 mg DAILY [facility] Administration Nicotine 7 mg 08/10/18 10:00 08/16/18 09:31 Nicoderm Patch - TD 7 mg DAILY [facility] Administration Fluticasone/Salmeterol 1 puff 08/09/18 22:00 08/16/18 09:33 Advair 100mcg/50mcg - IH 1 puff BID [facility] Administration Senna 1 tab 08/10/18 10:00 08/16/18 09:31 Senna - PO 1 tab BID [facility] Administration Laboratory Results - last 24 hr 08/16/18 08/16/18 08/16/18 00:15 08:05 08:05 WBC 9.0 RBC 3.75 Hgb 10.8 Hct 31.8 L MCV 84.8 MCH 28.7 MCHC 33.9 RDW 16.2 H Plt Count 324 MPV 7.3 L Absolute Neuts (auto) 7.1 Neutrophils % 78.1 Lymphocytes % 11.8 Monocytes % 7.0 Eosinophils % 2.5 Basophils % 0.6 Nucleated RBC % 0 PTT (Actin FS) 36.0 153.6 H Sodium Potassium Chloride Carbon Dioxide Anion Gap BUN Creatinine Creat Clearance w eGFR POC Glucometer Random Glucose Calcium 08/16/18 08/16/18 08:05 11:17 WBC RBC Hgb Hct MCV MCH MCHC RDW Plt Count MPV Absolute Neuts (auto) Neutrophils % Lymphocytes % Monocytes % Eosinophils % Basophils % Nucleated RBC % PTT (Actin FS) Sodium 130 L Potassium 3.3 L Chloride 94 L Carbon Dioxide 23 Anion Gap 13 BUN 25 H Creatinine 3.8 H Creat Clearance w eGFR 12.08 POC Glucometer 158 Random Glucose 84 Calcium 8.5 Physical Exam. Awake/ comfortable. s1 s2 RRR Lungs decreased breath sounds-- better Abd- soft, obese, NT No edema Neuro- awake PLAN Pulmonary and Cardiology eval noted HCT stable GI follow up unsure if pt will comply with prep prior to colonoscopy continue Ativan no opioids Problem List - Problems (1) Anemia Code(s): D64.9 - ANEMIA, UNSPECIFIED (2) ESRD (end stage renal disease) on dialysis Code(s): N18.6 - END STAGE RENAL DISEASE; Z99.2 - DEPENDENCE ON RENAL DIALYSIS (3) Hyperthyroidism Code(s): E05.90 - THYROTOXICOSIS, UNSP WITHOUT THYROTOXIC CRISIS OR STORM
--- NOTE | 2018-08-16 12:13 | PN ---
Progress Note (short form) - Note Progress Note: Resting in NAD. No acute events overnight. No shortness of breath or chest pain. Intake & Output 08/13/18 08/14/18 08/15/18 08/16/18 23:59 23:59 23:59 23:59 Intake Total 1130 1580 400 240 Output Total 100 100 Balance 1130 1580 300 140 Weight 134 lb 8 oz 135 lb 5 oz 134 lb 4 oz 135 lb 2 oz Last Vital Signs Temp Pulse Resp BP Pulse Ox 98.4 F 82 18 135/91 96 08/16/18 06:00 08/16/18 06:00 08/16/18 06:00 08/16/18 06:00 08/15/18 21:00 Active Medications Acetaminophen (Tylenol -) 650 mg PO Q4H PRN PRN Reason: PAIN LEVEL 4 - 6 Last Admin: 08/16/18 06:19 Dose: 650 mg Albuterol Sulfate (Ventolin Hfa Inhaler -) 2 puff IH Q4H PRN PRN Reason: SHORT OF BREATH/WHEEZING Last Admin: 08/10/18 05:51 Dose: 2 puff Amiodarone HCl (Cordarone -) 200 mg PO DAILY [facility] Last Admin: 08/16/18 09:31 Dose: 200 mg Amlodipine Besylate (Norvasc -) 10 mg PO DAILY [facility] Last Admin: 08/16/18 09:31 Dose: 10 mg Atorvastatin Calcium (Lipitor -) 20 mg PO HS [facility] Last Admin: 08/15/18 21:16 Dose: 20 mg Duloxetine HCl (Cymbalta -) 60 mg PO DAILY [facility] Last Admin: 08/16/18 09:30 Dose: 60 mg Gabapentin (Neurontin -) 200 mg PO TID [facility] Last Admin: 08/16/18 06:20 Dose: 200 mg Heparin Sodium (Porcine) (Heparin -) 1,000 unit IVPUSH PRN PRN PRN Reason: Heparin Last Admin: 08/12/18 22:20 Dose: 1,000 unit Heparin Sodium (Porcine) (Heparin -) 5,000 unit IVPUSH PRN PRN PRN Reason: Heparin Last Admin: 08/16/18 02:27 Dose: 5,000 unit Sodium Chloride (Normal Saline -) 250 mls @ 3,000 mls/hr IV PRN PRN PRN Reason: Hypotension during Dialysis Stop: 08/16/18 14:35 Heparin Sodium (Porcine) 25, (000 unit/ Sodium Chloride) 500 mls @ 20 mls/hr IV TITR [facility]; Protocol Last Titration: 08/16/18 02:24 Dose: 1,150 unit/hr, 23 mls/hr Lorazepam (Ativan -) 1 mg PO BID PRN PRN Reason: ANXIETY Last Admin: 08/15/18 21:16 Dose: 1 mg Melatonin (Melatonin) 5 mg PO HS PRN PRN Reason: INSOMNIA Last Admin: 08/15/18 21:19 Dose: 5 mg Metoprolol Succinate (Toprol Xl -) 25 mg PO DAILY [facility] Last Admin: 08/16/18 09:30 Dose: 25 mg Nicotine (Nicoderm Patch -) 7 mg TD DAILY [facility] Last Admin: 08/16/18 09:31 Dose: 7 mg Fluticasone/Salmeterol (Advair 100mcg/50mcg -) 1 puff IH BID [facility] Last Admin: 08/16/18 09:33 Dose: 1 puff Senna (Senna -) 1 tab PO BID [facility] Last Admin: 08/16/18 09:31 Dose: 1 tab Gen: NAD at rest Heart: RRR Lung: decreased breath sounds at the bases Abd: soft, nontender Ext: no edema Laboratory Results - last 24 hr 08/16/18 08/16/18 08/16/18 00:15 08:05 08:05 WBC 9.0 RBC 3.75 Hgb 10.8 Hct 31.8 L MCV 84.8 MCH 28.7 MCHC 33.9 RDW 16.2 H Plt Count 324 MPV 7.3 L Absolute Neuts (auto) 7.1 Neutrophils % 78.1 Lymphocytes % 11.8 Monocytes % 7.0 Eosinophils % 2.5 Basophils % 0.6 Nucleated RBC % 0 PTT (Actin FS) 36.0 153.6 H Sodium Potassium Chloride Carbon Dioxide Anion Gap BUN Creatinine Creat Clearance w eGFR POC Glucometer Random Glucose Calcium 08/16/18 08/16/18 08:05 11:17 WBC RBC Hgb Hct MCV MCH MCHC RDW Plt Count MPV Absolute Neuts (auto) Neutrophils % Lymphocytes % Monocytes % Eosinophils % Basophils % Nucleated RBC % PTT (Actin FS) Sodium 130 L Potassium 3.3 L Chloride 94 L Carbon Dioxide 23 Anion Gap 13 BUN 25 H Creatinine 3.8 H Creat Clearance w eGFR 12.08 POC Glucometer 158 Random Glucose 84 Calcium 8.5 A/P Anemia COPD Lung Nodule ESRD on HD LV Diastolic Dysfunction Paroxysmal Atrial Fibrillation Anxiety Hyperlipidemia Smoker - monitor H/H - Normal transfusion thresholds - HD per renal - inhaled bronchodilators - will need outpt PET scan to further characterize lung nodule, stressed to her importance of f/u. Patient did not follow through last year. - smoking cessation discussed - no pulmonary contraindications for endoscopy/colonoscopy Dr Benavidez
[2018-08-16] MEDS: LORazepam 1 MG TABLET PO PRN ×2 (14:06→21:02)
[2018-08-16] MEDS: ACETAMINOPHEN 1000 MG/100 ML VIAL (NON FORMULARY) IVPB PRN (17:00)
--- NOTE | 2018-08-16 17:00 | PN ---
Progress Note (short form) - Note Progress Note: covering dr hill ESRD s/p hyponatremia Active Medications Acetaminophen (Tylenol -) 650 mg PO Q4H PRN PRN Reason: PAIN LEVEL 4 - 6 Last Admin: 08/16/18 14:06 Dose: 650 mg Acetaminophen (Ofirmev Injection -) 1,000 mg IVPB Q6H PRN PRN Reason: PAIN LEVEL 6-10 Albuterol Sulfate (Ventolin Hfa Inhaler -) 2 puff IH Q4H PRN PRN Reason: SHORT OF BREATH/WHEEZING Last Admin: 08/10/18 05:51 Dose: 2 puff Amiodarone HCl (Cordarone -) 200 mg PO DAILY [facility] Last Admin: 08/16/18 09:31 Dose: 200 mg Amlodipine Besylate (Norvasc -) 10 mg PO DAILY [facility] Last Admin: 08/16/18 09:31 Dose: 10 mg Atorvastatin Calcium (Lipitor -) 20 mg PO HS [facility] Last Admin: 08/15/18 21:16 Dose: 20 mg Duloxetine HCl (Cymbalta -) 60 mg PO DAILY [facility] Last Admin: 08/16/18 09:30 Dose: 60 mg Gabapentin (Neurontin -) 200 mg PO TID [facility] Last Admin: 08/16/18 13:59 Dose: 200 mg Heparin Sodium (Porcine) (Heparin -) 1,000 unit IVPUSH PRN PRN PRN Reason: Heparin Last Admin: 08/12/18 22:20 Dose: 1,000 unit Heparin Sodium (Porcine) (Heparin -) 5,000 unit IVPUSH PRN PRN PRN Reason: Heparin Last Admin: 08/16/18 02:27 Dose: 5,000 unit Heparin Sodium (Porcine) 25, (000 unit/ Sodium Chloride) 500 mls @ 20 mls/hr IV TITR [facility]; Protocol Last Titration: 08/16/18 02:24 Dose: 1,150 unit/hr, 23 mls/hr Lorazepam (Ativan -) 1 mg PO BID PRN PRN Reason: ANXIETY Last Admin: 08/16/18 14:06 Dose: 1 mg Melatonin (Melatonin) 5 mg PO HS PRN PRN Reason: INSOMNIA Last Admin: 08/15/18 21:19 Dose: 5 mg Metoprolol Succinate (Toprol Xl -) 25 mg PO DAILY [facility] Last Admin: 08/16/18 09:30 Dose: 25 mg Nicotine (Nicoderm Patch -) 7 mg TD DAILY [facility] Last Admin: 08/16/18 09:31 Dose: 7 mg Fluticasone/Salmeterol (Advair 100mcg/50mcg -) 1 puff IH BID [facility] Last Admin: 08/16/18 09:33 Dose: 1 puff Senna (Senna -) 1 tab PO BID [facility] Last Admin: 08/16/18 09:31 Dose: 1 tab Last Vital Signs Temp Pulse Resp BP Pulse Ox 97.8 F 81 18 112/44 L 96 08/16/18 15:20 08/16/18 15:20 08/16/18 06:00 08/16/18 15:20 08/15/18 21:00 CBC, BMP 08/16/18 08:05 08/16/18 08:05 IMP ESRD leg pain hyponatremia Plan- avoid excessive water intake f/u labs
[2018-08-16] MEDS: HEPARIN NA (PORCINE) 5,000 UNITS/ML 1ML VIAL IVPUSH PRN (17:53)
[2018-08-16] MEDS ORDERED: PT OWN MED DRAWER 7, Y5N ONE (20:41)
[2018-08-16] MEDS: ALBUTEROL SO4 8 GM HFA INHALER IH PRN (20:43)
[2018-08-16] MEDS: ATORVASTATIN CA 20 MG TABLET (FP) PO SCH (21:01)
[2018-08-16] MEDS: MELATONIN 5 MG TABLETS PO PRN (21:01)
[2018-08-17] MEDS: FLUTICASONE/SALMETEROL 100 MCG/50 MCG DISKUS IH SCH ×3 (00:02→21:19)
[2018-08-17] MEDS: GABAPENTIN 100 MG CAPSULE (FP) PO SCH ×3 (06:25→21:18)
[2018-08-17] MEDS: ALBUTEROL SO4 8 GM HFA INHALER IH PRN (06:26)
--- NOTE | 2018-08-17 07:18 | PN.GI ---
GI Progress Note Subjective: no new complaints - Objective Vital Signs: Vital Signs Temperature 98.3 F 08/17/18 05:36 Pulse Rate 76 08/17/18 05:36 Respiratory Rate 18 08/17/18 05:36 Blood Pressure 124/86 08/17/18 05:36 O2 Sat by Pulse Oximetry (%) 96 08/16/18 21:00 Constitutional: Well Nourished, No Distress Eyes: Yes: WNL Neck: Yes: WNL Cardiovascular: Yes: WNL Respiratory: Yes: WNL Gastrointestinal Inspection: Yes: WNL Extremities: Yes: WNL Edema: No Labs: CBC, BMP 08/16/18 08:05 08/16/18 08:05 INR, PTT INR 1.25 (0.83-1.09) H 08/12/18 11:20 Problem List - Problems (1) Anemia Assessment/Plan: clear liquid diet / bowel prep for egd / colonoscopy Saturday - unclear if she will follow through with the prep ?? Npo midnight monitor h/h daily hold heparin infusion at 6 am tomorrow leukocytosis noted - no fever / repeat cbc ordered Code(s): D64.9 - ANEMIA, UNSPECIFIED
[2018-08-17 08:06] LABS: HEMATOCRIT 29.5 % (32.4-45.2); HEMOGLOBIN 9.9 GM/dL (10.7-15.3); MCH 28.7 pg (25.7-33.7); MCHC 33.5 g/dl (32.0-36.0); MEAN CELL VOLUME 85.6 fl (80-96); MEAN PLT VOLUME 7.6 fl (7.5-11.1); PLATELET COUNT 324 K/MM3 (134-434); RBC 3.44 M/mm3 (3.60-5.2); RDW 16.4 % (11.6-15.6); WHITE BLOOD COUNT 14.8 K/mm3 (4.0-10.0)
[2018-08-17] MEDS ORDERED: PT OWN MED DRAWER 7, Y5N ONE (10:02)
[2018-08-17] MEDS: ACETAMINOPHEN 325 MG TABLET (FP) PO PRN (10:10)
[2018-08-17] MEDS: amLODIPine BESYLATE 10 MG TABLET (FP) PO SCH (10:11)
[2018-08-17] MEDS: SENNOSIDES 8.6MG TABLET (FP) PO SCH ×2 (10:11→21:19)
[2018-08-17] MEDS: metoPROLOL SUCCINATE 25 MG TAB.SR.24H (FP) PO SCH (10:11)
[2018-08-17] MEDS: AMIODARONE HCL 200 MG TABLET (FP) PO SCH (10:11)
[2018-08-17] MEDS: DULoxetine HCL 30 MG CAPSULE.DR (FP) PO SCH (10:11)
[2018-08-17] MEDS: NICOTINE 7 MG/24 HOURS TOPICAL PATCH TD SCH (10:11)
[2018-08-17] MEDS: HEPARIN NA (PORCINE) 5,000 UNITS/ML 1ML VIAL IVPUSH PRN (10:11)
[2018-08-17] MEDS: HEPARIN - 25,000 UNIT in SODIUM CHLORIDE 495 ML IV SCH ×3 (10:12→21:31)
--- NOTE | 2018-08-17 10:25 | PN ---
Progress Note (short form) - Note Progress Note: pt examined no distress unable to get colonoscopy due to incomplete prep c/o pain in right hip, back pain , leg pain -- wanting percocet xrays reviewed-- no acute findings Vital Signs - 24 hr 08/16/18 08/16/18 08/16/18 19:18 21:00 22:00 Temperature 98 F 98 F Pulse Rate 79 79 Respiratory 19 19 19 Rate Blood Pressure 118/54 L 105/80 O2 Sat by Pulse 96 Oximetry (%) 08/17/18 08/17/18 08/17/18 05:36 08:05 09:00 Temperature 98.3 F 98.3 F Pulse Rate 76 76 Respiratory 18 18 Rate Blood Pressure 124/86 145/80 O2 Sat by Pulse 96 Oximetry (%) Current Medications Generic Name Dose Route Start Last Admin Trade Name Freq PRN Reason Stop Dose Admin Acetaminophen 650 mg 08/09/18 18:55 08/17/18 10:10 Tylenol - PO 650 mg Q4H PRN Administration PAIN LEVEL 4 - 6 Acetaminophen 1,000 mg 08/16/18 16:19 08/16/18 17:00 Ofirmev Injection - IVPB 1,000 mg Q6H PRN Administration PAIN LEVEL 6-10 Albuterol Sulfate 2 puff 08/09/18 20:22 08/17/18 06:26 Ventolin Hfa Inhaler - IH 2 puff Q4H PRN Administration SHORT OF BREATH/WHEEZING Amiodarone HCl 200 mg 08/13/18 12:15 08/17/18 10:11 Cordarone - PO 200 mg DAILY [facility] Administration Amlodipine Besylate 10 mg 08/10/18 10:00 08/17/18 10:11 Norvasc - PO 10 mg DAILY [facility] Administration Atorvastatin Calcium 20 mg 08/10/18 22:00 08/16/18 21:01 Lipitor - PO 20 mg HS [facility] Administration Cyclobenzaprine HCl 5 mg 08/17/18 10:45 08/17/18 13:19 Cyclobenzaprine Hcl PO 5 mg DAILY [facility] Administration Duloxetine HCl 60 mg 08/10/18 10:00 08/17/18 10:11 Cymbalta - PO 60 mg DAILY [facility] Administration Gabapentin 300 mg 08/17/18 14:00 08/17/18 13:19 Neurontin - PO 300 mg TID [facility] Administration Heparin Sodium (Porcine) 1,000 unit 08/11/18 15:48 08/17/18 10:11 Heparin - IVPUSH 1,000 unit PRN PRN Administration Heparin Heparin Sodium (Porcine) 5,000 unit 08/11/18 15:48 08/16/18 02:27 Heparin - IVPUSH 5,000 unit PRN PRN Administration Heparin Heparin Sodium (Porcine) 25, 500 mls @ 20 mls/hr 08/15/18 19:00 08/17/18 10: 12 000 unit/ Sodium Chloride IV 950 unit/hr TITR [facility] 19 mls/hr Administration Protocol 1,000 UNIT/HR Sodium Chloride 250 mls @ 3,000 mls/hr 08/17/18 14:30 Normal Saline - IV 08/18/18 14:30 PRN PRN Hypotension during Dialysis Lidocaine 1 patch 08/17/18 10:45 08/17/18 11:00 Lidoderm Patch - TP 1 patch DAILY [facility] Administration Lorazepam 1 mg 08/11/18 15:34 08/17/18 11:00 Ativan - PO 1 mg BID PRN Administration ANXIETY Melatonin 5 mg 08/09/18 20:20 08/16/18 21:01 Melatonin PO 5 mg HS PRN Administration INSOMNIA Metoprolol Succinate 25 mg 08/10/18 10:00 08/17/18 10:11 Toprol Xl - PO 25 mg DAILY [facility] Administration Miscellaneous 1 each 08/17/18 22:00 Lidoderm Patch Removal [facility] DAILY@2200 [facility] Nicotine 7 mg 08/10/18 10:00 08/17/18 10:11 Nicoderm Patch - TD 7 mg DAILY [facility] Administration Fluticasone/Salmeterol 1 puff 08/09/18 22:00 08/17/18 10:11 Advair 100mcg/50mcg - IH 1 puff BID [facility] Administration Senna 1 tab 08/10/18 10:00 08/17/18 10:11 Senna - PO 1 tab BID [facility] Administration Laboratory Results - last 24 hr 08/17/18 08/17/18 08/17/18 06:30 06:30 16:05 WBC 14.8 H RBC 3.44 L Hgb 9.9 L Hct 29.5 L MCV 85.6 MCH 28.7 MCHC 33.5 RDW 16.4 H Plt Count 324 MPV 7.6 PTT (Actin FS) 46.6 H 61.8 H Physical Exam. Awake/ comfortable. s1 s2 RRR Lungs decreased breath sounds-- better Abd- soft, obese, NT No edema Neuro- awake A/P Anemia ESRD on HD Low back pain , arthritis -- add lidoderm patch -- iv tylenol prn -- for colonoscopy tomorrow continue Ativan no opioids Problem List - Problems (1) Anemia Code(s): D64.9 - ANEMIA, UNSPECIFIED (2) ESRD (end stage renal disease) on dialysis Code(s): N18.6 - END STAGE RENAL DISEASE; Z99.2 - DEPENDENCE ON RENAL DIALYSIS (3) Hyperthyroidism Code(s): E05.90 - THYROTOXICOSIS, UNSP WITHOUT THYROTOXIC CRISIS OR STORM
[2018-08-17] MEDS: LIDOCAINE 5% TOPICAL PATCH TP SCH (11:00)
[2018-08-17] MEDS: LORazepam 1 MG TABLET PO PRN ×2 (11:00→22:30)
--- NOTE | 2018-08-17 12:16 | PN ---
Progress Note (short form) - Note Progress Note: Resting in NAD. No acute events overnight. No shortness of breath or chest pain. Intake & Output 08/14/18 08/15/18 08/16/18 08/17/18 23:59 23:59 23:59 23:59 Intake Total 1492 359 9772 Output Total 100 100 Balance 7885 302 3258 Weight 135 lb 5 oz 134 lb 4 oz 135 lb 2 oz 132 lb Last Vital Signs Temp Pulse Resp BP Pulse Ox 98.3 F 76 18 145/80 96 08/17/18 08:05 08/17/18 08:05 08/17/18 08:05 08/17/18 08:05 08/16/18 21:00 Active Medications Acetaminophen (Tylenol -) 650 mg PO Q4H PRN PRN Reason: PAIN LEVEL 4 - 6 Last Admin: 08/17/18 10:10 Dose: 650 mg Acetaminophen (Ofirmev Injection -) 1,000 mg IVPB Q6H PRN PRN Reason: PAIN LEVEL 6-10 Last Admin: 08/16/18 17:00 Dose: 1,000 mg Albuterol Sulfate (Ventolin Hfa Inhaler -) 2 puff IH Q4H PRN PRN Reason: SHORT OF BREATH/WHEEZING Last Admin: 08/17/18 06:26 Dose: 2 puff Amiodarone HCl (Cordarone -) 200 mg PO DAILY [facility] Last Admin: 08/17/18 10:11 Dose: 200 mg Amlodipine Besylate (Norvasc -) 10 mg PO DAILY [facility] Last Admin: 08/17/18 10:11 Dose: 10 mg Atorvastatin Calcium (Lipitor -) 20 mg PO HS [facility] Last Admin: 08/16/18 21:01 Dose: 20 mg Cyclobenzaprine HCl (Cyclobenzaprine Hcl) 5 mg PO DAILY [facility] Duloxetine HCl (Cymbalta -) 60 mg PO DAILY [facility] Last Admin: 08/17/18 10:11 Dose: 60 mg Gabapentin (Neurontin -) 300 mg PO TID [facility] Heparin Sodium (Porcine) (Heparin -) 1,000 unit IVPUSH PRN PRN PRN Reason: Heparin Last Admin: 08/17/18 10:11 Dose: 1,000 unit Heparin Sodium (Porcine) (Heparin -) 5,000 unit IVPUSH PRN PRN PRN Reason: Heparin Last Admin: 08/16/18 02:27 Dose: 5,000 unit Heparin Sodium (Porcine) 25, (000 unit/ Sodium Chloride) 500 mls @ 20 mls/hr IV TITR [facility]; Protocol Last Admin: 08/17/18 10:12 Dose: 950 unit/hr, 19 mls/hr Lidocaine (Lidoderm Patch -) 1 patch TP DAILY [facility] Last Admin: 08/17/18 11:00 Dose: 1 patch Lorazepam (Ativan -) 1 mg PO BID PRN PRN Reason: ANXIETY Last Admin: 08/17/18 11:00 Dose: 1 mg Melatonin (Melatonin) 5 mg PO HS PRN PRN Reason: INSOMNIA Last Admin: 08/16/18 21:01 Dose: 5 mg Metoprolol Succinate (Toprol Xl -) 25 mg PO DAILY [facility] Last Admin: 08/17/18 10:11 Dose: 25 mg Miscellaneous (Lidoderm Patch Removal) 1 each [facility] DAILY@2200 [facility] Nicotine (Nicoderm Patch -) 7 mg TD DAILY [facility] Last Admin: 08/17/18 10:11 Dose: 7 mg Fluticasone/Salmeterol (Advair 100mcg/50mcg -) 1 puff IH BID [facility] Last Admin: 08/17/18 10:11 Dose: 1 puff Senna (Senna -) 1 tab PO BID [facility] Last Admin: 08/17/18 10:11 Dose: 1 tab Gen: NAD at rest Heart: RRR Lung: decreased breath sounds at the bases Abd: soft, nontender Ext: no edema Laboratory Results - last 24 hr 08/13/18 08/16/18 08/17/18 09:35 16:30 06:30 WBC 14.8 H RBC 3.44 L Hgb 9.9 L Hct 29.5 L MCV 85.6 MCH 28.7 MCHC 33.5 RDW 16.4 H Plt Count 324 MPV 7.6 PTT (Actin FS) 45.1 H Blood Type A POSITIVE Antibody Screen Negative Crossmatch See Detail 08/17/18 06:30 WBC RBC Hgb Hct MCV MCH MCHC RDW Plt Count MPV PTT (Actin FS) 46.6 H Blood Type Antibody Screen Crossmatch A/P Anemia COPD Lung Nodule ESRD on HD LV Diastolic Dysfunction Paroxysmal Atrial Fibrillation Anxiety Hyperlipidemia Smoker - monitor H/H - Normal transfusion thresholds - HD per renal - inhaled bronchodilators - will need outpatient PET scan to further characterize lung nodule, stressed to her importance of f/u. Patient did not follow through last year. - smoking cessation discussed - no pulmonary contraindications for endoscopy/colonoscopy Dr Benavidez
[2018-08-17] MEDS: CYCLOBENZAPRINE HCL 5 MG TABLET PO SCH (13:19)
[2018-08-17] MEDS ORDERED: SODIUM CHLORIDE 250 ML IV PRN (15:17)
--- NOTE | 2018-08-17 15:21 | PN ---
Progress Note (short form) - Note Progress Note: covering dr hill ESRD s/p hyponatremia Current Medications Acetaminophen (Tylenol -) 650 mg PO Q4H PRN PRN Reason: PAIN LEVEL 4 - 6 Last Admin: 08/17/18 10:10 Dose: 650 mg Acetaminophen (Ofirmev Injection -) 1,000 mg IVPB Q6H PRN PRN Reason: PAIN LEVEL 6-10 Last Admin: 08/16/18 17:00 Dose: 1,000 mg Albuterol Sulfate (Ventolin Hfa Inhaler -) 2 puff IH Q4H PRN PRN Reason: SHORT OF BREATH/WHEEZING Last Admin: 08/17/18 06:26 Dose: 2 puff Amiodarone HCl (Cordarone -) 200 mg PO DAILY [facility] Last Admin: 08/17/18 10:11 Dose: 200 mg Amlodipine Besylate (Norvasc -) 10 mg PO DAILY [facility] Last Admin: 08/17/18 10:11 Dose: 10 mg Atorvastatin Calcium (Lipitor -) 20 mg PO HS [facility] Last Admin: 08/16/18 21:01 Dose: 20 mg Cyclobenzaprine HCl (Cyclobenzaprine Hcl) 5 mg PO DAILY [facility] Last Admin: 08/17/18 13:19 Dose: 5 mg Duloxetine HCl (Cymbalta -) 60 mg PO DAILY [facility] Last Admin: 08/17/18 10:11 Dose: 60 mg Gabapentin (Neurontin -) 300 mg PO TID [facility] Last Admin: 08/17/18 13:19 Dose: 300 mg Heparin Sodium (Porcine) (Heparin -) 1,000 unit IVPUSH PRN PRN PRN Reason: Heparin Last Admin: 08/17/18 10:11 Dose: 1,000 unit Heparin Sodium (Porcine) (Heparin -) 5,000 unit IVPUSH PRN PRN PRN Reason: Heparin Last Admin: 08/16/18 02:27 Dose: 5,000 unit Heparin Sodium (Porcine) 25, (000 unit/ Sodium Chloride) 500 mls @ 20 mls/hr IV TITR [facility]; Protocol Last Admin: 08/17/18 10:12 Dose: 950 unit/hr, 19 mls/hr Sodium Chloride (Normal Saline -) 250 mls @ 3,000 mls/hr IV PRN PRN PRN Reason: Hypotension during Dialysis Stop: 08/18/18 14:30 Lidocaine (Lidoderm Patch -) 1 patch TP DAILY [facility] Last Admin: 08/17/18 11:00 Dose: 1 patch Lorazepam (Ativan -) 1 mg PO BID PRN PRN Reason: ANXIETY Last Admin: 08/17/18 11:00 Dose: 1 mg Melatonin (Melatonin) 5 mg PO HS PRN PRN Reason: INSOMNIA Last Admin: 08/16/18 21:01 Dose: 5 mg Metoprolol Succinate (Toprol Xl -) 25 mg PO DAILY [facility] Last Admin: 08/17/18 10:11 Dose: 25 mg Miscellaneous (Lidoderm Patch Removal) 1 each [facility] DAILY@2200 [facility] Nicotine (Nicoderm Patch -) 7 mg TD DAILY [facility] Last Admin: 08/17/18 10:11 Dose: 7 mg Fluticasone/Salmeterol (Advair 100mcg/50mcg -) 1 puff IH BID [facility] Last Admin: 08/17/18 10:11 Dose: 1 puff Senna (Senna -) 1 tab PO BID [facility] Last Admin: 08/17/18 10:11 Dose: 1 tab Last Vital Signs Temp Pulse Resp BP Pulse Ox 98.3 F 76 18 145/80 96 08/17/18 08:05 08/17/18 08:05 08/17/18 08:05 08/17/18 08:05 08/17/18 09:00 Lungs clear Heart reg Abd soft nontender CBC, BMP 08/16/18 08:05 08/16/18 08:05 IMP ESRD leg pain hyponatremia Plan- avoid excessive water intake f/u labs HD ordered for tomorrow
[2018-08-17] MEDS ORDERED: BISACODYL 5 MG TABLET.DR (FP) PO ONE (17:19)
[2018-08-17] MEDS ORDERED: PEG 3350/NA SULF BICARB CL/KCL 4000 ML SOLN.RECON PO ONE (17:20)
[2018-08-17 18:36] LABS: BASO % 0.3 % (0-2.0); EOS % 4.7 % (0-4.5); HEMATOCRIT 26.4 % (32.4-45.2); HEMOGLOBIN 8.7 GM/dL (10.7-15.3); LYMPH % 9.4 % (8-40); MCH 28.2 pg (25.7-33.7); MEAN CELL VOLUME 85.5 fl (80-96); MEAN PLT VOLUME 7.5 fl (7.5-11.1); MONO % 6.8 % (3.8-10.2); NEUT % 78.8 % (42.8-82.8); PLATELET COUNT 279 K/MM3 (134-434); RBC 3.09 M/mm3 (3.60-5.2); RDW 16.5 % (11.6-15.6); WHITE BLOOD COUNT 12.6 K/mm3 (4.0-10.0)
[2018-08-17] MEDS: ACETAMINOPHEN 1000 MG/100 ML VIAL (NON FORMULARY) IVPB PRN (21:18)
[2018-08-17] MEDS: ATORVASTATIN CA 20 MG TABLET (FP) PO SCH (21:19)
[2018-08-17] MEDS: MELATONIN 5 MG TABLETS PO PRN (21:20)
[2018-08-17] MEDS: LIDOCAINE PATCH REMOVAL MC SCH (21:28)
[2018-08-18] MEDS: ACETAMINOPHEN 325 MG TABLET (FP) PO PRN ×3 (02:35→21:33)
[2018-08-18] MEDS: HEPARIN - 25,000 UNIT in SODIUM CHLORIDE 495 ML IV SCH ×2 (02:36→20:39)
[2018-08-18] MEDS: GABAPENTIN 100 MG CAPSULE (FP) PO SCH ×3 (06:07→21:32)
[2018-08-18] MEDS ORDERED: INSULIN (NOVOLOG) ASPART 100 UNITS/ML 10ML VIAL ONE (06:55)
--- NOTE | 2018-08-18 10:37 | PN ---
Progress Note (short form) - Note Progress Note: pt seen/ examined chart reviewed awake/ comfortable mood stable for endo today Vital Signs Temp 97.8 F 08/18/18 06:00 Pulse 74 08/18/18 06:00 Resp 18 08/17/18 22:00 BP 118/70 08/18/18 06:00 Pulse Ox 97 08/17/18 21:00 Intake & Output 08/17/18 08/17/18 08/18/18 11:59 23:59 11:59 Intake Total 522 290 Balance 522 290 Weight 132 lb 133 lb 11.2 oz Intake: IV 222 190 Heparin - 25,000 Unit In 222 190 Normal Saline - 495 ml @ 1,000 UNIT/HR 20 mls/hr IV TITR [facility] Rx#: [id number] IVPB 100 Oral 300 Other: Voiding Method Incontinent Incontinent # Unmeasured Voids Void 1 3 Bowel Movement No No Yes Weight Measurement Method Built in Bedscale Built in Bedscale Active Medications Acetaminophen (Tylenol -) 650 mg PO Q4H PRN PRN Reason: PAIN LEVEL 4 - 6 Last Admin: 08/18/18 02:35 Dose: 650 mg Acetaminophen (Ofirmev Injection -) 1,000 mg IVPB Q6H PRN PRN Reason: PAIN LEVEL 6-10 Last Admin: 08/17/18 21:18 Dose: 1,000 mg Albuterol Sulfate (Ventolin Hfa Inhaler -) 2 puff IH Q4H PRN PRN Reason: SHORT OF BREATH/WHEEZING Last Admin: 08/17/18 06:26 Dose: 2 puff Amiodarone HCl (Cordarone -) 200 mg PO DAILY [facility] Last Admin: 08/17/18 10:11 Dose: 200 mg Amlodipine Besylate (Norvasc -) 10 mg PO DAILY [facility] Last Admin: 08/17/18 10:11 Dose: 10 mg Atorvastatin Calcium (Lipitor -) 20 mg PO HS [facility] Last Admin: 08/17/18 21:19 Dose: 20 mg Cyclobenzaprine HCl (Cyclobenzaprine Hcl) 5 mg PO DAILY [facility] Last Admin: 08/17/18 13:19 Dose: 5 mg Duloxetine HCl (Cymbalta -) 60 mg PO DAILY [facility] Last Admin: 08/17/18 10:11 Dose: 60 mg Gabapentin (Neurontin -) 300 mg PO TID [facility] Last Admin: 08/18/18 06:07 Dose: Not Given Heparin Sodium (Porcine) (Heparin -) 1,000 unit IVPUSH PRN PRN PRN Reason: Heparin Last Admin: 08/17/18 10:11 Dose: 1,000 unit Heparin Sodium (Porcine) (Heparin -) 5,000 unit IVPUSH PRN PRN PRN Reason: Heparin Last Admin: 08/16/18 02:27 Dose: 5,000 unit Heparin Sodium (Porcine) 25, (000 unit/ Sodium Chloride) 500 mls @ 20 mls/hr IV TITR [facility]; Protocol Last Admin: 08/18/18 02:36 Dose: 950 unit/hr, 19 mls/hr Sodium Chloride (Normal Saline -) 250 mls @ 3,000 mls/hr IV PRN PRN PRN Reason: Hypotension during Dialysis Stop: 08/18/18 14:30 Lidocaine (Lidoderm Patch -) 1 patch TP DAILY [facility] Last Admin: 08/17/18 11:00 Dose: 1 patch Lorazepam (Ativan -) 1 mg PO BID PRN PRN Reason: ANXIETY Last Admin: 08/17/18 22:30 Dose: 1 mg Melatonin (Melatonin) 5 mg PO HS PRN PRN Reason: INSOMNIA Last Admin: 08/17/18 21:20 Dose: 5 mg Metoprolol Succinate (Toprol Xl -) 25 mg PO DAILY [facility] Last Admin: 08/17/18 10:11 Dose: 25 mg Miscellaneous (Lidoderm Patch Removal) 1 each [facility] DAILY@2200 [facility] Last Admin: 08/17/18 21:28 Dose: 1 each Nicotine (Nicoderm Patch -) 7 mg TD DAILY [facility] Last Admin: 08/17/18 10:11 Dose: 7 mg Fluticasone/Salmeterol (Advair 100mcg/50mcg -) 1 puff IH BID [facility] Last Admin: 08/17/18 21:19 Dose: 1 puff Senna (Senna -) 1 tab PO BID [facility] Last Admin: 08/17/18 21:19 Dose: 1 tab CBC, BMP 08/17/18 17:50 08/16/18 08:05 Physical Exam. Awake/ comfortable. s1 s2 RRR Lungs decreased breath sounds--at bases Abd- soft, obese, NT No edema Neuro- awake A/P Anemia ESRD on HD Anxiety for Endo today continue Ativan no opioids tylenol prn will follow further recommendations after endo
[2018-08-18] MEDS: metoPROLOL SUCCINATE 25 MG TAB.SR.24H (FP) PO SCH (11:13)
[2018-08-18] MEDS: AMIODARONE HCL 200 MG TABLET (FP) PO SCH (11:14)
[2018-08-18] MEDS: SENNOSIDES 8.6MG TABLET (FP) PO SCH ×2 (11:14→21:32)
[2018-08-18] MEDS: amLODIPine BESYLATE 10 MG TABLET (FP) PO SCH (11:14)
[2018-08-18] MEDS: DULoxetine HCL 30 MG CAPSULE.DR (FP) PO SCH (11:14)
[2018-08-18] MEDS: NICOTINE 7 MG/24 HOURS TOPICAL PATCH TD SCH (11:15)
[2018-08-18] MEDS: CYCLOBENZAPRINE HCL 5 MG TABLET PO SCH (11:15)
[2018-08-18] MEDS: LORazepam 1 MG TABLET PO PRN ×2 (11:16→22:36)
[2018-08-18] MEDS: FLUTICASONE/SALMETEROL 100 MCG/50 MCG DISKUS IH SCH ×2 (11:17→21:36)
[2018-08-18] MEDS: LIDOCAINE 5% TOPICAL PATCH TP SCH (11:18)
--- NOTE | 2018-08-18 11:43 | PN ---
Progress Note (short form) - Note Progress Note: Pt planned for EGD/colonoscopy today however was receiving heparin gtt through 11am this morning despite GI recommendations to hold at 6am. Due to need to wait 6 hours after heparin is held and with scheduling/staffing issues at that time will need to cancel procedure today. Recommendations: -Resume clear liquid diet today -Check cbc, bmp today -Take additional 2L golytely at 6pm -NPOpMn -Please hold heparin at 6am tomorrow (08/19/18) in preparation for endoscopy Discussed with nursing staff
--- NOTE | 2018-08-18 13:06 | PN ---
Progress Note, Physician History of Present Illness: PULMONARY ALERT,NO DISTRESS,-CP,-SOB. ENDOSCOPY CANCELLED - Current Medication List Current Medications: Active Medications Acetaminophen (Tylenol -) 650 mg PO Q4H PRN PRN Reason: PAIN LEVEL 4 - 6 Last Admin: 08/18/18 02:35 Dose: 650 mg Acetaminophen (Ofirmev Injection -) 1,000 mg IVPB Q6H PRN PRN Reason: PAIN LEVEL 6-10 Last Admin: 08/17/18 21:18 Dose: 1,000 mg Albuterol Sulfate (Ventolin Hfa Inhaler -) 2 puff IH Q4H PRN PRN Reason: SHORT OF BREATH/WHEEZING Last Admin: 08/17/18 06:26 Dose: 2 puff Amiodarone HCl (Cordarone -) 200 mg PO DAILY [facility] Last Admin: 08/18/18 11:14 Dose: 200 mg Amlodipine Besylate (Norvasc -) 10 mg PO DAILY [facility] Last Admin: 08/18/18 11:14 Dose: 10 mg Atorvastatin Calcium (Lipitor -) 20 mg PO HS [facility] Last Admin: 08/17/18 21:19 Dose: 20 mg Cyclobenzaprine HCl (Cyclobenzaprine Hcl) 5 mg PO DAILY [facility] Last Admin: 08/18/18 11:15 Dose: 5 mg Duloxetine HCl (Cymbalta -) 60 mg PO DAILY [facility] Last Admin: 08/18/18 11:14 Dose: 60 mg Gabapentin (Neurontin -) 300 mg PO TID [facility] Last Admin: 08/18/18 06:07 Dose: Not Given Heparin Sodium (Porcine) (Heparin -) 1,000 unit IVPUSH PRN PRN PRN Reason: Heparin Last Admin: 08/17/18 10:11 Dose: 1,000 unit Heparin Sodium (Porcine) (Heparin -) 5,000 unit IVPUSH PRN PRN PRN Reason: Heparin Last Admin: 08/16/18 02:27 Dose: 5,000 unit Heparin Sodium (Porcine) 25, (000 unit/ Sodium Chloride) 500 mls @ 20 mls/hr IV TITR JACKY; Protocol Last Admin: 08/18/18 02:36 Dose: 950 unit/hr, 19 mls/hr Sodium Chloride (Normal Saline -) 250 mls @ 3,000 mls/hr IV PRN PRN PRN Reason: Hypotension during Dialysis Stop: 08/18/18 14:30 Lidocaine (Lidoderm Patch -) 1 patch TP DAILY [facility] Last Admin: 08/18/18 11:18 Dose: 1 patch Lorazepam (Ativan -) 1 mg PO BID PRN PRN Reason: ANXIETY Last Admin: 08/18/18 11:16 Dose: 1 mg Melatonin (Melatonin) 5 mg PO HS PRN PRN Reason: INSOMNIA Last Admin: 08/17/18 21:20 Dose: 5 mg Metoprolol Succinate (Toprol Xl -) 25 mg PO DAILY [facility] Last Admin: 08/18/18 11:13 Dose: 25 mg Miscellaneous (Lidoderm Patch Removal) 1 each MC DAILY@2200 [facility] Last Admin: 08/17/18 21:28 Dose: 1 each Nicotine (Nicoderm Patch -) 7 mg TD DAILY [facility] Last Admin: 08/18/18 11:15 Dose: 7 mg Fluticasone/Salmeterol (Advair 100mcg/50mcg -) 1 puff IH BID [facility] Last Admin: 08/18/18 11:17 Dose: 1 puff Senna (Senna -) 1 tab PO BID [facility] Last Admin: 08/18/18 11:14 Dose: 1 tab - Objective Vital Signs: Vital Signs Temperature 97.8 F 08/18/18 06:00 Pulse Rate 74 08/18/18 06:00 Respiratory Rate 18 08/17/18 22:00 Blood Pressure 118/70 08/18/18 06:00 O2 Sat by Pulse Oximetry (%) 97 08/17/18 21:00 Constitutional: Yes: Well Nourished, Calm Eyes: Yes: WNL HENT: Yes: WNL Neck: Yes: WNL Cardiovascular: Yes: Regular Rate and Rhythm, S1, S2 Respiratory: Yes: Wheezes (FEW WHEEZES) Gastrointestinal: Yes: Normal Bowel Sounds, Soft Extremities: Yes: WNL Edema: No Labs: CBC, BMP Problem List - Problems (1) Anemia Code(s): D64.9 - ANEMIA, UNSPECIFIED (2) DVT prophylaxis Code(s): OIR4507 - (3) Smoker unmotivated to quit Code(s): F17.200 - NICOTINE DEPENDENCE, UNSPECIFIED, UNCOMPLICATED (4) Acute on chronic kidney failure Code(s): N17.9 - ACUTE KIDNEY FAILURE, UNSPECIFIED; N18.9 - CHRONIC KIDNEY DISEASE, UNSPECIFIED Qualifiers: Acute renal failure type: unspecified Chronic kidney disease stage: stage 4 (severe) Qualified Code(s): N17.9 - Acute kidney failure, unspecified; N18.4 - Chronic kidney disease, stage 4 (severe) (5) CKD (chronic kidney disease) Code(s): N18.9 - CHRONIC KIDNEY DISEASE, UNSPECIFIED (6) COPD (chronic obstructive pulmonary disease) Code(s): J44.9 - CHRONIC OBSTRUCTIVE PULMONARY DISEASE, UNSPECIFIED Qualifiers: COPD type: unspecified COPD Qualified Code(s): J44.9 - Chronic obstructive pulmonary disease, unspecified (7) ESRD (end stage renal disease) on dialysis Code(s): N18.6 - END STAGE RENAL DISEASE; Z99.2 - DEPENDENCE ON RENAL DIALYSIS (8) Emphysema lung Code(s): J43.9 - EMPHYSEMA, UNSPECIFIED (9) Lung nodule Code(s): R91.1 - SOLITARY PULMONARY NODULE Assessment/Plan A/P Anemia COPD Lung Nodule ESRD on HD LV Diastolic Dysfunction Paroxysmal Atrial Fibrillation Anxiety Hyperlipidemia Smoker - monitor H/H - Normal transfusion thresholds - HD per renal - inhaled bronchodilators - will need outpatient PET scan to further characterize lung nodule, stressed to her importance of f/u. Patient did not follow through last year. - smoking cessation discussed - no pulmonary contraindications for endoscopy/colonoscopy DR CHILDS
--- NOTE | 2018-08-18 15:02 | PN ---
Progress Note, Physician History of Present Illness: Pt seen and examined at bedside. She is awake and alert. She denies fevers or chills. - Current Medication List Current Medications: Active Medications Acetaminophen (Tylenol -) 650 mg PO Q4H PRN PRN Reason: PAIN LEVEL 4 - 6 Last Admin: 08/18/18 02:35 Dose: 650 mg Acetaminophen (Ofirmev Injection -) 1,000 mg IVPB Q6H PRN PRN Reason: PAIN LEVEL 6-10 Last Admin: 08/17/18 21:18 Dose: 1,000 mg Albuterol Sulfate (Ventolin Hfa Inhaler -) 2 puff IH Q4H PRN PRN Reason: SHORT OF BREATH/WHEEZING Last Admin: 08/17/18 06:26 Dose: 2 puff Amiodarone HCl (Cordarone -) 200 mg PO DAILY [facility] Last Admin: 08/18/18 11:14 Dose: 200 mg Amlodipine Besylate (Norvasc -) 10 mg PO DAILY [facility] Last Admin: 08/18/18 11:14 Dose: 10 mg Atorvastatin Calcium (Lipitor -) 20 mg PO HS [facility] Last Admin: 08/17/18 21:19 Dose: 20 mg Cyclobenzaprine HCl (Cyclobenzaprine Hcl) 5 mg PO DAILY [facility] Last Admin: 08/18/18 11:15 Dose: 5 mg Duloxetine HCl (Cymbalta -) 60 mg PO DAILY [facility] Last Admin: 08/18/18 11:14 Dose: 60 mg Gabapentin (Neurontin -) 300 mg PO TID [facility] Last Admin: 08/18/18 06:07 Dose: Not Given Heparin Sodium (Porcine) (Heparin -) 1,000 unit IVPUSH PRN PRN PRN Reason: Heparin Last Admin: 08/17/18 10:11 Dose: 1,000 unit Heparin Sodium (Porcine) (Heparin -) 5,000 unit IVPUSH PRN PRN PRN Reason: Heparin Last Admin: 08/16/18 02:27 Dose: 5,000 unit Heparin Sodium (Porcine) 25, (000 unit/ Sodium Chloride) 500 mls @ 20 mls/hr IV TITR JACKY; Protocol Last Admin: 08/18/18 02:36 Dose: 950 unit/hr, 19 mls/hr Sodium Chloride (Normal Saline -) 250 mls @ 3,000 mls/hr IV PRN PRN PRN Reason: Hypotension during Dialysis Stop: 08/18/18 14:30 Lidocaine (Lidoderm Patch -) 1 patch TP DAILY [facility] Last Admin: 08/18/18 11:18 Dose: 1 patch Lorazepam (Ativan -) 1 mg PO BID PRN PRN Reason: ANXIETY Last Admin: 08/18/18 11:16 Dose: 1 mg Melatonin (Melatonin) 5 mg PO HS PRN PRN Reason: INSOMNIA Last Admin: 08/17/18 21:20 Dose: 5 mg Metoprolol Succinate (Toprol Xl -) 25 mg PO DAILY [facility] Last Admin: 08/18/18 11:13 Dose: 25 mg Miscellaneous (Lidoderm Patch Removal) 1 each MC DAILY@2200 [facility] Last Admin: 08/17/18 21:28 Dose: 1 each Nicotine (Nicoderm Patch -) 7 mg TD DAILY [facility] Last Admin: 08/18/18 11:15 Dose: 7 mg Fluticasone/Salmeterol (Advair 100mcg/50mcg -) 1 puff IH BID [facility] Last Admin: 08/18/18 11:17 Dose: 1 puff Senna (Senna -) 1 tab PO BID [facility] Last Admin: 08/18/18 11:14 Dose: 1 tab - Objective Vital Signs: Vital Signs Temperature 97.8 F 08/18/18 06:00 Pulse Rate 74 08/18/18 06:00 Respiratory Rate 18 08/17/18 22:00 Blood Pressure 118/70 08/18/18 06:00 O2 Sat by Pulse Oximetry (%) 97 08/17/18 21:00 Constitutional: Yes: Calm Eyes: Yes: Conjunctiva Clear HENT: Yes: Atraumatic Cardiovascular: Yes: S1, S2 Respiratory: Yes: Rhonchi Gastrointestinal: Yes: Soft Genitourinary: Yes: WNL Musculoskeletal: Yes: WNL Edema: No Neurological: Yes: Oriented Psychiatric: Yes: Oriented Labs: CBC, BMP 08/17/18 17:50 08/16/18 08:05 INR, PTT INR 1.25 (0.83-1.09) H 08/12/18 11:20 Problem List - Problems (1) Anemia Code(s): D64.9 - ANEMIA, UNSPECIFIED (2) COPD (chronic obstructive pulmonary disease) Code(s): J44.9 - CHRONIC OBSTRUCTIVE PULMONARY DISEASE, UNSPECIFIED Qualifiers: COPD type: unspecified COPD Qualified Code(s): J44.9 - Chronic obstructive pulmonary disease, unspecified (3) ESRD (end stage renal disease) Code(s): N18.6 - END STAGE RENAL DISEASE Assessment/Plan Current Medications Generic Name Dose Route Start Last Admin Trade Name Freq PRN Reason Stop Dose Admin Acetaminophen 650 mg 08/09/18 18:55 08/18/18 02:35 Tylenol - PO 650 mg Q4H PRN Administration PAIN LEVEL 4 - 6 Acetaminophen 1,000 mg 08/16/18 16:19 08/17/18 21:18 Ofirmev Injection - IVPB 1,000 mg Q6H PRN Administration PAIN LEVEL 6-10 Albuterol Sulfate 2 puff 08/09/18 20:22 08/17/18 06:26 Ventolin Hfa Inhaler - IH 2 puff Q4H PRN Administration SHORT OF BREATH/WHEEZING Amiodarone HCl 200 mg 08/13/18 12:15 08/18/18 11:14 Cordarone - PO 200 mg DAILY JACKY Administration Amlodipine Besylate 10 mg 08/10/18 10:00 08/18/18 11:14 Norvasc - PO 10 mg DAILY JACKY Administration Atorvastatin Calcium 20 mg 08/10/18 22:00 08/17/18 21:19 Lipitor - PO 20 mg HS JACKY Administration Cyclobenzaprine HCl 5 mg 08/17/18 10:45 08/18/18 11:15 Cyclobenzaprine Hcl PO 5 mg DAILY JACKY Administration Duloxetine HCl 60 mg 08/10/18 10:00 08/18/18 11:14 Cymbalta - PO 60 mg DAILY JACKY Administration Epoetin Zachery 10,000 unit 08/18/18 14:56 Procrit - IVPUSH 08/18/18 14:57 ONCE ONE Gabapentin 300 mg 08/17/18 14:00 08/18/18 06:07 Neurontin - PO Not Given TID JACKY Heparin Sodium (Porcine) 1,000 unit 08/11/18 15:48 08/17/18 10:11 Heparin - IVPUSH 1,000 unit PRN PRN Administration Heparin Heparin Sodium (Porcine) 5,000 unit 08/11/18 15:48 08/16/18 02:27 Heparin - IVPUSH 5,000 unit PRN PRN Administration Heparin Heparin Sodium (Porcine) 25, 500 mls @ 20 mls/hr 08/15/18 19:00 08/18/18 02: 36 000 unit/ Sodium Chloride IV 950 unit/hr TITR JACKY 19 mls/hr Administration Protocol 1,000 UNIT/HR Sodium Chloride 250 mls @ 3,000 mls/hr 08/17/18 14:30 Normal Saline - IV 08/18/18 14:30 PRN PRN Hypotension during Dialysis Lidocaine 1 patch 08/17/18 10:45 08/18/18 11:18 Lidoderm Patch - TP 1 patch DAILY [facility] Administration Lorazepam 1 mg 08/11/18 15:34 08/18/18 11:16 Ativan - PO 1 mg BID PRN Administration ANXIETY Melatonin 5 mg 08/09/18 20:20 08/17/18 21:20 Melatonin PO 5 mg HS PRN Administration INSOMNIA Metoprolol Succinate 25 mg 08/10/18 10:00 08/18/18 11:13 Toprol Xl - PO 25 mg DAILY [facility]ACKY Administration Miscellaneous 1 each 08/17/18 22:00 08/17/18 21:28 Lidoderm Patch Removal MC 1 each DAILY@2200 JACKY Administration Nicotine 7 mg 08/10/18 10:00 08/18/18 11:15 Nicoderm Patch - TD 7 mg DAILY [facility] Administration Fluticasone/Salmeterol 1 puff 08/09/18 22:00 08/18/18 11:17 Advair 100mcg/50mcg - IH 1 puff BID JACKY Administration Senna 1 tab 08/10/18 10:00 08/18/18 11:14 Senna - PO 1 tab BID JACKY Administration Impression 1. ESRD 2. non compliance with HD schedule 3. chronic back pain 4. anemia 5. anxiety 6. hx of nsaid use 7. chf diastolic 8. possible complex renal cyst 9. HLD 10. nephrolithiasis 11. 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 hyponatremia Plan - HD today - will give epogen - check labs pre-HD - GI follow up - will give epogen
[2018-08-18] MEDS ORDERED: EPOETIN ALFA 10,000 UNIT/1 ML VIAL IVPUSH ONE (15:30)
[2018-08-18 16:03] LABS: BASO % 0.7 % (0-2.0); EOS % 4.1 % (0-4.5); HEMATOCRIT 27.4 % (32.4-45.2); HEMOGLOBIN 9.2 GM/dL (10.7-15.3); LYMPH % 9.2 % (8-40); MCH 28.6 pg (25.7-33.7); MCHC 33.6 g/dl (32.0-36.0); MEAN CELL VOLUME 85.2 fl (80-96); MEAN PLT VOLUME 7.5 fl (7.5-11.1); MONO % 6.6 % (3.8-10.2); NEUT % 79.4 % (42.8-82.8); PLATELET COUNT 328 K/MM3 (134-434); RBC 3.21 M/mm3 (3.60-5.2); RDW 16.9 % (11.6-15.6); WHITE BLOOD COUNT 10.6 K/mm3 (4.0-10.0)
[2018-08-18] MEDS ORDERED: PEG 3350/NA SULF BICARB CL/KCL 4000 ML SOLN.RECON PO ONE (16:22)
[2018-08-18 16:23] LABS: ALBUMIN 2.6 g/dl (3.4-5.0); ALK PHOS 220 U/L (45-117); ANION GAP 14 MMOL/L (8-16); BILIRUBIN,TOTAL 0.6 mg/dL (0.2-1); BLOOD UREA NITROGEN 46 mg/dL (7-18); CALCIUM 8.4 mg/dL (8.5-10.1); CHLORIDE 93 mmol/L (98-107); CO2 20 mmol/L (21-32); CREATININE 5.8 mg/dL (0.55-1.3); GLUCOSE,RANDOM 75 mg/dL (74-106); POTASSIUM 3.8 mmol/L (3.5-5.1); SGOT/AST 14 U/L (15-37); SGPT/ALT 12 U/L (13-61); SODIUM 127 mmol/L (136-145); TOT PROT 6.2 g/dl (6.4-8.2)
[2018-08-18 17:20] VITALS: BMI 23.6
[2018-08-18] MEDS: ATORVASTATIN CA 20 MG TABLET (FP) PO SCH (21:32)
[2018-08-18] MEDS: LIDOCAINE PATCH REMOVAL MC SCH (21:33)
[2018-08-18] MEDS: ALBUTEROL SO4 8 GM HFA INHALER IH PRN (21:53)
[2018-08-18] MEDS: MELATONIN 5 MG TABLETS PO PRN (22:35)
[2018-08-19] MEDS: ACETAMINOPHEN 325 MG TABLET (FP) PO PRN ×3 (02:52→21:59)
[2018-08-19] MEDS: GABAPENTIN 100 MG CAPSULE (FP) PO SCH ×3 (05:50→21:58)
[2018-08-19] MEDS: FLUTICASONE/SALMETEROL 100 MCG/50 MCG DISKUS IH SCH ×2 (09:34→21:58)
[2018-08-19] MEDS: LIDOCAINE 5% TOPICAL PATCH TP SCH (09:35)
[2018-08-19] MEDS: NICOTINE 7 MG/24 HOURS TOPICAL PATCH TD SCH (09:35)
[2018-08-19] MEDS: SENNOSIDES 8.6MG TABLET (FP) PO SCH ×2 (10:00→21:58)
[2018-08-19] MEDS ORDERED: MIDAZOLAM HCL 2 MG/2 ML SINGLE DOSE VIAL ONE ×2 (12:31)
--- NOTE | 2018-08-19 13:13 | PN ---
Progress Note (short form) - Note Progress Note: EGD/Colon complete. Report left in procedural section of physical chart and dolores be scanned into [employer] Problem List - Problems (1) Anemia Code(s): D64.9 - ANEMIA, UNSPECIFIED
--- NOTE | 2018-08-19 13:56 | PN ---
Progress Note (short form) - Note Progress Note: pt examined no distress s/p EGD /colonoscopy findings noted 08/18/18 08/18/18 08/18/18 17:50 18:00 21:00 Temperature Pulse Rate 89 94 H Respiratory 18 18 18 Rate Blood Pressure 122/71 127/65 O2 Sat by Pulse 96 Oximetry (%) 08/18/18 08/19/18 08/19/18 22:00 06:40 09:42 Temperature 98.1 F 98.4 F 98.2 F Pulse Rate 84 83 82 Respiratory 20 20 20 Rate Blood Pressure 122/72 115/60 117/63 O2 Sat by Pulse Oximetry (%) 08/19/18 08/19/18 08/19/18 13:08 13:23 13:40 Temperature 98.3 F Pulse Rate 79 77 77 Respiratory 18 20 21 H Rate Blood Pressure 109/66 123/63 136/74 O2 Sat by Pulse 97 95 97 Oximetry (%) 08/19/18 08/19/18 13:43 15:13 Temperature 98.3 F Pulse Rate 77 85 Respiratory 21 H Rate Blood Pressure 136/74 136/68 O2 Sat by Pulse 97 Oximetry (%) Physical Exam. Awake/ comfortable. s1 s2 RRR Lungs decreased breath sounds-- better Abd- soft, obese, NT No edema Neuro- awake A/P Anemia ESRD on HD Low back pain , arthritis -- EGd/colonoscopy noted --pain control --resume Eliquis tonight -- dc planning -- PET scan as outpt -- will need [employer] eval as outpt as she c/o vaginal pain to GI continue Ativan no opioids Problem List - Problems (1) Anemia Code(s): D64.9 - ANEMIA, UNSPECIFIED (2) ESRD (end stage renal disease) on dialysis Code(s): N18.6 - END STAGE RENAL DISEASE; Z99.2 - DEPENDENCE ON RENAL DIALYSIS (3) Hyperthyroidism Code(s): E05.90 - THYROTOXICOSIS, UNSP WITHOUT THYROTOXIC CRISIS OR STORM
[2018-08-19] MEDS: DULoxetine HCL 30 MG CAPSULE.DR (FP) PO SCH (15:04)
[2018-08-19] MEDS: metoPROLOL SUCCINATE 25 MG TAB.SR.24H (FP) PO SCH (15:05)
[2018-08-19] MEDS: CYCLOBENZAPRINE HCL 5 MG TABLET PO SCH (15:05)
[2018-08-19] MEDS: AMIODARONE HCL 200 MG TABLET (FP) PO SCH (15:05)
[2018-08-19] MEDS: amLODIPine BESYLATE 10 MG TABLET (FP) PO SCH (15:05)
--- NOTE | 2018-08-19 15:42 | PN ---
Progress Note, Physician History of Present Illness: pulmonary awake,s/p endoscopy tolerated procedure well w/o complications. pt congested,min cough - Current Medication List Current Medications: Active Medications Acetaminophen (Tylenol -) 650 mg PO Q4H PRN PRN Reason: PAIN LEVEL 4 - 6 Last Admin: 08/19/18 02:52 Dose: 650 mg Acetaminophen (Ofirmev Injection -) 1,000 mg IVPB Q6H PRN PRN Reason: PAIN LEVEL 6-10 Last Admin: 08/17/18 21:18 Dose: 1,000 mg Albuterol Sulfate (Ventolin Hfa Inhaler -) 2 puff IH Q4H PRN PRN Reason: SHORT OF BREATH/WHEEZING Last Admin: 08/18/18 21:53 Dose: 2 puff Amiodarone HCl (Cordarone -) 200 mg PO DAILY [facility] Last Admin: 08/19/18 15:05 Dose: 200 mg Amlodipine Besylate (Norvasc -) 10 mg PO DAILY [facility] Last Admin: 08/19/18 15:05 Dose: 10 mg Apixaban (Eliquis -) 2.5 mg PO BID [facility] Atorvastatin Calcium (Lipitor -) 20 mg PO HS [facility] Last Admin: 08/18/18 21:32 Dose: 20 mg Cyclobenzaprine HCl (Cyclobenzaprine Hcl) 5 mg PO DAILY [facility] Last Admin: 08/19/18 15:05 Dose: 5 mg Duloxetine HCl (Cymbalta -) 60 mg PO DAILY [facility] Last Admin: 08/19/18 15:04 Dose: 60 mg Gabapentin (Neurontin -) 300 mg PO TID [facility] Last Admin: 08/19/18 15:05 Dose: 300 mg Lidocaine (Lidoderm Patch -) 1 patch TP DAILY [facility] Last Admin: 08/19/18 09:35 Dose: 1 patch Lorazepam (Ativan -) 1 mg PO BID PRN PRN Reason: ANXIETY Last Admin: 08/18/18 22:36 Dose: 1 mg Melatonin (Melatonin) 5 mg PO HS PRN PRN Reason: INSOMNIA Last Admin: 08/18/18 22:35 Dose: 5 mg Metoprolol Succinate (Toprol Xl -) 25 mg PO DAILY [facility] Last Admin: 08/19/18 15:05 Dose: 25 mg Miscellaneous (Lidoderm Patch Removal) 1 each MC DAILY@2200 [facility] Last Admin: 08/18/18 21:33 Dose: 1 each Nicotine (Nicoderm Patch -) 7 mg TD DAILY [facility] Last Admin: 08/19/18 09:35 Dose: 7 mg Fluticasone/Salmeterol (Advair 100mcg/50mcg -) 1 puff IH BID [facility] Last Admin: 08/19/18 09:34 Dose: 1 puff Senna (Senna -) 1 tab PO BID [facility] Last Admin: 08/19/18 10:00 Dose: Not Given - Objective Vital Signs: Vital Signs Temperature 98.3 F 08/19/18 15:13 Pulse Rate 85 08/19/18 15:13 Respiratory Rate 21 H 08/19/18 13:43 Blood Pressure 136/68 08/19/18 15:13 O2 Sat by Pulse Oximetry (%) 97 08/19/18 13:43 Constitutional: Yes: Well Nourished, Calm Eyes: Yes: WNL HENT: Yes: WNL Neck: Yes: WNL Cardiovascular: Yes: Regular Rate and Rhythm, S1, S2 Respiratory: Yes: Rhonchi (scattered esther rhonchi) Gastrointestinal: Yes: Normal Bowel Sounds, Soft Extremities: Yes: WNL Edema: No Labs: CBC, BMP 08/18/18 14:50 Problem List - Problems (1) Anemia Code(s): D64.9 - ANEMIA, UNSPECIFIED (2) DVT prophylaxis Code(s): [id number] - (3) Smoker unmotivated to quit Code(s): F17.200 - NICOTINE DEPENDENCE, UNSPECIFIED, UNCOMPLICATED (4) Acute on chronic kidney failure Code(s): N17.9 - ACUTE KIDNEY FAILURE, UNSPECIFIED; N18.9 - CHRONIC KIDNEY DISEASE, UNSPECIFIED Qualifiers: Acute renal failure type: unspecified Chronic kidney disease stage: stage 4 (severe) Qualified Code(s): N17.9 - Acute kidney failure, unspecified; N18.4 - Chronic kidney disease, stage 4 (severe) (5) CKD (chronic kidney disease) Code(s): N18.9 - CHRONIC KIDNEY DISEASE, UNSPECIFIED (6) COPD (chronic obstructive pulmonary disease) Code(s): J44.9 - CHRONIC OBSTRUCTIVE PULMONARY DISEASE, UNSPECIFIED Qualifiers: COPD type: unspecified COPD Qualified Code(s): J44.9 - Chronic obstructive pulmonary disease, unspecified (7) ESRD (end stage renal disease) on dialysis Code(s): N18.6 - END STAGE RENAL DISEASE; Z99.2 - DEPENDENCE ON RENAL DIALYSIS (8) Emphysema lung Code(s): J43.9 - EMPHYSEMA, UNSPECIFIED (9) Lung nodule Code(s): R91.1 - SOLITARY PULMONARY NODULE Assessment/Plan A/P Anemia COPD Lung Nodule ESRD on HD LV Diastolic Dysfunction Paroxysmal Atrial Fibrillation Anxiety Hyperlipidemia Smoker - monitor H/H - Normal transfusion thresholds - HD per renal - inhaled bronchodilators - will need outpatient PET scan to further characterize lung nodule, stressed to her importance of f/u. Patient did not follow through last year. - smoking cessation discussed - no pulmonary contraindications for endoscopy/colonoscopy - incentive spirometer,encourage cough - chest x-ray DR CHILDS
--- NOTE | 2018-08-19 16:34 | PN ---
Progress Note, Physician History of Present Illness: Pt seen and examined at bedside. She is awake and alert. She went for the endoscopy today. - Current Medication List Current Medications: Active Medications Acetaminophen (Tylenol -) 650 mg PO Q4H PRN PRN Reason: PAIN LEVEL 4 - 6 Last Admin: 08/19/18 02:52 Dose: 650 mg Acetaminophen (Ofirmev Injection -) 1,000 mg IVPB Q6H PRN PRN Reason: PAIN LEVEL 6-10 Last Admin: 08/17/18 21:18 Dose: 1,000 mg Albuterol Sulfate (Ventolin Hfa Inhaler -) 2 puff IH Q4H PRN PRN Reason: SHORT OF BREATH/WHEEZING Last Admin: 08/18/18 21:53 Dose: 2 puff Amiodarone HCl (Cordarone -) 200 mg PO DAILY [facility] Last Admin: 08/19/18 15:05 Dose: 200 mg Amlodipine Besylate (Norvasc -) 10 mg PO DAILY [facility] Last Admin: 08/19/18 15:05 Dose: 10 mg Apixaban (Eliquis -) 2.5 mg PO BID [facility] Atorvastatin Calcium (Lipitor -) 20 mg PO HS [facility] Last Admin: 08/18/18 21:32 Dose: 20 mg Cyclobenzaprine HCl (Cyclobenzaprine Hcl) 5 mg PO DAILY [facility] Last Admin: 08/19/18 15:05 Dose: 5 mg Duloxetine HCl (Cymbalta -) 60 mg PO DAILY [facility] Last Admin: 08/19/18 15:04 Dose: 60 mg Gabapentin (Neurontin -) 300 mg PO TID [facility] Last Admin: 08/19/18 15:05 Dose: 300 mg Lidocaine (Lidoderm Patch -) 1 patch TP DAILY [facility] Last Admin: 08/19/18 09:35 Dose: 1 patch Lorazepam (Ativan -) 1 mg PO BID PRN PRN Reason: ANXIETY Last Admin: 08/18/18 22:36 Dose: 1 mg Melatonin (Melatonin) 5 mg PO HS PRN PRN Reason: INSOMNIA Last Admin: 08/18/18 22:35 Dose: 5 mg Metoprolol Succinate (Toprol Xl -) 25 mg PO DAILY [facility] Last Admin: 08/19/18 15:05 Dose: 25 mg Miscellaneous (Lidoderm Patch Removal) 1 each MC DAILY@2200 [facility] Last Admin: 08/18/18 21:33 Dose: 1 each Nicotine (Nicoderm Patch -) 7 mg TD DAILY [facility] Last Admin: 08/19/18 09:35 Dose: 7 mg Fluticasone/Salmeterol (Advair 100mcg/50mcg -) 1 puff IH BID [facility] Last Admin: 08/19/18 09:34 Dose: 1 puff Senna (Senna -) 1 tab PO BID [facility] Last Admin: 08/19/18 10:00 Dose: Not Given - Objective Vital Signs: Vital Signs Temperature 98.3 F 08/19/18 15:13 Pulse Rate 85 08/19/18 15:13 Respiratory Rate 21 H 08/19/18 13:43 Blood Pressure 136/68 08/19/18 15:13 O2 Sat by Pulse Oximetry (%) 97 08/19/18 13:43 Constitutional: Yes: Calm Eyes: Yes: Conjunctiva Clear HENT: Yes: Atraumatic Neck: Yes: Supple Cardiovascular: Yes: S1, S2 Respiratory: Yes: CTA Bilaterally Gastrointestinal: Yes: Soft Genitourinary: Yes: WNL Musculoskeletal: Yes: Back Pain Edema: No Neurological: Yes: Oriented Psychiatric: Yes: Oriented Labs: CBC, BMP 08/18/18 14:50 08/18/18 14:50 INR, PTT INR 1.25 (0.83-1.09) H 08/12/18 11:20 Problem List - Problems (1) Anemia Code(s): D64.9 - ANEMIA, UNSPECIFIED (2) COPD (chronic obstructive pulmonary disease) Code(s): J44.9 - CHRONIC OBSTRUCTIVE PULMONARY DISEASE, UNSPECIFIED Qualifiers: COPD type: unspecified COPD Qualified Code(s): J44.9 - Chronic obstructive pulmonary disease, unspecified (3) ESRD (end stage renal disease) Code(s): N18.6 - END STAGE RENAL DISEASE Assessment/Plan Current Medications Generic Name Dose Route Start Last Admin Trade Name Freq PRN Reason Stop Dose Admin Acetaminophen 650 mg 08/09/18 18:55 08/19/18 02:52 Tylenol - PO 650 mg Q4H PRN Administration PAIN LEVEL 4 - 6 Acetaminophen 1,000 mg 08/16/18 16:19 08/17/18 21:18 Ofirmev Injection - IVPB 1,000 mg Q6H PRN Administration PAIN LEVEL 6-10 Albuterol Sulfate 2 puff 08/09/18 20:22 08/18/18 21:53 Ventolin Hfa Inhaler - IH 2 puff Q4H PRN Administration SHORT OF BREATH/WHEEZING Amiodarone HCl 200 mg 08/13/18 12:15 08/19/18 15:05 Cordarone - PO 200 mg DAILY [facility]ACK[facility] Administration Amlodipine Besylate 10 mg 08/10/18 10:00 08/19/18 15:05 Norvasc - PO 10 mg DAILY [facility]ACK[facility] Administration Apixaban 2.5 mg 08/19/18 22:00 Eliquis - PO BID [facility]ACK[facility] Atorvastatin Calcium 20 mg 08/10/18 22:00 08/18/18 21:32 Lipitor - PO 20 mg HS JACKY Administration Cyclobenzaprine HCl 5 mg 08/17/18 10:45 08/19/18 15:05 Cyclobenzaprine Hcl PO 5 mg DAILY [facility]ACK[facility] Administration Duloxetine HCl 60 mg 08/10/18 10:00 08/19/18 15:04 Cymbalta - PO 60 mg DAILY [facility] Administration Gabapentin 300 mg 08/17/18 14:00 08/19/18 15:05 Neurontin - PO 300 mg TID JACKY Administration Lidocaine 1 patch 08/17/18 10:45 08/19/18 09:35 Lidoderm Patch - TP 1 patch DAILY [facility] Administration Lorazepam 1 mg 08/11/18 15:34 08/18/18 22:36 Ativan - PO 1 mg BID PRN Administration ANXIETY Melatonin 5 mg 08/09/18 20:20 08/18/18 22:35 Melatonin PO 5 mg HS PRN Administration INSOMNIA Metoprolol Succinate 25 mg 08/10/18 10:00 08/19/18 15:05 Toprol Xl - PO 25 mg DAILY JACKY Administration Miscellaneous 1 each 08/17/18 22:00 08/18/18 21:33 Lidoderm Patch Removal MC 1 each DAILY@2200 JACKY Administration Nicotine 7 mg 08/10/18 10:00 08/19/18 09:35 Nicoderm Patch - TD 7 mg DAILY JACKY Administration Fluticasone/Salmeterol 1 puff 08/09/18 22:00 08/19/18 09:34 Advair 100mcg/50mcg - IH 1 puff BID JACKY Administration Senna 1 tab 08/10/18 10:00 08/19/18 10:00 Senna - PO Not Given BID JACKY Impression 1. ESRD 2. non compliance with HD schedule 3. chronic back pain 4. anemia 5. anxiety 6. hx of nsaid use 7. chf diastolic 8. possible complex renal cyst 9. HLD 10. nephrolithiasis 11. 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 hyponatremia Plan - HD in am - check hg and bmp - cont epogen with hd - will follow
[2018-08-19] MEDS: MELATONIN 5 MG TABLETS PO PRN (21:57)
[2018-08-19] MEDS: ATORVASTATIN CA 20 MG TABLET (FP) PO SCH (21:58)
[2018-08-19] MEDS: LIDOCAINE PATCH REMOVAL MC SCH (21:58)
[2018-08-19] MEDS: APIXABAN 2.5 MG TABLET PO SCH (21:58)
[2018-08-19] MEDS: LORazepam 1 MG TABLET PO PRN (21:58)
[2018-08-20] MEDS: ACETAMINOPHEN 325 MG TABLET (FP) PO PRN (04:25)
[2018-08-20] MEDS: GABAPENTIN 100 MG CAPSULE (FP) PO SCH ×2 (06:08→15:21)
[2018-08-20] MEDS: LIDOCAINE 5% TOPICAL PATCH TP SCH (10:00)
[2018-08-20] MEDS: DULoxetine HCL 30 MG CAPSULE.DR (FP) PO SCH (10:15)
[2018-08-20] MEDS: AMIODARONE HCL 200 MG TABLET (FP) PO SCH (10:18)
[2018-08-20] MEDS: metoPROLOL SUCCINATE 25 MG TAB.SR.24H (FP) PO SCH (10:18)
[2018-08-20] MEDS: CYCLOBENZAPRINE HCL 5 MG TABLET PO SCH (10:18)
[2018-08-20] MEDS: amLODIPine BESYLATE 10 MG TABLET (FP) PO SCH (10:19)
[2018-08-20] MEDS: APIXABAN 2.5 MG TABLET PO SCH (10:20)
[2018-08-20] MEDS: SENNOSIDES 8.6MG TABLET (FP) PO SCH (10:20)
[2018-08-20] MEDS: FLUTICASONE/SALMETEROL 100 MCG/50 MCG DISKUS IH SCH (11:14)
[2018-08-20] MEDS: NICOTINE 7 MG/24 HOURS TOPICAL PATCH TD SCH (11:19)
--- NOTE | 2018-08-20 12:28 | PN ---
Progress Note, Physician History of Present Illness: Pt seen and examined at bedside. She is awake and alert. She is due for HD today. - Current Medication List Current Medications: Active Medications Acetaminophen (Tylenol -) 650 mg PO Q4H PRN PRN Reason: PAIN LEVEL 4 - 6 Last Admin: 08/20/18 04:25 Dose: 650 mg Acetaminophen (Ofirmev Injection -) 1,000 mg IVPB Q6H PRN PRN Reason: PAIN LEVEL 6-10 Last Admin: 08/17/18 21:18 Dose: 1,000 mg Albuterol Sulfate (Ventolin Hfa Inhaler -) 2 puff IH Q4H PRN PRN Reason: SHORT OF BREATH/WHEEZING Last Admin: 08/18/18 21:53 Dose: 2 puff Amiodarone HCl (Cordarone -) 200 mg PO DAILY [facility] Last Admin: 08/19/18 15:05 Dose: 200 mg Amlodipine Besylate (Norvasc -) 10 mg PO DAILY [facility] Last Admin: 08/19/18 15:05 Dose: 10 mg Apixaban (Eliquis -) 2.5 mg PO BID [facility] Last Admin: 08/19/18 21:58 Dose: 2.5 mg Atorvastatin Calcium (Lipitor -) 20 mg PO HS [facility] Last Admin: 08/19/18 21:58 Dose: 20 mg Cyclobenzaprine HCl (Cyclobenzaprine Hcl) 5 mg PO DAILY [facility] Last Admin: 08/19/18 15:05 Dose: 5 mg Duloxetine HCl (Cymbalta -) 60 mg PO DAILY [facility] Last Admin: 08/19/18 15:04 Dose: 60 mg Epoetin Zachery (Epogen -) 10,000 unit IVPUSH ONCE ONE Stop: 08/20/18 16:35 Gabapentin (Neurontin -) 300 mg PO TID [facility] Last Admin: 08/20/18 06:08 Dose: 300 mg Sodium Chloride (Normal Saline -) 250 mls @ 3,000 mls/hr IV PRN PRN PRN Reason: Hypotension during Dialysis Stop: 08/20/18 16:34 Lidocaine (Lidoderm Patch -) 1 patch TP DAILY [facility] Last Admin: 08/19/18 09:35 Dose: 1 patch Melatonin (Melatonin) 5 mg PO HS PRN PRN Reason: INSOMNIA Last Admin: 08/19/18 21:57 Dose: 5 mg Metoprolol Succinate (Toprol Xl -) 25 mg PO DAILY [facility] Last Admin: 08/19/18 15:05 Dose: 25 mg Miscellaneous (Lidoderm Patch Removal) 1 each MC DAILY@2200 [facility] Last Admin: 08/19/18 21:58 Dose: 1 each Nicotine (Nicoderm Patch -) 7 mg TD DAILY [facility] Last Admin: 08/19/18 09:35 Dose: 7 mg Fluticasone/Salmeterol (Advair 100mcg/50mcg -) 1 puff IH BID [facility] Last Admin: 08/19/18 21:58 Dose: 1 puff Senna (Senna -) 1 tab PO BID [facility] Last Admin: 08/19/18 21:58 Dose: 1 tab - Objective Vital Signs: Vital Signs Temperature 98.3 F 08/20/18 06:47 Pulse Rate 83 08/20/18 06:47 Respiratory Rate 20 08/20/18 06:47 Blood Pressure 118/62 08/20/18 06:47 O2 Sat by Pulse Oximetry (%) 97 08/19/18 22:00 Constitutional: Yes: Calm Eyes: Yes: Conjunctiva Clear HENT: Yes: Atraumatic Neck: Yes: Supple Cardiovascular: Yes: S1, S2 Respiratory: Yes: CTA Bilaterally Gastrointestinal: Yes: Soft Genitourinary: Yes: WNL Musculoskeletal: Yes: WNL Edema: No Neurological: Yes: Oriented Psychiatric: Yes: Oriented Labs: CBC, BMP 08/18/18 14:50 08/18/18 14:50 INR, PTT INR 1.25 (0.83-1.09) H 08/12/18 11:20 Problem List - Problems (1) Anemia Code(s): D64.9 - ANEMIA, UNSPECIFIED (2) COPD (chronic obstructive pulmonary disease) Code(s): J44.9 - CHRONIC OBSTRUCTIVE PULMONARY DISEASE, UNSPECIFIED Qualifiers: COPD type: unspecified COPD Qualified Code(s): J44.9 - Chronic obstructive pulmonary disease, unspecified (3) ESRD (end stage renal disease) Code(s): N18.6 - END STAGE RENAL DISEASE Assessment/Plan Current Medications Generic Name Dose Route Start Last Admin Trade Name Freq PRN Reason Stop Dose Admin Acetaminophen 650 mg 08/09/18 18:55 08/20/18 04:25 Tylenol - PO 650 mg Q4H PRN Administration PAIN LEVEL 4 - 6 Acetaminophen 1,000 mg 08/16/18 16:19 08/17/18 21:18 Ofirmev Injection - IVPB 1,000 mg Q6H PRN Administration PAIN LEVEL 6-10 Albuterol Sulfate 2 puff 08/09/18 20:22 08/18/18 21:53 Ventolin Hfa Inhaler - IH 2 puff Q4H PRN Administration SHORT OF BREATH/WHEEZING Amiodarone HCl 200 mg 08/13/18 12:15 08/19/18 15:05 Cordarone - PO 200 mg DAILY [facility] Administration Amlodipine Besylate 10 mg 08/10/18 10:00 08/19/18 15:05 Norvasc - PO 10 mg DAILY [facility] Administration Apixaban 2.5 mg 08/19/18 22:00 08/19/18 21:58 Eliquis - PO 2.5 mg BID [facility] Administration Atorvastatin Calcium 20 mg 08/10/18 22:00 08/19/18 21:58 Lipitor - PO 20 mg HS [facility] Administration Cyclobenzaprine HCl 5 mg 08/17/18 10:45 08/19/18 15:05 Cyclobenzaprine Hcl PO 5 mg DAILY [facility] Administration Duloxetine HCl 60 mg 08/10/18 10:00 08/19/18 15:04 Cymbalta - PO 60 mg DAILY [facility] Administration Epoetin Zachery 10,000 unit 08/20/18 16:34 Epogen - IVPUSH 08/20/18 16:35 ONCE ONE Gabapentin 300 mg 08/17/18 14:00 08/20/18 06:08 Neurontin - PO 300 mg TID [facility] Administration Sodium Chloride 250 mls @ 3,000 mls/hr 08/19/18 16:34 Normal Saline - IV 08/20/18 16:34 PRN PRN Hypotension during Dialysis Lidocaine 1 patch 08/17/18 10:45 08/19/18 09:35 Lidoderm Patch - TP 1 patch DAILY [facility] Administration Melatonin 5 mg 08/09/18 20:20 08/19/18 21:57 Melatonin PO 5 mg HS PRN Administration INSOMNIA Metoprolol Succinate 25 mg 08/10/18 10:00 08/19/18 15:05 Toprol Xl - PO 25 mg DAILY [facility] Administration Miscellaneous 1 each 08/17/18 22:00 04/30/19 21:58 Lidoderm Patch Removal MC 1 each DAILY@2200 [facility] Administration Nicotine 7 mg 08/10/18 10:00 08/19/18 09:35 Nicoderm Patch - TD 7 mg DAILY [facility] Administration Fluticasone/Salmeterol 1 puff 08/09/18 22:00 08/19/18 21:58 Advair 100mcg/50mcg - IH 1 puff BID [facility] Administration Senna 1 tab 08/10/18 10:00 08/19/18 21:58 Senna - PO 1 tab BID [facility] Administration Impression 1. ESRD 2. non compliance with HD schedule 3. chronic back pain 4. anemia 5. anxiety 6. hx of nsaid use 7. chf diastolic 8. possible complex renal cyst 9. HLD 10. nephrolithiasis 11. 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 hyponatremia Plan - HD today - follow up pre hd labs - epogen for anemia - monitor hg - will follow
--- NOTE | 2018-08-20 12:44 | DS ---
Physical Examination Vital Signs: Vital Signs Temperature 98.3 F 08/20/18 06:47 Pulse Rate 83 08/20/18 06:47 Respiratory Rate 20 08/20/18 06:47 Blood Pressure 118/62 08/20/18 06:47 O2 Sat by Pulse Oximetry (%) 97 08/19/18 22:00 Constitutional: Yes: No Distress, Calm Cardiovascular: Yes: Regular Rate and Rhythm Respiratory: Yes: CTA Bilaterally Gastrointestinal: Yes: Normal Bowel Sounds, Soft. No: Tenderness Edema: No Labs: CBC, BMP 08/18/18 14:50 08/18/18 14:50 Discharge Summary Reason For Visit: MISSED DIALYSIS Current Active Problems Anemia (Acute) DVT prophylaxis (Acute) Missed dialysis (Acute) Smoker unmotivated to quit (Acute) Hospital Course: history - Admission Chief Complaint: Missed dialysis due to back pain History of Present Illness: 63 yo F with pmhx of COPD, CHF, HLD, HTN, GIB- ulcers, ESRD on dialysis Sat/Sat/ Sat via [facility] for past 5 months who was sent to ED from her SNF/rehab facility where pt has been residing and receiving on site dialysis after she reported having too much pain to tolerate dialysis. Per reports from SNF pt previously had abbreviated dialysis sessions on both Saturday and this week. Upon questioning pt she is unclear about duration of dialysis and does not recall if she completed the full sessions. At present she reports having pain in her lower back but denies any fever, chills, N/V/D, chest pain, palpitations, SOB, orthopnea, PND or cough. Patient reports she continues to void up to 5 times a day. Pt examined , was evaluated by Renal and GI and cardiology She was dialysed by Renal no compliant with HD schedule Was also found to have severe anemia-- transfused 2 units PRBC -- underwent EGD /colonoscopy on 08/19/18-- polyps in colon stable HCT on Eliquis no active bleeding stable for dc to NH Condition: Improved - Instructions Disposition: HALFWAY FACILITY - Home Medications Comprehensive Discharge Medication List: Ambulatory Orders Acetaminophen [Tylenol] 650 mg PO QID 08/09/18 Albuterol Sulfate Inhaler - [Ventolin Hfa Inhaler -] 1 - 2 inh PO Q4H 08/09/18 Amlodipine Besylate [Norvasc -] 10 mg PO DAILY 08/09/18 Apixaban [Eliquis] 2.5 mg PO BID 08/09/18 Atorvastatin Ca [Lipitor] 20 mg PO HS 08/09/18 Calcium Carbonate/Simethicone [Maalox Advanced Tab Chew] 1 each PO BID 08/09/18 Docusate Sodium [Colace] 300 mg PO DAILY 08/09/18 Duloxetine HCl [Cymbalta -] 60 mg PO DAILY 08/09/18 Fluticasone/Salmeterol [Advair 250-50 Diskus] 1 each IH BID 08/09/18 Gabapentin [Neurontin] 200 mg PO DAILY 08/09/18 Lorazepam [Ativan] 1 mg PO DAILY 08/09/18 Melatonin 5 mg PO HS 08/09/18 Menthol [Bengay Ultra Strength] 1 each TP DAILY PRN 08/09/18 Metoprolol Tartrate [Lopressor -] 25 mg PO BID 08/09/18 Nicotine [Nicotine Patch 7 mg/24 hr] 1 each TD DAILY 08/09/18 Sennosides [Senna] 8.6 mg PO HS 08/09/18
[2018-08-20] MEDS ORDERED: SODIUM CHLORIDE 250 ML IV PRN (13:55)
[2018-08-20 13:59] LABS: HEMATOCRIT 26.2 % (32.4-45.2); HEMOGLOBIN 8.6 GM/dL (10.7-15.3); MCH 27.9 pg (25.7-33.7); MCHC 32.8 g/dl (32.0-36.0); MEAN CELL VOLUME 85.1 fl (80-96); MEAN PLT VOLUME 7.4 fl (7.5-11.1); PLATELET COUNT 336 K/MM3 (134-434); RBC 3.08 M/mm3 (3.60-5.2); RDW 16.7 % (11.6-15.6); WHITE BLOOD COUNT 12.4 K/mm3 (4.0-10.0)
[2018-08-20] MEDS ORDERED: EPOETIN ALFA 10,000 UNIT/1 ML VIAL IVPUSH ONE (14:30)
[2018-08-20 14:49] LABS: ANION GAP 11 MMOL/L (8-16); BLOOD UREA NITROGEN 37 mg/dL (7-18); CALCIUM 8.5 mg/dL (8.5-10.1); CHLORIDE 98 mmol/L (98-107); CO2 23 mmol/L (21-32); CREATININE 4.6 mg/dL (0.55-1.3); GLUCOSE,RANDOM 93 mg/dL (74-106); POTASSIUM 3.5 mmol/L (3.5-5.1); SODIUM 133 mmol/L (136-145)
[2018-08-20 18:12] VITALS: BP 158/69; PULSE 82; TEMP 99.1
--- NOTE | 2018-08-21 15:56 | PATH ---
Surgical Pathology Report Patient Name: AWAIS ROJAS [facility]. Rec. #: [id number] /Age/Gender: 1955 (Age: 63) / F Account: [id number] Location: [address] [place] [address] Taken: 08/19/2018 Received: 08/20/2018 Reported: 08/21/2018 Physicians: Norman Flores M.D. Specimen(s) Received A: RIGHT COLON POLYP B: TRANSVERSE COLON POLYP C: POLYP SIGMOID Clinical History Anemia Postoperative diagnosis: Colon polyps, diverticulosis Final Diagnosis A. RIGHT COLON POLYP, POLYPECTOMY: TUBULAR ADENOMA. B. TRANSVERSE COLON POLYP X 2, POLYPECTOMY: TUBULAR ADENOMA, MULTIPLE FRAGMENTS. C. SIGMOID POLYP, POLYPECTOMY: HYPERPLASTIC POLYP. Electronically Signed Faizan Chance M.D. Gross Description A. Received in formalin, labeled "right colon polyp biopsy" is a berman, irregular portion of soft tissue measuring 0.4 cm. in greatest dimension. The specimen is submitted in toto in one cassette. B. Received in formalin, labeled "transverse colon polyp biopsy" are 3 berman, irregular portions of soft tissue ranging from 0.2-0.5 cm. in greatest dimension. The specimens are submitted in toto in one cassette. C. Received in formalin, labeled "sigmoid polyp biopsy" is a berman, irregular portion of soft tissue measuring 0.3 cm. in greatest dimension. The specimen is submitted in toto in one cassette. /08/20/2018 saudi08/20/2018
== END 2018-08-20 19:00 | DRG 194 ==
LOC: JER 14:17 → JERBED 17:19 → J6S 19:42 → JERBED 08-10 20:49 → J6S 08-10 20:50
PROVIDERS: ADMIT Internal Medicine; ATTEND Internal Medicine
PROC: 0DBF8ZX Excision of Right Large Intestine, Via Natural or Artificial Opening Endoscopic, Diagnostic (ICD-10-PCS; 2018-08-09)
PROC: 0DBL8ZX Excision of Transverse Colon, Via Natural or Artificial Opening Endoscopic, Diagnostic (ICD-10-PCS; 2018-08-09)
PROC: 0DBN8ZX Excision of Sigmoid Colon, Via Natural or Artificial Opening Endoscopic, Diagnostic (ICD-10-PCS; 2018-08-09)
PROC: 5A1D70Z Performance of Urinary Filtration, Intermittent, Less than 6 Hours Per Day (ICD-10-PCS; principal; 2018-08-10)
PROC: 30233N1 Transfusion of Nonautologous Red Blood Cells into Peripheral Vein, Percutaneous Approach (ICD-10-PCS; 2018-08-13)
PROC: 0DJ08ZZ Inspection of Upper Intestinal Tract, Via Natural or Artificial Opening Endoscopic (ICD-10-PCS; 2018-08-19)
DX: I13.2 Hypertensive heart and chronic kidney disease with heart failure and with stage 5 chronic kidney disease, or end stage renal disease (principal); N18.6 End stage renal disease; E87.1 Hypo-osmolality and hyponatremia; F12.10 Cannabis abuse, uncomplicated; D50.9 Iron deficiency anemia, unspecified; F32.9 Major depressive disorder, single episode, unspecified; G62.9 Polyneuropathy, unspecified; I48.91 Unspecified atrial fibrillation; N28.1 Cyst of kidney, acquired; I50.32 Chronic diastolic (congestive) heart failure; Z91.15 Patient's noncompliance with renal dialysis; J44.9 Chronic obstructive pulmonary disease, unspecified; M54.5 Low back pain; Z99.2 Dependence on renal dialysis; D12.2 Benign neoplasm of ascending colon; D12.5 Benign neoplasm of sigmoid colon; D12.3 Benign neoplasm of transverse colon; K64.8 Other hemorrhoids; F41.9 Anxiety disorder, unspecified; E05.90 Thyrotoxicosis, unspecified without thyrotoxic crisis or storm; Z96.643 Presence of artificial hip joint, bilateral; R91.1 Solitary pulmonary nodule; Z85.43 Personal history of malignant neoplasm of ovary; Z86.718 Personal history of other venous thrombosis and embolism; E78.5 Hyperlipidemia, unspecified; Z87.891 Personal history of nicotine dependence; E66.9 Obesity, unspecified; Z68.23 Body mass index [BMI] 23.0-23.9, adult; R07.89 Other chest pain; M25.551 Pain in right hip; M79.661 Pain in right lower leg
CPT/HCPCS: 36415; 36430; 70450-TC; 71045-TC-FY; 71250-TC; 73502-TC-RT-FY; 73560-TC-RT-FY; 76705-TC; 80048; 80053; 82272; 82310; 82550; 82607; 82728; 82746; 82962; 83010; 83540; 83550; 83970; 84100; 84484; 85025; 85027; 85044; 85610; 85730; 86704; 86706; 86708; 86803; 86850; 86900; 86901; 86922; 87340; 88305-TC; 93005; 93010; 99283-25; J0131; J0885; J1644; P9038; P9058

== ENCOUNTER 2018-10-24 16:00 | Emergency (ER) | payer OTHER ==
[2018-10-24 16:19] VITALS: BP 130/71; PULSE 75; TEMP 98.8; BMI 23.0
--- NOTE | 2018-10-24 16:36 | PDOC ---
History of Present Illness - General Chief Complaint: Chronic pain Stated Complaint: BACK PAIN Time Seen by Provider: 10/24/18 16:28 History Source: Patient Exam Limitations: No Limitations - History of Present Illness Initial Comments: 10/24/18 16:58 Patient well known to this emergency department here with complaints of acute exacerbation of her chronic low back pain. Patient states was just discharged from [facility] yesterday for a long stay and rehabilitation for this back pain. Reports that she was not discharged with any pain management or medications although patient has a lengthy list of multiple different types of medications. Last medication refill per [facility] was September 04 which included 60 tramadol and 30 Valium 10/24/18 17:01 Occurred: reports: other Severity: reports: mild, moderate Pain Location: reports: back Method of Injury: Yes: unknown Past History - Past Medical History Allergies/Adverse Reactions: Allergies Allergy/AdvReac Type Severity Reaction Status Date / Time levofloxacin [From Levaquin] Allergy Mild Itching Verified 10/24/18 16:17 Home Medications: Ambulatory Orders Acetaminophen [Tylenol] 650 mg PO QID 08/09/18 Albuterol Sulfate Inhaler - [Ventolin HFA Inhaler -] 1 - 2 inh PO Q4H 08/09/18 Amlodipine Besylate [Norvasc -] 10 mg PO DAILY 08/09/18 Apixaban [Eliquis] 2.5 mg PO BID 08/09/18 Atorvastatin Ca [Lipitor] 20 mg PO HS 08/09/18 Calcium Carbonate/Simethicone [Maalox Advanced Tab Chew] 1 each PO BID 08/09/18 Docusate Sodium [Colace] 300 mg PO DAILY 08/09/18 Duloxetine HCl [Cymbalta -] 60 mg PO DAILY 08/09/18 Fluticasone/Salmeterol [Advair 250-50 Diskus] 1 each IH BID 08/09/18 Lorazepam [Ativan] 1 mg PO DAILY 08/09/18 Melatonin 5 mg PO HS 08/09/18 Menthol [Bengay Ultra Strength] 1 each TP DAILY PRN 08/09/18 Nicotine [Nicotine Patch 7 mg/24 hr] 1 each TD DAILY 08/09/18 Sennosides [Senna] 8.6 mg PO HS 08/09/18 Amiodarone HCl [Cordarone -] 200 mg PO DAILY #30 tablet 08/20/18 Cyclobenzaprine HCl 5 mg PO DAILY #30 tablet 08/20/18 Gabapentin [Neurontin -] 300 mg PO TID #30 capsule 08/20/18 Metoprolol Succinate [Toprol XL -] 25 mg PO DAILY #30 tab.sr.24h 08/20/18 Acetaminophen 1,000 mg PO Q6H PRN #30 tablet 10/24/18 Cyclobenzaprine HCl 10 mg PO Q8H PRN #14 tablet 10/24/18 Anemia: Yes Asthma: Yes Cancer: No Cardiac Disorders: Yes CVA: No COPD: Yes CHF: No DVT: No Dementia: No Diabetes: No Dialysis: Yes GI Disorders: Yes (bleeding ulcer) Disorders: Yes (KIDNEY STONE;) HTN: Yes Hypercholesterolemia: Yes Kidney Stones: Yes Liver Disease: No Psychiatric Problems: Yes (ANXIETY, DEPRESSION) Seizures: No Thyroid Disease: Yes (hypothyroid) - Surgical History Abdominal Surgery: No Appendectomy: No Cardiac Surgery: No Cholecystectomy: No Lung Surgery: No Neurologic Surgery: No Orthopedic Surgery: Yes (B/L hip replacement (rt 2009; left 2012)) - Immunization History Td Vaccination: Yes TDAP Vaccination: No Immunization Up to Date: Yes - Suicide/Smoking/Psychosocial Hx Smoking Status: Yes Smoking History: Current every day smoker Years of Tobacco Use: 30 Have you smoked in the past 12 months: Yes Number of Cigarettes Smoked Daily: 6 If you are a former smoker, when did you quit?: refused booklet 07/21/14 Cigars Per Day: 0 Information on smoking cessation initiated: No 'Breaking Loose' booklet given: 08/09/18 Hx Alcohol Use: No Drug/Substance Use Hx: No Substance Use Type: None Hx Substance Use Treatment: Yes Trauma Specific PMHX - Complaint Specific PMHX Arthritis: Yes (with osteoporosis) Back Injury: No *Physical Exam - Vital Signs Last Vital Signs Temp Pulse Resp BP Pulse Ox 98.8 F 75 18 130/71 94 L 10/24/18 16:17 10/24/18 16:17 10/24/18 16:17 10/24/18 16:17 10/24/18 16:17 - Physical Exam General Appearance: Yes: Nourished, Appropriately Dressed, Apparent Distress, Mild Distress, Moderate Distress HEENT: positive: TEO, Normal ENT Inspection, TMs Normal, Pharynx Normal Neck: positive: Tender, Supple. 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 Is requesting a shot however due to patient's extensive medical history and chronic renal failure Will prescribe Tylenol and Flexeril and encourage patient to follow-up *DC/Admit/Observation/Transfer Diagnosis at time of Disposition: Acute exacerbation of chronic low back pain - Discharge Dispostion Disposition: HOME Condition at time of disposition: Stable Decision to Admit order: No - Prescriptions Prescriptions: Acetaminophen 1,000 mg PO Q6H PRN #30 tablet PRN Reason: Pain Cyclobenzaprine HCl 10 mg PO Q8H PRN #14 tablet PRN Reason: spasm - Referrals - Patient Instructions Printed Discharge Instructions: Managing Chronic Low Back Pain Additional Instructions: Rest, no heavy lifting or exercise until pain is resolved Hot soaks to neck and low back as often as possible/hot showers or Jacuzzis No massage or therapy until spasm is gone Continue Acetaminophen 500 mg tablet, 1-2 tablet every 6 hours for the next 3 days then as needed for pain and swelling Cyclobenzaprine 1-10mg every 8 hours as needed for spasm If not significant improvement within 24 hours with medication and rest regime, followup with private physician for change in medications and /or therapy. - Post Discharge Activity
[2018-10-24] MEDS ORDERED: ACETAMINOPHEN 500 MG TABLET (FP) PO ONE (17:09)
[2018-10-24] MEDS ORDERED: ACETAMINOPHEN 325 MG TABLET (FP) ONE (17:11)
== END 2018-10-24 17:13 | disposition home or self-care (01) ==
LOC: JER 16:00 → JERFT 16:00
DX: M54.5 Low back pain (principal); I10 Essential (primary) hypertension; E78.00 Pure hypercholesterolemia, unspecified; D64.9 Anemia, unspecified; J45.909 Unspecified asthma, uncomplicated; F41.9 Anxiety disorder, unspecified; F32.9 Major depressive disorder, single episode, unspecified; E03.9 Hypothyroidism, unspecified; Z96.643 Presence of artificial hip joint, bilateral
CPT/HCPCS: 99281-25

== ENCOUNTER 2018-10-31 16:41 | Emergency (ER) | payer OTHER ==
--- NOTE | 2018-10-31 16:54 | PDOC ---
Rapid Medical Evaluation Chief Complaint: Chronic pain Time Seen by Provider: 10/31/18 16:53 Medical Evaluation: Allergies Allergy/AdvReac Type Severity Reaction Status Date / Time levofloxacin [From Levaquin] Allergy Mild Itching Verified 10/24/18 16:17 10/31/18 16:53 I have performed a brief in-person evaluation of this patient. The patient presents with a chief complaint of: acute on chronic lower back pain Pertinent physical exam findings: diffuse lower back tenderness I have ordered the following: urine, labs The patient will proceed to the ED for further evaluation. Discharge Disposition - Diagnosis Acute exacerbation of chronic low back pain - Referrals - Patient Instructions - Post Discharge Activity
[2018-10-31 16:55] VITALS: BP 129/84; PULSE 86; TEMP 98.5; BMI 23.3
[2018-10-31] MEDS ORDERED: ACETAMINOPHEN 500 MG TABLET (FP) PO ONE ×2 (16:56→18:25)
--- NOTE | 2018-10-31 17:33 | PDOC ---
History of Present Illness - General Chief Complaint: Chronic pain Stated Complaint: BACK PAIN Time Seen by Provider: 10/31/18 16:53 History Source: Patient Exam Limitations: No Limitations - History of Present Illness Initial Comments: 10/31/18 18:09 Jo Matamoros is a 63yF with PMHx of Asthma, CKD, chronic Back Pain, frequent ED patient presenting with back pain. Pain has been present for the last 5 years, lower back, worse with motion. Takes 10 percocet q6 without relief. Also has intermittent tingling down left leg. No other lower extremity numbness or parasthesias. Denies fever, chest pain, SOB, nausea, vomiting, urinary or bowel changes. Past History - Past Medical History Allergies/Adverse Reactions: Allergies Allergy/AdvReac Type Severity Reaction Status Date / Time levofloxacin [From Levaquin] Allergy Mild Itching Verified 10/31/18 16:55 Home Medications: Ambulatory Orders Acetaminophen [Tylenol] 650 mg PO QID 08/09/18 Albuterol Sulfate Inhaler - [Ventolin HFA Inhaler -] 1 - 2 inh PO Q4H 08/09/18 Amlodipine Besylate [Norvasc -] 10 mg PO DAILY 08/09/18 Apixaban [Eliquis] 2.5 mg PO BID 08/09/18 Atorvastatin Ca [Lipitor] 20 mg PO HS 08/09/18 Calcium Carbonate/Simethicone [Maalox Advanced Tab Chew] 1 each PO BID 08/09/18 Docusate Sodium [Colace] 300 mg PO DAILY 08/09/18 Duloxetine HCl [Cymbalta -] 60 mg PO DAILY 08/09/18 Fluticasone/Salmeterol [Advair 250-50 Diskus] 1 each IH BID 08/09/18 Lorazepam [Ativan] 1 mg PO DAILY 08/09/18 Melatonin 5 mg PO HS 08/09/18 Menthol [Bengay Ultra Strength] 1 each TP DAILY PRN 08/09/18 Nicotine [Nicotine Patch 7 mg/24 hr] 1 each TD DAILY 08/09/18 Sennosides [Senna] 8.6 mg PO HS 08/09/18 Amiodarone HCl [Cordarone -] 200 mg PO DAILY #30 tablet 08/20/18 Cyclobenzaprine HCl 5 mg PO DAILY #30 tablet 08/20/18 Gabapentin [Neurontin -] 300 mg PO TID #30 capsule 08/20/18 Metoprolol Succinate [Toprol XL -] 25 mg PO DAILY #30 tab.sr.24h 08/20/18 Acetaminophen 1,000 mg PO Q6H PRN #30 tablet 10/24/18 Cyclobenzaprine HCl 10 mg PO Q8H PRN #14 tablet 10/24/18 Anemia: Yes Asthma: Yes Cancer: No Cardiac Disorders: Yes CVA: No COPD: Yes CHF: No DVT: No Dementia: No Diabetes: No Dialysis: Yes GI Disorders: Yes (bleeding ulcer) Disorders: Yes (KIDNEY STONE;) HTN: Yes Hypercholesterolemia: Yes Kidney Stones: Yes Liver Disease: No Psychiatric Problems: Yes (ANXIETY, DEPRESSION) Seizures: No Thyroid Disease: Yes (hypothyroid) - Surgical History Abdominal Surgery: No Appendectomy: No Cardiac Surgery: No Cholecystectomy: No Lung Surgery: No Neurologic Surgery: No Orthopedic Surgery: Yes (B/L hip replacement (rt 2009; left 2012)) - Immunization History Td Vaccination: Yes TDAP Vaccination: No Immunization Up to Date: Yes - Suicide/Smoking/Psychosocial Hx Smoking Status: Yes Smoking History: Never smoked Years of Tobacco Use: 30 Have you smoked in the past 12 months: Yes Number of Cigarettes Smoked Daily: 6 If you are a former smoker, when did you quit?: refused booklet 07/21/14 Cigars Per Day: 0 'Breaking Loose' booklet given: 08/09/18 Hx Alcohol Use: No Drug/Substance Use Hx: No Substance Use Type: None Hx Substance Use Treatment: Yes Review of Systems - Review of Systems Able to Perform ROS?: Yes Is the patient limited Moldovan proficient: No Constitutional: No: Chills, Fever HEENTM: No: Eye Pain, Nose Pain, Throat Pain Respiratory: No: Cough, Shortness of Breath, Wheezing Cardiac (ROS): No: Chest Pain, Edema, Palpitations, Syncope ABD/GI: No: Abdominal Distended, Constipated, Diarrhea, Nausea, Vomiting : No: Burning, Dysuria, Discharge, Frequency, Flank Pain, Hematuria, Incontinence, Pain, Urgency Musculoskeletal: Yes: Back Pain. No: Joint Pain, Joint Swelling (lower), Muscle Pain, Neck Pain Integumentary: No: Bruising, Flushing, Lesions, Pruritus, Rash Neurological: No: Headache, Seizure, Tremors, Ataxia Endocrine: No: Excessive Sweating, Flushing, Intolerance to Cold, Intolerance to Heat Hematologic/Lymphatic: No: Anemia, Blood Clots, Easy Bleeding *Physical Exam - Vital Signs Last Vital Signs Temp Pulse Resp BP Pulse Ox 98.5 F 86 16 129/84 95 10/31/18 16:52 10/31/18 16:52 10/31/18 16:52 10/31/18 16:52 10/31/18 16:52 - Physical Exam General Appearance: Yes: Nourished, Moderate Distress HEENT: positive: EOMI, TEO, Normal Voice, Hearing Grossly Normal (bilateral). negative: Pale Conjunctivae, Tonsillar Exudate, Nasal Congestion, Rhinorrhea Respiratory/Chest: positive: Lungs Clear, Normal Breath Sounds, Wheezing. negative: Chest Tender, Respiratory Distress, Crackles, Rales, Rhonchi, Stridor Cardiovascular: positive: Regular Rhythm, Regular Rate, S1, S2. negative: Edema , Murmur Gastrointestinal/Abdominal: positive: Normal Bowel Sounds, Flat, Soft. negative : Tender, Organomegaly Musculoskeletal: positive: Vertebral Tenderness (generalized back tenderness, bilateral flank tenderness), Other (no step offs, skin abrasions, rashes) Extremity: positive: Normal Capillary Refill Integumentary: positive: Normal Color. negative: Rash, Swelling, Ecchymosis, Bruising Neurologic: positive: travel occupational therapist II-XII NML intact, Fully Oriented, Alert, Normal Mood/ Affect, Normal Response, Motor Strength 5/5, Respond to painful stimul ( excessive), Other (pupils dilated 5mm). negative: Numbness, Sensory Deficit, Confused, Disoriented Medical Decision Making - Medical Decision Making 10/31/18 18:14 Ordered IV tylenol and lidoderm patch for pain. 63yF with PMHx of Asthma, CKD, chronic Back Pain, frequent ED patient presenting with back pain. Likely MSK pain based on chronic nature, afebrile signs Unlikely epidural abscess because afebrile vital signs, unlikely cauda equina or conus medullaris syndrome because absence of urinary/bowel movement changes or pelvic numbness. Given tylenol and lidoderm patch with some pain relief. Discharged home with 5 oxy, told to follow up with PCP *DC/Admit/Observation/Transfer Diagnosis at time of Disposition: Acute exacerbation of chronic low back pain - Discharge Dispostion Disposition: HOME Condition at time of disposition: Improved Decision to Admit order: No - Referrals - Patient Instructions Printed Discharge Instructions: DI for Low Back Pain Additional Instructions: You were seen in the ED for back pain. You were given pain medication to help with your pain. Please follow up with your primary care doctor to better manage your back pain. Print Language: ARMENIAN - Post Discharge Activity
[2018-10-31] MEDS ORDERED: LIDOCAINE 5% TOPICAL PATCH TP ONE (17:47)
[2018-10-31] MEDS ORDERED: ACETAMINOPHEN 325 MG TABLET (FP) ONE ×2 (17:52→18:28)
[2018-10-31] MEDS ORDERED: ACETAMINOPHEN 1000 MG/100 ML VIAL (NON FORMULARY) IVPB ONE (17:54)
--- NOTE | 2018-10-31 18:24 | PDOC ---
Documentation entered by Bandar Rubin SCRIBE, acting as scribe for Nghia Khan MD. Nghia Khan MD: This documentation has been prepared by the Scottie tirado Joel, SCRIBE, under my direction and personally reviewed by me in its entirety. I confirm that the documentation accurately reflects all work, treatment, procedures, and medical decision making performed by me. Attending Attestation - Resident Resident Name: Lit Preciado - ED Attending Attestation I have performed the following: I have examined & evaluated the patient, The case was reviewed & discussed with the resident, I agree w/resident's findings & plan, Exceptions are as noted - HPI HPI: 10/31/18 18:18 63 F with h/o ESRD on HD TuThSat, COPD, CHF, HTN, HLD, Asthma, chronic back pain presenting with acute on chronic back pain. Pt states she woke up with an acute exacerbation of her usual back pain. Denies any trauma or fall. Denies weakness/numbness in her legs. Denies incontinence or saddle anesthesia. States that she did not take anything for her pain at home. Normally takes oxycodone. - Physicial Exam PE: 10/31/18 18:22 "GENERAL: Awake, alert, and fully oriented, in no acute distress. HEAD: No signs of trauma EYES: PERRLA, EOMI, sclera anicteric, conjunctiva clear ENT: Auricles normal inspection, hearing grossly normal, nares patent, oropharynx clear without exudates. Moist mucosa NECK: Nontender, no stepoffs, Normal ROM, supple, no lymphadenopathy, JVD, or masses LUNGS: Breath sounds equal, clear to auscultation bilaterally. No wheezes, and no crackles HEART: Regular rate and rhythm, normal S1 and S2, no murmurs, rubs or gallops ABDOMEN: Soft, nontender, normoactive bowel sounds. No guarding, no rebound. No masses EXTREMITIES: Normal range of motion, no edema. No clubbing or cyanosis. No cords, erythema, or tenderness NEUROLOGICAL: Cranial nerves II through XII intact. 5/5 strength and sensation in all extremities, Normal speech, normal gait, normal cerebellar function SKIN: Warm, Dry, normal turgor, no rashes or lesions noted. - Medical Decision Making 10/31/18 18:22 63 F with acute on chronic lower back pain. NO new neuro deficits to suggest cauda equina/cord compression. No fevers to suggest epidural abscess or other infection. - Tylenol, lidoderm patch - F/u pain management, ortho Pt is well appearing, with normal vitals. Clinically stable for DC at this time. I discussed the physical exam findings, ancillary test results and final diagnoses with the patient. I answered all of the patient's questions. The patient was satisfied with the care received and felt comfortable with the discharge plan and treatment plan. The patient agrees to follow up with the primary care physician within 24-72 hours.
[2018-10-31] MEDS ORDERED: LIDOCAINE 5% TOPICAL PATCH ONE (18:28)
[2018-10-31] MEDS ORDERED: oxyCODONE HCL 5 MG TABLET PO ONE (19:02)
[2018-10-31] MEDS ORDERED: traMADol HCL 50 MG TABLET PO ONE (19:03)
[2018-10-31] MEDS ORDERED: traMADol HCL 50 MG TABLET ONE (19:05)
[2018-10-31] MEDS ORDERED: LIDOCAINE PATCH REMOVAL MC SCH (22:00)
== END 2018-10-31 19:14 | disposition home or self-care (01) ==
LOC: JER 16:41
DX: M54.5 Low back pain (principal); I13.2 Hypertensive heart and chronic kidney disease with heart failure and with stage 5 chronic kidney disease, or end stage renal disease; N18.6 End stage renal disease; I50.89 Other heart failure; N17.8 Other acute kidney failure; Z99.2 Dependence on renal dialysis; F41.9 Anxiety disorder, unspecified; F32.9 Major depressive disorder, single episode, unspecified; E03.9 Hypothyroidism, unspecified; D64.9 Anemia, unspecified; J45.909 Unspecified asthma, uncomplicated; J44.9 Chronic obstructive pulmonary disease, unspecified
CPT/HCPCS: 99282-25

== ENCOUNTER 2018-11-03 11:03 | Emergency (ER) | payer OTHER ==
[2018-11-03 11:45] VITALS: BP 104/71; PULSE 74; TEMP 98.4; BMI 23.8
[2018-11-03] MEDS ORDERED: LIDOCAINE 5% TOPICAL PATCH TP ONE (11:50)
[2018-11-03] MEDS ORDERED: traMADol HCL 50 MG TABLET PO ONE (11:50)
[2018-11-03] MEDS ORDERED: traMADol HCL 50 MG TABLET ONE (11:53)
[2018-11-03] MEDS ORDERED: LIDOCAINE 5% TOPICAL PATCH ONE (11:54)
--- NOTE | 2018-11-03 12:11 | PDOC ---
History of Present Illness - General Chief Complaint: Chronic pain Stated Complaint: BACK PAIN Time Seen by Provider: 11/03/18 11:47 History Source: Patient - History of Present Illness Occurred: reports: other Pain Location: reports: back Past History - Past Medical History Allergies/Adverse Reactions: Allergies Allergy/AdvReac Type Severity Reaction Status Date / Time levofloxacin [From Levaquin] Allergy Mild Itching Verified 11/03/18 11:45 Home Medications: Ambulatory Orders Acetaminophen [Tylenol] 650 mg PO QID 08/09/18 Albuterol Sulfate Inhaler - [Ventolin HFA Inhaler -] 1 - 2 inh PO Q4H 08/09/18 Amlodipine Besylate [Norvasc -] 10 mg PO DAILY 08/09/18 Apixaban [Eliquis] 2.5 mg PO BID 08/09/18 Atorvastatin Ca [Lipitor] 20 mg PO HS 08/09/18 Calcium Carbonate/Simethicone [Maalox Advanced Tab Chew] 1 each PO BID 08/09/18 Docusate Sodium [Colace] 300 mg PO DAILY 08/09/18 Duloxetine HCl [Cymbalta -] 60 mg PO DAILY 08/09/18 Fluticasone/Salmeterol [Advair 250-50 Diskus] 1 each IH BID 08/09/18 Lorazepam [Ativan] 1 mg PO DAILY 08/09/18 Melatonin 5 mg PO HS 08/09/18 Menthol [Bengay Ultra Strength] 1 each TP DAILY PRN 08/09/18 Nicotine [Nicotine Patch 7 mg/24 hr] 1 each TD DAILY 08/09/18 Sennosides [Senna] 8.6 mg PO HS 08/09/18 Amiodarone HCl [Cordarone -] 200 mg PO DAILY #30 tablet 08/20/18 Cyclobenzaprine HCl 5 mg PO DAILY #30 tablet 08/20/18 Gabapentin [Neurontin -] 300 mg PO TID #30 capsule 08/20/18 Metoprolol Succinate [Toprol XL -] 25 mg PO DAILY #30 tab.sr.24h 08/20/18 Acetaminophen 1,000 mg PO Q6H PRN #30 tablet 10/24/18 Cyclobenzaprine HCl 10 mg PO Q8H PRN #14 tablet 10/24/18 Lidocaine 5% Patch [Lidoderm Patch -] 1 patch TP DAILY #7 patch 11/03/18 Tramadol HCl 50 mg PO Q6H #12 tablet MDD 200mg 11/03/18 Anemia: Yes Asthma: Yes Cancer: No Cardiac Disorders: Yes CVA: No COPD: Yes CHF: No DVT: No Dementia: No Diabetes: No Dialysis: Yes GI Disorders: Yes (bleeding ulcer) Disorders: Yes (KIDNEY STONE;) HTN: Yes Hypercholesterolemia: Yes Kidney Stones: Yes Liver Disease: No Psychiatric Problems: Yes (ANXIETY, DEPRESSION) Seizures: No Thyroid Disease: Yes (hypothyroid) - Surgical History Abdominal Surgery: No Appendectomy: No Cardiac Surgery: No Cholecystectomy: No Lung Surgery: No Neurologic Surgery: No Orthopedic Surgery: Yes (B/L hip replacement (rt 2009; left 2012)) - Immunization History Td Vaccination: Yes TDAP Vaccination: No Immunization Up to Date: Yes - Suicide/Smoking/Psychosocial Hx Smoking Status: Yes Smoking History: Current every day smoker Years of Tobacco Use: 30 Have you smoked in the past 12 months: Yes Number of Cigarettes Smoked Daily: 6 If you are a former smoker, when did you quit?: refused booklet 07/21/14 Cigars Per Day: 0 Information on smoking cessation initiated: No 'Breaking Loose' booklet given: 08/09/18 Hx Alcohol Use: No Drug/Substance Use Hx: No Substance Use Type: None Hx Substance Use Treatment: Yes Trauma Specific PMHX - Complaint Specific PMHX Arthritis: Yes (with osteoporosis) Back Injury: No Review of Systems - Review of Systems Constitutional: No: Chills, Fever ABD/GI: No: Nausea, Vomiting, Abdominal cramping : No: Dysuria, Flank Pain Musculoskeletal: Yes: Back Pain *Physical Exam - Vital Signs Last Vital Signs Temp Pulse Resp BP Pulse Ox 98.4 F 74 18 104/71 95 11/03/18 11:43 11/03/18 11:43 11/03/18 11:43 11/03/18 11:43 11/03/18 11:43 - Physical Exam General Appearance: Yes: Appropriately Dressed, Mild Distress HEENT: positive: Normal Voice Neck: positive: Supple Respiratory/Chest: negative: Respiratory Distress Gastrointestinal/Abdominal: positive: Soft. negative: Tender Musculoskeletal: negative: CVA Tenderness, Vertebral Tenderness Extremity: positive: Normal Inspection Integumentary: positive: Dry, Warm Neurologic: positive: Fully Oriented, Alert, Normal Mood/Affect, Motor Strength 08/24 Medical Decision Making - Medical Decision Making 11/03/18 13:19 63-year-old female with multiple comorbidities including COPD, hypertension, end -stage renal disease on dialysis Tuesdays, and Saturday via right upper extremity AV fistula, chronic lower back pain, s/p vertebroplasty remotely , degenerative discogenic disease to multiple LS spinal levels on imaging on records here, numerous ED visits for back pain, here with her usual lower back pain x several days. States pain achy in nature, non-radiating, with no neurological symptoms. Able to ambulate but painful. No recent trauma. Denies dysuria, nausea, vomiting, fever or chills. States she currently does not have any pain medication at home. Of note, patient was seen in ED for same several days ago and given Lidoderm patch in ED, which she states improved her pain but was not given any prescription. States she currently does not have a pain specialist see exam Acute on chronic LBP No red flags at this time -dc w/ pain control and referral to pain specialist *DC/Admit/Observation/Transfer Diagnosis at time of Disposition: Chronic low back pain Qualifiers: Back pain laterality: unspecified Sciatica presence: without sciatica Qualified Code(s): M54.5 - Low back pain - Prescriptions Prescriptions: Lidocaine 5% Patch [Lidoderm Patch -] 1 patch TP DAILY #7 patch Tramadol HCl 50 mg PO Q6H #12 tablet MDD 200mg - Referrals Referrals: Meagan Rivas MD [Staff Physician] - - Patient Instructions Additional Instructions: Take medications as prescribed and follow-up with Dr Arango of pain management - Post Discharge Activity
== END 2018-11-03 12:11 | disposition home or self-care (01) ==
LOC: JERFT 11:03
DX: M54.5 Low back pain (principal); G89.29 Other chronic pain; I12.0 Hypertensive chronic kidney disease with stage 5 chronic kidney disease or end stage renal disease; N18.6 End stage renal disease; N17.8 Other acute kidney failure; Z99.2 Dependence on renal dialysis; E78.00 Pure hypercholesterolemia, unspecified; E03.9 Hypothyroidism, unspecified; F41.8 Other specified anxiety disorders; F32.9 Major depressive disorder, single episode, unspecified; J45.909 Unspecified asthma, uncomplicated; D64.9 Anemia, unspecified; Z96.643 Presence of artificial hip joint, bilateral
CPT/HCPCS: 99281-25

== ENCOUNTER 2018-11-19 00:38 | Emergency (ER) | payer OTHER ==
[2018-11-19 01:29] VITALS: BP 138/90; PULSE 99; TEMP 98.1; BMI 23.0
[2018-11-19] MEDS ORDERED: LIDOCAINE 5% TOPICAL PATCH TP ONE (01:48)
[2018-11-19] MEDS ORDERED: LIDOCAINE 5% TOPICAL PATCH ONE (01:51)
[2018-11-19] MEDS ORDERED: ACETAMINOPHEN 1000 MG/100 ML VIAL (NON FORMULARY) IVPB ONE (02:47)
[2018-11-19] MEDS ORDERED: LORazepam 1 MG TABLET PO ONE (02:51)
[2018-11-19] MEDS ORDERED: LORazepam 0.5 MG TABLET ONE (02:55)
[2018-11-19] MEDS ORDERED: ACETAMINOPHEN INJECTION 100 ML IVPB ONE (02:56)
--- NOTE | 2018-11-19 02:59 | PDOC ---
History of Present Illness - General Chief Complaint: Back Pain Stated Complaint: LOWER BACK PAIN Time Seen by Provider: 11/19/18 01:47 History Source: Patient, Old Records Exam Limitations: No Limitations - History of Present Illness Initial Comments: 11/19/18 02:54 63yo F with PMH ESRD on HD T//S, COPD, CHF, HTN, HLD, Asthma, chronic back pain presenting with acute on chronic back pain. Pt states pain has started toady. She says that her back pain was in control until about a couple months ago. She was seen here in the ED for similar complaints. She states the pain has not changed in intensity, does not radiate. Denies numbness/tingling, weakness, bowel/bladder incontinence, saddle anesthesia, injury, falls. She is still able to ambulate but has pain when doing so. She does not take anything at home for the pain and has not seen a pain specialist "in a while". Pain does not have alleviating or triggering factors. PMD: Julián PMH: see hpi Meds: see med rec Allergies: Levaquin Past History - Past Medical History Allergies/Adverse Reactions: Allergies Allergy/AdvReac Type Severity Reaction Status Date / Time levofloxacin [From Levaquin] Allergy Mild Itching Verified 11/19/18 01:29 Home Medications: Ambulatory Orders Albuterol Sulfate Inhaler - [Ventolin HFA Inhaler -] 1 - 2 inh PO Q4H 08/09/18 Amlodipine Besylate [Norvasc -] 10 mg PO DAILY 08/09/18 Apixaban [Eliquis] 2.5 mg PO BID 08/09/18 Atorvastatin Ca [Lipitor] 20 mg PO HS 08/09/18 Docusate Sodium [Colace] 300 mg PO DAILY 08/09/18 Duloxetine HCl [Cymbalta -] 60 mg PO DAILY 08/09/18 Fluticasone/Salmeterol [Advair 250-50 Diskus] 1 each IH BID 08/09/18 Lorazepam [Ativan] 1 mg PO DAILY 08/09/18 Melatonin 5 mg PO HS 08/09/18 Nicotine [Nicotine Patch 7 mg/24 hr] 1 each TD DAILY 08/09/18 Sennosides [Senna] 8.6 mg PO HS 08/09/18 Amiodarone HCl [Cordarone -] 200 mg PO DAILY #30 tablet 08/20/18 Gabapentin [Neurontin -] 300 mg PO TID #30 capsule 08/20/18 Metoprolol Succinate [Toprol XL -] 25 mg PO DAILY #30 tab.sr.24h 08/20/18 Tramadol HCl 50 mg PO Q6H #12 tablet MDD 200mg 11/03/18 Lidocaine 5% Patch [Lidoderm Patch -] 1 patch TP DAILY #7 patch 11/19/18 Anemia: Yes Asthma: Yes Cancer: No Cardiac Disorders: Yes CVA: No COPD: Yes CHF: No DVT: No Dementia: No Diabetes: No Dialysis: Yes GI Disorders: Yes (bleeding ulcer) Disorders: Yes (KIDNEY STONE;) HTN: Yes Hypercholesterolemia: Yes Kidney Stones: Yes Liver Disease: No Psychiatric Problems: Yes (ANXIETY, DEPRESSION) Seizures: No Thyroid Disease: Yes (hypothyroid) - Surgical History Abdominal Surgery: No Appendectomy: No Cardiac Surgery: No Cholecystectomy: No Lung Surgery: No Neurologic Surgery: No Orthopedic Surgery: Yes (B/L hip replacement (rt 2009; left 2012)) - Immunization History Td Vaccination: Yes TDAP Vaccination: No Immunization Up to Date: Yes - Suicide/Smoking/Psychosocial Hx Smoking Status: Yes Smoking History: Current every day smoker Years of Tobacco Use: 30 Have you smoked in the past 12 months: Yes Number of Cigarettes Smoked Daily: 6 If you are a former smoker, when did you quit?: refused booklet 07/21/14 Cigars Per Day: 0 Information on smoking cessation initiated: No 'Breaking Loose' booklet given: 08/09/18 Hx Alcohol Use: Yes Drug/Substance Use Hx: Yes Substance Use Type: None Hx Substance Use Treatment: Yes Trauma Specific PMHX - Complaint Specific PMHX Arthritis: Yes (with osteoporosis) Back Injury: No Review of Systems - Review of Systems Constitutional: No: Symptoms Reported HEENTM: No: Symptoms Reported Respiratory: No: Symptoms reported Cardiac (ROS): No: Symptoms Reported ABD/GI: No: Symptoms Reported : No: Symptoms Reported Musculoskeletal: Yes: See HPI, Back Pain Integumentary: No: Symptoms Reported Neurological: No: Symptoms reported, Numbness, Paresthesia, Tingling, Weakness, Unsteady Gait, Ataxia, Dizziness *Physical Exam - Vital Signs Last Vital Signs Temp Pulse Resp BP Pulse Ox 98.1 F 99 H 18 138/90 98 11/19/18 00:38 11/19/18 00:38 11/19/18 00:38 11/19/18 00:38 11/19/18 00:38 - Physical Exam General Appearance: Yes: Nourished, Appropriately Dressed. No: Apparent Distress HEENT: positive: EOMI, TEO, Normal ENT Inspection Neck: positive: Trachea midline, Supple Respiratory/Chest: positive: Lungs Clear, Normal Breath Sounds Cardiovascular: positive: Regular Rhythm, Regular Rate, S1, S2. negative: Edema , JVD, Murmur Gastrointestinal/Abdominal: positive: Normal Bowel Sounds, Soft. negative: Tender Musculoskeletal: positive: Muscle Spasm (paravertebral at lumbar level), Vertebral Tenderness (lumbar). negative: CVA Tenderness Extremity: positive: Normal Capillary Refill. negative: Pedal Edema, Swelling Integumentary: positive: Normal Color, Dry, Warm Neurologic: positive: school patrol II-XII NML intact, Fully Oriented, Alert, Normal Mood/ Affect, Normal Response, Motor Strength 08/24 ED Treatment Course - Medications Given in the ED: ED Medications Discontinued Medications Generic Name Dose Route Start Last Admin Trade Name Freq PRN Reason Stop Dose Admin Lidocaine 1 patch 11/19/18 01:48 11/19/18 01:58 Lidoderm Patch - TP 11/19/18 01:49 1 patch ONCE ONE Administration Medical Decision Making - Medical Decision Making 11/19/18 02:57 63yo F with PMH ESRD on HD T//, COPD, CHF, HTN, HLD, Asthma, chronic back pain presenting with acute on chronic back pain. Pt states pain has started toady. She says that her back pain was in control until about a couple months ago. She was seen here in the ED for similar complaints. She states the pain has not changed in intensity, does not radiate. Denies numbness/tingling, weakness, bowel/bladder incontinence, injury, falls. She is still able to ambulate but has pain when doing so. She does not take anything at home for the pain and has not seen a pain specialist "in a while". Pain does not have alleviating or triggering factors. Vitals: HR 99, afebrile, normotensive PE: lumbar tenderness with paravertebral spasms. No neurological deficits, no bony step offs. Most likely acute on chronic back pain, pt is not on pain management regimen. Low suspicion for cord compression or abscess at this time. Pt has had imaging in the past and has had adequate pain control in the ED. Pt needs pain management and ortho, will give referral. -Ua, Ucx -lidoderm patch, iv tylenol, atival 2mg po. -reassess will order imaging, pt has not had imaging for a few months. renal and lumbar renal: Bilateral renal scarring and atrophy. Small pericardial effusion. Old granulomatous disease. No definite evidence of acute pathology. lumbar: Status post L1 vertebroplasty with mild retropulsion and mild central canal narrowing. No acute fractures identified. There is a mild to moderate levoscoliosis. There are multilevel moderate degenerative changes. There is a small bulging disc osteophyte complex and bilateral facet joint arthrosis at the L3-4 level which causes moderate right neural foraminal narrowing. There is a small bulging disc osteophyte complex and bilateral facet joint arthrosis at the L4-5 level which results in mild central canal and bilateral neuroforaminal narrowing. There is a small bulging disc osteophyte complex and left-sided facet joint arthrosis at the L5/S1 level which results in mild left neuroforaminal narrowing. NO acute fracture. safe for dc home. given return precatutons and advised to f/u with pain management. 11/19/18 07:20 *DC/Admit/Observation/Transfer Diagnosis at time of Disposition: Chronic low back pain Qualifiers: Back pain laterality: bilateral Sciatica presence: without sciatica Qualified Code(s): M54.5 - Low back pain - Discharge Dispostion Disposition: HOME Condition at time of disposition: Good Decision to Admit order: No - Prescriptions Prescriptions: Lidocaine 5% Patch [Lidoderm Patch -] 1 patch TP DAILY #7 patch - Referrals Referrals: Chung Gallego MD [Primary Care Provider] - Alison Finch MD [Staff Physician] - - Patient Instructions Printed Discharge Instructions: Managing Chronic Low Back Pain, Back Pain ( Alternative Therapy) Additional Instructions: You were seen in the emergency room today for back pain. This appears to be chronic pain. It is important to schedule an appointment with Dr. Gallego and your pain specialist doctor so that you can be placed on the appropriate therapy. Please schedule an appointment. A prescription was sent to your pharmacy for a Lidoderm patch. Take as directed. Come back to the emergency room for worsening pain, inability to walk, numbness or tingling, or if any new concerning symptom develops. Thank you - Post Discharge Activity
[2018-11-19 03:27] LABS: EPI CELLS 12.5 /HPF (0-5/HPF); HYALINE CASTS 0 /lpf (0-8); PH,URINE 8.5 (5.0-8.0); URINE APPEARANCE CLEAR; URINE BACTERIA 69.3 /hpf (NEGATIVE); URINE BILIRUBIN NEGATIVE (NEGATIVE); URINE COLOR YELLOW; URINE GLUCOSE (UA) 1+ (NEGATIVE); URINE KETONE NEGATIVE (NEGATIVE); URINE LEUK ESTERASE TRACE (NEGATIVE); URINE NITRITE NEGATIVE (NEGATIVE); URINE PROTEIN 4+ (NEGATIVE); URINE RBC 1 /hpf (0-4); URINE UROBILINOGEN 0.2 mg/dL (0.2-1.0); URINE WBC 6 /hpf (0-5)
--- NOTE | 2018-11-19 06:20 | PDOC ---
Documentation entered by Laney Felix SCRIBE, acting as scribe for Sri Rankin DO. Sri Rankin DO: This documentation has been prepared by the Isidro tirado Adrianna, SCRIBE, under my direction and personally reviewed by me in its entirety. I confirm that the documentation accurately reflects all work, treatment, procedures, and medical decision making performed by me. Attending Attestation - Resident Resident Name: Vee Rascon - ED Attending Attestation I have performed the following: I have examined & evaluated the patient, The case was reviewed & discussed with the resident, I agree w/resident's findings & plan - HPI HPI: The patient is a 63 year old female, with a significant PMH of ESRD (on HD TuThSat), COPD, CHF, HTN, HLD, Asthma, and chronic back pain, who presents to the ED for evaluation of back pain for one day. Patient endorses localized low back pain that is exacerbated with walking. Denies paresthesia,muscle weakness, trauma to the back. Allergies: Levofloxacin Surgical History: Bilateral hip replacements Social History: Former smoker. Denies EtOH or illicit drug use. PCP: Dr. Gallego 11/19/18 06:09 - Physicial Exam PE: Agree with resident exam. - Medical Decision Making 11/19/18 06:10 63-year-old female with chronic pain, actively sucking on a pacifier that she calls her boyfriend complaining now of worsening flank pain CT scans of the abdomen and pelvis with lumbar reconstructions show no significant acute abnormality Patient given Ativan orally on arrival which did help with symptoms, she will be given one Percocet now at 6:15 prior to discharge and will be advised to follow-up with her primary care physician's
[2018-11-19] MEDS ORDERED: LIDOCAINE PATCH REMOVAL MC SCH (22:00)
== END 2018-11-19 06:54 | disposition home or self-care (01) ==
LOC: JER 00:38
PROC: 3E033NZ Introduction of Analgesics, Hypnotics, Sedatives into Peripheral Vein, Percutaneous Approach (ICD-10-PCS; principal; 2018-11-19)
DX: M54.5 Low back pain (principal); G89.29 Other chronic pain; I25.10 Atherosclerotic heart disease of native coronary artery without angina pectoris; I13.2 Hypertensive heart and chronic kidney disease with heart failure and with stage 5 chronic kidney disease, or end stage renal disease; N18.6 End stage renal disease; I50.89 Other heart failure; Z99.2 Dependence on renal dialysis; E78.5 Hyperlipidemia, unspecified; J44.9 Chronic obstructive pulmonary disease, unspecified; J45.909 Unspecified asthma, uncomplicated; E03.9 Hypothyroidism, unspecified; F41.8 Other specified anxiety disorders; F32.9 Major depressive disorder, single episode, unspecified; Z96.643 Presence of artificial hip joint, bilateral; Z79.01 Long term (current) use of anticoagulants
CPT/HCPCS: 72131-TC; 74176-TC; 81003; 87086; 96374; 99282-25; J0131

== ENCOUNTER 2018-11-19 12:02 | Emergency (ER) | payer OTHER | END 2018-11-19 16:02 | disposition home or self-care (01) | LOC: JER 12:02 ==

== ENCOUNTER 2018-11-19 21:43 | Emergency (ER) | payer OTHER ==
[2018-11-19] MEDS ORDERED: LIDOCAINE PATCH REMOVAL MC SCH (22:00)
[2018-11-19 22:08] VITALS: BP 136/82; PULSE 90; TEMP 98.8; BMI 26.6
--- NOTE | 2018-11-19 22:29 | PDOC ---
History of Present Illness - General Chief Complaint: Chronic pain Stated Complaint: LOWER BACK PAIN Time Seen by Provider: 11/19/18 22:27 - History of Present Illness Initial Comments: 11/19/18 22:48 63yo F hx ESRD (HD T/T/S), COPD, CHF, HTN, HLD, asthma, and chronic LBP presents c/o acute on chronic LBP. Pt c/o LBP radiating to R hip and R buttock, worse with movement. Pt states it is the exact same pain as she always experiences, the exact same as why she was here earlier today. Pt presented to ED with same complaint two times alreadt today, at 0200 and 1300. Pt states the IV medicine helped her today and wants it again. Per chart, pt received Acetaminophen 1g IV. At her 0200 visit pt had CTAP and CT lumbar spine with no acute abnormalities. Pt denies urinary or bowel incontinence or retention, weakness, paresthesias, trauma, falls, flank pain, CP, worsening SOB (from chronic), cough, SANDERS, dizziness, dysuria, abdominal pain, D/C, blood in stool. Endorses chronic SOB due to asthma and is running out of albuterol inhaler. Past History - Past Medical History Allergies/Adverse Reactions: Allergies Allergy/AdvReac Type Severity Reaction Status Date / Time levofloxacin [From Levaquin] Allergy Mild Itching Verified 11/19/18 12:09 Home Medications: Ambulatory Orders Amlodipine Besylate [Norvasc -] 10 mg PO DAILY 08/09/18 Apixaban [Eliquis] 2.5 mg PO BID 08/09/18 Atorvastatin Ca [Lipitor] 20 mg PO HS 08/09/18 Docusate Sodium [Colace] 300 mg PO DAILY 08/09/18 Duloxetine HCl [Cymbalta -] 60 mg PO DAILY 08/09/18 Fluticasone/Salmeterol [Advair 250-50 Diskus] 1 each IH BID 08/09/18 Lorazepam [Ativan] 1 mg PO DAILY 08/09/18 Melatonin 5 mg PO HS 08/09/18 Nicotine [Nicotine Patch 7 mg/24 hr] 1 each TD DAILY 08/09/18 Sennosides [Senna] 8.6 mg PO HS 08/09/18 Amiodarone HCl [Cordarone -] 200 mg PO DAILY #30 tablet 08/20/18 Gabapentin [Neurontin -] 300 mg PO TID #30 capsule 08/20/18 Metoprolol Succinate [Toprol XL -] 25 mg PO DAILY #30 tab.sr.24h 08/20/18 Tramadol HCl 50 mg PO Q6H #12 tablet MDD 200mg 11/03/18 Albuterol Sulfate Inhaler - [Ventolin HFA Inhaler -] 1 - 2 inh PO Q4H PRN #1 inhaler 11/19/18 Clobetasol Propionate [Temovate] 30 gm TP BID #1 oint...g. 11/19/18 LORazepam [Ativan] 1 mg PO BID #14 tablet MDD 2 11/19/18 Lidocaine 5% Patch [Lidoderm -] 1 patch TP DAILY #7 patch 11/19/18 Lidocaine 5% Patch [Lidoderm Patch -] 1 patch TP DAILY #7 patch 11/19/18 Anemia: Yes Asthma: Yes Cancer: No Cardiac Disorders: Yes CVA: No COPD: Yes CHF: No DVT: No Dementia: No Diabetes: No Dialysis: Yes GI Disorders: Yes (bleeding ulcer) Disorders: Yes (KIDNEY STONE;) HTN: Yes Hypercholesterolemia: Yes Kidney Stones: Yes Liver Disease: No Psychiatric Problems: Yes (ANXIETY, DEPRESSION) Seizures: No Thyroid Disease: Yes (hypothyroid) - Surgical History Abdominal Surgery: No Appendectomy: No Cardiac Surgery: No Cholecystectomy: No Lung Surgery: No Neurologic Surgery: No Orthopedic Surgery: Yes (B/L hip replacement (rt 2009; left 2012)) - Immunization History Td Vaccination: Yes TDAP Vaccination: No Immunization Up to Date: Yes - Suicide/Smoking/Psychosocial Hx Smoking Status: Yes Smoking History: Current every day smoker Years of Tobacco Use: 30 Have you smoked in the past 12 months: No Number of Cigarettes Smoked Daily: 6 If you are a former smoker, when did you quit?: refused booklet 07/21/14 Cigars Per Day: 0 Information on smoking cessation initiated: No 'Breaking Loose' booklet given: 08/09/18 Hx Alcohol Use: No Drug/Substance Use Hx: No Substance Use Type: None Hx Substance Use Treatment: Yes Review of Systems - Review of Systems Comments:: 11/22/18 20:58 Constitutional: Negative for chills, fever, fatigue. HENT: Negative for sore throat, rhinorrhea, congestion. Eyes: Negative for visual disturbance. Respiratory: Positive for SOB (chronic). Negative for cough, and wheezing. Cardiovascular: Negative for chest pain, palpitations, and leg swelling. Gastrointestinal: Negative for abdominal pain, blood in stool, constipation, diarrhea, nausea, and vomiting. Genitourinary: Negative for dysuria, flank pain, and hematuria. Musculoskeletal: Positive for back pain. Negative for myalgias and neck pain. Skin: Negative for rash. Neurological: Negative for light-headedness, dizziness, syncope, weakness, numbness and headaches. Psychiatric/Behavioral: Negative for behavioral problems and confusion. *Physical Exam - Vital Signs Last Vital Signs Temp Pulse Resp BP Pulse Ox 98.8 F 90 20 136/82 96 11/19/18 21:51 11/19/18 21:51 11/19/18 21:51 11/19/18 21:51 11/19/18 21:51 - Physical Exam Comments: 11/22/18 20:59 Gen: Alert, NAD, comfortable-appearing, holding pacifier HEENT: PERRL, EOMI, MMM, NCAT. No conjunctival pallor. Sclera are non-icteric. CV: Regular rate and rhythm. No murmurs, rubs, or gallops. PULM: No resp distress. CTAB, no wheezes, rales, or rhonchi. ABD: soft, NT/ND, no rebound tenderness or guarding, no CVA tenderness. BACK: + TTP of L-spine. No TTP of c/t-spine. No step-offs or deformities. MSK: No bony deformities. 2+ pulses in all extremities. NEURO: AAOx3. PERRL. CN 2-12 intact. 5/5 strength in all extremities. Sensation to light touch intact in all extremities. No pronator drift. No dysmetria. No dysdiadochokinesia. No abnormal nystagmus. No skew deviation. Normal gait. EXTREMITIES: No cyanosis. No clubbing. No edema. No calf tenderness. PSYCH: Normal mood and thought pattern. SKIN: Warm and dry. Normal capillary refill. No rashes. No jaundice. Medical Decision Making - Medical Decision Making 11/19/18 22:48 63yo F hx ESRD (HD T/T/S), COPD, CHF, HTN, HLD, asthma, and chronic LBP presents c/o acute on chronic LBP. Pt c/o LBP radiating to R hip and R buttock, worse with movement. Pt states it is the exact same pain as she always experiences, the exact same as why she was here earlier today. Pt presented to ED with same complaint two times alreadt today, at 0200 and 1300. Pt states the IV medicine helped her today and wants it again. Per chart, pt received Acetaminophen 1g IV. At her 0200 visit pt had CTAP and CT lumbar spine with no acute abnormalities. Pt denies urinary or bowel incontinence or retention, weakness, paresthesias, trauma, falls, flank pain, CP, worsening SOB (from chronic), cough, SANDERS, dizziness, dysuria, abdominal pain, D/C, blood in stool. Endorses chronic SOB due to asthma and is running out of albuterol inhaler. Hemodynamically stable, afebrile, neurologically intact. No new injuries and pt states pain exactly the same as during her 2 earlier visits today. No s/s of cauda equina, spinal abscess, fx, or cord compression. Manage pain and encourage f/u. -Tylenol and Lidoderm for pain -Send Albuterol inhaler prescription -Dispo: d/c home w/Ortho referral and pain management f/u Pt feeling better s/p tylenol. Return precautions given. Pt understands all dc instructions and all questions were answered. *DC/Admit/Observation/Transfer Diagnosis at time of Disposition: Back pain, Acute exacerbation of chronic low back pain - Discharge Dispostion Disposition: HOME Condition at time of disposition: Improved Decision to Admit order: No - Prescriptions Prescriptions: Albuterol Sulfate Inhaler - [Ventolin HFA Inhaler -] 1 - 2 inh PO Q4H PRN #1 inhaler PRN Reason: Short Of Breath/Wheezing - Referrals Referrals: Nghia Soto MD [Staff Physician] - Chung Gallego MD [Staff Physician] - Alison Finch MD [Staff Physician] - - Patient Instructions Printed Discharge Instructions: Managing Chronic Low Back Pain, DI for Low Back Pain Additional Instructions: You were seen in the emergency room today for back pain. This appears to be chronic pain. It got better with Tylenol. It is important to schedule an appointment with Dr. Gallego and your pain specialist doctor so that you can be placed on the appropriate therapy. Please schedule an appointment for within 1 week. We have also given you a referral to an Orthopedic Surgeon for further evaluation - call to set up an appointment within 1 week. A prescription was sent to your pharmacy for a refill of your inhaler. Please call 911 or return to the emergency room immediately if you experience worsening pain, inability to walk, numbness or tingling, incontinence, or any other new or concerning symptom. - Post Discharge Activity
[2018-11-19] MEDS ORDERED: ACETAMINOPHEN 1000 MG/100 ML VIAL (NON FORMULARY) IVPB ONE (23:06)
[2018-11-19] MEDS ORDERED: ACETAMINOPHEN INJECTION 100 ML IVPB ONE (23:13)
[2018-11-19] MEDS ORDERED: LIDOCAINE 5% TOPICAL PATCH TP ONE (23:36)
[2018-11-19] MEDS ORDERED: ACETAMINOPHEN 500 MG TABLET (FP) PO ONE (23:36)
[2018-11-19] MEDS ORDERED: LIDOCAINE 5% TOPICAL PATCH ONE (23:38)
[2018-11-19] MEDS ORDERED: ACETAMINOPHEN 325 MG TABLET (FP) ONE (23:38)
--- NOTE | 2018-11-19 23:41 | PDOC ---
Documentation entered by Tammy Lima SCRIBE, acting as scribe for Sri Rankin DO. Sri Rankin DO: This documentation has been prepared by the Clarence tirado Mackenzie, SCRIBE, under my direction and personally reviewed by me in its entirety. I confirm that the documentation accurately reflects all work, treatment, procedures, and medical decision making performed by me. Attending Attestation - Resident Resident Name: Yanira West - ED Attending Attestation I have performed the following: I have examined & evaluated the patient, The case was reviewed & discussed with the resident, I agree w/resident's findings & plan - HPI HPI: Patient is a 63 year old female with a significant PMH of chronic back pain who presents to the ED for the third time in 24 hours with lower back pain radiating to her right buttock. Denies any GI or urinary symptoms. 11/19/18 23:07 - Physicial Exam PE: GENERAL: Awake, in no acute distress HEAD: No signs of trauma EYES: ENT:clear without exudates. Moist mucosa NECK: Normal ROM, LUNGS:. Normal work of breathing. HEART: Regular rate and rhythm, ABDOMEN: Soft, nondistended CHEST WALL: BACK: No midline tenderness. EXTREMITIES:. No erythema, or tenderness NEUROLOGICAL: Alert, SKIN: Warm, Dry 11/19/18 22:44 - Medical Decision Making 11/19/18 23:39 63-year-old female now on her third visit in [address] pain CT scan of the abdomen and lumbar spine were performed yesterday with no significant acute abnormality Patient remains neuro intact with no new injury reported There are no indicators of spinal cord compression or injury Patient will receive Tylenol and Lidoderm patch She was advised strongly to follow up with outpatient pain management and orthopedics
== END 2018-11-20 00:21 | disposition home or self-care (01) ==
LOC: JER 21:43
PROC: 3E033NZ Introduction of Analgesics, Hypnotics, Sedatives into Peripheral Vein, Percutaneous Approach (ICD-10-PCS; principal; 2018-11-19)
DX: M54.42 Lumbago with sciatica, left side (principal); G89.29 Other chronic pain; J45.909 Unspecified asthma, uncomplicated; E78.00 Pure hypercholesterolemia, unspecified; F41.8 Other specified anxiety disorders; E03.9 Hypothyroidism, unspecified; Z87.891 Personal history of nicotine dependence; I10 Essential (primary) hypertension; N20.0 Calculus of kidney
CPT/HCPCS: 99281-25

== ENCOUNTER 2018-11-27 22:32 | Emergency (ER) | payer OTHER | END 2018-11-28 04:23 | disposition home or self-care (01) | LOC: JER 22:32 ==

== ENCOUNTER 2018-12-02 11:24 | Emergency (ER) | payer OTHER | END 2018-12-02 14:06 | disposition home or self-care (01) | LOC: JER 11:24 ==

== ENCOUNTER 2018-12-07 21:19 | Emergency (ER) | payer OTHER ==
[2018-12-07 21:35] VITALS: BP 148/70; PULSE 79; TEMP 98.2; BMI 21.6
--- NOTE | 2018-12-07 21:50 | PDOC ---
History of Present Illness - General Chief Complaint: Back Pain Stated Complaint: BACK PAIN Time Seen by Provider: 12/07/18 21:46 - History of Present Illness Initial Comments: 12/07/18 21:49 43-year-old female and renal failure now on dialysis presents for evaluation of lower back pain without radicular symptoms loss of bowel or bladder function. Pain started this afternoon and is typical of her lower back pain which she usually gets chronically. Past History - Past Medical History Allergies/Adverse Reactions: Allergies Allergy/AdvReac Type Severity Reaction Status Date / Time levofloxacin [From Levaquin] Allergy Mild Itching Verified 12/07/18 21:25 Home Medications: Ambulatory Orders Amlodipine Besylate [Norvasc -] 10 mg PO DAILY 08/09/18 Apixaban [Eliquis] 2.5 mg PO BID 08/09/18 Atorvastatin Ca [Lipitor] 20 mg PO HS 08/09/18 Docusate Sodium [Colace] 300 mg PO DAILY 08/09/18 Duloxetine HCl [Cymbalta -] 60 mg PO DAILY 08/09/18 Fluticasone/Salmeterol [Advair 250-50 Diskus] 1 each IH BID 08/09/18 Lorazepam [Ativan] 1 mg PO DAILY 08/09/18 Melatonin 5 mg PO HS 08/09/18 Nicotine [Nicotine Patch 7 mg/24 hr] 1 each TD DAILY 08/09/18 Sennosides [Senna] 8.6 mg PO HS 08/09/18 Amiodarone HCl [Cordarone -] 200 mg PO DAILY #30 tablet 08/20/18 Gabapentin [Neurontin -] 300 mg PO TID #30 capsule 08/20/18 Metoprolol Succinate [Toprol XL -] 25 mg PO DAILY #30 tab.sr.24h 08/20/18 Tramadol HCl 50 mg PO Q6H #12 tablet MDD 200mg 11/03/18 Albuterol Sulfate Inhaler - [Ventolin HFA Inhaler -] 1 - 2 inh PO Q4H PRN #1 inhaler 11/19/18 Clobetasol Propionate [Temovate] 30 gm TP BID #1 oint...g. 11/19/18 LORazepam [Ativan] 1 mg PO BID #14 tablet MDD 2 11/19/18 Lidocaine 5% Patch [Lidoderm -] 1 patch TP DAILY #7 patch 11/19/18 Lidocaine 5% Patch [Lidoderm Patch -] 1 patch TP DAILY #7 patch 11/19/18 Anemia: Yes Asthma: Yes Cancer: No Cardiac Disorders: Yes CVA: No COPD: Yes CHF: No DVT: No Dementia: No Diabetes: No Dialysis: Yes GI Disorders: Yes (bleeding ulcer) Disorders: Yes (KIDNEY STONE;) HTN: Yes Hypercholesterolemia: Yes Kidney Stones: Yes Liver Disease: No Psychiatric Problems: Yes (ANXIETY, DEPRESSION) Seizures: No Thyroid Disease: Yes (hypothyroid) - Surgical History Abdominal Surgery: No Appendectomy: No Cardiac Surgery: No Cholecystectomy: No Lung Surgery: No Neurologic Surgery: No Orthopedic Surgery: Yes (B/L hip replacement (rt 2009; left 2012)) - Immunization History Td Vaccination: Yes TDAP Vaccination: No Immunization Up to Date: Yes - Suicide/Smoking/Psychosocial Hx Smoking Status: Yes Smoking History: Current every day smoker Years of Tobacco Use: 30 Have you smoked in the past 12 months: Yes Number of Cigarettes Smoked Daily: 7 If you are a former smoker, when did you quit?: refused booklet 07/21/14 Cigars Per Day: 0 Information on smoking cessation initiated: Yes 'Breaking Loose' booklet given: 08/09/18 Hx Alcohol Use: No Drug/Substance Use Hx: No Substance Use Type: None Hx Substance Use Treatment: Yes Review of Systems - Review of Systems Musculoskeletal: Yes: Back Pain *Physical Exam - Vital Signs Last Vital Signs Temp Pulse Resp BP Pulse Ox 98.2 F 79 16 148/70 97 12/07/18 21:26 12/07/18 21:26 12/07/18 21:26 12/07/18 21:26 12/07/18 21:26 - Physical Exam Comments: 12/07/18 21:49 Decreased range of motion and lumbar spine no gross sensory motor deficits neurovascularly intact Medical Decision Making - Medical Decision Making 12/07/18 21:48 discussed use of Tylenol at home. Patient is now on dialysis and renal failure no more Toradol *DC/Admit/Observation/Transfer Diagnosis at time of Disposition: Muscle spasm of back, Chronic low back pain - Discharge Dispostion Disposition: HOME Condition at time of disposition: Stable Decision to Admit order: No - Referrals Referrals: Darius Martino MD, [facility] [Staff Physician] - - Patient Instructions Printed Discharge Instructions: Low Back Pain, DI for Low Back Pain, Managing Chronic Low Back Pain Additional Instructions: Because of your kidney failure you cannot take anti-inflammatories. 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 Return to the emergency room for worsening symptoms. - Post Discharge Activity
[2018-12-07] MEDS ORDERED: ACETAMINOPHEN 325 MG TABLET (FP) PO ONE (21:54)
[2018-12-07] MEDS ORDERED: ACETAMINOPHEN 325 MG TABLET (FP) ONE (21:58)
== END 2018-12-07 22:04 | disposition home or self-care (01) ==
LOC: JERFT 21:19 → JER 21:19 → JERFT 22:04
DX: M62.830 Muscle spasm of back (principal); M54.5 Low back pain; G89.29 Other chronic pain; N19 Unspecified kidney failure; Z99.2 Dependence on renal dialysis; D64.9 Anemia, unspecified; I10 Essential (primary) hypertension; E78.00 Pure hypercholesterolemia, unspecified; E03.9 Hypothyroidism, unspecified; F17.210 Nicotine dependence, cigarettes, uncomplicated; Z96.643 Presence of artificial hip joint, bilateral
CPT/HCPCS: 99281-25

== ENCOUNTER 2018-12-10 16:43 | Emergency (ER) | payer OTHER ==
[2018-12-10 16:51] VITALS: BP 149/82; PULSE 87; TEMP 98.1; BMI 23.9
--- NOTE | 2018-12-10 16:51 | PDOC ---
Rapid Medical Evaluation Chief Complaint: Pain, Acute Time Seen by Provider: 12/10/18 16:46 Medical Evaluation: Allergies Allergy/AdvReac Type Severity Reaction Status Date / Time levofloxacin [From Levaquin] Allergy Mild Itching Verified 12/07/18 21:25 12/10/18 16:47 I have performed a brief in-person evaluation of this patient. The patient presents with a chief complaint of: pain and ball sensation to right underarm since this AM. Denies fever, chills Pertinent physical exam findings: small axilla lymphadenitis . no abscess to axilla. small area of ecchymosis to skin of right axilla I have ordered the following: nothing The patient will proceed to the ED for further evaluation. Discharge Disposition - Diagnosis Axillary lymphadenitis - Discharge Dispostion Condition at time of disposition: Stable - Referrals - Patient Instructions - Post Discharge Activity
--- NOTE | 2018-12-10 17:09 | PDOC ---
History of Present Illness - General Chief Complaint: Pain, Acute Stated Complaint: ARM PAIN Time Seen by Provider: 12/10/18 16:46 Past History - Past Medical History Allergies/Adverse Reactions: Allergies Allergy/AdvReac Type Severity Reaction Status Date / Time levofloxacin [From Levaquin] Allergy Mild Itching Verified 12/10/18 16:51 Home Medications: Ambulatory Orders Amlodipine Besylate [Norvasc -] 10 mg PO DAILY 08/09/18 Apixaban [Eliquis] 2.5 mg PO BID 08/09/18 Atorvastatin Ca [Lipitor] 20 mg PO HS 08/09/18 Docusate Sodium [Colace] 300 mg PO DAILY 08/09/18 Duloxetine HCl [Cymbalta -] 60 mg PO DAILY 08/09/18 Fluticasone/Salmeterol [Advair 250-50 Diskus] 1 each IH BID 08/09/18 Lorazepam [Ativan] 1 mg PO DAILY 08/09/18 Melatonin 5 mg PO HS 08/09/18 Nicotine [Nicotine Patch 7 mg/24 hr] 1 each TD DAILY 08/09/18 Sennosides [Senna] 8.6 mg PO HS 08/09/18 Amiodarone HCl [Cordarone -] 200 mg PO DAILY #30 tablet 08/20/18 Gabapentin [Neurontin -] 300 mg PO TID #30 capsule 08/20/18 Metoprolol Succinate [Toprol XL -] 25 mg PO DAILY #30 tab.sr.24h 08/20/18 Tramadol HCl 50 mg PO Q6H #12 tablet MDD 200mg 11/03/18 Albuterol Sulfate Inhaler - [Ventolin HFA Inhaler -] 1 - 2 inh PO Q4H PRN #1 inhaler 11/19/18 Clobetasol Propionate [Temovate] 30 gm TP BID #1 oint...g. 11/19/18 LORazepam [Ativan] 1 mg PO BID #14 tablet MDD 2 11/19/18 Lidocaine 5% Patch [Lidoderm -] 1 patch TP DAILY #7 patch 11/19/18 Lidocaine 5% Patch [Lidoderm Patch -] 1 patch TP DAILY #7 patch 11/19/18 Anemia: Yes Asthma: Yes Cancer: No Cardiac Disorders: Yes CVA: No COPD: Yes CHF: No DVT: No Dementia: No Diabetes: No Dialysis: Yes GI Disorders: Yes (bleeding ulcer) Disorders: Yes (KIDNEY STONE;) HTN: Yes Hypercholesterolemia: Yes Kidney Stones: Yes Liver Disease: No Psychiatric Problems: Yes (ANXIETY, DEPRESSION) Seizures: No Thyroid Disease: Yes (hypothyroid) - Surgical History Abdominal Surgery: No Appendectomy: No Cardiac Surgery: No Cholecystectomy: No Lung Surgery: No Neurologic Surgery: No Orthopedic Surgery: Yes (B/L hip replacement (rt 2009; left 2012)) - Immunization History Td Vaccination: Yes TDAP Vaccination: No Immunization Up to Date: Yes - Suicide/Smoking/Psychosocial Hx Smoking Status: Yes Smoking History: Never smoked Years of Tobacco Use: 30 Have you smoked in the past 12 months: No Number of Cigarettes Smoked Daily: 40 If you are a former smoker, when did you quit?: refused booklet 07/21/14 Cigars Per Day: 0 Information on smoking cessation initiated: No 'Breaking Loose' booklet given: 08/09/18 Hx Alcohol Use: No Drug/Substance Use Hx: No Substance Use Type: None Hx Substance Use Treatment: Yes *Physical Exam - Vital Signs Last Vital Signs Temp Pulse Resp BP Pulse Ox 98.1 F 87 17 149/82 97 12/10/18 16:48 12/10/18 16:48 12/10/18 16:48 12/10/18 16:48 12/10/18 16:48 *DC/Admit/Observation/Transfer Diagnosis at time of Disposition: Axillary lymphadenitis - Discharge Dispostion Condition at time of disposition: Stable - Referrals - Patient Instructions - Post Discharge Activity
--- NOTE | 2018-12-10 17:55 | PDOC ---
History of Present Illness - General Chief Complaint: Pain, Acute Stated Complaint: ARM PAIN Time Seen by Provider: 12/10/18 16:46 History Source: Patient, Old Records Exam Limitations: No Limitations - History of Present Illness Initial Comments: 12/10/18 17:57 HISTORY OF PRESENT ILLNESS: This a 63-year-old woman well-known to this emergency department presents emergency room for evaluation of pain to the right upper arm and lower back. Patient reports pain in her right upper arm started after her last dialysis treatment which was 12/09. In her lower back is her usual chronic lower back pain. Patient reports she has not taken anything for pain in the pain in her right arm worsens with abduction of her right shoulder. No recent travel or sick contacts. PAST MEDICAL HISTORY: ESRD (HD T/T/S), COPD, CHF, HTN, HLD, asthma, and chronic LBP SURGICAL HISTORY: RUE A-V fistula ALLERGIES: No known drug allergies REVIEW OF SYSTEMS General/Constitutional: Denies fever or chills. Denies weakness, weight change. HEENT: Denies change in vision. Denies ear pain or discharge. Denies sore throat. Cardiovascular: Denies chest pain or shortness of breath. Respiratory: Denies cough, wheezing, or hemoptysis. Gastrointestinal: Denies nausea, vomiting, diarrhea or constipation. Denies rectal bleeding. Genitourinary: Denies dysuria, frequency, or change in urination. Musculoskeletal: see HPI Skin and breasts: Denies rash or easy bruising. Neurologic: Denies headache, vertigo, loss of consciousness, or loss of sensation. Psychiatric: Denies depression or anxiety. Endocrine: Denies increased thirst. Denies abnormal weight change. Hematologic/Lymphatic: Denies anemia, easy bleeding, or history of blood clots. Allergic/Immunologic: Denies hives or skin allergy. Denies latex allergy. PHYSICAL EXAM General Appearance: Well-appearing, appropriately dressed. No apparent distress , no intoxication. Respiratory/Chest: Lungs CTAB. No shortness of breath, chest tenderness, respiratory distress, accessory muscle use. No crackles, rales, rhonchi, stridor , wheezing, dullness Cardiovascular: RRR. S1, S2. No JVD, murmur, bradycardia, tachycardia. Vascular Pulses: Radial (R): 2+, Radial (L): 2+ Gastrointestinal/Abdominal: Normal bowel sounds. Abdomen soft, non-distended. No tenderness or rebound tenderness. No organomegaly, pulsatile mass, guarding, hernia, hepatomegaly, splenomegaly. Lymphatic: No adenopathy, tenderness. Musculoskeletal/Extremities: Scant amount of ecchymosis present over the proximal portion of right AV fistula extending proximally into the axilla. (+) bruit. (+) thrill. Range of motion decreased with right shoulder abduction. No CVAT. Integumentary: see m/s assessment Neurologic: early education teacher II-XII intact. Fully oriented, alert. Appropriate mood/affect. Motor strength 5/5. No appreciable EOM palsy, facial droop or sensory deficit. 12/10/18 17:59 12/10/18 18:45 Past History - Past Medical History Allergies/Adverse Reactions: Allergies Allergy/AdvReac Type Severity Reaction Status Date / Time levofloxacin [From Levaquin] Allergy Mild Itching Verified 12/10/18 16:51 Home Medications: Ambulatory Orders Amlodipine Besylate [Norvasc -] 10 mg PO DAILY 08/09/18 Apixaban [Eliquis] 2.5 mg PO BID 08/09/18 Atorvastatin Ca [Lipitor] 20 mg PO HS 08/09/18 Docusate Sodium [Colace] 300 mg PO DAILY 08/09/18 Duloxetine HCl [Cymbalta -] 60 mg PO DAILY 08/09/18 Fluticasone/Salmeterol [Advair 250-50 Diskus] 1 each IH BID 08/09/18 Lorazepam [Ativan] 1 mg PO DAILY 08/09/18 Melatonin 5 mg PO HS 08/09/18 Nicotine [Nicotine Patch 7 mg/24 hr] 1 each TD DAILY 08/09/18 Sennosides [Senna] 8.6 mg PO HS 08/09/18 Amiodarone HCl [Cordarone -] 200 mg PO DAILY #30 tablet 08/20/18 Gabapentin [Neurontin -] 300 mg PO TID #30 capsule 08/20/18 Metoprolol Succinate [Toprol XL -] 25 mg PO DAILY #30 tab.sr.24h 08/20/18 Tramadol HCl 50 mg PO Q6H #12 tablet MDD 200mg 11/03/18 Albuterol Sulfate Inhaler - [Ventolin HFA Inhaler -] 1 - 2 inh PO Q4H PRN #1 inhaler 11/19/18 Clobetasol Propionate [Temovate] 30 gm TP BID #1 oint...g. 11/19/18 LORazepam [Ativan] 1 mg PO BID #14 tablet MDD 2 11/19/18 Lidocaine 5% Patch [Lidoderm -] 1 patch TP DAILY #7 patch 11/19/18 Lidocaine 5% Patch [Lidoderm Patch -] 1 patch TP DAILY #7 patch 11/19/18 Anemia: Yes Asthma: Yes Cancer: No Cardiac Disorders: Yes CVA: No COPD: Yes CHF: No DVT: No Dementia: No Diabetes: No Dialysis: Yes GI Disorders: Yes (bleeding ulcer) Disorders: Yes (KIDNEY STONE;) HTN: Yes Hypercholesterolemia: Yes Kidney Stones: Yes Liver Disease: No Psychiatric Problems: Yes (ANXIETY, DEPRESSION) Seizures: No Thyroid Disease: Yes (hypothyroid) - Surgical History Abdominal Surgery: No Appendectomy: No Cardiac Surgery: No Cholecystectomy: No Lung Surgery: No Neurologic Surgery: No Orthopedic Surgery: Yes (B/L hip replacement (rt 2009; left 2012)) - Immunization History Td Vaccination: Yes TDAP Vaccination: No Immunization Up to Date: Yes - Suicide/Smoking/Psychosocial Hx Smoking Status: Yes Smoking History: Never smoked Years of Tobacco Use: 30 Have you smoked in the past 12 months: No Number of Cigarettes Smoked Daily: 40 If you are a former smoker, when did you quit?: refused booklet 07/21/14 Cigars Per Day: 0 Information on smoking cessation initiated: No 'Breaking Loose' booklet given: 08/09/18 Hx Alcohol Use: No Drug/Substance Use Hx: No Substance Use Type: None Hx Substance Use Treatment: Yes *Physical Exam - Vital Signs Last Vital Signs Temp Pulse Resp BP Pulse Ox 98.1 F 87 17 149/82 97 12/10/18 16:48 12/10/18 16:48 12/10/18 16:48 12/10/18 16:48 12/10/18 16:48 Medical Decision Making - Medical Decision Making 12/10/18 18:45 A/P: 63-year-old woman for evaluation of right arm pain and ecchymosis over the distal portion of her Dialysis graft Basic labs Ultrasound Offirmev Reassess 12/10/18 19:43 Ultrasound as read by Dr. Dodd: Visualization is somewhat limited due to patient's inability to fully tolerate standard ultrasound probe pressure. 80 fistula as well as a supplying artery and draining vein appear patent. No obvious fluid collection or hematoma is visualized I discussed the results of the ultrasound with the patient was verbalize understanding. Patient will be discharged home after she receives her IV Tylenol. *DC/Admit/Observation/Transfer Diagnosis at time of Disposition: Ecchymosis - Discharge Dispostion Disposition: HOME Condition at time of disposition: Stable Decision to Admit order: No - Referrals - Patient Instructions Additional Instructions: Take Tylenol as directed by manufacturers instructions as needed for pain. Continue dialysis on your usual schedule. Return to the emergency department for any new or worsening symptoms. Thank you very much for choosing us to provide her emergent health care needs. - Post Discharge Activity
[2018-12-10] MEDS ORDERED: ACETAMINOPHEN 1000 MG/100 ML VIAL (NON FORMULARY) IVPB ONE (17:56)
--- NOTE | 2018-12-10 19:31 | PDOC ---
*Physical Exam - Vital Signs Last Vital Signs Temp Pulse Resp BP Pulse Ox 98.1 F 87 17 149/82 97 12/10/18 16:48 12/10/18 16:48 12/10/18 16:48 12/10/18 16:48 12/10/18 16:48 Medical Decision Making - Medical Decision Making 12/10/18 19:30 Patient seen by the advanced practice provider under my direct supervision. Ancillary testing reviewed as necessary. I agree with plan as outlined by the advanced practice provider. *DC/Admit/Observation/Transfer Diagnosis at time of Disposition: Axillary lymphadenitis - Discharge Dispostion Condition at time of disposition: Stable - Referrals - Patient Instructions - Post Discharge Activity
[2018-12-10] MEDS ORDERED: ACETAMINOPHEN INJECTION 100 ML IVPB ONE (19:48)
== END 2018-12-10 20:06 | disposition home or self-care (01) ==
LOC: JER 16:43 → JERFT 16:43 → JER 20:06
PROC: 3E033NZ Introduction of Analgesics, Hypnotics, Sedatives into Peripheral Vein, Percutaneous Approach (ICD-10-PCS; principal; 2018-12-10)
DX: R58 Hemorrhage, not elsewhere classified (principal); Z87.891 Personal history of nicotine dependence; I10 Essential (primary) hypertension; F41.8 Other specified anxiety disorders; E78.00 Pure hypercholesterolemia, unspecified; E03.9 Hypothyroidism, unspecified; Z99.2 Dependence on renal dialysis; J44.9 Chronic obstructive pulmonary disease, unspecified
CPT/HCPCS: 93971; 96374; 99282-25; J0131

== ENCOUNTER 2018-12-11 14:42 | Emergency (ER) | payer OTHER ==
[2018-12-11 14:49] VITALS: BP 146/80; PULSE 95; TEMP 98.4; BMI 21.6
--- NOTE | 2018-12-11 14:58 | PDOC ---
Rapid Medical Evaluation Chief Complaint: Back Pain Time Seen by Provider: 12/11/18 14:47 Medical Evaluation: Allergies Allergy/AdvReac Type Severity Reaction Status Date / Time levofloxacin [From Levaquin] Allergy Mild Itching Verified 12/11/18 14:49 Vital Signs Temp Pulse Resp BP Pulse Ox 98.4 F 95 H 18 146/80 96 12/11/18 14:44 12/11/18 14:44 12/11/18 14:44 12/11/18 14:44 12/11/18 14:44 12/11/18 14:58 Pt c/o: rt arm pain near fistula, also with acute on chronic LBP, denies fever or urinary complaint Pt on brief exam: noted edematous rt upper arm above fistula, no increased warmth, had u/s done 2 days ago but pt still states pain, no sob Pt ordered for: duplex, comp cbc Pt to proceed to the ED Discharge Disposition - Diagnosis Arm pain, right Chronic back pain Qualifiers: Back pain location: low back pain Back pain laterality: unspecified Sciatica presence: without sciatica Qualified Code(s): M54.5 - Low back pain - Discharge Dispostion Disposition: HOME Condition at time of disposition: Stable - Prescriptions Prescriptions: Lidocaine 5% Patch [Lidoderm -] 1 patch TP DAILY #7 patch Naproxen 500 mg PO BID PRN #20 tablet PRN Reason: Back Pain - Referrals - Patient Instructions Printed Discharge Instructions: DI for Arteriovenous Fistula for Dialysis Additional Instructions: Apply warm compress to right arm as needed for pain and bruising. Take prescribed medications as needed for pain - Post Discharge Activity
[2018-12-11 16:20] LABS: BASO % 0.6 % (0-2.0); EOS % 2.1 % (0-4.5); HEMATOCRIT 36.8 % (32.4-45.2); HEMOGLOBIN 12.2 GM/dL (10.7-15.3); LYMPH % 20.8 % (8-40); MCH 30.9 pg (25.7-33.7); MCHC 33.1 g/dl (32.0-36.0); MEAN CELL VOLUME 93.4 fl (80-96); MEAN PLT VOLUME 7.6 fl (7.5-11.1); MONO % 6.3 % (3.8-10.2); NEUT % 70.2 % (42.8-82.8); PLATELET COUNT 408 K/MM3 (134-434); RBC 3.94 M/mm3 (3.60-5.2); RDW 17.7 % (11.6-15.6); WHITE BLOOD COUNT 8.8 K/mm3 (4.0-10.0)
[2018-12-11 16:23] LABS: ALBUMIN 3.2 g/dl (3.4-5.0); BILIRUBIN,TOTAL 0.4 mg/dL (0.2-1); BLOOD UREA NITROGEN 90.6 mg/dL (7-18); CALCIUM 9.1 mg/dL (8.5-10.1); CREATININE 7.2 mg/dL (0.55-1.3); POTASSIUM 4.5 mmol/L (3.5-5.1); TOT PROT 6.6 g/dl (6.4-8.2)
--- NOTE | 2018-12-11 17:22 | PDOC ---
History of Present Illness - General Chief Complaint: Back Pain Stated Complaint: BACK PAIN Time Seen by Provider: 12/11/18 14:47 History Source: Patient Exam Limitations: Clinical Condition - History of Present Illness Initial Comments: 12/11/18 17:35 Patient present with complains of persistent pain to right upper arm over dialysis fistula for 2 days. Patient was seen yesterday for same complains and duplex of right upper arm shows patent normal port. Patient had dialysis 3 days ago after which she had bruising to upper arm over port access area. Patient also report chronic back pain which pt had multiple visit to ED for chronic back pain which pt is taking tramadol for pain. Timing/Duration: other (2 days) Past History - Past Medical History Allergies/Adverse Reactions: Allergies Allergy/AdvReac Type Severity Reaction Status Date / Time levofloxacin [From Levaquin] Allergy Mild Itching Verified 12/11/18 14:49 Home Medications: Ambulatory Orders Amlodipine Besylate [Norvasc -] 10 mg PO DAILY 08/09/18 Apixaban [Eliquis] 2.5 mg PO BID 08/09/18 Atorvastatin Ca [Lipitor] 20 mg PO HS 08/09/18 Docusate Sodium [Colace] 300 mg PO DAILY 08/09/18 Duloxetine HCl [Cymbalta -] 60 mg PO DAILY 08/09/18 Fluticasone/Salmeterol [Advair 250-50 Diskus] 1 each IH BID 08/09/18 Lorazepam [Ativan] 1 mg PO DAILY 08/09/18 Melatonin 5 mg PO HS 08/09/18 Nicotine [Nicotine Patch 7 mg/24 hr] 1 each TD DAILY 08/09/18 Sennosides [Senna] 8.6 mg PO HS 08/09/18 Amiodarone HCl [Cordarone -] 200 mg PO DAILY #30 tablet 08/20/18 Gabapentin [Neurontin -] 300 mg PO TID #30 capsule 08/20/18 Metoprolol Succinate [Toprol XL -] 25 mg PO DAILY #30 tab.sr.24h 08/20/18 Tramadol HCl 50 mg PO Q6H #12 tablet MDD 200mg 11/03/18 Albuterol Sulfate Inhaler - [Ventolin HFA Inhaler -] 1 - 2 inh PO Q4H PRN #1 inhaler 11/19/18 Clobetasol Propionate [Temovate] 30 gm TP BID #1 oint...g. 11/19/18 LORazepam [Ativan] 1 mg PO BID #14 tablet MDD 2 11/19/18 Lidocaine 5% Patch [Lidoderm -] 1 patch TP DAILY #7 patch 11/19/18 Lidocaine 5% Patch [Lidoderm -] 1 patch TP DAILY #7 patch 12/11/18 Naproxen 500 mg PO BID PRN #20 tablet 12/11/18 Anemia: Yes Asthma: Yes Cancer: No Cardiac Disorders: Yes CVA: No COPD: Yes CHF: No DVT: No Dementia: No Diabetes: No Dialysis: Yes GI Disorders: Yes (bleeding ulcer) Disorders: Yes (KIDNEY STONE;) HTN: Yes Hypercholesterolemia: Yes Kidney Stones: Yes Liver Disease: No Psychiatric Problems: Yes (ANXIETY, DEPRESSION) Seizures: No Thyroid Disease: Yes (hypothyroid) - Surgical History Abdominal Surgery: No Appendectomy: No Cardiac Surgery: No Cholecystectomy: No Lung Surgery: No Neurologic Surgery: No Orthopedic Surgery: Yes (B/L hip replacement (rt 2009; left 2012)) - Immunization History Td Vaccination: Yes TDAP Vaccination: No Immunization Up to Date: Yes - Suicide/Smoking/Psychosocial Hx Smoking Status: Yes Smoking History: Current every day smoker Years of Tobacco Use: 30 Have you smoked in the past 12 months: No Number of Cigarettes Smoked Daily: 3 If you are a former smoker, when did you quit?: refused booklet 07/21/14 Cigars Per Day: 0 Information on smoking cessation initiated: No 'Breaking Loose' booklet given: 08/09/18 Hx Alcohol Use: No Drug/Substance Use Hx: No Substance Use Type: None Hx Substance Use Treatment: Yes Review of Systems - Review of Systems Able to Perform ROS?: Yes Is the patient limited Senegalese proficient: No Constitutional: No: Chills, Fever, Malaise HEENTM: No: Symptoms Reported Respiratory: No: Symptoms reported Cardiac (ROS): No: Symptoms Reported ABD/GI: No: Symptoms Reported Musculoskeletal: Yes: Symptoms Reported, See HPI, Muscle Pain (right upper arm) Integumentary: No: Symptoms Reported Neurological: No: Symptoms reported All Other Systems: Reviewed and Negative *Physical Exam - Vital Signs Last Vital Signs Temp Pulse Resp BP Pulse Ox 98.4 F 95 H 18 146/80 96 12/11/18 14:44 08/22/19 14:44 12/11/18 14:44 12/11/18 14:44 12/11/18 14:44 - Physical Exam General Appearance: Yes: Nourished, Appropriately Dressed. No: Apparent Distress HEENT: positive: Normal ENT Inspection Neck: positive: Supple Respiratory/Chest: positive: Lungs Clear, Normal Breath Sounds. negative: Respiratory Distress, Accessory Muscle Use Cardiovascular: positive: Regular Rhythm, Regular Rate Musculoskeletal: positive: Normal Inspection Integumentary: positive: Warm, Ecchymosis (mild ecchymposis right axilla). negative: Diaphoresis, Swelling Neurologic: positive: Fully Oriented, Alert, Normal Mood/Affect, Normal Response ED Treatment Course - LABORATORY CBC & Chemistry Diagram: 12/11/18 15:38 12/11/18 15:22 - ADDITIONAL ORDERS Additional order review: Laboratory Results 12/11/18 15:22 Sodium 134 L Potassium 4.5 Chloride 101 Carbon Dioxide 18 L Anion Gap 15 BUN 90.6 H Creatinine 7.2 H Est GFR (CKD-EPI)AfAm 6.47 Est GFR (CKD-EPI)NonAf 5.59 Random Glucose 96 Calcium 9.1 Total Bilirubin 0.4 AST 13 L ALT 15 Alkaline Phosphatase 112 Total Protein 6.6 Albumin 3.2 L 12/11/18 15:38 RBC 3.94 MCV 93.4 MCHC 33.1 RDW 17.7 H MPV 7.6 Neutrophils % 70.2 Lymphocytes % 20.8 D Monocytes % 6.3 Eosinophils % 2.1 Basophils % 0.6 Medical Decision Making - Medical Decision Making 12/11/18 17:47 Patient present with complains of persistent pain to right upper arm over dialysis fistula for 2 days. Patient was seen yesterday for same complains and duplex of right upper arm shows patent normal port. Patient had dialysis 3 days ago after which she had bruising to upper arm over port access area. Patient also report chronic back pain which pt had multiple visit to ED for chronic back pain which pt is taking tramadol for pain. Exam significant for mild ecchymosis to port access site which is unchanged from yesterday as pt was seen yesterday by this provider. Patient stable for discharge with advise to do warm compress to ecchymosis area as needed for pain and Take Tylenol as needed for pain. Plan discussed with patient and pt agrees to plan. Patient stable for discharge *DC/Admit/Observation/Transfer Diagnosis at time of Disposition: Arm pain, right Chronic back pain Qualifiers: Back pain location: low back pain Back pain laterality: unspecified Sciatica presence: without sciatica Qualified Code(s): M54.5 - Low back pain - Discharge Dispostion Disposition: HOME Condition at time of disposition: Stable Decision to Admit order: No - Prescriptions Prescriptions: Lidocaine 5% Patch [Lidoderm -] 1 patch TP DAILY #7 patch Naproxen 500 mg PO BID PRN #20 tablet PRN Reason: Back Pain - Referrals - Patient Instructions Printed Discharge Instructions: DI for Arteriovenous Fistula for Dialysis Additional Instructions: Apply warm compress to right arm as needed for pain and bruising. Take prescribed medications as needed for pain - Post Discharge Activity
[2018-12-11] MEDS ORDERED: NAPROXEN 500 MG TABLET (FP) PO ONE (17:23)
[2018-12-11] MEDS ORDERED: NAPROXEN 500 MG TABLET (FP) ONE (17:26)
== END 2018-12-11 17:41 | disposition home or self-care (01) ==
LOC: JER 14:42
DX: M79.601 Pain in right arm (principal); M54.5 Low back pain; G89.29 Other chronic pain; I10 Essential (primary) hypertension; E78.5 Hyperlipidemia, unspecified; E03.9 Hypothyroidism, unspecified; J44.9 Chronic obstructive pulmonary disease, unspecified; Z99.2 Dependence on renal dialysis
CPT/HCPCS: 36415; 80053; 85025; 93971; 99282-25

== ENCOUNTER 2018-12-13 05:38 | Inpatient (IN) | payer OTHER ==
--- NOTE | 2018-12-13 05:44 | PDOC ---
History of Present Illness - General Stated Complaint: PAIN Time Seen by Provider: 12/13/18 05:44 History Source: Patient Exam Limitations: No Limitations - History of Present Illness Initial Comments: 63 year old female with PMH HTN, HLD, CHF, ESRD on HD (T/T/S), COPD, hypokalemia , pneumonia presented to ED for right axilla pain/bruising x2 days. Pt reported the symptoms are worsening, and the axilla/breast is becoming increasingly large , hard and tender. Pt denied trauma, fall, injury. Pt reported she skipped dialysis secondary to generalized malaise. Pt denied chest pain, shortness of breath, increasing lower extremity swelling. Pt reported chronic lower right back pain, similar to previous. Allergies: Levaquin Past History - Past Medical History Allergies/Adverse Reactions: Allergies Allergy/AdvReac Type Severity Reaction Status Date / Time levofloxacin [From Levaquin] Allergy Mild Itching Verified 12/13/18 06:27 Home Medications: Ambulatory Orders Amlodipine Besylate [Norvasc -] 10 mg PO DAILY 08/09/18 Apixaban [Eliquis] 2.5 mg PO BID 08/09/18 Atorvastatin Ca [Lipitor] 20 mg PO HS 08/09/18 Duloxetine HCl [Cymbalta -] 60 mg PO DAILY 08/09/18 Fluticasone/Salmeterol [Advair 250-50 Diskus] 1 each IH BID 08/09/18 Lorazepam [Ativan] 1 mg PO DAILY 08/09/18 Melatonin 5 mg PO HS 08/09/18 Sennosides [Senna] 8.6 mg PO HS 08/09/18 Amiodarone HCl [Cordarone -] 200 mg PO DAILY #30 tablet 08/20/18 Gabapentin [Neurontin -] 300 mg PO TID #30 capsule 08/20/18 Metoprolol Succinate [Toprol XL -] 25 mg PO DAILY #30 tab.sr.24h 08/20/18 Tramadol HCl 50 mg PO Q6H #12 tablet MDD 200mg 11/03/18 Albuterol Sulfate Inhaler - [Ventolin HFA Inhaler -] 1 - 2 inh PO Q4H PRN #1 inhaler 11/19/18 LORazepam [Ativan] 1 mg PO BID #14 tablet MDD 2 11/19/18 Lidocaine 5% Patch [Lidoderm -] 1 patch TP DAILY #7 patch 12/11/18 Naproxen 500 mg PO BID PRN #20 tablet 12/11/18 Anemia: Yes Asthma: Yes Cancer: No Cardiac Disorders: Yes CVA: No COPD: Yes CHF: No DVT: No Dementia: No Diabetes: No Dialysis: Yes GI Disorders: Yes (bleeding ulcer) Disorders: Yes (KIDNEY STONE;) HTN: Yes Hypercholesterolemia: Yes Kidney Stones: Yes Liver Disease: No Psychiatric Problems: Yes (ANXIETY, DEPRESSION) Seizures: No Thyroid Disease: Yes (hypothyroid) - Surgical History Abdominal Surgery: No Appendectomy: No Cardiac Surgery: No Cholecystectomy: No Lung Surgery: No Neurologic Surgery: No Orthopedic Surgery: Yes (B/L hip replacement (rt 2009; left 2012)) - Immunization History Td Vaccination: Yes TDAP Vaccination: No Immunization Up to Date: Yes - Suicide/Smoking/Psychosocial Hx Smoking Status: Yes Smoking History: Current every day smoker Years of Tobacco Use: 30 Have you smoked in the past 12 months: No Number of Cigarettes Smoked Daily: 3 If you are a former smoker, when did you quit?: refused booklet 07/21/14 Cigars Per Day: 0 'Breaking Loose' booklet given: 08/09/18 Hx Alcohol Use: No Drug/Substance Use Hx: No Substance Use Type: None Hx Substance Use Treatment: Yes Review of Systems - Review of Systems Able to Perform ROS?: Yes Comments:: General: denied fever, chills, generalized weakness. HEENT: denied sore throat, rhinorrhea, ear pain. Cardiovascular: denied chest pain, palpitations, syncope, diaphoresis. Respiratory: denied shortness of breath, cough, sputum production, hemoptysis. Gastrointestinal: denied abdominal pain, nausea, vomiting, diarrhea, constipation, blood in stool. Genitourinary: denied dysuria, increased urinary frequency, hematuria, urinary incontinence, flank pain. Back: admitted to back pain. Musculoskeletal: denied joint pain, joint swelling. Neurological: denied headache, dizziness, numbness, tingling, weakness. Integumentary: denied rash, laceration, abrasion. Hematologic/Lymphatic: admitted to bruising. *Physical Exam - Physical Exam Comments: Constitutional: Well-nourished, Well-developed, appearing stated age. HEENT: head is normocephalic, atraumatic. EOMI. PERRLA. Neck: supple. Full ROM. Cardiovascular: regular heart rhythm. no murmurs. no pericardial friction rub. Anterior chest wall: ecchmoses to right axilla, right breast. increased fullness to right axilla/right anterior chest wall with tenderness. Respiratory: bibasilar crackles. Gastrointestinal: soft, nontender. normal bowel sounds. no rebound, guarding, masses. Extremities: peripheral pulses intact. 3+ pitting edema to upper and lower extremities. right upper extremity fistula with palpable thrill. Neurological: CN 2-12 grossly intact. moves all four extremities. Psych: awake, alert, oriented x3. follows commands. answers questions appropriately. ED Treatment Course - LABORATORY CBC & Chemistry Diagram: 12/13/18 06:30 12/13/18 06:30 Medical Decision Making - Medical Decision Making 63 year old female with above PMH presented to ED for right axilla/chest wall ecchymoses/fullness. Initial Vital Signs Temp Pulse Resp BP Pulse Ox 97.9 F 101 H 20 188/94 H 100 12/13/18 05:50 12/13/18 05:50 12/13/18 05:50 12/13/18 05:50 12/13/18 05:50 Afebrile. Mild tachycardia. No tachynea. Hypertensive. No hypoxia on room air. Labs ordered: CBC, CMP, PT/PTT/INR, T&S Medications ordered: morphine 2 mg IV once, tylenol IV once Pt signed out to day EM Resident, Dr. Arredondo. Pending lab results, CT, CXR, US, EKG. *DC/Admit/Observation/Transfer Diagnosis at time of Disposition: Azotemia - Discharge Dispostion Condition at time of disposition: Stable - Referrals - Patient Instructions - Post Discharge Activity
[2018-12-13] MEDS ORDERED: ACETAMINOPHEN 1000 MG/100 ML VIAL (NON FORMULARY) IVPB ONE (05:51)
--- NOTE | 2018-12-13 06:19 | PDOC ---
Attending Attestation - Resident Resident Name: Lena Page - ED Attending Attestation I have performed the following: I have examined & evaluated the patient, The case was reviewed & discussed with the resident, I agree w/resident's findings & plan - HPI HPI: 12/13/18 06:47 Pt was last dialyzed 4 days ago. She has hematomas purple blue extending from the right axilla down her upper arm. Also hematoma in the left upper arm. Hmeatomas were noted after the last dialysis sessions. Pt complains of chronic back pain. Pt denies fall or injury or contusions. She didn't injure herself with her crutches, though she states that she uses her crutches. - Physicial Exam PE: 12/13/18 06:49 Pt's lungs are clear. Her back has no rashes and no flank pain. SHe has chonic musculoskeletal pain. She is afebrile. She has soft NT ND abd; legs are no swollen or edematous. - Medical Decision Making 12/13/18 06:50 Labs sent. She will be signed out to the day team and she will be admitted for dialysis.
[2018-12-13] MEDS ORDERED: morphine CARPU-JECT 4 MG/1 ML DISP.SYRIN IVPUSH ONE (06:35)
[2018-12-13] MEDS ORDERED: MORPHINE SULFATE 2 MG/ML VIAL ONE ×2 (06:36→20:17)
[2018-12-13 07:00] LABS: BASO % 0.5 % (0-2.0); EOS % 3.1 % (0-4.5); HEMATOCRIT 25.9 % (32.4-45.2); LYMPH % 18.1 % (8-40); MCH 31.1 pg (25.7-33.7); MCHC 33.4 g/dl (32.0-36.0); MEAN CELL VOLUME 92.9 fl (80-96); MEAN PLT VOLUME 7.6 fl (7.5-11.1); MONO % 7.2 % (3.8-10.2); NEUT % 71.1 % (42.8-82.8); PLATELET COUNT 408 K/MM3 (134-434); RBC 2.79 M/mm3 (3.60-5.2); RDW 17.4 % (11.6-15.6)
--- NOTE | 2018-12-13 07:11 | PDOC ---
*Physical Exam - Vital Signs Last Vital Signs Temp Pulse Resp BP Pulse Ox 97.9 F 101 H 20 188/94 H 100 12/13/18 05:50 12/13/18 05:50 12/13/18 05:50 12/13/18 05:50 12/13/18 05:50 ED Treatment Course - LABORATORY CBC & Chemistry Diagram: 12/13/18 06:30 12/13/18 06:30 - Medications Given in the ED: ED Medications Discontinued Medications Generic Name Dose Route Start Last Admin Trade Name Rip PRN Reason Stop Dose Admin Morphine Sulfate 2 mg 12/13/18 06:35 12/13/18 05:50 Morphine Injection - IVPUSH 12/13/18 06:36 2 mg ONCE ONE Administration Medical Decision Making - Medical Decision Making 12/13/18 07:[address] Page. Patient is 63F well known to ED here today with enlarging hematoma around dialysis access. Denies trauma. Has not gone to dialysis. Showing signs of fluid overload. Concern for dialysis shunt complication as well as complication from missing dialysis. Labs drawn, pending imaging. Likely admission. 12/13/18 08:04 Patient complaining of pruritis. Reassessed, lungs clear, no rash, breathing easily. Given benadryl. 12/13/18 12:24 CBC normal. CMP shows azotemia, high Cr, K normal, consistent with missing dialysis. CXR clear. US shows hematoma of decreasing size. CT pending, read delayed. Hospitalist paged for admission, patient requires admission for dialysis and azotemia. 12/13/18 14:44 Case d/w Dr Gray, accepted to m/s. Patient currently in dialysis. 12/13/18 15:56 Case d/w Dr Gray, no longer his patient, accepted by Dr Cruz. *DC/Admit/Observation/Transfer Diagnosis at time of Disposition: Azotemia - Discharge Dispostion Condition at time of disposition: Stable Decision to Admit order: Yes - Referrals - Patient Instructions - Post Discharge Activity
[2018-12-13] MEDS ORDERED: ACETAMINOPHEN INJECTION 100 ML IVPB ONE (07:20)
[2018-12-13 07:33] LABS: ALBUMIN 3.4 g/dl (3.4-5.0); BILIRUBIN,TOTAL 0.6 mg/dL (0.2-1); BLOOD UREA NITROGEN 103.4 mg/dL (7-18); CALCIUM 9.1 mg/dL (8.5-10.1); TOT PROT 6.6 g/dl (6.4-8.2)
[2018-12-13 07:34] LABS: CREATININE 8.2 mg/dL (0.55-1.3)
[2018-12-13 07:35] LABS: INR 1.09 (0.83-1.09); PROTHROMBIN TIME (PATIENT) 12.9 SEC (9.7-13.0)
[2018-12-13 07:37] LABS: HEMOGLOBIN 8.7 GM/dL (10.7-15.3)
[2018-12-13 07:38] LABS: ACTIVATED PTT 37.3 SECONDS (25.2-36.5)
--- NOTE | 2018-12-13 15:39 | CONSULT ---
Consult Consult Specialty:: Nephrology Reason for Consultation:: ESRD - History of Present Illness Chief Complaint: right arm bruising History of Present Illness: Pt is a 63 year old female with pmhx of htn, hld, chf, copd and esrd who presents to the ER with right axilla bruising. She denies trauma or fall. She has missed her last several HD session. She has history of non compliance. SHe denies shortness of breath. She denies chest pain or palpitations. She denies fevers or chills. She denies lower ext edema. 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: Peripheral Neuropathy Cardio/Vascular: Yes: HTN, Hyperlipdemia Pulmonary: Yes: Asthma, Bronchitis, COPD, Pneumonia Gastrointestinal: Yes: Gastritis Renal/: Yes: Renal Inusuff, Hemodialysis ...LMP: 07/25/12 Infectious Disease: Yes: MRSA Psych: Yes: Anxiety, Depression Musculoskeletal: Yes: Chronic low back pain Endocrine: Yes: Hyperthyroidism - Past Surgical History Past Surgical History: Yes: AV Fistula/Graft, Joint Replacement (hip replacement ) - Alcohol/Substance Use Hx Alcohol Use: No History of Substance Use: reports: Marijuana - Smoking History Smoking history: Current every day smoker Have you smoked in the past 12 months: No Aproximately how many cigarettes per day: 3 If you are a former smoker, when did you quit?: refused booklet 07/21/14 - Social History Usual Living Arrangement: With Child ADL: Independent Occupation: not working, SSI History of Recent Travel: No Home Medications - Allergies Allergies/Adverse Reactions: Allergies Allergy/AdvReac Type Severity Reaction Status Date / Time levofloxacin [From Levaquin] Allergy Mild Itching Verified 12/13/18 06:27 - Home Medications Home Medications: Ambulatory Orders Amlodipine Besylate [Norvasc -] 10 mg PO DAILY 08/09/18 Apixaban [Eliquis] 2.5 mg PO BID 08/09/18 Atorvastatin Ca [Lipitor] 20 mg PO HS 08/09/18 Duloxetine HCl [Cymbalta -] 60 mg PO DAILY 08/09/18 Fluticasone/Salmeterol [Advair 250-50 Diskus] 1 each IH BID 08/09/18 Lorazepam [Ativan] 1 mg PO DAILY 08/09/18 Melatonin 5 mg PO HS 08/09/18 Sennosides [Senna] 8.6 mg PO HS 08/09/18 Amiodarone HCl [Cordarone -] 200 mg PO DAILY #30 tablet 08/20/18 Gabapentin [Neurontin -] 300 mg PO TID #30 capsule 08/20/18 Metoprolol Succinate [Toprol XL -] 25 mg PO DAILY #30 tab.sr.24h 08/20/18 Tramadol HCl 50 mg PO Q6H #12 tablet MDD 200mg 11/03/18 Albuterol Sulfate Inhaler - [Ventolin HFA Inhaler -] 1 - 2 inh PO Q4H PRN #1 inhaler 11/19/18 LORazepam [Ativan] 1 mg PO BID #14 tablet MDD 2 11/19/18 Lidocaine 5% Patch [Lidoderm -] 1 patch TP DAILY #7 patch 12/11/18 Naproxen 500 mg PO BID PRN #20 tablet 12/11/18 Family Disease History - Family Disease History Family Disease History: Other: Father (alive), Mother (alive), Sister (alive), Son (23 yo old - alive - healthy) Review of Systems - Review of Systems Constitutional: reports: Malaise Eyes: reports: No Symptoms HENT: reports: No Symptoms Neck: reports: No Symptoms Cardiovascular: reports: No Symptoms Gastrointestinal: reports: No Symptoms Genitourinary: reports: No Symptoms Musculoskeletal: reports: Other (right arm swelling) Integumentary: reports: No Symptoms Neurological: reports: No Symptoms Endocrine: reports: No Symptoms Hematology/Lymphatic: reports: No Symptoms Psychiatric: reports: No Symptoms Physical Exam Vital Signs: Vital Signs Temperature 97.9 F 12/13/18 05:50 Pulse Rate 108 H 12/13/18 10:03 Respiratory Rate 20 12/13/18 05:50 Blood Pressure 157/80 12/13/18 10:03 O2 Sat by Pulse Oximetry (%) 97 12/13/18 10:03 Constitutional: Yes: Calm Eyes: Yes: Conjunctiva Clear HENT: Yes: Atraumatic Neck: Yes: Supple Cardiovascular: Yes: S1, S2 Respiratory: Yes: CTA Bilaterally Gastrointestinal: Yes: Normal Bowel Sounds, Soft Musculoskeletal: Yes: WNL Extremities: Yes: Other (right axilla swelling) Edema: No Neurological: Yes: Oriented Psychiatric: Yes: Oriented Labs: CBC, BMP 12/13/18 06:30 12/13/18 06:30 Laboratory Tests 12/13/18 12/13/18 06:30 06:30 WBC 11.0 H Hgb 8.7 L Sodium 132 L Potassium 4.0 BUN 103.4 H Creatinine 8.2 H* Imaging - Results Chest X-ray: Report Reviewed Ultrasound: Report Reviewed Problem List - Problems (1) COPD exacerbation Code(s): J44.1 - CHRONIC OBSTRUCTIVE PULMONARY DISEASE W (ACUTE) EXACERBATION (2) ESRD (end stage renal disease) on dialysis Code(s): N18.6 - END STAGE RENAL DISEASE; Z99.2 - DEPENDENCE ON RENAL DIALYSIS Assessment/Plan Impression 1. ESRD 2. non compliance with HD schedule 3. chronic back pain 4. anemia 5. anxiety 6. hx of nsaid use 7. chf diastolic 8. possible complex renal cyst 9. HLD 10. nephrolithiasis 11. 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 hematoma of right axilla Plan - will arrange for HD today - discussed compliance - epogen for anemia - vascular eval - renal diet - smoking cessation
[2018-12-13] MEDS ORDERED: SODIUM CHLORIDE 250 ML IV PRN (15:43)
--- NOTE | 2018-12-13 15:47 | EKG ---
Test Reason : Blood Pressure : / mmHG Vent. Rate : 110 BPM Atrial Rate : 110 BPM P-R Int : 154 ms QRS Dur : 092 ms QT Int : 344 ms P-R-T Axes : -26 -34 106 degrees QTc Int : 465 ms SINUS TACHYCARDIA WITH PREMATURE ATRIAL COMPLEXES LEFT AXIS DEVIATION INCOMPLETE RIGHT BUNDLE BRANCH BLOCK T WAVE ABNORMALITY, CONSIDER LATERAL ISCHEMIA ABNORMAL ECG WHEN COMPARED WITH ECG OF 12-AUG-2018 14:50, PREMATURE ATRIAL COMPLEXES ARE NOW PRESENT Confirmed by JOHNNA BURGESS, MYLES ([id number]) on 12/13/2018 3:46:33 PM Referred By: Confirmed By:MYLES OROPEZA MD
[2018-12-13] MEDS ORDERED: EPOETIN ALFA 10,000 UNIT/1 ML VIAL IVPUSH ONE (16:00)
[2018-12-13] MEDS ORDERED: traMADol HCL 50 MG TABLET PO PRN (16:25)
[2018-12-13] MEDS ORDERED: ALBUTEROL SO4 8 GM HFA INHALER IH PRN (16:25)
[2018-12-13] MEDS ORDERED: DOCUSATE SODIUM 100 MG CAPSULE (FP) PO PRN (16:56)
[2018-12-13] MEDS ORDERED: ACETAMINOPHEN 325 MG TABLET (FP) PO PRN (16:56)
[2018-12-13] MEDS ORDERED: diphenhydrAMINE HCL 25 MG CAPSULE (FP) PO PRN (16:56)
--- NOTE | 2018-12-13 17:17 | HP ---
Admitting History and Physical - Primary Care Physician PCP: none - Admission Chief Complaint: generalized itching and right upper arm pain History of Present Illness: 63 year old F with h/o asthma, ESRD on HD, chronic LBP, anxiety, tobacco dependence, HTN, afib (on amiodarone and eliquis) presents to ED after missing two HD sessions. Ms. Matamoros reports missing HD sessions in the past, but she has never felt symptomatic as she does now. she reports Lower back pain, generalized pruritis, nausea, paresthesias to fingers, increased anxiety and chest discomfort. Additionally, she endorses increased pain to right upper arm which began after her HD session on 12/09. Workup revealed 6.3 x 1.7cm hematoma with patent AV fistula. pt continued her eliquis (last dose 12/12 AM), and decided to proceed to ED for evaluation. In ED Vitals: BP 146/91, HR 105, RR 18 Labs: BUN/Cr 103.4/8.2, PTT 37.3, H/H 8.7/25.9, WBC 11.0 right axilla US shows hematoma of decreasing size. PT sent for urgently for HD and admitted for further management. Pt seen in HD suite. She requested HD be d/billie after 1.5hours due to intense pruritis. She was treated with benadryl. 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 CLERK: Yes: Peripheral Neuropathy Cardiovascular: Yes: HTN, Hyperlipdemia Pulmonary: Yes: Asthma, Bronchitis, COPD, Pneumonia Gastrointestinal: Yes: Gastritis Renal/: Yes: Renal Inusuff, Hemodialysis Reproductive: Yes: Postmenopausal ...LMP: 07/25/12 Heme/Onc: Yes: Anemia, Other (history ovarian cancer) Infectious Disease: Yes: MRSA Psych: Yes: Anxiety, Depression Musculoskeletal: Yes: Chronic low back pain Endocrine: Yes: Hyperthyroidism - Past Surgical History Past Surgical History: Yes: AV Fistula/Graft, Joint Replacement (hip replacement ) - Smoking History Smoking history: Current every day smoker Have you smoked in the past 12 months: Yes Aproximately how many cigarettes per day: 3 If you are a former smoker, when did you quit?: refused booklet 07/21/14 - Alcohol/Substance Use Hx Alcohol Use: No History of Substance Use: reports: Marijuana - Social History Usual Living Arrangement: Yes: With Child ADL: Independent Occupation: not working, SSI History of Recent Travel: No Home Medications - Allergies Allergies/Adverse Reactions: Allergies Allergy/AdvReac Type Severity Reaction Status Date / Time levofloxacin [From Levaquin] Allergy Mild Itching Verified 12/13/18 06:27 - Home Medications Home Medications: Ambulatory Orders Amlodipine Besylate [Norvasc -] 10 mg PO DAILY 08/09/18 Apixaban [Eliquis] 2.5 mg PO BID 08/09/18 Atorvastatin Ca [Lipitor] 20 mg PO HS 08/09/18 Duloxetine HCl [Cymbalta -] 60 mg PO DAILY 08/09/18 Fluticasone/Salmeterol [Advair 250-50 Diskus] 1 each IH BID 08/09/18 Lorazepam [Ativan] 1 mg PO DAILY 08/09/18 Melatonin 5 mg PO HS 08/09/18 Sennosides [Senna] 8.6 mg PO HS 08/09/18 Amiodarone HCl [Cordarone -] 200 mg PO DAILY #30 tablet 08/20/18 Gabapentin [Neurontin -] 300 mg PO TID #30 capsule 08/20/18 Metoprolol Succinate [Toprol XL -] 25 mg PO DAILY #30 tab.sr.24h 08/20/18 Tramadol HCl 50 mg PO Q6H #12 tablet MDD 200mg 11/03/18 Albuterol Sulfate Inhaler - [Ventolin HFA Inhaler -] 1 - 2 inh PO Q4H PRN #1 inhaler 11/19/18 LORazepam [Ativan] 1 mg PO BID #14 tablet MDD 2 11/19/18 Lidocaine 5% Patch [Lidoderm -] 1 patch TP DAILY #7 patch 12/11/18 Naproxen 500 mg PO BID PRN #20 tablet 12/11/18 Family Disease History - Family Disease History Family Disease History: Other: Father (alive), Mother (alive), Sister (alive), Son (23 yo old - alive - healthy) Review of Systems - Review of Systems Constitutional: reports: Chills, Weakness Eyes: reports: No Symptoms HENT: reports: No Symptoms Neck: reports: No Symptoms Cardiovascular: reports: Chest Pain Respiratory: reports: No Symptoms Gastrointestinal: reports: Nausea Genitourinary: reports: No Symptoms Breasts: reports: Pain (right breast pain and bruising) Musculoskeletal: reports: Muscle Weakness Integumentary: reports: Bruising, Pruritis Neurological: reports: Unsteady Gait Endocrine: reports: No Symptoms Hematology/Lymphatic: reports: Easily Bruised Psychiatric: reports: Anxiety Physical Examination Vital Signs: Vital Signs Temperature 97.9 F 12/13/18 05:50 Pulse Rate 103 H 12/13/18 16:30 Respiratory Rate 18 12/13/18 16:30 Blood Pressure 140/89 12/13/18 16:30 O2 Sat by Pulse Oximetry (%) 97 12/13/18 10:03 Constitutional: Yes: Anxious, Mild Distress, Thin Eyes: Yes: Conjunctiva Clear, PERRL HENT: Yes: Atraumatic, Normocephalic Neck: Yes: Thyromegaly Cardiovascular: Yes: Regular Rate and Rhythm Respiratory: Yes: Regular, CTA Bilaterally Gastrointestinal: Yes: Normal Bowel Sounds, Soft ...Rectal Exam: Yes: Deferred Breast(s): Yes: Other (right breast w/o mass, + extensive ecchymosis lateral aspect extending into the axillary region.) Musculoskeletal: Yes: Muscle Weakness Extremities: Yes: Cool Edema: No Peripheral Pulses WNL: Yes Peripheral Pulses: Left Radial: 2+, Right Radial: 2+, Left Doralis Pedis: 2+, Right Dorsalis Pedis: 2+ Neurological: Yes: Alert, Oriented, Unsteady Gait ...Motor Strength: WNL Psychiatric: Yes: Alert, Oriented Labs: CBC, BMP 12/13/18 06:30 12/13/18 06:30 Imaging - Results Chest X-ray: Report Reviewed (CXr 12/13/2018 EXAM#: TYPE/EXAM: RESULT: [id number] RAD/CHEST X-RAY PORTABLE* Portable chest: Right axilla fullness. Ecchymosis. Right upper extremity fistula. Pain. A single apical lordotic view reveals a large heart, unfolded aorta, prominent heart and clear lung wagner. The angles are sharp and the soft tissues are intact. An acute process is not seen. Since 08/09/2018, there is no change of an adverse nature. Reported By: Forrest Balbuena MD 12/13/18 0908) Cat Scan: Report Reviewed (CT chest 12/13/2018 Impression: Moderate degree soft tissue hematoma to the right lateral pectoralis muscles. s/p stent grafting of the right axillary and cephalic veins. Advanced degenerative changes of the glenohumeral joint. Mild to moderately degenerative changes of the acromioclavicular joint. mild to moderate degree central lobular emphysematous changes in the background of borderline pulmonary congestion. Read Kevin Le MD) Ultrasound: Report Reviewed (RUE soft tissue US 12/13/2018 COMPARISON: 2018 On the previous sonogram in the right axilla a 6.3 x 1.7 oval-shaped isoechoic structure was noted suggestive of a hematoma. On today's study this structure is decreased in size measuring 3.7 x 1.2 x 2.4 cm IMPRESSION: Decreased size of previously noted hematoma right axilla. Recommend clinical correlation and additional imaging as clinically warranted Reported By: Philipp Thompson MD 12/13/18 1035) Problem List - Problems (1) Anemia Assessment/Plan: trend H/H epogen as per renal Code(s): D64.9 - ANEMIA, UNSPECIFIED (2) Chronic back pain Assessment/Plan: Tylenol PRN mild pain tramadol PRN moderate pain morphine PRN severe pain neurotin 300mg TID Lidoderm patch daily Code(s): M54.9 - DORSALGIA, UNSPECIFIED; G89.29 - OTHER CHRONIC PAIN Qualifiers: Back pain location: low back pain Back pain laterality: unspecified Sciatica presence: without sciatica Qualified Code(s): M54.5 - Low back pain; G89.29 - Other chronic pain (3) DVT prophylaxis Assessment/Plan: hold eliquis in light of hematoma Venodynes for DVT PPX Ambulate as tolerated Code(s): [id number] - (4) ESRD (end stage renal disease) on dialysis Assessment/Plan: Pt followed by renal benadryl PRN pruritis Code(s): N18.6 - END STAGE RENAL DISEASE; Z99.2 - DEPENDENCE ON RENAL DIALYSIS (5) Anxiety and depression Assessment/Plan: cymbalta 60mg daily Ativan 1mg PRN anxiety melatonin 5mg qhs Code(s): F41.8 - OTHER SPECIFIED ANXIETY DISORDERS (6) Hypertension Assessment/Plan: continue Toprol XL 25mg daily norvasc 10mg daily renal/cardiac diet Code(s): I10 - ESSENTIAL (PRIMARY) HYPERTENSION Qualifiers: Hypertension type: essential hypertension Qualified Code(s): I10 - Essential (primary) hypertension (7) Asthma Code(s): J45.909 - UNSPECIFIED ASTHMA, UNCOMPLICATED (8) Hematoma of axilla Assessment/Plan: vasc surg consult for possible evacuation trend H/H monitor size hold Eliquis Code(s): S40.029A - CONTUSION OF UNSPECIFIED UPPER ARM, INITIAL ENCOUNTER (9) Asthma Assessment/Plan: continue symbicort BID PRN albuterol Code(s): J45.909 - UNSPECIFIED ASTHMA, UNCOMPLICATED Qualifiers: Asthma severity: unspecified severity Asthma persistence: unspecified Asthma complication type: unspecified Qualified Code(s): J45.909 - Unspecified asthma, uncomplicated Assessment/Plan Code status: Full code Visit type - Emergency Visit Emergency Visit: Yes ED Registration Date: 12/13/18 Care time: The patient presented to the Emergency Department on the above date and was hospitalized for further evaluation of their emergent condition. - New Patient This patient is new to me today: Yes Date on this admission: 12/13/18 - Critical Care Critical Care patient: No
[2018-12-13] MEDS ORDERED: METOCLOPRAMIDE HCL INJECTION 10 MG/2 ML VIAL IVPUSH PRN (17:47)
[2018-12-13] MEDS: MORPHINE SULFATE 2 MG/ML VIAL IVPUSH PRN (20:20)
[2018-12-13] MEDS ORDERED: LORazepam 0.5 MG TABLET ONE (20:55)
[2018-12-13] MEDS: LORazepam 1 MG TABLET PO PRN (20:58)
[2018-12-13] MEDS ORDERED: ATORVASTATIN CA 20 MG TABLET (FP) ONE (21:15)
[2018-12-13] MEDS ORDERED: GABAPENTIN 100 MG CAPSULE (FP) ONE (21:15)
[2018-12-13] MEDS ORDERED: SENNOSIDES 8.6MG TABLET (FP) PO ONE (21:15)
[2018-12-13] MEDS ORDERED: APIXABAN 2.5 MG TABLET PO SCH (22:00)
[2018-12-13] MEDS: LIDOCAINE PATCH REMOVAL MC SCH (23:55)
[2018-12-13] MEDS: SENNOSIDES 8.6MG TABLET (FP) PO SCH (23:55)
[2018-12-13] MEDS: MELATONIN 5 MG TABLETS PO SCH (23:55)
[2018-12-13] MEDS: ATORVASTATIN CA 20 MG TABLET (FP) PO SCH (23:55)
[2018-12-13] MEDS: GABAPENTIN 300 MG CAPSULE (FP) PO SCH (23:55)
[2018-12-13] MEDS: BUDESONIDE/FORMETEROL FUMARATE 80/4.5 mcg INHALER IH SCH (23:55)
[2018-12-14] MEDS ORDERED: traMADol HCL 50 MG TABLET ONE (00:04)
[2018-12-14] MEDS ORDERED: ACETAMINOPHEN 325 MG TABLET (FP) ONE (00:04)
[2018-12-14] MEDS: traMADol HCL 50 MG TABLET PO PRN ×2 (00:10→21:12)
[2018-12-14] MEDS ORDERED: MORPHINE SULFATE 2 MG/ML VIAL ONE ×2 (04:33→15:14)
[2018-12-14] MEDS ORDERED: GABAPENTIN 100 MG CAPSULE (FP) ONE (05:43)
[2018-12-14] MEDS: GABAPENTIN 300 MG CAPSULE (FP) PO SCH ×3 (06:45→21:14)
[2018-12-14 07:19] LABS: HEMATOCRIT 22.8 % (32.4-45.2); HEMOGLOBIN 7.7 GM/dL (10.7-15.3); MCH 31.2 pg (25.7-33.7); MCHC 33.8 g/dl (32.0-36.0); MEAN CELL VOLUME 92.4 fl (80-96); MEAN PLT VOLUME 7.9 fl (7.5-11.1); PLATELET COUNT 350 K/MM3 (134-434); RBC 2.47 M/mm3 (3.60-5.2); WHITE BLOOD COUNT 9.9 K/mm3 (4.0-10.0)
[2018-12-14 07:33] LABS: INR 1.19 (0.83-1.09); PROTHROMBIN TIME (PATIENT) 14.1 SEC (9.7-13.0)
[2018-12-14 07:36] LABS: ACTIVATED PTT 34.9 SECONDS (25.2-36.5)
[2018-12-14 07:39] LABS: ALBUMIN 2.9 g/dl (3.4-5.0); BILIRUBIN,TOTAL 0.6 mg/dL (0.2-1); BLOOD UREA NITROGEN 67.8 mg/dL (7-18); CALCIUM 8.6 mg/dL (8.5-10.1); CREATININE 6.2 mg/dL (0.55-1.3); MAGNESIUM 2.3 mg/dL (1.8-2.4); N-TERMINAL BNP 12384.4 pg/ml (5-125); PHOSPHOROUS 7.6 mg/dL (2.5-4.9); POTASSIUM 4.1 mmol/L (3.5-5.1); TOT PROT 5.8 g/dl (6.4-8.2)
[2018-12-14] MEDS ORDERED: SODIUM CHLORIDE 250 ML IV PRN (09:27)
[2018-12-14] MEDS: BUDESONIDE/FORMETEROL FUMARATE 80/4.5 mcg INHALER IH SCH ×2 (09:50→21:16)
[2018-12-14] MEDS: AMIODARONE HCL 200 MG TABLET (FP) PO SCH (09:50)
[2018-12-14] MEDS: LIDOCAINE 5% TOPICAL PATCH TP SCH (09:50)
[2018-12-14] MEDS: amLODIPine BESYLATE 10 MG TABLET (FP) PO SCH (09:50)
[2018-12-14] MEDS: metoPROLOL SUCCINATE 25 MG TAB.SR.24H (FP) PO SCH (09:50)
[2018-12-14] MEDS ORDERED: DULoxetine HCL 60 MG CAPSULE.DR PO SCH (10:00)
--- NOTE | 2018-12-14 12:53 | PN ---
Progress Note, Physician History of Present Illness: Pt seen and examined at bedside. She signed off HD yesterday after about an hour. - Current Medication List Current Medications: Active Medications Acetaminophen (Tylenol -) 650 mg PO Q4H PRN PRN Reason: PAIN LEVEL 1 - 3 Last Admin: 12/14/18 00:10 Dose: 650 mg Albuterol Sulfate (Ventolin Hfa Inhaler -) 1 - 2 puff IH Q4H PRN PRN Reason: SHORT OF BREATH/WHEEZING Amiodarone HCl (Cordarone -) 200 mg PO DAILY [facility] Last Admin: 12/14/18 09:50 Dose: 200 mg Amlodipine Besylate (Norvasc -) 10 mg PO DAILY [facility] Last Admin: 12/14/18 09:50 Dose: 10 mg Apixaban (Eliquis -) 2.5 mg PO BID [facility] Atorvastatin Calcium (Lipitor -) 20 mg PO HS [facility] Last Admin: 12/13/18 23:55 Dose: 20 mg Budesonide/Formoterol Fumarate (Symbicort 80/4.5mcg -) 2 puff IH BID [facility] Last Admin: 12/14/18 09:50 Dose: 2 puff Diphenhydramine HCl (Benadryl -) 25 mg PO Q6H PRN PRN Reason: FOR ITCHING Docusate Sodium (Colace -) 100 mg PO Q8H PRN PRN Reason: CONSTIPATION Duloxetine HCl (Cymbalta -) 60 mg PO DAILY [facility] Last Admin: 12/14/18 09:50 Dose: 60 mg Gabapentin (Neurontin -) 300 mg PO TID [facility] Last Admin: 12/14/18 06:45 Dose: 300 mg Sodium Chloride (Normal Saline -) 250 mls @ 3,000 mls/hr IV PRN PRN PRN Reason: Hypotension during Dialysis Stop: 12/14/18 15:43 Lidocaine (Lidoderm Patch -) 1 patch TP DAILY [facility] Last Admin: 12/14/18 09:50 Dose: 1 patch Lorazepam (Ativan -) 1 mg PO DAILY PRN PRN Reason: ANXIETY Last Admin: 12/13/18 20:58 Dose: 1 mg Melatonin (Melatonin) 5 mg PO HS [facility] Last Admin: 12/13/18 23:55 Dose: 5 mg Metoclopramide HCl (Reglan Injection -) 10 mg IVPUSH Q8H PRN PRN Reason: NAUSEA AND/OR VOMITING Metoprolol Succinate (Toprol Xl -) 25 mg PO DAILY [facility] Last Admin: 12/14/18 09:50 Dose: 25 mg Miscellaneous (Lidoderm Patch Removal) 1 each MC DAILY@2200 [facility] Last Admin: 12/13/18 23:55 Dose: Not Given Morphine Sulfate (Morphine Sulfate) 2 mg IVPUSH Q6H PRN PRN Reason: PAIN LEVEL 7 - 10 Last Admin: 12/13/18 20:20 Dose: 2 mg Senna (Senna -) 1 tab PO HS [facility] Last Admin: 12/13/18 23:55 Dose: 1 tab Tramadol HCl (Ultram -) 50 mg PO Q6H PRN PRN Reason: PAIN LEVEL 4 - 6 Last Admin: 12/14/18 00:10 Dose: 50 mg - Objective Vital Signs: Vital Signs Temperature 97.9 F 12/13/18 05:50 Pulse Rate 83 12/14/18 11:00 Respiratory Rate 18 12/14/18 07:05 Blood Pressure 140/81 12/14/18 11:00 O2 Sat by Pulse Oximetry (%) 94 L 12/14/18 11:00 Constitutional: Yes: Calm Eyes: Yes: Conjunctiva Clear HENT: Yes: Atraumatic Cardiovascular: Yes: S1, S2 Gastrointestinal: Yes: Soft Genitourinary: Yes: WNL Musculoskeletal: Yes: Back Pain Edema: No Neurological: Yes: Oriented Psychiatric: Yes: Oriented Labs: CBC, BMP 12/14/18 06:10 12/14/18 06:10 INR, PTT INR 1.19 (0.83-1.09) H 12/14/18 06:10 Problem List - Problems (1) COPD exacerbation Code(s): J44.1 - CHRONIC OBSTRUCTIVE PULMONARY DISEASE W (ACUTE) EXACERBATION (2) ESRD (end stage renal disease) on dialysis Code(s): N18.6 - END STAGE RENAL DISEASE; Z99.2 - DEPENDENCE ON RENAL DIALYSIS Assessment/Plan Current Medications Generic Name Dose Route Start Last Admin Trade Name Freq PRN Reason Stop Dose Admin Acetaminophen 650 mg 12/13/18 16:56 12/14/18 00:10 Tylenol - PO 650 mg Q4H PRN Administration PAIN LEVEL 1 - 3 Albuterol Sulfate 1 - 2 puff 12/13/18 16:25 Ventolin Hfa Inhaler - IH Q4H PRN SHORT OF BREATH/WHEEZING Amiodarone HCl 200 mg 12/14/18 10:00 12/14/18 09:50 Cordarone - PO 200 mg DAILY JACKY Administration Amlodipine Besylate 10 mg 12/14/18 10:00 12/14/18 09:50 Norvasc - PO 10 mg DAILY JACKY Administration Apixaban 2.5 mg 12/13/18 22:00 Eliquis - PO BID JACKY Atorvastatin Calcium 20 mg 12/13/18 22:00 12/13/18 23:55 Lipitor - PO 20 mg HS JACKY Administration Budesonide/Formoterol Fumarate 2 puff 12/13/18 22:00 12/14/18 09:50 Symbicort 80/4.5mcg - IH 2 puff BID JACKY Administration Diphenhydramine HCl 25 mg 12/13/18 16:56 Benadryl - PO Q6H PRN FOR ITCHING Docusate Sodium 100 mg 12/13/18 16:56 Colace - PO Q8H PRN CONSTIPATION Duloxetine HCl 60 mg 12/14/18 10:00 12/14/18 09:50 Cymbalta - PO 60 mg DAILY JACKY Administration Gabapentin 300 mg 12/13/18 22:00 12/14/18 06:45 Neurontin - PO 300 mg TID JACKY Administration Sodium Chloride 250 mls @ 3,000 mls/hr 12/13/18 15:43 Normal Saline - IV 12/14/18 15:43 PRN PRN Hypotension during Dialysis Lidocaine 1 patch 12/14/18 10:00 12/14/18 09:50 Lidoderm Patch - TP 1 patch DAILY JACKY Administration Lorazepam 1 mg 12/13/18 16:25 12/13/18 20:58 Ativan - PO 1 mg DAILY PRN Administration ANXIETY Melatonin 5 mg 12/13/18 22:00 12/13/18 23:55 Melatonin PO 5 mg HS JACKY Administration Metoclopramide HCl 10 mg 12/13/18 17:47 Reglan Injection - IVPUSH Q8H PRN NAUSEA AND/OR VOMITING Metoprolol Succinate 25 mg 12/14/18 10:00 12/14/18 09:50 Toprol Xl - PO 25 mg DAILY JACKY Administration Miscellaneous 1 each 12/13/18 22:00 12/13/18 23:55 Lidoderm Patch Removal MC Not Given DAILY@2200 [facility] Morphine Sulfate 2 mg 12/13/18 16:54 12/13/18 20:20 Morphine Sulfate IVPUSH 2 mg Q6H PRN Administration PAIN LEVEL 7 - 10 Senna 1 tab 12/13/18 22:00 12/13/18 23:55 Senna - PO 1 tab HS JACKY Administration Tramadol HCl 50 mg 12/13/18 16:56 12/14/18 00:10 Ultram - PO 50 mg Q6H PRN Administration PAIN LEVEL 4 - 6 Impression 1. ESRD 2. non compliance with HD schedule 3. chronic back pain 4. anemia 5. anxiety 6. hx of nsaid use 7. chf diastolic 8. possible complex renal cyst 9. HLD 10. nephrolithiasis 11. 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 hematoma of right axilla Plan - HD tomorrow - discussed compliance - vascular eval - renal diet - smoking cessation
[2018-12-14] MEDS: MORPHINE SULFATE 2 MG/ML VIAL IVPUSH PRN ×2 (15:28→21:27)
--- NOTE | 2018-12-14 16:05 | PN ---
Progress Note, Physician Chief Complaint: right arm pain History of Present Illness: Patient is a 63 year old female with a past medical history of asthma, ESRD on HD, chronic LBP, anxiety, tobacco dependence, HTN, afib (on amiodarone and eliquis) presents to ED after missing two HD sessions. Ms. Matamoros reports missing HD sessions in the past, but she has never felt symptomatic as she does now. She reports Lower back pain, generalized pruritis, nausea, paresthesias to fingers, increased anxiety and chest discomfort. Additionally, she endorses increased pain to right upper arm which began after her HD session on 12/09. Workup revealed 6.3 x 1.7cm hematoma with patent AV fistula. pt continued her eliquis (last dose 12/12 AM), and decided to proceed to ED for evaluation. Pt denied trauma, fall, or injury. her eliquis has been on hold. - Current Medication List Current Medications: Active Medications Acetaminophen (Tylenol -) 650 mg PO Q4H PRN PRN Reason: PAIN LEVEL 1 - 3 Last Admin: 12/14/18 00:10 Dose: 650 mg Albuterol Sulfate (Ventolin Hfa Inhaler -) 1 - 2 puff IH Q4H PRN PRN Reason: SHORT OF BREATH/WHEEZING Amiodarone HCl (Cordarone -) 200 mg PO DAILY [facility] Last Admin: 12/14/18 09:50 Dose: 200 mg Amlodipine Besylate (Norvasc -) 10 mg PO DAILY [facility] Last Admin: 12/14/18 09:50 Dose: 10 mg Apixaban (Eliquis -) 2.5 mg PO BID [facility] Atorvastatin Calcium (Lipitor -) 20 mg PO HS [facility] Last Admin: 12/13/18 23:55 Dose: 20 mg Budesonide/Formoterol Fumarate (Symbicort 80/4.5mcg -) 2 puff IH BID [facility] Last Admin: 12/14/18 09:50 Dose: 2 puff Diphenhydramine HCl (Benadryl -) 25 mg PO Q6H PRN PRN Reason: FOR ITCHING Docusate Sodium (Colace -) 100 mg PO Q8H PRN PRN Reason: CONSTIPATION Duloxetine HCl (Cymbalta -) 60 mg PO DAILY [facility] Last Admin: 12/14/18 09:50 Dose: 60 mg Epoetin Zachery (Epogen -) 10,000 unit IVPUSH ONCE ONE Stop: 12/15/18 12:54 Gabapentin (Neurontin -) 300 mg PO TID [facility] Last Admin: 12/14/18 14:41 Dose: 300 mg Sodium Chloride (Normal Saline -) 250 mls @ 3,000 mls/hr IV PRN PRN PRN Reason: Hypotension during Dialysis Stop: 12/15/18 12:53 Lidocaine (Lidoderm Patch -) 1 patch TP DAILY [facility] Last Admin: 12/14/18 09:50 Dose: 1 patch Lorazepam (Ativan -) 1 mg PO DAILY PRN PRN Reason: ANXIETY Last Admin: 12/13/18 20:58 Dose: 1 mg Melatonin (Melatonin) 5 mg PO [facility] Last Admin: 12/13/18 23:55 Dose: 5 mg Metoclopramide HCl (Reglan Injection -) 10 mg IVPUSH Q8H PRN PRN Reason: NAUSEA AND/OR VOMITING Metoprolol Succinate (Toprol Xl -) 25 mg PO DAILY [facility] Last Admin: 12/14/18 09:50 Dose: 25 mg Miscellaneous (Lidoderm Patch Removal) 1 each MC DAILY@2200 [facility] Last Admin: 12/13/18 23:55 Dose: Not Given Morphine Sulfate (Morphine Sulfate) 2 mg IVPUSH Q6H PRN PRN Reason: PAIN LEVEL 7 - 10 Last Admin: 12/14/18 15:28 Dose: 2 mg Senna (Senna -) 1 tab PO [facility] Last Admin: 12/13/18 23:55 Dose: 1 tab Tramadol HCl (Ultram -) 50 mg PO Q6H PRN PRN Reason: PAIN LEVEL 4 - 6 Last Admin: 12/14/18 00:10 Dose: 50 mg - Objective Vital Signs: Vital Signs Temperature 97.9 F 12/13/18 05:50 Pulse Rate 83 12/14/18 11:00 Respiratory Rate 18 12/14/18 07:05 Blood Pressure 140/81 12/14/18 11:00 O2 Sat by Pulse Oximetry (%) 94 L 12/14/18 11:00 Constitutional: Yes: Calm Eyes: Yes: WNL HENT: Yes: Atraumatic Neck: Yes: Supple Cardiovascular: Yes: Regular Rate and Rhythm Respiratory: Yes: Diminished Gastrointestinal: Yes: Normal Bowel Sounds, Soft ...Rectal Exam: Yes: Deferred Genitourinary: Yes: WNL Breast(s): Yes: Right (large bruise of right breast) Musculoskeletal: Yes: WNL, Other Extremities: Yes: Other (left posterior upper arm with a purple large bruise. right arm large hematoma that extends to anterior aspect of arm) Edema: RUE: Trace Integumentary: Yes: Bruising Wound/Incision: Yes: Open to air Neurological: Yes: Alert, Oriented Labs: CBC, BMP 12/14/18 06:10 12/14/18 06:10 INR, PTT INR 1.19 (0.83-1.09) H 12/14/18 06:10 Problem List - Problems (1) Hematoma of axilla Assessment/Plan: decreased size of hematoma per imaging start on heparin drip for afib. pending surgery evaluation. monitor Code(s): S40.029A - CONTUSION OF UNSPECIFIED UPPER ARM, INITIAL ENCOUNTER (2) Atrial fibrillation Assessment/Plan: on amiodorone and eliquis. eliquis on hold since admission. start on heparin gtt cardiology eval. Code(s): I48.91 - UNSPECIFIED ATRIAL FIBRILLATION Qualifiers: Atrial fibrillation type: paroxysmal Qualified Code(s): I48.0 - Paroxysmal atrial fibrillation (3) Acute on chronic kidney failure Assessment/Plan: for dialysis per renal. Code(s): N17.9 - ACUTE KIDNEY FAILURE, UNSPECIFIED; N18.9 - CHRONIC KIDNEY DISEASE, UNSPECIFIED Qualifiers: Acute renal failure type: unspecified Chronic kidney disease stage: stage 4 (severe) Qualified Code(s): N17.9 - Acute kidney failure, unspecified; N18.4 - Chronic kidney disease, stage 4 (severe) (4) Chronic kidney disease (CKD) Assessment/Plan: for dialysis per renal. right arm fistula Pt followed by renal benadryl PRN pruritis Code(s): N18.9 - CHRONIC KIDNEY DISEASE, UNSPECIFIED Qualifiers: Chronic kidney disease stage: stage 4 (severe) Qualified Code(s): N18.4 - Chronic kidney disease, stage 4 (severe) (5) CKD (chronic kidney disease) stage 4, GFR 15-29 ml/min Code(s): N18.4 - CHRONIC KIDNEY DISEASE, STAGE 4 (SEVERE) (6) Arm pain, right Assessment/Plan: morphine prn Code(s): M79.601 - PAIN IN RIGHT ARM (7) Hypertension Assessment/Plan: continue toprol, norvasc 10 Code(s): I10 - ESSENTIAL (PRIMARY) HYPERTENSION Qualifiers: Hypertension type: essential hypertension Qualified Code(s): I10 - Essential (primary) hypertension (8) Asthma Assessment/Plan: continue bronchodilators Code(s): J45.909 - UNSPECIFIED ASTHMA, UNCOMPLICATED (9) DVT prophylaxis Code(s): QZC3659 - Visit type - Emergency Visit Emergency Visit: Yes ED Registration Date: 12/13/18 Care time: The patient presented to the Emergency Department on the above date and was hospitalized for further evaluation of their emergent condition. - New Patient This patient is new to me today: No - Critical Care Critical Care patient: No - Discharge Referral Referred to [facility] Med [facility].C.: No
[2018-12-14 18:21] VITALS: BMI 22.1
[2018-12-14] MEDS ORDERED: HEPARIN NA (PORCINE) 5,000 UNITS/ML 1ML VIAL IVPUSH PRN ×2 (19:08)
[2018-12-14] MEDS: SENNOSIDES 8.6MG TABLET (FP) PO SCH (21:12)
[2018-12-14] MEDS: ATORVASTATIN CA 20 MG TABLET (FP) PO SCH (21:12)
[2018-12-14] MEDS: MELATONIN 5 MG TABLETS PO SCH (21:12)
[2018-12-14] MEDS: LIDOCAINE PATCH REMOVAL MC SCH (21:17)
[2018-12-14] MEDS: HEPARIN INFUSION - 25,000 UNITS/500 ML INFUS.BAG IVPB SCH (21:42)
[2018-12-14] MEDS ORDERED: PT OWN MED DRAWER 7, Y5N ONE (23:12)
[2018-12-15] MEDS: LORazepam 1 MG TABLET PO PRN (01:14)
[2018-12-15] MEDS: MORPHINE SULFATE 2 MG/ML VIAL IVPUSH PRN ×2 (06:54→16:27)
[2018-12-15] MEDS: GABAPENTIN 300 MG CAPSULE (FP) PO SCH ×3 (06:54→21:43)
--- NOTE | 2018-12-15 09:48 | CONSULT ---
<Mireille Jack - Last Filed: 12/15/18 10:06> - Consultation REQUESTING PROVIDER: CONSULT REQUEST: We have been asked to surgically evaluate this patient for right UE hematoma in HD patient with right UE AVG. PCP:Coreen Davis NP HISTORY OF PRESENT ILLNESS: Patient is a 63 year old female with a past medical history of asthma, ESRD on HD, chronic LBP, anxiety, tobacco dependence, HTN, afib (on amiodarone and eliquis) presented to ED after missing two HD sessions. Ms. Matamoros reports missing HD sessions in the past, but she has never felt symptomatic before. She presented c/o Lower back pain, generalized pruritis, nausea, paresthesias to fingers, increased anxiety and chest discomfort. Additionally, she endorses increased pain to right upper arm which began after her HD session on 12/09. A pervious workup revealed 6.3 x 1.7cm hematoma with patent AV fistula. pt continued her eliquis (last dose 12/12 AM). Her last HD session inhouse on 12/13 was stopped after 1.5 hours 2/2 purritis. She is scheduled for HD today. Pt denied trauma, fall, or injury. her eliquis has been on hold. - Past Medical History [employer]: Yes: Peripheral Neuropathy Cardiovascular: Yes: HTN, Hyperlipdemia Pulmonary: Yes: Asthma, Bronchitis, COPD, Pneumonia Gastrointestinal: Yes: Gastritis Renal/: Yes: Renal Inusuff, Hemodialysis Reproductive: Yes: Postmenopausal ...LMP: 07/25/12 Heme/Onc: Yes: Anemia, Other (history ovarian cancer) Infectious Disease: Yes: MRSA Psych: Yes: Anxiety, Depression Musculoskeletal: Yes: Chronic low back pain Endocrine: Yes: Hyperthyroidism - Past Surgical History Past Surgical History: Yes: AV Fistula/Graft, Joint Replacement (hip replacement ) - Smoking History Smoking history: Current every day smoker Have you smoked in the past 12 months: Yes Aproximately how many cigarettes per day: 3 If you are a former smoker, when did you quit?: refused booklet 07/21/14 - Alcohol/Substance Use Hx Alcohol Use: No History of Substance Use: reports: Marijuana - Social History Usual Living Arrangement: Yes: With Child ADL: Independent Occupation: not working, SSI History of Recent Travel: No Home Medications Medication Instructions Recorded Amlodipine Besylate [Norvasc -] 10 mg PO DAILY 08/09/18 Apixaban [Eliquis] 2.5 mg PO BID 08/09/18 Atorvastatin Ca [Lipitor] 20 mg PO HS 08/09/18 Duloxetine HCl [Cymbalta -] 60 mg PO DAILY 08/09/18 Fluticasone/Salmeterol [Advair 1 each IH BID 08/09/18 250-50 Diskus] Lorazepam [Ativan] 1 mg PO DAILY 08/09/18 Melatonin 5 mg PO HS 08/09/18 Sennosides [Senna] 8.6 mg PO HS 08/09/18 Amiodarone HCl [Cordarone -] 200 mg PO DAILY #30 tablet 08/20/18 Gabapentin [Neurontin -] 300 mg PO TID #30 capsule 08/20/18 Metoprolol Succinate [Toprol XL -] 25 mg PO DAILY #30 tab.sr.24h 08/20/18 Tramadol HCl 50 mg PO Q6H #12 tablet MDD 200mg 11/03/18 Albuterol Sulfate Inhaler - 1 - 2 inh PO Q4H PRN #1 inhaler 11/19/18 [Ventolin HFA Inhaler -] LORazepam [Ativan] 1 mg PO BID #14 tablet MDD 2 11/19/18 Lidocaine 5% Patch [Lidoderm -] 1 patch TP DAILY #7 patch 12/11/18 Naproxen 500 mg PO BID PRN #20 tablet 12/11/18 Allergies Allergy/AdvReac Type Severity Reaction Status Date / Time levofloxacin [From Levaquin] Allergy Mild Itching Verified 12/13/18 06:27 REVIEW OF SYSTEMS: Constitutional: No: Chills, Fever, Malaise HEENTM: No: Symptoms Reported Respiratory: No: Symptoms reported Cardiac (ROS): No: Symptoms Reported ABD/GI: No: Symptoms Reported Musculoskeletal: Yes: Symptoms Reported, See HPI, Muscle Pain (right upper arm) Integumentary: purritis Neurological: No: Symptoms reported All Other Systems: Reviewed and Negative PE: Constitutional: Yes: Calm, resting comfortably, rousable but sleepy HENT: Yes: Atraumatic Respiratory: unlabored resp on RA Breast(s): Yes: Right large bruise of right breast and chest wall extending in to axilla over flank to back. Musculoskeletal: Yes: WNL, Other Extremities: Yes: Other (left posterior upper arm with a purple large bruise. right shoulder- large tense area of ecchymosis over the anterior shoulder extending to upper arm and right chest. B/L UE compartments soft, supple with mild ttp over bruising sites. +2 radial pulse and good perfusion distally. right AVG with palpable thrill and no evidence of active bleeding. Full ROM of b /l hands and fingers with 5/5 plastic boat patcher strength.) Edema: RUE: Trace Integumentary: Yes: Bruising Neurological: Yes: Alert, Oriented Vital Signs Temperature 97.4 F L 12/15/18 05:00 Pulse Rate 80 12/15/18 05:00 Respiratory Rate 18 12/15/18 05:00 Blood Pressure 112/56 L 12/15/18 05:00 O2 Sat by Pulse Oximetry (%) 96 12/15/18 07:00 Lab Results WBC 9.9 K/mm3 (4.0-10.0) 12/14/18 06:10 RBC 2.47 M/mm3 (3.60-5.2) L 12/14/18 06:10 Hgb 7.7 GM/dL (10.7-15.3) L 12/14/18 06:10 Hct 22.8 % (32.4-45.2) L 12/14/18 06:10 MCV 92.4 fl (80-96) 12/14/18 06:10 MCHC 33.8 g/dl (32.0-36.0) 12/14/18 06:10 RDW 17.0 % (11.6-15.6) H 12/14/18 06:10 Plt Count 350 K/MM3 (134-434) 12/14/18 06:10 Sodium 137 mmol/L (136-145) 12/14/18 06:10 Potassium 4.1 mmol/L (3.5-5.1) 12/14/18 06:10 Chloride 101 mmol/L (98-107) 12/14/18 06:10 Carbon Dioxide 24 mmol/L (21-32) 12/14/18 06:10 Anion Gap 11 MMOL/L (8-16) 12/14/18 06:10 BUN 67.8 mg/dL (7-18) H 12/14/18 06:10 Creatinine 6.2 mg/dL (0.55-1.3) H 12/14/18 06:10 Random Glucose 93 mg/dL (74-106) 12/14/18 06:10 Calcium 8.6 mg/dL (8.5-10.1) 12/14/18 06:10 Blood Type A POSITIVE 12/14/18 06:10 Antibody Screen Negative 12/14/18 06:10 INR 1.19 (0.83-1.09) H 12/14/18 06:10 Right extremity U/S 12/13/18 revealed Decrease in size of axilla hematoma compared to study on 12/11 - currently measures 3.7 x 1.2 x 2.4 Problem List - Problems (1) Hematoma of axilla Assessment/Plan: Patient with hematoma of right axilla and right UE resolving with no evidence of AVG disfunction. Patent right AVG. 1) Continue HD via right AVG as scheduled 2) warm compress to right UE as tolerated 3) Encourage ROM at all UE joints. 4) follow up with Dr Fry as outpatient. Evaluation and plan discussed with Dr Fry Code(s): S40.029A - CONTUSION OF UNSPECIFIED UPPER ARM, INITIAL ENCOUNTER <Jr Fry - Last Filed: 12/15/18 19:52> - Consultation REQUESTING PROVIDER: CONSULT REQUEST: We have been asked to surgically evaluate this patient for ( specify). PCP:Coreen Davis NP HISTORY OF PRESENT ILLNESS: PMHx: PSHx: Home Medications Medication Instructions Recorded Amlodipine Besylate [Norvasc -] 10 mg PO DAILY 08/09/18 Apixaban [Eliquis] 2.5 mg PO BID 08/09/18 Atorvastatin Ca [Lipitor] 20 mg PO HS 08/09/18 Duloxetine HCl [Cymbalta -] 60 mg PO DAILY 08/09/18 Fluticasone/Salmeterol [Advair 1 each IH BID 08/09/18 250-50 Diskus] Lorazepam [Ativan] 1 mg PO DAILY 08/09/18 Melatonin 5 mg PO HS 08/09/18 Sennosides [Senna] 8.6 mg PO HS 08/09/18 Amiodarone HCl [Cordarone -] 200 mg PO DAILY #30 tablet 08/20/18 Gabapentin [Neurontin -] 300 mg PO TID #30 capsule 08/20/18 Metoprolol Succinate [Toprol XL -] 25 mg PO DAILY #30 tab.sr.24h 08/20/18 Tramadol HCl 50 mg PO Q6H #12 tablet MDD 200mg 11/03/18 Albuterol Sulfate Inhaler - 1 - 2 inh PO Q4H PRN #1 inhaler 11/19/18 [Ventolin HFA Inhaler -] LORazepam [Ativan] 1 mg PO BID #14 tablet MDD 2 11/19/18 Lidocaine 5% Patch [Lidoderm -] 1 patch TP DAILY #7 patch 12/11/18 Naproxen 500 mg PO BID PRN #20 tablet 12/11/18 Allergies Allergy/AdvReac Type Severity Reaction Status Date / Time levofloxacin [From Levaquin] Allergy Mild Itching Verified 12/13/18 06:27 REVIEW OF SYSTEMS: CONSTITUTIONAL: Absent: fever, chills, diaphoresis, generalized weakness, malaise, loss of appetite, weight change CARDIOVASCULAR: Absent: chest pain, syncope, palpitations, irregular heart rate, lightheadedness , peripheral edema RESPIRATORY: Absent: cough, shortness of breath, dyspnea with exertion, wheezing, stridor, hemoptysis GASTROINTESTINAL: Absent: abdominal pain, abdominal distension, nausea, vomiting, diarrhea, constipation, melena, hematochezia GENITOURINARY: Absent: dysuria, frequency, urgency, hesitancy, hematuria, flank pain, genital pain MUSCULOSKELETAL: Absent: myalgia, arthralgia, joint swelling, back pain, neck pain SKIN: Absent: rash, itching, pallor HEMATOLOGIC/IMMUNOLOGIC: Absent: easy bleeding, easy bruising, lymphadenopathy NEUROLOGIC: Absent: headache, focal weakness, paresthesias, dizziness, unsteady gait, seizure, mental status changes, bladder or bowel incontinence PSYCHIATRIC: Absent: anxiety, depression, suicidal or homicidal ideation, hallucinations. PHYSICAL EXAM: GENERAL: Awake, alert, and fully oriented, in no acute distress. HEAD: Normal with no signs of trauma. EYES: PERRL, sclera anicteric, conjunctiva clear. NECK: Normal ROM, supple without lymphadenopathy, JVD, or masses. LUNGS: Clear to auscultation bilat anteriorly. No wheezes, and no crackles. No accessory muscle use. HEART: Regular rate and rhythm. No murmurs ABDOMEN: Soft, nontender, not distended, normoactive bowel sounds, no guarding, no rebound, no masses. No organomegaly. MUSCULOSKELETAL: Normal ROM at all joints. No bony deformities or tenderness. No CVA tenderness. UPPER EXTREMITIES: 2+ pulses, warm, well-perfused. No cyanosis. Cap refill <2 seconds. No peripheral edema. LOWER EXTREMITIES: 2+ pulses, warm, well-perfused. No calf tenderness. No peripheral edema. NEUROLOGICAL: Normal speech, gait not observed. PSYCH: Cooperative. Good eye contact. Appropriate mood and affect. SKIN: Warm, dry, normal turgor, no rashes or lesions noted. Vital Signs Temperature 97.6 F 12/15/18 13:00 Pulse Rate 74 12/15/18 14:46 Respiratory Rate 18 12/15/18 14:46 Blood Pressure 140/62 12/15/18 14:46 O2 Sat by Pulse Oximetry (%) 96 12/15/18 07:00 Lab Results WBC 10.1 K/mm3 (4.0-10.0) H 12/15/18 11:20 RBC 2.41 M/mm3 (3.60-5.2) L 12/15/18 11:20 Hgb 7.3 GM/dL (10.7-15.3) L 12/15/18 11:20 Hct 22.6 % (32.4-45.2) L 12/15/18 11:20 MCV 93.9 fl (80-96) 12/15/18 11:20 MCHC 32.4 g/dl (32.0-36.0) 12/15/18 11:20 RDW 17.1 % (11.6-15.6) H 12/15/18 11:20 Plt Count 396 K/MM3 (134-434) 12/15/18 11:20 Sodium 137 mmol/L (136-145) 12/14/18 06:10 Potassium 4.1 mmol/L (3.5-5.1) 12/14/18 06:10 Chloride 101 mmol/L (98-107) 12/14/18 06:10 Carbon Dioxide 24 mmol/L (21-32) 12/14/18 06:10 Anion Gap 11 MMOL/L (8-16) 12/14/18 06:10 BUN 67.8 mg/dL (7-18) H 12/14/18 06:10 Creatinine 6.2 mg/dL (0.55-1.3) H 12/14/18 06:10 Random Glucose 93 mg/dL (74-106) 12/14/18 06:10 Calcium 8.6 mg/dL (8.5-10.1) 12/14/18 06:10 Blood Type A POSITIVE 12/14/18 06:10 Antibody Screen Negative 12/14/18 06:10 INR 1.12 (0.83-1.09) H 12/15/18 11:20 This patient has been seen in at least 3 separate hospital settings in the past week for a hematoma of her dialysis arm. She was evaluated in the ER here 1 week ago and discharged. A sonogram showed a hematoma of the axilla and chest wall without active flow. She then was admitted at [facility] and work- up with ultrasound and CT showed the hematoma without evidence of active hemorrhage. She was discharged and instructed to have dialysis at her regular appointment. She is now admitted a second time with the same complaints. Ultrasound documents a decrease in size of the hematoma. Her Hgb has dropped since last week without evidence for additional bleeding. She is tender over the hematoma but there is no evidence for infection. There is no indication for surgical intervention. Ice packs and non-narcotic analgesia is recommended.
[2018-12-15] MEDS ORDERED: EPOETIN ALFA 10,000 UNIT/1 ML VIAL IVPUSH ONE (10:00)
[2018-12-15 12:08] LABS: HEMATOCRIT 22.6 % (32.4-45.2); HEMOGLOBIN 7.3 GM/dL (10.7-15.3); MCH 30.4 pg (25.7-33.7); MCHC 32.4 g/dl (32.0-36.0); MEAN CELL VOLUME 93.9 fl (80-96); MEAN PLT VOLUME 7.6 fl (7.5-11.1); PLATELET COUNT 396 K/MM3 (134-434); RBC 2.41 M/mm3 (3.60-5.2); RDW 17.1 % (11.6-15.6); WHITE BLOOD COUNT 10.1 K/mm3 (4.0-10.0)
--- NOTE | 2018-12-15 12:08 | CON.CARD ---
Consult Consult Specialty:: Cardiology Referred by:: Hospitalist Reason for Consultation:: Cardiac evaluation - History of Present Illness Chief Complaint: Right pectoralis and right arm hematoma History of Present Illness: Patient is a 63 year old female with underlying history of bronchial asthma, ESRD on HD via AV fistula, HTN, hypercholesterolemia, COPD and PAF (on DOAC/ Eliquis) who presented with right axilla pain and bruising. She had reported increased bruising in the area which became larger and tender. She did not report any mechanical trauma or fall. She had skipped HD due to generalized malaise. Large hematoma involving right pectoralis and right arm was seen on CT scan. She is arousable but not able to give a full history. She did not complain of chest pain or SOB upon admission to ED. Currently Eliquis has been stopped and instead Heparin IV has been started. 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: Yes: Peripheral Neuropathy Cardio/Vascular: Yes: HTN, Hyperlipdemia Pulmonary: Yes: Asthma, Bronchitis, COPD, Pneumonia Gastrointestinal: Yes: Gastritis Renal/: Yes: Renal Inusuff, Hemodialysis ...LMP: 07/25/12 Infectious Disease: Yes: MRSA Psych: Yes: Anxiety, Depression Musculoskeletal: Yes: Chronic low back pain Endocrine: Yes: Hyperthyroidism - Past Surgical History Past Surgical History: Yes: AV Fistula/Graft, Joint Replacement (hip replacement ) - Alcohol/Substance Use Hx Alcohol Use: No History of Substance Use: reports: Marijuana - Smoking History Smoking history: Current every day smoker Have you smoked in the past 12 months: No Aproximately how many cigarettes per day: 3 If you are a former smoker, when did you quit?: refused booklet 07/21/14 - Social History Usual Living Arrangement: With Child ADL: Independent Occupation: not working, SSI History of Recent Travel: No Home Medications - Allergies Allergies/Adverse Reactions: Allergies Allergy/AdvReac Type Severity Reaction Status Date / Time levofloxacin [From Levaquin] Allergy Mild Itching Verified 12/13/18 06:27 - Home Medications Home Medications: Ambulatory Orders Amlodipine Besylate [Norvasc -] 10 mg PO DAILY 08/09/18 Apixaban [Eliquis] 2.5 mg PO BID 08/09/18 Atorvastatin Ca [Lipitor] 20 mg PO HS 08/09/18 Duloxetine HCl [Cymbalta -] 60 mg PO DAILY 08/09/18 Fluticasone/Salmeterol [Advair 250-50 Diskus] 1 each IH BID 08/09/18 Lorazepam [Ativan] 1 mg PO DAILY 08/09/18 Melatonin 5 mg PO HS 08/09/18 Sennosides [Senna] 8.6 mg PO HS 08/09/18 Amiodarone HCl [Cordarone -] 200 mg PO DAILY #30 tablet 08/20/18 Gabapentin [Neurontin -] 300 mg PO TID #30 capsule 08/20/18 Metoprolol Succinate [Toprol XL -] 25 mg PO DAILY #30 tab.sr.24h 08/20/18 Tramadol HCl 50 mg PO Q6H #12 tablet MDD 200mg 11/03/18 Albuterol Sulfate Inhaler - [Ventolin HFA Inhaler -] 1 - 2 inh PO Q4H PRN #1 inhaler 11/19/18 LORazepam [Ativan] 1 mg PO BID #14 tablet MDD 2 11/19/18 Lidocaine 5% Patch [Lidoderm -] 1 patch TP DAILY #7 patch 12/11/18 Naproxen 500 mg PO BID PRN #20 tablet 12/11/18 Family Disease History - Family Disease History Family Disease History: Other: Father (alive), Mother (alive), Sister (alive), Son (23 yo old - alive - healthy) Review of Systems Unable to obtain ROS, reason: Not able to obtain Vital Signs: Vital Signs Temperature 98.2 F 12/15/18 11:25 Pulse Rate 72 12/15/18 11:25 Respiratory Rate 18 12/15/18 11:25 Blood Pressure 102/66 12/15/18 11:25 O2 Sat by Pulse Oximetry (%) 96 12/15/18 07:00 Neck: Yes: Supple Respiratory: Yes: CTA Bilaterally Gastrointestinal: Yes: Normal Bowel Sounds, Soft. No: Tenderness Cardiovascular: Yes: Regular Rate and Rhythm JVD: No PMI: Non-Displaced Heart Sounds: Yes: S1, S2. No: Gallop Edema: No Integumentary: Yes: Bruising (right pectoral area and right arm (hematoma)) - Other Data Labs, Other Data: CBC, BMP 12/14/18 06:10 INR, PTT INR 1.19 (0.83-1.09) H 12/14/18 06:10 Imaging - Results Chest X-ray: Report Reviewed (Unremarkable) Cat Scan: Report Reviewed (Right axilla hematoma) Ultrasound: Report Reviewed (Decreased right axilla hematoma) EKG: Report Reviewed Problem List - Problems (1) Asthma Code(s): J45.909 - UNSPECIFIED ASTHMA, UNCOMPLICATED (2) Atrial fibrillation Code(s): I48.91 - UNSPECIFIED ATRIAL FIBRILLATION Qualifiers: Atrial fibrillation type: paroxysmal Qualified Code(s): I48.0 - Paroxysmal atrial fibrillation (3) Azotemia Code(s): R79.89 - OTHER SPECIFIED ABNORMAL FINDINGS OF BLOOD CHEMISTRY (4) Hematoma of axilla Code(s): S40.029A - CONTUSION OF UNSPECIFIED UPPER ARM, INITIAL ENCOUNTER (5) Hypertension Code(s): I10 - ESSENTIAL (PRIMARY) HYPERTENSION Qualifiers: Hypertension type: essential hypertension Qualified Code(s): I10 - Essential (primary) hypertension (6) Acute exacerbation of chronic low back pain Code(s): M54.5 - LOW BACK PAIN; G89.29 - OTHER CHRONIC PAIN (7) Acute on chronic kidney failure Code(s): N17.9 - ACUTE KIDNEY FAILURE, UNSPECIFIED; N18.9 - CHRONIC KIDNEY DISEASE, UNSPECIFIED Qualifiers: Acute renal failure type: unspecified Chronic kidney disease stage: stage 4 (severe) Qualified Code(s): N17.9 - Acute kidney failure, unspecified; N18.4 - Chronic kidney disease, stage 4 (severe) Assessment/Plan 1. Right pectoral and arm hematoma (decreased in size) 2. ESRD on HD via AV fistula 3. HTN 4. Hypercholesterolemia 5. PAF on DOAC/Eliquis 6. Bronchial asthma/COPD PLAN: 1. Continue Metoprolol ER and Amlodipine as tolerated 2. Continue Atorvastatin 3. Eliquis has been held and instead Heparin drip was started. Restart Eliquis when cleared. Monitor decreasing hematoma size 4. HD as per Renal 5. Bronchodilator as needed Further plans are to follow Vincent Pérez MD
--- NOTE | 2018-12-15 13:04 | PN ---
Progress Note, Physician History of Present Illness: Pt seen and examined at bedside. She is tolerating HD. - Current Medication List Current Medications: Active Medications Acetaminophen (Tylenol -) 650 mg PO Q4H PRN PRN Reason: PAIN LEVEL 1 - 3 Last Admin: 12/14/18 00:10 Dose: 650 mg Albuterol Sulfate (Ventolin Hfa Inhaler -) 1 - 2 puff IH Q4H PRN PRN Reason: SHORT OF BREATH/WHEEZING Amiodarone HCl (Cordarone -) 200 mg PO DAILY [facility] Last Admin: 12/14/18 09:50 Dose: 200 mg Amlodipine Besylate (Norvasc -) 10 mg PO DAILY [facility] Last Admin: 12/14/18 09:50 Dose: 10 mg Atorvastatin Calcium (Lipitor -) 20 mg PO HS [facility] Last Admin: 12/14/18 21:12 Dose: 20 mg Budesonide/Formoterol Fumarate (Symbicort 80/4.5mcg -) 2 puff IH BID [facility] Last Admin: 12/14/18 21:16 Dose: 2 puff Diphenhydramine HCl (Benadryl -) 25 mg PO Q6H PRN PRN Reason: FOR ITCHING Docusate Sodium (Colace -) 100 mg PO Q8H PRN PRN Reason: CONSTIPATION Duloxetine HCl (Cymbalta -) 60 mg PO DAILY [facility] Gabapentin (Neurontin -) 300 mg PO TID [facility] Last Admin: 12/15/18 06:54 Dose: 300 mg Heparin Sodium (Porcine) (Heparin -) 1,000 unit IVPUSH PRN PRN PRN Reason: Heparin Heparin Sodium (Porcine) (Heparin -) 5,000 unit IVPUSH PRN PRN PRN Reason: Heparin Heparin Sodium/Dextrose (Heparin Infusion -) 25,000 units in 500 mls @ 16 mls/ hr IVPB TITR [facility]; Protocol Last Admin: 12/14/18 21:42 Dose: 800 units/hr, 16 mls/hr Lidocaine (Lidoderm Patch -) 1 patch TP DAILY [facility] Last Admin: 12/14/18 09:50 Dose: 1 patch Lorazepam (Ativan -) 1 mg PO DAILY PRN PRN Reason: ANXIETY Last Admin: 12/15/18 01:14 Dose: 1 mg Melatonin (Melatonin) 5 mg PO [facility] Last Admin: 12/14/18 21:12 Dose: 5 mg Metoclopramide HCl (Reglan Injection -) 10 mg IVPUSH Q8H PRN PRN Reason: NAUSEA AND/OR VOMITING Last Admin: 12/15/18 01:13 Dose: 10 mg Metoprolol Succinate (Toprol Xl -) 25 mg PO DAILY [facility] Last Admin: 12/14/18 09:50 Dose: 25 mg Miscellaneous (Lidoderm Patch Removal) 1 each MC DAILY@2200 [facility] Last Admin: 12/14/18 21:17 Dose: 1 each Morphine Sulfate (Morphine Sulfate) 2 mg IVPUSH Q6H PRN PRN Reason: PAIN LEVEL 7 - 10 Last Admin: 12/15/18 06:54 Dose: 2 mg Senna (Senna -) 1 tab PO HS [facility] Last Admin: 12/14/18 21:12 Dose: 1 tab Tramadol HCl (Ultram -) 50 mg PO Q6H PRN PRN Reason: PAIN LEVEL 4 - 6 Last Admin: 12/14/18 21:12 Dose: 50 mg - Objective Vital Signs: Vital Signs Temperature 98.2 F 12/15/18 11:25 Pulse Rate 75 12/15/18 12:00 Respiratory Rate 18 12/15/18 12:00 Blood Pressure 111/75 12/15/18 12:00 O2 Sat by Pulse Oximetry (%) 96 12/15/18 07:00 Constitutional: Yes: Calm Eyes: Yes: Conjunctiva Clear HENT: Yes: Atraumatic Cardiovascular: Yes: S1, S2 Respiratory: Yes: CTA Bilaterally Gastrointestinal: Yes: Soft Genitourinary: Yes: WNL Extremities: Yes: Other (hematoma in axilla) Edema: No Neurological: Yes: Oriented Psychiatric: Yes: Oriented Labs: CBC, BMP 12/15/18 11:20 12/14/18 06:10 INR, PTT INR 1.19 (0.83-1.09) H 12/14/18 06:10 Problem List - Problems (1) COPD exacerbation Code(s): J44.1 - CHRONIC OBSTRUCTIVE PULMONARY DISEASE W (ACUTE) EXACERBATION (2) ESRD (end stage renal disease) on dialysis Code(s): N18.6 - END STAGE RENAL DISEASE; Z99.2 - DEPENDENCE ON RENAL DIALYSIS Assessment/Plan Current Medications Generic Name Dose Route Start Last Admin Trade Name Freq PRN Reason Stop Dose Admin Acetaminophen 650 mg 12/13/18 16:56 12/14/18 00:10 Tylenol - PO 650 mg Q4H PRN Administration PAIN LEVEL 1 - 3 Albuterol Sulfate 1 - 2 puff 12/13/18 16:25 Ventolin Hfa Inhaler - IH Q4H PRN SHORT OF BREATH/WHEEZING Amiodarone HCl 200 mg 12/14/18 10:00 12/14/18 09:50 Cordarone - PO 200 mg DAILY [facility] Administration Amlodipine Besylate 10 mg 12/14/18 10:00 12/14/18 09:50 Norvasc - PO 10 mg DAILY [facility] Administration Atorvastatin Calcium 20 mg 12/13/18 22:00 12/14/18 21:12 Lipitor - PO 20 mg HS [facility] Administration Budesonide/Formoterol Fumarate 2 puff 12/13/18 22:00 12/14/18 21:16 Symbicort 80/4.5mcg - IH 2 puff BID [facility] Administration Diphenhydramine HCl 25 mg 12/13/18 16:56 Benadryl - PO Q6H PRN FOR ITCHING Docusate Sodium 100 mg 12/13/18 16:56 Colace - PO Q8H PRN CONSTIPATION Duloxetine HCl 60 mg 12/15/18 10:00 Cymbalta - PO DAILY [facility] Gabapentin 300 mg 12/13/18 22:00 12/15/18 06:54 Neurontin - PO 300 mg TID [facility] Administration Heparin Sodium (Porcine) 1,000 unit 12/14/18 19:08 Heparin - IVPUSH PRN PRN Heparin Heparin Sodium (Porcine) 5,000 unit 12/14/18 19:08 Heparin - IVPUSH PRN PRN Heparin Heparin Sodium/Dextrose 25,000 units in 500 mls @ 16 mls/hr 12/14/18 19:15 21:42 Heparin Infusion - IVPB 800 units/hr TITR [facility] 16 mls/hr Administration Protocol 800 UNITS/HR Lidocaine 1 patch 12/14/18 10:00 12/14/18 09:50 Lidoderm Patch - TP 1 patch DAILY [facility] Administration Lorazepam 1 mg 12/13/18 16:25 12/15/18 01:14 Ativan - PO 1 mg DAILY PRN Administration ANXIETY Melatonin 5 mg 12/13/18 22:00 08/25/19 21:12 Melatonin PO 5 mg HS [facility] Administration Metoclopramide HCl 10 mg 12/13/18 17:47 12/15/18 01:13 Reglan Injection - IVPUSH 10 mg Q8H PRN Administration NAUSEA AND/OR VOMITING Metoprolol Succinate 25 mg 12/14/18 10:00 12/14/18 09:50 Toprol Xl - PO 25 mg DAILY [facility] Administration Miscellaneous 1 each 12/13/18 22:00 12/14/18 21:17 Lidoderm Patch Removal MC 1 each DAILY@2200 [facility] Administration Morphine Sulfate 2 mg 12/13/18 16:54 12/15/18 06:54 Morphine Sulfate IVPUSH 2 mg Q6H PRN Administration PAIN LEVEL 7 - 10 Senna 1 tab 12/13/18 22:00 12/14/18 21:12 Senna - PO 1 tab HS [facility] Administration Tramadol HCl 50 mg 12/13/18 16:56 12/14/18 21:12 Ultram - PO 50 mg Q6H PRN Administration PAIN LEVEL 4 - 6 Impression 1. ESRD 2. non compliance with HD schedule 3. chronic back pain 4. anemia 5. anxiety 6. hx of nsaid use 7. chf diastolic 8. possible complex renal cyst 9. HLD 10. nephrolithiasis 11. 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 hematoma of right axilla Plan - HD today - hg is dropping, will give a unit of blood on hd - cont epogen - vascular follow up for hematoma - renal diet - smoking cessation
[2018-12-15 13:10] LABS: INR 1.12 (0.83-1.09); PROTHROMBIN TIME (PATIENT) 13.2 SEC (9.7-13.0)
[2018-12-15] MEDS: AMIODARONE HCL 200 MG TABLET (FP) PO SCH (15:32)
[2018-12-15] MEDS: LIDOCAINE 5% TOPICAL PATCH TP SCH (15:33)
[2018-12-15] MEDS: BUDESONIDE/FORMETEROL FUMARATE 80/4.5 mcg INHALER IH SCH ×2 (15:37→21:46)
[2018-12-15] MEDS: HEPARIN INFUSION - 25,000 UNITS/500 ML INFUS.BAG IVPB SCH (15:40)
[2018-12-15] MEDS: metoPROLOL SUCCINATE 25 MG TAB.SR.24H (FP) PO SCH (15:43)
[2018-12-15] MEDS: amLODIPine BESYLATE 10 MG TABLET (FP) PO SCH (15:43)
[2018-12-15] MEDS ORDERED: PT OWN MED DRAWER 7, Y5N ONE (15:46)
[2018-12-15] MEDS: DULoxetine HCL 30 MG CAPSULE.DR PO SCH (16:16)
--- NOTE | 2018-12-15 19:24 | PN ---
Progress Note, Physician Chief Complaint: right arm pain refusing blood draws required for aptt for heparin gtt, no surgical interventions planned, will put back on eliquis History of Present Illness: Patient is a 63 year old female with a past medical history of asthma, ESRD on HD, chronic LBP, anxiety, tobacco dependence, HTN, afib (on amiodarone and eliquis) presents to ED after missing two HD sessions. Ms. Matamoros reports missing HD sessions in the past, but she has never felt symptomatic as she does now. She reports Lower back pain, generalized pruritis, nausea, paresthesias to fingers, increased anxiety and chest discomfort. Additionally, she endorses increased pain to right upper arm which began after her HD session on 12/09. Workup revealed 6.3 x 1.7cm hematoma with patent AV fistula. pt continued her eliquis (last dose 12/12 AM), and decided to proceed to ED for evaluation. Pt denied trauma, fall, or injury. her eliquis has been on hold. - Current Medication List Current Medications: Active Medications Acetaminophen (Tylenol -) 650 mg PO Q4H PRN PRN Reason: PAIN LEVEL 1 - 3 Last Admin: 12/14/18 00:10 Dose: 650 mg Albuterol Sulfate (Ventolin Hfa Inhaler -) 1 - 2 puff IH Q4H PRN PRN Reason: SHORT OF BREATH/WHEEZING Amiodarone HCl (Cordarone -) 200 mg PO DAILY [facility] Last Admin: 12/15/18 15:32 Dose: 200 mg Amlodipine Besylate (Norvasc -) 10 mg PO DAILY [facility] Last Admin: 12/15/18 15:43 Dose: 10 mg Apixaban (Eliquis -) 2.5 mg PO BID [facility] Atorvastatin Calcium (Lipitor -) 20 mg PO HS [facility] Last Admin: 12/14/18 21:12 Dose: 20 mg Budesonide/Formoterol Fumarate (Symbicort 80/4.5mcg -) 2 puff IH BID [facility] Last Admin: 12/15/18 15:37 Dose: 2 puff Diphenhydramine HCl (Benadryl -) 25 mg PO Q6H PRN PRN Reason: FOR ITCHING Docusate Sodium (Colace -) 100 mg PO Q8H PRN PRN Reason: CONSTIPATION Duloxetine HCl (Cymbalta -) 60 mg PO DAILY [facility] Last Admin: 12/15/18 16:16 Dose: 60 mg Gabapentin (Neurontin -) 300 mg PO TID [facility] Last Admin: 12/15/18 16:16 Dose: 300 mg Lidocaine (Lidoderm Patch -) 1 patch TP DAILY [facility] Last Admin: 12/15/18 15:33 Dose: 1 patch Lorazepam (Ativan -) 1 mg PO DAILY PRN PRN Reason: ANXIETY Last Admin: 12/15/18 01:14 Dose: 1 mg Melatonin (Melatonin) 5 mg PO HS [facility] Last Admin: 12/14/18 21:12 Dose: 5 mg Metoclopramide HCl (Reglan Injection -) 10 mg IVPUSH Q8H PRN PRN Reason: NAUSEA AND/OR VOMITING Last Admin: 12/15/18 01:13 Dose: 10 mg Metoprolol Succinate (Toprol Xl -) 25 mg PO DAILY [facility] Last Admin: 12/15/18 15:43 Dose: 25 mg Miscellaneous (Lidoderm Patch Removal) 1 each MC DAILY@2200 [facility] Last Admin: 12/14/18 21:17 Dose: 1 each Morphine Sulfate (Morphine Sulfate) 2 mg IVPUSH Q6H PRN PRN Reason: PAIN LEVEL 7 - 10 Last Admin: 12/15/18 16:27 Dose: 2 mg Senna (Senna -) 1 tab PO [facility] Last Admin: 12/14/18 21:12 Dose: 1 tab Tramadol HCl (Ultram -) 50 mg PO Q6H PRN PRN Reason: PAIN LEVEL 4 - 6 Last Admin: 12/14/18 21:12 Dose: 50 mg - Objective Vital Signs: Vital Signs Temperature 97.6 F 12/15/18 13:00 Pulse Rate 74 12/15/18 14:46 Respiratory Rate 18 12/15/18 14:46 Blood Pressure 140/62 12/15/18 14:46 O2 Sat by Pulse Oximetry (%) 96 12/15/18 07:00 Labs: CBC, BMP 12/15/18 11:20 12/14/18 06:10 INR, PTT INR 1.12 (0.83-1.09) H 12/15/18 11:20 Problem List - Problems (1) Hematoma of axilla Assessment/Plan: decreased size of hematoma per imaging. was started on heparin drip and eliquis was held for possible surgical intervention. No surgical intervention planned and patient is refusing frequent blood draws for aptt monitoring. will put back on eliquis. Code(s): S40.029A - CONTUSION OF UNSPECIFIED UPPER ARM, INITIAL ENCOUNTER (2) Atrial fibrillation Assessment/Plan: on amiodorone and eliquis. cardiology following. Code(s): I48.91 - UNSPECIFIED ATRIAL FIBRILLATION Qualifiers: Atrial fibrillation type: paroxysmal Qualified Code(s): I48.0 - Paroxysmal atrial fibrillation (3) Anemia Assessment/Plan: received 1 unit of prbc with dialysis today. monitor hmg/hmt in the setting of large hematoma with anticoaguation. Code(s): D64.9 - ANEMIA, UNSPECIFIED (4) Acute on chronic kidney failure Assessment/Plan: for dialysis per renal. Code(s): N17.9 - ACUTE KIDNEY FAILURE, UNSPECIFIED; N18.9 - CHRONIC KIDNEY DISEASE, UNSPECIFIED Qualifiers: Acute renal failure type: unspecified Chronic kidney disease stage: stage 4 (severe) Qualified Code(s): N17.9 - Acute kidney failure, unspecified; N18.4 - Chronic kidney disease, stage 4 (severe) (5) Chronic kidney disease (CKD) Assessment/Plan: for dialysis per renal. right arm fistula, s/p dialysis today Pt followed by renal benadryl PRN pruritis Code(s): N18.9 - CHRONIC KIDNEY DISEASE, UNSPECIFIED Qualifiers: Chronic kidney disease stage: stage 4 (severe) Qualified Code(s): N18.4 - Chronic kidney disease, stage 4 (severe) (6) CKD (chronic kidney disease) stage 4, GFR 15-29 ml/min Code(s): N18.4 - CHRONIC KIDNEY DISEASE, STAGE 4 (SEVERE) (7) Arm pain, right Assessment/Plan: morphine prn Code(s): M79.601 - PAIN IN RIGHT ARM (8) Hypertension Assessment/Plan: continue toprol, norvasc 10 Code(s): I10 - ESSENTIAL (PRIMARY) HYPERTENSION Qualifiers: Hypertension type: essential hypertension Qualified Code(s): I10 - Essential (primary) hypertension (9) Asthma Assessment/Plan: continue bronchodilators Code(s): J45.909 - UNSPECIFIED ASTHMA, UNCOMPLICATED (10) DVT prophylaxis Assessment/Plan: on eliqius Code(s): [id number] - Visit type - Emergency Visit Emergency Visit: Yes ED Registration Date: 12/13/18 Care time: The patient presented to the Emergency Department on the above date and was hospitalized for further evaluation of their emergent condition. - New Patient This patient is new to me today: No - Critical Care Critical Care patient: No - Discharge Referral Referred to [facility] No
[2018-12-15] MEDS: APIXABAN 2.5 MG TABLET PO SCH (21:43)
[2018-12-15] MEDS: MELATONIN 5 MG TABLETS PO SCH (21:43)
[2018-12-15] MEDS: ATORVASTATIN CA 20 MG TABLET (FP) PO SCH (21:43)
[2018-12-15] MEDS: SENNOSIDES 8.6MG TABLET (FP) PO SCH (21:43)
[2018-12-15] MEDS: traMADol HCL 50 MG TABLET PO PRN (21:43)
[2018-12-15] MEDS: LIDOCAINE PATCH REMOVAL MC SCH (21:46)
[2018-12-16] MEDS: MORPHINE SULFATE 2 MG/ML VIAL IVPUSH PRN ×2 (03:14→21:26)
[2018-12-16] MEDS: GABAPENTIN 300 MG CAPSULE (FP) PO SCH ×3 (07:04→21:27)
[2018-12-16] MEDS: traMADol HCL 50 MG TABLET PO PRN ×3 (08:26→20:02)
--- NOTE | 2018-12-16 08:54 | PN ---
Progress Note, Physician Chief Complaint: right arm pain continue, refusing blood to be drawn History of Present Illness: Patient is a 63 year old female with a past medical history of asthma, ESRD on HD, chronic LBP, anxiety, tobacco dependence, HTN, afib (on amiodarone and eliquis) presents to ED after missing two HD sessions. Ms. Matamoros reports missing HD sessions in the past, but she has never felt symptomatic as she does now. She reports Lower back pain, generalized pruritis, nausea, paresthesias to fingers, increased anxiety and chest discomfort. Additionally, she endorses increased pain to right upper arm which began after her HD session on 12/09. Workup revealed 6.3 x 1.7cm hematoma with patent AV fistula. pt continued her eliquis (last dose 12/12 AM), and decided to proceed to ED for evaluation. - Current Medication List Current Medications: Active Medications Acetaminophen (Tylenol -) 650 mg PO Q4H PRN PRN Reason: PAIN LEVEL 1 - 3 Last Admin: 12/14/18 00:10 Dose: 650 mg Albuterol Sulfate (Ventolin Hfa Inhaler -) 1 - 2 puff IH Q4H PRN PRN Reason: SHORT OF BREATH/WHEEZING Amiodarone HCl (Cordarone -) 200 mg PO DAILY [facility] Last Admin: 12/15/18 15:32 Dose: 200 mg Amlodipine Besylate (Norvasc -) 10 mg PO DAILY [facility] Last Admin: 12/15/18 15:43 Dose: 10 mg Apixaban (Eliquis -) 2.5 mg PO BID [facility] Last Admin: 12/15/18 21:43 Dose: 2.5 mg Atorvastatin Calcium (Lipitor -) 20 mg PO HS [facility] Last Admin: 12/15/18 21:43 Dose: 20 mg Budesonide/Formoterol Fumarate (Symbicort 80/4.5mcg -) 2 puff IH BID [facility] Last Admin: 12/15/18 21:46 Dose: 2 puff Diphenhydramine HCl (Benadryl -) 25 mg PO Q6H PRN PRN Reason: FOR ITCHING Docusate Sodium (Colace -) 100 mg PO Q8H PRN PRN Reason: CONSTIPATION Duloxetine HCl (Cymbalta -) 60 mg PO DAILY [facility] Last Admin: 12/15/18 16:16 Dose: 60 mg Gabapentin (Neurontin -) 300 mg PO TID [facility] Last Admin: 12/16/18 07:04 Dose: 300 mg Lidocaine (Lidoderm Patch -) 1 patch TP DAILY [facility] Last Admin: 12/15/18 15:33 Dose: 1 patch Lorazepam (Ativan -) 1 mg PO DAILY PRN PRN Reason: ANXIETY Last Admin: 12/15/18 01:14 Dose: 1 mg Melatonin (Melatonin) 5 mg PO [facility] Last Admin: 12/15/18 21:43 Dose: 5 mg Metoclopramide HCl (Reglan Injection -) 10 mg IVPUSH Q8H PRN PRN Reason: NAUSEA AND/OR VOMITING Last Admin: 12/15/18 01:13 Dose: 10 mg Metoprolol Succinate (Toprol Xl -) 25 mg PO DAILY [facility] Last Admin: 12/15/18 15:43 Dose: 25 mg Miscellaneous (Lidoderm Patch Removal) 1 each MC DAILY@2200 [facility] Last Admin: 12/15/18 21:46 Dose: 1 each Morphine Sulfate (Morphine Sulfate) 2 mg IVPUSH Q6H PRN PRN Reason: PAIN LEVEL 7 - 10 Last Admin: 12/16/18 03:14 Dose: 2 mg Senna (Senna -) 1 tab PO [facility] Last Admin: 12/15/18 21:43 Dose: 1 tab Tramadol HCl (Ultram -) 50 mg PO Q6H PRN PRN Reason: PAIN LEVEL 4 - 6 Last Admin: 12/16/18 08:26 Dose: 50 mg - Objective Vital Signs: Vital Signs Temperature 97.3 F L 12/16/18 01:00 Pulse Rate 78 12/16/18 01:00 Respiratory Rate 20 12/16/18 01:00 Blood Pressure 134/59 L 12/16/18 01:00 O2 Sat by Pulse Oximetry (%) 96 12/15/18 07:00 Constitutional: Yes: Well Nourished, No Distress, Calm Eyes: Yes: WNL, Conjunctiva Clear, EOM Intact HENT: Yes: WNL, Atraumatic, Normocephalic Neck: Yes: WNL, Supple, Trachea Midline Cardiovascular: Yes: WNL, Regular Rate and Rhythm Respiratory: Yes: WNL, Regular, CTA Bilaterally Gastrointestinal: Yes: WNL, Normal Bowel Sounds, Soft ...Rectal Exam: Yes: Deferred Genitourinary: Yes: WNL Breast(s): Yes: WNL Musculoskeletal: Yes: WNL Extremities: Yes: WNL Edema: No Peripheral Pulses WNL: Yes Integumentary: Yes: Bruising (to right axilla and pectoral area on right) Neurological: Yes: WNL, Alert, Oriented ...Motor Strength: WNL Psychiatric: Yes: WNL, Alert, Oriented Labs: CBC, BMP 12/15/18 11:20 12/14/18 06:10 INR, PTT INR 1.12 (0.83-1.09) H 12/15/18 11:20 Problem List - Problems (1) Anemia Assessment/Plan: received 1 unit of prbc with dialysis yesterday monitor H/H in the setting of large hematoma with anticoaguation. Code(s): D64.9 - ANEMIA, UNSPECIFIED (2) Asthma Assessment/Plan: c/w bronchodilators Code(s): J45.909 - UNSPECIFIED ASTHMA, UNCOMPLICATED (3) Atrial fibrillation Assessment/Plan: c/w amiodorone and eliquis. cardiology following. Code(s): I48.91 - UNSPECIFIED ATRIAL FIBRILLATION Qualifiers: Atrial fibrillation type: paroxysmal Qualified Code(s): I48.0 - Paroxysmal atrial fibrillation (4) Hematoma of axilla Assessment/Plan: decreased size of hematoma per imaging patient is refusing frequent blood draws for aptt monitoring. will put back on eliquis tylenol prn Code(s): S40.029A - CONTUSION OF UNSPECIFIED UPPER ARM, INITIAL ENCOUNTER (5) Hypertension Assessment/Plan: c/w troprol and norvasc Code(s): I10 - ESSENTIAL (PRIMARY) HYPERTENSION Qualifiers: Hypertension type: essential hypertension Qualified Code(s): I10 - Essential (primary) hypertension (6) Acute on chronic kidney failure Assessment/Plan: HD as per renal Code(s): N17.9 - ACUTE KIDNEY FAILURE, UNSPECIFIED; N18.9 - CHRONIC KIDNEY DISEASE, UNSPECIFIED Qualifiers: Acute renal failure type: unspecified Chronic kidney disease stage: stage 4 (severe) Qualified Code(s): N17.9 - Acute kidney failure, unspecified; N18.4 - Chronic kidney disease, stage 4 (severe) (7) Prophylactic measure Assessment/Plan: FEN monitor electroltyes no additonal IVF HD as per renal renal diet Dispo maintain as inpt full code discharge planning DVT eliquis Code(s): Z29.9 - ENCOUNTER FOR PROPHYLACTIC MEASURES, UNSPECIFIED Visit type - Emergency Visit Emergency Visit: Yes ED Registration Date: 12/13/18 Care time: The patient presented to the Emergency Department on the above date and was hospitalized for further evaluation of their emergent condition. - New Patient This patient is new to me today: Yes Date on this admission: 12/16/18 - Critical Care Critical Care patient: No - Discharge Referral Referred to [facility] No
[2018-12-16 09:08] LABS: HEMATOCRIT 26.7 % (32.4-45.2); HEMOGLOBIN 9.1 GM/dL (10.7-15.3); MCH 31.1 pg (25.7-33.7); MCHC 33.9 g/dl (32.0-36.0); MEAN CELL VOLUME 91.9 fl (80-96); MEAN PLT VOLUME 7.3 fl (7.5-11.1); PLATELET COUNT 342 K/MM3 (134-434); RBC 2.91 M/mm3 (3.60-5.2); RDW 17.4 % (11.6-15.6); WHITE BLOOD COUNT 10.3 K/mm3 (4.0-10.0)
[2018-12-16] MEDS: APIXABAN 2.5 MG TABLET PO SCH ×2 (09:53→21:27)
[2018-12-16] MEDS: AMIODARONE HCL 200 MG TABLET (FP) PO SCH (09:53)
[2018-12-16] MEDS: metoPROLOL SUCCINATE 25 MG TAB.SR.24H (FP) PO SCH (09:54)
[2018-12-16] MEDS: amLODIPine BESYLATE 10 MG TABLET (FP) PO SCH (09:54)
[2018-12-16] MEDS: LIDOCAINE 5% TOPICAL PATCH TP SCH (09:54)
[2018-12-16] MEDS: DULoxetine HCL 30 MG CAPSULE.DR PO SCH (09:54)
[2018-12-16] MEDS: BUDESONIDE/FORMETEROL FUMARATE 80/4.5 mcg INHALER IH SCH ×2 (09:55→21:31)
--- NOTE | 2018-12-16 10:28 | PN ---
Progress Note, Physician Chief Complaint: Complains of right axilla pain with the presence of hematoma History of Present Illness: Patient was seen and examined. Awake and alert. Chart was reviewed Denies shortness of breath or palpitations - Current Medication List Current Medications: Active Medications Acetaminophen (Tylenol -) 650 mg PO Q4H PRN PRN Reason: PAIN LEVEL 1 - 3 Last Admin: 12/14/18 00:10 Dose: 650 mg Albuterol Sulfate (Ventolin Hfa Inhaler -) 1 - 2 puff IH Q4H PRN PRN Reason: SHORT OF BREATH/WHEEZING Amiodarone HCl (Cordarone -) 200 mg PO DAILY [facility] Last Admin: 12/16/18 09:53 Dose: 200 mg Amlodipine Besylate (Norvasc -) 10 mg PO DAILY [facility] Last Admin: 12/16/18 09:54 Dose: 10 mg Apixaban (Eliquis -) 2.5 mg PO BID [facility] Last Admin: 12/16/18 09:53 Dose: 2.5 mg Atorvastatin Calcium (Lipitor -) 20 mg PO HS [facility] Last Admin: 12/15/18 21:43 Dose: 20 mg Budesonide/Formoterol Fumarate (Symbicort 80/4.5mcg -) 2 puff IH BID [facility] Last Admin: 12/16/18 09:55 Dose: 2 puff Diphenhydramine HCl (Benadryl -) 25 mg PO Q6H PRN PRN Reason: FOR ITCHING Docusate Sodium (Colace -) 100 mg PO Q8H PRN PRN Reason: CONSTIPATION Duloxetine HCl (Cymbalta -) 60 mg PO DAILY [facility] Last Admin: 12/16/18 09:54 Dose: 60 mg Gabapentin (Neurontin -) 300 mg PO TID [facility] Last Admin: 12/16/18 07:04 Dose: 300 mg Lidocaine (Lidoderm Patch -) 1 patch TP DAILY [facility] Last Admin: 12/16/18 09:54 Dose: 1 patch Lorazepam (Ativan -) 1 mg PO DAILY PRN PRN Reason: ANXIETY Last Admin: 12/15/18 01:14 Dose: 1 mg Melatonin (Melatonin) 5 mg PO HS [facility] Last Admin: 12/15/18 21:43 Dose: 5 mg Metoclopramide HCl (Reglan Injection -) 10 mg IVPUSH Q8H PRN PRN Reason: NAUSEA AND/OR VOMITING Last Admin: 12/15/18 01:13 Dose: 10 mg Metoprolol Succinate (Toprol Xl -) 25 mg PO DAILY [facility] Last Admin: 12/16/18 09:54 Dose: 25 mg Miscellaneous (Lidoderm Patch Removal) 1 each MC DAILY@2200 [facility] Last Admin: 12/15/18 21:46 Dose: 1 each Morphine Sulfate (Morphine Sulfate) 2 mg IVPUSH Q6H PRN PRN Reason: PAIN LEVEL 7 - 10 Last Admin: 12/16/18 03:14 Dose: 2 mg Senna (Senna -) 1 tab PO HS [facility] Last Admin: 12/15/18 21:43 Dose: 1 tab Tramadol HCl (Ultram -) 50 mg PO Q6H PRN PRN Reason: PAIN LEVEL 4 - 6 Last Admin: 12/16/18 08:26 Dose: 50 mg - Objective Vital Signs: Vital Signs Temperature 97.3 F L 12/16/18 01:00 Pulse Rate 78 12/16/18 01:00 Respiratory Rate 20 12/16/18 01:00 Blood Pressure 134/59 L 12/16/18 01:00 O2 Sat by Pulse Oximetry (%) 96 12/15/18 07:00 Eyes: Yes: PERRL HENT: Yes: Atraumatic Neck: Yes: Supple Cardiovascular: Yes: Regular Rate and Rhythm, S1, S2 Respiratory: Yes: CTA Bilaterally Gastrointestinal: Yes: Normal Bowel Sounds, Soft. No: Tenderness Edema: No Integumentary: Yes: Bruising (Right axilla and pectoral area) Labs: CBC, BMP 12/16/18 08:48 12/14/18 06:10 INR, PTT INR 1.12 (0.83-1.09) H 12/15/18 11:20 Problem List - Problems (1) Asthma Code(s): J45.909 - UNSPECIFIED ASTHMA, UNCOMPLICATED (2) Atrial fibrillation Code(s): I48.91 - UNSPECIFIED ATRIAL FIBRILLATION Qualifiers: Atrial fibrillation type: paroxysmal Qualified Code(s): I48.0 - Paroxysmal atrial fibrillation (3) Azotemia Code(s): R79.89 - OTHER SPECIFIED ABNORMAL FINDINGS OF BLOOD CHEMISTRY (4) Hematoma of axilla Code(s): S40.029A - CONTUSION OF UNSPECIFIED UPPER ARM, INITIAL ENCOUNTER (5) Hypertension Code(s): I10 - ESSENTIAL (PRIMARY) HYPERTENSION Qualifiers: Hypertension type: essential hypertension Qualified Code(s): I10 - Essential (primary) hypertension (6) Acute exacerbation of chronic low back pain Code(s): M54.5 - LOW BACK PAIN; G89.29 - OTHER CHRONIC PAIN (7) Acute on chronic kidney failure Code(s): N17.9 - ACUTE KIDNEY FAILURE, UNSPECIFIED; N18.9 - CHRONIC KIDNEY DISEASE, UNSPECIFIED Qualifiers: Acute renal failure type: unspecified Chronic kidney disease stage: stage 4 (severe) Qualified Code(s): N17.9 - Acute kidney failure, unspecified; N18.4 - Chronic kidney disease, stage 4 (severe) Assessment/Plan 1. Right pectoral and arm hematoma (decreased in size) 2. ESRD on HD via AV fistula 3. HTN 4. Hypercholesterolemia 5. PAF on DOAC/Eliquis 6. Bronchial asthma/COPD PLAN: 1. Continue Metoprolol ER and Amlodipine as tolerated 2. Continue Atorvastatin 3. Eliquis has been restarted at 2.5 mg BID. Monitor size of hematoma 4. HD as per Renal 5. Bronchodilator as needed 6. Echocardiography to assess LV/RV and valvular function Further plans are to follow Vincent Pérez MD
--- NOTE | 2018-12-16 10:31 | ECHO ---
Name: AWAIS ROJAS Exam:Adult Echocardiogram Study Date: 12/16/2018 08:54 AM Age: 63 yrs Reason For Study: htn, rt axilla hematoma Height: 63 in Weight: 125 lb BSA: 1.6 m2 MMode/2D Measurements & Calculations IVSd: 1.1 cm Ao root diam: 3.0 cm LVIDd: 5.1 cm LA dimension: 3.8 cm LVIDs: 2.8 cm LVPWd: 1.2 cm LVPWs: 1.9 cm EDV(Teich): 122.1 ml ESV(Teich): 30.5 ml LVOT diam: 2.0 cm LAV (MOD-bp): 74.0 ml Doppler Measurements & Calculations MV E max indio: 73.5 cm/sec Ao V2 max: 239.0 cm/sec MV A max indio: 101.7 cm/sec Ao max P.0 mmHg MV E/A: 0.72 Ao V2 mean: 154.9 cm/sec MV dec time: 0.14 sec Ao mean P.6 mmHg Ao V2 VTI: 46.8 cm REECE(I,D): 2.2 cm2 AI P1/2t: 328.2 msec REECE(V,D): 2.1 cm2 AI max indio: 468.1 cm/sec LV V1 max P.2 mmHg AI max P.8 mmHg LV V1 mean P.9 mmHg AI dec slope: 417.7 cm/sec2 LV V1 max: 159.4 cm/sec LV V1 mean: 99.2 cm/sec LV V1 VTI: 32.5 cm MR max indio: 556.3 cm/sec SV(LVOT): 103.1 ml MR max P.8 mmHg TR max indio: 309.8 cm/sec PA V2 max: 113.4 cm/sec TR max P.4 mmHg PA max P.1 mmHg Med Peak E' Indio: 7.1 cm/sec Med E/e': 10.3 Lat Peak E' [place]: 11.0 cm/sec Lat E/e': 6.7 Procedure A complete two-dimensional transthoracic echocardiogram was performed (2D, M-mode, Doppler and color flow Doppler). Left Ventricle The left ventricular size, thickness and function are normal. Ejection Fraction = 60%. E/A reversal c onsistent with but not diagnostic of poor LV compliance. Septal motion is consistent with conduction abnormalit y. Atria Normal left and right atrial size and function. Mitral Valve The mitral valve is normal in structure and function. There is moderate mitral regurgitation. The leonides ral regurgitant jet is eccentrically directed. Tricuspid Valve The tricuspid valve is normal in structure and function. There is mild to moderate tricuspid regurgit ation. Right ventricular systolic pressure is elevated at 38.4 mmhg. Aortic Valve There is mild aortic valve thickening. Mild to moderate aortic regurgitation. Pulmonic Valve The pulmonic valve is not well visualized. Great Vessels The aortic root is normal size. Pericardium/Pleura There is no pericardial effusion. There is no pleural effusion. Interpretation Summary The left ventricular size, thickness and function are normal Septal motion is consistent with conduction abnormality. Ejection Fraction = 60%. The mitral regurgitant jet is eccentrically directed. There is moderate mitral regurgitation. There is mild to moderate tricuspid regurgitation. Right ventricular systolic pressure is elevated at 38.4 mmhg. There is mild aortic valve thickening. Mild to moderate aortic regurgitation. MD Yung Perez 12/16/2018 10:30 AM
[2018-12-16] MEDS ORDERED: SODIUM CHLORIDE 250 ML IV PRN (15:58)
--- NOTE | 2018-12-16 15:58 | PN ---
Progress Note, Physician History of Present Illness: Pt seen and examined at bedside. She is awake and alert. She denies shortness of breath. - Current Medication List Current Medications: Active Medications Acetaminophen (Tylenol -) 650 mg PO Q4H PRN PRN Reason: PAIN LEVEL 1 - 3 Last Admin: 12/14/18 00:10 Dose: 650 mg Albuterol Sulfate (Ventolin Hfa Inhaler -) 1 - 2 puff IH Q4H PRN PRN Reason: SHORT OF BREATH/WHEEZING Amiodarone HCl (Cordarone -) 200 mg PO DAILY [facility] Last Admin: 12/16/18 09:53 Dose: 200 mg Amlodipine Besylate (Norvasc -) 10 mg PO DAILY [facility] Last Admin: 12/16/18 09:54 Dose: 10 mg Apixaban (Eliquis -) 2.5 mg PO BID [facility] Last Admin: 12/16/18 09:53 Dose: 2.5 mg Atorvastatin Calcium (Lipitor -) 20 mg PO HS [facility] Last Admin: 12/15/18 21:43 Dose: 20 mg Budesonide/Formoterol Fumarate (Symbicort 80/4.5mcg -) 2 puff IH BID [facility] Last Admin: 12/16/18 09:55 Dose: 2 puff Diphenhydramine HCl (Benadryl -) 25 mg PO Q6H PRN PRN Reason: FOR ITCHING Docusate Sodium (Colace -) 100 mg PO Q8H PRN PRN Reason: CONSTIPATION Duloxetine HCl (Cymbalta -) 60 mg PO DAILY [facility] Last Admin: 12/16/18 09:54 Dose: 60 mg Gabapentin (Neurontin -) 300 mg PO TID [facility] Last Admin: 12/16/18 13:54 Dose: 300 mg Lidocaine (Lidoderm Patch -) 1 patch TP DAILY [facility] Last Admin: 12/16/18 09:54 Dose: 1 patch Lorazepam (Ativan -) 1 mg PO DAILY PRN PRN Reason: ANXIETY Last Admin: 12/15/18 01:14 Dose: 1 mg Melatonin (Melatonin) 5 mg PO HS [facility] Last Admin: 12/15/18 21:43 Dose: 5 mg Metoclopramide HCl (Reglan Injection -) 10 mg IVPUSH Q8H PRN PRN Reason: NAUSEA AND/OR VOMITING Last Admin: 12/15/18 01:13 Dose: 10 mg Metoprolol Succinate (Toprol Xl -) 25 mg PO DAILY [facility] Last Admin: 12/16/18 09:54 Dose: 25 mg Miscellaneous (Lidoderm Patch Removal) 1 each MC DAILY@2200 [facility] Last Admin: 12/15/18 21:46 Dose: 1 each Morphine Sulfate (Morphine Sulfate) 2 mg IVPUSH Q6H PRN PRN Reason: PAIN LEVEL 7 - 10 Last Admin: 12/16/18 03:14 Dose: 2 mg Senna (Senna -) 1 tab PO HS [facility] Last Admin: 12/15/18 21:43 Dose: 1 tab Tramadol HCl (Ultram -) 50 mg PO Q6H PRN PRN Reason: PAIN LEVEL 4 - 6 Last Admin: 12/16/18 14:49 Dose: 50 mg - Objective Vital Signs: Vital Signs Temperature 97.2 F L 12/16/18 15:00 Pulse Rate 78 12/16/18 15:00 Respiratory Rate 18 12/16/18 15:00 Blood Pressure 123/65 12/16/18 15:00 O2 Sat by Pulse Oximetry (%) 96 12/15/18 07:00 Constitutional: Yes: Calm Eyes: Yes: Conjunctiva Clear HENT: Yes: Atraumatic Neck: Yes: Supple Cardiovascular: Yes: S1, S2 Respiratory: Yes: CTA Bilaterally Gastrointestinal: Yes: Soft Genitourinary: Yes: WNL Musculoskeletal: Yes: WNL Extremities: Yes: Other (right axilla hematoma) Edema: No Neurological: Yes: Oriented Psychiatric: Yes: Oriented Labs: CBC, BMP 12/16/18 08:48 12/14/18 06:10 INR, PTT INR 1.12 (0.83-1.09) H 12/15/18 11:20 Problem List - Problems (1) COPD exacerbation Code(s): J44.1 - CHRONIC OBSTRUCTIVE PULMONARY DISEASE W (ACUTE) EXACERBATION (2) ESRD (end stage renal disease) on dialysis Code(s): N18.6 - END STAGE RENAL DISEASE; Z99.2 - DEPENDENCE ON RENAL DIALYSIS Assessment/Plan Current Medications Generic Name Dose Route Start Last Admin Trade Name Freq PRN Reason Stop Dose Admin Acetaminophen 650 mg 12/13/18 16:56 12/14/18 00:10 Tylenol - PO 650 mg Q4H PRN Administration PAIN LEVEL 1 - 3 Albuterol Sulfate 1 - 2 puff 12/13/18 16:25 Ventolin Hfa Inhaler - IH Q4H PRN SHORT OF BREATH/WHEEZING Amiodarone HCl 200 mg 12/14/18 10:00 12/16/18 09:53 Cordarone - PO 200 mg DAILY [facility] Administration Amlodipine Besylate 10 mg 12/14/18 10:00 12/16/18 09:54 Norvasc - PO 10 mg DAILY [facility] Administration Apixaban 2.5 mg 12/15/18 22:00 12/16/18 09:53 Eliquis - PO 2.5 mg BID [facility] Administration Atorvastatin Calcium 20 mg 12/13/18 22:00 12/15/18 21:43 Lipitor - PO 20 mg HS [facility] Administration Budesonide/Formoterol Fumarate 2 puff 12/13/18 22:00 12/16/18 09:55 Symbicort 80/4.5mcg - IH 2 puff BID [facility] Administration Diphenhydramine HCl 25 mg 12/13/18 16:56 Benadryl - PO Q6H PRN FOR ITCHING Docusate Sodium 100 mg 12/13/18 16:56 Colace - PO Q8H PRN CONSTIPATION Duloxetine HCl 60 mg 12/15/18 10:00 12/16/18 09:54 Cymbalta - PO 60 mg DAILY [facility] Administration Gabapentin 300 mg 12/13/18 22:00 12/16/18 13:54 Neurontin - PO 300 mg TID [facility] Administration Lidocaine 1 patch 12/14/18 10:00 12/16/18 09:54 Lidoderm Patch - TP 1 patch DAILY [facility] Administration Lorazepam 1 mg 12/13/18 16:25 12/15/18 01:14 Ativan - PO 1 mg DAILY PRN Administration ANXIETY Melatonin 5 mg 12/13/18 22:00 12/15/18 21:43 Melatonin PO 5 mg HS [facility] Administration Metoclopramide HCl 10 mg 12/13/18 17:47 12/15/18 01:13 Reglan Injection - IVPUSH 10 mg Q8H PRN Administration NAUSEA AND/OR VOMITING Metoprolol Succinate 25 mg 12/14/18 10:00 12/16/18 09:54 Toprol Xl - PO 25 mg DAILY [facility] Administration Miscellaneous 1 each 12/13/18 22:00 12/15/18 21:46 Lidoderm Patch Removal MC 1 each DAILY@2200 [facility] Administration Morphine Sulfate 2 mg 12/13/18 16:54 12/16/18 03:14 Morphine Sulfate IVPUSH 2 mg Q6H PRN Administration PAIN LEVEL 7 - 10 Senna 1 tab 12/13/18 22:00 12/15/18 21:43 Senna - PO 1 tab HS [facility] Administration Tramadol HCl 50 mg 12/13/18 16:56 12/16/18 14:49 Ultram - PO 50 mg Q6H PRN Administration PAIN LEVEL 4 - 6 Impression 1. ESRD 2. non compliance with HD schedule 3. chronic back pain 4. anemia 5. anxiety 6. hx of nsaid use 7. chf diastolic 8. possible complex renal cyst 9. HLD 10. nephrolithiasis 11. 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 hematoma of right axilla Plan - HD tomorrow - monitor hg - epogen for anemia - vascular follow up for hematoma - renal diet - smoking cessation
[2018-12-16] MEDS: ATORVASTATIN CA 20 MG TABLET (FP) PO SCH (21:27)
[2018-12-16] MEDS: SENNOSIDES 8.6MG TABLET (FP) PO SCH (21:27)
[2018-12-16] MEDS: LIDOCAINE PATCH REMOVAL MC SCH (21:27)
[2018-12-16] MEDS: MELATONIN 5 MG TABLETS PO SCH (21:29)
[2018-12-17] MEDS: GABAPENTIN 300 MG CAPSULE (FP) PO SCH ×3 (06:15→21:06)
[2018-12-17] MEDS: MORPHINE SULFATE 2 MG/ML VIAL IVPUSH PRN ×2 (06:15→17:38)
--- NOTE | 2018-12-17 08:37 | PN ---
Progress Note, Physician Chief Complaint: right arm pain continues History of Present Illness: Patient is a 63 year old female with a past medical history of asthma, ESRD on HD, chronic LBP, anxiety, tobacco dependence, HTN, afib (on amiodarone and eliquis) presents to ED after missing two HD sessions. Ms. Matamoros reports missing HD sessions in the past, but she has never felt symptomatic as she does now. She reports Lower back pain, generalized pruritis, nausea, paresthesias to fingers, increased anxiety and chest discomfort. Additionally, she endorses increased pain to right upper arm which began after her HD session on 12/09. Workup revealed 6.3 x 1.7cm hematoma with patent AV fistula. pt continued her eliquis (last dose 12/12 AM), and decided to proceed to ED for evaluation. - Current Medication List Current Medications: Active Medications Acetaminophen (Tylenol -) 650 mg PO Q4H PRN PRN Reason: PAIN LEVEL 1 - 3 Last Admin: 12/14/18 00:10 Dose: 650 mg Albuterol Sulfate (Ventolin Hfa Inhaler -) 1 - 2 puff IH Q4H PRN PRN Reason: SHORT OF BREATH/WHEEZING Amiodarone HCl (Cordarone -) 200 mg PO DAILY [facility] Last Admin: 12/16/18 09:53 Dose: 200 mg Amlodipine Besylate (Norvasc -) 10 mg PO DAILY [facility] Last Admin: 12/16/18 09:54 Dose: 10 mg Apixaban (Eliquis -) 2.5 mg PO BID [facility] Last Admin: 12/16/18 21:27 Dose: 2.5 mg Atorvastatin Calcium (Lipitor -) 20 mg PO HS [facility] Last Admin: 12/16/18 21:27 Dose: 20 mg Budesonide/Formoterol Fumarate (Symbicort 80/4.5mcg -) 2 puff IH BID [facility] Last Admin: 12/16/18 21:31 Dose: 2 puff Diphenhydramine HCl (Benadryl -) 25 mg PO Q6H PRN PRN Reason: FOR ITCHING Docusate Sodium (Colace -) 100 mg PO Q8H PRN PRN Reason: CONSTIPATION Duloxetine HCl (Cymbalta -) 60 mg PO DAILY [facility] Last Admin: 12/16/18 09:54 Dose: 60 mg Epoetin Zachery (Epogen -) 10,000 unit IVPUSH ONCE ONE Stop: 12/17/18 15:59 Gabapentin (Neurontin -) 300 mg PO TID [facility] Last Admin: 12/17/18 06:15 Dose: 300 mg Sodium Chloride (Normal Saline -) 250 mls @ 3,000 mls/hr IV PRN PRN PRN Reason: Hypotension during Dialysis Stop: 12/17/18 15:59 Lidocaine (Lidoderm Patch -) 1 patch TP DAILY [facility] Last Admin: 12/16/18 09:54 Dose: 1 patch Lorazepam (Ativan -) 1 mg PO DAILY PRN PRN Reason: ANXIETY Last Admin: 12/15/18 01:14 Dose: 1 mg Melatonin (Melatonin) 5 mg PO [facility] Last Admin: 12/16/18 21:29 Dose: 5 mg Metoclopramide HCl (Reglan Injection -) 10 mg IVPUSH Q8H PRN PRN Reason: NAUSEA AND/OR VOMITING Last Admin: 12/15/18 01:13 Dose: 10 mg Metoprolol Succinate (Toprol Xl -) 25 mg PO DAILY [facility] Last Admin: 12/16/18 09:54 Dose: 25 mg Miscellaneous (Lidoderm Patch Removal) 1 each MC DAILY@2200 [facility] Last Admin: 12/16/18 21:27 Dose: 1 each Morphine Sulfate (Morphine Sulfate) 2 mg IVPUSH Q6H PRN PRN Reason: PAIN LEVEL 7 - 10 Last Admin: 12/17/18 06:15 Dose: 2 mg Senna (Senna -) 1 tab PO [facility] Last Admin: 12/16/18 21:27 Dose: 1 tab Tramadol HCl (Ultram -) 50 mg PO Q6H PRN PRN Reason: PAIN LEVEL 4 - 6 Last Admin: 12/16/18 20:02 Dose: 50 mg - Objective Vital Signs: Vital Signs Temperature 98.2 F 12/17/18 06:00 Pulse Rate 77 12/17/18 06:00 Respiratory Rate 20 12/17/18 06:00 Blood Pressure 126/64 12/17/18 06:00 O2 Sat by Pulse Oximetry (%) 97 12/16/18 21:00 Constitutional: Yes: Well Nourished, No Distress (secondary to pain), Calm, Mild Distress Eyes: Yes: WNL, Conjunctiva Clear, EOM Intact HENT: Yes: WNL, Atraumatic, Normocephalic Neck: Yes: WNL, Supple, Trachea Midline Cardiovascular: Yes: WNL, Regular Rate and Rhythm Respiratory: Yes: WNL, Regular, CTA Bilaterally Gastrointestinal: Yes: WNL, Normal Bowel Sounds, Soft ...Rectal Exam: Yes: Deferred Genitourinary: Yes: WNL Breast(s): Yes: WNL Musculoskeletal: Yes: WNL Extremities: Yes: Other (ruising (to right axilla and pectoral area on right)) Edema: No Peripheral Pulses WNL: Yes Integumentary: Yes: WNL Neurological: Yes: WNL, Alert, Oriented ...Motor Strength: WNL Psychiatric: Yes: WNL, Alert, Oriented Labs: CBC, BMP 12/16/18 08:48 12/14/18 06:10 INR, PTT INR 1.12 (0.83-1.09) H 12/15/18 11:20 Problem List - Problems (1) Anemia Assessment/Plan: received 1 unit of prbc with dialysis monitor H/H in the setting of large hematoma with anticoaguation. Code(s): D64.9 - ANEMIA, UNSPECIFIED (2) Asthma Assessment/Plan: c/w bronchodilators Code(s): J45.909 - UNSPECIFIED ASTHMA, UNCOMPLICATED (3) Atrial fibrillation Assessment/Plan: c/w amiodorone and eliquis. cardiology following. Code(s): I48.91 - UNSPECIFIED ATRIAL FIBRILLATION Qualifiers: Atrial fibrillation type: paroxysmal Qualified Code(s): I48.0 - Paroxysmal atrial fibrillation (4) Hematoma of axilla Assessment/Plan: decreased size of hematoma per imaging c/w eliquis montioring hematoma tylenol/tramadol prn Code(s): S40.029A - CONTUSION OF UNSPECIFIED UPPER ARM, INITIAL ENCOUNTER (5) Hypertension Assessment/Plan: c/w troprol and norvasc Code(s): I10 - ESSENTIAL (PRIMARY) HYPERTENSION Qualifiers: Hypertension type: essential hypertension Qualified Code(s): I10 - Essential (primary) hypertension (6) Acute on chronic kidney failure Assessment/Plan: HD as per renal Code(s): N17.9 - ACUTE KIDNEY FAILURE, UNSPECIFIED; N18.9 - CHRONIC KIDNEY DISEASE, UNSPECIFIED Qualifiers: Acute renal failure type: unspecified Chronic kidney disease stage: stage 4 (severe) Qualified Code(s): N17.9 - Acute kidney failure, unspecified; N18.4 - Chronic kidney disease, stage 4 (severe) (7) Prophylactic measure Assessment/Plan: FEN monitor electroltyes no additonal IVF HD as per renal renal diet Dispo maintain as inpt full code discharge planning, dc tomorrow after HD (planned for today) DVT eliquis Code(s): Z29.9 - ENCOUNTER FOR PROPHYLACTIC MEASURES, UNSPECIFIED Impression/Plan Impression/Plan: Problem List - Problems (1) Hematoma of axilla Assessment/Plan: decreased size of hematoma per imaging. was started on heparin drip and eliquis was held for possible surgical intervention. No surgical intervention planned and patient is refusing frequent blood draws for aptt monitoring. will put back on eliquis. Code(s): S40.029A - CONTUSION OF UNSPECIFIED UPPER ARM, INITIAL ENCOUNTER (2) Atrial fibrillation Assessment/Plan: on amiodorone and eliquis. cardiology following. Code(s): I48.91 - UNSPECIFIED ATRIAL FIBRILLATION Qualifiers: Atrial fibrillation type: paroxysmal Qualified Code(s): I48.0 - Paroxysmal atrial fibrillation (3) Anemia Assessment/Plan: received 1 unit of prbc with dialysis today. monitor hmg/hmt in the setting of large hematoma with anticoaguation. Code(s): D64.9 - ANEMIA, UNSPECIFIED (4) Acute on chronic kidney failure Assessment/Plan: for dialysis per renal. Code(s): N17.9 - ACUTE KIDNEY FAILURE, UNSPECIFIED; N18.9 - CHRONIC KIDNEY DISEASE, UNSPECIFIED Qualifiers: Acute renal failure type: unspecified Chronic kidney disease stage: stage 4 (severe) Qualified Code(s): N17.9 - Acute kidney failure, unspecified; N18.4 - Chronic kidney disease, stage 4 (severe) (5) Chronic kidney disease (CKD) Assessment/Plan: for dialysis per renal. right arm fistula, s/p dialysis today Pt followed by renal benadryl PRN pruritis Code(s): N18.9 - CHRONIC KIDNEY DISEASE, UNSPECIFIED Qualifiers: Chronic kidney disease stage: stage 4 (severe) Qualified Code(s): N18.4 - Chronic kidney disease, stage 4 (severe) (6) CKD (chronic kidney disease) stage 4, GFR 15-29 ml/min Code(s): N18.4 - CHRONIC KIDNEY DISEASE, STAGE 4 (SEVERE) (7) Arm pain, right Assessment/Plan: morphine prn Code(s): M79.601 - PAIN IN RIGHT ARM (8) Hypertension Assessment/Plan: continue toprol, norvasc 10 Code(s): I10 - ESSENTIAL (PRIMARY) HYPERTENSION Qualifiers: Hypertension type: essential hypertension Qualified Code(s): I10 - Essential (primary) hypertension (9) Asthma Assessment/Plan: continue bronchodilators Code(s): J45.909 - UNSPECIFIED ASTHMA, UNCOMPLICATED (10) DVT prophylaxis Assessment/Plan: on [employer] Code(s): [id number] - Visit type - Emergency Visit Emergency Visit: Yes ED Registration Date: 12/13/18 Care time: The patient presented to the Emergency Department on the above date and was hospitalized for further evaluation of their emergent condition. - New Patient This patient is new to me today: No - Critical Care Critical Care patient: No - Discharge Referral Referred to [facility] Med P.C.: No
--- NOTE | 2018-12-17 09:10 | PN ---
Progress Note, Physician Chief Complaint: Complains of right axilla pain with the presence of hematoma History of Present Illness: Patient was seen and examined. Awake and alert. Chart was reviewed Denies shortness of breath or palpitations - Current Medication List Current Medications: Active Medications Acetaminophen (Tylenol -) 650 mg PO Q4H PRN PRN Reason: PAIN LEVEL 1 - 3 Last Admin: 12/14/18 00:10 Dose: 650 mg Albuterol Sulfate (Ventolin Hfa Inhaler -) 1 - 2 puff IH Q4H PRN PRN Reason: SHORT OF BREATH/WHEEZING Amiodarone HCl (Cordarone -) 200 mg PO DAILY [facility] Last Admin: 12/16/18 09:53 Dose: 200 mg Amlodipine Besylate (Norvasc -) 10 mg PO DAILY [facility] Last Admin: 12/16/18 09:54 Dose: 10 mg Apixaban (Eliquis -) 2.5 mg PO BID [facility] Last Admin: 12/16/18 21:27 Dose: 2.5 mg Atorvastatin Calcium (Lipitor -) 20 mg PO HS [facility] Last Admin: 12/16/18 21:27 Dose: 20 mg Budesonide/Formoterol Fumarate (Symbicort 80/4.5mcg -) 2 puff IH BID [facility] Last Admin: 12/16/18 21:31 Dose: 2 puff Diphenhydramine HCl (Benadryl -) 25 mg PO Q6H PRN PRN Reason: FOR ITCHING Docusate Sodium (Colace -) 100 mg PO Q8H PRN PRN Reason: CONSTIPATION Duloxetine HCl (Cymbalta -) 60 mg PO DAILY [facility] Last Admin: 12/16/18 09:54 Dose: 60 mg Epoetin Zachery (Epogen -) 10,000 unit IVPUSH ONCE ONE Stop: 12/17/18 15:59 Gabapentin (Neurontin -) 300 mg PO TID [facility] Last Admin: 12/17/18 06:15 Dose: 300 mg Sodium Chloride (Normal Saline -) 250 mls @ 3,000 mls/hr IV PRN PRN PRN Reason: Hypotension during Dialysis Stop: 12/17/18 15:59 Lidocaine (Lidoderm Patch -) 1 patch TP DAILY [facility] Last Admin: 12/16/18 09:54 Dose: 1 patch Lorazepam (Ativan -) 1 mg PO DAILY PRN PRN Reason: ANXIETY Last Admin: 12/15/18 01:14 Dose: 1 mg Melatonin (Melatonin) 5 mg PO [facility] Last Admin: 12/16/18 21:29 Dose: 5 mg Metoclopramide HCl (Reglan Injection -) 10 mg IVPUSH Q8H PRN PRN Reason: NAUSEA AND/OR VOMITING Last Admin: 12/15/18 01:13 Dose: 10 mg Metoprolol Succinate (Toprol Xl -) 25 mg PO DAILY [facility] Last Admin: 12/16/18 09:54 Dose: 25 mg Miscellaneous (Lidoderm Patch Removal) 1 each MC DAILY@2200 [facility] Last Admin: 12/16/18 21:27 Dose: 1 each Morphine Sulfate (Morphine Sulfate) 2 mg IVPUSH Q6H PRN PRN Reason: PAIN LEVEL 7 - 10 Last Admin: 12/17/18 06:15 Dose: 2 mg Senna (Senna -) 1 tab PO [facility] Last Admin: 12/16/18 21:27 Dose: 1 tab Tramadol HCl (Ultram -) 50 mg PO Q6H PRN PRN Reason: PAIN LEVEL 4 - 6 Last Admin: 12/16/18 20:02 Dose: 50 mg - Objective Vital Signs: Vital Signs Temperature 98.2 F 12/17/18 06:00 Pulse Rate 77 12/17/18 06:00 Respiratory Rate 20 12/17/18 06:00 Blood Pressure 126/64 12/17/18 06:00 O2 Sat by Pulse Oximetry (%) 97 12/16/18 21:00 Eyes: Yes: PERRL HENT: Yes: Atraumatic Neck: Yes: Supple Cardiovascular: Yes: Regular Rate and Rhythm, S1, S2 Respiratory: Yes: CTA Bilaterally Gastrointestinal: Yes: Normal Bowel Sounds, Soft. No: Tenderness Edema: No Problem List - Problems (1) Asthma Code(s): J45.909 - UNSPECIFIED ASTHMA, UNCOMPLICATED (2) Atrial fibrillation Code(s): I48.91 - UNSPECIFIED ATRIAL FIBRILLATION Qualifiers: Atrial fibrillation type: paroxysmal Qualified Code(s): I48.0 - Paroxysmal atrial fibrillation (3) Azotemia Code(s): R79.89 - OTHER SPECIFIED ABNORMAL FINDINGS OF BLOOD CHEMISTRY (4) Hematoma of axilla Code(s): S40.029A - CONTUSION OF UNSPECIFIED UPPER ARM, INITIAL ENCOUNTER (5) Hypertension Code(s): I10 - ESSENTIAL (PRIMARY) HYPERTENSION Qualifiers: Hypertension type: essential hypertension Qualified Code(s): I10 - Essential (primary) hypertension (6) Acute exacerbation of chronic low back pain Code(s): M54.5 - LOW BACK PAIN; G89.29 - OTHER CHRONIC PAIN (7) Acute on chronic kidney failure Code(s): N17.9 - ACUTE KIDNEY FAILURE, UNSPECIFIED; N18.9 - CHRONIC KIDNEY DISEASE, UNSPECIFIED Qualifiers: Acute renal failure type: unspecified Chronic kidney disease stage: stage 4 (severe) Qualified Code(s): N17.9 - Acute kidney failure, unspecified; N18.4 - Chronic kidney disease, stage 4 (severe) Assessment/Plan 1. Right pectoral and arm hematoma 2. ESRD on HD via AV fistula 3. HTN 4. Hypercholesterolemia 5. PAF on DOAC/Eliquis 6. Bronchial asthma/COPD 7. Mitral valve and tricuspid valve regurgitation PLAN: 1. Continue Metoprolol ER and Amlodipine as tolerated 2. Continue Atorvastatin 3. Eliquis has been restarted at 2.5 mg BID. Will need to monitor size of hematoma as there is suspicion of larger size and if so will need to stop Eliquis 4. HD as per Renal 5. Bronchodilator as needed 6. Echocardiography was reviewed. Further plans are to follow Vincent Pérez MD
[2018-12-17] MEDS: APIXABAN 2.5 MG TABLET PO SCH ×2 (09:22→21:06)
[2018-12-17] MEDS: DULoxetine HCL 30 MG CAPSULE.DR PO SCH (09:23)
[2018-12-17] MEDS: AMIODARONE HCL 200 MG TABLET (FP) PO SCH (09:27)
[2018-12-17] MEDS: LIDOCAINE 5% TOPICAL PATCH TP SCH (09:28)
[2018-12-17] MEDS: BUDESONIDE/FORMETEROL FUMARATE 80/4.5 mcg INHALER IH SCH ×2 (09:29→21:06)
[2018-12-17] MEDS ORDERED: EPOETIN ALFA 10,000 UNIT/1 ML VIAL IVPUSH ONE (09:45)
[2018-12-17] MEDS: amLODIPine BESYLATE 10 MG TABLET (FP) PO SCH ×2 (11:09→14:52)
[2018-12-17] MEDS: metoPROLOL SUCCINATE 25 MG TAB.SR.24H (FP) PO SCH ×2 (11:10→14:53)
[2018-12-17 11:33] LABS: BASO % 0.6 % (0-2.0); EOS % 3.4 % (0-4.5); HEMATOCRIT 24.6 % (32.4-45.2); HEMOGLOBIN 8.2 GM/dL (10.7-15.3); LYMPH % 15.6 % (8-40); MCH 30.5 pg (25.7-33.7); MCHC 33.1 g/dl (32.0-36.0); MEAN PLT VOLUME 7.5 fl (7.5-11.1); MONO % 8.1 % (3.8-10.2); NEUT % 72.3 % (42.8-82.8); PLATELET COUNT 322 K/MM3 (134-434); RBC 2.68 M/mm3 (3.60-5.2); RDW 17.5 % (11.6-15.6); WHITE BLOOD COUNT 10.7 K/mm3 (4.0-10.0)
[2018-12-17 12:44] LABS: BLOOD UREA NITROGEN 61.2 mg/dL (7-18); CALCIUM 8.8 mg/dL (8.5-10.1); CREATININE 5.5 mg/dL (0.55-1.3); POTASSIUM 4.2 mmol/L (3.5-5.1)
--- NOTE | 2018-12-17 13:32 | PN ---
Progress Note, Physician History of Present Illness: Pt seen and examined at bedside. She is awake and alert. She is tolerating HD. - Current Medication List Current Medications: Active Medications Acetaminophen (Tylenol -) 650 mg PO Q4H PRN PRN Reason: PAIN LEVEL 1 - 3 Last Admin: 12/14/18 00:10 Dose: 650 mg Albuterol Sulfate (Ventolin Hfa Inhaler -) 1 - 2 puff IH Q4H PRN PRN Reason: SHORT OF BREATH/WHEEZING Amiodarone HCl (Cordarone -) 200 mg PO DAILY [facility] Last Admin: 12/17/18 09:27 Dose: 200 mg Amlodipine Besylate (Norvasc -) 10 mg PO DAILY [facility] Last Admin: 12/17/18 11:09 Dose: Not Given Apixaban (Eliquis -) 2.5 mg PO BID [facility] Last Admin: 12/17/18 09:22 Dose: 2.5 mg Atorvastatin Calcium (Lipitor -) 20 mg PO HS [facility] Last Admin: 12/16/18 21:27 Dose: 20 mg Budesonide/Formoterol Fumarate (Symbicort 80/4.5mcg -) 2 puff IH BID [facility] Last Admin: 12/17/18 09:29 Dose: 2 puff Diphenhydramine HCl (Benadryl -) 25 mg PO Q6H PRN PRN Reason: FOR ITCHING Docusate Sodium (Colace -) 100 mg PO Q8H PRN PRN Reason: CONSTIPATION Duloxetine HCl (Cymbalta -) 60 mg PO DAILY [facility] Last Admin: 12/17/18 09:23 Dose: 60 mg Gabapentin (Neurontin -) 300 mg PO TID [facility] Last Admin: 12/17/18 06:15 Dose: 300 mg Sodium Chloride (Normal Saline -) 250 mls @ 3,000 mls/hr IV PRN PRN PRN Reason: Hypotension during Dialysis Stop: 12/17/18 15:59 Lidocaine (Lidoderm Patch -) 1 patch TP DAILY [facility] Last Admin: 12/17/18 09:28 Dose: 1 patch Lorazepam (Ativan -) 1 mg PO DAILY PRN PRN Reason: ANXIETY Last Admin: 12/15/18 01:14 Dose: 1 mg Melatonin (Melatonin) 5 mg PO [facility] Last Admin: 12/16/18 21:29 Dose: 5 mg Metoclopramide HCl (Reglan Injection -) 10 mg IVPUSH Q8H PRN PRN Reason: NAUSEA AND/OR VOMITING Last Admin: 12/15/18 01:13 Dose: 10 mg Metoprolol Succinate (Toprol Xl -) 25 mg PO DAILY [facility] Last Admin: 12/17/18 11:10 Dose: Not Given Miscellaneous (Lidoderm Patch Removal) 1 each MC DAILY@2200 [facility] Last Admin: 12/16/18 21:27 Dose: 1 each Morphine Sulfate (Morphine Sulfate) 2 mg IVPUSH Q6H PRN PRN Reason: PAIN LEVEL 7 - 10 Last Admin: 12/17/18 06:15 Dose: 2 mg Senna (Senna -) 1 tab PO HS [facility] Last Admin: 12/16/18 21:27 Dose: 1 tab Tramadol HCl (Ultram -) 50 mg PO Q6H PRN PRN Reason: PAIN LEVEL 4 - 6 Last Admin: 12/16/18 20:02 Dose: 50 mg - Objective Vital Signs: Vital Signs Temperature 97.8 F 12/17/18 10:40 Pulse Rate 72 12/17/18 12:15 Respiratory Rate 18 12/17/18 12:15 Blood Pressure 130/68 12/17/18 12:15 O2 Sat by Pulse Oximetry (%) 97 12/16/18 21:00 Constitutional: Yes: Calm Eyes: Yes: Conjunctiva Clear HENT: Yes: Atraumatic Cardiovascular: Yes: S1, S2 Respiratory: Yes: CTA Bilaterally Gastrointestinal: Yes: Soft Genitourinary: Yes: WNL Musculoskeletal: Yes: WNL Extremities: Yes: Other (right axilla hematoma) Edema: No Integumentary: Yes: Bruising Neurological: Yes: Oriented Psychiatric: Yes: Oriented Labs: CBC, BMP 12/17/18 10:45 12/17/18 10:45 INR, PTT INR 1.12 (0.83-1.09) H 12/15/18 11:20 Problem List - Problems (1) COPD exacerbation Code(s): J44.1 - CHRONIC OBSTRUCTIVE PULMONARY DISEASE W (ACUTE) EXACERBATION (2) ESRD (end stage renal disease) on dialysis Code(s): N18.6 - END STAGE RENAL DISEASE; Z99.2 - DEPENDENCE ON RENAL DIALYSIS Assessment/Plan Current Medications Generic Name Dose Route Start Last Admin Trade Name Freq PRN Reason Stop Dose Admin Acetaminophen 650 mg 12/13/18 16:56 12/14/18 00:10 Tylenol - PO 650 mg Q4H PRN Administration PAIN LEVEL 1 - 3 Albuterol Sulfate 1 - 2 puff 12/13/18 16:25 Ventolin Hfa Inhaler - IH Q4H PRN SHORT OF BREATH/WHEEZING Amiodarone HCl 200 mg 12/14/18 10:00 12/17/18 09:27 Cordarone - PO 200 mg DAILY [facility] Administration Amlodipine Besylate 10 mg 12/14/18 10:00 12/17/18 11:09 Norvasc - PO Not Given DAILY [facility] Apixaban 2.5 mg 12/15/18 22:00 12/17/18 09:22 Eliquis - PO 2.5 mg BID [facility] Administration Atorvastatin Calcium 20 mg 12/13/18 22:00 12/16/18 21:27 Lipitor - PO 20 mg HS [facility] Administration Budesonide/Formoterol Fumarate 2 puff 12/13/18 22:00 12/17/18 09:29 Symbicort 80/4.5mcg - IH 2 puff BID [facility] Administration Diphenhydramine HCl 25 mg 12/13/18 16:56 Benadryl - PO Q6H PRN FOR ITCHING Docusate Sodium 100 mg 12/13/18 16:56 Colace - PO Q8H PRN CONSTIPATION Duloxetine HCl 60 mg 12/15/18 10:00 12/17/18 09:23 Cymbalta - PO 60 mg DAILY [facility] Administration Gabapentin 300 mg 12/13/18 22:00 12/17/18 06:15 Neurontin - PO 300 mg TID [facility] Administration Sodium Chloride 250 mls @ 3,000 mls/hr 12/16/18 15:58 Normal Saline - IV 12/17/18 15:59 PRN PRN Hypotension during Dialysis Lidocaine 1 patch 12/14/18 10:00 12/17/18 09:28 Lidoderm Patch - TP 1 patch DAILY [facility] Administration Lorazepam 1 mg 12/13/18 16:25 12/15/18 01:14 Ativan - PO 1 mg DAILY PRN Administration ANXIETY Melatonin 5 mg 12/13/18 22:00 12/16/18 21:29 Melatonin PO 5 mg HS [facility] Administration Metoclopramide HCl 10 mg 12/13/18 17:47 12/15/18 01:13 Reglan Injection - IVPUSH 10 mg Q8H PRN Administration NAUSEA AND/OR VOMITING Metoprolol Succinate 25 mg 12/14/18 10:00 12/17/18 11:10 Toprol Xl - PO Not Given DAILY [facility] Miscellaneous 1 each 12/13/18 22:00 12/16/18 21:27 Lidoderm Patch Removal MC 1 each DAILY@2200 [facility] Administration Morphine Sulfate 2 mg 12/13/18 16:54 12/17/18 06:15 Morphine Sulfate IVPUSH 2 mg Q6H PRN Administration PAIN LEVEL 7 - 10 Senna 1 tab 12/13/18 22:00 12/16/18 21:27 Senna - PO 1 tab HS [facility] Administration Tramadol HCl 50 mg 12/13/18 16:56 12/16/18 20:02 Ultram - PO 50 mg Q6H PRN Administration PAIN LEVEL 4 - 6 Impression 1. ESRD 2. non compliance with HD schedule 3. chronic back pain 4. anemia 5. anxiety 6. hx of nsaid use 7. chf diastolic 8. possible complex renal cyst 9. HLD 10. nephrolithiasis 11. 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 hematoma of right axilla Plan - pt tolerating HD - monitor hg - epogen for anemia - monitor hematoma - renal diet - smoking cessation
[2018-12-17] MEDS: ATORVASTATIN CA 20 MG TABLET (FP) PO SCH (21:05)
[2018-12-17] MEDS: SENNOSIDES 8.6MG TABLET (FP) PO SCH (21:06)
[2018-12-17] MEDS: LIDOCAINE PATCH REMOVAL MC SCH (21:06)
[2018-12-17] MEDS: MELATONIN 5 MG TABLETS PO SCH (21:06)
[2018-12-18] MEDS: traMADol HCL 50 MG TABLET PO PRN ×2 (00:15→09:10)
[2018-12-18] MEDS: MORPHINE SULFATE 2 MG/ML VIAL IVPUSH PRN (01:48)
[2018-12-18] MEDS: GABAPENTIN 300 MG CAPSULE (FP) PO SCH (06:03)
--- NOTE | 2018-12-18 07:36 | DS ---
Physical Exam: SUBJECTIVE: Patient seen and examined OBJECTIVE: Vital Signs Period Temp Pulse Resp BP Sys/Bills Pulse Ox Last 24 Hr 97.7 F-99.2 F 70-84 18-20 120-152/64-96 98 PHYSICAL EXAM Constitutional: Yes: Well Nourished, No Distress (secondary to pain), Calm, Mild Distress Eyes: Yes: WNL, Conjunctiva Clear, EOM Intact HENT: Yes: WNL, Atraumatic, Normocephalic Neck: Yes: WNL, Supple, Trachea Midline Cardiovascular: Yes: WNL, Regular Rate and Rhythm Respiratory: Yes: WNL, Regular, CTA Bilaterally Gastrointestinal: Yes: WNL, Normal Bowel Sounds, Soft ...Rectal Exam: Yes: Deferred Genitourinary: Yes: WNL Breast(s): Yes: WNL Musculoskeletal: Yes: WNL Extremities: Yes: Other (ruising (to right axilla and pectoral area on right)) Edema: No Peripheral Pulses WNL: Yes Integumentary: Yes: WNL Neurological: Yes: WNL, Alert, Oriented ...Motor Strength: WNL Psychiatric: Yes: WNL, Alert, Oriented LABS Laboratory Results - last 24 hr 12/14/18 12/17/18 12/17/18 06:10 10:45 10:45 WBC 10.7 H RBC 2.68 L Hgb 8.2 L Hct 24.6 L MCV 92.0 MCH 30.5 MCHC 33.1 RDW 17.5 H Plt Count 322 MPV 7.5 Absolute Neuts (auto) 7.7 Neutrophils % 72.3 Lymphocytes % 15.6 Monocytes % 8.1 Eosinophils % 3.4 Basophils % 0.6 Nucleated RBC % 0 PTT (Actin FS) 42.9 H Sodium Potassium Chloride Carbon Dioxide Anion Gap BUN Creatinine Est GFR (CKD-EPI)AfAm Est GFR (CKD-EPI)NonAf Random Glucose Calcium Crossmatch See Detail 12/17/18 10:45 WBC RBC Hgb Hct MCV MCH MCHC RDW Plt Count MPV Absolute Neuts (auto) Neutrophils % Lymphocytes % Monocytes % Eosinophils % Basophils % Nucleated RBC % PTT (Actin FS) Sodium 133 L Potassium 4.2 Chloride 96 L Carbon Dioxide 24 Anion Gap 13 BUN 61.2 H Creatinine 5.5 H Est GFR (CKD-EPI)AfAm 8.97 Est GFR (CKD-EPI)NonAf 7.74 Random Glucose 95 Calcium 8.8 Crossmatch HOSPITAL COURSE: Date of Admission:12/13/18 Date of Discharge: 12/18/18 - Problems (1) Hematoma of axilla Assessment/Plan: decreased size of hematoma per imaging. was started on heparin drip and eliquis was held for possible surgical intervention. No surgical intervention planned and patient is refusing frequent blood draws for aptt monitoring. will put back on eliquis. Code(s): S40.029A - CONTUSION OF UNSPECIFIED UPPER ARM, INITIAL ENCOUNTER (2) Atrial fibrillation Assessment/Plan: on amiodorone and eliquis. cardiology following. Code(s): I48.91 - UNSPECIFIED ATRIAL FIBRILLATION Qualifiers: Atrial fibrillation type: paroxysmal Qualified Code(s): I48.0 - Paroxysmal atrial fibrillation (3) Anemia Assessment/Plan: received 1 unit of prbc with dialysis today. monitor hmg/hmt in the setting of large hematoma with anticoaguation. Code(s): D64.9 - ANEMIA, UNSPECIFIED (4) Acute on chronic kidney failure Assessment/Plan: for dialysis per renal. Code(s): N17.9 - ACUTE KIDNEY FAILURE, UNSPECIFIED; N18.9 - CHRONIC KIDNEY DISEASE, UNSPECIFIED Qualifiers: Acute renal failure type: unspecified Chronic kidney disease stage: stage 4 (severe) Qualified Code(s): N17.9 - Acute kidney failure, unspecified; N18.4 - Chronic kidney disease, stage 4 (severe) (5) Chronic kidney disease (CKD) Assessment/Plan: for dialysis per renal. right arm fistula, s/p dialysis today Pt followed by renal benadryl PRN pruritis Code(s): N18.9 - CHRONIC KIDNEY DISEASE, UNSPECIFIED Qualifiers: Chronic kidney disease stage: stage 4 (severe) Qualified Code(s): N18.4 - Chronic kidney disease, stage 4 (severe) (6) CKD (chronic kidney disease) stage 4, GFR 15-29 ml/min Code(s): N18.4 - CHRONIC KIDNEY DISEASE, STAGE 4 (SEVERE) (7) Arm pain, right Assessment/Plan: morphine prn Code(s): M79.601 - PAIN IN RIGHT ARM (8) Hypertension Assessment/Plan: continue toprol, norvasc 10 Code(s): I10 - ESSENTIAL (PRIMARY) HYPERTENSION Qualifiers: Hypertension type: essential hypertension Qualified Code(s): I10 - Essential (primary) hypertension (9) Asthma Assessment/Plan: continue bronchodilators Code(s): J45.909 - UNSPECIFIED ASTHMA, UNCOMPLICATED (10) DVT prophylaxis Assessment/Plan: on eliqius Code(s): [id number] - Minutes to complete discharge: 35 Discharge Summary Reason For Visit: AZOTEMIA Current Active Problems Anemia (Acute) Asthma (Acute) Asthma (Acute) Atrial fibrillation (Acute) Azotemia (Acute) Hematoma of axilla (Acute) Hypertension (Acute) Prophylactic measure (Acute) Other Procedures: Hemodialysis Hospital Course: Course: (1) Hematoma of axilla Assessment/Plan: decreased size of hematoma per imaging. was started on heparin drip and eliquis was held for possible surgical intervention. No surgical intervention planned and patient is refusing frequent blood draws for aptt monitoring. will put back on eliquis. (2) Atrial fibrillation Assessment/Plan: on amiodorone and eliquis. cardiology following. (3) Anemia Assessment/Plan: received 1 unit of prbc with dialysis today. monitor hmg/hmt in the setting of large hematoma with anticoaguation. (4) Acute on chronic kidney failure Assessment/Plan: for dialysis per renal. (5) Chronic kidney disease (CKD) Assessment/Plan: for dialysis per renal. right arm fistula, s/p dialysis today Pt followed by renal benadryl PRN pruritis (6) CKD (chronic kidney disease) stage 4, GFR 15-29 ml/min (7) Arm pain, right Assessment/Plan: morphine prn (8) Hypertension Assessment/Plan: continue toprol, norvasc 10 (9) Asthma Assessment/Plan: continue bronchodilators Code(s): J45.909 - UNSPECIFIED ASTHMA, UNCOMPLICATED (10) DVT prophylaxis Assessment/Plan: on eliqius - Instructions Diet, Activity, Other Instructions: You came in to hospital after missing several dialysis sessions. A lerge hemtoma (collection of blood) was right under your right arm. Your blood thinner was held and restarted 2 days later. The pain and the swelling in your arm became less. The You underwent dialysis several times and your kidney function improved. You should retutn back to your dialysis center and continue as scheduled. You should stay on a low protein, low potassium diet and limit the amount of fluids you have. Continue all of youe meidcations including the eliquis. If the pain in your arm, abdominal pain, itchiness return call your primary care provider or return back to the ED. Disposition: HOME - Home Medications Comprehensive Discharge Medication List: Ambulatory Orders Apixaban [Eliquis] 2.5 mg PO BID 08/09/18 Atorvastatin Ca [Lipitor] 20 mg PO HS 08/09/18 Duloxetine HCl [Cymbalta -] 60 mg PO DAILY 08/09/18 Fluticasone/Salmeterol [Advair 250-50 Diskus] 1 each IH BID 08/09/18 Melatonin 5 mg PO HS 08/09/18 Sennosides [Senna] 8.6 mg PO HS 08/09/18 Amiodarone HCl [Cordarone -] 200 mg PO DAILY #30 tablet 08/20/18 Gabapentin [Neurontin -] 300 mg PO TID #30 capsule 08/20/18 Metoprolol Succinate [Toprol XL -] 25 mg PO DAILY #30 tab.sr.24h 08/20/18 Tramadol HCl 50 mg PO Q6H #12 tablet MDD 200mg 11/03/18 Albuterol Sulfate Inhaler - [Ventolin HFA Inhaler -] 1 - 2 inh PO Q4H PRN #1 inhaler 11/19/18 LORazepam [Ativan] 1 mg PO BID #14 tablet MDD 2 11/19/18 Lidocaine 5% Patch [Lidoderm -] 1 patch TP DAILY #7 patch 12/11/18 Acetaminophen [Tylenol .Regular Strength -] 650 mg PO Q4H PRN tablet 12/17/18 Amlodipine Besylate [Norvasc -] 10 mg PO DAILY tablet 12/17/18 Apixaban [Eliquis -] 2.5 mg PO BID tablet 12/17/18 Docusate Sodium [Colace -] 100 mg PO Q8H PRN capsule 12/17/18 Problem List - Problems (1) Anemia Code(s): D64.9 - ANEMIA, UNSPECIFIED (2) Asthma Code(s): J45.909 - UNSPECIFIED ASTHMA, UNCOMPLICATED (3) Atrial fibrillation Code(s): I48.91 - UNSPECIFIED ATRIAL FIBRILLATION Qualifiers: Atrial fibrillation type: paroxysmal Qualified Code(s): I48.0 - Paroxysmal atrial fibrillation (4) Hematoma of axilla Code(s): S40.029A - CONTUSION OF UNSPECIFIED UPPER ARM, INITIAL ENCOUNTER (5) Hypertension Code(s): I10 - ESSENTIAL (PRIMARY) HYPERTENSION Qualifiers: Hypertension type: essential hypertension Qualified Code(s): I10 - Essential (primary) hypertension (6) Acute on chronic kidney failure Code(s): N17.9 - ACUTE KIDNEY FAILURE, UNSPECIFIED; N18.9 - CHRONIC KIDNEY DISEASE, UNSPECIFIED Qualifiers: Acute renal failure type: unspecified Chronic kidney disease stage: stage 4 (severe) Qualified Code(s): N17.9 - Acute kidney failure, unspecified; N18.4 - Chronic kidney disease, stage 4 (severe) (7) Prophylactic measure Code(s): Z29.9 - ENCOUNTER FOR PROPHYLACTIC MEASURES, UNSPECIFIED This patient is new to me today: Yes Date on this admission: 12/18/18 Emergency Visit: Yes ED Registration Date: 12/13/18 Care time: The patient presented to the Emergency Department on the above date and was hospitalized for further evaluation of their emergent condition. Critical Care patient: No - Discharge Referral Referred to [facility] No
[2018-12-18] MEDS: DULoxetine HCL 30 MG CAPSULE.DR PO SCH (09:09)
[2018-12-18] MEDS: metoPROLOL SUCCINATE 25 MG TAB.SR.24H (FP) PO SCH (09:09)
[2018-12-18] MEDS: AMIODARONE HCL 200 MG TABLET (FP) PO SCH (09:11)
[2018-12-18] MEDS: LIDOCAINE 5% TOPICAL PATCH TP SCH (09:11)
[2018-12-18] MEDS: APIXABAN 2.5 MG TABLET PO SCH (09:11)
[2018-12-18] MEDS: amLODIPine BESYLATE 10 MG TABLET (FP) PO SCH (09:11)
[2018-12-18] MEDS: BUDESONIDE/FORMETEROL FUMARATE 80/4.5 mcg INHALER IH SCH (09:14)
[2018-12-18] MEDS ORDERED: guaiFENesin 200 MG/10 ML 10 ML UNIT-DOSE CUPS PO PRN (10:16)
[2018-12-18 10:26] VITALS: BP 128/78; PULSE 80; TEMP 97.8
== END 2018-12-18 11:18 | disposition home health service (06) | DRG 469 ==
LOC: JER 05:38 → JERBED 13:24 → J8W 12-14 17:09
PROVIDERS: ADMIT Internal Medicine; ATTEND Nurse Practitioner Acute Care
PROC: 5A1D70Z Performance of Urinary Filtration, Intermittent, Less than 6 Hours Per Day (ICD-10-PCS; principal; 2018-12-13)
PROC: 30233N1 Transfusion of Nonautologous Red Blood Cells into Peripheral Vein, Percutaneous Approach (ICD-10-PCS; 2018-12-15)
DX: N17.9 Acute kidney failure, unspecified (principal); N18.6 End stage renal disease; I13.2 Hypertensive heart and chronic kidney disease with heart failure and with stage 5 chronic kidney disease, or end stage renal disease; I50.30 Unspecified diastolic (congestive) heart failure; G62.9 Polyneuropathy, unspecified; N28.1 Cyst of kidney, acquired; I48.0 Paroxysmal atrial fibrillation; I36.1 Nonrheumatic tricuspid (valve) insufficiency; F32.9 Major depressive disorder, single episode, unspecified; I34.0 Nonrheumatic mitral (valve) insufficiency; M79.81 Nontraumatic hematoma of soft tissue; J44.9 Chronic obstructive pulmonary disease, unspecified; Z99.2 Dependence on renal dialysis; L29.8 Other pruritus; T50.3X5A Adverse effect of electrolytic, caloric and water-balance agents, initial encounter; E78.5 Hyperlipidemia, unspecified; G89.29 Other chronic pain; M54.5 Low back pain; D64.9 Anemia, unspecified; E03.9 Hypothyroidism, unspecified; Z96.643 Presence of artificial hip joint, bilateral; F41.9 Anxiety disorder, unspecified; F17.210 Nicotine dependence, cigarettes, uncomplicated; Z91.15 Patient's noncompliance with renal dialysis; F12.10 Cannabis abuse, uncomplicated; E05.90 Thyrotoxicosis, unspecified without thyrotoxic crisis or storm; Z85.43 Personal history of malignant neoplasm of ovary
CPT/HCPCS: 36415; 36430; 36511; 71045-TC-FY; 73200-TC-RT; 76882-TC-RT-FY; 80048; 80053; 83735; 83880; 84100; 84439; 84443; 84480; 84481; 84484; 85025; 85027; 85610; 85730; 86803; 86850; 86900; 86901; 86922; 87340; 93005; 93010; 93306-TC; 97116-GP; 97161-GP; 99285-25; J0131; J0885; J1644; P9038; P9058

== ENCOUNTER 2018-12-19 16:17 | Emergency (ER) | payer OTHER ==
--- NOTE | 2018-12-19 17:02 | PDOC ---
Rapid Medical Evaluation Chief Complaint: Back Pain Time Seen by Provider: 12/19/18 16:46 Medical Evaluation: Allergies Allergy/AdvReac Type Severity Reaction Status Date / Time levofloxacin [From Levaquin] Allergy Mild Itching Verified 12/19/18 16:57 12/19/18 17:00 I have performed a brief in-person evaluation of this patient. The patient presents with a chief complaint of:Here for usual lower back pain. Numerous ED visits for same. H/o chronic LBP, HTN, COPD, ESRD on HD (T/T/S) via RUE fistula. S/p recent admission for L axilla hematoma and discharged yesterday Pertinent physical exam findings:stable I have ordered the following:nothing The patient will proceed to the ED for further evaluation. 12/19/18 17:02 Discharge Disposition - Diagnosis Acute exacerbation of chronic low back pain - Referrals - Patient Instructions - Post Discharge Activity
[2018-12-19 17:04] VITALS: PULSE 81; BMI 23.0
[2018-12-19] MEDS ORDERED: ACETAMINOPHEN 1000 MG/100 ML VIAL (NON FORMULARY) IVPB ONE ×2 (17:38→17:50)
[2018-12-19] MEDS ORDERED: LIDOCAINE 5% TOPICAL PATCH TP ONE (17:40)
[2018-12-19] MEDS ORDERED: ACETAMINOPHEN 325 MG TABLET (FP) PO ONE (17:45)
--- NOTE | 2018-12-19 17:45 | PDOC ---
History of Present Illness - General History Source: Patient Exam Limitations: No Limitations <Martha Frausto - Last Filed: 12/19/18 18:45> <Megan Sneed - Last Filed: 12/19/18 20:14> - General Chief Complaint: Back Pain Stated Complaint: BACK PAIN Time Seen by Provider: 12/19/18 16:46 Past History - Past Medical History Anemia: Yes Asthma: Yes Cancer: No Cardiac Disorders: Yes CVA: No COPD: Yes CHF: No DVT: No Dementia: No Diabetes: No Dialysis: Yes (ESRD AVF TO [facility]) GI Disorders: Yes (bleeding ulcer) Disorders: Yes (KIDNEY STONE;) HTN: Yes Hypercholesterolemia: Yes Kidney Stones: Yes Liver Disease: No Psychiatric Problems: Yes (ANXIETY, DEPRESSION) Seizures: No Thyroid Disease: Yes (hypothyroid) - Surgical History Abdominal Surgery: No Appendectomy: No Cardiac Surgery: No Cholecystectomy: No Lung Surgery: No Neurologic Surgery: No Orthopedic Surgery: Yes (B/L hip replacement (rt 2009; left 2012)) - Immunization History Td Vaccination: Yes TDAP Vaccination: No Immunization Up to Date: Yes - Suicide/Smoking/Psychosocial Hx Smoking Status: Yes Smoking History: Never smoked Years of Tobacco Use: 30 Have you smoked in the past 12 months: No Number of Cigarettes Smoked Daily: 3 If you are a former smoker, when did you quit?: refused booklet 07/21/14 Cigars Per Day: 0 Information on smoking cessation initiated: No 'Breaking Loose' booklet given: 08/09/18 Hx Alcohol Use: No Drug/Substance Use Hx: No Substance Use Type: None Hx Substance Use Treatment: Yes <Martha Frausto - Last Filed: 12/19/18 18:45> <Megan Sneed - Last Filed: 12/19/18 20:14> - Past Medical History Allergies/Adverse Reactions: Allergies Allergy/AdvReac Type Severity Reaction Status Date / Time levofloxacin [From Levaquin] Allergy Mild Itching Verified 12/19/18 16:57 Home Medications: Ambulatory Orders Apixaban [Eliquis] 2.5 mg PO BID 08/09/18 Atorvastatin Ca [Lipitor] 20 mg PO HS 08/09/18 Duloxetine HCl [Cymbalta -] 60 mg PO DAILY 08/09/18 Fluticasone/Salmeterol [Advair 250-50 Diskus] 1 each IH BID 08/09/18 Melatonin 5 mg PO HS 08/09/18 Sennosides [Senna] 8.6 mg PO HS 08/09/18 Amiodarone HCl [Cordarone -] 200 mg PO DAILY #30 tablet 08/20/18 Gabapentin [Neurontin -] 300 mg PO TID #30 capsule 08/20/18 Metoprolol Succinate [Toprol XL -] 25 mg PO DAILY #30 tab.sr.24h 08/20/18 Tramadol HCl 50 mg PO Q6H #12 tablet MDD 200mg 11/03/18 Albuterol Sulfate Inhaler - [Ventolin HFA Inhaler -] 1 - 2 inh PO Q4H PRN #1 inhaler 11/19/18 LORazepam [Ativan] 1 mg PO BID #14 tablet MDD 2 11/19/18 Lidocaine 5% Patch [Lidoderm -] 1 patch TP DAILY #7 patch 12/11/18 Acetaminophen [Tylenol .Regular Strength -] 650 mg PO Q4H PRN tablet 12/17/18 Amlodipine Besylate [Norvasc -] 10 mg PO DAILY tablet 12/17/18 Apixaban [Eliquis -] 2.5 mg PO BID tablet 12/17/18 Docusate Sodium [Colace -] 100 mg PO Q8H PRN capsule 12/17/18 *Physical Exam - Vital Signs Last Vital Signs Temp Pulse Resp BP Pulse Ox 98.2 F 81 17 144/86 91 L 12/19/18 16:57 12/19/18 16:57 12/19/18 16:57 12/19/18 16:57 12/19/18 16:57 - Physical Exam General Appearance: No: Apparent Distress Respiratory/Chest: positive: Lungs Clear, Normal Breath Sounds. negative: Respiratory Distress Cardiovascular: positive: Irregularly Irregular. negative: Murmur Gastrointestinal/Abdominal: positive: Soft. negative: Tender, Distended, Guarding, Tenderness Musculoskeletal: positive: Other (+L lumar paraspinal muscle tenderness) Extremity: positive: Other (+ecchymosis along RUE) Neurologic: positive: Alert, Normal Mood/Affect <Martha Frausto - Last Filed: 12/19/18 18:45> - Vital Signs Last Vital Signs Temp Pulse Resp BP Pulse Ox 98.4 F 81 19 134/70 95 12/19/18 19:09 12/19/18 19:09 12/19/18 19:09 12/19/18 19:09 12/19/18 19:09 <Megan Sneed - Last Filed: 12/19/18 20:14> ED Treatment Course - Medications Given in the ED: ED Medications Discontinued Medications Generic Name Dose Route Start Last Admin Trade Name Rip PRN Reason Stop Dose Admin Acetaminophen 1,000 mg 12/19/18 17:38 12/19/18 19:09 Ofirmev Injection - IVPB 12/19/18 17:39 Not Given ONCE ONE Acetaminophen 975 mg 12/19/18 17:45 12/19/18 19:09 Tylenol - PO 12/19/18 17:46 Not Given ONCE ONE Acetaminophen 1,000 mg 12/19/18 17:50 12/19/18 18:04 Ofirmev Injection - IVPB 12/19/18 17:51 1,000 mg ONCE ONE Administration Lidocaine 1 patch 12/19/18 17:40 12/19/18 19:00 Lidoderm Patch - TP 12/19/18 17:41 1 patch ONCE ONE Administration <Megan Sneed - Last Filed: 12/19/18 20:14> Medical Decision Making - Medical Decision Making 63 y/o F hx of chronic lower back pain, HTN, COPD, ESRD on HD (; last dialysis 12/17), atrial fibrillation, recently discharged yesterday for R axillary hematoma presents to ED for acute on chronic nonradiating lower back pain. Patient did not take anything for pain. States she usually comes to ED for the pain medication. Patient has been to ED multiple visits for similar complaint. Denies noting any increase in size of her hematoma to RUE. Denies fever, sob, cp, abd pain, vomiting, numbness/tingling/weakness of extremities, urinary complaints, saddle/groin paresthesia. Acute on chronic LBP; no current suspicion for cauda equina or other acute pathology Plan: Tylenol, Lido patch 12/19/18 17:43 Patient did not receive all of her Tylenol or the lido patch but is now requesting to go home States she is tired and wants to rest Stable for dc 12/19/18 18:45 <Martha Frausto - Last Filed: 12/19/18 18:45> - Medical Decision Making The patient was seen and evaluated in conjunction with midlevel provider under my direct supervision, ancillary studies were reviewed. I agree with the plan as outlined SHAUNA Frausto. HPI, workup/dispo as outlined. VS reviewed, wnl. anticipate discharge, pcp followup, return precautions 12/19/18 20:14 <Megan Sneed - Last Filed: 12/19/18 20:14> *DC/Admit/Observation/Transfer - Discharge Dispostion Decision to Admit order: No <Martha Frausto - Last Filed: 12/19/18 18:45> <Megan Sneed - Last Filed: 12/19/18 20:14> Diagnosis at time of Disposition: Acute exacerbation of chronic low back pain - Discharge Dispostion Disposition: HOME Condition at time of disposition: Stable - Patient Instructions Printed Discharge Instructions: DI for Low Back Pain Additional Instructions: Thank you for choosing [facility]. It was a pleasure taking care of you. You may take Tylenol 650 mg every 6 hours by mouth as needed for mild to moderate pain. Do not take more than 4000 mg of Tylenol in 1 day. Return to the Emergency Department if your symptoms worsen or persist, you have fever, shortness of breath, chest pain, severe abdominal pain, vomiting, weakness of extremities (arms and/or legs), changes in vision or walking or other concerning symptoms.
[2018-12-19] MEDS ORDERED: ACETAMINOPHEN INJECTION 100 ML IVPB ONE (17:58)
[2018-12-19] MEDS ORDERED: LIDOCAINE 5% TOPICAL PATCH ONE (19:01)
[2018-12-19 19:10] VITALS: BP 134/70; TEMP 98.4
== END 2018-12-19 19:10 | disposition home or self-care (01) ==
LOC: JER 16:17
PROC: 3E033NZ Introduction of Analgesics, Hypnotics, Sedatives into Peripheral Vein, Percutaneous Approach (ICD-10-PCS; principal; 2018-12-19)
DX: M54.5 Low back pain (principal); G89.29 Other chronic pain; J44.9 Chronic obstructive pulmonary disease, unspecified; I48.91 Unspecified atrial fibrillation; I12.0 Hypertensive chronic kidney disease with stage 5 chronic kidney disease or end stage renal disease; N18.6 End stage renal disease; Z99.2 Dependence on renal dialysis; Z87.891 Personal history of nicotine dependence; F41.8 Other specified anxiety disorders; E03.9 Hypothyroidism, unspecified; E78.00 Pure hypercholesterolemia, unspecified
CPT/HCPCS: 96374; 99283-25; J0131

== ENCOUNTER 2018-12-20 07:53 | Emergency (ER) | payer OTHER ==
[2018-12-20 08:16] VITALS: BP 154/87; PULSE 86; TEMP 98.2; BMI 23.0
[2018-12-20] MEDS ORDERED: ACETAMINOPHEN 500 MG TABLET (FP) PO ONE (08:51)
--- NOTE | 2018-12-20 08:51 | PDOC ---
History of Present Illness - General Chief Complaint: Injury Stated Complaint: FALL Time Seen by Provider: 12/20/18 08:29 History Source: Patient Exam Limitations: No Limitations - History of Present Illness Initial Comments: 12/20/18 08:49 Pateint well known to this ER with daily visits; states fell last night when getting out of bed. Fell onto left knee. No other injury, denies head injury 12/20/18 08:56 Occurred: reports: this morning Severity: reports: mild, moderate Pain Location: reports: lower extremity (left knee) Past History - Travel Traveled outside of the country in the last 30 days: No Close contact w/someone who was outside of country & ill: No - Past Medical History Allergies/Adverse Reactions: Allergies Allergy/AdvReac Type Severity Reaction Status Date / Time levofloxacin [From Levaquin] Allergy Mild Itching Verified 12/20/18 08:16 Home Medications: Ambulatory Orders Apixaban [Eliquis] 2.5 mg PO BID 08/09/18 Atorvastatin Ca [Lipitor] 20 mg PO HS 08/09/18 Duloxetine HCl [Cymbalta -] 60 mg PO DAILY 08/09/18 Fluticasone/Salmeterol [Advair 250-50 Diskus] 1 each IH BID 08/09/18 Melatonin 5 mg PO HS 08/09/18 Sennosides [Senna] 8.6 mg PO HS 08/09/18 Amiodarone HCl [Cordarone -] 200 mg PO DAILY #30 tablet 08/20/18 Gabapentin [Neurontin -] 300 mg PO TID #30 capsule 08/20/18 Metoprolol Succinate [Toprol XL -] 25 mg PO DAILY #30 tab.sr.24h 08/20/18 Tramadol HCl 50 mg PO Q6H #12 tablet MDD 200mg 11/03/18 Albuterol Sulfate Inhaler - [Ventolin HFA Inhaler -] 1 - 2 inh PO Q4H PRN #1 inhaler 11/19/18 LORazepam [Ativan] 1 mg PO BID #14 tablet MDD 2 11/19/18 Lidocaine 5% Patch [Lidoderm -] 1 patch TP DAILY #7 patch 12/11/18 Acetaminophen [Tylenol .Regular Strength -] 650 mg PO Q4H PRN tablet 12/17/18 Amlodipine Besylate [Norvasc -] 10 mg PO DAILY tablet 12/17/18 Apixaban [Eliquis -] 2.5 mg PO BID tablet 12/17/18 Docusate Sodium [Colace -] 100 mg PO Q8H PRN capsule 12/17/18 Anemia: Yes Asthma: Yes Cancer: No Cardiac Disorders: Yes CVA: No COPD: Yes CHF: No DVT: No Dementia: No Diabetes: No Dialysis: Yes (ESRD AVF TO [facility]) GI Disorders: Yes (bleeding ulcer) Disorders: Yes (KIDNEY STONE;) HTN: Yes Hypercholesterolemia: Yes Kidney Stones: Yes Liver Disease: No Psychiatric Problems: Yes (ANXIETY, DEPRESSION) Seizures: No Thyroid Disease: Yes (hypothyroid) - Surgical History Abdominal Surgery: No Appendectomy: No Cardiac Surgery: No Cholecystectomy: No Lung Surgery: No Neurologic Surgery: No Orthopedic Surgery: Yes (B/L hip replacement (rt 2009; left 2012)) - Immunization History Td Vaccination: Yes TDAP Vaccination: No Immunization Up to Date: Yes - Suicide/Smoking/Psychosocial Hx Smoking Status: Yes Smoking History: Current every day smoker Years of Tobacco Use: 30 Have you smoked in the past 12 months: Yes Number of Cigarettes Smoked Daily: 3 If you are a former smoker, when did you quit?: refused booklet 07/21/14 Cigars Per Day: 0 Information on smoking cessation initiated: No 'Breaking Loose' booklet given: 08/09/18 Hx Alcohol Use: No Drug/Substance Use Hx: No Substance Use Type: None Hx Substance Use Treatment: Yes Trauma Specific PMHX - Complaint Specific PMHX Arthritis: Yes (with osteoporosis) Back Injury: No Review of Systems - Review of Systems Able to Perform ROS?: Yes Is the patient limited Nauruan proficient: Yes Constitutional: Yes: Symptoms Reported, See HPI, Malaise HEENTM: No: Symptoms Reported Respiratory: No: Symptoms reported Cardiac (ROS): No: Symptoms Reported Musculoskeletal: Yes: Symptoms Reported Integumentary: Yes: Symptoms Reported, See HPI, Bruising All Other Systems: Reviewed and Negative *Physical Exam - Vital Signs Last Vital Signs Temp Pulse Resp BP Pulse Ox 98.2 F 86 18 154/87 97 12/20/18 08:11 12/20/18 08:11 12/20/18 08:11 12/20/18 08:11 12/20/18 08:11 - Physical Exam General Appearance: Yes: Nourished, Appropriately Dressed, Mild Distress HEENT: positive: TEO, Normal ENT Inspection, TMs Normal, Pharynx Normal Neck: positive: Supple. negative: Tender Respiratory/Chest: positive: Lungs Clear Musculoskeletal: negative: Vertebral Tenderness Extremity: positive: Normal Capillary Refill. negative: Normal Range of Motion (pain and swelling with arthritic changes noted to right knee, has tenderness along medial and lateral malleolus and posterior fossa tenderness. Unwilling to bear weight and small movement reproduces verbalized pain. Ocular intact to foot., Crepitus or step-offs, patella is mobile) Integumentary: positive: Dry, Warm, Pale. negative: Bruising Neurologic: positive: thoracic medicine specialist II-XII NML intact, Fully Oriented, Alert, Normal Mood/ Affect, Normal Response, Motor Strength 5/5 Progress Note - Progress Note Progress Note: S/P fall with Knee contusion /sprain. Gaurav wrap applied, x-ray negative for fractures or dislocation, treated with Tylenol and will follow up with orthopedist *DC/Admit/Observation/Transfer Diagnosis at time of Disposition: Contusion Qualifiers: Encounter type: initial encounter Contusion area: knee Laterality: left Qualified Code(s): S80.02XA - Contusion of left knee, initial encounter Sprain of knee Qualifiers: Encounter type: initial encounter Involved ligament of knee: unspecified ligament Laterality: left Qualified Code(s): S83.92XA - Sprain of unspecified site of left knee, initial encounter - Discharge Dispostion Disposition: HOME Condition at time of disposition: Stable Decision to Admit order: No - Referrals Referrals: Josr Marinelli MD [Staff Physician] - - Patient Instructions Printed Discharge Instructions: DI for Knee Sprain Additional Instructions: Rest, ice to area on and off for 15 minutes 4-6 times a day Avoid heavy lifting or exercise until pain and swelling is resolved or until further directed Keep area highly elevated to reduce swelling Use splints/Gaurav wrap as directed Followup with orthopedist in one to 2 days if not improving, if significantly improved may wait one week for followup with orthopedist May use Tylenol 1 or 2- 500 mg tablets tablets every 6 hours as needed for pain - Post Discharge Activity
== END 2018-12-20 12:11 | disposition home or self-care (01) ==
LOC: JER 07:53
DX: S80.02XA Contusion of left knee, initial encounter (principal); S83.92XA Sprain of unspecified site of left knee, initial encounter; W06.XXXA Fall from bed, initial encounter; Y93.89 Activity, other specified; Y92.89 Other specified places as the place of occurrence of the external cause; I12.0 Hypertensive chronic kidney disease with stage 5 chronic kidney disease or end stage renal disease; N18.6 End stage renal disease; Z99.2 Dependence on renal dialysis; J44.9 Chronic obstructive pulmonary disease, unspecified; F41.8 Other specified anxiety disorders; F17.210 Nicotine dependence, cigarettes, uncomplicated; E03.9 Hypothyroidism, unspecified; E78.00 Pure hypercholesterolemia, unspecified; J45.909 Unspecified asthma, uncomplicated
CPT/HCPCS: 73562-TC-LT-FY; 99281-25

== ENCOUNTER 2018-12-22 16:22 | Inpatient (IN) | payer OTHER ==
--- NOTE | 2018-12-22 17:01 | PDOC ---
History of Present Illness - General Stated Complaint: DIFF. BREATHING Time Seen by Provider: 12/22/18 16:51 - History of Present Illness Initial Comments: 12/22/18 16:57 63 yo F with h/o A-fib, asthma/COPD, nicotine dependence, CKD dialysis RUE fistula ( HD //), HTN, DM, chronic lower back pain, CHF who p/w cough, SOB. Patient reports two days of exertional SOB, dyspnea at rest, and non productive cough. Also endorses diffuse chest tightness. Denies symptom improvement with duoneb use. Reports home oxygen ( unknown liters). Denies home lasix. Recent admission [facility] ED 12/13-12/18/18. Patient last dialysis session . Able to produce urine. Patient denies SANDERS, vision change, palpitations, orthopena, PND, leg swelling/ pain, N/V, F,C, urinary complaints, hematuria, BPR, abdominal pain, diarrhea, constipation, lightheadedness, weakness, sensory changes. PMHx: as noted above. Denies h/o ME, stent placement, CABG. ROS: as noted SHx: 1/ ppd 20 + years tobacco use. Denies Etoh, IVDA Allergies: NKDA Past History - Past Medical History Allergies/Adverse Reactions: Allergies Allergy/AdvReac Type Severity Reaction Status Date / Time levofloxacin [From Levaquin] Allergy Mild Itching Verified 12/20/18 08:16 Home Medications: Ambulatory Orders Apixaban [Eliquis] 2.5 mg PO BID 08/09/18 Atorvastatin Ca [Lipitor] 20 mg PO HS 08/09/18 Duloxetine HCl [Cymbalta -] 60 mg PO DAILY 08/09/18 Fluticasone/Salmeterol [Advair 250-50 Diskus] 1 each IH BID 08/09/18 Melatonin 5 mg PO HS 08/09/18 Sennosides [Senna] 8.6 mg PO HS 08/09/18 Amiodarone HCl [Cordarone -] 200 mg PO DAILY #30 tablet 08/20/18 Gabapentin [Neurontin -] 300 mg PO TID #30 capsule 08/20/18 Metoprolol Succinate [Toprol XL -] 25 mg PO DAILY #30 tab.sr.24h 08/20/18 Tramadol HCl 50 mg PO Q6H #12 tablet MDD 200mg 11/03/18 Albuterol Sulfate Inhaler - [Ventolin HFA Inhaler -] 1 - 2 inh PO Q4H PRN #1 inhaler 11/19/18 LORazepam [Ativan] 1 mg PO BID #14 tablet MDD 2 11/19/18 Lidocaine 5% Patch [Lidoderm -] 1 patch TP DAILY #7 patch 12/11/18 Acetaminophen [Tylenol .Regular Strength -] 650 mg PO Q4H PRN tablet 12/17/18 Amlodipine Besylate [Norvasc -] 10 mg PO DAILY tablet 12/17/18 Apixaban [Eliquis -] 2.5 mg PO BID tablet 12/17/18 Docusate Sodium [Colace -] 100 mg PO Q8H PRN capsule 12/17/18 Anemia: Yes Asthma: Yes Cancer: No Cardiac Disorders: Yes CVA: No COPD: Yes CHF: No DVT: No Dementia: No Diabetes: No Dialysis: Yes (ESRD AVF TO [facility]) GI Disorders: Yes (bleeding ulcer) Disorders: Yes (KIDNEY STONE;) HTN: Yes Hypercholesterolemia: Yes Kidney Stones: Yes Liver Disease: No Psychiatric Problems: Yes (ANXIETY, DEPRESSION) Seizures: No Thyroid Disease: Yes (hypothyroid) - Surgical History Abdominal Surgery: No Appendectomy: No Cardiac Surgery: No Cholecystectomy: No Lung Surgery: No Neurologic Surgery: No Orthopedic Surgery: Yes (B/L hip replacement (rt 2009; left 2012)) - Immunization History Td Vaccination: Yes TDAP Vaccination: No Immunization Up to Date: Yes - Suicide/Smoking/Psychosocial Hx Smoking Status: Yes Smoking History: Current every day smoker Years of Tobacco Use: 30 Have you smoked in the past 12 months: Yes Number of Cigarettes Smoked Daily: 3 If you are a former smoker, when did you quit?: refused booklet 07/21/14 Cigars Per Day: 0 'Breaking Loose' booklet given: 08/09/18 Hx Alcohol Use: No Drug/Substance Use Hx: No Substance Use Type: None Hx Substance Use Treatment: Yes Review of Systems - Review of Systems Comments:: 12/22/18 16:59 GENERAL/CONSTITUTIONAL: No fever or chills. No weakness. HEAD, EYES, EARS, NOSE AND THROAT: No change in vision. No ear pain or discharge. No sore throat. CARDIOVASCULAR:+ chest pain and shortness of breath RESPIRATORY: + cough, wheezing. No hemoptysis. GASTROINTESTINAL: No nausea, vomiting, diarrhea or constipation. GENITOURINARY: No dysuria, frequency, or change in urination. MUSCULOSKELETAL: No joint or muscle swelling or pain. No neck or back pain. SKIN: No rash NEUROLOGIC: No headache, vertigo, loss of consciousness, or change in strength/ sensation. ENDOCRINE: No increased thirst. No abnormal weight change HEMATOLOGIC/LYMPHATIC: No anemia, easy bleeding, or history of blood clots. ALLERGIC/IMMUNOLOGIC: No hives or skin allergy. *Physical Exam - Physical Exam Comments: 12/22/18 16:59 GENERAL: Awake, alert, and fully oriented, in no acute distress HEAD: + left forehead hematoma. Neg periorbital or postauricular ecchymosis. EYES: PERRLA, EOMI, sclera anicteric, conjunctiva clear ENT: Auricles normal inspection, hearing grossly normal, nares patent, oropharynx clear without exudates. Moist mucosa NECK: Normal ROM, supple, no lymphadenopathy, JVD, or masses LUNGS: + Diffuse coarse, rhoncorous lung sounds, diminished at BL LL bases, with rales. HEART: Regular rate and rhythm, normal S1 and S2, no murmurs, rubs or gallops, peripheral pulses normal and equal bilaterally. ABDOMEN: Soft, nontender, normoactive bowel sounds. No guarding, no rebound. No masses EXTREMITIES : + R AC fistula, with bruitNormal inspection, Normal range of motion, no edema. No clubbing or cyanosis NEUROLOGICAL: Cranial nerves II through XII grossly intact. Normal speech, no focal sensorimotor deficits SKIN: +right chest wall ecchymosis. Warm, Dry, normal turgor, no rashes or lesions noted Medical Decision Making - Medical Decision Making 12/22/18 17:18 63 yo F with h/o A-fib (on Eliquis), asthma/COPD, nicotine dependence, CKD dialysis RUE fistula ( HD //), HTN, DM, chronic lower back pain, CHF who p/ w cough, exertional SOB, chest tightness. BP 172/81, O2 90 % RA, 99 % 6 L O2. Physical exam notable for diffuse rhonci, and coarse lung sounds. ACS/ME r/o. Differential includes PNA, CHF exacerbation, asthma/COPD exacerbation. Ed Course: 12/22/18 17:40 EKG: NSR with absent IVONE, STD. + LAD, LVH. Nml interval duration. Nml R wave progression. Absent Q waves. 12/22/18 18:47 Patient reports falling yesterday when attempting to ambulate. Denies LOC. Pending CTH. 12/22/18 18:51 CXR: New bibasilar atelectasis Pt. pending labs, CTH. Patient stable, breathing improved. Dispo per labs, and CTH. Pt. endorsed to night team. *DC/Admit/Observation/Transfer Diagnosis at time of Disposition: Shortness of breath at rest - Discharge Dispostion Condition at time of disposition: Stable Decision to Admit order: Yes - Referrals - Patient Instructions Additional Instructions: Please return to the emergency department with any new or worsening symptoms or concerns. Please follow up with your primary care physician within 72 hours. - Post Discharge Activity
[2018-12-22] MEDS ORDERED: ALBUTEROL SO4 2.5/IPRATROPIUM 0.5 INH SOL 3 ML VIAL.NEB. NEB ONE ×2 (17:10→17:21)
[2018-12-22 17:18] VITALS: BMI 23.0
--- NOTE | 2018-12-22 17:46 | PDOC ---
Attending Attestation - Resident Resident Name: EliotVikashSilver - ED Attending Attestation I have performed the following: I have examined & evaluated the patient, The case was reviewed & discussed with the resident, I agree w/resident's findings & plan, Exceptions are as noted - HPI HPI: 12/22/18 17:44 63 F with afib, asthma/COPD, ESRD on HD T/Th/S, HTN, DM, CHF, presenting to ED with cough and SOB. Pt reports 2 days of SOB, VIVAR, and orthopnea. Pt also reports nonproductive cough. Endorses chest tightness but no pain. Used nebs at home without relief. Last HD was 2 days ago. - Physicial Exam PE: 12/22/18 17:45 Agree with resident exam - Medical Decision Making 12/22/18 17:45 63 F with SOB. rhonchorous lung sounds. CHF vs COPD vs PNA. - Labs, trop, BNP - CXR - Nebs
[2018-12-22 18:56] LABS: BASO % 0.6 % (0-2.0); EOS % 1.3 % (0-4.5); HEMATOCRIT 25.8 % (32.4-45.2); HEMOGLOBIN 8.6 GM/dL (10.7-15.3); MCHC 33.3 g/dl (32.0-36.0); MEAN CELL VOLUME 93.2 fl (80-96); MEAN PLT VOLUME 7.1 fl (7.5-11.1); MONO % 4.6 % (3.8-10.2); NEUT % 86.5 % (42.8-82.8); PLATELET COUNT 306 K/MM3 (134-434); RBC 2.77 M/mm3 (3.60-5.2); RDW 17.1 % (11.6-15.6); WHITE BLOOD COUNT 14.2 K/mm3 (4.0-10.0)
[2018-12-22 18:58] LABS: VENOUS PC02 37.9 mmHg (38-52); VENOUS PH 7.26 (7.31-7.41); VENOUS PO2 52.7 mmHg (28-48)
--- NOTE | 2018-12-22 19:05 | PDOC ---
*Physical Exam - Vital Signs Last Vital Signs Temp Pulse Resp BP Pulse Ox 98.8 F 90 20 172/81 H 99 12/22/18 17:15 12/22/18 17:15 12/22/18 17:15 12/22/18 17:15 12/22/18 17:15 - Physical Exam Comments: 12/22/18 19:20 Awake, alert, NAD Respiratory: B/L crackles Extremity: 2+ DP pulses, no LE edema ED Treatment Course - LABORATORY CBC & Chemistry Diagram: 12/22/18 18:40 12/22/18 18:40 - ADDITIONAL ORDERS Additional order review: Laboratory Results 12/22/18 18:40 VBG pH 7.26 L POC VBG pCO2 37.9 L POC VBG pO2 52.7 H VBG HCO3 16.4 L VBG O2 Sat (Tayla) 80.7 H VBG Base Excess -9.4 L 12/22/18 18:40 RBC 2.77 L MCV 93.2 MCHC 33.3 RDW 17.1 H MPV 7.1 L Neutrophils % 86.5 H Lymphocytes % 7.0 L D Monocytes % 4.6 Eosinophils % 1.3 Basophils % 0.6 - Medications Given in the ED: ED Medications Discontinued Medications Generic Name Dose Route Start Last Admin Trade Name Freq PRN Reason Stop Dose Admin Albuterol/Ipratropium 2 amp 12/22/18 17:10 12/22/18 17:24 Duoneb - NEB 12/22/18 17:11 2 amp ONCE ONE Administration Medical Decision Making - Medical Decision Making 12/22/18 19:04 Patient signed out by Dr. Mccabe (PGY-3) @ 1910 63 y/o female with a PMHx of COPD, CHF, AFib, ESRD (HD T/Th/Sat), HTN, IDDM, presents with 2 day h/o exertional dyspnea, chest tightness, non-productive cough. Also reports a fall yesterday with frontal hematoma. At presentation, SpO2 88% on RA; requiring 6 L NC S/p fall S/p Duo Nebs 12/22/18 19:19 Patient reassessed @ bedside, states she woke up on the floor overnight and her son helped her back to bed. No C-spine or midline L/T/S TTP. No noted neurologic deficit on exam. Breathing comfortably on 3L NC (home O2 level) Head CT pending 12/22/18 19:41 New bibasilar atelectasis on CXR Azithromycin for possible PNA 12/22/18 19:45 BNP elevated @ 32k+ (previous 12k) Mild hyponatremia (135) 12/22/18 20:03 Hospitalist paged for admission - presumptive COPD exacerbation vs. PNA 12/22/18 20:39 Case d/w Dr. Pompa, admitted OBS Telemetry Clinical Impression: COPD exacerbation vs. PNA *DC/Admit/Observation/Transfer Diagnosis at time of Disposition: Shortness of breath at rest - Discharge Dispostion Condition at time of disposition: Stable - Referrals - Patient Instructions - Post Discharge Activity
[2018-12-22 19:13] LABS: INR 1.21 (0.83-1.09); PROTHROMBIN TIME (PATIENT) 14.3 SEC (9.7-13.0)
[2018-12-22 19:32] LABS: ALBUMIN 3.2 g/dl (3.4-5.0); BILIRUBIN,TOTAL 0.8 mg/dL (0.2-1); BLOOD UREA NITROGEN 83.3 mg/dL (7-18); CREATININE 7.3 mg/dL (0.55-1.3); POTASSIUM 4.9 mmol/L (3.5-5.1); TOT PROT 6.5 g/dl (6.4-8.2)
--- NOTE | 2018-12-22 20:18 | PN ---
Teaching Attending Note Name of Resident: Noy Lo ATTENDING PHYSICIAN STATEMENT I saw and evaluated the patient. I reviewed the resident's note and discussed the case with the resident. I agree with the resident's findings and plan as documented. SUBJECTIVE: Patient is a 63 year old woman with PMH of Afib (on Eliquis), Asthma/COPD (on Home oxygen), Anxiety, Depression, Hypothyroidism, Tobacco use, ESRD on hemodialysis(/), HTN, NIDDM, Chronic lower back pain and CHF who presents with SOB and cough. Also reports two days of exertional SOB, dyspnea at rest, and cough productive of yellow sputum as well as diffuse chest tightness. Had subjective fever and chills. Denies symptom improvement with Duoneb use. Recent admission to [facility] 12/13-12/18/18 for a hematoma. Last hemodialysis session was on 12/20/18. Says she fell down 3 days ago and also fell out of bed. Uses a walker and a cane. Still makes some urine. Patient denies headache, vision change, palpitations, orthopena, PND, leg swelling/pain, nausea, vomiting, dysuria, hematuria, BPR, abdominal pain, diarrhea, constipation, lightheadedness , weakness or sensory changes. Denies alcohol or illicit drug use. No recent travels. OBJECTIVE: Alert Vital Signs Period Temp Pulse Resp BP Sys/Bills Pulse Ox Last 24 Hr 98.8 F 88-90 20-20 146-172/62-81 90-99 HEENT: No Jaundice, eye redness or discharge, PERRLA, EOMI. Normocephalic, atraumatic. External ears are normal and hearing is grossly intact. No nasal discharge. Neck: Supple, nontender. No palpable adenopathy or thyromegaly. No JVD Chest: Good effort. Expiratory wheezing. Clear to percussion. Heart: Regular. No S3, rub or murmur Abdomen: Not distended, soft, nontender and no HSM. No rebound or guarding. Normal bowel sounds. Ext: Peripheral pulses intact. No leg edema. Right upper arm AVF. Tender left calf. Skin: Warm and dry. No petechiae, rash or ecchymosis. Neuro: Alert. Oriented x3. CN 2-12 grossly intact. Sensation grossly intact in all four extremities and DTR are symmetric. Psych: Appropriate mood and affect. Good insight. Home Medications Medication Instructions Recorded Apixaban [Eliquis] 2.5 mg PO BID 08/09/18 Atorvastatin Ca [Lipitor] 20 mg PO HS 08/09/18 Duloxetine HCl [Cymbalta -] 60 mg PO DAILY 08/09/18 Fluticasone/Salmeterol [Advair 1 each IH BID 08/09/18 250-50 Diskus] Melatonin 5 mg PO HS 08/09/18 Sennosides [Senna] 8.6 mg PO HS 08/09/18 Amiodarone HCl [Cordarone -] 200 mg PO DAILY #30 tablet 08/20/18 Gabapentin [Neurontin -] 300 mg PO TID #30 capsule 08/20/18 Metoprolol Succinate [Toprol XL -] 25 mg PO DAILY #30 tab.sr.24h 08/20/18 Tramadol HCl 50 mg PO Q6H #12 tablet MDD 200mg 11/03/18 Albuterol Sulfate Inhaler - 1 - 2 inh PO Q4H PRN #1 inhaler 11/19/18 [Ventolin HFA Inhaler -] LORazepam [Ativan] 1 mg PO BID #14 tablet MDD 2 11/19/18 Lidocaine 5% Patch [Lidoderm -] 1 patch TP DAILY #7 patch 12/11/18 Acetaminophen [Tylenol .Regular 650 mg PO Q4H PRN tablet 12/17/18 Strength -] Amlodipine Besylate [Norvasc -] 10 mg PO DAILY tablet 12/17/18 Apixaban [Eliquis -] 2.5 mg PO BID tablet 12/17/18 Docusate Sodium [Colace -] 100 mg PO Q8H PRN capsule 12/17/18 Abnormal Lab Results 12/22/18 12/22/18 12/22/18 18:40 18:40 18:40 WBC 14.2 H RBC 2.77 L Hgb 8.6 L Hct 25.8 L RDW 17.1 H MPV 7.1 L Absolute Neuts (auto) 12.3 H Neutrophils % 86.5 H Lymphocytes % 7.0 L D PT with INR INR VBG pH POC VBG pCO2 POC VBG pO2 VBG HCO3 VBG O2 Sat (Tayla) VBG Base Excess Sodium 135 L Carbon Dioxide 19 L BUN 83.3 H Creatinine 7.3 H Alkaline Phosphatase 211 H B-Natriuretic Peptide 95150.7 H Albumin 3.2 L 12/22/18 12/22/18 18:40 18:40 WBC RBC Hgb Hct RDW MPV Absolute Neuts (auto) Neutrophils % Lymphocytes % PT with INR 14.30 H INR 1.21 H VBG pH 7.26 L POC VBG pCO2 37.9 L POC VBG pO2 52.7 H VBG HCO3 16.4 L VBG O2 Sat (Tayla) 80.7 H VBG Base Excess -9.4 L Sodium Carbon Dioxide BUN Creatinine Alkaline Phosphatase B-Natriuretic Peptide Albumin ASSESSMENT AND PLAN: 1. COPD exacerbation/Volume overload/Pneumonia? - CXR shows new atelectasis at the basis, cardiomegaly and unfolded aorta. ECHO from 12/16/18 showed LVEF of 60 % with normal LV size, thickness and function. Likely has underlying volume overload and will benefit from adequate dialytic fluid removal. EKG shows NSR with no significant ST-T wave changes and initial troponin is negative. Etiology of falls unclear - head CT pending. If initial head CT is negative, will repeat head CT in 24 hours since she is on Eliquis and recently had a hematoma in the RUE. Will get doppler scan and soft tissue ultrasound of LLE. Though inhaled steroid may partly explain leukocytosis, because of recent hospital stay, smoking history and ESRD, will treat for atypical pneumonia with Azithromcin and Rocephin. Send urine legionella antigen and consult ID. Will treat COPD exacerbation with prednisone 40 mg po qd and duoneb q 4 hours. Will continue comprehensive care of all her comorbid conditions including Eliquis for Afib. 2. Hypoalbuminemia - Possibly due to combined effects of malnutrition and inflammation associated with comorbid chronic conditions. Will ensure adequate dietary protein intake and also consult expansion envelope maker hand. 3. Tobacco Use Counseled on risks associated with tobacco use. We will provide patient all the necessary assistance to facilitate smoking cessation and prescribe Nicotine patch. 4. Anemia - Likely partly due to ESRD. Will do basic anemia work up including serial stool guaiacs, reticulocyte count and iron studies. Would benefit from Procrit therapy once iron replete. 5. Hypertension - Restart suitable outpatient antihypertensive drugs when clinically appropriate. 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 Nonpharmacologic measures to control hypertension like weight loss , salt restriction and exercise discussed. Importance of adherence to treatment regimen and attainment of normotension emphasized. 6. DM For now, we will hold the home diabetes drugs and implement sliding scale insulin regimen. Provide comprehensive diabetes care with patient teaching and counseling about the importance of adherence to prescribed diabetes regimen, euglycemia, eye care and foot care. 7. DVT prophylaxis - On Eliquis for Afib. 8. Advance directives - Full code
[2018-12-22] MEDS ORDERED: INSULIN SLIDING SCALE (NOVOLOG) 1 VIAL SQ SCH (22:00)
[2018-12-22] MEDS ORDERED: HEPARIN NA (PORCINE) 5,000 UNITS/ML 1ML VIAL SQ SCH (22:00)
[2018-12-22] MEDS ORDERED: DOCUSATE SODIUM 100 MG CAPSULE (FP) PO PRN (22:12)
--- NOTE | 2018-12-22 22:55 | HP ---
CHIEF COMPLAINT: shortness of breath PCP: unclear, needs adequate f/u HISTORY OF PRESENT ILLNESS: Jo Matamoros is a 63 year old female with a past medical history of afib (on Elliquis and amiodarone), asthma, COPD (has home oxygen however stated she does not use it), ESRD (dialysis T/Th/Sat via RUE fistula), CHF (not on Lasix, previous echo 12/16 EF 60%), HTN, anemia, lower back pain, anxiety, depression who is presenting with 2 days of shortness of breath. The patient had been having her regular dialysis sessions since her previous admission on 12/13-12/18 for RUE hematoma. She stated that she had been having some difficulty breathing but has gotten worse over the last 2 days. She endorses additional subjective fever and chills, chest pressure, productive cough of yellow sputum. She states that the shortness of breath is alleviated with her home albuterol but is present during the day and worse with exertion. She uses 1 pillow to sleep at night. Additionally, the patient states that she has had 2 falls out of bed in the last several days which resulted in left lower extremity pain and bruising. Denies any prodromal symptoms prior to the falls out of bed and only states that she accidentally falls out of bed due to generalized weakness. Additionally , she complains of back pain. She denies headaches, visual changes, auditory changes, nausea, vomiting, abdominal pain, dysuria, hesitancy, urgency, incomplete emptying, numbness, tingling, focal weakness, peripheral edema. Ambulated with a walker at home and a cane outside. ER course was notable for: (1) WBC 14.2 with 86.5% neutrophils, Hgb 8.6, BNP 63338 (2) hypertensive 172/81 (3) CXR with bibasilar atelectasis (4) given Duoneb in ED Recent Travel: denies PAST MEDICAL HISTORY: as above PAST SURGICAL HISTORY: Bilateral hip replacement Social History: Smokin/3 PPD for last 20 years Alcohol: occasional social, rarely Drugs: denies Family History: Mother- HTN Allergies levofloxacin [From Levaquin] Allergy (Mild, Verified 12/22/18 19:08) Itching HOME MEDICATIONS: Home Medications Medication Instructions Recorded Apixaban [Eliquis] 2.5 mg PO BID 08/09/18 Atorvastatin Ca [Lipitor] 20 mg PO HS 08/09/18 Duloxetine HCl [Cymbalta -] 60 mg PO DAILY 08/09/18 Fluticasone/Salmeterol [Advair 1 each IH BID 08/09/18 250-50 Diskus] Melatonin 5 mg PO HS 08/09/18 Sennosides [Senna] 8.6 mg PO HS 08/09/18 Amiodarone HCl [Cordarone -] 200 mg PO DAILY #30 tablet 08/20/18 Gabapentin [Neurontin -] 300 mg PO TID #30 capsule 08/20/18 Metoprolol Succinate [Toprol XL -] 25 mg PO DAILY #30 tab.sr.24h 08/20/18 Tramadol HCl 50 mg PO Q6H #12 tablet MDD 200mg 11/03/18 Albuterol Sulfate Inhaler - 1 - 2 inh PO Q4H PRN #1 inhaler 11/19/18 [Ventolin HFA Inhaler -] LORazepam [Ativan] 1 mg PO BID #14 tablet MDD 2 11/19/18 Lidocaine 5% Patch [Lidoderm -] 1 patch TP DAILY #7 patch 12/11/18 Acetaminophen [Tylenol .Regular 650 mg PO Q4H PRN tablet 12/17/18 Strength -] Amlodipine Besylate [Norvasc -] 10 mg PO DAILY tablet 12/17/18 Apixaban [Eliquis -] 2.5 mg PO BID tablet 12/17/18 Docusate Sodium [Colace -] 100 mg PO Q8H PRN capsule 12/17/18 REVIEW OF SYSTEMS CONSTITUTIONAL: fever, chills, generalized weakness Absent: diaphoresis, malaise, loss of appetite, weight change HEENT: nasal congestion Absent: rhinorrhea, throat pain, throat swelling, difficulty swallowing, visual changes CARDIOVASCULAR: chest pressure Absent: chest pain, syncope, palpitations, irregular heart rate, lightheadedness , peripheral edema RESPIRATORY: cough, shortness of breath, dyspnea with exertion, orthopnea, wheezing Absent: stridor, hemoptysis GASTROINTESTINAL: Absent: abdominal pain, abdominal distension, nausea, vomiting, diarrhea, constipation, melena, GENITOURINARY: Absent: dysuria, frequency, urgency, hesitancy, hematuria, flank pain MUSCULOSKELETAL: back pain Absent: myalgia, arthralgia, joint swelling, neck pain SKIN: Absent: rash, itching, pallor HEMATOLOGIC/IMMUNOLOGIC: Absent: easy bleeding, easy bruising, lymphadenopathy, frequent infections ENDOCRINE: Absent: unexplained weight gain, unexplained weight loss, heat intolerance, cold intolerance NEUROLOGIC: Absent: headache, focal weakness or paresthesias, dizziness, unsteady gait, seizure, mental status changes, bladder or bowel incontinence PSYCHIATRIC: Absent: anxiety, depression, suicidal or homicidal ideation, hallucinations. PHYSICAL EXAMINATION Vital Signs - 24 hr 12/22/18 12/22/18 12/22/18 17:10 17:15 19:26 Temperature 98.8 F Pulse Rate 90 Pulse Rate [ 88 Left Radial] Respiratory 20 20 Rate Blood Pressure 172/81 H Blood Pressure 146/62 [Left Arm] O2 Sat by Pulse 90 L 99 98 Oximetry (%) GENERAL: Awake, alert, and fully oriented, in mild acute distress. HEAD: Normal with no signs of trauma. EYES: Pupils equal, round and reactive to light, extraocular movements intact, sclera anicteric, conjunctiva clear. EARS, NOSE, THROAT: nares with clear discharge, oropharynx with yellow mucus present. Moist mucous membranes. NECK: Normal range of motion, supple without lymphadenopathy, JVD. LUNGS: Coarse breath sounds heard throughout, congestion with crackles heard in R lower lobe, expiratory wheezes heard bilaterally. No accessory muscle use HEART: Regular rate and rhythm, normal S1 and S2 without holosystolic 3/6 murmur prominently at the 5th intercostal midclavicular space ABDOMEN: Soft, nontender, not distended, normoactive bowel sounds, no guarding, no rebound, no masses. MUSCULOSKELETAL: Normal range of motion at all joints. No bony deformities or tenderness. UPPER EXTREMITIES: 2+ pulses, warm, well-perfused. No cyanosis. No clubbing. No peripheral edema. RUE fistula noted with palpable thrill and audible bruit. LOWER EXTREMITIES: 2+ pulses, warm, well-perfused. No calf tenderness. No peripheral edema. NEUROLOGICAL: Cranial nerves II-XII intact. Muscle strength intact, 5/5 upper extremities, 4/5 lower extremities limited exam due to pain. PSYCHIATRIC: Cooperative. Good eye contact. Appropriate mood and affect. SKIN: Warm, dry, normal turgor, no rashes or lesions noted, normal capillary refill. Laboratory Results - last 24 hr 12/22/18 12/22/18 12/22/18 18:40 18:40 18:40 WBC 14.2 H RBC 2.77 L Hgb 8.6 L Hct 25.8 L MCV 93.2 MCH 31.0 MCHC 33.3 RDW 17.1 H Plt Count 306 MPV 7.1 L Absolute Neuts (auto) 12.3 H Neutrophils % 86.5 H Lymphocytes % 7.0 L D Monocytes % 4.6 Eosinophils % 1.3 Basophils % 0.6 Nucleated RBC % 0 PT with INR INR VBG pH POC VBG pCO2 POC VBG pO2 VBG HCO3 VBG O2 Sat (Tayla) VBG Base Excess Sodium 135 L Potassium 4.9 Chloride 105 Carbon Dioxide 19 L Anion Gap 11 BUN 83.3 H Creatinine 7.3 H Est GFR (CKD-EPI)AfAm 6.37 Est GFR (CKD-EPI)NonAf 5.49 Random Glucose 91 Calcium 9.0 Total Bilirubin 0.8 AST 32 ALT 40 Alkaline Phosphatase 211 H Creatine Kinase 41 Troponin I 0.02 B-Natriuretic Peptide 20278.7 H Total Protein 6.5 Albumin 3.2 L 12/22/18 12/22/18 18:40 18:40 WBC RBC Hgb Hct MCV MCH MCHC RDW Plt Count MPV Absolute Neuts (auto) Neutrophils % Lymphocytes % Monocytes % Eosinophils % Basophils % Nucleated RBC % PT with INR 14.30 H INR 1.21 H VBG pH 7.26 L POC VBG pCO2 37.9 L POC VBG pO2 52.7 H VBG HCO3 16.4 L VBG O2 Sat (Tayla) 80.7 H VBG Base Excess -9.4 L Sodium Potassium Chloride Carbon Dioxide Anion Gap BUN Creatinine Est GFR (CKD-EPI)AfAm Est GFR (CKD-EPI)NonAf Random Glucose Calcium Total Bilirubin AST ALT Alkaline Phosphatase Creatine Kinase Troponin I B-Natriuretic Peptide Total Protein Albumin EKG--> NSR, left axis deviation, LVH criteria as per aVL, age indeterminate septal infarct (unchanged from previous EKG), QTc 431 ASSESSMENT/PLAN: Jo Matamoros is a 63 year old female with a past medical history of afib (on Elliquis and amiodarone), asthma, COPD, ESRD (dialysis T//Sat via RUE fistula) , CHF (not on Lasix, previous echo 12/16 EF 60%), HTN, anemia, lower back pain, anxiety, depression admitted for a COPD exacerbation likely secondary to PNA. COPD Exacerbation PNA ESRD Mechanical Fall Afib HTN HLD Anxiety/Depression Tobacco Use Disorder Anemia COPD Exacerbation - likely secondary to PNA - Duoneb qid and q4h prn - prednisone 40mg daily - Azithromycin/ceftriaxone - continue O2 as needed and titrate O2 88-92% - continue home fluticasone - Previous Echo 12/16/18 showing EF 60%, LV normal, elevated RV systolic pressures, mitral regurgitation - BNP elevated 20178, possible component of volume overload, will receive dialysis for possible fluid overload PNA - WBC 14.2, could be elevated in the setting of infection vs fluticasone - CXR noting changes with bibasilar atelectasis, possible congestion of pulmonary vasculature - ceftriaxone 1g daily - azithromycin 500mg daily - sputum cultures - legionella/strep urine antigens - continue to monitor for continued signs of infection fevers and WBC - note allergy to levofloxacin - ID consulted ESRD - dialysis T,Th,Sat - nephrology consulted, Dr. Coe - likely dialysis tomorrow Mechanical Fall - likely secondary to weakness from COPD and PNA - ambulate with assist - PT ordered - CT head with no acute intracranial pathology and no hemorrhage - repeat head CT in 24 hours as patient on Eliquis - LLE x-rays - LLE doppler/soft tissue negative for DVT or hematoma, positive for Guzman's cyst - gabapentin 300mg tid for pain - tylenol and tramadol prn for pain Afib - continue Eliquis, if noted hematomas or bleeding low threshold to hold especially in setting of current rhythm control, sinus rhythm - continue home amiodarone HTN - continue home toprol and norvasc HLD - continue home Lipitor Anxiety/Depression - continue home Cymbalta Tobacco Use Disorder - nicotine patch - encourage patient to quit especially in the setting of multiple medical comorbidities Anemia - likely from ESRD - basic anemia workup, reticulocytes, iron studies, ferritin FEN - no standing fluids in setting of CHF and ESRD - continue to monitor electrolytes and replete as necessary, watch phosphorus, potassium, calcium, sodium - renal, sodium controlled diet Prophylaxis - on Eliquis 2.5mg, adjusted for CRE and weight Code - full code KINDRA CHA DO - PGY-1 Visit type - Emergency Visit Emergency Visit: Yes ED Registration Date: 12/22/18 Care time: The patient presented to the Emergency Department on the above date and was hospitalized for further evaluation of their emergent condition. - New Patient This patient is new to me today: Yes Date on this admission: 12/23/18 - Critical Care Critical Care patient: No
[2018-12-22] MEDS ORDERED: CEFTRIAXONE 1 GM/50 ML BAG ONE (23:45)
[2018-12-23] MEDS: CEFTRIAXONE 1 GM in DEXTROSE 5%-WATER - 50 ML IVPB SCH ×2 (00:09→11:04)
[2018-12-23] MEDS ORDERED: HEPARIN NA (PORCINE) 5,000 UNITS/ML 1ML VIAL ONE (00:10)
[2018-12-23] MEDS ORDERED: traMADol HCL 50 MG TABLET ONE ×2 (00:32→15:47)
[2018-12-23] MEDS ORDERED: MELATONIN 5 MG TABLETS PO ONE (00:38)
[2018-12-23] MEDS: traMADol HCL 50 MG TABLET PO PRN ×2 (00:39→15:52)
[2018-12-23] MEDS: ALBUTEROL SO4 0.083% IH SOL 2.5 MG/3 ML VIAL.NEB. NEB PRN (01:24)
[2018-12-23] MEDS ORDERED: AZITHROMYCIN IVPB 500 MG/250 ML BAG IVPB ONE ×2 (01:29→11:01)
[2018-12-23] MEDS: AZITHROMYCIN IVPB 500 MG in DEXTROSE 5%-WATER - 250 ML IVPB SCH ×2 (01:35→02:00)
[2018-12-23] MEDS ORDERED: LORazepam 1 MG TABLET PO ONE (02:48)
[2018-12-23] MEDS ORDERED: LORazepam 0.5 MG TABLET ONE (03:31)
[2018-12-23] MEDS: AZITHROMYCIN IVPB 500 MG in DEXTROSE 5%-WATER - 250 ML IVPB ONE ×2 (05:34→05:49)
[2018-12-23] MEDS ORDERED: HALOPERIDOL LACTATE 5 MG/ML IM ONE (05:56)
[2018-12-23] MEDS ORDERED: HALOPERIDOL LACTATE 5 MG/ML ONE (05:56)
[2018-12-23] MEDS ORDERED: GABAPENTIN 100 MG CAPSULE (FP) ONE (06:09)
[2018-12-23] MEDS: GABAPENTIN 300 MG CAPSULE (FP) PO SCH ×3 (06:11→23:00)
[2018-12-23] MEDS: ALBUTEROL SO4 2.5/IPRATROPIUM 0.5 INH SOL 3 ML VIAL.NEB. NEB SCH ×4 (08:04→23:00)
[2018-12-23] MEDS ORDERED: LIDOCAINE 5% TOPICAL PATCH TP SCH (10:00)
[2018-12-23] MEDS ORDERED: AZITHROMYCIN IVPB 500 MG/250 ML BAG IVPB SCH (10:00)
[2018-12-23] MEDS ORDERED: predniSONE 20 MG TABLET (UD) PO SCH (10:00)
[2018-12-23] MEDS: AMIODARONE HCL 200 MG TABLET (FP) PO SCH (10:55)
[2018-12-23] MEDS: DULoxetine HCL 30 MG CAPSULE.DR PO SCH (10:56)
[2018-12-23] MEDS: LIDOCAINE 5% TOPICAL PATCH TP SCH (10:57)
[2018-12-23] MEDS: amLODIPine BESYLATE 10 MG TABLET (FP) PO SCH (10:57)
[2018-12-23] MEDS: APIXABAN 2.5 MG TABLET PO SCH ×2 (10:57→23:00)
[2018-12-23] MEDS: NICOTINE 7 MG/24 HOURS TOPICAL PATCH TD SCH (10:57)
[2018-12-23] MEDS: metoPROLOL SUCCINATE 25 MG TAB.SR.24H (FP) PO SCH (10:58)
[2018-12-23] MEDS ORDERED: CEFTRIAXONE 1 GM/50 ML BAG ONE (11:01)
[2018-12-23] MEDS ORDERED: SODIUM CHLORIDE 250 ML IV PRN (12:35)
--- NOTE | 2018-12-23 12:35 | CONSULT ---
Consult Consult Specialty:: Nephrology Reason for Consultation:: esrd - History of Present Illness Chief Complaint: cough History of Present Illness: Pt is a 63 year old female with pmhx of a-fib, asthma, copd, esrd, dm, and chf who presents with shortness of breath and cough. She denies fevers or chills. She says that she is due for HD today. She was recently discharged from the [facility]. - History Source History Provided By: Patient - Past Medical History INSTALLER: Yes: Peripheral Neuropathy Cardio/Vascular: Yes: HTN, Hyperlipdemia Pulmonary: Yes: Asthma, Bronchitis, COPD, Pneumonia Gastrointestinal: Yes: Gastritis Renal/: Yes: Renal Inusuff, Hemodialysis ...LMP: 07/25/12 Infectious Disease: Yes: MRSA Psych: Yes: Anxiety, Depression Musculoskeletal: Yes: Chronic low back pain Endocrine: Yes: Hyperthyroidism - Past Surgical History Past Surgical History: Yes: AV Fistula/Graft, Joint Replacement (hip replacement ) - Alcohol/Substance Use Hx Alcohol Use: No History of Substance Use: reports: Marijuana - Smoking History Smoking history: Current every day smoker Have you smoked in the past 12 months: Yes Aproximately how many cigarettes per day: 3 If you are a former smoker, when did you quit?: refused booklet 07/21/14 - Social History Usual Living Arrangement: With Child ADL: Independent Occupation: not working, SSI History of Recent Travel: No Home Medications - Allergies Allergies/Adverse Reactions: Allergies Allergy/AdvReac Type Severity Reaction Status Date / Time levofloxacin [From Levaquin] Allergy Mild Itching Verified 12/22/18 19:08 - Home Medications Home Medications: Ambulatory Orders Apixaban [Eliquis] 2.5 mg PO BID 08/09/18 Atorvastatin Ca [Lipitor] 20 mg PO HS 08/09/18 Duloxetine HCl [Cymbalta -] 60 mg PO DAILY 08/09/18 Fluticasone/Salmeterol [Advair 250-50 Diskus] 1 each IH BID 08/09/18 Melatonin 5 mg PO HS 08/09/18 Sennosides [Senna] 8.6 mg PO HS 08/09/18 Amiodarone HCl [Cordarone -] 200 mg PO DAILY #30 tablet 08/20/18 Gabapentin [Neurontin -] 300 mg PO TID #30 capsule 08/20/18 Metoprolol Succinate [Toprol XL -] 25 mg PO DAILY #30 tab.sr.24h 08/20/18 Tramadol HCl 50 mg PO Q6H #12 tablet MDD 200mg 11/03/18 Albuterol Sulfate Inhaler - [Ventolin HFA Inhaler -] 1 - 2 inh PO Q4H PRN #1 inhaler 11/19/18 LORazepam [Ativan] 1 mg PO BID #14 tablet MDD 2 11/19/18 Lidocaine 5% Patch [Lidoderm -] 1 patch TP DAILY #7 patch 12/11/18 Acetaminophen [Tylenol .Regular Strength -] 650 mg PO Q4H PRN tablet 12/17/18 Amlodipine Besylate [Norvasc -] 10 mg PO DAILY tablet 12/17/18 Apixaban [Eliquis -] 2.5 mg PO BID tablet 12/17/18 Docusate Sodium [Colace -] 100 mg PO Q8H PRN capsule 12/17/18 Family Disease History - Family Disease History Family Disease History: Other: Father (alive), Mother (alive), Sister (alive), Son (23 yo old - alive - healthy) Review of Systems - Review of Systems Constitutional: reports: Malaise. denies: Chills, Fever HENT: reports: No Symptoms Cardiovascular: reports: No Symptoms, Shortness of Breath Respiratory: reports: Cough, SOB, SOB on Exertion Musculoskeletal: reports: No Symptoms Neurological: reports: No Symptoms Endocrine: reports: No Symptoms Hematology/Lymphatic: reports: No Symptoms Physical Exam Vital Signs: Vital Signs Temperature 98.5 F 12/23/18 08:00 Pulse Rate 88 12/23/18 08:00 Respiratory Rate 20 12/23/18 08:00 Blood Pressure 147/68 12/23/18 08:00 O2 Sat by Pulse Oximetry (%) 98 12/23/18 04:09 Constitutional: Yes: Calm Eyes: Yes: Conjunctiva Clear HENT: Yes: Atraumatic Neck: Yes: Supple Cardiovascular: Yes: S1, S2 Respiratory: Yes: On Nasal O2, Wheezes Gastrointestinal: Yes: Soft Renal/: Yes: WNL Musculoskeletal: Yes: WNL Edema: Yes Edema: LLE: Trace, RLE: Trace Neurological: Yes: Oriented Psychiatric: Yes: Oriented Labs: CBC, BMP 12/22/18 18:40 12/22/18 18:40 Imaging - Results Chest X-ray: Report Reviewed Problem List - Problems (1) COPD (chronic obstructive pulmonary disease) Code(s): J44.9 - CHRONIC OBSTRUCTIVE PULMONARY DISEASE, UNSPECIFIED Qualifiers: COPD type: unspecified COPD Qualified Code(s): J44.9 - Chronic obstructive pulmonary disease, unspecified (2) ESRD (end stage renal disease) Code(s): N18.6 - END STAGE RENAL DISEASE Assessment/Plan Current Medications Generic Name Dose Route Start Last Admin Trade Name Freq PRN Reason Stop Dose Admin Acetaminophen 650 mg 12/22/18 22:12 Tylenol - PO Q4H PRN PAIN LEVEL 1-5 Albuterol Sulfate 1 amp 12/22/18 22:08 12/23/18 01:24 Ventolin 0.083% Nebulizer Soln - NEB 1 amp Q4H PRN Administration SHORT OF BREATH/WHEEZING Albuterol/Ipratropium 1 amp 12/23/18 08:00 Duoneb - NEB RQID JACKY Amiodarone HCl 200 mg 12/23/18 10:00 12/23/18 10:55 Cordarone - PO 200 mg DAILY JACKY Administration Amlodipine Besylate 10 mg 12/23/18 10:00 12/23/18 10:57 Norvasc - PO 10 mg DAILY JACKY Administration Apixaban 2.5 mg 12/23/18 10:00 12/23/18 10:57 Eliquis - PO 2.5 mg BID JACKY Administration Atorvastatin Calcium 20 mg 12/23/18 22:00 Lipitor - PO HS JACKY Docusate Sodium 100 mg 12/22/18 22:12 Colace - PO Q8H PRN CONSTIPATION Duloxetine HCl 60 mg 12/23/18 10:00 12/23/18 10:56 Cymbalta - PO 60 mg DAILY JACKY Administration Gabapentin 300 mg 12/23/18 06:00 12/23/18 06:11 Neurontin - PO 300 mg TID JACKY Administration Ceftriaxone Sodium 1 gm/ 50 mls @ 100 mls/hr 12/22/18 22:30 12/23/18 11:04 Dextrose IVPB 100 mls/hr DAILY JACKY Administration Protocol Azithromycin 500 mg in 250 mls @ 250 mls/hr 12/23/18 10:00 12/23/18 11:04 Zithromax 500mg Ivpb (Pre-Docked) IVPB 12/24/18 10:59 250 mls/hr DAILY JACKY Administration Lidocaine 1 patch 12/23/18 10:00 12/23/18 10:57 Lidoderm Patch - TP 1 patch DAILY JACKY Administration Metoprolol Succinate 25 mg 12/23/18 10:00 12/23/18 10:58 Toprol Xl - PO 25 mg DAILY JACKY Administration Miscellaneous 1 each 12/23/18 22:00 Lidoderm Patch Removal MC DAILY@2200 JACKY Nicotine 7 mg 12/23/18 10:00 12/23/18 10:57 Nicoderm Patch - TD 7 mg DAILY JACKY Administration Prednisone 40 mg 12/23/18 10:00 12/23/18 10:56 Deltasone - PO 40 mg DAILY JACKY Administration Senna 1 tab 12/23/18 22:00 Senna - PO HS JACKY Tramadol HCl 50 mg 12/22/18 22:15 12/23/18 00:39 Ultram - PO 50 mg Q6H PRN Administration PAIN LEVEL 6-10 Impression 1. ESRD 2. non compliance with HD schedule 3. chronic back pain 4. anemia 5. anxiety 6. hx of nsaid use 7. chf diastolic 8. possible complex renal cyst 9. HLD 10. nephrolithiasis 11. 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 hematoma of right axilla Plan - will arrange for HD today - cont steroids - epogen for anemia - renal diet - smoking cessation
--- NOTE | 2018-12-23 12:44 | EKG ---
Test Reason : Blood Pressure : / mmHG Vent. Rate : 098 BPM Atrial Rate : 098 BPM P-R Int : 178 ms QRS Dur : 094 ms QT Int : 338 ms P-R-T Axes : 046 -35 090 degrees QTc Int : 431 ms NORMAL SINUS RHYTHM LEFT AXIS DEVIATION MINIMAL VOLTAGE CRITERIA FOR LVH, MAY BE NORMAL VARIANT SEPTAL INFARCT (CITED ON OR BEFORE 22-DEC-2018) ABNORMAL ECG WHEN COMPARED WITH ECG OF 13-DEC-2018 09:03, PREMATURE ATRIAL COMPLEXES ARE NO LONGER PRESENT Confirmed by Yung Perez MD ([id number]) on 12/23/2018 12:44:17 PM Referred By: Confirmed By:Yung Perez MD
--- NOTE | 2018-12-23 13:35 | PN ---
Progress Note, Physician Chief Complaint: shortness of breath History of Present Illness: stop prednisone and start solumedrol, has increased congestion bilaterally, breathing rate 26 duonebs scheduled apply 2 liters of nasal cannula pulm consult Patient is a 63 year old female with a past medical history of asthma, ESRD on HD, chronic LBP, anxiety, tobacco dependence, HTN, afib (on amiodarone and eliquis). She presents to the Ed for acute shortness of breath and chest discomfort. chest xray: new bibasilar changes - Current Medication List Current Medications: Active Medications Acetaminophen (Tylenol -) 650 mg PO Q4H PRN PRN Reason: PAIN LEVEL 1-5 Albuterol Sulfate (Ventolin 0.083% Nebulizer Soln -) 1 amp NEB Q4H PRN PRN Reason: SHORT OF BREATH/WHEEZING Last Admin: 12/23/18 01:24 Dose: 1 amp Albuterol/Ipratropium (Duoneb -) 1 amp NEB RQID JACKY Amiodarone HCl (Cordarone -) 200 mg PO DAILY [facility] Last Admin: 12/23/18 10:55 Dose: 200 mg Amlodipine Besylate (Norvasc -) 10 mg PO DAILY [facility] Last Admin: 12/23/18 10:57 Dose: 10 mg Apixaban (Eliquis -) 2.5 mg PO BID [facility] Last Admin: 12/23/18 10:57 Dose: 2.5 mg Atorvastatin Calcium (Lipitor -) 20 mg PO HS [facility] Docusate Sodium (Colace -) 100 mg PO Q8H PRN PRN Reason: CONSTIPATION Duloxetine HCl (Cymbalta -) 60 mg PO DAILY [facility] Last Admin: 12/23/18 10:56 Dose: 60 mg Epoetin Zachery (Procrit -) 10,000 unit IVPUSH ONCE ONE Stop: 12/23/18 12:36 Gabapentin (Neurontin -) 300 mg PO TID [facility] Last Admin: 12/23/18 06:11 Dose: 300 mg Ceftriaxone Sodium 1 gm/ (Dextrose) 50 mls @ 100 mls/hr IVPB DAILY [facility]; Protocol Last Admin: 12/23/18 11:04 Dose: 100 mls/hr Azithromycin (Zithromax 500mg Ivpb (Pre-Docked)) 500 mg in 250 mls @ 250 mls/ hr IVPB DAILY [facility] Stop: 12/24/18 10:59 Last Admin: 12/23/18 11:04 Dose: 250 mls/hr Sodium Chloride (Normal Saline -) 250 mls @ 3,000 mls/hr IV PRN PRN PRN Reason: Hypotension during Dialysis Stop: 12/24/18 12:35 Lidocaine (Lidoderm Patch -) 1 patch TP DAILY [facility] Last Admin: 12/23/18 10:57 Dose: 1 patch Methylprednisolone Sodium Succinate (Solu-Medrol -) 40 mg IVPUSH Q6H-IV JACKY Metoprolol Succinate (Toprol Xl -) 25 mg PO DAILY [facility] Last Admin: 12/23/18 10:58 Dose: 25 mg Miscellaneous (Lidoderm Patch Removal) 1 each MC DAILY@2200 [facility] Nicotine (Nicoderm Patch -) 7 mg TD DAILY [facility] Last Admin: 12/23/18 10:57 Dose: 7 mg Senna (Senna -) 1 tab PO HS JACKY Tramadol HCl (Ultram -) 50 mg PO Q6H PRN PRN Reason: PAIN LEVEL 6-10 Last Admin: 12/23/18 00:39 Dose: 50 mg - Objective Vital Signs: Vital Signs Temperature 98.5 F 12/23/18 08:00 Pulse Rate 88 12/23/18 08:00 Respiratory Rate 20 12/23/18 08:00 Blood Pressure 147/68 12/23/18 08:00 O2 Sat by Pulse Oximetry (%) 98 12/23/18 04:09 Constitutional: Yes: No Distress, Calm Eyes: Yes: WNL HENT: Yes: Other (black/purple bruise on forehead. pt states she fell at home. head ct negative.) Neck: Yes: Supple Cardiovascular: Yes: Regular Rate and Rhythm Respiratory: Yes: Accessory Muscle Use, Cough, Diminished, Poor Air Entry, Rhonchi Gastrointestinal: Yes: Normal Bowel Sounds ...Rectal Exam: Yes: WNL Musculoskeletal: Yes: Back Pain Edema: No Integumentary: Yes: WNL Neurological: Yes: WNL ...Motor Strength: WNL Psychiatric: Yes: Alert, Oriented Labs: CBC, BMP 12/22/18 18:40 12/22/18 18:40 INR, PTT INR 1.21 (0.83-1.09) H 12/22/18 18:40 Problem List - Problems (1) Acute on chronic kidney failure Assessment/Plan: for dialysis today right upper arm fistula renal following Code(s): N17.9 - ACUTE KIDNEY FAILURE, UNSPECIFIED; N18.9 - CHRONIC KIDNEY DISEASE, UNSPECIFIED Qualifiers: Acute renal failure type: unspecified Chronic kidney disease stage: stage 4 (severe) Qualified Code(s): N17.9 - Acute kidney failure, unspecified; N18.4 - Chronic kidney disease, stage 4 (severe) (2) COPD (chronic obstructive pulmonary disease) Assessment/Plan: start on solumedrol taper duonebs scheduled supplemental oxygen pulmonary consulted Code(s): J44.9 - CHRONIC OBSTRUCTIVE PULMONARY DISEASE, UNSPECIFIED Qualifiers: COPD type: unspecified COPD Qualified Code(s): J44.9 - Chronic obstructive pulmonary disease, unspecified (3) Shortness of breath at rest Code(s): R06.02 - SHORTNESS OF BREATH (4) Hypertension Assessment/Plan: continue toprol and norvasc Code(s): I10 - ESSENTIAL (PRIMARY) HYPERTENSION Qualifiers: Hypertension type: essential hypertension Qualified Code(s): I10 - Essential (primary) hypertension (5) Arm pain, right Assessment/Plan: s/p hematoma on last admission. hematoma size improving Code(s): M79.601 - PAIN IN RIGHT ARM (6) Atrial fibrillation Assessment/Plan: on eliquis bid. Code(s): I48.91 - UNSPECIFIED ATRIAL FIBRILLATION Qualifiers: Atrial fibrillation type: paroxysmal Qualified Code(s): I48.0 - Paroxysmal atrial fibrillation (7) Prophylactic measure Assessment/Plan: fen renal diet monitor electrolytes on eliquis fall precautions Code(s): Z29.9 - ENCOUNTER FOR PROPHYLACTIC MEASURES, UNSPECIFIED Visit type - Emergency Visit Emergency Visit: Yes ED Registration Date: 12/22/18 Care time: The patient presented to the Emergency Department on the above date and was hospitalized for further evaluation of their emergent condition. - New Patient This patient is new to me today: No - Critical Care Critical Care patient: No - Discharge Referral Referred to [facility] Med [facility] No
[2018-12-23] MEDS ORDERED: methylPREDNISolone NA SUCC 40 MG/1 ML VIAL ONE ×2 (15:48→22:55)
[2018-12-23] MEDS: methylPREDNISolone NA SUCC 40 MG/1 ML VIAL IVPUSH SCH ×2 (15:51→22:45)
--- NOTE | 2018-12-23 17:14 | PN ---
Progress Note (short form) - Note Progress Note: ID consult dictated patient is very poor historian c/o pain all over recent ecchymoses on right side of body - chest/abdomen noted esrd/hd copd on home oxygen legionella/pneumo antigen negative obtain blood cultures can d/c zithromax suspect volume overload more likely then pneumonia continue ceftriaxone for now
--- NOTE | 2018-12-23 18:54 | CON.CARD ---
Consult Consult Specialty:: Cardiology Referred by:: Hospitalist Medicine Reason for Consultation:: Dyspnea - History of Present Illness Chief Complaint: Dyspnea History of Present Illness: Patient is a 63 year old female with underlying history of bronchial asthma, ESRD on HD via AV fistula, HTN, hypercholesterolemia, home O2-dependent COPD and PAF (on DOAC/Eliquis), diastolic CHF, recent hospital stay for right pectoral and arm hematoma presents with shortness of breath and cough in context of skipped HD sessions, denies chest pain, near or true syncope, palpitations, orthopnea, PND or LE edema. 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: Peripheral Neuropathy Cardio/Vascular: Yes: HTN, Hyperlipdemia Pulmonary: Yes: Asthma, Bronchitis, COPD, Pneumonia Gastrointestinal: Yes: Gastritis Renal/: Yes: Renal Inusuff, Hemodialysis ...LMP: 07/25/12 Infectious Disease: Yes: MRSA Psych: Yes: Anxiety, Depression Musculoskeletal: Yes: Chronic low back pain Endocrine: Yes: Hyperthyroidism - Past Surgical History Past Surgical History: Yes: AV Fistula/Graft, Joint Replacement (hip replacement ) - Alcohol/Substance Use Hx Alcohol Use: No History of Substance Use: reports: Marijuana - Smoking History Smoking history: Current every day smoker Have you smoked in the past 12 months: Yes Aproximately how many cigarettes per day: 3 If you are a former smoker, when did you quit?: refused booklet 07/21/14 - Social History Usual Living Arrangement: With Child ADL: Independent Occupation: not working, SSI History of Recent Travel: No Home Medications - Allergies Allergies/Adverse Reactions: Allergies Allergy/AdvReac Type Severity Reaction Status Date / Time levofloxacin [From Levaquin] Allergy Mild Itching Verified 12/22/18 19:08 - Home Medications Home Medications: Ambulatory Orders Apixaban [Eliquis] 2.5 mg PO BID 08/09/18 Atorvastatin Ca [Lipitor] 20 mg PO HS 08/09/18 Duloxetine HCl [Cymbalta -] 60 mg PO DAILY 08/09/18 Fluticasone/Salmeterol [Advair 250-50 Diskus] 1 each IH BID 08/09/18 Melatonin 5 mg PO HS 08/09/18 Sennosides [Senna] 8.6 mg PO HS 08/09/18 Amiodarone HCl [Cordarone -] 200 mg PO DAILY #30 tablet 08/20/18 Gabapentin [Neurontin -] 300 mg PO TID #30 capsule 08/20/18 Metoprolol Succinate [Toprol XL -] 25 mg PO DAILY #30 tab.sr.24h 08/20/18 Tramadol HCl 50 mg PO Q6H #12 tablet MDD 200mg 11/03/18 Albuterol Sulfate Inhaler - [Ventolin HFA Inhaler -] 1 - 2 inh PO Q4H PRN #1 inhaler 11/19/18 LORazepam [Ativan] 1 mg PO BID #14 tablet MDD 2 11/19/18 Lidocaine 5% Patch [Lidoderm -] 1 patch TP DAILY #7 patch 12/11/18 Acetaminophen [Tylenol .Regular Strength -] 650 mg PO Q4H PRN tablet 12/17/18 Amlodipine Besylate [Norvasc -] 10 mg PO DAILY tablet 12/17/18 Apixaban [Eliquis -] 2.5 mg PO BID tablet 12/17/18 Docusate Sodium [Colace -] 100 mg PO Q8H PRN capsule 12/17/18 Family Disease History - Family Disease History Family Disease History: Other: Father (alive), Mother (alive), Sister (alive), Son (23 yo old - alive - healthy) Review of Systems - Review of Systems Cardiovascular: reports: Shortness of Breath Respiratory: reports: SOB, SOB on Exertion Vital Signs: Vital Signs Temperature 97.7 F 12/23/18 15:10 Pulse Rate 75 12/23/18 15:10 Respiratory Rate 20 12/23/18 08:00 Blood Pressure 122/62 12/23/18 15:10 O2 Sat by Pulse Oximetry (%) 93 L 12/23/18 15:10 Constitutional: Yes: No Distress, Calm, Thin Neck: Yes: Supple Respiratory: Yes: Regular, Diminished, On Nasal O2 Gastrointestinal: Yes: Normal Bowel Sounds, Soft Cardiovascular: Yes: Regular Rate and Rhythm JVD: No Carotid Bruit: No Heart Sounds: Yes: S1, S2 Murmur: Yes: Systolic Murmur, Grade 1 Edema: No - Other Data Labs, Other Data: CBC, BMP 12/22/18 18:40 12/22/18 18:40 INR, PTT INR 1.21 (0.83-1.09) H 12/22/18 18:40 Troponin, BNP 12/22/18 12/22/18 18:40 18:40 Troponin I 0.02 B-Natriuretic Peptide 56880.7 H Troponin, BNP 12/22/18 12/22/18 18:40 18:40 Troponin I 0.02 B-Natriuretic Peptide 39191.7 H NSR @98 LAD, LVH Imaging - Results Chest X-ray: Report Reviewed (Tommy LANGFORD) Problem List - Problems (1) Anemia Code(s): D64.9 - ANEMIA, UNSPECIFIED Qualifiers: Anemia type: due to chronic kidney disease Chronic kidney disease stage: on chronic dialysis Qualified Code(s): N18.6 - End stage renal disease; D63.1 - Anemia in chronic kidney disease; Z99.2 - Dependence on renal dialysis (2) Atrial fibrillation Code(s): I48.91 - UNSPECIFIED ATRIAL FIBRILLATION Qualifiers: Atrial fibrillation type: paroxysmal Qualified Code(s): I48.0 - Paroxysmal atrial fibrillation (3) COPD (chronic obstructive pulmonary disease) Code(s): J44.9 - CHRONIC OBSTRUCTIVE PULMONARY DISEASE, UNSPECIFIED Qualifiers: COPD type: unspecified COPD Qualified Code(s): J44.9 - Chronic obstructive pulmonary disease, unspecified (4) ESRD (end stage renal disease) on dialysis Code(s): N18.6 - END STAGE RENAL DISEASE; Z99.2 - DEPENDENCE ON RENAL DIALYSIS (5) Hyperlipidemia Code(s): E78.5 - HYPERLIPIDEMIA, UNSPECIFIED Qualifiers: Hyperlipidemia type: pure hypercholesterolemia Qualified Code(s): E78.00 - Pure hypercholesterolemia, unspecified; E78.0 - Pure hypercholesterolemia (6) Hypertension Code(s): I10 - ESSENTIAL (PRIMARY) HYPERTENSION Qualifiers: Hypertension type: essential hypertension Qualified Code(s): I10 - Essential (primary) hypertension (7) Hyperthyroidism Code(s): E05.90 - THYROTOXICOSIS, UNSP WITHOUT THYROTOXIC CRISIS OR STORM (8) Stroke Code(s): I63.9 - CEREBRAL INFARCTION, UNSPECIFIED Qualifiers: CVA mechanism: unspecified Qualified Code(s): I63.9 - Cerebral infarction, unspecified (9) CHF (congestive heart failure) Code(s): I50.9 - HEART FAILURE, UNSPECIFIED Assessment/Plan 1. Acute on chronic diastolic CHF 2. ESRD on HD via AV fistula and non compliance with HD schedule 3. HTN 4. Hypercholesterolemia 5. PAF on DOAC/Eliquis 6. Bronchial asthma/COPD 7. Right pectoral and arm hematoma 8. Anemia of CKD 9. Left internal capsule infarct PLAN: 1. Continue Metoprolol ER 25 qd, Amlodipine 10 qd and Atorvastatin 20 qd 2. Continue Eliquis 2.5 mg BID. 3. HD as per Renal 4. Bronchodilator, short course steroids and O2 as needed, smoking cessation 5. Thank you for consultative opportunity
--- NOTE | 2018-12-23 19:32 | CONS ---
DATE OF CONSULTATION: 12/23/2018 REQUESTED BY: Hospitalist Service This is a 63-year-old woman who recently hospitalized with a right axillary hematoma. She has end-stage renal disease and is on dialysis. She presents with cough and shortness of breath. She reports worsening shortness of breath and dyspnea on exertion. She did not improve on DuoNebs. There is no history of fever or chills. Her last dialysis session was on December 20, 2018. She is resting in the bed, complaining of diffuse body aches. She is a very poor historian but denies any fevers, chills or urinary complaints. She denies any leg swelling. She denies any falls to me but apparently, she recently fell out of bed. PAST MEDICAL HISTORY: Notable for atrial fibrillation, asthma, COPD, end-stage renal disease on dialysis, hypertension, diabetes, chronic low back pain and CHF. She also has a history of anxiety and depression, renal stones in the past, hypercholesterolemia and hypertension. She has had a bleeding ulcer. She has a history of hypothyroidism. PAST SURGICAL HISTORY: Notable for bilateral hip replacements. She has an arteriovenous fistula in her upper arm. SOCIAL HISTORY: She is an active cigarette smoker. ALLERGIES: LEVOFLOXACIN. HOSPITAL MEDICATIONS: Solu-Medrol, amiodarone, azithromycin, ceftriaxone, Eliquis, gabapentin, Colace, Cymbalta, Procrit, Neurontin, Lidoderm, senna, albuterol duo-nebs. HOME MEDICATIONS: Tramadol, senna, Toprol XL, melatonin, Lidoderm patch, Ativan, Neurontin, Advair, Cymbalta, Colace, Lipitor, Eliquis, Norvasc, amiodarone, Ventolin. REVIEW OF SYSTEMS: She complains of diffuse body aches. PHYSICAL EXAMINATION: GENERAL: She is awake and alert. She has a pacifier in her mouth. VITALS: She is afebrile. Temperature is 97.7, pulse is 75, blood pressure 122/62, oxygen saturation 93% on room air. HEENT: Normocephalic. Eyes are anicteric. NECK: Supple. LUNGS: Diminished breath sounds at the bases. HEART: Regular rate and rhythm. ABDOMEN: Soft. EXTREMITIES: No edema. SKIN: Exam is notable for extensive ecchymoses on the right side of her chest, extending to her lower abdomen. LABS: Notable for a white count of 14.2, hemoglobin of 8.6, platelets of 306,000. INR is 1.2. BUN and creatinine are 83 and 7.3. A Legionella urinary antigen was sent and is negative. Blood cultures were not sent. She had a chest x-ray done as well as a head CT. The chest x-ray was notable for new bibasilar atelectatic changes. The head CT shows no evidence of an acute intracranial process. She had a duplex study that showed no evidence of DVT or of left calf mass or hematoma. IMPRESSION: In summary, this is a 63-year-old woman who I suspect has some element of COPD exacerbation and volume overload, probably due to some renal noncompliance with her dialysis sessions. Her BNP is 32,000. I am not convinced that she has an infection. 1. I would obtain some blood cultures if they have not been. Her Legionella and pneumococcal antigens are negative. I would treat her ceftriaxone for now. 2. Chronic obstructive pulmonary disease exacerbation. 3. Volume overload from noncompliance with dialysis. 4. History of recent hematoma of the right axilla. 5. Further recommendations to follow. Trey [id number]
[2018-12-23] MEDS: LIDOCAINE PATCH REMOVAL MC SCH (23:00)
[2018-12-23] MEDS: ATORVASTATIN CA 20 MG TABLET (FP) PO SCH (23:00)
[2018-12-23] MEDS: SENNOSIDES 8.6MG TABLET (FP) PO SCH (23:00)
[2018-12-23] MEDS ORDERED: ALBUTEROL SO4 2.5/IPRATROPIUM 0.5 INH SOL 3 ML VIAL.NEB. NEB ONE (23:28)
[2018-12-23] MEDS ORDERED: ATORVASTATIN CA 20 MG TABLET (FP) ONE (23:29)
[2018-12-23] MEDS ORDERED: SENNOSIDES 8.6MG TABLET (FP) PO ONE (23:29)
[2018-12-24] MEDS ORDERED: methylPREDNISolone NA SUCC 40 MG/1 ML VIAL ONE (03:26)
[2018-12-24] MEDS: methylPREDNISolone NA SUCC 40 MG/1 ML VIAL IVPUSH SCH ×4 (04:00→21:46)
[2018-12-24] MEDS ORDERED: GABAPENTIN 100 MG CAPSULE (FP) ONE ×2 (06:14→06:17)
[2018-12-24] MEDS: GABAPENTIN 300 MG CAPSULE (FP) PO SCH ×3 (06:34→21:44)
[2018-12-24] MEDS: ALBUTEROL SO4 2.5/IPRATROPIUM 0.5 INH SOL 3 ML VIAL.NEB. NEB SCH ×4 (08:45→20:42)
[2018-12-24] MEDS: NICOTINE 7 MG/24 HOURS TOPICAL PATCH TD SCH (10:02)
[2018-12-24 10:17] LABS: BASO % 0.1 % (0-2.0); HEMATOCRIT 22.9 % (32.4-45.2); HEMOGLOBIN 7.8 GM/dL (10.7-15.3); LYMPH % 7.6 % (8-40); MCH 31.3 pg (25.7-33.7); MCHC 33.8 g/dl (32.0-36.0); MEAN CELL VOLUME 92.6 fl (80-96); MEAN PLT VOLUME 7.1 fl (7.5-11.1); NEUT % 91.3 % (42.8-82.8); PLATELET COUNT 286 K/MM3 (134-434); RBC 2.48 M/mm3 (3.60-5.2); RDW 18.1 % (11.6-15.6); WHITE BLOOD COUNT 4.6 K/mm3 (4.0-10.0)
[2018-12-24] MEDS ORDERED: LIDOCAINE 5% TOPICAL PATCH ONE (10:18)
[2018-12-24] MEDS: LIDOCAINE 5% TOPICAL PATCH TP SCH (10:19)
[2018-12-24 10:46] LABS: ALBUMIN 3.2 g/dl (3.4-5.0); BILIRUBIN,TOTAL 0.6 mg/dL (0.2-1); BLOOD UREA NITROGEN 103.9 mg/dL (7-18); CALCIUM 8.7 mg/dL (8.5-10.1); MAGNESIUM 2.9 mg/dL (1.8-2.4); POTASSIUM 5.3 mmol/L (3.5-5.1); TOT PROT 6.5 g/dl (6.4-8.2)
--- NOTE | 2018-12-24 12:01 | PN ---
Progress Note, Physician History of Present Illness: Shortness of breath and cough improving, undergoing bedside HD session, denies chest pain, near or true syncope, palpitations, orthopnea, PND or LE edema. - Current Medication List Current Medications: Active Medications Acetaminophen (Tylenol -) 650 mg PO Q4H PRN PRN Reason: PAIN LEVEL 1-5 Albuterol Sulfate (Ventolin 0.083% Nebulizer Soln -) 1 amp NEB Q4H PRN PRN Reason: SHORT OF BREATH/WHEEZING Last Admin: 12/23/18 01:24 Dose: 1 amp Albuterol/Ipratropium (Duoneb -) 1 amp NEB RQID [facility] Last Admin: 12/23/18 23:00 Dose: 1 amp Amiodarone HCl (Cordarone -) 200 mg PO DAILY [facility] Last Admin: 12/23/18 10:55 Dose: 200 mg Amlodipine Besylate (Norvasc -) 10 mg PO DAILY [facility] Last Admin: 12/23/18 10:57 Dose: 10 mg Apixaban (Eliquis -) 2.5 mg PO BID [facility] Last Admin: 12/23/18 23:00 Dose: 2.5 mg Atorvastatin Calcium (Lipitor -) 20 mg PO HS [facility] Last Admin: 12/23/18 23:00 Dose: 20 mg Docusate Sodium (Colace -) 100 mg PO Q8H PRN PRN Reason: CONSTIPATION Duloxetine HCl (Cymbalta -) 60 mg PO DAILY [facility] Last Admin: 12/23/18 10:56 Dose: 60 mg Epoetin Zachery (Procrit -) 10,000 unit IVPUSH ONCE ONE Stop: 12/23/18 12:36 Gabapentin (Neurontin -) 300 mg PO TID [facility] Last Admin: 12/24/18 06:34 Dose: 300 mg Ceftriaxone Sodium 1 gm/ (Dextrose) 50 mls @ 100 mls/hr IVPB DAILY [facility]; Protocol Last Admin: 12/23/18 11:04 Dose: 100 mls/hr Sodium Chloride (Normal Saline -) 250 mls @ 3,000 mls/hr IV PRN PRN PRN Reason: Hypotension during Dialysis Stop: 12/24/18 12:35 Lidocaine (Lidoderm Patch -) 1 patch TP DAILY [facility] Last Admin: 12/24/18 10:19 Dose: 1 patch Methylprednisolone Sodium Succinate (Solu-Medrol -) 40 mg IVPUSH Q6H-IV [facility] Last Admin: 12/24/18 10:00 Dose: 40 mg Metoprolol Succinate (Toprol Xl -) 25 mg PO DAILY [facility] Last Admin: 12/23/18 10:58 Dose: 25 mg Miscellaneous (Lidoderm Patch Removal) 1 each MC DAILY@2200 [facility] Last Admin: 12/23/18 23:00 Dose: 1 each Nicotine (Nicoderm Patch -) 7 mg TD DAILY [facility] Last Admin: 12/24/18 10:02 Dose: 7 mg Senna (Senna -) 1 tab PO HS [facility] Last Admin: 12/23/18 23:00 Dose: 1 tab Tramadol HCl (Ultram -) 50 mg PO Q6H PRN PRN Reason: PAIN LEVEL 6-10 Last Admin: 12/23/18 15:52 Dose: 50 mg - Objective Vital Signs: Vital Signs Temperature 97.8 F 12/24/18 11:18 Pulse Rate 92 H 12/24/18 11:18 Respiratory Rate 20 12/24/18 08:00 Blood Pressure 141/76 12/24/18 11:18 O2 Sat by Pulse Oximetry (%) 92 L 12/24/18 11:18 Constitutional: Yes: No Distress, Calm Neck: Yes: Supple Cardiovascular: Yes: Regular Rate and Rhythm Respiratory: Yes: Regular, Diminished Gastrointestinal: Yes: Normal Bowel Sounds, Soft Edema: No Labs: CBC, BMP 12/24/18 10:05 12/24/18 10:05 INR, PTT INR 1.21 (0.83-1.09) H 12/22/18 18:40 - ....Imaging EKG: Report Reviewed (Tele: NSR) Problem List - Problems (1) Anemia Code(s): D64.9 - ANEMIA, UNSPECIFIED Qualifiers: Anemia type: due to chronic kidney disease Chronic kidney disease stage: on chronic dialysis Qualified Code(s): N18.6 - End stage renal disease; D63.1 - Anemia in chronic kidney disease; Z99.2 - Dependence on renal dialysis (2) Atrial fibrillation Code(s): I48.91 - UNSPECIFIED ATRIAL FIBRILLATION Qualifiers: Atrial fibrillation type: paroxysmal Qualified Code(s): I48.0 - Paroxysmal atrial fibrillation (3) COPD (chronic obstructive pulmonary disease) Code(s): J44.9 - CHRONIC OBSTRUCTIVE PULMONARY DISEASE, UNSPECIFIED Qualifiers: COPD type: unspecified COPD Qualified Code(s): J44.9 - Chronic obstructive pulmonary disease, unspecified (4) ESRD (end stage renal disease) on dialysis Code(s): N18.6 - END STAGE RENAL DISEASE; Z99.2 - DEPENDENCE ON RENAL DIALYSIS (5) Hyperlipidemia Code(s): E78.5 - HYPERLIPIDEMIA, UNSPECIFIED Qualifiers: Hyperlipidemia type: pure hypercholesterolemia Qualified Code(s): E78.00 - Pure hypercholesterolemia, unspecified; E78.0 - Pure hypercholesterolemia (6) Hypertension Code(s): I10 - ESSENTIAL (PRIMARY) HYPERTENSION Qualifiers: Hypertension type: essential hypertension Qualified Code(s): I10 - Essential (primary) hypertension (7) Hyperthyroidism Code(s): E05.90 - THYROTOXICOSIS, UNSP WITHOUT THYROTOXIC CRISIS OR STORM (8) Stroke Code(s): I63.9 - CEREBRAL INFARCTION, UNSPECIFIED Qualifiers: CVA mechanism: unspecified Qualified Code(s): I63.9 - Cerebral infarction, unspecified (9) CHF (congestive heart failure) Code(s): I50.9 - HEART FAILURE, UNSPECIFIED Assessment/Plan 1. Acute on chronic diastolic CHF improving 2. ESRD on HD via AV fistula and non compliance with HD schedule 3. HTN 4. Hypercholesterolemia 5. PAF on DOAC/Eliquis 6. Bronchial asthma/COPD 7. Right pectoral and arm hematoma 8. Anemia of CKD 9. Left internal capsule infarct PLAN: 1. Continue Metoprolol ER 25 qd, Amlodipine 10 qd, amiodarone 200 qd and Atorvastatin 20 qd 2. Continue Eliquis 2.5 mg BID. 3. HD as per Renal 4. Bronchodilator, short course steroids, abx and O2 as needed, smoking cessation
[2018-12-24] MEDS ORDERED: cefTRIAXone SODIUM 1 GM VIAL ONE (12:16)
[2018-12-24] MEDS ORDERED: DEXTROSE 5%-WATER - 50 ML IVPB ONE (12:16)
[2018-12-24 12:19] LABS: ANISOCYTOSIS 1+; MACROCYTOSIS 1+; OVALOCYTE 1+; PLATELET ESTIMATE NORMAL
--- NOTE | 2018-12-24 12:28 | PN ---
Progress Note (short form) - Note Progress Note: PULMONARY CONSULTATION DICTATED 12/24/18 IMP ACUTE RESPIRATORY DISTRESS COPD WITH ACUTE EXACERBATION VOLUME OVERLOAD ACUTE ON CHRONIC DIASTOLIC CHF ESRD ON HD AFIB HTN DEPRESSION H/O LUNG NODULE ANXIETY TOBACCO ABUSE PLAN INHALED BRONCHODILATORS IV STEROIDS SUPPLEMENTAL O2 HD PER RENAL CHEST CT SMOKING CESSATION COUNSELED DR CHILDS Problem List - Problems (1) Anemia Code(s): D64.9 - ANEMIA, UNSPECIFIED (2) Asthma Code(s): J45.909 - UNSPECIFIED ASTHMA, UNCOMPLICATED (3) Atrial fibrillation Code(s): I48.91 - UNSPECIFIED ATRIAL FIBRILLATION Qualifiers: Atrial fibrillation type: paroxysmal Qualified Code(s): I48.0 - Paroxysmal atrial fibrillation (4) COPD (chronic obstructive pulmonary disease) Code(s): J44.9 - CHRONIC OBSTRUCTIVE PULMONARY DISEASE, UNSPECIFIED Qualifiers: COPD type: unspecified COPD Qualified Code(s): J44.9 - Chronic obstructive pulmonary disease, unspecified (5) COPD with acute exacerbation Code(s): J44.1 - CHRONIC OBSTRUCTIVE PULMONARY DISEASE W (ACUTE) EXACERBATION (6) Chronic kidney disease (CKD) Code(s): N18.9 - CHRONIC KIDNEY DISEASE, UNSPECIFIED Qualifiers: Chronic kidney disease stage: stage 4 (severe) Qualified Code(s): N18.4 - Chronic kidney disease, stage 4 (severe) (7) ESRD (end stage renal disease) Code(s): N18.6 - END STAGE RENAL DISEASE (8) Emphysema lung Code(s): J43.9 - EMPHYSEMA, UNSPECIFIED (9) Hyperlipidemia Code(s): E78.5 - HYPERLIPIDEMIA, UNSPECIFIED Qualifiers: Hyperlipidemia type: pure hypercholesterolemia Qualified Code(s): E78.00 - Pure hypercholesterolemia, unspecified; E78.0 - Pure hypercholesterolemia (10) Hypertension Code(s): I10 - ESSENTIAL (PRIMARY) HYPERTENSION Qualifiers: Hypertension type: essential hypertension Qualified Code(s): I10 - Essential (primary) hypertension (11) Hyperthyroidism Code(s): E05.90 - THYROTOXICOSIS, UNSP WITHOUT THYROTOXIC CRISIS OR STORM (12) Lung nodule Code(s): R91.1 - SOLITARY PULMONARY NODULE (13) Shortness of breath at rest Code(s): R06.02 - SHORTNESS OF BREATH (14) Smoker unmotivated to quit Code(s): F17.200 - NICOTINE DEPENDENCE, UNSPECIFIED, UNCOMPLICATED (15) CHF (congestive heart failure) Code(s): I50.9 - HEART FAILURE, UNSPECIFIED (16) Nicotine dependence Code(s): F17.200 - NICOTINE DEPENDENCE, UNSPECIFIED, UNCOMPLICATED Qualifiers: Nicotine product type: cigarettes Substance use status: uncomplicated Qualified Code(s): F17.210 - Nicotine dependence, cigarettes, uncomplicated (17) Cough Code(s): R05 - COUGH
[2018-12-24] MEDS: CEFTRIAXONE 1 GM in DEXTROSE 5%-WATER - 50 ML IVPB SCH (12:55)
--- NOTE | 2018-12-24 13:03 | PN ---
Progress Note, Physician History of Present Illness: Pt seen and examined at bedside. She is awake and alert. SHe feels that her breathing is improving. - Current Medication List Current Medications: Active Medications Acetaminophen (Tylenol -) 650 mg PO Q4H PRN PRN Reason: PAIN LEVEL 1-5 Albuterol Sulfate (Ventolin 0.083% Nebulizer Soln -) 1 amp NEB Q4H PRN PRN Reason: SHORT OF BREATH/WHEEZING Last Admin: 12/23/18 01:24 Dose: 1 amp Albuterol/Ipratropium (Duoneb -) 1 amp NEB RQID [facility] Last Admin: 12/24/18 11:55 Dose: 1 amp Amiodarone HCl (Cordarone -) 200 mg PO DAILY [facility] Last Admin: 12/23/18 10:55 Dose: 200 mg Amlodipine Besylate (Norvasc -) 10 mg PO DAILY [facility] Last Admin: 12/23/18 10:57 Dose: 10 mg Apixaban (Eliquis -) 2.5 mg PO BID [facility] Last Admin: 12/23/18 23:00 Dose: 2.5 mg Atorvastatin Calcium (Lipitor -) 20 mg PO HS [facility] Last Admin: 12/23/18 23:00 Dose: 20 mg Docusate Sodium (Colace -) 100 mg PO Q8H PRN PRN Reason: CONSTIPATION Duloxetine HCl (Cymbalta -) 60 mg PO DAILY [facility] Last Admin: 12/23/18 10:56 Dose: 60 mg Epoetin Zachery (Procrit -) 10,000 unit IVPUSH ONCE ONE Stop: 12/23/18 12:36 Gabapentin (Neurontin -) 300 mg PO TID [facility] Last Admin: 12/24/18 06:34 Dose: 300 mg Ceftriaxone Sodium 1 gm/ (Dextrose) 50 mls @ 100 mls/hr IVPB DAILY [facility]; Protocol Last Admin: 12/24/18 12:55 Dose: 100 mls/hr Sodium Chloride (Normal Saline -) 250 mls @ 3,000 mls/hr IV PRN PRN PRN Reason: Hypotension during Dialysis Stop: 12/24/18 12:35 Lidocaine (Lidoderm Patch -) 1 patch TP DAILY [facility] Last Admin: 12/24/18 10:19 Dose: 1 patch Methylprednisolone Sodium Succinate (Solu-Medrol -) 40 mg IVPUSH Q6H-IV [facility] Last Admin: 12/24/18 10:00 Dose: 40 mg Metoprolol Succinate (Toprol Xl -) 25 mg PO DAILY [facility] Last Admin: 12/23/18 10:58 Dose: 25 mg Miscellaneous (Lidoderm Patch Removal) 1 each MC DAILY@2200 [facility] Last Admin: 12/23/18 23:00 Dose: 1 each Nicotine (Nicoderm Patch -) 7 mg TD DAILY [facility] Last Admin: 12/24/18 10:02 Dose: 7 mg Senna (Senna -) 1 tab PO HS [facility] Last Admin: 12/23/18 23:00 Dose: 1 tab Tramadol HCl (Ultram -) 50 mg PO Q6H PRN PRN Reason: PAIN LEVEL 6-10 Last Admin: 12/23/18 15:52 Dose: 50 mg - Objective Vital Signs: Vital Signs Temperature 97.8 F 12/24/18 12:27 Pulse Rate 86 12/24/18 12:27 Respiratory Rate 86 H 12/24/18 12:27 Blood Pressure 139/77 12/24/18 12:27 O2 Sat by Pulse Oximetry (%) 92 L 12/24/18 12:27 Constitutional: Yes: Calm Eyes: Yes: Conjunctiva Clear HENT: Yes: Atraumatic Cardiovascular: Yes: S1, S2 Respiratory: Yes: On Nasal O2, Wheezes Gastrointestinal: Yes: Soft Genitourinary: Yes: WNL Musculoskeletal: Yes: WNL Edema: No Neurological: Yes: Oriented Psychiatric: Yes: Oriented Labs: CBC, BMP 12/24/18 10:05 12/24/18 10:05 INR, PTT INR 1.21 (0.83-1.09) H 12/22/18 18:40 Problem List - Problems (1) COPD (chronic obstructive pulmonary disease) Code(s): J44.9 - CHRONIC OBSTRUCTIVE PULMONARY DISEASE, UNSPECIFIED Qualifiers: COPD type: unspecified COPD Qualified Code(s): J44.9 - Chronic obstructive pulmonary disease, unspecified (2) ESRD (end stage renal disease) Code(s): N18.6 - END STAGE RENAL DISEASE Assessment/Plan Current Medications Generic Name Dose Route Start Last Admin Trade Name Freq PRN Reason Stop Dose Admin Acetaminophen 650 mg 12/22/18 22:12 Tylenol - PO Q4H PRN PAIN LEVEL 1-5 Albuterol Sulfate 1 amp 12/22/18 22:08 12/23/18 01:24 Ventolin 0.083% Nebulizer Soln - NEB 1 amp Q4H PRN Administration SHORT OF BREATH/WHEEZING Albuterol/Ipratropium 1 amp 12/23/18 08:00 12/24/18 11:55 Duoneb - NEB 1 amp RQID [facility] Administration Amiodarone HCl 200 mg 12/23/18 10:00 12/23/18 10:55 Cordarone - PO 200 mg DAILY [facility] Administration Amlodipine Besylate 10 mg 12/23/18 10:00 12/23/18 10:57 Norvasc - PO 10 mg DAILY [facility] Administration Apixaban 2.5 mg 12/23/18 10:00 12/23/18 23:00 Eliquis - PO 2.5 mg BID [facility] Administration Atorvastatin Calcium 20 mg 12/23/18 22:00 12/23/18 23:00 Lipitor - PO 20 mg HS [facility] Administration Docusate Sodium 100 mg 12/22/18 22:12 Colace - PO Q8H PRN CONSTIPATION Duloxetine HCl 60 mg 12/23/18 10:00 12/23/18 10:56 Cymbalta - PO 60 mg DAILY [facility] Administration Epoetin Zachery 10,000 unit 12/23/18 12:35 Procrit - IVPUSH 12/23/18 12:36 ONCE ONE Gabapentin 300 mg 12/23/18 06:00 12/24/18 06:34 Neurontin - PO 300 mg TID [facility] Administration Ceftriaxone Sodium 1 gm/ 50 mls @ 100 mls/hr 12/22/18 22:30 12/24/18 12:55 Dextrose IVPB 100 mls/hr DAILY [facility] Administration Protocol Sodium Chloride 250 mls @ 3,000 mls/hr 12/23/18 12:35 Normal Saline - IV 12/24/18 12:35 PRN PRN Hypotension during Dialysis Lidocaine 1 patch 12/23/18 10:00 12/24/18 10:19 Lidoderm Patch - TP 1 patch DAILY [facility] Administration Methylprednisolone Sodium Succinate 40 mg 12/23/18 15:00 12/24/18 10:00 Solu-Medrol - IVPUSH 40 mg Q6H-IV [facility] Administration Metoprolol Succinate 25 mg 12/23/18 10:00 12/23/18 10:58 Toprol Xl - PO 25 mg DAILY [facility] Administration Miscellaneous 1 each 12/23/18 22:00 12/23/18 23:00 Lidoderm Patch Removal MC 1 each DAILY@2200 [facility] Administration Nicotine 7 mg 12/23/18 10:00 12/24/18 10:02 Nicoderm Patch - TD 7 mg DAILY [facility] Administration Senna 1 tab 12/23/18 22:00 12/23/18 23:00 Senna - PO 1 tab HS [facility] Administration Tramadol HCl 50 mg 12/22/18 22:15 12/23/18 15:52 Ultram - PO 50 mg Q6H PRN Administration PAIN LEVEL 6-10 Impression 1. ESRD 2. non compliance with HD schedule 3. chronic back pain 4. anemia 5. anxiety 6. hx of nsaid use 7. chf diastolic 8. possible complex renal cyst 9. HLD 10. nephrolithiasis 11. copd exacerbation 12. left internal capsule infarct 13. hematoma of right axilla Plan - HD today - pt did not get HD yesterday as she did not have tele bed - cont steroids with taper as tolerated - discussed with pulmonary - dyspnea likely from copd - epogen for anemia - renal diet - smoking cessation
--- NOTE | 2018-12-24 13:58 | CONS ---
PULMONARY CONSULTATION DATE OF CONSULTATION: 12/24/2018 REFERRING PHYSICIAN: Coreen Davis NP HISTORY OF PRESENT ILLNESS: The patient is a 63-year-old female known to me in previous hospitalization with past medical history of advanced COPD on home O2, atrial fibrillation on Eliquis, end-stage renal disease on hemodialysis Saturday, , and Saturday, fistula, congestive heart failure, hypertension, anemia, chronic back pain, anxiety, depression, long-standing history of tobacco use, currently still smoking, admitted to [facility] with a complaint of a 2-day history of increasing shortness of breath, cough, and chest congestion. Patient states that she has been compliant. She had recently been having her regular dialysis sessions since the previous admission on December 18 secondary to right upper lobe hematoma. States that it started a couple days prior to admission, having shortness of breath, cough productive of yellow sputum. Denied any fevers, chills. Denied any chest pain or palpitations. Denied any nausea, vomiting or diaphoresis. She states she took her inhaler at home, but with symptoms increasing. Apparently, she has been falling out of bed for the past couple of days prior to admission, as well as left lower extremity pain and bruising. She states that she has been compliant with dialysis and her last session was 2 days ago. PAST MEDICAL HISTORY: Again includes atrial fibrillation on Eliquis; COPD on home O2; tobacco abuse; end-stage renal disease on hemodialysis; congestive heart failure; chronic anemia; back pain; hypertension; anxiety; depression. REVIEW OF SYSTEMS: Positive cough. Positive shortness of breath. Positive wheezing. No fever. No chills. No hemoptysis. Positive sputum. No abdominal pain. No lower extremity edema. CURRENT MEDICATIONS: Include Lidoderm, Solu-Medrol, Tylenol, Cordarone, ceftriaxone, Eliquis, Neurontin, Cymbalta, NicoDerm, albuterol, DuoNeb, metoprolol, Colace, senna, Norvasc, Procrit, Lipitor, and Ultram. PHYSICAL EXAMINATION: General: The patient is a thin female, awake, alert, in no acute distress. Vital Signs: She is currently afebrile. HEENT: Exam is normocephalic, atraumatic. Neck: Supple. Heart: S1, S2. Chest: Diffuse bilateral rhonchi and wheezes. Abdomen: Soft. Bowel sounds are positive. Extremities: No cyanosis, edema. IMPRESSION: 1. Acute respiratory distress. Likely secondary to acute exacerbation of chronic obstructive pulmonary disease. 2. Volume overload, secondary to noncompliance with hemodialysis. 3. End-stage renal disease on hemodialysis. 4. Hypertension. 5. Anxiety. 6. Tobacco abuse. 7. Depression. PLAN: Hemodialysis. Inhaled bronchodilators. Supplemental O2. Medrol. Antibiotics as per Infectious Disease. Obtain CT scan of the chest; patient has a history of left upper lobe nodule. Daily weights. Take and follow up chest x-rays. Cultures. JERRELL CHILDS M.D. JONES/[id number]
[2018-12-24] MEDS ORDERED: EPOETIN ALFA 10,000 UNIT/1 ML VIAL IVPUSH ONE (14:00)
[2018-12-24] MEDS: DULoxetine HCL 30 MG CAPSULE.DR PO SCH (14:47)
[2018-12-24] MEDS: AMIODARONE HCL 200 MG TABLET (FP) PO SCH (14:47)
[2018-12-24] MEDS: metoPROLOL SUCCINATE 25 MG TAB.SR.24H (FP) PO SCH (14:52)
[2018-12-24] MEDS: amLODIPine BESYLATE 10 MG TABLET (FP) PO SCH (14:53)
[2018-12-24] MEDS: APIXABAN 2.5 MG TABLET PO SCH ×2 (14:55→21:44)
[2018-12-24] MEDS: traMADol HCL 50 MG TABLET PO PRN ×2 (15:50→21:45)
--- NOTE | 2018-12-24 20:43 | PN ---
Progress Note, Physician Chief Complaint: shortness of breath History of Present Illness: stop prednisone and start solumedrol, has increased congestion bilaterally, breathing rate 26 duonebs scheduled apply 2 liters of nasal cannula pulm consult Patient is a 63 year old female with a past medical history of asthma, ESRD on HD, chronic LBP, anxiety, tobacco dependence, HTN, afib (on amiodarone and eliquis). She presents to the Ed for acute shortness of breath and chest discomfort. chest xray: new bibasilar changes - Current Medication List Current Medications: Active Medications Acetaminophen (Tylenol -) 650 mg PO Q4H PRN PRN Reason: PAIN LEVEL 1-5 Albuterol Sulfate (Ventolin 0.083% Nebulizer Soln -) 1 amp NEB Q4H PRN PRN Reason: SHORT OF BREATH/WHEEZING Last Admin: 12/23/18 01:24 Dose: 1 amp Albuterol/Ipratropium (Duoneb -) 1 amp NEB RQID [facility] Last Admin: 12/24/18 15:50 Dose: 1 amp Amiodarone HCl (Cordarone -) 200 mg PO DAILY [facility] Last Admin: 12/24/18 14:47 Dose: 200 mg Amlodipine Besylate (Norvasc -) 10 mg PO DAILY [facility] Last Admin: 12/24/18 14:53 Dose: 10 mg Apixaban (Eliquis -) 2.5 mg PO BID [facility] Last Admin: 12/24/18 14:55 Dose: 2.5 mg Atorvastatin Calcium (Lipitor -) 20 mg PO HS [facility] Last Admin: 12/23/18 23:00 Dose: 20 mg Docusate Sodium (Colace -) 100 mg PO Q8H PRN PRN Reason: CONSTIPATION Duloxetine HCl (Cymbalta -) 60 mg PO DAILY [facility] Last Admin: 12/24/18 14:47 Dose: 60 mg Gabapentin (Neurontin -) 300 mg PO TID [facility] Last Admin: 12/24/18 14:55 Dose: 300 mg Ceftriaxone Sodium 1 gm/ (Dextrose) 50 mls @ 100 mls/hr IVPB DAILY [facility]; Protocol Last Admin: 12/24/18 12:55 Dose: 100 mls/hr Sodium Chloride (Normal Saline -) 250 mls @ 3,000 mls/hr IV PRN PRN PRN Reason: Hypotension during Dialysis Stop: 12/24/18 12:35 Lidocaine (Lidoderm Patch -) 1 patch TP DAILY [facility] Last Admin: 12/24/18 10:19 Dose: 1 patch Methylprednisolone Sodium Succinate (Solu-Medrol -) 40 mg IVPUSH Q6H-IV [facility] Last Admin: 12/24/18 14:53 Dose: 40 mg Metoprolol Succinate (Toprol Xl -) 25 mg PO DAILY [facility] Last Admin: 12/24/18 14:52 Dose: 25 mg Miscellaneous (Lidoderm Patch Removal) 1 each MC DAILY@2200 [facility] Last Admin: 12/23/18 23:00 Dose: 1 each Nicotine (Nicoderm Patch -) 7 mg TD DAILY [facility] Last Admin: 12/24/18 10:02 Dose: 7 mg Senna (Senna -) 1 tab PO HS [facility] Last Admin: 12/23/18 23:00 Dose: 1 tab Tramadol HCl (Ultram -) 50 mg PO Q6H PRN PRN Reason: PAIN LEVEL 6-10 Last Admin: 12/24/18 15:50 Dose: 50 mg - Objective Vital Signs: Vital Signs Temperature 98.0 F 12/24/18 18:57 Pulse Rate 88 12/24/18 18:57 Respiratory Rate 20 12/24/18 18:57 Blood Pressure 128/58 L 12/24/18 18:57 O2 Sat by Pulse Oximetry (%) 92 L 12/24/18 12:27 Constitutional: Yes: No Distress, Calm HENT: Yes: Other (small purple bruise on forehead) Neck: Yes: Supple Cardiovascular: Yes: Regular Rate and Rhythm Respiratory: Yes: Accessory Muscle Use, Poor Air Entry, Rales, Rhonchi Gastrointestinal: Yes: Soft ...Rectal Exam: Yes: Deferred Genitourinary: Yes: WNL Musculoskeletal: Yes: WNL Edema: No Neurological: Yes: Alert Psychiatric: Yes: Alert Labs: CBC, BMP 12/24/18 10:05 12/24/18 10:05 INR, PTT INR 1.21 (0.83-1.09) H 12/22/18 18:40 Problem List - Problems (1) Acute on chronic kidney failure Assessment/Plan: for dialysis today right upper arm fistula renal following Code(s): N17.9 - ACUTE KIDNEY FAILURE, UNSPECIFIED; N18.9 - CHRONIC KIDNEY DISEASE, UNSPECIFIED Qualifiers: Acute renal failure type: unspecified Chronic kidney disease stage: stage 4 (severe) Qualified Code(s): N17.9 - Acute kidney failure, unspecified; N18.4 - Chronic kidney disease, stage 4 (severe) (2) COPD (chronic obstructive pulmonary disease) Assessment/Plan: start on solumedrol taper duonebs scheduled supplemental oxygen pulmonary consulted Code(s): J44.9 - CHRONIC OBSTRUCTIVE PULMONARY DISEASE, UNSPECIFIED Qualifiers: COPD type: unspecified COPD Qualified Code(s): J44.9 - Chronic obstructive pulmonary disease, unspecified (3) Shortness of breath at rest Code(s): R06.02 - SHORTNESS OF BREATH (4) Hypertension Assessment/Plan: continue toprol and norvasc Code(s): I10 - ESSENTIAL (PRIMARY) HYPERTENSION Qualifiers: Hypertension type: essential hypertension Qualified Code(s): I10 - Essential (primary) hypertension (5) Arm pain, right Assessment/Plan: s/p hematoma on last admission. hematoma size improving Code(s): M79.601 - PAIN IN RIGHT ARM (6) Atrial fibrillation Assessment/Plan: on eliquis bid. Code(s): I48.91 - UNSPECIFIED ATRIAL FIBRILLATION Qualifiers: Atrial fibrillation type: paroxysmal Qualified Code(s): I48.0 - Paroxysmal atrial fibrillation (7) Prophylactic measure Assessment/Plan: fen renal diet monitor electrolytes on eliquis fall precautions Code(s): Z29.9 - ENCOUNTER FOR PROPHYLACTIC MEASURES, UNSPECIFIED Visit type - Emergency Visit Emergency Visit: Yes ED Registration Date: 12/22/18 Care time: The patient presented to the Emergency Department on the above date and was hospitalized for further evaluation of their emergent condition. - New Patient This patient is new to me today: No - Critical Care Critical Care patient: No - Discharge Referral Referred to [facility] No
[2018-12-24] MEDS: ATORVASTATIN CA 20 MG TABLET (FP) PO SCH (21:44)
[2018-12-24] MEDS: SENNOSIDES 8.6MG TABLET (FP) PO SCH (21:44)
[2018-12-24] MEDS ORDERED: ONDANSETRON 4 MG/2 ML VIAL IVPUSH ONE (21:44)
[2018-12-24] MEDS: LIDOCAINE PATCH REMOVAL MC SCH (21:46)
[2018-12-25] MEDS: MELATONIN 5 MG TABLETS PO PRN ×2 (00:47→21:12)
[2018-12-25] MEDS: ALBUTEROL SO4 0.083% IH SOL 2.5 MG/3 ML VIAL.NEB. NEB PRN ×2 (02:15→23:41)
[2018-12-25] MEDS: ACETAMINOPHEN 325 MG TABLET (FP) PO PRN ×2 (03:12→20:30)
[2018-12-25] MEDS: methylPREDNISolone NA SUCC 40 MG/1 ML VIAL IVPUSH SCH ×4 (03:13→21:12)
[2018-12-25] MEDS: traMADol HCL 50 MG TABLET PO PRN ×3 (04:32→20:29)
[2018-12-25] MEDS: GABAPENTIN 300 MG CAPSULE (FP) PO SCH ×3 (06:11→21:12)
[2018-12-25 07:37] LABS: HEMATOCRIT 22.4 % (32.4-45.2); HEMOGLOBIN 7.4 GM/dL (10.7-15.3); LYMPH % 5.3 % (8-40); MCH 30.9 pg (25.7-33.7); MCHC 33.1 g/dl (32.0-36.0); MEAN CELL VOLUME 93.2 fl (80-96); MEAN PLT VOLUME 7.6 fl (7.5-11.1); MONO % 3.4 % (3.8-10.2); NEUT % 91.3 % (42.8-82.8); PLATELET COUNT 256 K/MM3 (134-434); RBC 2.41 M/mm3 (3.60-5.2); WHITE BLOOD COUNT 4.6 K/mm3 (4.0-10.0)
[2018-12-25 08:01] LABS: ALBUMIN 3.2 g/dl (3.4-5.0); BILIRUBIN,TOTAL 0.6 mg/dL (0.2-1); BLOOD UREA NITROGEN 69.2 mg/dL (7-18); CALCIUM 8.4 mg/dL (8.5-10.1); CREATININE 4.6 mg/dL (0.55-1.3); TOT PROT 6.5 g/dl (6.4-8.2)
[2018-12-25] MEDS ORDERED: cefTRIAXone SODIUM 1 GM VIAL ONE (08:41)
[2018-12-25] MEDS ORDERED: DEXTROSE 5%-WATER - 50 ML IVPB ONE (08:42)
[2018-12-25] MEDS: ALBUTEROL SO4 2.5/IPRATROPIUM 0.5 INH SOL 3 ML VIAL.NEB. NEB SCH ×4 (08:53→20:09)
--- NOTE | 2018-12-25 09:21 | PN ---
Progress Note, Physician History of Present Illness: Shortness of breath, orthopnea and cough resolved post HD, denies chest pain, near or true syncope, palpitations, orthopnea, PND or LE edema. - Current Medication List Current Medications: Active Medications Acetaminophen (Tylenol -) 650 mg PO Q4H PRN PRN Reason: PAIN LEVEL 1-5 Last Admin: 12/25/18 03:12 Dose: 650 mg Albuterol Sulfate (Ventolin 0.083% Nebulizer Soln -) 1 amp NEB Q4H PRN PRN Reason: SHORT OF BREATH/WHEEZING Last Admin: 12/25/18 02:15 Dose: 1 amp Albuterol/Ipratropium (Duoneb -) 1 amp NEB RQID [facility] Last Admin: 12/25/18 08:53 Dose: 1 amp Amiodarone HCl (Cordarone -) 200 mg PO DAILY [facility] Last Admin: 12/24/18 14:47 Dose: 200 mg Amlodipine Besylate (Norvasc -) 10 mg PO DAILY [facility] Last Admin: 12/24/18 14:53 Dose: 10 mg Apixaban (Eliquis -) 2.5 mg PO BID [facility] Last Admin: 12/24/18 21:44 Dose: 2.5 mg Atorvastatin Calcium (Lipitor -) 20 mg PO HS [facility] Last Admin: 12/24/18 21:44 Dose: 20 mg Docusate Sodium (Colace -) 100 mg PO Q8H PRN PRN Reason: CONSTIPATION Duloxetine HCl (Cymbalta -) 60 mg PO DAILY [facility] Last Admin: 12/24/18 14:47 Dose: 60 mg Gabapentin (Neurontin -) 300 mg PO TID [facility] Last Admin: 12/25/18 06:11 Dose: 300 mg Ceftriaxone Sodium 1 gm/ (Dextrose) 50 mls @ 100 mls/hr IVPB DAILY [facility]; Protocol Last Admin: 12/24/18 12:55 Dose: 100 mls/hr Sodium Chloride (Normal Saline -) 250 mls @ 3,000 mls/hr IV PRN PRN PRN Reason: Hypotension during Dialysis Stop: 12/24/18 12:35 Lidocaine (Lidoderm Patch -) 1 patch TP DAILY [facility] Last Admin: 12/24/18 10:19 Dose: 1 patch Melatonin (Melatonin) 5 mg PO HS PRN PRN Reason: INSOMNIA Last Admin: 12/25/18 00:47 Dose: 5 mg Methylprednisolone Sodium Succinate (Solu-Medrol -) 40 mg IVPUSH Q6H-IV [facility] Last Admin: 12/25/18 03:13 Dose: 40 mg Metoprolol Succinate (Toprol Xl -) 25 mg PO DAILY [facility] Last Admin: 12/24/18 14:52 Dose: 25 mg Miscellaneous (Lidoderm Patch Removal) 1 each MC DAILY@2200 [facility] Last Admin: 12/24/18 21:46 Dose: 1 each Nicotine (Nicoderm Patch -) 7 mg TD DAILY [facility] Last Admin: 12/24/18 10:02 Dose: 7 mg Senna (Senna -) 1 tab PO HS [facility] Last Admin: 12/24/18 21:44 Dose: 1 tab Tramadol HCl (Ultram -) 50 mg PO Q6H PRN PRN Reason: PAIN LEVEL 6-10 Last Admin: 12/25/18 04:32 Dose: 50 mg - Objective Vital Signs: Vital Signs Temperature 98.1 F 12/25/18 06:00 Pulse Rate 93 H 12/25/18 06:00 Respiratory Rate 20 12/25/18 06:00 Blood Pressure 119/58 L 12/25/18 06:00 O2 Sat by Pulse Oximetry (%) 92 L 12/24/18 22:00 Constitutional: Yes: No Distress, Calm, Thin Neck: Yes: Supple Cardiovascular: Yes: Regular Rate and Rhythm Respiratory: Yes: Regular, Diminished Gastrointestinal: Yes: Normal Bowel Sounds, Soft Edema: No Labs: CBC, BMP 12/25/18 05:10 12/25/18 05:10 INR, PTT INR 1.21 (0.83-1.09) H 12/22/18 18:40 Problem List - Problems (1) Anemia Code(s): D64.9 - ANEMIA, UNSPECIFIED Qualifiers: Anemia type: due to chronic kidney disease Chronic kidney disease stage: on chronic dialysis Qualified Code(s): N18.6 - End stage renal disease; D63.1 - Anemia in chronic kidney disease; Z99.2 - Dependence on renal dialysis (2) Atrial fibrillation Code(s): I48.91 - UNSPECIFIED ATRIAL FIBRILLATION Qualifiers: Atrial fibrillation type: paroxysmal Qualified Code(s): I48.0 - Paroxysmal atrial fibrillation (3) COPD (chronic obstructive pulmonary disease) Code(s): J44.9 - CHRONIC OBSTRUCTIVE PULMONARY DISEASE, UNSPECIFIED Qualifiers: COPD type: unspecified COPD Qualified Code(s): J44.9 - Chronic obstructive pulmonary disease, unspecified (4) ESRD (end stage renal disease) on dialysis Code(s): N18.6 - END STAGE RENAL DISEASE; Z99.2 - DEPENDENCE ON RENAL DIALYSIS (5) Hyperlipidemia Code(s): E78.5 - HYPERLIPIDEMIA, UNSPECIFIED Qualifiers: Hyperlipidemia type: pure hypercholesterolemia Qualified Code(s): E78.00 - Pure hypercholesterolemia, unspecified; E78.0 - Pure hypercholesterolemia (6) Hypertension Code(s): I10 - ESSENTIAL (PRIMARY) HYPERTENSION Qualifiers: Hypertension type: essential hypertension Qualified Code(s): I10 - Essential (primary) hypertension (7) Hyperthyroidism Code(s): E05.90 - THYROTOXICOSIS, UNSP WITHOUT THYROTOXIC CRISIS OR STORM (8) Stroke Code(s): I63.9 - CEREBRAL INFARCTION, UNSPECIFIED Qualifiers: CVA mechanism: unspecified Qualified Code(s): I63.9 - Cerebral infarction, unspecified (9) CHF (congestive heart failure) Code(s): I50.9 - HEART FAILURE, UNSPECIFIED Assessment/Plan 1. Acute on chronic diastolic CHF improving 2. ESRD on HD via AV fistula and non compliance with HD schedule 3. HTN 4. Hypercholesterolemia 5. PAF on DOAC/Eliquis 6. Bronchial asthma/COPD 7. Right pectoral and arm hematoma 8. Anemia of CKD 9. Left internal capsule infarct PLAN: 1. Continue Metoprolol ER 25 qd, Amlodipine 10 qd, amiodarone 200 qd and Atorvastatin 20 qd 2. Continue Eliquis 2.5 mg BID. 3. HD as per Renal, usual transfusion parameters 4. Bronchodilator, short course steroids, abx and O2 as needed, smoking cessation, f/u chest CT
[2018-12-25] MEDS: DULoxetine HCL 30 MG CAPSULE.DR PO SCH (09:52)
[2018-12-25] MEDS: metoPROLOL SUCCINATE 25 MG TAB.SR.24H (FP) PO SCH (09:53)
[2018-12-25] MEDS: AMIODARONE HCL 200 MG TABLET (FP) PO SCH (09:53)
[2018-12-25] MEDS: APIXABAN 2.5 MG TABLET PO SCH ×2 (09:53→21:12)
[2018-12-25] MEDS: amLODIPine BESYLATE 10 MG TABLET (FP) PO SCH (09:53)
[2018-12-25] MEDS: CEFTRIAXONE 1 GM in DEXTROSE 5%-WATER - 50 ML IVPB SCH (09:54)
[2018-12-25] MEDS: NICOTINE 7 MG/24 HOURS TOPICAL PATCH TD SCH (09:55)
[2018-12-25] MEDS: LIDOCAINE 5% TOPICAL PATCH TP SCH (09:55)
--- NOTE | 2018-12-25 10:58 | PN ---
Progress Note, Physician History of Present Illness: pulmonary alert,feeling better,less dyspneic - Current Medication List Current Medications: Active Medications Acetaminophen (Tylenol -) 650 mg PO Q4H PRN PRN Reason: PAIN LEVEL 1-5 Last Admin: 12/25/18 03:12 Dose: 650 mg Albuterol Sulfate (Ventolin 0.083% Nebulizer Soln -) 1 amp NEB Q4H PRN PRN Reason: SHORT OF BREATH/WHEEZING Last Admin: 12/25/18 02:15 Dose: 1 amp Albuterol/Ipratropium (Duoneb -) 1 amp NEB RQID [facility] Last Admin: 12/25/18 08:53 Dose: 1 amp Amiodarone HCl (Cordarone -) 200 mg PO DAILY [facility] Last Admin: 12/25/18 09:53 Dose: 200 mg Amlodipine Besylate (Norvasc -) 10 mg PO DAILY [facility] Last Admin: 12/25/18 09:53 Dose: 10 mg Apixaban (Eliquis -) 2.5 mg PO BID [facility] Last Admin: 12/25/18 09:53 Dose: 2.5 mg Atorvastatin Calcium (Lipitor -) 20 mg PO HS [facility] Last Admin: 12/24/18 21:44 Dose: 20 mg Docusate Sodium (Colace -) 100 mg PO Q8H PRN PRN Reason: CONSTIPATION Duloxetine HCl (Cymbalta -) 60 mg PO DAILY [facility] Last Admin: 12/25/18 09:52 Dose: 60 mg Gabapentin (Neurontin -) 300 mg PO TID [facility] Last Admin: 12/25/18 06:11 Dose: 300 mg Ceftriaxone Sodium 1 gm/ (Dextrose) 50 mls @ 100 mls/hr IVPB DAILY [facility]; Protocol Last Admin: 12/25/18 09:54 Dose: 100 mls/hr Sodium Chloride (Normal Saline -) 250 mls @ 3,000 mls/hr IV PRN PRN PRN Reason: Hypotension during Dialysis Stop: 12/24/18 12:35 Lidocaine (Lidoderm Patch -) 1 patch TP DAILY [facility] Last Admin: 12/25/18 09:55 Dose: 1 patch Melatonin (Melatonin) 5 mg PO HS PRN PRN Reason: INSOMNIA Last Admin: 12/25/18 00:47 Dose: 5 mg Methylprednisolone Sodium Succinate (Solu-Medrol -) 40 mg IVPUSH Q6H-IV [facility] Last Admin: 12/25/18 09:53 Dose: 40 mg Metoprolol Succinate (Toprol Xl -) 25 mg PO DAILY [facility] Last Admin: 12/25/18 09:53 Dose: 25 mg Miscellaneous (Lidoderm Patch Removal) 1 each MC DAILY@2200 [facility] Last Admin: 12/24/18 21:46 Dose: 1 each Nicotine (Nicoderm Patch -) 7 mg TD DAILY [facility] Last Admin: 12/25/18 09:55 Dose: 7 mg Senna (Senna -) 1 tab PO HS [facility] Last Admin: 12/24/18 21:44 Dose: 1 tab Tramadol HCl (Ultram -) 50 mg PO Q6H PRN PRN Reason: PAIN LEVEL 6-10 Last Admin: 12/25/18 04:32 Dose: 50 mg - Objective Vital Signs: Vital Signs Temperature 98.1 F 12/25/18 06:00 Pulse Rate 93 H 12/25/18 06:00 Respiratory Rate 20 12/25/18 06:00 Blood Pressure 119/58 L 12/25/18 06:00 O2 Sat by Pulse Oximetry (%) 92 L 12/24/18 22:00 Constitutional: Yes: Well Nourished, Calm Eyes: Yes: WNL HENT: Yes: WNL Neck: Yes: WNL Cardiovascular: Yes: Regular Rate and Rhythm, S1 Respiratory: Yes: Rhonchi (bilateral wheezes and rhonchi), Wheezes Gastrointestinal: Yes: Normal Bowel Sounds, Soft Extremities: Yes: WNL Edema: No Labs: CBC, BMP 12/25/18 05:10 12/25/18 05:10 INR, PTT INR 1.21 (0.83-1.09) H 12/22/18 18:40 Problem List - Problems (1) Anemia Code(s): D64.9 - ANEMIA, UNSPECIFIED (2) Asthma Code(s): J45.909 - UNSPECIFIED ASTHMA, UNCOMPLICATED (3) Atrial fibrillation Code(s): I48.91 - UNSPECIFIED ATRIAL FIBRILLATION Qualifiers: Atrial fibrillation type: paroxysmal Qualified Code(s): I48.0 - Paroxysmal atrial fibrillation (4) COPD (chronic obstructive pulmonary disease) Code(s): J44.9 - CHRONIC OBSTRUCTIVE PULMONARY DISEASE, UNSPECIFIED Qualifiers: COPD type: unspecified COPD Qualified Code(s): J44.9 - Chronic obstructive pulmonary disease, unspecified (5) COPD with acute exacerbation Code(s): J44.1 - CHRONIC OBSTRUCTIVE PULMONARY DISEASE W (ACUTE) EXACERBATION (6) Chronic kidney disease (CKD) Code(s): N18.9 - CHRONIC KIDNEY DISEASE, UNSPECIFIED Qualifiers: Chronic kidney disease stage: stage 4 (severe) Qualified Code(s): N18.4 - Chronic kidney disease, stage 4 (severe) (7) ESRD (end stage renal disease) Code(s): N18.6 - END STAGE RENAL DISEASE (8) Emphysema lung Code(s): J43.9 - EMPHYSEMA, UNSPECIFIED (9) Hyperlipidemia Code(s): E78.5 - HYPERLIPIDEMIA, UNSPECIFIED Qualifiers: Hyperlipidemia type: pure hypercholesterolemia Qualified Code(s): E78.00 - Pure hypercholesterolemia, unspecified; E78.0 - Pure hypercholesterolemia (10) Hypertension Code(s): I10 - ESSENTIAL (PRIMARY) HYPERTENSION Qualifiers: Hypertension type: essential hypertension Qualified Code(s): I10 - Essential (primary) hypertension (11) Hyperthyroidism Code(s): E05.90 - THYROTOXICOSIS, UNSP WITHOUT THYROTOXIC CRISIS OR STORM (12) Lung nodule Code(s): R91.1 - SOLITARY PULMONARY NODULE (13) Shortness of breath at rest Code(s): R06.02 - SHORTNESS OF BREATH (14) Smoker unmotivated to quit Code(s): F17.200 - NICOTINE DEPENDENCE, UNSPECIFIED, UNCOMPLICATED (15) CHF (congestive heart failure) Code(s): I50.9 - HEART FAILURE, UNSPECIFIED (16) Nicotine dependence Code(s): F17.200 - NICOTINE DEPENDENCE, UNSPECIFIED, UNCOMPLICATED Qualifiers: Nicotine product type: cigarettes Substance use status: uncomplicated Qualified Code(s): F17.210 - Nicotine dependence, cigarettes, uncomplicated (17) Cough Code(s): R05 - COUGH Assessment/Plan IMP ACUTE RESPIRATORY DISTRESS COPD WITH ACUTE EXACERBATION VOLUME OVERLOAD ACUTE ON CHRONIC DIASTOLIC CHF ESRD ON HD AFIB HTN DEPRESSION H/O LUNG NODULE ANXIETY TOBACCO ABUSE PLAN INHALED BRONCHODILATORS IV STEROIDS SAME DOSE SUPPLEMENTAL O2 HD PER RENAL CHEST CT SMOKING CESSATION COUNSELED DR CHILDS Problem List - Problems (1) Anemia Code(s): D64.9 - ANEMIA, UNSPECIFIED (2) Asthma Code(s): J45.909 - UNSPECIFIED ASTHMA, UNCOMPLICATED (3) Atrial fibrillation Code(s): I48.91 - UNSPECIFIED ATRIAL FIBRILLATION Qualifiers: Atrial fibrillation type: paroxysmal Qualified Code(s): I48.0 - Paroxysmal atrial fibrillation (4) COPD (chronic obstructive pulmonary disease) Code(s): J44.9 - CHRONIC OBSTRUCTIVE PULMONARY DISEASE, UNSPECIFIED Qualifiers: COPD type: unspecified COPD Qualified Code(s): J44.9 - Chronic obstructive pulmonary disease, unspecified (5) COPD with acute exacerbation Code(s): J44.1 - CHRONIC OBSTRUCTIVE PULMONARY DISEASE W (ACUTE) EXACERBATION (6) Chronic kidney disease (CKD) Code(s): N18.9 - CHRONIC KIDNEY DISEASE, UNSPECIFIED Qualifiers: Chronic kidney disease stage: stage 4 (severe) Qualified Code(s): N18.4 - Chronic kidney disease, stage 4 (severe) (7) ESRD (end stage renal disease) Code(s): N18.6 - END STAGE RENAL DISEASE (8) Emphysema lung Code(s): J43.9 - EMPHYSEMA, UNSPECIFIED (9) Hyperlipidemia Code(s): E78.5 - HYPERLIPIDEMIA, UNSPECIFIED Qualifiers: Hyperlipidemia type: pure hypercholesterolemia Qualified Code(s): E78.00 - Pure hypercholesterolemia, unspecified; E78.0 - Pure hypercholesterolemia (10) Hypertension Code(s): I10 - ESSENTIAL (PRIMARY) HYPERTENSION Qualifiers: Hypertension type: essential hypertension Qualified Code(s): I10 - Essential (primary) hypertension (11) Hyperthyroidism Code(s): E05.90 - THYROTOXICOSIS, UNSP WITHOUT THYROTOXIC CRISIS OR STORM (12) Lung nodule Code(s): R91.1 - SOLITARY PULMONARY NODULE (13) Shortness of breath at rest Code(s): R06.02 - SHORTNESS OF BREATH (14) Smoker unmotivated to quit Code(s): F17.200 - NICOTINE DEPENDENCE, UNSPECIFIED, UNCOMPLICATED (15) CHF (congestive heart failure) Code(s): I50.9 - HEART FAILURE, UNSPECIFIED (16) Nicotine dependence Code(s): F17.200 - NICOTINE DEPENDENCE, UNSPECIFIED, UNCOMPLICATED Qualifiers: Nicotine product type: cigarettes Substance use status: uncomplicated Qualified Code(s): F17.210 - Nicotine dependence, cigarettes, uncomplicated (17) Cough Code(s): R05 - COUGH
[2018-12-25 11:39] LABS: ANISOCYTOSIS 1+; MACROCYTOSIS 1+; PLATELET ESTIMATE NORMAL
[2018-12-25] MEDS ORDERED: SODIUM CHLORIDE 250 ML IV PRN (13:52)
--- NOTE | 2018-12-25 13:52 | PN ---
Progress Note, Physician History of Present Illness: Pt seen and examined at bedside. She is awake and alert. She has wheezing still. - Current Medication List Current Medications: Active Medications Acetaminophen (Tylenol -) 650 mg PO Q4H PRN PRN Reason: PAIN LEVEL 1-5 Last Admin: 12/25/18 03:12 Dose: 650 mg Albuterol Sulfate (Ventolin 0.083% Nebulizer Soln -) 1 amp NEB Q4H PRN PRN Reason: SHORT OF BREATH/WHEEZING Last Admin: 12/25/18 02:15 Dose: 1 amp Albuterol/Ipratropium (Duoneb -) 1 amp NEB RQID [facility] Last Admin: 12/25/18 12:16 Dose: Not Given Amiodarone HCl (Cordarone -) 200 mg PO DAILY [facility] Last Admin: 12/25/18 09:53 Dose: 200 mg Amlodipine Besylate (Norvasc -) 10 mg PO DAILY [facility] Last Admin: 12/25/18 09:53 Dose: 10 mg Apixaban (Eliquis -) 2.5 mg PO BID [facility] Last Admin: 12/25/18 09:53 Dose: 2.5 mg Atorvastatin Calcium (Lipitor -) 20 mg PO HS [facility] Last Admin: 12/24/18 21:44 Dose: 20 mg Docusate Sodium (Colace -) 100 mg PO Q8H PRN PRN Reason: CONSTIPATION Duloxetine HCl (Cymbalta -) 60 mg PO DAILY [facility] Last Admin: 12/25/18 09:52 Dose: 60 mg Gabapentin (Neurontin -) 300 mg PO TID [facility] Last Admin: 12/25/18 06:11 Dose: 300 mg Ceftriaxone Sodium 1 gm/ (Dextrose) 50 mls @ 100 mls/hr IVPB DAILY [facility]; Protocol Last Admin: 12/25/18 09:54 Dose: 100 mls/hr Sodium Chloride (Normal Saline -) 250 mls @ 3,000 mls/hr IV PRN PRN PRN Reason: Hypotension during Dialysis Stop: 12/24/18 12:35 Lidocaine (Lidoderm Patch -) 1 patch TP DAILY [facility] Last Admin: 12/25/18 09:55 Dose: 1 patch Melatonin (Melatonin) 5 mg PO HS PRN PRN Reason: INSOMNIA Last Admin: 12/25/18 00:47 Dose: 5 mg Methylprednisolone Sodium Succinate (Solu-Medrol -) 40 mg IVPUSH Q6H-IV [facility] Last Admin: 12/25/18 09:53 Dose: 40 mg Metoprolol Succinate (Toprol Xl -) 25 mg PO DAILY [facility] Last Admin: 12/25/18 09:53 Dose: 25 mg Miscellaneous (Lidoderm Patch Removal) 1 each MC DAILY@2200 [facility] Last Admin: 12/24/18 21:46 Dose: 1 each Nicotine (Nicoderm Patch -) 7 mg TD DAILY [facility] Last Admin: 12/25/18 09:55 Dose: 7 mg Senna (Senna -) 1 tab PO HS [facility] Last Admin: 12/24/18 21:44 Dose: 1 tab Tramadol HCl (Ultram -) 50 mg PO Q6H PRN PRN Reason: PAIN LEVEL 6-10 Last Admin: 12/25/18 04:32 Dose: 50 mg - Objective Vital Signs: Vital Signs Temperature 98.1 F 12/25/18 06:00 Pulse Rate 93 H 12/25/18 06:00 Respiratory Rate 20 12/25/18 06:00 Blood Pressure 119/58 L 12/25/18 06:00 O2 Sat by Pulse Oximetry (%) 92 L 12/24/18 22:00 Constitutional: Yes: Calm Eyes: Yes: Conjunctiva Clear HENT: Yes: Atraumatic Neck: Yes: Supple Cardiovascular: Yes: S1, S2 Respiratory: Yes: Wheezes Gastrointestinal: Yes: Normal Bowel Sounds, Soft Genitourinary: Yes: WNL Musculoskeletal: Yes: WNL Edema: No Neurological: Yes: Oriented Psychiatric: Yes: Oriented Labs: CBC, BMP 12/25/18 05:10 12/25/18 05:10 INR, PTT INR 1.21 (0.83-1.09) H 12/22/18 18:40 Problem List - Problems (1) COPD (chronic obstructive pulmonary disease) Code(s): J44.9 - CHRONIC OBSTRUCTIVE PULMONARY DISEASE, UNSPECIFIED Qualifiers: COPD type: unspecified COPD Qualified Code(s): J44.9 - Chronic obstructive pulmonary disease, unspecified (2) ESRD (end stage renal disease) Code(s): N18.6 - END STAGE RENAL DISEASE Assessment/Plan Current Medications Generic Name Dose Route Start Last Admin Trade Name Freq PRN Reason Stop Dose Admin Acetaminophen 650 mg 12/22/18 22:12 12/25/18 03:12 Tylenol - PO 650 mg Q4H PRN Administration PAIN LEVEL 1-5 Albuterol Sulfate 1 amp 12/22/18 22:08 12/25/18 02:15 Ventolin 0.083% Nebulizer Soln - NEB 1 amp Q4H PRN Administration SHORT OF BREATH/WHEEZING Albuterol/Ipratropium 1 amp 12/23/18 08:00 12/25/18 12:16 Duoneb - NEB Not Given RQID JACKY Amiodarone HCl 200 mg 12/23/18 10:00 12/25/18 09:53 Cordarone - PO 200 mg DAILY JACKY Administration Amlodipine Besylate 10 mg 12/23/18 10:00 12/25/18 09:53 Norvasc - PO 10 mg DAILY JACKY Administration Apixaban 2.5 mg 12/23/18 10:00 12/25/18 09:53 Eliquis - PO 2.5 mg BID JACKY Administration Atorvastatin Calcium 20 mg 12/23/18 22:00 12/24/18 21:44 Lipitor - PO 20 mg HS JACKY Administration Docusate Sodium 100 mg 12/22/18 22:12 Colace - PO Q8H PRN CONSTIPATION Duloxetine HCl 60 mg 12/23/18 10:00 12/25/18 09:52 Cymbalta - PO 60 mg DAILY JACKY Administration Gabapentin 300 mg 12/23/18 06:00 12/25/18 06:11 Neurontin - PO 300 mg TID JACKY Administration Ceftriaxone Sodium 1 gm/ 50 mls @ 100 mls/hr 12/22/18 22:30 12/25/18 09:54 Dextrose IVPB 100 mls/hr DAILY JACKY Administration Protocol Sodium Chloride 250 mls @ 3,000 mls/hr 12/23/18 12:35 Normal Saline - IV 12/24/18 12:35 PRN PRN Hypotension during Dialysis Lidocaine 1 patch 12/23/18 10:00 12/25/18 09:55 Lidoderm Patch - TP 1 patch DAILY JACKY Administration Melatonin 5 mg 12/25/18 00:33 12/25/18 00:47 Melatonin PO 5 mg HS PRN Administration INSOMNIA Methylprednisolone Sodium Succinate 40 mg 12/23/18 15:00 12/25/18 09:53 Solu-Medrol - IVPUSH 40 mg Q6H-IV JACKY Administration Metoprolol Succinate 25 mg 12/23/18 10:00 12/25/18 09:53 Toprol Xl - PO 25 mg DAILY JACKY Administration Miscellaneous 1 each 12/23/18 22:00 12/24/18 21:46 Lidoderm Patch Removal MC 1 each DAILY@2200 JACKY Administration Nicotine 7 mg 12/23/18 10:00 12/25/18 09:55 Nicoderm Patch - TD 7 mg DAILY JACKY Administration Senna 1 tab 12/23/18 22:00 12/24/18 21:44 Senna - PO 1 tab HS JACKY Administration Tramadol HCl 50 mg 12/22/18 22:15 12/25/18 04:32 Ultram - PO 50 mg Q6H PRN Administration PAIN LEVEL 6-10 Impression 1. ESRD 2. non compliance with HD schedule 3. chronic back pain 4. anemia 5. anxiety 6. hx of nsaid use 7. chf diastolic 8. possible complex renal cyst 9. HLD 10. nephrolithiasis 11. copd exacerbation 12. left internal capsule infarct 13. hematoma of right axilla Plan - HD tomorrow - pt has been signing off of HD early - cont steroids - dyspnea likely from copd - epogen for anemia - renal diet - smoking cessation
--- NOTE | 2018-12-25 18:54 | PN ---
Progress Note, Physician Chief Complaint: shortness of breath History of Present Illness: Patient is a 63 year old female with a past medical history of asthma, ESRD on HD, chronic LBP, anxiety, tobacco dependence, HTN, afib (on amiodarone and eliquis). She presents to the Ed for acute shortness of breath and chest discomfort. chest xray: new bibasilar changes - Current Medication List Current Medications: Active Medications Acetaminophen (Tylenol -) 650 mg PO Q4H PRN PRN Reason: PAIN LEVEL 1-5 Last Admin: 12/25/18 03:12 Dose: 650 mg Albuterol Sulfate (Ventolin 0.083% Nebulizer Soln -) 1 amp NEB Q4H PRN PRN Reason: SHORT OF BREATH/WHEEZING Last Admin: 12/25/18 02:15 Dose: 1 amp Albuterol/Ipratropium (Duoneb -) 1 amp NEB RQID [facility] Last Admin: 12/25/18 15:55 Dose: 1 amp Amiodarone HCl (Cordarone -) 200 mg PO DAILY [facility] Last Admin: 12/25/18 09:53 Dose: 200 mg Amlodipine Besylate (Norvasc -) 10 mg PO DAILY [facility] Last Admin: 12/25/18 09:53 Dose: 10 mg Apixaban (Eliquis -) 2.5 mg PO BID [facility] Last Admin: 12/25/18 09:53 Dose: 2.5 mg Atorvastatin Calcium (Lipitor -) 20 mg PO HS [facility] Last Admin: 12/24/18 21:44 Dose: 20 mg Docusate Sodium (Colace -) 100 mg PO Q8H PRN PRN Reason: CONSTIPATION Duloxetine HCl (Cymbalta -) 60 mg PO DAILY [facility] Last Admin: 12/25/18 09:52 Dose: 60 mg Epoetin Zachery (Epogen -) 10,000 unit IVPUSH ONCE ONE Stop: 12/26/18 13:53 Gabapentin (Neurontin -) 300 mg PO TID [facility] Last Admin: 12/25/18 14:14 Dose: 300 mg Ceftriaxone Sodium 1 gm/ (Dextrose) 50 mls @ 100 mls/hr IVPB DAILY [facility]; Protocol Last Admin: 12/25/18 09:54 Dose: 100 mls/hr Sodium Chloride (Normal Saline -) 250 mls @ 3,000 mls/hr IV PRN PRN PRN Reason: Hypotension during Dialysis Stop: 12/24/18 12:35 Sodium Chloride (Normal Saline -) 250 mls @ 3,000 mls/hr IV PRN PRN PRN Reason: Hypotension during Dialysis Stop: 12/26/18 13:52 Lidocaine (Lidoderm Patch -) 1 patch TP DAILY [facility] Last Admin: 12/25/18 09:55 Dose: 1 patch Melatonin (Melatonin) 5 mg PO HS PRN PRN Reason: INSOMNIA Last Admin: 12/25/18 00:47 Dose: 5 mg Methylprednisolone Sodium Succinate (Solu-Medrol -) 40 mg IVPUSH Q6H-IV [facility] Last Admin: 12/25/18 14:13 Dose: 40 mg Metoprolol Succinate (Toprol Xl -) 25 mg PO DAILY [facility] Last Admin: 12/25/18 09:53 Dose: 25 mg Miscellaneous (Lidoderm Patch Removal) 1 each MC DAILY@2200 [facility] Last Admin: 12/24/18 21:46 Dose: 1 each Nicotine (Nicoderm Patch -) 7 mg TD DAILY [facility] Last Admin: 12/25/18 09:55 Dose: 7 mg Senna (Senna -) 1 tab PO HS [facility] Last Admin: 12/24/18 21:44 Dose: 1 tab Tramadol HCl (Ultram -) 50 mg PO Q6H PRN PRN Reason: PAIN LEVEL 6-10 Last Admin: 12/25/18 14:13 Dose: 50 mg - Objective Vital Signs: Vital Signs Temperature 97.6 F 12/25/18 16:39 Pulse Rate 89 12/25/18 16:39 Respiratory Rate 20 12/25/18 10:00 Blood Pressure 117/64 12/25/18 16:39 O2 Sat by Pulse Oximetry (%) 92 L 12/25/18 10:00 Constitutional: Yes: No Distress HENT: Yes: Normocephalic Neck: Yes: Trachea Midline Cardiovascular: Yes: Regular Rate and Rhythm Respiratory: Yes: Rhonchi Gastrointestinal: Yes: Normal Bowel Sounds ...Rectal Exam: Yes: Deferred Extremities: Yes: WNL Edema: No Peripheral Pulses WNL: No Integumentary: Yes: WNL Neurological: Yes: Alert, Oriented Psychiatric: Yes: Alert, Oriented Labs: CBC, BMP 12/25/18 05:10 12/25/18 05:10 INR, PTT INR 1.21 (0.83-1.09) H 12/22/18 18:40 Problem List - Problems (1) Acute on chronic kidney failure Assessment/Plan: s/p dialysis yesterday. right upper arm fistula renal following Code(s): N17.9 - ACUTE KIDNEY FAILURE, UNSPECIFIED; N18.9 - CHRONIC KIDNEY DISEASE, UNSPECIFIED Qualifiers: Acute renal failure type: unspecified Chronic kidney disease stage: stage 4 (severe) Qualified Code(s): N17.9 - Acute kidney failure, unspecified; N18.4 - Chronic kidney disease, stage 4 (severe) (2) COPD (chronic obstructive pulmonary disease) Assessment/Plan: on solumedrol taper duonebs scheduled still sounds congested supplemental oxygen pulmonary consulted Code(s): J44.9 - CHRONIC OBSTRUCTIVE PULMONARY DISEASE, UNSPECIFIED Qualifiers: COPD type: unspecified COPD Qualified Code(s): J44.9 - Chronic obstructive pulmonary disease, unspecified (3) Shortness of breath at rest Code(s): R06.02 - SHORTNESS OF BREATH (4) Hypertension Assessment/Plan: continue toprol and norvasc Code(s): I10 - ESSENTIAL (PRIMARY) HYPERTENSION Qualifiers: Hypertension type: essential hypertension Qualified Code(s): I10 - Essential (primary) hypertension (5) Arm pain, right Assessment/Plan: s/p hematoma on last admission. hematoma size improving Code(s): M79.601 - PAIN IN RIGHT ARM (6) Atrial fibrillation Assessment/Plan: on eliquis bid. Code(s): I48.91 - UNSPECIFIED ATRIAL FIBRILLATION Qualifiers: Atrial fibrillation type: paroxysmal Qualified Code(s): I48.0 - Paroxysmal atrial fibrillation (7) Prophylactic measure Assessment/Plan: fen renal diet monitor electrolytes on eliquis fall precautions Code(s): Z29.9 - ENCOUNTER FOR PROPHYLACTIC MEASURES, UNSPECIFIED Visit type - Emergency Visit Emergency Visit: Yes ED Registration Date: 12/22/18 Care time: The patient presented to the Emergency Department on the above date and was hospitalized for further evaluation of their emergent condition. - New Patient This patient is new to me today: No - Critical Care Critical Care patient: No - Discharge Referral Referred to [facility] No
[2018-12-25] MEDS ORDERED: ONDANSETRON 4 MG/2 ML VIAL IVPUSH ONE (19:42)
[2018-12-25] MEDS: SENNOSIDES 8.6MG TABLET (FP) PO SCH (21:12)
[2018-12-25] MEDS: ATORVASTATIN CA 20 MG TABLET (FP) PO SCH (21:12)
[2018-12-25] MEDS: LIDOCAINE PATCH REMOVAL MC SCH (21:12)
[2018-12-26] MEDS: methylPREDNISolone NA SUCC 40 MG/1 ML VIAL IVPUSH SCH ×4 (03:49→21:35)
[2018-12-26] MEDS: GABAPENTIN 300 MG CAPSULE (FP) PO SCH ×3 (06:39→21:35)
[2018-12-26] MEDS: ALBUTEROL SO4 2.5/IPRATROPIUM 0.5 INH SOL 3 ML VIAL.NEB. NEB SCH ×4 (07:15→20:03)
[2018-12-26] MEDS: DULoxetine HCL 30 MG CAPSULE.DR PO SCH (09:08)
[2018-12-26] MEDS: LIDOCAINE 5% TOPICAL PATCH TP SCH (09:08)
[2018-12-26] MEDS: NICOTINE 7 MG/24 HOURS TOPICAL PATCH TD SCH (09:08)
[2018-12-26] MEDS: amLODIPine BESYLATE 10 MG TABLET (FP) PO SCH (09:08)
[2018-12-26] MEDS: AMIODARONE HCL 200 MG TABLET (FP) PO SCH (09:08)
[2018-12-26] MEDS: APIXABAN 2.5 MG TABLET PO SCH ×2 (09:08→21:34)
[2018-12-26] MEDS: metoPROLOL SUCCINATE 25 MG TAB.SR.24H (FP) PO SCH (09:08)
--- NOTE | 2018-12-26 09:33 | PN ---
Progress Note, Physician Chief Complaint: Events noted Not in distress History of Present Illness: Patient was seen and examined. Awake and alert. Chart was reviewed Hematoma noted Denies chest pain or SOB - Current Medication List Current Medications: Active Medications Acetaminophen (Tylenol -) 650 mg PO Q4H PRN PRN Reason: PAIN LEVEL 1-5 Last Admin: 12/25/18 20:30 Dose: 650 mg Albuterol Sulfate (Ventolin 0.083% Nebulizer Soln -) 1 amp NEB Q4H PRN PRN Reason: SHORT OF BREATH/WHEEZING Last Admin: 12/25/18 23:41 Dose: 1 amp Albuterol/Ipratropium (Duoneb -) 1 amp NEB RQID [facility] Last Admin: 12/26/18 07:15 Dose: 1 amp Amiodarone HCl (Cordarone -) 200 mg PO DAILY [facility] Last Admin: 12/26/18 09:08 Dose: 200 mg Amlodipine Besylate (Norvasc -) 10 mg PO DAILY [facility] Last Admin: 12/26/18 09:08 Dose: 10 mg Apixaban (Eliquis -) 2.5 mg PO BID [facility] Last Admin: 12/26/18 09:08 Dose: 2.5 mg Atorvastatin Calcium (Lipitor -) 20 mg PO HS [facility] Last Admin: 12/25/18 21:12 Dose: 20 mg Docusate Sodium (Colace -) 100 mg PO Q8H PRN PRN Reason: CONSTIPATION Duloxetine HCl (Cymbalta -) 60 mg PO DAILY [facility] Last Admin: 12/26/18 09:08 Dose: 60 mg Epoetin Zachery (Epogen -) 10,000 unit IVPUSH ONCE ONE Stop: 12/26/18 13:53 Gabapentin (Neurontin -) 300 mg PO TID [facility] Last Admin: 12/26/18 06:39 Dose: 300 mg Sodium Chloride (Normal Saline -) 250 mls @ 3,000 mls/hr IV PRN PRN PRN Reason: Hypotension during Dialysis Stop: 12/24/18 12:35 Sodium Chloride (Normal Saline -) 250 mls @ 3,000 mls/hr IV PRN PRN PRN Reason: Hypotension during Dialysis Stop: 12/26/18 13:52 Lidocaine (Lidoderm Patch -) 1 patch TP DAILY [facility] Last Admin: 12/26/18 09:08 Dose: 1 patch Melatonin (Melatonin) 5 mg PO HS PRN PRN Reason: INSOMNIA Last Admin: 12/25/18 21:12 Dose: 5 mg Methylprednisolone Sodium Succinate (Solu-Medrol -) 40 mg IVPUSH Q6H-IV [facility] Last Admin: 12/26/18 09:08 Dose: 40 mg Metoprolol Succinate (Toprol Xl -) 25 mg PO DAILY [facility] Last Admin: 12/26/18 09:08 Dose: 25 mg Miscellaneous (Lidoderm Patch Removal) 1 each MC DAILY@2200 [facility] Last Admin: 12/25/18 21:12 Dose: 1 each Nicotine (Nicoderm Patch -) 7 mg TD DAILY [facility] Last Admin: 12/26/18 09:08 Dose: 7 mg Senna (Senna -) 1 tab PO HS [facility] Last Admin: 12/25/18 21:12 Dose: 1 tab - Objective Vital Signs: Vital Signs Temperature 97.6 F 12/26/18 06:00 Pulse Rate 80 12/26/18 06:00 Respiratory Rate 22 H 12/26/18 06:00 Blood Pressure 129/68 12/26/18 06:00 O2 Sat by Pulse Oximetry (%) 93 L 12/25/18 22:00 Eyes: Yes: PERRL HENT: Yes: Atraumatic Neck: Yes: Supple Cardiovascular: Yes: Regular Rate and Rhythm, S1, S2 Respiratory: Yes: Diminished Gastrointestinal: Yes: Normal Bowel Sounds, Soft. No: Tenderness Edema: No Additional Findings/Remarks: - Review of Systems Constitutional: denies: Chills, Fever Cardiovascular: denies: Chest Pain, Palpitations, Shortness of Breath Respiratory: denies: Cough, Hemoptysis, Orthopnea, PND, SOB, SOB on Exertion Gastrointestinal: denies: Abdominal Pain, Constipation, Diarrhea, Melena, Nausea , Rectal Bleeding, Vomiting Genitourinary: denies: Dysuria, Hematuria Musculoskeletal: denies: Back Pain Neurological: denies: Dizziness, Headache, Seizure, Syncope Labs: CBC, BMP 12/25/18 05:10 12/25/18 05:10 Problem List - Problems (1) CAD (coronary artery disease) Code(s): I25.10 - ATHSCL HEART DISEASE OF [place] CORONARY ARTERY W/O ANG PCTRS (2) Acute on chronic kidney failure Code(s): N17.9 - ACUTE KIDNEY FAILURE, UNSPECIFIED; N18.9 - CHRONIC KIDNEY DISEASE, UNSPECIFIED Qualifiers: Acute renal failure type: unspecified Chronic kidney disease stage: stage 4 (severe) Qualified Code(s): N17.9 - Acute kidney failure, unspecified; N18.4 - Chronic kidney disease, stage 4 (severe) (3) Anemia Code(s): D64.9 - ANEMIA, UNSPECIFIED Qualifiers: Anemia type: due to chronic kidney disease Chronic kidney disease stage: on chronic dialysis Qualified Code(s): N18.6 - End stage renal disease; D63.1 - Anemia in chronic kidney disease; Z99.2 - Dependence on renal dialysis (4) Atrial fibrillation Code(s): I48.91 - UNSPECIFIED ATRIAL FIBRILLATION Qualifiers: Atrial fibrillation type: paroxysmal Qualified Code(s): I48.0 - Paroxysmal atrial fibrillation (5) COPD (chronic obstructive pulmonary disease) Code(s): J44.9 - CHRONIC OBSTRUCTIVE PULMONARY DISEASE, UNSPECIFIED Qualifiers: COPD type: unspecified COPD Qualified Code(s): J44.9 - Chronic obstructive pulmonary disease, unspecified (6) Chronic kidney disease (CKD) Code(s): N18.9 - CHRONIC KIDNEY DISEASE, UNSPECIFIED Qualifiers: Chronic kidney disease stage: stage 4 (severe) Qualified Code(s): N18.4 - Chronic kidney disease, stage 4 (severe) (7) ESRD (end stage renal disease) on dialysis Code(s): N18.6 - END STAGE RENAL DISEASE; Z99.2 - DEPENDENCE ON RENAL DIALYSIS (8) Hematoma of axilla Code(s): S40.029A - CONTUSION OF UNSPECIFIED UPPER ARM, INITIAL ENCOUNTER (9) Hyperlipidemia Code(s): E78.5 - HYPERLIPIDEMIA, UNSPECIFIED Qualifiers: Hyperlipidemia type: pure hypercholesterolemia Qualified Code(s): E78.00 - Pure hypercholesterolemia, unspecified; E78.0 - Pure hypercholesterolemia (10) Hypertension Code(s): I10 - ESSENTIAL (PRIMARY) HYPERTENSION Qualifiers: Hypertension type: essential hypertension Qualified Code(s): I10 - Essential (primary) hypertension Assessment/Plan 1. Acute on chronic diastolic CHF improving 2. ESRD on HD via AV fistula and non compliance with HD schedule 3. HTN 4. Hypercholesterolemia 5. PAF on DOAC/Eliquis 6. Bronchial asthma/COPD 7. Right pectoral and arm hematoma 8. Anemia of CKD 9. Left internal capsule infarct PLAN: 1. Continue Metoprolol ER 25 mg QD, Amlodipine 10 mg QD, Amiodarone 200 mg QD and Atorvastatin 20 mg QHS 2. Continue Eliquis 2.5 mg BID. 3. HD as per Renal 4. Bronchodilator, short course steroids, antibiotics and O2 as needed 5. Chest CT noted Further plans are to follow Vincent Pérez MD
--- NOTE | 2018-12-26 10:47 | PN ---
Progress Note (short form) - Note Progress Note: PULMONARY vss/afebrile Resting comfortably Constitutional: Yes: Well Nourished, Calm Eyes: Yes: WNL HENT: Yes: WNL Neck: Yes: WNL Cardiovascular: Yes: Regular Rate and Rhythm, S1 Respiratory: Yes: Rhonchi (bilateral wheezes and rhonchi), Wheezes Gastrointestinal: Yes: Normal Bowel Sounds, Soft Extremities: Yes: WNL Edema: No Labs/notes/images/meds: noted IMP ACUTE RESPIRATORY DISTRESS COPD WITH ACUTE EXACERBATION VOLUME OVERLOAD ACUTE ON CHRONIC DIASTOLIC CHF ESRD ON HD AFIB HTN DEPRESSION H/O LUNG NODULE ANXIETY TOBACCO ABUSE PLAN INHALED BRONCHODILATORS IV STEROIDS SAME DOSE SUPPLEMENTAL O2 HD PER RENAL SMOKING CESSATION COUNSELED Tejinder WAKEFIELD MD
--- NOTE | 2018-12-26 12:37 | PN ---
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 She presents to the Ed for acute shortness of breath and chest discomfort. chest xray: new bibasilar changes - Current Medication List Current Medications: Active Medications Acetaminophen (Tylenol -) 650 mg PO Q4H PRN PRN Reason: PAIN LEVEL 1-5 Last Admin: 12/25/18 20:30 Dose: 650 mg Albuterol Sulfate (Ventolin 0.083% Nebulizer Soln -) 1 amp NEB Q4H PRN PRN Reason: SHORT OF BREATH/WHEEZING Last Admin: 12/25/18 23:41 Dose: 1 amp Albuterol/Ipratropium (Duoneb -) 1 amp NEB RQID [facility] Last Admin: 12/26/18 11:16 Dose: 1 amp Amiodarone HCl (Cordarone -) 200 mg PO DAILY [facility] Last Admin: 12/26/18 09:08 Dose: 200 mg Amlodipine Besylate (Norvasc -) 10 mg PO DAILY [facility] Last Admin: 12/26/18 09:08 Dose: 10 mg Apixaban (Eliquis -) 2.5 mg PO BID [facility] Last Admin: 12/26/18 09:08 Dose: 2.5 mg Atorvastatin Calcium (Lipitor -) 20 mg PO HS [facility] Last Admin: 12/25/18 21:12 Dose: 20 mg Docusate Sodium (Colace -) 100 mg PO Q8H PRN PRN Reason: CONSTIPATION Duloxetine HCl (Cymbalta -) 60 mg PO DAILY [facility] Last Admin: 12/26/18 09:08 Dose: 60 mg Epoetin Zachery (Epogen -) 10,000 unit IVPUSH ONCE ONE Stop: 12/26/18 13:53 Gabapentin (Neurontin -) 300 mg PO TID [facility] Last Admin: 12/26/18 06:39 Dose: 300 mg Sodium Chloride (Normal Saline -) 250 mls @ 3,000 mls/hr IV PRN PRN PRN Reason: Hypotension during Dialysis Stop: 12/24/18 12:35 Sodium Chloride (Normal Saline -) 250 mls @ 3,000 mls/hr IV PRN PRN PRN Reason: Hypotension during Dialysis Stop: 12/26/18 13:52 Lidocaine (Lidoderm Patch -) 1 patch TP DAILY [facility] Last Admin: 12/26/18 09:08 Dose: 1 patch Lidocaine/Prilocaine (Emla -) 1,100.54 applic TP ONCE ONE Stop: 12/26/18 12:37 Lorazepam (Ativan -) 1 mg PO BID [facility] Melatonin (Melatonin) 5 mg PO HS PRN PRN Reason: INSOMNIA Last Admin: 12/25/18 21:12 Dose: 5 mg Methylprednisolone Sodium Succinate (Solu-Medrol -) 40 mg IVPUSH Q6H-IV [facility] Last Admin: 12/26/18 09:08 Dose: 40 mg Metoprolol Succinate (Toprol Xl -) 25 mg PO DAILY [facility] Last Admin: 12/26/18 09:08 Dose: 25 mg Miscellaneous (Lidoderm Patch Removal) 1 each MC DAILY@2200 [facility] Last Admin: 12/25/18 21:12 Dose: 1 each Nicotine (Nicoderm Patch -) 7 mg TD DAILY [facility] Last Admin: 12/26/18 09:08 Dose: 7 mg Senna (Senna -) 1 tab PO HS [facility] Last Admin: 12/25/18 21:12 Dose: 1 tab - Objective Vital Signs: Vital Signs Temperature 98.1 F 12/26/18 09:53 Pulse Rate 80 12/26/18 09:53 Respiratory Rate 20 12/26/18 09:53 Blood Pressure 121/71 12/26/18 09:53 O2 Sat by Pulse Oximetry (%) 96 12/26/18 09:53 Constitutional: Yes: Anxious Eyes: Yes: WNL HENT: Yes: Atraumatic Neck: Yes: Supple Cardiovascular: Yes: Regular Rate and Rhythm Respiratory: Yes: SOB, Wheezes Gastrointestinal: Yes: Soft ...Rectal Exam: Yes: Deferred Genitourinary: Yes: WNL Labs: CBC, BMP 12/25/18 05:10 12/25/18 05:10 INR, PTT INR 1.21 (0.83-1.09) H 12/22/18 18:40 Problem List - Problems (1) Acute on chronic kidney failure Assessment/Plan: for dialysis today right upper arm fistula renal following Code(s): N17.9 - ACUTE KIDNEY FAILURE, UNSPECIFIED; N18.9 - CHRONIC KIDNEY DISEASE, UNSPECIFIED Qualifiers: Acute renal failure type: unspecified Chronic kidney disease stage: stage 4 (severe) Qualified Code(s): N17.9 - Acute kidney failure, unspecified; N18.4 - Chronic kidney disease, stage 4 (severe) (2) COPD (chronic obstructive pulmonary disease) Assessment/Plan: on solumedrol taper duonebs scheduled still sounds congested supplemental oxygen pulmonary consulted Code(s): J44.9 - CHRONIC OBSTRUCTIVE PULMONARY DISEASE, UNSPECIFIED Qualifiers: COPD type: unspecified COPD Qualified Code(s): J44.9 - Chronic obstructive pulmonary disease, unspecified (3) Shortness of breath at rest Code(s): R06.02 - SHORTNESS OF BREATH (4) Hypertension Assessment/Plan: continue toprol and norvasc Code(s): I10 - ESSENTIAL (PRIMARY) HYPERTENSION Qualifiers: Hypertension type: essential hypertension Qualified Code(s): I10 - Essential (primary) hypertension (5) Arm pain, right Assessment/Plan: s/p hematoma on last admission. hematoma size improving Code(s): M79.601 - PAIN IN RIGHT ARM (6) Atrial fibrillation Assessment/Plan: on eliquis bid. Code(s): I48.91 - UNSPECIFIED ATRIAL FIBRILLATION Qualifiers: Atrial fibrillation type: paroxysmal Qualified Code(s): I48.0 - Paroxysmal atrial fibrillation (7) Prophylactic measure Assessment/Plan: fen renal diet monitor electrolytes on eliquis fall precautions Code(s): Z29.9 - ENCOUNTER FOR PROPHYLACTIC MEASURES, UNSPECIFIED Visit type - Emergency Visit Emergency Visit: Yes ED Registration Date: 12/22/18 Care time: The patient presented to the Emergency Department on the above date and was hospitalized for further evaluation of their emergent condition. - New Patient This patient is new to me today: No - Critical Care Critical Care patient: No - Discharge Referral Referred to [facility] Med P.C.: No
[2018-12-26] MEDS ORDERED: POLYETHYLENE GLYCOL 3350 119 GM BTL PO ONE (12:53)
[2018-12-26] MEDS: LORazepam 1 MG TABLET PO SCH ×2 (13:09→21:35)
[2018-12-26] MEDS ORDERED: LIDOCAINE 2.5%/PRILOCAINE 2.5% (5 Gram/TUBE) TP ONE (13:15)
[2018-12-26] MEDS ORDERED: diphenhydrAMINE HCL 25 MG CAPSULE (FP) PO PRN (13:34)
--- NOTE | 2018-12-26 13:38 | PN ---
Progress Note, Physician History of Present Illness: Pt seen and examined at bedside. She is awake and alert. She feels anxious today. - Current Medication List Current Medications: Active Medications Acetaminophen (Tylenol -) 650 mg PO Q4H PRN PRN Reason: PAIN LEVEL 1-5 Last Admin: 12/25/18 20:30 Dose: 650 mg Albuterol Sulfate (Ventolin 0.083% Nebulizer Soln -) 1 amp NEB Q4H PRN PRN Reason: SHORT OF BREATH/WHEEZING Last Admin: 12/25/18 23:41 Dose: 1 amp Albuterol/Ipratropium (Duoneb -) 1 amp NEB RQID [facility] Last Admin: 12/26/18 11:16 Dose: 1 amp Amiodarone HCl (Cordarone -) 200 mg PO DAILY [facility] Last Admin: 12/26/18 09:08 Dose: 200 mg Amlodipine Besylate (Norvasc -) 10 mg PO DAILY [facility] Last Admin: 12/26/18 09:08 Dose: 10 mg Apixaban (Eliquis -) 2.5 mg PO BID [facility] Last Admin: 12/26/18 09:08 Dose: 2.5 mg Atorvastatin Calcium (Lipitor -) 20 mg PO HS [facility] Last Admin: 12/25/18 21:12 Dose: 20 mg Diphenhydramine HCl (Benadryl -) 25 mg PO Q6H PRN PRN Reason: FOR ITCHING Docusate Sodium (Colace -) 100 mg PO Q8H PRN PRN Reason: CONSTIPATION Duloxetine HCl (Cymbalta -) 60 mg PO DAILY [facility] Last Admin: 12/26/18 09:08 Dose: 60 mg Epoetin Zachery (Epogen -) 10,000 unit IVPUSH ONCE ONE Stop: 12/26/18 13:53 Gabapentin (Neurontin -) 300 mg PO TID [facility] Last Admin: 12/26/18 13:09 Dose: 300 mg Sodium Chloride (Normal Saline -) 250 mls @ 3,000 mls/hr IV PRN PRN PRN Reason: Hypotension during Dialysis Stop: 12/24/18 12:35 Sodium Chloride (Normal Saline -) 250 mls @ 3,000 mls/hr IV PRN PRN PRN Reason: Hypotension during Dialysis Stop: 12/26/18 13:52 Lidocaine (Lidoderm Patch -) 1 patch TP DAILY [facility] Last Admin: 12/26/18 09:08 Dose: 1 patch Lorazepam (Ativan -) 1 mg PO BID [facility] Last Admin: 12/26/18 13:09 Dose: 1 mg Melatonin (Melatonin) 5 mg PO HS PRN PRN Reason: INSOMNIA Last Admin: 12/25/18 21:12 Dose: 5 mg Methylprednisolone Sodium Succinate (Solu-Medrol -) 40 mg IVPUSH Q6H-IV [facility] Last Admin: 12/26/18 09:08 Dose: 40 mg Metoprolol Succinate (Toprol Xl -) 25 mg PO DAILY [facility] Last Admin: 12/26/18 09:08 Dose: 25 mg Miscellaneous (Lidoderm Patch Removal) 1 each MC DAILY@2200 [facility] Last Admin: 12/25/18 21:12 Dose: 1 each Nicotine (Nicoderm Patch -) 7 mg TD DAILY [facility] Last Admin: 12/26/18 09:08 Dose: 7 mg Senna (Senna -) 1 tab PO HS [facility] Last Admin: 12/25/18 21:12 Dose: 1 tab - Objective Vital Signs: Vital Signs Temperature 98.1 F 12/26/18 09:53 Pulse Rate 80 12/26/18 09:53 Respiratory Rate 20 12/26/18 09:53 Blood Pressure 121/71 12/26/18 09:53 O2 Sat by Pulse Oximetry (%) 96 12/26/18 09:53 Constitutional: Yes: Calm Eyes: Yes: Conjunctiva Clear HENT: Yes: Atraumatic Neck: Yes: Supple Cardiovascular: Yes: S1, S2 Respiratory: Yes: CTA Bilaterally Gastrointestinal: Yes: Normal Bowel Sounds, Soft Genitourinary: Yes: WNL Musculoskeletal: Yes: WNL Edema: No Neurological: Yes: Oriented Psychiatric: Yes: Oriented Labs: CBC, BMP 12/25/18 05:10 12/25/18 05:10 INR, PTT INR 1.21 (0.83-1.09) H 12/22/18 18:40 Problem List - Problems (1) COPD (chronic obstructive pulmonary disease) Code(s): J44.9 - CHRONIC OBSTRUCTIVE PULMONARY DISEASE, UNSPECIFIED Qualifiers: COPD type: unspecified COPD Qualified Code(s): J44.9 - Chronic obstructive pulmonary disease, unspecified (2) ESRD (end stage renal disease) Code(s): N18.6 - END STAGE RENAL DISEASE Assessment/Plan Current Medications Generic Name Dose Route Start Last Admin Trade Name Freq PRN Reason Stop Dose Admin Acetaminophen 650 mg 12/22/18 22:12 12/25/18 20:30 Tylenol - PO 650 mg Q4H PRN Administration PAIN LEVEL 1-5 Albuterol Sulfate 1 amp 12/22/18 22:08 12/25/18 23:41 Ventolin 0.083% Nebulizer Soln - NEB 1 amp Q4H PRN Administration SHORT OF BREATH/WHEEZING Albuterol/Ipratropium 1 amp 12/23/18 08:00 12/26/18 11:16 Duoneb - NEB 1 amp RQID JACKY Administration Amiodarone HCl 200 mg 12/23/18 10:00 12/26/18 09:08 Cordarone - PO 200 mg DAILY JACKY Administration Amlodipine Besylate 10 mg 12/23/18 10:00 12/26/18 09:08 Norvasc - PO 10 mg DAILY JACKY Administration Apixaban 2.5 mg 12/23/18 10:00 12/26/18 09:08 Eliquis - PO 2.5 mg BID JACKY Administration Atorvastatin Calcium 20 mg 12/23/18 22:00 12/25/18 21:12 Lipitor - PO 20 mg HS JACKY Administration Diphenhydramine HCl 25 mg 12/26/18 13:34 Benadryl - PO Q6H PRN FOR ITCHING Docusate Sodium 100 mg 12/22/18 22:12 Colace - PO Q8H PRN CONSTIPATION Duloxetine HCl 60 mg 12/23/18 10:00 12/26/18 09:08 Cymbalta - PO 60 mg DAILY JACKY Administration Epoetin Zachery 10,000 unit 12/26/18 13:52 Epogen - IVPUSH 12/26/18 13:53 ONCE ONE Gabapentin 300 mg 12/23/18 06:00 12/26/18 13:09 Neurontin - PO 300 mg TID JACYK Administration Sodium Chloride 250 mls @ 3,000 mls/hr 12/23/18 12:35 Normal Saline - IV 12/24/18 12:35 PRN PRN Hypotension during Dialysis Sodium Chloride 250 mls @ 3,000 mls/hr 12/25/18 13:52 Normal Saline - IV 12/26/18 13:52 PRN PRN Hypotension during Dialysis Lidocaine 1 patch 12/23/18 10:00 12/26/18 09:08 Lidoderm Patch - TP 1 patch DAILY JACKY Administration Lorazepam 1 mg 12/26/18 12:45 12/26/18 13:09 Ativan - PO 1 mg BID JACKY Administration Melatonin 5 mg 12/25/18 00:33 12/25/18 21:12 Melatonin PO 5 mg HS PRN Administration INSOMNIA Methylprednisolone Sodium Succinate 40 mg 12/23/18 15:00 12/26/18 09:08 Solu-Medrol - IVPUSH 40 mg Q6H-IV JACKY Administration Metoprolol Succinate 25 mg 12/23/18 10:00 12/26/18 09:08 Toprol Xl - PO 25 mg DAILY JACK[facility] Administration Miscellaneous 1 each 12/23/18 22:00 12/25/18 21:12 Lidoderm Patch Removal MC 1 each DAILY@2200 JACKY Administration Nicotine 7 mg 12/23/18 10:00 12/26/18 09:08 Nicoderm Patch - TD 7 mg DAILY [facility]ACK[facility] Administration Senna 1 tab 12/23/18 22:00 12/25/18 21:12 Senna - PO 1 tab HS JACKY Administration Impression 1. ESRD 2. non compliance with HD schedule 3. chronic back pain 4. anemia 5. anxiety 6. hx of nsaid use 7. chf diastolic 8. possible complex renal cyst 9. HLD 10. nephrolithiasis 11. copd exacerbation 12. left internal capsule infarct 13. hematoma of right axilla Plan - HD today - cont current management - compliance is a problem - will see again on Saturday - recall if needed over weekend - dyspnea likely from copd - epogen for anemia - renal diet - smoking cessation
[2018-12-26] MEDS ORDERED: EPOETIN ALFA 10,000 UNIT/1 ML VIAL IVPUSH ONE (15:00)
[2018-12-26] MEDS ORDERED: PT OWN MED DRAWER 7, Y5N ONE ×2 (16:12→21:32)
[2018-12-26 17:40] LABS: HEMATOCRIT 23.9 % (32.4-45.2); HEMOGLOBIN 7.9 GM/dL (10.7-15.3); MCH 30.6 pg (25.7-33.7); MEAN CELL VOLUME 92.9 fl (80-96); PLATELET COUNT 345 K/MM3 (134-434); RBC 2.58 M/mm3 (3.60-5.2); RDW 17.9 % (11.6-15.6)
[2018-12-26 18:05] LABS: CALCIUM 7.4 mg/dL (8.5-10.1); CREATININE 6.6 mg/dL (0.55-1.3); POTASSIUM 4.6 mmol/L (3.5-5.1)
[2018-12-26 18:08] LABS: BLOOD UREA NITROGEN 109.2 mg/dL (7-18)
[2018-12-26] MEDS: ATORVASTATIN CA 20 MG TABLET (FP) PO SCH (21:34)
[2018-12-26] MEDS: ACETAMINOPHEN 325 MG TABLET (FP) PO PRN (21:34)
[2018-12-26] MEDS: SENNOSIDES 8.6MG TABLET (FP) PO SCH (21:34)
[2018-12-26] MEDS: LIDOCAINE PATCH REMOVAL MC SCH (21:35)
[2018-12-26] MEDS: MELATONIN 5 MG TABLETS PO PRN (23:16)
[2018-12-26] MEDS: ALBUTEROL SO4 0.083% IH SOL 2.5 MG/3 ML VIAL.NEB. NEB PRN (23:47)
[2018-12-27] MEDS: methylPREDNISolone NA SUCC 40 MG/1 ML VIAL IVPUSH SCH ×3 (03:17→17:59)
[2018-12-27] MEDS: GABAPENTIN 300 MG CAPSULE (FP) PO SCH ×3 (06:20→22:33)
[2018-12-27 07:14] LABS: HEMATOCRIT 24.6 % (32.4-45.2); HEMOGLOBIN 8.3 GM/dL (10.7-15.3); MCH 31.5 pg (25.7-33.7); MCHC 33.9 g/dl (32.0-36.0); MEAN CELL VOLUME 93.1 fl (80-96); MEAN PLT VOLUME 7.9 fl (7.5-11.1); PLATELET COUNT 315 K/MM3 (134-434); RBC 2.64 M/mm3 (3.60-5.2); RDW 18.5 % (11.6-15.6); WHITE BLOOD COUNT 9.8 K/mm3 (4.0-10.0)
[2018-12-27] MEDS: ALBUTEROL SO4 2.5/IPRATROPIUM 0.5 INH SOL 3 ML VIAL.NEB. NEB SCH ×4 (07:31→20:50)
[2018-12-27 07:45] LABS: ALBUMIN 3.4 g/dl (3.4-5.0); BILIRUBIN,TOTAL 0.6 mg/dL (0.2-1); BLOOD UREA NITROGEN 47.1 mg/dL (7-18); CALCIUM 8.4 mg/dL (8.5-10.1); CREATININE 3.4 mg/dL (0.55-1.3); POTASSIUM 3.8 mmol/L (3.5-5.1); TOT PROT 6.6 g/dl (6.4-8.2)
[2018-12-27] MEDS: NICOTINE 7 MG/24 HOURS TOPICAL PATCH TD SCH (09:24)
[2018-12-27] MEDS: LORazepam 1 MG TABLET PO SCH ×2 (09:24→22:33)
[2018-12-27] MEDS: APIXABAN 2.5 MG TABLET PO SCH ×2 (09:24→22:33)
[2018-12-27] MEDS: DULoxetine HCL 30 MG CAPSULE.DR PO SCH (09:24)
[2018-12-27] MEDS: metoPROLOL SUCCINATE 25 MG TAB.SR.24H (FP) PO SCH (09:24)
[2018-12-27] MEDS: AMIODARONE HCL 200 MG TABLET (FP) PO SCH (09:24)
[2018-12-27] MEDS: amLODIPine BESYLATE 10 MG TABLET (FP) PO SCH (09:24)
[2018-12-27] MEDS: LIDOCAINE 5% TOPICAL PATCH TP SCH ×2 (09:24→15:52)
--- NOTE | 2018-12-27 10:09 | PN ---
Progress Note, Physician Chief Complaint: Events noted Pain on hematoma site improving History of Present Illness: Patient was seen and examined. Awake and alert. Chart was reviewed Denies chest pain or SOB - Current Medication List Current Medications: Active Medications Acetaminophen (Tylenol -) 650 mg PO Q4H PRN PRN Reason: PAIN LEVEL 1-5 Last Admin: 12/26/18 21:34 Dose: 650 mg Albuterol Sulfate (Ventolin 0.083% Nebulizer Soln -) 1 amp NEB Q4H PRN PRN Reason: SHORT OF BREATH/WHEEZING Last Admin: 12/26/18 23:47 Dose: 1 amp Albuterol/Ipratropium (Duoneb -) 1 amp NEB RQID [facility] Last Admin: 12/26/18 20:03 Dose: 1 amp Amiodarone HCl (Cordarone -) 200 mg PO DAILY [facility] Last Admin: 12/27/18 09:24 Dose: 200 mg Amlodipine Besylate (Norvasc -) 10 mg PO DAILY [facility] Last Admin: 12/27/18 09:24 Dose: 10 mg Apixaban (Eliquis -) 2.5 mg PO BID [facility] Last Admin: 12/27/18 09:24 Dose: 2.5 mg Atorvastatin Calcium (Lipitor -) 20 mg PO HS [facility] Last Admin: 12/26/18 21:34 Dose: 20 mg Diphenhydramine HCl (Benadryl -) 25 mg PO Q6H PRN PRN Reason: FOR ITCHING Last Admin: 12/26/18 14:53 Dose: 25 mg Docusate Sodium (Colace -) 100 mg PO Q8H PRN PRN Reason: CONSTIPATION Duloxetine HCl (Cymbalta -) 60 mg PO DAILY [facility] Last Admin: 12/27/18 09:24 Dose: 60 mg Gabapentin (Neurontin -) 300 mg PO TID [facility] Last Admin: 12/27/18 06:20 Dose: 300 mg Lidocaine (Lidoderm Patch -) 1 patch TP DAILY [facility] Last Admin: 12/27/18 09:24 Dose: 1 patch Lorazepam (Ativan -) 1 mg PO BID [facility] Last Admin: 12/27/18 09:24 Dose: 1 mg Melatonin (Melatonin) 5 mg PO HS PRN PRN Reason: INSOMNIA Last Admin: 12/26/18 23:16 Dose: 5 mg Methylprednisolone Sodium Succinate (Solu-Medrol -) 40 mg IVPUSH Q6H-IV [facility] Last Admin: 12/27/18 09:25 Dose: 40 mg Metoprolol Succinate (Toprol Xl -) 25 mg PO DAILY [facility] Last Admin: 12/27/18 09:24 Dose: 25 mg Miscellaneous (Lidoderm Patch Removal) 1 each MC DAILY@2200 [facility] Last Admin: 12/26/18 21:35 Dose: 1 each Nicotine (Nicoderm Patch -) 7 mg TD DAILY [facility] Last Admin: 12/27/18 09:24 Dose: 7 mg Senna (Senna -) 1 tab PO HS [facility] Last Admin: 12/26/18 21:34 Dose: 1 tab - Objective Vital Signs: Vital Signs Temperature 98.5 F 12/27/18 02:24 Pulse Rate 95 H 12/27/18 06:00 Respiratory Rate 18 12/27/18 06:00 Blood Pressure 141/76 12/27/18 06:00 O2 Sat by Pulse Oximetry (%) 98 12/26/18 22:00 Eyes: Yes: PERRL HENT: Yes: Atraumatic Neck: Yes: Supple Cardiovascular: Yes: Regular Rate and Rhythm, S1, S2 Respiratory: Yes: CTA Bilaterally Gastrointestinal: Yes: Normal Bowel Sounds, Soft. No: Tenderness Extremities: Yes: Other ([place] right axilla and pectoral area) Edema: No Additional Findings/Remarks: - Review of Systems Constitutional: denies: Chills, Fever Cardiovascular: denies: Chest Pain, Palpitations, Shortness of Breath Respiratory: denies: Cough, Hemoptysis, Orthopnea, PND, SOB, SOB on Exertion Gastrointestinal: denies: Abdominal Pain, Constipation, Diarrhea, Melena, Nausea , Rectal Bleeding, Vomiting Genitourinary: denies: Dysuria, Hematuria Musculoskeletal: denies: Back Pain Neurological: denies: Dizziness, Headache, Seizure, Syncope Labs: CBC, BMP 12/27/18 05:16 12/27/18 05:16 Problem List - Problems (1) CAD (coronary artery disease) Code(s): I25.10 - ATHSCL HEART DISEASE OF [place] CORONARY ARTERY W/O ANG PCTRS (2) Acute on chronic kidney failure Code(s): N17.9 - ACUTE KIDNEY FAILURE, UNSPECIFIED; N18.9 - CHRONIC KIDNEY DISEASE, UNSPECIFIED Qualifiers: Acute renal failure type: unspecified Chronic kidney disease stage: stage 4 (severe) Qualified Code(s): N17.9 - Acute kidney failure, unspecified; N18.4 - Chronic kidney disease, stage 4 (severe) (3) Anemia Code(s): D64.9 - ANEMIA, UNSPECIFIED Qualifiers: Anemia type: due to chronic kidney disease Chronic kidney disease stage: on chronic dialysis Qualified Code(s): N18.6 - End stage renal disease; D63.1 - Anemia in chronic kidney disease; Z99.2 - Dependence on renal dialysis (4) Atrial fibrillation Code(s): I48.91 - UNSPECIFIED ATRIAL FIBRILLATION Qualifiers: Atrial fibrillation type: paroxysmal Qualified Code(s): I48.0 - Paroxysmal atrial fibrillation (5) COPD (chronic obstructive pulmonary disease) Code(s): J44.9 - CHRONIC OBSTRUCTIVE PULMONARY DISEASE, UNSPECIFIED Qualifiers: COPD type: unspecified COPD Qualified Code(s): J44.9 - Chronic obstructive pulmonary disease, unspecified (6) Chronic kidney disease (CKD) Code(s): N18.9 - CHRONIC KIDNEY DISEASE, UNSPECIFIED Qualifiers: Chronic kidney disease stage: stage 4 (severe) Qualified Code(s): N18.4 - Chronic kidney disease, stage 4 (severe) (7) ESRD (end stage renal disease) on dialysis Code(s): N18.6 - END STAGE RENAL DISEASE; Z99.2 - DEPENDENCE ON RENAL DIALYSIS (8) Hematoma of axilla Code(s): S40.029A - CONTUSION OF UNSPECIFIED UPPER ARM, INITIAL ENCOUNTER (9) Hyperlipidemia Code(s): E78.5 - HYPERLIPIDEMIA, UNSPECIFIED Qualifiers: Hyperlipidemia type: pure hypercholesterolemia Qualified Code(s): E78.00 - Pure hypercholesterolemia, unspecified; E78.0 - Pure hypercholesterolemia (10) Hypertension Code(s): I10 - ESSENTIAL (PRIMARY) HYPERTENSION Qualifiers: Hypertension type: essential hypertension Qualified Code(s): I10 - Essential (primary) hypertension Assessment/Plan 1. Acute on chronic diastolic CHF improving 2. ESRD on HD via AV fistula and non compliance with HD schedule 3. HTN 4. Hypercholesterolemia 5. PAF on DOAC/Eliquis 6. Bronchial asthma/COPD 7. Right pectoral and arm hematoma 8. Anemia of CKD 9. Left internal capsule infarct PLAN: 1. Continue Metoprolol ER 25 mg QD, Amlodipine 10 mg QD, Amiodarone 200 mg QD and Atorvastatin 20 mg QHS 2. Continue Eliquis 2.5 mg BID. 3. HD as per Renal 4. Bronchodilator, short course steroids, antibiotics and O2 as needed Further plans are to follow Vincent Pérez MD
--- NOTE | 2018-12-27 10:46 | PN ---
Progress Note (short form) - Note Progress Note: PULMONARY vss/afebrile eating breakfast back/knee pain spo2 98% on nasal 02 Constitutional: Yes: Well Nourished, Calm Eyes: Yes: WNL HENT: Yes: WNL Neck: Yes: WNL Cardiovascular: Yes: Regular Rate and Rhythm, S1 Respiratory: Yes: Rhonchi (bilateral wheezes and rhonchi), Wheezes Gastrointestinal: Yes: Normal Bowel Sounds, Soft Extremities: Yes: WNL Edema: No Labs/notes/images/meds: noted IMP ACUTE RESPIRATORY DISTRESS COPD WITH ACUTE EXACERBATION VOLUME OVERLOAD ACUTE ON CHRONIC DIASTOLIC CHF ESRD ON HD AFIB HTN DEPRESSION H/O LUNG NODULE ANXIETY TOBACCO ABUSE PLAN INHALED BRONCHODILATORS IV STEROIDS TAPERING DOSE SUPPLEMENTAL O2 HD PER RENAL SMOKING CESSATION COUNSELED Tejinder WAKEFIELD MD
--- NOTE | 2018-12-27 14:48 | PN ---
Progress Note, Physician Chief Complaint: anxious today refusing to keep on manager monitoring History of Present Illness: Patient is a 63 year old female with a past medical history of asthma, ESRD on HD, chronic LBP, anxiety, tobacco dependence, HTN, afib (on amiodarone and eliquis). She presents to the Ed for acute shortness of breath and chest discomfort. chest xray: new bibasilar changes - Current Medication List Current Medications: Active Medications Acetaminophen (Tylenol -) 650 mg PO Q4H PRN PRN Reason: PAIN LEVEL 1-5 Last Admin: 12/26/18 21:34 Dose: 650 mg Albuterol Sulfate (Ventolin 0.083% Nebulizer Soln -) 1 amp NEB Q4H PRN PRN Reason: SHORT OF BREATH/WHEEZING Last Admin: 12/26/18 23:47 Dose: 1 amp Albuterol/Ipratropium (Duoneb -) 1 amp NEB RQID [facility] Last Admin: 12/27/18 11:49 Dose: 1 amp Amiodarone HCl (Cordarone -) 200 mg PO DAILY [facility] Last Admin: 12/27/18 09:24 Dose: 200 mg Amlodipine Besylate (Norvasc -) 10 mg PO DAILY [facility] Last Admin: 12/27/18 09:24 Dose: 10 mg Apixaban (Eliquis -) 2.5 mg PO BID [facility] Last Admin: 12/27/18 09:24 Dose: 2.5 mg Atorvastatin Calcium (Lipitor -) 20 mg PO HS [facility] Last Admin: 12/26/18 21:34 Dose: 20 mg Diphenhydramine HCl (Benadryl -) 25 mg PO Q6H PRN PRN Reason: FOR ITCHING Last Admin: 12/26/18 14:53 Dose: 25 mg Docusate Sodium (Colace -) 100 mg PO Q8H PRN PRN Reason: CONSTIPATION Duloxetine HCl (Cymbalta -) 60 mg PO DAILY [facility] Last Admin: 12/27/18 09:24 Dose: 60 mg Gabapentin (Neurontin -) 300 mg PO TID [facility] Last Admin: 12/27/18 13:44 Dose: 300 mg Lidocaine (Lidoderm Patch -) 1 patch TP DAILY [facility] Last Admin: 12/27/18 09:24 Dose: 1 patch Lorazepam (Ativan -) 1 mg PO BID [facility] Last Admin: 12/27/18 09:24 Dose: 1 mg Melatonin (Melatonin) 5 mg PO HS PRN PRN Reason: INSOMNIA Last Admin: 12/26/18 23:16 Dose: 5 mg Methylprednisolone Sodium Succinate (Solu-Medrol -) 40 mg IVPUSH Q8H-IV [facility] Metoprolol Succinate (Toprol Xl -) 25 mg PO DAILY [facility] Last Admin: 12/27/18 09:24 Dose: 25 mg Miscellaneous (Lidoderm Patch Removal) 1 each MC DAILY@2200 [facility] Last Admin: 12/26/18 21:35 Dose: 1 each Nicotine (Nicoderm Patch -) 7 mg TD DAILY [facility] Last Admin: 12/27/18 09:24 Dose: 7 mg Senna (Senna -) 1 tab PO HS [facility] Last Admin: 12/26/18 21:34 Dose: 1 tab - Objective Vital Signs: Vital Signs Temperature 98.4 F 12/27/18 10:00 Pulse Rate 88 12/27/18 10:00 Respiratory Rate 18 12/27/18 10:00 Blood Pressure 148/75 12/27/18 10:00 O2 Sat by Pulse Oximetry (%) 96 12/27/18 10:00 Constitutional: Yes: No Distress HENT: Yes: Atraumatic Neck: Yes: Supple Cardiovascular: Yes: Tachycardia Respiratory: Yes: Poor Air Entry, Rhonchi Gastrointestinal: Yes: Soft ...Rectal Exam: Yes: Deferred Musculoskeletal: Yes: Muscle Weakness Edema: LLE: Trace, RLE: Trace Neurological: Yes: Alert, Oriented Labs: CBC, BMP 12/27/18 05:16 12/27/18 05:16 INR, PTT INR 1.21 (0.83-1.09) H 12/22/18 18:40 Problem List - Problems (1) COPD (chronic obstructive pulmonary disease) Assessment/Plan: on solumedrol taper duonebs scheduled still sounds congested supplemental oxygen pulmonary consulted Code(s): J44.9 - CHRONIC OBSTRUCTIVE PULMONARY DISEASE, UNSPECIFIED Qualifiers: COPD type: unspecified COPD Qualified Code(s): J44.9 - Chronic obstructive pulmonary disease, unspecified (2) Acute on chronic kidney failure Assessment/Plan: right upper arm fistula renal following, dialysis per renal Code(s): N17.9 - ACUTE KIDNEY FAILURE, UNSPECIFIED; N18.9 - CHRONIC KIDNEY DISEASE, UNSPECIFIED Qualifiers: Acute renal failure type: unspecified Chronic kidney disease stage: stage 4 (severe) Qualified Code(s): N17.9 - Acute kidney failure, unspecified; N18.4 - Chronic kidney disease, stage 4 (severe) (3) Shortness of breath at rest Code(s): R06.02 - SHORTNESS OF BREATH (4) Hypertension Assessment/Plan: continue toprol and norvasc Code(s): I10 - ESSENTIAL (PRIMARY) HYPERTENSION Qualifiers: Hypertension type: essential hypertension Qualified Code(s): I10 - Essential (primary) hypertension (5) Arm pain, right Assessment/Plan: s/p hematoma on last admission. hematoma size improving Code(s): M79.601 - PAIN IN RIGHT ARM (6) Atrial fibrillation Assessment/Plan: on eliquis bid. Code(s): I48.91 - UNSPECIFIED ATRIAL FIBRILLATION Qualifiers: Atrial fibrillation type: paroxysmal Qualified Code(s): I48.0 - Paroxysmal atrial fibrillation (7) Prophylactic measure Assessment/Plan: fen renal diet monitor electrolytes on eliquis fall precautions Code(s): Z29.9 - ENCOUNTER FOR PROPHYLACTIC MEASURES, UNSPECIFIED Visit type - Emergency Visit Emergency Visit: Yes ED Registration Date: 12/22/18 Care time: The patient presented to the Emergency Department on the above date and was hospitalized for further evaluation of their emergent condition. - New Patient This patient is new to me today: No - Critical Care Critical Care patient: No - Discharge Referral Referred to [facility] Med P.C.: No
[2018-12-27] MEDS ORDERED: ACETAMINOPHEN 1000 MG/100 ML VIAL (NON FORMULARY) IVPB ONE ×2 (15:36→23:02)
[2018-12-27] MEDS ORDERED: PT OWN MED DRAWER 7, Y5N ONE (16:20)
[2018-12-27] MEDS ORDERED: ALBUTEROL SO4 0.083% IH SOL 2.5 MG/3 ML VIAL.NEB. NEB PRN (19:22)
[2018-12-27] MEDS ORDERED: LIDOCAINE PATCH REMOVAL MC SCH ×3 (19:22→22:00)
[2018-12-27] MEDS ORDERED: DOCUSATE SODIUM 100 MG CAPSULE (FP) PO PRN (19:22)
[2018-12-27] MEDS ORDERED: ACETAMINOPHEN 325 MG TABLET (FP) PO PRN (19:22)
[2018-12-27] MEDS ORDERED: MELATONIN 5 MG TABLETS PO PRN (19:22)
[2018-12-27] MEDS ORDERED: ATORVASTATIN CA 20 MG TABLET (FP) PO SCH (22:00)
[2018-12-27] MEDS ORDERED: SENNOSIDES 8.6MG TABLET (FP) PO SCH (22:00)
[2018-12-28] MEDS: methylPREDNISolone NA SUCC 40 MG/1 ML VIAL IVPUSH SCH ×2 (01:17→09:53)
[2018-12-28] MEDS ORDERED: LORazepam 2 MG/ML SDV VIAL ONE (03:14)
[2018-12-28] MEDS ORDERED: MORPHINE SULFATE 2 MG/ML VIAL ONE (03:20)
[2018-12-28] MEDS ORDERED: MORPHINE SULFATE 2 MG/ML VIAL IM ONE (03:22)
--- NOTE | 2018-12-28 03:22 | HOSP ---
Subjective - Review of Symptoms Events since last encounter: Called by RN for patient post fall unwitnessed, upon arrival seen patient sitting on floor next to bathroom door holding right foot/ knee and complaining of pain. Will follow up STAT CT head, XR right foot, knee. Patient is very anxious and complain of severe pain - give morphine 2 mg x1. Bed alarm in place. Monitor for safety/fall precaution General: No: Chills, Night Sweats, Fatigue, Malaise, Appetite, Other HEENT: No: Head Aches, Visual Changes, Eye Pain, Ear Pain, Dysphasia, Sinus Congestion, Post Nasal Drip, Sore Throat, Other Pulmonary: No: Dyspnea, Cough, Pleuritic Chest Pain, Other Cardiovascular: No: Chest Pain, Palpitations, Orthopnea, Paroxysmal Noc. Dyspnea , Edema, Light Headedness, Other Gastrointestinal: No: Nausea, NOSYM, Vomiting, Abdominal Pain, Diarrhea, Constipation, Melena, Hematochezia, Other Genitourinary: No: Dysuria, NOSYM, Frequency, Incontinence, Hematuria, Retention , Other Musculoskeletal: No: No Symptoms, Back Pain, Crepitus, Decreased ROM, Extremity Pain, Joint Pain, Joint Swelling, Muscle Pain, Muscle Cramps, Muscle Weakness, Other Neurological: No: Weakness, Numbness, Incoordination, Change in speech, Confusion, Seizures, Other Physical Examination Vital Signs: Vital Signs Temperature 98.2 F 12/27/18 22:00 Pulse Rate 91 H 12/27/18 22:00 Respiratory Rate 21 H 12/27/18 22:00 Blood Pressure 139/71 12/27/18 22:00 O2 Sat by Pulse Oximetry (%) 96 12/27/18 22:00 Constitutional: Yes: Anxious Eyes: Yes: Conjunctiva Clear HENT: Yes: Atraumatic, Normocephalic Neck: Yes: Supple, Trachea Midline Cardiovascular: Yes: Regular Rate and Rhythm Respiratory: Yes: Regular, CTA Bilaterally Gastrointestinal: Yes: Normal Bowel Sounds, Soft Musculoskeletal: Yes: Other (complain of right foot/ankle, knee pain) Labs: CBC, BMP 12/27/18 05:16 12/27/18 05:16 Hospitalist Encounter Assessment: unwitnessed fall - follow up CT head - XR right foot/ankle, knee - Morphine 2mg x 1 - bed alarm - safety/fall precaution
[2018-12-28] MEDS ORDERED: MORPHINE SULFATE 2 MG/ML VIAL IM PRN (03:52)
[2018-12-28 04:37] VITALS: BP 143/72; PULSE 87; TEMP 98.3
[2018-12-28] MEDS: GABAPENTIN 300 MG CAPSULE (FP) PO SCH ×2 (06:30→14:43)
--- NOTE | 2018-12-28 06:32 | CON.ORTH ---
Consult Consult Specialty:: Orthopedics Reason for Consultation:: Right ankle fracture - History of Present Illness Chief Complaint: Right ankle pain History of Present Illness: This is a 63 yo F with PMHx of afib, asthma/COPD, ESRD, HTN, DM and CHF who is admitted for workup of SOB and sustained a right ankle fracture after unwitnessed mechanical fall at 3am this morning. As per nursing staff, patient has been uncooperative during her stay, often getting out of bed and walking to the elevator on her own to "have a cigarette". She was found in her room sitting on the floor infront of the bathroom door holding right leg and complaining of pain. When evaluated, patient is lying in stretcher, agitated and yelling. She notes pain to right ankle, asking for a cigarette. Patient ambulated with a walker at home. Denies any numbness, tingling. - History Source History Provided By: Patient, Medical Record Limitations to Obtaining History: No Limitations - Past Medical History [employer]ATION [employer] WORKER: Yes: Peripheral Neuropathy Cardio/Vascular: Yes: HTN, Hyperlipdemia Pulmonary: Yes: Asthma, Bronchitis, COPD, Pneumonia Gastrointestinal: Yes: Gastritis Renal/: Yes: Renal Inusuff, Hemodialysis ...LMP: 07/25/12 Infectious Disease: Yes: MRSA Psych: Yes: Anxiety, Depression Musculoskeletal: Yes: Chronic low back pain Endocrine: Yes: Hyperthyroidism - Past Surgical History Past Surgical History: Yes: AV Fistula/Graft, Joint Replacement (hip replacement ) - Alcohol/Substance Use Hx Alcohol Use: No History of Substance Use: reports: Marijuana - Smoking History Smoking history: Current every day smoker Have you smoked in the past 12 months: Yes Aproximately how many cigarettes per day: 3 If you are a former smoker, when did you quit?: refused booklet 07/21/14 - Social History Usual Living Arrangement: With Child ADL: Independent Occupation: not working, SSI History of Recent Travel: No <Crista Carlisle - Last Filed: 12/28/18 07:46> Home Medications <Crista Carlisle - Last Filed: 12/28/18 07:46> <OhHal K - Last Filed: 12/28/18 08:45> - Allergies Allergies/Adverse Reactions: Allergies Allergy/AdvReac Type Severity Reaction Status Date / Time levofloxacin [From Levaquin] Allergy Mild Itching Verified 12/22/18 19:08 - Home Medications Home Medications: Ambulatory Orders Apixaban [Eliquis] 2.5 mg PO BID 08/09/18 Atorvastatin Ca [Lipitor] 20 mg PO HS 08/09/18 Duloxetine HCl [Cymbalta -] 60 mg PO DAILY 08/09/18 Fluticasone/Salmeterol [Advair 250-50 Diskus] 1 each IH BID 08/09/18 Melatonin 5 mg PO HS 08/09/18 Sennosides [Senna] 8.6 mg PO HS 08/09/18 Amiodarone HCl [Cordarone -] 200 mg PO DAILY #30 tablet 08/20/18 Gabapentin [Neurontin -] 300 mg PO TID #30 capsule 08/20/18 Metoprolol Succinate [Toprol XL -] 25 mg PO DAILY #30 tab.sr.24h 08/20/18 Tramadol HCl 50 mg PO Q6H #12 tablet MDD 200mg 11/03/18 Albuterol Sulfate Inhaler - [Ventolin HFA Inhaler -] 1 - 2 inh PO Q4H PRN #1 inhaler 11/19/18 LORazepam [Ativan] 1 mg PO BID #14 tablet MDD 2 11/19/18 Lidocaine 5% Patch [Lidoderm -] 1 patch TP DAILY #7 patch 12/11/18 Acetaminophen [Tylenol .Regular Strength -] 650 mg PO Q4H PRN tablet 12/17/18 Amlodipine Besylate [Norvasc -] 10 mg PO DAILY tablet 12/17/18 Apixaban [Eliquis -] 2.5 mg PO BID tablet 12/17/18 Docusate Sodium [Colace -] 100 mg PO Q8H PRN capsule 12/17/18 Family Disease History - Family Disease History Family Disease History: Other: Father (alive), Mother (alive), Sister (alive), Son (23 yo old - alive - healthy) <Crista Carlisle - Last Filed: 12/28/18 07:46> Review of Systems - Review of Systems Musculoskeletal: reports: Other (Right ankle pain) <Crista Carlisle - Last Filed: 12/28/18 07:46> Physical Exam for Ortho Vital Signs: Vital Signs Temperature 98.3 F 12/28/18 03:14 Pulse Rate 87 12/28/18 03:14 Respiratory Rate 21 H 12/28/18 03:14 Blood Pressure 143/72 12/28/18 03:14 O2 Sat by Pulse Oximetry (%) 96 12/27/18 22:00 Labs: CBC, BMP 12/27/18 05:16 12/27/18 05:16 INR, PTT INR 1.21 (0.83-1.09) H 12/22/18 18:40 - Lower Extremity Hip: Yes: Right (No skin lesions or swelling. Refuses to range right hip. Tenderness over greater trochanter. NVID.) Ankle: Yes: Right (No skin lesions, positive swelling. Obvious deformity. Tenderness throughout low leg. NVID.) <Crista Carlisle - Last Filed: 12/28/18 07:46> Vital Signs: Vital Signs Temperature 98.3 F 12/28/18 03:14 Pulse Rate 87 12/28/18 03:14 Respiratory Rate 21 H 12/28/18 03:14 Blood Pressure 143/72 12/28/18 03:14 O2 Sat by Pulse Oximetry (%) 96 12/27/18 22:00 Labs: CBC, BMP 12/27/18 05:16 12/27/18 05:16 INR, PTT INR 1.21 (0.83-1.09) H 12/22/18 18:40 <Hal De Leon - Last Filed: 12/28/18 08:45> Imaging - Results X-ray: Image Reviewed (Right ankle XR shows distal pilon fracture with comminution and fibular shaft fracture with poor bone quality.) <Crista Carlisle - Last Filed: 12/28/18 07:46> Problem List - Problems (1) Fracture of ankle, right, closed Code(s): S82.891A - OTH FRACTURE OF RIGHT LOWER LEG, INIT FOR CLOS FX <Crista Carlisle - Last Filed: 12/28/18 07:46> Assessment/Plan This is a 63 yo F with PMHx of afib, asthma/COPD, ESRD, HTN, DM and CHF who is admitted for workup of SOB and sustained a right ankle fracture after unwitnessed mechanical fall at 3am this morning. -Case discussed with Dr. De Leon -Closed distal comminuted pilon fracture of right ankle seen on XR. No joint involvement. -Surgical intervention needed -Patient placed in posterior splint -Right hip and pelvis XR ordered to r/o hip fracture -Pain control -NWB -Dr. De Leon will see patient later today <Crista Carlisle - Last Filed: 12/28/18 07:46>
[2018-12-28] MEDS: ALBUTEROL SO4 2.5/IPRATROPIUM 0.5 INH SOL 3 ML VIAL.NEB. NEB SCH ×3 (07:20→16:20)
[2018-12-28] MEDS ORDERED: MORPHINE SULFATE 2 MG/ML VIAL IVPUSH PRN (09:04)
--- NOTE | 2018-12-28 09:05 | CONSULT ---
Consult - text type - Consultation Consultation Note: Patient evaluated and radiographs reviewed. PE: very agitated RLE in splint, well perfused with good cap refill has bruising anterior knee (no fracture on xray); femur appears intact but c/o pain. -patient has a severely comminuted, very distal tib/fib fracture (does not appear to involve the joint) with a comminuted segmental fibula fracture. The bone shows severe osteopenia on plain films. -she has extensive comorbities including ESRD on dialysis, CHF, DM, Afib (on Eliquis). -given whole clinical picture, in my opinion, feel patient will need transfer to [facility] for definitive treatment. Will need Foot/Ankle or Trauma trained orthopedic surgeon for best care given complexity of injury and medical condition. Spoke with Chief resident community relations officer at [facility] and the Orthopedic team will be made aware. Will need transfer to medical service given medical condition and the Orthopedic Attending will be Dr Cat. -will follow up hip/pelvis xrays
[2018-12-28] MEDS: APIXABAN 2.5 MG TABLET PO SCH (09:53)
[2018-12-28] MEDS: LORazepam 1 MG TABLET PO SCH (09:54)
[2018-12-28] MEDS ORDERED: DULoxetine HCL 30 MG CAPSULE.DR PO SCH (10:00)
[2018-12-28] MEDS ORDERED: NICOTINE 7 MG/24 HOURS TOPICAL PATCH TD SCH (10:00)
[2018-12-28] MEDS ORDERED: AMIODARONE HCL 200 MG TABLET (FP) PO SCH (10:00)
[2018-12-28] MEDS ORDERED: amLODIPine BESYLATE 10 MG TABLET (FP) PO SCH (10:00)
[2018-12-28] MEDS ORDERED: metoPROLOL SUCCINATE 25 MG TAB.SR.24H (FP) PO SCH (10:00)
[2018-12-28] MEDS ORDERED: LIDOCAINE 5% TOPICAL PATCH TP SCH (10:00)
[2018-12-28 10:07] LABS: BASO % 0.1 % (0-2.0); HEMATOCRIT 24.6 % (32.4-45.2); HEMOGLOBIN 8.2 GM/dL (10.7-15.3); LYMPH % 2.5 % (8-40); MCHC 33.2 g/dl (32.0-36.0); MEAN CELL VOLUME 93.4 fl (80-96); MEAN PLT VOLUME 7.7 fl (7.5-11.1); MONO % 4.6 % (3.8-10.2); NEUT % 92.8 % (42.8-82.8); PLATELET COUNT 431 K/MM3 (134-434); RBC 2.63 M/mm3 (3.60-5.2); RDW 18.5 % (11.6-15.6); WHITE BLOOD COUNT 17.8 K/mm3 (4.0-10.0)
[2018-12-28 10:46] LABS: ALBUMIN 3.3 g/dl (3.4-5.0); BILIRUBIN,TOTAL 0.7 mg/dL (0.2-1); BLOOD UREA NITROGEN 97.2 mg/dL (7-18); CALCIUM 8.5 mg/dL (8.5-10.1); POTASSIUM 4.2 mmol/L (3.5-5.1); TOT PROT 6.3 g/dl (6.4-8.2)
[2018-12-28] MEDS ORDERED: INSULIN SLIDING SCALE (NOVOLOG) 1 VIAL SQ SCH (11:00)
--- NOTE | 2018-12-28 12:16 | PN ---
Progress Note (short form) - Note Progress Note: PULMONARY FELL WITH TIB/FIB FRACTURE NOW SPLINTED WILL BE TRANSFERRED TO [facility] FOR TREATMENT VSS/AFEB PALE RHONCHI S1S2 SOFT NONTENDER RIGHT LOWER EXT SPLINTED ACUTE RESPIRATORY DISTRESS RESOLVED COPD WITH ACUTE EXACERBATION ACUTE ON CHRONIC DIASTOLIC CHF ESRD ON HD AFIB HTN DEPRESSION H/O LUNG NODULE ANXIETY TOBACCO ABUSE PLAN INHALED BRONCHODILATORS IV STEROIDS TAPERING DOSE SUPPLEMENTAL O2 HD PER RENAL SMOKING CESSATION COUNSELED TRANSFER TO [facility] PENDING Tejinder WAKEFIELD MD
[2018-12-28] MEDS ORDERED: PT OWN MED DRAWER 7, Y5N ONE (12:17)
[2018-12-28] MEDS: LIDOCAINE 5% TOPICAL PATCH TP SCH (12:26)
[2018-12-28 12:27] LABS: ANISOCYTOSIS 1+; MACROCYTOSIS 1+; OVALOCYTE 1+; PLATELET ESTIMATE NORMAL; TOXIC GRANULATION 1+
--- NOTE | 2018-12-28 13:32 | DS ---
Physical Exam: SUBJECTIVE: Patient seen and examined at the bedside. overnight notes reviewed. discussed in detail with Dr. De Leon. patient having pain s/p fall. She was sitting in commode, fell asleep and fell. Fall was unwitnessed. OBJECTIVE: Patient evaluated at the bedside. on a RLE splint discussed with Dr. De Leon who spoke to [facility] Ortho resident and gave signout I called [facility] transfer center and spoke to medicine. Received call back from [facility] that patient will be accepted to [facility] under Dr. Cat (ortho) service. Reason for transfer to [facility]: Per ortho, she will need foot/ankle or trauma trained orthopedic surgeon for best care given complexity of injury in the setting of severe osteopenia and medical conditions. Imaging: has bruising anterior knee (no fracture on xray); femur appears intact but c/o pain. patient has a severely comminuted, very distal tib/fib fracture (does not appear to involve the joint) with a comminuted segmental fibula fracture. The bone shows severe osteopenia on plain films. Vital Signs Period Temp Pulse Resp BP Sys/Bills Pulse Ox Last 24 Hr 97.8 F-98.4 F 87-95 20-21 133-143/66-72 95-96 PHYSICAL EXAM GENERAL: The patient is awake, alert, and fully oriented, having pain on right leg. HEAD: Normal with no signs of trauma. head ct negative EYES: PERRL, extraocular movements intact, sclera anicteric, conjunctiva clear. ENT: Ears normal, nares patent, oropharynx clear without exudates, moist mucous membranes. NECK: Trachea midline, full range of motion, supple. LUNGS: diminished bilaterally. HEART: tachycardia ABDOMEN: Soft, nontender, nondistended, normoactive bowel sounds, no guarding, no rebound, no hepatosplenomegaly, no masses. EXTREMITIES: RLE on splint, s/p distal tib/fib fracture. NEUROLOGICAL:Normal speech PSYCH: agitated SKIN: abrasion on right knee. LABS Laboratory Results - last 24 hr 12/28/18 12/28/18 12/28/18 09:29 09:29 11:58 WBC 17.8 H RBC 2.63 L Hgb 8.2 L Hct 24.6 L MCV 93.4 MCH 31.0 MCHC 33.2 RDW 18.5 H Plt Count 431 D MPV 7.7 Absolute Neuts (auto) 16.5 H Neutrophils % 92.8 H Neutrophils % (Manual) 86.0 H Band Neutrophils % 0.0 Lymphocytes % 2.5 L D Lymphocytes % (Manual) 3.0 L D Monocytes % 4.6 Monocytes % (Manual) 4 Eosinophils % 0.0 Eosinophils % (Manual) 0.0 Basophils % 0.1 D Basophils % (Manual) 0.0 Myelocytes % (Man) 6 H D Promyelocytes % (Man) 0 Blast Cells % (Manual) 0 Nucleated RBC % 0 Metamyelocytes 1 Hypochromia 0 Toxic Granulation 1+ Platelet Estimate Normal Polychromasia 0 Poikilocytosis 0 Anisocytosis 1+ Microcytosis 1+ Macrocytosis 1+ Ovalocytes 1+ Schistocytes 1+ Sodium 134 L Potassium 4.2 Chloride 94 L Carbon Dioxide 23 Anion Gap 16 BUN 97.2 H Creatinine 5.0 H Est GFR (CKD-EPI)AfAm 10.06 Est GFR (CKD-EPI)NonAf 8.68 POC Glucometer 113 Random Glucose 100 Calcium 8.5 Magnesium 2.0 Total Bilirubin 0.7 AST 19 ALT 44 Alkaline Phosphatase 161 H Total Protein 6.3 L Albumin 3.3 L HOSPITAL COURSE: Date of Admission:12/22/18 Date of Discharge: 12/28/18 Patient evaluated at the bedside. on a RLE splint discussed with Dr. De Leon who spoke to [facility] Ortho resident and gave signout I called [facility] transfer center and spoke to medicine. Received call back from [facility] that patient will be accepted to [facility] under Dr. Cat (ortho) service. Reason for transfer to [facility]: Per ortho, she will need foot/ankle or trauma trained orthopedic surgeon for best care given complexity of injury in the setting of severe osteopenia and medical conditions. Imaging: has bruising anterior knee (no fracture on xray); femur appears intact but c/o pain. patient has a severely comminuted, very distal tib/fib fracture (does not appear to involve the joint) with a comminuted segmental fibula fracture. The bone shows severe osteopenia on plain films. Minutes to complete discharge: 60 Discharge Summary Reason For Visit: CONGESTIVE HEART FAILURE, SHORTNESS OF BREATH Current Active Problems CAD (coronary artery disease) (Acute) Fracture of ankle, right, closed (Acute) Condition: Worsened - Instructions Diet, Activity, Other Instructions: transfer to [facility] Disposition: TRANSFER ACUTE CARE/OTHER HOSP - Home Medications Comprehensive Discharge Medication List: Ambulatory Orders Apixaban [Eliquis] 2.5 mg PO BID 08/09/18 Atorvastatin Ca [Lipitor] 20 mg PO HS 08/09/18 Duloxetine HCl [Cymbalta -] 60 mg PO DAILY 08/09/18 Fluticasone/Salmeterol [Advair 250-50 Diskus] 1 each IH BID 08/09/18 Melatonin 5 mg PO HS 08/09/18 Sennosides [Senna] 8.6 mg PO HS 08/09/18 Amiodarone HCl [Cordarone -] 200 mg PO DAILY #30 tablet 08/20/18 Gabapentin [Neurontin -] 300 mg PO TID #30 capsule 08/20/18 Metoprolol Succinate [Toprol XL -] 25 mg PO DAILY #30 tab.sr.24h 08/20/18 Tramadol HCl 50 mg PO Q6H #12 tablet MDD 200mg 11/03/18 Albuterol Sulfate Inhaler - [Ventolin HFA Inhaler -] 1 - 2 inh PO Q4H PRN #1 inhaler 11/19/18 LORazepam [Ativan] 1 mg PO BID #14 tablet MDD 2 11/19/18 Lidocaine 5% Patch [Lidoderm -] 1 patch TP DAILY #7 patch 12/11/18 Acetaminophen [Tylenol .Regular Strength -] 650 mg PO Q4H PRN tablet 12/17/18 Amlodipine Besylate [Norvasc -] 10 mg PO DAILY tablet 12/17/18 Apixaban [Eliquis -] 2.5 mg PO BID tablet 12/17/18 Docusate Sodium [Colace -] 100 mg PO Q8H PRN capsule 12/17/18 Problem List - Problems (1) Fracture of ankle, right, closed Assessment/Plan: for surgical options at [facility] patient with complex medical problems as well as severe osteopenia. may need specialized surgery options Code(s): S82.891A - OTH FRACTURE OF RIGHT LOWER LEG, INIT FOR CLOS FX (2) COPD (chronic obstructive pulmonary disease) Assessment/Plan: on solumedrol taper priyanka scheduled Code(s): J44.9 - CHRONIC OBSTRUCTIVE PULMONARY DISEASE, UNSPECIFIED Qualifiers: COPD type: unspecified COPD Qualified Code(s): J44.9 - Chronic obstructive pulmonary disease, unspecified (3) Acute on chronic kidney failure Assessment/Plan: right upper arm fistula renal following, dialysis per renal, last dialysis 12/26/2018. 2 kg removed. Code(s): N17.9 - ACUTE KIDNEY FAILURE, UNSPECIFIED; N18.9 - CHRONIC KIDNEY DISEASE, UNSPECIFIED Qualifiers: Acute renal failure type: unspecified Chronic kidney disease stage: stage 4 (severe) Qualified Code(s): N17.9 - Acute kidney failure, unspecified; N18.4 - Chronic kidney disease, stage 4 (severe) (4) Shortness of breath at rest Code(s): R06.02 - SHORTNESS OF BREATH (5) Hypertension Assessment/Plan: continue toprol and norvasc Code(s): I10 - ESSENTIAL (PRIMARY) HYPERTENSION Qualifiers: Hypertension type: essential hypertension Qualified Code(s): I10 - Essential (primary) hypertension (6) Arm pain, right Assessment/Plan: s/p hematoma on last admission. hematoma size improving Code(s): M79.601 - PAIN IN RIGHT ARM (7) Atrial fibrillation Assessment/Plan: on eliquis bid. Code(s): I48.91 - UNSPECIFIED ATRIAL FIBRILLATION Qualifiers: Atrial fibrillation type: paroxysmal Qualified Code(s): I48.0 - Paroxysmal atrial fibrillation (8) Prophylactic measure Assessment/Plan: fen renal diet monitor electrolytes on eliquis fall precautions Code(s): Z29.9 - ENCOUNTER FOR PROPHYLACTIC MEASURES, UNSPECIFIED This patient is new to me today: No Emergency Visit: Yes ED Registration Date: 12/22/18 Care time: The patient presented to the Emergency Department on the above date and was hospitalized for further evaluation of their emergent condition. Critical Care patient: No - Discharge Referral Referred to [facility] Med P.C.: No
== END 2018-12-28 15:45 | disposition short-term general hospital (02) | DRG 194 ==
LOC: JER 16:22 → JERBED 17:44 → OBSVTOIN 17:44 → J4W 12-24 11:35 → J6S 12-27 17:02
PROVIDERS: ADMIT Internal Medicine; ATTEND Nurse Practitioner Family
DX: I13.2 Hypertensive heart and chronic kidney disease with heart failure and with stage 5 chronic kidney disease, or end stage renal disease (principal); I25.10 Atherosclerotic heart disease of native coronary artery without angina pectoris; J98.11 Atelectasis; F17.210 Nicotine dependence, cigarettes, uncomplicated; F41.8 Other specified anxiety disorders; E78.5 Hyperlipidemia, unspecified; I50.33 Acute on chronic diastolic (congestive) heart failure; M85.861 Other specified disorders of bone density and structure, right lower leg; S82.391A Other fracture of lower end of right tibia, initial encounter for closed fracture; S82.831A Other fracture of upper and lower end of right fibula, initial encounter for closed fracture; D63.1 Anemia in chronic kidney disease; J18.9 Pneumonia, unspecified organism; N17.9 Acute kidney failure, unspecified; E87.1 Hypo-osmolality and hyponatremia; E46 Unspecified protein-calorie malnutrition; J44.1 Chronic obstructive pulmonary disease with (acute) exacerbation; N18.6 End stage renal disease; I48.0 Paroxysmal atrial fibrillation; W19.XXXA Unspecified fall, initial encounter; Y92.238 Other place in hospital as the place of occurrence of the external cause; Y93.89 Activity, other specified; Y99.9 Unspecified external cause status; J45.909 Unspecified asthma, uncomplicated
CPT/HCPCS: 36415; 70450-TC; 71045-TC-FY; 71250-TC; 73523-TC-FY; 73560-TC-RT-FY; 73610-TC-RT-FY; 73630-TC-RT-FY; 76882-TC-RT-FY; 80048; 80053; 82550; 82803; 82962; 83735; 83880; 84484; 85025; 85027; 85610; 87040; 87899; 93005; 93010; 93971-TC; 94640; 99285-25; J0131; J0885; J1644